=== PATIENT | female | born 1955 | race Caucasian/White ===

== ENCOUNTER 2016-12-22 22:29 | Emergency (ER) | payer MEDICARE, OTHER ==
[~2016-12-22 22:29] MED LIST: ACET30TAB PO; ACET50TAOT PO; ALLO100T PO; ASCO500T PO; ASPI81TA21 PO; ASPI81TA85 PO; BACT800T5 PO; CETI10TA PO; CETI1SYP16 PO; CETI5TAB2 PO; CIPR500T89 PO; CYMB60CA3 PO; DIAB5TAB PO; DRIS50002 PO; DULO30CA PO; FERR325T3 PO; FLAG500T PO; FURO40TA2 PO; GABA300C3 PO; GLYB5TA PO; HEPA100SY IV; HYDROCODONE/ACETA PO; HYDROCORTISONE PR; IBUP80TA PO; INSUDET SC; INSUH10VL SC; INSUHUMDS SC; KEFL500C7 PO; LANTINJ4 SC; LEVA500T PO; LISI-538 PO; LISI-542 PO; LISI10TA4 PO; MECL-68 PO; MESA24CASA PO; METO-207 PO; NYST100024 TOP; NYST10CR TOP; OMEP20CA3 PO; OXYC1TAB23 PO; PERCOCET PO; PRAMOXINE PR; ROPI0.5T PO; ROPI1TAB PO; SALI0.9I2 IV; SIMV10TA2 PO; SIMV20TA2 PO; SIMV40TA2 PO; TRAM50TA2 PO; TYLE167L PO; TYLE1TAB5 PO; VANC10IN IV; VITA1CHW5 PO; ZYVO100T PO
[2016-12-22] MEDS ORDERED: LIDOCAINE 2% MDV 20 ML VIAL As Ordered ONE (23:43)
[2016-12-22] MEDS ORDERED: MORPHINE 4 MG/ML 1ML SYRINGE As Ordered ONE (23:43)
[2016-12-22] MEDS ORDERED: CLINDAMYCIN INJ 900MG/6ML VIAL As Ordered ONE (23:43)
[2016-12-22 23:44] LABS: BASO % 0.4 % (0.0-1.0); EOS # 0.2 K/mm3 (0.0-0.50); EOS % 2.6 % (0.0-3.0); LARGE UNSTAINED CELL # 0.2 K/mm3 (0.0-0.4); LARGE UNSTAINED CELL % 3.2 % (0.0-4.0); LYMPH # 1.6 K/mm3 (1.5-4.5); LYMPH % 25.5 % (24.0-44.0); MEAN CORPUSCULAR HEMOGLOBIN 29.6 pg (27.0-33.0); MEAN CORPUSCULAR HGB CONC 31.7 g/dl (32.0-36.5); MEAN CORPUSCULAR VOLUME 93.3 fl (80.0-96.0); MONO # 0.5 K/mm3 (0.0-0.8); MONO % 7.7 % (0.0-5.0); NEUTROPHILS # 3.7 K/mm3 (1.8-7.7); NEUTROPHILS % 60.6 % (36.0-66.0); PLATELET COUNT, AUTOMATED 119 k/mm3 (150-450); RED CELL DISTRIBUTION WIDTH 15.3 % (11.5-14.5); WHITE BLOOD COUNT 6.2 K/mm3 (4.0-10.0)
[2016-12-22] MEDS ORDERED: ONDANSETRON 4MG/2ML VIAL (J2405) As Ordered ONE (23:44)
[2016-12-23 00:09] LABS: ANION GAP 7 MEQ/L (8-16); BLOOD UREA NITROGEN 7 MG/DL (7-18); CALCIUM LEVEL 8.2 MG/DL (8.5-10.1); CARBON DIOXIDE LEVEL 29 MEQ/L (21-32); CHLORIDE LEVEL 100 MEQ/L (98-107); CREATININE FOR GFR 0.85 MG/DL (0.55-1.02); GLOMERULAR FILTRATION RATE > 60.0 (>51); SODIUM LEVEL 136 MEQ/L (136-145)
[2016-12-23 00:11] LABS: GLUCOSE, FASTING 414 MG/DL (70-105)
[2016-12-23] MEDS ORDERED: HumuLIN R (REGULAR) INSULIN (NovoLIN R) **100U/ML** PER UNIT As Ordered ONE (01:02)
--- NOTE | 2016-12-23 01:40 | EDDOCDS ---
Physician Documentation [facility] Name: Christina Ngo Age: 61 yrs Sex: Female : 1955 Arrival Date: 12/22/2016 Time: 22:29 Bed I9 Private MD: Ed Mata Disposition: 12/23/16 01:00 Discharged to Home/Self Care. Impression: Abscess of vulva, Cellulitis of abdominal wall - genital area. - Condition is Stable. - Discharge Instructions: Abscess, Cellulitis, Incision and Drainage. - Prescriptions for Clindamycin HCl 300 mg Oral Capsule - take 1 capsule by ORAL route every 6 hours; 40 capsule. [place] 5- 325 mg Oral Tablet - take 1 tablet by ORAL route every 6 hours As needed MDD: 4 tabs; 12 tablet. - Medication Reconciliation, Local Pharmacy Hours form. - Follow up: Emergency Department; When: 1 - 2 days; Reason: Recheck today's complaints, Continuance of care. - Problem is new. - Symptoms have improved. Historical: - Allergies: no known allergies; - Home Meds: 1. allopurinol 100 mg Oral tab 1 tab once daily for Gout 2. levamir 45 unit twice a day 3. lisinopril 10 mg Oral tab 1 tab once daily 4. Novolog 100 unit/mL Sub-Q soln 15 unit sliding scale 5. omeprazole 20 mg Oral cpDR 1 cap once daily ran out 6. Enbrel 25 mg (1 mL) SubQ solr 1 mL 2 times per wk - PMHx: Arthritis; Diabetes - IDDM: controlled; Diabetic Neuropathy; Diverticulitis; GERD; Gout; Hypercholesterolemia; Hypertension; restless leg syndrome; SBO; Vertigo; Psoriasis; - PSHx: Cholecystectomy; Colonoscopy; foot surgery; Tonsillectomy; Adenoidectomy; - Social history: Smoking status: Patient states former smoker of tobacco. No barriers to communication noted, The patient speaks fluent Lithuanian. - Family history: Not pertinent. - : The pt / caregiver states he / she is not on anticoagulants. Home medication list is obtained from the patient. - Exposure Risk Screening:: None identified. Vital Signs: 12/22 22:31 BP 151 / 78; Pulse 100; Resp 18 S; Temp 99.1(O); Pulse Ox 98% on R/A; Weight 93.44 kg / gr2 206 lbs (R); Height 5 ft. 4 in. (162.56 cm) (R); Pain 7/10; 12/23 01:34 BP 135 / 68; Pulse 88; Resp 18; Temp 98.7(O); Pulse Ox 95% on R/A; kmg1 12/22 22:31 Body Mass Index 35.36 (93.44 kg, 162.56 cm) gr2 Procedures: 00:05 I & D: Incision and drainage was performed for an abscess of the right vulva with mo1 surrounding STS and cellulitis, no perirectal involvement Prepped with hibiclens. Anesthetized with 2 ml's 2% Lidocaine. Incised with #11 blade. Drained large amount Loculations removed. Cultures obtained. Abscess cavity explored. Packed with iodoform gauze, the patient tolerated the procedure well. MDM: 12/22 23:03 IV Saline Lock ordered. mo1 23:03 -Blood Culture (Adults Only), peripheral from different site, or from device/port/PICC mo1 etc. if present ordered. 23:03 morphine 4 mg IVP once ordered. mo1 23:03 Clindamycin 900 mg IVPB once over 30 mins; dilute in 50mL of NS or D5W ordered. mo1 23:03 NS 0.9% 500 ml IV at bolus once ordered. mo1 23:04 CBC with Diff Ordered. EDMS 23:04 BMP Ordered. EDMS 23:05 -Blood Culture Ordered. EDMS 23:05 Wound Culture - All Other Sources Ordered. EDMS 23:13 -Blood Culture (Adults Only), peripheral from different site, or from device/port/PICC ml3 etc. if present complete. 23:14 BLOOD CULTURES Ordered. EDMS 23:23 Ondansetron 4 mg IVP once ordered. mo1 23:34 Lidocaine 20 mg/mL (2 %) 10 ml Infiltration once; to bedside ordered. mo1 12/23 00:23 Financial registration complete. hs2 00:35 BMP Reviewed. mo1 00:35 CBC with Diff Reviewed. mo1 00:40 Insulin Regular Human 5 units Sub-Q once ordered. mo1 01:19 [facility] Payment Agreement was scanned into [employer] and attached to record. hs2 Administered Medications: 00:00 Drug: morphine 4 mg [morphine 4 mg/mL intravenous cartridge (1 mL)] Route: IVP; Site: [facility] right antecubital; 00:00 Drug: Ondansetron 4 mg [ondansetron HCl 2 mg/mL intravenous solution (2 mL)] Route: kmg1 IVP; Site: right antecubital; 00:00 Drug: Lidocaine 10 ml [lidocaine 20 mg/mL (2 %) injection solution (10 mL)] {Note: By [facility] PA.} Route: Infiltration; 00:28 Drug: NS 0.9% 500 ml [sodium chloride 0.9 % intravenous solution] Route: IV; Rate: kmg1 bolus; Site: right antecubital; 00:29 Drug: Clindamycin 900 mg Route: IVPB; Infused Over: 30 mins; Site: right antecubital; [facility] 01:08 Drug: Insulin Regular Human 5 units [insulin regular human 100 unit/mL injection [facility] solution (0.05 mL)] {Co-Signature: cf2 (Darlene Hernandez RN).} Route: Sub-Q; Site: left upper arm; Signatures: Dispatcher [employer] Shira José, RN RN g1 Caleb Callaway, Metal Fabricating Inspector Unit ml3 Genevieve Calixto RN RN rs3 Juan Grant PA PA mo1 Haydee Abbasi, Reg Reg hs2 Darlene Hernandez RN cf2 The chart was reviewed and I authenticate all verbal orders and agree with the evaluation and treatment provided.Attachments: 01:19 [facility] Payment Agreement hs2 MTDD
--- NOTE | 2016-12-23 01:41 | EDDOCDS ---
Nurse's Notes [facility] Name: Christina Ngo Age: 61 yrs Sex: Female : 1955 Arrival Date: 12/22/2016 Time: 22:29 Bed I9 Private MD: Ed Mata Diagnosis: Abscess of vulva;Cellulitis of abdominal wall-genital area Presentation: 12/22 22:41 Presenting complaint: Patient states: lump on perineum since Monday. getting worse rs3 progressively, redness, swelling spread to right buttock. Adult Sepsis Screening: The patient does not have new or worsening altered mentation. Patient's respiratory rate is less than 22. Systolic blood pressure is greater than 100. Patient has a qSOFA score of 0- Negative Sepsis Screen. Suicide/Homicide risk assessment- the patient denies having any suicidal and/or homicidal ideations and does not present with any other emotional, behavioral or mental health complaints. Status: Patient is not a general service technician or dependent. Transition of care: patient was not received from another setting of care. 22:41 Acuity: MARGARITA Level 3 rs3 22:41 Method Of Arrival: Walkin/Carried/Asstd rs3 Triage Assessment: 22:46 General: Appears in no apparent distress. Pain: Location: pelvis. HIV screening NA for rs3 this visit Offered previously. Historical: - Allergies: no known allergies; - Home Meds: 1. allopurinol 100 mg Oral tab 1 tab once daily for Gout 2. levamir 45 unit twice a day 3. lisinopril 10 mg Oral tab 1 tab once daily 4. Novolog 100 unit/mL Sub-Q soln 15 unit sliding scale 5. omeprazole 20 mg Oral cpDR 1 cap once daily ran out 6. Enbrel 25 mg (1 mL) SubQ solr 1 mL 2 times per wk - PMHx: Arthritis; Diabetes - IDDM: controlled; Diabetic Neuropathy; Diverticulitis; GERD; Gout; Hypercholesterolemia; Hypertension; restless leg syndrome; SBO; Vertigo; Psoriasis; - PSHx: Cholecystectomy; Colonoscopy; foot surgery; Tonsillectomy; Adenoidectomy; - Social history: Smoking status: Patient states former smoker of tobacco. No barriers to communication noted, The patient speaks fluent Albanian. - Family history: Not pertinent. - : The pt / caregiver states he / she is not on anticoagulants. Home medication list is obtained from the patient. - Exposure Risk Screening:: None identified. Screenin/10 01:34 Screening information is obtained from the patient. Fall risk: No risks identified. kmg1 Assistance ADL's: requires no assistance with activities of daily living. Abuse/DV Screen: The patient / caregiver reports he/she is: not in a situation that causes fear, pain or injury. Nutritional screening: No deficits noted. Advance Directives: There is no active DNR order. home support is adequate. Assessment: 00:00 General: Appears in no apparent distress, comfortable, Behavior is appropriate for age, kmg1 cooperative, pleasant. Pain: Location: right labia majora Pain currently is 7 out of 10 on a pain scale. Quality of pain is described as burning, pressure, sharp, stabbing. Derm: Abscess located on right labia majora is golf ball sized. 01:34 General: Appears in no apparent distress, comfortable, Behavior is appropriate for age, kmg1 crying, pleasant. General: Peripad in place. Wound draining small amount of blood tinge drainage. Pain: Location: right labia majora Pain currently is 3 out of 10 on a pain scale. Vital Signs: 02 22:31 BP 151 / 78; Pulse 100; Resp 18 S; Temp 99.1(O); Pulse Ox 98% on R/A; Weight 93.44 kg gr2 (R); Height 5 ft. 4 in. (162.56 cm) (R); Pain 7/10; 02 01:34 BP 135 / 68; Pulse 88; Resp 18; Temp 98.7(O); Pulse Ox 95% on R/A; kmg1 12/22 22:31 Body Mass Index 35.36 (93.44 kg, 162.56 cm) gr2 Vitals: 12/22 22:31 Log In Time: December 22, 2016 at 22:31. gr2 ED Course: 22:31 Patient visited by Dc Coates. gr2 22:31 Gopi Cuadra is Private Physician. gr2 22:31 Ed Mata DO is Private Physician. gr2 22:31 Patient moved to Waiting gr2 22:36 Patient visited by Dc Coates. gr2 22:37 Patient moved to Pre RCE gr2 22:43 Triage Initiated rs3 22:47 Patient moved to Triage 3 mdr 22:47 Patient moved to Pre RCE mdr 22:48 Patient moved to Triage 3 mdr 22:51 Juan Grant PA is PHCP. mo1 22:51 Chris Ascencio DO is Attending Physician. mo1 23:01 Patient moved to I cz 23:04 Patient visited by Juan Grant PA. mo1 23:38 CBC with Diff Sent. kmg1 23:38 BMP Sent. kmg1 23:38 -Blood Culture Sent. kmg1 23:38 Inserted saline lock: 18 gauge in right antecubital area. kmg1 02 00:00 Assist provider with I & D: of an abscess on groin abscess Set up I&D tray. Performed kmg1 by Juan KILLIAN Culture sent to lab. Wound packed. iodoform gauze, Dressing with peripad Patient tolerated well. 00:13 Notified physician's operations assistant of glucose 414. cz 01:19 [facility] Payment Agreement was scanned into [employer] and attached to record. hs2 01:34 The patient / caregiver is instructed regarding the plan of care and ED course. kmg1 01:34 Discontinued lock bleeding controlled, pressure dressing applied, No redness/swelling kmg1 at site. Administered Medications: 00:00 Drug: morphine 4 mg [morphine 4 mg/mL intravenous cartridge (1 mL)] Route: IVP; Site: [facility] [place] right antecubital; 00:00 Drug: Ondansetron 4 mg [ondansetron HCl 2 mg/mL intravenous solution (2 mL)] Route: kmg1 IVP; Site: right antecubital; 00:00 Drug: Lidocaine 10 ml [lidocaine 20 mg/mL (2 %) injection solution (10 mL)] {Note: By jonathan PA.} Route: Infiltration; 00:28 Drug: NS 0.9% 500 ml [sodium chloride 0.9 % intravenous solution] Route: IV; Rate: kmg1 bolus; Site: right antecubital; 00:29 Drug: Clindamycin 900 mg Route: IVPB; Infused Over: 30 mins; Site: right antecubital; kmg1 01:08 Drug: Insulin Regular Human 5 units [insulin regular human 100 unit/mL injection kmg1 solution (0.05 mL)] {Co-Signature: cf2 (Darlene Hernandez RN).} Route: Sub-Q; Site: left upper arm; Order Results: Lab Order: CBC with Diff; SPEC'M 12/22/16 23:35 Test: WHITE BLOOD COUNT; Value: 6.2; Range: 4.0-10.0; Units: K/mm3; Status: F Test: RED BLOOD COUNT; Value: 4.20; Range: 4.00-5.40; Units: M/mm3; Status: F Test: HEMOGLOBIN; Value: 12.4; Range: 12.0-16.0; Units: g/dl; Status: F Test: HEMATOCRIT; Value: 39.2; Range: 36.0-47.0; Units: %; Status: F Test: MEAN CORPUSCULAR VOLUME; Value: 93.3; Range: 80.0-96.0; Units: fl; Status: F Test: MEAN CORPUSCULAR HEMOGLOBIN; Value: 29.6; Range: 27.0-33.0; Units: pg; Status: F Test: MEAN CORPUSCULAR HGB CONC; Value: 31.7; Range: 32.0-36.5; Abnormal: Below low normal; Units: g/dl; Status: F Test: RED CELL DISTRIBUTION WIDTH; Value: 15.3; Range: 11.5-14.5; Abnormal: Above high normal; Units: %; Status: F Test: PLATELET COUNT, AUTOMATED; Value: 119; Range: 150-450; Abnormal: Below low normal; Units: k/mm3; Status: F Test: NEUTROPHILS %; Value: 60.6; Range: 36.0-66.0; Units: %; Status: F Test: LYMPH %; Value: 25.5; Range: 24.0-44.0; Units: %; Status: F Test: MONO %; Value: 7.7; Range: 0.0-5.0; Abnormal: Above high normal; Units: %; Status: F Test: EOS %; Value: 2.6; Range: 0.0-3.0; Units: %; Status: F Test: BASO %; Value: 0.4; Range: 0.0-1.0; Units: %; Status: F Test: LARGE UNSTAINED CELL %; Value: 3.2; Range: 0.0-4.0; Units: %; Status: F Test: NEUTROPHILS #; Value: 3.7; Range: 1.8-7.7; Units: K/mm3; Status: F Test: LYMPH #; Value: 1.6; Range: 1.5-4.5; Units: K/mm3; Status: F Test: MONO #; Value: 0.5; Range: 0.0-0.8; Units: K/mm3; Status: F Test: EOS #; Value: 0.2; Range: 0.0-0.50; Units: K/mm3; Status: F Test: BASO #; Value: 0.0; Range: 0.0-0.2; Units: K/mm3; Status: F Test: LARGE UNSTAINED CELL #; Value: 0.2; Range: 0.0-0.4; Units: K/mm3; Status: F Lab Order: [facility]; SPEC'M 12/22/16 23:35 Test: GLUCOSE, FASTING; Value: 414; Range: 70-105; Abnormal: Above upper panic limits; Units: MG/DL; Status: F Test: BLOOD UREA NITROGEN; Value: 7; Range: 7-18; Units: MG/DL; Status: F Test: CREATININE FOR GFR; Value: 0.85; Range: 0.55-1.02; Units: MG/DL; Status: F Test: GLOMERULAR FILTRATION RATE; Value: > 60.0; Range: >51; Status: F Test: SODIUM LEVEL; Value: 136; Range: 136-145; Units: MEQ/L; Status: F Test: POTASSIUM SERUM; Value: 4.0; Range: 3.5-5.1; Units: MEQ/L; Status: F Test: CHLORIDE LEVEL; Value: 100; Range: 98-107; Units: MEQ/L; Status: F Test: CARBON DIOXIDE LEVEL; Value: 29; Range: 21-32; Units: MEQ/L; Status: F Test: ANION GAP; Value: 7; Range: 8-16; Abnormal: Below low normal; Units: MEQ/L; Status: F Test: CALCIUM LEVEL; Value: 8.2; Range: 8.5-10.1; Abnormal: Below low normal; Units: MG/DL; Status: F Test Note: ; Units are mL/min/1.73 m2 Chronic Kidney Disease Staging per NKF: Stage I & II GFR >=60 Normal to Mildly Decreased Stage III GFR 30-59 Moderately Decreased Stage IV GFR 15-29 Severely Decreased Stage V GFR <15 Very Little GFR Left ESRD GFR <15 on TOP FORMER Outcome: 01:00 Discharge ordered by Provider. mo1 01:34 Discharge Assessment: Patient awake, alert and oriented x 3. No cognitive and/or kmg1 functional deficits noted. Patient verbalized understanding of disposition instructions. Patient awake and alert. patient administered narcotics - yes. Pt provided with safe discharge. The following High Risk Discharge criteria are identified: None. Discharged to home ambulatory, with friend. Condition: stable. Discharge instructions given to patient, Instructed on discharge instructions, follow up and referral plans. medication usage, Use of warm compresses to the affected area, Demonstrated understanding of instructions, medications, Pt was receptive of discharge instructions/ teaching. Prescriptions given X 2. No special radiology studies were completed. Property sent home with patient. 01:39 Patient left the ED. [facility] [place] Signatures: Shira Grider, RN RN kmg1 Matthias Man, RN RN Genevieve Chaves RN RN rs3 Dc Coates gr2 Juan Grant PA PA mo1 Caden Zaragoza, CHERYL WINDMILL MECHANIC Haydee Alexandre, Ernst Reg hs2 Darlene Hernandez RN cf2 MTDD
--- NOTE | 2016-12-25 02:41 | EDDOCDS ---
Physician Documentation [facility] Name: Christina Ngo Age: 61 yrs Sex: Female : 1955 Arrival Date: 12/22/2016 Time: 22:29 Bed I9 Private MD: Ed Mata Disposition: 12/23/16 01:00 Discharged to Home/Self Care. Impression: Abscess of vulva, Cellulitis of abdominal wall - genital area. - Condition is Stable. - Discharge Instructions: Abscess, Cellulitis, Incision and Drainage. - Prescriptions for Clindamycin HCl 300 mg Oral Capsule - take 1 capsule by ORAL route every 6 hours; 40 capsule. [place] 5- 325 mg Oral Tablet - take 1 tablet by ORAL route every 6 hours As needed MDD: 4 tabs; 12 tablet. - Medication Reconciliation, Local Pharmacy Hours form. - Follow up: Emergency Department; When: 1 - 2 days; Reason: Recheck today's complaints, Continuance of care. - Problem is new. - Symptoms have improved. Historical: - Allergies: no known allergies; - Home Meds: 1. allopurinol 100 mg Oral tab 1 tab once daily for Gout 2. levamir 45 unit twice a day 3. lisinopril 10 mg Oral tab 1 tab once daily 4. Novolog 100 unit/mL Sub-Q soln 15 unit sliding scale 5. omeprazole 20 mg Oral cpDR 1 cap once daily ran out 6. Enbrel 25 mg (1 mL) SubQ solr 1 mL 2 times per wk - PMHx: Arthritis; Diabetes - IDDM: controlled; Diabetic Neuropathy; Diverticulitis; GERD; Gout; Hypercholesterolemia; Hypertension; restless leg syndrome; SBO; Vertigo; Psoriasis; - PSHx: Cholecystectomy; Colonoscopy; foot surgery; Tonsillectomy; Adenoidectomy; - Social history: Smoking status: Patient states former smoker of tobacco. No barriers to communication noted, The patient speaks fluent Kazakh. - Family history: Not pertinent. - : The pt / caregiver states he / she is not on anticoagulants. Home medication list is obtained from the patient. - Exposure Risk Screening:: None identified. Vital Signs: 12/22 22:31 BP 151 / 78; Pulse 100; Resp 18 S; Temp 99.1(O); Pulse Ox 98% on R/A; Weight 93.44 kg / gr2 206 lbs (R); Height 5 ft. 4 in. (162.56 cm) (R); Pain 7/10; 12/23 01:34 BP 135 / 68; Pulse 88; Resp 18; Temp 98.7(O); Pulse Ox 95% on R/A; kmg1 12/22 22:31 Body Mass Index 35.36 (93.44 kg, 162.56 cm) gr2 Procedures: 00:05 I & D: Incision and drainage was performed for an abscess of the right vulva with mo1 surrounding STS and cellulitis, no perirectal involvement Prepped with hibiclens. Anesthetized with 2 ml's 2% Lidocaine. Incised with #11 blade. Drained large amount Loculations removed. Cultures obtained. Abscess cavity explored. Packed with iodoform gauze, the patient tolerated the procedure well. MDM: 12/22 23:03 IV Saline Lock ordered. mo1 23:03 -Blood Culture (Adults Only), peripheral from different site, or from device/port/PICC mo1 etc. if present ordered. 23:03 morphine 4 mg IVP once ordered. mo1 23:03 Clindamycin 900 mg IVPB once over 30 mins; dilute in 50mL of NS or D5W ordered. mo1 23:03 NS 0.9% 500 ml IV at bolus once ordered. mo1 23:04 CBC with Diff Ordered. EDMS 23:04 BMP Ordered. EDMS 23:05 -Blood Culture Ordered. EDMS 23:05 Wound Culture - All Other Sources Ordered. EDMS 23:13 -Blood Culture (Adults Only), peripheral from different site, or from device/port/PICC ml3 etc. if present complete. 23:14 BLOOD CULTURES Ordered. EDMS 23:23 Ondansetron 4 mg IVP once ordered. mo1 23:34 Lidocaine 20 mg/mL (2 %) 10 ml Infiltration once; to bedside ordered. mo1 12/23 00:23 Financial registration complete. hs2 00:35 BMP Reviewed. mo1 00:35 CBC with Diff Reviewed. mo1 00:40 Insulin Regular Human 5 units Sub-Q once ordered. mo1 01:19 [facility] [place] Payment Agreement was scanned into [employer] and attached to record. hs2 09:49 T-Sheet-- Draft Copy was scanned into [employer] and attached to record. gb 12/24 20:58 [facility] Payment Agreement was scanned into [employer] and attached to record. [email or web address] Administered Medications: 12/23 00:00 Drug: morphine 4 mg [morphine 4 mg/mL intravenous cartridge (1 mL)] Route: IVP; [place] [facility] [place]; 00:00 Drug: Ondansetron 4 mg [ondansetron HCl 2 mg/mL intravenous solution (2 mL)] Route: kmg1 IVP; Site: right antecubital; 00:00 Drug: Lidocaine 10 ml [lidocaine 20 mg/mL (2 %) injection solution (10 mL)] {Note: [place] [facility] [place] Route: Infiltration; 00:28 Drug: NS 0.9% 500 ml [sodium chloride 0.9 % intravenous solution] Route: IV; Rate: kmg1 bolus; Site: right antecubital; 00:29 Drug: Clindamycin 900 mg Route: IVPB; Infused Over: 30 mins; Site: right antecubital; [facility] [place]:08 Drug: Insulin Regular Human 5 units [insulin regular human 100 unit/mL injection [facility] solution (0.05 mL)] {Co-Signature: cf2 (Darlene Hernandez RN).} Route: Sub-Q; Site: left upper arm; Signatures: Dispatcher [employer] Shira José RN RN kmg1 Em Hidalgo, Reg Reg gb CesiaJaneneMaricel, Rail Washer Unit ml3 Genevieve Calixto RN RN rs3 Juan Grant PA PA mo1 Nirmala Anand, Reg Reg ks16 Haydee Abbasi, Reg Reg hs2 Darlene Hernandez RN cf2 The chart was reviewed and I authenticate all verbal orders and agree with the evaluation and treatment provided.Attachments: 01:19 [facility] [place] Payment Agreement hs2 09:49 T-Sheet-- Draft Copy 12/24 20:58 [facility] Payment Agreement [email or web address] Chart Complete MTDD
--- NOTE | 2016-12-25 02:41 | EDDOCDS ---
Physician Documentation [facility] Name: Christina Ngo Age: 61 yrs Sex: Female : 1955 Arrival Date: 12/22/2016 Time: 22:29 Bed I9 Private MD: Ed Mata Disposition: 12/23/16 01:00 Discharged to Home/Self Care. Impression: Abscess of vulva, Cellulitis of abdominal wall - genital area. - Condition is Stable. - Discharge Instructions: Abscess, Cellulitis, Incision and Drainage. - Prescriptions for Clindamycin HCl 300 mg Oral Capsule - take 1 capsule by ORAL route every 6 hours; 40 capsule. [place] 5- 325 mg Oral Tablet - take 1 tablet by ORAL route every 6 hours As needed MDD: 4 tabs; 12 tablet. - Medication Reconciliation, Local Pharmacy Hours form. - Follow up: Emergency Department; When: 1 - 2 days; Reason: Recheck today's complaints, Continuance of care. - Problem is new. - Symptoms have improved. Historical: - Allergies: no known allergies; - Home Meds: 1. allopurinol 100 mg Oral tab 1 tab once daily for Gout 2. levamir 45 unit twice a day 3. lisinopril 10 mg Oral tab 1 tab once daily 4. Novolog 100 unit/mL Sub-Q soln 15 unit sliding scale 5. omeprazole 20 mg Oral cpDR 1 cap once daily ran out 6. Enbrel 25 mg (1 mL) SubQ solr 1 mL 2 times per wk - PMHx: Arthritis; Diabetes - IDDM: controlled; Diabetic Neuropathy; Diverticulitis; GERD; Gout; Hypercholesterolemia; Hypertension; restless leg syndrome; SBO; Vertigo; Psoriasis; - PSHx: Cholecystectomy; Colonoscopy; foot surgery; Tonsillectomy; Adenoidectomy; - Social history: Smoking status: Patient states former smoker of tobacco. No barriers to communication noted, The patient speaks fluent Macedonian. - Family history: Not pertinent. - : The pt / caregiver states he / she is not on anticoagulants. Home medication list is obtained from the patient. - Exposure Risk Screening:: None identified. Vital Signs: 12/22 22:31 BP 151 / 78; Pulse 100; Resp 18 S; Temp 99.1(O); Pulse Ox 98% on R/A; Weight 93.44 kg / gr2 206 lbs (R); Height 5 ft. 4 in. (162.56 cm) (R); Pain 7/10; 12/23 01:34 BP 135 / 68; Pulse 88; Resp 18; Temp 98.7(O); Pulse Ox 95% on R/A; kmg1 12/22 22:31 Body Mass Index 35.36 (93.44 kg, 162.56 cm) gr2 Procedures: 00:05 I & D: Incision and drainage was performed for an abscess of the right vulva with mo1 surrounding STS and cellulitis, no perirectal involvement Prepped with hibiclens. Anesthetized with 2 ml's 2% Lidocaine. Incised with #11 blade. Drained large amount Loculations removed. Cultures obtained. Abscess cavity explored. Packed with iodoform gauze, the patient tolerated the procedure well. MDM: 12/22 23:03 IV Saline Lock ordered. mo1 23:03 -Blood Culture (Adults Only), peripheral from different site, or from device/port/PICC mo1 etc. if present ordered. 23:03 morphine 4 mg IVP once ordered. mo1 23:03 Clindamycin 900 mg IVPB once over 30 mins; dilute in 50mL of NS or D5W ordered. mo1 23:03 NS 0.9% 500 ml IV at bolus once ordered. mo1 23:04 CBC with Diff Ordered. EDMS 23:04 BMP Ordered. EDMS 23:05 -Blood Culture Ordered. EDMS 23:05 Wound Culture - All Other Sources Ordered. EDMS 23:13 -Blood Culture (Adults Only), peripheral from different site, or from device/port/PICC ml3 etc. if present complete. 23:14 BLOOD CULTURES Ordered. EDMS 23:23 Ondansetron 4 mg IVP once ordered. mo1 23:34 Lidocaine 20 mg/mL (2 %) 10 ml Infiltration once; to bedside ordered. mo1 12/23 00:23 Financial registration complete. hs2 00:35 BMP Reviewed. mo1 00:35 CBC with Diff Reviewed. mo1 00:40 Insulin Regular Human 5 units Sub-Q once ordered. mo1 01:19 [facility] [place] Payment Agreement was scanned into [employer] and attached to record. hs2 09:49 T-Sheet-- Draft Copy was scanned into [employer] and attached to record. gb 12/24 20:58 [facility] Payment Agreement was scanned into [employer] and attached to record. [email or web address] Administered Medications: 12/23 00:00 Drug: morphine 4 mg [morphine 4 mg/mL intravenous cartridge (1 mL)] Route: IVP; [place] [facility] [place]; 00:00 Drug: Ondansetron 4 mg [ondansetron HCl 2 mg/mL intravenous solution (2 mL)] Route: kmg1 IVP; Site: right antecubital; 00:00 Drug: Lidocaine 10 ml [lidocaine 20 mg/mL (2 %) injection solution (10 mL)] {Note: [place] [facility] [place] Route: Infiltration; 00:28 Drug: NS 0.9% 500 ml [sodium chloride 0.9 % intravenous solution] Route: IV; Rate: kmg1 bolus; Site: right antecubital; 00:29 Drug: Clindamycin 900 mg Route: IVPB; Infused Over: 30 mins; Site: right antecubital; [facility] [place]:08 Drug: Insulin Regular Human 5 units [insulin regular human 100 unit/mL injection [facility] [place] (0.05 mL)] {Co-Signature: cf2 (Darlene Hernandez RN).} Route: Sub-Q; Site: left upper arm; Signatures: Dispatcher [employer] Shira José RN RN kmg1 Em Hidalgo, Reg Reg gb CesiaJaneneMaricel, Petroleum Products Sales Representative Unit ml3 Genevieve Calixto RN RN rs3 Juan Grant PA PA mo1 Nirmala Anand, Reg Reg ks16 Haydee Abbasi, Reg Reg hs2 Darlene Hernandez RN cf2 The chart was reviewed and I authenticate all verbal orders and agree with the evaluation and treatment provided.Attachments: 01:19 [facility] [place] [facility] Payment Agreement hs2 09:49 T-Sheet-- Draft Copy 12/24 20:58 [facility] Payment Agreement [email or web address] Chart Complete MTDD
--- NOTE | 2016-12-25 02:41 | EDDOCDS ---
Nurse's Notes [facility] Name: Christina Ngo Age: 61 yrs Sex: Female : 1955 Arrival Date: 12/22/2016 Time: 22:29 Bed I9 Private MD: Ed Mata Diagnosis: Abscess of vulva;Cellulitis of abdominal wall-genital area Presentation: 12/22 22:41 Presenting complaint: Patient states: lump on perineum since Monday. getting worse rs3 progressively, redness, swelling spread to right buttock. Adult Sepsis Screening: The patient does not have new or worsening altered mentation. Patient's respiratory rate is less than 22. Systolic blood pressure is greater than 100. Patient has a qSOFA score of 0- Negative Sepsis Screen. Suicide/Homicide risk assessment- the patient denies having any suicidal and/or homicidal ideations and does not present with any other emotional, behavioral or mental health complaints. Status: Patient is not a street light servicer helper or dependent. Transition of care: patient was not received from another setting of care. 22:41 Acuity: MARGARITA Level 3 rs3 22:41 Method Of Arrival: Walkin/Carried/Asstd rs3 Triage Assessment: 22:46 General: Appears in no apparent distress. Pain: Location: pelvis. HIV screening NA for rs3 this visit Offered previously. Historical: - Allergies: no known allergies; - Home Meds: 1. allopurinol 100 mg Oral tab 1 tab once daily for Gout 2. levamir 45 unit twice a day 3. lisinopril 10 mg Oral tab 1 tab once daily 4. Novolog 100 unit/mL Sub-Q soln 15 unit sliding scale 5. omeprazole 20 mg Oral cpDR 1 cap once daily ran out 6. Enbrel 25 mg (1 mL) SubQ solr 1 mL 2 times per wk - PMHx: Arthritis; Diabetes - IDDM: controlled; Diabetic Neuropathy; Diverticulitis; GERD; Gout; Hypercholesterolemia; Hypertension; restless leg syndrome; SBO; Vertigo; Psoriasis; - PSHx: Cholecystectomy; Colonoscopy; foot surgery; Tonsillectomy; Adenoidectomy; - Social history: Smoking status: Patient states former smoker of tobacco. No barriers to communication noted, The patient speaks fluent Belarusian. - Family history: Not pertinent. - : The pt / caregiver states he / she is not on anticoagulants. Home medication list is obtained from the patient. - Exposure Risk Screening:: None identified. Screenin/10 01:34 Screening information is obtained from the patient. Fall risk: No risks identified. kmg1 Assistance ADL's: requires no assistance with activities of daily living. Abuse/DV Screen: The patient / caregiver reports he/she is: not in a situation that causes fear, pain or injury. Nutritional screening: No deficits noted. Advance Directives: There is no active DNR order. home support is adequate. Assessment: 00:00 General: Appears in no apparent distress, comfortable, Behavior is appropriate for age, kmg1 cooperative, pleasant. Pain: Location: right labia majora Pain currently is 7 out of 10 on a pain scale. Quality of pain is described as burning, pressure, sharp, stabbing. Derm: Abscess located on right labia majora is golf ball sized. 01:34 General: Appears in no apparent distress, comfortable, Behavior is appropriate for age, kmg1 crying, pleasant. General: Peripad in place. Wound draining small amount of blood tinge drainage. Pain: Location: right labia majora Pain currently is 3 out of 10 on a pain scale. Vital Signs: 02 22:31 BP 151 / 78; Pulse 100; Resp 18 S; Temp 99.1(O); Pulse Ox 98% on R/A; Weight 93.44 kg gr2 (R); Height 5 ft. 4 in. (162.56 cm) (R); Pain 7/10; 02 01:34 BP 135 / 68; Pulse 88; Resp 18; Temp 98.7(O); Pulse Ox 95% on R/A; kmg1 12/22 22:31 Body Mass Index 35.36 (93.44 kg, 162.56 cm) gr2 Vitals: 12/22 22:31 Log In Time: December 22, 2016 at 22:31. gr2 ED Course: 22:31 Patient visited by Dc Coates. gr2 22:31 Gopi Cuadra is Private Physician. gr2 22:31 Ed Mata DO is Private Physician. gr2 22:31 Patient moved to Waiting gr2 22:36 Patient visited by Dc Coates. gr2 22:37 Patient moved to Pre RCE gr2 22:43 Triage Initiated rs3 22:47 Patient moved to Triage 3 mdr 22:47 Patient moved to Pre RCE mdr 22:48 Patient moved to Triage 3 mdr 22:51 Juan Grant PA is PHCP. mo1 22:51 Chris Ascencio DO is Attending Physician. mo1 23:01 Patient moved to I9 / cz 23:04 Patient visited by Juan Grant PA. mo1 23:38 CBC with Diff Sent. kmg1 23:38 BMP Sent. kmg1 23:38 -Blood Culture Sent. kmg1 23:38 Inserted saline lock: 18 gauge in right antecubital area. kmg1 12/23 00:00 Assist provider with I & D: of an abscess on groin abscess Set up I&D tray. Performed kmg1 by Juan KILLIAN Culture sent to lab. Wound packed. iodoform gauze, Dressing with peripad Patient tolerated well. 00:13 Notified physician's registered sales assistant of glucose 414. cz 01:19 [facility] [place] was scanned into [employer] and attached to record. hs2 01:34 The patient / caregiver is instructed regarding the plan of care and ED course. kmg1 01:34 Discontinued lock bleeding controlled, pressure dressing applied, No redness/swelling kmg1 at site. 09:49 T-Sheet-- Draft Copy was scanned into [employer] and attached to record. gb 02 20:58 [facility] [place] Agreement was scanned into [employer] and attached to record. [email or web address] Administered Medications: 12/23 00:00 Drug: morphine 4 mg [morphine 4 mg/mL intravenous cartridge (1 mL)] Route: IVP; Site: kmg1 right antecubital; 00:00 Drug: Ondansetron 4 mg [ondansetron HCl 2 mg/mL intravenous solution (2 mL)] Route: kmg1 IVP; Site: right antecubital; 00:00 Drug: Lidocaine 10 ml [lidocaine 20 mg/mL (2 %) injection solution (10 mL)] {Note: By evelina KILLIAN.} Route: Infiltration; 00:28 Drug: NS 0.9% 500 ml [sodium chloride 0.9 % intravenous solution] Route: IV; Rate: kmg1 bolus; Site: right antecubital; 00:29 Drug: Clindamycin 900 mg Route: IVPB; Infused Over: 30 mins; Site: right antecubital; kmg1 01:08 Drug: Insulin Regular Human 5 units [insulin regular human 100 unit/mL injection kmg1 solution (0.05 mL)] {Co-Signature: cf2 (Darlene Hernandez RN).} Route: Sub-Q; Site: left upper arm; Order Results: Lab Order: CBC with Diff; SPEC'M 12/22/16 23:35 Test: WHITE BLOOD COUNT; Value: 6.2; Range: 4.0-10.0; Units: K/mm3; Status: F Test: RED BLOOD COUNT; Value: 4.20; Range: 4.00-5.40; Units: M/mm3; Status: F Test: HEMOGLOBIN; Value: 12.4; Range: 12.0-16.0; Units: g/dl; Status: F Test: HEMATOCRIT; Value: 39.2; Range: 36.0-47.0; Units: %; Status: F Test: MEAN CORPUSCULAR VOLUME; Value: 93.3; Range: 80.0-96.0; Units: fl; Status: F Test: MEAN CORPUSCULAR HEMOGLOBIN; Value: 29.6; Range: 27.0-33.0; Units: pg; Status: F Test: MEAN CORPUSCULAR HGB CONC; Value: 31.7; Range: 32.0-36.5; Abnormal: Below low normal; Units: g/dl; Status: F Test: RED CELL DISTRIBUTION WIDTH; Value: 15.3; Range: 11.5-14.5; Abnormal: Above high normal; Units: %; Status: F Test: PLATELET COUNT, AUTOMATED; Value: 119; Range: 150-450; Abnormal: Below low normal; Units: k/mm3; Status: F Test: NEUTROPHILS %; Value: 60.6; Range: 36.0-66.0; Units: %; Status: F Test: LYMPH %; Value: 25.5; Range: 24.0-44.0; Units: %; Status: F Test: MONO %; Value: 7.7; Range: 0.0-5.0; Abnormal: Above high normal; Units: %; Status: F Test: EOS %; Value: 2.6; Range: 0.0-3.0; Units: %; Status: F Test: BASO %; Value: 0.4; Range: 0.0-1.0; Units: %; Status: F Test: LARGE UNSTAINED CELL %; Value: 3.2; Range: 0.0-4.0; Units: %; Status: F Test: NEUTROPHILS #; Value: 3.7; Range: 1.8-7.7; Units: K/mm3; Status: F Test: LYMPH #; Value: 1.6; Range: 1.5-4.5; Units: K/mm3; Status: F Test: MONO #; Value: 0.5; Range: 0.0-0.8; Units: K/mm3; Status: F Test: EOS #; Value: 0.2; Range: 0.0-0.50; Units: K/mm3; Status: F Test: BASO #; Value: 0.0; Range: 0.0-0.2; Units: K/mm3; Status: F Test: LARGE UNSTAINED CELL #; Value: 0.2; Range: 0.0-0.4; Units: K/mm3; Status: F Lab Order: [facility]; SPEC'M 12/22/16 23:35 Test: GLUCOSE, FASTING; Value: 414; Range: 70-105; Abnormal: Above upper panic limits; Units: MG/DL; Status: F Test: BLOOD UREA NITROGEN; Value: 7; Range: 7-18; Units: MG/DL; Status: F Test: CREATININE FOR GFR; Value: 0.85; Range: 0.55-1.02; Units: MG/DL; Status: F Test: GLOMERULAR FILTRATION RATE; Value: > 60.0; Range: >51; Status: F Test: SODIUM LEVEL; Value: 136; Range: 136-145; Units: MEQ/L; Status: F Test: POTASSIUM SERUM; Value: 4.0; Range: 3.5-5.1; Units: MEQ/L; Status: F Test: CHLORIDE LEVEL; Value: 100; Range: 98-107; Units: MEQ/L; Status: F Test: CARBON DIOXIDE LEVEL; Value: 29; Range: 21-32; Units: MEQ/L; Status: F Test: ANION GAP; Value: 7; Range: 8-16; Abnormal: Below low normal; Units: MEQ/L; Status: F Test: CALCIUM LEVEL; Value: 8.2; Range: 8.5-10.1; Abnormal: Below low normal; Units: MG/DL; Status: F Test Note: ; Units are mL/min/1.73 m2 Chronic Kidney Disease Staging per NKF: Stage I & II GFR >=60 Normal to Mildly Decreased Stage III GFR 30-59 Moderately Decreased Stage IV GFR 15-29 Severely Decreased Stage V GFR <15 Very Little GFR Left ESRD GFR <15 on FOOD HANDLER Lab Order: -Blood Culture; SPEC'M 12/22/16 23:35 Test: BLOOD CULTURE; Value: No growth after 24 hours . All specimens observed; Status: F Test: BLOOD CULTURE; Value: for 5 days. Results final at that time.; Status: F Test: BLOOD CULTURE; Value: No Growth after 48 hours. All Specimens observed; Status: F Test: BLOOD CULTURE; Value: for 7 days. Results final at that time.; Status: F Lab Order: Wound Culture - All Other Sources; SPEC'M 12/23/16 00:13 Test: WOUND CULTURE; Value: <EXTERNAL COMMENT eCWMed> FULL REPORT IN LAB NOTES (eCW and Medent).; Status: F Test: WOUND CULTURE; Value: ORGANISM 1: STAPHYLOCOCCUS AUREUS; Status: F Test: WOUND CULTURE; Value: STAPHYLOCOCCUS AUREUS; Status: F Test: WOUND CULTURE; Value: QUANTITY OF GROWTH HEAVY; Status: F Lab Order: BLOOD CULTURES; SPEC'M 12/23/16 00:13 Test: BLOOD CULTURE; Value: No growth after 24 hours . All specimens observed; Status: F Test: BLOOD CULTURE; Value: for 5 days. Results final at that time.; Status: F Test: BLOOD CULTURE; Value: No Growth after 48 hours. All Specimens observed; Status: F Test: BLOOD CULTURE; Value: for 7 days. Results final at that time.; Status: F Outcome: 01:00 Discharge ordered by Provider. mo1 01:34 Discharge Assessment: Patient awake, alert and oriented x 3. No cognitive and/or kmg1 functional deficits noted. Patient verbalized understanding of disposition instructions. Patient awake and alert. patient administered narcotics - yes. Pt provided with safe discharge. The following High Risk Discharge criteria are identified: None. Discharged to home ambulatory, with friend. Condition: stable. Discharge instructions given to patient, Instructed on discharge instructions, follow up and referral plans. medication usage, Use of warm compresses to the affected area, Demonstrated understanding of instructions, medications, Pt was receptive of discharge instructions/ teaching. Prescriptions given X 2. No special radiology studies were completed. Property sent home with patient. 01:39 [place] [facility] [place] Signatures: Shira Grider RN RN kmg1 Matthias Man RN RN cz Em Hidalgo, Reg Reg gb Genevieve Calixto RN RN rs3 Dc Coates gr2 Juan Grant PA PA mo1 Caden Zaragoza, LINK MACHINE OPERATOR LINK MACHINE OPERATOR Nirmala Rivera, Reg Reg ks16 Haydee Abbasi, Reg Reg hs2 Darlene Hernandez RN cf2 Chart Complete MTDD
--- NOTE | 2016-12-25 17:39 | EDDOCDS ---
Physician Documentation [facility] Name: Christina Ngo Age: 61 yrs Sex: Female : 1955 Arrival Date: 12/22/2016 Time: 22:29 Bed I9 Private MD: Ed Mata Disposition: 12/23/16 01:00 Discharged to Home/Self Care. Impression: Abscess of vulva, Cellulitis of abdominal wall - genital area. - Condition is Stable. - Discharge Instructions: Abscess, Cellulitis, Incision and Drainage. - Prescriptions for Clindamycin HCl 300 mg Oral Capsule - take 1 capsule by ORAL route every 6 hours; 40 capsule. [place] 5- 325 mg Oral Tablet - take 1 tablet by ORAL route every 6 hours As needed MDD: 4 tabs; 12 tablet. - Medication Reconciliation, Local Pharmacy Hours form. - Follow up: Emergency Department; When: 1 - 2 days; Reason: Recheck today's complaints, Continuance of care. - Problem is new. - Symptoms have improved. Historical: - Allergies: no known allergies; - Home Meds: 1. allopurinol 100 mg Oral tab 1 tab once daily for Gout 2. levamir 45 unit twice a day 3. lisinopril 10 mg Oral tab 1 tab once daily 4. Novolog 100 unit/mL Sub-Q soln 15 unit sliding scale 5. omeprazole 20 mg Oral cpDR 1 cap once daily ran out 6. Enbrel 25 mg (1 mL) SubQ solr 1 mL 2 times per wk - PMHx: Arthritis; Diabetes - IDDM: controlled; Diabetic Neuropathy; Diverticulitis; GERD; Gout; Hypercholesterolemia; Hypertension; restless leg syndrome; SBO; Vertigo; Psoriasis; - PSHx: Cholecystectomy; Colonoscopy; foot surgery; Tonsillectomy; Adenoidectomy; - Social history: Smoking status: Patient states former smoker of tobacco. No barriers to communication noted, The patient speaks fluent Georgian. - Family history: Not pertinent. - : The pt / caregiver states he / she is not on anticoagulants. Home medication list is obtained from the patient. - Exposure Risk Screening:: None identified. Vital Signs: 12/22 22:31 BP 151 / 78; Pulse 100; Resp 18 S; Temp 99.1(O); Pulse Ox 98% on R/A; Weight 93.44 kg / gr2 206 lbs (R); Height 5 ft. 4 in. (162.56 cm) (R); Pain 7/10; 12/23 01:34 BP 135 / 68; Pulse 88; Resp 18; Temp 98.7(O); Pulse Ox 95% on R/A; kmg1 12/22 22:31 Body Mass Index 35.36 (93.44 kg, 162.56 cm) gr2 Procedures: 00:05 I & D: Incision and drainage was performed for an abscess of the right vulva with mo1 surrounding STS and cellulitis, no perirectal involvement Prepped with hibiclens. Anesthetized with 2 ml's 2% Lidocaine. Incised with #11 blade. Drained large amount Loculations removed. Cultures obtained. Abscess cavity explored. Packed with iodoform gauze, the patient tolerated the procedure well. MDM: 12/22 23:03 IV Saline Lock ordered. mo1 23:03 -Blood Culture (Adults Only), peripheral from different site, or from device/port/PICC mo1 etc. if present ordered. 23:03 morphine 4 mg IVP once ordered. mo1 23:03 Clindamycin 900 mg IVPB once over 30 mins; dilute in 50mL of NS or D5W ordered. mo1 23:03 NS 0.9% 500 ml IV at bolus once ordered. mo1 23:04 CBC with Diff Ordered. EDMS 23:04 BMP Ordered. EDMS 23:05 -Blood Culture Ordered. EDMS 23:05 Wound Culture - All Other Sources Ordered. EDMS 23:13 -Blood Culture (Adults Only), peripheral from different site, or from device/port/PICC ml3 etc. if present complete. 23:14 BLOOD CULTURES Ordered. EDMS 23:23 Ondansetron 4 mg IVP once ordered. mo1 23:34 Lidocaine 20 mg/mL (2 %) 10 ml Infiltration once; to bedside ordered. mo1 12/23 00:23 Financial registration complete. hs2 00:35 BMP Reviewed. mo1 00:35 CBC with Diff Reviewed. mo1 00:40 Insulin Regular Human 5 units Sub-Q once ordered. mo1 01:19 [facility] Payment Agreement was scanned into [employer] and attached to record. hs2 09:49 T-Sheet-- Draft Copy was scanned into [employer] and attached to record. gb 12/24 20:58 [facility] Payment Agreement was scanned into [employer] and attached to record. [email or web address] Administered Medications: 12/23 00:00 Drug: morphine 4 mg [morphine 4 mg/mL intravenous cartridge (1 mL)] Route: IVP; Site: [facility] [place] right antecubital; 00:00 Drug: Ondansetron 4 mg [ondansetron HCl 2 mg/mL intravenous solution (2 mL)] Route: kmg1 IVP; Site: right antecubital; 00:00 Drug: Lidocaine 10 ml [lidocaine 20 mg/mL (2 %) injection solution (10 mL)] {Note: By [facility] [place].} Route: Infiltration; 00:28 Drug: NS 0.9% 500 ml [sodium chloride 0.9 % intravenous solution] Route: IV; Rate: kmg1 bolus; Site: right antecubital; 00:29 Drug: Clindamycin 900 mg Route: IVPB; Infused Over: 30 mins; Site: right antecubital; [facility] 01:08 Drug: Insulin Regular Human 5 units [insulin regular human 100 unit/mL injection [facility] solution (0.05 mL)] {Co-Signature: cf2 (Darlene Hernandez RN).} Route: Sub-Q; Site: left upper arm; Signatures: Dispatcher [employer] Shira José RN RN kmg1 Em Hidalgo, Reg Reg gb CesiaJaneneMaricel, Manager Pe Unit ml3 Genevieve Calixto RN RN rs3 Juan Grant PA PA mo1 Nirmala Anand, Reg Reg ks16 Haydee Abbasi, Reg Reg hs2 Darlene Hernandez RN cf2 The chart was reviewed and I authenticate all verbal orders and agree with the evaluation and treatment provided.Attachments: 01:19 [facility] Payment Agreement hs2 09:49 T-Sheet-- Draft Copy 12/24 20:58 [facility] Payment Agreement [email or web address] Chart Complete MTDD
--- NOTE | 2016-12-25 17:39 | EDDOCDS ---
Physician Documentation [facility] Name: Christina Ngo Age: 61 yrs Sex: Female : 1955 Arrival Date: 12/22/2016 Time: 22:29 Bed I9 Private MD: Ed Mata Disposition: 12/23/16 01:00 Discharged to Home/Self Care. Impression: Abscess of vulva, Cellulitis of abdominal wall - genital area. - Condition is Stable. - Discharge Instructions: Abscess, Cellulitis, Incision and Drainage. - Prescriptions for Clindamycin HCl 300 mg Oral Capsule - take 1 capsule by ORAL route every 6 hours; 40 capsule. [place] 5- 325 mg Oral Tablet - take 1 tablet by ORAL route every 6 hours As needed MDD: 4 tabs; 12 tablet. - Medication Reconciliation, Local Pharmacy Hours form. - Follow up: Emergency Department; When: 1 - 2 days; Reason: Recheck today's complaints, Continuance of care. - Problem is new. - Symptoms have improved. Historical: - Allergies: no known allergies; - Home Meds: 1. allopurinol 100 mg Oral tab 1 tab once daily for Gout 2. levamir 45 unit twice a day 3. lisinopril 10 mg Oral tab 1 tab once daily 4. Novolog 100 unit/mL Sub-Q soln 15 unit sliding scale 5. omeprazole 20 mg Oral cpDR 1 cap once daily ran out 6. Enbrel 25 mg (1 mL) SubQ solr 1 mL 2 times per wk - PMHx: Arthritis; Diabetes - IDDM: controlled; Diabetic Neuropathy; Diverticulitis; GERD; Gout; Hypercholesterolemia; Hypertension; restless leg syndrome; SBO; Vertigo; Psoriasis; - PSHx: Cholecystectomy; Colonoscopy; foot surgery; Tonsillectomy; Adenoidectomy; - Social history: Smoking status: Patient states former smoker of tobacco. No barriers to communication noted, The patient speaks fluent Italian. - Family history: Not pertinent. - : The pt / caregiver states he / she is not on anticoagulants. Home medication list is obtained from the patient. - Exposure Risk Screening:: None identified. Vital Signs: 12/22 22:31 BP 151 / 78; Pulse 100; Resp 18 S; Temp 99.1(O); Pulse Ox 98% on R/A; Weight 93.44 kg / gr2 206 lbs (R); Height 5 ft. 4 in. (162.56 cm) (R); Pain 7/10; 12/23 01:34 BP 135 / 68; Pulse 88; Resp 18; Temp 98.7(O); Pulse Ox 95% on R/A; kmg1 12/22 22:31 Body Mass Index 35.36 (93.44 kg, 162.56 cm) gr2 Procedures: 00:05 I & D: Incision and drainage was performed for an abscess of the right vulva with mo1 surrounding STS and cellulitis, no perirectal involvement Prepped with hibiclens. Anesthetized with 2 ml's 2% Lidocaine. Incised with #11 blade. Drained large amount Loculations removed. Cultures obtained. Abscess cavity explored. Packed with iodoform gauze, the patient tolerated the procedure well. MDM: 12/22 23:03 IV Saline Lock ordered. mo1 23:03 -Blood Culture (Adults Only), peripheral from different site, or from device/port/PICC mo1 etc. if present ordered. 23:03 morphine 4 mg IVP once ordered. mo1 23:03 Clindamycin 900 mg IVPB once over 30 mins; dilute in 50mL of NS or D5W ordered. mo1 23:03 NS 0.9% 500 ml IV at bolus once ordered. mo1 23:04 CBC with Diff Ordered. EDMS 23:04 BMP Ordered. EDMS 23:05 -Blood Culture Ordered. EDMS 23:05 Wound Culture - All Other Sources Ordered. EDMS 23:13 -Blood Culture (Adults Only), peripheral from different site, or from device/port/PICC ml3 etc. if present complete. 23:14 BLOOD CULTURES Ordered. EDMS 23:23 Ondansetron 4 mg IVP once ordered. mo1 23:34 Lidocaine 20 mg/mL (2 %) 10 ml Infiltration once; to bedside ordered. mo1 12/23 00:23 Financial registration complete. hs2 00:35 BMP Reviewed. mo1 00:35 CBC with Diff Reviewed. mo1 00:40 Insulin Regular Human 5 units Sub-Q once ordered. mo1 01:19 [facility] Payment Agreement was scanned into [employer] and attached to record. hs2 09:49 T-Sheet-- Draft Copy was scanned into [employer] and attached to record. gb 12/24 20:58 [facility] Payment Agreement was scanned into [employer] and attached to record. [email or web address] Administered Medications: 12/23 00:00 Drug: morphine 4 mg [morphine 4 mg/mL intravenous cartridge (1 mL)] Route: IVP; Site: [facility] [place] [place] right antecubital; 00:00 Drug: Ondansetron 4 mg [ondansetron HCl 2 mg/mL intravenous solution (2 mL)] Route: kmg1 IVP; Site: right antecubital; 00:00 Drug: Lidocaine 10 ml [lidocaine 20 mg/mL (2 %) injection solution (10 mL)] {Note: By [facility] [place] [place].} Route: Infiltration; 00:28 Drug: NS 0.9% 500 ml [sodium chloride 0.9 % intravenous solution] Route: IV; Rate: kmg1 bolus; Site: right antecubital; 00:29 Drug: Clindamycin 900 mg Route: IVPB; Infused Over: 30 mins; Site: right antecubital; [facility] [place] [place] 01:08 Drug: Insulin Regular Human 5 units [insulin regular human 100 unit/mL injection [facility] [place] solution (0.05 mL)] {Co-Signature: cf2 (Darlene Hernandez RN).} Route: Sub-Q; Site: left upper arm; Signatures: Dispatcher [employer] Shira José RN RN kmg1 Em Hidalgo, Reg Reg gb CesiaJaneneMaricel, Cable Rigger Unit ml3 Genevieve Calixto RN RN rs3 Juan Grant PA PA mo1 Nirmala Anand, Reg Reg ks16 Haydee Abbasi, Reg Reg hs2 Darlene Hernandez RN cf2 The chart was reviewed and I authenticate all verbal orders and agree with the evaluation and treatment provided.Attachments: 01:19 [facility] Payment Agreement hs2 09:49 T-Sheet-- Draft Copy 12/24 20:58 [facility] Payment Agreement [email or web address] Chart Complete MTDD
--- NOTE | 2016-12-25 17:39 | EDDOCDS ---
Nurse's Notes [facility] Name: Christina Ngo Age: 61 yrs Sex: Female : 1955 Arrival Date: 12/22/2016 Time: 22:29 Bed I9 Private MD: Ed Mata Diagnosis: Abscess of vulva;Cellulitis of abdominal wall-genital area Presentation: 12/22 22:41 Presenting complaint: Patient states: lump on perineum since Monday. getting worse rs3 progressively, redness, swelling spread to right buttock. Adult Sepsis Screening: The patient does not have new or worsening altered mentation. Patient's respiratory rate is less than 22. Systolic blood pressure is greater than 100. Patient has a qSOFA score of 0- Negative Sepsis Screen. Suicide/Homicide risk assessment- the patient denies having any suicidal and/or homicidal ideations and does not present with any other emotional, behavioral or mental health complaints. 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 Transition of care: patient was not received from another setting of care. 22:41 Acuity: MARGARITA Level 3 rs3 22:41 Method Of Arrival: Walkin/Carried/Asstd rs3 Triage Assessment: 22:46 General: Appears in no apparent distress. Pain: Location: pelvis. HIV screening NA for rs3 this visit Offered previously. Historical: - Allergies: no known allergies; - Home Meds: 1. allopurinol 100 mg Oral tab 1 tab once daily for Gout 2. levamir 45 unit twice a day 3. lisinopril 10 mg Oral tab 1 tab once daily 4. Novolog 100 unit/mL Sub-Q soln 15 unit sliding scale 5. omeprazole 20 mg Oral cpDR 1 cap once daily ran out 6. Enbrel 25 mg (1 mL) SubQ solr 1 mL 2 times per wk - PMHx: Arthritis; Diabetes - IDDM: controlled; Diabetic Neuropathy; Diverticulitis; GERD; Gout; Hypercholesterolemia; Hypertension; restless leg syndrome; SBO; Vertigo; Psoriasis; - PSHx: Cholecystectomy; Colonoscopy; foot surgery; Tonsillectomy; Adenoidectomy; - Social history: Smoking status: Patient states former smoker of tobacco. No barriers to communication noted, The patient speaks fluent Sinhala. - Family history: Not pertinent. - : The pt / caregiver states he / she is not on anticoagulants. Home medication list is obtained from the patient. - Exposure Risk Screening:: None identified. Screenin/10 01:34 Screening information is obtained from the patient. Fall risk: No risks identified. kmg1 Assistance ADL's: requires no assistance with activities of daily living. Abuse/DV Screen: The patient / caregiver reports he/she is: not in a situation that causes fear, pain or injury. Nutritional screening: No deficits noted. Advance Directives: There is no active DNR order. home support is adequate. Assessment: 00:00 General: Appears in no apparent distress, comfortable, Behavior is appropriate for age, kmg1 cooperative, pleasant. Pain: Location: right labia majora Pain currently is 7 out of 10 on a pain scale. Quality of pain is described as burning, pressure, sharp, stabbing. Derm: Abscess located on right labia majora is golf ball sized. 01:34 General: Appears in no apparent distress, comfortable, Behavior is appropriate for age, kmg1 crying, pleasant. General: Peripad in place. Wound draining small amount of blood tinge drainage. Pain: Location: right labia majora Pain currently is 3 out of 10 on a pain scale. Vital Signs: 02 22:31 BP 151 / 78; Pulse 100; Resp 18 S; Temp 99.1(O); Pulse Ox 98% on R/A; Weight 93.44 kg gr2 (R); Height 5 ft. 4 in. (162.56 cm) (R); Pain 7/10; 02 01:34 BP 135 / 68; Pulse 88; Resp 18; Temp 98.7(O); Pulse Ox 95% on R/A; kmg1 12/22 22:31 Body Mass Index 35.36 (93.44 kg, 162.56 cm) gr2 Vitals: 12/22 22:31 Log In Time: December 22, 2016 at 22:31. gr2 ED Course: 22:31 Patient visited by Dc Coates. gr2 22:31 Gopi Cuadra is Private Physician. gr2 22:31 Ed Mata DO is Private Physician. gr2 22:31 Patient moved to Waiting gr2 22:36 Patient visited by Dc Coates. gr2 22:37 Patient moved to Pre RCE gr2 22:43 Triage Initiated rs3 22:47 Patient moved to Triage 3 mdr 22:47 Patient moved to Pre RCE mdr 22:48 Patient moved to Triage 3 mdr 22:51 Juan Grant PA is PHCP. mo1 22:51 Chris Ascencio DO is Attending Physician. mo1 23:01 Patient moved to I9 / cz 23:04 Patient visited by Juan Grant PA. mo1 23:38 CBC with Diff Sent. kmg1 23:38 BMP Sent. kmg1 23:38 -Blood Culture Sent. kmg1 23:38 Inserted saline lock: 18 gauge in right antecubital area. kmg1 12/23 00:00 Assist provider with I & D: of an abscess on groin abscess Set up I&D tray. Performed kmg1 by Juan KILLIAN Culture sent to lab. Wound packed. iodoform gauze, Dressing with peripad Patient tolerated well. 00:13 Notified physician's computer assistant of glucose 414. cz 01:19 [facility] [place] Agreement was scanned into [employer] and attached to record. hs2 01:34 The patient / caregiver is instructed regarding the plan of care and ED course. kmg1 01:34 Discontinued lock bleeding controlled, pressure dressing applied, No redness/swelling kmg1 at site. 09:49 T-Sheet-- Draft Copy was scanned into [employer] and attached to record. gb 02 20:58 [facility] Payment Agreement was scanned into [employer] and attached to record. [email or web address] Administered Medications: 12/23 00:00 Drug: morphine 4 mg [morphine 4 mg/mL intravenous cartridge (1 mL)] Route: IVP; Site: kmg1 right antecubital; 00:00 Drug: Ondansetron 4 mg [ondansetron HCl 2 mg/mL intravenous solution (2 mL)] Route: kmg1 IVP; Site: right antecubital; 00:00 Drug: Lidocaine 10 ml [lidocaine 20 mg/mL (2 %) injection solution (10 mL)] {Note: By evelina KILLIAN.} Route: Infiltration; 00:28 Drug: NS 0.9% 500 ml [sodium chloride 0.9 % intravenous solution] Route: IV; Rate: kmg1 bolus; Site: right antecubital; 00:29 Drug: Clindamycin 900 mg Route: IVPB; Infused Over: 30 mins; Site: right antecubital; kmg1 01:08 Drug: Insulin Regular Human 5 units [insulin regular human 100 unit/mL injection kmg1 solution (0.05 mL)] {Co-Signature: cf2 (Darlene Hernandez RN).} Route: Sub-Q; Site: left upper arm; Order Results: Lab Order: CBC with Diff; SPEC'M 12/22/16 23:35 Test: WHITE BLOOD COUNT; Value: 6.2; Range: 4.0-10.0; Units: K/mm3; Status: F Test: RED BLOOD COUNT; Value: 4.20; Range: 4.00-5.40; Units: M/mm3; Status: F Test: HEMOGLOBIN; Value: 12.4; Range: 12.0-16.0; Units: g/dl; Status: F Test: HEMATOCRIT; Value: 39.2; Range: 36.0-47.0; Units: %; Status: F Test: MEAN CORPUSCULAR VOLUME; Value: 93.3; Range: 80.0-96.0; Units: fl; Status: F Test: MEAN CORPUSCULAR HEMOGLOBIN; Value: 29.6; Range: 27.0-33.0; Units: pg; Status: F Test: MEAN CORPUSCULAR HGB CONC; Value: 31.7; Range: 32.0-36.5; Abnormal: Below low normal; Units: g/dl; Status: F Test: RED CELL DISTRIBUTION WIDTH; Value: 15.3; Range: 11.5-14.5; Abnormal: Above high normal; Units: %; Status: F Test: PLATELET COUNT, AUTOMATED; Value: 119; Range: 150-450; Abnormal: Below low normal; Units: k/mm3; Status: F Test: NEUTROPHILS %; Value: 60.6; Range: 36.0-66.0; Units: %; Status: F Test: LYMPH %; Value: 25.5; Range: 24.0-44.0; Units: %; Status: F Test: MONO %; Value: 7.7; Range: 0.0-5.0; Abnormal: Above high normal; Units: %; Status: F Test: EOS %; Value: 2.6; Range: 0.0-3.0; Units: %; Status: F Test: BASO %; Value: 0.4; Range: 0.0-1.0; Units: %; Status: F Test: LARGE UNSTAINED CELL %; Value: 3.2; Range: 0.0-4.0; Units: %; Status: F Test: NEUTROPHILS #; Value: 3.7; Range: 1.8-7.7; Units: K/mm3; Status: F Test: LYMPH #; Value: 1.6; Range: 1.5-4.5; Units: K/mm3; Status: F Test: MONO #; Value: 0.5; Range: 0.0-0.8; Units: K/mm3; Status: F Test: EOS #; Value: 0.2; Range: 0.0-0.50; Units: K/mm3; Status: F Test: BASO #; Value: 0.0; Range: 0.0-0.2; Units: K/mm3; Status: F Test: LARGE UNSTAINED CELL #; Value: 0.2; Range: 0.0-0.4; Units: K/mm3; Status: F Lab Order: [facility]; SPEC'M 12/22/16 23:35 Test: GLUCOSE, FASTING; Value: 414; Range: 70-105; Abnormal: Above upper panic limits; Units: MG/DL; Status: F Test: BLOOD UREA NITROGEN; Value: 7; Range: 7-18; Units: MG/DL; Status: F Test: CREATININE FOR GFR; Value: 0.85; Range: 0.55-1.02; Units: MG/DL; Status: F Test: GLOMERULAR FILTRATION RATE; Value: > 60.0; Range: >51; Status: F Test: SODIUM LEVEL; Value: 136; Range: 136-145; Units: MEQ/L; Status: F Test: POTASSIUM SERUM; Value: 4.0; Range: 3.5-5.1; Units: MEQ/L; Status: F Test: CHLORIDE LEVEL; Value: 100; Range: 98-107; Units: MEQ/L; Status: F Test: CARBON DIOXIDE LEVEL; Value: 29; Range: 21-32; Units: MEQ/L; Status: F Test: ANION GAP; Value: 7; Range: 8-16; Abnormal: Below low normal; Units: MEQ/L; Status: F Test: CALCIUM LEVEL; Value: 8.2; Range: 8.5-10.1; Abnormal: Below low normal; Units: MG/DL; Status: F Test Note: ; Units are mL/min/1.73 m2 Chronic Kidney Disease Staging per NKF: Stage I & II GFR >=60 Normal to Mildly Decreased Stage III GFR 30-59 Moderately Decreased Stage IV GFR 15-29 Severely Decreased Stage V GFR <15 Very Little GFR Left ESRD GFR <15 on PLASTER TENDER Lab Order: -Blood Culture; SPEC'M 12/22/16 23:35 Test: BLOOD CULTURE; Value: No growth after 24 hours . All specimens observed; Status: F Test: BLOOD CULTURE; Value: for 5 days. Results final at that time.; Status: F Test: BLOOD CULTURE; Value: No Growth after 48 hours. All Specimens observed; Status: F Test: BLOOD CULTURE; Value: for 7 days. Results final at that time.; Status: F Lab Order: Wound Culture - All Other Sources; SPEC'M 12/23/16 00:13 Test: WOUND CULTURE; Value: <EXTERNAL COMMENT eCWMed> FULL REPORT IN LAB NOTES (eCW and Medent).; Status: F Test: WOUND CULTURE; Value: ORGANISM 1: STAPH.AUREUS METHICILLIN RESIS; Status: F Test: WOUND CULTURE; Value: STAPH.AUREUS METHICILLIN RESIS; Status: F Test: WOUND CULTURE; Value: QUANTITY OF GROWTH HEAVY; Status: F Test: WOUND CULTURE; Value: GRAM POS SENSI - VITEK 67; Status: F Test: WOUND CULTURE; Value: Method: VIT2; Status: F Test: WOUND CULTURE; Value: TETRACYCLINE <=1 S; Status: F Test: WOUND CULTURE; Value: PENICILLIN G >=0.5 R; Status: F Test: WOUND CULTURE; Value: TRIMETHOPRIM/SULFAMETHOXAZOLE <=10 S; Status: F Test: WOUND CULTURE; Value: ERYTHROMYCIN <=0.25 S; Status: F Test: WOUND CULTURE; Value: GENTAMICIN <=0.5 S; Status: F Test: WOUND CULTURE; Value: CLINDAMYCIN <=0.25 S; Status: F Test: WOUND CULTURE; Value: OXACILLIN >=4 R; Status: F Test: WOUND CULTURE; Value: VANCOMYCIN <=0.5 S; Status: F Test: WOUND CULTURE; Value: LINEZOLID (ZYVOX) 2 S; Status: F Lab Order: BLOOD CULTURES; SPEC'M 12/23/16 00:13 Test: BLOOD CULTURE; Value: No growth after 24 hours . All specimens observed; Status: F Test: BLOOD CULTURE; Value: for 5 days. Results final at that time.; Status: F Test: BLOOD CULTURE; Value: No Growth after 48 hours. All Specimens observed; Status: F Test: BLOOD CULTURE; Value: for 7 days. Results final at that time.; Status: F Outcome: 01:00 Discharge ordered by Provider. mo1 01:34 Discharge Assessment: Patient awake, alert and oriented x 3. No cognitive and/or [facility] functional deficits noted. Patient verbalized understanding of disposition instructions. Patient awake and alert. patient administered narcotics - yes. Pt provided with safe discharge. The following High Risk Discharge criteria are identified: None. Discharged to home ambulatory, with friend. Condition: stable. Discharge instructions given to patient, Instructed on discharge instructions, follow up and referral plans. medication usage, Use of warm compresses to the affected area, Demonstrated understanding of instructions, medications, Pt was receptive of discharge instructions/ teaching. Prescriptions given X 2. No special radiology studies were completed. Property sent home with patient. 01:39 [place] left the [place]. [facility] Signatures: Shira Grider, RN RN kmg1 Matthias Man, HARRY RN Em Stevens, Reg Reg gb Genevieve Calixto RN RN rs3 Dc Coates gr2 Juan Grant PA PA mo1 Caden Zaragoza, ELEMENTARY SECRETARY ELEMENTARY SECRETARY Nirmala Rivera, Reg Reg ks16 Haydee Abbasi, Reg Reg hs2 Darlene Hernandez RN cf2 Chart Complete MTDD
== END 2016-12-23 01:39 | disposition home or self-care (01) ==
LOC: M ED 22:29
DX: N76.4 Abscess of vulva (principal); L03.311 Cellulitis of abdominal wall; I10 Essential (primary) hypertension; E11.40 Type 2 diabetes mellitus with diabetic neuropathy, unspecified; M19.90 Unspecified osteoarthritis, unspecified site; K21.9 Gastro-esophageal reflux disease without esophagitis; M10.9 Gout, unspecified; L40.9 Psoriasis, unspecified; G25.81 Restless legs syndrome; Z87.19 Personal history of other diseases of the digestive system; E78.00 Pure hypercholesterolemia, unspecified; Z86.69 Personal history of other diseases of the nervous system and sense organs; Z79.899 Other long term (current) drug therapy; Z79.4 Long term (current) use of insulin; Z87.891 Personal history of nicotine dependence
CPT/HCPCS: 10060; 80048; 85025; 87040; 87070; 87077; 87186; 96372; 96374; 96375; 99284; J2405

== ENCOUNTER 2016-12-24 18:31 | Emergency (ER) | payer OTHER ==
--- NOTE | 2016-12-24 20:42 | EDDOCDS ---
Physician Documentation [facility] Name: Christina Ngo Age: 61 yrs Sex: Female : 1955 Arrival Date: 12/24/2016 Time: 18:31 Bed TR7 Private MD: Ed Mata Disposition: 12/24/16 19:24 Discharged to Home/Self Care. Impression: Abscess of vulva - improving, Encounter for change or removal of nonsurgical wound dressing. - Condition is Stable. - Discharge Instructions: Abscess, Cellulitis, Incision and Drainage. - Prescriptions for [place] 5- 325 mg Oral Tablet - take 1 tablet by ORAL route every 6 hours As needed MDD: 4 tabs; 20 tablet. - Medication Reconciliation, Local Pharmacy Hours form. - Follow up: Private Physician; When: Call to arrange an appointment; Reason: Recheck today's complaints, Continuance of care. - Problem is an acute exacerbation. - Symptoms have improved. Historical: - Allergies: no known allergies; - Home Meds: 1. allopurinol 100 mg Oral tab 1 tab once daily for Gout 2. Enbrel 25 mg (1 mL) SubQ solr 1 mL 2 times per wk 3. Levemir 100 unit/mL subcutaneous soln 45 unit twice a day 4. lisinopril 10 mg Oral tab 1 tab once daily 5. Novolog 100 unit/mL Sub-Q soln 15 unit sliding scale 6. omeprazole 20 mg Oral cpDR 1 cap once daily ran out 7. Amitriptyline 5 mg Oral once daily 8. clindamycin HCl 300 mg Oral cap every 6 hours 9. [place] 5-325 mg Oral tab every 4 hours 10. cyclobenzaprine 5 mg Oral tab 1 tab as needed - PMHx: Arthritis; Diabetes - IDDM: controlled; Diabetic Neuropathy; Diverticulitis; GERD; Gout; Hypercholesterolemia; Psoriasis; restless leg syndrome; Hypertension; SBO; Vertigo; - PSHx: Cholecystectomy; Colonoscopy; foot surgery; Tonsillectomy; Adenoidectomy; - Social history: Smoking status: Patient states former smoker of tobacco. No barriers to communication noted, The patient speaks fluent [place] Islander. - Family history: Not pertinent. - : The pt / caregiver states he / she is not on anticoagulants. Home medication list is obtained from the patient. - Exposure Risk Screening:: None identified. Vital Signs: 12/24 18:33 BP 120 / 64; Pulse 91; Resp 18; Temp 98.6(O); Pulse Ox 96% on R/A; Weight 93.44 kg / dem1 206 lbs; Height 5 ft. 4 in. (162.56 cm); Pain 8/10; 18:33 Body Mass Index 35.36 (93.44 kg, 162.56 cm) dem1 MDM: 19:28 Financial registration complete. ks16 Signatures: Shira Grider RN RN kmg1 Genevieve Calixto RN RN rs3 Juan Grant PA PA mo1 Nirmala Anand, Reg Reg ks16 MTDD
--- NOTE | 2016-12-24 20:42 | EDDOCDS ---
Nurse's Notes [facility] Name: Christina Ngo Age: 61 yrs Sex: Female : 1955 Arrival Date: 12/24/2016 Time: 18:31 Bed TR7 Private MD: Ed Mata Diagnosis: Abscess of vulva-improving;Encounter for change or removal of nonsurgical wound dressing Presentation: 12/24 18:35 Presenting complaint: Patient states: here for abscess recheck. was seen here on rs3 . Adult Sepsis Screening: The patient does not have new or worsening altered mentation. Patient's respiratory rate is less than 22. Systolic blood pressure is greater than 100. Patient has a qSOFA score of 0- Negative Sepsis Screen. Suicide/Homicide risk assessment- the patient denies having any suicidal and/or homicidal ideations and does not present with any other emotional, behavioral or mental health complaints. Status: Patient is not a service planner or dependent. Transition of care: patient was not received from another setting of care. 18:35 Acuity: MARGARITA Level 4 rs3 18:35 Method Of Arrival: Walkin/Carried/Asstd rs3 Triage Assessment: 18:39 General: Appears in no apparent distress. Pain: Location: pelvis. HIV screening NA for rs3 this visit Offered previously. Historical: - Allergies: no known allergies; - Home Meds: 1. allopurinol 100 mg Oral tab 1 tab once daily for Gout 2. Enbrel 25 mg (1 mL) SubQ solr 1 mL 2 times per wk 3. Levemir 100 unit/mL subcutaneous soln 45 unit twice a day 4. lisinopril 10 mg Oral tab 1 tab once daily 5. Novolog 100 unit/mL Sub-Q soln 15 unit sliding scale 6. omeprazole 20 mg Oral cpDR 1 cap once daily ran out 7. Amitriptyline 5 mg Oral once daily 8. clindamycin HCl 300 mg Oral cap every 6 hours 9. [place] 5-325 mg Oral tab every 4 hours 10. cyclobenzaprine 5 mg Oral tab 1 tab as needed - PMHx: Arthritis; Diabetes - IDDM: controlled; Diabetic Neuropathy; Diverticulitis; GERD; Gout; Hypercholesterolemia; Psoriasis; restless leg syndrome; Hypertension; SBO; Vertigo; - PSHx: Cholecystectomy; Colonoscopy; foot surgery; Tonsillectomy; Adenoidectomy; - Social history: Smoking status: Patient states former smoker of tobacco. No barriers to communication noted, The patient speaks fluent Montenegrin. - Family history: Not pertinent. - : The pt / caregiver states he / she is not on anticoagulants. Home medication list is obtained from the patient. - Exposure Risk Screening:: None identified. Screenin:34 Infection Control. dem1 19:30 Screening information is obtained from the patient. Fall risk: No risks identified. kmg1 Assistance ADL's: requires no assistance with activities of daily living. Abuse/DV Screen: The patient / caregiver reports he/she is: not in a situation that causes fear, pain or injury. Nutritional screening: No deficits noted. Advance Directives: There is no active DNR order. home support is adequate. Assessment: 19:30 General: Appears in no apparent distress, uncomfortable, Behavior is appropriate for kmg1 age, cooperative, pleasant. General: Packing no longer in wound. Assessed by PA. Area much improved. Less redness and swelling. No further packing placed in wound. Pain: Location: right labia majora Pain currently is 8 out of 10 on a pain scale. Quality of pain is described as burning, stinging. Vital Signs: 18:33 BP 120 / 64; Pulse 91; Resp 18; Temp 98.6(O); Pulse Ox 96% on R/A; Weight 93.44 kg; dem1 Height 5 ft. 4 in. (162.56 cm); Pain 8/10; 18:33 Body Mass Index 35.36 (93.44 kg, 162.56 cm) [facility] Vitals: 18:33 Log In Time: December 24, 2016 at 18:31. [facility] ED Course: 18:32 Patient visited by Oneyda Royal. dem1 18:32 Ed Mata DO is Private Physician. dem1 18:32 Patient moved to Waiting dem1 18:34 Patient moved to Pre RCE dem1 18:35 Triage Initiated rs3 18:58 Patient moved to Triage 2 ck1 19:00 Juan Grant PA is PHCP. mo1 19:01 Heidy Liao MD is Attending Physician. mo1 19:04 Patient visited by Juan Grant PA. mo1 19:30 The patient / caregiver is instructed regarding the plan of care and ED course. kmg1 19:30 No IV's were initiated during this patient's visit. No procedures done that require km assistance. 19:43 Patient moved to TR7 jp4 Order Results: There are currently no results for this order. Outcome: 19:24 Discharge ordered by Provider. mo1 19:30 Discharge Assessment: Patient awake, alert and oriented x 3. No cognitive and/or kmg1 functional deficits noted. Patient verbalized understanding of disposition instructions. Patient awake and alert. patient administered narcotics - no. The following High Risk Discharge criteria are identified: None. Discharged to home ambulatory. Condition: stable. Discharge instructions given to patient, Instructed on discharge instructions, follow up and referral plans. medication usage, Continue soaks to promote continued drainage Demonstrated understanding of instructions, medications, Pt was receptive of discharge instructions/ teaching. Prescriptions given X 1. No special radiology studies were completed. Property sent home with patient. 19:32 Patient left the ED. [facility] Signatures: Shira Grider RN RN kmg1 Marlen Cassidy RN RN ck1 Genevieve CalixtoRN RN rs3 Oneyda Royal1 Juan Grant PA PA mo1 Justin Georges jp4 Corrections: (The following items were deleted from the chart) 20:42 20:41 Patient [place] the ED. [place] [id number] MTDD
--- NOTE | 2016-12-26 21:42 | EDDOCDS ---
Physician Documentation [facility] Name: Christina Ngo Age: 61 yrs Sex: Female : 1955 Arrival Date: 12/24/2016 Time: 18:31 Bed TR7 Private MD: Ed Mata Disposition: 12/24/16 19:24 Discharged to Home/Self Care. Impression: Abscess of vulva - improving, Encounter for change or removal of nonsurgical wound dressing. - Condition is Stable. - Discharge Instructions: Abscess, Cellulitis, Incision and Drainage. - Prescriptions for [place] 5- 325 mg Oral Tablet - take 1 tablet by ORAL route every 6 hours As needed MDD: 4 tabs; 20 tablet. - Medication Reconciliation, Local Pharmacy Hours form. - Follow up: Private Physician; When: Call to arrange an appointment; Reason: Recheck today's complaints, Continuance of care. - Problem is an acute exacerbation. - Symptoms have improved. Historical: - Allergies: no known allergies; - Home Meds: 1. allopurinol 100 mg Oral tab 1 tab once daily for Gout 2. Enbrel 25 mg (1 mL) SubQ solr 1 mL 2 times per wk 3. Levemir 100 unit/mL subcutaneous soln 45 unit twice a day 4. lisinopril 10 mg Oral tab 1 tab once daily 5. Novolog 100 unit/mL Sub-Q soln 15 unit sliding scale 6. omeprazole 20 mg Oral cpDR 1 cap once daily ran out 7. Amitriptyline 5 mg Oral once daily 8. clindamycin HCl 300 mg Oral cap every 6 hours 9. [place] 5-325 mg Oral tab every 4 hours 10. cyclobenzaprine 5 mg Oral tab 1 tab as needed - PMHx: Arthritis; Diabetes - IDDM: controlled; Diabetic Neuropathy; Diverticulitis; GERD; Gout; Hypercholesterolemia; Psoriasis; restless leg syndrome; Hypertension; SBO; Vertigo; - PSHx: Cholecystectomy; Colonoscopy; foot surgery; Tonsillectomy; Adenoidectomy; - Social history: Smoking status: Patient states former smoker of tobacco. No barriers to communication noted, The patient speaks fluent French. - Family history: Not pertinent. - : The pt / caregiver states he / she is not on anticoagulants. Home medication list is obtained from the patient. - Exposure Risk Screening:: None identified. Vital Signs: 12/24 18:33 BP 120 / 64; Pulse 91; Resp 18; Temp 98.6(O); Pulse Ox 96% on R/A; Weight 93.44 kg / dem1 206 lbs; Height 5 ft. 4 in. (162.56 cm); Pain 8/10; 18:33 Body Mass Index 35.36 (93.44 kg, 162.56 cm) dem1 MDM: 19:28 Financial registration complete. [facility] 12/25 17:44 T-Sheet-- Draft Copy was scanned into [employer] and attached to record. klr Signatures: Shira Grider RN RN kmg1 Genevieve Calixto RN RN rs3 Juan Grant, CONSTANTIN PA mo1 Nirmala Anand, Reg Reg ks16 Maria G Spain klr The chart was reviewed and I authenticate all verbal orders and agree with the evaluation and treatment provided.Attachments: 17:44 T-Sheet-- Draft Copy klr Chart Complete MTDD
--- NOTE | 2016-12-26 21:42 | EDDOCDS ---
Physician Documentation [facility] Name: Christina Ngo Age: 61 yrs Sex: Female : 1955 Arrival Date: 12/24/2016 Time: 18:31 Bed TR7 Private MD: Ed Mata Disposition: 12/24/16 19:24 Discharged to Home/Self Care. Impression: Abscess of vulva - improving, Encounter for change or removal of nonsurgical wound dressing. - Condition is Stable. - Discharge Instructions: Abscess, Cellulitis, Incision and Drainage. - Prescriptions for Win[place] 5- 325 mg Oral Tablet - take 1 tablet by ORAL route every 6 hours As needed MDD: 4 tabs; 20 tablet. - Medication Reconciliation, Local Pharmacy Hours form. - Follow up: Private Physician; When: Call to arrange an appointment; Reason: Recheck today's complaints, Continuance of care. - Problem is an acute exacerbation. - Symptoms have improved. Historical: - Allergies: no known allergies; - Home Meds: 1. allopurinol 100 mg Oral tab 1 tab once daily for Gout 2. Enbrel 25 mg (1 mL) SubQ solr 1 mL 2 times per wk 3. Levemir 100 unit/mL subcutaneous soln 45 unit twice a day 4. lisinopril 10 mg Oral tab 1 tab once daily 5. Novolog 100 unit/mL Sub-Q soln 15 unit sliding scale 6. omeprazole 20 mg Oral cpDR 1 cap once daily ran out 7. Amitriptyline 5 mg Oral once daily 8. clindamycin HCl 300 mg Oral cap every 6 hours 9. Win[place] 5-325 mg Oral tab every 4 hours 10. cyclobenzaprine 5 mg Oral tab 1 tab as needed - PMHx: Arthritis; Diabetes - IDDM: controlled; Diabetic Neuropathy; Diverticulitis; GERD; Gout; Hypercholesterolemia; Psoriasis; restless leg syndrome; Hypertension; SBO; Vertigo; - PSHx: Cholecystectomy; Colonoscopy; foot surgery; Tonsillectomy; Adenoidectomy; - Social history: Smoking status: Patient states former smoker of tobacco. No barriers to communication noted, The patient speaks fluent Kuwaiti. - Family history: Not pertinent. - : The pt / caregiver states he / she is not on anticoagulants. Home medication list is obtained from the patient. - Exposure Risk Screening:: None identified. Vital Signs: 12/24 18:33 BP 120 / 64; Pulse 91; Resp 18; Temp 98.6(O); Pulse Ox 96% on R/A; Weight 93.44 kg / dem1 206 lbs; Height 5 ft. 4 in. (162.56 cm); Pain 8/10; 18:33 Body Mass Index 35.36 (93.44 kg, 162.56 cm) dem1 MDM: 19:28 Financial registration complete. [facility] 12/25 17:44 T-Sheet-- Draft Copy was scanned into [employer] and attached to record. klr Signatures: Shira Grider RN RN kmg1 Genevieve Calixto RN RN rs3 Juan Grant, CONSTANTIN PA mo1 Nirmala Anand, Reg Reg ks16 Maria G Spain klr The chart was reviewed and I authenticate all verbal orders and agree with the evaluation and treatment provided.Attachments: 17:44 T-Sheet-- Draft Copy klr Chart Complete MTDD
--- NOTE | 2016-12-26 21:42 | EDDOCDS ---
Nurse's Notes [facility] Name: Christina Ngo Age: 61 yrs Sex: Female : 1955 Arrival Date: 12/24/2016 Time: 18:31 Bed TR7 Private MD: Ed Mata Diagnosis: Abscess of vulva-improving;Encounter for change or removal of nonsurgical wound dressing Presentation: 12/24 18:35 Presenting complaint: Patient states: here for abscess recheck. was seen here on rs3 . Adult Sepsis Screening: The patient does not have new or worsening altered mentation. Patient's respiratory rate is less than 22. Systolic blood pressure is greater than 100. Patient has a qSOFA score of 0- Negative Sepsis Screen. Suicide/Homicide risk assessment- the patient denies having any suicidal and/or homicidal ideations and does not present with any other emotional, behavioral or mental health complaints. Status: Patient is not a social services designee or dependent. Transition of care: patient was not received from another setting of care. 18:35 Acuity: MARGARITA Level 4 rs3 18:35 Method Of Arrival: Walkin/Carried/Asstd rs3 Triage Assessment: 18:39 General: Appears in no apparent distress. Pain: Location: pelvis. HIV screening NA for rs3 this visit Offered previously. Historical: - Allergies: no known allergies; - Home Meds: 1. allopurinol 100 mg Oral tab 1 tab once daily for Gout 2. Enbrel 25 mg (1 mL) SubQ solr 1 mL 2 times per wk 3. Levemir 100 unit/mL subcutaneous soln 45 unit twice a day 4. lisinopril 10 mg Oral tab 1 tab once daily 5. Novolog 100 unit/mL Sub-Q soln 15 unit sliding scale 6. omeprazole 20 mg Oral cpDR 1 cap once daily ran out 7. Amitriptyline 5 mg Oral once daily 8. clindamycin HCl 300 mg Oral cap every 6 hours 9. [place] 5-325 mg Oral tab every 4 hours 10. cyclobenzaprine 5 mg Oral tab 1 tab as needed - PMHx: Arthritis; Diabetes - IDDM: controlled; Diabetic Neuropathy; Diverticulitis; GERD; Gout; Hypercholesterolemia; Psoriasis; restless leg syndrome; Hypertension; SBO; Vertigo; - PSHx: Cholecystectomy; Colonoscopy; foot surgery; Tonsillectomy; Adenoidectomy; - Social history: Smoking status: Patient states former smoker of tobacco. No barriers to communication noted, The patient speaks fluent [place]ican. - Family history: Not pertinent. - : The pt / caregiver states he / she is not on anticoagulants. Home medication list is obtained from the patient. - Exposure Risk Screening:: None identified. Screenin:34 Infection Control. dem1 19:30 Screening information is obtained from the patient. Fall risk: No risks identified. kmg1 Assistance ADL's: requires no assistance with activities of daily living. Abuse/DV Screen: The patient / caregiver reports he/she is: not in a situation that causes fear, pain or injury. Nutritional screening: No deficits noted. Advance Directives: There is no active DNR order. home support is adequate. Assessment: 19:30 General: Appears in no apparent distress, uncomfortable, Behavior is appropriate for kmg1 age, cooperative, pleasant. General: Packing no longer in wound. Assessed by PA. Area much improved. Less redness and swelling. No further packing placed in wound. Pain: Location: right labia majora Pain currently is 8 out of 10 on a pain scale. Quality of pain is described as burning, stinging. Vital Signs: 18:33 BP 120 / 64; Pulse 91; Resp 18; Temp 98.6(O); Pulse Ox 96% on R/A; Weight 93.44 kg; dem1 Height 5 ft. 4 in. (162.56 cm); Pain 8/10; 18:33 Body Mass Index 35.36 (93.44 kg, 162.56 cm) [facility] Vitals: 18:33 Log In Time: December 24, 2016 at 18:31. [facility] ED Course: 18:32 Patient visited by Oneyda Royal. dem1 18:32 Ed Mata DO is Private Physician. dem1 18:32 Patient moved to Waiting dem1 18:34 Patient moved to Pre RCE dem1 18:35 Triage Initiated rs3 18:58 Patient moved to Triage 2 ck1 19:00 Juan Grant PA is PHCP. mo1 19:01 Heidy Liao MD is Attending Physician. mo1 19:04 Patient visited by Juan Grant PA. mo1 19:30 The patient / caregiver is instructed regarding the plan of care and ED course. kmg1 19:30 No IV's were initiated during this patient's visit. No procedures done that require kmg1 assistance. 19:43 Patient moved to 7 4 12/25 17:44 T-Sheet-- Draft Copy was scanned into [employer] and attached to record. klr Order Results: There are currently no results for this order. Outcome: 12/24 19:24 Discharge ordered by Provider. mo1 19:30 Discharge Assessment: Patient awake, alert and oriented x 3. No cognitive and/or kmg1 functional deficits noted. Patient verbalized understanding of disposition instructions. Patient awake and alert. patient administered narcotics - no. The following High Risk Discharge criteria are identified: None. Discharged to home ambulatory. Condition: stable. Discharge instructions given to patient, Instructed on discharge instructions, follow up and referral plans. medication usage, Continue soaks to promote continued drainage Demonstrated understanding of instructions, medications, Pt was receptive of discharge instructions/ teaching. Prescriptions given X 1. No special radiology studies were completed. Property sent home with patient. 19:32 Patient left the ED. [facility] Signatures: Shira Grider, RN RN kmg1 Marlen CassidyRN RN ck1 Genevieve Calixto,RN RN rs3 Oneyda Royal1 Juan Grant PA PA mo1 Justin Georges jp4 MariaG Spain r Corrections: (The following items were deleted from the chart) 20:42 20:41 Patient [place] the ED. [place] [id number] Chart Complete MTDD
== END 2016-12-24 20:41 | disposition home or self-care (01) ==
LOC: M ED 18:31
DX: N76.4 Abscess of vulva (principal); M19.90 Unspecified osteoarthritis, unspecified site; E11.42 Type 2 diabetes mellitus with diabetic polyneuropathy; K57.32 Diverticulitis of large intestine without perforation or abscess without bleeding; K21.9 Gastro-esophageal reflux disease without esophagitis; M10.9 Gout, unspecified; E78.00 Pure hypercholesterolemia, unspecified; L40.9 Psoriasis, unspecified; G25.81 Restless legs syndrome; I10 Essential (primary) hypertension; H81.49 Vertigo of central origin, unspecified ear; Z87.891 Personal history of nicotine dependence; Z79.4 Long term (current) use of insulin; Z79.899 Other long term (current) drug therapy

== ENCOUNTER → 2017-01-23 | Outpatient (REF) | payer MEDICARE, OTHER ==
[2017-01-23 13:48] LABS: BASO % 0.3 % (0.0-1.0); EOS # 0.3 K/mm3 (0.0-0.50); EOS % 2.7 % (0.0-3.0); LARGE UNSTAINED CELL # 0.2 K/mm3 (0.0-0.4); LARGE UNSTAINED CELL % 1.8 % (0.0-4.0); LYMPH # 2.8 K/mm3 (1.5-4.5); LYMPH % 24.7 % (24.0-44.0); MEAN CORPUSCULAR HEMOGLOBIN 31.1 pg (27.0-33.0); MEAN CORPUSCULAR HGB CONC 33.8 g/dl (32.0-36.5); MONO # 0.7 K/mm3 (0.0-0.8); MONO % 6.3 % (0.0-5.0); NEUTROPHILS # 6.7 K/mm3 (1.8-7.7); NEUTROPHILS % 64.2 % (36.0-66.0); PLATELET COUNT, AUTOMATED 171 k/mm3 (150-450); RED CELL DISTRIBUTION WIDTH 14.9 % (11.5-14.5); WHITE BLOOD COUNT 10.4 K/mm3 (4.0-10.0)
[2017-01-23 13:58] LABS: ALBUMIN 3.5 GM/DL (3.2-5.2); ALBUMIN/GLOBULIN RATIO 0.78 (1.00-1.93); ALKALINE PHOSPHATASE 336 U/L (45-117); ALT/SGPT 41 U/L (12-78); ANION GAP 9 MEQ/L (8-16); AST/SGOT 49 U/L (15-37); BILIRUBIN,TOTAL 0.6 MG/DL (0.2-1.0); BLOOD UREA NITROGEN 10 MG/DL (7-18); CALCIUM LEVEL 8.9 MG/DL (8.5-10.1); CARBON DIOXIDE LEVEL 30 MEQ/L (21-32); CHLORIDE LEVEL 97 MEQ/L (98-107); CREATININE FOR GFR 0.82 MG/DL (0.55-1.02); FERRITIN 58 NG/ML (8-252); GLOMERULAR FILTRATION RATE > 60.0 (>51); GLUCOSE, FASTING 294 MG/DL (70-105); MAGNESIUM LEVEL 1.6 MG/DL (1.8-2.4); PERCENT SATURATION 16.6 % (13.2-37.4); POTASSIUM SERUM 3.6 MEQ/L (3.5-5.1); SODIUM LEVEL 136 MEQ/L (136-145); TOTAL IRON BINDING CAPACITY 385 UG/DL (250-450)
== END ==
LOC: M SFHCPLAZ 10:27
PROVIDERS: ATTEND Family Medicine
DX: E61.1 Iron deficiency (principal); E11.9 Type 2 diabetes mellitus without complications
CPT/HCPCS: 36415; 80053; 82728; 83036; 83735; 84466; 85025; G0463

== ENCOUNTER → 2017-02-10 | Outpatient (CLI) | payer OTHER ==
[~2017-02-10] MED LIST changes: +AMIT10TA PO; +CYCL5TA PO; +IRON50TA PO; +PRED5TA PO; +PRESCAP PO; +VITA-115 PO
--- NOTE | 2017-02-10 10:05 | REP ---
Clinical: History of cirrhosis. Technique: Real time estrada scale ultrasound of the right upper quadrant using curved array transducer with color Doppler evaluation of the portal vein. Findings: The patient is status post cholecystectomy with mild compensatory biliary ductal dilatation. The common bile duct measures 11.3 mm diameter. Visualized portions of the pancreas are normal. The liver demonstrates a subtle nodular contour consistent with history of cirrhosis. No focal hepatic lesions are identified. The main portal vein measures up to 18 mm diameter with normal hepatopetal flow. The right kidney is normal in reniform shape without hydronephrosis and measures 11.4 x 6.3 x 5.2 cm with 1.7 cm cyst. No ascites. Impression: Mild portal vein enlargement and nodular contour to the liver consistent with cirrhosis. Evidence of prior cholecystectomy. Signed by Michael Vincent MD 02/10/2017 09:56 A
== END ==
LOC: M RAD 08:05
PROVIDERS: ATTEND Internal Medicine Gastroenterology
DX: R97.8 Other abnormal tumor markers (principal); K74.69 Other cirrhosis of liver; K76.6 Portal hypertension; Z90.49 Acquired absence of other specified parts of digestive tract

== ENCOUNTER → 2017-02-23 | Outpatient (CLI) | payer OTHER ==
[~2017-02-23] VITALS: Ht 162.6 cm; Wt 90.3 kg
[~2017-02-23] MED LIST changes: +GABA-282 PO; -GABA300C3 PO; +LIDOCAINE 2% INJ 100 MG/5 ML SDV (FOR ANES.) As Ordered ONE; +NS 1,000 ML IV SCH; +PROPOFOL 200 MG/20 ML VIAL As Ordered ONE
--- NOTE | 2017-02-23 08:50 | ROOR ---
Patient Name: Christina Ngo Procedure Date: 02/23/2017 8:36 AM Date of : 1955 Age: 61 Room: [facility] Gender: Female Note Status: Finalized Procedure: Upper GI endoscopy Indications: Cirrhosis rule out esophageal varices Providers: Gregg HANNA MD Referring MD: [facility] Denzel Requesting Provider: Medicines: Monitored Anesthesia Care Complications: No immediate complications. Procedure: Pre-Anesthesia Assessment: - The heart rate, respiratory rate, oxygen saturations, blood pressure, adequacy of pulmonary ventilation, and response to care were monitored throughout the procedure. The Endoscope was introduced through the mouth, and advanced to the second part of duodenum. The upper GI endoscopy was accomplished without difficulty. The patient tolerated the procedure well. Findings: Grade II varices were found in the lower third of the esophagus. Three bands were successfully placed with complete eradication, resulting in deflation of varices. The entire examined stomach was normal. The examined duodenum was normal. Impression: - Grade II esophageal varices. Completely eradicated. Banded. - Normal stomach. - Normal examined duodenum. - No specimens collected. Recommendation: - Give a beta casey with dosage titrated by the heart rate. - Start/continue a Non-selective Beta Casey such as Propranolol or Nadolol, titrate to heart rate. - Return to my office in 1 month. Gregg Hanna MD Gregg HANNA MD 02/23/2017 8:50:24 AM This report has been signed electronically. Number of Addenda: 0 Note Initiated On: 02/23/2017 8:36 AM Estimated Blood Loss: Estimated blood loss: none.
--- NOTE | 2017-02-23 09:12 | ROOR ---
Patient Name: Christina Ngo Procedure Date: 02/23/2017 8:37 AM Date of : 1955 Age: 61 Room: [facility] Gender: Female Note Status: Finalized Procedure: Colonoscopy Indications: Screening for colorectal malignant neoplasm, Incidental - Hematochezia Providers: Gregg QUEZADA MD Referring MD: M[facility] Denzel Requesting Provider: Medicines: Monitored Anesthesia Care Complications: No immediate complications. Procedure: Pre-Anesthesia Assessment: - The heart rate, respiratory rate, oxygen saturations, blood pressure, adequacy of pulmonary ventilation, and response to care were monitored throughout the procedure. The Colonoscope was introduced through the anus and advanced to the cecum, identified by appendiceal orifice and ileocecal valve. The colonoscopy was performed without difficulty. The patient tolerated the procedure well. The quality of the bowel preparation was good. Findings: The perianal and digital rectal examinations were normal. (Exam: Complete, Prep: Good or Excellent.) Non-bleeding internal hemorrhoids were found during retroflexion. The hemorrhoids were moderate. A 15 mm polyp was found in the mid descending colon. The polyp was carpet-like. The polyp was removed with a piecemeal technique using a cold snare. Polyp resection was incomplete, and the resected tissue was partially retrieved. Coagulation for destruction of remaining portion of lesion using argon beam at 0.8 liters/minute and 30 torres was successful. Multiple small-mouthed diverticula were found in the sigmoid colon. Impression: - Non-bleeding internal hemorrhoids. - One 15 mm polyp in the mid descending colon, removed piecemeal using a cold snare. Polyp resection was incomplete, and the resected tissue. Remaining portions of the polyp were ablated/treated with argon beam coagulation. - Mild diverticulosis in the sigmoid colon. Recommendation: - Repeat colonoscopy in 1 year for surveillance after piecemeal polypectomy. Gregg Quezada MD Gregg QUEZADA MD 02/23/2017 9:11:49 AM This report has been signed electronically. Number of Addenda: 0 Note Initiated On: 02/23/2017 8:37 AM Estimated Blood Loss: Estimated blood loss: none.
[2017-02-23 09:35] VITALS: BP 145/85
== END ==
LOC: M OPP 07:49
PROVIDERS: ATTEND Internal Medicine Gastroenterology
DX: Z12.11 Encounter for screening for malignant neoplasm of colon (principal); D12.4 Benign neoplasm of descending colon; K64.8 Other hemorrhoids; K57.30 Diverticulosis of large intestine without perforation or abscess without bleeding; K74.60 Unspecified cirrhosis of liver; I85.10 Secondary esophageal varices without bleeding; I10 Essential (primary) hypertension; E11.9 Type 2 diabetes mellitus without complications; M10.9 Gout, unspecified; G25.81 Restless legs syndrome; L40.50 Arthropathic psoriasis, unspecified; Z79.4 Long term (current) use of insulin; Z79.899 Other long term (current) drug therapy

== ENCOUNTER 2017-03-17 02:45 | Emergency (ER) | payer OTHER ==
[~2017-03-17] VITALS: Ht 162.6 cm; Wt 93.0 kg
[~2017-03-17 02:45] MED LIST changes: -LIDOCAINE 2% INJ 100 MG/5 ML SDV (FOR ANES.) As Ordered ONE; -NS 1,000 ML IV SCH; -PROPOFOL 200 MG/20 ML VIAL As Ordered ONE
[2017-03-17] MEDS ORDERED: PROP60CA PO (02:57)
[2017-03-17 02:58] VITALS: BP 127/69
[2017-03-17] MEDS ORDERED: MAXITROL OPHTH SUSP 5 ML OU ONE (09:00)
== END 2017-03-17 03:43 | disposition home or self-care (01) ==
LOC: M ED 03:17
DX: H16.203 Unspecified keratoconjunctivitis, bilateral (principal); E11.9 Type 2 diabetes mellitus without complications; I10 Essential (primary) hypertension; M19.90 Unspecified osteoarthritis, unspecified site; Z79.899 Other long term (current) drug therapy; Z79.4 Long term (current) use of insulin; Z79.52 Long term (current) use of systemic steroids

== ENCOUNTER → 2017-04-27 | Outpatient (CLI) | payer OTHER ==
[~2017-04-27] VITALS: Ht 162.6 cm; Wt 92.1 kg
[~2017-04-27] MED LIST changes: +AMIT25TA PO; +FERR22EL PO; +HumaLOG INSULIN (NovoLOG) PER UNIT As Ordered ONE; +HumaLOG INSULIN (NovoLOG) PER UNIT SC ONE; +LIDOCAINE 2% INJ 100 MG/5 ML SDV (FOR ANES.) As Ordered ONE; +NS 1,000 ML IV ONE; +PROP60CA PO; +PROPOFOL 200 MG/20 ML VIAL As Ordered ONE; +SLEE25TA PO; +VITA50003 PO
--- NOTE | 2017-04-27 14:21 | ROOR ---
Patient Name: Christina Ngo Procedure Date: 04/27/2017 1:59 PM Date of : 1955 Age: 61 Room: [facility] Gender: Female Note Status: Finalized Procedure: Upper GI endoscopy Indications: Follow-up of esophageal varices, For therapy of esophageal varices Providers: Gregg QUEZADA MD Referring MD: Ed Mata DO Requesting Provider: Medicines: Monitored Anesthesia Care Complications: No immediate complications. Procedure: Pre-Anesthesia Assessment: - The heart rate, respiratory rate, oxygen saturations, blood pressure, adequacy of pulmonary ventilation, and response to care were monitored throughout the procedure. The Endoscope was introduced through the mouth, and advanced to the second part of duodenum. The upper GI endoscopy was accomplished without difficulty. The patient tolerated the procedure well. Findings: Grade I varices were found in the lower third of the esophagus. Grade II varices were found in the lower third of the esophagus. They were medium in size. Three bands were successfully placed with complete eradication, resulting in deflation of varices. There was no bleeding during the maneuver. The entire examined stomach was normal. The examined duodenum was normal. Impression: - Small Grade I esophageal varices. - Single moderate Grade II esophageal varix. Completely eradicated. Banded. - Normal stomach. - Normal examined duodenum. - No specimens collected. Recommendation: - Observe patient's clinical course. - Start/continue a Non-selective Beta Casey such as Propranolol or Nadolol, titrate to heart rate. Gregg Quezada MD Gregg QUEZADA MD 04/27/2017 2:21:04 PM This report has been signed electronically. Number of Addenda: 0 Note Initiated On: 04/27/2017 1:59 PM Estimated Blood Loss: Estimated blood loss: none.
[2017-04-27 15:15] VITALS: BP 116/60
== END ==
LOC: M OPP 11:52
PROVIDERS: ATTEND Internal Medicine Gastroenterology
DX: I85.00 Esophageal varices without bleeding (principal); E11.9 Type 2 diabetes mellitus without complications; I10 Essential (primary) hypertension; M10.9 Gout, unspecified; K74.69 Other cirrhosis of liver; K21.9 Gastro-esophageal reflux disease without esophagitis; D64.9 Anemia, unspecified; M19.90 Unspecified osteoarthritis, unspecified site; Z87.891 Personal history of nicotine dependence

== ENCOUNTER → 2017-05-02 | Outpatient (REF) | payer OTHER ==
[~2017-05-02] MED LIST changes: +ALBU17IN INH; +CIPR-249 PO; -CIPR500T89 PO; -CYCL5TA PO; +CYCL5TAB PO; -HumaLOG INSULIN (NovoLOG) PER UNIT As Ordered ONE; -HumaLOG INSULIN (NovoLOG) PER UNIT SC ONE; +KEFL500C17 PO; -KEFL500C7 PO; +LEVA1TAB2 PO; -LEVA500T PO; -LIDOCAINE 2% INJ 100 MG/5 ML SDV (FOR ANES.) As Ordered ONE; -METO-207 PO; +METO1TAB7 PO; -NS 1,000 ML IV ONE; -NYST100024 TOP; +NYST1POW9 TOP; -PROPOFOL 200 MG/20 ML VIAL As Ordered ONE; +TRAZ50TA11 PO; +VITA1CAP40 PO; -VITA50003 PO
== END ==
LOC: M SFHCPLAZ 13:04
PROVIDERS: ATTEND Student in an Organized Health Care Education/Training Program
DX: E11.65 Type 2 diabetes mellitus with hyperglycemia (principal)
CPT/HCPCS: 82043; 82948; G0463

== ENCOUNTER → 2017-05-04 | Outpatient (REF) | payer OTHER ==
[~2017-05-04] MED LIST changes: -ALBU17IN INH; -CIPR-249 PO; +CIPR500T89 PO; +CYCL5TA PO; -CYCL5TAB PO; -KEFL500C17 PO; +KEFL500C7 PO; -LEVA1TAB2 PO; +LEVA500T PO; +METO-207 PO; -METO1TAB7 PO; +NYST100024 TOP; -NYST1POW9 TOP; -TRAZ50TA11 PO; -VITA1CAP40 PO; +VITA50003 PO
== END ==
LOC: M SFHCPLAZ 14:20
PROVIDERS: ATTEND Family Medicine
DX: E11.65 Type 2 diabetes mellitus with hyperglycemia (principal)

== ENCOUNTER 2017-05-14 14:38 | Emergency (ER) | payer OTHER ==
[~2017-05-14] VITALS: Ht 162.6 cm; Wt 94.8 kg
[~2017-05-14 14:38] MED LIST changes: +CIPR-249 PO; -CIPR500T89 PO; -CYCL5TA PO; +CYCL5TAB PO; +KEFL500C17 PO; -KEFL500C7 PO; +LEVA1TAB2 PO; -LEVA500T PO; -METO-207 PO; +METO1TAB7 PO; -NYST100024 TOP; +NYST1POW9 TOP; +VITA1CAP40 PO; -VITA50003 PO
[2017-05-14 14:39] VITALS: BP 113/59
[2017-05-14] MEDS ORDERED: NS 1,000 ML IV ONE (15:30)
[2017-05-14 15:55] LABS: BASO # 0.1 K/mm3 (0.0-0.2); BASO % 1.1 % (0.0-1.0); EOS # 0.2 K/mm3 (0.0-0.50); EOS % 2.7 % (0.0-3.0); LARGE UNSTAINED CELL # 0.2 K/mm3 (0.0-0.4); LARGE UNSTAINED CELL % 3.2 % (0.0-4.0); LYMPH % 32.3 % (24.0-44.0); MEAN CORPUSCULAR HEMOGLOBIN 32.7 pg (27.0-33.0); MEAN CORPUSCULAR VOLUME 99.3 fl (80.0-96.0); MONO # 0.4 K/mm3 (0.0-0.8); MONO % 6.8 % (0.0-5.0); NEUTROPHILS # 3.4 K/mm3 (1.8-7.7); PLATELET COUNT, AUTOMATED 139 k/mm3 (150-450); RED CELL DISTRIBUTION WIDTH 12.8 % (11.5-14.5); WHITE BLOOD COUNT 6.2 K/mm3 (4.0-10.0)
[2017-05-14 16:09] LABS: OSMOLALITY SERUM 316 MOSM/KG (275-295)
[2017-05-14 16:22] LABS: ALBUMIN 3.1 GM/DL (3.2-5.2); ALBUMIN/GLOBULIN RATIO 0.82 (1.00-1.93); ALKALINE PHOSPHATASE 270 U/L (45-117); ALT/SGPT 27 U/L (12-78); ANION GAP 7 MEQ/L (8-16); AST/SGOT 35 U/L (15-37); BILIRUBIN,DIRECT 0.3 MG/DL (0.0-0.2); BILIRUBIN,TOTAL 0.5 MG/DL (0.2-1.0); BLOOD UREA NITROGEN 11 MG/DL (7-18); CALCIUM LEVEL 8.8 MG/DL (8.5-10.1); CARBON DIOXIDE LEVEL 30 MEQ/L (21-32); CHLORIDE LEVEL 100 MEQ/L (98-107); CREATININE FOR GFR 0.87 MG/DL (0.55-1.02); GLOMERULAR FILTRATION RATE > 60.0 (>51); GLUCOSE, FASTING 557 MG/DL (70-105); MAGNESIUM LEVEL 1.5 MG/DL (1.8-2.4); POTASSIUM SERUM 3.9 MEQ/L (3.5-5.1); SODIUM LEVEL 137 MEQ/L (136-145); TOTAL PROTEIN 6.9 GM/DL (6.4-8.2)
[2017-05-14] MEDS ORDERED: HumuLIN R (REGULAR) INSULIN (NovoLIN R) **100U/ML** PER UNIT IV ONE (16:45)
[2017-05-14] MEDS ORDERED: LEVEMIR (INSULIN DETEMIR) 1 UNITS/0.01ML SC ONE (16:45)
== END 2017-05-14 17:04 | disposition home or self-care (01) ==
LOC: M ED 14:38
DX: E10.65 Type 1 diabetes mellitus with hyperglycemia (principal); D64.9 Anemia, unspecified; I10 Essential (primary) hypertension; E78.00 Pure hypercholesterolemia, unspecified; K57.90 Diverticulosis of intestine, part unspecified, without perforation or abscess without bleeding; N17.9 Acute kidney failure, unspecified; L40.50 Arthropathic psoriasis, unspecified; Z86.14 Personal history of Methicillin resistant Staphylococcus aureus infection; Z96.651 Presence of right artificial knee joint; Z96.661 Presence of right artificial ankle joint; Z87.39 Personal history of other diseases of the musculoskeletal system and connective tissue; Z90.49 Acquired absence of other specified parts of digestive tract; Z87.891 Personal history of nicotine dependence; Z79.4 Long term (current) use of insulin; Z79.899 Other long term (current) drug therapy

== ENCOUNTER 2017-06-20 11:11 | Outpatient (CLI) | payer OTHER ==
[~2017-06-20] VITALS: Ht 162.6 cm; Wt 90.7 kg
[~2017-06-20 11:11] MED LIST changes: +NS 1,000 ML IV ONE
--- NOTE | 2017-06-20 13:13 | ROOR ---
Patient Name: Christina Ngo Procedure Date: 06/20/2017 12:57 PM Date of : 1955 Age: 61 Room: [facility] Gender: Female Note Status: Finalized Procedure: Upper GI endoscopy Indications: Cirrhosis rule out esophageal varices, Follow-up of esophageal varices Providers: Gregg QUEZADA MD Referring MD: [facility] MAMI Mahoney Requesting Provider: Medicines: Monitored Anesthesia Care Complications: No immediate complications. Procedure: Pre-Anesthesia Assessment: - The heart rate, respiratory rate, oxygen saturations, blood pressure, adequacy of pulmonary ventilation, and response to care were monitored throughout the procedure. The Endoscope was introduced through the mouth, and advanced to the second part of duodenum. The upper GI endoscopy was accomplished without difficulty. The patient tolerated the procedure well. Findings: The esophagus was normal. The stomach was normal. The examined duodenum was normal. Impression: - Normal esophagus. - Normal stomach. - Normal examined duodenum. - No specimens collected. Recommendation: - Repeat upper endoscopy in 1 year for surveillance. - Return to my office as previously scheduled. - Start/continue a Non-selective Beta Casey such as Propranolol or Nadolol, titrate to heart rate. Gregg Quezada MD Gregg QUEZADA MD 06/20/2017 1:12:57 PM This report has been signed electronically. Number of Addenda: 0 Note Initiated On: 06/20/2017 12:57 PM Estimated Blood Loss: Estimated blood loss: none. Estimated blood loss: none.
[2017-06-20 13:32] VITALS: BP 122/69
== END 2017-06-20 13:34 | disposition home or self-care (01) ==
LOC: M OPP 11:11
PROVIDERS: ATTEND Internal Medicine Gastroenterology
DX: K74.60 Unspecified cirrhosis of liver (principal); I85.00 Esophageal varices without bleeding; I10 Essential (primary) hypertension; E11.9 Type 2 diabetes mellitus without complications; R01.1 Cardiac murmur, unspecified; M10.9 Gout, unspecified; D64.9 Anemia, unspecified; Z86.14 Personal history of Methicillin resistant Staphylococcus aureus infection; M19.90 Unspecified osteoarthritis, unspecified site; M54.89 Other dorsalgia; G62.9 Polyneuropathy, unspecified; Z78.0 Asymptomatic menopausal state; J00 Acute nasopharyngitis [common cold]; Z96.651 Presence of right artificial knee joint; Z87.891 Personal history of nicotine dependence; Z79.4 Long term (current) use of insulin; Z79.899 Other long term (current) drug therapy; Z79.52 Long term (current) use of systemic steroids; Z80.0 Family history of malignant neoplasm of digestive organs

== ENCOUNTER → 2017-07-05 | Outpatient (CLI) | payer OTHER ==
[~2017-07-05] MED LIST changes: +ALBU17IN INH; -NS 1,000 ML IV ONE; +TRAZ50TA11 PO
--- NOTE | 2017-07-05 17:34 | REP ---
CHEST, TWO VIEWS: COMPARISON: 01/07/2016 There is no evidence of acute infiltrate. No pleural effusion is seen. The heart is normal in size. The mediastinal silhouette is unremarkable. The visualized osseous structures are intact. There are degenerative changes of the spine. IMPRESSION: No acute pulmonary disease. Signed by Santana Pacheco MD 07/05/2017 05:37 P
== END ==
LOC: M LRY 15:24
PROVIDERS: ATTEND Nurse Practitioner Family
DX: R05 Cough (principal)
CPT/HCPCS: 71020; 93005; 94640; G0463

== ENCOUNTER 2017-07-31 20:47 | Emergency (ER) | payer OTHER ==
[~2017-07-31] VITALS: Ht 162.6 cm; Wt 92.7 kg
[~2017-07-31 20:47] MED LIST changes: -ALBU17IN INH; -TRAZ50TA11 PO
[2017-08-01] MEDS ORDERED: TETRACAINE 0.5% OPHTH SOLN 4ML OS ONE (02:30)
[2017-08-01] MEDS ORDERED: MORPHINE 2 MG/ML 1ML SYRINGE IV ONE (02:30)
[2017-08-01] MEDS ORDERED: TROPICAMIDE 1% OPHTH SOLN 2ML OS ONE (05:30)
[2017-08-01 06:38] VITALS: BP 131/65
== END 2017-08-01 06:41 | disposition home or self-care (01) ==
LOC: M ED 20:47
DX: H20.012 Primary iridocyclitis, left eye (principal); E11.9 Type 2 diabetes mellitus without complications; I10 Essential (primary) hypertension; K21.9 Gastro-esophageal reflux disease without esophagitis; K74.60 Unspecified cirrhosis of liver; Z79.4 Long term (current) use of insulin; Z79.899 Other long term (current) drug therapy

== ENCOUNTER 2017-08-21 22:42 | Emergency (ER) | payer OTHER ==
[~2017-08-21] VITALS: Ht 162.6 cm; Wt 95.5 kg
[2017-08-21] MEDS ORDERED: TRAZ50TA11 PO (22:58)
[2017-08-21] MEDS ORDERED: ALBU17IN INH (22:58)
[2017-08-22] MEDS ORDERED: PREGABALIN 50 MG CAP (LYRICA) PO ONE (00:15)
[2017-08-22] MEDS ORDERED: GABAPENTIN 300 MG CAP PO ONE (00:15)
[2017-08-22 00:24] LABS: BASO % 0.6 % (0.0-1.0); EOS # 0.2 10^3/uL (0.0-0.50); EOS % 2.3 % (0.0-3.0); IMMATURE GRANULOCYTE % 0.2 % (0-0); LYMPH # 2.2 10^3/uL (1.5-4.5); LYMPH % 32.8 % (24.0-44.0); MEAN CORPUSCULAR HEMOGLOBIN 28.9 pg (27.0-33.0); MEAN CORPUSCULAR HGB CONC 32.9 g/dl (32.0-36.5); MEAN CORPUSCULAR VOLUME 87.8 fl (80.0-96.0); MONO # 0.6 10^3/uL (0.0-0.8); MONO % 9.2 % (0.0-5.0); NEUTROPHILS # 3.6 10^3/uL (1.8-7.7); NEUTROPHILS % 54.9 % (36.0-66.0); PLATELET COUNT, AUTOMATED 166 10^3/uL (150-450); RED CELL DISTRIBUTION WIDTH 14.1 % (11.5-14.5); WHITE BLOOD COUNT 6.6 10^3/uL (4.0-10.0)
[2017-08-22 00:43] LABS: ANION GAP 7 MEQ/L (8-16); BLOOD UREA NITROGEN 8 MG/DL (7-18); CALCIUM LEVEL 8.5 MG/DL (8.8-10.2); CARBON DIOXIDE LEVEL 30 MEQ/L (21-32); CHLORIDE LEVEL 103 MEQ/L (98-107); CREATININE FOR GFR 0.75 MG/DL (0.55-1.02); GLOMERULAR FILTRATION RATE > 60.0 (>45); GLUCOSE, FASTING 264 MG/DL (80-110); POTASSIUM SERUM 3.5 MEQ/L (3.5-5.1); SODIUM LEVEL 140 MEQ/L (136-145)
[2017-08-22] MEDS ORDERED: PERCOCET 5MG/325MG TAB PO ONE (01:30)
[2017-08-22 01:37] VITALS: BP 146/80
== END 2017-08-22 02:02 | disposition home or self-care (01) ==
LOC: M ED 22:42
DX: E11.42 Type 2 diabetes mellitus with diabetic polyneuropathy (principal); I10 Essential (primary) hypertension; J32.9 Chronic sinusitis, unspecified; K74.60 Unspecified cirrhosis of liver; K21.9 Gastro-esophageal reflux disease without esophagitis; M54.9 Dorsalgia, unspecified; G89.29 Other chronic pain; E78.5 Hyperlipidemia, unspecified; D64.9 Anemia, unspecified; F99 Mental disorder, not otherwise specified; Z79.4 Long term (current) use of insulin; Z79.899 Other long term (current) drug therapy; Z79.52 Long term (current) use of systemic steroids; Z87.891 Personal history of nicotine dependence; Z87.440 Personal history of urinary (tract) infections; Z87.19 Personal history of other diseases of the digestive system; Z86.14 Personal history of Methicillin resistant Staphylococcus aureus infection; Z98.890 Other specified postprocedural states

== ENCOUNTER 2017-10-26 20:19 | Emergency (ER) | payer OTHER ==
[~2017-10-26] VITALS: Ht 162.6 cm; Wt 97.7 kg
[~2017-10-26 20:19] MED LIST changes: +ALBU17IN INH; +TRAZ50TA11 PO
[2017-10-26] MEDS ORDERED: METF500T4 PO (20:33)
[2017-10-26] MEDS ORDERED: PREG50CA PO (20:33)
[2017-10-26] MEDS ORDERED: NS 1,000 ML IV ONE (21:15)
[2017-10-26 21:35] LABS: ALBUMIN 2.7 GM/DL (3.2-5.2); ALBUMIN/GLOBULIN RATIO 0.64 (1.00-1.93); ALKALINE PHOSPHATASE 198 U/L (45-117); ALT/SGPT 13 U/L (12-78); ANION GAP 7 MEQ/L (8-16); AST/SGOT 26 U/L (7-37); BILIRUBIN,DIRECT 0.1 MG/DL (0.0-0.2); BILIRUBIN,TOTAL 0.5 MG/DL (0.2-1.0); BLOOD UREA NITROGEN 8 MG/DL (7-18); CALCIUM LEVEL 8.1 MG/DL (8.8-10.2); CARBON DIOXIDE LEVEL 30 MEQ/L (21-32); CHLORIDE LEVEL 100 MEQ/L (98-107); CREATININE FOR GFR 0.82 MG/DL (0.55-1.02); GLOMERULAR FILTRATION RATE > 60.0 (>45); GLUCOSE, FASTING 398 MG/DL (80-110); POTASSIUM SERUM 3.4 MEQ/L (3.5-5.1); SODIUM LEVEL 137 MEQ/L (136-145); TOTAL PROTEIN 6.9 GM/DL (6.4-8.2)
[2017-10-26 21:39] LABS: BASO % 0.5 % (0.0-1.0); EOS # 0.2 10^3/uL (0.0-0.50); IMMATURE GRANULOCYTE % 0.3 % (0-0); LYMPH # 1.6 10^3/uL (1.5-4.5); LYMPH % 26.6 % (24.0-44.0); MEAN CORPUSCULAR HEMOGLOBIN 24.4 pg (27.0-33.0); MEAN CORPUSCULAR HGB CONC 29.8 g/dl (32.0-36.5); MEAN CORPUSCULAR VOLUME 81.9 fl (80.0-96.0); MONO # 0.6 10^3/uL (0.0-0.8); MONO % 10.5 % (0.0-5.0); NEUTROPHILS # 3.5 10^3/uL (1.8-7.7); NEUTROPHILS % 59.1 % (36.0-66.0); PLATELET COUNT, AUTOMATED 169 10^3/uL (150-450); RED CELL DISTRIBUTION WIDTH 15.3 % (11.5-14.5); WHITE BLOOD COUNT 5.9 10^3/uL (4.0-10.0)
[2017-10-26] MEDS ORDERED: PERCOCET 5MG/325MG TAB PO ONE (21:45)
[2017-10-26] MEDS ORDERED: ISOVUE-370 76% 100ML VIAL (Q9967) As Ordered ONE (22:16)
[2017-10-26 22:28] LABS: FERRITIN 7 NG/ML (8-252); PERCENT SATURATION 5.8 % (13.2-45.0); TOTAL IRON BINDING CAPACITY 431 UG/DL (250-450)
[2017-10-26] MEDS ORDERED: GI COCKTAIL 50ML BTL(HYOSCYAMINE/MAALOX/LIDOCAINE VISCOUS)(1:3:1) PO ONE (22:45)
--- NOTE | 2017-10-26 23:00 | REPUSA ---
CT angiogram of the chest Clinical statement: Chest pain and shortness of breath. Technique: Multiple axial CT images were obtained from the thoracic inlet through the upper abdomen a fter a bolus administration of nonionic intravenous contrast. Coronal and sagittal reconstructions we re also obtained. No comparison is available. Findings: The pulmonary arteries are well-opacified with contrast, with no intraluminal filling defec ts to suggest embolism. The thoracic aorta is unremarkable. Thyroid gland is within normal limits. Th ere is no thoracic lymphadenopathy. There are no pericardial or pleural effusions. The lungs are jacob r. Limited imaging of the upper abdomen is unremarkable. There are no suspicious osseous lesions. Impression: Unremarkable CT examination of the chest. No evidence of pulmonary embolism.
[2017-10-26] MEDS ORDERED: POTASSIUM CHLORIDE 10 MEQ SR TABLET PO ONE (23:30)
[2017-10-26] MEDS ORDERED: HYDROmorphone HCL 1 MG/ML SYRINGE (J1170) IV ONE (23:30)
[2017-10-26] MEDS ORDERED: KETOROLAC 30 MG/ML VIAL (J1885) IV ONE (23:30)
[2017-10-26 23:59] VITALS: BP 137/58
[2017-10-27] MEDS ORDERED: OXYC1TAB23 PO (00:38)
[2017-10-27] MEDS ORDERED: OXYCODONE/APAP 5MG/325MG(BULK FOR ED) 1 TABLET PO ONE (00:45)
--- NOTE | 2017-10-27 05:51 | ECGEPIP ---
Stationary ECG Study [facility] - ED Test Date: 2017-10-26 Pat Name: AUDREY VILLALOBOS Department: Room: - Gender: F Roll Finisher: LittleB: 1955 Requested By: NANO Roberts Order Number: [id number] Reading MD: Asif Rodriguez Measurements Intervals [place] Rate: 103 P: 21 MT: 107 QRS: -22 QRSD: 86 T: 46 QT: 374 QTc: 491 Interpretive Statements SINUS TACHYCARDIA WITH SHORT MT INTERVAL MODERATE VOLTAGE CRITERIA FOR LVH, CONSIDER NORMAL VARIANT NONSPECIFIC T-WAVE ABNORMALITY SIMILAR TO 01/07/16 Electronically Signed On 10-27-2017 5:51:15 EST by Asif Rodriguez
--- NOTE | 2017-10-27 07:45 | REP ---
Both that the chest PA and lateral views: Comparison 01/30/2017. The lung kent are clear. The cardiac size is normal The bari, mediastinum, and bony thorax are unremarkable. Impression: Negative PA and lateral chest. There is no interval change. No Signed by Santana Alejo MD 10/27/2017 07:37 A
== END 2017-10-27 00:59 | disposition home or self-care (01) ==
LOC: M ED 20:19
DX: R07.89 Other chest pain (principal); E11.9 Type 2 diabetes mellitus without complications; K74.60 Unspecified cirrhosis of liver; M10.9 Gout, unspecified; E78.5 Hyperlipidemia, unspecified; K21.9 Gastro-esophageal reflux disease without esophagitis; Z79.4 Long term (current) use of insulin; Z79.899 Other long term (current) drug therapy; Z79.84 Long term (current) use of oral hypoglycemic drugs; Z79.52 Long term (current) use of systemic steroids; Z87.891 Personal history of nicotine dependence; Z98.890 Other specified postprocedural states
CPT/HCPCS: 71020; 71275; 80048; 80076; 82550; 82553; 82728; 83550; 83690; 84443; 84484; 85025; 85379; 86140; 93005; 93041; 94760; 96374; 96375; 99285; J1170; J1885; Q9967

== ENCOUNTER 2017-11-08 19:01 | Emergency (ER) | payer OTHER ==
[2017-11-08 22:02] LABS: BASO % 0.4 % (0.0-1.0); EOS # 0.3 10^3/uL (0.0-0.50); EOS % 2.9 % (0.0-3.0); IMMATURE GRANULOCYTE % 0.1 % (0-0); LYMPH # 2.3 10^3/uL (1.5-4.5); LYMPH % 24.7 % (24.0-44.0); MEAN CORPUSCULAR HEMOGLOBIN 22.9 pg (27.0-33.0); MEAN CORPUSCULAR HGB CONC 29.7 g/dl (32.0-36.5); MEAN CORPUSCULAR VOLUME 77.1 fl (80.0-96.0); MONO # 0.8 10^3/uL (0.0-0.8); NEUTROPHILS # 5.7 10^3/uL (1.8-7.7); NEUTROPHILS % 62.9 % (36.0-66.0); PLATELET COUNT, AUTOMATED 250 10^3/uL (150-450); RED CELL DISTRIBUTION WIDTH 15.9 % (11.5-14.5); WHITE BLOOD COUNT 9.1 10^3/uL (4.0-10.0)
[2017-11-08] MEDS: NS 1,000 ML IV (22:05)
[2017-11-08] MEDS: METOCLOPRAMIDE INJ 10MG/2ML VIAL (J2765) IV (22:05)
[2017-11-08] MEDS: GI COCKTAIL 50ML BTL(HYOSCYAMINE/MAALOX/LIDOCAINE VISCOUS)(1:3:1) PO (22:05)
[2017-11-08 22:24] LABS: ALBUMIN 3.4 GM/DL (3.2-5.2); ALBUMIN/GLOBULIN RATIO 0.76 (1.00-1.93); ALKALINE PHOSPHATASE 193 U/L (45-117); ALT/SGPT 13 U/L (12-78); AMYLASE 32 U/L (25-115); ANION GAP 5 MEQ/L (8-16); AST/SGOT 26 U/L (7-37); BILIRUBIN,DIRECT 0.2 MG/DL (0.0-0.2); BILIRUBIN,TOTAL 0.7 MG/DL (0.2-1.0); BLOOD UREA NITROGEN 7 MG/DL (7-18); CALCIUM LEVEL 8.4 MG/DL (8.8-10.2); CARBON DIOXIDE LEVEL 32 MEQ/L (21-32); CHLORIDE LEVEL 103 MEQ/L (98-107); CREATININE FOR GFR 0.67 MG/DL (0.55-1.02); GLOMERULAR FILTRATION RATE > 60.0 (>45); GLUCOSE, FASTING 254 MG/DL (80-110); POTASSIUM SERUM 3.5 MEQ/L (3.5-5.1); SODIUM LEVEL 140 MEQ/L (136-145); TOTAL PROTEIN 7.9 GM/DL (6.4-8.2)
[2017-11-08 22:25] LABS: LACTIC ACID SEPSIS PROTOCOL 1.3 MMOL/L (0.4-2.0)
[2017-11-08] MEDS ORDERED: ISOVUE-370 76% 100ML VIAL (Q9967) As Ordered (22:44)
[2017-11-09] MEDS: NORCO 5/325MG TABLET (BULK FOR ED) PO (00:45)
== END 2017-11-09 00:47 | disposition home or self-care (01) ==
LOC: M ED 11-09 00:47
DX: R10.9 Unspecified abdominal pain (principal); I10 Essential (primary) hypertension; K74.60 Unspecified cirrhosis of liver; E11.9 Type 2 diabetes mellitus without complications; L40.50 Arthropathic psoriasis, unspecified; E78.00 Pure hypercholesterolemia, unspecified; K21.9 Gastro-esophageal reflux disease without esophagitis; J32.9 Chronic sinusitis, unspecified; Z87.19 Personal history of other diseases of the digestive system; Z79.899 Other long term (current) drug therapy; Z79.84 Long term (current) use of oral hypoglycemic drugs; Z79.4 Long term (current) use of insulin; Z79.52 Long term (current) use of systemic steroids; Z87.891 Personal history of nicotine dependence; Z87.448 Personal history of other diseases of urinary system; Z86.2 Personal history of diseases of the blood and blood-forming organs and certain disorders involving the immune mechanism; Z98.890 Other specified postprocedural states
CPT/HCPCS: Q9967

== ENCOUNTER 2017-11-20 18:35 | Emergency (ER) | payer OTHER ==
[2017-11-20 19:45] LABS: BASO % 0.6 % (0.0-1.0); EOS # 0.2 10^3/uL (0.0-0.50); EOS % 3.8 % (0.0-3.0); HEMATOCRIT 34.9 % (36.0-47.0); HEMOGLOBIN 10.1 g/dl (12.0-16.0); IMMATURE GRANULOCYTE % 0.2 % (0-0); LYMPH % 31.1 % (24.0-44.0); MEAN CORPUSCULAR HEMOGLOBIN 22.2 pg (27.0-33.0); MEAN CORPUSCULAR HGB CONC 28.9 g/dl (32.0-36.5); MEAN CORPUSCULAR VOLUME 76.9 fl (80.0-96.0); MONO # 0.6 10^3/uL (0.0-0.8); MONO % 9.9 % (0.0-5.0); NEUTROPHILS # 3.5 10^3/uL (1.8-7.7); NEUTROPHILS % 54.4 % (36.0-66.0); PLATELET COUNT, AUTOMATED 192 10^3/uL (150-450); RED BLOOD COUNT 4.54 10^6/uL (4.00-5.40); RED CELL DISTRIBUTION WIDTH 16.9 % (11.5-14.5); WHITE BLOOD COUNT 6.4 10^3/uL (4.0-10.0)
[2017-11-20] MEDS: MORPHINE 2 MG/ML 1ML SYRINGE IV ×4 (19:52→21:20)
[2017-11-20] MEDS: ASPIRIN 81 MG CHEW TABLET PO (19:52)
[2017-11-20] MEDS: NS 1,000 ML IV (19:53)
[2017-11-20 19:55] LABS: INR 1.12; PROTHROMBIN TIME 14.6 SECONDS (12.4-14.5)
[2017-11-20 20:15] LABS: ALBUMIN 3.2 GM/DL (3.2-5.2); ALBUMIN/GLOBULIN RATIO 0.74 (1.00-1.93); ALKALINE PHOSPHATASE 177 U/L (45-117); ALT/SGPT 16 U/L (12-78); ANION GAP 8 MEQ/L (8-16); AST/SGOT 27 U/L (7-37); BILIRUBIN,DIRECT 0.2 MG/DL (0.0-0.2); BILIRUBIN,TOTAL 0.7 MG/DL (0.2-1.0); BLOOD UREA NITROGEN 10 MG/DL (7-18); CALCIUM LEVEL 8.5 MG/DL (8.8-10.2); CARBON DIOXIDE LEVEL 30 MEQ/L (21-32); CHLORIDE LEVEL 98 MEQ/L (98-107); CPK CREATINE PHOSPHOKINASE 37 U/L (26-192); GLOMERULAR FILTRATION RATE > 60.0 (>45); LIPASE 210 U/L (73-393); POTASSIUM SERUM 3.7 MEQ/L (3.5-5.1); SODIUM LEVEL 136 MEQ/L (136-145); TOTAL PROTEIN 7.5 GM/DL (6.4-8.2); TROPONIN I < 0.02 NG/ML (< 0.10)
[2017-11-20 20:16] LABS: CK-MB VALUE MASS 1.1 NG/ML (0.0-3.6); MB/CK RELATIVE INDEX 2.97 (< OR =4)
[2017-11-20 20:20] LABS: GLUCOSE, FASTING 480 MG/DL (80-110)
[2017-11-20] MEDS: HumuLIN R (REGULAR) INSULIN (NovoLIN R) **100U/ML** PER UNIT IV ×2 (20:30→22:00)
[2017-11-20] MEDS ORDERED: NS 1,000 ML IV (20:30)
[2017-11-20 21:33] LABS: BEDSIDE GLUCOSE 351 MG/DL (80-115)
[2017-11-20] MEDS ORDERED: HumuLIN R (REGULAR) INSULIN (NovoLIN R) **100U/ML** PER UNIT IV (22:30)
[2017-11-20 23:51] LABS: BEDSIDE GLUCOSE 176 MG/DL (80-115)
== END 2017-11-21 00:14 | disposition home or self-care (01) ==
LOC: M ED 11-21 00:14
DX: R07.89 Other chest pain (principal); E11.65 Type 2 diabetes mellitus with hyperglycemia; I10 Essential (primary) hypertension; E78.4 Other hyperlipidemia; Z87.891 Personal history of nicotine dependence
CPT/HCPCS: 71046

== ENCOUNTER → 2017-11-29 | Outpatient (REF) | payer OTHER ==
[2017-11-29 12:13] LABS: CHOLESTEROL LEVEL 176 MG/DL (<200); CHOLESTEROL RISK RATIO 4.093 (<5); HDL CHOLESTEROL 43 MG/DL (>40); NON-HDL-C 133 MG/DL; TRIGLYCERIDES LEVEL 160 MG/DL (<150)
[2017-11-29 12:41] LABS: ESTIMATED AVERAGE GLUCOSE 298 MG/DL (60-110)
[2017-11-29 12:43] LABS: GAMMA GLUTAMYLTRANSPEPTIDASE 208 U/L (5-55)
[2017-11-29 14:35] LABS: MALB URINE SIEMENS 36.6 MG/L; MAU/CREAT RATIO 19.8 MCG/MG (0.0-30.0)
== END ==
LOC: M SFHCPLAZ 10:18
DX: R74.8 Abnormal levels of other serum enzymes (principal); E11.65 Type 2 diabetes mellitus with hyperglycemia; E78.5 Hyperlipidemia, unspecified
CPT/HCPCS: 82977

== ENCOUNTER 2017-12-03 22:47 | Emergency (ER) | payer OTHER ==
[2017-12-04] MEDS: NS 500 ML IV (03:03)
[2017-12-04] MEDS: MORPHINE 4 MG/ML 1ML SYRINGE IV (03:04)
[2017-12-04 03:09] LABS: BASO # 0.1 10^3/uL (0.0-0.2); BASO % 0.8 % (0.0-1.0); EOS # 0.2 10^3/uL (0.0-0.50); HEMATOCRIT 35.1 % (36.0-47.0); HEMOGLOBIN 10.5 g/dl (12.0-16.0); IMMATURE GRANULOCYTE % 0.2 % (0-0); LYMPH # 2.7 10^3/uL (1.5-4.5); LYMPH % 32.2 % (24.0-44.0); MEAN CORPUSCULAR HEMOGLOBIN 22.2 pg (27.0-33.0); MEAN CORPUSCULAR HGB CONC 29.9 g/dl (32.0-36.5); MEAN CORPUSCULAR VOLUME 74.2 fl (80.0-96.0); MONO # 0.8 10^3/uL (0.0-0.8); MONO % 9.7 % (0.0-5.0); NEUTROPHILS # 4.7 10^3/uL (1.8-7.7); NEUTROPHILS % 55.1 % (36.0-66.0); PLATELET COUNT, AUTOMATED 195 10^3/uL (150-450); RED BLOOD COUNT 4.73 10^6/uL (4.00-5.40); RED CELL DISTRIBUTION WIDTH 17.6 % (11.5-14.5); WHITE BLOOD COUNT 8.5 10^3/uL (4.0-10.0)
[2017-12-04 03:19] LABS: APPEARANCE, URINE CLEAR (CLEAR); BACTERIA, URINE AUTO 1+ (NEGATIVE); BILIRUBIN, URINE AUTO NEGATIVE (NEGATIVE); BLOOD, URINE BLOOD NEGATIVE (NEGATIVE); COLOR, URINE YELLOW (YELLOW); GLUCOSE, URINE (UA) AUTO 2+ mg/dL (NEGATIVE); KETONE, URINE AUTO NEGATIVE (NEGATIVE); LEUKOCYTE ESTERASE, URINE AUTO TRACE (NEGATIVE); NITRITE, URINE AUTO NEGATIVE (NEGATIVE); PROTEIN, URINE AUTO NEGATIVE (NEGATIVE); RBC, URINE AUTO 2 /HPF (0-3); SPECIFIC GRAVITY URINE AUTO 1.008 (1.002-1.035); SQUAMOUS EPITHELIAL CELL UR AU 1 /HPF (0-6); UROBILINOGEN, URINE AUTO 0.2 mg/dL (0.0-2.0); WBC, URINE AUTO 4 /HPF (0-3)
[2017-12-04 03:30] LABS: ALBUMIN 3.2 GM/DL (3.2-5.2); ALBUMIN/GLOBULIN RATIO 0.74 (1.00-1.93); ALKALINE PHOSPHATASE 182 U/L (45-117); ALT/SGPT 17 U/L (12-78); AMYLASE 39 U/L (25-115); ANION GAP 9 MEQ/L (8-16); AST/SGOT 32 U/L (7-37); BILIRUBIN,DIRECT 0.2 MG/DL (0.0-0.2); BILIRUBIN,TOTAL 0.4 MG/DL (0.2-1.0); BLOOD UREA NITROGEN 12 MG/DL (7-18); CALCIUM LEVEL 8.5 MG/DL (8.8-10.2); CARBON DIOXIDE LEVEL 29 MEQ/L (21-32); CHLORIDE LEVEL 98 MEQ/L (98-107); CREATININE FOR GFR 0.94 MG/DL (0.55-1.02); GLOMERULAR FILTRATION RATE > 60.0 (>45); GLUCOSE, FASTING 317 MG/DL (80-110); LIPASE 276 U/L (73-393); POTASSIUM SERUM 3.7 MEQ/L (3.5-5.1); SODIUM LEVEL 136 MEQ/L (136-145); TOTAL PROTEIN 7.5 GM/DL (6.4-8.2)
[2017-12-04] MEDS ORDERED: ISOVUE-370 76% 100ML VIAL (Q9967) As Ordered (03:45)
[2017-12-04] MEDS: HumuLIN R (REGULAR) INSULIN (NovoLIN R) **100U/ML** PER UNIT IV (03:49)
[2017-12-04 04:08] LABS: LACTIC ACID SEPSIS PROTOCOL 2.8 MMOL/L (0.4-2.0)
[2017-12-04 04:47] LABS: BEDSIDE GLUCOSE 222 MG/DL (80-115)
== END 2017-12-04 06:31 | disposition home or self-care (01) ==
LOC: M ED 22:47
DX: I88.0 Nonspecific mesenteric lymphadenitis (principal); E86.0 Dehydration; K74.60 Unspecified cirrhosis of liver; R16.1 Splenomegaly, not elsewhere classified; E11.9 Type 2 diabetes mellitus without complications; I10 Essential (primary) hypertension; K21.9 Gastro-esophageal reflux disease without esophagitis; M19.90 Unspecified osteoarthritis, unspecified site; Z79.84 Long term (current) use of oral hypoglycemic drugs; Z79.899 Other long term (current) drug therapy; Z79.4 Long term (current) use of insulin; Z79.52 Long term (current) use of systemic steroids; Z98.890 Other specified postprocedural states
CPT/HCPCS: Q9967

== ENCOUNTER → 2017-12-22 | Outpatient (CLI) | payer OTHER | LOC: M RAD 09:02 | DX: K74.60 Unspecified cirrhosis of liver (principal); N28.1 Cyst of kidney, acquired; M25.751 Osteophyte, right hip; M25.851 Other specified joint disorders, right hip; Z90.49 Acquired absence of other specified parts of digestive tract | CPT/HCPCS: 76705 ==

== ENCOUNTER → 2017-12-22 | Outpatient (CLI) | payer OTHER | LOC: M RAD 09:42 | DX: M25.751 Osteophyte, right hip (principal); M25.851 Other specified joint disorders, right hip ==

== ENCOUNTER 2018-01-18 21:27 | Emergency (ER) | payer OTHER ==
[2018-01-19 00:07] LABS: KETONE, URINE AUTO RFX TRACE mg/dL (NEGATIVE); LEUKOCYTE ESTERASE UR AUTO RFX NEGATIVE (NEGATIVE); MUCUS, URINE RFX SMALL (NEGATIVE); NITRITE, URINE AUTO RFX NEGATIVE (NEGATIVE); RBC, URINE AUTO RFX 1 /HPF (0-3); SPECIFIC GRAVITY UR AUTO RFX 1.027 (1.002-1.035); SQUAM EPITHELIAL CELL UR AURFX 2 /HPF (0-6); WBC, URINE AUTO RFX 0 /HPF (0-3)
[2018-01-19 00:17] LABS: ALBUMIN 3.2 GM/DL (3.2-5.2); ALBUMIN/GLOBULIN RATIO 0.76 (1.00-1.93); ALKALINE PHOSPHATASE 197 U/L (45-117); ALT/SGPT 11 U/L (12-78); ANION GAP 7 MEQ/L (8-16); AST/SGOT 37 U/L (7-37); BILIRUBIN,TOTAL 0.6 MG/DL (0.2-1.0); BLOOD UREA NITROGEN 8 MG/DL (7-18); CALCIUM LEVEL 8.5 MG/DL (8.8-10.2); CARBON DIOXIDE LEVEL 30 MEQ/L (21-32); CHLORIDE LEVEL 103 MEQ/L (98-107); CREATININE FOR GFR 0.68 MG/DL (0.55-1.30); GLOMERULAR FILTRATION RATE > 60.0 (>45); GLUCOSE, FASTING 233 MG/DL (70-100); POTASSIUM SERUM 3.9 MEQ/L (3.5-5.1); SODIUM LEVEL 140 MEQ/L (136-145); TOTAL PROTEIN 7.4 GM/DL (6.4-8.2)
[2018-01-19] MEDS ORDERED: ISOVUE-370 76% 100ML VIAL (Q9967) As Ordered (00:26)
[2018-01-19 00:27] LABS: BASO # 0.1 10^3/uL (0.0-0.2); BASO % 0.8 % (0.0-1.0); EOS # 0.3 10^3/uL (0.0-0.50); EOS % 3.6 % (0.0-3.0); HEMATOCRIT 39.8 % (36.0-47.0); HEMOGLOBIN 12.2 g/dl (12.0-16.0); IMMATURE GRANULOCYTE % 0.1 % (0-3.0); LYMPH # 2.2 10^3/uL (1.5-4.5); MEAN CORPUSCULAR HEMOGLOBIN 24.3 pg (27.0-33.0); MEAN CORPUSCULAR HGB CONC 30.7 g/dl (32.0-36.5); MEAN CORPUSCULAR VOLUME 79.1 fl (80.0-96.0); MONO # 0.7 10^3/uL (0.0-0.8); NEUTROPHILS % 55.5 % (36.0-66.0); PLATELET COUNT, AUTOMATED 169 10^3/uL (150-450); RED BLOOD COUNT 5.03 10^6/uL (4.00-5.40); RED CELL DISTRIBUTION WIDTH 23.4 % (11.5-14.5); WHITE BLOOD COUNT 7.2 10^3/uL (4.0-10.0)
[2018-01-19] MEDS: KETOROLAC 30 MG/ML VIAL (J1885) IV (00:29)
[2018-01-19] MEDS: NS 1,000 ML IV (00:55)
[2018-01-19] MEDS ORDERED: TOBRADEX OPHTH SUSP 2.5 ML OU (01:15)
[2018-01-19] MEDS ORDERED: AMOXICILLIN SUSP 400 MG/5 ML ORAL SYRINGE *ED PO (01:15)
[2018-01-19] MEDS: BACTRIM 160MG/800MG DS TAB PO (02:02)
[2018-01-19] MEDS: PERCOCET 5MG/325MG TAB PO (02:03)
== END 2018-01-19 02:38 | disposition home or self-care (01) ==
LOC: M ED 21:27
DX: M79.3 Panniculitis, unspecified (principal); E11.9 Type 2 diabetes mellitus without complications; I10 Essential (primary) hypertension; K21.9 Gastro-esophageal reflux disease without esophagitis; K57.90 Diverticulosis of intestine, part unspecified, without perforation or abscess without bleeding; Z87.891 Personal history of nicotine dependence; K74.60 Unspecified cirrhosis of liver; R16.1 Splenomegaly, not elsewhere classified; Z90.49 Acquired absence of other specified parts of digestive tract; Z79.4 Long term (current) use of insulin; Z79.899 Other long term (current) drug therapy
CPT/HCPCS: Q9967

== ENCOUNTER 2018-01-27 10:27 | Emergency (ER) | payer OTHER ==
[2018-01-27] MEDS: OXYMETAZOLINE NASAL SPRAY (AFRIN) (11:00)
[2018-01-27 11:29] LABS: BASO % 0.6 % (0.0-1.0); EOS # 0.2 10^3/uL (0.0-0.50); EOS % 3.5 % (0.0-3.0); HEMATOCRIT 37.3 % (36.0-47.0); HEMOGLOBIN 11.5 g/dl (12.0-16.0); IMMATURE GRANULOCYTE % 0.2 % (0-3.0); LYMPH # 1.9 10^3/uL (1.5-4.5); LYMPH % 29.3 % (24.0-44.0); MEAN CORPUSCULAR HEMOGLOBIN 25.4 pg (27.0-33.0); MEAN CORPUSCULAR HGB CONC 30.8 g/dl (32.0-36.5); MEAN CORPUSCULAR VOLUME 82.5 fl (80.0-96.0); MONO # 0.6 10^3/uL (0.0-0.8); MONO % 9.3 % (0.0-5.0); NEUTROPHILS # 3.7 10^3/uL (1.8-7.7); NEUTROPHILS % 57.1 % (36.0-66.0); PLATELET COUNT, AUTOMATED 207 10^3/uL (150-450); RED BLOOD COUNT 4.52 10^6/uL (4.00-5.40); RED CELL DISTRIBUTION WIDTH 23.1 % (11.5-14.5); WHITE BLOOD COUNT 6.6 10^3/uL (4.0-10.0)
== END 2018-01-27 11:42 | disposition home or self-care (01) ==
LOC: M ED 10:27
DX: R04.0 Epistaxis (principal); Z79.899 Other long term (current) drug therapy; Z79.4 Long term (current) use of insulin
CPT/HCPCS: 85025

== ENCOUNTER → 2018-02-05 | Outpatient (REF) | payer OTHER | LOC: M SFHCWAGY 15:19 | DX: Z12.4 Encounter for screening for malignant neoplasm of cervix (principal) | CPT/HCPCS: G0123 ==

== ENCOUNTER → 2018-02-05 | Outpatient (CLI) | payer OTHER | LOC: M WHC 14:44 | DX: Z12.31 Encounter for screening mammogram for malignant neoplasm of breast (principal); Z78.0 Asymptomatic menopausal state; Z80.0 Family history of malignant neoplasm of digestive organs | CPT/HCPCS: 77067 ==

== ENCOUNTER 2018-02-22 22:21 | Observation (INO) | payer OTHER ==
[~2018-02-22 22:21] MED LIST changes: -ACET30TAB PO; -ACET50TAOT PO; -ALBU17IN INH; -ALLO100T PO; +ALLOPURINOL 100 MG TAB PO; -AMIT10TA PO; -AMIT25TA PO; -ASCO500T PO; -ASPI81TA21 PO; -ASPI81TA85 PO; -BACT800T5 PO; -CETI10TA PO; -CETI1SYP16 PO; -CETI5TAB2 PO; -CIPR-249 PO; -CYCL5TAB PO; -CYMB60CA3 PO; -DIAB5TAB PO; -DRIS50002 PO; -DULO30CA PO; -FERR22EL PO; -FERR325T3 PO; -FLAG500T PO; -FURO40TA2 PO; -GABA-282 PO; -GLYB5TA PO; -HEPA100SY IV; -HYDROCODONE/ACETA PO; -HYDROCORTISONE PR; -IBUP80TA PO; -INSUDET SC; -INSUH10VL SC; -INSUHUMDS SC; -IRON50TA PO; -KEFL500C17 PO; -LANTINJ4 SC; -LEVA1TAB2 PO; -LISI-538 PO; -LISI-542 PO; -LISI10TA4 PO; +LISINOPRIL 5 MG TAB PO; -MECL-68 PO; -MESA24CASA PO; -METO1TAB7 PO; -NYST10CR TOP; -NYST1POW9 TOP; -OMEP20CA3 PO; +OMEPRAZOLE 20 MG CAP PO; -OXYC1TAB23 PO; -PERCOCET PO; -PRAMOXINE PR; -PRED5TA PO; -PRESCAP PO; -PROP60CA PO; +PROPRANOLOL 60 MG LA CAP PO; -ROPI0.5T PO; -ROPI1TAB PO; -SALI0.9I2 IV; -SIMV10TA2 PO; -SIMV20TA2 PO; -SIMV40TA2 PO; +SIMVASTATIN 40 MG TAB PO; -SLEE25TA PO; -TRAM50TA2 PO; -TRAZ50TA11 PO; -TYLE167L PO; -TYLE1TAB5 PO; -VANC10IN IV; -VITA-115 PO; -VITA1CAP40 PO; -VITA1CHW5 PO; -ZYVO100T PO
[2018-02-23] MEDS: ONDANSETRON 4MG/2ML VIAL (J2405) IV (01:30)
[2018-02-23 02:07] LABS: BASO % 0.4 % (0.0-1.0); EOS # 0.2 10^3/uL (0.0-0.50); EOS % 2.2 % (0.0-3.0); HEMATOCRIT 37.3 % (36.0-47.0); HEMOGLOBIN 11.9 g/dl (12.0-15.5); IMMATURE GRANULOCYTE % 0.2 % (0-3.0); LYMPH # 1.7 10^3/uL (1.5-4.5); LYMPH % 18.3 % (24.0-44.0); MEAN CORPUSCULAR HEMOGLOBIN 26.4 pg (27.0-33.0); MEAN CORPUSCULAR HGB CONC 31.9 g/dl (32.0-36.5); MEAN CORPUSCULAR VOLUME 82.7 fl (80.0-96.0); MONO % 10.7 % (0.0-5.0); NEUTROPHILS # 6.2 10^3/uL (1.8-7.7); NEUTROPHILS % 68.2 % (36.0-66.0); PLATELET COUNT, AUTOMATED 174 10^3/uL (150-450); RED BLOOD COUNT 4.51 10^6/uL (4.00-5.40); RED CELL DISTRIBUTION WIDTH 18.1 % (11.5-14.5); WHITE BLOOD COUNT 9.1 10^3/uL (4.0-10.0)
[2018-02-23] MEDS: NS 1,000 ML IV (02:09)
[2018-02-23] MEDS: MORPHINE 4 MG/ML 1ML VIAL/SYRINGE (J2270) IV ×2 (02:09→03:44)
[2018-02-23 02:34] LABS: ALBUMIN/GLOBULIN RATIO 0.75 (1.00-1.93); ALKALINE PHOSPHATASE 188 U/L (45-117); ALT/SGPT 17 U/L (12-78); ANION GAP 8 MEQ/L (8-16); AST/SGOT 25 U/L (7-37); BILIRUBIN,DIRECT 0.2 MG/DL (0.0-0.2); BILIRUBIN,TOTAL 0.5 MG/DL (0.2-1.0); BLOOD UREA NITROGEN 12 MG/DL (7-18); CALCIUM LEVEL 8.5 MG/DL (8.8-10.2); CARBON DIOXIDE LEVEL 29 MEQ/L (21-32); CHLORIDE LEVEL 106 MEQ/L (98-107); CREATININE FOR GFR 0.79 MG/DL (0.55-1.30); GLOMERULAR FILTRATION RATE > 60.0 (>45); GLUCOSE, FASTING 247 MG/DL (70-100); LIPASE 179 U/L (73-393); POTASSIUM SERUM 3.8 MEQ/L (3.5-5.1); SODIUM LEVEL 143 MEQ/L (136-145)
[2018-02-23 02:35] LABS: LACTIC ACID SEPSIS PROTOCOL 1.9 MMOL/L (0.4-2.0)
[2018-02-23] MEDS ORDERED: ISOVUE-370 76% 100ML VIAL (Q9967) As Ordered (03:22)
[2018-02-23] MEDS ORDERED: MORPHINE 4 MG/ML 1ML VIAL/SYRINGE (J2270) IV (05:30)
[2018-02-23] MEDS ORDERED: GLUCAGON FOR INJ 1 MG VIAL (J1610) SC (05:30)
[2018-02-23] MEDS ORDERED: PERCOCET 5MG/325MG TAB PO (05:30)
[2018-02-23] MEDS ORDERED: DEXTROSE 50% 50 ML SYRINGE IV (05:30)
[2018-02-23] MEDS ORDERED: GLUCOSE 4 GM CHEW TABLET PO (05:30)
[2018-02-23] MEDS ORDERED: ACETAMINOPHEN TAB 650MG DOSE (2X325MG) PO (05:30)
[2018-02-23] MEDS: CIPROFLOXACIN 400 MG in APPROPRIATE DILUENT 1 EA IV (05:30)
[2018-02-23] MEDS ORDERED: CYCLOBENZAPRINE 5MG TABLET PO (06:15)
[2018-02-23] MEDS ORDERED: SODIUM CHLORIDE NASAL 0.65% SPRAY BTL (OCEAN) (06:15)
[2018-02-23] MEDS ORDERED: FLUTICASONE PROP 0.05% NASAL SPRAY 16 GM (FLONASE) (06:15)
[2018-02-23] MEDS: metroNIDAZOLE 500 MG in APPROPRIATE DILUENT 1 EA IV (06:30)
[2018-02-23] MEDS: HumaLOG INSULIN (NovoLOG) PER UNIT SC ×4 (07:30→22:14)
[2018-02-23] MEDS: ENOXAPARIN 40 MG/0.4 ML SYRINGE (J1650) SC (08:04)
[2018-02-23] MEDS: PREGABALIN 100 MG CAP (LYRICA) PO ×3 (08:04→22:12)
[2018-02-23] MEDS: PERCOCET 5MG/325MG TAB PO ×2 (08:05→19:45)
[2018-02-23] MEDS: DOCUSATE SODIUM 100 MG CAP PO ×2 (08:05→21:00)
[2018-02-23 12:09] LABS: BEDSIDE GLUCOSE 183 MG/DL (80-115)
[2018-02-23] MEDS: metroNIDAZOLE (FLAGYL) 500 MG TAB PO ×3 (12:33→22:11)
[2018-02-23 16:58] LABS: BEDSIDE GLUCOSE 207 MG/DL (80-115)
[2018-02-23] MEDS: CIPROFLOXACIN 500 MG TAB PO (17:30)
[2018-02-23 19:50] LABS: BEDSIDE GLUCOSE 122 MG/DL (80-115)
[2018-02-23 20:40] LABS: BEDSIDE GLUCOSE 296 MG/DL (80-115)
[2018-02-23] MEDS: LISINOPRIL 5 MG TAB PO (22:12)
[2018-02-23] MEDS: OMEPRAZOLE 20 MG CAP PO (22:13)
[2018-02-23] MEDS: LEVEMIR (INSULIN DETEMIR) 1 UNITS/0.01ML SC (22:14)
[2018-02-23] MEDS: SIMVASTATIN 40 MG TAB PO (23:37)
[2018-02-23] MEDS: ALLOPURINOL 100 MG TAB PO (23:37)
[2018-02-23] MEDS: PROPRANOLOL 60 MG LA CAP PO (23:37)
[2018-02-24] MEDS: CIPROFLOXACIN 500 MG TAB PO ×2 (06:10→17:30)
[2018-02-24] MEDS: PERCOCET 5MG/325MG TAB PO ×2 (06:21→22:12)
[2018-02-24 06:46] LABS: HEMATOCRIT 32.3 % (36.0-47.0); HEMOGLOBIN 10.2 g/dl (12.0-15.5); MEAN CORPUSCULAR HEMOGLOBIN 26.1 pg (27.0-33.0); MEAN CORPUSCULAR HGB CONC 31.6 g/dl (32.0-36.5); MEAN CORPUSCULAR VOLUME 82.6 fl (80.0-96.0); PLATELET COUNT, AUTOMATED 149 10^3/uL (150-450); RED BLOOD COUNT 3.91 10^6/uL (4.00-5.40); WHITE BLOOD COUNT 5.2 10^3/uL (4.0-10.0)
[2018-02-24 07:12] LABS: ANION GAP 5 MEQ/L (8-16); BLOOD UREA NITROGEN 13 MG/DL (7-18); CALCIUM LEVEL 8.5 MG/DL (8.8-10.2); CARBON DIOXIDE LEVEL 29 MEQ/L (21-32); CHLORIDE LEVEL 102 MEQ/L (98-107); CREATININE FOR GFR 0.79 MG/DL (0.55-1.30); GLOMERULAR FILTRATION RATE > 60.0 (>45); GLUCOSE, FASTING 206 MG/DL (70-100); POTASSIUM SERUM 3.9 MEQ/L (3.5-5.1); SODIUM LEVEL 136 MEQ/L (136-145)
[2018-02-24] MEDS: HumaLOG INSULIN (NovoLOG) PER UNIT SC ×4 (08:35→21:00)
[2018-02-24] MEDS: ENOXAPARIN 40 MG/0.4 ML SYRINGE (J1650) SC (08:36)
[2018-02-24] MEDS: LEVEMIR (INSULIN DETEMIR) 1 UNITS/0.01ML SC ×2 (08:36→22:07)
[2018-02-24] MEDS: metroNIDAZOLE (FLAGYL) 500 MG TAB PO ×4 (08:36→22:12)
[2018-02-24] MEDS: DOCUSATE SODIUM 100 MG CAP PO ×2 (08:37→22:11)
[2018-02-24] MEDS: PREGABALIN 100 MG CAP (LYRICA) PO ×3 (08:37→22:08)
[2018-02-24 11:53] LABS: BEDSIDE GLUCOSE 215 MG/DL (80-115)
[2018-02-24 17:07] LABS: BEDSIDE GLUCOSE 238 MG/DL (80-115)
[2018-02-24 21:05] LABS: BEDSIDE GLUCOSE 194 MG/DL (80-115)
[2018-02-24] MEDS: OMEPRAZOLE 20 MG CAP PO (22:07)
[2018-02-24] MEDS: PROPRANOLOL 60 MG LA CAP PO (22:08)
[2018-02-24] MEDS: LISINOPRIL 5 MG TAB PO (22:09)
[2018-02-24] MEDS: ALLOPURINOL 100 MG TAB PO (22:10)
[2018-02-24] MEDS: SIMVASTATIN 40 MG TAB PO (22:13)
[2018-02-25] MEDS: CIPROFLOXACIN 500 MG TAB PO (05:47)
[2018-02-25 06:16] LABS: HEMATOCRIT 31.5 % (36.0-47.0); MEAN CORPUSCULAR HEMOGLOBIN 25.8 pg (27.0-33.0); MEAN CORPUSCULAR HGB CONC 31.7 g/dl (32.0-36.5); MEAN CORPUSCULAR VOLUME 81.4 fl (80.0-96.0); PLATELET COUNT, AUTOMATED 132 10^3/uL (150-450); RED BLOOD COUNT 3.87 10^6/uL (4.00-5.40); RED CELL DISTRIBUTION WIDTH 17.4 % (11.5-14.5); WHITE BLOOD COUNT 4.5 10^3/uL (4.0-10.0)
[2018-02-25 06:36] LABS: ANION GAP 5 MEQ/L (8-16); BLOOD UREA NITROGEN 13 MG/DL (7-18); CALCIUM LEVEL 8.2 MG/DL (8.8-10.2); CARBON DIOXIDE LEVEL 28 MEQ/L (21-32); CHLORIDE LEVEL 104 MEQ/L (98-107); CREATININE FOR GFR 0.78 MG/DL (0.55-1.30); GLOMERULAR FILTRATION RATE > 60.0 (>45); GLUCOSE, FASTING 269 MG/DL (70-100); POTASSIUM SERUM 4.2 MEQ/L (3.5-5.1); SODIUM LEVEL 137 MEQ/L (136-145)
[2018-02-25] MEDS: LEVEMIR (INSULIN DETEMIR) 1 UNITS/0.01ML SC (09:06)
[2018-02-25] MEDS: HumaLOG INSULIN (NovoLOG) PER UNIT SC ×2 (09:07→12:22)
[2018-02-25] MEDS: ENOXAPARIN 40 MG/0.4 ML SYRINGE (J1650) SC (09:09)
[2018-02-25] MEDS: metroNIDAZOLE (FLAGYL) 500 MG TAB PO ×2 (09:09→12:22)
[2018-02-25] MEDS: DOCUSATE SODIUM 100 MG CAP PO (09:09)
[2018-02-25] MEDS: PREGABALIN 100 MG CAP (LYRICA) PO (09:09)
[2018-02-25 11:59] LABS: BEDSIDE GLUCOSE 282 MG/DL (80-115)
== END 2018-02-25 13:30 | disposition home or self-care (01) ==
LOC: M ED 22:21 → M ED INP 22:22 → M MS5PR 02-23 09:42
DX: K57.32 Diverticulitis of large intestine without perforation or abscess without bleeding (principal); I10 Essential (primary) hypertension; E11.9 Type 2 diabetes mellitus without complications; R10.30 Lower abdominal pain, unspecified; L40.52 Psoriatic arthritis mutilans; E78.4 Other hyperlipidemia; M10.9 Gout, unspecified; Z79.899 Other long term (current) drug therapy; Z79.4 Long term (current) use of insulin; Z79.52 Long term (current) use of systemic steroids; R63.4 Abnormal weight loss; R11.2 Nausea with vomiting, unspecified; R19.7 Diarrhea, unspecified
CPT/HCPCS: J2270

== ENCOUNTER 2018-02-27 18:50 | Emergency (ER) | payer OTHER ==
[2018-02-27 21:16] LABS: KETONE, URINE AUTO RFX NEGATIVE (NEGATIVE); LEUKOCYTE ESTERASE UR AUTO RFX NEGATIVE (NEGATIVE); NITRITE, URINE AUTO RFX NEGATIVE (NEGATIVE); RBC, URINE AUTO RFX 0 /HPF (0-3); SPECIFIC GRAVITY UR AUTO RFX 1.006 (1.002-1.035); SQUAM EPITHELIAL CELL UR AURFX 0 /HPF (0-6); WBC, URINE AUTO RFX 1 /HPF (0-3)
[2018-02-27] MEDS: NS 1,000 ML IV (21:26)
[2018-02-27 21:33] LABS: BASO % 0.6 % (0.0-1.0); EOS # 0.2 10^3/uL (0.0-0.50); EOS % 3.4 % (0.0-3.0); HEMATOCRIT 34.2 % (36.0-47.0); HEMOGLOBIN 10.9 g/dl (12.0-15.5); IMMATURE GRANULOCYTE % 0.3 % (0-3.0); LYMPH # 1.9 10^3/uL (1.5-4.5); LYMPH % 27.2 % (24.0-44.0); MEAN CORPUSCULAR HGB CONC 31.9 g/dl (32.0-36.5); MEAN CORPUSCULAR VOLUME 81.6 fl (80.0-96.0); MONO # 0.6 10^3/uL (0.0-0.8); MONO % 9.1 % (0.0-5.0); NEUTROPHILS # 4.1 10^3/uL (1.8-7.7); NEUTROPHILS % 59.4 % (36.0-66.0); PLATELET COUNT, AUTOMATED 165 10^3/uL (150-450); RED BLOOD COUNT 4.19 10^6/uL (4.00-5.40); RED CELL DISTRIBUTION WIDTH 17.5 % (11.5-14.5); WHITE BLOOD COUNT 6.8 10^3/uL (4.0-10.0)
[2018-02-27 21:44] LABS: INR 1.09; PROTHROMBIN TIME 14.3 SECONDS (12.4-14.5)
[2018-02-27 22:06] LABS: GLUCOSE, FASTING 183 MG/DL (70-100)
[2018-02-27 22:07] LABS: ALT/SGPT 11 U/L (12-78); ANION GAP 3 MEQ/L (8-16); AST/SGOT 32 U/L (7-37); BLOOD UREA NITROGEN 6 MG/DL (7-18); CALCIUM LEVEL 8.2 MG/DL (8.8-10.2); CARBON DIOXIDE LEVEL 33 MEQ/L (21-32); CHLORIDE LEVEL 106 MEQ/L (98-107); CREATININE FOR GFR 0.67 MG/DL (0.55-1.30); GLOMERULAR FILTRATION RATE > 60.0 (>45); POTASSIUM SERUM 3.7 MEQ/L (3.5-5.1); SODIUM LEVEL 142 MEQ/L (136-145)
[2018-02-27 22:08] LABS: ALBUMIN 2.9 GM/DL (3.2-5.2); ALBUMIN/GLOBULIN RATIO 0.74 (1.00-1.93); ALKALINE PHOSPHATASE 171 U/L (45-117); AMYLASE 38 U/L (25-115); BILIRUBIN,DIRECT 0.2 MG/DL (0.0-0.2); BILIRUBIN,TOTAL 0.4 MG/DL (0.2-1.0); TOTAL PROTEIN 6.8 GM/DL (6.4-8.2)
[2018-02-27 22:09] LABS: LIPASE 155 U/L (73-393)
== END 2018-02-27 23:56 | disposition home or self-care (01) ==
LOC: M ED 18:50
DX: R10.9 Unspecified abdominal pain (principal); R16.0 Hepatomegaly, not elsewhere classified; E11.9 Type 2 diabetes mellitus without complications; I10 Essential (primary) hypertension; E78.5 Hyperlipidemia, unspecified; K21.9 Gastro-esophageal reflux disease without esophagitis; K57.90 Diverticulosis of intestine, part unspecified, without perforation or abscess without bleeding; D64.9 Anemia, unspecified; Z87.891 Personal history of nicotine dependence; Z79.4 Long term (current) use of insulin; Z79.899 Other long term (current) drug therapy
CPT/HCPCS: 74176

== ENCOUNTER → 2018-03-22 | Outpatient (CLI) | payer OTHER ==
[2018-03-22 13:40] LABS: BASO # 0.1 10^3/uL (0.0-0.2); BASO % 0.6 % (0.0-1.0); EOS # 0.2 10^3/uL (0.0-0.50); EOS % 2.4 % (0.0-3.0); HEMATOCRIT 35.2 % (36.0-47.0); HEMOGLOBIN 11.3 g/dl (12.0-15.5); IMMATURE GRANULOCYTE % 0.4 % (0-3.0); LYMPH # 2.1 10^3/uL (1.5-4.5); LYMPH % 25.3 % (24.0-44.0); MEAN CORPUSCULAR HEMOGLOBIN 25.7 pg (27.0-33.0); MEAN CORPUSCULAR HGB CONC 32.1 g/dl (32.0-36.5); MEAN CORPUSCULAR VOLUME 80.2 fl (80.0-96.0); MONO # 0.8 10^3/uL (0.0-0.8); MONO % 9.1 % (0.0-5.0); NEUTROPHILS # 5.2 10^3/uL (1.8-7.7); NEUTROPHILS % 62.2 % (36.0-66.0); PLATELET COUNT, AUTOMATED 165 10^3/uL (150-450); RED BLOOD COUNT 4.39 10^6/uL (4.00-5.40); RED CELL DISTRIBUTION WIDTH 15.7 % (11.5-14.5); WHITE BLOOD COUNT 8.3 10^3/uL (4.0-10.0)
[2018-03-22 13:51] LABS: INR 1.03; PARTIAL THROMBOPLASTIN TIME 28.9 SECONDS (26.8-37.9); PROTHROMBIN TIME 13.6 SECONDS (12.4-14.5)
[2018-03-22 14:12] LABS: ALBUMIN 3.2 GM/DL (3.2-5.2); ALBUMIN/GLOBULIN RATIO 0.82 (1.00-1.93); ALKALINE PHOSPHATASE 187 U/L (45-117); ALT/SGPT 21 U/L (12-78); AST/SGOT 41 U/L (7-37); BILIRUBIN,DIRECT 0.3 MG/DL (0.0-0.2); BILIRUBIN,TOTAL 0.6 MG/DL (0.2-1.0); TOTAL PROTEIN 7.1 GM/DL (6.4-8.2)
[2018-03-23 09:23] LABS: ALPHA FETOPROTEIN TUMOR QUANT 7.5 NG/ML (<8.1)
== END ==
LOC: M LAB 12:37
DX: K74.60 Unspecified cirrhosis of liver (principal)
CPT/HCPCS: 80076

== ENCOUNTER 2018-05-01 18:20 | Emergency (ER) | payer OTHER ==
[2018-05-01] MEDS: IBUPROFEN 600 MG TAB PO (20:28)
[2018-05-01] MEDS: NORCO 5/325MG TABLET (BULK FOR ED) PO (21:30)
== END 2018-05-01 21:59 | disposition home or self-care (01) ==
LOC: M ED 18:20
DX: S80.01XA Contusion of right knee, initial encounter (principal); S70.02XA Contusion of left hip, initial encounter; W01.10XA Fall on same level from slipping, tripping and stumbling with subsequent striking against unspecified object, initial encounter; Y92.099 Unspecified place in other non-institutional residence as the place of occurrence of the external cause; Y93.9 Activity, unspecified; Y99.9 Unspecified external cause status; M24.151 Other articular cartilage disorders, right hip; M24.152 Other articular cartilage disorders, left hip; E11.9 Type 2 diabetes mellitus without complications; I10 Essential (primary) hypertension; K21.9 Gastro-esophageal reflux disease without esophagitis; K57.92 Diverticulitis of intestine, part unspecified, without perforation or abscess without bleeding; D64.9 Anemia, unspecified; L40.52 Psoriatic arthritis mutilans; Z87.891 Personal history of nicotine dependence; Z79.4 Long term (current) use of insulin; Z79.899 Other long term (current) drug therapy
CPT/HCPCS: 73564

== ENCOUNTER 2018-05-22 20:54 | Emergency (ER) | payer OTHER ==
[2018-05-22] MEDS: ONDANSETRON 4MG/2ML VIAL (J2405) IV (22:36)
[2018-05-22] MEDS: NS 1,000 ML IV (22:36)
[2018-05-22] MEDS: MORPHINE 4 MG/ML 1ML VIAL/SYRINGE (J2270) IV (22:37)
[2018-05-22 22:39] LABS: BASO # 0.1 10^3/uL (0.0-0.2); BASO % 0.6 % (0.0-1.0); EOS # 0.2 10^3/uL (0.0-0.50); HEMATOCRIT 36.9 % (36.0-47.0); HEMOGLOBIN 11.1 g/dl (12.0-15.5); IMMATURE GRANULOCYTE % 0.2 % (0-3.0); LYMPH # 2.2 10^3/uL (1.5-4.5); MEAN CORPUSCULAR HEMOGLOBIN 23.8 pg (27.0-33.0); MEAN CORPUSCULAR HGB CONC 30.1 g/dl (32.0-36.5); MEAN CORPUSCULAR VOLUME 79.2 fl (80.0-96.0); NEUTROPHILS % 59.2 % (36.0-66.0); PLATELET COUNT, AUTOMATED 184 10^3/uL (150-450); RED BLOOD COUNT 4.66 10^6/uL (4.00-5.40); RED CELL DISTRIBUTION WIDTH 16.5 % (11.5-14.5); WHITE BLOOD COUNT 8.5 10^3/uL (4.0-10.0)
[2018-05-22 23:04] LABS: ALBUMIN 3.1 GM/DL (3.2-5.2); ALBUMIN/GLOBULIN RATIO 0.76 (1.00-1.93); ALKALINE PHOSPHATASE 175 U/L (45-117); ALT/SGPT 12 U/L (12-78); ANION GAP 8 MEQ/L (8-16); AST/SGOT 26 U/L (7-37); BILIRUBIN,DIRECT 0.3 MG/DL (0.0-0.2); BILIRUBIN,TOTAL 0.7 MG/DL (0.2-1.0); BLOOD UREA NITROGEN 9 MG/DL (7-18); CALCIUM LEVEL 8.4 MG/DL (8.8-10.2); CARBON DIOXIDE LEVEL 28 MEQ/L (21-32); CHLORIDE LEVEL 104 MEQ/L (98-107); CREATININE FOR GFR 0.69 MG/DL (0.55-1.30); GLOMERULAR FILTRATION RATE > 60.0 (>45); GLUCOSE, FASTING 227 MG/DL (70-100); LIPASE 148 U/L (73-393); POTASSIUM SERUM 3.7 MEQ/L (3.5-5.1); SODIUM LEVEL 140 MEQ/L (136-145); TOTAL PROTEIN 7.2 GM/DL (6.4-8.2)
[2018-05-22 23:05] LABS: KETONE, URINE AUTO RFX NEGATIVE (NEGATIVE); LEUKOCYTE ESTERASE UR AUTO RFX NEGATIVE (NEGATIVE); MUCUS, URINE RFX SMALL (NEGATIVE); NITRITE, URINE AUTO RFX NEGATIVE (NEGATIVE); RBC, URINE AUTO RFX 2 /HPF (0-3); SQUAM EPITHELIAL CELL UR AURFX 10 /HPF (0-6); WBC, URINE AUTO RFX 6 /HPF (0-3)
[2018-05-22] MEDS ORDERED: ISOVUE-370 76% 100ML VIAL (Q9967) As Ordered (23:14)
[2018-05-23] MEDS: NORCO 5/325MG TABLET (BULK FOR ED) PO (00:24)
[2018-05-23] MEDS: ONDANSETRON 4 MG ORAL DISINTEGRATING TAB (Q0162 PER 1MG) PO (00:30)
== END 2018-05-23 00:35 | disposition home or self-care (01) ==
LOC: M ED 05-23 00:35
DX: K52.9 Noninfective gastroenteritis and colitis, unspecified (principal); D64.9 Anemia, unspecified; M19.90 Unspecified osteoarthritis, unspecified site; K57.92 Diverticulitis of intestine, part unspecified, without perforation or abscess without bleeding; Z87.891 Personal history of nicotine dependence; R16.0 Hepatomegaly, not elsewhere classified; Z79.4 Long term (current) use of insulin; Z79.899 Other long term (current) drug therapy
CPT/HCPCS: J2270

== ENCOUNTER → 2018-07-27 | Outpatient (REF) | payer OTHER | LOC: M SFHCLERA 15:16 | DX: S99.922A Unspecified injury of left foot, initial encounter (principal); W22.8XXA Striking against or struck by other objects, initial encounter; Y93.16 Activity, rowing, canoeing, kayaking, rafting and tubing | CPT/HCPCS: 87186 ==

== ENCOUNTER 2018-08-03 15:07 | Emergency (ER) | payer OTHER ==
[2018-08-03] MEDS ORDERED: HumuLIN R (REGULAR) INSULIN (NovoLIN R) **100U/ML** PER UNIT IV (18:15)
[2018-08-03 18:55] LABS: BEDSIDE GLUCOSE 151 MG/DL (80-115)
[2018-08-03 19:00] LABS: VENOUS BASE EXCESS -2.2 (-2.0-2.0); VENOUS HCO3 23.8 MEQ/L (23.0-27.0); VENOUS O2 SATURATION 96.2 % (60.0-80.0); VENOUS PARTIAL PRESSURE CO2 45.6 mmHg (38.0-50.0); VENOUS PARTIAL PRESSURE O2 88.1 mmHg (30.0-50.0); VENOUS PH 7.335 UNITS (7.330-7.430); VENOUS STANDARD HCO3 22.6 MEQ/L; VENOUS TOTAL CO2 25.2 MEQ/L (24.0-28.0)
[2018-08-03 19:07] LABS: BASO # 0.1 10^3/uL (0.0-0.2); BASO % 0.5 % (0.0-1.0); EOS # 0.1 10^3/uL (0.0-0.50); HEMATOCRIT 35.3 % (36.0-47.0); HEMOGLOBIN 10.9 g/dl (12.0-15.5); IMMATURE GRANULOCYTE % 0.3 % (0-3.0); LYMPH # 3.3 10^3/uL (1.5-4.5); LYMPH % 33.7 % (24.0-44.0); MEAN CORPUSCULAR HEMOGLOBIN 23.5 pg (27.0-33.0); MEAN CORPUSCULAR HGB CONC 30.9 g/dl (32.0-36.5); MEAN CORPUSCULAR VOLUME 76.2 fl (80.0-96.0); MONO # 0.9 10^3/uL (0.0-0.8); MONO % 9.4 % (0.0-5.0); NEUTROPHILS # 5.4 10^3/uL (1.8-7.7); NEUTROPHILS % 55.1 % (36.0-66.0); PLATELET COUNT, AUTOMATED 240 10^3/uL (150-450); RED BLOOD COUNT 4.63 10^6/uL (4.00-5.40); RED CELL DISTRIBUTION WIDTH 18.1 % (11.5-14.5); WHITE BLOOD COUNT 9.8 10^3/uL (4.0-10.0)
[2018-08-03] MEDS: ACETAMINOPHEN 325 MG TAB PO (19:08)
[2018-08-03 19:18] LABS: KETONE, URINE AUTO RFX NEGATIVE (NEGATIVE); LEUKOCYTE ESTERASE UR AUTO RFX NEGATIVE (NEGATIVE); NITRITE, URINE AUTO RFX NEGATIVE (NEGATIVE); RBC, URINE AUTO RFX 5 /HPF (0-3); SPECIFIC GRAVITY UR AUTO RFX 1.014 (1.002-1.035); SQUAM EPITHELIAL CELL UR AURFX 1 /HPF (0-6); URIC ACID CRYSTALS RFX LARGE; WBC, URINE AUTO RFX 2 /HPF (0-3)
[2018-08-03 20:03] LABS: ANION GAP 10 MEQ/L (8-16); BLOOD UREA NITROGEN 26 MG/DL (7-18); CALCIUM LEVEL 9.5 MG/DL (8.8-10.2); CARBON DIOXIDE LEVEL 23 MEQ/L (21-32); CHLORIDE LEVEL 101 MEQ/L (98-107); GLOMERULAR FILTRATION RATE 48.6 (>45); GLUCOSE, FASTING 171 MG/DL (70-100); POTASSIUM SERUM 5.5 MEQ/L (3.5-5.1); SODIUM LEVEL 134 MEQ/L (136-145)
[2018-08-03] MEDS: LEVEMIR (INSULIN DETEMIR) 1 UNITS/0.01ML SC (20:45)
[2018-08-03 21:10] LABS: BEDSIDE GLUCOSE 197 MG/DL (80-115)
[2018-08-03] MEDS: NORCO 5/325MG TABLET (BULK FOR ED) PO (23:00)
== END 2018-08-03 23:01 | disposition home or self-care (01) ==
LOC: M ED 15:07
DX: E11.65 Type 2 diabetes mellitus with hyperglycemia (principal); E11.40 Type 2 diabetes mellitus with diabetic neuropathy, unspecified; I10 Essential (primary) hypertension; E78.5 Hyperlipidemia, unspecified; N18.9 Chronic kidney disease, unspecified; Z87.891 Personal history of nicotine dependence; Z79.4 Long term (current) use of insulin; Z79.899 Other long term (current) drug therapy
CPT/HCPCS: 82803

== ENCOUNTER 2018-08-13 13:59 | Inpatient (IN) | payer OTHER ==
[2018-08-13 15:44] LABS: BEDSIDE GLUCOSE 209 MG/DL (80-115)
[2018-08-13 16:05] LABS: INR 1.03; PARTIAL THROMBOPLASTIN TIME 21.8 SECONDS (25.4-37.6); PROTHROMBIN TIME 13.6 SECONDS (12.1-14.4)
[2018-08-13 16:20] LABS: BASO % 0.6 % (0.0-1.0); EOS # 0.1 10^3/uL (0.0-0.50); EOS % 2.6 % (0.0-3.0); HEMATOCRIT 33.2 % (36.0-47.0); HEMOGLOBIN 10.2 g/dl (12.0-15.5); IMMATURE GRANULOCYTE % 0.2 % (0-3.0); LYMPH # 1.6 10^3/uL (1.5-4.5); LYMPH % 32.1 % (24.0-44.0); MEAN CORPUSCULAR HGB CONC 30.7 g/dl (32.0-36.5); MEAN CORPUSCULAR VOLUME 78.1 fl (80.0-96.0); MONO # 0.6 10^3/uL (0.0-0.8); NEUTROPHILS # 2.7 10^3/uL (1.8-7.7); NEUTROPHILS % 53.5 % (36.0-66.0); PLATELET COUNT, AUTOMATED 145 10^3/uL (150-450); RED BLOOD COUNT 4.25 10^6/uL (4.00-5.40); RED CELL DISTRIBUTION WIDTH 18.6 % (11.5-14.5)
[2018-08-13 16:22] LABS: POS COUNT POS FLAG
[2018-08-13] MEDS: NS 500 ML IV (16:33)
[2018-08-13 16:35] LABS: ANION GAP 6 MEQ/L (8-16); BLOOD UREA NITROGEN 11 MG/DL (7-18); CALCIUM LEVEL 8.5 MG/DL (8.8-10.2); CARBON DIOXIDE LEVEL 30 MEQ/L (21-32); CHLORIDE LEVEL 103 MEQ/L (98-107); CPK CREATINE PHOSPHOKINASE 49 U/L (26-192); CREATININE FOR GFR 0.83 MG/DL (0.55-1.30); FREE T4 1.13 NG/DL (0.76-1.46); GLOMERULAR FILTRATION RATE > 60.0 (>45); GLUCOSE, FASTING 191 MG/DL (70-100); MAGNESIUM LEVEL 1.4 MG/DL (1.8-2.4); MB/CK RELATIVE INDEX 3.06 (< OR =4); POTASSIUM SERUM 3.9 MEQ/L (3.5-5.1); SODIUM LEVEL 139 MEQ/L (136-145); TROPONIN I < 0.02 NG/ML (< 0.10)
[2018-08-13] MEDS: NS 1,000 ML IV (17:48)
[2018-08-13] MEDS: MECLIZINE 25 MG TABLET PO (17:49)
[2018-08-13] MEDS: MAGNESIUM OXIDE 400 MG TAB (MAG-OX) PO (17:49)
[2018-08-13] MEDS: ACETAMINOPHEN TAB 650MG DOSE (2X325MG) PO (17:50)
[2018-08-13] MEDS ORDERED: ONDANSETRON 4MG/2ML VIAL (J2405) IV (21:15)
[2018-08-13] MEDS ORDERED: DEXTROSE 50% 50 ML SYRINGE IV (21:30)
[2018-08-13] MEDS ORDERED: GLUCAGON FOR INJ 1 MG VIAL (J1610) SC (21:30)
[2018-08-13] MEDS ORDERED: GLUCOSE 4 GM CHEW TABLET PO (21:30)
[2018-08-14] MEDS: NS 1,000 ML IV ×2 (01:11→13:00)
[2018-08-14 01:17] LABS: BEDSIDE GLUCOSE 316 MG/DL (80-115)
[2018-08-14] MEDS: MAG SULF 1GM/100ML (MAG RUN) 1 GM in APPROPRIATE DILUENT 1 EA IV ×2 (01:51→07:40)
[2018-08-14] MEDS: LEVEMIR (INSULIN DETEMIR) 1 UNITS/0.01ML SC ×3 (01:52→20:39)
[2018-08-14] MEDS: HumaLOG INSULIN (NovoLOG) PER UNIT SC ×5 (01:52→20:42)
[2018-08-14] MEDS: SIMVASTATIN 40 MG TAB PO ×2 (01:53→20:42)
[2018-08-14] MEDS: POTASSIUM CHLORIDE 10 MEQ SR TABLET PO (01:53)
[2018-08-14] MEDS: ALLOPURINOL 100 MG TAB PO ×2 (01:53→20:41)
[2018-08-14] MEDS: OMEPRAZOLE 20 MG CAP PO ×2 (01:53→20:41)
[2018-08-14] MEDS: LISINOPRIL 5 MG TAB PO ×2 (01:54→20:41)
[2018-08-14] MEDS: PROPRANOLOL 60 MG LA CAP PO ×2 (01:55→21:47)
[2018-08-14] MEDS: sulfaSALAzine 500 MG TABEC PO ×3 (01:55→20:41)
[2018-08-14] MEDS: AMITRIPTYLINE 25 MG TAB PO ×2 (01:55→20:41)
[2018-08-14] MEDS: OCUVITE 1 TAB PO ×2 (01:55→20:40)
[2018-08-14] MEDS: ACETAMINOPHEN TAB 650MG DOSE (2X325MG) PO ×3 (01:56→20:41)
[2018-08-14] MEDS: CYCLOBENZAPRINE 5MG TABLET PO ×4 (02:37→20:42)
[2018-08-14] MEDS: HEPARIN SOD (PORCINE) 5000 UNITS/ML VIAL SC ×3 (05:55→20:40)
[2018-08-14 06:08] LABS: HEMATOCRIT 30.5 % (36.0-47.0); HEMOGLOBIN 9.3 g/dl (12.0-15.5); MEAN CORPUSCULAR HEMOGLOBIN 23.7 pg (27.0-33.0); MEAN CORPUSCULAR HGB CONC 30.5 g/dl (32.0-36.5); MEAN CORPUSCULAR VOLUME 77.8 fl (80.0-96.0); PLATELET COUNT, AUTOMATED 141 10^3/uL (150-450); RED BLOOD COUNT 3.92 10^6/uL (4.00-5.40); RED CELL DISTRIBUTION WIDTH 18.7 % (11.5-14.5); WHITE BLOOD COUNT 4.2 10^3/uL (4.0-10.0)
[2018-08-14 06:36] LABS: ANION GAP 8 MEQ/L (8-16); BLOOD UREA NITROGEN 11 MG/DL (7-18); CALCIUM LEVEL 8.2 MG/DL (8.8-10.2); CARBON DIOXIDE LEVEL 28 MEQ/L (21-32); CHLORIDE LEVEL 106 MEQ/L (98-107); CREATININE FOR GFR 0.72 MG/DL (0.55-1.30); FERRITIN 11 NG/ML (8-252); GLOMERULAR FILTRATION RATE > 60.0 (>45); GLUCOSE, FASTING 230 MG/DL (70-100); IRON (FE) 25 UG/DL (50-170); MAGNESIUM LEVEL 1.6 MG/DL (1.8-2.4); POTASSIUM SERUM 3.9 MEQ/L (3.5-5.1); SODIUM LEVEL 142 MEQ/L (136-145); TOTAL IRON BINDING CAPACITY 359 UG/DL (250-450)
[2018-08-14] MEDS ORDERED: HumaLOG INSULIN (NovoLOG) PER UNIT SC ×3 (07:30→21:00)
[2018-08-14] MEDS: FLUBLOK(EGG FREE)(QUAD)INFLUENZA VACC 0.5ML SYRINGE (90682)18YRS&OLDER IM (07:44)
[2018-08-14 11:37] LABS: BEDSIDE GLUCOSE 129 MG/DL (80-115)
[2018-08-14 17:07] LABS: BEDSIDE GLUCOSE 142 MG/DL (80-115)
[2018-08-14 21:17] LABS: BEDSIDE GLUCOSE 222 MG/DL (80-115)
[2018-08-15] MEDS: CYCLOBENZAPRINE 10 MG TAB PO (00:24)
[2018-08-15] MEDS: HEPARIN SOD (PORCINE) 5000 UNITS/ML VIAL SC ×3 (05:37→21:37)
[2018-08-15 06:15] LABS: HEMATOCRIT 30.9 % (36.0-47.0); HEMOGLOBIN 9.3 g/dl (12.0-15.5); MEAN CORPUSCULAR HEMOGLOBIN 23.5 pg (27.0-33.0); MEAN CORPUSCULAR HGB CONC 30.1 g/dl (32.0-36.5); PLATELET COUNT, AUTOMATED 123 10^3/uL (150-450); RED BLOOD COUNT 3.96 10^6/uL (4.00-5.40); RED CELL DISTRIBUTION WIDTH 18.7 % (11.5-14.5); WHITE BLOOD COUNT 3.5 10^3/uL (4.0-10.0)
[2018-08-15 06:28] LABS: ANION GAP 6 MEQ/L (8-16); BLOOD UREA NITROGEN 10 MG/DL (7-18); CALCIUM LEVEL 7.9 MG/DL (8.8-10.2); CARBON DIOXIDE LEVEL 29 MEQ/L (21-32); CHLORIDE LEVEL 106 MEQ/L (98-107); CREATININE FOR GFR 0.73 MG/DL (0.55-1.30); GLOMERULAR FILTRATION RATE > 60.0 (>45); GLUCOSE, FASTING 135 MG/DL (70-100); MAGNESIUM LEVEL 1.2 MG/DL (1.8-2.4); POTASSIUM SERUM 3.8 MEQ/L (3.5-5.1); SODIUM LEVEL 141 MEQ/L (136-145)
[2018-08-15 08:07] LABS: HAPTOGLOBIN 87 mg/dL (34-200)
[2018-08-15] MEDS: CYCLOBENZAPRINE 5MG TABLET PO ×2 (09:33→21:36)
[2018-08-15] MEDS: sulfaSALAzine 500 MG TABEC PO ×2 (09:33→20:21)
[2018-08-15] MEDS: ACETAMINOPHEN TAB 650MG DOSE (2X325MG) PO (09:34)
[2018-08-15] MEDS: LEVEMIR (INSULIN DETEMIR) 1 UNITS/0.01ML SC ×2 (09:35→21:36)
[2018-08-15] MEDS: HumaLOG INSULIN (NovoLOG) PER UNIT SC ×4 (09:35→21:37)
[2018-08-15 12:34] LABS: BEDSIDE GLUCOSE 290 MG/DL (80-115)
[2018-08-15] MEDS: MAG SULF 1GM/100ML (MAG RUN) 1 GM in APPROPRIATE DILUENT 1 EA IV ×2 (13:07→14:33)
[2018-08-15 17:33] LABS: BEDSIDE GLUCOSE 219 MG/DL (80-115)
[2018-08-15] MEDS: OMEPRAZOLE 20 MG CAP PO (20:21)
[2018-08-15] MEDS: AMITRIPTYLINE 25 MG TAB PO (20:22)
[2018-08-15] MEDS: SIMVASTATIN 40 MG TAB PO (20:22)
[2018-08-15] MEDS: PROPRANOLOL 60 MG LA CAP PO (20:22)
[2018-08-15] MEDS: LISINOPRIL 5 MG TAB PO (20:22)
[2018-08-15] MEDS: ALLOPURINOL 100 MG TAB PO (20:22)
[2018-08-15] MEDS: OCUVITE 1 TAB PO (20:22)
[2018-08-15 20:46] LABS: BEDSIDE GLUCOSE 259 MG/DL (80-115)
[2018-08-16] MEDS: ACETAMINOPHEN TAB 650MG DOSE (2X325MG) PO (05:59)
[2018-08-16] MEDS: HEPARIN SOD (PORCINE) 5000 UNITS/ML VIAL SC (06:00)
[2018-08-16] MEDS: CYCLOBENZAPRINE 5MG TABLET PO (06:10)
[2018-08-16 06:26] LABS: HEMATOCRIT 31.1 % (36.0-47.0); HEMOGLOBIN 9.4 g/dl (12.0-15.5); MEAN CORPUSCULAR HEMOGLOBIN 23.6 pg (27.0-33.0); MEAN CORPUSCULAR HGB CONC 30.2 g/dl (32.0-36.5); MEAN CORPUSCULAR VOLUME 77.9 fl (80.0-96.0); PLATELET COUNT, AUTOMATED 135 10^3/uL (150-450); RED BLOOD COUNT 3.99 10^6/uL (4.00-5.40); RED CELL DISTRIBUTION WIDTH 18.7 % (11.5-14.5); WHITE BLOOD COUNT 4.4 10^3/uL (4.0-10.0)
[2018-08-16 06:46] LABS: ANION GAP 6 MEQ/L (8-16); BLOOD UREA NITROGEN 8 MG/DL (7-18); CALCIUM LEVEL 8.3 MG/DL (8.8-10.2); CARBON DIOXIDE LEVEL 29 MEQ/L (21-32); CHLORIDE LEVEL 105 MEQ/L (98-107); CREATININE FOR GFR 0.66 MG/DL (0.55-1.30); GLOMERULAR FILTRATION RATE > 60.0 (>45); GLUCOSE, FASTING 144 MG/DL (70-100); MAGNESIUM LEVEL 1.3 MG/DL (1.8-2.4); SODIUM LEVEL 140 MEQ/L (136-145)
[2018-08-16] MEDS: LEVEMIR (INSULIN DETEMIR) 1 UNITS/0.01ML SC (08:24)
[2018-08-16] MEDS: HumaLOG INSULIN (NovoLOG) PER UNIT SC ×2 (08:24→13:00)
[2018-08-16] MEDS: sulfaSALAzine 500 MG TABEC PO (08:25)
[2018-08-16] MEDS: MAG SULF 1GM/100ML (MAG RUN) 1 GM in APPROPRIATE DILUENT 1 EA IV ×2 (11:19→13:01)
[2018-08-16 11:39] LABS: BEDSIDE GLUCOSE 265 MG/DL (80-115)
== END 2018-08-16 15:07 | disposition home or self-care (01) | DRG 312 ==
LOC: M PCU 08-14 01:09 → M ED 13:59 → M ED INP 21:12 → M MSPAV 08-14 14:20
PROVIDERS: Internal Medicine Nephrology
DX: I95.1 Orthostatic hypotension (principal); E11.40 Type 2 diabetes mellitus with diabetic neuropathy, unspecified; L40.50 Arthropathic psoriasis, unspecified; I10 Essential (primary) hypertension; D50.9 Iron deficiency anemia, unspecified; R42 Dizziness and giddiness; E78.5 Hyperlipidemia, unspecified; E83.42 Hypomagnesemia; M10.9 Gout, unspecified; E11.65 Type 2 diabetes mellitus with hyperglycemia; Z87.891 Personal history of nicotine dependence; Z79.4 Long term (current) use of insulin; Z79.899 Other long term (current) drug therapy

== ENCOUNTER → 2018-08-13 | Outpatient (REF) | payer OTHER | LOC: M SFHCLERA 13:25 | DX: R42 Dizziness and giddiness (principal) ==

== ENCOUNTER → 2018-09-07 | Outpatient (CLI) | payer OTHER ==
[2018-09-07 09:05] LABS: HEMATOCRIT 35.5 % (36.0-47.0); HEMOGLOBIN 10.9 g/dl (12.0-15.5); MEAN CORPUSCULAR HEMOGLOBIN 25.6 pg (27.0-33.0); MEAN CORPUSCULAR HGB CONC 30.7 g/dl (32.0-36.5); MEAN CORPUSCULAR VOLUME 83.5 fl (80.0-96.0); PLATELET COUNT, AUTOMATED 168 10^3/uL (150-450); RED BLOOD COUNT 4.25 10^6/uL (4.00-5.40); RED CELL DISTRIBUTION WIDTH 21.3 % (11.5-14.5); WHITE BLOOD COUNT 4.5 10^3/uL (4.0-10.0)
[2018-09-07 09:21] LABS: INR 1.12; PROTHROMBIN TIME 14.5 SECONDS (12.1-14.4)
[2018-09-07 09:22] LABS: PARTIAL THROMBOPLASTIN TIME 33.7 SECONDS (25.4-37.6)
[2018-09-07 09:32] LABS: ALBUMIN 3.2 GM/DL (3.2-5.2); ALBUMIN/GLOBULIN RATIO 0.91 (1.00-1.93); ALKALINE PHOSPHATASE 216 U/L (45-117); ALT/SGPT 18 U/L (12-78); AST/SGOT 41 U/L (7-37); BILIRUBIN,DIRECT 0.2 MG/DL (0.0-0.2); BILIRUBIN,TOTAL 0.4 MG/DL (0.2-1.0); TOTAL PROTEIN 6.7 GM/DL (6.4-8.2)
[2018-09-07 10:24] LABS: ALPHA FETOPROTEIN TUMOR QUANT 7.8 NG/ML (<8.1)
== END ==
LOC: M RAD 08:21
DX: K74.60 Unspecified cirrhosis of liver (principal)
CPT/HCPCS: 76705

== ENCOUNTER 2018-12-07 09:54 | Day surgery (SDC) | payer OTHER ==
[~2018-12-07] VITALS: Ht 162.6 cm; Wt 94.3 kg
[~2018-12-07 09:54] MED LIST changes: +ACET30TAB PO; +ACET500T15 PO; +ALBU17IN INH; +ALLO100T PO; -ALLOPURINOL 100 MG TAB PO; +AMIT10TA PO; +AMIT25TA PO; +ASCO500T PO; +ASPI81TA21 PO; +ASPI81TA85 PO; +BACT800T5 PO; +CETI10TA PO; +CETI1SYP16 PO; +CETI5TAB2 PO; +CIPR-249 PO; +CYCL5TAB PO; +CYMB60CA3 PO; +DIAB5TAB PO; +DRIS50003 PO; +DULO30CA PO; +FERR22EL PO; +FERR325T3 PO; +FLAG500T PO; +FLON50SP; +FURO40TA2 PO; +GABA-843 PO; +GLYB5TA PO; +HEPA100SY IV; +HYDROCODONE/ACETA PO; +HYDROCORTISONE PR; +IBUP80TA PO; +INSUDET SC; +INSUH10VL SC; +INSUHUMDS SC; +IRON50TA PO; +KEFL500C17 PO; +LANTINJ4 SC; +LEVA1TAB2 PO; +LIDOCAINE 2% INJ 100 MG/5 ML SDV (FOR ANES.) As Ordered ONE; +LISI-538 PO; +LISI-542 PO; +LISI10TA4 PO; -LISINOPRIL 5 MG TAB PO; +LOVA40TA PO; +MAGN200T PO; +MAGN250T9 PO; +MECL-68 PO; +MESA24CASA PO; +METF500T4 PO; +METF750T PO; +METO1TAB7 PO; +NORC1TAB4 PO; +NORCOTAB PO; +NYST10CR TOP; +NYST1POW9 TOP; +OCEA0.654; +OMEP20CA3 PO; +OMEP40CA2 PO; -OMEPRAZOLE 20 MG CAP PO; +OXYC1TAB23 PO; +PERCOCET PO; +PRAMOXINE PR; +PRED5TA; +PRED5TA PO; +PREG100CA PO; +PREG50CA PO; +PRESCAP PO; +PROP60CA PO; +PROPOFOL 200 MG/20 ML VIAL As Ordered ONE; -PROPRANOLOL 60 MG LA CAP PO; +PROT1TAB2 PO; +PYRI1TAB5 PO; +ROPI0.5T PO; +ROPI1TAB PO; +SALI0.9I2 IV; +SIMV10TA2 PO; +SIMV20TA2 PO; +SIMV40TA2 PO; -SIMVASTATIN 40 MG TAB PO; +SLEE25TA PO; +SULF50TA PO; +SULFAMETHOXAZOLE-TMP; +TRAM50TA2 PO; +TRAZ-160 PO; +TYLE167L PO; +TYLE1TAB5 PO; +VANC10IN IV; +VITA-115 PO; +VITA1CHW5 PO; +VITA50005 PO; +VITA500T PO; +ZOFR4TAB14 PO; +ZYVO1TAB PO
[2018-12-07] MEDS ORDERED: NS 1,000 ML IV ONE (10:15)
[2018-12-07] MEDS ORDERED: LIDOCAINE 2% INJ 100 MG/5 ML SDV (FOR ANES.) As Ordered ONE (11:14)
--- NOTE | 2018-12-07 12:52 | ROOR ---
Patient Name: Christina Ngo Procedure Date: 12/07/2018 12:29 PM Date of : 1955 Age: 63 Room: [facility] Gender: Female Note Status: Finalized Procedure: Upper GI endoscopy Indications: Cirrhosis rule out esophageal varices Providers: Gregg HANNA MD Referring MD: Yadira Valdez Requestjoby Provider: Medicines: Monitored Anesthesia Care Complications: No immediate complications. Procedure: Pre-Anesthesia Assessment: - The heart rate, respiratory rate, oxygen saturations, blood pressure, adequacy of pulmonary ventilation, and response to care were monitored throughout the procedure. The Endoscope was introduced through the mouth, and advanced to the second part of duodenum. The upper GI endoscopy was accomplished without difficulty. The patient tolerated the procedure well. Findings: Grade II varices were found in the lower third of the esophagus. Three bands were successfully placed with complete eradication, resulting in deflation of varices. Mild portal hypertensive gastropathy was found in the stomach. The exam was otherwise without abnormality. Impression: - Grade II esophageal varices. Completely eradicated. Banded. - Mild portal hypertensive gastropathy. - The examination was otherwise normal. - No specimens collected. Recommendation: - Repeat upper endoscopy in 1 month for retreatment. - My office will call you to reschedule the procedure. - Start/continue a Non-selective Beta Casey such as Propranolol or Nadolol, titrate to heart rate. - Recommend continued efforts at further weight loss. Gregg Hanna MD Gregg HANNA MD 12/07/2018 12:52:02 PM This report has been signed electronically. Number of Addenda: 0 Note Initiated On: 12/07/2018 12:29 PM Estimated Blood Loss: Estimated blood loss: none.
[2018-12-07] MEDS ORDERED: PROPOFOL 200 MG/20 ML VIAL As Ordered ONE ×2 (12:54→13:08)
--- NOTE | 2018-12-07 13:23 | ROOR ---
Patient Name: Christina Ngo Procedure Date: 12/07/2018 12:30 PM Date of : 1955 Age: 63 Room: [facility] Gender: Female Note Status: Finalized Procedure: Colonoscopy Indications: High risk colon cancer surveillance: Personal history of colonic polyps, Surveillance: Personal history of incomplete removal of large sessile adenoma on last colonoscopy (less than 1 year ago) Providers: Gregg HANNA MD Referring MD: Yadira Valdez Requesting Provider: Medicines: Monitored Anesthesia Care Complications: No immediate complications. Procedure: Pre-Anesthesia Assessment: - The heart rate, respiratory rate, oxygen saturations, blood pressure, adequacy of pulmonary ventilation, and response to care were monitored throughout the procedure. The Colonoscope was introduced through the anus and advanced to the cecum, identified by appendiceal orifice and ileocecal valve. The colonoscopy was performed without difficulty. The patient tolerated the procedure well. The quality of the bowel preparation was good. Findings: The perianal and digital rectal examinations were normal. A 10 mm residual polyp was found in the descending colon at the previous polypectomy site. The polyp was semi-sessile. The polyp was removed with a hot snare. Resection and retrieval were complete. To prevent bleeding after the polypectomy, three hemostatic clips were successfully placed. Area was successfully injected with 2 mL Aure ink for tattooing. Multiple medium-mouthed diverticula were found in the sigmoid colon. The exam was otherwise normal throughout the examined colon. Internal hemorrhoids were found during retroflexion. The hemorrhoids were moderate. Impression: - One 10 mm residual polyp in the descending colon, removed with a hot snare. Resected and retrieved. Clips were placed. Injected with Aure Ink. - Diverticulosis in the sigmoid colon. - Internal Hemorrhoids. - Otherwise normal colonoscopy. Recommendation: - Repeat colonoscopy in 2 years for surveillance after piecemeal polypectomy. Gregg Hanna MD Gregg HANNA MD 12/07/2018 1:22:33 PM This report has been signed electronically. Number of Addenda: 0 Note Initiated On: 12/07/2018 12:30 PM Estimated Blood Loss: Estimated blood loss: none.
[2018-12-07 13:55] VITALS: BP 157/87
== END 2018-12-07 14:08 | disposition home or self-care (01) ==
LOC: M OPP 09:54
PROVIDERS: ATTEND Internal Medicine Gastroenterology
DX: Z86.010 Personal history of colon polyps (principal); D12.4 Benign neoplasm of descending colon; K57.30 Diverticulosis of large intestine without perforation or abscess without bleeding; K74.60 Unspecified cirrhosis of liver; I85.10 Secondary esophageal varices without bleeding; K76.6 Portal hypertension; K31.89 Other diseases of stomach and duodenum; K64.8 Other hemorrhoids; E10.9 Type 1 diabetes mellitus without complications; M79.7 Fibromyalgia; Z79.4 Long term (current) use of insulin; Z79.899 Other long term (current) drug therapy; Z86.14 Personal history of Methicillin resistant Staphylococcus aureus infection; Z87.891 Personal history of nicotine dependence; Z80.0 Family history of malignant neoplasm of digestive organs

== ENCOUNTER 2018-12-11 18:25 | Inpatient (IN) | payer OTHER ==
[~2018-12-11] VITALS: Ht 162.6 cm; Wt 76.8 kg
[~2018-12-11 18:25] MED LIST changes: -LIDOCAINE 2% INJ 100 MG/5 ML SDV (FOR ANES.) As Ordered ONE; -PROPOFOL 200 MG/20 ML VIAL As Ordered ONE
[2018-12-11] MEDS ORDERED: ESTR1CRE (18:33)
[2018-12-11] MEDS ORDERED: CYCL10TA (18:33)
[2018-12-11 20:07] LABS: BASO % 0.4 % (0.0-1.0); EOS # 0.2 10^3/uL (0.0-0.50); HEMATOCRIT 38.9 % (36.0-47.0); HEMOGLOBIN 12.4 g/dl (12.0-15.5); LYMPH # 1.9 10^3/uL (1.5-4.5); LYMPH % 27.2 % (24.0-44.0); MEAN CORPUSCULAR HEMOGLOBIN 27.1 pg (27.0-33.0); MEAN CORPUSCULAR HGB CONC 31.9 g/dl (32.0-36.5); MEAN CORPUSCULAR VOLUME 84.9 fl (80.0-96.0); MONO # 0.7 10^3/uL (0.0-0.8); MONO % 9.7 % (0.0-5.0); NEUTROPHILS # 4.1 10^3/uL (1.8-7.7); NEUTROPHILS % 59.3 % (36.0-66.0); PLATELET COUNT, AUTOMATED 194 10^3/uL (150-450); RED BLOOD COUNT 4.58 10^6/uL (4.00-5.40); WHITE BLOOD COUNT 6.9 10^3/uL (4.0-10.0)
[2018-12-11 20:19] LABS: BLOOD UREA NITROGEN 7 MG/DL (7-18); CALCIUM LEVEL 9.3 MG/DL (8.8-10.2); CARBON DIOXIDE LEVEL 31 MEQ/L (21-32); CHLORIDE LEVEL 102 MEQ/L (98-107); CPK CREATINE PHOSPHOKINASE 72 U/L (26-192); CREATININE FOR GFR 0.84 MG/DL (0.55-1.30); GLOMERULAR FILTRATION RATE > 60.0 (>45); GLUCOSE, FASTING 216 MG/DL (70-100); MB/CK RELATIVE INDEX 3.06 (< OR =4); POTASSIUM SERUM 3.7 MEQ/L (3.5-5.1); SODIUM LEVEL 140 MEQ/L (136-145); TROPONIN I < 0.02 NG/ML (< 0.10)
[2018-12-11] MEDS ORDERED: NS 1,000 ML IV ONE (20:30)
[2018-12-11] MEDS ORDERED: MECLIZINE 25 MG TABLET PO ONE (20:30)
[2018-12-11] MEDS ORDERED: METOCLOPRAMIDE INJ 10MG/2ML VIAL (J2765) IV ONE (20:30)
--- NOTE | 2018-12-11 21:26 | REPVR ---
EXAM: CT Head Without Contrast EXAM DATE/TIME: 12/11/2018 9:00 PM CLINICAL HISTORY: 63 years old, female; Signs and symptoms; Other: Vertigo TECHNIQUE: Axial computed tomography images of the head/brain without contrast. All CT scans at this facility use at least one of these dose optimization techniques: automated exposure control; mA and/or kV adjustment per patient size (includes targeted exams where dose is matched to clinical indication); or iterative reconstruction. COMPARISON: CT Head without contrast 08/13/2018 3:05 PM FINDINGS: Brain: There is no evidence of intracranial bleed. The estrada-white differentiation appears preserved. There is no evidence of mass effect. Ventricles: Normal ventricles. Bones/joints: There is no evidence of fracture. Sinuses: Clear paranasal sinuses. Mastoid air cells: Clear mastoid air cells. Soft tissues: Normal. Vasculature: There is calcification carotid siphon and consistent with atherosclerotic changes. IMPRESSION: 1. No evidence of bleed. 2. No evidence of mass effect. Electronically signed by: Law Zelaya On 12/11/2018 21:25:56 PM
--- NOTE | 2018-12-11 21:28 | ECGEPIP ---
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
[2018-12-11] MEDS ORDERED: PROMETHAZINE INJ 25 MG/ML VIAL (J2550) IV ONE (22:15)
[2018-12-12] VITALS (7 sets, daily range): BP systolic 140–170; BP diastolic 56–83
[2018-12-12] MEDS ORDERED: MECLIZINE 25 MG TABLET PO ONE (00:15)
[2018-12-12] MEDS ORDERED: LOVA20TA2 PO (00:48)
[2018-12-12] MEDS ORDERED: CYCL10TA PO (00:48)
[2018-12-12] MEDS ORDERED: MAGN400T2 PO (00:48)
[2018-12-12] MEDS ORDERED: ESTR1CRE VA (00:48)
[2018-12-12] MEDS ORDERED: METOCLOPRAMIDE INJ 10MG/2ML VIAL (J2765) IV PRN (02:00)
[2018-12-12] MEDS ORDERED: MECLIZINE 12.5 MG TAB PO PRN (02:00)
[2018-12-12] MEDS ORDERED: diphenhydrAMINE INJ 50MG/ML VIAL (J1200) IM PRN (02:00)
[2018-12-12] MEDS ORDERED: GLUCAGON FOR INJ 1 MG VIAL (J1610) SC PRN (02:15)
[2018-12-12] MEDS ORDERED: DEXTROSE 50% 50 ML SYRINGE IV PRN (02:15)
[2018-12-12] MEDS ORDERED: GLUCOSE 4 GM CHEW TABLET PO PRN (02:15)
[2018-12-12] MEDS: sulfaSALAzine 500 MG TABEC PO SCH ×3 (02:25→21:28)
[2018-12-12] MEDS: SIMVASTATIN 20 MG TAB PO SCH ×2 (03:39→21:29)
[2018-12-12] MEDS: OMEPRAZOLE 20 MG CAP PO SCH ×2 (03:39→21:30)
[2018-12-12] MEDS: GABAPENTIN 300 MG CAP PO SCH ×4 (03:39→21:30)
[2018-12-12] MEDS: ALLOPURINOL 100 MG TAB PO SCH ×2 (03:39→21:29)
[2018-12-12] MEDS: LEVEMIR (INSULIN DETEMIR) 1 UNITS/0.01ML SC SCH ×3 (03:40→21:28)
[2018-12-12] MEDS: OCUVITE 1 TAB PO SCH ×2 (04:34→21:29)
[2018-12-12] MEDS: PROPRANOLOL 60 MG LA CAP PO SCH ×2 (04:34→21:29)
--- NOTE | 2018-12-12 05:07 | HPE ---
DATE OF ADMISSION: 12/12/2018 CHIEF COMPLAINT: "The room is spinning." HISTORY OF PRESENT ILLNESS: The patient is a 63-year-old female with significant past medical history of cirrhosis. She is status post esophagogastroduodenoscopy (EGD) and colonoscopy with banding and polypectomy a few weeks ago. She has diabetes, psoriatic arthritis, hypertension, hyperlipidemia and gout. She presents to the emergency room with what she describes over the past few days as the room is spinning. She states it initially started happening a few days ago when she got out of bed immediately after her EGD and colonoscopy on Monday where she had banding and polypectomy. She noticed that the room was spinning. She stayed throughout the entirety and the room was spinning despite changes in position. She is ataxic on her feet. She denies any tinnitus. She denies any hearing loss. She denies any recent upper respiratory infection or viral type symptoms, no gastroenteritis. In the emergency room her coordination is intact. On the neurological exam, she has no focal neurological deficits. She denies any cough, chest pain, fevers or chills, shortness of breath, or urinary symptoms. She does endorse some mild abdominal pain. PAST MEDICAL HISTORY: See history of the present illness (HPI). PAST SURGICAL HISTORY: She has had a cholecystectomy. HOME MEDICATIONS: Include: - sulfasalazine - lovastatin - magnesium oxide - propranolol - allopurinol - Flexeril - gabapentin - insulin - lisinopril ALLERGIES: No known drug allergies. SOCIAL HISTORY: She is a former smoker. Denies alcohol or illicit drug use. REVIEW OF SYSTEMS: A 12-point review of systems was completed, all of which were negative except those listed in the history of the present illness. VITAL SIGNS ON ADMISSION: Temperature 99.3, pulse of 84, respirations of 18, saturating at 97% on room air. Blood pressure of 151/87. PHYSICAL EXAMINATION: General: She is well nourished, in no apparent distress. Head is normocephalic, atraumatic. Eyes: Extraocular movements are intact. Pupils equal, round, reactive to light. Neck is supple. No jugular venous pressure (JVP). Lungs: Clear to auscultation. No crackles, wheezes, rales or rhonchi. Cardiovascular: Regular rate. Normal S1, S2. No murmurs, gallops, or rubs. Abdomen: Soft, nontender, nondistended, positive bowel sounds. No rebound or guarding. Extremities: No pitting edema or calf tenderness. Skin: Intact. No rashes, lesions or breakdown. Neurological: Alert and oriented (A and O) times three. No focal deficits appreciated on examination. Power and sensation are intact. Coordination is intact. No nystagmus noted. LABORATORIES AND IMAGING COMPLETED IN THE EMERGENCY ROOM: White count of 6, hemoglobin and hematocrit (H and H) of 12/38, platelet count of 194. Chemistries are unremarkable with a BUN and creatinine of 7/0.87. Troponins are within normal limits. Urinalysis (UA) is negative. IMAGING: CT of the head is no acute disease. ASSESSMENT AND PLAN: 1. Vertigo. Likely secondary to benign paroxysmal positional vertigo (BPPV) less likely to be a cerebellar or brainstem stroke. Will get an MRI of the head. Will place the patient on meclizine, Reglan as well as Benadryl. Will get PT for vestibular rehabilitation. This is unlikely to be a vestibular neuritis labyrinthitis as the patient denies tinnitus or hearing loss. Will keep the patient on telemetry for now to rule out any significant arrhythmia which is even less likely. For the rest of her chronic medical conditions: 2. Diabetes. Insulin sliding scale. Continue Levemir twice a day. 3. For her history of cirrhosis status post banding continue her propranolol for variceal bleed prophylaxis. 4. For psoriatic arthritis continue sulfasalazine. 5. For hyperlipidemia, continue lovastatin. 6. For gout, continue allopurinol. 7. For diabetic neuropathy, continue gabapentin. 8. Deep vein thrombosis (DVT) prophylaxis. Heparin subcutaneous. 9. Gastrointestinal (GI) prophylaxis. Not indicated. 10. Diet: Cardiac, diabetic diet.
[2018-12-12] MEDS: HEPARIN SOD (PORCINE) 5000 UNITS/ML VIAL SC SCH ×3 (05:08→21:30)
[2018-12-12 06:31] LABS: MAGNESIUM LEVEL 1.1 MG/DL (1.8-2.4); THYROID STIMULATING HORMONE 3.1 uIU/ML (0.358-3.740)
[2018-12-12] MEDS: MAG SULF 1GM/100ML (MAG RUN) 1 GM in APPROPRIATE DILUENT 1 EA IV SCH ×2 (07:40→08:42)
[2018-12-12] MEDS: ASCORBIC ACID 500 MG TAB PO SCH (08:40)
[2018-12-12] MEDS: MAGNESIUM OXIDE 400 MG TAB (MAG-OX) PO SCH ×2 (08:41→21:30)
[2018-12-12] MEDS: HumaLOG INSULIN (NovoLOG) PER UNIT SC SCH ×3 (08:42→17:53)
[2018-12-12] MEDS ORDERED: MAGNESIUM OXIDE 400 MG TAB (MAG-OX) PO SCH (09:00)
[2018-12-12] MEDS ORDERED: SLF 3 ML SYR IV PRN (11:45)
[2018-12-12] MEDS: SLF 3 ML SYR IV SCH ×2 (13:28→21:31)
[2018-12-12 13:29] LABS: BASO % 0.5 % (0.0-1.0); EOS # 0.2 10^3/uL (0.0-0.50); EOS % 2.9 % (0.0-3.0); HEMATOCRIT 37.2 % (36.0-47.0); HEMOGLOBIN 11.9 g/dl (12.0-15.5); LYMPH # 1.9 10^3/uL (1.5-4.5); LYMPH % 30.2 % (24.0-44.0); MEAN CORPUSCULAR VOLUME 84.5 fl (80.0-96.0); MONO # 0.7 10^3/uL (0.0-0.8); MONO % 10.8 % (0.0-5.0); NEUTROPHILS # 3.4 10^3/uL (1.8-7.7); NEUTROPHILS % 55.4 % (36.0-66.0); PLATELET COUNT, AUTOMATED 167 10^3/uL (150-450); WHITE BLOOD COUNT 6.1 10^3/uL (4.0-10.0)
[2018-12-12 13:58] LABS: ALBUMIN 3.1 GM/DL (3.2-5.2); ALT/SGPT 14 U/L (12-78); BILIRUBIN,TOTAL 0.5 MG/DL (0.2-1.0); BLOOD UREA NITROGEN 9 MG/DL (7-18); CARBON DIOXIDE LEVEL 28 MEQ/L (21-32); CHLORIDE LEVEL 104 MEQ/L (98-107); CREATININE FOR GFR 0.77 MG/DL (0.55-1.30); GLOMERULAR FILTRATION RATE > 60.0 (>45); GLUCOSE, FASTING 218 MG/DL (70-100); SODIUM LEVEL 140 MEQ/L (136-145); TOTAL PROTEIN 7.5 GM/DL (6.4-8.2)
--- NOTE | 2018-12-12 15:11 | REP ---
MRI BRAIN WITHOUT CONTRAST: HISTORY: Vertiginous symptoms. Altered mental status. Comparison MRI study of the brain is from August 15, 2018. TECHNIQUE: Axial and sagittal imaging planes are utilized for T1- and T2-weighted scans. Sequences include spin-echo, fast spin echo, FLAIR, and diffusion weighted sequences. MRI FINDINGS: No bony calvarial lesion is seen. There is no MR evidence of significant paranasal sinus disease. No intraorbital abnormality is seen. Craniocervical junction and upper cervical cord are normal in appearance. There is mild generalized volume loss again noted, unchanged. Diffusion-weighted scan show no evidence to suggest acute ischemia. There is no evidence of intracranial mass, infarction, hemorrhage, or extra-axial fluid collection. There are minimal small vessel atherosclerotic changes in the subcortical white matter of the parietal lobes and frontal lobes bilaterally, unchanged. IMPRESSION: No acute intracranial lesion. Minimal small vessel changes and generalized volume loss. Stable findings from August 15, 2018. Electronically Signed by Uri Cooper MD 12/12/2018 03:18 P
[2018-12-12] MEDS ORDERED: traMADol 50 MG TAB PO PRN (16:15)
[2018-12-12] MEDS ORDERED: ACETAMINOPHEN TAB 650MG DOSE (2X325MG) PO PRN (16:15)
[2018-12-12] MEDS ORDERED: LISINOPRIL 5 MG TAB PO SCH (21:00)
[2018-12-13] VITALS: BP 174/69
[2018-12-13 04:00] VITALS: BP 150/75
[2018-12-13 05:59] LABS: HEMATOCRIT 36.3 % (36.0-47.0); HEMOGLOBIN 11.7 g/dl (12.0-15.5); MEAN CORPUSCULAR HGB CONC 32.2 g/dl (32.0-36.5); MEAN CORPUSCULAR VOLUME 83.8 fl (80.0-96.0); PLATELET COUNT, AUTOMATED 153 10^3/uL (150-450); RED BLOOD COUNT 4.33 10^6/uL (4.00-5.40); WHITE BLOOD COUNT 6.3 10^3/uL (4.0-10.0)
[2018-12-13] MEDS: SLF 3 ML SYR IV SCH (06:00)
[2018-12-13] MEDS: HEPARIN SOD (PORCINE) 5000 UNITS/ML VIAL SC SCH (06:15)
[2018-12-13 06:27] LABS: BLOOD UREA NITROGEN 7 MG/DL (7-18); CALCIUM LEVEL 8.6 MG/DL (8.8-10.2); CARBON DIOXIDE LEVEL 30 MEQ/L (21-32); CHLORIDE LEVEL 104 MEQ/L (98-107); CREATININE FOR GFR 0.62 MG/DL (0.55-1.30); GLOMERULAR FILTRATION RATE > 60.0 (>45); GLUCOSE, FASTING 101 MG/DL (70-100); POTASSIUM SERUM 3.8 MEQ/L (3.5-5.1); SODIUM LEVEL 142 MEQ/L (136-145)
[2018-12-13] MEDS: HumaLOG INSULIN (NovoLOG) PER UNIT SC SCH (07:28)
[2018-12-13 08:00] VITALS: BP 116/78
[2018-12-13] MEDS: ASCORBIC ACID 500 MG TAB PO SCH (08:35)
[2018-12-13] MEDS: sulfaSALAzine 500 MG TABEC PO SCH (08:35)
[2018-12-13] MEDS: MAGNESIUM OXIDE 400 MG TAB (MAG-OX) PO SCH (08:35)
[2018-12-13] MEDS: GABAPENTIN 300 MG CAP PO SCH (08:35)
[2018-12-13] MEDS: LEVEMIR (INSULIN DETEMIR) 1 UNITS/0.01ML SC SCH (08:36)
[2018-12-13] MEDS ORDERED: MAGN400C3 PO (09:33)
--- NOTE | 2018-12-13 18:30 | DSES ---
DATE OF ADMISSION: 12/12/2018 DATE OF DISCHARGE: 12/13/2018 PRIMARY CARE PROVIDER: Yadira Valdez DISCHARGE DIAGNOSES: 1. Vertigo. 2. Diabetes. 3. Cirrhosis status-post venting. 4. Psoriatic arthritis. 5. Hyperlipidemia. 6. Gout. 7. Diabetic neuropathy. HOSPITALIZATION COURSE: Patient is a 63-year-old female who presented to [facility] on 12/11/2018 in the evening time with a complaint of vertigo. Patient had a recent history of EGD and colonoscopy with banding and polypectomy. The vertigo has been persistent and patient has difficulty maintaining her daily activities therefore patient came to [facility] for further evaluation. Patient admitted under hospitalist team. Diagnostic workup initiated. MR order, physical therapy was also consulted for vestibular evaluation and rehabilitation. Diagnostic workup all came back negative. Laboratory data all came back negative. During the physical therapy evaluation, patient was found to have positional vertigo and treatment was given during the physical therapy. Patient's vertigo showed significant improvement after the physical therapy session. Patient was evaluated afterwards. On 12/13/2018, the patient has functionally returned to her baseline with the recommendation to followup with her primary care provider at her original scheduled time on 12/16/2018. Outpatient physical therapy was prescription was also given to the patient in case there is a recurrence of similar symptoms. OBJECTIVE: VITAL SIGNS: Temperature 97.6, pulse 73, respirations 22, blood pressure 116/78, pulse ox 97% on room air. LABORATORY DATA ON DAY OF DISCHARGE: WBC 6.3, hemoglobin 11.7, hematocrit 36.3, platelet count 153, sodium 142, potassium 3.8, chloride 104, carbon dioxide 30, BUN 7, creatinine 0.62, GFR greater than 60, fasting glucose 101, calcium 8.6. Urinalysis was negative. IMAGING STUDIES: CT of the head without contrast on 12/11/2018 demonstrated no evidence of bleeding. No evidence of mass effect. MRI of the brain without contrast 12/12/2018 demonstrated no acute intracranial lesion. Minimal small vessel changes of generalized surrounding viramontes. DISCHARGE MEDICATIONS: Magnesium oxide 400 mg by mouth twice a day, allopurinol 100 mg by mouth at bedtime, vitamin C 1000 mg by mouth daily, cyclobenzaprine 10 mg by mouth three times a day as needed for muscle spasms, Estrace 0.1 VA three times a week, gabapentin 300 mg by mouth three times a day, insulin subcu before meals and at bedtime, Levemir 55 units subcu twice a day, lisinopril 5 mg by mouth at bedtime, lovastatin 20 mg by mouth at bedtime, multivitamin 1 tab by mouth at bedtime, omeprazole 40 mg by mouth at bedtime, propranolol 60 mg by mouth at bedtime, sucralfate 1000 mg by mouth twice a day. DISCHARGE INSTRUCTION: Discontinue line, discharge home. Activity as tolerated. Consistent carbohydrate as tolerated. Patient should followup with her primary care provider Yadira Valdez on 12/16/2018. Patient was instructed that in case of recurrence of the symptoms patient should followup with outpatient physical therapy for reevaluation and treatment. Prescription was given to the patient and agrees and understands the plan. DISCHARGE CONDITION: Fair. DISCHARGE TIME: Greater than 30 minutes.
== END 2018-12-13 11:44 | disposition home or self-care (01) | DRG 149 ==
LOC: M ED 18:25 → M ED INP 12-12 02:12 → M PCU 12-12 03:14
PROVIDERS: ADMIT Internal Medicine; ATTEND Internal Medicine
DX: H81.13 Benign paroxysmal vertigo, bilateral (principal); E11.40 Type 2 diabetes mellitus with diabetic neuropathy, unspecified; L40.50 Arthropathic psoriasis, unspecified; I10 Essential (primary) hypertension; E78.5 Hyperlipidemia, unspecified; M10.9 Gout, unspecified; R27.0 Ataxia, unspecified; Z90.49 Acquired absence of other specified parts of digestive tract; Z79.4 Long term (current) use of insulin; Z79.899 Other long term (current) drug therapy; Z87.891 Personal history of nicotine dependence; K74.60 Unspecified cirrhosis of liver

== ENCOUNTER 2018-12-18 15:07 | Emergency (ER) | payer OTHER ==
[~2018-12-18] VITALS: Ht 162.6 cm; Wt 90.9 kg
[~2018-12-18 15:07] MED LIST changes: +CYCL10TA; +CYCL10TA PO; +ESTR1CRE; +ESTR1CRE VA; +LOVA20TA2 PO; +MAGN400C3 PO; +MAGN400T2 PO
[2018-12-18] MEDS ORDERED: MORPHINE 2 MG/ML 1ML SYRINGE (J2270) IV ONE (18:00)
[2018-12-18 18:19] LABS: HEMATOCRIT 41.1 % (36.0-47.0); MEAN CORPUSCULAR HEMOGLOBIN 26.7 pg (27.0-33.0); MEAN CORPUSCULAR HGB CONC 31.6 g/dl (32.0-36.5); MEAN CORPUSCULAR VOLUME 84.4 fl (80.0-96.0); PLATELET COUNT, AUTOMATED 218 10^3/uL (150-450); RED BLOOD COUNT 4.87 10^6/uL (4.00-5.40); WHITE BLOOD COUNT 8.3 10^3/uL (4.0-10.0)
[2018-12-18 18:54] LABS: ALBUMIN 3.6 GM/DL (3.2-5.2); ALT/SGPT 16 U/L (12-78); BILIRUBIN,TOTAL 0.7 MG/DL (0.2-1.0); BLOOD UREA NITROGEN 11 MG/DL (7-18); CALCIUM LEVEL 9.1 MG/DL (8.8-10.2); CARBON DIOXIDE LEVEL 30 MEQ/L (21-32); CHLORIDE LEVEL 101 MEQ/L (98-107); GLOMERULAR FILTRATION RATE > 60.0 (>45); GLUCOSE, FASTING 204 MG/DL (70-100); POTASSIUM SERUM 4.4 MEQ/L (3.5-5.1); SODIUM LEVEL 137 MEQ/L (136-145); TOTAL PROTEIN 7.8 GM/DL (6.4-8.2)
[2018-12-18] MEDS ORDERED: ISOVUE-370 76% 100ML VIAL (Q9967) As Ordered ONE (19:05)
--- NOTE | 2018-12-18 20:19 | REPVR ---
EXAM: CT Abdomen and Pelvis With Contrast EXAM DATE/TIME: 12/18/2018 7:24 PM CLINICAL HISTORY: 63 years old, female; Pain; Abdominal pain; Other: Suprapubic; Additional info: Suprapubic tenderness TECHNIQUE: Axial computed tomography images of the abdomen and pelvis with intravenous contrast. All CT scans at this facility use at least one of these dose optimization techniques: automated exposure control; mA and/or kV adjustment per patient size (includes targeted exams where dose is matched to clinical indication); or iterative reconstruction. Coronal and sagittal reformatted images were created and reviewed. CONTRAST: 100 ml of ISOVUE 370 administered intravenously. COMPARISON: CT ABD/PEL W/IV CONTRAST ONLY 05/22/2018 11:12 PM FINDINGS: Lower thorax: No acute findings. ABDOMEN: Liver: Examination of the liver demonstrates a lobular surface contour, and enlargement of the left and caudate lobes, findings consistent with cirrhosis. Prominent hepatic arteries consistent with cirrhotic morphology. Enlarged main portal vein measures 1.7 cm without evidence of thrombosis. Gallbladder and bile ducts: There has been a cholecystectomy. Pancreas: Visible nondilated pancreatic duct in the pancreatic head and proximal body. Otherwise unremarkable pancreas. Spleen: There is moderate nonspecific splenomegaly. Splenic span of 14.5 cm. No focal abnormalities. Adrenals: Normal. No mass. Kidneys and ureters: Right renal cyst measures 1.9 cm. Kidneys otherwise unremarkable. Stomach and bowel: Mild diverticulosis is present in the distal colon. Minimal pericolonic inflammatory changes in suprapubic segment of the sigmoid colon may indicate mild uncomplicated diverticulitis. Appendix: No evidence of appendicitis. PELVIS: Bladder: Unremarkable as visualized. Reproductive: Unremarkable as visualized. Subperitoneal space: Splenorenal and perirectal portosystemic collaterals. ABDOMEN and PELVIS: Intraperitoneal space: Normal. No free air. No significant fluid collection. Bones/joints: The spine demonstrates mild degenerative changes. Soft tissues: Unremarkable. Vasculature: The aorta demonstrates mild atherosclerotic calcification. Lymph nodes: Lymph nodes in the gastrohepatic ligament measure up to 1.4 cm. IMPRESSION: 1. Examination of the liver demonstrates a lobular surface contour, and enlargement of the left and caudate lobes, findings consistent with cirrhosis. 2. There has been a cholecystectomy. 3. There is moderate nonspecific splenomegaly. Splenic span of 14.5 cm. No focal abnormalities. 4. Mild diverticulosis is present in the distal colon. Minimal pericolonic inflammatory changes in suprapubic segment of the sigmoid colon may indicate mild uncomplicated diverticulitis. Electronically signed by: Mert Cho On 12/18/2018 20:19:25 PM
[2018-12-18] MEDS ORDERED: NORC1TAB4 PO (22:10)
[2018-12-18] MEDS ORDERED: PYRI1TAB5 PO (22:10)
[2018-12-18] MEDS ORDERED: PHENAZOPYRIDINE 100 MG TAB PO ONE (22:15)
[2018-12-18] MEDS ORDERED: KETOROLAC 30 MG/ML VIAL (J1885) IV ONE (22:15)
[2018-12-18] MEDS ORDERED: NORCO 5/325MG TABLET (BULK FOR ED) PO ONE (22:15)
[2018-12-18 22:30] VITALS: BP 157/74
[2018-12-18 23:08] LABS: CHLAMYDIA DNA AMPLIFICATION NEGATIVE (NEGATIVE); GC DNA AMPLIFICATION NEGATIVE (NEGATIVE)
--- NOTE | 2018-12-19 14:42 | ED PDOC ---
Post-Departure Follow-Up sylvie garcia faxed formal report of ct abd/p for fu Heidy Scanlon MD Dec 19, 2018 14:42
== END 2018-12-18 22:40 | disposition home or self-care (01) ==
LOC: M ED 15:07
DX: R10.9 Unspecified abdominal pain (principal); E11.9 Type 2 diabetes mellitus without complications; I10 Essential (primary) hypertension; Z87.891 Personal history of nicotine dependence
CPT/HCPCS: 74177; 80053; 81001; 85027; 87210; 87491; 87591; 96374; 96375; 99284; J2270; Q9967

== ENCOUNTER 2019-01-04 21:15 | Emergency (ER) | payer OTHER ==
[~2019-01-04] VITALS: Ht 162.6 cm; Wt 89.1 kg
[2019-01-04] MEDS ORDERED: NORCOTAB PO (23:05)
[2019-01-04] MEDS ORDERED: NORCO 5/325MG TABLET (BULK FOR ED) PO ONE (23:15)
[2019-01-04 23:19] VITALS: BP 136/65
== END 2019-01-04 23:30 | disposition home or self-care (01) ==
LOC: M ED 21:15
DX: M54.16 Radiculopathy, lumbar region (principal); E11.9 Type 2 diabetes mellitus without complications; I10 Essential (primary) hypertension; Z87.891 Personal history of nicotine dependence; Z79.899 Other long term (current) drug therapy; Z79.4 Long term (current) use of insulin; Z79.890 Hormone replacement therapy

== ENCOUNTER 2019-02-07 12:58 | Day surgery (SDC) | payer OTHER ==
[~2019-02-07] VITALS: Ht 162.6 cm; Wt 88.4 kg
[~2019-02-07 12:58] MED LIST changes: +BALANCED SALT IRRIGATION SOLUTION 500ML BAG (FOR OR EYE MACHINE) As Ordered ONE; +CEFUROXIME 1MG/0.1ML INTRACAMERAL INJ As Ordered ONE; +DUOVISC (0.50ML VISCOAT/0.55ML PROVISC) OPHTH KIT As Ordered ONE; +ENBR50IN2 SC; +LIDOCAINE 0.75%/EPINEPHRINE 0.025% IN BSS 1ML SYR INTRACAMERAL (OR ONLY) As Ordered ONE; +OFLOXACIN 0.3 % (OCUFLOX) OPTH SOL 5ML OS ONE; +PHENYLEPHRINE 2.5% OPHTH SOL 2ML OS ONE; +POVIDONE-IODINE 5% OPHTH PREP SOL 30ML As Ordered ONE; +PROPARACAINE 0.5% OPHTH SOL 15ML OS ONE; +TROPICAMIDE 1% OPHTH SOLN 2ML OS ONE
[2019-02-07] MEDS ORDERED: fentaNYL 100 MCG/2 ML INJECTION (J3010) As Ordered ONE (13:09)
[2019-02-07] MEDS ORDERED: MIDAZOLAM INJ 2 MG/2 ML VIAL (J2250) As Ordered ONE (13:09)
[2019-02-07] MEDS ORDERED: POVIDONE-IODINE 5% OPHTH PREP SOL 30ML As Ordered ONE (15:01)
[2019-02-07 16:00] VITALS: BP 118/61
--- NOTE | 2019-02-08 16:23 | RO ---
DATE OF PROCEDURE: 02/07/2019 PREOPERATIVE DIAGNOSIS: 1. Visually significant nuclear sclerotic cataract left eye. POSTOPERATIVE DIAGNOSIS: 1. Visually significant nuclear sclerotic cataract left eye. PROCEDURE: 1. Cataract extraction with use of phacoemulsification and placement of intraocular lens, AU00T0, 19.5 D, left eye. SURGEON: Chris Goddard DO PARKING WORKER: None. ANESTHESIA: Local with monitored anesthesia care (MAC). COMPLICATIONS: None. POSTOPERATIVE CONDITION: Stable. INDICATIONS FOR SURGERY: 1. Blurred vision affecting patients activities of daily living. DESCRIPTION OF PROCEDURE: The patient was seen in the preoperative area and properly identified. The correct operative eye was identified and marked. The patient received topical anesthetic, antibiotics, and topical dilating drops. The patient was then transferred to the operating room. The correct side was re-identified, and a time-out was performed. The eye was prepped and draped in a sterile fashion. The eyelids were isolated with Tegaderm tape, and the lids were held open with an adjustable speculum. A 1.0 mm paracentesis incision was made. Intraocular preservative-free Shugarcaine was then injected into the anterior chamber. Viscoelastic was then injected into the anterior chamber through the paracentesis. Using a 2.4 mm sharp-tipped keratome, the anterior chamber was entered via a temporal clear cornea incision. A continuous curvilinear capsulorrhexis was created with Utrata forceps. Hydrodissection was performed with balanced salt solution (BSS) on a blunt cannula until the nucleus was able to rotate freely. The crystalline lens was phacoemulsified and aspirated. Irrigation/aspiration was used to remove the cortical material. Cohesive viscoelastic was placed into the capsular bag to deepen it. The implant was placed into the capsular bag and allowed to unfold. Placement was confirmed by visualizing the anterior capsulorrhexis. Irrigation/aspiration was used to remove the viscoelastic. The clear corneal incision was hydrated with BSS on a blunt cannula. The lens was well positioned. The incisions were then tested for leaks and found to be negative. The eye was then palpated for appropriate pressure and adjusted accordingly with BSS. The eyelid speculum was then carefully removed. A shield was placed over the eye. The patient tolerated the procedure well and was discharged to the recovery unit in a stable condition. BRIAN
== END 2019-02-07 16:20 | disposition home or self-care (01) ==
LOC: M SDC 12:58
PROVIDERS: ATTEND Ophthalmology
DX: H25.12 Age-related nuclear cataract, left eye (principal); E11.40 Type 2 diabetes mellitus with diabetic neuropathy, unspecified; K21.9 Gastro-esophageal reflux disease without esophagitis; M79.7 Fibromyalgia; M10.9 Gout, unspecified; E78.00 Pure hypercholesterolemia, unspecified; E78.5 Hyperlipidemia, unspecified; I10 Essential (primary) hypertension; Z79.899 Other long term (current) drug therapy; Z79.4 Long term (current) use of insulin
CPT/HCPCS: 66984; J2250; J3010; V2632

== ENCOUNTER 2019-03-05 11:41 | Day surgery (SDC) | payer OTHER ==
[~2019-03-05] VITALS: Ht 162.6 cm; Wt 89.1 kg
[~2019-03-05 11:41] MED LIST changes: +ACET-716 PO; -ACET30TAB PO; -BALANCED SALT IRRIGATION SOLUTION 500ML BAG (FOR OR EYE MACHINE) As Ordered ONE; -CEFUROXIME 1MG/0.1ML INTRACAMERAL INJ As Ordered ONE; -DULO30CA PO; +DULO30CA9 PO; -DUOVISC (0.50ML VISCOAT/0.55ML PROVISC) OPHTH KIT As Ordered ONE; +GLYB-147 PO; -GLYB5TA PO; +HYDR-3715 PO; -LIDOCAINE 0.75%/EPINEPHRINE 0.025% IN BSS 1ML SYR INTRACAMERAL (OR ONLY) As Ordered ONE; -NORC1TAB4 PO; +NORC1TAB7 PO; -NORCOTAB PO; +NYST100029 TOP; -NYST10CR TOP; -OFLOXACIN 0.3 % (OCUFLOX) OPTH SOL 5ML OS ONE; -PHENYLEPHRINE 2.5% OPHTH SOL 2ML OS ONE; -POVIDONE-IODINE 5% OPHTH PREP SOL 30ML As Ordered ONE; -PROPARACAINE 0.5% OPHTH SOL 15ML OS ONE; -TROPICAMIDE 1% OPHTH SOLN 2ML OS ONE
[2019-03-05] MEDS ORDERED: NS 1,000 ML IV ONE (13:30)
[2019-03-05] MEDS ORDERED: LIDOCAINE 2% INJ 100 MG/5 ML SDV (FOR ANES.) As Ordered ONE (14:41)
[2019-03-05] MEDS ORDERED: PROPOFOL 200 MG/20 ML VIAL As Ordered ONE (14:41)
--- NOTE | 2019-03-05 14:50 | ROOR ---
Patient Name: Christina Ngo Procedure Date: 03/05/2019 2:34 PM Date of : 1955 Age: 63 Room: [facility] Gender: Female Note Status: Finalized Procedure: Upper GI endoscopy Indications: Cirrhosis rule out esophageal varices, Esophageal varices Providers: Gregg QUEZADA MD Referring MD: FOREST YEBOAH NP Requesting Provider: Medicines: Monitored Anesthesia Care Complications: No immediate complications. Procedure: Pre-Anesthesia Assessment: - The heart rate, respiratory rate, oxygen saturations, blood pressure, adequacy of pulmonary ventilation, and response to care were monitored throughout the procedure. The Endoscope was introduced through the mouth, and advanced to the second part of duodenum. The upper GI endoscopy was accomplished without difficulty. The patient tolerated the procedure well. Findings: Grade I varices were found in the lower third of the esophagus. They were small in size. (Varices are small today, primary prevention/eradication not indicated today) The exam of the esophagus was otherwise normal. The entire examined stomach was normal. The examined duodenum was normal. Impression: - Grade I esophageal varices. (Varices are small today, primary prevention/eradication not indicated today) - Normal stomach. - Normal examined duodenum. - No specimens collected. Recommendation: - Continue present medications. - Use Prilosec (omeprazole) 40 mg PO daily. Gregg Quezada MD Gregg QUEZADA MD 03/05/2019 2:50:21 PM Electronically signed by Gregg QUEZADA MD Number of Addenda: 0 Note Initiated On: 03/05/2019 2:34 PM Estimated Blood Loss: Estimated blood loss: none.
[2019-03-05 15:34] VITALS: BP 179/80
== END 2019-03-05 15:33 | disposition home or self-care (01) ==
LOC: M OPP 11:41
PROVIDERS: ATTEND Internal Medicine Gastroenterology
DX: I85.10 Secondary esophageal varices without bleeding (principal); K74.60 Unspecified cirrhosis of liver

== ENCOUNTER → 2019-10-18 | Outpatient (CLI) | payer OTHER ==
[~2019-10-18] MED LIST changes: -ENBR50IN2 SC; +ETAN50SY SC; +METF-791 PO; -METF500T4 PO; -METF750T PO; +METF750T36 PO; +OMEP-172 PO; -OMEP20CA3 PO; -OMEP40CA2 PO; +OMEP40CA97 PO; -SIMV10TA2 PO; +SIMV10TA21 PO; -SIMV20TA2 PO; +SIMV20TA22 PO; -SIMV40TA2 PO; +SIMV40TA20 PO; -TRAZ-160 PO; +TRAZ-252 PO; -VITA1CHW5 PO; +VITA250C3 PO
--- NOTE | 2019-10-18 13:16 | REPMRS ---
Patient History The patient states she has not had a clinical breast exam in over a year. Patient is postmenopausal. Family history of colorectal cancer at age 50 in brother. No Hormone Replacement Therapy 3D TOMOSYNTHESIS WAS PERFORMED. The [facility] lifetime risk for breast cancer is 9.8%. Digital Woman Screen Mammo: October 18, 2019 - Exam #: [id number] Bilateral CC and MLO view(s) were taken. Technologist: Ciara Rushing, Technologist Prior study comparison: February 05, 2018, digital woman screen mammo performed at [facility]. January 20, 2016, digital woman screen mammo performed at [facility]. FINDINGS: There are scattered fibroglandular densities. There has been no change in the appearance of the mammogram from the prior studies. There is a mild amount of residual fibroglandular tissue which is fairly symmetric. There is no interval development of dominant mass, architectural distortion, or clustered microcalcification suggestive of malignancy. Assessment: BI-RADS/ACR category 1 mammogram. Negative Mammogram. Recommendation Routine screening mammogram in 1 year (for women over age 40). This mammogram was interpreted with the aid of an FDA-approved computer-aided dectection system. Electronically Signed By: Santana Pacheco MD 10/18/19 [id number]
--- NOTE | 2019-10-22 15:27 | DEXA ---
AP SPINE L1 - L4 1.026 -1.4 0.0 LT FEMUR TOTAL 0.782 -1.8 -0.8 LT NECK 0.802 -1.7 -0.4 RT FEMUR TOTAL 0.739 -2.1 -1.1 RT NECK 0.754 -2.0 -0.7 TOTAL BODY TOTAL OTHER COMMENTS: There is low bone density of the spine and hips. The density of the spine has decreased 16.4% since 08/11/2009. The density of the left hip has decreased 27.6% since 08/11/2009. The density of the right hip has decreased 26.2% since 08/11/2009. The decreased density of the spine does represent a significant change. The decreased density of the left hip does represent a significant change. The decreased density of the right hip does represent a significant change. FOLLOW-UP: Recommendation for the next bone density exam: 2 years. BRIAN
== END ==
LOC: M WHC 11:09
PROVIDERS: ATTEND Nurse Practitioner Adult Health
DX: Z12.31 Encounter for screening mammogram for malignant neoplasm of breast (principal); Z13.820 Encounter for screening for osteoporosis; M85.88 Other specified disorders of bone density and structure, other site; M85.851 Other specified disorders of bone density and structure, right thigh; M85.852 Other specified disorders of bone density and structure, left thigh

== ENCOUNTER → 2020-04-13 | Outpatient (CLI) | payer OTHER ==
[~2020-04-13] MED LIST changes: +CYCL-707; +CYCL-707 PO; -CYCL10TA; -CYCL10TA PO; -MECL-68 PO; +MECL1TAB31 PO; -METF-791 PO; +METF-838 PO; -OMEP-172 PO; +OMEP1CAP73 PO; -ROPI0.5T PO; +ROPI0.5T3 PO; -ROPI1TAB PO; +ROPI1TAB3 PO; +SULF500T41 PO; -SULF50TA PO; +VITA-243 PO; -VITA500T PO
--- NOTE | 2020-04-23 06:38 | REP ---
Clinical: History of displaced by condylar tibial fracture. Technique: Axial noncontrast images through the left knee from the distal femoral diaphysis to the proximal tibial diaphysis. Coronal and sagittal re-formations obtained. Findings: There is a moderate joint/suprapatellar effusion along with subcutaneous infiltration. There is evidence for moderate to early significant osteoarthritic degenerative changes including tricompartmental joint space narrowing, marginal osteophytosis, and chondrocalcinosis. Chronic corticated fracture fragments and loose bodies in the intercondylar notch are also identified. An extremely subtle nondisplaced fracture along the lateral margin of the lateral tibial plateau cannot definitively be excluded and evaluation is limited due to the underlying osteopenia and arthritic changes. No further obvious acute fracture or dislocation identified. Impression: 1. Joint effusion and subcutaneous infiltration. 2. Osteopenia and moderate/early advanced osteoarthritic degenerative changes noted which limit evaluation. 3. A very subtle nondisplaced fracture along the lateral aspect of the lateral tibial plateau cannot be excluded. Consider MRI for further more detailed investigation. Electronically Signed by Michael Vincent MD 04/23/2020 06:29 A
== END ==
LOC: M RAD 07:09
PROVIDERS: ATTEND Orthopaedic Surgery
DX: S82.142A Displaced bicondylar fracture of left tibia, initial encounter for closed fracture (principal); M25.462 Effusion, left knee; M17.12 Unilateral primary osteoarthritis, left knee; M85.862 Other specified disorders of bone density and structure, left lower leg

== ENCOUNTER 2020-07-08 13:31 | Inpatient (IN) | payer OTHER, MEDICARE ==
[~2020-07-08] VITALS: Ht 162.6 cm; Wt 103.4 kg
[~2020-07-08 13:31] MED LIST changes: -ASPI81TA85 PO; +ASPI81TA86 PO
[2020-07-08] MEDS ORDERED: LISI10TA4 PO (13:38)
[2020-07-08] MEDS ORDERED: TIZA2TA PO (14:26)
[2020-07-08] MEDS ORDERED: AMLO1TAB24 PO (14:26)
[2020-07-08] MEDS ORDERED: LEVO25TA5 PO (14:26)
[2020-07-08] MEDS ORDERED: OTEZ1TAB3 PO (14:26)
[2020-07-08] MEDS ORDERED: NS 1,000 ML IV ONE (14:45)
--- NOTE | 2020-07-08 15:03 | REPVR ---
PROCEDURE INFORMATION: Exam: XR Chest, 1 View Exam date and time: 07/08/2020 2:54 PM Age: 64 years old Clinical indication: Other: AMS; Additional info: Altered mental status TECHNIQUE: Imaging protocol: XR of the chest Views: 1 view. COMPARISON: CR Chest, 2 view PA, Lat 08/13/2018 3:15 PM FINDINGS: Lungs: There is minimal bibasilar linear atelectasis or scar. Pleural space: Unremarkable. No pleural effusion. No pneumothorax. Heart/Mediastinum: Heart size appears mildly enlarged, but this may be exaggerated by the lordotic projection. Bones/joints: Bones appear osteopenic. Multilevel degenerative change in the thoracic spine. Other findings: Projection is lordotic. IMPRESSION: 1. No acute cardiopulmonary abnormality. Minimal linear atelectasis or scar at the lung bases. 2. The appearance of mild cardiomegaly may be exaggerated by the lordotic projection. Electronically signed by: Chandrika Alston On 07/08/2020 15:03:53 PM
[2020-07-08] MEDS ORDERED: DEXTROSE 50% 50 ML SYRINGE IV STA (15:36)
[2020-07-08 15:52] LABS: VENOUS HCO3 29.2 MEQ/L (23.0-27.0); VENOUS PARTIAL PRESSURE O2 96.1 mmHg (30.0-50.0); VENOUS PH 7.411 UNITS (7.330-7.430); VENOUS TOTAL CO2 30.6 MEQ/L (24.0-28.0)
[2020-07-08 15:53] LABS: VENOUS BASE EXCESS 3.9 (-2.0-2.0); VENOUS O2 SATURATION 97.2 % (60.0-80.0)
[2020-07-08 15:58] LABS: BASO # 0.1 10^3/uL (0.0-0.2); BASO % 0.6 % (0.0-1.0); EOS # 0.2 10^3/uL (0.0-0.5); EOS % 2.4 % (0.0-3.0); HEMATOCRIT 31.8 % (36.0-47.0); HEMOGLOBIN 10.5 g/dl (12.0-15.5); LYMPH # 1.6 10^3/uL (1.5-5.0); LYMPH % 17.1 % (24.0-44.0); MEAN CORPUSCULAR HEMOGLOBIN 27.4 pg (27.0-33.0); MONO # 1.4 10^3/uL (0.0-0.8); MONO % 15.9 % (0.0-5.0); NEUTROPHILS # 5.8 10^3/uL (1.5-8.5); NEUTROPHILS % 63.8 % (36.0-66.0); PLATELET COUNT, AUTOMATED 169 10^3/uL (150-450); RED BLOOD COUNT 3.83 10^6/uL (4.00-5.40); WHITE BLOOD COUNT 9.1 10^3/uL (4.0-10.0)
[2020-07-08 16:40] LABS: ACETAMINOPHEN LEVEL < 2.0 UG/ML (10.0-30.0); ALBUMIN 2.5 GM/DL (3.2-5.2); ALT/SGPT 9 U/L (12-78); BILIRUBIN,DIRECT 0.6 MG/DL (0.0-0.2); BILIRUBIN,TOTAL 1.1 MG/DL (0.2-1.0); BLOOD UREA NITROGEN 51 MG/DL (7-18); CALCIUM LEVEL 8.1 MG/DL (8.8-10.2); CARBON DIOXIDE LEVEL 32 MEQ/L (21-32); CHLORIDE LEVEL 94 MEQ/L (98-107); CREATININE FOR GFR 1.46 MG/DL (0.55-1.30); ETHYL ALCOHOL (ETHANOL) < 0.003 % (0.000-0.010); GLOMERULAR FILTRATION RATE 38.6 (>45); GLUCOSE, FASTING 30 MG/DL (70-100); POTASSIUM SERUM 3.7 MEQ/L (3.5-5.1); SALICYLATE LEVEL 4.3 MG/DL (5.0-30.0); SODIUM LEVEL 132 MEQ/L (136-145); TOTAL PROTEIN 6.1 GM/DL (6.4-8.2)
[2020-07-08] MEDS ORDERED: DEXTROSE 50% 50 ML SYRINGE IV PRN (18:30)
[2020-07-08] MEDS ORDERED: GLUCOSE 4GM CHEW TABLET PO PRN (18:30)
[2020-07-08] MEDS ORDERED: GLUCAGON INJ 1MG VIAL SC PRN (18:30)
[2020-07-08] MEDS: NS 1,000 ML IV SCH (18:30)
[2020-07-08] MEDS ORDERED: SULF1TAB30 PO (18:34)
[2020-07-08] MEDS ORDERED: COMBAER6 INH (18:34)
[2020-07-08 18:49] LABS: AMPHETAMINES LEVEL URINE NEGATIVE (NEGATIVE); BARBITURATES URINE NEGATIVE (NEGATIVE); BENZODIAZEPINES URINE NEGATIVE (NEGATIVE); CANNABINOIDS URINE NEGATIVE (NEGATIVE); COCAINE METABOLITE URINE NEGATIVE (NEGATIVE); METHADONE URINE NEGATIVE (NEGATIVE); OPIATES URINE NEGATIVE (NEGATIVE); PHENCYCLIDINE URINE NEGATIVE (NEGATIVE)
[2020-07-08 18:54] LABS: C REACTIVE PROTEIN QUANTITATIV 5.25 MG/DL (0.00-0.30)
[2020-07-08 19:21] LABS: ERYTHROCYTE SEDIMENTATION RATE 39 mm/hr (0-30)
[2020-07-08] MEDS ORDERED: COMBIVENT RESPIMAT 100-20MCG INHALER 4GM INH PRN (20:00)
[2020-07-08] MEDS ORDERED: PILL CUTTER 1 EACH XX PRN (20:15)
[2020-07-08] MEDS: HumaLOG INSULIN (NovoLOG) PER UNIT SC SCH (20:55)
--- NOTE | 2020-07-08 21:05 | HPEPDOC ---
[facility] Medical History & Physical Date of Admission Jul 08, 2020 Date of Service: Jul 08, 2020 Other Provider PCP: Yadira Valdez Attending Physician: CARLOTA MENDIETA MD History and Physical CHIEF COMPLAINT: Weakness HISTORY OF PRESENT ILLNESS: Patient is a 64 year old female presenting with chief complaint of weakness and fatigue for the past 2 days. She relays a 1 week history of emesis 3x/day and loose bowel movements 3x/day as well, with resolution of these symptoms since this past Monday. Following this symptom resolution, she has felt generalized fatigue and has been incredibly sleep. She has also been unsteady on her feet and felt very weak in her lower extremities falling 4x in the past 24 hours with her most recent fall occurring this afternoon causing her to call EMS. On presentation she was hypotensive with blood glucose level of 30, and AIAD so the hospitalist service was called for admission. 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 Very occasional alcohol use. Denies illlicit drug use. Formerly employed at [employer]. FAMILY HISTORY: Family history of COPD ALLERGIES: Please see below. REVIEW OF SYSTEMS: CONSTITUTIONAL: Denies fevers, chills, night sweats, recent unexpected weight change HEENT: Denies headache, dizziness, vision changes, ears, nose, or throat pain CARDIOVASCULAR: Denies chest pain, palpitations, hx of ND RESPIRATORY: Denies wheezing, coughing, SOB, hemoptysis. GASTROINTESTINAL: Denies current nausea, vomiting, constipation, diarrhea, or abdominal pain. GENITOURINARY: Denies dysuria, hematuria, urinary urgency or incontinence. SKIN: Denies rashes or skin changes. MUSCULOSKELETAL: Admits to left sided hip pain. NEUROLOGICAL: Denies numbness/tingling in extremities, denies hx of strokes. PSYCHIATRIC: Denies SI, HI, AVH ENDOCRINE: hx of diabetes, hx of hypothyroidism. HEMATOLOGIC/LYMPHATIC: Denies hx of easy bruising and bleeding. HOME MEDICATIONS: Please see below. PHYSICAL EXAMINATION: VITAL SIGNS: See below GENERAL APPEARANCE: Pleasant appearing female laying comfortably in bed in no acute distress. HEENT: NC, AT, EOMI, no scleral icterus, EOMI. Dry mucous membranes, no pharyngeal erythema. CARDIOVASCULAR: RRR, normal S1 and S2. no murmurs, gallops, or rubs. LUNGS: CTAB with full breath sounds, no wheezes, crackles, or rhonchi. ABDOMEN: Obese, soft non-tender, non-distended. Unable to palpate liver edge or spleen secondary to body habitus. No masses or eccymosis appreciated. MUSCULOSKELETAL: Strength intact in bilateral UE and RLE, weakness/pain elicited on palpation of left hip and left leg with radiation to the left hip. Tenderness over lumbar spine and sacrum. No step offs or obvious deformities. EXTREMITIES: No LE swelling or edema. Mild bruising over left patella. NEUROLOGICAL: AOx3. CN III-XII intact. Sensation intact in bilateral UE and LE. Strength +5/5 in UE and RLE. PSYCHIATRIC: Normal mood and affect. LABORATORY DATA: See below. IMAGIN07/08/2020 CXR: IMPRESSION: 1. No acute cardiopulmonary abnormality. Minimal linear atelectasis or scar at the lung bases. 2. The appearance of mild cardiomegaly may be exaggerated by the lordotic projection. MICROBIOLOGY: Please see below. Assessment/Plan: #. Hypoglycemia - Likely 2/2 combination of poor PO intake and possibly too high dose of long acting insulin. - Monitoring for further hypoglycemic episodes with Q4H fingersticks. #. Hypotension -Likely 2/2 dehydration consistent with history of emesis, poor po intake, and physical exam findings. Blood pressure responsive to initial fluid bolus, will give additional scheduled fluids overnight. #. AIDA - Likely secondary to volume losses and poor po intake, will recheck creatinine in AM and hydrate overnight. #. Generalized weakness/recurrent falls - Left sided hip pain and weakness/pain on raising left leg concerning for fx. Ordering standing hip-XR. If fractured will consult ortho tomorrow. - Patient with history of diabetic neuropathy, but sensation intact on exam, will order PT/OT for assessment #. Elevated acute phase reactants -CRP elevated at 5.25 of unclear etiology #. Type 2 Diabetes - Sliding scale insulin only for the time being - Monitoring for further hypoglycemic episodes with Q4H fingersticks. - Consistent carb. diet #. CAMPBELL Cirrhosis - Ammonia level elevated, however patient not altered whatsoever on exam, no indication for lactulose - Holding propranolol given low BP #. Hx of hypertension -Hold anti-hypertensives given low BP on arrival #. Psoriatic Arthiritis -Continue sulfasalazine #. Hyperlipidemia -Continue statin #. Hx of gout - Continue allopurinol #. Hypothyroidism -Continue Synthroid #. GERD -Continue omeprazole #. Chronic back pain -Continue tizanidine DVT prophylaxis: heparin TID, teds/sequentials Vital Signs Vital Signs Date Time Temp Pulse Resp B/P (MAP) Pulse Ox O2 Delivery O2 Flow Rate FiO2 07/08/20 14:05 07/08/20 13:32 97.4 59 24 99 Room Air Laboratory Data Labs 24H Laboratory Tests 2 07/08/20 15:35: Immature Granulocyte % (Auto) 0.2, Neutrophils (%) (Auto) 63.8, Lymphocytes (%) (Auto) 17.1L, Monocytes (%) (Auto) 15.9H, Eosinophils (%) (Auto) 2.4, Basophils (%) (Auto) 0.6, Neutrophils # (Auto) 5.8, Lymphocytes # (Auto) 1.6, Monocytes # (Auto) 1.4H, Eosinophils # (Auto) 0.2, Basophils # (Auto) 0.1, Nucleated Red B lood Cells % (auto) 0.0, Erythrocyte Sedimentation Rate 39H, Blood Gas Puncture Site UNKNOWN, Blood Gas Bicarbonate Standard 28.0, Venous Blood pH 7.411, Venous Blood Partial Pressure CO2 47.0, Venous Blood Partial Pressure O2 96.1H, Venous Blood Total Carbon Dioxide 30.6H, Venous Blood HCO3 29.2H, Venous Blood Oxygen Saturation 97.2H, Venous Blood Base Excess 3.9H, Anion Gap 6L, Glomerular Filtra tion Rate 38.6L, Lactic Acid Level 1.1, Calcium Level 8.1L, Total Bilirubin 1.1H, Direct Bilirubin 0.6H, Aspartate Amino Transf (AST/SGOT) 41H, Alanine Aminotransferase (ALT/SGPT) 9L, Alkaline Phosphatase 180H, Ammonia 56H, C- Reactive Protein, Quantitative 5.25H, Total Protein 6.1L, Albumin 2.5L, Al bumin/Globulin Ratio 0.7L, Thyroid Stimulating Hormone (TSH) 1.770, Salicylates Level 4.3L, Acetaminophen Level < 2.0L, Ethyl Alcohol Level < 0.003 07/08/20 18:13: Urine Color YELLOW, Urine Appearance CLEAR, Urine pH 6.0, Urine Specific Glendo 1.003, Urine Protein NEGATIVE, Urine Glucose (UA) NEGATIVE, Urine Ketones NEGATIVE, Urine Blood NEGATIVE, Urine Nitrite NEGATIVE, Urine Bilirubin NEGATIVE, Urine Urobilinogen 0.2, Urine Leukocyte Esterase NEGATIVE, Urine WBC (Auto) 1, Urine RBC (Auto) 0, Urine Hyaline Casts (Auto) 0, Urine Bacteria (Auto) 1+H, Urine Squamous Epithelial Cells 1, Urine Sperm (Auto) , Urine Opiates Screen NEGATIVE, Urine Methadone Screen NEGATIVE, Urine Barbiturates Screen NEGATIVE, Urine Phencyclidine Screen NEGATIVE, Urine Amphetamines Screen NEGATIVE, Urine Benzodiazepines Screen NEGATIVE, Urine Cocaine Metabolite Screen NEGATIVE, Urine Cannabinoids Screen NEGATIVE CBC/BMP Laboratory Tests 07/08/20 15:35 Home Medications Scheduled Allopurinol (Allopurinol) 100 Mg Tab, 100 MG PO QHS Amlodipine Besylate (Amlodipine Besylate) 5 Mg Tablet, 5 MG PO QHS Apremilast (Otezla) 30 Mg Tablet, 30 MG PO BID Ascorbic Acid (Vitamin C) 500 Mg Tab, 1,000 MG PO DAILY Estradiol (Estrace) 0.1 Mg/Gm Cre, 0.1 MG VA 3XW TAKES ON MONDAY, MONDAY AND MONDAY NIGHT Gabapentin (Gabapentin) 300 Mg Cap, 300 MG PO BID Insulin Detemir (Levemir) 1 Units/0.01 Ml Susp, 60 UNITS SC BID Insulin Human Lispro (Novolog) 100 U/Ml Inj, 1 DOSE SC ACHS PER SLIDING SCALE Levothyroxine Sodium (Levothyroxine Sodium) 25 Mcg Tablet, 25 MCG PO DAILY Lisinopril (Lisinopril) 10 Mg Tablet, 10 MG PO DAILY Lovastatin (Lovastatin) 20 Mg Tab, 20 MG PO QHS Omeprazole (Omeprazole) 40 Mg Cap, 40 MG PO QHS Propranolol HCl (Propranolol HCl ER) 60 Mg Cap, 60 MG PO QHS Sulfasalazine (Sulfasalazine) 500 Mg Tablet, 1,000 MG PO BID Scheduled PRN Ipratropium/Albuterol Sulfate (Combivent Respimat 20-100 Mcg) 4 Gm Mist.inhal, 2 PUFF INH TID PRN for SOB/WHEEZING Tizanidine HCl (Tizanidine HCl) 2 Mg Tablet, 2 MG PO TIDP PRN for SPASMS Allergies Coded Allergies: No Known Drug Allergies (Verified Allergy, Unknown, 02/06/19) A-FIB/CHADSVASC A-FIB History Current/History of A-Fib/PAF?: Yes Current PO Anticoag Therapy: Yes GME ATTESTATION GME ATTESTATION My faculty preceptor for this patient encounter was physically present during t he encounter and was fully available. All aspects of the patient interview, examination, medical decision making process, and medical care plan development were reviewed and approved by the faculty preceptor. The faculty preceptor is aware and concurs with the plan as stated in the body of this note and will attest to such by his/her cosignature. ATTENDING NOTE I, Carlota Mendieta, have independently examined this patient and performed my own physical exam, as well as reviewed the documentation and edited where necessary. I have discussed in detail with the resident / student the findings and plan of treatment as documented by the resident / student and edited their note. I agree with their findings and treatment plan and have edited their documentation. I will continue to follow the patient during this hospital stay. JOHANA WALKER DO Jul 08, 2020 20:58 CARLOTA MENDIETA MD Jul 09, 2020 12:55
[2020-07-08] MEDS: SIMVASTATIN 20 MG TAB PO SCH (22:07)
[2020-07-08] MEDS: sulfaSALAzine 500 MG TABEC PO SCH (22:07)
[2020-07-08] MEDS: OMEPRAZOLE 20 MG CAP PO SCH (22:08)
[2020-07-08] MEDS: allopurinoL 100 MG TAB PO SCH (22:08)
[2020-07-08] MEDS: HEPARIN SOD (PORCINE) 5000UNITS/ML 1ML VIAL/SYRINGE SC SCH (22:09)
[2020-07-08] MEDS: tiZANidine 4 MG TAB PO PRN (22:17)
[2020-07-08] MEDS: ACETAMINOPHEN TAB 650MG DOSE (2X325MG) PO PRN (22:17)
[2020-07-09] MEDS: NS 1,000 ML IV SCH ×6 (01:10→23:49)
[2020-07-09] MEDS: LEVOTHYROXINE 25MCG TABLET (0.025MG) PO SCH (06:09)
[2020-07-09] MEDS: HEPARIN SOD (PORCINE) 5000UNITS/ML 1ML VIAL/SYRINGE SC SCH ×3 (06:09→21:04)
[2020-07-09] MEDS: ACETAMINOPHEN TAB 650MG DOSE (2X325MG) PO PRN ×3 (07:27→20:43)
[2020-07-09] MEDS: tiZANidine 4 MG TAB PO PRN ×2 (07:28→15:50)
[2020-07-09] MEDS: HumaLOG INSULIN (NovoLOG) PER UNIT SC SCH ×4 (08:15→20:49)
[2020-07-09 08:19] LABS: BASO % 0.6 % (0.0-1.0); EOS # 0.1 10^3/uL (0.0-0.5); EOS % 1.8 % (0.0-3.0); HEMATOCRIT 27.9 % (36.0-47.0); HEMOGLOBIN 9.2 g/dl (12.0-15.5); LYMPH % 20.3 % (24.0-44.0); MEAN CORPUSCULAR HEMOGLOBIN 27.9 pg (27.0-33.0); MEAN CORPUSCULAR VOLUME 84.5 fl (80.0-96.0); MONO # 0.6 10^3/uL (0.0-0.8); MONO % 12.6 % (0.0-5.0); NEUTROPHILS # 3.3 10^3/uL (1.5-8.5); NEUTROPHILS % 64.5 % (36.0-66.0); WHITE BLOOD COUNT 5.1 10^3/uL (4.0-10.0)
[2020-07-09 08:40] LABS: CALCIUM LEVEL 7.7 MG/DL (8.8-10.2); CREATININE FOR GFR 1.19 MG/DL (0.55-1.30); GLOMERULAR FILTRATION RATE 48.9 (>45); MAGNESIUM LEVEL 1.7 MG/DL (1.8-2.4); POTASSIUM SERUM 3.9 MEQ/L (3.5-5.1)
[2020-07-09 08:42] LABS: PLATELET COUNT, AUTOMATED 96 10^3/uL (150-450)
[2020-07-09] MEDS ORDERED: MAG SULF 1GM/100ML (MAG RUN) 1 GM in IV 1 EA IV ONE (09:45)
[2020-07-09] MEDS: LEVEMIR (INSULIN DETEMIR) 1 UNITS/0.01ML SC SCH ×2 (09:50→21:04)
[2020-07-09 10:00] VITALS: BP 104/54
--- NOTE | 2020-07-09 10:23 | REPVR ---
PROCEDURE INFORMATION: Exam: CT Head Without Contrast Exam date and time: 07/09/2020 10:05 AM Age: 64 years old Clinical indication: Pain; Dizziness; Headache TECHNIQUE: Imaging protocol: Computed tomography of the head without contrast. Radiation optimization: All CT scans at this facility use at least one of these dose optimization techniques: automated exposure control; mA and/or kV adjustment per patient size (includes targeted exams where dose is matched to clinical indication); or iterative reconstruction. COMPARISON: CT Head without contrast 12/11/2018 8:52 PM FINDINGS: Brain: Patchy lucencies in the white matter are nonspecific but most suggestive of chronic microvascular ischemic disease. These are fairly similar. There is no evidence for large acute cortical infarct. No intracranial hemorrhage or extraaxial collection is identified. There is no significant intracranial mass effect. Ventricles: The ventricles and sulci are stable in configuration. Bones/joints: Unremarkable. No acute fracture. Sinuses: Visualized sinuses are unremarkable. No fluid levels. Mastoid air cells: Visualized mastoid air cells are well aerated. Vasculature: Intracranial atherosclerotic vascular calcifications are again present. Soft tissues: Unremarkable. IMPRESSION: No CT evidence for acute intracranial abnormality or significant change since 12/11/18. Electronically signed by: Juan Samaniego On 07/09/2020 10:24:10 AM
[2020-07-09] MEDS: traMADol 50 MG TAB PO PRN ×2 (10:45→23:47)
[2020-07-09] MEDS: sulfaSALAzine 500 MG TABEC PO SCH ×2 (12:32→20:40)
--- NOTE | 2020-07-09 12:52 | IPNPDOC ---
Text Note Date of Service The patient was seen on 07/09/20. NOTE Subjective: Patient is a 64 year old female with a PMHx of 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 (Hx of Varices s/p banding + ligation), HTN, IDDM2, DLP, Hypothyroidism, Gout, Psoriatic arthritis, Chronic back pain and GERD who presweetened to the ED with weakness and fatigue for 2 days. Reproted that she had diarreha and vomiting for several days that has now resolved. She also reported falling multiple times while at home over the last few days. Patient was placed on observation under the hospitalist service for AIDA / Hypoglycemia. Patient was seen and examined at the bedside. Currently patient reports that her fatigue has improved. Denies any N/V, abdominal pain, C/D or CP, SOB or palpitations. Objective: Vitals (See below) General: Lying in bed, appears comfortable, AAOx3 HEENT: NC, AT CVS: +S1S2 Lungs: Fair air entry b/l, no wheezing / rhonchi / rales Abdomen: Soft, ND, NT Extremities: - Edema, - Calf tenderness Assessment and plan: Hypoglycemia - possibly 2/2 combination of poor PO intake and possibly too high dose of long acting insulin - Hx of IDDM2; on high dose long acting insulin outpatient - Glucose levels have improved - c/w PO intake (Consistent carbohydrate diet) and ISS - Will reintroduce Long acting insulin (Levemir) at lower dose Hypotension - likely 2/2 hypovolemia 2/2 Nausea + Vomiting and Diarrhea - Hx of HTN as outpatient - BP medications on hold (Amlodipine, Lisinopril and Propranolol) - c/w IV fluid hydration AIDA - likely 2/2 pre-renal etiology - Cr baseline of 0.8; Cr on admission o 1.4 - Improving with IV fluids - c/w IV fluid hydration Generalized weakness/recurrent falls - Patient has reported some left sided hip pain - CT head 07/09: No CT evidence for acute intracranial abnormality or significant change since 12/11/18. - XR hip 07/08: without any evidence of acute fractures - c/w PT Cirrhosis - likely 2/2 CAMPBELL - AAOx3 - Ammonia level elevated - likely 2/2 dehydration - Holding propranolol given low BP Psoriatic Arthritis - c/w sulfasalazine DLP - c/w Simvastatin Gout - c/w allopurinol Hypothyroidism - c/w Levothyroxine Chronic back pain - c/w tizanidine GERD - c/w Omeprazole DVT prophylaxis - c/w Heparin Disposition: - Discharge home within 24 hours Segun MORGAN, I+O Segun MORGAN I+O Laboratory Tests 07/08/20 15:35 07/09/20 07:44 Vital Signs Date Time Temp Pulse Resp B/P (MAP) Pulse Ox O2 Delivery O2 Flow Rate FiO2 07/09/20 11:30 16 Room Air 07/09/20 10:00 98.2 66 104/54 (25) 98 I&O- Last 24 Hours up to 6 AM 07/09/20 06:00 Intake Total 2000 ml Balance 2000 ml JUANA NERI MD Jul 09, 2020 12:52
[2020-07-09 14:00] VITALS: BP 106/56
[2020-07-09] MEDS: allopurinoL 100 MG TAB PO SCH (20:40)
[2020-07-09] MEDS: OMEPRAZOLE 20 MG CAP PO SCH (20:40)
[2020-07-09] MEDS: SIMVASTATIN 20 MG TAB PO SCH (20:40)
[2020-07-09 22:00] VITALS: BP 124/68
[2020-07-10] VITALS (7 sets, daily range): BP systolic 98–162; BP diastolic 57–72
[2020-07-10] MEDS: LEVOTHYROXINE 25MCG TABLET (0.025MG) PO SCH (06:00)
[2020-07-10] MEDS: NS 1,000 ML IV SCH ×2 (06:00→12:09)
[2020-07-10] MEDS: HEPARIN SOD (PORCINE) 5000UNITS/ML 1ML VIAL/SYRINGE SC SCH ×3 (06:01→21:41)
[2020-07-10] MEDS: ACETAMINOPHEN TAB 650MG DOSE (2X325MG) PO PRN ×2 (06:01→18:43)
[2020-07-10 07:27] LABS: BASO # 0.1 10^3/uL (0.0-0.2); BASO % 1.1 % (0.0-1.0); EOS # 0.1 10^3/uL (0.0-0.5); EOS % 3.2 % (0.0-3.0); HEMATOCRIT 32.1 % (36.0-47.0); LYMPH # 1.2 10^3/uL (1.5-5.0); MEAN CORPUSCULAR HGB CONC 31.2 g/dl (32.0-36.5); MEAN CORPUSCULAR VOLUME 86.5 fl (80.0-96.0); MONO # 0.6 10^3/uL (0.0-0.8); MONO % 12.4 % (0.0-5.0); NEUTROPHILS # 2.5 10^3/uL (1.5-8.5); NEUTROPHILS % 57.1 % (36.0-66.0); PLATELET COUNT, AUTOMATED 112 10^3/uL (150-450); RED BLOOD COUNT 3.71 10^6/uL (4.00-5.40); WHITE BLOOD COUNT 4.4 10^3/uL (4.0-10.0)
[2020-07-10] MEDS: HumaLOG INSULIN (NovoLOG) PER UNIT SC SCH ×4 (07:30→21:00)
[2020-07-10 07:49] LABS: BLOOD UREA NITROGEN 23 MG/DL (7-18); CALCIUM LEVEL 8.3 MG/DL (8.8-10.2); CARBON DIOXIDE LEVEL 27 MEQ/L (21-32); CHLORIDE LEVEL 109 MEQ/L (98-107); CREATININE FOR GFR 0.87 MG/DL (0.55-1.30); GLOMERULAR FILTRATION RATE > 60.0 (>45); GLUCOSE, FASTING 106 MG/DL (70-100); MAGNESIUM LEVEL 1.6 MG/DL (1.8-2.4); POTASSIUM SERUM 3.7 MEQ/L (3.5-5.1); SODIUM LEVEL 142 MEQ/L (136-145)
[2020-07-10] MEDS: tiZANidine 4 MG TAB PO PRN (08:10)
[2020-07-10] MEDS: GABAPENTIN 300 MG CAP PO SCH ×2 (08:10→21:40)
[2020-07-10] MEDS: sulfaSALAzine 500 MG TABEC PO SCH ×2 (08:10→21:57)
[2020-07-10] MEDS: lisinopriL 10 MG TAB PO SCH (08:10)
[2020-07-10] MEDS ORDERED: MAG SULF 1GM/100ML (MAG RUN) 1 GM in IV 1 EA IV ONE ×2 (12:00→19:45)
[2020-07-10] MEDS: traMADol 50 MG TAB PO PRN (12:08)
--- NOTE | 2020-07-10 17:33 | IPNPDOC ---
Text Note Date of Service The patient was seen on 07/10/20. NOTE Subjective: Patient is a 64 year old female with a PMHx of 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 (Hx of Varices s/p banding + ligation), HTN, IDDM2, DLP, Hypothyroidism, Gout, Psoriatic arthritis, Chronic back pain and GERD who presweetened to the ED with weakness and fatigue for 2 days. Reproted that she had diarreha and vomiting for several days that has now resolved. She also reported falling multiple times while at home over the last few days. Patient was placed on observation under the hospitalist service for AIDA / Hypoglycemia. Patient was seen and examined at the bedside. Currently patient reports that her fatigue has improved. Denies any N/V, abdominal pain, C/D or CP, SOB or palpitations. Objective: Vitals (See below) General: Lying in bed, appears comfortable, AAOx3 HEENT: NC, AT CVS: +S1S2 Lungs: Fair air entry b/l, no wheezing / rhonchi / rales Abdomen: Soft, ND, NT Extremities: - Edema, - Calf tenderness Assessment and plan: Hypoglycemia - possibly 2/2 combination of poor PO intake and possibly too high dose of long acting insulin - Hx of IDDM2; on high dose long acting insulin outpatient - Glucose levels had initially improved; however had an episode of hypoglycemia this morning - c/w PO intake (Consistent carbohydrate diet) and ISS - Will again DC Levemir Hypotension - likely 2/2 hypovolemia 2/2 Nausea + Vomiting and Diarrhea - Hx of HTN as outpatient - Will resume Lisinopril; continue to hold Amlodipine / Propranolol - c/w IV fluid hydration Hypothermia - likely 2/2 hypoglycemia - Improved with warming blankets Lactic acidosis - possibly 2/2 infection - CXR with atelectasis - UA negative - Blood cultures / PCT pending - Holding off antibiotics at this time AIDA - likely 2/2 pre-renal etiology - Cr baseline of 0.8; Cr on admission o 1.4 - Improving with IV fluids - c/w IV fluid hydration Generalized weakness/recurrent falls - Patient has reported some left sided hip pain - CT head 07/09: No CT evidence for acute intracranial abnormality or significant change since 12/11/18. - XR hip 07/08: without any evidence of acute fractures - c/w PT Cirrhosis - likely 2/2 CAMPBELL - AAOx3 - Ammonia level elevated - likely 2/2 dehydration - Holding propranolol given low BP Psoriatic Arthritis - c/w sulfasalazine DLP - c/w Simvastatin Gout - c/w Allopurinol Hypothyroidism - c/w Levothyroxine Chronic back pain - c/w tizanidine GERD - c/w Omeprazole DVT prophylaxis - c/w Heparin Disposition: - c/w PT and OT VS,Fishbone, I+O VS, Fishbone, I+O Laboratory Tests 07/10/20 06:56 Vital Signs Date Time Temp Pulse Resp B/P (MAP) Pulse Ox O2 Delivery O2 Flow Rate FiO2 07/10/20 14:00 97.7 71 16 118/64 (82) 96 Room Air I&O- Last 24 Hours up to 6 AM 07/10/20 06:00 Intake Total 3810 ml Output Total 3050 ml Balance 760 ml JUANA NERI MD Jul 10, 2020 17:32
[2020-07-10] MEDS ORDERED: ATORVASTATIN 20 MG TAB PO ONE (18:30)
[2020-07-10] MEDS ORDERED: NITROGLYCERIN 0.3 MG SUBL TAB SL PRN (18:30)
[2020-07-10] MEDS ORDERED: ASPIRIN 325 MG TAB PO ONE (18:30)
[2020-07-10] MEDS ORDERED: ONDANSETRON 4MG/2ML VIAL IV PRN (18:45)
[2020-07-10 19:19] LABS: BLOOD UREA NITROGEN 19 MG/DL (7-18); C REACTIVE PROTEIN QUANTITATIV 4.94 MG/DL (0.00-0.30); CALCIUM LEVEL 7.9 MG/DL (8.8-10.2); CARBON DIOXIDE LEVEL 26 MEQ/L (21-32); CHLORIDE LEVEL 111 MEQ/L (98-107); CREATININE FOR GFR 0.78 MG/DL (0.55-1.30); FREE T4 1.86 NG/DL (0.76-1.46); GLOMERULAR FILTRATION RATE > 60.0 (>45); GLUCOSE, FASTING 116 MG/DL (70-100); HEMATOCRIT 29.9 % (36.0-47.0); HEMOGLOBIN 9.5 g/dl (12.0-15.5); MAGNESIUM LEVEL 1.7 MG/DL (1.8-2.4); MEAN CORPUSCULAR HEMOGLOBIN 27.2 pg (27.0-33.0); MEAN CORPUSCULAR HGB CONC 31.8 g/dl (32.0-36.5); MEAN CORPUSCULAR VOLUME 85.7 fl (80.0-96.0); NT-PRO BNP 490 PG/ML (<125); PLATELET COUNT, AUTOMATED 123 10^3/uL (150-450); POTASSIUM SERUM 4.2 MEQ/L (3.5-5.1); RED BLOOD COUNT 3.49 10^6/uL (4.00-5.40); SODIUM LEVEL 143 MEQ/L (136-145); WHITE BLOOD COUNT 4.6 10^3/uL (4.0-10.0)
[2020-07-10 19:20] LABS: CORTISOL BASELINE 7.5 UG/DL (4.3-22.4); TOTAL T3 82.5 NG/DL (60.0-181.0)
[2020-07-10 19:39] LABS: CK-MB VALUE MASS 2.6 NG/ML (<3.6); CPK CREATINE PHOSPHOKINASE 97 U/L (26-192); MB/CK RELATIVE INDEX 2.68 (< OR =4); TROPONIN I < 0.02 NG/ML (< 0.10)
[2020-07-10] MEDS ORDERED: amLODIPine 5 MG TAB PO SCH (21:00)
[2020-07-10] MEDS: OMEPRAZOLE 20 MG CAP PO SCH (21:40)
[2020-07-10] MEDS: allopurinoL 100 MG TAB PO SCH (21:40)
[2020-07-11] VITALS (14 sets, daily range): BP systolic 150–198; BP diastolic 60–84
[2020-07-11 01:01] LABS: CK-MB VALUE MASS 2.2 NG/ML (<3.6); CPK CREATINE PHOSPHOKINASE 84 U/L (26-192); MB/CK RELATIVE INDEX 2.62 (< OR =4); TROPONIN I < 0.02 NG/ML (< 0.10)
[2020-07-11] MEDS: LEVOTHYROXINE 25MCG TABLET (0.025MG) PO SCH (05:07)
[2020-07-11] MEDS: HEPARIN SOD (PORCINE) 5000UNITS/ML 1ML VIAL/SYRINGE SC SCH ×2 (05:07→14:00)
[2020-07-11 05:48] LABS: BASO # 0.1 10^3/uL (0.0-0.2); BASO % 1.1 % (0.0-1.0); EOS # 0.2 10^3/uL (0.0-0.5); EOS % 3.9 % (0.0-3.0); HEMATOCRIT 31.1 % (36.0-47.0); HEMOGLOBIN 9.9 g/dl (12.0-15.5); LYMPH # 1.8 10^3/uL (1.5-5.0); LYMPH % 30.8 % (24.0-44.0); MEAN CORPUSCULAR HEMOGLOBIN 27.7 pg (27.0-33.0); MEAN CORPUSCULAR HGB CONC 31.8 g/dl (32.0-36.5); MEAN CORPUSCULAR VOLUME 86.9 fl (80.0-96.0); MONO # 0.6 10^3/uL (0.0-0.8); MONO % 11.2 % (0.0-5.0); NEUTROPHILS % 52.6 % (36.0-66.0); PLATELET COUNT, AUTOMATED 139 10^3/uL (150-450); RED BLOOD COUNT 3.58 10^6/uL (4.00-5.40); WHITE BLOOD COUNT 5.7 10^3/uL (4.0-10.0)
[2020-07-11 06:13] LABS: BLOOD UREA NITROGEN 15 MG/DL (7-18); CALCIUM LEVEL 8.8 MG/DL (8.8-10.2); CARBON DIOXIDE LEVEL 26 MEQ/L (21-32); CHLORIDE LEVEL 109 MEQ/L (98-107); CREATININE FOR GFR 0.81 MG/DL (0.55-1.30); GLOMERULAR FILTRATION RATE > 60.0 (>45); GLUCOSE, FASTING 144 MG/DL (70-100); MAGNESIUM LEVEL 1.8 MG/DL (1.8-2.4); POTASSIUM SERUM 4.1 MEQ/L (3.5-5.1); SODIUM LEVEL 141 MEQ/L (136-145)
[2020-07-11] MEDS: GABAPENTIN 300 MG CAP PO SCH (08:46)
[2020-07-11] MEDS: sulfaSALAzine 500 MG TABEC PO SCH (08:46)
[2020-07-11] MEDS: lisinopriL 10 MG TAB PO SCH (08:48)
[2020-07-11] MEDS: HumaLOG INSULIN (NovoLOG) PER UNIT SC SCH ×2 (08:49→12:56)
[2020-07-11] MEDS ORDERED: ASPIRIN 325 MG TAB PO SCH (09:00)
[2020-07-11] MEDS ORDERED: ATORVASTATIN 20 MG TAB PO SCH (09:00)
--- NOTE | 2020-07-11 10:40 | DS.PDOC ---
Discharge Summary General Date of Admission Jul 10, 2020 at 17:26 Date of Discharge 07/11/2020 Discharge Summary PROCEDURES PERFORMED DURING STAY: [None]. ADMITTING DIAGNOSES / DISCHARGE DIAGNOSES: s/p Hypoglycemia - possibly 2/2 combination of poor PO intake and possibly too high dose of long acting insulin s/p Hypotension - likely 2/2 hypovolemia 2/2 Nausea + Vomiting and Diarrhea s/p Hypothermia - likely 2/2 hypoglycemia s/p Lactic acidosis - unlikely 2/2 infection s/p AIDA - likely 2/2 pre-renal etiology Generalized weakness/recurrent falls Cirrhosis - likely 2/2 CAMPBELL Psoriatic Arthritis DLP Gout Hypothyroidism Chronic back pain GERD DVT prophylaxis COMPLICATIONS/CHIEF COMPLAINT: Acute Kidney Injury / Hypoglycemia HISTORY OF PRESENT ILLNESS: Patient is a 64 year old female with a PMHx of 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 (Hx of Varices s/p banding + ligation), HTN, IDDM2, DLP, Hypothyroidism, Gout, Psoriatic arthritis, Chronic back pain and GERD who presweetened to the ED with weakness and fatigue for 2 days. Reported that she had diarrhea and vomiting for several days that has now resolved. She also reported falling multiple times while at home over the last few days. Patient was placed on observation under the hospitalist service for AIDA / Hypoglycemia. HOSPITAL COURSE: s/p Hypoglycemia - possibly 2/2 combination of poor PO intake and possibly too high dose of long acting insulin - Hx of IDDM2; on high dose long acting insulin outpatient - Glucose levels had initially improved; however had an episode of hypoglycemia this morning - c/w PO intake (Consistent carbohydrate diet) and ISS - Will DC long acting insulin on discharge; continue with sliding scale alone on discharge - Advised follow up with Primary care provider within 7 days s/p Hypotension - likely 2/2 hypovolemia 2/2 Nausea + Vomiting and Diarrhea - Hx of HTN as outpatient - c/w Lisinopril; Will resume Amlodipine and Propranolol on discharge - c/w IV fluid hydration s/p Hypothermia - likely 2/2 hypoglycemia - Improved with warming blankets s/p Lactic acidosis - unlikely 2/2 infection - CXR with atelectasis - UA negative - Blood cultures no growth - Holding off antibiotics s/p AIDA - likely 2/2 pre-renal etiology - Cr baseline of 0.8; Cr on admission o 1.4 - Resolved with IV fluids - s/p IV fluid hydration s/p Chest pain - EKG reviewed - Troponin x 2 negative - Will have outpatient follow up with Cardiology Generalized weakness/recurrent falls - Patient has reported some left sided hip pain - CT head 07/09: No CT evidence for acute intracranial abnormality or significant change since 12/11/18. - XR hip 07/08: without any evidence of acute fractures - c/w Tramadol PRN for pain - c/w PT; has cleared for DC home Cirrhosis - likely 2/2 CAMPBELL - AAOx3 - Ammonia level elevated - likely 2/2 dehydration - Will resume Propranolol on discharge Psoriatic Arthritis - c/w Sulfasalazine DLP - c/w Simvastatin Gout - c/w Allopurinol Hypothyroidism - c/w Levothyroxine Chronic back pain - c/w tizanidine GERD - c/w Omeprazole DVT prophylaxis - c/w Heparin DISCHARGE MEDICATIONS: Please see below. ALLERGIES: Please see below. PHYSICAL EXAMINATION ON DISCHARGE: Vitals (See below) General: Lying in bed, appears comfortable, AAOx3 HEENT: NC, AT CVS: +S1S2 Lungs: Fair air entry b/l, no wheezing / rhonchi / rales Abdomen: Soft, non-distended, non-tender Extremities: No evidence of edema, - Calf tenderness LABORATORY DATA: Please see below. ACTIVITY: [As tolerated]. DISCHARGE PLAN: - Follow up with Primary care provider and Cardiology within 7 days - Please call to confirm / schedule appointment. - Please comply with treatment plan and medications and return to the ER if you experience any problems. DISPOSITION: . Home DISCHARGE CONDITION: [Stable]. TIME SPENT ON DISCHARGE: 35 minutes. Vital Signs/I&Os Vital Signs Date Time Temp Pulse Resp B/P (MAP) Pulse Ox O2 Delivery O2 Flow Rate FiO2 07/11/20 08:48 182/84 07/11/20 08:00 98.2 101 18 96 Room Air I&O- Last 24 Hours up to 6 AM 07/11/20 06:00 Intake Total 1250 ml Output Total 1975 ml Balance -725 ml Laboratory Data Labs 24H Laboratory Tests 2 07/10/20 11:56: Lactic Acid Level 2.8*H 07/10/20 17:37: Lactic Acid Followup at 4 Hours 1.2 07/10/20 18:33: Nucleated Red Blood Cells % (auto) 0.0, Anion Gap 6L, Glomerular Filtration Rate > 60.0, Calcium Level 7.9L, Magnesium Level 1.7L, Total Creatine Kinase 97, Creatine Kinase MB 2.6, Creatine Kinase MB Relative Index 2.68, Troponin I < 0.02, C-Reactive Protein, Quantitative 4.94H, SD-Sow-T-Type Natriuretic Peptide 490H, Thyroid Stimulating Hormone (TSH) 2.180, Free Thyroxine 1.86H, Total Triiodothyronine 82.5, Cortisol Baseline 7.5 07/11/20 00:20: Total Creatine Kinase 84, Creatine Kinase MB 2.2, Creatine Kinase MB Relative Index 2.62, Troponin I < 0.02 07/11/20 05:26: Immature Granulocyte % (Auto) 0.4, Neutrophils (%) (Auto) 52.6, Lymphocytes (%) (Auto) 30.8, Monocytes (%) (Auto) 11.2H, Eosinophils (%) (Auto) 3.9H, Basophils (%) (Auto) 1.1H, Neutrophils # (Auto) 3.0, Lymphocytes # (Auto) 1.8, Monocytes # (Auto) 0.6, Eosinophils # (Auto) 0.2, Basophils # (Auto) 0.1, Nucleated Red Blood Cells % (auto) 0.0, Anion Gap 6L, Glomerular Filtration Rate > 60.0, Calcium Level 8.8, Magnesium Level 1.8 CBC/BMP Laboratory Tests 07/10/20 18:33 07/11/20 05:26 Microbiology Microbiology 07/10/20 Blood Culture, Received Pending 07/10/20 Blood Culture - Preliminary, Resulted No growth after 24 hours . All specim... Discharge Medications Scheduled Allopurinol (Allopurinol) 100 Mg Tab, 100 MG PO QHS, (Reported) Amlodipine Besylate (Amlodipine Besylate) 5 Mg Tablet, 5 MG PO QHS, (Reported) Apremilast (Otezla) 30 Mg Tablet, 30 MG PO BID, (Reported) Ascorbic Acid (Vitamin C) 500 Mg Tab, 1,000 MG PO DAILY, (Reported) Estradiol (Estrace) 0.1 Mg/Gm Cre, 0.1 MG VA 3XW, (Reported) TAKES ON MONDAY, MONDAY AND MONDAY NIGHT Gabapentin (Gabapentin) 300 Mg Cap, 300 MG PO BID, (Reported) Insulin Human Lispro (Novolog) 100 U/Ml Inj, 1 DOSE SC ACHS, (Reported) PER SLIDING SCALE Levothyroxine Sodium (Levothyroxine Sodium) 25 Mcg Tablet, 25 MCG PO DAILY, (Reported) Lisinopril (Lisinopril) 10 Mg Tablet, 10 MG PO DAILY, (Reported) Lovastatin (Lovastatin) 20 Mg Tab, 20 MG PO QHS, (Reported) Omeprazole (Omeprazole) 40 Mg Cap, 40 MG PO QHS, (Reported) Propranolol HCl (Propranolol HCl ER) 60 Mg Cap, 60 MG PO QHS, (Reported) Sulfasalazine (Sulfasalazine) 500 Mg Tablet, 1,000 MG PO BID, (Reported) Scheduled PRN Ipratropium/Albuterol Sulfate (Combivent Respimat 20-100 Mcg) 4 Gm Mist.inhal, 2 PUFF INH TID PRN for SOB/WHEEZING, (Reported) Tizanidine HCl (Tizanidine HCl) 2 Mg Tablet, 2 MG PO TIDP PRN for SPASMS, (Reported) Allergies Coded Allergies: No Known Drug Allergies (Verified Allergy, Unknown, 02/06/19) JUANA NERI MD Jul 11, 2020 10:40
[2020-07-11] MEDS ORDERED: amLODIPine 5 MG TAB PO ONE (11:15)
[2020-07-11] MEDS ORDERED: PROPRANOLOL 20 MG TAB PO ONE (13:00)
--- NOTE | 2020-07-15 18:26 | REP ---
PELVIS BILATERAL HIP RADIOGRAPHIC SERIES: 5-VIEWS HISTORY: Left hip pain. COMPARISON STUDY: 05/01/2018. FINDINGS: AP view of the pelvis shows an intact bony pelvic ring. No pelvic or sacral fracture is appreciated. Femoral heights are smooth and rounded and hip joint spaces are preserved bilaterally. No hip fracture is appreciated on either side. Periarticular soft tissues are unremarkable. IMPRESSION: Negative AP pelvis and bilateral hip study. No fracture seen. MTDD
--- NOTE | 2020-07-28 14:11 | ECGEPIP ---
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
--- NOTE | 2020-07-31 14:38 | ECGEPIP ---
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
== END 2020-07-11 17:03 | disposition home or self-care (01) | DRG 638 ==
LOC: M ED 13:31 → M ED INP 13:32 → ENRESERV 07-09 07:27 → M MSPAV 07-09 09:15 → OBSVTOIN 07-10 17:26 → M PCU 07-10 20:45
PROVIDERS: ADMIT Internal Medicine; ATTEND Internal Medicine
DX: E11.649 Type 2 diabetes mellitus with hypoglycemia without coma (principal); E87.2 Acidosis; K75.81 Nonalcoholic steatohepatitis (NASH); L40.50 Arthropathic psoriasis, unspecified; E78.5 Hyperlipidemia, unspecified; I10 Essential (primary) hypertension; E03.9 Hypothyroidism, unspecified; R53.1 Weakness; K74.69 Other cirrhosis of liver; R29.6 Repeated falls; N17.9 Acute kidney failure, unspecified; K21.9 Gastro-esophageal reflux disease without esophagitis; R68.0 Hypothermia, not associated with low environmental temperature; I95.9 Hypotension, unspecified; M54.9 Dorsalgia, unspecified; E11.40 Type 2 diabetes mellitus with diabetic neuropathy, unspecified; T38.3X5A Adverse effect of insulin and oral hypoglycemic [antidiabetic] drugs, initial encounter; Z90.49 Acquired absence of other specified parts of digestive tract; Z87.891 Personal history of nicotine dependence; Z79.4 Long term (current) use of insulin; Z79.899 Other long term (current) drug therapy

== ENCOUNTER 2020-07-26 13:50 | Emergency (ER) | payer OTHER ==
[~2020-07-26] VITALS: Ht 162.6 cm; Wt 100.0 kg
[~2020-07-26 13:50] MED LIST changes: +AMLO1TAB24 PO; +COMBAER6 INH; +LEVO25TA5 PO; +OTEZ1TAB3 PO; +SULF1TAB30 PO; +TIZA2TA PO
[2020-07-26] MEDS ORDERED: NORCO, ANEXSIA 5/325MG TABLET (HYDROcodone/ACETAMINOPHEN) PO ONE (14:15)
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
--- NOTE | 2020-07-26 15:19 | REPVR ---
PROCEDURE INFORMATION: Exam: XR Left Knee Exam date and time: 07/26/2020 2:32 PM Age: 65 years old Clinical indication: Pain; Knee; Left; Additional info: Trauma TECHNIQUE: Imaging protocol: XR Left knee. Views: 4 or more views. COMPARISON: CT-Knee WITHOUT CONTRAST 04/13/2020 7:39 AM FINDINGS: Bones/joints: Generalized decrease in bone density Narrowing of the medial compartment of the knee joint. Tiny marginal osteophytes noted medially. There is chondrocalcinosis. Marginal osteophytes border the patellofemoral joint which is narrowed. The patella maintains a normal relationship to the femur. Possible effusion in suprapatellar bursa. No fracture Soft tissues: Normal. IMPRESSION: 1. No acute findings. 2. Chondrocalcinosis with osteoarthritis involving all 3 compartments of the knee joint. 3. Possible effusion in suprapatellar bursa Electronically signed by: Danya Lechuga On 07/26/2020 15:18:59 PM
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
[2020-07-26] MEDS ORDERED: NORC1TAB7 PO (15:57)
[2020-07-26 16:21] VITALS: BP 132/63
== END 2020-07-26 16:23 | disposition home or self-care (01) ==
LOC: M ED 13:50
DX: S20.212A Contusion of left front wall of thorax, initial encounter (principal); S83.92XA Sprain of unspecified site of left knee, initial encounter; W01.10XA Fall on same level from slipping, tripping and stumbling with subsequent striking against unspecified object, initial encounter; Y92.019 Unspecified place in single-family (private) house as the place of occurrence of the external cause; Y99.9 Unspecified external cause status; E11.649 Type 2 diabetes mellitus with hypoglycemia without coma; M11.262 Other chondrocalcinosis, left knee

== ENCOUNTER → 2020-07-30 | Outpatient (CLI) | payer OTHER ==
[~2020-07-30] MED LIST changes: +ALDA25TA2 PO; +AMOX875T PO; +CELE100C PO; +DOXY100T PO; +FERR32TA PO; +HYDR-3713 PO; +KLOR10TA76 PO; +LACT20EL PO; +LEVO500T3 PO; +MAG400TA PO; +PANT40TA29 PO; +TORS100T PO; +TRAM37.53 PO; +VENTAER INH
[2020-07-30 11:32] LABS: BASO # 0.1 10^3/uL (0.0-0.2); BASO % 1.1 % (0.0-1.0); EOS # 0.1 10^3/uL (0.0-0.5); EOS % 1.5 % (0.0-3.0); HEMOGLOBIN 9.4 g/dl (12.0-15.5); LYMPH # 1.6 10^3/uL (1.5-5.0); LYMPH % 34.7 % (24.0-44.0); MEAN CORPUSCULAR HEMOGLOBIN 27.6 pg (27.0-33.0); MEAN CORPUSCULAR HGB CONC 31.3 g/dl (32.0-36.5); MEAN CORPUSCULAR VOLUME 88.2 fl (80.0-96.0); MONO # 0.9 10^3/uL (0.0-0.8); MONO % 19.6 % (0.0-5.0); NEUTROPHILS % 42.7 % (36.0-66.0); PLATELET COUNT, AUTOMATED 193 10^3/uL (150-450); WHITE BLOOD COUNT 4.6 10^3/uL (4.0-10.0)
[2020-07-30 12:35] LABS: ALBUMIN 2.6 GM/DL (3.2-5.2); BILIRUBIN,TOTAL 0.6 MG/DL (0.2-1.0); CALCIUM LEVEL 8.3 MG/DL (8.8-10.2); CHOLESTEROL RISK RATIO 2.468 (<5); CREATININE FOR GFR 1.44 MG/DL (0.55-1.30); GLOMERULAR FILTRATION RATE 39.1 (>45); MAGNESIUM LEVEL 1.2 MG/DL (1.8-2.4); POTASSIUM SERUM 3.8 MEQ/L (3.5-5.1); TOTAL PROTEIN 6.2 GM/DL (6.4-8.2)
[2020-07-30 13:10] LABS: HEMOGLOBIN A1c 7.5 %
== END ==
LOC: M LAB 10:26
PROVIDERS: ATTEND Nurse Practitioner Adult Health
DX: I85.00 Esophageal varices without bleeding (principal); K74.60 Unspecified cirrhosis of liver; E11.65 Type 2 diabetes mellitus with hyperglycemia; E78.00 Pure hypercholesterolemia, unspecified; E03.9 Hypothyroidism, unspecified; E83.42 Hypomagnesemia; Z79.899 Other long term (current) drug therapy

== ENCOUNTER 2020-08-01 17:58 | Inpatient (IN) | payer OTHER, MEDICARE ==
[~2020-08-01] VITALS: Ht 162.6 cm; Wt 106.3 kg
[~2020-08-01 17:58] MED LIST changes: -ALDA25TA2 PO; -AMOX875T PO; -CELE100C PO; -DOXY100T PO; -FERR32TA PO; -HYDR-3713 PO; -KLOR10TA76 PO; -LACT20EL PO; -LEVO500T3 PO; -MAG400TA PO; -PANT40TA29 PO; -TORS100T PO; -TRAM37.53 PO; -VENTAER INH
[2020-08-01 18:31] LABS: BASO # 0.1 10^3/uL (0.0-0.2); BASO % 0.7 % (0.0-1.0); EOS # 0.2 10^3/uL (0.0-0.5); EOS % 2.1 % (0.0-3.0); HEMATOCRIT 31.4 % (36.0-47.0); HEMOGLOBIN 9.8 g/dl (12.0-15.5); LYMPH # 1.7 10^3/uL (1.5-5.0); LYMPH % 22.8 % (24.0-44.0); MEAN CORPUSCULAR HEMOGLOBIN 27.3 pg (27.0-33.0); MEAN CORPUSCULAR HGB CONC 31.2 g/dl (32.0-36.5); MEAN CORPUSCULAR VOLUME 87.5 fl (80.0-96.0); MONO # 1.2 10^3/uL (0.0-0.8); MONO % 15.3 % (0.0-5.0); NEUTROPHILS # 4.4 10^3/uL (1.5-8.5); NEUTROPHILS % 58.2 % (36.0-66.0); PLATELET COUNT, AUTOMATED 204 10^3/uL (150-450); RED BLOOD COUNT 3.59 10^6/uL (4.00-5.40); WHITE BLOOD COUNT 7.6 10^3/uL (4.0-10.0)
[2020-08-01] MEDS: MORPHINE 4 MG/ML 1ML VIAL/SYRINGE (J2270) IV PRN ×2 (18:31→19:56)
[2020-08-01] MEDS ORDERED: ISOVUE-370 76% 100ML VIAL As Ordered ONE (18:34)
[2020-08-01 18:45] LABS: INR 1.34; PROTHROMBIN TIME 16.9 SECONDS (12.5-14.3)
[2020-08-01 18:46] LABS: PARTIAL THROMBOPLASTIN TIME 32.2 SECONDS (24.2-38.5)
--- NOTE | 2020-08-01 19:01 | REPVR ---
PROCEDURE INFORMATION: Exam: XR Left Hand Exam date and time: 08/01/2020 6:28 PM Age: 65 years old Clinical indication: Other: Left thumb only; Additional info: Left thumb pain, trauma TECHNIQUE: Imaging protocol: XR Left hand. Views: 3 or more views. COMPARISON: No relevant prior studies available. FINDINGS: Bones/joints: Degenerative changes in the interphalangeal joints. Degenerative changes in the triscaphe joint and radiocarpal joint. Visualization partially imaged by the presence of a ring on the 4th finger and a pulse oximeter. Soft tissues: Normal. IMPRESSION: No acute findings. Electronically signed by: Mert Cho On 08/01/2020 19:01:36 PM
[2020-08-01 19:15] LABS: ALBUMIN 2.8 GM/DL (3.2-5.2); ALT/SGPT 11 U/L (12-78); BILIRUBIN,DIRECT 0.4 MG/DL (0.0-0.2); BILIRUBIN,TOTAL 0.8 MG/DL (0.2-1.0); BLOOD UREA NITROGEN 14 MG/DL (7-18); CALCIUM LEVEL 8.4 MG/DL (8.8-10.2); CARBON DIOXIDE LEVEL 29 MEQ/L (21-32); CHLORIDE LEVEL 103 MEQ/L (98-107); CK-MB VALUE MASS 4.7 NG/ML (<3.6); CPK CREATINE PHOSPHOKINASE 205 U/L (26-192); CREATININE FOR GFR 0.99 MG/DL (0.55-1.30); GLOMERULAR FILTRATION RATE > 60.0 (>45); GLUCOSE, FASTING 182 MG/DL (70-100); MB/CK RELATIVE INDEX 2.29 (< OR =4); POTASSIUM SERUM 3.7 MEQ/L (3.5-5.1); SODIUM LEVEL 132 MEQ/L (136-145); TOTAL PROTEIN 6.8 GM/DL (6.4-8.2); TROPONIN I < 0.02 NG/ML (< 0.10)
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
[2020-08-01] MEDS ORDERED: ACETAMINOPHEN TAB 650MG DOSE (2X325MG) PO PRN (20:15)
[2020-08-01] MEDS ORDERED: HYDR-3713 PO (20:42)
[2020-08-01] MEDS: SENOKOT S TAB PO SCH (21:00)
[2020-08-01] MEDS: NS 1,000 ML IV SCH (21:02)
[2020-08-01 22:15] VITALS: BP 154/68
[2020-08-01] MEDS: ONDANSETRON 4MG/2ML VIAL IV PRN (22:22)
[2020-08-01] MEDS: MORPHINE 2 MG/ML 1ML VIAL (J2270) IV PRN (22:23)
[2020-08-01] MEDS: NORCO, ANEXSIA 5/325MG TABLET (HYDROcodone/ACETAMINOPHEN) PO PRN (22:24)
[2020-08-01 22:30] VITALS: BP 113/56
[2020-08-02] VITALS (9 sets, daily range): BP systolic 96–132; BP diastolic 51–60
[2020-08-02] MEDS: KETOROLAC 30 MG/ML 1ML VIAL IV PRN ×4 (02:11→22:23)
[2020-08-02] MEDS: MORPHINE 2 MG/ML 1ML VIAL (J2270) IV PRN ×3 (02:11→17:04)
[2020-08-02] MEDS: NORCO, ANEXSIA 5/325MG TABLET (HYDROcodone/ACETAMINOPHEN) PO PRN ×2 (04:15→10:36)
[2020-08-02 04:29] LABS: BASO # 0.1 10^3/uL (0.0-0.2); BASO % 0.7 % (0.0-1.0); EOS # 0.2 10^3/uL (0.0-0.5); EOS % 1.7 % (0.0-3.0); HEMATOCRIT 31.3 % (36.0-47.0); HEMOGLOBIN 9.7 g/dl (12.0-15.5); LYMPH # 2.4 10^3/uL (1.5-5.0); LYMPH % 23.7 % (24.0-44.0); MEAN CORPUSCULAR HEMOGLOBIN 27.1 pg (27.0-33.0); MEAN CORPUSCULAR VOLUME 87.4 fl (80.0-96.0); MONO # 1.9 10^3/uL (0.0-0.8); MONO % 18.4 % (0.0-5.0); NEUTROPHILS # 5.7 10^3/uL (1.5-8.5); NEUTROPHILS % 55.2 % (36.0-66.0); PLATELET COUNT, AUTOMATED 251 10^3/uL (150-450); RED BLOOD COUNT 3.58 10^6/uL (4.00-5.40); WHITE BLOOD COUNT 10.3 10^3/uL (4.0-10.0)
[2020-08-02 04:59] LABS: ALBUMIN 2.7 GM/DL (3.2-5.2); BILIRUBIN,TOTAL 0.9 MG/DL (0.2-1.0); CALCIUM LEVEL 8.3 MG/DL (8.8-10.2); CREATININE FOR GFR 1.06 MG/DL (0.55-1.30); GLOMERULAR FILTRATION RATE 55.7 (>45); POTASSIUM SERUM 3.8 MEQ/L (3.5-5.1); TOTAL PROTEIN 6.2 GM/DL (6.4-8.2)
[2020-08-02] MEDS ORDERED: FLUBLOK(EGG FREE)(QUAD)INFLUENZA VACC 0.5ML SYRINGE 18YRS & OLDER IM SCH (06:00)
[2020-08-02] MEDS: lisinopriL 10 MG TAB PO SCH (09:00)
[2020-08-02] MEDS ORDERED: PANTOPRAZOLE 40MG VIAL (C9113 PER 1) IV SCH (09:00)
[2020-08-02] MEDS: ASCORBIC ACID 500 MG TAB PO SCH (09:00)
[2020-08-02] MEDS: SENOKOT S TAB PO SCH ×2 (09:21→20:08)
[2020-08-02] MEDS: ONDANSETRON 4MG/2ML VIAL IV PRN ×2 (09:25→18:19)
[2020-08-02] MEDS: NS 1,000 ML IV SCH (10:36)
[2020-08-02] MEDS ORDERED: COMBIVENT RESPIMAT 100-20MCG INHALER 4GM INH PRN (11:00)
[2020-08-02] MEDS ORDERED: GLUCAGON INJ 1MG VIAL SC PRN (11:45)
[2020-08-02] MEDS ORDERED: GLUCOSE 4GM CHEW TABLET PO PRN (11:45)
[2020-08-02] MEDS ORDERED: DEXTROSE 50% 50 ML SYRINGE IV PRN (11:45)
[2020-08-02] MEDS: GABAPENTIN 300 MG CAP PO SCH ×2 (12:30→20:08)
[2020-08-02] MEDS: LEVOTHYROXINE 25MCG TABLET (0.025MG) PO SCH (12:30)
[2020-08-02] MEDS: HumaLOG INSULIN (NovoLOG) PER UNIT SC SCH ×3 (12:34→20:04)
[2020-08-02] MEDS: oxyCODONE 5MG TAB PO PRN ×3 (12:44→23:35)
--- NOTE | 2020-08-02 13:19 | ECGEPIP ---
[facility] - ED Test Date: 2020-08-01 Pat Name: AUDREY VILLALOBOS Department: Room: - Gender: Female Manager Online: NR : [id number] Requested By: STEPHANIE Banegas Order Number: [id number] Reading MD: Therese Mohr Measurements Intervals [place] Rate: 71 P: 36 DC: 115 QRS: -39 QRSD: 119 T: 82 QT: 415 QTc: 453 Interpretive Statements SINUS RHYTHM WITH SHORT DC INTERVAL MARKED LEFT AXIS DEVIATION INCOMPLETE RIGHT BUNDLE BRANCH BLOCK Electronically Signed on 08-02-2020 13:19:05 EDT by Therese Mohr
[2020-08-02] MEDS ORDERED: MORPHINE 2 MG/ML 1ML VIAL (J2270) IV ONE (17:45)
[2020-08-02] MEDS: amLODIPine 5 MG TAB PO SCH (20:08)
[2020-08-02] MEDS: OMEPRAZOLE 20 MG CAP PO SCH (20:09)
[2020-08-02] MEDS: SIMVASTATIN 20 MG TAB PO SCH (20:09)
[2020-08-02] MEDS: PROPRANOLOL 60 MG LA CAP PO SCH (20:09)
[2020-08-02] MEDS: allopurinoL 100 MG TAB PO SCH (20:10)
[2020-08-03] VITALS: BP 93/45; O2SAT 97
[2020-08-03 04:00] VITALS: BP 104/54
[2020-08-03] MEDS: oxyCODONE 5MG TAB PO PRN ×3 (04:05→16:36)
[2020-08-03] MEDS: LEVOTHYROXINE 25MCG TABLET (0.025MG) PO SCH (05:08)
[2020-08-03 06:00] VITALS: BP 122/51
[2020-08-03] MEDS: ONDANSETRON 4MG/2ML VIAL IV PRN ×2 (06:26→16:35)
[2020-08-03 06:35] VITALS: BP 122/51
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
[2020-08-03] MEDS: GABAPENTIN 300 MG CAP PO SCH ×2 (08:40→20:56)
[2020-08-03] MEDS: ASCORBIC ACID 500 MG TAB PO SCH (08:41)
[2020-08-03] MEDS: SENOKOT S TAB PO SCH ×2 (08:41→20:56)
[2020-08-03] MEDS: lisinopriL 10 MG TAB PO SCH (08:41)
[2020-08-03] MEDS: HumaLOG INSULIN (NovoLOG) PER UNIT SC SCH ×4 (08:42→20:57)
[2020-08-03] MEDS: LIDOCAINE 5% (LIDODERM) PATCH TD SCH (08:47)
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
[2020-08-03] MEDS ORDERED: FLUBLOK(EGG FREE)(QUAD)INFLUENZA VACC 0.5ML SYRINGE 18YRS & OLDER IM ONE (09:00)
[2020-08-03 14:40] VITALS: BP 127/51
[2020-08-03] MEDS: SIMVASTATIN 20 MG TAB PO SCH (20:55)
[2020-08-03] MEDS: OMEPRAZOLE 20 MG CAP PO SCH (20:55)
[2020-08-03] MEDS: amLODIPine 5 MG TAB PO SCH (20:56)
[2020-08-03] MEDS: allopurinoL 100 MG TAB PO SCH (20:56)
[2020-08-03] MEDS: PROPRANOLOL 60 MG LA CAP PO SCH (20:56)
[2020-08-03] MEDS: **NOTE PATIENT COMMENT** MISC XX SCH (20:57)
[2020-08-03 22:00] VITALS: BP 128/51
[2020-08-04] MEDS: LEVOTHYROXINE 25MCG TABLET (0.025MG) PO SCH (05:51)
[2020-08-04] MEDS: oxyCODONE 5MG TAB PO PRN ×2 (05:52→20:55)
[2020-08-04 06:00] VITALS: BP 126/61
[2020-08-04] MEDS: HumaLOG INSULIN (NovoLOG) PER UNIT SC SCH ×4 (07:30→21:00)
[2020-08-04] MEDS: LIDOCAINE 5% (LIDODERM) PATCH TD SCH (09:41)
[2020-08-04] MEDS: ASCORBIC ACID 500 MG TAB PO SCH (09:44)
[2020-08-04] MEDS: SENOKOT S TAB PO SCH ×2 (09:44→20:56)
[2020-08-04] MEDS: lisinopriL 10 MG TAB PO SCH (09:44)
[2020-08-04] MEDS: GABAPENTIN 300 MG CAP PO SCH ×2 (09:45→20:56)
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
[2020-08-04 14:00] VITALS: BP 123/75
[2020-08-04] MEDS: OMEPRAZOLE 20 MG CAP PO SCH (20:55)
[2020-08-04] MEDS: PROPRANOLOL 60 MG LA CAP PO SCH (20:55)
[2020-08-04] MEDS: amLODIPine 5 MG TAB PO SCH (20:56)
[2020-08-04] MEDS: SIMVASTATIN 20 MG TAB PO SCH (20:56)
[2020-08-04] MEDS: allopurinoL 100 MG TAB PO SCH (20:58)
[2020-08-04] MEDS: **NOTE PATIENT COMMENT** MISC XX SCH (20:58)
[2020-08-04] MEDS: KETOROLAC 30 MG/ML 1ML VIAL IV PRN (21:08)
[2020-08-04 22:00] VITALS: BP 120/66
[2020-08-05] MEDS: LEVOTHYROXINE 25MCG TABLET (0.025MG) PO SCH (05:54)
[2020-08-05 06:00] VITALS: BP 117/65
[2020-08-05 07:07] LABS: BASO % 0.4 % (0.0-1.0); EOS # 0.2 10^3/uL (0.0-0.5); EOS % 2.9 % (0.0-3.0); HEMATOCRIT 29.6 % (36.0-47.0); HEMOGLOBIN 9.2 g/dl (12.0-15.5); LYMPH # 1.4 10^3/uL (1.5-5.0); LYMPH % 17.5 % (24.0-44.0); MEAN CORPUSCULAR HEMOGLOBIN 27.5 pg (27.0-33.0); MEAN CORPUSCULAR HGB CONC 31.1 g/dl (32.0-36.5); MEAN CORPUSCULAR VOLUME 88.6 fl (80.0-96.0); MONO # 1.9 10^3/uL (0.0-0.8); MONO % 23.9 % (0.0-5.0); NEUTROPHILS # 4.4 10^3/uL (1.5-8.5); NEUTROPHILS % 54.9 % (36.0-66.0); PLATELET COUNT, AUTOMATED 176 10^3/uL (150-450); RED BLOOD COUNT 3.34 10^6/uL (4.00-5.40)
[2020-08-05 07:20] LABS: ALBUMIN 2.4 GM/DL (3.2-5.2); BILIRUBIN,TOTAL 0.9 MG/DL (0.2-1.0); CALCIUM LEVEL 8.5 MG/DL (8.8-10.2); CREATININE FOR GFR 1.95 MG/DL (0.55-1.30); GLOMERULAR FILTRATION RATE 27.6 (>45); POTASSIUM SERUM 4.3 MEQ/L (3.5-5.1)
[2020-08-05] MEDS: HumaLOG INSULIN (NovoLOG) PER UNIT SC SCH ×4 (07:49→21:00)
[2020-08-05] MEDS: ASCORBIC ACID 500 MG TAB PO SCH (07:49)
[2020-08-05] MEDS: GABAPENTIN 300 MG CAP PO SCH (07:50)
[2020-08-05] MEDS: LIDOCAINE 5% (LIDODERM) PATCH TD SCH (07:50)
[2020-08-05] MEDS: lisinopriL 10 MG TAB PO SCH (07:50)
[2020-08-05] MEDS: SENOKOT S TAB PO SCH ×2 (07:50→21:56)
--- NOTE | 2020-08-05 10:13 | REPVR ---
PROCEDURE INFORMATION: Exam: CT Head Without Contrast Exam date and time: 08/05/2020 9:56 AM Age: 65 years old Clinical indication: Other: Confusion TECHNIQUE: Imaging protocol: Computed tomography of the head without contrast. Radiation optimization: All CT scans at this facility use at least one of these dose optimization techniques: automated exposure control; mA and/or kV adjustment per patient size (includes targeted exams where dose is matched to clinical indication); or iterative reconstruction. COMPARISON: CT Head without contrast 08/01/2020 6:39 PM FINDINGS: Limitations: There are no sagittal or coronal reformatted images available for review. Brain: No mass, mass effect, parenchymal hemorrhage, or evidence of large acute infarct. No asymmetric sulcal effacement or loss of the estrada-white interface. No extra-axial hemorrhage. Patchy hypodensity in the periventricular and subcortical white matter in both hemispheres consistent with small vessel ischemic disease. There is a cortical calcification again seen at the right sylvian fissure, incidentally noted. Small calcifications at the basal ganglia bilaterally. Mild cerebral volume loss. Ventricles: There is no hydrocephalus. Basal cisterns are patent. No midline shift. Bones/joints: Unremarkable. No acute fracture. Paranasal sinuses: Visualized sinuses are unremarkable. No fluid levels. Mastoid air cells: Visualized mastoid air cells are well aerated. Vasculature: There is atherosclerotic calcification in the internal carotid arteries bilaterally. Soft tissues: Unremarkable. IMPRESSION: 1. No intracranial hemorrhage or evidence of large acute infarct. 2. Atherosclerosis with mild cerebral volume loss and patchy small vessel ischemic disease. Electronically signed by: Chandrika Alston On 08/05/2020 10:13:33 AM
[2020-08-05] MEDS: LACTULOSE 20 GM/30 ML SYRUP UD PO SCH ×2 (11:47→18:37)
[2020-08-05] MEDS: rifAXIMin 550 MG TAB (XIFAXAN) PO SCH ×2 (11:47→21:56)
[2020-08-05 14:00] VITALS: BP 134/60
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
[2020-08-05] MEDS: LR 1,000 ML IV SCH (18:37)
[2020-08-05] MEDS: KETOROLAC 30 MG/ML 1ML VIAL IV PRN (18:38)
[2020-08-05] MEDS: OMEPRAZOLE 20 MG CAP PO SCH (21:56)
[2020-08-05] MEDS: amLODIPine 5 MG TAB PO SCH (21:57)
[2020-08-05] MEDS: SIMVASTATIN 20 MG TAB PO SCH (21:57)
[2020-08-05] MEDS: PROPRANOLOL 60 MG LA CAP PO SCH (21:57)
[2020-08-05] MEDS: allopurinoL 100 MG TAB PO SCH (21:58)
[2020-08-05] MEDS: **NOTE PATIENT COMMENT** MISC XX SCH (21:58)
[2020-08-05 22:00] VITALS: BP 134/61
[2020-08-05] MEDS ORDERED: traMADol 50 MG TAB PO ONE (22:45)
[2020-08-06 06:00] VITALS: BP 132/61
[2020-08-06] MEDS: LACTULOSE 20 GM/30 ML SYRUP UD PO SCH ×6 (07:01→23:50)
[2020-08-06] MEDS: LEVOTHYROXINE 25MCG TABLET (0.025MG) PO SCH (07:01)
[2020-08-06] MEDS: LR 1,000 ML IV SCH ×3 (07:01→20:23)
[2020-08-06 07:18] LABS: BASO % 0.2 % (0.0-1.0); EOS # 0.1 10^3/uL (0.0-0.5); HEMATOCRIT 29.2 % (36.0-47.0); HEMOGLOBIN 9.2 g/dl (12.0-15.5); LYMPH # 1.6 10^3/uL (1.5-5.0); LYMPH % 12.7 % (24.0-44.0); MEAN CORPUSCULAR HEMOGLOBIN 27.5 pg (27.0-33.0); MEAN CORPUSCULAR HGB CONC 31.5 g/dl (32.0-36.5); MEAN CORPUSCULAR VOLUME 87.2 fl (80.0-96.0); MONO # 1.8 10^3/uL (0.0-0.8); MONO % 14.4 % (0.0-5.0); NEUTROPHILS # 8.8 10^3/uL (1.5-8.5); NEUTROPHILS % 71.2 % (36.0-66.0); PLATELET COUNT, AUTOMATED 183 10^3/uL (150-450); RED BLOOD COUNT 3.35 10^6/uL (4.00-5.40); WHITE BLOOD COUNT 12.4 10^3/uL (4.0-10.0)
[2020-08-06 07:24] LABS: CALCIUM LEVEL 8.6 MG/DL (8.8-10.2); CREATININE FOR GFR 1.55 MG/DL (0.55-1.30); POTASSIUM SERUM 4.5 MEQ/L (3.5-5.1)
[2020-08-06 07:25] LABS: ALBUMIN 2.3 GM/DL (3.2-5.2); BILIRUBIN,TOTAL 1.2 MG/DL (0.2-1.0); TOTAL PROTEIN 5.6 GM/DL (6.4-8.2)
[2020-08-06] MEDS: HumaLOG INSULIN (NovoLOG) PER UNIT SC SCH ×4 (07:55→20:10)
[2020-08-06] MEDS: LIDOCAINE 5% (LIDODERM) PATCH TD SCH (07:55)
[2020-08-06] MEDS: rifAXIMin 550 MG TAB (XIFAXAN) PO SCH ×2 (07:56→20:23)
[2020-08-06] MEDS: lisinopriL 10 MG TAB PO SCH (07:56)
[2020-08-06] MEDS: ENOXAPARIN 30MG/0.3ML SYRINGE (J1650 PER 10MG) SC SCH (07:56)
[2020-08-06] MEDS: SENOKOT S TAB PO SCH ×2 (07:57→20:23)
[2020-08-06] MEDS: ASCORBIC ACID 500 MG TAB PO SCH (07:57)
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
[2020-08-06 14:00] VITALS: BP 122/55
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
[2020-08-06] MEDS: KETOROLAC 30 MG/ML 1ML VIAL IV PRN (18:06)
[2020-08-06 20:21] VITALS: BP 117/52
[2020-08-06] MEDS: amLODIPine 5 MG TAB PO SCH (20:22)
[2020-08-06] MEDS: allopurinoL 100 MG TAB PO SCH (20:23)
[2020-08-06] MEDS: PROPRANOLOL 60 MG LA CAP PO SCH (20:23)
[2020-08-06] MEDS: OMEPRAZOLE 20 MG CAP PO SCH (20:23)
[2020-08-06] MEDS: SIMVASTATIN 20 MG TAB PO SCH (20:23)
[2020-08-06] MEDS: **NOTE PATIENT COMMENT** MISC XX SCH (20:23)
[2020-08-06 21:00] VITALS: O2SAT 94
[2020-08-07] MEDS: LEVOTHYROXINE 25MCG TABLET (0.025MG) PO SCH (05:38)
[2020-08-07] MEDS: LACTULOSE 20 GM/30 ML SYRUP UD PO SCH ×3 (05:38→18:19)
[2020-08-07 06:00] VITALS: BP 136/71
[2020-08-07] MEDS: ULTRACET TAB PO PRN ×2 (06:08→15:26)
[2020-08-07] MEDS: HumaLOG INSULIN (NovoLOG) PER UNIT SC SCH ×4 (08:56→21:00)
[2020-08-07] MEDS: ENOXAPARIN 30MG/0.3ML SYRINGE (J1650 PER 10MG) SC SCH (08:56)
[2020-08-07] MEDS: LIDOCAINE 5% (LIDODERM) PATCH TD SCH (08:56)
[2020-08-07] MEDS: SENOKOT S TAB PO SCH ×2 (08:57→21:00)
[2020-08-07] MEDS: lisinopriL 10 MG TAB PO SCH (08:57)
[2020-08-07] MEDS: rifAXIMin 550 MG TAB (XIFAXAN) PO SCH ×2 (08:57→21:17)
[2020-08-07] MEDS: ASCORBIC ACID 500 MG TAB PO SCH (08:57)
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
[2020-08-07 14:00] VITALS: BP 120/74
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
[2020-08-07] MEDS: ONDANSETRON 4MG/2ML VIAL IV PRN (15:31)
[2020-08-07 19:35] VITALS: BP 127/63
[2020-08-07 21:00] VITALS: O2SAT 94
[2020-08-07] MEDS: **NOTE PATIENT COMMENT** MISC XX SCH (21:00)
[2020-08-07] MEDS: allopurinoL 100 MG TAB PO SCH (21:15)
[2020-08-07] MEDS: OMEPRAZOLE 20 MG CAP PO SCH (21:15)
[2020-08-07] MEDS: amLODIPine 5 MG TAB PO SCH (21:16)
[2020-08-07] MEDS: SIMVASTATIN 20 MG TAB PO SCH (21:17)
[2020-08-07] MEDS: PROPRANOLOL 60 MG LA CAP PO SCH (21:17)
[2020-08-08] MEDS: LEVOTHYROXINE 25MCG TABLET (0.025MG) PO SCH (05:07)
[2020-08-08] MEDS: ULTRACET TAB PO PRN ×2 (05:07→18:25)
[2020-08-08] MEDS: LACTULOSE 20 GM/30 ML SYRUP UD PO SCH ×5 (05:08→23:29)
[2020-08-08 06:15] VITALS: BP 125/61
[2020-08-08 07:31] LABS: CALCIUM LEVEL 8.3 MG/DL (8.8-10.2); CREATININE FOR GFR 1.17 MG/DL (0.55-1.30); GLOMERULAR FILTRATION RATE 49.7 (>45); POTASSIUM SERUM 3.9 MEQ/L (3.5-5.1)
[2020-08-08] MEDS: lisinopriL 10 MG TAB PO SCH (08:03)
[2020-08-08] MEDS: LIDOCAINE 5% (LIDODERM) PATCH TD SCH (08:03)
[2020-08-08] MEDS: HumaLOG INSULIN (NovoLOG) PER UNIT SC SCH ×4 (08:03→21:00)
[2020-08-08] MEDS: SENOKOT S TAB PO SCH ×2 (08:04→21:04)
[2020-08-08] MEDS: ENOXAPARIN 30MG/0.3ML SYRINGE (J1650 PER 10MG) SC SCH (08:04)
[2020-08-08] MEDS: rifAXIMin 550 MG TAB (XIFAXAN) PO SCH ×2 (08:04→21:04)
[2020-08-08] MEDS: ASCORBIC ACID 500 MG TAB PO SCH (08:04)
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
[2020-08-08 09:00] VITALS: O2SAT 97
[2020-08-08 14:00] VITALS: BP 150/75
[2020-08-08 19:32] VITALS: BP 115/57
[2020-08-08 21:00] VITALS: O2SAT 96
[2020-08-08] MEDS: SIMVASTATIN 20 MG TAB PO SCH (21:04)
[2020-08-08] MEDS: OMEPRAZOLE 20 MG CAP PO SCH (21:04)
[2020-08-08] MEDS: amLODIPine 5 MG TAB PO SCH (21:05)
[2020-08-08] MEDS: PROPRANOLOL 60 MG LA CAP PO SCH (21:05)
[2020-08-08] MEDS: allopurinoL 100 MG TAB PO SCH (21:05)
[2020-08-08] MEDS: **NOTE PATIENT COMMENT** MISC XX SCH (21:06)
[2020-08-09] MEDS: LEVOTHYROXINE 25MCG TABLET (0.025MG) PO SCH (05:52)
[2020-08-09] MEDS: LACTULOSE 20 GM/30 ML SYRUP UD PO SCH ×3 (05:52→17:11)
[2020-08-09] MEDS: ULTRACET TAB PO PRN ×3 (05:53→22:25)
[2020-08-09 06:00] VITALS: BP 117/56
[2020-08-09] MEDS: HumaLOG INSULIN (NovoLOG) PER UNIT SC SCH ×4 (07:23→20:42)
[2020-08-09] MEDS: LIDOCAINE 5% (LIDODERM) PATCH TD SCH (07:23)
[2020-08-09] MEDS: ASCORBIC ACID 500 MG TAB PO SCH (07:23)
[2020-08-09] MEDS: SENOKOT S TAB PO SCH ×2 (07:23→20:42)
[2020-08-09] MEDS: rifAXIMin 550 MG TAB (XIFAXAN) PO SCH ×2 (07:23→20:41)
[2020-08-09] MEDS: ENOXAPARIN 30MG/0.3ML SYRINGE (J1650 PER 10MG) SC SCH (07:24)
[2020-08-09] MEDS: lisinopriL 10 MG TAB PO SCH (07:41)
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
[2020-08-09 09:00] VITALS: O2SAT 92
[2020-08-09 14:00] VITALS: BP 126/59
[2020-08-09] MEDS: SIMVASTATIN 20 MG TAB PO SCH (20:41)
[2020-08-09] MEDS: allopurinoL 100 MG TAB PO SCH (20:41)
[2020-08-09] MEDS: OMEPRAZOLE 20 MG CAP PO SCH (20:41)
[2020-08-09] MEDS: PROPRANOLOL 60 MG LA CAP PO SCH (20:41)
[2020-08-09] MEDS: **NOTE PATIENT COMMENT** MISC XX SCH (20:42)
[2020-08-09] MEDS: amLODIPine 5 MG TAB PO SCH (20:42)
[2020-08-09 21:00] VITALS: O2SAT 96
[2020-08-10] MEDS: LACTULOSE 20 GM/30 ML SYRUP UD PO SCH ×4 (05:56→21:20)
[2020-08-10] MEDS: LEVOTHYROXINE 25MCG TABLET (0.025MG) PO SCH (05:56)
[2020-08-10] MEDS: ULTRACET TAB PO PRN ×2 (05:58→15:38)
[2020-08-10 06:00] VITALS: BP 118/58; O2SAT 96
[2020-08-10] MEDS: SENOKOT S TAB PO SCH ×2 (08:37→21:00)
[2020-08-10] MEDS: ASCORBIC ACID 500 MG TAB PO SCH (08:52)
[2020-08-10] MEDS: ENOXAPARIN 30MG/0.3ML SYRINGE (J1650 PER 10MG) SC SCH (08:52)
[2020-08-10] MEDS: rifAXIMin 550 MG TAB (XIFAXAN) PO SCH ×2 (08:52→21:21)
[2020-08-10] MEDS: LIDOCAINE 5% (LIDODERM) PATCH TD SCH (08:52)
[2020-08-10] MEDS: HumaLOG INSULIN (NovoLOG) PER UNIT SC SCH ×4 (08:52→21:00)
[2020-08-10] MEDS: lisinopriL 10 MG TAB PO SCH (08:53)
[2020-08-10 09:00] VITALS: O2SAT 93
[2020-08-10] MEDS ORDERED: KETOROLAC 30 MG/ML 1ML VIAL IV ONE (09:15)
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
[2020-08-10] MEDS ORDERED: CelecoXIB (CeleBREX) 100 MG CAP PO PRN (10:45)
[2020-08-10 14:00] VITALS: BP 122/60
[2020-08-10] MEDS: SIMVASTATIN 20 MG TAB PO SCH (21:20)
[2020-08-10] MEDS: allopurinoL 100 MG TAB PO SCH (21:21)
[2020-08-10] MEDS: amLODIPine 5 MG TAB PO SCH (21:21)
[2020-08-10] MEDS: PROPRANOLOL 60 MG LA CAP PO SCH (21:21)
[2020-08-10] MEDS: OMEPRAZOLE 20 MG CAP PO SCH (21:22)
[2020-08-10] MEDS: **NOTE PATIENT COMMENT** MISC XX SCH (21:22)
[2020-08-10 22:00] VITALS: BP 120/59
[2020-08-11] MEDS: ULTRACET TAB PO PRN ×3 (02:40→21:32)
[2020-08-11 05:37] LABS: BASO # 0.1 10^3/uL (0.0-0.2); BASO % 0.9 % (0.0-1.0); EOS # 0.3 10^3/uL (0.0-0.5); EOS % 5.1 % (0.0-3.0); HEMATOCRIT 29.1 % (36.0-47.0); LYMPH # 1.7 10^3/uL (1.5-5.0); LYMPH % 26.4 % (24.0-44.0); MEAN CORPUSCULAR HEMOGLOBIN 27.3 pg (27.0-33.0); MEAN CORPUSCULAR HGB CONC 30.9 g/dl (32.0-36.5); MEAN CORPUSCULAR VOLUME 88.2 fl (80.0-96.0); MONO # 1.1 10^3/uL (0.0-0.8); MONO % 17.6 % (0.0-5.0); NEUTROPHILS # 3.2 10^3/uL (1.5-8.5); NEUTROPHILS % 49.8 % (36.0-66.0); PLATELET COUNT, AUTOMATED 161 10^3/uL (150-450); WHITE BLOOD COUNT 6.3 10^3/uL (4.0-10.0)
[2020-08-11] MEDS: LEVOTHYROXINE 25MCG TABLET (0.025MG) PO SCH (05:56)
[2020-08-11 06:00] VITALS: BP 116/53
[2020-08-11 06:04] LABS: ALBUMIN 2.1 GM/DL (3.2-5.2); BILIRUBIN,TOTAL 0.9 MG/DL (0.2-1.0); CALCIUM LEVEL 8.6 MG/DL (8.8-10.2); CREATININE FOR GFR 1.17 MG/DL (0.55-1.30); GLOMERULAR FILTRATION RATE 49.7 (>45); POTASSIUM SERUM 4.2 MEQ/L (3.5-5.1); TOTAL PROTEIN 5.5 GM/DL (6.4-8.2)
[2020-08-11] MEDS: LACTULOSE 20 GM/30 ML SYRUP UD PO SCH ×3 (08:26→21:00)
[2020-08-11] MEDS: HumaLOG INSULIN (NovoLOG) PER UNIT SC SCH ×4 (08:26→21:00)
[2020-08-11] MEDS: LIDOCAINE 5% (LIDODERM) PATCH TD SCH (08:26)
[2020-08-11] MEDS: ENOXAPARIN 30MG/0.3ML SYRINGE (J1650 PER 10MG) SC SCH (08:27)
[2020-08-11] MEDS: rifAXIMin 550 MG TAB (XIFAXAN) PO SCH (08:27)
[2020-08-11] MEDS: SENOKOT S TAB PO SCH ×2 (08:27→21:00)
[2020-08-11] MEDS: lisinopriL 10 MG TAB PO SCH (08:27)
[2020-08-11] MEDS: ASCORBIC ACID 500 MG TAB PO SCH (08:27)
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
[2020-08-11 14:00] VITALS: BP 121/57
[2020-08-11 21:32] VITALS: BP 125/60
[2020-08-11] MEDS: SIMVASTATIN 20 MG TAB PO SCH (21:32)
[2020-08-11] MEDS: OMEPRAZOLE 20 MG CAP PO SCH (21:32)
[2020-08-11] MEDS: allopurinoL 100 MG TAB PO SCH (21:32)
[2020-08-11] MEDS: PROPRANOLOL 60 MG LA CAP PO SCH (21:32)
[2020-08-11] MEDS: amLODIPine 5 MG TAB PO SCH (21:33)
[2020-08-11] MEDS: **NOTE PATIENT COMMENT** MISC XX SCH (21:33)
[2020-08-11 22:00] VITALS: BP 125/60
[2020-08-12] MEDS: ULTRACET TAB PO PRN (05:50)
[2020-08-12] MEDS: LEVOTHYROXINE 25MCG TABLET (0.025MG) PO SCH (05:50)
[2020-08-12 06:00] VITALS: BP 101/44
[2020-08-12] MEDS: LACTULOSE 20 GM/30 ML SYRUP UD PO SCH (09:50)
[2020-08-12] MEDS: ASCORBIC ACID 500 MG TAB PO SCH (09:50)
[2020-08-12] MEDS: SENOKOT S TAB PO SCH (09:50)
[2020-08-12] MEDS: HumaLOG INSULIN (NovoLOG) PER UNIT SC SCH ×2 (09:51→13:38)
[2020-08-12] MEDS: ENOXAPARIN 30MG/0.3ML SYRINGE (J1650 PER 10MG) SC SCH (09:51)
[2020-08-12] MEDS: LIDOCAINE 5% (LIDODERM) PATCH TD SCH (09:52)
[2020-08-12 09:55] VITALS: BP 110/45
[2020-08-12] MEDS: lisinopriL 10 MG TAB PO SCH (10:40)
[2020-08-12] MEDS ORDERED: CELE100C PO (13:46)
[2020-08-12] MEDS ORDERED: TRAM37.53 PO (13:47)
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
== END 2020-08-12 15:25 | disposition home health service (06) | DRG 184 ==
LOC: M ED 17:58 → EDBD 17:58 → M ED INP 20:06 → EEVIPCON 20:06 → ENRESERV 20:56 → M ICU 22:02 → M MS5PR 08-03 06:28
PROVIDERS: ADMIT Surgery; ATTEND Surgery
DX: S22.42XA Multiple fractures of ribs, left side, initial encounter for closed fracture (principal); R18.8 Other ascites; R47.01 Aphasia; N17.9 Acute kidney failure, unspecified; I85.10 Secondary esophageal varices without bleeding; K72.90 Hepatic failure, unspecified without coma; K75.81 Nonalcoholic steatohepatitis (NASH); K74.60 Unspecified cirrhosis of liver; I10 Essential (primary) hypertension; L40.50 Arthropathic psoriasis, unspecified; D63.8 Anemia in other chronic diseases classified elsewhere; M54.9 Dorsalgia, unspecified; Z96.651 Presence of right artificial knee joint; V86.55XA Driver of 3- or 4- wheeled all-terrain vehicle (ATV) injured in nontraffic accident, initial encounter; Y93.89 Activity, other specified; Y92.89 Other specified places as the place of occurrence of the external cause; Z95.5 Presence of coronary angioplasty implant and graft; Z90.49 Acquired absence of other specified parts of digestive tract; Z79.4 Long term (current) use of insulin; Z79.899 Other long term (current) drug therapy; R11.10 Vomiting, unspecified; T40.605A Adverse effect of unspecified narcotics, initial encounter; E11.9 Type 2 diabetes mellitus without complications; Z98.41 Cataract extraction status, right eye; Z98.42 Cataract extraction status, left eye

== ENCOUNTER 2020-08-21 01:03 | Inpatient (IN) | payer OTHER ==
[2020-08-21] VITALS (98 sets, daily range): BP systolic 60–166; BP diastolic 32–80
[~2020-08-21] VITALS: Ht 162.6 cm; Wt 94.0 kg
[~2020-08-21 01:03] MED LIST changes: +CELE100C PO; +HYDR-3713 PO; +TRAM37.53 PO
[2020-08-21] MEDS ORDERED: ISOVUE-370 76% 100ML VIAL As Ordered ONE (01:17)
[2020-08-21] MEDS ORDERED: NS 500 ML IV ONE ×2 (01:45→02:15)
[2020-08-21 01:49] LABS: BASO # 0.1 10^3/uL (0.0-0.2); BASO % 0.7 % (0.0-1.0); EOS # 0.3 10^3/uL (0.0-0.5); EOS % 3.8 % (0.0-3.0); HEMOGLOBIN 7.8 g/dl (12.0-15.5); LYMPH # 2.2 10^3/uL (1.5-5.0); LYMPH % 25.5 % (24.0-44.0); MEAN CORPUSCULAR HEMOGLOBIN 26.9 pg (27.0-33.0); MEAN CORPUSCULAR VOLUME 89.7 fl (80.0-96.0); MONO # 1.3 10^3/uL (0.0-0.8); NEUTROPHILS # 4.7 10^3/uL (1.5-8.5); NEUTROPHILS % 54.8 % (36.0-66.0); PLATELET COUNT, AUTOMATED 164 10^3/uL (150-450); WHITE BLOOD COUNT 8.5 10^3/uL (4.0-10.0)
--- NOTE | 2020-08-21 01:53 | REPVR ---
PROCEDURE INFORMATION: Exam: XR Chest, 1 View Exam date and time: 08/21/20 (1:38am) Age: 65 years old Clinical indication: Chest pain, dyspnea, cough TECHNIQUE: Imaging protocol: Portable CXR Views: 1 view COMPARISON: CT CHEST of 08/01/20 Chest films of 08/02/20 FINDINGS: The patient is slightly rotated to an ARABIC projection. Interval development of a [id number] left pleural effusion. The lower 40-50% of the left hemithorax is opacified. Stable cardiomegaly. The right lung remains clear. No pneumothorax. IMPRESSION: A huwwdkur-gb-iosyr left pleural effusion is present. Probable associated left basilar atelectasis. Cannot exclude a LLL pneumonia. The right lung remains clear. Follow-up is suggested. Electronically signed by: Katarina Galicia On 08/21/2020 01:52:18 AM
[2020-08-21 02:07] LABS: INR 1.33; PROTHROMBIN TIME 16.8 SECONDS (12.5-14.3)
[2020-08-21 02:08] LABS: PARTIAL THROMBOPLASTIN TIME 35.3 SECONDS (24.2-38.5)
[2020-08-21 02:10] LABS: ABG BASE EXCESS -4.3 (-2.0-2.0); ABG HCO3 20.9 MEQ/L (22.0-26.0); ABG PARTIAL PRESSURE CO2 38.7 mmHg (35.0-45.0); ABG PARTIAL PRESSURE O2 113.7 mmHg (75.0-100.0); ABG STANDARD HCO3 20.9 MEQ/L (22.0-26.0); ABG TOTAL CO2 22.1 MEQ/L (23.0-31.0); ABG pH (ARTERIAL) 7.351 UNITS (7.350-7.450)
[2020-08-21] MEDS ORDERED: PANTOPRAZOLE 40MG VIAL (C9113 PER 1) IV ONE (02:15)
[2020-08-21 03:00] LABS: ALBUMIN 2.1 GM/DL (3.2-5.2); ALT/SGPT 12 U/L (12-78); BILIRUBIN,DIRECT 0.2 MG/DL (0.0-0.2); BILIRUBIN,TOTAL 0.5 MG/DL (0.2-1.0); BLOOD UREA NITROGEN 33 MG/DL (7-18); CALCIUM LEVEL 8.3 MG/DL (8.8-10.2); CARBON DIOXIDE LEVEL 24 MEQ/L (21-32); CHLORIDE LEVEL 106 MEQ/L (98-107); CK-MB VALUE MASS 4.9 NG/ML (<3.6); CPK CREATINE PHOSPHOKINASE 62 U/L (26-192); CREATININE FOR GFR 1.54 MG/DL (0.55-1.30); FREE T4 1.19 NG/DL (0.76-1.46); GLOMERULAR FILTRATION RATE 36.2 (>45); GLUCOSE, FASTING 175 MG/DL (70-100); NT-PRO BNP 579 PG/ML (<125); POTASSIUM SERUM 5.1 MEQ/L (3.5-5.1); SODIUM LEVEL 135 MEQ/L (136-145); TOTAL PROTEIN 5.8 GM/DL (6.4-8.2); TROPONIN I < 0.02 NG/ML (< 0.10)
[2020-08-21] MEDS ORDERED: NS 1,000 ML IV ONE ×2 (03:00→19:00)
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
--- NOTE | 2020-08-21 04:38 | REPVR ---
PROCEDURE INFORMATION: Exam: CT Abdomen and Pelvis with Contrast Exam date and time: 08/21/20 (3:38am) Age: 65 years old Clinical indication: Generalized abdominal pain. Left-sided rib pain. SOB. TECHNIQUE: Imaging protocol: Computed tomography of the abdomen and pelvis with intravenous contrast. Radiation optimization: All CT scans at this facility use at least one of these dose optimization techniques: automated exposure control; mA and/or kV adjustment per patient size (includes targeted exams where dose is matched to clinical indication); or iterative reconstruction. Contrast material: Iso Contrast volume: 100 ml Contrast route: IV COMPARISON: CT ABDOMEN PELVIS of 08/01/20 FINDINGS: Lower lung kent: Large left pleural effusion, and associated atelectasis. Multiple left-sided rib fractures (approx. left ribs #5 - #10). Liver: No discrete mass. Cirrhotic liver changes. Gallbladder and bile ducts: Normal. No calcified stones. No ductal dilatation. Pancreas: Normal. No ductal dilatation. Spleen: Prominent spleen. Adrenals: Normal. No mass. Kidneys and ureters: Normal. No hydronephrosis. Stomach and bowel: Unremarkable. No bowel obstruction. No mucosal thickening. Appendix: No evidence of appendicitis. Intraperitoneal space: Moderate amount of abdominal and pelvic ascites (generally similar amount of fluid noted 4 weeks ago). No free air. Vasculature: Unremarkable. No abdominal aortic aneurysm. Lymph nodes: Unremarkable. No enlarged lymph nodes. Urinary bladder: Teixeira catheter in place. Reproductive: Unremarkable as visualized. Bones/joints: Unremarkable. No acute fracture. Soft tissues: Some body wall edema again noted. IMPRESSION: Interval development of a large left pleural effusion, and associated atelectasis. Multiple left-sided rib fractures (see separate CT-CHEST report) Cirrhotic liver changes again noted. Moderate amount of ascites (similar amount of fluid noted 4 weeks ago). No acute abdominal-pelvic pathology. No acute bowel pathology. No hydronephrosis. See additional comments above. Electronically signed by: Katarina Galicia On 08/21/2020 04:38:08 AM
[2020-08-21] MEDS ORDERED: KCL 20MEQ IN D5/NS 1000ML 1,000 ML IV SCH (04:55)
[2020-08-21] MEDS ORDERED: NORCO, ANEXSIA 5/325MG TABLET (HYDROcodone/ACETAMINOPHEN) PO PRN (05:00)
[2020-08-21] MEDS ORDERED: LEVALBUTEROL 1.25 MG/0.5 ML CONCENTRATE NEB NEB PRN (05:00)
[2020-08-21] MEDS ORDERED: ACETAMINOPHEN TAB 650MG DOSE (2X325MG) PO PRN (05:00)
[2020-08-21] MEDS ORDERED: BISACODYL 10 MG SUPP PR PRN (05:00)
[2020-08-21] MEDS ORDERED: PERCOCET 5MG/325MG TAB PO PRN (05:00)
[2020-08-21] MEDS ORDERED: LACT20EL PO (05:03)
[2020-08-21] MEDS ORDERED: TRAM37.53 PO (05:03)
[2020-08-21] MEDS ORDERED: CELE100C PO (05:03)
[2020-08-21] MEDS ORDERED: GABA-843 PO (05:05)
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
[2020-08-21] MEDS ORDERED: MIDAZOLAM INJ 2MG/2ML VIAL (J2250 PER 1MG) As Ordered ONE ×2 (05:28→06:07)
[2020-08-21] MEDS ORDERED: flumazeniL 0.5 MG/5 ML VIAL As Ordered ONE (05:29)
[2020-08-21] MEDS ORDERED: LIDOCAINE 1% MDV 20ML VIAL As Ordered ONE ×2 (05:29→06:07)
[2020-08-21] MEDS ORDERED: DEXTROSE 50% 50 ML SYRINGE IV PRN (05:30)
[2020-08-21] MEDS ORDERED: GLUCOSE 4GM CHEW TABLET PO PRN (05:30)
[2020-08-21] MEDS ORDERED: GLUCAGON INJ 1MG VIAL SC PRN (05:30)
[2020-08-21] MEDS ORDERED: D5W/0.9% SODIUM CHLORIDE 1,000 ML IV SCH (05:45)
[2020-08-21] MEDS ORDERED: KETOROLAC 30 MG/ML 1ML VIAL IV SCH (06:00)
[2020-08-21 06:25] LABS: LDH LACTATE DEHYDROGENASE 284 U/L (84-246)
[2020-08-21 07:06] LABS: PH BODY FLUID 7.781 UNITS (NOT ESTABLISHED); SOURCE, BODY FLUID pH PLEURAL
[2020-08-21] MEDS: HumaLOG INSULIN (NovoLOG) PER UNIT SC SCH ×3 (07:30→17:09)
--- NOTE | 2020-08-21 07:33 | ECGEPIP ---
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
[2020-08-21] MEDS: LEVALBUTEROL 1.25 MG/0.5 ML CONCENTRATE NEB NEB SCH ×3 (07:37→20:04)
[2020-08-21 07:46] LABS: AMYLASE, BODY FLUID 27 U/L (NOT ESTABLISHED); CHOLESTEROL, BODY FLUID < 50 MG/DL (NOT ESTABLISHED); LDH, BODY FLUID 177 U/L (NOT ESTABLISHED); SOURCE, BODY FLUID ALBUMIN PLEURAL; SOURCE, BODY FLUID AMYLASE PLEURAL; SOURCE, BODY FLUID CHOL PLEURAL; SOURCE, BODY FLUID GLUCOSE PLEURAL; SOURCE, BODY FLUID LDH PLEURAL; SOURCE, BODY FLUID TOT PROTEIN PLEURAL; TOTAL PROTEIN, BODY FLUID 2.5 G/DL (NOT ESTABLISHED); TRIGLYCERIDE, BODY FLUID 25 MG/DL (NOT ESTABLISHED)
[2020-08-21 07:47] LABS: SOURCE, BODY FLUID TRIG PLEURAL
[2020-08-21 08:00] LABS: PLEURAL FL COLOR RED (COLORLESS); SOURCE, BODY FLUID PLEURAL
[2020-08-21 08:01] LABS: APPEARANCE, BODY FLUID TURBID (CLEAR)
[2020-08-21] MEDS ORDERED: MIDAZOLAM INJ 2MG/2ML VIAL (J2250 PER 1MG) IV STA ×2 (08:04)
[2020-08-21] MEDS: PERCOCET 5MG/325MG TAB PO PRN ×3 (08:07→17:08)
[2020-08-21] MEDS: LEVOTHYROXINE 25MCG TABLET (0.025MG) PO SCH (08:07)
[2020-08-21] MEDS ORDERED: LIDOCAINE 1% MDV 20ML VIAL SC ONE (08:15)
[2020-08-21 08:23] LABS: HEMATOCRIT 33.3 % (36.0-47.0); MEAN CORPUSCULAR HEMOGLOBIN 27.7 pg (27.0-33.0); MEAN CORPUSCULAR HGB CONC 30.6 g/dl (32.0-36.5); MEAN CORPUSCULAR VOLUME 90.5 fl (80.0-96.0); PLATELET COUNT, AUTOMATED 188 10^3/uL (150-450); RED BLOOD COUNT 3.68 10^6/uL (4.00-5.40); WHITE BLOOD COUNT 8.6 10^3/uL (4.0-10.0)
[2020-08-21 08:27] LABS: HEMOGLOBIN 10.2 g/dl (12.0-15.5)
[2020-08-21] MEDS ORDERED: MORPHINE 4 MG/ML 1ML VIAL/SYRINGE (J2270) IV ONE (09:00)
[2020-08-21] MEDS: PANTOPRAZOLE 40MG VIAL (C9113 PER 1) IV SCH (09:00)
[2020-08-21] MEDS ORDERED: PANTOPRAZOLE 40MG TAB (PROTONIX) PO SCH (09:00)
[2020-08-21] MEDS: MOM 30ML SUSPENSION UDC PO SCH (10:30)
[2020-08-21] MEDS: DOCUSATE SODIUM 100MG CAPSULE PO SCH ×2 (10:30→20:27)
[2020-08-21] MEDS: HEPARIN SOD (PORCINE) 5000UNITS/ML 1ML VIAL/SYRINGE SC SCH ×2 (10:30→20:28)
[2020-08-21 14:37] LABS: HEMATOCRIT 33.8 % (36.0-47.0); HEMOGLOBIN 10.4 g/dl (12.0-15.5); MEAN CORPUSCULAR HEMOGLOBIN 27.9 pg (27.0-33.0); MEAN CORPUSCULAR HGB CONC 30.8 g/dl (32.0-36.5); MEAN CORPUSCULAR VOLUME 90.6 fl (80.0-96.0); PLATELET COUNT, AUTOMATED 212 10^3/uL (150-450); RED BLOOD COUNT 3.73 10^6/uL (4.00-5.40); WHITE BLOOD COUNT 13.1 10^3/uL (4.0-10.0)
[2020-08-21 14:59] LABS: CALCIUM LEVEL 8.4 MG/DL (8.8-10.2); CREATININE FOR GFR 1.79 MG/DL (0.55-1.30); GLOMERULAR FILTRATION RATE 30.4 (>45); POTASSIUM SERUM 5.1 MEQ/L (3.5-5.1)
[2020-08-21] MEDS ORDERED: FUROSEMIDE 100MG/10ML VIAL (J1940) IV ONE (17:00)
[2020-08-21] MEDS: ONDANSETRON 4MG/2ML VIAL IV PRN (19:23)
[2020-08-21 20:42] LABS: HEMATOCRIT 33.6 % (36.0-47.0); MEAN CORPUSCULAR HEMOGLOBIN 27.6 pg (27.0-33.0); MEAN CORPUSCULAR HGB CONC 29.8 g/dl (32.0-36.5); MEAN CORPUSCULAR VOLUME 92.8 fl (80.0-96.0); PLATELET COUNT, AUTOMATED 229 10^3/uL (150-450); RED BLOOD COUNT 3.62 10^6/uL (4.00-5.40); WHITE BLOOD COUNT 20.7 10^3/uL (4.0-10.0)
[2020-08-21] MEDS ORDERED: rifAXIMin 550 MG TAB (XIFAXAN) PO SCH (21:00)
[2020-08-21] MEDS ORDERED: HumaLOG INSULIN (NovoLOG) PER UNIT SC SCH (21:00)
[2020-08-22] VITALS (79 sets, daily range): BP systolic 78–152; BP diastolic 41–86
[2020-08-22] MEDS: LEVALBUTEROL 1.25 MG/0.5 ML CONCENTRATE NEB NEB SCH ×4 (00:21→20:11)
[2020-08-22] MEDS: ONDANSETRON 4MG/2ML VIAL IV PRN ×3 (00:35→11:00)
[2020-08-22] MEDS: PERCOCET 5MG/325MG TAB PO PRN (00:36)
[2020-08-22] MEDS: NOREPINEPHRINE BITARTRATE 8 MG in D5W 492 ML IV SCH ×2 (00:37→13:14)
[2020-08-22 02:16] LABS: HEMATOCRIT 32.7 % (36.0-47.0); HEMOGLOBIN 9.9 g/dl (12.0-15.5); MEAN CORPUSCULAR HEMOGLOBIN 27.7 pg (27.0-33.0); MEAN CORPUSCULAR HGB CONC 30.3 g/dl (32.0-36.5); MEAN CORPUSCULAR VOLUME 91.6 fl (80.0-96.0); PLATELET COUNT, AUTOMATED 224 10^3/uL (150-450); RED BLOOD COUNT 3.57 10^6/uL (4.00-5.40); WHITE BLOOD COUNT 21.9 10^3/uL (4.0-10.0)
[2020-08-22 03:12] LABS: CALCIUM LEVEL 7.9 MG/DL (8.8-10.2); CREATININE FOR GFR 1.98 MG/DL (0.55-1.30); GLOMERULAR FILTRATION RATE 27.1 (>45); POTASSIUM SERUM 5.7 MEQ/L (3.5-5.1)
[2020-08-22] MEDS ORDERED: SOD POLYSTYRENE SULFONATE SUSP 15 GM/60 ML UD PO ONE (03:15)
[2020-08-22 04:39] LABS: ALBUMIN 2.2 GM/DL (3.2-5.2); TOTAL PROTEIN 6.1 GM/DL (6.4-8.2)
--- NOTE | 2020-08-22 05:19 | REPVR ---
PROCEDURE INFORMATION: Exam: US Retroperitoneal Limited, Kidneys Exam date and time: 08/22/2020 4:02 AM Age: 65 years old Clinical indication: Other: Anuria; Patient HX: Patient had new ribera placed a few hours ago, ribera changed d/t patient not producing much urine, patient still not producing much urine with new ribera TECHNIQUE: Imaging protocol: Real-time ultrasound of the retroperitoneum with image documentation. Examination was focused on the kidneys. COMPARISON: 1. CT ABD/PEL W/IV CONTRAST ONLY 08/21/2020 3:33:58 AM 2. LIVER US 09/07/2018 8:35 AM FINDINGS: Limitations: Visibility of the kidneys is quite limited related to body habitus. Right kidney: The right kidney measures approximately 12.8 cm in length. No hydronephrosis is identified. Left kidney: The left kidney measures approximately 11.1 cm in length. No gross hydronephrosis is identified. Intraperitoneal space: In the pelvis, there is anechoic fluid which appeared to be fluid in the bladder inferiorly, but more superiorly it seemed to be free fluid. Ascites was present on the recent prior CT scan and free fluid in the pelvis is confirmed on the CT scan of the abdomen and pelvis performed shortly after this ultrasound. The bladder is likely collapsed. Other findings: The Ribera catheter is not visualized, probably due to body habitus. IMPRESSION: 1. Very limited exam with poor visibility of the kidneys and the pelvic structures due to body habitus. 2. No hydronephrosis identified. 3. Anechoic fluid in the pelvis consistent with ascites seen on prior and subsequent CT scans. 4. The bladder is not definitely identified and is probably collapsed. Electronically signed by: Jennifer Simmons On 08/22/2020 05:18:57 AM
--- NOTE | 2020-08-22 05:35 | REPVR ---
PROCEDURE INFORMATION: Exam: CT Abdomen And Pelvis Without Contrast Exam date and time: 08/22/2020 4:27 AM Age: 65 years old Clinical indication: Other: Anuria acute; Additional info: Acute anuria. US cannot visualize ribera. Check for osbtruc TECHNIQUE: Imaging protocol: Computed tomography of the abdomen and pelvis without contrast. Radiation optimization: All CT scans at this facility use at least one of these dose optimization techniques: automated exposure control; mA and/or kV adjustment per patient size (includes targeted exams where dose is matched to clinical indication); or iterative reconstruction. COMPARISON: CT ABD/PEL W/IV CONTRAST ONLY 08/21/2020 3:33 AM FINDINGS: Tubes, catheters and devices: A left chest tube is partially included, not seen on the prior exams. Lungs: There is improvement in aeration in the left lung base, with patchy residual consolidation. Pleural space: There is a small left pneumothorax. The left pleural effusion is smaller than previously. Liver: The liver is small with a nodular surface, consistent with cirrhosis. Gallbladder and bile ducts: There has been a cholecystectomy. There is no biliary ductal dilation. Pancreas: The pancreas appears unremarkable. No pancreatic ductal dilation identified. Spleen: The spleen is borderline in size measuring 13.0 cm in length. Adrenals: The adrenal glands are normal. Kidneys and ureters: There is persistent contrast within the renal parenchyma bilaterally and there is a small amount of excreted contrast in the bilateral renal collecting systems which is probably residual contrast from the CT scan performed August 21, 2020. No hydronephrosis. Stomach and bowel: There is no dilation or thickening of the small bowel. Mild diverticulosis is present in the distal colon. There is no dilation or thickening of the colon. A high density structure in the right lower quadrant seems to be within the small bowel, and was located further superiorly on the right side of the abdomen on the prior exam. Appendix: A normal appendix is identified. Intraperitoneal space: There is a moderate amount of free intraperitoneal fluid present. Vasculature: Atherosclerotic changes are present in the abdominal aorta and the iliac arteries. No aortic aneurysm. Lymph nodes: There is no gross lymphadenopathy. Urinary bladder: The bladder is decompressed by a Ribera catheter. There is a small amount of intraluminal air consistent with instrumentation. Reproductive: The uterus is unremarkable. Bones/joints: Left-sided rib fractures are again noted. Soft tissues: There is diffuse subcutaneous tissue edema. IMPRESSION: 1. Ribera catheter is in the collapsed bladder. No hydronephrosis. 2. Retained IV contrast in the bilateral renal parenchyma and in the renal collecting systems. If the most recent contrast injection was the prior CT scan of August 21, 2020 at 3:38 a.m., retention of contrast at this point would be indicative of renal dysfunction, possibly ATN. 3. Evidence of cirrhosis and ascites again seen. 4. A left chest tube has been placed since the prior exam. There is a decrease in left pleural fluid and improvement in aeration of the visualized left lung, but a left pneumothorax is now visible. Electronically signed by: Jennifer Simmons On 08/22/2020 05:35:03 AM
[2020-08-22] MEDS: LEVOTHYROXINE 25MCG TABLET (0.025MG) PO SCH (05:56)
[2020-08-22 06:07] LABS: ABG BASE EXCESS -7.4 (-2.0-2.0); ABG HCO3 19.3 MEQ/L (22.0-26.0); ABG O2 SATURATION 99.2 % (95.0-99.0); ABG PARTIAL PRESSURE CO2 43.9 mmHg (35.0-45.0); ABG PARTIAL PRESSURE O2 139.4 mmHg (75.0-100.0); ABG STANDARD HCO3 18.5 MEQ/L (22.0-26.0); ABG TOTAL CO2 20.7 MEQ/L (23.0-31.0); ABG pH (ARTERIAL) 7.262 UNITS (7.350-7.450)
[2020-08-22 06:16] LABS: BASO # 0.1 10^3/uL (0.0-0.2); BASO % 0.5 % (0.0-1.0); EOS # 0.8 10^3/uL (0.0-0.5); EOS % 3.8 % (0.0-3.0); HEMATOCRIT 33.7 % (36.0-47.0); HEMOGLOBIN 10.4 g/dl (12.0-15.5); LYMPH # 3.2 10^3/uL (1.5-5.0); LYMPH % 14.4 % (24.0-44.0); MEAN CORPUSCULAR HGB CONC 30.9 g/dl (32.0-36.5); MEAN CORPUSCULAR VOLUME 90.8 fl (80.0-96.0); MONO # 2.1 10^3/uL (0.0-0.8); MONO % 9.5 % (0.0-5.0); NEUTROPHILS # 15.9 10^3/uL (1.5-8.5); NEUTROPHILS % 71.2 % (36.0-66.0); PLATELET COUNT, AUTOMATED 230 10^3/uL (150-450); RED BLOOD COUNT 3.71 10^6/uL (4.00-5.40); WHITE BLOOD COUNT 22.3 10^3/uL (4.0-10.0)
--- NOTE | 2020-08-22 06:43 | REPVR ---
PROCEDURE INFORMATION: Exam: XR Chest, 1 View Exam date and time: 08/22/2020 6:22 AM Age: 65 years old Clinical indication: Abnormal findings; Other: Abnormal CT abd TECHNIQUE: Imaging protocol: XR of the chest Views: 1 view. COMPARISON: 1. [facility] PORTABLE CHEST X-RAY 08/21/2020 6:[address] ABD PELVIS W/O CONTRAST 08/22/2020 4:43:08 AM FINDINGS: Tubes, catheters and devices: A left-sided chest tube is again seen. A left subclavian catheter is again seen with the tip in the distal SVC. Lungs: There is minimal left lung base opacity, slightly improved compared to the prior exam. The right lung is clear. Pleural space: There is blunting of the left costophrenic angle consistent with a small left pleural effusion. No pneumothorax is visible on the x-ray. Specifically, the pneumothorax identified in the left lung base on the recent prior abdomen CT scan is not apparent on the x-ray. Heart/Mediastinum: The heart is enlarged. Bones/joints: Known left-sided rib fractures are not well seen. IMPRESSION: 1. The left sided pneumothorax visible on the recent prior abdomen CT scan is not evident on the chest x-ray. 2. Left chest tube unchanged. 3. Blunting of the left costophrenic angle, indicating a small left pleural effusion. Small patchy left lung base opacity, slightly improved compared to the prior chest x-ray. Electronically signed by: Jennifer Simmons On 08/22/2020 06:42:48 AM
[2020-08-22] MEDS: HumaLOG INSULIN (NovoLOG) PER UNIT SC SCH ×3 (07:30→17:30)
[2020-08-22] MEDS: cefTRIAXone SOD 2 GM in D5W MINI-BAG PLUS 50 ML IV SCH (07:53)
[2020-08-22] MEDS: LACTULOSE 20 GM/30 ML SYRUP UD PO SCH ×2 (07:53→12:00)
[2020-08-22] MEDS ORDERED: LACTULOSE 20 GM/30 ML SYRUP UD PO SCH (09:00)
[2020-08-22] MEDS: PANTOPRAZOLE 40MG VIAL (C9113 PER 1) IV SCH (09:21)
[2020-08-22] MEDS: MOM 30ML SUSPENSION UDC PO SCH (09:21)
[2020-08-22] MEDS: HEPARIN SOD (PORCINE) 5000UNITS/ML 1ML VIAL/SYRINGE SC SCH ×2 (09:21→21:16)
[2020-08-22] MEDS ORDERED: LACTULOSE 20 GM/30 ML SYRUP UD PR ONE ×2 (09:30→15:30)
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
[2020-08-22] MEDS ORDERED: FUROSEMIDE 100MG/10ML VIAL (J1940) IV ONE (11:00)
[2020-08-22 12:30] LABS: APPEARANCE, URINE CLOUDY (CLEAR); BACTERIA, URINE AUTO NEGATIVE (NEGATIVE); BILIRUBIN, URINE AUTO NEGATIVE (NEGATIVE); BLOOD, URINE BLOOD 3+ (NEGATIVE); COLOR, URINE AMBER (YELLOW); GLUCOSE, URINE (UA) AUTO NEGATIVE (NEGATIVE); KETONE, URINE AUTO NEGATIVE (NEGATIVE); LEUKOCYTE ESTERASE, URINE AUTO TRACE (NEGATIVE); NITRITE, URINE AUTO NEGATIVE (NEGATIVE); PROTEIN, URINE AUTO 2+ mg/dL (NEGATIVE); RBC, URINE AUTO TNTC /HPF (0-3); SPECIFIC GRAVITY URINE AUTO 1.032 (1.002-1.035); SQUAMOUS EPITHELIAL CELL UR AU 1 /HPF (0-6); UROBILINOGEN, URINE AUTO 0.2 mg/dL (0.0-2.0); WBC, URINE AUTO TNTC /HPF (0-3)
[2020-08-22] MEDS: MORPHINE 2 MG/ML 1ML VIAL (J2270) IV PRN ×2 (13:15→22:31)
[2020-08-22 14:22] LABS: HEMATOCRIT 31.5 % (36.0-47.0); HEMOGLOBIN 9.6 g/dl (12.0-15.5); MEAN CORPUSCULAR HEMOGLOBIN 27.6 pg (27.0-33.0); MEAN CORPUSCULAR HGB CONC 30.5 g/dl (32.0-36.5); MEAN CORPUSCULAR VOLUME 90.5 fl (80.0-96.0); PLATELET COUNT, AUTOMATED 225 10^3/uL (150-450); RED BLOOD COUNT 3.48 10^6/uL (4.00-5.40); WHITE BLOOD COUNT 17.9 10^3/uL (4.0-10.0)
[2020-08-22 15:00] LABS: CALCIUM LEVEL 8.5 MG/DL (8.8-10.2); CREATININE FOR GFR 2.09 MG/DL (0.55-1.30); GLOMERULAR FILTRATION RATE 25.5 (>45); POTASSIUM SERUM 5.8 MEQ/L (3.5-5.1)
[2020-08-22] MEDS: ONDANSETRON 4MG/2ML VIAL IV SCH ×2 (15:48→19:48)
[2020-08-22 17:34] LABS: INR 1.44; PROTHROMBIN TIME 17.8 SECONDS (12.5-14.3)
[2020-08-22 17:35] LABS: PARTIAL THROMBOPLASTIN TIME 47.3 SECONDS (24.2-38.5)
[2020-08-22] MEDS: oxyCODONE 5MG TAB PO PRN (17:35)
[2020-08-22 19:54] LABS: MAGNESIUM LEVEL 1.9 MG/DL (1.8-2.4)
[2020-08-22] MEDS ORDERED: BISACODYL 10 MG SUPP PR ONE (20:15)
[2020-08-22] MEDS ORDERED: GLUCOSE 4GM CHEW TABLET PO PRN (21:15)
[2020-08-22] MEDS ORDERED: DEXTROSE 50% 50 ML SYRINGE IV PRN (21:15)
[2020-08-22] MEDS ORDERED: GLUCAGON INJ 1MG VIAL SC PRN (21:15)
[2020-08-22] MEDS: SODIUM CHLORIDE 0.9% INJ 10 ML SYR IV SCH (22:31)
[2020-08-23] VITALS (88 sets, daily range): BP systolic 87–163; BP diastolic 45–104
[2020-08-23 00:10] LABS: IONIZED CALCIUM 4.7 MG/DL (4.5-5.3)
[2020-08-23 00:11] LABS: HEMATOCRIT 31.9 % (36.0-47.0); HEMOGLOBIN 9.5 g/dl (12.0-15.5); MEAN CORPUSCULAR HEMOGLOBIN 27.1 pg (27.0-33.0); MEAN CORPUSCULAR HGB CONC 29.8 g/dl (32.0-36.5); MEAN CORPUSCULAR VOLUME 90.9 fl (80.0-96.0); PLATELET COUNT, AUTOMATED 203 10^3/uL (150-450); RED BLOOD COUNT 3.51 10^6/uL (4.00-5.40); WHITE BLOOD COUNT 16.2 10^3/uL (4.0-10.0)
[2020-08-23] MEDS: LACTULOSE 20 GM/30 ML SYRUP UD PO SCH ×7 (00:25→23:49)
[2020-08-23] MEDS: HumaLOG INSULIN (NovoLOG) PER UNIT SC SCH ×5 (00:25→23:51)
[2020-08-23 00:35] LABS: CALCIUM LEVEL 8.7 MG/DL (8.8-10.2); CREATININE FOR GFR 1.66 MG/DL (0.55-1.30); GLOMERULAR FILTRATION RATE 33.2 (>45); PHOSPHORUS LEVEL 3.8 MG/DL (2.5-4.9); POTASSIUM SERUM 5.4 MEQ/L (3.5-5.1)
[2020-08-23] MEDS: LEVALBUTEROL 1.25 MG/0.5 ML CONCENTRATE NEB NEB SCH ×4 (00:38→20:03)
[2020-08-23] MEDS: NOREPINEPHRINE BITARTRATE 8 MG in D5W 492 ML IV SCH ×2 (02:19→08:13)
[2020-08-23] MEDS: ONDANSETRON 4MG/2ML VIAL IV SCH ×4 (02:26→20:55)
[2020-08-23 05:43] LABS: BASO # 0.1 10^3/uL (0.0-0.2); BASO % 0.4 % (0.0-1.0); EOS # 0.2 10^3/uL (0.0-0.5); HEMOGLOBIN 9.3 g/dl (12.0-15.5); LYMPH # 1.3 10^3/uL (1.5-5.0); LYMPH % 9.3 % (24.0-44.0); MEAN CORPUSCULAR HEMOGLOBIN 27.2 pg (27.0-33.0); MEAN CORPUSCULAR VOLUME 90.6 fl (80.0-96.0); MONO # 1.5 10^3/uL (0.0-0.8); MONO % 10.2 % (0.0-5.0); NEUTROPHILS # 11.4 10^3/uL (1.5-8.5); NEUTROPHILS % 78.5 % (36.0-66.0); PLATELET COUNT, AUTOMATED 171 10^3/uL (150-450); RED BLOOD COUNT 3.42 10^6/uL (4.00-5.40); WHITE BLOOD COUNT 14.5 10^3/uL (4.0-10.0)
[2020-08-23 06:09] LABS: CALCIUM LEVEL 8.4 MG/DL (8.8-10.2); CREATININE FOR GFR 1.46 MG/DL (0.55-1.30); GLOMERULAR FILTRATION RATE 38.5 (>45); MAGNESIUM LEVEL 2.2 MG/DL (1.8-2.4); PHOSPHORUS LEVEL 3.4 MG/DL (2.5-4.9); POTASSIUM SERUM 5.1 MEQ/L (3.5-5.1)
[2020-08-23] MEDS: SODIUM CHLORIDE 0.9% INJ 10 ML SYR IV SCH ×3 (06:31→21:31)
[2020-08-23] MEDS: LEVOTHYROXINE 25MCG TABLET (0.025MG) PO SCH (06:37)
--- NOTE | 2020-08-23 08:06 | REPVR ---
PROCEDURE INFORMATION: Exam: XR Chest, 1 View Exam date and time: 08/23/20 (7:13am) Age: 65 years old Clinical indication: Chest pain TECHNIQUE: Imaging protocol: Portable CXR Views: 1 view COMPARISON: Portable CXR of 08/22/20 (11:42am) FINDINGS: Comparison is made with a portable CXR done the previous morning. Large patient size. Stable cardiomegaly. No focal infiltrates. No pleural effusions. A left-sided chest tube remains, with its tip projecting over the left hilum No significant pneumothorax. A right-sided jugular venous sheath remains (stable position). A left-sided subclavian venous catheter remains, with its tip in the upper right atrium. An enteric tube has been placed, with its tip in the proximal stomach. IMPRESSION: The lung kent are unchanged in appearance over the past 19-20 hours. A left-sided chest tube remains. No significant pneumothorax is evident. An enteric tube has been placed, with its tip in the proximal stomach. See additional comments above. Electronically signed by: Katarina Galicia On 08/23/2020 08:05:44 AM
[2020-08-23] MEDS: cefTRIAXone SOD 2 GM in D5W MINI-BAG PLUS 50 ML IV SCH (08:14)
[2020-08-23] MEDS: PANTOPRAZOLE 40MG VIAL (C9113 PER 1) IV SCH (09:15)
[2020-08-23] MEDS: MOM 30ML SUSPENSION UDC PO SCH (09:16)
[2020-08-23] MEDS: HEPARIN SOD (PORCINE) 5000UNITS/ML 1ML VIAL/SYRINGE SC SCH ×2 (09:16→20:57)
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
--- NOTE | 2020-08-23 13:02 | RO ---
DATE OF OPERATION: 08/21/2020 PRE-PROCEDURE DIAGNOSIS: Hypotension secondary to hypovolemia, need for vascular access, and central pressure monitoring. POST-PROCEDURE DIAGNOSIS: Hypotension secondary to hypovolemia, need for vascular access, and central pressure monitoring. PROCEDURE: Insertion of left subclavian central line. SURGEON: Lex Hood MD ROAD COMMISSIONER: ANESTHESIA: PROCEDURE IN DETAIL: Patients infraclavicular fossa was prepped and draped in the usual sterile fashion and was infiltrated with 1% lidocaine. Subclavian vein was found on the first pass underneath the clavicle and a wire was placed with production of PVCs. Tract was dilated and a triple lumen catheter was placed by Seldinger technique. Ports were aspirated and flushed without difficulty. The catheter was secured to the chest wall with two 3-0 silk sutures. CVP was obtained which was 23 and 25. The patient tolerated the procedure well and chest x-ray is pending. [facility]
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
--- NOTE | 2020-08-23 13:08 | CCN ---
DATE: 08/22/2020 Ms. Ngo is seen again this afternoon on her bedside in intensive care unit. She did respond to intravenous albumin and IV Lasix to a certain extent, however her hypotension worsened and she has required increased dose of Levophed. I was called with repeat labs this afternoon and her potassium level is up to 5.8, BUN 35, and creatinine 2.09. She has made only about 250 mL of urine after receiving 100 mg of Lasix with IV albumin. Her ammonia level was up to 126 and she did receive lactulose enema without significant results. We did have a hemodialysis catheter placed by Dr. lFor in anticipation for starting continuous renal replacement therapy (CRRT). On physical exam, her temperature is 98.4 degrees Fahrenheit, heart rate 80 per minute, and respiratory rate 16 per minute. Blood pressure about 101/40 mmHg and oxygen saturation 98%. She is on three liters of oxygen. Head is atraumatic. Neck is supple and jugular venous distention (JVD) difficult to be assessed. Heart sounds are regular without a pericardial friction rub. Lungs with diminished breath sounds on the left side. She has a chest tube. Abdomen is obese and nontender. Abdominal wall edema is present and ascites is present. Extremities without any cyanosis or clubbing. Lower extremity edema is at least 3+ to 4+ up to the waist. Neurologically she is still mentating without any significant change since earlier. Repeat labs this afternoon showed sodium 136, potassium 5.8, CO2 24, BUN 35, and creatinine 2.09. Glucose 148 and calcium 8.5. Lactic acid level is 1.5 and magnesium is 1.9. WBC count is down to 17.9, hemoglobin 9.6, and hematocrit 31.5. Platelets 225. PROBLEMS: 1. Oliguric acute renal failure. She did respond to intravenous Lasix only moderately with 250 mL urine output. Her potassium level is up to 5.8 and she is not tolerating oral medications including Kayexalate. I have already discussed with her about need for potential dialysis. We are going to start continuous renal replacement therapy (CRRT). I have written the CRRT orders and reviewed with the nursing staff. We will repeat her labs ever 12 hours and monitor her electrolytes. 2. Hypotension. Patient remains on Levophed and I am quite concerned about it. I am concerned about possibility of infection as she does have leukocytosis. I have discussed with the hospitalist service. She remains on Rocephin at present. 3. Hyperkalemia. This is related to oliguric acute renal failure and likely to improve with continuous renal replacement therapy (CRRT). Her electrolytes will be repeated again in the morning. 4. Cirrhosis of liver with ascites. Patient is likely to benefit from intravenous albumin and I would recommend to continue with the same. 5. Anemia. Her anemia is stable at present and we will continue to monitor closely. 26 minutes of critical care time spent during which no procedures were performed. MTDD
[2020-08-23] MEDS: MORPHINE 2 MG/ML 1ML VIAL (J2270) IV PRN ×2 (17:48→23:51)
[2020-08-23 18:12] LABS: HEMATOCRIT 29.2 % (36.0-47.0); HEMOGLOBIN 8.8 g/dl (12.0-15.5); MEAN CORPUSCULAR HEMOGLOBIN 27.2 pg (27.0-33.0); MEAN CORPUSCULAR HGB CONC 30.1 g/dl (32.0-36.5); MEAN CORPUSCULAR VOLUME 90.4 fl (80.0-96.0); PLATELET COUNT, AUTOMATED 111 10^3/uL (150-450); RED BLOOD COUNT 3.23 10^6/uL (4.00-5.40); WHITE BLOOD COUNT 9.7 10^3/uL (4.0-10.0)
[2020-08-23 18:42] LABS: CALCIUM LEVEL 8.2 MG/DL (8.8-10.2); CREATININE FOR GFR 1.15 MG/DL (0.55-1.30); GLOMERULAR FILTRATION RATE 50.7 (>45); MAGNESIUM LEVEL 2.4 MG/DL (1.8-2.4); PHOSPHORUS LEVEL 2.5 MG/DL (2.5-4.9); POTASSIUM SERUM 4.8 MEQ/L (3.5-5.1)
[2020-08-23] MEDS ORDERED: CALCIUM GLUCONATE 1,000 MG in NS 100 ML IV ONE (18:45)
[2020-08-23] MEDS ORDERED: CALCIUM GLUCONATE 1,000 MG in D5W MINI-BAG PLUS 100 ML IV ONE (19:00)
[2020-08-24] VITALS (43 sets, daily range): BP systolic 94–141; BP diastolic 49–88
[2020-08-24] MEDS: LEVALBUTEROL 1.25 MG/0.5 ML CONCENTRATE NEB NEB SCH ×4 (02:00→19:37)
[2020-08-24] MEDS: LACTULOSE 20 GM/30 ML SYRUP UD PO SCH ×5 (04:00→20:00)
[2020-08-24] MEDS: NOREPINEPHRINE BITARTRATE 8 MG in D5W 492 ML IV SCH (04:29)
[2020-08-24 05:21] LABS: HEMATOCRIT 28.1 % (36.0-47.0); HEMOGLOBIN 8.6 g/dl (12.0-15.5); MEAN CORPUSCULAR HEMOGLOBIN 27.9 pg (27.0-33.0); MEAN CORPUSCULAR HGB CONC 30.6 g/dl (32.0-36.5); MEAN CORPUSCULAR VOLUME 91.2 fl (80.0-96.0); RED BLOOD COUNT 3.08 10^6/uL (4.00-5.40); WHITE BLOOD COUNT 8.8 10^3/uL (4.0-10.0)
[2020-08-24 05:23] LABS: PLATELET COUNT, AUTOMATED 92 10^3/uL (150-450)
[2020-08-24 05:36] LABS: PARTIAL THROMBOPLASTIN TIME 46.3 SECONDS (24.2-38.5)
[2020-08-24 05:47] LABS: BLOOD UREA NITROGEN 14 MG/DL (7-18); CALCIUM LEVEL 8.6 MG/DL (8.8-10.2); CARBON DIOXIDE LEVEL 29 MEQ/L (21-32); CHLORIDE LEVEL 105 MEQ/L (98-107); CREATININE FOR GFR 0.97 MG/DL (0.55-1.30); GLOMERULAR FILTRATION RATE > 60.0 (>45); GLUCOSE, FASTING 114 MG/DL (70-100); MAGNESIUM LEVEL 2.4 MG/DL (1.8-2.4); PHOSPHORUS LEVEL 2.1 MG/DL (2.5-4.9); POTASSIUM SERUM 4.4 MEQ/L (3.5-5.1); SODIUM LEVEL 136 MEQ/L (136-145)
[2020-08-24 05:50] LABS: INR 1.46; PROTHROMBIN TIME 18.1 SECONDS (12.5-14.3)
[2020-08-24] MEDS: LEVOTHYROXINE 25MCG TABLET (0.025MG) PO SCH (06:00)
[2020-08-24] MEDS: HumaLOG INSULIN (NovoLOG) PER UNIT SC SCH ×3 (06:00→18:00)
--- NOTE | 2020-08-24 06:17 | CCN ---
DATE: 08/23/2020 SUBJECTIVE: Mrs. Ngo seen this morning on her bedside. CRRT is in progress on her bedside. Patient is poorly responsive today. She has mittens on her hands as nursing staff reports that she has been trying to pull out her NG tube and lines. She is now receiving lactulose via NG tube and her ammonia level is coming down. She does not have much urine output. On review of her CRRT records since last evening, negative about 1200 cc of fluid has been removed so far. Patient is still on low dose Levophed with 4 mcg/kg per minute. PHYSICAL EXAMINATION: VITAL SIGNS: Temperature 96.6 degrees Fahrenheit, heart rate 64 per minute, respiratory rate 12 per minute, blood pressure currently 130/57 mmHg and oxygen saturation 99% on 2 liter oxygen. Nursing staff reports that earlier she did drop her blood pressure down and required slight increase in the dose of Levophed, however, it has now improved and Levophed has been tapered down to 4 mcg once again. GENERAL: She has generalized edema. NECK: Right-sided internal jugular vein catheter for dialysis is without any signs of infection or bleeding. HEART: Heart sounds are regular and without a pericardial friction rub. LUNGS: Diminished breath sounds and left-sided chest tube is in place. ABDOMEN: Obese, soft and nontender. Abdominal wall edema is present on the lower abdomen. EXTREMITIES: Without any cyanosis or clubbing. She has mittens on her hands. Lower extremity edema is 4+ bilaterally. NEUROLOGICAL: She is lethargic today and not responding to questions very well. LABORATORY DATA: Todays labs showed WBC 14.5, hemoglobin 9.3, hematocrit 31 platelets 171,000. Sodium 136, potassium 5.1, CO2 26, BUN 24, creatinine 1.46, glucose 168 and calcium 8.4. Serum ammonia level is down to 76. Lactic acid level 2.0 today. PROBLEMS: 1. Anuric acute renal failure: Patient remains anuric and currently on CRRT, we will continue with the same and her orders are being renewed. 2. Generalized edema and hypervolemia: We are trying to remove some fluid with CRRT. We cannot remove fluid to aggressively due to low blood pressure and need for pressors. 3. Hypertension: Her blood pressure is slightly better as her Levophed requirement has come down. We will continue to wean her off as tolerated. She is receiving I.V. albumin every 6 hours. 4. Hyperkalemia: Her potassium level has corrected now and we will continue to monitor her electrolytes every 12 hours. 5. Cirrhosis of liver with ascites: She also has encephalopathy related to hepatic dysfunction. She is now receiving lactulose via NG tube and her ammonia level is improving, though mentation has deteriorated since yesterday. 6. Leukocytosis and possible pulmonary infiltrate: She remains afebrile on antibiotics. 7. Left-sided hemothorax: Patient has chest tube in place and blood from the chest cavity has been drained. 32 minutes of critical care time spent, during which no procedures were performed. MTDD
--- NOTE | 2020-08-24 06:22 | RO ---
DATE OF OPERATION: 08/22/2020 PREOPERATIVE DIAGNOSIS: Renal failure. POSTOPERATIVE DIAGNOSIS: Renal failure. PROCEDURE: Right internal venous jugular dialysis catheter, 15 cm PROCEDURALIST: Gordo Flor DO ANESTHESIA: 10 ml of 1% lidocaine without epinephrine, introduced subcutaneously. CONSENT: Written consent was obtained from the patient and placed in the chart. ACTUARIAL TRAINEE: None. DESCRIPTION OF PROCEDURE: After informed consent was obtained, the patient was placed in the supine position. Time-out was performed with two patient identifiers, identifying the correct site, the correct position. The right IJ was identified under ultrasound. The patient was then prepped and draped in a sterile manner with chlorhexidine and full sterile barrier precautions. The ultrasound was then placed under sterile barrier. IJ was then again identified with an estimated central venous pressure of at least 16. The vein was not collapsable with inspiration. 1% lidocaine was then instilled subcutaneously over the site of the IJ. The raNovaPlannerson syringe was then placed into the right IJ on the first pass with returning venous blood flow. Wire was fed through the needle with some ectopy. The needle was removed. A denisha in the skin was made over the wire. Two dilators were placed for the dialysis catheter, eventually placing at 15 cm via a modified Seldinger technique. Both ports returned venous blood easily and flushed easily. Wire was removed. This was sutured in at 15 cm. 1.2 cc of heparin was placed in the venous port and 1.0 cc of heparin was then placed in the arterial port. A sterile impregnated dressing was placed over the site. There were no observed complications. Post procedure chest x-ray is pending. [facility]
[2020-08-24] MEDS: SODIUM CHLORIDE 0.9% INJ 10 ML SYR IV SCH ×3 (06:50→21:58)
[2020-08-24] MEDS ORDERED: CALCIUM GLUCONATE 1,000 MG in NS 100 ML IV ONE ×7 (07:00→22:00)
[2020-08-24] MEDS: MOM 30ML SUSPENSION UDC PO SCH (07:36)
[2020-08-24] MEDS ORDERED: SODIUM PHOSPHATE INJ 20 MMOL in D5W 250 ML IV ONE ×2 (08:00→08:15)
[2020-08-24] MEDS: PANTOPRAZOLE 40MG VIAL (C9113 PER 1) IV SCH (08:31)
[2020-08-24] MEDS: cefTRIAXone SOD 2 GM in D5W MINI-BAG PLUS 50 ML IV SCH (08:32)
[2020-08-24] MEDS: MORPHINE 2 MG/ML 1ML VIAL (J2270) IV PRN ×3 (08:45→20:20)
[2020-08-24] MEDS ORDERED: FUROSEMIDE 100MG/10ML VIAL (J1940) IV ONE (10:30)
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
[2020-08-24 18:37] LABS: HEMATOCRIT 26.9 % (36.0-47.0); HEMOGLOBIN 8.1 g/dl (12.0-15.5); IONIZED CALCIUM 4.5 MG/DL (4.5-5.3); MEAN CORPUSCULAR HEMOGLOBIN 27.5 pg (27.0-33.0); MEAN CORPUSCULAR HGB CONC 30.1 g/dl (32.0-36.5); MEAN CORPUSCULAR VOLUME 91.2 fl (80.0-96.0); RED BLOOD COUNT 2.95 10^6/uL (4.00-5.40); WHITE BLOOD COUNT 7.3 10^3/uL (4.0-10.0)
[2020-08-24 18:49] LABS: PLATELET COUNT, AUTOMATED 79 10^3/uL (150-450)
[2020-08-24 19:02] LABS: BLOOD UREA NITROGEN 9 MG/DL (7-18); CALCIUM LEVEL 8.2 MG/DL (8.8-10.2); CARBON DIOXIDE LEVEL 29 MEQ/L (21-32); CHLORIDE LEVEL 105 MEQ/L (98-107); CREATININE FOR GFR 0.74 MG/DL (0.55-1.30); GLOMERULAR FILTRATION RATE > 60.0 (>45); GLUCOSE, FASTING 126 MG/DL (70-100); MAGNESIUM LEVEL 2.4 MG/DL (1.8-2.4); PHOSPHORUS LEVEL 2.1 MG/DL (2.5-4.9); POTASSIUM SERUM 4.5 MEQ/L (3.5-5.1); SODIUM LEVEL 138 MEQ/L (136-145)
[2020-08-24] MEDS ORDERED: SODIUM PHOSPHATE INJ 30 MMOL in NS 250 ML IV ONE ×4 (20:00)
[2020-08-25] VITALS (24 sets, daily range): BP systolic 104–145; BP diastolic 50–82
[2020-08-25] MEDS: MORPHINE 2 MG/ML 1ML VIAL (J2270) IV PRN ×3 (00:39→09:22)
[2020-08-25] MEDS: LEVALBUTEROL 1.25 MG/0.5 ML CONCENTRATE NEB NEB SCH ×4 (00:57→19:26)
[2020-08-25] MEDS: LACTULOSE 20 GM/30 ML SYRUP UD PO SCH ×7 (04:00→23:37)
[2020-08-25 05:40] LABS: IONIZED CALCIUM 4.5 MG/DL (4.5-5.3)
[2020-08-25 05:48] LABS: HEMATOCRIT 26.5 % (36.0-47.0); MEAN CORPUSCULAR HEMOGLOBIN 27.7 pg (27.0-33.0); MEAN CORPUSCULAR HGB CONC 30.2 g/dl (32.0-36.5); MEAN CORPUSCULAR VOLUME 91.7 fl (80.0-96.0); RED BLOOD COUNT 2.89 10^6/uL (4.00-5.40); WHITE BLOOD COUNT 6.2 10^3/uL (4.0-10.0)
[2020-08-25 05:49] LABS: PLATELET COUNT, AUTOMATED 82 10^3/uL (150-450)
[2020-08-25] MEDS: SODIUM CHLORIDE 0.9% INJ 10 ML SYR IV SCH ×3 (06:00→22:21)
[2020-08-25] MEDS: LEVOTHYROXINE 25MCG TABLET (0.025MG) PO SCH (06:00)
[2020-08-25] MEDS: HumaLOG INSULIN (NovoLOG) PER UNIT SC SCH ×5 (06:00→23:45)
[2020-08-25 06:10] LABS: BLOOD UREA NITROGEN 7 MG/DL (7-18); CALCIUM LEVEL 7.8 MG/DL (8.8-10.2); CARBON DIOXIDE LEVEL 30 MEQ/L (21-32); CHLORIDE LEVEL 106 MEQ/L (98-107); GLOMERULAR FILTRATION RATE > 60.0 (>45); GLUCOSE, FASTING 87 MG/DL (70-100); MAGNESIUM LEVEL 2.4 MG/DL (1.8-2.4); PHOSPHORUS LEVEL 2.2 MG/DL (2.5-4.9); POTASSIUM SERUM 4.3 MEQ/L (3.5-5.1); SODIUM LEVEL 139 MEQ/L (136-145)
[2020-08-25] MEDS ORDERED: CALCIUM GLUCONATE 1,000 MG in NS 100 ML IV ONE ×2 (06:30→20:00)
[2020-08-25] MEDS ORDERED: CALCIUM GLUCONATE 1,000MG/10ML VIAL (100MG/ML) (J0610) As Ordered ONE (06:31)
--- NOTE | 2020-08-25 07:10 | IPN ---
DATE: 08/23/2020 Ms. Ngo is now on continuous renal replacement therapy (CRRT) for her renal failure and fluid retention. There is a definite change in her mental status in that she can barely respond to commands. His vital signs show a maximum temperature (T-max) of 97.8 with a heart rate that ranges between 67-70 in a sinus rhythm, respiratory rate of 10-12 without the use of accessory muscles, who is 98-100% saturated only on two liters nasal cannula, and whose blood pressure is ranging between 89/49 to 112/52. She is continuing on Levophed. Her intake and output over the past 24 hours has been recorded as 1274 in and 1792 out for a negativity of 517 mL. She has put 361 mL out of the chest tube and there is no air leak. Her weight today is 116.7 kg compared to 117.7 kg yesterday. It was recorded yesterday that her CRRT ultrafiltration only took off 63 mL and today has taken off nearly 600 mL. On physical examination, I cannot sit her up and her lungs have scattered rhonchi. I cannot tell by her percussion note. Her eyes are shut although she will open them after calling out a number of commands. Extraocular motions are intact. Sclerae look to be slightly icteric. Pupils are equal, round, and reactive to light. Cardiac exam shows a murmur in the left upper sternal border which is a decrescendo murmur. I cannot feel her point of maximum impulse (PMI), S1 and S2 are normal. Abdomen is soft, nontender but morbidly obese. I cannot appreciate any abdominal hepatomegaly or organomegaly. Costovertebral angle (CVA) tenderness is not tested. Extremities show 4+ pretibial edema, no calf tenderness that I can elicit. There is no differential swelling of the upper extremities. Skin is warm, dry, and perfused however without cyanosis or mottling including that of the nail beds and knees. Neck is supple, there is no jugular venous distension, no subcutaneous emphysema, trachea is midline. Mouth shows her mucous membranes to be pink and moist, lips and commissures without lesions, there is no thrush. Eyes are noted above. Head is normocephalic. Neurologic shows her to be able to move all extremities but has a decreased level of consciousness. Psychiatric shows a decreased level of consciousness but able to obey commands with numerous attempts. Her white count today is down to 14.5 from a high of 22.3 yesterday. Hemoglobin and hematocrit of 9.3 and 31.0, respectively, with a platelet count of 171. Differential shows 78% neutrophils, 9% lymphocytes, 10% monocytes. There are no immature forms, no toxic granulations. Her chemistries this morning show normal electrolytes with a BUN and creatinine of 24 and 1.46, a glucose of 168, and a calcium of 8.4. Phosphorous is 3.4 with a magnesium of 2.2. A bilirubin has not been done today. There is no blood gas on her today. Her chest x-ray done portably shows her lungs fully expanded to the chest wall. There is increase in vascular markings. Chest tube is in good place. IMPRESSION: 1. Osmotic hemothorax drained from the chest tube. 2. Multiple rib fractures. 3. Hepatorenal syndrome. 4. Dehydration secondary to pleural hemothorax and lack of by mouth intake prior to admission. 5. Renal failure requiring continuous renal replacement therapy (CRRT). 6. Hypotension. 7. Nonalcoholic steatohepatitis (CAMPBELL) cirrhosis. 8. Esophageal varices status post banding and ligation. 9. Encephalopathy, probably hepatic today. 10. Morbid obesity. 11. Hypothyroidism. PLAN AND DISCUSSION: As far as the chest tube is concerned, I will leave it in there as it has put out 300+ mL. I do think that her initial presentation was one of vascular depletion secondary to her osmotic hemothorax as well as lack of by mouth intake for 3 days prior. That has now accelerated to full-blown hepatic failure and renal failure. MTDD
--- NOTE | 2020-08-25 07:14 | CCN ---
DATE: 08/24/2020 SUBJECTIVE: Ms. Ngo is seen this morning on her bedside in the intensive care unit. She remains on continuous renal replacement therapy (CRRT) and has minimal urine output. Nursing staff report that she pulled out her nasogastric tube last night and was able to take her medication by mouth this morning. She is still quite lethargic and laying with her eyes closed. 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 Nursing staff reports that she had several liquid stools after she had been given lactulose due to hepatic encephalopathy. OBJECTIVE: VITAL SIGNS: Temperature 98 degrees Fahrenheit, heart rate 76 per minute, respiratory rate 20 per minute. Blood pressure 130/62 mmHg. Oxygen saturation 94% on 2 liters oxygen. HEENT: Head atraumatic. Right-sided internal jugular vein dialysis catheter is in place. Her central venous pressure (CVP) is reported at 23. CARDIAC: Heart sounds are regular. PULMONARY: Lungs with diminished breath sounds and poor inspiratory effort. ABDOMEN: Distended with ascites. There is edema of the abdominal wall present. EXTREMITIES: No cyanosis or clubbing. Lower extremity edema is at least 2+. NEUROLOGIC: She is still lethargic and poorly responsive at present; however, nursing staff reports that she has been able to take her medications and mentating back early this morning. LABORATORY DATA: Todays lab show WBC count 8.8, hemoglobin 8.6, and hematocrit 28.1, platelets 92,000. Sodium 136, potassium 4.4, CO2 of 29, BUN 14, creatinine 0.97, glucose 114, and calcium 8.6. Ammonia level is down to 52 today. PROBLEMS: 1. Acute renal failure. Patient remains anuric. She most likely has acute tubular necrosis and kidney function has not improved so far. She remains on continuous renal replacement therapy (CRRT) and we are going to continue with the same. We will give her a trial of diuretic with Lasix 100 mg today as she is no off Levophed and likely to respond better. 2. Hypervolemia with generalized edema and ascites. We were able to remove some fluid with the continuous renal replacement therapy (CRRT) and she is no off the pressors. We will continue with the same. 3. Septic shock. She was on pressors up until early this morning. Now her blood pressure is better. She remains on Rocephin and her leukocytosis has also improved. 4. Anemia. Her anemia has worsened, but no urgent need for transfusion at present. 5. Hepatic encephalopathy. Her mentation is improving and ammonia level has improved significantly over the last 48 hours. She remains on lactulose. 6. Nutrition. I would like to start with nutrition as she has severe hypoalbuminemia and now that she can take by mouth, we will start with Nepro one can b.i.d. and see how she does. CRITICAL CARE TIME: 36 minutes spent during which no procedures were performed. BRIAN
--- NOTE | 2020-08-25 07:45 | REP ---
PORTABLE CHEST X-RAY: SINGLE VIEW HISTORY: Hemothorax. COMPARISON CHEST X-RAY: 08/21/2020 at 0138 a.m. and 08/02/2020. CT study from 08/21/2020 is also reviewed. FINDINGS: A left chest tube has been passed into the left base pleural space. The [id number] left pleural effusion noted on CT study has been evacuated. There is no visible pneumothorax. A left subclavian catheter is seen in place with its tip in the expected location of the superior vena cava. Right lung is clear. IMPRESSION: Left chest tube in placed. Improved left pleural effusion. MTDD
[2020-08-25] MEDS: cefTRIAXone SOD 2 GM in D5W MINI-BAG PLUS 50 ML IV SCH (07:59)
[2020-08-25] MEDS: PANTOPRAZOLE 40MG VIAL (C9113 PER 1) IV SCH (07:59)
[2020-08-25] MEDS ORDERED: SODIUM PHOSPHATE INJ 30 MMOL in NS 250 ML IV ONE (08:00)
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
--- NOTE | 2020-08-25 08:07 | RO ---
DATE OF OPERATION: 08/21/2020 PRE-PROCEDURE DIAGNOSIS: Hypotension secondary to hypovolemia, need for vascular access, and central pressure monitoring. POST-PROCEDURE DIAGNOSIS: Hypotension secondary to hypovolemia, need for vascular access, and central pressure monitoring. PROCEDURE: Insertion of left subclavian central line. PROCEDURE IN DETAIL: Patients infraclavicular fossa was prepped and draped in the usual sterile fashion and was infiltrated with 1% lidocaine. Subclavian vein was found on the first pass underneath the clavicle and a wire was placed with production of PVCs. Tract was dilated and a triple lumen catheter was placed by Seldinger technique. Ports were aspirated and flushed without difficulty. The catheter was secured to the chest wall with two 3-0 silk sutures. CVP was obtained which was 23 and 25. The patient tolerated the procedure well and chest x-ray is pending. [facility]
--- NOTE | 2020-08-25 10:05 | REPVR ---
PROCEDURE INFORMATION: Exam: XR Chest, 1 View Exam date and time: 08/25/2020 9:46 AM Age: 65 years old Clinical indication: Device placement; Other: Chest tube placement TECHNIQUE: Imaging protocol: XR of the chest Views: 1 view. COMPARISON: CR PORTABLE CHEST X-RAY 08/24/2020 6:10 AM FINDINGS: Limitations: Multiple EKG leads are superimposed on the chest. Tubes, catheters and devices: Right IJ dialysis catheter reaches the mid superior vena cava. A left subclavian central venous catheter is present, with its tip overlying the region of the distal superior vena cava. A left chest tube is observed with the tip lateral to the hilum similar to the prior study. Lungs: There is poor ventilation of the lungs, accounting for mild diffuse increase in pulmonary parenchymal density. There is increasing nonspecific streaking in the left lung base, consistent with atelectasis or pneumonia. Pleural space: There is a moderate left pleural fluid collection present. Heart/Mediastinum: Unremarkable. No cardiomegaly. Bones/joints: Unremarkable. IMPRESSION: 1. A left chest tube is observed with the tip lateral to the hilum similar to the prior study. 2. There is a moderate left pleural fluid collection present. 3. There is increasing nonspecific streaking in the left lung base, consistent with atelectasis or pneumonia. Electronically signed by: Luis Garcias On 08/25/2020 10:05:32 AM
[2020-08-25] MEDS: oxyCODONE 5MG TAB PO PRN (12:25)
[2020-08-25] MEDS: HYDROMORPHONE HCL 0.5 MG/ 0.5 ML SYRINGE (J1170 PER 1) IV PRN ×2 (14:36→23:00)
[2020-08-25 18:13] LABS: IONIZED CALCIUM 4.5 MG/DL (4.5-5.3)
[2020-08-25 18:16] LABS: HEMATOCRIT 27.8 % (36.0-47.0); HEMOGLOBIN 8.3 g/dl (12.0-15.5); MEAN CORPUSCULAR HEMOGLOBIN 27.3 pg (27.0-33.0); MEAN CORPUSCULAR HGB CONC 29.9 g/dl (32.0-36.5); MEAN CORPUSCULAR VOLUME 91.4 fl (80.0-96.0); RED BLOOD COUNT 3.04 10^6/uL (4.00-5.40); WHITE BLOOD COUNT 5.8 10^3/uL (4.0-10.0)
[2020-08-25 18:19] LABS: PLATELET COUNT, AUTOMATED 84 10^3/uL (150-450)
[2020-08-25 18:33] LABS: BLOOD UREA NITROGEN 6 MG/DL (7-18); CALCIUM LEVEL 8.3 MG/DL (8.8-10.2); CARBON DIOXIDE LEVEL 29 MEQ/L (21-32); CHLORIDE LEVEL 105 MEQ/L (98-107); CREATININE FOR GFR 0.62 MG/DL (0.55-1.30); GLOMERULAR FILTRATION RATE > 60.0 (>45); GLUCOSE, FASTING 127 MG/DL (70-100); MAGNESIUM LEVEL 2.5 MG/DL (1.8-2.4); PHOSPHORUS LEVEL 2.5 MG/DL (2.5-4.9); POTASSIUM SERUM 4.6 MEQ/L (3.5-5.1); SODIUM LEVEL 138 MEQ/L (136-145)
[2020-08-26] VITALS (25 sets, daily range): BP systolic 98–148; BP diastolic 50–90; O2SAT 96
[2020-08-26] MEDS: LEVALBUTEROL 1.25 MG/0.5 ML CONCENTRATE NEB NEB SCH ×4 (01:01→19:50)
[2020-08-26] MEDS: LACTULOSE 20 GM/30 ML SYRUP UD PO SCH ×5 (04:00→19:52)
[2020-08-26 05:23] LABS: IONIZED CALCIUM 4.5 MG/DL (4.5-5.3)
[2020-08-26 05:28] LABS: HEMOGLOBIN 8.2 g/dl (12.0-15.5); MEAN CORPUSCULAR HEMOGLOBIN 27.7 pg (27.0-33.0); MEAN CORPUSCULAR HGB CONC 30.4 g/dl (32.0-36.5); MEAN CORPUSCULAR VOLUME 91.2 fl (80.0-96.0); PLATELET COUNT, AUTOMATED 89 10^3/uL (150-450); RED BLOOD COUNT 2.96 10^6/uL (4.00-5.40); WHITE BLOOD COUNT 5.7 10^3/uL (4.0-10.0)
[2020-08-26] MEDS: HYDROMORPHONE HCL 0.5 MG/ 0.5 ML SYRINGE (J1170 PER 1) IV PRN ×2 (05:48→12:30)
[2020-08-26 05:52] LABS: BLOOD UREA NITROGEN 5 MG/DL (7-18); CALCIUM LEVEL 7.8 MG/DL (8.8-10.2); CARBON DIOXIDE LEVEL 29 MEQ/L (21-32); CHLORIDE LEVEL 107 MEQ/L (98-107); CREATININE FOR GFR 0.64 MG/DL (0.55-1.30); GLOMERULAR FILTRATION RATE > 60.0 (>45); GLUCOSE, FASTING 98 MG/DL (70-100); MAGNESIUM LEVEL 2.3 MG/DL (1.8-2.4); PHOSPHORUS LEVEL 1.6 MG/DL (2.5-4.9); POTASSIUM SERUM 4.3 MEQ/L (3.5-5.1); SODIUM LEVEL 140 MEQ/L (136-145)
[2020-08-26] MEDS: HumaLOG INSULIN (NovoLOG) PER UNIT SC SCH ×3 (06:00→18:00)
[2020-08-26] MEDS ORDERED: CALCIUM GLUCONATE 1,000 MG, VIAL MATE ADAPTER 1 EACH in NS 100 ML IV ONE (06:00)
[2020-08-26] MEDS: LEVOTHYROXINE 25MCG TABLET (0.025MG) PO SCH (06:41)
[2020-08-26] MEDS: SODIUM CHLORIDE 0.9% INJ 10 ML SYR IV SCH ×2 (06:42→13:57)
[2020-08-26] MEDS ORDERED: SODIUM PHOSPHATE INJ 30 MMOL in NS 250 ML IV ONE (07:30)
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
[2020-08-26] MEDS: cefTRIAXone SOD 2 GM in D5W MINI-BAG PLUS 50 ML IV SCH (07:55)
--- NOTE | 2020-08-26 08:31 | CCN ---
DATE: 08/25/2020 SUBJECTIVE: Mrs. Ngo was seen this morning at her bedside in the Intensive Care Unit. She is awake today and talking, but nursing staff reports that at times she is confused. CRRT is in progress at her bedside and she is still not making any urine. Yesterday we gave her 100 mg Lasix, but she has minimal urine output. Her CVP is reported 23 this morning and she has not required any pressors. PHYSICAL EXAMINATION: Temperature 96.8 degrees Fahrenheit, heart rate 85 per minute, respiratory rate 18 per minute. Blood pressure 128/58 mmHg and oxygen saturation 95% on 2 liters of oxygen. Head: Atraumatic. Oral mucosa somewhat dry. Neck veins are difficult to be assessed. Right internal jugular vein dialysis catheter is in place. Heart: Sounds are regular. Lungs: With diminished breath sounds on dependent areas Abdomen: Soft, mild tenderness in the epigastric area is present. She has edema of the abdominal wall present and also has ascites. Extremities: Without any cyanosis or clubbing. Lower extremity edema is slightly improved. Neurologically: She is more awake and able to answer simple questions, but still not back to her baseline mentation. LABORATORY DATA: Todays labs showed: WBC count 6.2, hemoglobin 8, hematocrit 26.5, platelets 82,000. Sodium 139, potassium 4.3, CO2 30, BUN 7 and creatinine 0.6. Glucose 87 and calcium 7.8. Phosphorus is 2.2 and magnesium 2.4. Her ammonia level was down to 52 yesterday. PROBLEMS: 1. Oliguric acute renal failure: Patient still oliguric and remains on CRRT. We will continue with the same. She is not a very stable patient for regular dialysis due to low blood pressure and hypervolemia. We are removing about 50 mL per hour of fluid with 7781-0653 mL negative fluid balance in 24 hours. She is tolerating it well so far. 2. Hypervolemia and peripheral edema: She is quite volume overloaded with ascites and cirrhosis. Slow fluid removal is working and we are removing about 1990-0421 mL per day. 3. Anemia: Her anemia is worsening gradually though she does not have any acute blood loss visible. She is likely to require transfusion if her anemia gets any worse. 4. Cirrhosis of liver with recurrent ascites: She does have ascites and peripheral edema. At this point there is no emergent indication for a paracentesis and we will continue with fluid removal. 5. Hepatic encephalopathy: Patient remains on lactulose and her ammonia level has improved along with her mentation. 6. Left hemithorax: Patient had a chest tube in place which is still draining more than 300 mL of liquid per day. Twenty-seven minutes of critical care time spent at the bedside during which no procedures were performed. MTDD
[2020-08-26] MEDS: PANTOPRAZOLE 40MG VIAL (C9113 PER 1) IV SCH (09:35)
[2020-08-26] MEDS ORDERED: FUROSEMIDE 100MG/10ML VIAL (J1940) IV ONE (10:45)
[2020-08-26] MEDS ORDERED: SODIUM CHLORIDE 0.9% INJ 10 ML SYR IV PRN (11:30)
[2020-08-26 18:36] LABS: IONIZED CALCIUM 4.6 MG/DL (4.5-5.3)
[2020-08-26 18:44] LABS: HEMATOCRIT 27.6 % (36.0-47.0); HEMOGLOBIN 8.2 g/dl (12.0-15.5); MEAN CORPUSCULAR HEMOGLOBIN 27.6 pg (27.0-33.0); MEAN CORPUSCULAR HGB CONC 29.7 g/dl (32.0-36.5); MEAN CORPUSCULAR VOLUME 92.9 fl (80.0-96.0); RED BLOOD COUNT 2.97 10^6/uL (4.00-5.40); WHITE BLOOD COUNT 5.1 10^3/uL (4.0-10.0)
[2020-08-26 18:48] LABS: PLATELET COUNT, AUTOMATED 77 10^3/uL (150-450)
[2020-08-26 19:11] LABS: BLOOD UREA NITROGEN 3 MG/DL (7-18); CALCIUM LEVEL 8.2 MG/DL (8.8-10.2); CARBON DIOXIDE LEVEL 29 MEQ/L (21-32); CHLORIDE LEVEL 106 MEQ/L (98-107); CREATININE FOR GFR 0.61 MG/DL (0.55-1.30); GLOMERULAR FILTRATION RATE > 60.0 (>45); GLUCOSE, FASTING 121 MG/DL (70-100); MAGNESIUM LEVEL 2.3 MG/DL (1.8-2.4); PHOSPHORUS LEVEL 2.3 MG/DL (2.5-4.9); POTASSIUM SERUM 4.2 MEQ/L (3.5-5.1); SODIUM LEVEL 139 MEQ/L (136-145)
[2020-08-26] MEDS ORDERED: CALCIUM GLUCONATE 1,000 MG in NS 100 ML IV ONE (19:30)
[2020-08-26] MEDS ORDERED: NS IV ONE (21:00)
[2020-08-26] MEDS ORDERED: SODIUM PHOSPHATE IV ONE (21:00)
[2020-08-27] VITALS (25 sets, daily range): BP systolic 101–144; BP diastolic 48–75; O2SAT 96
[2020-08-27] MEDS: HYDROMORPHONE HCL 0.5 MG/ 0.5 ML SYRINGE (J1170 PER 1) IV PRN ×2 (01:35→19:27)
[2020-08-27] MEDS: LEVALBUTEROL 1.25 MG/0.5 ML CONCENTRATE NEB NEB SCH ×4 (02:03→20:10)
[2020-08-27] MEDS: LACTULOSE 20 GM/30 ML SYRUP UD PO SCH ×7 (03:17→23:13)
[2020-08-27 04:38] LABS: IONIZED CALCIUM 4.3 MG/DL (4.5-5.3)
[2020-08-27 04:44] LABS: HEMATOCRIT 27.2 % (36.0-47.0); HEMOGLOBIN 8.2 g/dl (12.0-15.5); MEAN CORPUSCULAR HEMOGLOBIN 27.6 pg (27.0-33.0); MEAN CORPUSCULAR HGB CONC 30.1 g/dl (32.0-36.5); MEAN CORPUSCULAR VOLUME 91.6 fl (80.0-96.0); RED BLOOD COUNT 2.97 10^6/uL (4.00-5.40); WHITE BLOOD COUNT 5.1 10^3/uL (4.0-10.0)
[2020-08-27 04:51] LABS: PLATELET COUNT, AUTOMATED 71 10^3/uL (150-450)
[2020-08-27 05:08] LABS: BLOOD UREA NITROGEN 2 MG/DL (7-18); CALCIUM LEVEL 7.7 MG/DL (8.8-10.2); CARBON DIOXIDE LEVEL 28 MEQ/L (21-32); CHLORIDE LEVEL 107 MEQ/L (98-107); CREATININE FOR GFR 0.56 MG/DL (0.55-1.30); GLOMERULAR FILTRATION RATE > 60.0 (>45); GLUCOSE, FASTING 99 MG/DL (70-100); MAGNESIUM LEVEL 2.3 MG/DL (1.8-2.4); PHOSPHORUS LEVEL 2.3 MG/DL (2.5-4.9); POTASSIUM SERUM 4.3 MEQ/L (3.5-5.1); SODIUM LEVEL 140 MEQ/L (136-145)
[2020-08-27] MEDS: HumaLOG INSULIN (NovoLOG) PER UNIT SC SCH ×5 (05:24→23:57)
[2020-08-27] MEDS ORDERED: NS IV ONE (05:30)
[2020-08-27] MEDS ORDERED: SODIUM PHOSPHATE IV ONE (05:30)
[2020-08-27] MEDS: LEVOTHYROXINE 25MCG TABLET (0.025MG) PO SCH (05:58)
[2020-08-27] MEDS: CALCIUM GLUCONATE 1,000 MG, VIAL MATE ADAPTER 1 EACH in NS 100 ML IV SCH ×2 (05:58→06:58)
--- NOTE | 2020-08-27 07:17 | CCN ---
DATE: 08/26/2020 Ms. Ngo is seen this morning in intensive care unit on her bedside. Continuous renal replacement therapy (CRRT) is in progress on her bedside. She is awake but very confused and disoriented. She could not tell me her birthday, her address, or today's date. She did not know where she was present at this time. Nursing staff report poor oral intake. She still has almost no urine output. She continues to have some liquid stools and receives lactulose as needed. PHYSICAL EXAMINATION: Temperature 97.0 degrees Fahrenheit, heart rate 82 per minute, respiratory rate 14 per minute, blood pressure 112/70 mm of mercury, and oxygen saturation 94% on 2 liters oxygen. Her head is atraumatic. Neck is supple and jugular venous distention (JVD) difficult to be assessed. A dialysis catheter is present in the right internal jugular vein. Oral mucosa is somewhat dry. Heart sounds are regular and lungs with diminished breath sounds. She has poor inspiratory effort. Abdomen is soft, and bowel sounds are present. There is edema of lower abdominal wall. Extremities have no cyanosis or clubbing. Lower extremity edema is 2+ on the thighs. Neurologically, she is awake but confused and disoriented. Skin has no rash or ulcers. Today's labs show WBC count 5.7, hemoglobin 8.2, and hematocrit 27, platelets 89,000. Sodium 140, potassium 4.3, CO2 of 29, BUN 5, creatinine 0.64, calcium 7.8, and phosphorus 1.6. Ammonia level is 46. PROBLEMS: 1. Acute renal failure. Patient remains oliguric and minimal urine output. She did not respond to intravenous Lasix given a couple of days ago. We will give her another try of diuretic today. Her blood pressure is better, and I am optimistic that she will start making some urine. 2. Anemia. Her anemia is unchanged, and she has not required any transfusion at this point. 3. Hypervolemia. Patient has chronic leg edema. She also has ascites with a history of cirrhosis. Her blood pressure is soft, so we will continue with CRRT in order to remove fluid. At present, we are removing about 1.5 liters every day. 4. Hepatic encephalopathy. Patient has known history of cirrhosis of liver with recurrent hepatic encephalopathy. Her ammonia level has improved; however, her mentation has not improved as yet. 5. Left-sided hemothorax. Patient had a chest tube placed and still draining some fluid. Dr. Hood will decide to remove the fluid at appropriate time. 6. Blood loss anemia. She had transfusions initially when she came with hypotension and severe anemia; however, at present she has not required further transfusion. I will defer to hospitalist service to make a decision about further transfusion. There was 26 minutes of critical time spent, during which no procedures were performed. Her CRRT orders are being renewed. BRIAN
--- NOTE | 2020-08-27 07:29 | REP ---
PORTABLE CHEST X-RAY CLINICAL: Follow up chest tube, hemothorax. COMPARISON: 08/23/2020 FINDINGS: Right IJ line with tip in the right atrium unchanged. Left-sided chest tube in stable position. Left subclavian catheter with tip in the SVC/right atrium stable. Mediastinum and cardiac silhouette are within normal limits and stable. The lung kent are essentially unchanged, and subtle left basilar opacity may represent mild pleuroparenchymal changes, and small elements of atelectasis are again noted. No definite left-sided effusion or obvious pneumothorax appreciated. Right hemithorax is clear. Skeletal structures are intact. IMPRESSION: * Lines and tubes in satisfactory stable position. * Subtle opacity in the left mid to lower lung zone may represent residual pleuroparenchymal changes similar to prior examination. * No obvious effusion or pneumothorax. * No obvious new acute process. MTDD
[2020-08-27] MEDS ORDERED: LIDOCAINE 1% MDV 20ML VIAL As Ordered ONE (07:56)
[2020-08-27] MEDS: PANTOPRAZOLE 40MG VIAL (C9113 PER 1) IV SCH (08:11)
[2020-08-27] MEDS: cefTRIAXone SOD 2 GM in D5W MINI-BAG PLUS 50 ML IV SCH (08:11)
--- NOTE | 2020-08-27 08:52 | REP ---
INDICATION: hemothorax COMPARISON: 08/26/2020 TECHNIQUE: Portable AP and lateral views FINDINGS: Right IJ line in satisfactory stable position. Previously noted left subclavian catheter and left chest tube have been removed. Mediastinum and cardiac silhouette are stable. Pleuroparenchymal changes at the left lower lung zone again noted and unchanged. No new acute process identified. No pneumothorax. IMPRESSION: 1. Lines and tubes as above. 2. Pleuroparenchymal changes involving the left hemithorax similar to prior examination. 3. No new acute process identified. <Electronically signed by Michael Vincent > 08/27/20 0815
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
--- NOTE | 2020-08-27 14:40 | IPN ---
NEPHROLOGY PROGRESS NOTE DATE: 08/27/2020 SUBJECTIVE: Ms. Ngo is seen this morning at her bedside in the Intensive Care Unit. She is awake and more alert today. She was able to tell me the correct date today and also was able to tell me her address and date of without any problem. She denies any abdominal pain, nausea or vomiting. Her oral intake has been poor. CRRT is in progress which has been functioning and we are able to remove some fluid. She is maintaining her blood pressure without need for pressors. Her central line was removed yesterday and she is now waiting for PICC line placement. PHYSICAL EXAMINATION: Temperature 96.5 degrees Fahrenheit, heart rate 84 per minute and respiratory rate 18 per minute. Blood pressure 115/50 mmHg and oxygen saturation 96% on 2 liters of oxygen. Head: Atraumatic. Neck: Supple and JVD difficult to assess. Dialysis catheter is present in the right internal jugular vein. Heart: Sounds are regular and there is no pericardial friction rub. Lungs: With diminished breath sounds at bases. Abdomen: Obese, soft and nontender. Mild ascites and abdominal wall edema is present. Extremities: Without any cyanosis or clubbing. Lower extremity edema is 3+ bilaterally. Neurologically: She is more alert and able to answer questions appropriately. LABORATORY DATA: Todays labs showed: WBC count 5.1, hemoglobin 8.2 and hematocrit 27.2, platelets 71,000. Sodium 140, potassium 4.3, CO2 28, BUN only 2 and creatinine 0.56. Glucose 99 and calcium 7.7. Phosphorus is 2.3 and magnesium also 2.3. PROBLEMS/PLAN: 1. Acute oliguric renal failure: Patient still has no urine output and she did not respond to intravenous Lasix yesterday. We are able to remove some fluid with CRRT and will continue with the same. Her electrolytes are all stable at present. 2. Cirrhosis of liver and ascites: She also had encephalopathy which has improved. Ascites is also gradually improving. At present there is no emergent indication for a paracentesis. 3. Hypervolemia and peripheral edema: She still has significant peripheral edema and we are going to try to increase the fluid removal to 100 mL per hour with CRRT and we will see how she tolerates. 4. Protein calorie malnutrition: She has very low serum protein and albumin level. Patient is being encouraged to drink her Nepro. I hope that her diet can be advanced. 5. Pleural effusion and congestive heart failure: Her volume status remains decompensated. Blood pressure is low so she is not likely to tolerate regular hemodialysis. She remains on CRRT and will continue with the same. Her CRRT orders are being renewed. 6. Anemia: No change for the last couple of days. Anemia is stable through not improved. No urgent need for a transfusion at present. Thirty-two minutes of Critical Care Time spent during which no procedures were performed. BRIAN
--- NOTE | 2020-08-27 16:10 | REP ---
PROCEDURE NAME: PICC LINE INSERTION W/SITERITE SEDATION: None CLINICAL INFORMATION: hypotension, patient on cvvhd, vascular access PHYSICIAN: Lakisha Dumas PROCEDURE DESCRIPTION: The procedure was performed by HERNAN Yi, under the direct supervision of Dr. Cooper. This procedure was performed at the bedside. The risks and benefits of the procedure were explained to the patient as well as the patient's healthcare proxy, and informed consent was obtained verbally from both the patient and healthcare proxy. Directly prior to the start of the procedure a formal time-out was completed in the procedure room. The right lateral brachial vein was localized using ultrasound guidance. The skin was prepped and draped in sterile fashion. 3 mL of 1% lidocaine 10 milligrams/milliliter was used as a local anesthetic. Using ultrasound guidance the right lateral brachial vein was cannulated, and a 0.018 guidewire was inserted and advanced to the level of SVC using fluoroscopic guidance. The needle was removed and a 5.5 Luxembourger dilator and peel-away sheath was inserted over the guidewire. A 5.5 Luxembourger dual lumen catheter was cut to a length of 35 cm. The dilator was removed and the catheter was inserted over the guidewire with the tip ending at the level of the SVC. The peel-away sheath was removed and the catheter was flushed with heparinized saline as per hospital protocol. The catheter was affixed to the skin and a sterile dressing was applied. The patient tolerated the procedure well and there were no immediate complications. ESTIMATED BLOOD LOSS: Less than 5 mL COMPLICATIONS: None CONCLUSION: Successful PICC line insertion into the right lateral brachial vein <Electronically signed by Fox Cooper > 08/27/20 [id number]
[2020-08-27 18:28] LABS: IONIZED CALCIUM 4.4 MG/DL (4.5-5.3)
[2020-08-27 18:31] LABS: HEMATOCRIT 27.6 % (36.0-47.0); HEMOGLOBIN 8.3 g/dl (12.0-15.5); MEAN CORPUSCULAR HEMOGLOBIN 27.5 pg (27.0-33.0); MEAN CORPUSCULAR HGB CONC 30.1 g/dl (32.0-36.5); MEAN CORPUSCULAR VOLUME 91.4 fl (80.0-96.0); RED BLOOD COUNT 3.02 10^6/uL (4.00-5.40); WHITE BLOOD COUNT 6.7 10^3/uL (4.0-10.0)
[2020-08-27] MEDS: SODIUM CHLORIDE 0.9% INJ 10 ML SYR IV SCH (18:34)
[2020-08-27 18:35] LABS: PLATELET COUNT, AUTOMATED 99 10^3/uL (150-450)
[2020-08-27 18:50] LABS: BLOOD UREA NITROGEN 2 MG/DL (7-18); CALCIUM LEVEL 8.4 MG/DL (8.8-10.2); CARBON DIOXIDE LEVEL 27 MEQ/L (21-32); CHLORIDE LEVEL 106 MEQ/L (98-107); CREATININE FOR GFR 0.56 MG/DL (0.55-1.30); GLOMERULAR FILTRATION RATE > 60.0 (>45); GLUCOSE, FASTING 117 MG/DL (70-100); MAGNESIUM LEVEL 2.3 MG/DL (1.8-2.4); PHOSPHORUS LEVEL 1.9 MG/DL (2.5-4.9); SODIUM LEVEL 139 MEQ/L (136-145)
[2020-08-27] MEDS ORDERED: CALCIUM GLUCONATE 1,000 MG in D5W MINI-BAG PLUS 100 ML IV ONE (20:00)
[2020-08-27] MEDS ORDERED: SODIUM PHOSPHATE INJ 30 MMOL in D5W 500 ML IV ONE ×2 (21:00→22:00)
[2020-08-28] VITALS (24 sets, daily range): BP systolic 98–163; BP diastolic 51–86
[2020-08-28] MEDS: HYDROMORPHONE HCL 0.5 MG/ 0.5 ML SYRINGE (J1170 PER 1) IV PRN ×4 (00:09→22:34)
[2020-08-28] MEDS: LEVALBUTEROL 1.25 MG/0.5 ML CONCENTRATE NEB NEB SCH ×4 (01:29→20:07)
[2020-08-28] MEDS ORDERED: diphenhydrAMINE 50MG/ML VIAL (J1200) IM ONE (02:30)
[2020-08-28] MEDS ORDERED: diphenhydrAMINE 50MG/ML VIAL (J1200) IV ONE ×2 (02:45→21:15)
[2020-08-28] MEDS: LACTULOSE 20 GM/30 ML SYRUP UD PO SCH ×5 (03:04→20:00)
[2020-08-28] MEDS: LEVOTHYROXINE 25MCG TABLET (0.025MG) PO SCH (05:04)
[2020-08-28 05:18] LABS: IONIZED CALCIUM 4.5 MG/DL (4.5-5.3)
[2020-08-28 05:31] LABS: HEMATOCRIT 26.7 % (36.0-47.0); HEMOGLOBIN 8.3 g/dl (12.0-15.5); MEAN CORPUSCULAR HEMOGLOBIN 27.9 pg (27.0-33.0); MEAN CORPUSCULAR HGB CONC 31.1 g/dl (32.0-36.5); MEAN CORPUSCULAR VOLUME 89.9 fl (80.0-96.0); RED BLOOD COUNT 2.97 10^6/uL (4.00-5.40); WHITE BLOOD COUNT 6.4 10^3/uL (4.0-10.0)
[2020-08-28 05:33] LABS: PLATELET COUNT, AUTOMATED 92 10^3/uL (150-450)
[2020-08-28] MEDS: HumaLOG INSULIN (NovoLOG) PER UNIT SC SCH ×3 (06:00→18:00)
[2020-08-28] MEDS: SODIUM CHLORIDE 0.9% INJ 10 ML SYR IV SCH ×2 (06:00→18:02)
[2020-08-28 06:37] LABS: BLOOD UREA NITROGEN 3 MG/DL (7-18); CALCIUM LEVEL 7.8 MG/DL (8.8-10.2); CARBON DIOXIDE LEVEL 28 MEQ/L (21-32); CHLORIDE LEVEL 107 MEQ/L (98-107); CREATININE FOR GFR 0.53 MG/DL (0.55-1.30); GLOMERULAR FILTRATION RATE > 60.0 (>45); GLUCOSE, FASTING 90 MG/DL (70-100); MAGNESIUM LEVEL 2.3 MG/DL (1.8-2.4); PHOSPHORUS LEVEL 2.1 MG/DL (2.5-4.9); POTASSIUM SERUM 4.1 MEQ/L (3.5-5.1); SODIUM LEVEL 140 MEQ/L (136-145)
[2020-08-28] MEDS ORDERED: CALCIUM GLUCONATE 1,000 MG in NS 100 ML IV ONE ×2 (07:00→18:30)
[2020-08-28] MEDS: cefTRIAXone SOD 2 GM in D5W MINI-BAG PLUS 50 ML IV SCH (08:27)
--- NOTE | 2020-08-28 08:38 | REP ---
INDICATION: hemothorax COMPARISON: 08/27/2020 TECHNIQUE: AP and cross-table lateral FINDINGS: Right IJ line with tip in the SVC unchanged. New right PICC line with catheter extending into the SVC. Mediastinum and cardiac silhouette are stable. Pleural thickening at the left base remains stable. No pneumothorax identified. Hazy asymmetric opacification of the left hemithorax along with suspected left lower lobe consolidation/partial collapse represents new findings from prior examination. Skeletal structures unchanged and posterior left rib fractures are better visualized than prior examination. IMPRESSION: 1. Right-sided PICC line with tip in the SVC. 2. Chronic stable appearance to the pleural changes at the left base. 3. New generalized opacification of the left hemithorax along with suspected left lower lobe consolidation/partial collapse. <Electronically signed by Michael Vincent > 08/28/20 [id number]
[2020-08-28] MEDS ORDERED: SODIUM PHOSPHATE INJ 30 MMOL in NS 500 ML IV ONE (09:00)
[2020-08-28] MEDS: PANTOPRAZOLE 40MG VIAL (C9113 PER 1) IV SCH (09:21)
[2020-08-28] MEDS ORDERED: SODIUM CHLORIDE 0.9% INJ 10 ML SYR IV PRN (11:30)
--- NOTE | 2020-08-28 15:39 | REP ---
PORTABLE CHEST X-RAY CLINICAL: Follow-up effusion. COMPARISON: 08/25/2020. FINDINGS: Left-sided chest tube is in stable position and [id number] left pleural effusion with subtle left lower lobe airspace disease is again noted and similar to prior examination. No evidence for pneumothorax. Right internal jugular (IJ) line and left subclavian catheter in stable position with the superior vena cava (SVC) and right atrium respectively. The mediastinum and cardiac silhouette are stable and within normal limits. The right hemithorax is clear. Skeletal structures are intact. IMPRESSION: * Stable appearance to the lines and tubes. * [id number] left pleural effusion and left lower lobe airspace disease similar to prior examination. MTDD
[2020-08-28 17:49] LABS: IONIZED CALCIUM 4.5 MG/DL (4.5-5.3)
[2020-08-28 17:56] LABS: HEMATOCRIT 27.3 % (36.0-47.0); HEMOGLOBIN 8.4 g/dl (12.0-15.5); MEAN CORPUSCULAR HEMOGLOBIN 27.8 pg (27.0-33.0); MEAN CORPUSCULAR HGB CONC 30.8 g/dl (32.0-36.5); MEAN CORPUSCULAR VOLUME 90.4 fl (80.0-96.0); PLATELET COUNT, AUTOMATED 107 10^3/uL (150-450); RED BLOOD COUNT 3.02 10^6/uL (4.00-5.40); WHITE BLOOD COUNT 6.5 10^3/uL (4.0-10.0)
[2020-08-28 18:28] LABS: BLOOD UREA NITROGEN 2 MG/DL (7-18); CALCIUM LEVEL 8.2 MG/DL (8.8-10.2); CARBON DIOXIDE LEVEL 28 MEQ/L (21-32); CHLORIDE LEVEL 106 MEQ/L (98-107); CREATININE FOR GFR 0.56 MG/DL (0.55-1.30); GLOMERULAR FILTRATION RATE > 60.0 (>45); GLUCOSE, FASTING 81 MG/DL (70-100); MAGNESIUM LEVEL 2.3 MG/DL (1.8-2.4); PHOSPHORUS LEVEL 2.8 MG/DL (2.5-4.9); POTASSIUM SERUM 4.1 MEQ/L (3.5-5.1); SODIUM LEVEL 140 MEQ/L (136-145)
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
[2020-08-28] MEDS ORDERED: HALOPERIDOL 5MG/ML VIAL (J1630 PER 1) IM STA (23:36)
[2020-08-29] VITALS (28 sets, daily range): BP systolic 93–140; BP diastolic 46–100
[2020-08-29] MEDS ORDERED: LORazepam 2 MG/ML VIAL As Ordered ONE (00:45)
[2020-08-29] MEDS ORDERED: LORazepam 2 MG/ML VIAL IV STA (00:48)
[2020-08-29] MEDS: LEVALBUTEROL 1.25 MG/0.5 ML CONCENTRATE NEB NEB SCH ×4 (01:33→19:29)
[2020-08-29] MEDS: LACTULOSE 20 GM/30 ML SYRUP UD PO SCH ×6 (04:00→20:00)
[2020-08-29 05:54] LABS: IONIZED CALCIUM 4.6 MG/DL (4.5-5.3)
[2020-08-29] MEDS: HumaLOG INSULIN (NovoLOG) PER UNIT SC SCH ×4 (06:00→18:00)
[2020-08-29] MEDS: LEVOTHYROXINE 25MCG TABLET (0.025MG) PO SCH (06:00)
[2020-08-29 06:02] LABS: HEMATOCRIT 26.7 % (36.0-47.0); MEAN CORPUSCULAR HEMOGLOBIN 27.6 pg (27.0-33.0); MEAN CORPUSCULAR VOLUME 92.1 fl (80.0-96.0); WHITE BLOOD COUNT 4.6 10^3/uL (4.0-10.0)
[2020-08-29 06:04] LABS: PLATELET COUNT, AUTOMATED 78 10^3/uL (150-450)
[2020-08-29 06:29] LABS: BLOOD UREA NITROGEN 1 MG/DL (7-18); CALCIUM LEVEL 7.8 MG/DL (8.8-10.2); CARBON DIOXIDE LEVEL 30 MEQ/L (21-32); CHLORIDE LEVEL 107 MEQ/L (98-107); CREATININE FOR GFR 0.52 MG/DL (0.55-1.30); GLOMERULAR FILTRATION RATE > 60.0 (>45); GLUCOSE, FASTING 77 MG/DL (70-100); MAGNESIUM LEVEL 2.2 MG/DL (1.8-2.4); PHOSPHORUS LEVEL 2.1 MG/DL (2.5-4.9); SODIUM LEVEL 141 MEQ/L (136-145)
[2020-08-29] MEDS: SODIUM CHLORIDE 0.9% INJ 10 ML SYR IV SCH ×3 (06:36→18:19)
[2020-08-29] MEDS ORDERED: CALCIUM GLUCONATE 1,000 MG in NS MINI-BAG PLUS 100 ML IV ONE (07:00)
[2020-08-29] MEDS: PANTOPRAZOLE 40MG VIAL (C9113 PER 1) IV SCH (08:25)
--- NOTE | 2020-08-29 08:27 | REPVR ---
PROCEDURE INFORMATION: Exam: XR Chest, 1 View Exam date and time: 08/29/2020 7:50 AM Age: 65 years old Clinical indication: Other: Hemothorax; Additional info: Post chest tube TECHNIQUE: Imaging protocol: XR of the chest Views: 1 view. COMPARISON: CR Chest, 2 view PA, Lat 08/28/2020 7:55 AM FINDINGS: Tubes, catheters and devices: Right PICC and right internal jugular central venous catheter is in stable position. Lungs: Bilateral perihilar and left base opacities stable. Pleural space: Small moderate left pleural effusion. Heart/Mediastinum: Unremarkable. No cardiomegaly. Bones/joints: Unremarkable. IMPRESSION: No significant interval change Electronically signed by: Dalton Palafox On 08/29/2020 08:27:34 AM
[2020-08-29] MEDS ORDERED: SODIUM PHOSPHATE INJ 30 MMOL in NS 250 ML IV ONE ×4 (10:00)
[2020-08-29] MEDS ORDERED: PIPERACILLIN/TAZOBACTAM SOD 3.375 GM in D5W MINI-BAG PLUS 50 ML IV SCH (14:45)
[2020-08-29] MEDS: PIPERACILLIN/TAZOBACTAM SOD 4.5 GM in D5W MINI-BAG PLUS 50 ML IV SCH (15:40)
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
[2020-08-29 16:55] LABS: BILIRUBIN, URINE MANUAL NEGATIVE (NEGATIVE); GLUCOSE, URINE (UA) MANUAL NEGATIVE (NEGATIVE); KETONE, URINE MANUAL NEGATIVE (NEGATIVE); UROBILINOGEN, URINE MANUAL NORMAL (NORMAL)
[2020-08-29 17:15] LABS: RBC, URINE 15-20 /hpf (0-3); SQUAMOUS EPITHELIAL CELL URINE SMALL AMOUNT /hpf (SMALL AMT)
[2020-08-29 17:16] LABS: BACTERIA, URINE MOD AMOUNT
[2020-08-29 17:19] LABS: TRANSITIONAL EPI CELLS, URINE SMALL AMOUNT /hpf
[2020-08-29] MEDS ORDERED: FAT EMULSION IV 20% 500 ML IV SCH (18:00)
[2020-08-29] MEDS ORDERED: MAGNESIUM SULFATE IV SCH ×4 (18:00)
[2020-08-29] MEDS ORDERED: [UNRECOGNIZED DRUG - OTHER] IV SCH ×4 (18:00)
[2020-08-29] MEDS ORDERED: SODIUM PHOSPHATE IV SCH ×4 (18:00)
[2020-08-29 18:05] LABS: HEMATOCRIT 27.4 % (36.0-47.0); HEMOGLOBIN 8.3 g/dl (12.0-15.5); MEAN CORPUSCULAR HEMOGLOBIN 27.7 pg (27.0-33.0); MEAN CORPUSCULAR HGB CONC 30.3 g/dl (32.0-36.5); MEAN CORPUSCULAR VOLUME 91.3 fl (80.0-96.0); WHITE BLOOD COUNT 4.7 10^3/uL (4.0-10.0)
[2020-08-29 18:09] LABS: PLATELET COUNT, AUTOMATED 89 10^3/uL (150-450)
[2020-08-29 18:48] LABS: ALBUMIN 2.5 GM/DL (3.2-5.2); ALT/SGPT 16 U/L (12-78); BILIRUBIN,TOTAL 2.1 MG/DL (0.2-1.0); BLOOD UREA NITROGEN 2 MG/DL (7-18); CALCIUM LEVEL 8.1 MG/DL (8.8-10.2); CARBON DIOXIDE LEVEL 29 MEQ/L (21-32); CHLORIDE LEVEL 106 MEQ/L (98-107); CREATININE FOR GFR 0.55 MG/DL (0.55-1.30); GLOMERULAR FILTRATION RATE > 60.0 (>45); GLUCOSE, FASTING 83 MG/DL (70-100); MAGNESIUM LEVEL 2.3 MG/DL (1.8-2.4); PHOSPHORUS LEVEL 2.9 MG/DL (2.5-4.9); POTASSIUM SERUM 4.2 MEQ/L (3.5-5.1); SODIUM LEVEL 140 MEQ/L (136-145); TOTAL PROTEIN 5.7 GM/DL (6.4-8.2); TROPONIN I < 0.02 NG/ML (< 0.10)
[2020-08-29] MEDS ORDERED: CALCIUM GLUCONATE 1,000 MG in NS 100 ML IV ONE (20:00)
--- NOTE | 2020-08-29 21:33 | REPVR ---
PROCEDURE INFORMATION: Exam: US Abdomen, Limited; Right Upper Quadrant Exam date and time: 08/29/2020 9:07 PM Age: 65 years old Clinical indication: Abnormal findings; Abnormal lab test; Other: Hyperbilirubinemia; Prior surgery; Surgery date: 6+ months; Surgery type: Cholecystectomy TECHNIQUE: Imaging protocol: US abdomen. Real time ultrasound with image documentation. Limited exam focused on the right upper quadrant. COMPARISON: RENAL US 08/22/2020 4:15 AM FINDINGS: Liver: Nodular contour, suggesting cirrhosis. Gallbladder: Surgically absent. Common bile duct: No stones. No ductal dilatation. Pancreas: Suboptimally visualized. Right kidney: Suboptimally visualized. IMPRESSION: Nodular hepatic contour, suggesting cirrhosis. Electronically signed by: Juan Falk On 08/29/2020 21:33:38 PM
[2020-08-30] VITALS (50 sets, daily range): BP systolic 65–135; BP diastolic 28–58
[2020-08-30] MEDS: PIPERACILLIN/TAZOBACTAM SOD 4.5 GM in D5W MINI-BAG PLUS 50 ML IV SCH ×2 (00:12→08:04)
[2020-08-30] MEDS: LEVALBUTEROL 1.25 MG/0.5 ML CONCENTRATE NEB NEB SCH ×4 (01:25→19:24)
--- NOTE | 2020-08-30 02:52 | REPVR ---
PROCEDURE INFORMATION: Exam: CT Head Without Contrast Exam date and time: 08/30/2020 2:39 AM Age: 65 years old Clinical indication: Altered mental status/memory loss; Confusion or disorientation; Additional info: AMS TECHNIQUE: Imaging protocol: Computed tomography of the head without contrast. Radiation optimization: All CT scans at this facility use at least one of these dose optimization techniques: automated exposure control; mA and/or kV adjustment per patient size (includes targeted exams where dose is matched to clinical indication); or iterative reconstruction. COMPARISON: CT Head without contrast 08/05/2020 10:03 AM FINDINGS: Brain: Mild decreased attenuation of the supratentorial white matter is likely secondary to chronic microvascular ischemia. No acute intracranial hemorrhage. Cerebral ventricles: Ventricular and subarachnoid spaces are age appropriate. Bones/joints: Unremarkable. No acute fracture. Paranasal sinuses: Small volume of nonspecific sphenoid sinus fluid. Mastoid air cells: Partial opacification of the left mastoid air cells. Vasculature: Intracranial vascular calcification. Soft tissues: Unremarkable. IMPRESSION: No acute intracranial abnormality. Electronically signed by: Woody Simmons On 08/30/2020 02:51:31 AM
--- NOTE | 2020-08-30 03:17 | REPVR ---
PROCEDURE INFORMATION: Exam: CT Chest Without Contrast Exam date and time: 08/30/2020 2:39 AM Age: 65 years old Clinical indication: Condition or disease; Lung condition and disease; Pneumonia TECHNIQUE: Imaging protocol: Computed tomography of the chest without contrast. 3D rendering (Not supervised by radiologist): MIP and/or 3D reconstructed images were created by the technologist. Radiation optimization: All CT scans at this facility use at least one of these dose optimization techniques: automated exposure control; mA and/or kV adjustment per patient size (includes targeted exams where dose is matched to clinical indication); or iterative reconstruction. COMPARISON: CT Chest with contrast 08/01/2020 6:43 PM FINDINGS: Tubes, catheters and devices: Right PICC terminates in distal superior vena cava. Right internal jugular central venous catheter is also noted. Lungs: Large left pleural effusion with airspace consolidation of the left lower lobe. Interval development of patchy bilateral airspace and ground-glass opacities. Pleural space: Unremarkable. No pneumothorax. No pleural effusion. Heart: Unremarkable. No cardiomegaly. No pericardial effusion. Aorta: Atherosclerotic disease of thoracic aorta and coronary arteries. Liver: Cirrhosis and portal venous hypertension. Lymph nodes: Unremarkable. No enlarged lymph nodes. Spleen: Mild splenomegaly. Stomach and bowel: Diverticulosis of colon. Bowel wall thickening involving ascending and proximal transverse probably reflect portal colopathy. Intraperitoneal space: Moderate ascites. Bones/joints: Redemonstration of left 5th through 11th rib fractures. Multilevel degenerative disease and osteopenia. Soft tissues: Unremarkable. IMPRESSION: Large left pleural effusion with airspace consolidation of the left lower lobe. Interval development of patchy bilateral airspace and ground-glass opacities. Cirrhosis and portal venous hypertension. Moderate ascites. Redemonstration of left 5th through 11th rib fractures. Electronically signed by: Dalton Palafox On 08/30/2020 03:17:03 AM
[2020-08-30] MEDS: LACTULOSE 20 GM/30 ML SYRUP UD PO SCH ×7 (03:57→23:40)
[2020-08-30 05:48] LABS: IONIZED CALCIUM 4.4 MG/DL (4.5-5.3)
[2020-08-30 05:59] LABS: BASO % 0.5 % (0.0-1.0); EOS # 0.2 10^3/uL (0.0-0.5); EOS % 4.5 % (0.0-3.0); HEMATOCRIT 24.8 % (36.0-47.0); HEMOGLOBIN 7.4 g/dl (12.0-15.5); LYMPH # 0.8 10^3/uL (1.5-5.0); LYMPH % 18.2 % (24.0-44.0); MEAN CORPUSCULAR HEMOGLOBIN 27.5 pg (27.0-33.0); MEAN CORPUSCULAR HGB CONC 29.8 g/dl (32.0-36.5); MEAN CORPUSCULAR VOLUME 92.2 fl (80.0-96.0); MONO # 0.8 10^3/uL (0.0-0.8); MONO % 18.6 % (0.0-5.0); NEUTROPHILS # 2.4 10^3/uL (1.5-8.5); NEUTROPHILS % 57.5 % (36.0-66.0); RED BLOOD COUNT 2.69 10^6/uL (4.00-5.40); WHITE BLOOD COUNT 4.2 10^3/uL (4.0-10.0)
[2020-08-30 06:00] LABS: PLATELET COUNT, AUTOMATED 79 10^3/uL (150-450)
[2020-08-30] MEDS: LEVOTHYROXINE 25MCG TABLET (0.025MG) PO SCH (06:00)
[2020-08-30 06:11] LABS: INR 1.58; PROTHROMBIN TIME 19.2 SECONDS (12.5-14.3)
[2020-08-30 06:12] LABS: PARTIAL THROMBOPLASTIN TIME 55.2 SECONDS (24.2-38.5)
[2020-08-30 06:20] LABS: ALBUMIN 2.3 GM/DL (3.2-5.2); ALT/SGPT 13 U/L (12-78); BILIRUBIN,TOTAL 1.6 MG/DL (0.2-1.0); BLOOD UREA NITROGEN 2 MG/DL (7-18); CALCIUM LEVEL 7.5 MG/DL (8.8-10.2); CARBON DIOXIDE LEVEL 26 MEQ/L (21-32); CHLORIDE LEVEL 107 MEQ/L (98-107); CREATININE FOR GFR 0.58 MG/DL (0.55-1.30); GLOMERULAR FILTRATION RATE > 60.0 (>45); GLUCOSE, FASTING 172 MG/DL (70-100); LDH LACTATE DEHYDROGENASE 285 U/L (84-246); MAGNESIUM LEVEL 2.3 MG/DL (1.8-2.4); PHOSPHORUS LEVEL 2.1 MG/DL (2.5-4.9); POTASSIUM SERUM 3.9 MEQ/L (3.5-5.1); SODIUM LEVEL 139 MEQ/L (136-145)
[2020-08-30] MEDS: SODIUM CHLORIDE 0.9% INJ 10 ML SYR IV SCH ×2 (06:33→18:00)
[2020-08-30] MEDS: HumaLOG INSULIN (NovoLOG) PER UNIT SC SCH ×5 (06:33→21:29)
[2020-08-30] MEDS ORDERED: CALCIUM GLUCONATE 1,000 MG in NS 100 ML IV ONE (07:00)
[2020-08-30] MEDS ORDERED: KCL 20MEQ IN 100ML SWI (KRUN) 20 MEQ in IV 1 EA IV ONE ×2 (07:00)
[2020-08-30] MEDS ORDERED: SODIUM PHOSPHATE INJ 30 MMOL in D5W 500 ML IV ONE (08:00)
[2020-08-30] MEDS: PANTOPRAZOLE 40MG VIAL (C9113 PER 1) IV SCH (08:04)
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
[2020-08-30] MEDS ORDERED: NOREPINEPHRINE BITARTRATE 8 MG in D5W 492 ML IV SCH (08:15)
--- NOTE | 2020-08-30 11:25 | REP ---
INDICATION: on CRRT has to be portable COMPARISON: 08/29/2020 TECHNIQUE: Portable semi upright view of the chest FINDINGS: Right IJ line and right PICC line in stable satisfactory position. Cardiac silhouette is within normal limits and stable. Hazy opacification of the left hemithorax is again noted and suggests large pleural effusion. Left lower lobe retrocardiac consolidation again noted and consistent with possible partial collapse. Smaller bilateral lower lobe infiltrates cannot be excluded. IMPRESSION: No significant change from prior examination. As above. <Electronically signed by Michael Vincent > 08/30/20 1120
[2020-08-30] MEDS ORDERED: VANCOMYCIN HCL IV SCH (12:30)
[2020-08-30] MEDS ORDERED: FLUID PLACE HOLDER IV SCH (12:30)
[2020-08-30] MEDS ORDERED: CEFEPIME HCL 2 GM in D5W MINI-BAG PLUS 50 ML IV SCH (13:00)
[2020-08-30] MEDS ORDERED: VANCOMYCIN HCL 1,000 MG, VIAL MATE ADAPTER 1 EACH in D5W 250 ML IV ONE (14:00)
[2020-08-30] MEDS ORDERED: FUROSEMIDE 100MG/10ML VIAL (J1940) IV ONE (18:00)
[2020-08-30] MEDS: VANCOMYCIN HCL 1,000 MG, VIAL MATE ADAPTER 1 EACH in D5W 250 ML IV SCH (18:05)
[2020-08-30] MEDS ORDERED: NS 500 ML IV ONE ×2 (18:15→19:15)
[2020-08-30 18:30] LABS: HEMATOCRIT 26.1 % (36.0-47.0); MEAN CORPUSCULAR HEMOGLOBIN 27.9 pg (27.0-33.0); MEAN CORPUSCULAR HGB CONC 30.7 g/dl (32.0-36.5); MEAN CORPUSCULAR VOLUME 90.9 fl (80.0-96.0); RED BLOOD COUNT 2.87 10^6/uL (4.00-5.40); WHITE BLOOD COUNT 5.1 10^3/uL (4.0-10.0)
[2020-08-30 18:32] LABS: PLATELET COUNT, AUTOMATED 74 10^3/uL (150-450)
[2020-08-30 18:39] LABS: ABG BASE EXCESS -0.7 (-2.0-2.0); ABG HCO3 23.9 MEQ/L (22.0-26.0); ABG O2 SATURATION 95.4 % (95.0-99.0); ABG PARTIAL PRESSURE CO2 38.7 mmHg (35.0-45.0); ABG PARTIAL PRESSURE O2 75.9 mmHg (75.0-100.0); ABG STANDARD HCO3 23.9 MEQ/L (22.0-26.0); ABG TOTAL CO2 25.1 MEQ/L (23.0-31.0); ABG pH (ARTERIAL) 7.408 UNITS (7.350-7.450)
[2020-08-30 19:06] LABS: ALT/SGPT 13 U/L (12-78); BILIRUBIN,TOTAL 1.4 MG/DL (0.2-1.0); BLOOD UREA NITROGEN 4 MG/DL (7-18); CALCIUM LEVEL 7.6 MG/DL (8.8-10.2); CARBON DIOXIDE LEVEL 27 MEQ/L (21-32); CHLORIDE LEVEL 105 MEQ/L (98-107); CREATININE FOR GFR 0.94 MG/DL (0.55-1.30); GLOMERULAR FILTRATION RATE > 60.0 (>45); GLUCOSE, FASTING 152 MG/DL (70-100); POTASSIUM SERUM 3.5 MEQ/L (3.5-5.1); SODIUM LEVEL 138 MEQ/L (136-145)
[2020-08-30] MEDS: NOREPINEPHRINE BITARTRATE 8 MG in D5W 492 ML IV SCH (20:54)
[2020-08-30] MEDS: ONDANSETRON 4MG/2ML VIAL IV PRN (23:40)
[2020-08-30] MEDS: CEFEPIME HCL 2 GM in D5W MINI-BAG PLUS 50 ML IV SCH (23:40)
[2020-08-31] VITALS (58 sets, daily range): BP systolic 72–129; BP diastolic 35–60
[2020-08-31] MEDS: LEVALBUTEROL 1.25 MG/0.5 ML CONCENTRATE NEB NEB SCH ×4 (01:27→19:48)
[2020-08-31] MEDS: LACTULOSE 20 GM/30 ML SYRUP UD PO SCH ×5 (03:44→20:00)
[2020-08-31] MEDS: ACETAMINOPHEN TAB 650MG DOSE (2X325MG) PO PRN ×2 (04:23→23:49)
[2020-08-31 04:53] LABS: BASO # 0.1 10^3/uL (0.0-0.2); BASO % 0.5 % (0.0-1.0); EOS # 0.5 10^3/uL (0.0-0.5); HEMATOCRIT 28.5 % (36.0-47.0); HEMOGLOBIN 8.9 g/dl (12.0-15.5); LYMPH # 2.1 10^3/uL (1.5-5.0); MEAN CORPUSCULAR HGB CONC 31.2 g/dl (32.0-36.5); MEAN CORPUSCULAR VOLUME 89.6 fl (80.0-96.0); MONO # 2.3 10^3/uL (0.0-0.8); MONO % 24.5 % (0.0-5.0); NEUTROPHILS # 4.4 10^3/uL (1.5-8.5); PLATELET COUNT, AUTOMATED 127 10^3/uL (150-450); RED BLOOD COUNT 3.18 10^6/uL (4.00-5.40); WHITE BLOOD COUNT 9.3 10^3/uL (4.0-10.0)
[2020-08-31 05:20] LABS: ALBUMIN 2.2 GM/DL (3.2-5.2); CALCIUM LEVEL 7.7 MG/DL (8.8-10.2); CREATININE FOR GFR 1.28 MG/DL (0.55-1.30); GLOMERULAR FILTRATION RATE 44.8 (>45); MAGNESIUM LEVEL 2.2 MG/DL (1.8-2.4); POTASSIUM SERUM 3.9 MEQ/L (3.5-5.1); TOTAL PROTEIN 5.4 GM/DL (6.4-8.2); VANCOMYCIN RANDOM 19.7 UG/ML
[2020-08-31] MEDS: LEVOTHYROXINE 25MCG TABLET (0.025MG) PO SCH (05:43)
[2020-08-31] MEDS: SODIUM CHLORIDE 0.9% INJ 10 ML SYR IV SCH ×2 (05:43→18:14)
[2020-08-31] MEDS: VANCOMYCIN HCL 1,000 MG, VIAL MATE ADAPTER 1 EACH in D5W 250 ML IV SCH (05:45)
[2020-08-31] MEDS ORDERED: VANCOMYCIN INTERMITTENT/PULSE DOSING BY CLINICAL PHARMACIST PER DOSING PROTOCOL XX SCH (08:00)
[2020-08-31] MEDS: HumaLOG INSULIN (NovoLOG) PER UNIT SC SCH ×4 (09:09→21:00)
[2020-08-31] MEDS: PANTOPRAZOLE 40MG VIAL (C9113 PER 1) IV SCH (09:09)
--- NOTE | 2020-08-31 09:29 | REPVR ---
PROCEDURE INFORMATION: Exam: XR Chest, 2 Views Exam date and time: 08/31/2020 6:00 AM Age: 65 years old Clinical indication: Shortness of breath; Additional info: Hemothorax TECHNIQUE: Imaging protocol: XR of the chest Views: 2 views. COMPARISON: NE PORTABLE CHEST X-RAY 08/30/2020 9:31 AM FINDINGS: Tubes, catheters and devices: Right internal jugular central venous catheter terminates at cavoatrial junction. Lungs: Stable bilateral perihilar opacities. Pleural space: Stable moderate left pleural effusion. Heart/Mediastinum: Unremarkable. No cardiomegaly. Vasculature: Atherosclerotic disease of the thoracic aorta. Bones/joints: Multilevel degenerative disease of the thoracic spine. IMPRESSION: No significant interval change. Stable moderate left pleural effusion. Electronically signed by: Dalton Palafox On 08/31/2020 09:29:31 AM
[2020-08-31] MEDS: NOREPINEPHRINE BITARTRATE 8 MG in D5W 492 ML IV SCH ×2 (10:20→10:46)
--- NOTE | 2020-08-31 10:26 | CCN ---
DATE: 08/28/2020 SUBJECTIVE: Mrs. Bennett is seen this morning at her bedside in the Intensive Care Unit. She is poorly responsive today. The nursing staff reports that she has been more confused and disoriented and not communicating. She is tolerating her CRRT and fluid removal very well and maintaining systolic blood pressure about 110 mmHg. The patient herself was not able to provide any information today. She has no urine output and Teixeira catheter bag has minimal dark urine from the last several hours. PHYSICAL EXAMINATION: VITAL SIGNS: Temperature 97.2 degrees Fahrenheit, heart rate 88 per minute and respiratory rate 14 per minute. Blood pressure 115/50 mmHg and oxygen saturation 97% on 2 liters of oxygen. HEAD: Atraumatic. NECK: Supple and JVD difficult to be assessed. Dialysis catheter in right internal jugular vein is intact. HEART: Heart sounds are regular. LUNGS: Good bilateral air entry. Slightly diminished breath sounds at bases. ABDOMEN: Soft and nontender. Ascites has improved but peripheral edema is still present on lower abdominal wall. EXTREMITIES: Without any cyanosis or clubbing. Lower extremity edema is still about 3+. NEUROLOGIC: She is obtunded today and the nursing staff reports she has been more confused and disoriented. At present, she is resting with eyes closed. LABS: Todays labs shows WBC 6.4, hemoglobin 8.3 and hematocrit 26.7, platelets are 92,000. Sodium is 140, potassium is 4.1, BUN 3 and creatinine 0.53. Glucose 90. Calcium is 7.8, phosphorus 2.1 and magnesium 2.3. Ammonia level is 42. PROBLEMS: 1. Oliguric acute renal failure. Patient still has minimal urine output. She is current on CRRT and will continue with the same for at least the next 24 hours. We will reevaluate her tomorrow for further need for CRRT. 2. Hypotension. Blood pressure is still low but not requiring any pressors. I do not feel that she will tolerate a regular dialysis because of low blood pressure and need for fluid removal. We will continue with CRRT at present. 3. Hepatic encephalopathy, cirrhosis and ascites. Her ammonia level has improved significantly, however her encephalopathy persists. At present, we will continue our efforts to remove fluid 100 mL/hour as tolerated with CRRT which she has tolerated well so far. 4. Anemia. Her anemia is stable and does not need any urgent transfusion. 5. Nutrition. Patient is not taking much by mouth. We may need to consider TPN if her oral intake remains poor. Thirty-three minutes of critical care time spent during which no procedures were performed. BRIAN
--- NOTE | 2020-08-31 10:29 | CCN ---
DATE: 08/29/2020 SUBJECTIVE: Patient was seen and examined at the bedside today morning in the ICU. She continues to be on CVVHDF. She is tolerating the procedure well. She needed some medications for agitation yesterday and because of that, patient is very drowsy and obtunded. She was combative today morning. She needed mitt placement on her arms. She remains oliguric, but she is tolerating the fluid removal through CVVHDF. OBJECTIVE: VITAL SIGNS: Temperature 95.6 degrees Fahrenheit, blood pressure 110/52, pulse 76, respiratory rate 16, saturating 98% on nasal cannula at 2 liters. INTAKE/OUTPUT: Urine output recorded since overnight is only 44 mL. Ultrafiltration during CVVHDF yesterday was 2.8 liters and when I saw her in the morning it was 632 mL. Weight in the bed scale is 108.3 kg, which is almost the same as yesterday. PHYSICAL EXAMINATION: GENERAL: Patient is awake, but combative, non-cooperative during exam. She is wearing mittens on hands. HEAD AND NECK: Extraocular muscles intact. Pupils equally round and reactive to light. Neck is supple. She has a right IJ non-tunneled hemodialysis catheter, which is being used for dialysis. CARDIOVASCULAR: S1, S2, regular rate. 2+ edema of the bilateral lower extremities. RESPIRATORY: Mildly decreased breath sounds at the bases. She did not cooperate during the exam. ABDOMEN: Soft. She has abdominal wall edema in both flanks and her pannus also has a lot of edema. MUSCULOSKELETAL: She has 2 to 3+ edema of the bilateral lower extremities all the way up to the thighs. LINING BRUSHER: Patient is obtunded and confused and combative at this time. GENITOURINARY: She has an indwelling Teixeira catheter. LABORATORY REVIEW: CBC showed WBC 4.7, hemoglobin 8.3, platelets 89,000. Urinalysis done today showed positive leukocyte esterase, about 15-20 rbc and 10-15 wbc, moderate amount of bacteria. She was getting hypoglycemic today morning. Blood sugars were 52 and 78 almost at midnight and required amps of D50. BMP today morning showed sodium 141, potassium 4, chloride 107, bicarb 30, BUN 1, creatinine 0.5. Calcium 7.8. Phosphorus 2.1. Magnesium 2.2. MICROBIOLOGY: Repeat urine and blood cultures are pending. IMAGING STUDIES: A chest x-ray was done today morning, which showed no significant interval changes. CURRENT INPATIENT MEDICATIONS: Patient's medications were all reviewed by myself. She is getting calcium gluconate according to CVVHDF protocol. She was started on Zosyn 4.5 grams I.V. every 8 hours today morning. Dilaudid has been decreased to every 6 hours now. No other significant change in the medications today. ASSESSMENT AND PLAN: 1. Acute anuric renal failure: Patient remains anuric at this time. She is tolerating the CVVHDF. Electrolytes and acid based status is within the acceptable range. She is not requiring the pressors. Hopefully I should be able to switch her to intermittent hemodialysis once her volume status is better. 2. Anasarca: Patient has liver cirrhosis and renal failure. Because of that, she is significantly volume overloaded and because of that, I would continue the CVVHDF. I would start removing fluid according to the Mean Arterial Pressure parameters. Fluid removal parameters were discussed with the nursing staff and orders were left in the chart. 3. Protein calorie malnutrition: Patient is not eating much and she is more obtunded now. She has a PICC line in the right arm. I have started her on special formulated TPN, which would run at 60 cc an hour along with fat emulsion, which will run at 20 cc an hour. I am reluctant to increase TPN dose because I am trying to treat her anasarca at this time. 4. Decompensated diastolic congestive heart failure: Patient is anuric, she will not respond much to the diuretics. As mentioned above, volume is being optimized with CVVHDF. 5. Metabolic encephalopathy: It is most likely secondary to a combination of liver cirrhosis, use of opiate and sedative medications. Dilaudid dose has already been decreased by the medical team. Saenz cultures have been sent. She has been empirically started on I.V. Zosyn; dose is adequate for CVVDHF. 6. Liver cirrhosis with ascites: Continue lactulose and Rifaximin if patient is ready to take it. Latest ammonia level was done yesterday, which was 42, which is not significant elevation from her baseline. TOTAL CRITICAL CARE TIME SPENT IN THE MANAGEMENT OF THIS PATIENT (EXCLUDING ALL THE PROCEDURES) TODAY MORNIN minutes. MTDD
--- NOTE | 2020-08-31 10:41 | CCN ---
DATE: 08/30/2020 SUBJECTIVE: The patient was seen and examined at the bedside today morning in the ICU. The last 24 hours events not noted. The patient is much more awake and alert today. She was oriented x3. She was able to communicate with me. She was started on TPN yesterday through the PICC line. She continues to be on CVVHDF as of today afternoon when I saw her. We are removing fluid via the CVVHDF, however her blood pressures were dropping today morning. Repeat chest x-ray done today showed a persistent large left sided pleural effusion. OBJECTIVE: VITAL SIGNS: Temperature is 97.7 degrees Fahrenheit, blood pressure 106/53, pulse is 98, respiratory rate of 20, saturating 90% on room air. Intake and output Fluid removed with CVVSDF was 3.8 liters yesterday, 2.2 liters so far today since overnight. Weight on the bed scale is 100.6 kg. PHYSICAL EXAMINATION: GENERAL APPEARANCE: The patient is awake, alert, oriented x3, laying in bed. No apparent distress. HEAD AND NECK: The extraocular muscles are intact. Pupils are equally round and reactive to light. Mucous membranes are moist. Neck is supple. No significant jugular venous distention. CARDIOVASCULAR: S1, S2, regular rate. EXTREMITIES: 2+ edema of the bilateral lower extremities. There was edema in the thighs as well. RESPIRATORY: Decreased breath sounds at the bases, especially left is worse than the right. ABDOMEN: Soft, moderate amount of abdominal wall edema in the flanks was noted. GENITOURINARY: She has an indwelling Teixeira catheter. MUSCULOSKELETAL: No significant clubbing or cyanosis. 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 The patient was able to communicate and move bilateral upper extremities and follow commands. LABORATORY REVIEW: CBC showed a WBC of 4.2, hemoglobin 7.4, platelet count 79. BMP showed sodium 138, potassium 3.9, chloride 107, bicarbonate 26, BUN 2, creatinine 0.5, calcium 7.5, ionized calcium 4.4, phosphorous was 2.1. Albumin 2.3. IMAGING: A chest x-ray was done today which showed persistent large left sided pleural effusions. CURRENT INPATIENT MEDICATIONS: The patient's medications were all reviewed by myself. She continues to be IV Cefepime. She was getting TPN which is being stopped now because the patient tolerated her breakfast today morning. No other significant change in her medications today as compared with yesterday. ASSESSMENT AND PLAN: 1. Acute oliguric renal failure - The patient is on CVVHDF, not requiring pressors as of today morning. Electrolytes are significantly better. I am going to stop the CVVHDF, and if needed, the patient will be getting regular intermittent hemodialysis at bedside. 2. Anasarca It is clinically improving. The patient had been getting daily fluid removal for the last one week almost which she is tolerating. Now blood pressures are soft. I will stop removing the fluid. 3. Protein calorie malnutrition - The patient was obtunded and had decreased p.o. intake yesterday. She was started on TPN. However she is eating now. She tolerated her breakfast. I am going to stop the total parenteral nutrition today. 4. Cirrhosis and ascites - The patient is much more awake and alert. She continues to be on Rifaximin and Lactulose. Volume status is optimized with dialysis. 5. Anemia - hemoglobin is again below 8. Transfuse p.r.n. for hemoglobin below 8. One unit of PRBC transfusion has been ordered. Total critical care time spent in the management of this patient today morning in the intensive care unit (ICU) excluding all the procedures was 40 minutes. Edited: psychiatric 08/30/2020 2229 MTDD
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
[2020-08-31] MEDS: CEFEPIME HCL 2 GM in D5W MINI-BAG PLUS 50 ML IV SCH (12:09)
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
[2020-08-31] MEDS ORDERED: FLUCONAZOLE 50MG TABLET PO ONE (13:00)
--- NOTE | 2020-08-31 14:14 | ECHO ---
DATE OF PROCEDURE: 08/30/2020 Age: 65 Gender: Female Height: 160 cm Weight: 108 kg REFERRING PHYSICIAN: Dr. Velasquez. INDICATION: Edema. MEASUREMENTS: IVS 0.8 cm LV 4.6 cm LVPW 0.9 cm LA 4.2 cm Aorta 2.6 cm IVC 1.6 cm DOPPLER MEASUREMENT Mitral E wave velocity 102 cm/s Mitral A wave velocity 98 cm/s E prime septal 7.1 cm/s E prime lateral 13.9 cm/s FINDINGS: This study was of acceptable technical quality. The patient is in sinus rhythm with heart rate approaching 100 BPM. Left ventricle is normal size and systolic function, estimated ejection fraction (EF) approximately 70%. No segmental wall motion abnormalities were noted. The right ventricle did not appear grossly enlarged and was normally contractile. The left atrium was mildly enlarged. The right atrium appeared normal. Aortic valve was sclerotic and has some minimal restriction of cusp mobility. Mitral valve also exhibits mild degenerative abnormalities, but mobility of leaflets is preserved. Tricuspid valve appears normal. Pulmonic valve was not seen. No pericardial effusion was noted. Inferior vena cava was poorly visualized, but grossly appears normal based on limited views. Aortic root was normal. Aortic arch and abdominal aorta were not well seen. Doppler interrogation of the aortic valve revealed no insufficiency and mild stenosis with mean gradient 18 mmHg. Mitral valve was functionally competent without significant stenosis or insufficiency. Mild tricuspid insufficiency was seen. Calculated pulmonary artery pressure was in the 40s assuming normal central venous pressure corresponding to moderate pulmonary hypertension. Mitral inflow pattern on tissue Doppler imaging of the mitral annulus revealed probably normal diastolic function, even though septal tissue Doppler velocity is reduced. CONCLUSIONS: 1. Study is of acceptable technical quality, underlying sinus rhythm. 2. Normal left ventricular (LV) size with hyperdynamic left ventricular (LV) systolic function and likely normal diastolic function. 3. Aortic sclerosis resulting in mild stenosis and no insufficiency. 4. No additional significant valvular disease. 5. Unable to reliably estimate central venous pressure, but at least moderate pulmonary hypertension. MTDD
--- NOTE | 2020-08-31 14:42 | IPN ---
DATE: 08/31/2020 SUBJECTIVE: Ms. Blackman blood pressure was hovering on the low side and with systolic between 95 and 86. She was therefore, placed on Levophed drip. She is awake, alert, and able to assist getting up to listen to her lungs. OBJECTIVE: Her vital signs show a T-max of 100.5 with a heart rate that ranges between 104 and 107 in sinus rhythm, respiratory rate of 18-22 without the use of accessory muscles, 90% to 92% saturated on room air. She does desaturate when she is sleeping. Her blood pressures noted above is now ranging between 86/44 to 129/60. Her intake and output over the past 24 hours has been recorded as 493 in and 2646 out for a positivity of 1447 mL. 2200 mL as taken off in ultrafiltration. She has taken in 600 mL of oral intake. On physical examination, she has diffuse fine crackles more on inspiration than expiration in both lungs. Breath sounds also show egophony in the left lower hemithorax with bronchophony. Percussion note is full to the diaphragm as far as I can tell through her morbid obesity. Cardiac exam shows the 3/6 systolic murmur heard both at the right upper sternal border and along the left sternal border of the apex. I cannot feel her PMI. S1 and S2 are normal. Abdomen is soft and nontender. Bowel sounds are positive, but hypoactive. There is no CVA tenderness. Extremities show 2+ to 3+ pretibial edema. No calf tenderness. No differential swelling of the upper extremities. Skin was warm, dry, perfused without cyanosis or mottling, including that of the nail bed and knees. Neck is supple. There is no jugular venous distention. No subcutaneous emphysema. Trachea is midline. Mouth shows her mucous membranes to be pink and moist. Lips, gums without lesions or thrush. Eyes show pupils equal and reactive. Extraocular movements intact. Sclerae are just only slightly icteric. Neurologic shows II- XII intact. Normal gross motor, gross sensation intact. Gait is not tested. Psychiatric shows her to be awake, alert, and conversational. LABORATORY DATA: Her white count today is up to 9.3 from 5.1 yesterday. Hemoglobin and hematocrit 8.9 and 28.5 up from 7.4 and 24.8 after one unit of transfusion. Platelet count is 127,000. Differential shows 47% neutrophils, 22% lymphocytes, and 24% monocytes. There are no immature forms. No toxic granulosis. Her chemistries today show normal electrolytes with BUN and creatinine of 6 and 1.28 continued on ultrafiltration. Glucose is 136 with a calcium of 7.7 and albumin of 2.2. Total bilirubin is 2 today up from 1.4 yesterday. Vancomycin level is 19.7 today. Microbiology has come back with a poor quality sputum with many gram-positive rods, a few gram-negative cocci and rods, and a few yeast-like organisms. The cultures were not performed. Her urine culture has come back with a yeast-like organism greater than 100,000 colonies/mL. There is no growth anaerobically in the pleural fluid or aerobically. There is no growth in the blood cultures of 08/21. IMAGING: Her chest x-ray today done PA and lateral still shows the diffuse haze in the left hemithorax, but unchanged from her portable x-ray done yesterday. Lungs fully expand to the chest wall. Left costophrenic angle is opacified. The lateral shows a crescent, which does not look like a pleural effusion, but rather as fat fold from her morbid obesity. IMPRESSION: 1. Pleural effusion, left side. 2. Hemothorax, right side, drained with a chest tube now out. 3. Multiple rib fractures. 4. Hepatorenal syndrome. 5. Renal insufficiency probably acute tubular necrosis (ATN), secondary to initial dehydration and a large osmotic pleural effusion. 6. Hypotension. 7. Nonalcoholic steatohepatitis (CAMPBELL) cirrhosis. 8. Esophageal varices status post banding and ligation. 9. Encephalopathy, resolved. 10. Morbid obesity. 11. Hypothyroidism. 12. Portal hypertension. 13. Left lower lobe consolidation. PLAN AND DISCUSSION: I have spoken with radiology today and it is in deed technically feasible to drain her [id number] pleural effusion. She is, however, on Levophed at this point in time. I really cannot make up my mind whether the lower lobe on the CT scan is compression or consolidation, although it looks a little more dense than usual fro compression. There is nothing really convincing that she has a pneumonia, however. She does have greater than 100,000 colonies of yeast and I would treat that with Fluconazole. That culture was done through a Teixeira catheter and so I think that it is real. I will reserve judgment as to whether to drain her. If she gets off the Levophed, we can take her downstairs for a pigtail catheter. I may very well be inclined to do so to resolve the question of whether this is compression or consolidation and for diagnostic purposes to make sure it is not an empyema, if this does represent consolidation secondary to pneumonia. MTDD
[2020-08-31] MEDS: MICONAZOLE-7 VAGINAL 2% CREAM 47.7 GM PV SCH (21:08)
[2020-08-31] MEDS: CEFEPIME HCL 1 GM in D5W MINI-BAG PLUS 50 ML IV SCH (23:49)
[2020-09-01] VITALS (75 sets, daily range): BP systolic 68–155; BP diastolic 31–80
[2020-09-01] MEDS: LEVALBUTEROL 1.25 MG/0.5 ML CONCENTRATE NEB NEB SCH ×4 (01:50→20:07)
[2020-09-01 04:59] LABS: BASO # 0.1 10^3/uL (0.0-0.2); BASO % 0.6 % (0.0-1.0); EOS # 0.5 10^3/uL (0.0-0.5); EOS % 5.7 % (0.0-3.0); HEMATOCRIT 26.5 % (36.0-47.0); HEMOGLOBIN 8.2 g/dl (12.0-15.5); LYMPH # 1.9 10^3/uL (1.5-5.0); LYMPH % 23.1 % (24.0-44.0); MEAN CORPUSCULAR HEMOGLOBIN 28.2 pg (27.0-33.0); MEAN CORPUSCULAR HGB CONC 30.9 g/dl (32.0-36.5); MEAN CORPUSCULAR VOLUME 91.1 fl (80.0-96.0); MONO # 2.1 10^3/uL (0.0-0.8); MONO % 25.5 % (0.0-5.0); NEUTROPHILS # 3.7 10^3/uL (1.5-8.5); NEUTROPHILS % 44.6 % (36.0-66.0); PLATELET COUNT, AUTOMATED 100 10^3/uL (150-450); RED BLOOD COUNT 2.91 10^6/uL (4.00-5.40); WHITE BLOOD COUNT 8.4 10^3/uL (4.0-10.0)
[2020-09-01 05:21] LABS: ALBUMIN 2.4 GM/DL (3.2-5.2); BILIRUBIN,TOTAL 1.8 MG/DL (0.2-1.0); CALCIUM LEVEL 8.1 MG/DL (8.8-10.2); CREATININE FOR GFR 1.47 MG/DL (0.55-1.30); GLOMERULAR FILTRATION RATE 38.2 (>45); POTASSIUM SERUM 3.8 MEQ/L (3.5-5.1); TOTAL PROTEIN 5.5 GM/DL (6.4-8.2); VANCOMYCIN RANDOM 21.5 UG/ML
[2020-09-01] MEDS: SODIUM CHLORIDE 0.9% INJ 10 ML SYR IV SCH ×2 (06:00→16:59)
[2020-09-01] MEDS: LEVOTHYROXINE 25MCG TABLET (0.025MG) PO SCH (06:34)
[2020-09-01] MEDS: LACTULOSE 20 GM/30 ML SYRUP UD PO SCH (08:29)
[2020-09-01] MEDS: PANTOPRAZOLE 40MG VIAL (C9113 PER 1) IV SCH (08:29)
[2020-09-01] MEDS: HumaLOG INSULIN (NovoLOG) PER UNIT SC SCH ×4 (08:29→20:14)
[2020-09-01] MEDS: ACETAMINOPHEN TAB 650MG DOSE (2X325MG) PO PRN ×2 (08:32→20:27)
[2020-09-01] MEDS: NOREPINEPHRINE BITARTRATE 8 MG in D5W 492 ML IV SCH ×2 (10:00→15:34)
--- NOTE | 2020-09-01 10:54 | IPN ---
DATE: 08/31/2020 SUBJECTIVE: Patient was seen and examined at the bedside today morning in the intensive care unit (ICU). Last 24 hour events are noted. Patients continuous venovenous hemodiafiltration (CVVHDF) was stopped. She was hypotensive after stopping that. She needed two boluses of 500 mL of normal saline because of hypotension. Blood pressures were within the normal range today morning. Patient was awake and alert, she was able to eat her breakfast today morning. She remains oliguric. There is no significant improvement in the renal function. OBJECTIVE: Vital signs: Temperature is 98.8 degrees Fahrenheit, blood pressure 97/51, pulse is 97, respiratory rate of 16, saturating 90% on nasal cannula at two liters. Intake and output: Urine output recorded is 162 mL since overnight, stool output is 850 mL. Weight in the bed scale is not available. PHYSICAL EXAMINATION: General: Patient is awake, alert, oriented times two, laying in bed, no apparent distress. Head and neck exam: Extraocular muscles intact. Pupils equally round and reactive to light. Mucous membranes are moist. Neck is supple. There is no significant jugular venous distension (JVD). Cardiovascular: S1, S2, regular rate. 1+ edema of the bilateral lower extremities. Respiratory: Decreased breath sounds at the bases, worse on the left side, there is no breath sounds heard from the left base to the left mid-lung zone. Abdomen: Soft, obese, positive bowel sounds, abdominal wall edema is noted. Genitourinary: There is an indwelling Teixeira catheter. Musculoskeletal: 1+ edema of bilateral lower extremities noted. 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 She is able to follow commands and move extremities. LABORATORY REVIEW: CBC showed WBC of 9.3, hemoglobin 8.9, platelets are 127. BMP showed sodium 138, potassium 3.9, chloride 106, bicarbonate 23, BUN 6, creatinine is 1.28, lactic acid is 1.2, calcium is 7.7, albumin is 2.2. Microbiology: Urine culture is growing yeast-like organism. Blood cultures are negative so far. IMAGING: A chest x-ray was done today in the morning, it showed moderate left- sided pleural effusion. CURRENT INPATIENT MEDICATIONS: Patients medications were all reviewed by myself. She continues to be on cefepime, dose has been decreased to 1 gram IV every 12 hours. She has been started on fluconazole 150 mg times one dose. She continues to be on rifaximin. No other change in the medications today. ASSESSMENT AND PLAN: 1. Acute oliguric renal failure. Patients continuous venovenous hemodiafiltration (CVVHDF) was stopped. She is still hypotensive. If blood pressures are stable, regular bedside hemodialysis will be done tomorrow morning. 2. Anasarca. Patient got significant fluid removal. Now, she is becoming hypotensive and actually needed one liter of normal saline yesterday. Further optimization of fluid status will be tried with dialysis. 3. Cirrhosis and ascites. Volume status is better. She is awake now, currently getting rifaximin and lactulose. Lactulose dose needs to be decreased because patient is having loose stools. 4. Protein calorie malnutrition. Patient is tolerating the oral diet now. 5. Anemia. Hemoglobin is stable at 8.9. No need of blood transfusion at this time. 6. Hypotension. I am reluctant to give this patient normal saline because she already has anasarca. She was given a dose of albumin 25 grams. I am going to start her on midodrine. 7. Yeast urine infection. Patient was given a dose of fluconazole. MTDD
[2020-09-01] MEDS: CEFEPIME HCL 1 GM in D5W MINI-BAG PLUS 50 ML IV SCH ×2 (12:57→23:47)
[2020-09-01] MEDS ORDERED: SODIUM BICARBONATE 8.4% INJ 50MEQ 50 ML VIAL As Ordered ONE (13:18)
[2020-09-01] MEDS ORDERED: LIDOCAINE 1% MDV 20ML VIAL As Ordered ONE (13:18)
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
--- NOTE | 2020-09-01 14:25 | IPN ---
DATE: 09/01/2020 SUBJECTIVE: The patient was seen and examined at the bedside today morning in the ICU, last 24 hour events were noted. Patient was hypotensive last night. She was given IV albumin and despite that her blood pressures were low so she had to be started on Levophed infusion. She is on Levophed but it is being weaned down now and she was on 1 mcg when I saw her today morning. She remains oliguric at this time and there is no improvement in the renal function. Patient was also scheduled to go for a pigtail catheter placement in the left side of the chest if she is taken off the pressors. She is otherwise awake and alert and denies any active complaints. PHYSICAL EXAMINATION: VITAL SIGNS: Temperature is 98.1 degrees Fahrenheit, blood pressure is 105/55, pulse is 95, respiratory rate is 16, saturating 96% on room air. Intake and output: Urine output recorded since overnight is 130 mL. Stool output is decreased now, it is 50 mL since overnight because her Lactulose was decreased, weight on the bed scale is 104.7 kg. General: Patient is awake, alert, oriented times two, laying in bed, no apparent distress. Head and neck exam: Extraocular muscles intact. Pupils equally round and reactive to light. Mucous membranes are moist. Neck is supple. There is no significant JVD. Cardiovascular: S1, S2, regular rate. 2+ edema of the bilateral lower extremities. Respiratory: Decreased breath sounds at the left side of the chest all the way up to the mid lung zone. Abdomen: Soft, obese, positive bowel sounds, abdominal wall edema and a moderate amount of ascites was noted. Musculoskeletal: No clubbing or cyanosis. Edema of the bilateral lower extremities as mentioned above. 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 She is awake, she follows commands and move extremities. LABORATORY DATA: CBC showed WBC of 8.4, hemoglobin 8.2, platelets are 100,000, BMP showed a sodium of 137, potassium 3.8, chloride 105, bicarbonate 25, BUN is 10, creatinine is 1.4. Calcium is 8.1. Total bilirubin is 1.8. AST is 34, ALT is 14, alkaline phosphatase is 137, albumin is 2.4. CURRENT INPATIENT MEDICATIONS: The patients medications were all reviewed by myself. She continues to be on IV Cefepime. She is on Levophed at 1 mcg at this time. Lactulose syrup was decreased to 30 mL p.o. daily yesterday. No other significant change in the medications today as compared with yesterday. ASSESSMENT AND PLAN: 1. Acute oliguric renal failure. Patient was on CVVHDF which was stopped. Electrolytes are within the acceptable range. Acid base status is acceptable. No urgent need to do dialysis at this time. I will wait for her to be off of pressors before I restart her on CVVHDF or regular hemodialysis. 2. Anasarca. Patient still has persistent edema. She is not making much urine. Volume status will be optimized with dialysis. 3. Cirrhosis with ascites. History of abdominal wall edema and ascites. Lactulose dose was decreased yesterday. Continue Rifaximin. 4. Left sided pleural effusion. Patient is going to have a pigtail catheter placed on the left side. 5. Hypotension, all the cultures are negative except yeast in the urine. She continues to be on Cefepime. Avoid aggressive IV fluids because of generalized anasarca. 6. Blood loss anemia. Patient recently had hemothorax, transfuse p.r.n. for hemoglobin below 8 only. MTDD
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
[2020-09-01] MEDS: MICONAZOLE-7 VAGINAL 2% CREAM 47.7 GM PV SCH (20:22)
[2020-09-01] MEDS: HYDROMORPHONE HCL 0.5 MG/ 0.5 ML SYRINGE (J1170 PER 1) IV PRN (22:37)
[2020-09-02] VITALS (64 sets, daily range): BP systolic 70–173; BP diastolic 33–77
[2020-09-02] MEDS: LEVALBUTEROL 1.25 MG/0.5 ML CONCENTRATE NEB NEB SCH ×4 (01:52→18:15)
[2020-09-02] MEDS: SODIUM CHLORIDE 0.9% INJ 10 ML SYR IV SCH ×2 (05:03→17:52)
[2020-09-02 05:29] LABS: BASO # 0.1 10^3/uL (0.0-0.2); BASO % 0.9 % (0.0-1.0); EOS # 0.3 10^3/uL (0.0-0.5); EOS % 5.6 % (0.0-3.0); HEMATOCRIT 24.2 % (36.0-47.0); HEMOGLOBIN 7.5 g/dl (12.0-15.5); LYMPH # 1.3 10^3/uL (1.5-5.0); LYMPH % 23.4 % (24.0-44.0); MEAN CORPUSCULAR HEMOGLOBIN 28.3 pg (27.0-33.0); MEAN CORPUSCULAR VOLUME 91.3 fl (80.0-96.0); MONO # 1.4 10^3/uL (0.0-0.8); MONO % 24.6 % (0.0-5.0); NEUTROPHILS # 2.5 10^3/uL (1.5-8.5); NEUTROPHILS % 45.1 % (36.0-66.0); RED BLOOD COUNT 2.65 10^6/uL (4.00-5.40); WHITE BLOOD COUNT 5.6 10^3/uL (4.0-10.0)
[2020-09-02 05:32] LABS: PLATELET COUNT, AUTOMATED 72 10^3/uL (150-450)
[2020-09-02] MEDS: LEVOTHYROXINE 25MCG TABLET (0.025MG) PO SCH (05:40)
[2020-09-02 05:47] LABS: ALBUMIN 2.1 GM/DL (3.2-5.2); ALT/SGPT 13 U/L (12-78); BILIRUBIN,TOTAL 1.4 MG/DL (0.2-1.0); BLOOD UREA NITROGEN 15 MG/DL (7-18); CALCIUM LEVEL 8.4 MG/DL (8.8-10.2); CARBON DIOXIDE LEVEL 25 MEQ/L (21-32); CHLORIDE LEVEL 104 MEQ/L (98-107); CREATININE FOR GFR 1.66 MG/DL (0.55-1.30); GLOMERULAR FILTRATION RATE 33.2 (>45); GLUCOSE, FASTING 114 MG/DL (70-100); MAGNESIUM LEVEL 2.2 MG/DL (1.8-2.4); POTASSIUM SERUM 3.9 MEQ/L (3.5-5.1); SODIUM LEVEL 135 MEQ/L (136-145); TOTAL PROTEIN 5.2 GM/DL (6.4-8.2)
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
[2020-09-02] MEDS: HumaLOG INSULIN (NovoLOG) PER UNIT SC SCH ×4 (07:58→21:00)
[2020-09-02] MEDS: HYDROMORPHONE HCL 0.5 MG/ 0.5 ML SYRINGE (J1170 PER 1) IV PRN (07:59)
[2020-09-02] MEDS ORDERED: SODIUM BICARBONATE 8.4% INJ 50MEQ 50 ML VIAL As Ordered ONE (08:54)
[2020-09-02] MEDS ORDERED: LIDOCAINE 1% MDV 20ML VIAL As Ordered ONE (08:54)
[2020-09-02] MEDS ORDERED: LIDOCAINE 5% (LIDODERM) PATCH TD SCH (09:00)
[2020-09-02] MEDS: PANTOPRAZOLE 40MG VIAL (C9113 PER 1) IV SCH (10:04)
[2020-09-02] MEDS: LACTULOSE 20 GM/30 ML SYRUP UD PO SCH (10:04)
[2020-09-02 10:45] LABS: PH BODY FLUID 7.571 UNITS (NOT ESTABLISHED); SOURCE, BODY FLUID pH PLEURAL
[2020-09-02 11:29] LABS: APPEARANCE, BODY FLUID CLOUDY (CLEAR); PLEURAL FL COLOR YELLOW (COLORLESS); SOURCE, BODY FLUID PLEURAL
[2020-09-02] MEDS: CEFEPIME HCL 1 GM in D5W MINI-BAG PLUS 50 ML IV SCH (11:48)
[2020-09-02 11:50] LABS: AMYLASE, BODY FLUID 18 U/L (NOT ESTABLISHED); CHOLESTEROL, BODY FLUID < 50 MG/DL (NOT ESTABLISHED); LDH, BODY FLUID 122 U/L (NOT ESTABLISHED); SOURCE, BODY FLUID AMYLASE PLEURAL; SOURCE, BODY FLUID CHOL PLEURAL; SOURCE, BODY FLUID GLUCOSE PLEURAL; SOURCE, BODY FLUID LDH PLEURAL; SOURCE, BODY FLUID TOT PROTEIN PLEURAL; SOURCE, BODY FLUID TRIG PLEURAL; TOTAL PROTEIN, BODY FLUID 1.9 G/DL (NOT ESTABLISHED); TRIGLYCERIDE, BODY FLUID 23 MG/DL (NOT ESTABLISHED)
[2020-09-02] MEDS: NORCO, ANEXSIA 5/325MG TABLET (HYDROcodone/ACETAMINOPHEN) PO PRN ×3 (11:53→20:44)
[2020-09-02 12:15] LABS: CHOLESTEROL LEVEL 83 MG/DL (<200); CHOLESTEROL RISK RATIO 3.458 (<5); HDL CHOLESTEROL 24 MG/DL (>40); LDL CHOLESTEROL 46 MG/DL (<100); NON-HDL-C 59 MG/DL; TRIGLYCERIDES LEVEL 67 MG/DL (<150)
--- NOTE | 2020-09-02 12:18 | REP ---
INDICATION: POST PLEURAVAC INSERTION, 2 VIEW, BEDSIDE. COMPARISON: 08/31/2020 TECHNIQUE: Single frontal portable view of the chest is performed following placement of a pigtail drainage catheter in the left pleural space. FINDINGS: The catheter is visualized and the tip is inferomedially located in the left hemithorax. There is decreased left pleural fluid. There is mild left basilar parenchymal opacity. Right lung is unchanged in appearance. There is a right arm PICC line present as well as a right central venous catheter unchanged. IMPRESSION: Placement of left pigtail pleural drainage catheter. Decreased amount of left pleural fluid. No pneumothorax. <Electronically signed by Santana Pacheco > 09/02/20 [id number]
[2020-09-02 12:24] LABS: HEPATITIS B SURFACE ANTIBODY NEGATIVE (POSITIVE)
[2020-09-02 12:35] LABS: HEPATITIS B SURFACE ANTIGEN NEGATIVE (NEGATIVE)
[2020-09-02 13:03] LABS: HEPATITIS C VIRUS ABY INDEX 0.1 INDEX (<0.8)
[2020-09-02 13:03] LABS: HEMOGLOBIN A1c 6.3 %
[2020-09-02 13:04] LABS: HEPATITIS B CORE ANTIBODY IGM NEGATIVE (NEGATIVE)
--- NOTE | 2020-09-02 13:24 | REP ---
INDICATION: left pigtail, to PLEURAVAC, see spec orders The patient has a history of moderate left pleural effusion on a chest x-ray dated 08/31/2020. COMPARISON: None. TECHNIQUE: The procedure was performed by HERNAN Yi, under the direct supervision of Dr. Dr. Pacheco The risks and benefits of the procedure were explained to the patient and an informed consent was obtained both verbally and written. Directly prior to the start of the procedure a formal time-out was completed in the procedure room. The patient is currently located in the ICU and this exam was done portably. Pleural fluid in last lung zone was localized using ultrasound guidance. The skin was prepped and draped in a sterile fashion. Twenty ML of buffered lidocaine was used as a local anesthetic. Using ultrasound guidance a 10-[place] pigtail catheter was inserted using trocar technique. FINDINGS: Two hundred mL of red tinged colored fluid was withdrawn and sent to the laboratory for further analysis. The catheter was sutured in place and a PLEURAVAC drainage system was hooked up to it. The patient tolerated the procedure well and there were no immediate complications. After the appropriate amount of monitored convalescence, the patient was discharged from the department. IMPRESSION: Ten [place] pigtail catheter placement in the left pleural space under ultrasound guidance. <Electronically signed by Santana Pacheco > 09/02/20 [id number]
[2020-09-02] MEDS: GABAPENTIN 300 MG CAP PO SCH ×2 (16:21→20:44)
[2020-09-02] MEDS ORDERED: NOREPINEPHRINE 4 MG/4 ML AMP As Ordered ONE (20:32)
[2020-09-02] MEDS: NOREPINEPHRINE BITARTRATE 8 MG in D5W 492 ML IV SCH (20:39)
[2020-09-02] MEDS: MICONAZOLE-7 VAGINAL 2% CREAM 47.7 GM PV SCH (20:45)
[2020-09-02] MEDS: MIDODRINE 5 MG TAB PO SCH (21:00)
[2020-09-02] MEDS ORDERED: **NOTE PATIENT COMMENT** MISC XX SCH (21:00)
[2020-09-03] VITALS (79 sets, daily range): BP systolic 65–174; BP diastolic 30–67
[2020-09-03] MEDS: CEFEPIME HCL 1 GM in D5W MINI-BAG PLUS 50 ML IV SCH ×2 (01:20→13:20)
[2020-09-03] MEDS: LEVALBUTEROL 1.25 MG/0.5 ML CONCENTRATE NEB NEB SCH ×4 (01:41→19:36)
[2020-09-03] MEDS: NORCO, ANEXSIA 5/325MG TABLET (HYDROcodone/ACETAMINOPHEN) PO PRN ×5 (03:12→19:27)
[2020-09-03 04:27] LABS: IONIZED CALCIUM 4.6 MG/DL (4.5-5.3)
[2020-09-03 04:31] LABS: BASO # 0.1 10^3/uL (0.0-0.2); BASO % 0.9 % (0.0-1.0); EOS # 0.5 10^3/uL (0.0-0.5); EOS % 6.7 % (0.0-3.0); LYMPH # 1.5 10^3/uL (1.5-5.0); MEAN CORPUSCULAR HEMOGLOBIN 28.8 pg (27.0-33.0); MEAN CORPUSCULAR VOLUME 92.7 fl (80.0-96.0); MONO # 1.7 10^3/uL (0.0-0.8); MONO % 21.2 % (0.0-5.0); NEUTROPHILS % 51.7 % (36.0-66.0); RED BLOOD COUNT 3.13 10^6/uL (4.00-5.40); WHITE BLOOD COUNT 7.8 10^3/uL (4.0-10.0)
[2020-09-03 04:56] LABS: ALBUMIN 2.2 GM/DL (3.2-5.2); BILIRUBIN,TOTAL 1.6 MG/DL (0.2-1.0); CALCIUM LEVEL 7.9 MG/DL (8.8-10.2); CREATININE FOR GFR 1.23 MG/DL (0.55-1.30); GLOMERULAR FILTRATION RATE 46.9 (>45); MAGNESIUM LEVEL 2.1 MG/DL (1.8-2.4); POTASSIUM SERUM 4.2 MEQ/L (3.5-5.1); TOTAL PROTEIN 5.6 GM/DL (6.4-8.2)
[2020-09-03] MEDS: LEVOTHYROXINE 25MCG TABLET (0.025MG) PO SCH (05:37)
[2020-09-03] MEDS: SODIUM CHLORIDE 0.9% INJ 10 ML SYR IV SCH ×2 (06:20→18:00)
[2020-09-03] MEDS ORDERED: CALCIUM GLUCONATE 1,000 MG in NS 100 ML IV ONE ×3 (06:45→20:01)
[2020-09-03] MEDS: HumaLOG INSULIN (NovoLOG) PER UNIT SC SCH ×4 (07:20→21:00)
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
--- NOTE | 2020-09-03 07:36 | REP ---
INDICATION: chest tube. COMPARISON: 09/02/2020 TECHNIQUE: Portable semi upright view FINDINGS: Right-sided jugular line with tip in the SVC stable. Pleural pigtail catheter overlies the left lower lung zone in stable position. Right PICC line with tip in the SVC. Cardiac silhouette is within normal limits and stable. The lung kent demonstrate poor inspiratory effort accentuating the pulmonary vascular markings. Left lower lobe opacity suggesting elements of atelectasis and possible small residual layering effusion. No obvious pneumothorax. IMPRESSION: 1. Lines and tubes in stable position. 2. Poor inspiratory effort limits evaluation. 3. Subtle opacity overlying the left lower lung zone suggesting airspace disease and possible small residual pleural fluid. No pneumothorax. <Electronically signed by Michael Vincent > 09/03/20 0762
[2020-09-03] MEDS: LACTULOSE 20 GM/30 ML SYRUP UD PO SCH (09:12)
[2020-09-03] MEDS: MIDODRINE 5 MG TAB PO SCH ×2 (09:13→16:52)
[2020-09-03] MEDS: GABAPENTIN 300 MG CAP PO SCH ×3 (09:13→20:33)
[2020-09-03] MEDS: PANTOPRAZOLE 40MG VIAL (C9113 PER 1) IV SCH (09:13)
[2020-09-03] MEDS: **NOTE PATIENT COMMENT** MISC XX SCH (09:14)
--- NOTE | 2020-09-03 14:57 | CCN ---
DATE: 09/02/2020 SUBJECTIVE: Patient was seen and examined at the bedside today morning during the rounds and again in the evening in the intensive care unit (ICU). Patient remains oliguric. Her edema is getting worse. There is no improvement of the renal function. She is not requiring any pressors at this time. Her hemoglobin dropped today as compared with yesterday. Patient got left-sided pleural pigtail catheter placed, 400 mL of fluid came out, 200 mL was sent to the lab. We tried to do the bedside hemodialysis in the ICU today but after about half an hour her blood pressures dropped and we could not continue the hemodialysis procedure, so I had to evaluate the patient again for initiation of continuous venovenous hemodiafiltration (CVVHDF). OBJECTIVE: Vital signs: Temperature is 97.6 degrees Fahrenheit, blood pressure 92/50, pulse is 86, respiratory rate of 19, saturating 98% on nasal cannula at one liter. Intake and output: Urine output recorded is 250 mL since overnight. Chest tube drainage so far is 420 mL. Weight in the bed scale is 105.5 kg. PHYSICAL EXAMINATION: General: Patient is awake, alert, oriented times three, laying in bed, no apparent distress. Head and neck exam: Extraocular muscles intact. Pupils equally round and reactive to light. Mucous membranes are moist. Neck is supple. She has a right internal jugular (IJ) non-tunneled hemodialysis catheter. Cardiovascular: S1, S2, regular rate. 3+ edema of the bilateral lower extremities. Respiratory: Mildly decreased breath sounds at the bases. Inspiratory crackles at the bases on deep inspiration. She has a pigtail catheter on the left side. Abdomen: Soft, obese, positive bowel sounds. Abdominal wall edema was noted. Genitourinary: She has an indwelling Teixeira catheter. Musculoskeletal: 2+ edema in the legs and 3+ edema in the thighs was noted. Central nervous system ([employer]ER): No focal deficits. Power is 5/5 in bilateral upper extremities. LABORATORY REVIEW: CBC showed WBC 5.6, hemoglobin 7.5, platelets are 72. BMP showed sodium 135, potassium 3.9, chloride 104, bicarbonate 25, BUN 15, creatinine 1.6, it was 1.4 yesterday. Hemoglobin A1c is 6.3. Magnesium 2.2, total bilirubin 1.4. Microbiology: All the repeat cultures are negative so far. CURRENT INPATIENT MEDICATIONS: Patients medications were all reviewed by myself. She continues to be on IV cefepime. I am going to start her on midodrine 5 mg by mouth three times a day. Levophed was needed during the dialysis procedure but now it has been weaned off. ASSESSMENT AND PLAN: 1. Acute oliguric renal failure. Patient could not tolerate regular intermittent hemodialysis. She will be restarted on continuous venovenous hemodiafiltration (CVVHDF). Fluid removal parameters according to the mean arterial pressures (MAPs) were ordered and discussed with the patient. 2. Anasarca. No significant response to the diuretics. Fluid removal as mentioned above according to continuous venovenous hemodiafiltration (CVVHDF). 3. Cirrhosis with ascites. Continue current dose of rifaximin and lactulose. Fluid status to be controlled with dialysis. 4. Large left-sided pleural effusion. Patient is status post pigtail catheter placement. 400 mL of fluid has come out so far. 5. Hypotension. Continue the empiric antibiotics. Start on midodrine 5 mg by mouth every 8 hours. 6. Blood loss anemia. Patient will be given one unit of packed red blood cells (PRBC) transfusion with dialysis. Total critical care time spent in the management of this patient today morning and again in the evening excluding all the procedures was 40 minutes. MTDD
[2020-09-03 18:24] LABS: HEMATOCRIT 27.8 % (36.0-47.0); HEMOGLOBIN 8.8 g/dl (12.0-15.5); MEAN CORPUSCULAR HGB CONC 31.7 g/dl (32.0-36.5); MEAN CORPUSCULAR VOLUME 91.7 fl (80.0-96.0); RED BLOOD COUNT 3.03 10^6/uL (4.00-5.40); WHITE BLOOD COUNT 8.5 10^3/uL (4.0-10.0)
[2020-09-03 18:31] LABS: PLATELET COUNT, AUTOMATED 83 10^3/uL (150-450)
[2020-09-03 18:32] LABS: IONIZED CALCIUM 4.4 MG/DL (4.5-5.3)
[2020-09-03 19:12] LABS: CALCIUM LEVEL 7.7 MG/DL (8.8-10.2); CREATININE FOR GFR 1.07 MG/DL (0.55-1.30); GLOMERULAR FILTRATION RATE 55.1 (>45); MAGNESIUM LEVEL 2.2 MG/DL (1.8-2.4); PHOSPHORUS LEVEL 2.5 MG/DL (2.5-4.9); POTASSIUM SERUM 4.4 MEQ/L (3.5-5.1)
[2020-09-03] MEDS: MICONAZOLE-7 VAGINAL 2% CREAM 47.7 GM PV SCH (20:34)
[2020-09-03] MEDS: LIDOCAINE 5% (LIDODERM) PATCH TD SCH (20:34)
[2020-09-03] MEDS: ONDANSETRON 4MG/2ML VIAL IV PRN (21:41)
[2020-09-03] MEDS: NOREPINEPHRINE BITARTRATE 8 MG in D5W 492 ML IV SCH (23:50)
[2020-09-04] VITALS (130 sets, daily range): BP systolic 67–147; BP diastolic 33–65
[2020-09-04] MEDS: CEFEPIME HCL 1 GM in D5W MINI-BAG PLUS 50 ML IV SCH ×2 (00:58→12:03)
[2020-09-04] MEDS: LEVALBUTEROL 1.25 MG/0.5 ML CONCENTRATE NEB NEB SCH ×4 (02:36→19:48)
[2020-09-04] MEDS: ALTEPLASE 2MG/2ML VIAL IV PRN (05:38)
[2020-09-04 05:46] LABS: IONIZED CALCIUM 4.6 MG/DL (4.5-5.3)
[2020-09-04 05:53] LABS: BASO # 0.1 10^3/uL (0.0-0.2); EOS # 0.4 10^3/uL (0.0-0.5); EOS % 6.2 % (0.0-3.0); HEMATOCRIT 27.1 % (36.0-47.0); HEMOGLOBIN 8.5 g/dl (12.0-15.5); LYMPH # 1.2 10^3/uL (1.5-5.0); MEAN CORPUSCULAR HEMOGLOBIN 29.1 pg (27.0-33.0); MEAN CORPUSCULAR HGB CONC 31.4 g/dl (32.0-36.5); MEAN CORPUSCULAR VOLUME 92.8 fl (80.0-96.0); MONO # 1.4 10^3/uL (0.0-0.8); MONO % 21.6 % (0.0-5.0); NEUTROPHILS # 3.3 10^3/uL (1.5-8.5); NEUTROPHILS % 51.9 % (36.0-66.0); RED BLOOD COUNT 2.92 10^6/uL (4.00-5.40); WHITE BLOOD COUNT 6.3 10^3/uL (4.0-10.0)
[2020-09-04 05:59] LABS: PLATELET COUNT, AUTOMATED 56 10^3/uL (150-450)
[2020-09-04] MEDS: SODIUM CHLORIDE 0.9% INJ 10 ML SYR IV SCH ×2 (06:00→17:39)
[2020-09-04 06:03] LABS: ALBUMIN 2.3 GM/DL (3.2-5.2); ALT/SGPT 12 U/L (12-78); BILIRUBIN,TOTAL 1.3 MG/DL (0.2-1.0); BLOOD UREA NITROGEN 7 MG/DL (7-18); CALCIUM LEVEL 7.9 MG/DL (8.8-10.2); CARBON DIOXIDE LEVEL 27 MEQ/L (21-32); CHLORIDE LEVEL 106 MEQ/L (98-107); CREATININE FOR GFR 0.94 MG/DL (0.55-1.30); GLOMERULAR FILTRATION RATE > 60.0 (>45); GLUCOSE, FASTING 108 MG/DL (70-100); MAGNESIUM LEVEL 2.1 MG/DL (1.8-2.4); PHOSPHORUS LEVEL 2.4 MG/DL (2.5-4.9); POTASSIUM SERUM 4.4 MEQ/L (3.5-5.1); SODIUM LEVEL 137 MEQ/L (136-145); TOTAL PROTEIN 5.5 GM/DL (6.4-8.2)
[2020-09-04] MEDS ORDERED: CALCIUM GLUCONATE 1,000 MG in NS 100 ML IV ONE ×2 (06:30→16:00)
[2020-09-04] MEDS: LEVOTHYROXINE 25MCG TABLET (0.025MG) PO SCH (06:41)
[2020-09-04] MEDS: NORCO, ANEXSIA 5/325MG TABLET (HYDROcodone/ACETAMINOPHEN) PO PRN ×4 (06:42→22:45)
[2020-09-04] MEDS ORDERED: SODIUM PHOSPHATE INJ 15 MMOL in D5W 500 ML IV ONE (07:30)
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
[2020-09-04] MEDS: HumaLOG INSULIN (NovoLOG) PER UNIT SC SCH ×4 (08:18→20:13)
[2020-09-04] MEDS: GABAPENTIN 300 MG CAP PO SCH ×3 (08:18→20:12)
[2020-09-04] MEDS: PANTOPRAZOLE 40MG VIAL (C9113 PER 1) IV SCH (08:18)
[2020-09-04] MEDS: MIDODRINE 5 MG TAB PO SCH ×2 (08:18→15:27)
[2020-09-04] MEDS: LACTULOSE 20 GM/30 ML SYRUP UD PO SCH (08:18)
[2020-09-04] MEDS: **NOTE PATIENT COMMENT** MISC XX SCH (08:19)
[2020-09-04] MEDS ORDERED: NOREPINEPHRINE 4 MG/4 ML AMP As Ordered ONE (08:26)
[2020-09-04] MEDS: NOREPINEPHRINE BITARTRATE 8 MG in D5W 492 ML IV SCH ×2 (08:30→21:01)
--- NOTE | 2020-09-04 11:04 | REP ---
INDICATION: pleural effusion. COMPARISON: 09/03/2020 TECHNIQUE: Single frontal portable view of the chest was performed. FINDINGS: Right arm PICC line and central venous catheter appear unchanged. Left pigtail drainage catheter inferiorly is unchanged. The lungs are unchanged in appearance with mild hazy opacity in the left lung base. Heart mediastinum are unchanged. IMPRESSION: Stable exam. <Electronically signed by Santana Pacheco > 09/04/20 1100
--- NOTE | 2020-09-04 11:35 | IPN ---
DATE: 09/02/2020 SUBJECTIVE: The patient was seen and examined at the bedside today morning in the ICU. Her CVVHDF was on hold because of some problem with the machine. New cassette width was being loaded when I saw her. She was started on CVVHDF last night. She was one jawsinder of Levophed when I saw her. She is otherwise awake and alert. She was given one unit of PRBC transfusion last night as well when she was started on CVVHDF. She remains oliguric. OBJECTIVE: VITAL SIGNS: Temperature is 98 degrees Fahrenheit, blood pressure is 120/58, pulse is 90, respiratory rate of 14, saturating 99% on nasal cannula at 2 liters. Intake and Output Urine output recorded as 133 mL. Ultrafiltration with CVVHDF so far is 963 mL. Chest tube output is 175 mL. Weight on the bed scale is 107 kg. PHYSICAL EXAMINATION: GENERAL APPEARANCE: The patient is awake, alert, oriented x3, laying in bed in no apparent distress. HEAD AND NECK: Extraocular muscles intact. Pupils are equally round and reactive to light. Right IJ non tunneled hemodialysis catheter is noted. CARDIOVASCULAR: S1, S2, regular rate. EXTREMITIES: 2+ edema of the bilateral lower extremities. RESPIRATORY: Mildly decreased breath sounds at the bases. She has a left sided pigtail catheter. ABDOMEN: Soft, obese, positive bowel sounds. Abdominal wall edema is noted with a mild amount of ascites. GENITOURINARY: She has an indwelling Teixeira catheter. MUSCULOSKELETAL: 2+ edema of the bilateral lower extremities. C&S: No focal deficits. 5/5 strength in bilateral upper extremities. LAB REVIEW: CBC showed a WBC 8.5, hemoglobin 8.8, platelets are 83. BMP showed sodium 135, potassium 4.2, chloride 104, bicarbonate 26, BUN 11, creatinine is 1.23. Calcium 7.9, ionized calcium is 4.6. Phosphorous is 3, magnesium is 2.1. Total bilirubin is 1.6. MICROBIOLOGY: Gram stain of the pleural fluid showed few RBCs, few WBCs, no organism was seen. IMAGING: A chest x-ray was done today morning which showed lines and tubes in stable position. Poor inspiratory effort. Subtle opacity overlying the left low lung zone suggesting air space disease and small bilateral pleural fluid. CURRENT INPATIENT MEDICATIONS: The patient's medications were all reviewed by myself. She continues to be on IV Cefepime. No other significant change in the medications today except that she was started on Midodrine 5 mg p.o. q. 8 hourly. ASSESSMENT AND PLAN: * Acute oliguric renal failure - The patient was restarted on CVVHDF. She is tolerating it well. Fluid removal parameters according to mean arterial pressures were ordered and discussed with the nursing staff. * Anasarca it is secondary to renal failure and liver cirrhosis. Fluid status is being managed with dialysis. * Left sided pleural effusion, status post pigtail catheter placement pleural drainage is slowly decreasing. Continue fluid removal as tolerated by her blood pressure. * Hypotension she is currently on low dose Levophed. She has also been started on Midodrine. * Cirrhosis with ascites - The patient has no signs of hepatic encephalopathy. She is getting lactulose only once a day along with Rifaximin. Total critical care time spent in the morning of this patient today morning in the ICU excluding all the procedures was 35 minutes. MTDD
[2020-09-04 15:54] LABS: HEMATOCRIT 25.3 % (36.0-47.0); HEMOGLOBIN 7.8 g/dl (12.0-15.5); MEAN CORPUSCULAR HEMOGLOBIN 28.8 pg (27.0-33.0); MEAN CORPUSCULAR HGB CONC 30.8 g/dl (32.0-36.5); MEAN CORPUSCULAR VOLUME 93.4 fl (80.0-96.0); RED BLOOD COUNT 2.71 10^6/uL (4.00-5.40); WHITE BLOOD COUNT 7.7 10^3/uL (4.0-10.0)
[2020-09-04 16:01] LABS: PLATELET COUNT, AUTOMATED 70 10^3/uL (150-450)
[2020-09-04 16:11] LABS: CREATININE FOR GFR 1.04 MG/DL (0.55-1.30); MAGNESIUM LEVEL 2.2 MG/DL (1.8-2.4); PHOSPHORUS LEVEL 2.5 MG/DL (2.5-4.9); POTASSIUM SERUM 4.3 MEQ/L (3.5-5.1)
[2020-09-04] MEDS: LIDOCAINE 5% (LIDODERM) PATCH TD SCH (20:12)
[2020-09-04] MEDS: MICONAZOLE-7 VAGINAL 2% CREAM 47.7 GM PV SCH (20:13)
[2020-09-04] MEDS: SODIUM CHLORIDE 0.9% INJ 10 ML SYR IV PRN (22:45)
[2020-09-05] VITALS (51 sets, daily range): BP systolic 87–139; BP diastolic 38–63
[2020-09-05] MEDS: CEFEPIME HCL 1 GM in D5W MINI-BAG PLUS 50 ML IV SCH (01:46)
[2020-09-05] MEDS: LEVALBUTEROL 1.25 MG/0.5 ML CONCENTRATE NEB NEB SCH ×4 (01:55→19:48)
[2020-09-05 04:40] LABS: HEMATOCRIT 23.9 % (36.0-47.0); HEMOGLOBIN 7.3 g/dl (12.0-15.5); MEAN CORPUSCULAR HEMOGLOBIN 28.6 pg (27.0-33.0); MEAN CORPUSCULAR HGB CONC 30.5 g/dl (32.0-36.5); MEAN CORPUSCULAR VOLUME 93.7 fl (80.0-96.0); RED BLOOD COUNT 2.55 10^6/uL (4.00-5.40); WHITE BLOOD COUNT 7.5 10^3/uL (4.0-10.0)
[2020-09-05 04:41] LABS: PLATELET COUNT, AUTOMATED 77 10^3/uL (150-450)
[2020-09-05] MEDS ORDERED: CALCIUM GLUCONATE 1,000 MG in NS 100 ML IV ONE (05:00)
[2020-09-05 05:03] LABS: ALBUMIN 3.1 GM/DL (3.2-5.2); ALT/SGPT 10 U/L (12-78); BILIRUBIN,TOTAL 1.3 MG/DL (0.2-1.0); BLOOD UREA NITROGEN 6 MG/DL (7-18); CALCIUM LEVEL 7.8 MG/DL (8.8-10.2); CARBON DIOXIDE LEVEL 27 MEQ/L (21-32); CHLORIDE LEVEL 105 MEQ/L (98-107); CREATININE FOR GFR 0.95 MG/DL (0.55-1.30); GLOMERULAR FILTRATION RATE > 60.0 (>45); GLUCOSE, FASTING 145 MG/DL (70-100); MAGNESIUM LEVEL 2.3 MG/DL (1.8-2.4); PHOSPHORUS LEVEL 2.3 MG/DL (2.5-4.9); POTASSIUM SERUM 3.9 MEQ/L (3.5-5.1); SODIUM LEVEL 137 MEQ/L (136-145); TOTAL PROTEIN 5.9 GM/DL (6.4-8.2)
[2020-09-05] MEDS: NORCO, ANEXSIA 5/325MG TABLET (HYDROcodone/ACETAMINOPHEN) PO PRN ×4 (05:23→20:16)
[2020-09-05] MEDS: SODIUM CHLORIDE 0.9% INJ 10 ML SYR IV SCH ×2 (06:00→17:46)
[2020-09-05] MEDS: LEVOTHYROXINE 25MCG TABLET (0.025MG) PO SCH (06:05)
[2020-09-05] MEDS ORDERED: KCL 20MEQ IN 100ML SWI (KRUN) 20 MEQ in IV 1 EA IV ONE ×2 (06:15)
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
[2020-09-05] MEDS ORDERED: SODIUM PHOSPHATE INJ 15 MMOL in D5W 250 ML IV ONE ×2 (07:15→18:30)
[2020-09-05] MEDS: HumaLOG INSULIN (NovoLOG) PER UNIT SC SCH ×4 (07:42→20:17)
--- NOTE | 2020-09-05 08:15 | REP ---
INDICATION: pleural effusion COMPARISON: 09/04/2020 TECHNIQUE: Portable AP view of the chest FINDINGS: Pigtail pleural catheter at the left base is unchanged. Hazy opacification of the left mid to lower hemithorax may reflect small amount of layering pleural fluid and atelectasis similar to prior examination. Right hemithorax is clear. Right IJ line with tip in the SVC. Right PICC line with tip in the SVC. Cardiac silhouette is within normal limits and stable. IMPRESSION: 1. Continued subtle hazy opacification of the left mid to lower lung zone suggesting small residual layering effusion and underlying atelectasis similar to prior examination. No pneumothorax. 2. No new acute process identified <Electronically signed by Michael Vincent > 09/05/20 0894
[2020-09-05] MEDS: GABAPENTIN 300 MG CAP PO SCH ×3 (08:47→20:16)
[2020-09-05] MEDS: LACTULOSE 20 GM/30 ML SYRUP UD PO SCH (08:47)
[2020-09-05] MEDS: PANTOPRAZOLE 40MG VIAL (C9113 PER 1) IV SCH (08:47)
[2020-09-05] MEDS: MIDODRINE 5 MG TAB PO SCH ×2 (08:47→16:15)
[2020-09-05] MEDS: **NOTE PATIENT COMMENT** MISC XX SCH (10:45)
[2020-09-05] MEDS: SODIUM CHLORIDE 0.9% INJ 10 ML SYR IV PRN (16:16)
[2020-09-05 16:32] LABS: IONIZED CALCIUM 4.5 MG/DL (4.5-5.3)
[2020-09-05 16:58] LABS: GLOMERULAR FILTRATION RATE 59.6 (>45); PHOSPHORUS LEVEL 2.3 MG/DL (2.5-4.9); POTASSIUM SERUM 4.3 MEQ/L (3.5-5.1)
[2020-09-05 17:27] LABS: MAGNESIUM LEVEL 2.3 MG/DL (1.8-2.4)
[2020-09-05] MEDS ORDERED: CALCIUM GLUCONATE 1,000 MG in D5W MINI-BAG PLUS 100 ML IV ONE (17:30)
[2020-09-05 17:43] LABS: HEMATOCRIT 26.2 % (36.0-47.0); MEAN CORPUSCULAR HGB CONC 30.5 g/dl (32.0-36.5); MEAN CORPUSCULAR VOLUME 94.9 fl (80.0-96.0); RED BLOOD COUNT 2.76 10^6/uL (4.00-5.40); WHITE BLOOD COUNT 6.2 10^3/uL (4.0-10.0)
[2020-09-05 17:45] LABS: PLATELET COUNT, AUTOMATED 63 10^3/uL (150-450)
[2020-09-05] MEDS: LIDOCAINE 5% (LIDODERM) PATCH TD SCH (20:17)
[2020-09-05] MEDS: MICONAZOLE-7 VAGINAL 2% CREAM 47.7 GM PV SCH (20:17)
[2020-09-05] MEDS: NOREPINEPHRINE BITARTRATE 8 MG in D5W 492 ML IV SCH (21:01)
[2020-09-06] VITALS (34 sets, daily range): BP systolic 82–143; BP diastolic 39–66
[2020-09-06] MEDS: LEVALBUTEROL 1.25 MG/0.5 ML CONCENTRATE NEB NEB SCH ×4 (01:19→19:59)
[2020-09-06 04:12] LABS: IONIZED CALCIUM 4.5 MG/DL (4.5-5.3)
[2020-09-06 04:13] LABS: BASO # 0.1 10^3/uL (0.0-0.2); BASO % 1.1 % (0.0-1.0); EOS # 0.3 10^3/uL (0.0-0.5); EOS % 5.1 % (0.0-3.0); HEMATOCRIT 24.4 % (36.0-47.0); HEMOGLOBIN 7.5 g/dl (12.0-15.5); LYMPH % 19.5 % (24.0-44.0); MEAN CORPUSCULAR HEMOGLOBIN 29.1 pg (27.0-33.0); MEAN CORPUSCULAR HGB CONC 30.7 g/dl (32.0-36.5); MEAN CORPUSCULAR VOLUME 94.6 fl (80.0-96.0); MONO % 18.6 % (0.0-5.0); NEUTROPHILS # 2.9 10^3/uL (1.5-8.5); NEUTROPHILS % 55.5 % (36.0-66.0); RED BLOOD COUNT 2.58 10^6/uL (4.00-5.40); WHITE BLOOD COUNT 5.3 10^3/uL (4.0-10.0)
[2020-09-06 04:22] LABS: PLATELET COUNT, AUTOMATED 55 10^3/uL (150-450)
[2020-09-06] MEDS ORDERED: CALCIUM GLUCONATE 1,000 MG in NS 100 ML IV ONE ×2 (04:30→17:30)
[2020-09-06 04:41] LABS: ALBUMIN 3.5 GM/DL (3.2-5.2); ALT/SGPT 13 U/L (12-78); BILIRUBIN,TOTAL 1.5 MG/DL (0.2-1.0); BLOOD UREA NITROGEN 4 MG/DL (7-18); CALCIUM LEVEL 7.9 MG/DL (8.8-10.2); CARBON DIOXIDE LEVEL 28 MEQ/L (21-32); CHLORIDE LEVEL 103 MEQ/L (98-107); CREATININE FOR GFR 0.88 MG/DL (0.55-1.30); GLOMERULAR FILTRATION RATE > 60.0 (>45); GLUCOSE, FASTING 103 MG/DL (70-100); MAGNESIUM LEVEL 2.3 MG/DL (1.8-2.4); PHOSPHORUS LEVEL 2.6 MG/DL (2.5-4.9); POTASSIUM SERUM 4.2 MEQ/L (3.5-5.1); SODIUM LEVEL 134 MEQ/L (136-145)
[2020-09-06] MEDS: SODIUM CHLORIDE 0.9% INJ 10 ML SYR IV SCH ×2 (06:00→18:00)
[2020-09-06] MEDS: LEVOTHYROXINE 25MCG TABLET (0.025MG) PO SCH (06:30)
[2020-09-06] MEDS: NORCO, ANEXSIA 5/325MG TABLET (HYDROcodone/ACETAMINOPHEN) PO PRN ×4 (06:30→20:29)
[2020-09-06] MEDS: HumaLOG INSULIN (NovoLOG) PER UNIT SC SCH ×4 (07:30→21:00)
[2020-09-06] MEDS: MIDODRINE 5 MG TAB PO SCH ×2 (08:10→16:14)
--- NOTE | 2020-09-06 08:17 | REP ---
INDICATION: pleural effusion COMPARISON: 09/05/2020 TECHNIQUE: Portable AP view of the chest FINDINGS: Pigtail pleural catheter overlying the left lower hemithorax is unchanged. Right IJ line with tip in the SVC unchanged. The mediastinum and cardiac silhouette are stable. The lung kent are unchanged and mild left perihilar infiltrate/atelectasis cannot be excluded. No obvious residual effusion. No pneumothorax. IMPRESSION: *No significant change from 09/05/2020. *No obvious new process appreciated. *No significant residual effusion identified by portable examination. *Subtle left perihilar atelectasis cannot be excluded. <Electronically signed by Michael Vincent > 09/06/20 [id number]
[2020-09-06] MEDS: **NOTE PATIENT COMMENT** MISC XX SCH (09:03)
[2020-09-06] MEDS: LACTULOSE 20 GM/30 ML SYRUP UD PO SCH (09:03)
[2020-09-06] MEDS: PANTOPRAZOLE 40MG VIAL (C9113 PER 1) IV SCH (09:03)
[2020-09-06] MEDS: GABAPENTIN 300 MG CAP PO SCH ×3 (09:03→20:27)
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
[2020-09-06 11:54] LABS: APPEARANCE, URINE MANUAL TURBID (CLEAR); COLOR, URINE MANUAL RED (YELLOW)
[2020-09-06 12:01] LABS: BILIRUBIN, URINE MANUAL NEGATIVE (NEGATIVE); BLOOD URINE MANUAL POSITIVE (NEGATIVE); GLUCOSE, URINE (UA) MANUAL NEGATIVE (NEGATIVE); KETONE, URINE MANUAL NEGATIVE (NEGATIVE); LEUKOCYTE ESTERASE, URINE MAN POSITIVE (NEGATIVE); NITRITE, URINE MANUAL NEGATIVE (NEGATIVE); PROTEIN, URINE MANUAL 3+ mg/dL (NEGATIVE); SPECIFIC GRAVITY,URINE MANUAL 1.025 (1.002-1.035); UROBILINOGEN, URINE MANUAL NORMAL (NORMAL)
[2020-09-06 12:02] LABS: BACTERIA, URINE MOD AMOUNT; MUCUS, URINE SMALL AMOUNT (NEGATIVE); RBC, URINE TNTC /hpf (0-3); SQUAMOUS EPITHELIAL CELL URINE SMALL AMOUNT /hpf (SMALL AMT); WBC, URINE 20-30 /hpf (0-3); YEAST, URINE MOD AMOUNT
[2020-09-06 16:19] LABS: IONIZED CALCIUM 4.6 MG/DL (4.5-5.3)
[2020-09-06 16:29] LABS: HEMATOCRIT 28.7 % (36.0-47.0); HEMOGLOBIN 8.9 g/dl (12.0-15.5); MEAN CORPUSCULAR HEMOGLOBIN 29.1 pg (27.0-33.0); MEAN CORPUSCULAR VOLUME 93.8 fl (80.0-96.0); RED BLOOD COUNT 3.06 10^6/uL (4.00-5.40); WHITE BLOOD COUNT 5.8 10^3/uL (4.0-10.0)
[2020-09-06 16:30] LABS: PLATELET COUNT, AUTOMATED 63 10^3/uL (150-450)
[2020-09-06 16:45] LABS: BLOOD UREA NITROGEN 4 MG/DL (7-18); CALCIUM LEVEL 7.9 MG/DL (8.8-10.2); CARBON DIOXIDE LEVEL 27 MEQ/L (21-32); CHLORIDE LEVEL 104 MEQ/L (98-107); GLOMERULAR FILTRATION RATE > 60.0 (>45); GLUCOSE, FASTING 107 MG/DL (70-100); MAGNESIUM LEVEL 2.3 MG/DL (1.8-2.4); PHOSPHORUS LEVEL 2.3 MG/DL (2.5-4.9); POTASSIUM SERUM 4.4 MEQ/L (3.5-5.1); SODIUM LEVEL 136 MEQ/L (136-145)
[2020-09-06] MEDS ORDERED: SODIUM PHOSPHATE INJ 30 MMOL in D5W 500 ML IV ONE (18:30)
[2020-09-06] MEDS: LIDOCAINE 5% (LIDODERM) PATCH TD SCH (20:30)
[2020-09-06] MEDS: ONDANSETRON 4MG/2ML VIAL IV PRN (20:30)
[2020-09-06] MEDS: MICONAZOLE-7 VAGINAL 2% CREAM 47.7 GM PV SCH (20:31)
[2020-09-07] VITALS (24 sets, daily range): BP systolic 92–139; BP diastolic 47–67
[2020-09-07] MEDS: LEVALBUTEROL 1.25 MG/0.5 ML CONCENTRATE NEB NEB SCH ×4 (01:50→19:32)
[2020-09-07] MEDS: NORCO, ANEXSIA 5/325MG TABLET (HYDROcodone/ACETAMINOPHEN) PO PRN ×5 (01:56→20:24)
[2020-09-07] MEDS: ALTEPLASE 2MG/2ML VIAL IV PRN (04:00)
[2020-09-07 04:36] LABS: HEMOGLOBIN 8.6 g/dl (12.0-15.5); MEAN CORPUSCULAR HEMOGLOBIN 29.2 pg (27.0-33.0); MEAN CORPUSCULAR HGB CONC 30.7 g/dl (32.0-36.5); MEAN CORPUSCULAR VOLUME 94.9 fl (80.0-96.0); RED BLOOD COUNT 2.95 10^6/uL (4.00-5.40); WHITE BLOOD COUNT 5.8 10^3/uL (4.0-10.0)
[2020-09-07 04:38] LABS: IONIZED CALCIUM 4.6 MG/DL (4.5-5.3)
[2020-09-07 04:46] LABS: PLATELET COUNT, AUTOMATED 67 10^3/uL (150-450)
[2020-09-07 05:26] LABS: BLOOD UREA NITROGEN 3 MG/DL (7-18); CALCIUM LEVEL 7.7 MG/DL (8.8-10.2); CARBON DIOXIDE LEVEL 28 MEQ/L (21-32); CHLORIDE LEVEL 104 MEQ/L (98-107); CREATININE FOR GFR 0.86 MG/DL (0.55-1.30); GLOMERULAR FILTRATION RATE > 60.0 (>45); GLUCOSE, FASTING 109 MG/DL (70-100); MAGNESIUM LEVEL 2.2 MG/DL (1.8-2.4); POTASSIUM SERUM 4.2 MEQ/L (3.5-5.1); SODIUM LEVEL 136 MEQ/L (136-145)
[2020-09-07] MEDS: LEVOTHYROXINE 25MCG TABLET (0.025MG) PO SCH (05:46)
[2020-09-07] MEDS: SODIUM CHLORIDE 0.9% INJ 10 ML SYR IV SCH ×2 (05:48→18:05)
[2020-09-07] MEDS: BISACODYL 10 MG SUPP PR SCH ×2 (05:49→18:00)
[2020-09-07] MEDS ORDERED: CALCIUM GLUCONATE 1,000 MG in NS 100 ML IV ONE ×3 (06:00→17:00)
--- NOTE | 2020-09-07 07:19 | REP ---
INDICATION: pleural effusion COMPARISON: 09/06/2020 TECHNIQUE: Portable AP view of the chest FINDINGS: The Pig tail pleural catheter is in stable position overlying the left lower hemithorax. Right IJ line with tip in the SVC. Right PICC line with tip in the brachiocephalic/SVC confluence The cardiac silhouette is normal. There is no obvious residual pleural effusion or pneumothorax. There is generalized asymmetric hazy opacification of the left hemithorax which may be technical, but subtle layering pleural fluid and or airspace disease cannot be excluded. No focal consolidation. IMPRESSION: 1. No obvious residual left-sided pleural effusion or pneumothorax. However, a subtle asymmetric haziness to the left hemithorax may reflect small amount of layering fluid or generalized airspace disease.. <Electronically signed by Michael Vincent > 09/07/20 0715
[2020-09-07] MEDS: HumaLOG INSULIN (NovoLOG) PER UNIT SC SCH ×4 (07:54→21:00)
[2020-09-07] MEDS: MIDODRINE 5 MG TAB PO SCH ×3 (07:55→16:11)
[2020-09-07] MEDS: GABAPENTIN 300 MG CAP PO SCH ×3 (07:55→20:23)
[2020-09-07] MEDS: LACTULOSE 20 GM/30 ML SYRUP UD PO SCH (07:55)
[2020-09-07] MEDS: PANTOPRAZOLE 40MG VIAL (C9113 PER 1) IV SCH (07:56)
[2020-09-07] MEDS: **NOTE PATIENT COMMENT** MISC XX SCH (07:57)
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
--- NOTE | 2020-09-07 09:16 | IPN ---
DATE: 09/04/2020 SUBJECTIVE: The patient was seen and examined at the bed today morning in the ICU. She continues to be on CVVHDF. She was otherwise awake and eating her breakfast when I saw her. She is still requiring Levophed. She was on 3 mcg when I saw her. She remains oliguric. There is no improvement in the renal function and because of the low blood pressures, we are having difficulty removing fluid. She denies any active complaints at this time. OBJECTIVE: VITAL SIGNS: Temperature is 98.8 degrees Fahrenheit, blood pressure 103/46, pulse is 99, respiratory rate of 18, saturating 95% on room air. Intake and Output urine output recorded as 74 mL since overnight. Chest tube drainage is 82 mL. CRRT interpretation so far since overnight is 371 mL and yesterday it was 963 mL. Weight on the bed scale is 105 kg which is lower than yesterday. PHYSICAL EXAMINATION: GENERAL APPEARANCE: The patient is awake, alert, oriented x3, laying in bed in no apparent distress. HEAD AND NECK: Extraocular muscles intact. Pupils are equally round and reactive to light. Neck is supple. She has a right IJ non tunneled hemodialysis catheter which is being used for CVVHDF. CARDIOVASCULAR: S1, S2, regular rate. EXTREMITIES: 3+ edema of the bilateral lower extremities. RESPIRATORY: Mildly decreased breath sounds at the bases. She has a pigtail catheter on the left side. ABDOMEN: Soft, obese, positive bowel sounds, abdominal wall edema and a moderate amount of ascites was noted. GENITOURINARY: She has an indwelling Teixeira catheter. MUSCULOSKELETAL: She has 3+ edema in the thighs, 2+ edema in the bilateral lower extremities. C&S: No focal deficits. She is awake. She is communicating. She follows commands and moves all extremities. LAB REVIEW: CBC showed a WBC of 6.3, hemoglobin 8.5, platelets are 56. PTT is 44.4. BMP showed sodium 137, potassium 4.4, chloride 106, bicarbonate 27, BUN 7, creatinine is 0.9. Glucose 108, calcium 7.9, ionized calcium is 4.6, phosphorous is 2.4. Total bilirubin 1.3, AST is 32, ALT is 12, alkaline phosphatase is 161, albumin is 2.3. MICROBIOLOGY: All the blood cultures and fluid cultures are negative so far. IMAGING: A chest x-ray was done today morning which showed the lungs are unchanged in appearance with mild hazy opacity in the left lung base. CURRENT INPATIENT MEDICATIONS: The patient's medications were all reviewed by myself. She continues to be on IV Cefepime. She is on Levophed at 3 mcg which is being weaned down. She is getting electrolyte replacements according to CVVHDF. I have ordered Albumin 25% 25 grams IV q. 8 hourly. ASSESSMENT AND PLAN: 1. Acute oliguric renal failure - The patient remains oliguric, volume overloaded with generalized anasarca. She could not tolerate regular hemodialysis. I am doing CVVHDF on her and fluid is removed according to MAP parameters. 2. Hypotension - This patient is on empiric antibiotics. She is requiring Levophed at 3 mcg. I have started her on Albumin 25%, 25 grams IV q. 8 hourly to help with her blood pressure. 3. Anasarca as mentioned above, we are trying to remove fluid with CVVHDF if her blood pressure tolerates. 4. Left sided pleural effusion status post pigtail catheter output from the chest tube is decreasing with further fluid removal with dialysis. 5. Blood loss anemia - Hemoglobin is stable at 8.5. Transfuse p.r.n. for hemoglobin below 8 only. Because of renal failure, I am starting her on Aranesp as well. 6. Thrombocytopenia - The patients platelet counts are low because of cirrhosis. No need of blood transfusion at this time. She most likely has splenic platelet sequestration. 7. Left lower lobe pneumonia she continues to be on IV Cefepime. 8. CAMPBELL cirrhosis and ascites she continues to be on Rifaximin and Lactulose. Fluid is being managed by dialysis. She will be given Albumin today as mentioned above. Total critical time spent in the management of the is patient today morning in the ICU excluding all the procedures was 50 minutes. MTDD
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
--- NOTE | 2020-09-07 09:24 | IPN ---
DATE: 09/05/2020 SUBJECTIVE: The patient was seen and examined at the bed today morning during CVVHDF in the ICU. She remains on a low dose of Levophed infusion. The patient is anuric. There are no signs of renal improvement. She is tolerating the CVVHDF with the low dose of Levophed. The patient is otherwise awake and alert and able to communicate with me. Her hemoglobin has dropped today. A blood transfusion has been ordered, and she is also receiving IV albumin every 8 hours. OBJECTIVE: VITAL SIGNS: Temperature is 98.6 degrees Fahrenheit, blood pressure 110/54, pulse is 92, respiratory rate of 18, saturating 98% on room air. Intake and Output Ultrafiltration with CVVHDF when I saw her in the morning was 1,082 mL yesterday and 537 mL when I saw her in the morning. Weight is 107.2 kg. PHYSICAL EXAMINATION: GENERAL APPEARANCE: The patient is awake, alert, oriented x3, laying in the bed, able to communicate, getting CVVHDF done. HEAD AND NECK: Extraocular muscles intact. Pupils are equally round and reactive to light. Mucous membranes are moist. Neck is supple. She has a right IJ non tunneled hemodialysis catheter being used for CVVHDF. CARDIOVASCULAR: S1, S2, regular rate. EXTREMITIES: 2+ edema of the bilateral lower extremities. It is slightly better today as compared with yesterday. She has edema in the thighs as well. RESPIRATORY: Mildly decreased breath sounds at the bases. She has a pigtail catheter in the left side. ABDOMEN: Soft, obese, positive bowel sounds, abdominal wall edema which is slightly worse on the right side as compared with the left side. GENITOURINARY: She has an indwelling Teixeira catheter. MUSCULOSKELETAL: No clubbing, no cyanosis. Pulses are 2+. C&S: No focal deficits. The patient is oriented x3. She moves extremities, follows commands. LAB REVIEW: CBC showed a WBC 6.2, hemoglobin was 7.3, platelets were 77. BMP showed sodium 137, potassium 3.9, chloride 105, bicarbonate 27, BUN 6, creatinine 0.95 and this is because of CVVHDF. Calcium 7.8, phosphorous is 2.3. Total bilirubin 1.3, AST 29, ALT is 10. Alkaline phosphatase is 156, albumin is 3.1. IMAGING: A chest x-ray was done today morning and it showed continued subtle hazy opacification of the left mid to lower lung zones, suggesting small residue layering effusion and underlying atelectasis. Otherwise no acute process. CURRENT INPATIENT MEDICATIONS: The patient's medications were all reviewed by myself. She is getting albumin 25% 25 grams IV q. 8 hourly. And there is an order for one unit of PRBC transfusion as well. IV Cefepime has been stopped now. She is on a lower dose of Levophed. No other significant change in the medications today as compared with yesterday. ASSESSMENT AND PLAN: 1. Acute oliguric renal failure - The patient remains oliguric at this time. Her urine output since overnight is only 102 mL. She continues to be on CVVHDF. Multiple attempts to do regular hemodialysis at bedside caused significant drop in the blood pressure. Continue CVVHDF at this time. 2. Generalized anasarca - The patient is getting fluid removed according to MAP parameters. We have successful to at least maintain her whereas the blood pressure allows to remove some extra fluid. New CVVHDF orders with the fluid removal parameters were placed in the chart and discussed with the nursing staff. 3. Anemia secondary to renal failure and acute blood loss - The patient is going to get one unit of PRBC transfusion. 4. Hypotension all of the patient's cultures are negative now. IV antibiotics have been stopped. She is getting albumin 25% 25 grams IV q. 8 hourly which is helping improve the blood pressure and one unit of PRBC transfusion today would also help improve the blood pressure levels. 5. CAMPBELL cirrhosis with ascites as mentioned above, she did not respond to diuretics. She is only getting fluid removed with dialysis. The patient is otherwise awake and alert and she continues to be on daily Lactulose and Rifaximin. 6. Left sided pleural effusion - The patient has a pigtail catheter on the left side. The output from the tube is around 200 mL every day. We are trying our best to maximize the fluid removal with dialysis. 7. Thrombocytopenia it is secondary to liver cirrhosis. No need of platelet transfusion at this time. MTDD
--- NOTE | 2020-09-07 09:28 | IPN ---
DATE: 09/06/2020 SUBJECTIVE: The patient was seen and examined at the bed today morning in the ICU. She continues to be on CVVHDF. IV albumin infusion finished yesterday. Her hemoglobin level is still low. She is getting one unit of PRBC transfusion. She is tolerating the ultrafiltration during CRRT. She is no longer requiring Levophed. She remains oliguric. There are no signs of renal improvement at this time. OBJECTIVE: VITAL SIGNS: Temperature today is 98.4 degrees Fahrenheit, blood pressure 97/54, pulse is 82, respiratory rate of 20, saturating 98% on nasal cannula at 3 liters. Intake and Output Ultrafiltration with CVVHDF was 3.7 liters yesterday, 891 mL so far today. Chest tube was drainage of 180 mL. Urine output is only 108 mL so far. Weight on the bed scale is 107.3 kg which is stable since yesterday. PHYSICAL EXAMINATION: GENERAL APPEARANCE: The patient is awake, alert, oriented x3, laying in bed getting CRRT. HEAD AND NECK: Extraocular muscles intact. Pupils are equally round and reactive to light. Mucous membranes are moist. Neck is supple. Right IJ non tunneled hemodialysis catheter was noted. CARDIOVASCULAR: S1, S2, regular rate. EXTREMITIES: 2+ edema of the bilateral lower extremities. RESPIRATORY: Chest is clear to auscultation in upper lung zones. There are decreased breath sounds at the bases. She has a chest tube in the left side. ABDOMEN: Soft, positive bowel sounds. Abdominal wall edema was noted, worse on the right side as compared with left side. MUSCULOSKELETAL: No clubbing, no cyanosis. 2+ edema in the legs, all the way up to the thighs. C&S: No focal deficits. The patient follows commands and moves all extremities and able to communicate well. LAB REVIEW: CBC showed a WBC of 5.3, hemoglobin, 7.5, platelets are 55. Urinalysis done today showed a + Blood with 3+ protein and leukocyte esterase with 22-30 WBCs. BMP done today showed sodium 134, potassium 4.2, chloride 103, bicarbonate 28, BUN 4, creatinine is 0.88, calcium 7.9, ionized calcium 4.5, phosphorous 2.6, magnesium is 2.3. IMAGING: A chest x-ray was done today morning which showed no significant change from yesterday. No significant residual effusion identified by portal exam. CURRENT INPATIENT MEDICATIONS: The patient's medications were all reviewed by myself. No significant change in the medications today as compared with yesterday. I am going to change the Midodrine dose to three times a day. ASSESSMENT: 1. Acute oliguric renal failure - The patient remains dependent on CRRT. Fluid removal parameters were changed today. She is tolerating the procedure well, not requiring Levophed at this time. 2. Anasarca - The patients fluid status is being managed with CVVHD. Now she will get 100 mL of fluid removed per hour for a mean arterial pressure more than 70. 3. Left sided pleural effusion - The patient is status post pigtail catheter. Fluid is being optimized with dialysis. Pigtail management is as per [facility]. 4. Hypotension she is no longer requiring Levophed. She also received albumin yesterday and she is getting blood today. Midodrine dose has been increased to 5 mg three times a day. 5. Cirrhosis with ascites - continue Lactulose and Rifaximin. MTDD
[2020-09-07] MEDS ORDERED: SODIUM PHOSPHATE INJ 30 MMOL in D5W 250 ML IV ONE (10:30)
[2020-09-07 11:29] LABS: CORTISOL AM 4.2 UG/DL (4.3-22.4)
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
[2020-09-07] MEDS ORDERED: SODIUM CHLORIDE 0.9% INJ 10 ML SYR IV PRN (13:00)
[2020-09-07 16:15] LABS: IONIZED CALCIUM 4.6 MG/DL (4.5-5.3)
[2020-09-07 16:21] LABS: HEMATOCRIT 28.7 % (36.0-47.0); MEAN CORPUSCULAR HEMOGLOBIN 29.9 pg (27.0-33.0); MEAN CORPUSCULAR HGB CONC 31.4 g/dl (32.0-36.5); MEAN CORPUSCULAR VOLUME 95.3 fl (80.0-96.0); RED BLOOD COUNT 3.01 10^6/uL (4.00-5.40); WHITE BLOOD COUNT 7.3 10^3/uL (4.0-10.0)
[2020-09-07 16:23] LABS: PLATELET COUNT, AUTOMATED 73 10^3/uL (150-450)
[2020-09-07 16:48] LABS: BLOOD UREA NITROGEN 4 MG/DL (7-18); CALCIUM LEVEL 8.1 MG/DL (8.8-10.2); CARBON DIOXIDE LEVEL 29 MEQ/L (21-32); CHLORIDE LEVEL 105 MEQ/L (98-107); CREATININE FOR GFR 0.89 MG/DL (0.55-1.30); GLOMERULAR FILTRATION RATE > 60.0 (>45); GLUCOSE, FASTING 112 MG/DL (70-100); MAGNESIUM LEVEL 2.3 MG/DL (1.8-2.4); PHOSPHORUS LEVEL 2.6 MG/DL (2.5-4.9); POTASSIUM SERUM 4.3 MEQ/L (3.5-5.1); SODIUM LEVEL 137 MEQ/L (136-145)
[2020-09-07] MEDS: LIDOCAINE 5% (LIDODERM) PATCH TD SCH (20:24)
[2020-09-08] VITALS (25 sets, daily range): BP systolic 84–124; BP diastolic 45–64
[2020-09-08] MEDS: NORCO, ANEXSIA 5/325MG TABLET (HYDROcodone/ACETAMINOPHEN) PO PRN ×5 (00:33→20:59)
[2020-09-08] MEDS: LEVALBUTEROL 1.25 MG/0.5 ML CONCENTRATE NEB NEB SCH ×4 (02:00→19:33)
[2020-09-08 04:02] LABS: HEMATOCRIT 28.7 % (36.0-47.0); HEMOGLOBIN 8.7 g/dl (12.0-15.5); MEAN CORPUSCULAR HEMOGLOBIN 29.2 pg (27.0-33.0); MEAN CORPUSCULAR HGB CONC 30.3 g/dl (32.0-36.5); MEAN CORPUSCULAR VOLUME 96.3 fl (80.0-96.0); RED BLOOD COUNT 2.98 10^6/uL (4.00-5.40); WHITE BLOOD COUNT 5.9 10^3/uL (4.0-10.0)
[2020-09-08 04:04] LABS: IONIZED CALCIUM 4.7 MG/DL (4.5-5.3)
[2020-09-08 04:08] LABS: PLATELET COUNT, AUTOMATED 69 10^3/uL (150-450)
[2020-09-08 04:30] LABS: CALCIUM LEVEL 8.1 MG/DL (8.8-10.2); CREATININE FOR GFR 1.03 MG/DL (0.55-1.30); GLOMERULAR FILTRATION RATE 57.6 (>45); MAGNESIUM LEVEL 2.3 MG/DL (1.8-2.4); PHOSPHORUS LEVEL 2.2 MG/DL (2.5-4.9); POTASSIUM SERUM 4.4 MEQ/L (3.5-5.1)
[2020-09-08] MEDS: BISACODYL 10 MG SUPP PR SCH ×2 (06:00→16:48)
[2020-09-08] MEDS ORDERED: SODIUM PHOSPHATE INJ 30 MMOL in NS 250 ML IV ONE (06:00)
[2020-09-08] MEDS: LEVOTHYROXINE 25MCG TABLET (0.025MG) PO SCH (06:19)
[2020-09-08] MEDS: SODIUM CHLORIDE 0.9% INJ 10 ML SYR IV SCH ×2 (06:20→17:18)
[2020-09-08 06:37] LABS: INR 1.39; PROTHROMBIN TIME 17.4 SECONDS (12.5-14.3)
[2020-09-08 06:40] LABS: PARTIAL THROMBOPLASTIN TIME 113.3 SECONDS (24.2-38.5)
--- NOTE | 2020-09-08 07:00 | IPN ---
DATE: 09/07/2020 SUBJECTIVE: The patient is seen and examined at the bedside in the Intensive Care Unit with the ICU nurse present. CRRT flow sheets are reviewed. Over the 24 hours the machine has been set to take off at max 150 mL per hour, and she is cumulative negative about 3 liters with the CRRT; in the past 24 hours negative 870 mL. Overall her blood pressures remain stable with systolic mostly in the 100 to 110s. Her chest tube output is averaging 230 mL. Continues on Midodrine three times a day and is off of albumin. PHYSICAL EXAMINATION: VITAL SIGNS: Temperature 98.7, pulse 83, respiratory rate 16, blood pressure 114/53, saturating 97% on 2 liters nasal cannula. Review of I.s and O.s from CRRT flow sheet shows net negative 870 in the past 24 hours. Weight on the bed scale today is 108 kg. GENERAL APPEARANCE: She is seen lying in bed, head of the bed elevated, obese female in no distress. HEENT: The extraocular muscles are intact. Nasal cannula is in place. She has a tunneled hemodialysis catheter present in the right IJ. CARDIAC: S1, S2, regular rate. EXTREMITIES: There is 2+ pitting edema diffusely in the legs, thighs, hips and sacral area and in the flanks. CHEST: Clear to auscultation in the upper lung zones. There are decreased breath sounds at the bases and a chest tube in the left. ABDOMEN: Soft and obese. There is abdominal wall independent edema noted. There is an indwelling Teixeira catheter with minimal urine output. EXTREMITIES: Appreciable 2+ pitting edema diffusely. NEUROLOGICAL: She is oriented x3, interactive and conversational and moves all extremities on command. LABORATORY STUDIES: White count 5.8, hemoglobin 8.6, platelets 67. Sodium 136, potassium 4.2, bicarbonate 28. IMAGING: Chest x-ray September 07 - no residual pleural effusion. Pigtail catheter present in left lower hemithorax. INPATIENT MEDICATIONS: She received calcium gluconate supplementation. Levophed remains on hold. She also received sodium phosphate supplementation. She continues on Midodrine 5 mg three times daily. Remainder of medications are unchanged from prior. PROBLEMS: 1. Acute oliguric renal failure with ongoing CRRT dependence - The patient has been off of pressor support, but she is still significantly volume overloaded and the maximum hourly fluid removal with CRRT that she has tolerated thus far is 150 mL an hour which is not sufficient to transition her to intermittent hemodialysis. I have written new orders today and we will try to remove up to 200 mL an hour of fluid with CRRT as tolerated by her hemodynamics. 2. Hypotension overall her mean arterial pressures are improving. She continues on Midodrine 5 mg three times a day. She is not yet stable enough to transition to intermittent hemodialysis. We are increasing the amount of fluid that is removed with CRRT. 3. Fluid overload - Echo from last week is reviewed. The patient has significant anasarca and peripheral edema. Right now we are removing 150 an hour via CRRT and I am increasing that to 200 an hour as tolerated by her hemodynamics. She is off of albumin infusions. We will increase the ultrafiltration and fluid removal as tolerated by her mean arterial pressure. 4. Left sided pleural effusion with a pigtail catheter in place draining she continues to have a little bit more than 200 mL draining daily. She is volume overloaded. We will continue to try and remove as much fluid as tolerated by her hemodynamics while she is on CRRT. 5. Anemia due to acute blood loss - received multiple unit PRBC. Iron stores pending. Will start PATIENCE when she is on intermittent HD. MTDD
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
[2020-09-08] MEDS: HumaLOG INSULIN (NovoLOG) PER UNIT SC SCH ×4 (08:39→20:12)
[2020-09-08] MEDS: PANTOPRAZOLE 40MG VIAL (C9113 PER 1) IV SCH (08:40)
[2020-09-08] MEDS: LACTULOSE 20 GM/30 ML SYRUP UD PO SCH (08:40)
[2020-09-08] MEDS: GABAPENTIN 300 MG CAP PO SCH ×3 (08:40→20:10)
[2020-09-08] MEDS: MIDODRINE 5 MG TAB PO SCH ×3 (08:40→15:50)
[2020-09-08] MEDS: **NOTE PATIENT COMMENT** MISC XX SCH (09:00)
--- NOTE | 2020-09-08 09:45 | REP ---
INDICATION: pleural effusion. COMPARISON: Comparison study 07 September 2020.. TECHNIQUE: Upright AP view. FINDINGS: A large caliber right IJ central venous line and a smaller caliber right PICC line both terminate in the expected location of the superior vena cava as before. There is a pigtail catheter projecting at the left lung base medially unchanged. There is no evidence of pneumothorax or visible hydrothorax. No new infiltrate is seen. Some linear platelike atelectasis is suspected in the left base behind the heart. Pulmonary vasculature is slightly cephalized. IMPRESSION: Suspect platelike atelectasis left base. Pigtail catheter left base. No new infiltrate. <Electronically signed by Fox Cooper > 09/08/20 [id number]
[2020-09-08] MEDS ORDERED: SODIUM CHLORIDE 0.9% INJ 10 ML SYR IV PRN (11:45)
--- NOTE | 2020-09-08 14:37 | IPN ---
DATE: 09/07/2020 SUBJECTIVE: Ms. Ngo continues on ultrafiltration. She still again put out a little bit too much through the catheter. She is in bright spirits and awake and alert. Her vital signs show a maximum temperature (T-max) of 99.2 with a heart rate that ranges between 80 and 91 in sinus rhythm. Respiratory rate of 16-18 without the use of accessory muscles who is 98-92% saturated on 2 liters nasal cannula, and has a blood pressures of 139/57 . She remains off Levophed. Her intake and output the past 24 hours has been recorded as 969 in and 1843 out for a negativity of 874 mL. She has put out 236 mL from the chest catheter. She put out 168 mL in urine on the ultrafiltration. Her weight today is 108 kg compared to 107.3 kg yesterday. PHYSICAL EXAMINATION: She has some scattered rales and rhonchi in the left lower hemithorax most of which clear with coughing. There is no longer bronchophony or E:A egophony. Percussion notes are full through the diaphragm as far as I can tell through her morbid obesity. Cardiac exam shows the same grade 3 systolic murmur at the right and left upper sternal borders and along the left sternal border. I cannot feel a PMI. S1, S2 are normal. Abdomen is soft, nontender. Bowel sounds are positive. I cannot appreciate hepatomegaly through her morbid obesity. There is no CVA tenderness. Extremities show much improvement in her pretibial edema now down to trace to 1+. Her calves are still edematous, however. Calf findings may be artifactual secondary to the compression stockings. There is no differential swelling of the upper extremities. Skin is warm and dry and perfused without cyanosis or mottling including that of nailbeds and knees. Neck is supple. There is no jugular venous distention, no subcutaneous emphysema. Trachea is midline. Mouth shows her mucous membranes to be pink and moist. Lips, gums, tongue show no thrush. Eyes show her pupils to be equal and reactive. Extraocular movements are intact. Sclerae are nonicteric. Neuro shows CN II-XII intact, normal gross motor, gross sensation intact. Gait is not tested. Psychiatric shows her to be awake and alert and oriented times three with appropriate mood and affect and conversational. Her white count today is 7.3 with a hemoglobin and hematocrit of 9.0 and 28.7. Her hemoglobin and hematocrit continue to hold after a unit of transfusion. Platelet count is 73 and stable. There is no differential on her. Chemistries today show normal electrolytes with BUN and creatinine of 4 and 0.89 on ultrafiltration. Glucose is 112 with a calcium of 8.1. Phosphorus is 3.6. Her PTT is 49 seconds. Her chest x-ray shows her lungs fully expanded to the chest wall. The left lower lobe atelectasis has continued to improve. IMPRESSION: 1. Left hemithorax, resolved with a prior chest tube, now out. 2. Recurrent pleural effusion draining with a chest tube catheter. 3. Multiple rib fractures. 4. Hepatorenal syndrome. 5. Renal insufficiency secondary to acute tubular necrosis (ATN) secondary to initial dehydration and large osmotic hemothorax. 6. Portal hypertension. 7. Esophageal varices. 8. Diabetes. PLAN AND DISCUSSION: I will leave her catheter in another day. There is very little downside to letting it continue to drain so long as she is on ultrafiltration and still edematous. Her edema does seem to be improving, however. MTDD
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
--- NOTE | 2020-09-08 14:43 | IPN ---
DATE: 09/08/2020 Christina is seen and examined this morning at the bedside in the intensive care unit. She has been tolerating increased fluid removal with continuous venovenous hemodialysis (CVVHD). We have been keeping her net negative 200 mL per hour the past 24 hours. Dialysis flow sheet is reviewed. Her blood pressure has remained stable with the increased fluid removal, and her daily weighs are downtrending. She remains in good spirits and is oligoanuric and offers no complaints except for feeling cold. Temperature 97.2, pulse 83, respiratory rate 16, blood pressure 107/52, saturating 98% on 2 liters nasal cannula. Intake yesterday was 1335. Urine output was less than 100 mL. Continuous renal replacement therapy (CRRT) removed 3 liters. Weight in the bed scale today is 105.9 kg, which is decreased from yesterday. GENERAL: Patient is seen in the intensive care unit (ICU) with the head of the bed elevated, receiving continuous hemodialysis, awake, alert, oriented in no apparent distress. Extraocular muscles are intact. She has nasal cannula in place. There is a hemodialysis catheter present in the right internal jugular (IJ). Jugular veins are difficult to assess. Breath sounds are symmetric. Anterior auscultation done only today. She has a pigtail catheter present in the left with decreasing output. CARDIAC: S1, S2, regular rate and rhythm. Edema 2+ that comes up to the thighs, the flanks, and the abdominal wall. ABDOMEN: Soft, obese and nontender. There is pitting edema in the abdominal wall. EXTREMITIES: Show pitting edema in the lower extremities but not in the upper extremities. There is a Teixeira catheter with almost no urine output. NEUROLOGIC: Oriented times three. Moves all four extremities on command. At baseline mentation. LABORATORY DATA: White count 5.9, hemoglobin 8.7, platelets 69. Sodium 138, potassium 4.4, magnesium 2.3, phosphorus 2.2. INPATIENT MEDICATIONS: Reviewed by myself. She received calcium gluconate and sodium phosphate supplementation. The remainder of medications is unchanged from prior. PROBLEMS: 1. Acute oligoanuric renal failure with ongoing CRRT dependence. Urine output is less than 100 mL at day, and I discussed with the patient that she has ongoing dialysis needs. We have increased the blood flow and the fluid removal rate both on CRRT, and blood pressure-warren, she has tolerated both, though not yet to the extent that I think she could be successfully transitioned to intermittent hemodialysis. I have written new orders for CRRT today with increased fluid removal and increased blood flow rate, which will be variable, depending on her mean arterial pressures, and she will be reassessed daily to see if she is stable to transition to intermittent hemodialysis. 2. Hypotension. She continues on midodrine 5 mg three times a day. She is tolerating more strenuous CRRT prescription. I am not yet confident that she will be able to tolerate intermittent hemodialysis. CRRT prescription is renewed for 24 hours, and she will be reassessed daily. We were successfully able to remove more fluid now without bottoming out her blood pressures. 3. Fluid overload. Patient is grossly volume overloaded with anasarca and peripheral edema. She is now tolerating 200 mL removal with CRRT and is net negative about 3 liters in the past 24 hours. We will continue with ultrafiltration and fluid removal as tolerated by mean arterial pressure (MAP). 3. Left-sided pleural effusion with pigtail catheter. Her output is decreasing. We are working on her volume status with the CRRT prescription, and Dr. Hood is hopeful that he may be able to remove the catheter in a couple of days. 4. Anemia. Related to traumatic hemothorax and acute blood loss. Received 5 units packed red blood cells (PRBC). She was also fecal occult blood test (FOBT) positive. I will start her on Aranesp once she is transitioned to intermittent hemodialysis. MTDD
[2020-09-08 16:10] LABS: IONIZED CALCIUM 4.5 MG/DL (4.5-5.3)
[2020-09-08 16:16] LABS: HEMATOCRIT 28.8 % (36.0-47.0); HEMOGLOBIN 8.8 g/dl (12.0-15.5); MEAN CORPUSCULAR HEMOGLOBIN 29.3 pg (27.0-33.0); MEAN CORPUSCULAR HGB CONC 30.6 g/dl (32.0-36.5); WHITE BLOOD COUNT 6.6 10^3/uL (4.0-10.0)
[2020-09-08 16:23] LABS: PLATELET COUNT, AUTOMATED 88 10^3/uL (150-450)
[2020-09-08 16:58] LABS: ALBUMIN 3.1 GM/DL (3.2-5.2); CALCIUM LEVEL 8.2 MG/DL (8.8-10.2); CREATININE FOR GFR 1.08 MG/DL (0.55-1.30); GLOMERULAR FILTRATION RATE 54.5 (>45); MAGNESIUM LEVEL 2.4 MG/DL (1.8-2.4); PERCENT SATURATION 14.9 % (13.2-45.0); PHOSPHORUS LEVEL 3.1 MG/DL (2.5-4.9); POTASSIUM SERUM 4.5 MEQ/L (3.5-5.1)
[2020-09-08] MEDS ORDERED: CALCIUM GLUCONATE 1,000 MG in NS 100 ML IV ONE (17:00)
[2020-09-08] MEDS: LIDOCAINE 5% (LIDODERM) PATCH TD SCH (20:10)
[2020-09-09] VITALS (24 sets, daily range): BP systolic 93–121; BP diastolic 44–70
[2020-09-09] MEDS: LEVALBUTEROL 1.25 MG/0.5 ML CONCENTRATE NEB NEB SCH ×4 (01:55→19:30)
[2020-09-09 04:17] LABS: IONIZED CALCIUM 4.6 MG/DL (4.5-5.3)
[2020-09-09 04:24] LABS: HEMATOCRIT 26.9 % (36.0-47.0); HEMOGLOBIN 8.3 g/dl (12.0-15.5); MEAN CORPUSCULAR HEMOGLOBIN 29.5 pg (27.0-33.0); MEAN CORPUSCULAR HGB CONC 30.9 g/dl (32.0-36.5); MEAN CORPUSCULAR VOLUME 95.7 fl (80.0-96.0); PLATELET COUNT, AUTOMATED 83 10^3/uL (150-450); RED BLOOD COUNT 2.81 10^6/uL (4.00-5.40); WHITE BLOOD COUNT 5.7 10^3/uL (4.0-10.0)
[2020-09-09 05:03] LABS: CREATININE FOR GFR 1.1 MG/DL (0.55-1.30); GLOMERULAR FILTRATION RATE 53.4 (>45); MAGNESIUM LEVEL 2.4 MG/DL (1.8-2.4); PHOSPHORUS LEVEL 2.2 MG/DL (2.5-4.9); POTASSIUM SERUM 4.3 MEQ/L (3.5-5.1)
[2020-09-09] MEDS: LEVOTHYROXINE 25MCG TABLET (0.025MG) PO SCH (05:52)
[2020-09-09] MEDS: SODIUM CHLORIDE 0.9% INJ 10 ML SYR IV SCH ×2 (05:53→18:40)
[2020-09-09] MEDS: BISACODYL 10 MG SUPP PR SCH ×2 (05:53→18:00)
[2020-09-09] MEDS ORDERED: CALCIUM GLUCONATE 1,000 MG in NS 100 ML IV ONE (06:00)
[2020-09-09] MEDS ORDERED: SODIUM PHOSPHATE INJ 30 MMOL in NS 250 ML IV ONE (07:00)
--- NOTE | 2020-09-09 07:12 | IPNPDOC ---
Date Seen The patient was seen on 09/09/20. Progress Note Note redundant, a note for 09/09/20 exists and is signed. This note cancelled. VS, I&O, 24H, Fishbone Vital Signs/I&O Vital Signs Date Time Temp Pulse Resp B/P (MAP) Pulse Ox O2 Delivery O2 Flow Rate FiO2 09/09/20 06:00 85 12 96/53 (67) 97 Nasal Cannula 2.0 09/09/20 04:00 98.6 I&O- Last 24 Hours up to 6 AM 09/09/20 06:00 Intake Total 1332 ml Output Total 4254 ml Balance -2922 ml Laboratory Data 24H LABS Laboratory Tests 2 09/08/20 08:30: Bedside Glucose (Misc Panel) 103 09/08/20 11:57: Bedside Glucose (Misc Panel) 138H 09/08/20 15:54: Nucleated Red Blood Cells % (auto) 0.0, Anion Gap 3L, Glomerular Filtration Rate 54.5, Calcium Level 8.2L, Whole Blood Ionized Calcium 4.5, Phosphorus Level 3.1#, Magnesium Level 2.4, Iron Level 32L, Total Iron Binding Capacity 215L, Transferrin % Saturation 14.9, Ferritin 64, Albumin 3.1L 09/08/20 20:12: Bedside Glucose (Misc Panel) 123H 09/09/20 04:06: Nucleated Red Blood Cells % (auto) 0.0, Immature Platelet Fraction 6.1, Activated Partial Thromboplast Time 47.5H, Anion Gap 4L, Glomerular Filtration Rate 53.4, Calcium Level 8.0L, Whole Blood Ionized Calcium 4.6, Phosphorus Level 2.2#L, Magnesium Level 2.4 CBC/BMP Laboratory Tests 09/08/20 15:54 09/09/20 04:06 Microbiology Microbiology 09/02/20 Acid Fast Stain, Received Pending 09/02/20 Mycobacterial Culture, Received Pending 09/02/20 Fungal Smear, Received Pending 09/02/20 Fungal Culture, Received Pending 09/02/20 Gram Stain - Final, Complete 09/02/20 Anaerobic Culture - Final, Complete 09/02/20 Body Fluid Culture - Final, Complete 08/30/20 Gram Stain - Final, Complete 08/30/20 Sputum Culture - Final, Complete KELVIN KEMP MD Sep 09, 2020 07:12
--- NOTE | 2020-09-09 07:46 | REP ---
INDICATION: pleural effusion. COMPARISON: September 08, 2020.. TECHNIQUE: AP sitting single-view. FINDINGS: Monitoring electrodes overlie the chest. A pigtail catheter is again seen projecting at the left base medially. There is no evidence of pleural effusion or pneumothorax. Right-sided PICC line terminates in the region of the SVC subclavian vein junction. A right IJ line terminates in the expected location of the SVC. No new infiltrate is seen. IMPRESSION: Findings unchanged from the previous day's study. <Electronically signed by Fox Cooper > 09/09/20 [id number]
[2020-09-09] MEDS: MIDODRINE 5 MG TAB PO SCH ×3 (07:55→15:46)
[2020-09-09] MEDS: HumaLOG INSULIN (NovoLOG) PER UNIT SC SCH ×4 (07:55→20:21)
[2020-09-09] MEDS: GABAPENTIN 300 MG CAP PO SCH ×3 (08:11→20:21)
[2020-09-09] MEDS: PANTOPRAZOLE 40MG VIAL (C9113 PER 1) IV SCH (08:11)
[2020-09-09] MEDS: LACTULOSE 20 GM/30 ML SYRUP UD PO SCH (08:11)
[2020-09-09] MEDS: NORCO, ANEXSIA 5/325MG TABLET (HYDROcodone/ACETAMINOPHEN) PO PRN ×2 (08:38→16:17)
[2020-09-09] MEDS: **NOTE PATIENT COMMENT** MISC XX SCH (10:00)
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
[2020-09-09] MEDS ORDERED: IRON SUCROSE 100MG 5ML VIAL (J1756 PER 1MG) IV SCH (13:15)
[2020-09-09] MEDS ORDERED: DARBEPOETIN 100 MCG/0.5 ML *DIALYSIS* SYRINGE (J0882) IV SCH (13:15)
--- NOTE | 2020-09-09 15:07 | IPN ---
DATE: 09/09/2020 SUBJECTIVE: I saw Ms. Christina Ngo at the bedside this morning in the Intensive Care Unit. Her pigtail catheter was removed by thoracic surgery. Her CRRT was discontinued this morning. She is sitting out of bed to the chair. She is in a good mood. In the past 24 hours, she tolerated net negative 200 mL fluid removal hourly with CRRT with about 4500 cc removed all-in-all and her weights have down trended nicely and her edema is improving. PHYSICAL EXAMINATION: VITALS: Blood pressures remain stable with MAP averaging 65 to 75. Temperature 97.6, pulse 80, respiratory rate 16, blood pressure 107/52, saturating 98% on 1 liter nasal cannula. INTAKE yesterday was 1420. CRRT removed 4500, net negative 3 liters. Weight in the bed scale today 101.6 kg. GENERAL: Patient is seen awake, alert and oriented, sitting out of bed in the chair. HEENT: Extraocular muscles are intact. Tongue is moist. There is a right IJ dialysis catheter. Jugular veins are mildly elevated. CARDIAC: Heart sounds are regular, S1, S2. There is 2+ edema that comes up to the hip, thigh and the abdominal wall. The left-sided pigtail catheter has been removed. RESPIRATORY: There is bilateral air entry, which is somewhat diminished on the left. There is a nasal cannula in place. No tachypnea. No accessory muscle use. ABDOMEN: Soft, obese and nontender. There is abdominal wall edema and edema in the flanks. EXTREMITIES: She has peripheral edema that comes all the way up to the hip, thigh and sacral area. GENITOURINARY: Shows Teixeira catheter with almost no urine. NEUROLOGIC: She is oriented x3, interactive and conversational . PSYCHIATRIC: Calm and cooperative. LABORATORY DATA: White count 5.7, hemoglobin 8.3, platelets 83,000. Sodium 138, potassium 4.3, magnesium 2.4. IMAGING STUDIES: Chest x-ray today; no pleural effusion or pneumothorax. INPATIENT MEDICATIONS: Were reviewed by myself. She received calcium gluconate and sodium phosphate supplementation. She continues on Midodrine three times a day. The remainder of medications is unchanged from prior. PROBLEMS: 1. Oligoanuric acute renal failure: The patient remains dialysis dependent, urine output is less than 100 cc a day. Teixeira catheter to be removed. She tolerated increased fluid removal and increased blood flow rate on CVVHDF with stable hemodynamics. Hence, I am going to try again to transition her to intermittent hemodialysis. Will plan to do a hemodialysis treatment on 09/10/2020 with albumin for blood pressure support. 2. Acute blood loss anemia: Labs also show inadequate iron levels. I am going to give her Venofer with hemodialysis and we will also start her on Aranesp with her hemodialysis treatments. 3. Fluid overload and anasarca: Volume status is improving, she had 4.5 liters removed in the past 24 hours with CRRT and we will not be able to remove that much with intermittent hemodialysis, however, we will try to remove as much fluid as tolerated by her hemodynamics. 4. Hypotension: She continues on Midodrine 5 mg three times a day. She tolerated a more strenuous CRRT prescription. We are going to try and transition her again to intermittent hemodialysis. I will give albumin with dialysis for blood pressure support so that we can remove fluid without hypotension of hemodialysis. MTDD
[2020-09-09] MEDS: SODIUM CHLORIDE 0.9% INJ 10 ML SYR IV PRN (18:41)
[2020-09-09] MEDS: LIDOCAINE 5% (LIDODERM) PATCH TD SCH (20:22)
[2020-09-10] VITALS (31 sets, daily range): BP systolic 74–155; BP diastolic 37–81
[2020-09-10] MEDS: LEVALBUTEROL 1.25 MG/0.5 ML CONCENTRATE NEB NEB SCH ×4 (01:19→19:40)
[2020-09-10] MEDS: LEVOTHYROXINE 25MCG TABLET (0.025MG) PO SCH (05:26)
[2020-09-10] MEDS: SODIUM CHLORIDE 0.9% INJ 10 ML SYR IV SCH ×2 (05:27→17:40)
[2020-09-10] MEDS: BISACODYL 10 MG SUPP PR SCH ×2 (05:27→17:41)
[2020-09-10 06:08] LABS: HEMOGLOBIN 8.3 g/dl (12.0-15.5); MEAN CORPUSCULAR HGB CONC 30.7 g/dl (32.0-36.5); MEAN CORPUSCULAR VOLUME 94.4 fl (80.0-96.0); RED BLOOD COUNT 2.86 10^6/uL (4.00-5.40); WHITE BLOOD COUNT 5.1 10^3/uL (4.0-10.0)
[2020-09-10 06:12] LABS: PLATELET COUNT, AUTOMATED 97 10^3/uL (150-450)
[2020-09-10 06:27] LABS: ALBUMIN 2.7 GM/DL (3.2-5.2); CALCIUM LEVEL 8.7 MG/DL (8.8-10.2); CREATININE FOR GFR 1.44 MG/DL (0.55-1.30); GLOMERULAR FILTRATION RATE 39.1 (>45); PHOSPHORUS LEVEL 3.5 MG/DL (2.5-4.9); POTASSIUM SERUM 4.5 MEQ/L (3.5-5.1)
--- NOTE | 2020-09-10 07:05 | REP ---
INDICATION: pleural effusion COMPARISON: 09/09/2020-08/30/2020 TECHNIQUE: Portable AP view of the chest FINDINGS: Right IJ line stable with tip in the SVC. Right PICC line stable with tip in the brachiocephalic/SVC confluence. Pigtail catheter at the left base has been removed. The mediastinum and cardiac silhouette are within normal limits and stable. Subtle asymmetric fail of opacity overlying the left hemithorax may represent small layering pleural fluid as well as trace medial basilar atelectasis. Right hemithorax appears clear. No obvious pneumothorax. IMPRESSION: As above. Cannot exclude subtle layering left effusion or left basilar atelectasis. <Electronically signed by Michael Vincent > 09/10/20 0738
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
[2020-09-10] MEDS: HumaLOG INSULIN (NovoLOG) PER UNIT SC SCH ×4 (07:30→21:00)
--- NOTE | 2020-09-10 07:54 | CR.PDOC ---
General Date of Consultation: Sep 10, [address] Vazquez REASON FOR CONSULTATION/CHIEF COMPLAINT: PermCath placement HISTORY OF PRESENT ILLNESS: The patient is a 65-year-old female admitted with shortness of breath 08/21/20, followed by nephrology for AK I due to ATN related to hypotension and contrast nephropathy, currently on CVVHD with plan to transition to intermittent HD. Vascular surgery consulted for PermCath placement. ALLERGIES: Please see below. HOME MEDICATIONS: Please see below. PAST MEDICAL HISTORY: Diabetes, HTN, hypothyroidism. Psoriatic arthritis. 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 PAST SURGICAL HISTORY: Tonsillectomy 1990s Bilateral cataract surgery last year Cholecystectomy 1985 FAMILY HISTORY: Brother history of CAD and diabetes Brother history of colon cancer. Mother history of arthritis and A. fib and diabetes and COPD SOCIAL HISTORY: Nonsmoker REVIEW OF SYSTEMS: PHYSICAL EXAMINATION: VITAL SIGNS: Please see below. GENERAL APPEARANCE: In bed, NAD HEENT: MMM CARDIOVASCULAR: RRR EXTREMITIES: edema noted LEs NEUROLOGICAL: A/O PSYCHIATRIC: pleasant ASSESSMENT/PLAN: AIDA, dialysis as per nephrology. Vascular surgery consulted for PermCath placement. Tentative plan is for placement of Permcath Monday09/11/20. The procedure, risks, benefits and alternatives are reviewed with the patient. Informed consent is obtained and placed with the chart. The patient will be nothing by mouth in the morning for the procedure. Vital Signs/I&O Vital Signs Date Time Temp Pulse Resp B/P (MAP) Pulse Ox O2 Delivery O2 Flow Rate FiO2 09/10/20 07:00 82 129/58 (81) 93 Room Air 09/10/20 04:00 1.0 09/10/20 04:00 98.3 18 I&O- Last 24 Hours up to 6 AM 09/10/20 05:59 Intake Total 750 ml Output Total 167 ml Balance 583 ml Laboratory Data Labs 24H Laboratory Tests 2 09/09/20 11:37: Bedside Glucose (Misc Panel) 177H 09/09/20 17:24: Bedside Glucose (Misc Panel) 175H 09/09/20 20:16: Bedside Glucose (Misc Panel) 122H 09/10/20 05:30: Nucleated Red Blood Cells % (auto) 0.0, Immature Platelet Fraction 5.2, Anion Gap 5L, Glomerular Filtration Rate 39.1L, Calcium Level 8.7L, Phosphorus Level 3.5#, Albumin 2.7L CBC/BMP Laboratory Tests 09/10/20 05:30 Microbiology Microbiology 09/02/20 Acid Fast Stain, Received Pending 09/02/20 Mycobacterial Culture, Received Pending 09/02/20 Fungal Smear, Received Pending 09/02/20 Fungal Culture, Received Pending 09/02/20 Gram Stain - Final, Complete 09/02/20 Anaerobic Culture - Final, Complete 09/02/20 Body Fluid Culture - Final, Complete Allergies Coded Allergies: No Known Drug Allergies (Verified Allergy, Unknown, 02/06/19) Home Medications Scheduled Allopurinol (Allopurinol) 100 Mg Tab, 100 MG PO QHS, (Reported) Amlodipine Besylate (Amlodipine Besylate) 5 Mg Tablet, 5 MG PO QHS, (Reported) Apremilast (Otezla) 30 Mg Tablet, 30 MG PO BID, (Reported) Ascorbic Acid (Vitamin C) 500 Mg Tab, 1,000 MG PO DAILY, (Reported) Gabapentin (Gabapentin) 300 Mg Capsule, 300 MG PO BID, (Reported) Insulin Human Lispro (Novolog) 100 U/Ml Inj, 1 DOSE SC ACHS, (Reported) PER SLIDING SCALE Lactulose (Lactulose) 10 Gm/15 Ml Solution, 30 ML PO TID for 6 Days, (Reported) STARTED 08/17/2020 Levothyroxine Sodium (Levothyroxine Sodium) 25 Mcg Tablet, 25 MCG PO DAILY, (Reported) Lisinopril (Lisinopril) 10 Mg Tablet, 10 MG PO DAILY, (Reported) Lovastatin (Lovastatin) 20 Mg Tab, 20 MG PO QHS, (Reported) Omeprazole (Omeprazole) 40 Mg Cap, 40 MG PO QHS, (Reported) Propranolol HCl (Propranolol HCl ER) 60 Mg Cap, 60 MG PO QHS, (Reported) Sulfasalazine (Sulfasalazine) 500 Mg Tablet, 1,000 MG PO BID, (Reported) Scheduled PRN Celecoxib (Celebrex) 100 Mg Capsule, 100 MG PO BID PRN for PAIN, (Reported) Ipratropium/Albuterol Sulfate (Combivent Respimat 20-100 Mcg) 4 Gm Mist.inhal, 1 PUFF INH QID PRN for SHORTNESS OF BREATH, (Reported) Tizanidine HCl (Tizanidine HCl) 2 Mg Tablet, 2 MG PO TID PRN for MUSCLE SPASMS, (Reported) Tramadol HCl/Acetaminophen (Tramadol-Acetaminophn 37.5-325) 1 Each Tablet, 1 TAB PO Q8H PRN for PAIN, (Reported) Brittnee Katz Sep 10, 2020 07:54
[2020-09-10] MEDS: GABAPENTIN 300 MG CAP PO SCH ×3 (09:04→20:09)
[2020-09-10] MEDS: LACTULOSE 20 GM/30 ML SYRUP UD PO SCH ×3 (09:04→20:09)
[2020-09-10] MEDS: PANTOPRAZOLE 40MG VIAL (C9113 PER 1) IV SCH (09:04)
[2020-09-10] MEDS: MIDODRINE 5 MG TAB PO SCH ×3 (09:05→17:40)
[2020-09-10] MEDS: **NOTE PATIENT COMMENT** MISC XX SCH (09:05)
[2020-09-10] MEDS ORDERED: NOREPINEPHRINE 4 MG/4 ML AMP As Ordered ONE (14:14)
[2020-09-10] MEDS ORDERED: MIDODRINE 5 MG TAB PO ONE (14:15)
[2020-09-10] MEDS: NOREPINEPHRINE BITARTRATE 8 MG in D5W 492 ML IV SCH (14:45)
[2020-09-10] MEDS ORDERED: ACETAMINOPHEN 650 MG SUPP PR PRN (20:00)
[2020-09-10] MEDS: LIDOCAINE 5% (LIDODERM) PATCH TD SCH (20:46)
[2020-09-10] MEDS ORDERED: LACTULOSE 20 GM/30 ML SYRUP UD PR ONE (21:00)
[2020-09-10] MEDS ORDERED: LACTULOSE 20 GM/30 ML SYRUP UD PO SCH (21:00)
[2020-09-11] VITALS (25 sets, daily range): BP systolic 98–138; BP diastolic 48–98; O2SAT 96
[2020-09-11] MEDS: LEVALBUTEROL 1.25 MG/0.5 ML CONCENTRATE NEB NEB SCH ×4 (01:20→19:42)
[2020-09-11 01:26] LABS: ABG BASE EXCESS 2.1 (-2.0-2.0); ABG HCO3 27.2 MEQ/L (22.0-26.0); ABG O2 SATURATION 98.7 % (95.0-99.0); ABG PARTIAL PRESSURE CO2 44.7 mmHg (35.0-45.0); ABG PARTIAL PRESSURE O2 127.1 mmHg (75.0-100.0); ABG STANDARD HCO3 26.4 MEQ/L (22.0-26.0); ABG TOTAL CO2 28.6 MEQ/L (23.0-31.0); ABG pH (ARTERIAL) 7.402 UNITS (7.350-7.450)
[2020-09-11 01:40] LABS: HEMATOCRIT 23.8 % (36.0-47.0); HEMOGLOBIN 7.6 g/dl (12.0-15.5); MEAN CORPUSCULAR HEMOGLOBIN 29.8 pg (27.0-33.0); MEAN CORPUSCULAR HGB CONC 31.9 g/dl (32.0-36.5); MEAN CORPUSCULAR VOLUME 93.3 fl (80.0-96.0); RED BLOOD COUNT 2.55 10^6/uL (4.00-5.40); WHITE BLOOD COUNT 6.8 10^3/uL (4.0-10.0)
[2020-09-11 01:41] LABS: PLATELET COUNT, AUTOMATED 70 10^3/uL (150-450)
[2020-09-11 02:32] LABS: ALBUMIN 2.7 GM/DL (3.2-5.2); CALCIUM LEVEL 8.8 MG/DL (8.8-10.2); CREATININE FOR GFR 1.3 MG/DL (0.55-1.30); PHOSPHORUS LEVEL 3.5 MG/DL (2.5-4.9); POTASSIUM SERUM 3.8 MEQ/L (3.5-5.1)
--- NOTE | 2020-09-11 03:26 | REPVR ---
PROCEDURE INFORMATION: Exam: CT Head Without Contrast Exam date and time: 09/11/2020 2:46 AM Age: 65 years old Clinical indication: Altered mental status/memory loss; Confusion or disorientation; Additional info: Worsening AMS TECHNIQUE: Imaging protocol: Computed tomography of the head without contrast. Radiation optimization: All CT scans at this facility use at least one of these dose optimization techniques: automated exposure control; mA and/or kV adjustment per patient size (includes targeted exams where dose is matched to clinical indication); or iterative reconstruction. COMPARISON: CT Head without contrast 08/30/2020 2:24 AM FINDINGS: Brain: Generalized parenchymal atrophy and evidence of microvascular ischemic disease involving periventricular and subcortical white matter bilaterally. Cerebral ventricles: No ventriculomegaly. Bones/joints: Unremarkable. No acute fracture. Paranasal sinuses: Visualized sinuses are unremarkable. No fluid levels. Mastoid air cells: Visualized mastoid air cells are well aerated. Soft tissues: Unremarkable. IMPRESSION: No acute intracranial pathology. Electronically signed by: Dalton Palafox On 09/11/2020 03:25:34 AM
[2020-09-11] MEDS: LEVOTHYROXINE 25MCG TABLET (0.025MG) PO SCH (05:59)
[2020-09-11] MEDS: BISACODYL 10 MG SUPP PR SCH ×2 (06:00→17:27)
[2020-09-11] MEDS: SODIUM CHLORIDE 0.9% INJ 10 ML SYR IV SCH ×2 (06:00→17:27)
[2020-09-11] MEDS: NORCO, ANEXSIA 5/325MG TABLET (HYDROcodone/ACETAMINOPHEN) PO PRN ×2 (06:01→20:09)
[2020-09-11] MEDS ORDERED: LIDOCAINE 1% MDV 20ML VIAL As Ordered ONE (07:31)
[2020-09-11] MEDS ORDERED: LIDOCAINE W/EPINEPHRINE 1% 20ML VIAL As Ordered ONE ×2 (07:33→08:34)
[2020-09-11] MEDS ORDERED: fentaNYL 100 MCG/2 ML INJECTION (J3010) As Ordered ONE ×2 (07:45→08:31)
[2020-09-11] MEDS ORDERED: MIDAZOLAM INJ 2MG/2ML VIAL (J2250 PER 1MG) As Ordered ONE (07:45)
--- NOTE | 2020-09-11 07:51 | IPN ---
DATE: 09/10/2020 SUBJECTIVE: Christina was seen and examined this morning at the bedside in the Intensive Care Unit and also later in the afternoon while receiving hemodialysis at the bedside again in the Intensive Care Unit. She is confused this morning and her ammonia level came back elevated at 110 and her lactulose dose was increased. Blood pressures have been appropriate without any repeat hypotension. She remains in oliguric renal failure. CRRT was discontinued yesterday and we are attempting a trial of hemodialysis today. She is going to have a new PermCath placed on Monday and have her temporary dialysis catheter removed at that time. REVIEW OF SYSTEMS: Patient is confused due to high ammonia level, but tells me that she walked around a little bit in the room and denies dyspnea. PHYSICAL EXAMINATION: Temperature 98.9, pulse 90, respiratory rate 16, blood pressure 113/61, saturating 97% on 2 liters nasal cannula. Intake yesterday was 750. She has not had any significant urine output. Weight on the bed scale today was 103.9 kg. General: Patient is seen sitting out of bed to the chair feeding self, conversant, but needs multiple prompts before she gives an appropriate answer. HEENT: Makes eye contact, extraocular muscles are intact. Tongue is moist. Neck: There is a right IJ dialysis catheter. Heart: Regular S1 and S2. Extremities: There is 2+ edema that comes up to the hip, thigh, abdominal wall, sacral area and dependent areas. She has a dressing at the site of the previous pigtail catheter. There is no clubbing. Respiratory: There is symmetric air entry which is clear. She is on nasal cannula. There is no tachypneic or accessory muscle use. Abdomen: Soft, obese and nontender. There is abdominal wall and edema and edema on the flanks. Genitourinary: Her Teixeira catheter was removed. Neurologic: She is confused this morning, not at baseline mentation. Psychiatric: She is calm. Skin: Warm, dry and some pallor. LABORATORY DATA: White count 5.1, hemoglobin 8.3, platelets 97. Sodium 137, potassium 4.5, bicarbonate 28, creatinine 1.44. Ammonia level 110. RADIOLOGY STUDIES: Chest x-ray September 10: Subtle layering left effusion or possible left basilar atelectasis. INPATIENT MEDICATIONS: * Her lactulose dose was increased to 30 mL twice daily. * She is going to start on Aranesp and Venofer with dialysis today. The remainder of medications are unchanged from prior. PROBLEMS/PLAN: 1. Oliguric acute renal failure: Patient tolerated an aggressive CRRT prescription yesterday hence we are trying to transition her again to intermittent hemodynamically stable. Her systolic blood pressure has been 110s- 130s. I have ordered albumin with dialysis to help with hemodynamic support. I would like to remove 2 liters as tolerated. She is going to get a PermCath placed on Monday with vascular surgery. We will watch her for signs of renal recovery. Thus far there are none. 2. Acute blood loss anemia: Hemoglobin is stable in the 8s. She is going to start receiving Venofer and Aranesp with her hemodialysis treatments now and if her hemoglobin falls less than 8 I will transfuse her blood with dialysis as well. 3. Fluid overload and anasarca: She was tolerating significant fluid removal with CRRT and I am hopeful that she will tolerate fluid removal with intermittent hemodialysis as well. Albumin times 3 runs have been ordered with dialysis treatment of blood pressure support in order to help us remove fluid. Her pigtail catheter was removed yesterday and if she does not tolerate a fair amount of ultrafiltration her effusion could reoccur. 4. Hypotension: She continues on midodrine 5 mg three times a day. She is also ordered for albumin with dialysis for blood pressure support. 5. Hepatic encephalopathy: Her ammonia level today was 110 and she was altered and primary team has increased the lactulose dose. 6. Left traumatic hemothorax status post pigtail removal on September 09: Chest x-ray from today is noted. I am going to try and remove 2 liters as tolerated by her hemodynamics with intermittent hemodialysis today. MTDD
[2020-09-11] MEDS ORDERED: ceFAZolin 1GM VIAL (J0690 PER 500MG) As Ordered ONE (08:11)
[2020-09-11] MEDS: **NOTE PATIENT COMMENT** MISC XX SCH (09:00)
--- NOTE | 2020-09-11 09:09 | ROOPDOC ---
[facility] Report Of Operation Report of Operation DATE OF PROCEDURE: 09/11/20 PREPROCEDURE DIAGNOSES: End-stage renal disease requiring access for dialysis POSTPROCEDURE DIAGNOSES: Same PROCEDURE: 1. Ultrasound-guided access right internal jugular vein 2. Placement of a 23 cm tunneled PermCath right internal jugular vein SURGEON: Geoffrey Vazquez MD ANESTHESIA: Local anesthesia 23 mL lidocaine with epinephrine. Moderate intravenous conscious sedation was supervised by Dr. Vazquez. The patient was independent we monitor by registered nurse assigned to the Department of radiology using automated blood pressure, EKG, and pulse oximetry. The details sedation record is permanently stored in the hospital information system. The following is a brief sedation record: Start time 08:31, stop time 08:44, Versed 0.5 mg IV, fentanyl 25 g IV, Ancef 2 g IV. INDICATION FOR PROCEDURE: This very pleasant 65-year-old patient with end-stage renal disease requiring access for dialysis. Risks benefits alternatives to a right IJ PermCath were explained to the patient and she is agreeable to proceed. Informed consent was obtained. She has a recent history of a right IJ temporary dialysis catheter which has been discontinued by the nurses prior to this procedure and the site appears clean and intact. INTERPRETATION: The PermCath is in good position with no kinks in the catheter. The tip was freely mobile at the SVC right atrial junction. There is no pneumothorax. It is okay to use the catheter for dialysis. REPORT OF OPERATION: The patient was brought to the angiographic suite in stable condition. Her right neck and chest were prepped and draped in a sterile fashion. A timeout was performed. Sedation was administered without complication. Local anesthesia was administered to the skin and subcutaneous tissue over the right neck and chest. A microneedle was used to access the right internal jugular vein under ultrasound guidance. A wire was passed through this access and the needle was removed. A small incision was made at the access site with the skin knife. A micro-sheath was placed over the wire using a Seldinger technique and a wire was exchanged for an O35 wire into the SVC and IVC under fluoroscopic guidance. A small incision was made on the right chest laterally just distal to the clavicle and a 23 cm PermCath was tunneled from the right chest over the clavicle to the jugular access site within the subcutaneous tissue until the cough was within the subcutaneous tissue. We then performed 2 serial dilations over the wire into the jugular vein and peel-away sheath was placed. We then removed the inner cannula and wire in the tips of the catheter were advanced through the peel-away sheath into the central system. Following this, both ports ninfa back and flushed easily and were heparin locked. Appropriate caps were placed. Final imaging confirmed the catheter to be in good position with no kinks in the catheter no pneumothorax and the tip freely mobile at the SVC right atrial junction. We irrigated both incisions with saline. Jugular access site was closed with deep and superficial interrupted Monocryl suture and Dermabond at the skin. Hemostasis was good at closure. 2 Prolene sutures were placed at the exit site of the catheter on the chest. We then secured the catheter to the chest wall with 2 additional Prolene sutures. Sterile dressings were applied. The patient was taken to recovery in stable condition. She tolerated the procedure and the sedation well. ESTIMATED BLOOD LOSS: Approximately 5 mL. COMPLICATIONS: None. PLAN: It is okay to use the catheter for dialysis. It is okay to resume diet medications and orders per the primary team. I discussed with the hospitalist that preprocedure, the patient's hemoglobin was 7.6 and her platelet count was 70,000, and that she will need to be monitored in this regard, especially after dialysis today. This does put her at increased risk for bleeding or hematoma after PermCath placement, but so far we have good hemostasis. No bruising hematoma or bleeding are noted. We will keep her head elevated greater than 45 over the next 24 hours to decreased venous pressure and minimize risk of bleeding. We appreciate the opportunity to participate in the care of this patient. GEOFFREY VAZQUEZ MD Sep 11, 2020 09:09
[2020-09-11] MEDS: HumaLOG INSULIN (NovoLOG) PER UNIT SC SCH ×4 (10:00→20:16)
[2020-09-11] MEDS: LACTULOSE 20 GM/30 ML SYRUP UD PO SCH ×2 (10:04→20:10)
[2020-09-11] MEDS: GABAPENTIN 300 MG CAP PO SCH ×3 (10:04→20:09)
[2020-09-11] MEDS: MIDODRINE 5 MG TAB PO SCH ×3 (10:04→15:59)
[2020-09-11] MEDS: PANTOPRAZOLE 40MG VIAL (C9113 PER 1) IV SCH (10:05)
[2020-09-11] MEDS: ACETAMINOPHEN TAB 650MG DOSE (2X325MG) PO PRN (10:07)
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
--- NOTE | 2020-09-11 13:48 | IPN ---
DATE: 09/11/2020 SUBJECTIVE: Christina was seen and examined this morning at the bedside. She was confused overnight and CT head was performed with no acute finding. She received lactulose enema and she continues on lactulose b.i.d. and her ammonia levels have significantly improved from 110 yesterday down to 54 today. She was dialyzed yesterday and within 20 minutes of starting hemodialysis, she had a 40 point drop in systolic blood pressure despite use of albumin with dialysis and also despite receiving Midodrine. Hence, we had to dialyze her with Levophed for blood pressure support and we were able to remove 2 liters with her dialysis treatment. PHYSICAL EXAMINATION: VITAL SIGNS: Temperature 98.7, pulse 92, respiratory rate 18, saturating 100% on 2 liter nasal cannula. Intake yesterday was 540. Dialysis yesterday removed 2 liters. Weight in the bed scale today 101 kg. GENERAL: Patient is seen lying flat in bed, just got off the bed santos, awake, alert, oriented and conversational. HEENT: Extraocular muscles are intact. Tongue is moist. Neck is supple. CHEST: There is a Permacath now in the right chest wall and the temporary dialysis catheter was removed. CARDIAC: Heart sounds are regular, S1, S2. There is now only 1+ edema in the legs. RESPIRATORY: Lungs are fairly clear to auscultation. There are no crackles or rales. The left-sided chest tube pigtail has been removed. ABDOMEN: Soft and nontender. EXTREMITIES: Show improvement in peripheral edema now about 1+ and still some edema in the dependent areas. NEUROLOGIC: At the time of my visit, she was oriented x3, interactive and conversational . LABORATORY DATA: Sodium 137, potassium 3.8, bicarb 27, creatinine 1.3. Phosphorus 3.5. Ammonia 54. Hemoglobin 7.6, platelets 70,000. INPATIENT MEDICATIONS: She required Levophed with dialysis yesterday. Primary team increased the lactulose and gave her a lactulose enema. The remainder of medications are unchanged from prior. PROBLEMS: 1. Acute oligoanuric renal failure secondary to acute tubular injury/acute tubular necrosis plus contrast nephropathy: There are no signs of renal recovery. She remains dialysis dependent. Unfortunately, her systolic blood pressure had a 40 point drop within the first 20 minutes of hemodialysis yesterday despite use of Midodrine and albumin to augment the blood pressure. Hence, she had to be dialyzed with Levophed support and we were able to remove 2 liters with treatment. Her next dialysis will be on Monday and will need to be done in the ICU in case she requires pressors again. I am going to increase the Midodrine to 10 mg three times a day on dialysis days. She had a Permacath placed this morning by vascular surgery and her temporary dialysis catheter has been removed. 2. Anemia related to acute blood loss and iron deficiency and renal failure: Patient is receiving iron and Aranesp with her hemodialysis treatment. If hemoglobin remains less than 8 tomorrow, I will transfuse with dialysis. In view of anemia and thrombocytopenia, she is receiving Heparin free dialysis. 3. Hypotension: Blood pressure especially gets low on dialysis when we are removing fluid, she was dialyzed with albumin and is also on Midodrine three times a day. I am going to increase the dose of Midodrine on dialysis days. She may require Levophed pressor support for fluid removal during hemodialysis. 4. Fluid overload and anasarca: It is improving quite nicely. Her daily weights are down trending. We removed 2 liters with dialysis yesterday. She will be next dialyzed on Monday. She remains oligoanuric. 5. Hepatic encephalopathy: Lactulose level managed per primary team. Recently received lactulose enema and CT head was also done for altered mental status with no acute finding. MTDD
[2020-09-11 15:21] LABS: BASO # 0.1 10^3/uL (0.0-0.2); BASO % 0.9 % (0.0-1.0); EOS # 0.2 10^3/uL (0.0-0.5); EOS % 3.4 % (0.0-3.0); HEMATOCRIT 26.1 % (36.0-47.0); HEMOGLOBIN 8.2 g/dl (12.0-15.5); LYMPH # 1.2 10^3/uL (1.5-5.0); LYMPH % 22.4 % (24.0-44.0); MEAN CORPUSCULAR HEMOGLOBIN 29.8 pg (27.0-33.0); MEAN CORPUSCULAR HGB CONC 31.4 g/dl (32.0-36.5); MEAN CORPUSCULAR VOLUME 94.9 fl (80.0-96.0); MONO # 0.8 10^3/uL (0.0-0.8); MONO % 14.1 % (0.0-5.0); NEUTROPHILS # 3.1 10^3/uL (1.5-8.5); RED BLOOD COUNT 2.75 10^6/uL (4.00-5.40); WHITE BLOOD COUNT 5.3 10^3/uL (4.0-10.0)
[2020-09-11 15:28] LABS: PLATELET COUNT, AUTOMATED 84 10^3/uL (150-450)
[2020-09-11] MEDS: LIDOCAINE 5% (LIDODERM) PATCH TD SCH (20:10)
[2020-09-11] MEDS: ONDANSETRON 4MG/2ML VIAL IV PRN (20:54)
[2020-09-12] VITALS (39 sets, daily range): BP systolic 96–153; BP diastolic 44–67; O2SAT 95–96
[2020-09-12] MEDS: ACETAMINOPHEN TAB 650MG DOSE (2X325MG) PO PRN (00:47)
[2020-09-12] MEDS: RAMELTEON 8 MG TAB (ROZEREM) PO PRN ×2 (00:47→20:17)
[2020-09-12] MEDS: LEVALBUTEROL 1.25 MG/0.5 ML CONCENTRATE NEB NEB SCH ×4 (02:48→19:19)
[2020-09-12 04:28] LABS: HEMATOCRIT 24.4 % (36.0-47.0); HEMOGLOBIN 7.6 g/dl (12.0-15.5); MEAN CORPUSCULAR HEMOGLOBIN 29.5 pg (27.0-33.0); MEAN CORPUSCULAR HGB CONC 31.1 g/dl (32.0-36.5); MEAN CORPUSCULAR VOLUME 94.6 fl (80.0-96.0); RED BLOOD COUNT 2.58 10^6/uL (4.00-5.40)
[2020-09-12 04:31] LABS: PLATELET COUNT, AUTOMATED 76 10^3/uL (150-450)
[2020-09-12 04:55] LABS: ALBUMIN 2.7 GM/DL (3.2-5.2); CALCIUM LEVEL 8.6 MG/DL (8.8-10.2); CREATININE FOR GFR 1.9 MG/DL (0.55-1.30); GLOMERULAR FILTRATION RATE 28.4 (>45); PHOSPHORUS LEVEL 3.8 MG/DL (2.5-4.9); POTASSIUM SERUM 3.9 MEQ/L (3.5-5.1)
[2020-09-12] MEDS: LEVOTHYROXINE 25MCG TABLET (0.025MG) PO SCH (06:31)
[2020-09-12] MEDS: SODIUM CHLORIDE 0.9% INJ 10 ML SYR IV SCH ×2 (06:31→16:59)
[2020-09-12] MEDS: BISACODYL 10 MG SUPP PR SCH ×3 (06:31→17:06)
[2020-09-12] MEDS: HumaLOG INSULIN (NovoLOG) PER UNIT SC SCH ×4 (06:32→21:00)
[2020-09-12] MEDS: ONDANSETRON 4MG/2ML VIAL IV PRN (07:49)
[2020-09-12] MEDS: LACTULOSE 20 GM/30 ML SYRUP UD PO SCH ×2 (08:27→20:17)
[2020-09-12] MEDS: PANTOPRAZOLE 40MG VIAL (C9113 PER 1) IV SCH (08:27)
[2020-09-12] MEDS: **NOTE PATIENT COMMENT** MISC XX SCH (08:28)
[2020-09-12] MEDS: MIDODRINE 5 MG TAB PO SCH ×3 (08:28→16:59)
[2020-09-12] MEDS: GABAPENTIN 300 MG CAP PO SCH ×3 (08:28→20:17)
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
[2020-09-12] MEDS: NORCO, ANEXSIA 5/325MG TABLET (HYDROcodone/ACETAMINOPHEN) PO PRN (20:18)
[2020-09-12] MEDS: LIDOCAINE 5% (LIDODERM) PATCH TD SCH (20:20)
[2020-09-13] VITALS (22 sets, daily range): BP systolic 101–136; BP diastolic 50–63; O2SAT 90–95
[2020-09-13] MEDS: LEVALBUTEROL 1.25 MG/0.5 ML CONCENTRATE NEB NEB SCH ×4 (00:53→19:49)
[2020-09-13 04:56] LABS: HEMATOCRIT 29.8 % (36.0-47.0); HEMOGLOBIN 9.4 g/dl (12.0-15.5); MEAN CORPUSCULAR HEMOGLOBIN 29.7 pg (27.0-33.0); MEAN CORPUSCULAR HGB CONC 31.5 g/dl (32.0-36.5); RED BLOOD COUNT 3.17 10^6/uL (4.00-5.40); WHITE BLOOD COUNT 6.3 10^3/uL (4.0-10.0)
[2020-09-13 05:01] LABS: PLATELET COUNT, AUTOMATED 61 10^3/uL (150-450)
[2020-09-13] MEDS: SODIUM CHLORIDE 0.9% INJ 10 ML SYR IV SCH ×2 (05:21→18:09)
[2020-09-13] MEDS: LEVOTHYROXINE 25MCG TABLET (0.025MG) PO SCH (05:21)
[2020-09-13] MEDS: BISACODYL 10 MG SUPP PR SCH (05:21)
[2020-09-13 05:44] LABS: CALCIUM LEVEL 8.7 MG/DL (8.8-10.2); CREATININE FOR GFR 1.63 MG/DL (0.55-1.30); GLOMERULAR FILTRATION RATE 33.9 (>45); PHOSPHORUS LEVEL 3.5 MG/DL (2.5-4.9); POTASSIUM SERUM 3.9 MEQ/L (3.5-5.1)
[2020-09-13] MEDS: HumaLOG INSULIN (NovoLOG) PER UNIT SC SCH ×4 (07:52→20:01)
[2020-09-13] MEDS: MIDODRINE 5 MG TAB PO SCH ×3 (07:52→16:42)
[2020-09-13] MEDS: **NOTE PATIENT COMMENT** MISC XX SCH (08:31)
[2020-09-13] MEDS: GABAPENTIN 300 MG CAP PO SCH ×3 (08:31→20:00)
[2020-09-13] MEDS: LACTULOSE 20 GM/30 ML SYRUP UD PO SCH ×2 (08:31→20:00)
[2020-09-13] MEDS: PANTOPRAZOLE 40MG TAB (PROTONIX) PO SCH ×2 (08:31→20:00)
[2020-09-13] MEDS: NORCO, ANEXSIA 5/325MG TABLET (HYDROcodone/ACETAMINOPHEN) PO PRN ×2 (08:38→21:47)
[2020-09-13] MEDS ORDERED: FUROSEMIDE 100MG/10ML VIAL (J1940) IV ONE (11:30)
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
[2020-09-13] MEDS: ONDANSETRON 4MG/2ML VIAL IV PRN (12:34)
[2020-09-13] MEDS: LIDOCAINE 5% (LIDODERM) PATCH TD SCH (20:00)
[2020-09-14] VITALS (13 sets, daily range): BP systolic 127–145; BP diastolic 60–80; O2SAT 88–97
[2020-09-14] MEDS: LEVALBUTEROL 1.25 MG/0.5 ML CONCENTRATE NEB NEB SCH ×4 (00:28→20:00)
[2020-09-14] MEDS: LEVOTHYROXINE 25MCG TABLET (0.025MG) PO SCH (05:01)
[2020-09-14] MEDS: SODIUM CHLORIDE 0.9% INJ 10 ML SYR IV SCH ×2 (05:03→16:57)
[2020-09-14 05:29] LABS: HEMATOCRIT 29.3 % (36.0-47.0); HEMOGLOBIN 9.3 g/dl (12.0-15.5); MEAN CORPUSCULAR HEMOGLOBIN 30.1 pg (27.0-33.0); MEAN CORPUSCULAR HGB CONC 31.7 g/dl (32.0-36.5); MEAN CORPUSCULAR VOLUME 94.8 fl (80.0-96.0); RED BLOOD COUNT 3.09 10^6/uL (4.00-5.40); WHITE BLOOD COUNT 5.4 10^3/uL (4.0-10.0)
[2020-09-14 05:36] LABS: PLATELET COUNT, AUTOMATED 68 10^3/uL (150-450)
[2020-09-14 05:59] LABS: ALBUMIN 2.8 GM/DL (3.2-5.2); CALCIUM LEVEL 9.2 MG/DL (8.8-10.2); CREATININE FOR GFR 1.83 MG/DL (0.55-1.30); GLOMERULAR FILTRATION RATE 29.7 (>45); PHOSPHORUS LEVEL 3.7 MG/DL (2.5-4.9); POTASSIUM SERUM 3.9 MEQ/L (3.5-5.1)
[2020-09-14] MEDS: GABAPENTIN 300 MG CAP PO SCH ×3 (08:08→20:42)
[2020-09-14] MEDS: MIDODRINE 5 MG TAB PO SCH ×3 (08:08→16:56)
[2020-09-14] MEDS: NORCO, ANEXSIA 5/325MG TABLET (HYDROcodone/ACETAMINOPHEN) PO PRN ×2 (08:09→20:42)
[2020-09-14] MEDS: LACTULOSE 20 GM/30 ML SYRUP UD PO SCH ×2 (08:09→20:41)
[2020-09-14] MEDS: PANTOPRAZOLE 40MG TAB (PROTONIX) PO SCH ×2 (08:09→20:42)
[2020-09-14] MEDS: HumaLOG INSULIN (NovoLOG) PER UNIT SC SCH ×4 (08:09→21:00)
[2020-09-14] MEDS ORDERED: FUROSEMIDE 100MG/10ML VIAL (J1940) IV ONE ×3 (09:00→18:00)
[2020-09-14] MEDS: **NOTE PATIENT COMMENT** MISC XX SCH (09:00)
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
--- NOTE | 2020-09-14 09:31 | REP ---
INDICATION: reduced L sided breast sounds. COMPARISON: September 10, 2020 and September 09, 2020.. TECHNIQUE: Portable upright chest radiograph. FINDINGS: A right-sided central venous tunneled catheter is noted in place with its tip in the expected location of superior vena cava. Monitoring electrodes are seen. The left pleural drainage catheter is been removed and there is some re-accumulation of pleural fluid blunting left lateral pleural angle and obscuring the left hemidiaphragm. Multiple left-sided rib fractures are again noted.3 right lung remains clear. Right-sided PICC line terminates in the subclavian SVC junction region. IMPRESSION: Reaccumulating pleural fluid left base. <Electronically signed by Fox Cooper > 09/14/20 0911
--- NOTE | 2020-09-14 12:35 | IPN ---
DATE: 09/13/2020 Ms. Ngo is seen this morning on her bedside in the intensive care unit. She is much more alert and talking normal today. She underwent hemodialysis yesterday which she tolerated very well. She did not require any pressors during dialysis this time. We were able to remove about two liters of fluid. She did receive intravenous albumin at the start of dialysis and also she was given two units of packed red blood cells (RBCs). She reports that yesterday she urinated about 300 mL urine however today she has not voided at all so far. On physical exam, temperature 98 degrees Fahrenheit, heart rate 78 per minute, and respiratory rate 16 per minute. Blood pressure 136/63 mmHg and oxygen saturation 93% on room air. Head is atraumatic. Neck is supple and without jugular venous distention (JVD) or thyroid enlargement. Permacath in right internal jugular vein is intact. Her heart sounds are regular and lungs with bilateral scattered rales. She was able to sit up with only minimal assistance. Abdomen is soft, obese, and nontender. Bowel sounds are present. Extremities without any cyanosis or clubbing. Lower extremity edema is at least 2+. Neurologically she is much more alert and grossly intact. Nursing staff report that she did sit in the chair this morning. Todays labs show WBC count 6.3, hemoglobin 9.4, and hematocrit 29.8. Platelets are 61,000. Sodium 137, potassium 3.9, CO2 28, BUN 9, and creatinine 1.63. Glucose 115 and calcium 8.7. Albumin is up to 3.0. PROBLEMS: 1. Oliguric acute renal failure. She still does not have any urine output. She was dialyzed yesterday which she tolerated very well. Currently not on any pressors. I am going to give her another trial of diuretic with Lasix 100 mg intravenously today and see if she would respond. We will plan on dialyzing her again next week as needed. 2. Anemia. Her anemia has improved following transfusion of two units of packed red blood cells (RBCs). 3. Hypotension. Blood pressure has remained stable and she did not require pressors during dialysis yesterday. She remains on midodrine and will continue with the same. 4. Hepatic encephalopathy. She seems to be doing well now and her last ammonia level was 54 on 09/11/2020. 5. Disposition. From a renal standpoint, patient can be moved to progressive care unit. MTDD
--- NOTE | 2020-09-14 12:37 | IPN ---
DATE: 09/12/2020 SUBJECTIVE: Mrs. Ngo is seen this morning at the bedside in the Intensive Care Unit. She is awake and able to answer simple questions. She could not tell me the date and month correctly. She was able to tell me her date of and name. She reports vomiting once this morning but denies any abdominal pain, dyspnea or chest pain. She is currently not on any pressors. She remains anuric and dialysis dependent. PHYSICAL EXAMINATION: VITAL SIGNS: Temperature 98.4 degrees Fahrenheit, heart rate 88 per minute, respiratory rate 18 per minute, blood pressure 115/58 mm of mercury and oxygen saturation is 93% on one liter oxygen. HEENT: Head is atraumatic. NECK: Supple and JVD difficult to be assessed. Permacath is present in right IJ vein. HEART: Irregular in rhythm. LUNGS: With diminished breath sounds at the bases. ABDOMEN: Soft, mildly distended and nontender. Bowel sounds are present. EXTREMITIES: Without any cyanosis or clubbing. Lower extremity edema is about 2+. NEUROLOGICAL: Awake and able to answer simple questions. LABORATORY STUDIES: Todays labs show WBC count 5.0, hemoglobin 7.6 and hematocrit 24.4, platelets 76,000. Sodium 137, potassium 3.9, CO2 27, BUN 10, and creatinine 1.90. Glucose 191 and calcium 8.6. Albumin is 2.7. PROBLEMS: * Anuric acute renal failure - The patient remains anuric and dialysis dependent. She will be dialyzed this afternoon. * Anemia her anemia has worsened once again and we will transfuse her 2 units of packed RBCs. The patient has already consent for transfusion. * Hypertension she is currently not requiring any pressors, however her blood pressure drops quickly as dialysis gets started. She will be given 25% albumin, 50 mL at the start of dialysis. We will try to remove only 2 liters of fluid as tolerated. * Hepatic encephalopathy - currently she is much better and able to answer questions. Ammonia level was 54 yesterday. * Hypervolemia and generalized edema volume status is gradually improving and we will try to remove about 2 liters of fluid today as tolerated. MTDD
[2020-09-14] MEDS: LIDOCAINE 5% (LIDODERM) PATCH TD SCH (20:43)
[2020-09-14] MEDS: ONDANSETRON 4MG/2ML VIAL IV PRN (21:19)
[2020-09-14 22:13] LABS: CK-MB VALUE MASS 4.4 NG/ML (<3.6); CPK CREATINE PHOSPHOKINASE 42 U/L (26-192); MB/CK RELATIVE INDEX 10.48 (< OR =4); TROPONIN I < 0.02 NG/ML (< 0.10)
[2020-09-15] VITALS (9 sets, daily range): BP systolic 105–143; BP diastolic 52–62; O2SAT 93–95
[2020-09-15] MEDS: LEVALBUTEROL 1.25 MG/0.5 ML CONCENTRATE NEB NEB SCH ×4 (02:00→19:45)
[2020-09-15] MEDS: NORCO, ANEXSIA 5/325MG TABLET (HYDROcodone/ACETAMINOPHEN) PO PRN ×3 (04:13→18:15)
[2020-09-15 04:54] LABS: BASO % 0.8 % (0.0-1.0); EOS # 0.4 10^3/uL (0.0-0.5); HEMATOCRIT 30.6 % (36.0-47.0); HEMOGLOBIN 9.6 g/dl (12.0-15.5); LYMPH % 19.6 % (24.0-44.0); MEAN CORPUSCULAR HEMOGLOBIN 29.7 pg (27.0-33.0); MEAN CORPUSCULAR HGB CONC 31.4 g/dl (32.0-36.5); MEAN CORPUSCULAR VOLUME 94.7 fl (80.0-96.0); MONO # 0.7 10^3/uL (0.0-0.8); MONO % 13.2 % (0.0-5.0); NEUTROPHILS % 59.2 % (36.0-66.0); RED BLOOD COUNT 3.23 10^6/uL (4.00-5.40)
[2020-09-15 04:56] LABS: PLATELET COUNT, AUTOMATED 82 10^3/uL (150-450)
[2020-09-15 05:17] LABS: ALBUMIN 2.7 GM/DL (3.2-5.2); CALCIUM LEVEL 8.9 MG/DL (8.8-10.2); CREATININE FOR GFR 1.58 MG/DL (0.55-1.30); GLOMERULAR FILTRATION RATE 35.2 (>45); PHOSPHORUS LEVEL 3.9 MG/DL (2.5-4.9)
[2020-09-15] MEDS: LEVOTHYROXINE 25MCG TABLET (0.025MG) PO SCH (05:17)
[2020-09-15] MEDS: SODIUM CHLORIDE 0.9% INJ 10 ML SYR IV SCH ×2 (05:18→18:14)
[2020-09-15] MEDS: HumaLOG INSULIN (NovoLOG) PER UNIT SC SCH ×4 (07:30→20:18)
--- NOTE | 2020-09-15 08:05 | IPN ---
DATE: 09/14/2020 SUBJECTIVE: Ms. Ngo is seen this morning on her bedside. She is feeling much better and denies any nausea, vomiting, dyspnea or chest pain. She had a portable chest x-ray done this morning ordered by the Hospitalist Service due to possible fluid overload. Patient remains oliguric and has been dialysis dependent. She did receive Lasix 100 mg intravenously yesterday with only minimal urine output. PHYSICAL EXAMINATION: Temperature 97.4 degrees Fahrenheit, heart rate 88 per minute, respiratory rate 20 per minute. Blood pressure 131/60 mmHg and oxygen saturation 94% on 1 liter oxygen. Head: Atraumatic. Neck: Supple and JVD not abnormally elevated. Permacath is present in the right internal jugular vein. Heart: Sounds are regular. Lungs: With bilateral rales and diminished breath sounds. Abdomen: Soft and nontender and bowel sounds are present. Extremities: Without any cyanosis or clubbing. Lower extremity edema is at least 2+. Neurologically: Awake, alert and seems well oriented today. LABORATORY DATA: Todays labs show WBC count 5.4, hemoglobin 9.3 and hematocrit 29.3, platelets 68,000. Sodium 135, potassium 3.9, CO2 27, BUN 12 and creatinine 1.83. Glucose 151 and calcium 9.2. Albumin level is 2.8. PROBLEMS/PLAN: * Oliguric acute renal failure: Patient remains oliguric and she was dialyzed on Monday. We will plan to dialyze her again tomorrow. Her labs are appropriate at this point and there is no emergent need for dialysis today. * Congestive heart failure and pleural effusion: She does have a left pleural effusion on her chest x-ray and bilateral pulmonary rales. I am going to give her 2 doses of Lasix 100 mg each today and will see how she responds. We have been trying to remove at least 2 liters of fluid with each dialysis; however, he does get hypotensive and we are unable to remove too much fluid. * Hypotension: Blood pressure has been reasonable now and she has been on midodrine. I am going to put hold parameters with blood pressure above 120 mmHg. * Anemia: Her anemia has been stable following recent transfusion. She also receives Aranesp once a week. * Hepatic encephalopathy: She seems to be very bright today and has been receiving lactulose. Ammonia level was 54 on September 11. * Generalized weakness and deconditioning: Patient should get physical therapy and I have advised the nursing staff to get her out of bed more often. CLYDED
[2020-09-15] MEDS: PANTOPRAZOLE 40MG TAB (PROTONIX) PO SCH ×2 (08:34→20:19)
[2020-09-15] MEDS: MIDODRINE 5 MG TAB PO SCH ×3 (08:34→16:56)
[2020-09-15] MEDS: GABAPENTIN 300 MG CAP PO SCH ×3 (08:34→20:19)
[2020-09-15] MEDS: LACTULOSE 20 GM/30 ML SYRUP UD PO SCH ×2 (08:35→20:18)
[2020-09-15] MEDS: **NOTE PATIENT COMMENT** MISC XX SCH (08:36)
[2020-09-15] MEDS ORDERED: FUROSEMIDE 100MG/10ML VIAL (J1940) IV ONE (10:30)
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
--- NOTE | 2020-09-15 12:23 | IPN ---
NEPHROLOGY PROGRESS NOTE DATE: 09/15/2020 SUBJECTIVE: Ms. Ngo is seen this morning on her bedside. She is feeling well and reports increased urine output. Yesterday she was given 2 doses of Lasix 100 mg each and urine output was 1100 mL. This morning she has already made about 700 mL of urine. She denies any nausea or vomiting. She has no fever or chills. PHYSICAL EXAMINATION: Temperature 97.4 degrees Fahrenheit, heart rate 84 per minute and respiratory rate 20 per minute. Blood pressure 108/52 mmHg and oxygen saturation 97% on 2 liters oxygen. Head: Atraumatic. Neck: Supple and JVD difficult to be assessed. Right sided internal jugular vein hemodialysis catheter is intact. Heart: Sounds are regular. Lungs: With diminished breath sounds and bilateral rales. Abdomen: Soft and nontender. Abdominal wall edema is present. Extremities: No cyanosis or clubbing. Lower extremity edema is at least 2+. Neurologically: She is awake, alert and oriented times 3. LABORATORY DATA: Todays labs show WBC count 5, hemoglobin 9.6 and hematocrit 30.6. Sodium 135, potassium 4, CO2 29, BUN 15 and creatinine 1.58. Glucose 95 and calcium 8.9. PROBLEMS/PLAN: 1. Acute renal failure superimposed on chronic kidney disease: Patient is now non-oliguric. She responded to Lasix yesterday and I will give her another dose of 100 mg Lasix today. She already has 700 mL urine output this morning. Important thing is to note that her creatinine decreased from 1.83 yesterday down to 1.58 today. I think this is a very optimistic sign and we will hold off on dialysis. Kidney function will be checked again tomorrow morning. 2. Congestive heart failure/hypovolemia: She still has generalized anasarca as she had almost anuric renal failure for a few weeks. Now she seems to be responding and we will give her Lasix 100 mg I.V. today and see how her urine output goes. 3. Hypotension: Her blood pressure seems to be doing well. She remains on midodrine. 4. Anemia: Stable at present and no urgent intervention is needed. 5. Hepatic encephalopathy: She seems to be doing well and remains without any symptoms. She continues with oral lactulose. MTDD
--- NOTE | 2020-09-15 14:03 | ECGEPIP ---
[facility] Test Date: 2020-09-14 Pat Name: AUDREY VILLALOBOS Department: Room: [place] [address] Gender: Female [employer]: priya jansen : 1955 Requested By: KEANU CONTRERAS Order Number: [id number] Reading MD: Gregg Garnett Measurements Intervals [place] Rate: 88 P: 43 [place]: 156 QRS: -29 QRSD: 109 T: 64 QT: 373 QTc: 453 Interpretive Statements SINUS RHYTHM BORDERLINE LEFT AXIS DEVIATION Delayed anterior R wave progression NONSPECIFIC T-WAVE ABNORMALITY Similar to tracing done 07-10-20 Electronically Signed on 09-15-2020 14:02:50 EST by Gregg Garnett
[2020-09-15] MEDS: LIDOCAINE 5% (LIDODERM) PATCH TD SCH (20:19)
[2020-09-16] VITALS: BP 122/58
[2020-09-16] MEDS: LEVALBUTEROL 1.25 MG/0.5 ML CONCENTRATE NEB NEB SCH ×4 (01:19→19:19)
[2020-09-16 04:04] VITALS: BP 117/59
[2020-09-16] MEDS: LEVOTHYROXINE 25MCG TABLET (0.025MG) PO SCH (05:35)
[2020-09-16] MEDS: NORCO, ANEXSIA 5/325MG TABLET (HYDROcodone/ACETAMINOPHEN) PO PRN ×2 (05:36→13:58)
[2020-09-16] MEDS: SODIUM CHLORIDE 0.9% INJ 10 ML SYR IV SCH ×2 (05:36→17:32)
[2020-09-16 06:03] LABS: BASO % 0.9 % (0.0-1.0); EOS # 0.3 10^3/uL (0.0-0.5); EOS % 6.5 % (0.0-3.0); HEMOGLOBIN 9.4 g/dl (12.0-15.5); LYMPH # 0.8 10^3/uL (1.5-5.0); LYMPH % 17.1 % (24.0-44.0); MEAN CORPUSCULAR HEMOGLOBIN 29.8 pg (27.0-33.0); MEAN CORPUSCULAR HGB CONC 31.3 g/dl (32.0-36.5); MEAN CORPUSCULAR VOLUME 95.2 fl (80.0-96.0); MONO # 0.7 10^3/uL (0.0-0.8); MONO % 15.6 % (0.0-5.0); NEUTROPHILS # 2.7 10^3/uL (1.5-8.5); NEUTROPHILS % 59.7 % (36.0-66.0); RED BLOOD COUNT 3.15 10^6/uL (4.00-5.40); WHITE BLOOD COUNT 4.5 10^3/uL (4.0-10.0)
[2020-09-16 06:06] LABS: PLATELET COUNT, AUTOMATED 95 10^3/uL (150-450)
[2020-09-16 06:34] LABS: ALBUMIN 2.6 GM/DL (3.2-5.2); CALCIUM LEVEL 9.2 MG/DL (8.8-10.2); CREATININE FOR GFR 1.67 MG/DL (0.55-1.30); PHOSPHORUS LEVEL 4.2 MG/DL (2.5-4.9)
[2020-09-16 08:00] VITALS: BP 110/56
[2020-09-16] MEDS: PANTOPRAZOLE 40MG TAB (PROTONIX) PO SCH ×2 (08:56→20:45)
[2020-09-16] MEDS: MIDODRINE 5 MG TAB PO SCH ×3 (08:56→17:31)
[2020-09-16] MEDS: GABAPENTIN 300 MG CAP PO SCH ×3 (08:56→20:45)
[2020-09-16] MEDS: HumaLOG INSULIN (NovoLOG) PER UNIT SC SCH ×4 (08:56→20:40)
[2020-09-16] MEDS: FUROSEMIDE 100MG/10ML VIAL (J1940) IV SCH ×2 (08:57→17:32)
[2020-09-16] MEDS: LACTULOSE 20 GM/30 ML SYRUP UD PO SCH ×2 (08:57→20:45)
[2020-09-16] MEDS: **NOTE PATIENT COMMENT** MISC XX SCH (09:00)
[2020-09-16 12:00] VITALS: BP 113/80
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
[2020-09-16 16:00] VITALS: BP 139/65
[2020-09-16 20:00] VITALS: BP 142/62
[2020-09-16] MEDS: LIDOCAINE 5% (LIDODERM) PATCH TD SCH (20:46)
[2020-09-17] VITALS (7 sets, daily range): BP systolic 103–150; BP diastolic 51–73
[2020-09-17] MEDS: FUROSEMIDE 100MG/10ML VIAL (J1940) IV SCH ×3 (01:35→16:15)
[2020-09-17] MEDS: LEVALBUTEROL 1.25 MG/0.5 ML CONCENTRATE NEB NEB SCH ×4 (02:18→20:08)
[2020-09-17] MEDS: NORCO, ANEXSIA 5/325MG TABLET (HYDROcodone/ACETAMINOPHEN) PO PRN ×2 (04:10→15:15)
[2020-09-17] MEDS: LEVOTHYROXINE 25MCG TABLET (0.025MG) PO SCH (05:52)
[2020-09-17] MEDS: SODIUM CHLORIDE 0.9% INJ 10 ML SYR IV SCH ×2 (05:53→16:49)
[2020-09-17] MEDS: MIDODRINE 5 MG TAB PO SCH ×3 (08:00→16:00)
[2020-09-17 08:09] LABS: BASO % 0.9 % (0.0-1.0); EOS # 0.3 10^3/uL (0.0-0.5); EOS % 6.7 % (0.0-3.0); HEMATOCRIT 30.8 % (36.0-47.0); HEMOGLOBIN 9.8 g/dl (12.0-15.5); LYMPH % 22.1 % (24.0-44.0); MEAN CORPUSCULAR HEMOGLOBIN 29.7 pg (27.0-33.0); MEAN CORPUSCULAR HGB CONC 31.8 g/dl (32.0-36.5); MEAN CORPUSCULAR VOLUME 93.3 fl (80.0-96.0); MONO # 0.6 10^3/uL (0.0-0.8); MONO % 14.2 % (0.0-5.0); NEUTROPHILS # 2.4 10^3/uL (1.5-8.5); NEUTROPHILS % 55.9 % (36.0-66.0); PLATELET COUNT, AUTOMATED 107 10^3/uL (150-450); WHITE BLOOD COUNT 4.3 10^3/uL (4.0-10.0)
[2020-09-17 08:33] LABS: ALBUMIN 2.9 GM/DL (3.2-5.2); CALCIUM LEVEL 9.1 MG/DL (8.8-10.2); CREATININE FOR GFR 1.51 MG/DL (0.55-1.30); GLOMERULAR FILTRATION RATE 37.1 (>45); POTASSIUM SERUM 3.8 MEQ/L (3.5-5.1)
[2020-09-17] MEDS: GABAPENTIN 300 MG CAP PO SCH ×3 (08:51→20:38)
[2020-09-17] MEDS: PANTOPRAZOLE 40MG TAB (PROTONIX) PO SCH ×2 (08:51→20:38)
[2020-09-17] MEDS: LACTULOSE 20 GM/30 ML SYRUP UD PO SCH ×2 (08:51→20:30)
[2020-09-17] MEDS: HumaLOG INSULIN (NovoLOG) PER UNIT SC SCH ×4 (08:52→20:30)
[2020-09-17] MEDS: **NOTE PATIENT COMMENT** MISC XX SCH (08:52)
--- NOTE | 2020-09-17 09:11 | IPN ---
DATE: 09/16/2020 SUBJECTIVE: Mrs. Ngo is seen this morning on her bedside. She is feeling about the same and denies any new complaints. She reports that she did walk with the physical therapist yesterday, however, could not go any long distance. She is still very weak. She has decreased urine output, though she did respond to I.V. Lasix yesterday and the day before. She remains on oxygen 2 liters. She denies any nausea or vomiting. PHYSICAL EXAMINATION: VITAL SIGNS: Temperature 97.2 degrees Fahrenheit, heart rate 78 per minute, respiratory rate 20 per minute, blood pressure 113/80 mmHg and oxygen saturation 94% on 2 liter oxygen. INTAKE AND OUTPUT: Records from yesterday show total intake 960 and output 1250 mL. HEENT: Head is atraumatic. NECK: Supple and JVD difficult to be assessed. Permacath is present in right internal jugular vein. HEART: Heart sounds are regular. LUNGS: With diminished breath sounds and bilateral rales. ABDOMEN: Obese and nontender. Bowel sounds are normal. EXTREMITIES: Without any cyanosis or clubbing. Lower extremity edema is still significant, at least 2+. NEUROLOGICAL: Awake, alert and at her baseline mentation. LABORATORY STUDIES: Todays labs show WBC 4.5, hemoglobin 9.4, hematocrit 30, platelets 95,000. Sodium 132, potassium 4.0, CO2 26, BUN 17, creatinine 1.67, glucose 162 and calcium 9.2. Albumin 2.6. PROBLEMS: 1. Acute kidney injury superimposed on chronic kidney disease: Patient had anuric renal failure, which has now improved and she is making urine. We have not dialyzed her since Monday. At present, we are going to continue monitoring her kidney function without dialysis. 2. Congestive heart failure: Her volume status remains decompensated. I am starting Lasix 100 mg every 8 hours. Yesterday she received two doses of Lasix and we will see how she does today. If she fails to have adequate urine output, then we may need to consider dialysis again. 3. Hyponatremia: Her sodium level is gradually worsening, which is probably related to use of diuretic and acute kidney injury. No urgent intervention is indicated as yet. 4. Hepatic encephalopathy: She is at present very alert and oriented. She remains on oral lactulose. 5. Anemia: Her anemia is stable since she was transfused on Monday. 6. Generalized weakness and deconditioning: Patient has started physical therapy and will probably require rehab for at least a few more days. MTDD
--- NOTE | 2020-09-17 13:54 | IPN ---
DATE: 09/17/2020 SUBJECTIVE: Ms. Bennett is seen this morning at her bedside. She was sitting in the chair at the time of my visit. She is feeling much better now, however still has significant peripheral edema. She denies any dyspnea or chest pain. She reports good appetite and denies any nausea or vomiting. PHYSICAL EXAMINATION: VITAL SIGNS: Temperature 97.7 degrees Fahrenheit, heart is 85 per minute, respiratory rate 18 per minute, blood pressure 134/62 mm of Mercury and oxygen saturation is 92% on room air. Intake and output records from yesterday show a positive fluid balance of 970, however today she has urinated about 1,500 mL so far. HEENT: Head is atraumatic. NECK: Supple. Neck veins are difficult to be assessed. Internal jugular vein catheter is present. HEART: Regular. LUNGS: Diminished breath sounds and bilateral rales. ABDOMEN: Soft and nontender and bowel sounds are present. Mild ascites is also noticed. Abdominal wall edema is still present. BACK: Edema is still present. EXTREMITIES: Without any cyanosis or clubbing. Lower extremity edema is 4+ and extends up to her wrists. NEUROLOGICALLY: Awake, alert and grossly intact. LABORATORY STUDIES: Todays labs show a WBC count of 4.3, hemoglobin 9.8 and hematocrit 30.8. Platelets are up to 107. Sodium 132, potassium 3.8, CO2 27, BUN 21, and creatinine 1.51. Albumin is 2.9. PROBLEMS: 1. Acute renal failure superimposed on chronic kidney disease - The patient had anuric acute renal failure, however now she is non-oliguric. Kidney function has improved and stable for the last 3 days. No need for dialysis at present. 2. Hypervolemia and anasarca this is multifactorial but mostly related to anuric acute renal failure and low serum albumin. Her albumin level has also improved now and she is responding to diuretics. We will continue with Lasix 100 mg every 8 hours for now. We will aim for a negative fluid balance of at least one liter per day. 3. Hyponatremia - sodium level is stable at present and we will continue to monitor her electrolytes on a praveen basis. 4. Anemia anemia has been stable and does not need any intervention. 5. Hepatic encephalopathy she is doing very well now and remains stable. 6. General weakness and deconditioning she is still weak and her lower extremities have massive edema due to that she has difficulty walking. We will continue our efforts to correct her volume status. She has also started with physical therapy. CLYDED
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
[2020-09-17] MEDS: LIDOCAINE 5% (LIDODERM) PATCH TD SCH (20:39)
[2020-09-18] VITALS: BP 125/59
[2020-09-18] MEDS: FUROSEMIDE 100MG/10ML VIAL (J1940) IV SCH ×3 (01:22→16:43)
[2020-09-18] MEDS: NORCO, ANEXSIA 5/325MG TABLET (HYDROcodone/ACETAMINOPHEN) PO PRN ×3 (01:22→21:43)
[2020-09-18] MEDS: LEVALBUTEROL 1.25 MG/0.5 ML CONCENTRATE NEB NEB SCH ×4 (02:00→18:20)
[2020-09-18 04:00] VITALS: BP 98/57
[2020-09-18] MEDS: SODIUM CHLORIDE 0.9% INJ 10 ML SYR IV SCH ×2 (06:31→18:07)
[2020-09-18] MEDS: LEVOTHYROXINE 25MCG TABLET (0.025MG) PO SCH (06:31)
[2020-09-18 07:12] LABS: EOS # 0.3 10^3/uL (0.0-0.5); EOS % 7.3 % (0.0-3.0); HEMATOCRIT 28.7 % (36.0-47.0); HEMOGLOBIN 9.4 g/dl (12.0-15.5); LYMPH # 0.7 10^3/uL (1.5-5.0); LYMPH % 18.3 % (24.0-44.0); MEAN CORPUSCULAR HEMOGLOBIN 30.5 pg (27.0-33.0); MEAN CORPUSCULAR HGB CONC 32.8 g/dl (32.0-36.5); MEAN CORPUSCULAR VOLUME 93.2 fl (80.0-96.0); MONO # 0.8 10^3/uL (0.0-0.8); MONO % 19.8 % (0.0-5.0); NEUTROPHILS % 53.3 % (36.0-66.0); PLATELET COUNT, AUTOMATED 114 10^3/uL (150-450); RED BLOOD COUNT 3.08 10^6/uL (4.00-5.40); WHITE BLOOD COUNT 3.8 10^3/uL (4.0-10.0)
[2020-09-18 07:37] LABS: ALBUMIN 2.6 GM/DL (3.2-5.2); CALCIUM LEVEL 8.7 MG/DL (8.8-10.2); CREATININE FOR GFR 1.41 MG/DL (0.55-1.30); GLOMERULAR FILTRATION RATE 40.1 (>45); PHOSPHORUS LEVEL 3.6 MG/DL (2.5-4.9); POTASSIUM SERUM 3.3 MEQ/L (3.5-5.1)
[2020-09-18 08:00] VITALS: BP 103/54
[2020-09-18] MEDS: PANTOPRAZOLE 40MG TAB (PROTONIX) PO SCH ×2 (08:06→21:43)
[2020-09-18] MEDS: POTASSIUM CHLORIDE 10 MEQ SR TABLET PO SCH ×3 (08:06→21:42)
[2020-09-18] MEDS: MIDODRINE 5 MG TAB PO SCH ×3 (08:06→16:00)
[2020-09-18] MEDS: GABAPENTIN 300 MG CAP PO SCH ×3 (08:06→21:43)
[2020-09-18] MEDS: HumaLOG INSULIN (NovoLOG) PER UNIT SC SCH ×4 (08:07→21:00)
[2020-09-18] MEDS: **NOTE PATIENT COMMENT** MISC XX SCH (08:08)
[2020-09-18] MEDS ORDERED: POTASSIUM CHLORIDE 10 MEQ SR TABLET PO ONE (08:15)
[2020-09-18] MEDS: LACTULOSE 20 GM/30 ML SYRUP UD PO SCH ×2 (09:00→21:00)
[2020-09-18 12:00] VITALS: BP 170/80
[2020-09-18 16:00] VITALS: BP 135/62
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
[2020-09-18 20:00] VITALS: BP 143/64
[2020-09-18] MEDS: LIDOCAINE 5% (LIDODERM) PATCH TD SCH (21:41)
[2020-09-19] VITALS: BP 115/55
[2020-09-19] MEDS: SODIUM CHLORIDE 0.9% INJ 10 ML SYR IV PRN ×2 (02:00→09:45)
[2020-09-19] MEDS: FUROSEMIDE 100MG/10ML VIAL (J1940) IV SCH ×3 (02:01→16:07)
[2020-09-19] MEDS: LEVALBUTEROL 1.25 MG/0.5 ML CONCENTRATE NEB NEB SCH ×4 (02:26→20:00)
[2020-09-19 04:00] VITALS: BP 124/62
[2020-09-19] MEDS: LEVOTHYROXINE 25MCG TABLET (0.025MG) PO SCH (05:40)
[2020-09-19] MEDS: SODIUM CHLORIDE 0.9% INJ 10 ML SYR IV SCH ×2 (05:41→16:09)
[2020-09-19 06:17] LABS: HEMATOCRIT 29.3 % (36.0-47.0); HEMOGLOBIN 9.3 g/dl (12.0-15.5); MEAN CORPUSCULAR HEMOGLOBIN 29.6 pg (27.0-33.0); MEAN CORPUSCULAR HGB CONC 31.7 g/dl (32.0-36.5); MEAN CORPUSCULAR VOLUME 93.3 fl (80.0-96.0); PLATELET COUNT, AUTOMATED 124 10^3/uL (150-450); RED BLOOD COUNT 3.14 10^6/uL (4.00-5.40); WHITE BLOOD COUNT 3.8 10^3/uL (4.0-10.0)
[2020-09-19] MEDS: NORCO, ANEXSIA 5/325MG TABLET (HYDROcodone/ACETAMINOPHEN) PO PRN ×2 (06:28→22:14)
[2020-09-19 06:44] LABS: CALCIUM LEVEL 8.6 MG/DL (8.8-10.2); CREATININE FOR GFR 1.32 MG/DL (0.55-1.30); GLOMERULAR FILTRATION RATE 43.3 (>45); POTASSIUM SERUM 3.7 MEQ/L (3.5-5.1)
[2020-09-19 08:00] VITALS: BP 144/76
[2020-09-19] MEDS: **NOTE PATIENT COMMENT** MISC XX SCH (09:00)
[2020-09-19] MEDS: GABAPENTIN 300 MG CAP PO SCH ×3 (09:12→22:13)
[2020-09-19] MEDS: PANTOPRAZOLE 40MG TAB (PROTONIX) PO SCH ×2 (09:12→22:13)
[2020-09-19] MEDS: POTASSIUM CHLORIDE 10 MEQ SR TABLET PO SCH ×3 (09:12→22:13)
[2020-09-19] MEDS: HumaLOG INSULIN (NovoLOG) PER UNIT SC SCH ×4 (09:13→21:00)
[2020-09-19] MEDS: LACTULOSE 20 GM/30 ML SYRUP UD PO SCH ×2 (09:13→21:00)
[2020-09-19 12:00] VITALS: BP 158/69
[2020-09-19] MEDS ORDERED: metOLazone 2.5 MG TAB PO ONE (12:30)
[2020-09-19 16:00] VITALS: BP 131/60
[2020-09-19] MEDS: SPIRONOLACTONE 25 MG TAB PO SCH (16:08)
[2020-09-19 20:00] VITALS: BP 142/63
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
[2020-09-19] MEDS: LIDOCAINE 5% (LIDODERM) PATCH TD SCH (22:14)
[2020-09-20] VITALS: BP 108/48
[2020-09-20] MEDS: FUROSEMIDE 100MG/10ML VIAL (J1940) IV SCH ×3 (00:46→17:41)
[2020-09-20] MEDS: SODIUM CHLORIDE 0.9% INJ 10 ML SYR IV PRN ×2 (00:49→08:37)
[2020-09-20] MEDS: LEVALBUTEROL 1.25 MG/0.5 ML CONCENTRATE NEB NEB SCH ×4 (02:00→19:49)
[2020-09-20 04:00] VITALS: BP 113/56
[2020-09-20] MEDS: LEVOTHYROXINE 25MCG TABLET (0.025MG) PO SCH (06:05)
[2020-09-20] MEDS: SODIUM CHLORIDE 0.9% INJ 10 ML SYR IV SCH ×2 (06:06→17:41)
[2020-09-20] MEDS: NORCO, ANEXSIA 5/325MG TABLET (HYDROcodone/ACETAMINOPHEN) PO PRN ×3 (06:06→21:32)
[2020-09-20 06:26] LABS: HEMATOCRIT 29.1 % (36.0-47.0); HEMOGLOBIN 9.3 g/dl (12.0-15.5); MEAN CORPUSCULAR HEMOGLOBIN 30.3 pg (27.0-33.0); MEAN CORPUSCULAR VOLUME 94.8 fl (80.0-96.0); PLATELET COUNT, AUTOMATED 143 10^3/uL (150-450); RED BLOOD COUNT 3.07 10^6/uL (4.00-5.40); WHITE BLOOD COUNT 3.4 10^3/uL (4.0-10.0)
[2020-09-20 06:54] LABS: CALCIUM LEVEL 8.3 MG/DL (8.8-10.2); CREATININE FOR GFR 1.24 MG/DL (0.55-1.30); GLOMERULAR FILTRATION RATE 46.5 (>45); POTASSIUM SERUM 3.5 MEQ/L (3.5-5.1)
[2020-09-20 08:00] VITALS: BP 144/65
[2020-09-20] MEDS: LACTULOSE 20 GM/30 ML SYRUP UD PO SCH (08:35)
[2020-09-20] MEDS: HumaLOG INSULIN (NovoLOG) PER UNIT SC SCH ×4 (08:36→21:00)
[2020-09-20] MEDS: SPIRONOLACTONE 25 MG TAB PO SCH ×2 (08:36→21:32)
[2020-09-20] MEDS: POTASSIUM CHLORIDE 10 MEQ SR TABLET PO SCH ×3 (08:37→21:32)
[2020-09-20] MEDS: GABAPENTIN 300 MG CAP PO SCH ×3 (08:37→21:33)
[2020-09-20] MEDS: PANTOPRAZOLE 40MG TAB (PROTONIX) PO SCH ×2 (08:37→21:33)
[2020-09-20] MEDS: **NOTE PATIENT COMMENT** MISC XX SCH (08:38)
[2020-09-20] MEDS ORDERED: metOLazone 2.5 MG TAB PO ONE (13:30)
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
[2020-09-20 16:00] VITALS: BP 138/60
[2020-09-20 20:00] VITALS: BP 134/70
[2020-09-20] MEDS: RAMELTEON 8 MG TAB (ROZEREM) PO PRN (21:33)
[2020-09-20] MEDS: LIDOCAINE 5% (LIDODERM) PATCH TD SCH (21:33)
[2020-09-20 22:00] VITALS: BP 120/55
[2020-09-21] MEDS: LEVALBUTEROL 1.25 MG/0.5 ML CONCENTRATE NEB NEB SCH ×4 (02:00→19:33)
[2020-09-21] MEDS: FUROSEMIDE 100MG/10ML VIAL (J1940) IV SCH ×2 (02:15→08:29)
[2020-09-21] MEDS: SODIUM CHLORIDE 0.9% INJ 10 ML SYR IV PRN (03:16)
[2020-09-21 06:00] VITALS: BP 122/58
[2020-09-21] MEDS: SODIUM CHLORIDE 0.9% INJ 10 ML SYR IV SCH ×2 (06:23→17:49)
[2020-09-21] MEDS: LEVOTHYROXINE 25MCG TABLET (0.025MG) PO SCH (06:24)
[2020-09-21 06:40] LABS: HEMOGLOBIN 9.3 g/dl (12.0-15.5); MEAN CORPUSCULAR HEMOGLOBIN 29.6 pg (27.0-33.0); MEAN CORPUSCULAR VOLUME 95.5 fl (80.0-96.0); PLATELET COUNT, AUTOMATED 158 10^3/uL (150-450); RED BLOOD COUNT 3.14 10^6/uL (4.00-5.40); WHITE BLOOD COUNT 3.8 10^3/uL (4.0-10.0)
[2020-09-21 07:08] LABS: CALCIUM LEVEL 8.8 MG/DL (8.8-10.2); CREATININE FOR GFR 1.29 MG/DL (0.55-1.30); GLOMERULAR FILTRATION RATE 44.4 (>45); POTASSIUM SERUM 4.3 MEQ/L (3.5-5.1)
--- NOTE | 2020-09-21 07:09 | RO ---
DATE OF OPERATION: 09/18/2020 PROCEDURE: Removal of Permacath from right internal jugular vein. INDICATIONS FOR PROCEDURE: Recovered kidney function in the setting of acute renal failure. ANESTHESIA: None. SURGEON: Manuel Gleason MD. DESCRIPTION OF PROCEDURE: Informed consent obtained from the patient, as the patient does not need dialysis anymore and does not need the Permacath anymore. Her last dialysis was performed on Wednesday 09/12 and since then, she has increasing urine output without requiring dialysis. Dressing from the Permacath was removed and sutures were removed with some difficulty, but no problem. With direct pressure held at the catheter site, the cuff of the catheter was dislodged and came out with gentle pull. After that, the whole catheter was pulled out, which came out intact. Manual pressure was held at the catheter removal site for several minutes and hemostasis secured. A pressure dressing was then applied. The patient tolerated the procedure very well and there were no immediate complications. BRIAN
[2020-09-21] MEDS: HumaLOG INSULIN (NovoLOG) PER UNIT SC SCH ×4 (08:28→21:00)
[2020-09-21] MEDS: LACTULOSE 20 GM/30 ML SYRUP UD PO SCH (08:28)
[2020-09-21] MEDS: GABAPENTIN 300 MG CAP PO SCH ×3 (08:29→21:43)
[2020-09-21] MEDS: PANTOPRAZOLE 40MG TAB (PROTONIX) PO SCH ×2 (08:29→21:43)
[2020-09-21] MEDS: POTASSIUM CHLORIDE 10 MEQ SR TABLET PO SCH ×2 (08:30→21:42)
[2020-09-21] MEDS: SPIRONOLACTONE 25 MG TAB PO SCH ×2 (08:30→21:43)
[2020-09-21] MEDS: **NOTE PATIENT COMMENT** MISC XX SCH (08:31)
[2020-09-21] MEDS: NORCO, ANEXSIA 5/325MG TABLET (HYDROcodone/ACETAMINOPHEN) PO PRN ×3 (08:41→22:58)
[2020-09-21 08:51] LABS: MAGNESIUM LEVEL 0.9 MG/DL (1.8-2.4)
[2020-09-21] MEDS ORDERED: MAG SULF 1GM/100ML (MAG RUN) 1 GM in IV 1 EA IV ONE (09:15)
--- NOTE | 2020-09-21 10:38 | IPN ---
DATE: 09/18/2020 Ms. Ngo is seen this morning on her bedside. She is feeling better and reports good urine output with intravenous (IV) Lasix. Her dyspnea has improved; however, she still has significant peripheral edema. She denies any nausea or vomiting. Yesterday she was almost 2 liters in negative fluid balance. PHYSICAL EXAMINATION: Temperature 98 degrees Fahrenheit, heart rate 88 per minute, and respiratory rate 18 per minute. Blood pressure 103/54 mm of mercury, and oxygen saturation 93% on room air. Head is atraumatic. Neck is supple and jugular venous distention (JVD) is not abnormally elevated. Right internal jugular vein Perm-A-Cath just removed, and dressing is intact without any bleeding. Heart sounds are regular and lungs with bilateral rales. Abdomen obese, soft, and, nontender, and bowel sounds are present. Extremities without any cyanosis or clubbing. Lower extremity edema is extending up to her waist and significant. Neurologically, she is awake, alert, and oriented times three. Today's labs show WBC count 3.8, hemoglobin 9.4, and hematocrit 28.7, platelets 114. Sodium 136, potassium 3.3, CO2 of 29, BUN 23, and creatinine 1.41. Glucose 142 and calcium 8.7. PROBLEMS: 1. Acute renal failure. Patient is nonoliguric with good urine output and kidney function slightly improved. No need for dialysis, and last dialysis was performed on September 12. We have already removed her Perm-A-Cath today. 2. Hypokalemia. This is related to high-dose diuretic use, and patient is being started on oral potassium chloride 20 mEq three times a day. Her electrolytes will be checked again tomorrow. 3. Congestive heart failure/ hypervolemia. Volume status still decompensated, but she is responding to diuretic. We are giving her Lasix every 8 hours, and she is responding well. We will continue with the current diuretic for now and monitor her urine output closely. 4. Anemia. Her anemia has been stable and does not need any intervention at present. 5. Hepatic encephalopathy. She has been doing very well with no symptoms and remains on oral lactulose. 6. Generalized weakness and deconditioning. Patient is still very weak and has difficulty ambulating due to significant leg edema and muscle weakness. We are trying aggressively to correct her volume status. She will continue with rehabilitation. [facility]
--- NOTE | 2020-09-21 10:41 | IPN ---
DATE: 09/19/2020 SUBJECTIVE: The patient was seen and examined at the bedside today morning. She is afebrile, hemodynamically stable. She continues to be on high dose diuretics. Her creatinine is stable and improving. She has a good urine output but still reports significant edema in the bilateral lower extremities. Blood pressure is controlled with Midodrine. And blood pressures are actually improving ever since she was downgraded out of ICU and her Midodrine requirement is decreasing day by day and it is being held according to the blood pressure parameters. OBJECTIVE: VITAL SIGNS: Temperature is 97.3 degrees Fahrenheit, blood pressure 131/60, pulse is 86, respiratory rate of 16, saturating 92% on room air. Intake and Output urine output recorded was 2.3 liters yesterday and it is 2.3 liters so far today since overnight as well. Weight on the bed scale is 103.6 kg which is about 1 kg below her weight yesterday. PHYSICAL EXAMINATION: GENERAL APPEARANCE: The patient is awake, alert, oriented x3, laying in bed, morbidly obese. HEAD AND NECK: Extraocular muscles intact. Pupils are equally round and reactive to light. Mucous membranes are moist. Neck is supple. There is mildly elevated jugular venous distention. CARDIOVASCULAR: S1, S2, regular rate. EXTREMITIES: 2+ edema of the bilateral lower extremities and 3+ edema in the thighs. RESPIRATORY: Mildly decreased breath sounds at the bases, otherwise no active rales or rhonchi. ABDOMEN: Soft, obese, positive bowel sounds. Abdominal wall edema was noted. MUSCULOSKELETAL: Significant edema in the lower extremities starting from ankles all the way up to her thighs. C&S: No focal deficits. Power is 5/5 in all extremities. LAB REVIEW: CBC showed a WBC of 3.8, hemoglobin 9.3, platelets of 124. BMP showed sodium 138, potassium 3.7, chloride 102, bicarbonate 32, BUN 24, creatinine is 1.3, calcium is 8.6. IMAGING: No new imaging is available at this time. CURRENT INPATIENT MEDICATIONS: The patients medications were all reviewed by myself. She continues to be on Lasix 100 mg IV q. 8 hourly. She is no longer getting Aranesp and Venofer because she is not on dialysis. I have stopped these medications. She was also getting Midodrine with holding parameters, but since her blood pressures are better, she is not requiring Midodrine, so I have stopped all the Midodrine orders. I also gave her a dose of Metolazone 2.5 mg p.o. times one dose, and I started the patient on Spironolactone 25 mg p.o. daily. One dose was given today. ASSESSMENT AND PLAN: 1. Acute renal failure the patient's renal failure has been improving. She is no longer requiring dialysis. Tunneled dialysis catheter has been removed. She is tolerating the diuretics. 2. Generalized anasarca - The patient is on Lasix 100 mg IV q. 8 hourly. I have added Metolazone for sequential nephron samir and because of hypokalemia, she has been started on Spironolactone as well. 3. Hypokalemia it is secondary to aggressive diuresis. The patient was given a dose of potassium chloride 20 mEq in the morning and she is already on a 20 mEq three times a day dose. I have added Spironolactone to the regimen as well. 4. CAMPBELL liver cirrhosis and generalized anasarca as mentioned above, Spironolactone has been added to the regimen because of cirrhosis. She continues to be on Lactulose for prevention of hepatic encephalopathy. 5. Anemia - The patient is not getting Venofer or Aranesp because she is not on dialysis anymore. Hemoglobin level is staying stable above 9. If it drops further, I would start the patient on weekly subcutaneous Aranesp injections. 6. Hypotension it has improved now. The patient is not getting Midodrine. Midodrine orders have been stopped now. MTDD
--- NOTE | 2020-09-21 10:44 | IPN ---
DATE: 09/20/2020 SUBJECTIVE: The patient was seen and examined at the bedside today morning. She was given additional dose of Metolazone and Spironolactone yesterday. Her urine output is better today since yesterday. Renal function is stable and creatinine is actually down to 1.2 today. She still reports persistent edema which is slowly improving with diuresis. OBJECTIVE: VITAL SIGNS: Temperature is 96.9 degrees Fahrenheit, blood pressure 144/65, pulse is 80, respiratory rate of 18, saturating 93% on room air. Intake and output Urine output recorded as 3 liters yesterday, 1.8 liters so far today since overnight. Weight on the bed scale is 101 kg which is 2 kg below her rate yesterday. PHYSICAL EXAMINATION: GENERAL APPEARANCE: The patient is awake, alert, oriented x3, morbidly obese, laying in bed in no apparent distress. HEAD AND NECK: Extraocular muscles intact. Pupils are equally round and reactive to light. Mucous membranes are moist. Neck is supple. There is no jugular venous distention. CARDIOVASCULAR: S1, S2, regular rate. EXTREMITIES: 2+ edema of the legs and 3+ edema of the thighs. RESPIRATORY: Mildly decreased breath sounds at the bases. ABDOMEN: Soft, obese, positive bowel sounds. Abdominal wall edema is noted. GENITOURINARY: There is no Teixeira catheter at this time. MUSCULOSKELETAL: No clubbing, no cyanosis. Significant edema of the extremities as mentioned above. WATER POLLUTION SPECIALIST: No focal deficits. Power is 5/5 in all extremities. LAB REVIEW: CBC showed a WBC of 3.4, hemoglobin 9.3, platelets of 143. BMP showed sodium of 141, potassium 3.5, chloride 103, bicarbonate 33, BUN 24, creatinine was 1.2, it was 1.3 yesterday. Calcium 8.3. CURRENT INPATIENT MEDICATIONS: The patient's medications were all reviewed by myself. I have increased her Spironolactone dose to 25 mg p.o. twice a day. She was given an additional dose of Metolazone 2.5 mg by myself. She continues to be on Lasix 100 mg IV q. 8 hourly. She is no longer on Midodrine. No other significant change in her medications today as compared with yesterday. ASSESSMENT AND PLAN: 1. Acute renal failure it has resolved now. However, anasarca still needs to be treated. The patient is responding to high dose diuretics. Continue current dose of Lasix at this time. 2. Generalized anasarca and liver cirrhosis - continue Lasix 100 mg q. 8 hourly, continue Metolazone p.r.n. for sequential nephron blockade and Spironolactone dose has been increased to 25 mg p.o. twice a day. 3. Anemia in acute renal failure - hemoglobin is staying stable, above 9. If it drops below 9 then Aranesp will be started. 4. Liver cirrhosis - The patient is still getting Lactulose twice a day. She is having about 3-4 bowel movements a day. I am going to reduce her Lactulose dose to once a day. Rifaximin has been stopped now. MTDD
[2020-09-21] MEDS: MAGNESIUM OXIDE 400 MG TAB (MAG-OX) PO SCH ×2 (10:59→21:43)
[2020-09-21] MEDS ORDERED: metOLazone 2.5 MG TAB PO ONE (13:00)
[2020-09-21 14:00] VITALS: BP 126/98
--- NOTE | 2020-09-21 14:51 | IPN ---
DATE: 09/21/2020 SUBJECTIVE: The patient was seen and examined at the bedside today morning. She is afebrile, hemodynamically stable. She is tolerating a higher dose of diuretics. She has a good renal output. Renal function is stable despite excessive diuretics. Weight is decreasing and leg edema is getting better. OBJECTIVE: VITAL SIGNS: Temperature is 99.3 degrees Fahrenheit, blood pressure 122/58, pulse is 93, respiratory rate is 20, saturating 91% on room air. Intake and output: Urine output recorded as 2.l liters yesterday, 1800 mL so far today overnight, weight on the bed scale is 99 kg. GENERAL APPEARANCE: The patient is alert, awake, alert and oriented x3, laying in bed in no apparent distress. HEAD AND NECK: Extraocular muscles intact. Pupils equally round and reactive to light. Mucous membranes are moist. Neck is supple. There is no JVD. CARDIOVASCULAR: S1 and S2, regular rate, there is 2+ edema of the bilateral lower extremities. RESPIRATORY: Chest is clear to auscultation bilaterally. Bilaterally equal air entry. No rales or rhonchi. ABDOMEN: Soft, positive abdominal wall edema which is slowly getting better. MUSCULOSKELETAL: Edema in the lower extremities as mentioned above. PARKING METER ATTENDANT: No focal deficit. Power is 5/5 in all extremities. LABORATORY DATA: CBC showed a WBC of 3.8, hemoglobin 9.3, platelets of 158,000. BMP showed a sodium of 141, potassium 4.3, chloride 102, bicarbonate 34, BUN 25, creatinine is 1.2. Calcium is 8.8, magnesium is 0.9. CURRENT INPATIENT MEDICATIONS: The patients medications were all reviewed by myself. Patient has been started on Magnesium Oxide 400 mg p.o. twice a day. She was also given Mag Sulfate 1 gram IV in the morning. I have stopped her IV Lasix. I have started the patient on torsemide 50 mg p.o. twice a day. I ordered another dose of metolazone 2.5 mg p.o. to be given today morning. ASSESSMENT AND PLAN: 1. Generalized anasarca and liver cirrhosis. Patients IV Lasix has been stopped. She will be continued on torsemide 50 mg p.o. twice a day, continue spironolactone, metolazone another dose was ordered today. 2. Hypokalemia, it is resolved now, potassium is actually going up after spironolactone was added. Continue spironolactone 25 mg p.o. twice a day, potassium dose has been decreased to 20 mEq p.o. twice a day. 3. Hypomagnesemia, patient was started on oral magnesium, she was also given Mag Sulfate 1 gram IV. 4. Liver cirrhosis. She continues to be on Lactulose 30 mL p.o. daily. No signs of hepatic encephalopathy at this time. MTDD
[2020-09-21] MEDS: TORSEMIDE 100 MG TAB PO SCH (16:38)
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
[2020-09-21] MEDS: LIDOCAINE 5% (LIDODERM) PATCH TD SCH (21:42)
[2020-09-21] MEDS: RAMELTEON 8 MG TAB (ROZEREM) PO PRN (21:42)
[2020-09-21 22:00] VITALS: BP 110/50
[2020-09-22] MEDS: LEVALBUTEROL 1.25 MG/0.5 ML CONCENTRATE NEB NEB SCH ×4 (02:43→19:54)
[2020-09-22] MEDS: LEVOTHYROXINE 25MCG TABLET (0.025MG) PO SCH (05:01)
[2020-09-22] MEDS: NORCO, ANEXSIA 5/325MG TABLET (HYDROcodone/ACETAMINOPHEN) PO PRN (05:02)
[2020-09-22] MEDS: SODIUM CHLORIDE 0.9% INJ 10 ML SYR IV SCH ×2 (05:02→17:38)
[2020-09-22 05:43] LABS: HEMATOCRIT 28.2 % (36.0-47.0); HEMOGLOBIN 8.9 g/dl (12.0-15.5); MEAN CORPUSCULAR HEMOGLOBIN 29.8 pg (27.0-33.0); MEAN CORPUSCULAR HGB CONC 31.6 g/dl (32.0-36.5); MEAN CORPUSCULAR VOLUME 94.3 fl (80.0-96.0); PLATELET COUNT, AUTOMATED 160 10^3/uL (150-450); RED BLOOD COUNT 2.99 10^6/uL (4.00-5.40); WHITE BLOOD COUNT 4.1 10^3/uL (4.0-10.0)
[2020-09-22 06:00] VITALS: BP 95/43
[2020-09-22 06:13] LABS: ALBUMIN 2.7 GM/DL (3.2-5.2); BILIRUBIN,TOTAL 1.1 MG/DL (0.2-1.0); CALCIUM LEVEL 8.4 MG/DL (8.8-10.2); CREATININE FOR GFR 1.33 MG/DL (0.55-1.30); GLOMERULAR FILTRATION RATE 42.9 (>45); MAGNESIUM LEVEL 1.1 MG/DL (1.8-2.4); POTASSIUM SERUM 4.2 MEQ/L (3.5-5.1); TOTAL PROTEIN 5.9 GM/DL (6.4-8.2)
[2020-09-22] MEDS: POTASSIUM CHLORIDE 10 MEQ SR TABLET PO SCH ×2 (08:18→21:44)
[2020-09-22] MEDS: GABAPENTIN 300 MG CAP PO SCH ×3 (08:19→21:44)
[2020-09-22] MEDS: LACTULOSE 20 GM/30 ML SYRUP UD PO SCH (08:19)
[2020-09-22] MEDS: MAGNESIUM OXIDE 400 MG TAB (MAG-OX) PO SCH ×2 (08:19→21:45)
[2020-09-22] MEDS: SPIRONOLACTONE 25 MG TAB PO SCH ×2 (08:19→21:44)
[2020-09-22] MEDS: TORSEMIDE 100 MG TAB PO SCH ×2 (08:19→17:38)
[2020-09-22] MEDS: PANTOPRAZOLE 40MG TAB (PROTONIX) PO SCH ×2 (08:19→21:44)
[2020-09-22] MEDS: MAG SULF 1GM/100ML (MAG RUN) 1 GM in IV 1 EA IV SCH ×2 (08:20→11:09)
[2020-09-22] MEDS: HumaLOG INSULIN (NovoLOG) PER UNIT SC SCH ×4 (08:20→21:00)
[2020-09-22] MEDS: **NOTE PATIENT COMMENT** MISC XX SCH (08:20)
[2020-09-22 12:10] LABS: PERCENT SATURATION 20.1 % (13.2-45.0)
[2020-09-22 14:00] VITALS: BP 104/51
[2020-09-22] MEDS ORDERED: NORCO, ANEXSIA 5/325MG TABLET (HYDROcodone/ACETAMINOPHEN) PO ONE (18:15)
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
[2020-09-22] MEDS: CAPSAICIN 0.025% CR 60 GM TOP SCH (21:43)
[2020-09-22] MEDS: LIDOCAINE 5% (LIDODERM) PATCH TD SCH (21:44)
[2020-09-22] MEDS: RAMELTEON 8 MG TAB (ROZEREM) PO PRN (21:44)
[2020-09-22 22:00] VITALS: BP 104/52
[2020-09-23] MEDS: LEVALBUTEROL 1.25 MG/0.5 ML CONCENTRATE NEB NEB SCH ×4 (02:41→20:06)
[2020-09-23] MEDS ORDERED: traMADol 50 MG TAB PO ONE ×3 (02:45→18:15)
[2020-09-23 05:43] VITALS: BP 128/58
[2020-09-23] MEDS: SODIUM CHLORIDE 0.9% INJ 10 ML SYR IV SCH ×2 (06:12→17:46)
[2020-09-23] MEDS: LEVOTHYROXINE 25MCG TABLET (0.025MG) PO SCH (06:12)
--- NOTE | 2020-09-23 08:20 | IPN ---
DATE: 09/22/2020 SUBJECTIVE: The patient was seen and examined at the bedside today morning. She was switched from IV to oral diuretics yesterday. She is still responding well to the oral diuretics as well. She is making a good amount of urine, edema is improving. Her renal function is stable. Creatinine has bumped up from 1.2 to 1.3. She denies any active complaints at this time. OBJECTIVE: VITAL SIGNS: Temperature is 98.7 degrees Fahrenheit, blood pressure is 95/43, pulse is 87, respiratory rate of 18, saturating 91% on room air. Intake and output: Urine output recorded as 2.6 liters yesterday, 1300 mL so far today since overnight, weight on the bed scale was 99 kg yesterday. GENERAL APPEARANCE: The patient is alert, awake, alert and oriented x3, laying in bed in no apparent distress. HEAD AND NECK: Extraocular muscles intact. Pupils equally round and reactive to light. Mucous membranes are moist. Neck is supple. There is no JVD. CARDIOVASCULAR: S1 and S2, regular rate, there is 2+ edema of the bilateral lower extremities. RESPIRATORY: Chest is clear to auscultation bilaterally. Bilateral equal air entry. No rales or rhonchi. ABDOMEN: Soft, obese, positive bowel sounds, abdominal wall edema was noted. MUSCULOSKELETAL: She has edema 2+ of bilateral lower extremities starting from ankles all the way up to the thighs. COLLECTION SYSTEMS MODELER: No focal deficit. Power is 5/5 in all extremities. LABORATORY DATA: CBC showed a WBC of 4.1, hemoglobin 8.9, platelets of 160,000. BMP done today morning showed sodium of 137, potassium 4.2, chloride 98, bicarbonate 35, BUN 25, creatinine is 1.3, it was 1.29 yesterday. Calcium 8.4. Magnesium is 1.1. Total bilirubin is 1.1. AST 46, ALT 40. Alkaline phosphatase is 222. Albumin is 2.7. CURRENT INPATIENT MEDICATIONS: The patients medications were all reviewed by myself. She is currently on torsemide 50 mg p.o. twice a day, spironolactone 25 mg p.o. twice a day, she is also on potassium 20 mEq p.o. twice a day. No other significant change in her medications today as compared with yesterday. I have stopped the Tylenol today because of elevated LFTs. ASSESSMENT AND PLAN: 1. Chronic kidney disease Stage III. Patient had acute renal failure which is resolved now. Creatinine has been staying stable at around 1.2 to 1.3, okay to continue current dose of diuretics. 2. Generalized anasarca. Continue torsemide 50 mg p.o. twice a day, spironolactone 25 mg p.o. twice a day along with potassium 20 mEq p.o. twice a day. The rest of the diuretic regimen adjustment will be done as an outpatient. 3. Anemia. Patient has iron deficiency and she was given blood during this hospitalization. I am going to repeat the iron levels again. If iron levels are now, she will be given IV iron. No need of Aranesp administration at this time. 4. Hypomagnesemia, the patient was already given IV Mag. I have increased the oral magnesium oxide dose to 800 mg p.o. twice a day. 5. Elevated liver enzymes. I have stopped the Tylenol dose which can make hepatitis worse. She already has a history of CAMPBELL cirrhosis. 6. Disposition. Patient is optimized from a Nephrology standpoint to be discharged home if she is cleared from Physical Therapy. She will need to follow-up with Nephrology within one week after discharge from the hospital. BRIAN
[2020-09-23] MEDS: LACTULOSE 20 GM/30 ML SYRUP UD PO SCH (08:26)
[2020-09-23] MEDS: SPIRONOLACTONE 25 MG TAB PO SCH ×2 (08:27→20:35)
[2020-09-23] MEDS: PANTOPRAZOLE 40MG TAB (PROTONIX) PO SCH ×2 (08:27→20:36)
[2020-09-23] MEDS: POTASSIUM CHLORIDE 10 MEQ SR TABLET PO SCH ×2 (08:27→20:35)
[2020-09-23] MEDS: GABAPENTIN 300 MG CAP PO SCH ×3 (08:27→20:36)
[2020-09-23] MEDS: MAGNESIUM OXIDE 400 MG TAB (MAG-OX) PO SCH ×2 (08:27→20:35)
[2020-09-23] MEDS: TORSEMIDE 100 MG TAB PO SCH ×2 (08:28→17:45)
[2020-09-23] MEDS: CAPSAICIN 0.025% CR 60 GM TOP SCH ×2 (08:28→20:36)
[2020-09-23] MEDS: HumaLOG INSULIN (NovoLOG) PER UNIT SC SCH ×4 (08:28→21:00)
[2020-09-23] MEDS: **NOTE PATIENT COMMENT** MISC XX SCH (08:29)
[2020-09-23 09:08] LABS: BASO # 0.1 10^3/uL (0.0-0.2); BASO % 1.2 % (0.0-1.0); EOS # 0.2 10^3/uL (0.0-0.5); EOS % 4.6 % (0.0-3.0); HEMATOCRIT 30.3 % (36.0-47.0); HEMOGLOBIN 9.8 g/dl (12.0-15.5); LYMPH # 1.1 10^3/uL (1.5-5.0); LYMPH % 21.2 % (24.0-44.0); MEAN CORPUSCULAR HEMOGLOBIN 30.2 pg (27.0-33.0); MEAN CORPUSCULAR HGB CONC 32.3 g/dl (32.0-36.5); MEAN CORPUSCULAR VOLUME 93.5 fl (80.0-96.0); MONO # 0.8 10^3/uL (0.0-0.8); MONO % 15.6 % (0.0-5.0); NEUTROPHILS # 2.9 10^3/uL (1.5-8.5); NEUTROPHILS % 57.2 % (36.0-66.0); PLATELET COUNT, AUTOMATED 164 10^3/uL (150-450); RED BLOOD COUNT 3.24 10^6/uL (4.00-5.40)
[2020-09-23 09:14] LABS: ALBUMIN 2.8 GM/DL (3.2-5.2); BILIRUBIN,TOTAL 1.8 MG/DL (0.2-1.0); CALCIUM LEVEL 8.7 MG/DL (8.8-10.2); CREATININE FOR GFR 1.38 MG/DL (0.55-1.30); GLOMERULAR FILTRATION RATE 41.1 (>45); MAGNESIUM LEVEL 1.5 MG/DL (1.8-2.4); POTASSIUM SERUM 4.3 MEQ/L (3.5-5.1); TOTAL PROTEIN 6.9 GM/DL (6.4-8.2)
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
[2020-09-23] MEDS: FERROUS GLUCONATE 324 MG TAB PO SCH (10:38)
[2020-09-23] MEDS: MAG SULF 1GM/100ML (MAG RUN) 1 GM in IV 1 EA IV SCH ×2 (10:39→11:35)
[2020-09-23 14:00] VITALS: BP 114/56
--- NOTE | 2020-09-23 17:01 | REP ---
INDICATION: pain,swelling, r/o DVT. COMPARISON: 11/19/2015 TECHNIQUE: Multiple ultrasonographic images of the deep venous structures of the bilateral thighs were obtained from the level of the common femoral vein to the popliteal vein in the longitudinal and transverse scan planes along with Doppler interrogation and color flow Doppler imaging. FINDINGS: There is no abnormal echogenic material seen within any of the visualized deep venous structures that would suggest acute thrombosis. Coaptation is unremarkable throughout. Doppler interrogation shows an expected response to respiratory variability and augmentation. The color flow Doppler images show what appears to be a normal vascular pattern throughout. IMPRESSION: There is no ultrasonographic evidence of deep venous thrombosis involving any of the visualized deep venous structures of the bilateral thighs as described above. Accredited by the [employer] in Vascular Peripheral Ultrasound. <Electronically signed by Topher Spear > 09/23/20 [id number]
[2020-09-23] MEDS: LIDOCAINE 5% (LIDODERM) PATCH TD SCH (20:34)
[2020-09-23] MEDS: DOXYCYCLINE HYCLATE 100MG TABLET PO SCH (20:35)
[2020-09-23] MEDS: AMOXICILLIN 875 MG TAB PO SCH (20:35)
[2020-09-23 22:00] VITALS: BP 119/62
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
[2020-09-24] MEDS: LEVALBUTEROL 1.25 MG/0.5 ML CONCENTRATE NEB NEB SCH ×2 (02:47→08:31)
[2020-09-24] MEDS: SODIUM CHLORIDE 0.9% INJ 10 ML SYR IV SCH (05:28)
[2020-09-24] MEDS: LEVOTHYROXINE 25MCG TABLET (0.025MG) PO SCH (05:28)
[2020-09-24] MEDS ORDERED: traMADol 50 MG TAB PO ONE (05:45)
[2020-09-24 06:00] VITALS: BP 126/70
[2020-09-24] MEDS: HumaLOG INSULIN (NovoLOG) PER UNIT SC SCH ×2 (07:30→12:30)
[2020-09-24] MEDS: TORSEMIDE 100 MG TAB PO SCH (08:58)
[2020-09-24] MEDS: MAGNESIUM OXIDE 400 MG TAB (MAG-OX) PO SCH (08:58)
[2020-09-24] MEDS: PANTOPRAZOLE 40MG TAB (PROTONIX) PO SCH (08:58)
[2020-09-24] MEDS: AMOXICILLIN 875 MG TAB PO SCH (08:59)
[2020-09-24] MEDS: GABAPENTIN 300 MG CAP PO SCH (08:59)
[2020-09-24] MEDS: DOXYCYCLINE HYCLATE 100MG TABLET PO SCH (08:59)
[2020-09-24] MEDS: FERROUS GLUCONATE 324 MG TAB PO SCH (08:59)
[2020-09-24] MEDS: POTASSIUM CHLORIDE 10 MEQ SR TABLET PO SCH (09:00)
[2020-09-24] MEDS: LACTULOSE 20 GM/30 ML SYRUP UD PO SCH (09:00)
[2020-09-24] MEDS: SPIRONOLACTONE 25 MG TAB PO SCH (09:00)
[2020-09-24] MEDS: CAPSAICIN 0.025% CR 60 GM TOP SCH (09:02)
[2020-09-24] MEDS: **NOTE PATIENT COMMENT** MISC XX SCH (09:30)
[2020-09-24] MEDS ORDERED: MAG400TA PO (10:18)
[2020-09-24] MEDS ORDERED: KLOR10TA76 PO (10:18)
[2020-09-24] MEDS ORDERED: VENTAER INH (10:18)
[2020-09-24] MEDS ORDERED: DOXY100T PO ×2 (10:18→10:47)
[2020-09-24] MEDS ORDERED: AMOX875T PO (10:18)
[2020-09-24] MEDS ORDERED: PANT40TA29 PO (10:18)
[2020-09-24] MEDS ORDERED: LEVO25TA5 PO (10:18)
[2020-09-24] MEDS ORDERED: FERR32TA PO (10:18)
[2020-09-24] MEDS ORDERED: ALDA25TA2 PO (10:18)
[2020-09-24] MEDS ORDERED: TORS100T PO (10:18)
[2020-09-24] MEDS ORDERED: GABA-843 PO ×2 (10:18→10:51)
[2020-09-24] MEDS ORDERED: COMBAER6 INH (10:18)
[2020-09-24] MEDS ORDERED: TRAM50TA2 PO (10:20)
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
[2020-09-24] MEDS ORDERED: LEVO500T3 PO (10:47)
[2020-09-24] MEDS ORDERED: LACT20EL PO (10:49)
[2020-09-24 11:39] LABS: BASO # 0.1 10^3/uL (0.0-0.2); BASO % 1.1 % (0.0-1.0); EOS # 0.3 10^3/uL (0.0-0.5); EOS % 4.6 % (0.0-3.0); HEMATOCRIT 32.7 % (36.0-47.0); HEMOGLOBIN 10.5 g/dl (12.0-15.5); LYMPH # 1.2 10^3/uL (1.5-5.0); LYMPH % 21.9 % (24.0-44.0); MEAN CORPUSCULAR HEMOGLOBIN 30.4 pg (27.0-33.0); MEAN CORPUSCULAR HGB CONC 32.1 g/dl (32.0-36.5); MEAN CORPUSCULAR VOLUME 94.8 fl (80.0-96.0); MONO # 0.8 10^3/uL (0.0-0.8); MONO % 15.3 % (0.0-5.0); NEUTROPHILS # 3.1 10^3/uL (1.5-8.5); NEUTROPHILS % 56.9 % (36.0-66.0); PLATELET COUNT, AUTOMATED 209 10^3/uL (150-450); RED BLOOD COUNT 3.45 10^6/uL (4.00-5.40); WHITE BLOOD COUNT 5.4 10^3/uL (4.0-10.0)
[2020-09-24 12:18] LABS: ALBUMIN 3.1 GM/DL (3.2-5.2); CALCIUM LEVEL 9.1 MG/DL (8.8-10.2); CREATININE FOR GFR 1.49 MG/DL (0.55-1.30); GLOMERULAR FILTRATION RATE 37.6 (>45); MAGNESIUM LEVEL 1.7 MG/DL (1.8-2.4); POTASSIUM SERUM 4.3 MEQ/L (3.5-5.1); TOTAL PROTEIN 7.2 GM/DL (6.4-8.2)
--- NOTE | 2020-09-24 13:35 | IPN ---
NEPHROLOGY PROGRESS NOTE DATE: 09/23/2020 SUBJECTIVE: The patient was seen and examined at the bedside today morning. She reports that she had chills last night. Otherwise she denies any fevers. She continues to be on oral diuretics. She made more than 4 liters of urine yesterday. Renal function is stable with a creatinine of 1.3. OBJECTIVE: VITAL SIGNS: Temperature is 98.4 degrees Fahrenheit, blood pressure is 114/56, pulse is 83, respiratory rate of 18, saturating 93% on room air. Intake and output urine output recorded as 4.1 liters yesterday and 1,600 mL so far by the time I saw her. Weight on the bed scale is not available. PHYSICAL EXAMINATION: GENERAL APPEARANCE: The patient is awake, alert, oriented x3, laying in the bed in no apparent distress. HEAD AND NECK: Extraocular muscles intact. Pupils are equally round and reactive to light. Mucous membranes are moist. Neck is supple. There is no significant jugular venous distention. CARDIOVASCULAR: S1, S2, regular rate. EXTREMITIES: 2+ edema on the bilateral lower extremities, all the way up to the thighs. RESPIRATORY: Chest is clear to auscultation bilaterally. Bilaterally currently no rales or rhonchi. ABDOMEN: Soft, obese, positive bowel sounds, abdominal wall edema especially in the lower abdomen. GENITOURINARY: Bladder is not palpable. MUSCULOSKELETAL: 2+ edema of the extremities, all the way up to the thighs and legs are tender to deep palpation. ARCHIVES SPECIALIST: No focal deficits. Power is 5/5 in all extremities. LAB REVIEW: CBC showed a WBC of 5, hemoglobin 9.8, platelets are 164. BMP showed sodium 135, potassium 4.3, chloride 94, bicarbonate 34, BUN 24, creatinine is 1.8; it was 1.33 yesterday. Calcium is 8.7, magnesium is 1.5. Total bilirubin 1.8, AST is 50, ALT is 12, alkaline phosphatase is 205. IMAGING: Doppler of the lower extremity was done. There is no evidence of DVT. CURRENT INPATIENT MEDICATIONS: The patient's medications were all reviewed by myself. She has been started on Amoxicillin 875 mg p.o. twice a day, Doxycycline 100 mg p.o. twice a day. No other significant change in her medications today as compared with yesterday. ASSESSMENT AND PLAN: 1. Chronic kidney disease stage - The patient had acute renal failure requiring dialysis during this admission. Now her renal function has improved to CKD3. Creatinine has been fluctuating at around 1.3. Okay to continue high dose diuretics because of anasarca. 2. Anasarca - The patient is responding well to the oral regimen of Spironolactone and Torsemide. She still has persistent edema but she is negative daily more than one liter everyday. Continue current diuretics regimen. 3. Iron deficiency anemia - because of recent chills, I would avoid giving her IV iron. She has been started on oral iron. Hemoglobin level is stable and improving. 4. Hypomagnesemia - The patient was given IV magnesium. Her oral magnesium has also been increased. 5. Liver cirrhosis and anasarca - continue diuretics as mentioned above. Albumin level is improving. Continue current dose of Lactulose. MTDD
--- NOTE | 2020-09-25 07:37 | IPN ---
DATE: 09/24/2020 SUBJECTIVE: Patient was seen and examined at the bedside today morning. She is afebrile and hemodynamically stable. She is diuresing very well. Edema is improving. She was started on oral antibiotics for pain and redness in the lower extremities. She reports pain is getting better. Patient also told me that she is getting ready to be discharged today. OBJECTIVE: VITAL SIGNS: Temperature 98.5 degrees Fahrenheit, blood pressure 126/70, pulse 88, respiratory rate 17, saturating 92% on room air. INTAKE AND OUTPUT: Urine output recorded as 4.1 liters yesterday, 1.5 liters so far today since overnight. Weight in the bed scale is 94 kg. PHYSICAL EXAMINATION: GENERAL: Patient is awake, alert, oriented x3, laying in bed in no apparent distress. HEAD AND NECK: Extraocular muscles intact. Pupils equally round and reactive to light. Mucous membranes are moist. Neck is supple. No significant JVD. CARDIOVASCULAR: S1, S2, regular rate. 2+ edema of the bilateral lower extremities. RESPIRATORY: Chest is clear to auscultation bilaterally. Bilateral equal air entry. No rales or rhonchi. ABDOMEN: Soft, obese, positive bowel sounds. Abdominal wall edema was noted. MUSCULOSKELETAL: No clubbing or cyanosis. Pulses are 2+. WAREHOUSE TRAINER: No focal deficit. Power is 5/5 in all extremities. LABORATORY REVIEW: CBC showed WBC 5.4, hemoglobin 10.5, platelets 209,000. BMP pending today. CURRENT INPATIENT MEDICATIONS: The patient's medications were all reviewed by myself. She is currently on oral Doxycycline and Amoxicillin. No other significant change in the medications today. ASSESSMENT AND PLAN: 1. Chronic kidney disease stage 3: Patient's renal function is stable, she is tolerating the diuretics. She can be discharged home on the current diuretic regimen. 2. Anasarca: It is getting better, continue current dose of Torsemide 50 mg p.o. twice a day and Spironolactone 25 mg p.o. twice a day along with potassium chloride 20 mEq p.o. two times a day. 3. Cirrhosis and recent hepatic encephalopathy: Patient is getting lactulose 30 mL p.o. daily, on discharge she should be getting p.r.n. lactulose to have at least one soft bowel movement a day. 4. Iron deficiency anemia: Continue p.o. iron at this time, hemoglobin level is stable and improving. DISPOSITION: Patient is okay to be discharged from a nephrology standpoint. She will need to follow-up with nephrology after discharge from the hospital. BRIAN
== END 2020-09-24 15:40 | disposition home or self-care (01) | DRG 199 ==
LOC: M ED 01:03 → ENRESERV 04:55 → M ED INP 04:55 → M ICU 05:15 → M PCU 09-13 12:04 → M MS5PR 09-20 20:19
PROVIDERS: ADMIT Thoracic Surgery (Cardiothoracic Vascular Surgery); ATTEND Family Medicine
PROC: 02HV33Z Insertion of Infusion Device into Superior Vena Cava, Percutaneous Approach (ICD-10-PCS; principal; 2020-08-21)
PROC: 30233N1 Transfusion of Nonautologous Red Blood Cells into Peripheral Vein, Percutaneous Approach (ICD-10-PCS; 2020-08-21)
PROC: 0W9B00Z Drainage of Left Pleural Cavity with Drainage Device, Open Approach (ICD-10-PCS; 2020-08-21)
PROC: 05HM33Z Insertion of Infusion Device into Right Internal Jugular Vein, Percutaneous Approach (ICD-10-PCS; 2020-08-22)
PROC: 5A1D90Z Performance of Urinary Filtration, Continuous, Greater than 18 hours Per Day (ICD-10-PCS; 2020-08-22)
PROC: 02HV33Z Insertion of Infusion Device into Superior Vena Cava, Percutaneous Approach (ICD-10-PCS; 2020-08-27)
PROC: 0W9B30Z Drainage of Left Pleural Cavity with Drainage Device, Percutaneous Approach (ICD-10-PCS; 2020-09-02)
PROC: 0JH63XZ Insertion of Tunneled Vascular Access Device into Chest Subcutaneous Tissue and Fascia, Percutaneous Approach (ICD-10-PCS; 2020-09-11)
PROC: 02HV33Z Insertion of Infusion Device into Superior Vena Cava, Percutaneous Approach (ICD-10-PCS; 2020-09-11)
PROC: 05PYX3Z Removal of Infusion Device from Upper Vein, External Approach (ICD-10-PCS; 2020-09-18)
DX: S27.1XXA Traumatic hemothorax, initial encounter (principal); N17.0 Acute kidney failure with tubular necrosis; K76.7 Hepatorenal syndrome; R65.21 Severe sepsis with septic shock; A41.9 Sepsis, unspecified organism; K72.00 Acute and subacute hepatic failure without coma; I50.33 Acute on chronic diastolic (congestive) heart failure; J18.9 Pneumonia, unspecified organism; I85.10 Secondary esophageal varices without bleeding; K76.6 Portal hypertension; D62 Acute posthemorrhagic anemia; Z68.41 Body mass index [BMI] 40.0-44.9, adult; K56.7 Ileus, unspecified; E46 Unspecified protein-calorie malnutrition; L03.115 Cellulitis of right lower limb; L03.116 Cellulitis of left lower limb; K70.31 Alcoholic cirrhosis of liver with ascites; S22.42XD Multiple fractures of ribs, left side, subsequent encounter for fracture with routine healing; V86.55XA Driver of 3- or 4- wheeled all-terrain vehicle (ATV) injured in nontraffic accident, initial encounter; Y93.89 Activity, other specified; Y92.89 Other specified places as the place of occurrence of the external cause; E11.40 Type 2 diabetes mellitus with diabetic neuropathy, unspecified; I11.0 Hypertensive heart disease with heart failure; E66.01 Morbid (severe) obesity due to excess calories; E86.0 Dehydration; E87.5 Hyperkalemia; M10.9 Gout, unspecified; M81.0 Age-related osteoporosis without current pathological fracture; E83.42 Hypomagnesemia; E03.9 Hypothyroidism, unspecified; D69.59 Other secondary thrombocytopenia; L40.50 Arthropathic psoriasis, unspecified; K21.9 Gastro-esophageal reflux disease without esophagitis; Z98.41 Cataract extraction status, right eye; Z98.42 Cataract extraction status, left eye; Z90.49 Acquired absence of other specified parts of digestive tract; Z79.4 Long term (current) use of insulin; Z79.899 Other long term (current) drug therapy; Z87.891 Personal history of nicotine dependence

== ENCOUNTER 2020-10-12 02:01 | Inpatient (IN) | payer OTHER ==
[~2020-10-12] VITALS: Ht 162.6 cm; Wt 85.1 kg
[~2020-10-12 02:01] MED LIST changes: +ALDA25TA2 PO; +AMOX875T PO; +DOXY100T PO; +FERR32TA PO; +KLOR10TA76 PO; +LACT20EL PO; +LEVO500T3 PO; +MAG400TA PO; +PANT40TA29 PO; +TORS100T PO; +VENTAER INH
[2020-10-12 02:31] LABS: BASO % 0.5 % (0.0-1.0); EOS # 0.3 10^3/uL (0.0-0.5); EOS % 3.2 % (0.0-3.0); HEMATOCRIT 39.8 % (36.0-47.0); HEMOGLOBIN 12.5 g/dl (12.0-15.5); LYMPH # 1.9 10^3/uL (1.5-5.0); LYMPH % 24.1 % (24.0-44.0); MEAN CORPUSCULAR HEMOGLOBIN 29.5 pg (27.0-33.0); MEAN CORPUSCULAR HGB CONC 31.4 g/dl (32.0-36.5); MEAN CORPUSCULAR VOLUME 93.9 fl (80.0-96.0); MONO # 1.2 10^3/uL (0.0-0.8); MONO % 14.7 % (0.0-5.0); NEUTROPHILS # 4.5 10^3/uL (1.5-8.5); NEUTROPHILS % 57.1 % (36.0-66.0); PLATELET COUNT, AUTOMATED 168 10^3/uL (150-450); RED BLOOD COUNT 4.24 10^6/uL (4.00-5.40); WHITE BLOOD COUNT 7.9 10^3/uL (4.0-10.0)
[2020-10-12 03:03] LABS: ALBUMIN 2.9 GM/DL (3.2-5.2); ALT/SGPT 8 U/L (12-78); BILIRUBIN,DIRECT 0.5 MG/DL (0.0-0.2); BILIRUBIN,TOTAL 1.3 MG/DL (0.2-1.0); BLOOD UREA NITROGEN 44 MG/DL (7-18); CALCIUM LEVEL 9.2 MG/DL (8.8-10.2); CARBON DIOXIDE LEVEL 32 MEQ/L (21-32); CHLORIDE LEVEL 99 MEQ/L (98-107); ETHYL ALCOHOL (ETHANOL) < 0.003 % (0.000-0.010); GLUCOSE, FASTING 165 MG/DL (70-100); POTASSIUM SERUM 4.1 MEQ/L (3.5-5.1); SODIUM LEVEL 138 MEQ/L (136-145); TOTAL PROTEIN 7.7 GM/DL (6.4-8.2)
--- NOTE | 2020-10-12 04:21 | ECGEPIP ---
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
[2020-10-12] MEDS ORDERED: NS 1,000 ML IV ONE ×3 (04:30→06:00)
[2020-10-12] MEDS ORDERED: LACTULOSE 20 GM/30 ML SYRUP UD PO ONE (04:30)
[2020-10-12] MEDS ORDERED: THIAMINE 200MG/2ML VIAL (J3411 PER 100MG) IV ONE (04:30)
--- NOTE | 2020-10-12 05:55 | REPVR ---
PROCEDURE INFORMATION: Exam: CT Head Without Contrast Exam date and time: 10/12/2020 5:36 AM Age: 65 years old Clinical indication: Pain; Headache; Additional info: AMS TECHNIQUE: Imaging protocol: Computed tomography of the head without contrast. Radiation optimization: All CT scans at this facility use at least one of these dose optimization techniques: automated exposure control; mA and/or kV adjustment per patient size (includes targeted exams where dose is matched to clinical indication); or iterative reconstruction. COMPARISON: CT Head without contrast 09/11/2020 3:00 AM FINDINGS: Brain: Nonspecific small punctate calcifications seen in the extra-axial space possibly dural or pial. Cerebral ventricles: No ventriculomegaly. Bones/joints: Unremarkable. No acute fracture. Paranasal sinuses: Visualized sinuses are unremarkable. No fluid levels. Mastoid air cells: Visualized mastoid air cells are well aerated. Soft tissues: Unremarkable. Other findings: There is suggestion of high riding dense. IMPRESSION: 1. No CT evidence of acute intracranial hemorrhage, mass effect or midline shift. 2. No large acute territorial infarct seen. 3. Nonspecific few scattered tiny extra-axial calcifications, unchanged since the prior exam. 4. Questionable basilar invagination. If clinically indicated dedicated CT or MRI may be obtained for further evaluation. Electronically signed by: Juan Tobin On 10/12/2020 05:55:48 AM
[2020-10-12 06:00] LABS: AMPHETAMINES LEVEL URINE NEGATIVE (NEGATIVE); BARBITURATES URINE NEGATIVE (NEGATIVE); BENZODIAZEPINES URINE NEGATIVE (NEGATIVE); CANNABINOIDS URINE NEGATIVE (NEGATIVE); COCAINE METABOLITE URINE NEGATIVE (NEGATIVE); METHADONE URINE NEGATIVE (NEGATIVE); OPIATES URINE NEGATIVE (NEGATIVE); PHENCYCLIDINE URINE NEGATIVE (NEGATIVE)
--- NOTE | 2020-10-12 06:10 | REPVR ---
PROCEDURE INFORMATION: Exam: XR Chest, 1 View Exam date and time: 10/12/2020 6:02 AM Age: 65 years old Clinical indication: Chest pain; Additional info: Altered mental status TECHNIQUE: Imaging protocol: XR of the chest Views: 1 view. COMPARISON: [place] PORTABLE CHEST X-RAY 09/14/2020 9:12 AM FINDINGS: Tubes, catheters and devices: There is interval removal of the right neck hemodialysis catheter. Lungs: Unremarkable. No consolidation. Pleural space: There is interval resolution of the left-sided pleural effusion. Heart/Mediastinum: Unremarkable. No cardiomegaly. Bones/joints: There are multiple left-sided rib fractures, seen on the prior exam. IMPRESSION: No acute focal lung consolidation. Electronically signed by: Juan Tobin On 10/12/2020 06:10:08 AM
[2020-10-12] MEDS ORDERED: ACETAMINOPHEN TAB 650MG DOSE (2X325MG) PO PRN (08:45)
[2020-10-12] MEDS: DOCUSATE SODIUM 100MG CAPSULE PO SCH ×2 (09:00→21:00)
--- NOTE | 2020-10-12 09:09 | HPEPDOC ---
[facility] Medical History & Physical Date of Admission Oct 12, 2020 Date of Service: Oct 12, 2020 History and Physical CHIEF COMPLAINT: ALTERED MENTAL STATUS HISTORY OF PRESENT ILLNESS: 65 yo F with an extensive medical history (listed below), including DM2, HTN, liver cirrhocis with hepatic encephalopathy, CKD, who was recently admitted with prolonged hospitalization in 08/2020 for ATN secondary to hypotension from traumatic hemothorax, complicated by hepatic encephalopathy. Patient returns to the ED in a confused and obtunded state. Much of history was obtained collaterally from her Dania. She reports patient gladis leigh well after discharge, followed up with Dr. Gleason and had been functional and mentally capable until the evening prior to admission. described patient stopping lactulose, as she had been having copious bowel movements. She also reports a recent fall on 10/09 which resulted in head injury agains the bathtub. Patient became acutely altered and was brought to the ED. she was found to have an ammonia level CXL. She was given 60 mL of lactulose as well as 100 mg of thiamine. She appeared clinically dry and examined and was given 1 L normal saline bolus. Vitals reviewed. , Blood pressure 147/74, pulse oximetry 91% room air, pulse of 92, temperature 96.6, respiratory 16. Labs reviewed. Hemoglobin 12.5. Hematocrit 39.8. Platelet count 168. Sodium 138, potassium 4.1, BG 144, creatinine 2.2, GFR 24. Bilirubin 1.3. Drug bilirubin 0.5, alkaline phosphatase 168. Albumin 2.9. Most concerning is ammonia level of 140. CT head wo contrast showing no acute hemorrhage or ischemia. CXR shows no acute pulmonary process. 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 Mother history of arthritis and A. fib and diabetes and COPD ALLERGIES: Please see below. REVIEW OF SYSTEMS: View of systems is limited as patient is confused and altered. She is able to deny chest pain, shortness of breath, fevers or chills. Monitor collateral history was obtained from her HOME MEDICATIONS: Please see below. PHYSICAL EXAMINATION: VITAL SIGNS: please see below General: Patient is confused, somnolent. Able to answer simple yes or no questions. Looks dry. HEENT: PERRLA, mildly dry mucous membranes Neck: supple, normal ROM, no JVD Respiratory: lungs CTAB, no wheeze, no rales, no crackles CVS: RRR, normal S1, S2, no murmurs Abdo: soft, no masses, no hepatosplenomegaly, BS+, no rebound tenderness Extremities: no edema, pulses 2+ MSK: no joint deformities, normal ROM Neuro: All 4 extremities. Pupils are reactive to light. Has asterixis/hepatic flap. Vision is unable to comply with a complete physical exam. Psych: calm, cooperative, AAO x person only LABORATORY DATA: See below. IMAGING: CT head wo contrast (10/12/20): FINDINGS: Brain: Nonspecific small punctate calcifications seen in the extra-axial space possibly dural or pial. Cerebral ventricles: No ventriculomegaly. Bones/joints: Unremarkable. No acute fracture. Paranasal sinuses: Visualized sinuses are unremarkable. No fluid levels. Mastoid air cells: Visualized mastoid air cells are well aerated. Soft tissues: Unremarkable. Other findings: There is suggestion of high riding dense. IMPRESSION: 1. No CT evidence of acute intracranial hemorrhage, mass effect or midline shift. 2. No large acute territorial infarct seen. 3. Nonspecific few scattered tiny extra-axial calcifications, unchanged since the prior exam. 4. Questionable basilar invagination. If clinically indicated dedicated CT or MRI may be obtained for further evaluation. CXR (10/12/20): FINDINGS: Tubes, catheters and devices: There is interval removal of the right neck hemodialysis catheter. Lungs: Unremarkable. No consolidation. Pleural space: There is interval resolution of the left-sided pleural effusion. Heart/Mediastinum: Unremarkable. No cardiomegaly. Bones/joints: There are multiple left-sided rib fractures, seen on the prior exam. IMPRESSION: No acute focal lung consolidation. MICROBIOLOGY: Please see below. ASSESSMENT: 65-year-old female with a history of sick daily, type 2 diabetes, liver cirrhosis from alcoholic about a steatosis with hepatic encephalopathy, presented to hospital acute confusion after he discontinued her lactulose approximately 3-4 days ago. Patient will be admitted to PCU for the management of acute hepatic encephalopathy as indicated by an elevated ammonia level and asterixis on physical examination. . PLAN: # Acute Hepatitic encephalopathy: ammonia 140. lactulose TID. Rifaximin. Neuro checks. Trend LFTs/Liver Enzymes. #Fall/head injury: CT head wo contrast no acute changes. Neuro checks. #AIDA on CKD 3: Cr 2.2, patient was discharged on 09/24/20 with Cr 1.4. Appears clinically volume depleted. Likely pre-renal. Check FeNa. Nephrology consult as patient is well known to service, recent hx ATN on CRRT. Monitor UOP. Teixeira placed. C/w IVF hydration. Hold diuretics (torsemide, spironolactone). #HTN: BP acceptable. Hold lisinopril given AIDA. #Dehydration: s/p 1L NS bolus. C/w NS 125 cc/hr. Monitor UOP. #T2DM/ neuropathy: ISS, FSBS AC and HS. Hypoglycemic precautions. hold gabapentin given encephalopathy # Morbid obesity: BMI 43.4. Complicating care # Psoriatic arthiritis: Tylenol, [place] prn. # Hyperlipidemia: statin. # Hx of gout: Allopurinol # Hypothyroidism: Synthroid # GERD: PPI daily. # Chronic back pain: tylenol prn. Use tramadol if pain worsens, judiciously. DVT ppx: TEDs, SCDs. Heparin 5000 units q12h SC. Vital Signs Vital Signs Date Time Temp Pulse Resp B/P (MAP) Pulse Ox O2 Delivery O2 Flow Rate FiO2 10/12/20 07:28 96.6 92 16 144/74 (97) 91 Room Air Laboratory Data Labs 24H Laboratory Tests 2 10/12/20 02:22: Immature Granulocyte % (Auto) 0.4, Neutrophils (%) (Auto) 57.1, Lymphocytes (%) (Auto) 24.1, Monocytes (%) (Auto) 14.7H, Eosinophils (%) (Auto) 3.2H, Basophils (%) (Auto) 0.5, Neutrophils # (Auto) 4.5, Lymphocytes # (Auto) 1.9, Monocytes # (Auto) 1.2H, Eosinophils # (Auto) 0.3, Basophils # (Auto) 0.0, Nucleated Red Blood Cells % (auto) 0.0, Urine Color YELLOW, Urine Appearance CLEAR, Urine pH 7.0, Urine Specific [place] 1.009, Urine Protein NEGATIVE, Urine Glucose (UA) NE GATIVE, Urine Ketones NEGATIVE, Urine Blood NEGATIVE, Urine Nitrite NEGATIVE, Urine Bilirubin NEGATIVE, Urine Urobilinogen 0.2, Urine Leukocyte Esterase NEGATIVE, Urine WBC (Auto) 0, Urine RBC (Auto) 0, Urine Hyaline Casts (Auto) 0, Urine Bacteria (Auto) NEGATIVE, Urine Squamous Epithelial Cells 0, Urine Sperm (Auto) , Anion Gap 7L, Glomerular Filtration Rate 24.0L, Calcium Level 9.2, Total Bilirubin 1.3H, Direct Bilirubin 0.5H, Aspartate Amino Transf (AST/SGOT) 35, Alanine Aminotransferase (ALT/SGPT) 8L, Alkaline Phosphatase 168H, Ammonia 140H, Total Protein 7.7, Albumin 2.9L, Albumin/Globulin Ratio 0.6L, Thyroid Stimulating Hormone (TSH) 1.230, Urine Opiates Screen NEGATIVE, Urine Methadone Screen NEGATIVE, Urine Barbiturates Screen NEGATIVE, Urine Phencyclidine Screen NEGATIVE, Urine Amphetamines Screen NEGATIVE, Urine Benzodiazepines Screen NEGATIVE, Urine Cocaine Metabolite Screen NEGATIVE, Urine Cannabinoids Screen NEGATIVE, Ethyl Alcohol Level < 0.003 10/12/20 04:24: Coronavirus (COVID-19)(PCR) NEGATIVE CBC/BMP Laboratory Tests 10/12/20 02:22 Home Medications Scheduled Allopurinol (Allopurinol) 100 Mg Tab, 100 MG PO QHS Cholecalciferol (Vitamin D3) (Vitamin D3) 1,000 Unit Tablet, 1,000 UNITS PO DAILY Ferrous Gluconate (Ferrous Gluconate) 324 Mg Tablet, 324 MG PO BID Gabapentin (Gabapentin) 300 Mg Capsule, 300 MG PO BID Insulin Human Lispro (Novolog) 100 U/Ml Inj, 1 DOSE SC BID PER SLIDING SCALE Lactulose (Lactulose) 10 Gm/15 Ml Solution, 30 ML PO TID for constipation Levothyroxine Sodium (Levothyroxine Sodium) 25 Mcg Tablet, 25 MCG PO DAILY Magnesium Oxide (Magnesium Oxide) 400 Mg Tablet, 800 MG PO BID Midodrine HCl (Midodrine HCl) 5 Mg Tablet, 5 MG PO BID Pantoprazole Sodium (Pantoprazole Sodium) 40 Mg Tablet.dr, 40 MG PO BID Potassium Chloride (Potassium Chloride) 10 Meq Tab.er.prt, 20 MEQ PO BID Spironolactone (Spironolactone) 25 Mg Tablet, 25 MG PO BID Torsemide (Torsemide) 100 Mg Tablet, 50 MG PO BID 0900/1700 Scheduled PRN Albuterol Sulfate (Ventolin Hfa) 18 Gm Hfa.aer.ad, 2 PUFF INH Q4H PRN for SOB/WHEEZING Ipratropium/Albuterol Sulfate (Combivent Respimat 20-100 Mcg) 4 Gm Mist.inhal, 1 PUFF INH QID PRN for SOB/WHEEZING Tramadol HCl (Tramadol HCl) 50 Mg Tablet, 50 MG PO BID PRN for PAIN Allergies Coded Allergies: No Known Drug Allergies (Verified Allergy, Unknown, 10/12/20) A-FIB/CHADSVASC A-FIB History Current/History of A-Fib/PAF?: No Current PO Anticoag Therapy: No KELVIN KEMP MD Oct 12, 2020 09:09
[2020-10-12] MEDS ORDERED: GLUCOSE 4GM CHEW TABLET PO PRN (09:30)
[2020-10-12] MEDS ORDERED: GLUCAGON INJ 1MG VIAL SC PRN (09:30)
[2020-10-12] MEDS ORDERED: DEXTROSE 50% 50 ML SYRINGE IV PRN (09:30)
[2020-10-12] MEDS ORDERED: MIDO5TA PO (09:42)
[2020-10-12] MEDS ORDERED: D31000TA2 PO (09:42)
[2020-10-12] MEDS ORDERED: MAGN400T3 PO (09:42)
[2020-10-12] MEDS ORDERED: LACT10SO3 PO (09:42)
[2020-10-12] MEDS ORDERED: TORS100T PO (09:42)
[2020-10-12] MEDS ORDERED: VENTAER INH (09:42)
[2020-10-12] MEDS ORDERED: TRAM50TA2 PO (09:42)
[2020-10-12] MEDS ORDERED: PANT40TA29 PO (09:42)
[2020-10-12] MEDS ORDERED: GABA-843 PO (09:42)
[2020-10-12] MEDS ORDERED: LEVO25TA5 PO (09:42)
[2020-10-12] MEDS ORDERED: COMBAER6 INH (09:42)
[2020-10-12] MEDS ORDERED: POTA10TA17 PO (09:42)
[2020-10-12] MEDS ORDERED: FERR325T16 PO (09:42)
[2020-10-12] MEDS ORDERED: SPIR-10 PO (09:42)
[2020-10-12] MEDS: HEPARIN SOD (PORCINE) 5000UNITS/ML 1ML VIAL/SYRINGE SC SCH ×3 (10:18→21:47)
[2020-10-12 13:00] VITALS: BP 142/68
[2020-10-12] MEDS: NS 1,000 ML IV SCH ×2 (13:10→17:30)
[2020-10-12] MEDS: HumaLOG INSULIN (NovoLOG) PER UNIT SC SCH ×3 (13:17→21:48)
--- NOTE | 2020-10-12 13:40 | CR ---
CONSULTATION REQUESTING PHYSICIAN: Dr. Rojelio Velasquez CONSULTING PHYSICIAN: Dr. Ling REASON FOR CONSULTATION: Management of acute renal failure. CHIEF COMPLAINT: The patient was brought to the emergency room with altered mental status. HISTORY OF PRESENT ILLNESS: Christina Ngo is a 65-year-old female with past medical history of diabetes mellitus type 2, history of nonalcoholic steatohepatitis with liver cirrhosis, well known to nephrology service from recent prolonged hospitalization where she had renal failure, required CVVHDF and then intermittent hemodialysis followed by high dose of diuretics. Her renal function recovered and she was sent home on high dose of diuretics. She recently followed up in nephrology service and her home dose of diuretic torsemide 50 mg p.o. twice a day and spironolactone 25 mg p.o. daily was continued. She stopped taking her lactulose at home because of loose bowel movements. She started having more confusion, altered mental status and lethargy. She was brought to the emergency room where she was found to have hepatic encephalopathy and she also was found to have acute failure with a creatinine of 2.2 on arrival. Her most recent creatinine before she was discharged from the hospital on September 21 was 1.2. The patient also had an elevated lactic acid level of 2.5. The patient was admitted under the hospitalist service with acute renal failure, dehydration and hepatic encephalopathy. The case was discussed with myself by the admitting physician and decision was made to hydrate the patient, stop her diuretics and give lactulose for hepatic encephalopathy. The patient needed my immediate attention. I saw and evaluated the patient at the bedside in the emergency room today morning. After getting three liters of normal saline bolus, the patient was much more awake and alert and she was able to answer my questions and she is making a good amount of urine now. PAST MEDICAL HISTORY: 1. Diabetes mellitus type 2. 2. Hypertension. 3. CAMPBELL cirrhosis. 4. Psoriatic arthritis. 5. Hypothyroidism. 6. Diverticulitis in the past. 7. History of esophageal varices, status post banding. 8. History of septic shock. 9. Hepatic encephalopathy. 10. Morbid obesity. 11. Chronic gout. 12. Renal failure requiring a prolonged hospitalization and dialysis about a month ago. PAST SURGICAL HISTORY: 1. Status post tonsillectomy in the past. 2. History of bilateral cataract surgery. 3. Status post cholecystectomy in 1985. 4. Traumatic hemothorax requiring chest tube and hospitalization back in August,. ALLERGIES: No known drug allergies. FAMILY HISTORY: No significant family history of end-stage renal disease requiring hemodialysis. SOCIAL HISTORY: The patient lives at home with a same sex partner. She denies any illicit drug abuse, smoking or alcohol abuse. REVIEW OF SYSTEMS: Constitutional: She denies any fevers or chills. Eyes: She denies any blurry vision, double vision. ENT: She denies any dysphagia or odynophagia. Cardiovascular: She denies any chest pain or palpitation. Respiratory: She denies any shortness of breath. GI: She denies any nausea or vomiting. Genitourinary: She reports decreased urine output. Musculoskeletal: She denies any muscle aches and pains. Skin: She denies any rashes or ulcers. Psych: She denies any depression or anxiety. She does report she was getting more confused nowadays. Hematological/Oncological: She denies any easy bleeding or bruising. 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 PHYSICAL EXAMINATION: GENERAL: The patient is awake, alert, oriented x2 now, lying in the bed. VITAL SIGNS: Temperature is 96.6 degrees Fahrenheit, blood pressure 144/74, pulse is 92, respiratory rate of 16, saturating 91% on room air. HEAD AND NECK: Extraocular muscles are intact. Pupils are equally round and reactive to light. Mucous membranes are moist. Neck is supple. There is no JVD. Mucous membranes are slightly dry. CARDIOVASCULAR: S1, S2, regular rate. EXTREMITIES: No edema of the bilateral lower extremities. RESPIRATORY: Chest is clear to auscultation bilaterally. Bilaterally currently no rales or rhonchi. ABDOMEN: Soft, obese, positive bowel sounds, no organomegaly and no ascites was noted. GENITOURINARY: Bladder is nonpalpable. MUSCULOSKELETAL: No clubbing or cyanosis. Pulse are 2+. 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 She has mild asterixis at this time. LABORATORY DATA: CBC showed a WBC of 7.9, hemoglobin 12.5, platelets 168. Urinalysis done in the emergency room showed no leukocyte esterase, no blood, no protein. BMP showed sodium 138, potassium 4.1, chloride 99, bicarbonate 32, BUN 44. Creatinine is 2.2. Total bilirubin 1.3, AST 35, ALT 8. Alk phos is 168. Ammonia is 140. Albumin is 2.9. Urine toxicology is negative. Alcohol level is negative. COVID PCR is negative. IMAGING: A chest x-ray was done which did not show any acute pathology and CT of the head did not show any acute pathology. HOME MEDICATIONS: 1. Albuterol p.r.n. 2. Allopurinol 100 mg p.o. daily. 3. Vitamin D 1000 units p.o. daily. 4. Iron tablet 324 mg p.o. twice a day. 5. Gabapentin 300 mg p.o. twice a day. 6. Insulin Lispro sliding scale. 7. Lactulose 30 mL p.o. three times a day and she was not taking it regularly. 8. Levothyroxine 25 mcg p.o. daily. 9. Magnesium 800 mg p.o. twice a day. 10. Midodrine 5 mg p.o. twice a day. 11. Protonix 40 mg p.o. twice a day. 12. Potassium chloride 20 mEq p.o. twice a day. 13. Spironolactone 25 mg p.o. twice a day. 14. Torsemide 50 mg p.o. twice a day. 15. Tramadol p.r.n. CURRENT INPATIENT MEDICATIONS: 1. The patient got three liters of IV normal saline bolus. 2. She is also getting normal saline at 125 mL an hour. I put the holding parameters and the fluids be held at 6 p.m. tonight. 3. Colace 100 mg. p.o. twice a day. 4. Heparin subcu 5000 units q.8. 5. Insulin Lispro sliding scale. 6. She has been started on lactulose 30 mL p.o. three times a day. She was also given a one-time dose of 60 mL early in the morning. 7. She is on Protonix 40 mg IV daily. 8. Rifaximin 400 mg p.o. three times a day. 9. Thiamine 100 mg IV x1 dose. ASSESSMENT AND PLAN: 1. Acute renal failure superimposed on chronic kidney disease. The patient's best baseline creatinine is 1.2. Acute renal failure is most likely secondary to dehydration and volume depletion. Hold the diuretics. She has been adequately rehydrated. Continue to encourage oral hydration. 2. Nonalcoholic steatohepatitis liver cirrhosis with hepatic encephalopathy secondary to noncompliance with lactulose. She has been started on lactulose and rifaximin and she has been adequately hydrated. Clinically she is getting better. 3. Hypothyroidism. Continue home dose of levothyroxine 25 mcg p.o. daily. 4. History of hypotension. Blood pressures are optimal at this time, no need of restarting the midodrine at this point for now. 5. History of diabetes mellitus type 2. She gets insulin sliding scale p.r.n. only. Continue current dose. 6. History of chronic gout secondary to chronic kidney disease. Okay to restart the current dose of allopurinol. Thank you for involving me in the care of this patient. I shall be happy to follow the patient along with you tomorrow morning.
[2020-10-12] MEDS: LACTULOSE 20 GM/30 ML SYRUP UD PO SCH ×2 (15:48→21:49)
[2020-10-12 16:00] VITALS: BP 139/63
[2020-10-12 20:00] VITALS: BP 130/60
[2020-10-12] MEDS: allopurinoL 100 MG TAB PO SCH (21:49)
[2020-10-12] MEDS: traMADol 50 MG TAB PO PRN (21:50)
[2020-10-13] VITALS: BP 144/66
[2020-10-13 04:00] VITALS: BP 136/63
[2020-10-13 05:47] LABS: BASO # 0.1 10^3/uL (0.0-0.2); BASO % 0.7 % (0.0-1.0); EOS # 0.2 10^3/uL (0.0-0.5); EOS % 3.3 % (0.0-3.0); HEMATOCRIT 35.8 % (36.0-47.0); HEMOGLOBIN 11.4 g/dl (12.0-15.5); LYMPH # 1.8 10^3/uL (1.5-5.0); LYMPH % 26.3 % (24.0-44.0); MEAN CORPUSCULAR HEMOGLOBIN 30.2 pg (27.0-33.0); MEAN CORPUSCULAR HGB CONC 31.8 g/dl (32.0-36.5); MEAN CORPUSCULAR VOLUME 94.7 fl (80.0-96.0); MONO # 0.9 10^3/uL (0.0-0.8); MONO % 13.1 % (0.0-5.0); NEUTROPHILS # 3.9 10^3/uL (1.5-8.5); NEUTROPHILS % 56.5 % (36.0-66.0); PLATELET COUNT, AUTOMATED 142 10^3/uL (150-450); RED BLOOD COUNT 3.78 10^6/uL (4.00-5.40); WHITE BLOOD COUNT 6.9 10^3/uL (4.0-10.0)
[2020-10-13 06:19] LABS: ALBUMIN 2.6 GM/DL (3.2-5.2); BILIRUBIN,TOTAL 1.2 MG/DL (0.2-1.0); CALCIUM LEVEL 8.7 MG/DL (8.8-10.2); CREATININE FOR GFR 1.44 MG/DL (0.55-1.30); GLOMERULAR FILTRATION RATE 39.1 (>45); MAGNESIUM LEVEL 1.8 MG/DL (1.8-2.4); POTASSIUM SERUM 3.7 MEQ/L (3.5-5.1); TOTAL PROTEIN 6.8 GM/DL (6.4-8.2)
[2020-10-13] MEDS: LEVOTHYROXINE 25MCG TABLET (0.025MG) PO SCH (06:35)
[2020-10-13] MEDS: HEPARIN SOD (PORCINE) 5000UNITS/ML 1ML VIAL/SYRINGE SC SCH ×3 (06:35→22:21)
[2020-10-13 07:51] VITALS: BP 142/62
[2020-10-13] MEDS: LACTULOSE 20 GM/30 ML SYRUP UD PO SCH ×3 (08:57→22:19)
[2020-10-13] MEDS: HumaLOG INSULIN (NovoLOG) PER UNIT SC SCH ×4 (08:57→21:00)
[2020-10-13] MEDS: PANTOPRAZOLE 40MG VIAL (C9113 PER 1) IV SCH (08:58)
[2020-10-13] MEDS: DOCUSATE SODIUM 100MG CAPSULE PO SCH ×2 (09:00→21:00)
[2020-10-13 11:47] VITALS: BP 124/62
--- NOTE | 2020-10-13 12:13 | IPNPDOC ---
Text Note Date of Service The patient was seen on 10/13/20. NOTE Subjective: Patient was seen and examined this morning at bedside. Patient says she's doing well. She was alert and oriented 3. She tells me that she had 3 loose stools and stopped taking her lactulose. She understands the importance of taking her lactulose as she is very sensitive to elevated ammonia levels and frequently becomes disoriented and confused when her ammonia level rises. This morning she is back to her baseline in terms of her mental status. I asked physical therapy to evaluate her as she says she is feeling a little weaker than usual and physical therapy evaluated her and thinks she would benefit from a few days of inpatient therapy Objective: Constitutional: Awake and alert, in no apparent distress, obese ENT: Sclera are clear. Mucosa is moist. Respiratory: Lungs CTA bilaterally. No respiratory distress. No use of accessory muscles. Cardiovascular: RRR S1 and S2 are normal, no murmur Gastrointestinal: Abdomen is soft, non distended, non tender, BS present. Musculoskeletal: No LE/UE edema. Neurologic: No focal neurological deficit. No asterixis on exam today. Mental Status: A&O x3, normal affect Skin: Warm, dry Assessment/plan: 65-year-old female with a history of sick daily, type 2 diabetes, liver cirrhosis from alcoholic about a steatosis with hepatic encephalopathy, presented to hospital acute confusion after he discontinued her lactulose approximately 3-4 days ago. Patient will be admitted to PCU for the management of acute hepatic encephalopathy as indicated by an elevated ammonia level and asterixis on physical examination. After treatment with lactulose and rifaximin, patients mental status recovered back to baseline. Importance of adherance to her medications was discussed. Patient is medically cleared for discharge, however physical therapy would like to work with her for a few days prior to DC, patient made ALC on 10/13/2020 until cleared by PT to go home. # Acute Hepatitic encephalopathy: ammonia 140 initially, improved with lactulose TID. Rifaximin. Encephalopathy resolved. #Fall/head injury: CT head wo contrast no acute changes. PT/OT #AIDA on CKD 3: Cr 2.2 initially, improved with IVFs, likely pre-renal from dehydration. Cr now 1.4 closer to baseline ~1.2. Encourage oral hydration. Nephrology consult as patient is well known to service, recent hx ATN on CRRT. Dc ribera. Hold torsemide. #HTN: BP ok. Hold lisinopril given AIDA. #T2DM/ neuropathy: ISS, FSBS AC and HS. Hypoglycemic precautions. # Morbid obesity: BMI 43.4. Complicating care # Psoriatic arthiritis: Tylenol, [place] prn. # Hyperlipidemia: statin. # Hx of gout: Allopurinol # Hypothyroidism: Synthroid # GERD: PPI daily. # Chronic back pain: tylenol prn. Use tramadol if pain worsens, judiciously. # DVT prophylaxis: Heparin A Yousef Hospitalist Imaging: IMAGING: CT head wo contrast (10/12/20): FINDINGS: Brain: Nonspecific small punctate calcifications seen in the extra-axial space possibly dural or pial. Cerebral ventricles: No ventriculomegaly. Bones/joints: Unremarkable. No acute fracture. Paranasal sinuses: Visualized sinuses are unremarkable. No fluid levels. Mastoid air cells: Visualized mastoid air cells are well aerated. Soft tissues: Unremarkable. Other findings: There is suggestion of high riding dense. IMPRESSION: 1. No CT evidence of acute intracranial hemorrhage, mass effect or midline shift. 2. No large acute territorial infarct seen. 3. Nonspecific few scattered tiny extra-axial calcifications, unchanged since the prior exam. 4. Questionable basilar invagination. If clinically indicated dedicated CT or MRI may be obtained for further evaluation. CXR (10/12/20): FINDINGS: Tubes, catheters and devices: There is interval removal of the right neck hemodialysis catheter. Lungs: Unremarkable. No consolidation. Pleural space: There is interval resolution of the left-sided pleural effusion. Heart/Mediastinum: Unremarkable. No cardiomegaly. Bones/joints: There are multiple left-sided rib fractures, seen on the prior exam. IMPRESSION: No acute focal lung consolidation. VS,Fishbone, I+O VS, Fishbone, I+O Laboratory Tests 10/13/20 05:26 Vital Signs Date Time Temp Pulse Resp B/P (MAP) Pulse Ox O2 Delivery O2 Flow Rate FiO2 10/13/20 11:47 98.2 93 16 124/62 (82) 95 Room Air I&O- Last 24 Hours up to 6 AM 10/13/20 06:00 Intake Total 4125 ml Output Total 1325 ml Balance 2800 ml LEE GALARZA MD Oct 13, 2020 11:58
[2020-10-13] MEDS ORDERED: ALBUTEROL 90 MCG/ACT 8GM HFA INHALER INH PRN (12:30)
[2020-10-13] MEDS ORDERED: COMBIVENT RESPIMAT 100-20MCG INHALER 4GM INH PRN (12:30)
[2020-10-13] MEDS: VITAMIN D 1,000 INTERNATIONAL UNITS TABLET PO SCH (13:52)
[2020-10-13] MEDS: MAGNESIUM OXIDE 400 MG TAB (MAG-OX) PO SCH ×2 (13:53→22:20)
[2020-10-13] MEDS: FERROUS GLUCONATE 324 MG TAB PO SCH ×2 (13:53→22:19)
[2020-10-13] MEDS: GABAPENTIN 300 MG CAP PO SCH ×2 (13:53→22:20)
[2020-10-13] MEDS: COMBIVENT RESPIMAT 100-20MCG INHALER 4GM INH SCH ×2 (15:12→19:42)
[2020-10-13 16:00] VITALS: BP 148/70
[2020-10-13] MEDS: SPIRONOLACTONE 25 MG TAB PO SCH (17:02)
[2020-10-13 20:00] VITALS: BP 128/62
--- NOTE | 2020-10-13 21:28 | IPN ---
PROGRESS NOTE DATE: 10/13/2020 SUBJECTIVE: Patient was seen and examined at the bedside today morning. Patient is much more awake and alert today. She was given I.V. fluid hydration yesterday. Renal function is significantly better. Creatinine has improved to 1.4 today morning. She was getting physical therapy when I saw her in the morning. OBJECTIVE: VITAL SIGNS: Temperature 98.4 degrees Fahrenheit, blood pressure 148/70, pulse 85, respiratory rate 18, saturating 93% on room air. INTAKE/OUTPUT: Urine output recorded as 875 mL yesterday, 450 mL so far today. Weight in the bed scale is 85.1 kg. PHYSICAL EXAMINATION: GENERAL: Patient is awake, alert, oriented x3, laying in bed, in no apparent distress. HEAD AND NECK: Extraocular muscles intact. Pupils equally round and reactive to light. Mucous membranes are moist. Neck is supple. There is no JVD. CARDIOVASCULAR: S1, S2, regular rate. No edema of the bilateral lower extremities. RESPIRATORY: Chest is clear to auscultation bilaterally. Bilateral equal air entry. No rales or rhonchi. ABDOMEN: Soft, positive bowel sounds, nontender. No organomegaly. MUSCULOSKELETAL: No clubbing or cyanosis. Pulses are 2+. NEWSROOM INTERN: No focal deficits. No asterixis. Power is 5/5 in all extremities. LAB REVIEW: CBC showed WBC 6.9, hemoglobin 11.4, platelets 142,000. BMP showed sodium 137, potassium 3.7, chloride 104, bicarb 27, BUN 35, creatinine 1.4; it was 2.2 yesterday. Total bilirubin 1.2. Ammonia level 57. CURRENT INPATIENT MEDICATIONS: Patient's medications were all reviewed by myself. There is no significant change in the medications today as compared with yesterday. ASSESSMENT AND PLAN: 1. Acute renal failure: It was secondary to dehydration and volume depletion. Renal function is significantly better today. Creatinine is 1.4; baseline creatinine is 1.2. Hold the diuretics at this time. Okay to discontinue the Teixeira catheter. 2. History of hypertension: Blood pressure level is optimal at this time. No need of antihypertensives. Re-initiation of low dose diuretic would help improve the blood pressure. 3. Hepatic encephalopathy: Patient continues to be on lactulose and Rifaximin. Clinically she is much better. 4. CAMPBELL cirrhosis with history of ascites and volume overload: No need of diuretics, patient actually came in volume depleted and needed I.V. fluids. 5. Gout secondary to chronic kidney disease: Continue current dose of Allopurinol 100 mg p.o. daily. DISPOSITION: Patient is clinically getting better. Hopefully we should be able to discharge the patient home over the next 24 to 48 hours.
[2020-10-13] MEDS: allopurinoL 100 MG TAB PO SCH (22:20)
[2020-10-13] MEDS: traMADol 50 MG TAB PO PRN (22:25)
[2020-10-14 00:09] VITALS: BP 124/85
[2020-10-14 06:00] VITALS: BP 128/89
[2020-10-14] MEDS: HEPARIN SOD (PORCINE) 5000UNITS/ML 1ML VIAL/SYRINGE SC SCH ×3 (06:11→22:00)
[2020-10-14] MEDS: LEVOTHYROXINE 25MCG TABLET (0.025MG) PO SCH (06:11)
[2020-10-14] MEDS: ONDANSETRON 4 MG ORAL DISINTEGRATING TAB SL PRN (06:26)
[2020-10-14] MEDS: COMBIVENT RESPIMAT 100-20MCG INHALER 4GM INH SCH ×4 (07:27→20:00)
[2020-10-14 07:38] LABS: BASO % 0.5 % (0.0-1.0); EOS # 0.2 10^3/uL (0.0-0.5); EOS % 4.2 % (0.0-3.0); HEMATOCRIT 34.9 % (36.0-47.0); HEMOGLOBIN 11.2 g/dl (12.0-15.5); LYMPH # 1.1 10^3/uL (1.5-5.0); LYMPH % 19.7 % (24.0-44.0); MEAN CORPUSCULAR HEMOGLOBIN 30.4 pg (27.0-33.0); MEAN CORPUSCULAR HGB CONC 32.1 g/dl (32.0-36.5); MEAN CORPUSCULAR VOLUME 94.8 fl (80.0-96.0); MONO # 0.8 10^3/uL (0.0-0.8); MONO % 13.9 % (0.0-5.0); NEUTROPHILS # 3.4 10^3/uL (1.5-8.5); NEUTROPHILS % 61.3 % (36.0-66.0); PLATELET COUNT, AUTOMATED 128 10^3/uL (150-450); RED BLOOD COUNT 3.68 10^6/uL (4.00-5.40); WHITE BLOOD COUNT 5.5 10^3/uL (4.0-10.0)
[2020-10-14 08:03] LABS: ALBUMIN 2.6 GM/DL (3.2-5.2); BILIRUBIN,TOTAL 1.1 MG/DL (0.2-1.0); CALCIUM LEVEL 8.7 MG/DL (8.8-10.2); CREATININE FOR GFR 1.17 MG/DL (0.55-1.30); GLOMERULAR FILTRATION RATE 49.7 (>45); MAGNESIUM LEVEL 1.9 MG/DL (1.8-2.4); POTASSIUM SERUM 3.6 MEQ/L (3.5-5.1); TOTAL PROTEIN 6.6 GM/DL (6.4-8.2)
[2020-10-14] MEDS ORDERED: MORPHINE 4 MG/ML 1ML VIAL/SYRINGE (J2270) IV ONE (09:00)
[2020-10-14] MEDS ORDERED: ONDANSETRON 4MG/2ML VIAL IV ONE (09:00)
[2020-10-14] MEDS: PANTOPRAZOLE 40MG VIAL (C9113 PER 1) IV SCH (09:40)
[2020-10-14] MEDS: LACTULOSE 20 GM/30 ML SYRUP UD PO SCH ×2 (09:40→21:55)
[2020-10-14] MEDS: HumaLOG INSULIN (NovoLOG) PER UNIT SC SCH ×4 (09:40→21:00)
[2020-10-14] MEDS: FERROUS GLUCONATE 324 MG TAB PO SCH ×2 (09:40→21:59)
[2020-10-14] MEDS: GABAPENTIN 300 MG CAP PO SCH ×2 (09:40→21:58)
[2020-10-14] MEDS: DOCUSATE SODIUM 100MG CAPSULE PO SCH ×2 (09:42→21:00)
[2020-10-14] MEDS: VITAMIN D 1,000 INTERNATIONAL UNITS TABLET PO SCH (09:42)
[2020-10-14] MEDS: MAGNESIUM OXIDE 400 MG TAB (MAG-OX) PO SCH ×2 (09:42→21:59)
[2020-10-14] MEDS: SPIRONOLACTONE 25 MG TAB PO SCH ×2 (09:43→16:28)
[2020-10-14] MEDS: traMADol 50 MG TAB PO PRN (16:29)
[2020-10-14] MEDS: allopurinoL 100 MG TAB PO SCH (21:59)
--- NOTE | 2020-10-14 22:46 | IPN ---
NEPHROLOGY PROGRESS NOTE DATE: 10/14/2020 SUBJECTIVE: The patient was seen and examined at the bedside today morning. She is afebrile, hemodynamically stable. She was refusing physical therapy today because her abdomen is hurting. She reports that she is having too many loose stools. Encephalopathy is getting better. Her renal function is significantly better. Creatinine has improved to 1.1 today. OBJECTIVE: VITAL SIGNS: Temperature is 97.9 degrees Fahrenheit, blood pressure 128/89, pulse is 76, respiratory rate of 18, saturating 96% on room air. Intake and Output urine output recorded as 650 mL yesterday, 650 mL so far today since overnight. She had 4 bowel movements yesterday, two bowel movement so far today since overnight. Weight on the bed scale is not available. PHYSICAL EXAMINATION: GENERAL APPEARANCE: The patient is awake, alert, oriented x3, laying in bed in no apparent distress. HEAD AND NECK: Extraocular muscles intact. Pupils are equally round and reactive to light. Mucous membranes are moist. Neck is supple. There is no significant jugular venous distention. CARDIOVASCULAR: S1, S2, regular rate. EXTREMITIES: No edema of the bilateral lower extremities. RESPIRATORY: Chest is clear to auscultation bilaterally. Bilaterally currently no rales or rhonchi. ABDOMEN: Soft, obese, positive bowel sounds, nontender, no organomegaly. MUSCULOSKELETAL: No clubbing, no cyanosis. Pulses are 2+. ETCHER HAND: No focal deficits. No asterixis noted at this time. LABORATORY REVIEW: CBC showed a WBC of 5.5, hemoglobin 11.2, platelets are 128. BMP showed sodium 136, potassium 3.6, chloride 103, bicarbonate 28, BUN 25, creatinine is 1.17, it was 1.44 yesterday. Calcium is 8.7, magnesium is 1.9, total bilirubin is 1.1. Ammonia level is 67. Albumin 2.6. CURRENT INPATIENT MEDICATIONS: The patient's medications were all reviewed by myself. Her Lactulose dose has been decreased to 30 mL p.o. twice a day. She was also started on Spironolactone 25 mg p.o. twice a day. No other significant change in the medications today as compared with yesterday. ASSESSMENT AND PLAN: 1. Acute renal failure superimposed on chronic kidney disease - renal function is significantly better. Creatinine has improved to 1.1. Diuretic will be slowly introduced. 2. Hepatic encephalopathy - The patient is currently on Lactulose and Rifaximin. She has abdominal distention and reports abdominal pain. Lactulose dose has been decreased to twice a day. 3. CAMPBELL cirrhosis and history of ascites and volume overload - The patient came in with dehydration and volume depletion. Torsemide has been stopped. Spironolactone has been restarted. Continue current dose of Spironolactone. Torsemide will be added if needed if the patient develops edema. 4. Iron deficiency anemia - continue current dose of iron tablets. Hemoglobin level is stable.
[2020-10-15] MEDS: HEPARIN SOD (PORCINE) 5000UNITS/ML 1ML VIAL/SYRINGE SC SCH ×3 (05:30→21:08)
[2020-10-15] MEDS: LEVOTHYROXINE 25MCG TABLET (0.025MG) PO SCH (05:30)
[2020-10-15] MEDS: traMADol 50 MG TAB PO PRN ×2 (05:31→21:07)
[2020-10-15 06:00] VITALS: BP 143/72
[2020-10-15 06:30] LABS: BASO # 0.1 10^3/uL (0.0-0.2); BASO % 0.9 % (0.0-1.0); EOS # 0.3 10^3/uL (0.0-0.5); HEMATOCRIT 34.6 % (36.0-47.0); HEMOGLOBIN 11.5 g/dl (12.0-15.5); LYMPH # 1.3 10^3/uL (1.5-5.0); LYMPH % 22.6 % (24.0-44.0); MEAN CORPUSCULAR HEMOGLOBIN 31.9 pg (27.0-33.0); MEAN CORPUSCULAR HGB CONC 33.2 g/dl (32.0-36.5); MEAN CORPUSCULAR VOLUME 95.8 fl (80.0-96.0); MONO # 0.8 10^3/uL (0.0-0.8); NEUTROPHILS # 3.1 10^3/uL (1.5-8.5); NEUTROPHILS % 55.1 % (36.0-66.0); PLATELET COUNT, AUTOMATED 113 10^3/uL (150-450); RED BLOOD COUNT 3.61 10^6/uL (4.00-5.40); WHITE BLOOD COUNT 5.5 10^3/uL (4.0-10.0)
[2020-10-15 07:01] LABS: ALBUMIN 2.5 GM/DL (3.2-5.2); BILIRUBIN,TOTAL 1.1 MG/DL (0.2-1.0); CALCIUM LEVEL 8.8 MG/DL (8.8-10.2); CREATININE FOR GFR 1.15 MG/DL (0.55-1.30); GLOMERULAR FILTRATION RATE 50.7 (>45); POTASSIUM SERUM 3.8 MEQ/L (3.5-5.1); TOTAL PROTEIN 6.6 GM/DL (6.4-8.2)
[2020-10-15] MEDS: COMBIVENT RESPIMAT 100-20MCG INHALER 4GM INH SCH ×4 (07:25→20:00)
[2020-10-15] MEDS: PANTOPRAZOLE 40MG VIAL (C9113 PER 1) IV SCH (08:36)
[2020-10-15] MEDS: LACTULOSE 20 GM/30 ML SYRUP UD PO SCH ×2 (08:37→21:08)
[2020-10-15] MEDS: GABAPENTIN 300 MG CAP PO SCH ×2 (08:37→21:06)
[2020-10-15] MEDS: SPIRONOLACTONE 25 MG TAB PO SCH ×2 (08:37→17:40)
[2020-10-15] MEDS: VITAMIN D 1,000 INTERNATIONAL UNITS TABLET PO SCH (08:37)
[2020-10-15] MEDS: FERROUS GLUCONATE 324 MG TAB PO SCH ×2 (08:37→21:06)
[2020-10-15] MEDS: HumaLOG INSULIN (NovoLOG) PER UNIT SC SCH ×4 (08:37→21:08)
[2020-10-15] MEDS: MAGNESIUM OXIDE 400 MG TAB (MAG-OX) PO SCH ×2 (08:38→21:07)
[2020-10-15] MEDS: DOCUSATE SODIUM 100MG CAPSULE PO SCH ×2 (08:45→21:00)
--- NOTE | 2020-10-15 11:53 | DS.PDOC ---
Discharge Summary General Date of Admission Oct 12, 2020 at 08:45 Date of Discharge 10/15/2020 Discharge Summary PROCEDURES PERFORMED DURING STAY: [None]. ADMITTING DIAGNOSES: 1. Acute encephalopathy DISCHARGE DIAGNOSES: 1. Acute hepatic encephalopathy 2. Acute on chronic kidney injury COMPLICATIONS/CHIEF COMPLAINT: Acute On Chronic Kidney Injury. HISTORY OF PRESENT ILLNESS: from H&P: 65 yo F with an extensive medical history (listed below), including DM2, HTN, liver cirrhocis with hepatic encephalopathy, CKD, who was recently admitted with prolonged hospitalization in 08/2020 for ATN secondary to hypotension from traumatic hemothorax, complicated by hepatic encephalopathy. Patient returns to the ED in a confused and obtunded state. Much of history was obtained collaterally from her Dania. She reports patient doing well after discharge, followed up with Dr. Gleason and had been functional and mentally capable until the evening prior to admission. described patient stopping lactulose, as she had been having copious bowel movements. She also reports a recent fall on 10/09 which resulted in head injury agains the bathtub. Patient became acutely altered and was brought to the ED. she was found to have an ammonia level CXL. She was given 60 mL of lactulose as well as 100 mg of thiamine. She appeared clinically dry and examined and was given 1 L normal saline bolus. HOSPITAL COURSE: 65-year-old female with a history of sick daily, type 2 diabetes, liver cirrhosis from alcoholic about a steatosis with hepatic encephalopathy, presented to hospital acute confusion after he discontinued her lactulose approximately 3-4 days ago. Patient will be admitted to PCU for the management of acute hepatic encephalopathy as indicated by an elevated ammonia level and asterixis on physical examination. After treatment with lactulose and rifaximin, patients mental status recovered back to baseline. Importance of adherance to her medications was discussed. Patient is medically cleared for discharge, however physical therapy would like to work with her for a few days prior to DC, on 10/15/2020 cleared by PT to go home. # Acute Hepatitic encephalopathy: ammonia 140 initially, improved with lactulose TID. Rifaximin. Encephalopathy resolved. Emphasized to patient importance of taking her lactulose as prescribed daily. She has history of noncompliance with her lactulose. #Fall/head injury: CT head wo contrast no acute changes. PT/OT #AIDA on CKD 3: Cr 2.2 initially, resolved with IVFs, likely pre-renal from dehydration. Cr now 1.4 closer to baseline ~1.2. Encourage oral hydration. Nephrology consult as patient is well known to service, recent hx ATN on CRRT. Dc ribera. Hold torsemide. #HTN: BP ok. Hold lisinopril given AIDA, a cavitary resolved can resume on discharge. #T2DM/ neuropathy: ISS, FSBS AC and HS. Hypoglycemic precautions. # Morbid obesity: BMI 43.4. Complicating care # Psoriatic arthiritis: Tylenol, Ruskin prn. # Hyperlipidemia: statin. # Hx of gout: Allopurinol # Hypothyroidism: Synthroid # GERD: PPI daily. # Chronic back pain: tylenol prn. Use tramadol if pain worsens, judiciously. DISCHARGE MEDICATIONS: Please see below. ALLERGIES: Please see below. PHYSICAL EXAMINATION ON DISCHARGE: Constitutional: Awake and alert, in no apparent distress, obese ENT: Sclera are clear. Mucosa is moist. Respiratory: Lungs CTA bilaterally. No respiratory distress. No use of accessory muscles. Cardiovascular: RRR S1 and S2 are normal, no murmur Gastrointestinal: Abdomen is soft, non distended, non tender, BS present. Musculoskeletal: No LE/UE edema. Neurologic: No focal neurological deficit. No asterixis on exam today. Mental Status: A&O x3, normal affect Skin: Warm, dry LABORATORY DATA: Please see below. IMAGING: CT head without contrast 10/12/2020 impressions: IMPRESSION: 1. No CT evidence of acute intracranial hemorrhage, mass effect or midline shift. 2. No large acute territorial infarct seen. 3. Nonspecific few scattered tiny extra-axial calcifications, unchanged since the prior exam. 4. Questionable basilar invagination. If clinically indicated dedicated CT or MRI may be obtained for further evaluation. PROGNOSIS: fair ACTIVITY: [As tolerated]. DIET: 2g sodium diet DISPOSITION: Home with home health DISCHARGE INSTRUCTIONS: Please follow up with your primary care physician within 1 week from discharge. If you do not have one, please follow up with us to schedule an appointment. Please keep all of your follow up appointments. Please call central to book your appointments with hospital specialists. Please take all your medications as prescribed. Please call/come to Clinic or go to the Emergency Department if - Temp >101, intractable Nausea/Vomiting, Diarrhea, Mouth sores, Headaches, Altered mental status, Seizures, sudden onset of swelling, bleeding, shortness of breath or chest pain. ITEMS TO FOLLOWUP ON ON OUTPATIENT: 1. Take lactulose as prescribed daily 2. Follow-up with primary care doctor within 3-5 days of discharge DISCHARGE CONDITION: [Stable]. TIME SPENT ON DISCHARGE: Greater than 35 minutes. Vital Signs/I&Os Vital Signs Date Time Temp Pulse Resp B/P (MAP) Pulse Ox O2 Delivery O2 Flow Rate FiO2 10/15/20 06:01 16 10/15/20 06:00 97.3 88 143/72 (95) 95 Room Air I&O- Last 24 Hours up to 6 AM 10/15/20 06:00 Intake Total 870 ml Output Total 900 ml Balance -30 ml Laboratory Data Labs 24H Laboratory Tests 2 10/14/20 16:24: Bedside Glucose (Misc Panel) 160H 10/14/20 20:34: Bedside Glucose (Misc Panel) 212H 10/15/20 06:04: Immature Granulocyte % (Auto) 0.4, Neutrophils (%) (Auto) 55.1, Lymphocytes (%) (Auto) 22.6L, Monocytes (%) (Auto) 15.0H, Eosinophils (%) (Auto) 6.0H, Basophils (%) (Auto) 0.9, Neutrophils # (Auto) 3.1, Lymphocytes # (Auto) 1.3L, Monocytes # (Auto) 0.8, Eosinophils # (Auto) 0.3, Basophils # (Auto) 0.1, Nucleated Red Blood Cells % (auto) 0.0, Anion Gap 5L, Glomerular Filtration Rate 50.7, Calcium Level 8.8, Magnesium Level 2.0, Total Bilirubin 1.1H, Aspartate Amino Transf (AST/SGOT) 34, Alanine Aminotransferase (ALT/SGPT) 9L, Alkaline Phosphatase 159H, Total Protein 6.6, Albumin 2.5L, Albumin/Globulin Ratio 0.6L 10/15/20 11:35: Bedside Glucose (Misc Panel) 200H CBC/BMP Laboratory Tests 10/15/20 06:04 FSBS Laboratory Tests Test 10/14/20 16:24 10/14/20 20:34 10/15/20 11:35 Range/Units Bedside Glucose (Misc Panel) 160 212 200 80-115 MG/DL Discharge Medications Scheduled Allopurinol (Allopurinol) 100 Mg Tab, 100 MG PO QHS, (Reported) Cholecalciferol (Vitamin D3) (Vitamin D3) 1,000 Unit Tablet, 1,000 UNITS PO DAILY, (Reported) Ferrous Gluconate (Ferrous Gluconate) 324 Mg Tablet, 324 MG PO BID, (Reported) Gabapentin (Gabapentin) 300 Mg Capsule, 300 MG PO BID, (Reported) Insulin Human Lispro (Novolog) 100 U/Ml Inj, 1 DOSE SC BID, (Reported) PER SLIDING SCALE Lactulose (Lactulose) 10 Gm/15 Ml Solution, 30 ML PO TID for constipation, (Reported) Levothyroxine Sodium (Levothyroxine Sodium) 25 Mcg Tablet, 25 MCG PO DAILY, (Reported) Magnesium Oxide (Magnesium Oxide) 400 Mg Tablet, 800 MG PO BID, (Reported) Midodrine HCl (Midodrine HCl) 5 Mg Tablet, 5 MG PO BID, (Reported) Pantoprazole Sodium (Pantoprazole Sodium) 40 Mg Tablet.dr, 40 MG PO BID, (Reported) Potassium Chloride (Potassium Chloride) 10 Meq Tab.er.prt, 20 MEQ PO BID, (Reported) Spironolactone (Spironolactone) 25 Mg Tablet, 25 MG PO BID, (Reported) Torsemide (Torsemide) 100 Mg Tablet, 50 MG PO BID, (Reported) 0900/1700 Scheduled PRN Albuterol Sulfate (Ventolin Hfa) 18 Gm Hfa.aer.ad, 2 PUFF INH Q4H PRN for SOB/WHEEZING, (Reported) Ipratropium/Albuterol Sulfate (Combivent Respimat 20-100 Mcg) 4 Gm Mist.inhal, 1 PUFF INH QID PRN for SOB/WHEEZING, (Reported) Tramadol HCl (Tramadol HCl) 50 Mg Tablet, 50 MG PO BID PRN for PAIN, (Reported) Allergies Coded Allergies: No Known Drug Allergies (Verified Allergy, Unknown, 10/12/20) LEE GALARZA MD Oct 15, 2020 11:53
[2020-10-15] MEDS ORDERED: XIFA200T2 PO (11:55)
[2020-10-15] MEDS ORDERED: LACT10SO3 PO (11:55)
[2020-10-15] MEDS: allopurinoL 100 MG TAB PO SCH (21:07)
[2020-10-16] MEDS: ONDANSETRON 4 MG ORAL DISINTEGRATING TAB SL PRN (03:29)
[2020-10-16] MEDS: traMADol 50 MG TAB PO PRN ×2 (03:59→13:42)
[2020-10-16 06:00] VITALS: BP 138/63
[2020-10-16] MEDS: LEVOTHYROXINE 25MCG TABLET (0.025MG) PO SCH (06:24)
[2020-10-16] MEDS: HEPARIN SOD (PORCINE) 5000UNITS/ML 1ML VIAL/SYRINGE SC SCH ×2 (06:24→13:37)
[2020-10-16] MEDS: HumaLOG INSULIN (NovoLOG) PER UNIT SC SCH ×2 (07:30→12:55)
[2020-10-16] MEDS: COMBIVENT RESPIMAT 100-20MCG INHALER 4GM INH SCH ×3 (07:38→16:00)
[2020-10-16] MEDS ORDERED: TORSEMIDE 20 MG TAB PO SCH (09:00)
[2020-10-16] MEDS: DOCUSATE SODIUM 100MG CAPSULE PO SCH (09:00)
[2020-10-16] MEDS: SPIRONOLACTONE 25 MG TAB PO SCH (09:55)
[2020-10-16] MEDS: LACTULOSE 20 GM/30 ML SYRUP UD PO SCH (09:55)
[2020-10-16] MEDS: PANTOPRAZOLE 40MG VIAL (C9113 PER 1) IV SCH (09:55)
[2020-10-16] MEDS: FERROUS GLUCONATE 324 MG TAB PO SCH (09:55)
[2020-10-16] MEDS: MAGNESIUM OXIDE 400 MG TAB (MAG-OX) PO SCH (09:56)
[2020-10-16] MEDS: GABAPENTIN 300 MG CAP PO SCH (09:56)
[2020-10-16] MEDS: VITAMIN D 1,000 INTERNATIONAL UNITS TABLET PO SCH (09:56)
[2020-10-16] MEDS ORDERED: TORS20TA2 PO (13:18)
[2020-10-16 13:42] VITALS: BP 138/63
--- NOTE | 2020-10-16 22:18 | IPN ---
NEPHROLOGY PROGRESS NOTE DATE: 10/16/2020 SUBJECTIVE: Patient was seen and examined at the bedside today morning. She is afebrile and hemodynamically stable. Her renal function is stable. She is just on Spironolactone at this time. She does report mild lower extremity edema. She continues to be on lactulose. She reports that she is having abdominal pain. Her Rifaximin has been stopped by the medical team now. OBJECTIVE: VITAL SIGNS: Temperature 98 degrees Fahrenheit, blood pressure 138/63, pulse 94, respiratory rate 18, saturating 92% on room air. INTAKE/OUTPUT: Urine output recorded as 850 mL yesterday, 1200 mL so far today since overnight. Weight in the bed scale is not available. PHYSICAL EXAMINATION: GENERAL: Patient is awake, alert, oriented x3, laying in bed, in no apparent distress. HEAD AND NECK: Extraocular muscles intact. Pupils equally round and reactive to light. Mucous membranes are moist. Neck is supple. There is no JVD. CARDIOVASCULAR: S1, S2, regular rate. Trace edema of bilateral lower extremities. RESPIRATORY: Chest is clear to auscultation bilaterally. Bilateral equal air entry. No rales or rhonchi. ABDOMEN: Soft, obese, positive bowel sounds. No organomegaly was noted. MUSCULOSKELETAL: No clubbing or cyanosis. Trace edema of the bilateral ankles was noted. REAL ESTATE CLOSING COORDINATOR: No focal deficits. Power is 5/5 in all extremities. LAB REVIEW: CBC showed WBC 5.5, hemoglobin 11.5, platelets 113,000. BMP showed sodium 136, potassium 3.8, chloride 103, bicarb 28, BUN 21, creatinine 1.15. Magnesium 2. Total bilirubin 1.1. Albumin 2.5. CURRENT INPATIENT MEDICATIONS: Patient's medications were all reviewed by myself. She continues to be on Spironolactone 25 mg p.o. twice a day. I have started the patient on Torsemide 20 mg p.o. daily. No other significant change in the medications today as compared with yesterday. ASSESSMENT AND PLAN: 1. Acute renal failure: It was secondary to dehydration and volume depletion. Patient was given I.V. fluids and diuretics were held. Renal function has recovered back to baseline. Now the patient is developing edema in the extremities. A low dose of Torsemide has been reintroduced. 2. Cirrhosis with anasarca: It has totally resolved now. She is tolerating Spironolactone 25 mg p.o. twice a day and as mentioned above low dose of Torsemide 20 mg p.o. daily has been started. The rest of the diuretic adjustment will be done as an outpatient. 3. Hepatic encephalopathy: It has recovered now. Patient continues to be on lactulose. Rifaximin has been stopped because of abdominal pain. DISPOSITION: Patient is optimized from nephrology standpoint to be discharged home. She will need to follow-up with nephrology service within two weeks after discharge from the hospital.
== END 2020-10-16 17:17 | disposition home or self-care (01) | DRG 682 ==
LOC: M ED 02:01 → M ED INP 08:45 → ENRESERV 11:56 → M PCU 12:50 → M MSPAV 10-14 00:06
PROVIDERS: ADMIT Family Medicine; ATTEND Family Medicine
DX: N17.9 Acute kidney failure, unspecified (principal); K72.00 Acute and subacute hepatic failure without coma; Z68.41 Body mass index [BMI] 40.0-44.9, adult; N18.30 Chronic kidney disease, stage 3 unspecified; I12.9 Hypertensive chronic kidney disease with stage 1 through stage 4 chronic kidney disease, or unspecified chronic kidney disease; E86.0 Dehydration; E11.40 Type 2 diabetes mellitus with diabetic neuropathy, unspecified; E66.01 Morbid (severe) obesity due to excess calories; L40.50 Arthropathic psoriasis, unspecified; E78.5 Hyperlipidemia, unspecified; E03.9 Hypothyroidism, unspecified; K21.9 Gastro-esophageal reflux disease without esophagitis; M10.30 Gout due to renal impairment, unspecified site; K74.60 Unspecified cirrhosis of liver; Z79.4 Long term (current) use of insulin; Z79.899 Other long term (current) drug therapy; K75.81 Nonalcoholic steatohepatitis (NASH); Z90.49 Acquired absence of other specified parts of digestive tract; Z98.41 Cataract extraction status, right eye; Z98.42 Cataract extraction status, left eye; Z20.828 Contact with and (suspected) exposure to other viral communicable diseases

== ENCOUNTER → 2020-10-27 | Outpatient (REF) | payer OTHER ==
[~2020-10-27] MED LIST changes: +D31000TA2 PO; +FERR325T16 PO; +LACT10SO3 PO; +MAGN400T3 PO; +MIDO5TA PO; +POTA10TA17 PO; +SPIR-10 PO; +TORS20TA2 PO; +XIFA200T2 PO
[2020-10-27 18:48] LABS: PERCENT SATURATION 32.4 % (13.2-45.0)
== END ==
LOC: M LAB REF 17:13
PROVIDERS: ATTEND Internal Medicine Nephrology
DX: D50.9 Iron deficiency anemia, unspecified (principal); D62 Acute posthemorrhagic anemia

== ENCOUNTER 2020-11-08 23:01 | Emergency (ER) | payer OTHER ==
[~2020-11-08] VITALS: Ht 162.6 cm; Wt 85.9 kg
[2020-11-08] MEDS ORDERED: TIZA2TA PO (23:26)
[2020-11-09] MEDS ORDERED: TRAM50TA2 PO (00:04)
[2020-11-09] MEDS ORDERED: traMADol 50 MG TAB (BULK 4 TAB ED) PO ONE (00:15)
--- NOTE | 2020-11-09 00:28 | REPVR ---
PROCEDURE INFORMATION: Exam: XR Ribs with PA Chest, 4 Views Exam date and time: 11/08/2020 11:59 PM Age: 65 years old Clinical indication: Chest wall pain; Bilateral; Patient HX: Prior multiple left rib FX from 3 months ago; Additional info: Rib pain TECHNIQUE: Imaging protocol: XR bilateral ribs 4 views with PA chest. COMPARISON: CR Chest, 1 view 2020-10-12 05:56 FINDINGS: Limitations: Limited by patient's body habitus. Lungs: Unremarkable. No consolidation. Pleural space: Adjacent pleural thickening. Heart/Mediastinum: Unremarkable. No cardiomegaly. Bones/joints: Left lateral mildly displaced 5-11 rib fractures with incomplete bridging bone. IMPRESSION: Left lateral chronic mildly displaced 5-11 rib fractures with incomplete bridging bone. Adjacent pleural thickening. Electronically signed by: Gregg De Dios On 11/09/2020 00:28:24 AM
[2020-11-09 00:45] VITALS: BP 110/56
== END 2020-11-09 01:26 | disposition home or self-care (01) ==
LOC: M ED 23:01
DX: S22.42XA Multiple fractures of ribs, left side, initial encounter for closed fracture (principal); J92.9 Pleural plaque without asbestos; X58.XXXA Exposure to other specified factors, initial encounter; Y92.89 Other specified places as the place of occurrence of the external cause; Y93.89 Activity, other specified; Y99.8 Other external cause status; I11.9 Hypertensive heart disease without heart failure; E11.40 Type 2 diabetes mellitus with diabetic neuropathy, unspecified; E07.9 Disorder of thyroid, unspecified; E78.00 Pure hypercholesterolemia, unspecified; Z79.899 Other long term (current) drug therapy; Z79.4 Long term (current) use of insulin; Z79.891 Long term (current) use of opiate analgesic

== ENCOUNTER → 2020-12-10 | Outpatient (REF) | payer OTHER ==
[~2020-12-10] MED LIST changes: -AMIT25TA PO; +AMIT25TA17 PO; +GABA-282 PO; -GABA-843 PO
== END ==
LOC: M LAB REF 17:03
PROVIDERS: ATTEND Internal Medicine Nephrology
DX: G93.41 Metabolic encephalopathy (principal)

== ENCOUNTER → 2020-12-14 | Outpatient (REF) | payer OTHER | LOC: M LAB REF 16:57 | PROVIDERS: ATTEND Internal Medicine Nephrology | DX: G93.41 Metabolic encephalopathy (principal) ==

== ENCOUNTER → 2020-12-25 | Outpatient (REF) | payer OTHER ==
[~2020-12-25] MED LIST changes: -LISI-538 PO; -LISI-542 PO; +LISI-898 PO; +LISI10TA22 PO; -LISI10TA4 PO; +LISI20TA33 PO; -MAG400TA PO; +MAGN400T35 PO
== END ==
LOC: M LAB REF 16:45
PROVIDERS: ATTEND Internal Medicine Nephrology
DX: G93.41 Metabolic encephalopathy (principal)

== ENCOUNTER → 2021-01-06 | Outpatient (REF) | payer OTHER ==
[2021-01-06 18:58] LABS: HEMATOCRIT 36.2 % (36.0-47.0); HEMOGLOBIN 11.2 g/dl (12.0-15.5); MEAN CORPUSCULAR HEMOGLOBIN 30.4 pg (27.0-33.0); MEAN CORPUSCULAR HGB CONC 30.9 g/dl (32.0-36.5); MEAN CORPUSCULAR VOLUME 98.4 fl (80.0-96.0); RED BLOOD COUNT 3.68 10^6/uL (4.00-5.40); WHITE BLOOD COUNT 4.3 10^3/uL (4.0-10.0)
[2021-01-06 19:09] LABS: INR 1.31; PROTHROMBIN TIME 16.6 SECONDS (12.5-14.3)
[2021-01-06 19:17] LABS: ALBUMIN 2.4 GM/DL (3.2-5.2); CALCIUM LEVEL 8.5 MG/DL (8.8-10.2); CREATININE FOR GFR 1.22 MG/DL (0.55-1.30); GLOMERULAR FILTRATION RATE 47.4 (>45); POTASSIUM SERUM 4.2 MEQ/L (3.5-5.1); TOTAL PROTEIN 6.2 GM/DL (6.4-8.2)
[2021-01-08 17:08] LABS: ALPHA 1 ANTITRYPSIN 132 mg/dL (101-187); ANTI-MITOCHONDRIAL ANTIBODY <20.0 Units (0.0-20.0); ANTINUCLEAR ANTIBODIES DIRECT Negative (Negative); CERULOPLASMIN 22.6 mg/dL (19.0-39.0)
== END ==
LOC: M LAB REF 17:19
PROVIDERS: ATTEND Nurse Practitioner Family
DX: K72.90 Hepatic failure, unspecified without coma (principal); G93.41 Metabolic encephalopathy

== ENCOUNTER → 2021-01-06 | Outpatient (REF) | payer OTHER | LOC: M LAB REF 17:51 | PROVIDERS: ATTEND Internal Medicine Nephrology | DX: G93.41 Metabolic encephalopathy (principal) ==

== ENCOUNTER 2021-01-19 18:59 | Inpatient (IN) | payer OTHER ==
[~2021-01-19] VITALS: Ht 162.6 cm; Wt 91.1 kg
[~2021-01-19 18:59] MED LIST changes: -AMIT10TA PO; +AMIT10TA7 PO
[2021-01-19 20:31] LABS: BASO % 0.4 % (0.0-1.0); EOS # 0.2 10^3/uL (0.0-0.5); EOS % 4.7 % (0.0-3.0); HEMATOCRIT 37.4 % (36.0-47.0); HEMOGLOBIN 11.8 g/dl (12.0-15.5); LYMPH # 1.3 10^3/uL (1.5-5.0); LYMPH % 26.5 % (24.0-44.0); MEAN CORPUSCULAR HEMOGLOBIN 30.5 pg (27.0-33.0); MEAN CORPUSCULAR HGB CONC 31.6 g/dl (32.0-36.5); MEAN CORPUSCULAR VOLUME 96.6 fl (80.0-96.0); MONO # 0.5 10^3/uL (0.0-0.8); MONO % 10.5 % (2.0-8.0); NEUTROPHILS # 2.9 10^3/uL (1.5-8.5); NEUTROPHILS % 57.5 % (36.0-66.0); PLATELET COUNT, AUTOMATED 139 10^3/uL (150-450); RED BLOOD COUNT 3.87 10^6/uL (4.00-5.40); WHITE BLOOD COUNT 5.1 10^3/uL (4.0-10.0)
[2021-01-19] MEDS: HumaLOG INSULIN (NovoLOG) PER UNIT SC SCH (21:00)
[2021-01-19] MEDS: DOCUSATE SODIUM 100MG CAPSULE PO SCH (21:00)
[2021-01-19 21:01] LABS: ALBUMIN 2.7 GM/DL (3.2-5.2); ALT/SGPT 10 U/L (12-78); BILIRUBIN,DIRECT 0.7 MG/DL (0.0-0.2); BILIRUBIN,TOTAL 1.4 MG/DL (0.2-1.0); BLOOD UREA NITROGEN 13 MG/DL (7-18); CALCIUM LEVEL 9.3 MG/DL (8.8-10.2); CARBON DIOXIDE LEVEL 28 MEQ/L (21-32); CHLORIDE LEVEL 106 MEQ/L (98-107); CK-MB VALUE MASS 6.3 NG/ML (<3.6); CPK CREATINE PHOSPHOKINASE 111 U/L (26-192); CREATININE FOR GFR 1.05 MG/DL (0.55-1.30); GLOMERULAR FILTRATION RATE 56.3 (>45); GLUCOSE, FASTING 191 MG/DL (70-100); MAGNESIUM LEVEL 1.7 MG/DL (1.8-2.4); MB/CK RELATIVE INDEX 5.68 (< OR =4); SODIUM LEVEL 138 MEQ/L (136-145); TROPONIN I < 0.02 NG/ML (< 0.10)
--- NOTE | 2021-01-19 21:11 | REPVR ---
PROCEDURE INFORMATION: Exam: CT Abdomen And Pelvis Without Contrast Exam date and time: 01/19/2021 8:03 PM Age: 65 years old Clinical indication: Abdominal pain; Generalized; Additional info: Abdominal swelling; ? Ascites TECHNIQUE: Imaging protocol: Computed tomography of the abdomen and pelvis without contrast. Radiation optimization: All CT scans at this facility use at least one of these dose optimization techniques: automated exposure control; mA and/or kV adjustment per patient size (includes targeted exams where dose is matched to clinical indication); or iterative reconstruction. COMPARISON: CT ABD PELVIS W/O CONTRAST 08/22/2020 4:43 AM FINDINGS: Lungs: There is a calcified granuloma in the left lower lobe. There is mild compressive atelectasis in the left lower lobe. There is mild scarring in the lateral segment of the right middle lobe. The lungs were not fully imaged. Pleural spaces: There is a small left pleural effusion. The pleural spaces were not fully imaged. Heart: No cardiomegaly or pericardial effusion. Liver: The liver has a nodular contour, which can be seen with cirrhosis. No liver lesion is seen. No hepatomegaly is noted. Gallbladder and bile ducts: There has been a cholecystectomy. There is no fluid collection in the gallbladder fossa. No dilation of the bile ducts is noted. No calcified stones are seen in the common bile duct. Pancreas: Unremarkable. Spleen: No splenic lesion is noted. The spleen is enlarged and measures 14.1 cm. Adrenal glands: Normal. No adrenal mass is noted. Kidneys and ureters: There is a 1.8 cm benign-appearing simple cyst in the anterior cortex of the interpolar region of the right kidney, which is stable compared to the prior CT abdomen and pelvis on 08/22/2020 and for which imaging follow-up is not recommended. The unenhanced left kidney is unremarkable. No stones are noted in the kidneys or ureters. There is no hydronephrosis or hydroureter. Stomach and bowel: The stomach is decompressed, limiting its optimal evaluation. The small bowel is unremarkable. There is colonic diverticulosis without evidence for diverticulitis. There is no evidence for a bowel obstruction, colitis, pneumatosis intestinalis, intussusception, volvulus, or perforated viscus. Appendix: There are no findings to suggest acute appendicitis. Intraperitoneal space: There are calcifications in the right lateral paracolic gutter and cul-de-sac. There is a moderate volume of ascites that has increased compared to the prior CT abdomen and pelvis on 08/22/2020. No free air. Retroperitoneal space: Unremarkable. Vasculature: The abdominal aorta is normal in caliber. There are mild atherosclerotic calcifications. Lymph nodes: No enlarged lymph nodes. Urinary bladder: The partially distended urinary bladder is unremarkable. No stones or masses are seen in the bladder. Reproductive: The uterus is anterverted and unremarkable. The ovaries are unremarkable. Bones/joints: There are chronic ununited fractures of the left posterolateral 7th, 8th, 9th, and 10th ribs. There are also chronic healed fracture deformities of the right anterior 6th and 8th ribs and the left posterolateral 11th rib. No suspicious osteolytic or osteoblastic lesion. There are degenerative changes involving the lumbar spine. Soft tissues: There is diffuse anasarca. IMPRESSION: 1. Nodular contour of the liver, which can be seen with cirrhosis. 2. Moderate volume of ascites that has increased compared to the prior CT abdomen and pelvis on 08/22/2020. 3. Small left pleural effusion. 4. Diffuse anasarca. 5. Splenomegaly. 6. Colonic diverticulosis without evidence for diverticulitis. Electronically signed by: Armin Valera On 01/19/2021 21:12:02 PM
--- NOTE | 2021-01-19 21:14 | REPVR ---
PROCEDURE INFORMATION: Exam: XR Chest Exam date and time: 01/19/2021 7:26 PM Age: 65 years old Clinical indication: Altered mental status TECHNIQUE: Imaging protocol: XR of the chest Views: 1 view. COMPARISON: 1. CR Ribs Bilat w-PA CHEST 11/08/2020 11:[address] ABD PELVIS W/O CONTRAST 01/19/2021 8:04:02 PM FINDINGS: Lungs: There is left basilar atelectasis. No pulmonary edema is noted. Pleural spaces: There is a small left pleural effusion. No pneumothorax is noted. Heart/Mediastinum: Unremarkable. No cardiomegaly. Vasculature: There are atherosclerotic calcifications of the aortic arch. Bones/joints: There are chronic bilateral rib fractures. There is osteoarthritis of the right acromioclavicular joint. Endplate spurs are present in the thoracic spine. IMPRESSION: Small left pleural effusion with associated left basilar atelectasis. Electronically signed by: Armin Valera On 01/19/2021 21:14:45 PM
--- NOTE | 2021-01-19 21:23 | REPVR ---
PROCEDURE INFORMATION: Exam: US Duplex Lower Extremity Veins, Bilateral Exam date and time: 01/19/2021 9:09 PM Age: 65 years old Clinical indication: Edema, localized; Lower extremity, bilateral; Additional info: Bilateral leg swelling; HX of dvt TECHNIQUE: Imaging protocol: Real-time duplex ultrasound of the extremities with 2-D estrada scale, color Doppler flow and spectral waveform analysis with image documentation. Complete exam focused on the bilateral lower extremity veins. COMPARISON: US Duplex, Ext LOWER veins, bilat 09/23/2020 4:18 PM FINDINGS: Right deep veins: Unremarkable. The common femoral, femoral, and popliteal veins are patent without thrombus. Normal compressibility, augmentation response and Doppler waveforms. Right superficial veins: Saphenofemoral junction is patent without thrombus. Left deep veins: Unremarkable. The common femoral, femoral, and popliteal veins are patent without thrombus. Normal compressibility, augmentation response and Doppler waveforms. Left superficial veins: Saphenofemoral junction is patent without thrombus. Soft tissues: There is soft tissue edema in both lower extremities. IMPRESSION: No deep vein thrombosis in the bilateral femoropopliteal veins. Electronically signed by: Armin Valera On 01/19/2021 21:23:50 PM
[2021-01-19] MEDS ORDERED: MORPHINE 2 MG/ML 1ML VIAL (J2270) IV ONE (21:40)
[2021-01-19] MEDS ORDERED: LACT20EL PO (22:37)
[2021-01-19] MEDS ORDERED: OMEP-221 PO (22:37)
[2021-01-19] MEDS ORDERED: VITA100091 PO (22:37)
[2021-01-19] MEDS ORDERED: TRAM50TA2 PO (22:37)
[2021-01-19 22:39] LABS: RSV AMPLIFICATION NEGATIVE (NEGATIVE)
[2021-01-19] MEDS ORDERED: MOM 30ML SUSPENSION UDC PO PRN (23:20)
[2021-01-19] MEDS ORDERED: traMADol 50 MG TAB PO PRN (23:20)
[2021-01-19] MEDS ORDERED: DEXTROSE 50% 50 ML SYRINGE IV PRN (23:20)
[2021-01-19] MEDS ORDERED: GLUCOSE 4GM CHEW TABLET PO PRN (23:20)
[2021-01-19] MEDS ORDERED: GLUCAGON INJ 1MG VIAL SC PRN (23:20)
[2021-01-19] MEDS ORDERED: ALBUTEROL 90 MCG/ACT 8GM HFA INHALER INH PRN (23:20)
[2021-01-19] MEDS ORDERED: MAALOX 30 ML SUSP *UDC PO PRN (23:20)
[2021-01-19] MEDS ORDERED: ACETAMINOPHEN TAB 650MG DOSE (2X325MG) PO PRN (23:20)
[2021-01-19] MEDS ORDERED: cefTRIAXone SOD 1 GM in D5W MINI-BAG PLUS 50 ML IV ONE (23:40)
--- NOTE | 2021-01-19 23:49 | HPEPDOC ---
[facility] Medical History & Physical Date of Admission Jan 19, 2021 Date of Service: Jan 19, 2021 History and Physical CHIEF COMPLAINT: Abdominal distention HISTORY OF PRESENT ILLNESS: 65-year-old female extensive medical history including Campbell cirrhosis who presents to the hospital because of increasing abdominal distention over the past several weeks although she only really started noticing it over the past week or so. She says she abdominal feedings more distended and slightly painful and her legs have become increasingly swollen as well. Patient denies being short of breath today. Although she does feel weak. Her thermometer maker Dr. Gleason had discussed with her in the past that she will likely need paracentesis but she had been previously hesitant to go ahead with the procedure but she is more accepting now to having it done. In the ED lower extremity duplex was done was negative for DVT. CT abdomen shows increase in her abdominal ascites from prior exam. PAST MEDICAL/SURGICAL HISTORY: Insulin-dependent Diabetes HTN hypothyroidism Psoriatic arthritis CAMPBELL cirrhosis Diverticulitis esophageal varices post-banding GERD CKD III. Tonsillectomy 1990s Bilateral cataract surgery last year Cholecystectomy 1985 SOCIAL HISTORY: Denies using illicit drugs. Denies smoking tobacco. Denies drinking alcohol. FAMILY HISTORY: Brother history of CAD and diabetes A different brother history of colon cancer. Mother history of arthritis and A. fib and diabetes and COPD ALLERGIES: Please see below. REVIEW OF SYSTEMS: 10 point review of systems complete all negative otherwise stated in HPI HOME MEDICATIONS: Please see below. PHYSICAL EXAMINATION: Constitutional: Awake and alert, in no apparent distress ENT: No scleral icterus Respiratory: Lungs diminished breath sounds bilaterally. No respiratory distress. Cardiovascular: RRR S1 and S2 are normal Gastrointestinal: Abdomen is soft, obese, distended, mildly tender, positive fluid wave sign. Musculoskeletal: 2+ lower extremity pitting edema up to knees Neurologic: No focal neurological deficit. Mental Status: A&O x3, normal affect Skin: Warm, dry LABORATORY DATA: See below. IMAGING: See chart MICROBIOLOGY: Please see below. ASSESSMENT/PLAN # Abdominal ascites 2/2 CAMPBELL cirrhosis: Ascites seen on CT increased from prior study at time of last admission. She will likely need IR to evaluate for paracentesis in the morning, consult placed. I will give her 1 dose of ceftriaxone for antibiotic prophylaxis in patient with ascites and history of esophageal bleeding varices and morning team can decide if they wish to resume it. In addition due to her LE edema I will start her on Bumex 1mg daily which can have better oral absorption in patients with anasarca than lasix. # CKD III : Follows with Dr Gleason. Avoid nephrotoxins. Monitor BMP. # T2DM/ neuropathy: ISS, FSBS AC and HS. Hypoglycemic precautions. # Hypertension: Continue home meds. Monitor and titrate # Both TSH and Free T4 elevated: repeat testing. hold synthroid for now. # Hx of gout: Allopurinol # Chronic back pain: tylenol prn. Use tramadol if pain worsens, judiciously. # Psoriatic arthiritis: Tylenol # Morbid obesity: BMI 38.1. Complicating care # GERD: continue home omeprazole daily # DVT prophylaxis: Heparin A Yousef Hospitalist Vital Signs Vital Signs Date Time Temp Pulse Resp B/P (MAP) Pulse Ox O2 Delivery O2 Flow Rate FiO2 01/19/21 21:51 10 Room Air 01/19/21 19:07 01/19/21 19:00 98.1 97 97 Laboratory Data Labs 24H Laboratory Tests 2 01/19/21 19:26: Immature Granulocyte % (Auto) 0.4, Neutrophils (%) (Auto) 57.5, Lymphocytes (%) (Auto) 26.5, Monocytes (%) (Auto) 10.5H, Eosinophils (%) (Auto) 4.7H, Basophils (%) (Auto) 0.4, Neutrophils # (Auto) 2.9, Lymphocytes # (Auto) 1.3L, Monocytes # (Auto) 0.5, Eosinophils # (Auto) 0.2, Basophils # (Auto) 0.0, Nucleated Red Blood Cells % (auto) 0.0, Anion Gap 4L, Glomerular Filtration Rate 56.3, Calcium Level 9.3, Magnesium Level 1.7L, Total Bilirubin 1.4H, Direct Bilirubin 0.7H, Aspartate Amino Transf (AST/SGOT) 44H, Alanine Aminotransferase (ALT/SGPT) 10L, Alkaline Phosphatase 234H, Ammonia 30, Total Creatine Kinase 111, Creatine Kinase MB 6.3H, Creatine Kinase MB Relative Index 5.68H, Troponin I < 0.02, Total Protein 7.0, Albumin 2.7L, Albumin/Globulin Ratio 0.6L, Thyroid Stimulating Hormone (TSH) 3.780H, Free Thyroxine 1.80H 01/19/21 21:50: Coronavirus (COVID-19)(PCR) NEGATIVE, Influenza Type A (RT-PCR) NEGATIVE, Influenza Type B (RT-PCR) NEGATIVE, Respiratory Syncytial Virus (PCR) NEGATIVE CBC/BMP Laboratory Tests 01/19/21 19:26 Home Medications Scheduled Allopurinol (Allopurinol) 100 Mg Tab, 100 MG PO QHS Ascorbic Acid (Vitamin C) 1,000 Mg Tablet, 1,000 MG PO DAILY Cholecalciferol (Vitamin D3) (Vitamin D3) 1,000 Unit Tablet, 1,000 UNITS PO DAILY Gabapentin (Gabapentin) 300 Mg Capsule, 300 MG PO BID Insulin Human Lispro (Novolog) 100 U/Ml Inj, 1 DOSE SC ACHS PER SLIDING SCALE Lactulose (Lactulose) 10 Gm/15 Ml Solution, 30 ML PO TID Levothyroxine Sodium (Levothyroxine Sodium) 25 Mcg Tablet, 25 MCG PO DAILY Magnesium Oxide (Magnesium Oxide) 400 Mg Tablet, 800 MG PO BID Omeprazole (Omeprazole) 40 Mg Capsule.dr, 40 MG PO DAILY Spironolactone (Spironolactone) 25 Mg Tablet, 25 MG PO DAILY Scheduled PRN Albuterol Sulfate (Ventolin Hfa) 18 Gm Hfa.aer.ad, 2 PUFF INH Q4H PRN for SHORTNESS OF BREATH Tizanidine HCl (Tizanidine HCl) 2 Mg Tablet, 2 MG PO TID PRN for MUSCLE SPASMS Tramadol HCl (Tramadol HCl) 50 Mg Tablet, 50 MG PO DAILY PRN for PAIN Allergies Coded Allergies: No Known Drug Allergies (Verified Allergy, Unknown, 01/19/21) A-FIB/CHADSVASC A-FIB History Current/History of A-Fib/PAF?: No LEE GALARZA MD Jan 19, 2021 23:49
[2021-01-20] VITALS (7 sets, daily range): BP systolic 150–178; BP diastolic 65–88
[2021-01-20] MEDS: LACTULOSE 20 GM/30 ML SYRUP UD PO SCH ×4 (00:02→21:03)
[2021-01-20] MEDS: MAGNESIUM OXIDE 400MG TAB (MAG-OX) PO SCH ×3 (00:02→21:03)
[2021-01-20] MEDS: allopurinoL 100 MG TAB PO SCH ×2 (00:03→21:03)
[2021-01-20] MEDS: GABAPENTIN 300 MG CAP PO SCH ×3 (00:03→21:03)
--- NOTE | 2021-01-20 00:36 | ECGEPIP ---
[facility] - ED Test Date: 2021-01-19 Pat Name: AUDREY VILLALOBOS Department: Room: - Gender: Female Target Trimmer: TY : 1955 Requested By: CHARMAINE TREADWELL Order Number: [id number] Reading MD: Asif Rodriguez Measurements Intervals [place] Rate: 92 P: 32 HI: 136 QRS: -34 QRSD: 104 T: 81 QT: 376 QTc: 464 Interpretive Statements Normal sinus rhythm Left axis deviation LEFT ANTERIOR FASCICULAR BLOCK INCOMPLETE RIGHT BUNDLE BRANCH BLOCK POOR R WAVE PROGRESSION SIMILAR TO 10/12/20 Electronically Signed on 01-20-2021 0:35:59 EST by Asif Rodriguez
[2021-01-20] MEDS: traMADol 50 MG TAB PO PRN ×2 (05:33→16:05)
[2021-01-20] MEDS: HEPARIN SOD (PORCINE) 5000UNITS/ML 1ML VIAL/SYRINGE SC SCH ×3 (05:34→21:04)
[2021-01-20] MEDS ORDERED: LEVOTHYROXINE 25MCG TABLET (0.025MG) PO SCH (06:00)
[2021-01-20 06:19] LABS: HEMATOCRIT 34.1 % (36.0-47.0); HEMOGLOBIN 10.8 g/dl (12.0-15.5); MEAN CORPUSCULAR HEMOGLOBIN 30.6 pg (27.0-33.0); MEAN CORPUSCULAR HGB CONC 31.7 g/dl (32.0-36.5); MEAN CORPUSCULAR VOLUME 96.6 fl (80.0-96.0); PLATELET COUNT, AUTOMATED 164 10^3/uL (150-450); RED BLOOD COUNT 3.53 10^6/uL (4.00-5.40); WHITE BLOOD COUNT 6.3 10^3/uL (4.0-10.0)
[2021-01-20 06:58] LABS: ALBUMIN 2.5 GM/DL (3.2-5.2); BILIRUBIN,TOTAL 1.4 MG/DL (0.2-1.0); CREATININE FOR GFR 1.04 MG/DL (0.55-1.30); FREE T4 1.77 NG/DL (0.76-1.46); MAGNESIUM LEVEL 1.7 MG/DL (1.8-2.4); POTASSIUM SERUM 4.8 MEQ/L (3.5-5.1); THYROID STIMULATING HORMONE 3.59 uIU/ML (0.358-3.740); TOTAL PROTEIN 6.5 GM/DL (6.4-8.2)
[2021-01-20] MEDS: HumaLOG INSULIN (NovoLOG) PER UNIT SC SCH ×4 (07:30→20:57)
[2021-01-20 08:43] LABS: INR 1.25
[2021-01-20 08:44] LABS: PARTIAL THROMBOPLASTIN TIME 36.9 SECONDS (24.2-38.5)
[2021-01-20 08:54] LABS: TOTAL PROTEIN 6.8 GM/DL (6.4-8.2)
[2021-01-20] MEDS: DOCUSATE SODIUM 100MG CAPSULE PO SCH ×2 (09:37→21:00)
[2021-01-20] MEDS: SPIRONOLACTONE 25 MG TAB PO SCH (09:38)
[2021-01-20] MEDS: OMEPRAZOLE 20 MG CAP PO SCH (09:38)
[2021-01-20] MEDS: BUMETANIDE 1 MG TAB PO SCH (09:52)
[2021-01-20 12:17] LABS: APPEARANCE, URINE HAZY (CLEAR); BACTERIA, URINE AUTO NEGATIVE (NEGATIVE); BILIRUBIN, URINE AUTO NEGATIVE (NEGATIVE); BLOOD, URINE BLOOD NEGATIVE (NEGATIVE); COLOR, URINE AMBER (YELLOW); GLUCOSE, URINE (UA) AUTO NEGATIVE (NEGATIVE); KETONE, URINE AUTO TRACE mg/dL (NEGATIVE); LEUKOCYTE ESTERASE, URINE AUTO NEGATIVE (NEGATIVE); NITRITE, URINE AUTO NEGATIVE (NEGATIVE); PROTEIN, URINE AUTO NEGATIVE (NEGATIVE); RBC, URINE AUTO 0 /HPF (0-3); SPECIFIC GRAVITY URINE AUTO 1.021 (1.002-1.035); SQUAMOUS EPITHELIAL CELL UR AU 6 /HPF (0-6); UROBILINOGEN, URINE AUTO 0.2 mg/dL (0.0-2.0); WBC, URINE AUTO 1 /HPF (0-3)
--- NOTE | 2021-01-20 16:08 | REP ---
INDICATION: ascites Akins cirrhosis increased abdominal distention. COMPARISON: None. TECHNIQUE: The procedure was performed under the direct supervision of Dr. Pacheco. The risks and benefits of the procedure were explained to the patient and informed consent was obtained. The risks and benefits of the procedure were explained to the patient and informed consent was obtained. The largest pocket of fluid was localized in the left flank using ultrasound guidance. The skin was prepped and draped in a sterile fashion. 1% lidocaine was used as a local anesthetic. Using ultrasound guidance, an 8-Kinyarwanda multi side-hole catheter was inserted using trocar technique. 2400 cc of yellow fluid was withdrawn with a sample sent to the lab for analysis. The patient tolerated the procedure well and there were no immediate complications. After the appropriate amount of monitored convalescence, the patient was discharged from the department. FINDINGS: None IMPRESSION: Ultrasound-guided paracentesis yielding 2400 cc of yellow fluid. <Electronically signed by Antelmo Lawrence > 01/20/21 [id number] <Electronically signed by Santana Pacheco > 01/20/21 [id number]
[2021-01-20 16:20] LABS: SPEC. GRAVITY BODY FLUIDS 1.011 (NOT ESTABLISHED)
[2021-01-20 16:41] LABS: SOURCE, BODY FLUID ALBUMIN ASCITES; SOURCE, BODY FLUID GLUCOSE ASCITES; SOURCE, BODY FLUID TOT PROTEIN ASCITES; TOTAL PROTEIN, BODY FLUID 1.1 G/DL (NOT ESTABLISHED)
--- NOTE | 2021-01-20 17:00 | CR ---
CONSULTATION DATE: 01/20/2021 REASON FOR CONSULTATION: Generalized edema and ascites in this lady with a history of cirrhosis. HISTORY OF PRESENT ILLNESS: Ms. Ngo is a 65-year-old female with significant history for nonalcoholic cirrhosis and ascites. She has noticed significant increase in her abdominal distention and also generalized edema, due to which she presented to the emergency room yesterday and was admitted. In the past she had declined paracentesis. CT scan of abdomen and pelvis was done in the emergency room, which did show ascites increased compared to her prior imaging study. MEDICAL HISTORY: Significant for: 1. Insulin-requiring diabetes. 2. Hypertension. 3. Hypothyroidism. 4. Nonalcoholic cirrhosis. 5. Psoriatic arthritis. 6. Diverticulosis. 7. Esophageal varices, status post banding. 8. History of gastroesophageal reflux disease. 9. History of chronic kidney disease. SURGICAL HISTORY: Significant for: 1. Tonsillectomy. 2. Bilateral cataract surgery. 3. Cholecystectomy. PERSONAL AND SOCIAL HISTORY: Patient denies any alcohol, drugs, or tobacco use. FAMILY HISTORY: Significant for coronary artery disease and diabetes. Mother had atrial fibrillation, chronic obstructive pulmonary disease (COPD), and diabetes. One brother has diabetes and coronary artery disease and another brother has colon cancer. HOME MEDICATIONS: - allopurinol 100 mg daily - vitamin C 1000 mg daily - vitamin D 1000 units daily - gabapentin 300 mg twice a day - insulin NovoLog per sliding scale - lactulose 30 mL three times a day - levothyroxine 25 mcg daily - magnesium oxide 800 mg twice a day - omeprazole 40 mg daily - spironolactone 25 mg daily - albuterol inhaler as needed - tizanidine 2 mg three times a day as needed for pain - tramadol 50 mg as needed for pain ALLERGIES: Patient has no known drug allergies. REVIEW OF SYSTEMS: She denies any fever or chills. She has gained weight and increased abdominal distention and edema over last several weeks. Ears, nose, and throat are unremarkable. Cardiovascular system is negative for dyspnea or chest pain. She does have increased lower extremity edema. Respiratory system is negative for cough or hemoptysis. Gastrointestinal (GI) system is significant for nonalcoholic cirrhosis and history of esophageal varices, for which she has required banding in the past. She denies any black-colored stools or rectal bleeding at present. Genitourinary () system is negative for dysuria or hematuria. Musculoskeletal system is significant for generalized edema and arthritis. She denies any nonsteroidal anti-inflammatory drug (NSAID) use. Skin is negative for rash or ulcers. Hematologic system negative for long-term anticoagulation. Neurologic system is significant for peripheral neuropathy. Endocrine system is significant for hypothyroidism in addition to diabetes. Psychosocial system is negative for depression and anxiety. PHYSICAL EXAMINATION: Temperature 98.2 degrees Fahrenheit, heart rate 120 per minute, respiratory rate 18 per minute, blood pressure 150/68 mmHg, and oxygen saturation 95% on room air. Head is atraumatic. Neck supple, and jugular venous distention (JVD) is about 6-7 cm above sternal angle. She has no oral thrush or ulcers. Pupils equal and reactive to light. Sclerae are anicteric. Ears, nose, and throat are unremarkable. Heart exam reveals tachycardia with regular rhythm. Lungs with slightly diminished breath sounds at bases. Abdomen is distended with ascites. There is no palpable organomegaly. Bowel sounds are normal. Extremities without any cyanosis or clubbing. Lower extremity edema is at least 2+. Skin has stretch yan on her abdomen. There is no ulcer or rash. Neurologically, she is awake, alert, and oriented times three. LABORATORY DATA: Her WBC count is 6.3, hemoglobin 10.8, hematocrit 34.1. Platelets 164. Sodium 140, potassium 4.8, CO2 of 28, BUN 12, creatinine 1.0. Glucose 123, calcium 9.0. Total bilirubin 1.4, AST 38, ALT 9, and alkaline phosphatase 217. Ammonia level was 30. Total protein 6.5 and albumin 2.5. TSH level is 3.5 and free T4 of 1.77. Urinalysis showed no protein and no blood. PROBLEMS: 1. Chronic kidney disease. Her kidney function is stable at about baseline with GFR just below 60 mL per minute. Electrolytes are stable at present. 2. Ascites with nonalcoholic cirrhosis. Patient does have increased amount of edema and ascites. She was on spironolactone, and now I see bumetanide 1 mg daily has been added. We will see how she responds. I agree with plan for paracentesis. 3. Hypertension. Blood pressure is slightly high; however, she is also quite tachycardic. I will recommend a small dose of beta samir if that would help with her tachycardia. She is already on diuretic, and I would not recommend calcium channel samir due to risk for increased peripheral edema. 4. Gout. She has been on allopurinol chronically, which is going to be continued. 5. Anemia. Her anemia is very mild without any active bleeding at this point. She does have a history of esophageal varices, but anemia is stable at this point. No urgent intervention is needed. Thank you for involving me in the care of Ms. Bennett. I will follow her along with you.
[2021-01-20 17:36] LABS: APPEARANCE, BODY FLUID HAZY (CLEAR); ASCITES FL COLOR YELLOW (COLORLESS); SOURCE, BODY FLUID ASCITES
[2021-01-20] MEDS: ONDANSETRON 4MG/2ML VIAL IV PRN (18:34)
--- NOTE | 2021-01-20 18:53 | IPNPDOC ---
Subjective Date Seen The patient was seen on 01/20/21. Subjective Chief Complaint/HPI Mrs. Ngo is a 65 year old female with CAMPBELL cirrhosis who presents with increased abdominal distension. This morning, she was anxious about the procedure, but she went down this afternoon. Drained 2.4L of yellow fluid. Absolute PMN was 16.9 which is not suggestive of SBP. Fluid stains pending. SAAG was 2.1 suggestive of portal hypertension Objective Physical Examination General Exam: Positive: Alert, Cooperative Eye Exam: Positive: EOMI; Negative: Sclera icteric Neck Exam: Positive: Supple Chest Exam: Positive: Clear to auscultation Heart Exam: Positive: Tachycardic, Regular Rhythm Abdomen Exam: Positive: Normal bowel sounds, Soft; Negative: Tenderness Extremity Exam: Positive: Edema (bilateral pitting) Neuro Exam: Positive: Normal Speech Psych Exam: Positive: Anxiety Assessment /Plan Assessment Mrs. Ngo is a 65 year old female with CAMPBELL cirrhosis who presents with CAMPBELL cirrhosis and ascites. On 01/20/2021, she was taken to IR for paracentesis. Drained 2.4L of yellow fluid. Absolute PMN was 16.9 which is not suggestive of SBP. Fluid stains pending. SAAG was 2.1 suggestive of portal hypertension. Otherwise, she is being diuresed with Bumex and spironolactone. Plan/VTE VTE Prophylaxis Ordered?: Yes Plan 1. CAMPBELL cirrhosis with portal hypertension and ascites Drained 2.4L of yellow fluid. Absolute PMN was 16.9 which is not suggestive of SBP. Fluid stains pending. SAAG was 2.1 suggestive of portal hypertension Continue spironolactone and Bumex Nephrology following, recommendations appreciated Child Callejas score 9, which would correlate with class B 2. Chronic kidney disease stage III Creatinine around baseline at 1.1 Supportive care and avoid nephrotoxic agents Nephrology following, recommendations appreciated 3. 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 Gout Continue allopurinol 5. Morbid obesity BMI of 37.7 6. GERD Continue omeprazole 7. DVT prophylaxis Heparin subcutaneous VS, I&O, 24H, Fishbone Vital Signs/I&O Vital Signs Date Time Temp Pulse Resp B/P (MAP) Pulse Ox O2 Delivery O2 Flow Rate FiO2 01/20/21 16:54 18 01/20/21 15:54 98.7 123 178/76 (110) 96 Room Air I&O- Last 24 Hours up to 6 AM 01/20/21 06:00 Intake Total 50 ml Output Total 300 ml Balance -250 ml Laboratory Data 24H LABS Laboratory Tests 2 01/19/21 19:26: Immature Granulocyte % (Auto) 0.4, Neutrophils (%) (Auto) 57.5, Lymphocytes (%) (Auto) 26.5, Monocytes (%) (Auto) 10.5H, Eosinophils (%) (Auto) 4.7H, Basophils (%) (Auto) 0.4, Neutrophils # (Auto) 2.9, Lymphocytes # (Auto) 1.3L, Monocytes # (Auto) 0.5, Eosinophils # (Auto) 0.2, Basophils # (Auto) 0.0, Nucleated Red Blood Cells % (auto) 0.0, Anion Gap 4L, Glomerular Filtration Rate 56.3, Calcium Level 9.3, Magnesium Level 1.7L, Total Bilirubin 1.4H, Direct Bilirubin 0.7H, Aspartate Amino Transf (AST/SGOT) 44H, Alanine Aminotransferase (ALT/SGPT) 10L, Alkaline Phosphatase 234H, Ammonia 30, Total Creatine Kinase 111, Creatine Kinase MB 6.3H, Creatine Kinase MB Relative Index 5.68H, Troponin I < 0.02, Total Protein 7.0, Albumin 2.7L, Albumin/Globulin Ratio 0.6L, Thyroid Stimulating Hormone (TSH) 3.780H, Free Thyroxine 1.80H 01/19/21 21:50: Coronavirus (COVID-19)(PCR) NEGATIVE, Influenza Type A (RT-PCR) NEGATIVE, Influenza Type B (RT-PCR) NEGATIVE, Respiratory Syncytial Virus (PCR) NEGATIVE 01/19/21 23:45: Bedside Glucose (Misc Panel) 146H 01/20/21 05:21: Nucleated Red Blood Cells % (auto) 0.0, Anion Gap 4L, Glomerular Filtration Rate 57.0, Calcium Level 9.0, Magnesium Level 1.7L, Total Bilirubin 1.4H, Aspartate A danielle Transf (AST/SGOT) 38H, Alanine Aminotransferase (ALT/SGPT) 9L, Alkaline Phosphatase 217H, Total Protein 6.5, Albumin 2.5L, Albumin/Globulin Ratio 0.6L, Thyroid Stimulating Hormone (TSH) 3.590, Free Thyroxine 1.77H 01/20/21 08:05: Prothrombin Time 16.0H, Prothromb Time International Ratio 1.25, Activated Partial Thromboplast Time 36.9, Total Protein (PEP) 6.8 01/20/21 09:42: Methicillin-Resist S.aureus DNA PCR NOT DETECTED 01/20/21 10:25: Urine Color BRIAN, Urine Appearance HAZY, Urine pH 5.0, Urine Specific [place] 1.021, Urine Protein NEGATIVE, Urine Glucose (Auto)(UA) NEGATIVE, Urine Ketones (Auto) TRACEH, Urine Blood NEGATIVE, Urine Nitrite NEGATIVE, Urine Bilirubin NEGATIVE, Urine Urobilinogen 0.2, Urine Leukocyte Esterase (Auto) NEGATIVE, Urine WBC (Auto) 1, Urine RBC (Auto) 0, Urine Hyaline Casts (Auto) 0, Urine Nancy teria (Auto) NEGATIVE, Urine Squamous Epithelial Cells 6, Urine Sperm (Auto) 01/20/21 11:32: Bedside Glucose (Misc Panel) 107 01/20/21 17:00: Bedside Glucose (Misc Panel) 175H CBC/BMP Laboratory Tests 01/19/21 19:26 01/20/21 05:21 Microbiology Microbiology 01/19/21 Gram Stain, Received Pending 01/19/21 Body Fluid Culture, Received Pending 01/19/21 Acid Fast Stain, Received Pending 01/19/21 Mycobacterial Culture, Received Pending 01/19/21 Fungal Smear, Received Pending 01/19/21 Fungal Culture, Received Pending SUSANNAH HUYNH 10, 2021 18:53
[2021-01-20] MEDS: CARVedilol 3.125 MG TAB PO SCH (19:33)
[2021-01-20] MEDS ORDERED: traMADol 50 MG TAB PO ONE (21:40)
[2021-01-20] MEDS ORDERED: ONDANSETRON 4MG/2ML VIAL IV ONE (21:40)
[2021-01-21] MEDS: HEPARIN SOD (PORCINE) 5000UNITS/ML 1ML VIAL/SYRINGE SC SCH ×3 (05:40→21:01)
[2021-01-21 06:00] VITALS: BP 161/80
[2021-01-21 06:49] LABS: HEMATOCRIT 33.9 % (36.0-47.0); HEMOGLOBIN 10.7 g/dl (12.0-15.5); MEAN CORPUSCULAR HEMOGLOBIN 31.3 pg (27.0-33.0); MEAN CORPUSCULAR HGB CONC 31.6 g/dl (32.0-36.5); MEAN CORPUSCULAR VOLUME 99.1 fl (80.0-96.0); PLATELET COUNT, AUTOMATED 148 10^3/uL (150-450); RED BLOOD COUNT 3.42 10^6/uL (4.00-5.40); WHITE BLOOD COUNT 5.5 10^3/uL (4.0-10.0)
[2021-01-21 07:07] LABS: ALBUMIN 2.5 GM/DL (3.2-5.2); BILIRUBIN,TOTAL 1.2 MG/DL (0.2-1.0); CALCIUM LEVEL 8.5 MG/DL (8.8-10.2); CREATININE FOR GFR 1.07 MG/DL (0.55-1.30); GLOMERULAR FILTRATION RATE 55.1 (>45); POTASSIUM SERUM 4.6 MEQ/L (3.5-5.1); TOTAL PROTEIN 6.4 GM/DL (6.4-8.2)
[2021-01-21] MEDS: LACTULOSE 20 GM/30 ML SYRUP UD PO SCH ×3 (08:04→20:58)
[2021-01-21] MEDS: HumaLOG INSULIN (NovoLOG) PER UNIT SC SCH ×4 (08:04→20:19)
[2021-01-21] MEDS: BUMETANIDE 1 MG TAB PO SCH ×2 (08:05→17:38)
[2021-01-21] MEDS: MAGNESIUM OXIDE 400MG TAB (MAG-OX) PO SCH ×2 (08:05→21:00)
[2021-01-21] MEDS: OMEPRAZOLE 20 MG CAP PO SCH (08:05)
[2021-01-21] MEDS: GABAPENTIN 300 MG CAP PO SCH ×2 (08:05→21:00)
[2021-01-21] MEDS: SPIRONOLACTONE 25 MG TAB PO SCH ×2 (08:06→17:39)
[2021-01-21] MEDS: DOCUSATE SODIUM 100MG CAPSULE PO SCH ×2 (08:07→20:57)
[2021-01-21] MEDS: CARVedilol 3.125 MG TAB PO SCH ×2 (08:07→21:00)
[2021-01-21 12:45] LABS: ALBUMIN 3.17 GM/DL (3.29-5.55); ALBUMIN % 46.6 % (55.8-66.1); ALPHA-1-GLOBULIN % 4.4 % (2.9-4.9); ALPHA-2-GLOBULINS % 7.4 % (7.1-11.8); BETA-1-GLOBULINS 0.41 GM/DL (0.28-0.60); BETA-2-GLOBULINS 0.46 GM/DL (0.19-0.55); BETA-2-GLOBULINS % 6.8 % (3.2-6.5); GAMMA GLOBULIN % 28.8 % (11.1-18.8); GAMMA GLOBULINS 1.96 GM/DL (0.65-1.58)
[2021-01-21 13:52] VITALS: BP 159/81
--- NOTE | 2021-01-21 18:14 | IPNPDOC ---
Subjective Date Seen The patient was seen on 01/21/21. Subjective Chief Complaint/HPI Mrs. Ngo is a 65 year old female with CAMPBELL cirrhosis who presents with increased abdominal distension. Overnight and this morning, she had nausea and vomiting. This may been contributing to her hypertension. Otherwise, she did feel better after the paracentesis. Nephrology evaluated patient today and increased her diuretics. Objective Physical Examination General Exam: Positive: Alert, Cooperative Eye Exam: Positive: EOMI; Negative: Sclera icteric Neck Exam: Positive: Supple Chest Exam: Positive: Clear to auscultation Heart Exam: Positive: Tachycardic, Regular Rhythm Abdomen Exam: Positive: Normal bowel sounds, Soft; Negative: Tenderness Extremity Exam: Positive: Edema (bilateral pitting) Neuro Exam: Positive: Normal Speech Psych Exam: Positive: Anxiety Assessment /Plan Assessment Mrs. Ngo is a 65 year old female with CAMPBELL cirrhosis who presents with CAMPBELL cirrhosis and ascites. On 01/20/2021, she was taken to IR for paracentesis. Drained 2.4L of yellow fluid. Absolute PMN was 16.9 which is not suggestive of SBP. Fluid stains pending. SAAG was 2.1 suggestive of portal hypertension. Otherwise, she is being diuresed with Bumex and spironolactone. Plan/VTE VTE Prophylaxis Ordered?: Yes Plan 1. CAMPBELL cirrhosis with portal hypertension and ascites Drained 2.4L of yellow fluid. Absolute PMN was 16.9 which is not suggestive of SBP. Fluid stains pending. SAAG was 2.1 suggestive of portal hypertension Nephrology following, recommendations appreciated Nephrology increased spironolactone and Bumex Child Callejas score 9, which would correlate with class B 2. Chronic kidney disease stage III Creatinine around baseline at 1.1 Supportive care and avoid nephrotoxic agents Nephrology following, recommendations appreciated 3. 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 Gout Continue allopurinol 5. Morbid obesity BMI of 37.7 6. Hypertension Started Coreg 7. GERD Continue omeprazole 8. DVT prophylaxis Heparin subcutaneous VS, I&O, 24H, Fishbone Vital Signs/I&O Vital Signs Date Time Temp Pulse Resp B/P (MAP) Pulse Ox O2 Delivery O2 Flow Rate FiO2 01/21/21 13:52 98.0 104 18 159/81 (107) 97 Room Air I&O- Last 24 Hours up to 6 AM 01/21/21 06:00 Intake Total 810 ml Output Total 3800 ml Balance -2990 ml Laboratory Data 24H LABS Laboratory Tests 2 01/20/21 20:38: Bedside Glucose (Misc Panel) 152H 01/21/21 05:46: Nucleated Red Blood Cells % (auto) 0.0, Anion Gap 3L, Glomerular Filtration Rate 55.1, Calcium Level 8.5L, Total Bilirubin 1.2H, Aspartate Amino Transf (AST/SGOT) 32, Alanine Aminotransferase (ALT/SGPT) 10L, Alkaline Phosphatase 198H, Total Protein 6.4, Albumin 2.5L, Albumin/Globulin Ratio 0.6L 01/21/21 06:02: Bedside Glucose (Misc Panel) 186H 01/21/21 11:23: Bedside Glucose (Misc Panel) 161H 01/21/21 16:40: Bedside Glucose (Misc Panel) 164H CBC/BMP Laboratory Tests 01/21/21 05:46 Microbiology Microbiology 01/19/21 Gram Stain - Final, Resulted 01/19/21 Body Fluid Culture, Resulted Pending 01/19/21 Acid Fast Stain, Received Pending 01/19/21 Mycobacterial Culture, Received Pending 01/19/21 Fungal Smear, Received Pending 01/19/21 Fungal Culture, Received Pending SUSANNAH HUYNH 11, 2021 18:14
[2021-01-21] MEDS: ONDANSETRON 4MG/2ML VIAL IV PRN (19:53)
[2021-01-21] MEDS: allopurinoL 100 MG TAB PO SCH (21:00)
[2021-01-21 22:00] VITALS: BP 157/80
[2021-01-22] MEDS: traMADol 50 MG TAB PO PRN (02:50)
[2021-01-22] MEDS: HEPARIN SOD (PORCINE) 5000UNITS/ML 1ML VIAL/SYRINGE SC SCH ×3 (05:27→21:45)
[2021-01-22 06:00] VITALS: BP 151/81
[2021-01-22 06:33] LABS: HEMATOCRIT 32.7 % (36.0-47.0); HEMOGLOBIN 10.4 g/dl (12.0-15.5); MEAN CORPUSCULAR HEMOGLOBIN 31.1 pg (27.0-33.0); MEAN CORPUSCULAR HGB CONC 31.8 g/dl (32.0-36.5); MEAN CORPUSCULAR VOLUME 97.9 fl (80.0-96.0); PLATELET COUNT, AUTOMATED 117 10^3/uL (150-450); RED BLOOD COUNT 3.34 10^6/uL (4.00-5.40); WHITE BLOOD COUNT 4.8 10^3/uL (4.0-10.0)
[2021-01-22 06:52] LABS: CALCIUM LEVEL 8.5 MG/DL (8.8-10.2); CREATININE FOR GFR 1.07 MG/DL (0.55-1.30); GLOMERULAR FILTRATION RATE 55.1 (>45); MAGNESIUM LEVEL 1.6 MG/DL (1.8-2.4); POTASSIUM SERUM 4.2 MEQ/L (3.5-5.1)
--- NOTE | 2021-01-22 08:11 | IPN ---
PROGRESS NOTE DATE: 01/21/2021 Ms. Ngo is seen this morning on her bedside. She had paracentesis yesterday, and her abdominal bloating and distention have improved. She still feels edematous and somewhat short of breath with exertion. She denies any nausea or vomiting. PHYSICAL EXAMINATION: Temperature 98 degrees Fahrenheit, heart rate 103 per minute, respiratory rate 18 per minute, blood pressure 164/84 mmHg, and oxygen saturation 98% on room air. Head is atraumatic. Neck supple, and jugular venous distention (JVD) about 8 cm above sternal angle. She has no oral thrush or ulcers. Heart sounds are tachycardic but improved. Lungs with slightly diminished breath sounds. Abdomen distended, obese, and nontender. Abdominal wall edema is present. Bowel sounds are normal. Extremities without any cyanosis or clubbing. Lower extremity edema is still at least 2+. Neurologically, she is awake, alert, and oriented times three. Today's labs show WBC count 5.5, hemoglobin 10.7, hematocrit 33.9, platelets 148. Sodium 141, potassium 4.6, chloride 108, CO2 of 30, BUN 14, and creatinine 1.07. Total protein 6.4 and albumin 2.5. PROBLEMS: 1. Generalized anasarca and ascites, most likely related to chronic liver disease with cirrhosis and otherwise albumin. She seems quite hypervolemic, and I am going to double up on her diuretics with increasing the dose of bumetanide to 1 mg twice a day and spironolactone 25 mg twice a day. She should remain on low-sodium diet and fluid restriction of about 1500 mL per day. 2. Chronic kidney disease. Kidney function is stable at about baseline so far, and we will see how she does with aggressive diuresis. 3. Anemia. Her anemia is mild and stable and does not need any intervention. 4. Cirrhosis of liver with recurrent ascites. Patient just had paracentesis done yesterday and still has some ascites present. At this point, there is no need for further paracentesis right away. We hope that with increased diuretic dose, we will be able to extend her paracentesis-free period to at least a couple of weeks.
[2021-01-22] MEDS: MAG SULF 1GM/100ML (MAG RUN) 1 GM in IV 1 EA IV SCH ×2 (08:32→09:43)
[2021-01-22] MEDS: OMEPRAZOLE 20 MG CAP PO SCH (08:33)
[2021-01-22] MEDS: MAGNESIUM OXIDE 400MG TAB (MAG-OX) PO SCH ×2 (08:33→21:44)
[2021-01-22] MEDS: GABAPENTIN 300 MG CAP PO SCH ×2 (08:33→21:38)
[2021-01-22] MEDS: ONDANSETRON 4MG/2ML VIAL IV PRN ×2 (08:33→14:02)
[2021-01-22] MEDS: BUMETANIDE 1 MG TAB PO SCH ×2 (08:33→16:59)
[2021-01-22] MEDS: HumaLOG INSULIN (NovoLOG) PER UNIT SC SCH ×4 (08:33→21:00)
[2021-01-22] MEDS: SPIRONOLACTONE 25 MG TAB PO SCH ×2 (08:34→16:58)
[2021-01-22] MEDS: LACTULOSE 20 GM/30 ML SYRUP UD PO SCH ×3 (08:34→21:38)
[2021-01-22] MEDS: DOCUSATE SODIUM 100MG CAPSULE PO SCH ×2 (08:34→21:38)
[2021-01-22] MEDS: CARVedilol 3.125 MG TAB PO SCH ×2 (08:37→21:43)
[2021-01-22] MEDS: SUCRALFATE 1 GM TAB PO SCH ×3 (12:12→21:44)
--- NOTE | 2021-01-22 12:44 | IPNPDOC ---
Subjective Date Seen The patient was seen on 01/22/21. Subjective Chief Complaint/HPI Mrs. Ngo is a 65 year old female with CAMPBELL cirrhosis who presents with increased abdominal distension. She had nausea again and vomited twice. Nursing reports that there is solid chunks in vomit. Otherwise, denies chest pain and breathing improved after paracentesis. Objective Physical Examination General Exam: Positive: Alert, Cooperative Eye Exam: Positive: EOMI; Negative: Sclera icteric Neck Exam: Positive: Supple Chest Exam: Positive: Clear to auscultation Heart Exam: Positive: Tachycardic, Regular Rhythm Abdomen Exam: Positive: Normal bowel sounds, Soft; Negative: Tenderness Extremity Exam: Positive: Edema (bilateral pitting) Neuro Exam: Positive: Normal Speech Psych Exam: Positive: Anxiety Assessment /Plan Assessment Mrs. Ngo is a 65 year old female with CAMPBELL cirrhosis who presents with CAMPBELL cirrhosis and ascites. On 01/20/2021, she was taken to IR for paracentesis. Drained 2.4L of yellow fluid. Absolute PMN was 16.9 which is not suggestive of SBP. Fluid stains pending. SAAG was 2.1 suggestive of portal hypertension. Otherwise, she is being diuresed with Bumex and spironolactone. She has been having nausea with vomiting of solid chunks of food. Will try a combination of PPI and Carafate. Plan/VTE VTE Prophylaxis Ordered?: Yes Plan 1. CAMPBELL cirrhosis with portal hypertension and ascites Drained 2.4L of yellow fluid. Absolute PMN was 16.9 which is not suggestive of SBP. Fluid stains pending. SAAG was 2.1 suggestive of portal hypertension Nephrology following, recommendations appreciated Increased spironolactone and Bumex -Added 2gm sodium diet and 1500mL fluid restriction Child Callejas score 9, which would correlate with class B 2. Chronic kidney disease stage III Creatinine around baseline at 1.1 Supportive care and avoid nephrotoxic agents Nephrology following, recommendations appreciated 3. 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 Gout Continue allopurinol 5. Morbid obesity BMI of 37.7 6. Hypertension Started Coreg 7. GERD Continue omeprazole 8. DVT prophylaxis Heparin subcutaneous Disposition: Pending improvement in fluid status and N/V VS, I&O, 24H, Fishbone Vital Signs/I&O Vital Signs Date Time Temp Pulse Resp B/P (MAP) Pulse Ox O2 Delivery O2 Flow Rate FiO2 01/22/21 08:37 98 145/72 01/22/21 06:00 97.8 18 96 Room Air I&O- Last 24 Hours up to 6 AM 01/22/21 06:00 Intake Total 935 ml Output Total 2850 ml Balance -1915 ml Laboratory Data 24H LABS Laboratory Tests 2 01/21/21 16:40: Bedside Glucose (Misc Panel) 164H 01/21/21 20:17: Bedside Glucose (Misc Panel) 171H 01/22/21 05:20: Nucleated Red Blood Cells % (auto) 0.0, Anion Gap 5L, Glomerular Filtration Rate 55.1, Calcium Level 8.5L, Magnesium Level 1.6L 01/22/21 05:25: Bedside Glucose (Misc Panel) 161H 01/22/21 11:58: Bedside Glucose (Misc Panel) 222H CBC/BMP Laboratory Tests 01/22/21 05:20 Microbiology Microbiology 01/19/21 Gram Stain - Final, Complete 01/19/21 Body Fluid Culture - Final, Complete 01/19/21 Acid Fast Stain, Received Pending 01/19/21 Mycobacterial Culture, Received Pending 01/19/21 Fungal Smear, Received Pending 01/19/21 Fungal Culture, Received Pending SUSANNAH HUYNH 12, 2021 12:44
[2021-01-22 14:00] VITALS: BP 108/64
[2021-01-22] MEDS ORDERED: ONDANSETRON 4MG/2ML VIAL IV ONE (18:40)
[2021-01-22] MEDS: allopurinoL 100 MG TAB PO SCH (21:44)
[2021-01-22 22:00] VITALS: BP 151/68
[2021-01-23] MEDS: HEPARIN SOD (PORCINE) 5000UNITS/ML 1ML VIAL/SYRINGE SC SCH ×2 (05:46→14:41)
[2021-01-23 06:00] VITALS: BP 140/62
[2021-01-23 06:42] LABS: HEMATOCRIT 31.7 % (36.0-47.0); HEMOGLOBIN 10.2 g/dl (12.0-15.5); MEAN CORPUSCULAR HEMOGLOBIN 31.3 pg (27.0-33.0); MEAN CORPUSCULAR HGB CONC 32.2 g/dl (32.0-36.5); MEAN CORPUSCULAR VOLUME 97.2 fl (80.0-96.0); PLATELET COUNT, AUTOMATED 118 10^3/uL (150-450); RED BLOOD COUNT 3.26 10^6/uL (4.00-5.40); WHITE BLOOD COUNT 4.6 10^3/uL (4.0-10.0)
[2021-01-23 07:02] LABS: CALCIUM LEVEL 8.4 MG/DL (8.8-10.2); CREATININE FOR GFR 1.26 MG/DL (0.55-1.30); GLOMERULAR FILTRATION RATE 45.7 (>45); MAGNESIUM LEVEL 1.5 MG/DL (1.8-2.4); POTASSIUM SERUM 4.2 MEQ/L (3.5-5.1)
[2021-01-23] MEDS: HumaLOG INSULIN (NovoLOG) PER UNIT SC SCH ×4 (08:00→21:00)
[2021-01-23] MEDS: BUMETANIDE 1 MG TAB PO SCH ×2 (08:01→17:13)
[2021-01-23] MEDS: LACTULOSE 20 GM/30 ML SYRUP UD PO SCH ×2 (08:01→15:09)
[2021-01-23] MEDS: MAGNESIUM OXIDE 400MG TAB (MAG-OX) PO SCH (08:01)
[2021-01-23] MEDS: MAG SULF 1GM/100ML (MAG RUN) 1 GM in IV 1 EA IV SCH ×2 (08:01→08:09)
[2021-01-23] MEDS: GABAPENTIN 300 MG CAP PO SCH (08:01)
[2021-01-23] MEDS: SUCRALFATE 1 GM TAB PO SCH ×3 (08:01→17:13)
[2021-01-23] MEDS: SPIRONOLACTONE 25 MG TAB PO SCH ×2 (08:02→17:13)
[2021-01-23] MEDS: OMEPRAZOLE 20 MG CAP PO SCH (08:02)
[2021-01-23] MEDS: CARVedilol 3.125 MG TAB PO SCH (08:04)
[2021-01-23] MEDS: DOCUSATE SODIUM 100MG CAPSULE PO SCH (08:04)
[2021-01-23 14:00] VITALS: BP 132/62
--- NOTE | 2021-01-23 14:56 | IPNPDOC ---
Subjective Date Seen The patient was seen on 01/23/21. Subjective Chief Complaint/HPI Mrs. Ngo is a 65 year old female with CAMPBELL cirrhosis who presents with increased abdominal distension. She was seen this morning. Today, the nausea is better controlled. Denies chest pain or worsening dyspnea. Spoke with nephrology. Patient is still too fluid overloaded. continue with diuresis. Objective Physical Examination General Exam: Positive: Alert, Cooperative Eye Exam: Positive: EOMI; Negative: Sclera icteric Neck Exam: Positive: Supple Chest Exam: Positive: Clear to auscultation Heart Exam: Positive: Tachycardic, Regular Rhythm Abdomen Exam: Positive: Normal bowel sounds, Soft; Negative: Tenderness Extremity Exam: Positive: Edema (bilateral pitting) Neuro Exam: Positive: Normal Speech Psych Exam: Positive: Anxiety Assessment /Plan Assessment Mrs. Ngo is a 65 year old female with CAMPBELL cirrhosis who presents with CAMPBELL cirrhosis and ascites. On 01/20/2021, she was taken to IR for paracentesis. Drained 2.4L of yellow fluid. Absolute PMN was 16.9 which is not suggestive of SBP. Fluid stains pending. SAAG was 2.1 suggestive of portal hypertension. Otherwise, she is being diuresed with Bumex and spironolactone. She has been having nausea with vomiting of solid chunks of food. Nausea better controlled today. Continue PPI and Carafate. Plan/VTE VTE Prophylaxis Ordered?: Yes Plan 1. CAMPBELL cirrhosis with portal hypertension and ascites Drained 2.4L of yellow fluid. Absolute PMN was 16.9 which is not suggestive of SBP. Fluid stains pending. SAAG was 2.1 suggestive of portal hypertension Nephrology following, recommendations appreciated On increased spironolactone and Bumex -Added 2gm sodium diet and 1500mL fluid restriction Child Callejas score 9, which would correlate with class B 2. Chronic kidney disease stage III Creatinine around baseline at 1.1 Supportive care and avoid nephrotoxic agents Nephrology following, recommendations appreciated 3. 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 Gout Continue allopurinol 5. Morbid obesity BMI of 37.7 6. Hypertension Started Coreg 7. GERD Continue omeprazole 8. DVT prophylaxis Heparin subcutaneous Disposition: Pending improvement in fluid status VS, I&O, 24H, Fishbone Vital Signs/I&O Vital Signs Date Time Temp Pulse Resp B/P (MAP) Pulse Ox O2 Delivery O2 Flow Rate FiO2 01/23/21 14:00 97.9 87 17 132/62 (85) 89 Room Air I&O- Last 24 Hours up to 6 AM 01/23/21 06:00 Intake Total 1980 ml Output Total 3900 ml Balance -1920 ml Laboratory Data 24H LABS Laboratory Tests 2 01/22/21 17:18: Bedside Glucose (Misc Panel) 141H 01/22/21 20:11: Bedside Glucose (Misc Panel) 161H 01/23/21 05:52: Nucleated Red Blood Cells % (auto) 0.0, Anion Gap 3L, Glomerular Filtration Rate 45.7, Calcium Level 8.4L, Magnesium Level 1.5L 01/23/21 06:14: Bedside Glucose (Misc Panel) 222H 01/23/21 11:26: Bedside Glucose (Misc Panel) 203H CBC/BMP Laboratory Tests 01/23/21 05:52 Microbiology Microbiology 01/19/21 Gram Stain - Final, Complete 01/19/21 Body Fluid Culture - Final, Complete 01/19/21 Acid Fast Stain, Received Pending 01/19/21 Mycobacterial Culture, Received Pending 01/19/21 Fungal Smear, Received Pending 01/19/21 Fungal Culture, Received Pending SUSANNAH HUYNH 13, 2021 14:53
--- NOTE | 2021-01-23 19:14 | IPN ---
NEPHROLOGY PROGRESS NOTE DATE: 01/23/2021 SUBJECTIVE: Patient was seen and examined at the bedside today morning. She is afebrile, hemodynamically stable. She reports her lower extremity edema is getting better. She continues to be on diuretics and diuresing well. Renal function is stable. She denies any other active complaints. OBJECTIVE: VITAL SIGNS: Temperature 97.9 degrees Fahrenheit, blood pressure 132/62, pulse 87, respiratory rate 17, saturating 89% on room air. INTAKE AND OUTPUT: Urine output recorded as 3.9 liters yesterday and 2 liters so far today since overnight. Weight in the bed scale is not available. PHYSICAL EXAMINATION: GENERAL: Patient is awake, alert, oriented x3, obese body habitus, laying in bed. HEAD/NECK: Extraocular muscles intact. She has periorbital edema. Mucous membranes are moist. Neck is supple. She has mildly elevated JVD. CARDIOVASCULAR: S1, S2, regular rate. 2+ edema of the bilateral lower extremities. RESPIRATORY: Chest is clear to auscultation bilaterally. Bilateral equal air entry. No rales or rhonchi. ABDOMEN: Soft, positive bowel sounds. She has abdominal wall edema. Mild amount of ascites is also noted. MUSCULOSKELETAL: Edema of the bilateral lower extremities as mentioned above. TUB ATTENDANT: No focal deficit. Power is 5/5 in all extremities. LABORATORY REVIEW: CBC showed WBC 4.6, hemoglobin 10.2, platelets 118,000. BMP showed sodium 138, potassium 4.2, chloride 101, bicarb 34, BUN 14, creatinine 1.2; it was 1 yesterday. Magnesium 1.5. CURRENT INPATIENT MEDICATIONS: Patient's medications were all reviewed by myself. She was given Mag Sulfate I.V. today morning. She continues to be on Bumex 1 mg p.o. twice a day along with Spironolactone 25 mg p.o. twice a day. No other significant change in the medications. ASSESSMENT AND PLAN: 1. Cirrhosis with generalized anasarca: Patient continues to be on Bumex and Spironolactone. Continue fluid restriction. She is having a good urine output. Monitor daily intake and output. 2. Chronic kidney disease stage 3: Patient is diuresing well and despite that, her renal function is stable, close to her baseline. Creatinine has been around 1.2. Continue to monitor for now. 3. Liver cirrhosis with ascites: Patient got the ascitic tap done on January 20. Continue diuretics as mentioned above. Continue lactulose. Coreg would help with portal hypertension as well. 4. Chronic gout secondary to chronic kidney disease: Continue Allopurinol 100 mg p.o. daily.
[2021-01-23] MEDS: ONDANSETRON 4MG/2ML VIAL IV PRN (20:54)
[2021-01-23 22:00] VITALS: BP 155/74
[2021-01-23] MEDS ORDERED: PROMETHAZINE INJ 25 MG/ML VIAL (J2550) IV PRN (22:50)
[2021-01-24] MEDS: allopurinoL 100 MG TAB PO SCH ×2 (00:35→20:57)
[2021-01-24] MEDS: SUCRALFATE 1 GM TAB PO SCH ×5 (00:39→20:56)
[2021-01-24] MEDS: CARVedilol 3.125 MG TAB PO SCH ×4 (00:39→20:58)
[2021-01-24] MEDS: MAGNESIUM OXIDE 400MG TAB (MAG-OX) PO SCH ×3 (00:39→20:57)
[2021-01-24] MEDS: GABAPENTIN 300 MG CAP PO SCH ×3 (00:39→20:56)
[2021-01-24] MEDS: LACTULOSE 20 GM/30 ML SYRUP UD PO SCH ×4 (00:39→20:56)
[2021-01-24] MEDS: HEPARIN SOD (PORCINE) 5000UNITS/ML 1ML VIAL/SYRINGE SC SCH ×4 (00:40→21:01)
[2021-01-24] MEDS: DOCUSATE SODIUM 100MG CAPSULE PO SCH ×4 (00:40→20:57)
[2021-01-24 06:00] VITALS: BP 111/53
[2021-01-24 06:43] LABS: HEMATOCRIT 31.5 % (36.0-47.0); HEMOGLOBIN 10.3 g/dl (12.0-15.5); MEAN CORPUSCULAR HEMOGLOBIN 31.6 pg (27.0-33.0); MEAN CORPUSCULAR HGB CONC 32.7 g/dl (32.0-36.5); MEAN CORPUSCULAR VOLUME 96.6 fl (80.0-96.0); PLATELET COUNT, AUTOMATED 115 10^3/uL (150-450); RED BLOOD COUNT 3.26 10^6/uL (4.00-5.40); WHITE BLOOD COUNT 6.7 10^3/uL (4.0-10.0)
[2021-01-24 07:16] LABS: CALCIUM LEVEL 8.6 MG/DL (8.8-10.2); CREATININE FOR GFR 1.24 MG/DL (0.55-1.30); GLOMERULAR FILTRATION RATE 46.5 (>45); MAGNESIUM LEVEL 1.7 MG/DL (1.8-2.4)
[2021-01-24] MEDS: SPIRONOLACTONE 25 MG TAB PO SCH ×2 (08:13→17:00)
[2021-01-24] MEDS: HumaLOG INSULIN (NovoLOG) PER UNIT SC SCH ×4 (08:13→20:48)
[2021-01-24] MEDS: OMEPRAZOLE 20 MG CAP PO SCH (08:16)
[2021-01-24] MEDS: BUMETANIDE 1 MG TAB PO SCH (08:16)
[2021-01-24] MEDS: MAG SULF 1GM/100ML (MAG RUN) 1 GM in IV 1 EA IV SCH ×2 (08:18→08:20)
[2021-01-24 14:00] VITALS: BP 131/52
--- NOTE | 2021-01-24 14:16 | IPNPDOC ---
Subjective Date Seen The patient was seen on 01/24/21. Subjective Chief Complaint/HPI rs. Ngo is a 65 year old female with CAMPBELL cirrhosis who presents with increased abdominal distension. Last evening, she woke up due to nausea and vomited several times. She ate dinner around 8. Otherwise, she tolerated breakfast and lunch. Denies chest pain or dyspnea. Objective Physical Examination General Exam: Positive: Alert, Cooperative Eye Exam: Positive: EOMI; Negative: Sclera icteric Neck Exam: Positive: Supple Chest Exam: Positive: Clear to auscultation Heart Exam: Positive: Tachycardic, Regular Rhythm Abdomen Exam: Positive: Normal bowel sounds, Soft; Negative: Tenderness Extremity Exam: Positive: Edema (bilateral pitting) Neuro Exam: Positive: Normal Speech Psych Exam: Positive: Anxiety Assessment /Plan Assessment Mrs. Ngo is a 65 year old female with CAMPBELL cirrhosis who presents with CAMPBELL cirrhosis and ascites. On 01/20/2021, she was taken to IR for paracentesis. Drained 2.4L of yellow fluid. Absolute PMN was 16.9 which is not suggestive of SBP. Fluid stains pending. SAAG was 2.1 suggestive of portal hypertension. Otherwise, she is being diuresed with Bumex and spironolactone. She has been having nausea with vomiting, but does not seem to be associated with food. She has been having N/V occasionally at home as well. Continue PPI and Carafate. Plan/VTE VTE Prophylaxis Ordered?: Yes Plan 1. CAMPBELL cirrhosis with portal hypertension and ascites Drained 2.4L of yellow fluid. Absolute PMN was 16.9 which is not suggestive of SBP. Fluid stains pending. SAAG was 2.1 suggestive of portal hypertension Nephrology following, recommendations appreciated On increased spironolactone and Bumex -Added 2gm sodium diet and 1500mL fluid restriction Child Callejas score 9, which would correlate with class B 2. Chronic kidney disease stage III Creatinine around baseline at 1.1 Supportive care and avoid nephrotoxic agents Nephrology following, recommendations appreciated 3. 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 Gout Continue allopurinol 5. Morbid obesity BMI of 37.7 6. Hypertension Started Coreg 7. GERD Continue omeprazole 8. DVT prophylaxis Heparin subcutaneous Disposition: Nephrology following, recommendations appreciated. Pending improvement of volume status VS, I&O, 24H, [place]ia Vital Signs/I&O Vital Signs Date Time Temp Pulse Resp B/P (MAP) Pulse Ox O2 Delivery O2 Flow Rate FiO2 01/24/21 08:22 85 116/70 01/24/21 06:00 98.9 18 92 Room Air I&O- Last 24 Hours up to 6 AM 01/24/21 06:00 Intake Total 830 ml Output Total 2550 ml Balance -1720 ml Laboratory Data 24H LABS Laboratory Tests 2 01/23/21 16:24: Bedside Glucose (Misc Panel) 170H 01/23/21 20:47: Bedside Glucose (Misc Panel) 228H 01/24/21 05:50: Nucleated Red Blood Cells % (auto) 0.0, Anion Gap 3L, Glomerular Filtration Rate 46.5, Calcium Level 8.6L, Magnesium Level 1.7L 01/24/21 11:27: Bedside Glucose (Misc Panel) 189H CBC/BMP Laboratory Tests 01/24/21 05:50 Microbiology Microbiology 01/19/21 Gram Stain - Final, Complete 01/19/21 Body Fluid Culture - Final, Complete 01/19/21 Acid Fast Stain, Received Pending 01/19/21 Mycobacterial Culture, Received Pending 01/19/21 Fungal Smear, Received Pending 01/19/21 Fungal Culture, Received Pending SUSANNAH HUYNH 14, 2021 14:16
--- NOTE | 2021-01-24 21:49 | IPN ---
PROGRESS NOTE DATE: 01/24/2021 SUBJECTIVE: Patient was seen and examined at the bedside today morning. She was slightly drowsy when I saw her in the morning, she was sitting up in the sofa. I was told by the nursing staff that patient was having dry heaves yesterday and she had some episodes of vomiting. She is slightly alkalotic today. She continues to be on diuretics. Lower extremity edema is improving. OBJECTIVE: Vital signs: Temperature is 97.7 degrees Fahrenheit, blood pressure 131/52, pulse is 84, respiratory rate of 19, saturating 91% on room air. Intake and output: Urine output recorded is 2.4 liters yesterday, 1.7 liters so far today since overnight. Weight in the bed scale is 98.8 kg. PHYSICAL EXAMINATION: General: Patient is sitting up in the bed, slightly drowsy. Head and neck exam: Extraocular muscles intact. Pupils equally round and reactive to light. Mild facial edema was noted. Mucous membranes are moist. Neck is supple. There is no significant jugular venous distension (JVD). Cardiovascular: S1, S2, regular rate. 2+ edema of the bilateral lower extremities. Respiratory: Chest is clear to auscultation bilaterally. Bilateral equal air entry. No rales or rhonchi. Abdomen: Soft, positive bowel sounds, abdominal wall edema was noted. Musculoskeletal: Edema of the lower extremities, otherwise no clubbing or cyanosis. 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 Power is 5/5 in all extremities. LABORATORY REVIEW: CBC showed WBC of 6.7, hemoglobin 10.3, platelets are 115. BMP showed sodium 138, potassium 4, chloride 99, bicarbonate 36, BUN 13, creatinine is 1.24, it was 1.26 yesterday, magnesium is 1.7. CURRENT INPATIENT MEDICATIONS: Patient's medications were all reviewed by myself. She was on Bumex 1 mg by mouth twice a day, I have decreased the dose to 1 mg by mouth daily. She continues to be on spironolactone 25 mg by mouth twice a day. ASSESSMENT AND PLAN: 1. Cirrhosis with generalized anasarca. Patient is diuresing well with Bumex and spironolactone, however she was having dry heaves and vomiting yesterday and she is alkalotic. I am decreasing the dose of Bumex to once a day. Continue spironolactone 25 mg by mouth twice a day. 2. Chronic kidney disease stage III. Patient's renal function is stable. However, diuretics are being decreased as mentioned above. She has history of hemodialysis on a previous hospitalization. 3. Liver cirrhosis with ascites. Last ascitic tap was done on 01/20/2021. Diuretic regimen is as above. Continue Coreg for portal hypertension. 4. Chronic gout secondary to chronic kidney disease. Continue current dose of allopurinol. 5. Metabolic alkalosis. Diuretic dose has been decreased. Hopefully that should help improve the alkalosis now.
[2021-01-24 22:00] VITALS: BP 131/69
[2021-01-24] MEDS: traMADol 50 MG TAB PO PRN (22:39)
[2021-01-25] MEDS: HEPARIN SOD (PORCINE) 5000UNITS/ML 1ML VIAL/SYRINGE SC SCH ×3 (05:29→20:55)
[2021-01-25 05:47] LABS: HEMATOCRIT 30.8 % (36.0-47.0); HEMOGLOBIN 9.9 g/dl (12.0-15.5); MEAN CORPUSCULAR HEMOGLOBIN 30.8 pg (27.0-33.0); MEAN CORPUSCULAR HGB CONC 32.1 g/dl (32.0-36.5); PLATELET COUNT, AUTOMATED 107 10^3/uL (150-450); RED BLOOD COUNT 3.21 10^6/uL (4.00-5.40)
[2021-01-25 06:00] VITALS: BP_SYST 103; BP_DIAS 50; BP_DIAS 54
[2021-01-25 06:10] LABS: CALCIUM LEVEL 8.1 MG/DL (8.8-10.2); CREATININE FOR GFR 1.44 MG/DL (0.55-1.30); GLOMERULAR FILTRATION RATE 39.1 (>45)
[2021-01-25 08:15] VITALS: BP 104/51
[2021-01-25] MEDS: DOCUSATE SODIUM 100MG CAPSULE PO SCH ×2 (09:00→20:52)
[2021-01-25] MEDS ORDERED: BUMETANIDE 1 MG TAB PO SCH (09:00)
[2021-01-25] MEDS: HumaLOG INSULIN (NovoLOG) PER UNIT SC SCH ×4 (09:02→20:39)
[2021-01-25] MEDS: traMADol 50 MG TAB PO PRN ×2 (09:03→16:41)
[2021-01-25] MEDS: ONDANSETRON 4MG/2ML VIAL IV PRN (09:03)
--- NOTE | 2021-01-25 09:12 | IPN ---
NEPHROLOGY PROGRESS NOTE DATE: 01/22/2021 SUBJECTIVE: Ms. Ngo is seen this morning on her bedside. She is laying in the bed without any acute distress. She reports that she was up earlier in the chair. She denies any nausea, vomiting, dyspnea or chest pain. She feels that she urinated more than compared to the day before yesterday since her diuretic dose was increased. INTAKE AND OUTPUT: Records from yesterday show a negative fluid balance of about 1275 mL. She was not weighed today, but yesterday she weighed 93.1 kg, compared to 100.7 kg on admission. PHYSICAL EXAMINATION: Temperature 97.8 degrees Fahrenheit, heart rate 90 per minute, respiratory rate 18 per minute, blood pressure 145/72 mmHg, oxygen saturation 96% on room air. HEAD: Atraumatic. NECK: Supple and jugular venous distention (JVD) is about 5-6 cm above sternal angle. LUNGS: With a few rales and slightly diminished breath sounds. HEART SOUNDS: Regular and without a pericardial friction rub. ABDOMEN: Distended with ascites. Bowel sounds are present. There is no palpable organomegaly. EXTREMITIES: Have no cyanosis or clubbing. Lower extremity edema is still 1+ to 2+ NEUROLOGIC: She has no focal deficits. LABORATORY STUDIES: Today's labs show WBC 4.8, hemoglobin 10.4, hematocrit 32.7, platelets 117. Sodium 142, potassium 4.2, CO2 31, BUN 13, creatinine 1.07, calcium 8.5, magnesium 1.6. PROBLEMS: 1. Hypervolemia with anasarca and ascites. Patient is still hypervolemic and we will continue with increased dose of bumetanide. She was about 1300 mL in negative fluid balance yesterday and seems to be heading for a negative fluid balance again today. Her blood pressure is somewhat low today, so I will not increase the diuretic any further. 2. Cirrhosis of liver with recurrent ascites. Patient had paracentesis done since admission and ascites has improved. It is quite possible that she will require another paracentesis in a few days. 3. Chronic kidney disease. Her kidney function is stable at present and electrolytes are normal. 4. Anemia. Mild anemia is stable and does not need any urgent intervention.
[2021-01-25 09:35] VITALS: BP 101/46
[2021-01-25 09:45] VITALS: BP 101/46
[2021-01-25] MEDS: SPIRONOLACTONE 25 MG TAB PO SCH ×2 (09:56→16:42)
[2021-01-25] MEDS: GABAPENTIN 300 MG CAP PO SCH ×2 (09:56→20:52)
[2021-01-25] MEDS: OMEPRAZOLE 20 MG CAP PO SCH (09:56)
[2021-01-25] MEDS: MAGNESIUM OXIDE 400MG TAB (MAG-OX) PO SCH ×2 (09:58→20:53)
[2021-01-25] MEDS: SUCRALFATE 1 GM TAB PO SCH ×4 (09:58→20:52)
[2021-01-25] MEDS: LACTULOSE 20 GM/30 ML SYRUP UD PO SCH ×3 (10:00→20:53)
[2021-01-25] MEDS: CARVedilol 3.125 MG TAB PO SCH ×2 (11:05→20:54)
[2021-01-25 14:00] VITALS: BP 113/53
--- NOTE | 2021-01-25 16:05 | IPNPDOC ---
Subjective Date Seen The patient was seen on 01/25/21. Subjective Chief Complaint/HPI Mrs. Ngo is a 65 year old female with CAMPBELL cirrhosis who presents with increased abdominal distension. No nausea overnight, denies chest pain or dyspnea. Spoke with nephrology today. Renal function slightly worse and she is alkalotic. Objective Physical Examination General Exam: Positive: Alert, Cooperative Eye Exam: Positive: EOMI; Negative: Sclera icteric Neck Exam: Positive: Supple Chest Exam: Positive: Clear to auscultation Heart Exam: Positive: Tachycardic, Regular Rhythm Abdomen Exam: Positive: Normal bowel sounds, Soft; Negative: Tenderness Extremity Exam: Positive: Edema (bilateral pitting) Neuro Exam: Positive: Normal Speech Psych Exam: Positive: Anxiety Assessment /Plan Assessment Mrs. Ngo is a 65 year old female with CAMPBELL cirrhosis who presents with CAMPBELL c irrhosis and ascites. On 01/20/2021, she was taken to IR for paracentesis. Drained 2.4L of yellow fluid. Absolute PMN was 16.9 which is not suggestive of SBP. Fluid stains pending. SAAG was 2.1 suggestive of portal hypertension. Otherwise, she is being diuresed with Bumex and spironolactone. She has been having nausea with vomiting, but does not seem to be associated with food. She has been having N/V occasionally at home as well. Continue PPI and Carafate. Plan/VTE VTE Prophylaxis Ordered?: Yes Plan 1. CAMPBELL cirrhosis with portal hypertension and ascites Drained 2.4L of yellow fluid. Absolute PMN was 16.9 which is not suggestive of SBP. Fluid stains pending. SAAG was 2.1 suggestive of portal hypertension Nephrology following, recommendations appreciated On increased spironolactone. Bumex reduced daily -Added 2gm sodium diet and 1500mL fluid restriction Child Callejas score 9, which would correlate with class B 2. Chronic kidney disease stage III Creatinine around baseline at 1.1 Supportive care and avoid nephrotoxic agents Nephrology following, recommendations appreciated 3. 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 Gout Continue allopurinol 5. Morbid obesity BMI of 37.7 6. Hypertension Started Coreg 7. GERD Continue omeprazole 8. DVT prophylaxis Heparin subcutaneous Disposition: Nephrology following, recommendations appreciated. Pending improvement of volume status and renal function VS, I&O, 24H, Fishbone Vital Signs/I&O Vital Signs Date Time Temp Pulse Resp B/P (MAP) Pulse Ox O2 Delivery O2 Flow Rate FiO2 01/25/21 14:00 97.8 87 18 113/53 (73) 92 Room Air I&O- Last 24 Hours up to 6 AM 01/25/21 06:00 Intake Total 1470 ml Output Total 1175 ml Balance 295 ml Laboratory Data 24H LABS Laboratory Tests 2 01/24/21 16:42: Bedside Glucose (Misc Panel) 242H 01/24/21 20:25: Bedside Glucose (Misc Panel) 235H 01/25/21 05:29: Nucleated Red Blood Cells % (auto) 0.0, Anion Gap 3L, Glomerular Filtration Rate 39.1L, Calcium Level 8.1L 01/25/21 12:27: Bedside Glucose (Misc Panel) 213H CBC/BMP Laboratory Tests 01/25/21 05:29 Microbiology Microbiology 01/19/21 Gram Stain - Final, Complete 01/19/21 Body Fluid Culture - Final, Complete 01/19/21 Acid Fast Stain, Received Pending 01/19/21 Mycobacterial Culture, Received Pending 01/19/21 Fungal Smear, Received Pending 01/19/21 Fungal Culture, Received Pending SUSANNAH HUYNH 15, 2021 16:05
[2021-01-25] MEDS: allopurinoL 100 MG TAB PO SCH (20:52)
--- NOTE | 2021-01-25 21:09 | IPN ---
NEPHROLOGY PROGRESS NOTE DATE: 01/25/2021 SUBJECTIVE: The patient was seen and examined at the bedside today morning. She is afebrile, hemodynamically stable. Her edema is getting better. She is much more awake and alert today. There is a slight bump in the creatinine today from 1.2 to 1.4. Her diuretic dose was already decreased yesterday. OBJECTIVE: VITAL SIGNS: Temperature is 97.8 degrees Fahrenheit, blood pressure 113/53, pulse is 87, respiratory rate of 18, saturating 92% on room air. INTAKE AND OUTPUT: Urine output recorded as 1.9 liters yesterday, 750 mL so far today since overnight. Weight in the bed scale is 88.3 kg. PHYSICAL EXAMINATION: GENERAL APPEARANCE: The patient is awake, alert, oriented x3, laying in bed in no apparent distress. HEAD AND NECK: Extraocular muscles intact. Pupils are equally round and reactive to light. Mucous membranes are moist. Neck is supple. There is no jugular venous distention. CARDIOVASCULAR: S1, S2, regular rate. EXTREMITIES: 2+ edema of the bilateral lower extremities. RESPIRATORY: Chest is clear to auscultation bilaterally. Bilaterally currently no rales or rhonchi. ABDOMEN: Soft, positive bowel sounds. Mild abdominal wall edema was noted. MUSCULOSKELETAL: No clubbing, no cyanosis. Pulses are 2+. 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 Power is 5/5 in all extremities. LAB REVIEW: CBC showed a white blood cell count of 5, hemoglobin 9.9, platelet count 107. BMP showed sodium 139, potassium is 4, chloride 99, bicarbonate 37, BUN is 14, creatinine is 1.4, it was 1.2 yesterday. Calcium is 8.1. CURRENT INPATIENT MEDICATIONS: The patient's medications were all reviewed by myself. She is currently on Bumex one mg p.o. daily. Spironolactone 25 mg p.o. twice daily. ASSESSMENT AND PLAN: 1. Acute kidney injury superimposed on chronic kidney disease stage 3 - renal function is slightly worse. Bumex dose was already decreased to once a day. Continue current dose of Spironolactone. Continue to monitor daily intake and output. 2. Cirrhosis with generalized anasarca and ascites - The patient was getting alkalotic and slightly intravascularly depleted. Currently she is on Bumex one mg daily and Spironolactone 25 mg p.o. twice daily. Continue current dose. 3. Chronic gout - continue current dose of Allopurinol. 4. Metabolic alkalosis it is secondary to diuresis. If alkalosis persists, then loop diuretic dose will be further decreased tomorrow morning.
[2021-01-25 22:00] VITALS: BP 129/67
[2021-01-26] MEDS: HEPARIN SOD (PORCINE) 5000UNITS/ML 1ML VIAL/SYRINGE SC SCH (05:00)
[2021-01-26 05:55] LABS: HEMATOCRIT 30.2 % (36.0-47.0); HEMOGLOBIN 9.6 g/dl (12.0-15.5); MEAN CORPUSCULAR HEMOGLOBIN 31.3 pg (27.0-33.0); MEAN CORPUSCULAR HGB CONC 31.8 g/dl (32.0-36.5); MEAN CORPUSCULAR VOLUME 98.4 fl (80.0-96.0); PLATELET COUNT, AUTOMATED 104 10^3/uL (150-450); RED BLOOD COUNT 3.07 10^6/uL (4.00-5.40); WHITE BLOOD COUNT 4.8 10^3/uL (4.0-10.0)
[2021-01-26 06:00] VITALS: BP 112/51
[2021-01-26 06:08] LABS: CALCIUM LEVEL 8.1 MG/DL (8.8-10.2); CREATININE FOR GFR 1.54 MG/DL (0.55-1.30); GLOMERULAR FILTRATION RATE 36.2 (>45); POTASSIUM SERUM 4.4 MEQ/L (3.5-5.1)
[2021-01-26] MEDS: DOCUSATE SODIUM 100MG CAPSULE PO SCH (08:59)
[2021-01-26] MEDS: OMEPRAZOLE 20 MG CAP PO SCH (08:59)
[2021-01-26] MEDS: LACTULOSE 20 GM/30 ML SYRUP UD PO SCH (08:59)
[2021-01-26] MEDS: MAGNESIUM OXIDE 400MG TAB (MAG-OX) PO SCH (08:59)
[2021-01-26] MEDS: HumaLOG INSULIN (NovoLOG) PER UNIT SC SCH ×2 (09:00→12:59)
[2021-01-26] MEDS: SUCRALFATE 1 GM TAB PO SCH ×2 (09:00→12:59)
[2021-01-26] MEDS: GABAPENTIN 300 MG CAP PO SCH (09:00)
[2021-01-26 09:01] VITALS: BP 112/51
[2021-01-26] MEDS: CARVedilol 3.125 MG TAB PO SCH (09:01)
[2021-01-26] MEDS: traMADol 50 MG TAB PO PRN (09:05)
--- NOTE | 2021-01-26 10:11 | DS.PDOC ---
Discharge Summary General Date of Admission Jan 19, 2021 at 23:20 Date of Discharge 01/26/21 Discharge Summary HOSPITALIST DISCHARGE SUMMARY DICTATED If discharge summary is needed urgently, pls have community liaison call hypertype to stat transcribe Dr. Gonzales's DISCHARGE SUMMARY job #[id number]. Vital Signs/I&Os Vital Signs Date Time Temp Pulse Resp B/P (MAP) Pulse Ox O2 Delivery O2 Flow Rate FiO2 01/26/21 09:05 18 Room Air 01/26/21 09:01 86 112/51 01/26/21 06:00 98.2 95 I&O- Last 24 Hours up to 6 AM 01/26/21 06:00 Intake Total 1200 ml Output Total 1150 ml Balance 50 ml Laboratory Data Labs 24H Laboratory Tests 2 01/25/21 12:27: Bedside Glucose (Misc Panel) 213H 01/25/21 16:34: Bedside Glucose (Misc Panel) 177H 01/25/21 20:33: Bedside Glucose (Misc Panel) 156H 01/26/21 05:28: Nucleated Red Blood Cells % (auto) 0.0, Anion Gap 2L, Glomerular Filtration Rate 36.2L, Calcium Level 8.1L, Magnesium Level 2.0 CBC/BMP Laboratory Tests 01/26/21 05:28 FSBS Laboratory Tests Test 01/25/21 12:27 01/25/21 16:34 01/25/21 20:33 Range/Units Bedside Glucose (Misc Panel) 213 177 156 80-115 MG/DL Microbiology Microbiology 01/19/21 Gram Stain - Final, Complete 01/19/21 Body Fluid Culture - Final, Complete 01/19/21 Acid Fast Stain, Received Pending 01/19/21 Mycobacterial Culture, Received Pending 01/19/21 Fungal Smear, Received Pending 01/19/21 Fungal Culture, Received Pending Discharge Medications Scheduled Allopurinol (Allopurinol) 100 Mg Tab, 100 MG PO QHS, (Reported) Ascorbic Acid (Vitamin C) 1,000 Mg Tablet, 1,000 MG PO DAILY, (Reported) Cholecalciferol (Vitamin D3) (Vitamin D3) 1,000 Unit Tablet, 1,000 UNITS PO DAILY, (Reported) Gabapentin (Gabapentin) 300 Mg Capsule, 300 MG PO BID, (Reported) Insulin Human Lispro (Novolog) 100 U/Ml Inj, 1 DOSE SC ACHS, (Reported) PER SLIDING SCALE Lactulose (Lactulose) 10 Gm/15 Ml Solution, 30 ML PO TID, (Reported) Levothyroxine Sodium (Levothyroxine Sodium) 25 Mcg Tablet, 25 MCG PO DAILY, (Reported) Magnesium Oxide (Magnesium Oxide) 400 Mg Tablet, 800 MG PO BID, (Reported) Omeprazole (Omeprazole) 40 Mg Capsule.dr, 40 MG PO DAILY, (Reported) Spironolactone (Spironolactone) 25 Mg Tablet, 25 MG PO DAILY, (Reported) Scheduled PRN Albuterol Sulfate (Ventolin Hfa) 18 Gm Hfa.aer.ad, 2 PUFF INH Q4H PRN for SHORTNESS OF BREATH, (Reported) Tizanidine HCl (Tizanidine HCl) 2 Mg Tablet, 2 MG PO TID PRN for MUSCLE SPASMS, (Reported) Allergies Coded Allergies: No Known Drug Allergies (Verified Allergy, Unknown, 01/19/21) LEVI GONZALES MD Jan 26, 2021 10:04
--- NOTE | 2021-01-26 11:23 | DSES ---
DISCHARGE SUMMARY DATE OF ADMISSION: 01/19/2021 DATE OF DISCHARGE: 01/26/2021 CONSULTANTS: Nephrologists, Dr. Manuel Gleason and Dr. Chago Ling. PRIMARY DISCHARGE DIAGNOSES: 1. Decompensated liver cirrhosis with ascites. 2. Acute kidney injury superimposed on chronic kidney disease stage 3. 3. Liver cirrhosis with anasarca and ascites. 4. Chronic gout. 5. Metabolic alkalosis secondary to diuresis. 6. 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 7. Type 2 diabetes with peripheral neuropathy. 8. Chronic gout. 9. Morbid obesity, body mass index of 37.7. 10. Gastroesophageal reflux disease. 11. Hypertension. DISCHARGE MEDICATIONS: 1. Spironolactone 25 mg daily. 2. Albuterol two puffs every 4 hours as needed. 3. Allopurinol 100 at nighttime. 4. Vitamin C 1000 mg daily. 5. Vitamin D3 1000 units daily. 6. Gabapentin 300 twice daily. 7. Lispro every before meals and at bedtime. 8. Lactulose 30 mL PO three times a day. 9. Synthroid 25 mcg daily. 10. Mag-Ox 800 mg twice daily. 11. Omeprazole 40 daily. 12. Tizanidine 2 mg three times a day as needed. HOSPITAL COURSE: This is a 65-year-old female admitted on 01/19/2021 with past medical history significant for non-alcoholic steatohepatitis-induced liver cirrhosis with esophageal variceal banding upper GI bleed, reflux, CKD stage 3, diverticulitis, insulin-dependent diabetes with diabetic nephropathy, hypertension, hypothyroidism, psoriatic arthritis, presented to the emergency room with abdominal distention, lower extremity edema with pain and weight gain. The patient was found to have abdominal ascites with decompensated liver cirrhosis and admitted for diuresis. The patient was given Ceftriaxone for prophylaxis for ascites. Ichthyologist, Dr. Gleason was consulted to assist in management of diuresis. The patient's admission weight was 100.7 kilos, discharge weight 91.1 kg. The patient's creatinine peaked at 1.5 while on Bumex. She was kept at negative balance by nephrology, Dr. Gleason and then subsequently Sushil with episodes of electrolyte abnormalities, given magnesium and potassium as supplements. The patient's blood pressure was well maintained with systolic pressure 112-129. She had no complaints of fever or chills. Antibiotics were discontinued. She underwent paracentesis on 01/20/2021 with removal of 2.4 liters of fluids. Microbiology for peritoneal fluid was negative for organisms and no gross aerobically, her antibiotics had been discontinued. The patient developed acute kidney injury with creatinine 1.5 on Bumex 1 mg daily and she was changed back to her Spironolactone that she takes at home. PHYSICAL EXAM: On discharge: VITAL SIGNS: Temperature 98.2, pulse 86, respiratory rate 18, blood pressure 112/51, 95% on room air. GENERAL: The patient is awake, alert, oriented x3, answering questions appropriately, no respiratory distress or conversational dyspnea. No use of respiratory accessory muscles. No pallor, icterus or jaundice. No JVD, thyromegaly or cervical lymphadenopathy. No stridor. LUNGS: Clear to auscultation, no wheezes, rhonchi or rales. HEART: S1, S2, sinus rhythm. ABDOMEN: Soft, nontender, non-distended, positive bowel sounds. EXTREMITIES: 2+ pitting edema bilateral lower extremities. LABORATORY DATA: On discharge white count 4.8, hemoglobin 9.6, hematocrit 30, platelet count 104, sodium 138, potassium 4.4, chloride 98, bicarb 30, BUN 19, creatinine 1.5, glucose 169. INR1.25. Microbiology: Ascitic fluid no growth aerobically, no organisms are seen. IMAGING: CT abdomen and pelvis 01/19/2021: Nodular contour of the liver which can be seen with liver cirrhosis, moderate volume of ascites which has increased prior to CT abdomen and pelvis on 08/22/2020, small left pleural effusion, diffuse anasarca, splenomegaly, colonic diverticulosis without evidence of diverticulitis. Venous Dopplers bilateral lower extremities 01/19: No DVT bilateral femoral popliteal veins. Paracentesis 01/20/2021: 2.400 mL yellow fluid which was sent to the lab, no complications. Chest x-ray 01/19/2021: Small left pleural effusion with associated left basilar atelectasis. Time spent on discharge: 30 minutes. [facility] [facility]
--- NOTE | 2021-01-26 22:52 | IPN ---
NEPHROLOGY PROGRESS NOTE DATE: 01/26/2021 SUBJECTIVE: Patient was seen and examined at the bedside today morning. She is afebrile, hemodynamically stable. Her diuretics were held today morning because her creatinine was rising to 1.5 today. She denies any significant lower extremity edema. OBJECTIVE: VITAL SIGNS: Temperature 98.2 degrees Fahrenheit, blood pressure 112/51, pulse 86, respiratory rate 18, saturating 95% on room air. INTAKE AND OUTPUT: Urine output recorded as 750 mL yesterday and 550 mL so far today since overnight. Weight in the bed scale is 91.1 kg. PHYSICAL EXAMINATION: GENERAL: Patient is awake, alert, oriented x3, lying in bed in no apparent distress. HEAD/NECK: Extraocular muscles intact. Pupils equally round and reactive to light. Mucous membranes are moist. Neck is supple. There is no JVD. CARDIOVASCULAR: S1, S2, regular rate. Trace edema of bilateral lower extremities. RESPIRATORY: Chest is clear to auscultation bilaterally. Bilateral equal air entry. No rales or rhonchi. ABDOMEN: Soft, positive bowel sounds, nontender. No organomegaly. MUSCULOSKELETAL: No clubbing or cyanosis. Pulses are 2+. [employer] CLE[employer]ER: No focal deficit. Power is 5/5 in all extremities. LABORATORY REVIEW: CBC showed WBC 4.8, hemoglobin 9.6, platelets 104,000. BMP showed sodium 138, potassium 4.4, chloride 98, bicarb 38, BUN 19, creatinine 1.5; it was 1.4 yesterday. CURRENT INPATIENT MEDICATIONS: Patient's medications were all reviewed by myself. Spironolactone and Bumex were stopped early in the morning. No other significant change in the medications today. ASSESSMENT AND PLAN: 1. Acute renal failure superimposed on chronic kidney disease: Patient's creatinine is still rising, so Bumex and Spironolactone both were held. If patient is discharged, she should be discharged only to Spironolactone 25 mg. The rest of the diuretic adjustment will be done as an outpatient. 2. Cirrhosis with anasarca and ascites: Patient's volume status is better. She looks like she is intravascularly depleted now. Both her diuretics are on hold. No evidence of significant edema on clinical exam now. 3. Metabolic alkalosis: Patient still has some contraction alkalosis despite lowering the diuretic dose. As mentioned above, loop diuretic is being stopped and Spironolactone is being changed to 25 mg once a day only. DISPOSITION: It is okay to discharge the patient from a nephrology standpoint. She needs to follow-up with nephrology within one week after discharge from the hospital.
== END 2021-01-26 14:46 | disposition home health service (06) | DRG 433 ==
LOC: M ED 18:59 → M ED INP 23:20 → ENRESERV 01-20 00:12 → M MSPAV 01-20 01:16
PROVIDERS: ADMIT Family Medicine; ATTEND General Practice
PROC: 0W9G3ZZ Drainage of Peritoneal Cavity, Percutaneous Approach (ICD-10-PCS; principal; 2021-01-20 14:30)
DX: K74.69 Other cirrhosis of liver (principal); R18.8 Other ascites; I85.10 Secondary esophageal varices without bleeding; K76.6 Portal hypertension; E87.3 Alkalosis; N17.9 Acute kidney failure, unspecified; E11.22 Type 2 diabetes mellitus with diabetic chronic kidney disease; I12.9 Hypertensive chronic kidney disease with stage 1 through stage 4 chronic kidney disease, or unspecified chronic kidney disease; L40.50 Arthropathic psoriasis, unspecified; K75.81 Nonalcoholic steatohepatitis (NASH); K21.9 Gastro-esophageal reflux disease without esophagitis; E66.01 Morbid (severe) obesity due to excess calories; M10.30 Gout due to renal impairment, unspecified site; E11.42 Type 2 diabetes mellitus with diabetic polyneuropathy; D64.9 Anemia, unspecified; N18.30 Chronic kidney disease, stage 3 unspecified; Z98.41 Cataract extraction status, right eye; Z98.42 Cataract extraction status, left eye; Z68.38 Body mass index [BMI] 38.0-38.9, adult; Z20.822 Contact with and (suspected) exposure to COVID-19; Z90.49 Acquired absence of other specified parts of digestive tract; Z79.4 Long term (current) use of insulin; Z79.891 Long term (current) use of opiate analgesic; Z79.899 Other long term (current) drug therapy

== ENCOUNTER 2021-01-27 23:57 | Observation (INO) | payer OTHER ==
[~2021-01-27] VITALS: Ht 162.6 cm; Wt 88.3 kg
[~2021-01-27 23:57] MED LIST changes: +FERR324T21 PO; -FERR325T16 PO; +OMEP-221 PO; +VITA100091 PO
[2021-01-28 00:59] LABS: ABG BASE EXCESS 8.5 (-2.0-2.0); ABG HCO3 32.3 MEQ/L (22.0-26.0); ABG O2 SATURATION 94.1 % (95.0-99.0); ABG PARTIAL PRESSURE CO2 41.8 mmHg (35.0-45.0); ABG STANDARD HCO3 32.2 MEQ/L (22.0-26.0); ABG TOTAL CO2 33.6 MEQ/L (23.0-31.0); ABG pH (ARTERIAL) 7.506 UNITS (7.350-7.450)
[2021-01-28 01:18] LABS: BASO % 0.7 % (0.0-1.0); EOS # 0.2 10^3/uL (0.0-0.5); EOS % 3.9 % (0.0-3.0); HEMATOCRIT 30.7 % (36.0-47.0); LYMPH # 1.5 10^3/uL (1.5-5.0); LYMPH % 25.7 % (24.0-44.0); MEAN CORPUSCULAR HEMOGLOBIN 31.4 pg (27.0-33.0); MEAN CORPUSCULAR HGB CONC 32.6 g/dl (32.0-36.5); MEAN CORPUSCULAR VOLUME 96.5 fl (80.0-96.0); MONO # 0.8 10^3/uL (0.0-0.8); MONO % 14.9 % (2.0-8.0); NEUTROPHILS # 3.1 10^3/uL (1.5-8.5); NEUTROPHILS % 54.4 % (36.0-66.0); PLATELET COUNT, AUTOMATED 132 10^3/uL (150-450); RED BLOOD COUNT 3.18 10^6/uL (4.00-5.40); WHITE BLOOD COUNT 5.7 10^3/uL (4.0-10.0)
--- NOTE | 2021-01-28 01:20 | ECGEPIP ---
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
[2021-01-28 01:55] LABS: BLOOD UREA NITROGEN 23 MG/DL (7-18); CREATININE FOR GFR 1.22 MG/DL (0.55-1.30); GLUCOSE, FASTING 163 MG/DL (70-100)
[2021-01-28 01:56] LABS: ACETAMINOPHEN LEVEL < 2.0 UG/ML (10.0-30.0); ALBUMIN 2.3 GM/DL (3.2-5.2); ALT/SGPT 9 U/L (12-78); BILIRUBIN,DIRECT 0.4 MG/DL (0.0-0.2); BILIRUBIN,TOTAL 0.7 MG/DL (0.2-1.0); CALCIUM LEVEL 8.5 MG/DL (8.8-10.2); CARBON DIOXIDE LEVEL 35 MEQ/L (21-32); CHLORIDE LEVEL 98 MEQ/L (98-107); CK-MB VALUE MASS 1.4 NG/ML (<3.6); CPK CREATINE PHOSPHOKINASE 47 U/L (26-192); ETHYL ALCOHOL (ETHANOL) < 0.003 % (0.000-0.010); GLOMERULAR FILTRATION RATE 47.4 (>45); MB/CK RELATIVE INDEX 2.98 (< OR =4); POTASSIUM SERUM 4.7 MEQ/L (3.5-5.1); SALICYLATE LEVEL < 1.7 MG/DL (5.0-30.0); SODIUM LEVEL 136 MEQ/L (136-145); TOTAL PROTEIN 6.2 GM/DL (6.4-8.2); TROPONIN I < 0.02 NG/ML (< 0.10)
[2021-01-28] MEDS ORDERED: PATIENT COMMENT (02:31)
--- NOTE | 2021-01-28 02:49 | REPVR ---
PROCEDURE INFORMATION: Exam: XR Chest Exam date and time: 01/28/2021 2:21 AM Age: 65 years old Clinical indication: Other: AMS TECHNIQUE: Imaging protocol: XR of the chest Views: 1 view. COMPARISON: CR PORTABLE CHEST X-RAY 01/19/2021 7:55 PM FINDINGS: Lungs: There is decreased inflation of the lungs. There are no interval infiltrates. Pleural spaces: There is a triangular density in the left base is similar which may reflect fluid extending into a fissure. There is evidence of a small left pleural effusion which is similar. Heart/Mediastinum: The heart and mediastinum are unchanged. Bones/joints: Unremarkable. Soft tissues: There are moderately generous overlying soft tissues. IMPRESSION: Essentially stable chest since 01/19/2021 with left pleural effusion. Electronically signed by: Peter Negrete On 01/28/2021 02:49:15 AM
--- NOTE | 2021-01-28 02:54 | REPVR ---
PROCEDURE INFORMATION: Exam: CT Head Without Contrast Exam date and time: 01/28/2021 2:08 AM Age: 65 years old Clinical indication: Altered mental status/memory loss; Confusion or disorientation; Additional info: AMS TECHNIQUE: Imaging protocol: Computed tomography of the head without contrast. Radiation optimization: All CT scans at this facility use at least one of these dose optimization techniques: automated exposure control; mA and/or kV adjustment per patient size (includes targeted exams where dose is matched to clinical indication); or iterative reconstruction. COMPARISON: CT Head without contrast 10/12/2020 5:32 AM FINDINGS: Brain: Normal. No hemorrhage. Unremarkable white matter. No mass effect. Cerebral ventricles: No ventriculomegaly. Bones/joints: Unremarkable. No acute fracture. Paranasal sinuses: Visualized sinuses are unremarkable. No fluid levels. Mastoid air cells: Visualized mastoid air cells are well aerated. Soft tissues: Unremarkable. IMPRESSION: Negative noncontrast head CT without significant change from 10/12/2020. Electronically signed by: Peter Negrete On 01/28/2021 02:54:09 AM
[2021-01-28] MEDS ORDERED: LACTULOSE 20 GM/30 ML SYRUP UD PO ONE (04:00)
[2021-01-28] MEDS ORDERED: tiZANidine 4 MG TAB PO PRN (04:45)
[2021-01-28] MEDS ORDERED: ALBUTEROL 90 MCG/ACT 8GM HFA INHALER INH PRN (04:45)
[2021-01-28] MEDS ORDERED: GLUCAGON INJ 1MG VIAL SC PRN (04:45)
[2021-01-28] MEDS ORDERED: GLUCOSE 4GM CHEW TABLET PO PRN (04:45)
[2021-01-28] MEDS ORDERED: DEXTROSE 50% 50 ML SYRINGE IV PRN (04:45)
[2021-01-28] MEDS ORDERED: ONDANSETRON 4MG/2ML VIAL IV PRN (04:45)
[2021-01-28 05:00] LABS: RSV AMPLIFICATION NEGATIVE (NEGATIVE)
--- NOTE | 2021-01-28 05:17 | IPNPDOC ---
Text Note Date of Service The patient was seen on 01/28/21. NOTE Time of service 415am Ms. Ngo is a 65 yr old F w a hx of liver cirrhosis 2/2 CAMPBELL w portal HTN s/p banding of esophageal varices /episodes of ascites / hepatic encephalopathy, IDDM, hypothyroidism, psoriatic arthritis, gout, obesity and CKD 3 who was sent to the hospital by her who noticed that the patient was irritable and felt that this was likely due to elevated ammonia she will be admitted for: # hepatic encephalopathy 2/2 missing a few doses of lactulose - : frequent neurochecks / resume lactulose / the day time team may consider adding rifaxamin if the patient can't take lactulose / to prevent the catabolic effects of chronic liver disease the patient should have a high protein diet with a daily protein intake of 1.5 g/kg body weight / f/u LFTs & INR PTT aPTT / overt hepatic encephalopathy, may be the sole presenting feature of spontaneous bacterial peritonitis (SBP) therefore will order US of the liver to determine if patient is a candidate for paracentesis / the day time team may consider calling GI to discuss starting NAC because it has been shown in a randomized controlled trial to improve transplant-free survival in nonacetaminophen-related acute liver failurein individuals with grade 1 or 2 HE # hypoxemia possibly due to hypoventilation due to HE - continuous pulse ox / f/u d-dimer to screen for PE # metabolic alkalosis possibly 2/2 diuretics - check urine Cl to determine if the metabolic alkalosis is chloride responsive rest per CONSTANTIN Harris's H&P VS,[place], I+O VS, [place], I+O Laboratory Tests 01/28/21 00:44 01/28/21 00:45 Vital Signs Date Time Temp Pulse Resp B/P (MAP) Pulse Ox O2 Delivery O2 Flow Rate FiO2 01/28/21 04:48 82 16 133/60 (84) 98 Nasal Cannula 3.0 01/28/21 00:10 98.5 KAMI VIDAL MD Jan 28, 2021 05:17
--- NOTE | 2021-01-28 05:40 | HPEPDOC ---
[facility] Medical History & Physical Date of Admission Jan 28, 2021 Date of Service: Jan 28, 2021 Attending Physician: KAMI VIDAL MD History and Physical CHIEF COMPLAINT: [This is a 65 y/o female who presents to the ED via EMS with altered mental status.] HISTORY OF PRESENT ILLNESS: [This is a 65 y/o white female with a pmh of liver cirrhosis d/t CAMPBELL, IDDM2, HTN, and hypothyroidism who is brought to the ED on 01/28 after family noted her to be increasingly agitated and confused from her baseline. Patient was recently discharged from this hospital on 01/26 after being treated for hepatic encephalopathy and ascites after an uncomplicated hospital course. Family that present with patient believe that this behavior is caused by her ammonia being elevated. Patient is confused upon exam, but is alert and responsive. Patient states that she doesn't feel very well, that she is nauseated and in pain "all over." Patient denies fever, chills, chest pain, sob. ] PAST MEDICAL HISTORY: 1. [Cirrhosis d/t CAMPBELL]. 2. [IDDM2]. 3. [HTN]. PAST SURGICAL HISTORY: 1. [Paracentesis]. 2. [Cataract surgery]. 3. [Chest type placed 2020 4. Cholecystectomy 5. Colonoscopy with polyp resection]. SOCIAL HISTORY: Marital status: []. Resides in: [home with family] Employment: [unemployed] Tobacco use:[history of smoking] ETOH: [no] Illicit drug use: [no] FAMILY HISTORY: Father: [none pertinent] Mother: [a-fib, dm, copd] Siblings: [brothers - cad, colon ca, dm] ALLERGIES: Please see below. REVIEW OF SYSTEMS: CONSTITUTIONAL: [Refer to hpi]. HEENT: [Denies URI sx]. CARDIOVASCULAR: [Refer to hpi]. RESPIRATORY: [Refer to hpi]. GASTROINTESTINAL: [Refer to hpi]. GENITOURINARY: [Refer to hpi]. SKIN: [Refer to hpi]. MUSCULOSKELETAL: [Refer to hpi]. NEUROLOGICAL: [Refer to hpi]. HOME MEDICATIONS: Please see below. PHYSICAL EXAMINATION: VITAL SIGNS: See below GENERAL APPEARANCE: [This is an ill appearing 65 year old female. She appears tired but is resting comfortably in bed.]. HEENT: [No mass or lesion. EOMI. PERRL. No scleral icterus or conjunctival erythema. Nares patent. Oral mucosa moist.]. CARDIOVASCULAR: [Regular rate and rhythm. No murmurs, rubs or gallops]. LUNGS: [Good air exchange appreciated. No wheezes, rales or rhonchii.]. ABDOMEN: [Soft, distended. No tenderness appreciated.]. MUSCULOSKELETAL: [No joint deformity noted. ]. EXTREMITIES: [Warm, dry. No peripheral edema noted. Pulses intact.]. NEUROLOGICAL: [Oriented to person, place. Speech is clear. No focal deficits noted.]. PSYCHIATRIC: [Mood and affect appear appropriate.]. LABORATORY DATA: See below. IMAGING: [CXR: FINDINGS: Lungs: There is decreased inflation of the lungs. There are no interval infiltrates. Pleural spaces: There is a triangular density in the left base is similar which may reflect fluid extending into a fissure. There is evidence of a small left pleural effusion which is similar. Heart/Mediastinum: The heart and mediastinum are unchanged. Bones/joints: Unremarkable. Soft tissues: There are moderately generous overlying soft tissues. IMPRESSION: Essentially stable chest since 01/19/2021 with left pleural effusion. Head CT: FINDINGS: Brain: Normal. No hemorrhage. Unremarkable white matter. No mass effect. Cerebral ventricles: No ventriculomegaly. Bones/joints: Unremarkable. No acute fracture. Paranasal sinuses: Visualized sinuses are unremarkable. No fluid levels. Mastoid air cells: Visualized mastoid air cells are well aerated. Soft tissues: Unremarkable. IMPRESSION: Negative noncontrast head CT without significant change from 10/12/2020. ] MICROBIOLOGY: Please see below. ASSESSMENT/PLAN: 1. [Hepatic encephalopathy - Secondary to cirrhosis, patient often decompensates per family and medical record - Patient given dose of lactulose in the er, and we will restart her home regimen - Patient will be admitted to [facility] where we will monitor pulse ox and perform neuro checks to make sure her mental status does not decline - CT brain negative, suspicion of stroke is very low at this point given her history. - continue at home supplements - mag, vit c, vit d 2. Ascites - liver us ordered to evaluate need for paracentesis. patient will very likely need paracentesis - will leave up to day team to consult IR to perform - patient complains of nausea - we will begin zofran 4mg iv q4h prn - continue spironolactone 3. IDDM2 - begin sliding scale insulin - continue gabapentin 4. HTN - bp has been good, continue to monitor 5. GERD - continue omeprazole 6. Hypothyroidism - continue synthroid 7. DVT prophylaxis - lovenox ordered ]. Vital Signs Vital Signs Date Time Temp Pulse Resp B/P (MAP) Pulse Ox O2 Delivery O2 Flow Rate FiO2 01/28/21 04:48 82 16 133/60 (84) 98 Nasal Cannula 3.0 01/28/21 00:10 98.5 Laboratory Data Labs 24H Laboratory Tests 2 01/28/21 00:44: Anion Gap 3L, Glomerular Filtration Rate 47.4, Calcium Level 8.5L, Total Bilirubin 0.7, Direct Bilirubin 0.4H, Aspartate Amino Transf (AST/SGOT) 30, Alanine Aminotransferase (ALT/SGPT) 9L, Alkaline Phosphatase 202H, Total Creatine Kinase 47, Creatine Kinase MB 1.4, Creatine Kinase MB Relative Index 2.98, Troponin I < 0.02, Total Protein 6.2L, Albumin 2.3L, Albumin/Globulin Ratio 0.6L, Thyroid Stimulating Hormone (TSH) 2.080, Salicylates Level < 1.7L, Acetaminophen Level < 2.0L, Ethyl Alcohol Level < 0.003 01/28/21 00:45: Immature Granulocyte % (Auto) 0.4, Neutrophils (%) (Auto) 54.4, Lymphocytes (%) (Auto) 25.7, Monocytes (%) (Auto) 14.9H, Eosinophils (%) (Auto) 3.9H, Basophils (%) (Auto) 0.7, Neutrophils # (Auto) 3.1, Lymphocytes # (Auto) 1.5, Monocytes # (Auto) 0.8, Eosinophils # (Auto) 0.2, Basophils # (Auto) 0.0, Nucleated Red Blood Cells % (auto) 0.0, Blood Gas Bicarbonate Standard 32.2H, Arterial Blood pH 7.506H, Arterial Blood Partial Pressure CO2 41.8, Arterial Blood Partial Pressure O2 69.0L, Arterial Blood Total CO2 33.6H, Arterial Blood HCO3 32.3H, Arterial Blood Base Excess 8.5H, Arterial Blood Oxygen Saturation 94.1L, Lactic Acid Level 1.3, Ammonia 160H 01/28/21 00:50: Bedside Glucose (Misc Panel) 162H 01/28/21 04:14: Coronavirus (COVID-19)(PCR) NEGATIVE, Influenza Type A (RT-PCR) NEGATIVE, Influenza Type B (RT-PCR) NEGATIVE, Respiratory Syncytial Virus (PCR) NEGATIVE CBC/BMP Laboratory Tests 01/28/21 00:44 01/28/21 00:45 Home Medications Scheduled Allopurinol (Allopurinol) 100 Mg Tab, 100 MG PO QHS Ascorbic Acid (Vitamin C) 1,000 Mg Tablet, 1,000 MG PO DAILY Cholecalciferol (Vitamin D3) (Vitamin D3) 1,000 Unit Tablet, 1,000 UNITS PO DAILY Gabapentin (Gabapentin) 300 Mg Capsule, 300 MG PO BID Insulin Human Lispro (Novolog) 100 U/Ml Inj, 1 DOSE SC ACHS PER SLIDING SCALE Lactulose (Lactulose) 10 Gm/15 Ml Solution, 30 ML PO TID Levothyroxine Sodium (Levothyroxine Sodium) 25 Mcg Tablet, 25 MCG PO DAILY Magnesium Oxide (Magnesium Oxide) 400 Mg Tablet, 800 MG PO BID Omeprazole (Omeprazole) 40 Mg Capsule.dr, 40 MG PO DAILY Spironolactone (Spironolactone) 25 Mg Tablet, 25 MG PO DAILY Scheduled PRN Albuterol Sulfate (Ventolin Hfa) 18 Gm Hfa.aer.ad, 2 PUFF INH Q4H PRN for SHORTNESS OF BREATH Tizanidine HCl (Tizanidine HCl) 2 Mg Tablet, 2 MG PO TID PRN for MUSCLE SPASMS Miscellaneous Medications [Patient Comment] MED REC COMPLETED VIA PREVIOUS DISCHARGE PAPERWORK (01/26/21) Allergies Coded Allergies: No Known Drug Allergies (Verified Allergy, Unknown, 01/19/21) A-FIB/CHADSVASC A-FIB History Current/History of A-Fib/PAF?: No Attending Note Attending Note Time of service 415am Ms. Ngo is a 65 yr old F w a hx of liver cirrhosis 2/2 CAMPBELL w portal HTN s/p banding of esophageal varices /episodes of ascites / hepatic encephalopathy, IDDM, hypothyroidism, psoriatic arthritis, gout, obesity and CKD 3 who was sent to the hospital by her who noticed that the patient was irritable and felt that this was likely due to elevated ammonia. The patient was discharged from the hospital about 2 days ago; the day that she was at home she slept all day and didnt' take her lactulose. The patient will be admitted for: # hepatic encephalopathy 2/2 missing a few doses of lactulose - : frequent neurochecks / resume lactulose / the day time team may consider adding rifaxamin if the patient can't take lactulose / to prevent the catabolic effects of chronic liver disease the patient should have a high protein diet with a daily protein intake of 1.5 g/kg body weight / f/u LFTs & INR PTT aPTT / overt hepatic encephalopathy, may be the sole presenting feature of spontaneous bacterial peritonitis (SBP) therefore will order US of the liver to determine if patient is a candidate for paracentesis / the day time team may consider calling GI to discuss starting NAC because it has been shown in a randomized controlled trial to improve transplant-free survival in nonacetaminophen-related acute liver failurein individuals with grade 1 or 2 HE # hypoxemia possibly due to hypoventilation due to HE - continuous pulse ox / f/u d-dimer to screen for PE # metabolic alkalosis possibly 2/2 diuretics - check urine Cl to determine if the metabolic alkalosis is chloride responsive rest per CONSTANTIN Gonzales's H&P ANUPAM GONZALES Jan 28, 2021 05:33 KAMI VIDAL MD Jan 28, 2021 20:24
[2021-01-28] MEDS ORDERED: cefTRIAXone SOD 1 GM in D5W MINI-BAG PLUS 50 ML IV ONE (05:45)
[2021-01-28 05:46] LABS: INR 1.13; PROTHROMBIN TIME 14.8 SECONDS (12.5-14.3)
[2021-01-28 05:47] LABS: PARTIAL THROMBOPLASTIN TIME 34.5 SECONDS (24.2-38.5)
[2021-01-28 05:49] LABS: D-DIMER QUANT 3715.08 ng/ml (<500)
[2021-01-28 06:00] VITALS: BP 136/70
[2021-01-28] MEDS: ENOXAPARIN 40MG/0.4ML SYRINGE (J1650 PER 10MG) SC SCH ×2 (07:27→10:08)
--- NOTE | 2021-01-28 07:48 | REP ---
INDICATION: cirrhosis/ascites COMPARISON: CT dated 01/19/2021 TECHNIQUE: Real time estrada scale ultrasound examination using curved array transducer. FINDINGS: Liver demonstrates coarsened echotexture with nodular contour and small amount of perihepatic ascites. No focal hepatic lesions are identified. Color Doppler evaluation demonstrates main portal vein to be minimally dilated at 1.7 cm with hepatopetal flow. Patient is noted to be status post cholecystectomy with compensatory dilatation to the common bile duct at 11 mm diameter. The pancreas is incompletely evaluated due to interposed bowel gas. Right kidney measures 9.9 x 5.4 x 5.9 cm without hydronephrosis. IMPRESSION: Findings consistent with cirrhosis. <Electronically signed by Michael Vincent > 01/28/21 [id number]
[2021-01-28] MEDS: LEVOTHYROXINE 25MCG TABLET (0.025MG) PO SCH (08:22)
[2021-01-28] MEDS: HumaLOG INSULIN (NovoLOG) PER UNIT SC SCH ×3 (08:23→17:59)
[2021-01-28] MEDS ORDERED: GABAPENTIN 300 MG CAP PO SCH (09:00)
[2021-01-28] MEDS ORDERED: LACTULOSE 20 GM/30 ML SYRUP UD PO SCH (09:00)
[2021-01-28] MEDS: LACTULOSE 20 GM/30 ML SYRUP UD PO SCH ×4 (10:07→20:37)
[2021-01-28] MEDS: SPIRONOLACTONE 25 MG TAB PO SCH (10:07)
[2021-01-28] MEDS: ASCORBIC ACID 500 MG TAB PO SCH (10:07)
[2021-01-28] MEDS: VITAMIN D 1,000 INTERNATIONAL UNITS TABLET PO SCH (10:07)
[2021-01-28] MEDS: MAGNESIUM OXIDE 400MG TAB (MAG-OX) PO SCH ×2 (10:07→20:37)
[2021-01-28] MEDS: OMEPRAZOLE 20 MG CAP PO SCH (10:08)
[2021-01-28 14:00] VITALS: BP 140/81
[2021-01-28] MEDS ORDERED: FLEET ENEMA PR PRN (14:15)
--- NOTE | 2021-01-28 14:35 | IPNPDOC ---
Text Note Date of Service The patient was seen on 01/28/21. NOTE SUBJECTIVE: -Sleepy -has poor appetite -When asked about abdominal pain she denies any though she appears uncomfortable -Oriented to self and SMC PHYSICAL EXAMINATION: VITAL SIGNS: See below GENERAL APPEARANCE: ill appearing, sleepy, NAD but appears uncomfortable HEENT: NCAT, EOMI, anicteric, PERRLA, dry MM CARDIOVASCULAR: RRR, no m/r/g LUNGS: CTAB ABDOMEN: distended and obese but soft, nontender, normoactive sounds EXTREMITIES: Trace bipedal edema, WWP NEUROLOGICAL: Speech is clear, oriented to self and SMC, moving all extremities spontaneously PSYCHIATRIC: Drowsy and appears to have a flat affect LABORATORY DATA: Reviewed IMAGING: CXR: FINDINGS: Lungs: There is decreased inflation of the lungs. There are no interval infiltrates. Pleural spaces: There is a triangular density in the left base is similar which may reflect fluid extending into a fissure. There is evidence of a small left pleural effusion which is similar. Heart/Mediastinum: The heart and mediastinum are unchanged. Bones/joints: Unremarkable. Soft tissues: There are moderately generous overlying soft tissues. IMPRESSION: Essentially stable chest since 01/19/2021 with left pleural effusion. Head CT: FINDINGS: Brain: Normal. No hemorrhage. Unremarkable white matter. No mass effect. Cerebral ventricles: No ventriculomegaly. Bones/joints: Unremarkable. No acute fracture. Paranasal sinuses: Visualized sinuses are unremarkable. No fluid levels. Mastoid air cells: Visualized mastoid air cells are well aerated. Soft tissues: Unremarkable. IMPRESSION: Negative noncontrast head CT without significant change from 10/12/2020. MICROBIOLOGY: Please see below. PLAN: 1. Encephalopathy, likely hepatic encephalopathy -Secondary to cirrhosis, though precipitant of decompensation is unclear at this time -No BM yet despite, lactulose given. Will increase to QID dosing, and will give fleet enema at this time and BID PRN, for up to 3 BMs/24h -CT brain negative, suspicion of stroke is very low -ascites is minimal on imaging, and has no abdominal complaints -liver US did not show portal vein thrombosis -Will get CT A/P -LE duplex venous US given elevated ddimer -UA w/ reflex to UCx, BCx 2. CAMPBELL cirrhosis - continue spironolactone 3. IDDM2 - sliding scale insulin - hold gabapentin 4. HTN: normotensive 5. GERD - continue omeprazole 6. Hypothyroidism - continue synthroid 7. DVT prophylaxis - lovenox QD VS,Fishbone, I+O VS, Fishbone, I+O Laboratory Tests 01/28/21 00:44 01/28/21 00:45 Vital Signs Date Time Temp Pulse Resp B/P (MAP) Pulse Ox O2 Delivery O2 Flow Rate FiO2 01/28/21 06:00 97.6 87 19 136/70 (92) 91 Room Air 01/28/21 05:15 3.0 I&O- Last 24 Hours up to 6 AM 01/28/21 06:00 Intake Total 0 ml Balance 0 ml GILLIAN ZAPATA MD Jan 28, 2021 14:35
--- NOTE | 2021-01-28 16:16 | REP ---
INDICATION: r/o DVT. COMPARISON: None. TECHNIQUE: Bilateral lower extremity duplex venous sonography. FINDINGS: The deep veins are anechoic and fully compressible from the groin to the popliteal fossa in the left and right lower extremity. Color flow imaging is homogeneous. Spectral Doppler interrogation demonstrates intact respiratory variation in flow and normal manual augmentation of flow. There is no evidence of deep vein thrombosis. IMPRESSION: Negative bilateral lower extremity duplex venous ultrasound. No evidence of deep vein thrombosis. <Electronically signed by Fox Cooper > 01/28/21 [id number]
--- NOTE | 2021-01-28 16:57 | REP ---
INDICATION: abd pain COMPARISON: Comparison CT studies are from January 19, 2021 and August 22, 2020.. TECHNIQUE: Helical scanning is acquired in 4 mm axial images were reformatted. Coronal and sagittal MPR images were generated and reviewed. FINDINGS: Preliminary digital polymerization kettle operator radiograph demonstrates a E moderate amount of stool in the distal rectum and sigmoid colon. There is soft tissue density lateral to the bowel gas in the flanks bilaterally consistent with ascites. There is a left pleural effusion on axial lung window setting scar. This is larger than it was on January 19, 2021. There are nonunited left posterolateral rib fractures again noted. No right effusion is seen. There is mild to moderate diffuse abdominal ascites visible today, less in amount when compared with the January 19, 2021 study. The left lobe of the liver is prominent in size in the liver contour is irregular consistent with cirrhosis. The spleen is mildly enlarged measuring up to 14 cm. No abnormality is visible in the pancreas. Small and large bowel loops are unremarkable except for moderate stool in the distal colon. There is diffuse subcutaneous edema and dermal thickening bilaterally in the abdominal panniculus consistent with cellulitis. Small nodular densities are seen suggesting injection sites in the subcutaneous space. There is no evidence of hydronephrosis or intrarenal calculus. IMPRESSION: [id number]-[id number] abdominal ascites decreased somewhat in size since the prior study of January 19, 2021. The left pleural effusion slightly increased from that prior exam. Evidence of cirrhosis and splenomegaly. Moderate distal colonic stool. Otherwise unchanged <Electronically signed by Fox Cooper > 01/28/21 [id number]
[2021-01-28 19:30] VITALS: BP 134/73
[2021-01-28] MEDS: allopurinoL 100 MG TAB PO SCH (20:37)
[2021-01-29 05:46] VITALS: BP 137/72
[2021-01-29 05:49] LABS: ABG BASE EXCESS 10.7 (-2.0-2.0); ABG HCO3 35.6 MEQ/L (22.0-26.0); ABG O2 SATURATION 93.5 % (95.0-99.0); ABG PARTIAL PRESSURE CO2 49.6 mmHg (35.0-45.0); ABG PARTIAL PRESSURE O2 66.7 mmHg (75.0-100.0); ABG STANDARD HCO3 34.3 MEQ/L (22.0-26.0); ABG TOTAL CO2 37.1 MEQ/L (23.0-31.0); ABG pH (ARTERIAL) 7.474 UNITS (7.350-7.450)
[2021-01-29] MEDS: LEVOTHYROXINE 25MCG TABLET (0.025MG) PO SCH (06:05)
[2021-01-29 06:38] LABS: INR 1.14; PROTHROMBIN TIME 14.8 SECONDS (12.5-14.3)
[2021-01-29 07:09] LABS: ALBUMIN 2.2 GM/DL (3.2-5.2); CALCIUM LEVEL 8.3 MG/DL (8.8-10.2); CREATININE FOR GFR 1.13 MG/DL (0.55-1.30); GLOMERULAR FILTRATION RATE 51.8 (>45); POTASSIUM SERUM 4.1 MEQ/L (3.5-5.1)
[2021-01-29] MEDS: ENOXAPARIN 40MG/0.4ML SYRINGE (J1650 PER 10MG) SC SCH (08:15)
[2021-01-29] MEDS: VITAMIN D 1,000 INTERNATIONAL UNITS TABLET PO SCH (08:15)
[2021-01-29] MEDS: LACTULOSE 20 GM/30 ML SYRUP UD PO SCH ×4 (08:15→21:49)
[2021-01-29] MEDS: OMEPRAZOLE 20 MG CAP PO SCH (08:16)
[2021-01-29] MEDS: ASCORBIC ACID 500 MG TAB PO SCH (08:16)
[2021-01-29] MEDS: SPIRONOLACTONE 25 MG TAB PO SCH (08:16)
[2021-01-29] MEDS: MAGNESIUM OXIDE 400MG TAB (MAG-OX) PO SCH ×2 (08:16→21:49)
[2021-01-29] MEDS: HumaLOG INSULIN (NovoLOG) PER UNIT SC SCH ×3 (08:17→17:27)
[2021-01-29] MEDS: FLEET ENEMA PR SCH ×2 (11:38→21:50)
--- NOTE | 2021-01-29 13:11 | IPNPDOC ---
Text Note Date of Service The patient was seen on 01/29/21. NOTE SUBJECTIVE: -still relatively sleepy, finally had 2 BM's yesterday -has some abdominal discomfort, had 1 episode of emesis midmorning PHYSICAL EXAMINATION: VITAL SIGNS: See below GENERAL APPEARANCE: ill appearing, sleepy, NAD but appears uncomfortable HEENT: NCAT, EOMI, anicteric, PERRLA, dry MM CARDIOVASCULAR: RRR, no m/r/g LUNGS: CTAB ABDOMEN: distended and obese but soft, nontender, normoactive sounds EXTREMITIES: Trace bipedal edema, WWP NEUROLOGICAL: Speech is clear, oriented to self and SMC, moving all extremities spontaneously PSYCHIATRIC: Drowsy and appears to have a flat affect LABORATORY DATA: Reviewed IMAGING: CXR: FINDINGS: Lungs: There is decreased inflation of the lungs. There are no interval infiltrates. Pleural spaces: There is a triangular density in the left base is similar which may reflect fluid extending into a fissure. There is evidence of a small left pleural effusion which is similar. Heart/Mediastinum: The heart and mediastinum are unchanged. Bones/joints: Unremarkable. Soft tissues: There are moderately generous overlying soft tissues. IMPRESSION: Essentially stable chest since 01/19/2021 with left pleural effusion. Head CT: FINDINGS: Brain: Normal. No hemorrhage. Unremarkable white matter. No mass effect. Cerebral ventricles: No ventriculomegaly. Bones/joints: Unremarkable. No acute fracture. Paranasal sinuses: Visualized sinuses are unremarkable. No fluid levels. Mastoid air cells: Visualized mastoid air cells are well aerated. Soft tissues: Unremarkable. IMPRESSION: Negative noncontrast head CT without significant change from 10/12/2020. MICROBIOLOGY: Please see below. PLAN: 1. Encephalopathy, likely hepatic encephalopathy -Secondary to cirrhosis, though precipitant of decompensation is unclear at this time -Lactulose QID dosing, and will schedule fleet enema to BID PRN, for up to 4 BM s/24h -CT brain negative, suspicion of stroke is very low -ascites is minimal on imaging, and has no abdominal complaints -CT A/P with mild to moderate ascites -liver US did not show portal vein thrombosis -LE duplex venous US were negative for DVTs -UA was with 1+ reginald but negative nitrites and leuk esterase -BCx NGTD 2. CAMPBELL cirrhosis - continue spironolactone 3. IDDM2 - sliding scale insulin - hold gabapentin 4. HTN: normotensive 5. GERD - continue omeprazole 6. Hypothyroidism - continue synthroid 7. DVT prophylaxis - lovenox QD VS,Fishbone, I+O VS, Fishbone, I+O Laboratory Tests 01/29/21 06:09 Vital Signs Date Time Temp Pulse Resp B/P (MAP) Pulse Ox O2 Delivery O2 Flow Rate FiO2 01/29/21 05:46 97.6 86 20 137/72 (93) 94 Room Air 01/28/21 05:15 3.0 I&O- Last 24 Hours up to 6 AM 01/29/21 06:00 Intake Total 1020 ml Output Total 0 ml Balance 1020 ml GILLIAN AZPATA MD Jan 29, 2021 10:53
[2021-01-29 14:00] VITALS: BP 135/72
[2021-01-29 20:28] VITALS: BP 164/76
[2021-01-29] MEDS ORDERED: HumaLOG INSULIN (NovoLOG) PER UNIT SC SCH (21:00)
[2021-01-29] MEDS: allopurinoL 100 MG TAB PO SCH (21:49)
[2021-01-30] MEDS: LEVOTHYROXINE 25MCG TABLET (0.025MG) PO SCH (05:12)
[2021-01-30 05:40] VITALS: BP 145/56
[2021-01-30 07:34] LABS: INR 1.17; PROTHROMBIN TIME 15.2 SECONDS (12.5-14.3)
[2021-01-30] MEDS: ENOXAPARIN 40MG/0.4ML SYRINGE (J1650 PER 10MG) SC SCH (08:29)
[2021-01-30] MEDS: HumaLOG INSULIN (NovoLOG) PER UNIT SC SCH (08:30)
[2021-01-30] MEDS: MAGNESIUM OXIDE 400MG TAB (MAG-OX) PO SCH (08:31)
[2021-01-30] MEDS: VITAMIN D 1,000 INTERNATIONAL UNITS TABLET PO SCH (08:31)
[2021-01-30] MEDS: SPIRONOLACTONE 25 MG TAB PO SCH (08:31)
[2021-01-30] MEDS: LACTULOSE 20 GM/30 ML SYRUP UD PO SCH (08:31)
[2021-01-30] MEDS: ASCORBIC ACID 500 MG TAB PO SCH (08:32)
[2021-01-30] MEDS: OMEPRAZOLE 20 MG CAP PO SCH (08:32)
[2021-01-30] MEDS: FLEET ENEMA PR SCH (09:00)
--- NOTE | 2021-01-30 09:14 | DS.PDOC ---
Discharge Summary General Date of Admission Jan 28, 2021 at 04:12 Date of Discharge 01/30/2021 Attending Physician: GILLIAN ZAPATA MD Discharge Summary PROCEDURES PERFORMED DURING STAY: None ADMITTING DIAGNOSES: Hepatic encephalopathy DISCHARGE DIAGNOSES: Hepatic encephalopathy PAST MEDICAL HISTORY: Cirrhosis d/t CAMPBELL IDDM2 HTN COMPLICATIONS/CHIEF COMPLAINT: Abdominal Ascites,Hepatic Encephalopathy. HISTORY OF PRESENT ILLNESS: 65 y/o W with a liver cirrhosis d/t CAMPBELL, IDDM2, HTN, and hypothyroidism who was brought to the ED on 01/28 after family noted her to be increasingly agitated and confused from her baseline. Patient was recently discharged from this hospital on 01/26 after being treated for hepatic encephalopathy and ascites after an uncomplicated hospital course. HOSPITAL COURSE: In the ED, she was confused but alert and responsive, without recent history of fever, chills, chest pain, sob and endorsing abdominal discomfort. She did not have a leukocytosis, abdominal imaging showed mild ascites but no other acute pathology and she was started on an aggressive bowel regimen in addition to her scheduled lactulose. Her mentation improved dramatically after 2 days and ammonia levels dropped from 160 to 69. Infectious workup was also santos-negative. She is now being discharged home and urged to be compliant with her lactulose. DISCHARGE MEDICATIONS: Please see below. ALLERGIES: Please see below. PHYSICAL EXAMINATION ON DISCHARGE: VITAL SIGNS: See below GENERAL APPEARANCE: well appearing, NAD HEENT: NCAT, EOMI, anicteric, PERRLA, MMM CARDIOVASCULAR: RRR, no m/r/g LUNGS: CTAB ABDOMEN: Normoactive bowel sounds, soft, nontender, normoactive sounds EXTREMITIES: No LE edema, WWP NEUROLOGICAL: Speech is clear, AOx3, moving all extremities spontaneously PSYCHIATRIC: Alert, awake, AOx3 LABORATORY DATA: Please see below. IMAGING: CXR: FINDINGS: Lungs: There is decreased inflation of the lungs. There are no interval infiltrates. Pleural spaces: There is a triangular density in the left base is similar which may reflect fluid extending into a fissure. There is evidence of a small left pleural effusion which is similar. Heart/Mediastinum: The heart and mediastinum are unchanged. Bones/joints: Unremarkable. Soft tissues: There are moderately generous overlying soft tissues. IMPRESSION: Essentially stable chest since 01/19/2021 with left pleural effusion. Head CT: FINDINGS: Brain: Normal. No hemorrhage. Unremarkable white matter. No mass effect. Cerebral ventricles: No ventriculomegaly. Bones/joints: Unremarkable. No acute fracture. Paranasal sinuses: Visualized sinuses are unremarkable. No fluid levels. Mastoid air cells: Visualized mastoid air cells are well aerated. Soft tissues: Unremarkable. IMPRESSION: Negative noncontrast head CT without significant change from 10/12/2020. Liver US: Liver demonstrates coarsened echotexture with nodular contour and small amount of perihepatic ascites. No focal hepatic lesions are identified. Color Doppler evaluation demonstrates main portal vein to be minimally dilated at 1.7 cm with hepatopetal flow. Patient is noted to be status post cholecystectomy with compensatory dilatation to the common bile duct at 11 mm diameter. The pancreas is incompletely evaluated due to interposed bowel gas. Right kidney measures 9.9 x 5.4 x 5.9 cm without hydronephrosis. IMPRESSION: Findings consistent with cirrhosis. CT A/P: Preliminary digital lab manager radiograph demonstrates a E moderate amount of stool in the distal rectum and sigmoid colon. There is soft tissue density lateral to the bowel gas in the flanks bilaterally consistent with ascites. There is a left pleural effusion on axial lung window setting scar. This is larger than it was on January 19, 2021. There are nonunited left posterolateral rib fractures again noted. No right effusion is seen. There is mild to moderate diffuse abdominal ascites visible today, less in amount when compared with the January 19, 2021 study. The left lobe of the liver is prominent in size in the liver contour is irregular consistent with cirrhosis. The spleen is mildly enlarged measuring up to 14 cm. No abnormality is visible in the pancreas. Small and large bowel loops are unremarkable except for moderate stool in the distal colon. There is diffuse subcutaneous edema and dermal thickening bilaterally in the abdominal panniculus consistent with cellulitis. Small nodular densities are seen suggesting injection sites in the subcutaneous space. There is no evidence of hydronephrosis or intrarenal calculus. IMPRESSION: [id number] abdominal ascites decreased somewhat in size since the prior study of January 19, 2021. The left pleural effusion slightly increased from that prior exam. Evidence of cirrhosis and splenomegaly. Moderate distal colonic stool. Otherwise unchanged Bilateral LE doppler venous US: The deep veins are anechoic and fully compressible from the groin to the popliteal fossa in the left and right lower extremity. Color flow imaging is homogeneous. Spectral Doppler interrogation demonstrates intact respiratory variation in flow and normal manual augmentation of flow. There is no evidence of deep vein thrombosis. IMPRESSION: Negative bilateral lower extremity duplex venous ultrasound. No evidence of deep vein thrombosis. PROGNOSIS: Good, however high risk for re-admission with history of non- compliance with lactulose ACTIVITY: As tolerated DIET: consistent carb, 2g sodium, 2L/24h DISCHARGE PLAN: Home with PCP follow up DISPOSITION: Home DISCHARGE INSTRUCTIONS: Home with PCP follow up ITEMS TO FOLLOWUP ON ON OUTPATIENT: Cirrhosis DISCHARGE CONDITION: Stable. TIME SPENT ON DISCHARGE: 34 minutes. Vital Signs/I&Os Vital Signs Date Time Temp Pulse Resp B/P (MAP) Pulse Ox O2 Delivery O2 Flow Rate FiO2 01/30/21 05:40 98.2 93 20 145/56 (85) 95 Room Air 01/28/21 05:15 3.0 I&O- Last 24 Hours up to 6 AM 01/30/21 06:00 Intake Total 600 ml Output Total 400 ml Balance 200 ml Laboratory Data Labs 24H Laboratory Tests 2 01/29/21 11:04: Ammonia 69H 01/29/21 11:40: Bedside Glucose (Misc Panel) 228H 01/29/21 20:34: Bedside Glucose (Misc Panel) 172H 01/30/21 06:41: Bedside Glucose (Misc Panel) 191H 01/30/21 07:07: Prothrombin Time 15.2H, Prothromb Time International Ratio 1.17 FSBS Laboratory Tests Test 01/29/21 11:40 01/29/21 20:34 01/30/21 06:41 Range/Units Bedside Glucose (Misc Panel) 228 172 191 80-115 MG/DL Microbiology Microbiology 01/28/21 Blood Culture - Preliminary, Resulted No growth after 24 hours . All specim... 01/28/21 Blood Culture - Preliminary, Resulted No growth after 24 hours . All specim... Discharge Medications Scheduled Allopurinol (Allopurinol) 100 Mg Tab, 100 MG PO QHS, (Reported) Ascorbic Acid (Vitamin C) 1,000 Mg Tablet, 1,000 MG PO DAILY, (Reported) Cholecalciferol (Vitamin D3) (Vitamin D3) 1,000 Unit Tablet, 1,000 UNITS PO DAILY, (Reported) Gabapentin (Gabapentin) 300 Mg Capsule, 300 MG PO BID, (Reported) Insulin Human Lispro (Novolog) 100 U/Ml Inj, 1 DOSE SC ACHS, (Reported) PER SLIDING SCALE Lactulose (Lactulose) 10 Gm/15 Ml Solution, 30 ML PO TID, (Reported) Levothyroxine Sodium (Levothyroxine Sodium) 25 Mcg Tablet, 25 MCG PO DAILY, (Reported) Magnesium Oxide (Magnesium Oxide) 400 Mg Tablet, 800 MG PO BID, (Reported) Omeprazole (Omeprazole) 40 Mg Capsule.dr, 40 MG PO DAILY, (Reported) Spironolactone (Spironolactone) 25 Mg Tablet, 25 MG PO DAILY, (Reported) Scheduled PRN Albuterol Sulfate (Ventolin Hfa) 18 Gm Hfa.aer.ad, 2 PUFF INH Q4H PRN for SHORTNESS OF BREATH, (Reported) Tizanidine HCl (Tizanidine HCl) 2 Mg Tablet, 2 MG PO TID PRN for MUSCLE SPASMS, (Reported) Miscellaneous Medications [Patient Comment] , (Reported) MED REC COMPLETED VIA PREVIOUS DISCHARGE PAPERWORK (01/26/21) Allergies Coded Allergies: No Known Drug Allergies (Verified Allergy, Unknown, 01/19/21) GILLIAN ZAPATA MD Jan 30, 2021 09:14
== END 2021-01-30 12:00 | disposition home or self-care (01) ==
LOC: M ED 23:57 → M ED INP 01-28 04:12 → INTOOBSV 01-28 04:12 → ENRESERV 01-28 05:23 → M MS5PR 01-28 05:50
PROVIDERS: ADMIT Internal Medicine; ATTEND Internal Medicine
DX: K72.90 Hepatic failure, unspecified without coma (principal); K74.60 Unspecified cirrhosis of liver; K75.81 Nonalcoholic steatohepatitis (NASH); R18.8 Other ascites; J90 Pleural effusion, not elsewhere classified; K76.6 Portal hypertension; R09.02 Hypoxemia; E87.3 Alkalosis; R41.82 Altered mental status, unspecified; M79.18 Myalgia, other site; E72.20 Disorder of urea cycle metabolism, unspecified; R53.1 Weakness; E11.9 Type 2 diabetes mellitus without complications; I12.9 Hypertensive chronic kidney disease with stage 1 through stage 4 chronic kidney disease, or unspecified chronic kidney disease; E03.9 Hypothyroidism, unspecified; K21.9 Gastro-esophageal reflux disease without esophagitis; L40.50 Arthropathic psoriasis, unspecified; N18.9 Chronic kidney disease, unspecified; E66.9 Obesity, unspecified; Z68.33 Body mass index [BMI] 33.0-33.9, adult; Z79.899 Other long term (current) drug therapy; Z79.4 Long term (current) use of insulin; Z87.891 Personal history of nicotine dependence; Z90.49 Acquired absence of other specified parts of digestive tract
CPT/HCPCS: 36415; 36600; 70450; 71045; 74176; 76705; 80048; 80053; 80076; 80143; 81001; 82077; 82140; 82550; 82553; 82803; 83605; 84443; 84484; 85025; 85379; 85610; 85730; 87040; 87631; 93005; 93041; 93970; 96372; 99283; 99285; G0378; J1650

== ENCOUNTER 2021-02-21 14:22 | Emergency (ER) | payer OTHER ==
[~2021-02-21] VITALS: Ht 162.6 cm; Wt 93.9 kg
[~2021-02-21 14:22] MED LIST changes: +PATIENT COMMENT
[2021-02-21] MEDS ORDERED: LACTULOSE 20 GM/30 ML SYRUP UD PO ONE (14:45)
[2021-02-21 15:24] LABS: HEMATOCRIT 26.2 % (36.0-47.0); HEMOGLOBIN 8.1 g/dl (12.0-15.5); MEAN CORPUSCULAR HEMOGLOBIN 30.8 pg (27.0-33.0); MEAN CORPUSCULAR HGB CONC 30.9 g/dl (32.0-36.5); MEAN CORPUSCULAR VOLUME 99.6 fl (80.0-96.0); PLATELET COUNT, AUTOMATED 148 10^3/uL (150-450); RED BLOOD COUNT 2.63 10^6/uL (4.00-5.40); WHITE BLOOD COUNT 4.1 10^3/uL (4.0-10.0)
--- NOTE | 2021-02-21 15:42 | REP ---
INDICATION: Altered Mental Status. COMPARISON: 01/28/2021. TECHNIQUE: SINGLE PORTABLE AP VIEW OF THE CHEST WAS PERFORMED. FINDINGS: There is mild to moderate left effusion. There is mild patchy atelectasis or infiltrate in the left lung base. The right lung is clear. The heart and mediastinum are unremarkable. IMPRESSION: [id number]-[id number] left effusion with adjacent left base atelectasis/infiltrate. <Electronically signed by Santana Pacheco > 02/21/21 [id number]
[2021-02-21 15:57] LABS: ALBUMIN 2.5 GM/DL (3.2-5.2); ALT/SGPT 10 U/L (12-78); BILIRUBIN,DIRECT 0.4 MG/DL (0.0-0.2); BILIRUBIN,TOTAL 0.8 MG/DL (0.2-1.0); BLOOD UREA NITROGEN 21 MG/DL (7-18); CALCIUM LEVEL 8.3 MG/DL (8.8-10.2); CARBON DIOXIDE LEVEL 26 MEQ/L (21-32); CHLORIDE LEVEL 108 MEQ/L (98-107); CK-MB VALUE MASS 4.6 NG/ML (<3.6); CPK CREATINE PHOSPHOKINASE 92 U/L (26-192); CREATININE FOR GFR 1.03 MG/DL (0.55-1.30); ETHYL ALCOHOL (ETHANOL) < 0.003 % (0.000-0.010); GLOMERULAR FILTRATION RATE 57.6 (>45); GLUCOSE, FASTING 225 MG/DL (70-100); SODIUM LEVEL 138 MEQ/L (136-145); TOTAL PROTEIN 6.3 GM/DL (6.4-8.2); TROPONIN I < 0.02 NG/ML (< 0.10)
[2021-02-21 15:59] LABS: ATYPICAL LYMPH 7 % (0-5); BASOPHILS 1 % (0-1); EOSINOPHILS 5 % (0-3); LYMPHOCYTES 27 % (16-44); MONOCYTES 5 % (0-5); NEUTROPHILS 54 % (28-66)
[2021-02-21 16:00] LABS: PLATELET ESTIMATE NORMAL (NORMAL)
--- NOTE | 2021-02-21 16:05 | REP ---
INDICATION: Altered Mental Status. COMPARISON: 01/28/2021. TECHNIQUE: CT BRAIN PERFORMED IN THE AXIAL PLANE. CORONAL RECONSTRUCTION IMAGES ARE PERFORMED. FINDINGS: THE VENTRICLES ARE NORMAL IN SIZE AND POSITION. THERE IS NO MIDLINE SHIFT OR MASS EFFECT. PACHECO-WHITE DIFFERENTIATION IS WELL MAINTAINED. THERE IS NO ACUTE INTRACRANIAL HEMORRHAGE OR EXTRA-AXIAL FLUID COLLECTION. BONE WINDOW EXAMINATION IS UNREMARKABLE. VISUALIZED MASTOID AIR CELLS AND PARANASAL SINUSES ARE CLEAR. IMPRESSION: NEGATIVE NONCONTRAST CT BRAIN. <Electronically signed by Santana Pacheco > 02/21/21 [id number]
--- NOTE | 2021-02-21 16:09 | REP ---
INDICATION: trauma. COMPARISON: 08/01/2020. TECHNIQUE: CT cervical spine performed in the axial plane, with sagittal and coronal reconstruction images performed. FINDINGS: There is no acute compression fracture or malalignment. There is no prevertebral soft tissue swelling. Moderate spurring is seen at C6 and C7 with associated moderate disc space narrowing and subchondral sclerosis at that level. Diffuse narrowing, sclerosis and spurring is seen at the posterior facet joints bilaterally.. There is normal cervical lordosis. There is no abnormal density in the spinal canal. IMPRESSION: No evidence of acute fracture or dislocation. <Electronically signed by Santana Pacheco > 02/21/21 [id number]
--- NOTE | 2021-02-21 16:21 | ECGEPIP ---
[facility] - ED Test Date: 2021-02-21 Pat Name: AUDREY VILLALOBOS Department: Room: - Gender: Female Efficiency Manager: JAMIE : 1955 Requested By: Therese Mohr Order Number: [id number] Reading MD: Gregg Garnett Measurements Intervals [place] Rate: 64 P: 9 HI: 142 QRS: -27 QRSD: 108 T: 37 QT: 450 QTc: 464 Interpretive Statements Normal sinus rhythm INCOMPLETE RIGHT BUNDLE BRANCH BLOCK Delayed anterior R wave progression Similar to tracing done 01-19-21 Electronically Signed on 02-21-2021 16:21:13 EDT by Gregg Garnett
--- NOTE | 2021-02-21 16:24 | REP ---
INDICATION: trauma. COMPARISON: CT abdomen and pelvis 01/28/2021, CT thoracic spine 08/01/2020. TECHNIQUE: Axial CT images performed with sagittal and coronal reconstruction images. FINDINGS: No acute compression fracture is seen. There is normal thoracic kyphosis and alignment. There is moderate diffuse bridging osteophytosis seen anteriorly. Mild disc space narrowing and subchondral sclerosis is seen at virtually all levels. The spinal canal is adequate with no abnormal density within the canal. Old left 5th through 8th rib fractures are noted. As seen on the prior CT of 01/28/2021 a left pleural effusion is present with adjacent left base atelectasis/infiltrate. IMPRESSION: No acute fracture or dislocation. Degenerative changes. Left pleural effusion again noted with adjacent atelectasis/infiltrate. <Electronically signed by Santana Pacheco > 02/21/21 [id number]
--- NOTE | 2021-02-21 16:28 | REP ---
INDICATION: trauma. COMPARISON: CT abdomen pelvis 01/28/2021. TECHNIQUE: Axial CT images performed with sagittal and coronal reconstruction images. FINDINGS: There is no fracture or dislocation. Vertebral bodies are normal in height and well aligned with normal lumbar lordosis. Disc spaces are well preserved. Moderate narrowing, subchondral sclerosis and spurring is seen at the posterior facet joints of L4-5 and L5-S1. ascites fluid is again seen in the abdomen and pelvis. No abnormal density is seen in the spinal canal. IMPRESSION: No fracture or dislocation. <Electronically signed by Santana Pacheco > 02/21/21 [id number]
[2021-02-21 17:33] LABS: AMPHETAMINES LEVEL URINE NEGATIVE (NEGATIVE); BARBITURATES URINE NEGATIVE (NEGATIVE); BENZODIAZEPINES URINE NEGATIVE (NEGATIVE); CANNABINOIDS URINE NEGATIVE (NEGATIVE); COCAINE METABOLITE URINE NEGATIVE (NEGATIVE); METHADONE URINE NEGATIVE (NEGATIVE); OPIATES URINE NEGATIVE (NEGATIVE); PHENCYCLIDINE URINE NEGATIVE (NEGATIVE)
[2021-02-21 18:58] VITALS: BP 116/56
--- NOTE | 2021-02-22 11:26 | ED PDOC ---
Post-Departure Follow-Up sylvie garcia faxed formal report of ct t spine and cxr for fu Heidy Scanlon MD Feb 22, 2021 11:26
== END 2021-02-21 19:00 | disposition home or self-care (01) ==
LOC: M ED 14:22
DX: D64.9 Anemia, unspecified (principal); K71.3 Toxic liver disease with chronic persistent hepatitis; I45.19 Other right bundle-branch block; E11.9 Type 2 diabetes mellitus without complications; I10 Essential (primary) hypertension; K74.60 Unspecified cirrhosis of liver; K75.81 Nonalcoholic steatohepatitis (NASH); J90 Pleural effusion, not elsewhere classified; Z79.4 Long term (current) use of insulin; Z79.899 Other long term (current) drug therapy

== ENCOUNTER 2021-02-26 13:56 | Observation (INO) | payer OTHER ==
[~2021-02-26] VITALS: Ht 162.6 cm; Wt 95.9 kg
[2021-02-26] VITALS (7 sets, daily range): BP systolic 119–134; BP diastolic 65–71
[2021-02-26] MEDS ORDERED: TORS10TA3 PO (14:08)
[2021-02-26 15:49] LABS: HEMATOCRIT 24.4 % (36.0-47.0); HEMOGLOBIN 7.5 g/dl (12.0-15.5); MEAN CORPUSCULAR HEMOGLOBIN 31.5 pg (27.0-33.0); MEAN CORPUSCULAR HGB CONC 30.7 g/dl (32.0-36.5); MEAN CORPUSCULAR VOLUME 102.5 fl (80.0-96.0); PLATELET COUNT, AUTOMATED 150 10^3/uL (150-450); RED BLOOD COUNT 2.38 10^6/uL (4.00-5.40); WHITE BLOOD COUNT 4.5 10^3/uL (4.0-10.0)
[2021-02-26 16:07] LABS: INR 1.28; PROTHROMBIN TIME 16.3 SECONDS (12.5-14.3)
[2021-02-26 16:13] LABS: ANISOCYTOSIS 1+; ATYPICAL LYMPH 7 % (0-5); BASOPHILS 3 % (0-1); EOSINOPHILS 3 % (0-3); HYPOCHROMASIA 1+; LYMPHOCYTES 30 % (16-44); MONOCYTES 7 % (0-5); NEUTROPHILS 50 % (28-66); PLATELET ESTIMATE NORMAL (NORMAL)
[2021-02-26 16:23] LABS: ALBUMIN 2.3 GM/DL (3.2-5.2); BILIRUBIN,TOTAL 0.4 MG/DL (0.2-1.0); CALCIUM LEVEL 8.7 MG/DL (8.8-10.2); CREATININE FOR GFR 1.04 MG/DL (0.55-1.30); POTASSIUM SERUM 4.7 MEQ/L (3.5-5.1); TOTAL PROTEIN 5.9 GM/DL (6.4-8.2)
--- NOTE | 2021-02-26 16:43 | REP ---
INDICATION: abn labs. COMPARISON: 02/21/2021. TECHNIQUE: SINGLE PORTABLE AP VIEW OF THE CHEST WAS PERFORMED. FINDINGS: Right lung remains clear. Heart and mediastinum are unchanged. Left pleural effusion is unchanged. There is mild increase in left basilar atelectasis/infiltrate. IMPRESSION: Left pleural effusion is unchanged. There is mild increase in left basilar atelectasis/infiltrate. <Electronically signed by Santana Pacheco > 02/26/21 [id number]
[2021-02-26] MEDS ORDERED: MIDO5TA PO (17:17)
[2021-02-26] MEDS ORDERED: GLUCOSE 4GM CHEW TABLET PO PRN (17:45)
[2021-02-26] MEDS ORDERED: GLUCAGON INJ 1MG VIAL SC PRN (17:45)
[2021-02-26] MEDS ORDERED: ALBUTEROL 90 MCG/ACT 8GM HFA INHALER INH PRN (17:45)
[2021-02-26] MEDS ORDERED: DEXTROSE 50% 50 ML SYRINGE IV PRN (17:45)
--- NOTE | 2021-02-26 18:08 | HPE ---
HISTORY AND PHYSICAL DATE OF ADMISSION: 02/26/2021 CHIEF COMPLAINT: Anemia. HISTORY OF PRESENT ILLNESS: Christina Ngo is a 65-year-old, cirrhosis secondary to nonalcoholic steatohepatitis who has a history of esophageal varices which have been banded. She had bright red blood per rectum recently that was attributed to hemorrhoids. She had lab work through her primary care provider, was anemic and was sent to the Emergency Room for transfusion. She has had a number of hospitalizations for this, most recently January of this year. She has had paracenteses performed. She also has stage II-III chronic kidney disease and is followed by Nephrology, hypertensive heart disease, history of gout, psoriatic arthritis. SURGICAL HISTORY: Tonsillectomy, bilateral cataract extraction, cholecystectomy. SOCIAL HISTORY: No smoking or alcohol. FAMILY HISTORY: Mother had atrial fibrillation, COPD, diabetes. One brother had diabetes, coronary disease, one brother had colon cancer. REVIEW OF SYSTEMS: No rectal bleeding, epistaxis, hematemesis for the last several days. No fevers or chills, nights. Chronically short of breath, abdominal distention is stable. PHYSICAL EXAMINATION: VITAL SIGNS: Blood pressure 154/70, respiratory rate 20, 88% O2 saturation. GENERAL APPEARANCE: Alert, conversant, no distress. There is some mild asterixis present. HEENT: Pupils equal, round, reactive to light. Tympanic membranes (TMs) and oropharynx benign. NECK: No masses. LUNGS: Decreased breath sounds but clear. HEART: Regular rate and rhythm. No murmur. ABDOMEN: Distended with ascites, is nontender. EXTREMITIES: No clubbing, cyanosis. 1+ peripheral edema. NEUROLOGIC: She moves all extremities equally. There is some asterixis present. LABS: White count 4.5, hemoglobin 7.5, platelets 150. Sodium 142, potassium 4.7. Creatinine 1.0. GFR 57. Ammonia level 124. INR 1.28. Chest x-ray shows unchanged left pleural effusion. IMPRESSION AND PLAN: 1. Anemia secondary to GI blood loss, apparently hemorrhoidal bleeding. She will be admit to a medical bed, typed and crossed for 2 units of packed red blood cells, and transfused 2 units of packed red blood cells. 2. Hepatic encephalopathy. We will augment her medications and recheck an ammonia level in the morning. 3. Chronic kidney disease. It is mild. Her creatinine is at its baseline. 4. Diabetes. Sliding scale Insulin coverage ordered. Anticipate discharge in the morning after transfusion. ADDENDUM: Most recent upper endoscopy was 12/07/[address] Quezada. Grade 2 varices were found lower through the esophagus. Three bands were placed. Mild portal hypertensive gastropathy was found. Recommended continuing a non-selective beta samir therapy for prophylaxis. Also had a colonoscopy on that day. Internal hemorrhoids noted. One polyp removed. No tubulovillous adenoma. It looks like the patient has not been kept up with surveillance endoscopy. 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 Not sure what call arrangements are available for the weekend. If patient is discharged, would recommend primary care provider make prompt referral to gastroenterology for upper endoscopy, as patient is overdue for surveillance endoscopy for her history of varices. Addendum dictated: CADEN 02/26/2021 1748 Addendum transcribed: talat 02/26/2021 1755 BRIAN
--- NOTE | 2021-02-26 20:01 | ECGEPIP ---
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
[2021-02-26] MEDS: LACTULOSE 20 GM/30 ML SYRUP UD PO SCH (20:06)
[2021-02-26] MEDS: FUROSEMIDE 40MG/4ML VIAL (J1940) IV SCH (20:07)
[2021-02-26] MEDS: HumaLOG INSULIN (NovoLOG) PER UNIT SC SCH (21:00)
[2021-02-26] MEDS: MAGNESIUM OXIDE 400MG TAB (MAG-OX) PO SCH (22:25)
[2021-02-26] MEDS: GABAPENTIN 300 MG CAP PO SCH (22:25)
[2021-02-26] MEDS: PANTOPRAZOLE 40MG VIAL (C9113 PER 1) IV SCH (22:26)
[2021-02-27] VITALS (7 sets, daily range): BP systolic 111–147; BP diastolic 45–76
[2021-02-27] MEDS: FUROSEMIDE 40MG/4ML VIAL (J1940) IV SCH ×5 (00:44→23:51)
[2021-02-27] MEDS: LACTULOSE 20 GM/30 ML SYRUP UD PO SCH ×5 (00:44→23:51)
[2021-02-27] MEDS ORDERED: BACLOFEN 5MG PER 1/2 TABLET PO PRN (01:55)
[2021-02-27 05:39] LABS: HEMATOCRIT 28.9 % (36.0-47.0); HEMOGLOBIN 8.9 g/dl (12.0-15.5); MEAN CORPUSCULAR HEMOGLOBIN 29.3 pg (27.0-33.0); MEAN CORPUSCULAR HGB CONC 30.8 g/dl (32.0-36.5); MEAN CORPUSCULAR VOLUME 95.1 fl (80.0-96.0); PLATELET COUNT, AUTOMATED 164 10^3/uL (150-450); RED BLOOD COUNT 3.04 10^6/uL (4.00-5.40); WHITE BLOOD COUNT 4.9 10^3/uL (4.0-10.0)
[2021-02-27] MEDS: LEVOTHYROXINE 25MCG TABLET (0.025MG) PO SCH (06:07)
[2021-02-27 06:12] LABS: ALBUMIN 2.5 GM/DL (3.2-5.2); BILIRUBIN,TOTAL 1.3 MG/DL (0.2-1.0); CREATININE FOR GFR 1.05 MG/DL (0.55-1.30); GLOMERULAR FILTRATION RATE 56.3 (>45); MAGNESIUM LEVEL 2.1 MG/DL (1.8-2.4); POTASSIUM SERUM 4.1 MEQ/L (3.5-5.1); TOTAL PROTEIN 6.1 GM/DL (6.4-8.2)
[2021-02-27] MEDS: HumaLOG INSULIN (NovoLOG) PER UNIT SC SCH ×4 (08:40→20:37)
[2021-02-27] MEDS: GABAPENTIN 300 MG CAP PO SCH ×2 (08:41→20:37)
[2021-02-27] MEDS: allopurinoL 100 MG TAB PO SCH (08:41)
[2021-02-27] MEDS: SPIRONOLACTONE 25 MG TAB PO SCH (08:41)
[2021-02-27] MEDS: MAGNESIUM OXIDE 400MG TAB (MAG-OX) PO SCH ×2 (08:42→20:37)
[2021-02-27] MEDS: PANTOPRAZOLE 40MG VIAL (C9113 PER 1) IV SCH ×2 (08:42→20:37)
[2021-02-27] MEDS ORDERED: BACLOFEN 5MG PER 1/2 TABLET PO SCH (09:00)
[2021-02-27] MEDS: ONDANSETRON 4MG/2ML VIAL IV PRN ×2 (11:00→18:57)
[2021-02-27 12:48] LABS: HEMATOCRIT 28.5 % (36.0-47.0); HEMOGLOBIN 9.1 g/dl (12.0-15.5); MEAN CORPUSCULAR HEMOGLOBIN 30.3 pg (27.0-33.0); MEAN CORPUSCULAR HGB CONC 31.9 g/dl (32.0-36.5); PLATELET COUNT, AUTOMATED 169 10^3/uL (150-450); WHITE BLOOD COUNT 5.9 10^3/uL (4.0-10.0)
--- NOTE | 2021-02-27 14:08 | IPNPDOC ---
Subjective Date Seen The patient was seen on 02/27/21. Subjective Chief Complaint/HPI Mrs. Bennett is a 65 year old female with nonalcoholic cirrhosis who was sent here for anemia. She has hemorrhoids and has been having bright red blood per rectum. Today it has been less. Otherwise, she has been a little nauseous this morning after breakfast. Denies chest pain or dyspnea Objective Physical Examination General Exam: Positive: Alert, Cooperative Eye Exam: Positive: EOMI Neck Exam: Positive: Supple Chest Exam: Positive: Clear to auscultation Heart Exam: Positive: Rate Normal, Regular Rhythm Abdomen Exam: Positive: Normal bowel sounds, Soft; Negative: Tenderness Extremity Exam: Positive: Edema Neuro Exam: Positive: Normal Speech Psych Exam: Positive: Mental status NL, Mood NL Assessment /Plan Assessment Mrs. Bennett is a 65 year old female with nonalcoholic cirrhosis who was sent here for anemia 2/2 to hemorrhoids. She was transfused with 2u pRBC late yesterday ev ening. Will continue trending CBC today. If remains stable, anticipate discharge tomorrow morning. Plan/VTE VTE Prophylaxis Ordered?: Yes Plan 1. Anemia secondary to GI blood loss -Bright red blood per rectum -Patient does have hemorrhoids. -Transfused 2u in the ED -Monitor CBC 2. Nonalcoholic cirrhosis -Continue with lactulose, spironolactone, and lasix 3. IDDM -Continue carbohydrate consistent diet -Sliding scale insulin 4. Hypothyroidism -Continue levothyroxine 5. CKD -Stable -Supportive care 6. GERD -Continue PPI 7. DVT ppx -No chemical ppx due to hemorhoid bleeding. SCD Disposition: If CBC remains stable, anticipate discharge tomorrow VS, I&O, 24H, Segun Vital Signs/I&O Vital Signs Date Time Temp Pulse Resp B/P (MAP) Pulse Ox O2 Delivery O2 Flow Rate FiO2 02/27/21 06:00 98.0 97 18 111/45 (67) 92 Room Air 02/26/21 22:00 2.0 I&O- Last 24 Hours up to 6 AM 02/27/21 06:00 Intake Total 1720 ml Output Total 1700 ml Balance 20 ml Laboratory Data 24H LABS Laboratory Tests 2 02/26/21 15:38: Neutrophils (%) (Auto) , Nucleated Red Blood Cells % (auto) 0.0, Neutrophils 50, Lymphocytes (Manual) 30, Monocytes (Manual) 7H, Eosinophils (Manual) 3, Basophils (Manual) 3H, Atypical Lymphocytes 7H, Hypochromasia 1+, Anisocytosis 1+, Macrocytosis 1+, Platelet Estimate NORMAL, Prothrombin Time 16.3H, Prothromb Time International Ratio 1.28, Anion Gap 5L, Glomerular Filtration Rate 57.0, Calcium Level 8.7L, Total Bilirubin 0.4, Aspartate Amino Transf (AST/SGOT) 32, Alanine Aminotransferase (ALT/SGPT) 13, Alkaline Phosphatase 216H, Ammonia 126H, ND-[id number]-Type Natriuretic Peptide 156H, Total Protein 5.9L, Albumin 2.3L, Albumin/Globulin Ratio 0.6L 02/26/21 22:26: Bedside Glucose (Misc Panel) 173H 02/27/21 05:22: Nucleated Red Blood Cells % (auto) 0.0, Anion Gap 8, Glomerular Filtration Rate 56.3, Calcium Level 9.0, Total Bilirubin 1.3#H, Aspartate Amino Transf (AST/SGOT) 33, Alanine Aminotransferase (ALT/SGPT) 12, Alkaline Phosphatase 192H, Ammonia 68H, Total Protein 6.1L, Albumin 2.5L, Albumin/Globulin Ratio 0.7L, Magnesium Level 2.1 02/27/21 11:39: Bedside Glucose (Misc Panel) 179H 02/27/21 11:56: Nucleated Red Blood Cells % (auto) 0.0 CBC/BMP Laboratory Tests 02/26/21 15:38 02/27/21 05:22 02/27/21 11:56 Microbiology Microbiology 02/26/21 Respiratory Virus Panel (PCR) ([facility]) - Final, Complete LINOSUSANNAHRosario GRAHAM Feb 27, 2021 14:08
[2021-02-27] MEDS ORDERED: tiZANidine 4 MG TAB PO PRN (18:35)
[2021-02-27 18:46] LABS: HEMOGLOBIN 9.8 g/dl (12.0-15.5); MEAN CORPUSCULAR HGB CONC 30.6 g/dl (32.0-36.5); MEAN CORPUSCULAR VOLUME 97.9 fl (80.0-96.0); PLATELET COUNT, AUTOMATED 175 10^3/uL (150-450); RED BLOOD COUNT 3.27 10^6/uL (4.00-5.40); WHITE BLOOD COUNT 6.6 10^3/uL (4.0-10.0)
[2021-02-28 00:16] LABS: HEMATOCRIT 25.8 % (36.0-47.0); HEMOGLOBIN 8.1 g/dl (12.0-15.5); MEAN CORPUSCULAR HEMOGLOBIN 30.1 pg (27.0-33.0); MEAN CORPUSCULAR HGB CONC 31.4 g/dl (32.0-36.5); MEAN CORPUSCULAR VOLUME 95.9 fl (80.0-96.0); PLATELET COUNT, AUTOMATED 135 10^3/uL (150-450); RED BLOOD COUNT 2.69 10^6/uL (4.00-5.40); WHITE BLOOD COUNT 4.4 10^3/uL (4.0-10.0)
[2021-02-28] MEDS: LACTULOSE 20 GM/30 ML SYRUP UD PO SCH ×2 (05:32→12:00)
[2021-02-28] MEDS: FUROSEMIDE 40MG/4ML VIAL (J1940) IV SCH ×2 (05:32→13:07)
[2021-02-28] MEDS: LEVOTHYROXINE 25MCG TABLET (0.025MG) PO SCH (05:32)
[2021-02-28 06:00] VITALS: BP 131/63
[2021-02-28 07:31] LABS: HEMATOCRIT 28.1 % (36.0-47.0); HEMOGLOBIN 8.6 g/dl (12.0-15.5); MEAN CORPUSCULAR HEMOGLOBIN 29.6 pg (27.0-33.0); MEAN CORPUSCULAR HGB CONC 30.6 g/dl (32.0-36.5); MEAN CORPUSCULAR VOLUME 96.6 fl (80.0-96.0); PLATELET COUNT, AUTOMATED 156 10^3/uL (150-450); RED BLOOD COUNT 2.91 10^6/uL (4.00-5.40); WHITE BLOOD COUNT 4.4 10^3/uL (4.0-10.0)
[2021-02-28 07:56] LABS: ALBUMIN 2.4 GM/DL (3.2-5.2); CALCIUM LEVEL 8.9 MG/DL (8.8-10.2); CREATININE FOR GFR 1.3 MG/DL (0.55-1.30); POTASSIUM SERUM 3.6 MEQ/L (3.5-5.1); TOTAL PROTEIN 6.1 GM/DL (6.4-8.2)
[2021-02-28] MEDS: MAGNESIUM OXIDE 400MG TAB (MAG-OX) PO SCH (08:26)
[2021-02-28] MEDS: HumaLOG INSULIN (NovoLOG) PER UNIT SC SCH ×2 (08:26→13:07)
[2021-02-28] MEDS: allopurinoL 100 MG TAB PO SCH (08:26)
[2021-02-28] MEDS: GABAPENTIN 300 MG CAP PO SCH (08:26)
[2021-02-28] MEDS: PANTOPRAZOLE 40MG VIAL (C9113 PER 1) IV SCH (08:26)
[2021-02-28] MEDS: SPIRONOLACTONE 25 MG TAB PO SCH (08:26)
[2021-02-28 11:33] LABS: HEMATOCRIT 27.4 % (36.0-47.0); HEMOGLOBIN 8.4 g/dl (12.0-15.5); MEAN CORPUSCULAR HEMOGLOBIN 29.8 pg (27.0-33.0); MEAN CORPUSCULAR HGB CONC 30.7 g/dl (32.0-36.5); MEAN CORPUSCULAR VOLUME 97.2 fl (80.0-96.0); PLATELET COUNT, AUTOMATED 129 10^3/uL (150-450); RED BLOOD COUNT 2.82 10^6/uL (4.00-5.40); WHITE BLOOD COUNT 4.3 10^3/uL (4.0-10.0)
[2021-02-28 14:00] VITALS: BP 145/76
--- NOTE | 2021-02-28 21:24 | DS.PDOC ---
Discharge Summary General Date of Admission Feb 26, 2021 Date of Discharge Feb 28, 2021 Discharge Summary PROCEDURES PERFORMED DURING STAY: None ADMITTING DIAGNOSES: 1. Anemia secondary to GI blood loss from hemorrhoids 2. Hepatic encephalopathy 3. Chronic kidney disease 4. IDDM 5. Nonalcoholic cirrhosis 6. Hypothyroidism 7. GERD DISCHARGE DIAGNOSES: 1. Anemia secondary to GI blood loss from hemorrhoids 2. Hepatic encephalopathy 3. Chronic kidney disease 4. IDDM 5. Nonalcoholic cirrhosis 6. Hypothyroidism 7. GERD COMPLICATIONS/CHIEF COMPLAINT: Gen Med. HISTORY OF PRESENT ILLNESS: Mrs. Ngo is a 65 year old female with nonalcoholic cirrhosis who presents with bright red blood per rectum which has been attributed to hemorrhoids. She had lab work done by her PCP which demonstrated anemia and patient was sent to the ED for blood transfusion. HOSPITAL COURSE: Patient was transfused 2u of blood and H&H has remained stable since transfusion. She has bowel movements with no blood in the toilet bowel, but blood on the toilet paper which is most likely hemorrhoid bleeding. Otherwise, she did have elevated ammonia at 126 at beginning of admission, but down trending to 52. Today, she feel well. Denies lightheadedness, chest pain, dyspnea, or abdominal pain. She tolerated her diet. She felt ready for home and was subsequently discharged home. DISCHARGE MEDICATIONS: Please see below. ALLERGIES: Please see below. PHYSICAL EXAMINATION ON DISCHARGE: VITAL SIGNS: Please see below. GENERAL: Comfortable, in no apparent distress HEENT: Head normocephalic, atraumatic NECK: Supple CARDIOVASCULAR EXAMINATION: Regular rate and rhythm RESPIRATORY EXAMINATION: Lungs clear to auscultation bilaterally ABDOMINAL EXAMINATION: Soft, non-tender, normal bowel sounds EXTREMITIES: Bilateral pitting edema SKIN: Warm and dry NEUROLOGICAL EXAMINATION: CN 3-12 grossly intact PSYCHIATRIC EXAMINATION: Normal mood and affect LABORATORY DATA: Please see below. PROGNOSIS: Good ACTIVITY: As tolerated. DIET: Carbohydrate consistent diet DISCHARGE PLAN: Home DISPOSITION: Home DISCHARGE INSTRUCTIONS: 1. Follow up with PCP in a week DISCHARGE CONDITION: Stable. Total time spent on discharge planning, discharge summary, and medication reconciliation: 40 minutes Vital Signs/I&Os Vital Signs Date Time Temp Pulse Resp B/P (MAP) Pulse Ox O2 Delivery O2 Flow Rate FiO2 02/28/21 14:00 98.8 102 18 145/76 (99) 92 Nasal Cannula 1.0 I&O- Last 24 Hours up to 6 AM 02/28/21 06:00 Intake Total 3860 ml Output Total 3450 ml Balance 410 ml Laboratory Data Labs 24H Laboratory Tests 2 02/28/21 00:10: Nucleated Red Blood Cells % (auto) 0.0 02/28/21 06:49: Bedside Glucose (Misc Panel) 169H 02/28/21 06:59: Nucleated Red Blood Cells % (auto) 0.0, Anion Gap 8, Glomerular Filtration Rate 44.0L, Calcium Level 8.9, Total Bilirubin 1.0, Aspartate Amino Transf (AST/SGOT) 26, Alanine Aminotransferase (ALT/SGPT) 12, Alkaline Phosphatase 165H, Ammonia 52H, Total Protein 6.1L, Albumin 2.4L, Albumin/Globulin Ratio 0.6L 02/28/21 11:19: Nucleated Red Blood Cells % (auto) 0.0 02/28/21 11:22: Bedside Glucose (Misc Panel) 251H CBC/BMP Laboratory Tests 02/28/21 00:10 02/28/21 06:59 02/28/21 11:19 FSBS Laboratory Tests Test 02/28/21 06:49 02/28/21 11:22 Range/Units Bedside Glucose (Misc Panel) 169 251 80-115 MG/DL Microbiology Microbiology 02/26/21 Respiratory Virus Panel (PCR) ([facility]) - Final, Complete Discharge Medications Scheduled Allopurinol (Allopurinol) 100 Mg Tab, 100 MG PO QHS, (Reported) Ascorbic Acid (Vitamin C) 1,000 Mg Tablet, 1,000 MG PO DAILY, (Reported) Cholecalciferol (Vitamin D3) (Vitamin D3) 1,000 Unit Tablet, 1,000 UNITS PO DAILY, (Reported) Gabapentin (Gabapentin) 300 Mg Capsule, 300 MG PO BID, (Reported) Insulin Human Lispro (Novolog) 100 U/Ml Inj, 1 DOSE SC ACHS, (Reported) PER SLIDING SCALE Lactulose (Lactulose) 10 Gm/15 Ml Solution, 30 ML PO TID, (Reported) Levothyroxine Sodium (Levothyroxine Sodium) 25 Mcg Tablet, 25 MCG PO DAILY, (Reported) Magnesium Oxide (Magnesium Oxide) 400 Mg Tablet, 800 MG PO BID, (Reported) Midodrine HCl (Midodrine HCl) 5 Mg Tablet, 5 MG PO BID, (Reported) Omeprazole (Omeprazole) 40 Mg Capsule.dr, 40 MG PO DAILY, (Reported) Spironolactone (Spironolactone) 25 Mg Tablet, 25 MG PO DAILY, (Reported) Torsemide (Torsemide) 10 Mg Tablet, 10 MG PO DAILY, (Reported) Scheduled PRN Albuterol Sulfate (Ventolin Hfa) 18 Gm Hfa.aer.ad, 2 PUFF INH Q4H PRN for SHORTNESS OF BREATH, (Reported) Tizanidine HCl (Tizanidine HCl) 2 Mg Tablet, 2 MG PO TID PRN for MUSCLE SPASMS, (Reported) Allergies Coded Allergies: No Known Drug Allergies (Verified Allergy, Unknown, 01/19/21) SUSANNAH HUYNH DO Feb 28, 2021 21:23
== END 2021-02-28 16:40 | disposition home or self-care (01) ==
LOC: M ED 13:56 → M MS5PR 13:57 → ENRESERV 20:36 → M MS5PR 21:55 → M ED 21:55 → M MS5PR 02-28 16:40 → M ED 02-28 16:40
PROVIDERS: ADMIT Family Medicine; ATTEND Family Medicine
DX: D62 Acute posthemorrhagic anemia (principal); K92.2 Gastrointestinal hemorrhage, unspecified; K64.9 Unspecified hemorrhoids; K72.90 Hepatic failure, unspecified without coma; N18.2 Chronic kidney disease, stage 2 (mild); E11.22 Type 2 diabetes mellitus with diabetic chronic kidney disease; K74.60 Unspecified cirrhosis of liver; E03.9 Hypothyroidism, unspecified; K21.9 Gastro-esophageal reflux disease without esophagitis; J90 Pleural effusion, not elsewhere classified; R06.02 Shortness of breath; I13.10 Hypertensive heart and chronic kidney disease without heart failure, with stage 1 through stage 4 chronic kidney disease, or unspecified chronic kidney disease; L40.50 Arthropathic psoriasis, unspecified; M10.9 Gout, unspecified; Z87.19 Personal history of other diseases of the digestive system; Z79.899 Other long term (current) drug therapy; Z79.4 Long term (current) use of insulin
CPT/HCPCS: 36415; 36430; 71045; 80053; 82140; 83735; 83880; 85025; 85027; 85610; 86850; 86900; 86901; 86920; 87798; 93005; 96374; 96375; 96376; 99285; C9113; G0378; J1940; J2405; P9016

== ENCOUNTER 2021-03-07 11:24 | Inpatient (IN) | payer OTHER ==
[~2021-03-07] VITALS: Ht 162.6 cm; Wt 92.9 kg
[2021-03-07] MEDS: LEVOTHYROXINE 25MCG TABLET (0.025MG) PO SCH (06:00)
[2021-03-07] MEDS: OMEPRAZOLE 20 MG CAP PO SCH (09:00)
[2021-03-07] MEDS: SPIRONOLACTONE 25 MG TAB PO SCH (09:00)
[2021-03-07] MEDS: TORSEMIDE 10 MG TABLET PO SCH (09:00)
[~2021-03-07 11:24] MED LIST changes: +TORS10TA3 PO
--- NOTE | 2021-03-07 11:55 | ECGEPIP ---
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
[2021-03-07] MEDS: MIDODRINE 5 MG TAB PO SCH (12:00)
[2021-03-07] MEDS: HumaLOG INSULIN (NovoLOG) PER UNIT SC SCH ×2 (12:00→18:00)
[2021-03-07 12:12] LABS: BASO % 0.5 % (0.0-1.0); EOS # 0.1 10^3/uL (0.0-0.5); EOS % 2.3 % (0.0-3.0); HEMATOCRIT 29.5 % (36.0-47.0); HEMOGLOBIN 9.2 g/dl (12.0-15.5); LYMPH # 0.9 10^3/uL (1.5-5.0); LYMPH % 14.1 % (24.0-44.0); MEAN CORPUSCULAR HEMOGLOBIN 30.3 pg (27.0-33.0); MEAN CORPUSCULAR HGB CONC 31.2 g/dl (32.0-36.5); MONO # 0.5 10^3/uL (0.0-0.8); MONO % 7.7 % (2.0-8.0); NEUTROPHILS # 4.6 10^3/uL (1.5-8.5); NEUTROPHILS % 74.9 % (36.0-66.0); PLATELET COUNT, AUTOMATED 122 10^3/uL (150-450); RED BLOOD COUNT 3.04 10^6/uL (4.00-5.40); WHITE BLOOD COUNT 6.1 10^3/uL (4.0-10.0)
[2021-03-07 12:24] LABS: INR 1.4; PROTHROMBIN TIME 17.4 SECONDS (12.5-14.3)
--- NOTE | 2021-03-07 12:28 | REP ---
INDICATION: AMS COMPARISON: 02/26/2021 TECHNIQUE: Portable AP view of the chest FINDINGS: The mediastinum and cardiac silhouette are stable and cardiomegaly is again noted. Lung kent demonstrate chronic changes and superimposed left lower lobe opacities suggesting moderate pleural effusion and atelectasis. Skeletal structures are intact. IMPRESSION: Relatively stable left lower lobe opacities consistent with moderate pleural effusion and left lower lobe atelectasis/consolidation. <Electronically signed by Michael Vincent > 03/07/21 [id number]
[2021-03-07 12:40] LABS: ALBUMIN 2.3 GM/DL (3.2-5.2); BILIRUBIN,DIRECT 0.4 MG/DL (0.0-0.2); BILIRUBIN,TOTAL 0.9 MG/DL (0.2-1.0); CREATININE FOR GFR 1.17 MG/DL (0.55-1.30); GLOMERULAR FILTRATION RATE 49.7 (>45); POTASSIUM SERUM 3.9 MEQ/L (3.5-5.1); TOTAL PROTEIN 6.2 GM/DL (6.4-8.2)
[2021-03-07] MEDS ORDERED: LACTULOSE 20 GM/30 ML SYRUP UD PO ONE (12:45)
[2021-03-07] MEDS ORDERED: GLUCOSE 4GM CHEW TABLET PO PRN (13:10)
[2021-03-07] MEDS ORDERED: DEXTROSE 50% 50 ML SYRINGE IV PRN (13:10)
[2021-03-07] MEDS ORDERED: GLUCAGON INJ 1MG VIAL SC PRN (13:10)
[2021-03-07 13:30] LABS: RSV AMPLIFICATION NEGATIVE (NEGATIVE)
--- NOTE | 2021-03-07 13:43 | HPEPDOC ---
[facility] Medical History & Physical Date of Admission Mar 07, 2021 Date of Service: Mar 07, 2021 History and Physical Chief complaint: Was brought to the hospital via EMS for altered mental status History of present illness: Patient is a 65-year-old female who was brought to the hospital via EMS for altered mental status. Upon arrival to emergency room, patient had lab w ork drawn that had revealed a significantly elevated ammonia. Hospitalist service was contacted for further evaluation. Currently patient is oriented to person is unable to answer any other specific questions. Information was acquired through the medical record. I have contacted the patients significant other, Dania Mclain. She reports that patient may or may not have been compliant with her medications. Ms. Mcalin reported that patient was here last week for transfusions and was scheduled to see Dr. Mccullough on Monday (03/08). Past Medical History: Cirrhosis 2/2 CMAPBELL History of ascites History of esophageal varices Thrombocytopenia 2/2 cirrhosis Hypotension (possibly 2/2 diuretics / cirrhosis) IDDM2 CKD3 Gout Neuropathy Obesity Vitamin D deficiency GERD Past Surgical History: Cholecystectomy Colonoscopy with polyp resection Cataract surgery Allergies: See below Medications: See below Family History: Information was obtained through chart review - Reported brother with history of colon cancer Social History: Information was obtained through chart review - Denies the use of alcohol or illicit drugs; prior smoker - Denies recent travel or sick contacts - Lives with significant other Review of Systems: 10 point review of systems complete, all negative otherwise stated in HPI Physical exam: - Vitals: BP [117/62], HR [67], RR [20], Sat [97%RA], Temp [98.7F] - General: Lying in bed, not appear to be in any distress, AAOx1 (only to person) - HEENT: NC, AT, PERRLA - CVS: RRR, +S1S2 - Lungs: Diminished breath sounds at L lung field, No appreciable wheezing / rales / rhonchi - Abdomen: Soft, Non-distended, Non-tender - Extremities: 1+ pitting edema bilaterally, No calf tenderness - Neuro: No focal motor or sensory deficit - Skin: No visible rashes Labs: See below Imaging: CXR 03/07: Relatively stable left lower lobe opacities consistent with moderate pleural effusion and left lower lobe atelectasis/consolidation. EKG: See below Assessment and Plan: Acute metabolic encephalopathy - likely 2/2 acute hepatic encephalopathy - likely 2/2 non-compliance with medications - Currently patient is oriented to person only - No focal deficits on exam - Ammonia level significantly elevated - Patient was given Lactulose in ER - Will c/w Lactulose 30ml [id number] to induced 3-4 BM daily - Will start Rifaxamin - Will start continuous pulse oximetry / neurological checks [id number] - Will keep patient NPO for now 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 - Prior history of ascites and esophageal varices - c/w Spironolactone / Torsemide / Midodrine Thrombocytopenia 2/2 cirrhosis - Appears to be stable compared to prior numbers Microcytic anemia - Hg appears to be higher than baseline - Will check anemia workup (Iron panel, B12, Folate, Reticulocyte count) - Will check stool for occult blood - Will trend H&H Hypotension - possibly 2/2 diuretics / cirrhosis - c/w Midodrine IDDM2 - Will start ISS CKD3 - Cr appears to be at baseline - c/w Diuretics as ordered Gout - Will hold Allopurinol Neuropathy - Will hold Gabapentin Obesity - Complicating medical care GERD - c/w Omeprazole DVT prophylaxis - Will start TEDs/Sequentials Disposition: - Call the patients significant other, Dania Mclain ([phone]) and updated them about plan of care - Awaiting clinical improvement Vital Signs Vital Signs Date Time Temp Pulse Resp B/P (MAP) Pulse Ox O2 Delivery O2 Flow Rate FiO2 03/07/21 11:31 98.7 67 20 117/62 97 Laboratory Data Labs 24H Laboratory Tests 2 03/07/21 11:43: Anion Gap 5L, Glomerular Filtration Rate 49.7, Calcium Level 8.0L, Total Bilirubin 0.9, Direct Bilirubin 0.4H, Aspartate Amino Transf (AST/SGOT) 29, Alanine Aminotransferase (ALT/SGPT) 10L, Alkaline Phosphatase 182H, Total Protein 6.2L, Albumin 2.3L, Albumin/Globulin Ratio 0.6L, Lipase 66L 03/07/21 11:44: Immature Granulocyte % (Auto) 0.5, Neutrophils (%) (Auto) 74.9H, Lymphocytes (%) (Auto) 14.1L, Monocytes (%) (Auto) 7.7, Eosinophils (%) (Auto) 2.3, Basophils (%) (Auto) 0.5, Neutrophils # (Auto) 4.6, Lymphocytes # (Auto) 0.9L, Monocytes # (Auto) 0.5, Eosinophils # (Auto) 0.1, Basophils # (Auto) 0.0, Nucleated Red Blood Cells % (auto) 0.0, Prothrombin Time 17.4H, Prothromb Time International Ratio 1.40, Ammonia 228H 03/07/21 11:57: POC pH (Misc Panel) 7.517H, POC Base Excess (Misc Panel) 11.0H, POC Saturated Percent O2 (Misc) 93L, POC pO2 (Misc Panel) 60.0L, POC pCO2 (Misc Panel) 41.6, POC HCO3 (Misc Panel) 33.7H, POC Total CO2 (Misc Panel) 35.0H 03/07/21 12:04: Coronavirus (COVID-19)(PCR) NEGATIVE, Influenza Type A (RT-PCR) NEGATIVE, Influenza Type B (RT-PCR) NEGATIVE, Respiratory Syncytial Virus (PCR) NEGATIVE CBC/BMP Laboratory Tests 03/07/21 11:43 03/07/21 11:44 Home Medications Scheduled Allopurinol (Allopurinol) 100 Mg Tab, 100 MG PO QHS Ascorbic Acid (Vitamin C) 1,000 Mg Tablet, 1,000 MG PO DAILY Cholecalciferol (Vitamin D3) (Vitamin D3) 1,000 Unit Tablet, 1,000 UNITS PO DAILY Gabapentin (Gabapentin) 300 Mg Capsule, 300 MG PO BID Insulin Human Lispro (Novolog) 100 U/Ml Inj, 1 DOSE SC ACHS PER SLIDING SCALE Lactulose (Lactulose) 10 Gm/15 Ml Solution, 30 ML PO TID Levothyroxine Sodium (Levothyroxine Sodium) 25 Mcg Tablet, 25 MCG PO DAILY Magnesium Oxide (Magnesium Oxide) 400 Mg Tablet, 800 MG PO BID Midodrine HCl (Midodrine HCl) 5 Mg Tablet, 5 MG PO BID Omeprazole (Omeprazole) 40 Mg Capsule.dr, 40 MG PO DAILY Spironolactone (Spironolactone) 25 Mg Tablet, 25 MG PO DAILY Torsemide (Torsemide) 10 Mg Tablet, 10 MG PO DAILY Scheduled PRN Albuterol Sulfate (Ventolin Hfa) 18 Gm Hfa.aer.ad, 2 PUFF INH Q4H PRN for SHORTNESS OF BREATH Tizanidine HCl (Tizanidine HCl) 2 Mg Tablet, 2 MG PO TID PRN for MUSCLE SPASMS Allergies Coded Allergies: No Known Drug Allergies (Verified Allergy, Unknown, 01/19/21) JUANA NERI MD Mar 07, 2021 13:43
[2021-03-07 14:01] LABS: PERCENT SATURATION 19.3 % (13.2-45.0)
--- NOTE | 2021-03-07 14:12 | REP ---
INDICATION: Evaluate for ascites COMPARISON: 01/28/2021 TECHNIQUE: Real time estrada scale ultrasound examination using curved array transducer. FINDINGS: Limited evaluation demonstrates mild ascites throughout the abdomen and most notably in the right lower quadrant. IMPRESSION: Mild amount of ascites primarily noted in the right lower quadrant. <Electronically signed by Michael Vincent > 03/07/21 [id number]
[2021-03-07 15:05] VITALS: BP 125/61
[2021-03-07 18:07] LABS: HEMATOCRIT 28.4 % (36.0-47.0); HEMOGLOBIN 8.8 g/dl (12.0-15.5)
[2021-03-07] MEDS: LACTULOSE 20 GM/30 ML SYRUP UD PO SCH (18:35)
[2021-03-07] MEDS: MAGNESIUM OXIDE 400MG TAB (MAG-OX) PO SCH ×2 (21:00→22:01)
[2021-03-07 21:51] VITALS: BP 125/74
[2021-03-07 22:00] VITALS: O2SAT 93
[2021-03-08 00:13] LABS: HEMATOCRIT 29.8 % (36.0-47.0); HEMOGLOBIN 9.3 g/dl (12.0-15.5)
[2021-03-08] MEDS: LACTULOSE 20 GM/30 ML SYRUP UD PO SCH ×4 (00:19→17:33)
[2021-03-08 06:00] VITALS: BP 130/60
[2021-03-08] MEDS: HumaLOG INSULIN (NovoLOG) PER UNIT SC SCH ×4 (06:00→17:33)
[2021-03-08 06:09] LABS: HEMATOCRIT 28.1 % (36.0-47.0); HEMOGLOBIN 8.7 g/dl (12.0-15.5); MEAN CORPUSCULAR HEMOGLOBIN 29.7 pg (27.0-33.0); MEAN CORPUSCULAR VOLUME 95.9 fl (80.0-96.0); PLATELET COUNT, AUTOMATED 160 10^3/uL (150-450); RED BLOOD COUNT 2.93 10^6/uL (4.00-5.40); WHITE BLOOD COUNT 6.8 10^3/uL (4.0-10.0)
[2021-03-08 06:26] LABS: EOSINOPHILS 1 % (0-3); LYMPHOCYTES 22 % (16-44); MONOCYTES 5 % (0-5); NEUTROPHILS 72 % (28-66)
[2021-03-08 06:27] LABS: ANISOCYTOSIS 2+; PLATELET ESTIMATE NORMAL (NORMAL)
[2021-03-08 06:29] LABS: CALCIUM LEVEL 8.5 MG/DL (8.8-10.2); CREATININE FOR GFR 1.07 MG/DL (0.55-1.30); GLOMERULAR FILTRATION RATE 55.1 (>45); POTASSIUM SERUM 3.6 MEQ/L (3.5-5.1)
[2021-03-08 06:54] LABS: FOLATE 19.5 NG/ML (>5.4)
[2021-03-08] MEDS: LEVOTHYROXINE 25MCG TABLET (0.025MG) PO SCH (06:55)
[2021-03-08] MEDS: MIDODRINE 5 MG TAB PO SCH ×2 (08:00→11:42)
[2021-03-08 08:20] VITALS: BP 144/74
[2021-03-08] MEDS ORDERED: D5W/0.45% SODIUM CHLORIDE 1,000 ML IV SCH (08:20)
[2021-03-08 08:30] VITALS: O2SAT 93
[2021-03-08] MEDS: OMEPRAZOLE 20 MG CAP PO SCH (09:00)
[2021-03-08] MEDS ORDERED: LACTULOSE 20 GM/30 ML SYRUP UD PR ONE ×2 (09:00→18:00)
[2021-03-08] MEDS: MAGNESIUM OXIDE 400MG TAB (MAG-OX) PO SCH ×2 (09:00→22:39)
--- NOTE | 2021-03-08 09:37 | REP ---
INDICATION: Confusion. COMPARISON: Comparison is made with prior CT brain studies from 02/21/2021, 01/28/2021, and 10/12/2020.. TECHNIQUE: Helical scanning is acquired. 5 mm axial images were reformatted. Coronal MPR images were generated. FINDINGS: Bone window settings demonstrate an intact bony calvarium. There is no evidence of skull fracture or incidental bony calvarial lesion. The visualized paranasal sinuses appear clear. No intraorbital abnormality is seen. On soft tissue window setting images; the lateral, third, and fourth ventricles are normal in size and position. Pacheco-white differentiation pattern is normal above and below the tentorium. There are is no evidence of intracranial hemorrhage. No mass, edema, infarction, or midline shift is seen. No extra-axial fluid collection is appreciated. There are 2 punctate dystrophic calcifications again noted on the right unchanged from multiple prior studies. IMPRESSION: Negative noncontrast head CT. <Electronically signed by Fox Cooper > 03/08/21 0934
--- NOTE | 2021-03-08 11:22 | IPNPDOC ---
Text Note Date of Service The patient was seen on 03/08/21. NOTE Subjective: Patient is a 65-year-old female who was brought to the hospital via EMS for altered mental status. Upon arrival to emergency room, patient had lab work drawn that had revealed a significantly elevated ammonia. Hospitalist service was contacted for further evaluation. Patient was seen and examined at the bedside. Patient still remains very disoriented, unable to answer specific questions or follow commands. Objective: Vitals (See below) General: Lying in bed, cannot follow commands, awake, responds to pain HEENT: NC, AT CVS: +S1S2 Lungs: Fair air entry b/l, no wheezing, rhonchi or rales Abdomen: Soft, nondistended and nontender Extremities: No evidence of edema, - Calf tenderness Imaging: CXR 03/07: Relatively stable left lower lobe opacities consistent with moderate pleural effusion and left lower lobe atelectasis/consolidation. CT head 03/08: Negative noncontrast head CT. Assessment and plan: Acute metabolic encephalopathy - likely 2/2 acute hepatic encephalopathy - likely 2/2 non-compliance with medications; possibly component of dehydration - Unable to follow commands - Does appear to move all 4 extremities - Ammonia level elevated, but has trended down - CT head negative - c/w Lactulose 30ml [id number] to induced 3-4 BM daily - Will give Lactulose enema now - c/w Rifaxamin once able to tolerate PO - c/w continuous pulse oximetry / neurological checks [id number] - Will remain NPO for now 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 - Prior history of ascites and esophageal varices - c/w Spironolactone / Torsemide / Midodrine s/p Thrombocytopenia 2/2 cirrhosis - Appears to be stable compared to prior numbers Microcytic anemia - likely 2/2 iron deficiency - Hg appears to be higher than baseline - Iron panel, B12, Folate, Reticulocyte count - noted - Stool for occult blood positive - H&H stable; will continue to trend Hypotension - possibly 2/2 diuretics / cirrhosis - c/w Midodrine IDDM2 - c/w ISS CKD3 - Cr appears to be at baseline - Will hold Diuretics - Will start gentle IV fluid hydration Gout - Will hold Allopurinol Neuropathy - Will hold Gabapentin Obesity - Complicating medical care GERD - Will hold Omeprazole PO - Will start Protonix IV q12h DVT prophylaxis - c/w TEDs/Sequentials Disposition: - Awaiting clinical improvement VS,Segun, I+O VS, Segun, I+O Laboratory Tests 03/07/21 11:43 03/07/21 11:44 03/07/21 17:59 03/07/21 23:59 03/08/21 05:53 Vital Signs Date Time Temp Pulse Resp B/P (MAP) Pulse Ox O2 Delivery O2 Flow Rate FiO2 03/08/21 08:30 93 Room Air 03/08/21 08:20 98.9 99 18 144/74 (97) JUANA NERI MD Mar 08, 2021 11:22
[2021-03-08] MEDS: PANTOPRAZOLE 40MG VIAL (C9113 PER 1) IV SCH ×2 (11:52→22:39)
[2021-03-08 13:06] LABS: HEMOGLOBIN 9.2 g/dl (12.0-15.5)
[2021-03-08 14:00] VITALS: BP 145/60
[2021-03-08 14:05] VITALS: BP 145/60
[2021-03-08] MEDS: ACETAMINOPHEN TAB 650MG DOSE (2X325MG) PO PRN (17:32)
[2021-03-08 19:12] LABS: HEMATOCRIT 30.3 % (36.0-47.0); HEMOGLOBIN 9.4 g/dl (12.0-15.5)
[2021-03-08 19:24] LABS: CALCIUM LEVEL 8.8 MG/DL (8.8-10.2); CREATININE FOR GFR 1.09 MG/DL (0.55-1.30); POTASSIUM SERUM 3.7 MEQ/L (3.5-5.1)
[2021-03-08 22:00] VITALS: BP 147/64; O2SAT 94
[2021-03-09 01:16] LABS: HEMATOCRIT 27.9 % (36.0-47.0); HEMOGLOBIN 8.5 g/dl (12.0-15.5)
[2021-03-09 06:00] VITALS: BP 136/61
[2021-03-09] MEDS: HumaLOG INSULIN (NovoLOG) PER UNIT SC SCH ×5 (06:00→23:46)
[2021-03-09] MEDS: LACTULOSE 20 GM/30 ML SYRUP UD PO SCH ×5 (06:12→23:46)
[2021-03-09] MEDS: LEVOTHYROXINE 25MCG TABLET (0.025MG) PO SCH (06:12)
[2021-03-09 06:47] LABS: BASO % 0.7 % (0.0-1.0); EOS # 0.2 10^3/uL (0.0-0.5); EOS % 3.5 % (0.0-3.0); HEMATOCRIT 29.6 % (36.0-47.0); LYMPH # 1.6 10^3/uL (1.5-5.0); LYMPH % 27.6 % (24.0-44.0); MEAN CORPUSCULAR HEMOGLOBIN 29.8 pg (27.0-33.0); MEAN CORPUSCULAR HGB CONC 30.4 g/dl (32.0-36.5); MONO # 0.8 10^3/uL (0.0-0.8); MONO % 13.6 % (2.0-8.0); NEUTROPHILS # 3.2 10^3/uL (1.5-8.5); NEUTROPHILS % 54.4 % (36.0-66.0); PLATELET COUNT, AUTOMATED 175 10^3/uL (150-450); RED BLOOD COUNT 3.02 10^6/uL (4.00-5.40); WHITE BLOOD COUNT 5.8 10^3/uL (4.0-10.0)
[2021-03-09 07:09] LABS: CALCIUM LEVEL 8.6 MG/DL (8.8-10.2); GLOMERULAR FILTRATION RATE 59.6 (>45); MAGNESIUM LEVEL 1.8 MG/DL (1.8-2.4); POTASSIUM SERUM 3.6 MEQ/L (3.5-5.1)
[2021-03-09 08:00] VITALS: BP 157/74
[2021-03-09] MEDS: MIDODRINE 5 MG TAB PO SCH ×2 (08:00→11:38)
[2021-03-09] MEDS: PANTOPRAZOLE 40MG VIAL (C9113 PER 1) IV SCH ×2 (08:40→20:39)
[2021-03-09] MEDS: MAGNESIUM OXIDE 400MG TAB (MAG-OX) PO SCH ×2 (08:40→20:39)
[2021-03-09 13:06] VITALS: BP 157/83
--- NOTE | 2021-03-09 13:55 | IPNPDOC ---
Text Note Date of Service The patient was seen on 03/09/21. NOTE Subjective: Patient seen and examined at bedside. No acute overnight events reported. Patient voices no new medical complaints this morning. Objective: General: NAD, lying comfortably in bed HEENT: NC/AT, edentulous Lungs: CTA B/L HEart: +S1S2, RRR, systolic murmur Abd: obese, soft, NT, +BS Ext: trace edema A/P: Patient is a 65-year-old female who was brought to the hospital via EMS for altered mental status. Upon arrival to emergency room, patient had lab work drawn that had revealed a significantly elevated ammonia. Hospitalist service was contacted for further evaluation. #Acute metabolic encephalopathy - likely 2/2 acute hepatic encephalopathy - likely 2/2 non-compliance with medications; possibly component of dehydration - Unable to follow commands - Does appear to move all 4 extremities - Ammonia level elevated, but has trended down - CT head negative - c/w Lactulose 30ml [id number] to induced 3-4 BM daily - c/w Rifaxamin once able to tolerate PO - c/w continuous pulse oximetry / neurological checks [id number] - Will remain NPO for now #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 - Prior history of ascites and esophageal varices - c/w Spironolactone / Torsemide / Midodrine #s/p Thrombocytopenia 2/2 cirrhosis - Appears to be stable compared to prior numbers #Microcytic anemia - likely 2/2 iron deficiency - Hg appears to be higher than baseline - Iron panel, B12, Folate, Reticulocyte count - noted - Stool for occult blood positive - H&H stable; will continue to trend #Hypotension - possibly 2/2 diuretics / cirrhosis - c/w Midodrine #IDDM2 - c/w ISS #CKD3 - Cr appears to be at baseline - Will hold Diuretics - Will start gentle IV fluid hydration #Gout - hold Allopurinol #Neuropathy - Will hold Gabapentin #Obesity - Complicating medical care #GERD - hold Omeprazole PO - Will start Protonix IV q12h #DVT prophylaxis - c/w TEDs/Sequentials Disposition: - pending clinical improvement VS,Fishbone, I+O VS, Fishbone, I+O Laboratory Tests 03/08/21 18:52 03/09/21 01:09 03/09/21 06:33 Vital Signs Date Time Temp Pulse Resp B/P (MAP) Pulse Ox O2 Delivery O2 Flow Rate FiO2 03/09/21 13:06 98.1 98 18 157/83 (107) 93 Room Air I&O- Last 24 Hours up to 6 AM 03/09/21 06:00 Intake Total 0 ml Output Total 0 ml Balance 0 ml JOYCE MCKINLEY MD Mar 09, 2021 13:55
[2021-03-09 20:43] VITALS: BP 145/70
[2021-03-10] MEDS: LACTULOSE 20 GM/30 ML SYRUP UD PO SCH ×4 (05:39→23:37)
[2021-03-10 06:10] VITALS: BP 153/75
[2021-03-10] MEDS: LEVOTHYROXINE 25MCG TABLET (0.025MG) PO SCH (06:10)
[2021-03-10] MEDS: HumaLOG INSULIN (NovoLOG) PER UNIT SC SCH ×4 (06:10→21:00)
[2021-03-10 06:16] LABS: HEMATOCRIT 26.5 % (36.0-47.0); HEMOGLOBIN 8.1 g/dl (12.0-15.5); MEAN CORPUSCULAR HEMOGLOBIN 30.1 pg (27.0-33.0); MEAN CORPUSCULAR HGB CONC 30.6 g/dl (32.0-36.5); MEAN CORPUSCULAR VOLUME 98.5 fl (80.0-96.0); PLATELET COUNT, AUTOMATED 146 10^3/uL (150-450); RED BLOOD COUNT 2.69 10^6/uL (4.00-5.40); WHITE BLOOD COUNT 5.2 10^3/uL (4.0-10.0)
[2021-03-10 06:38] LABS: BLOOD UREA NITROGEN 17 MG/DL (7-18); CALCIUM LEVEL 8.5 MG/DL (8.8-10.2); CARBON DIOXIDE LEVEL 31 MEQ/L (21-32); CHLORIDE LEVEL 111 MEQ/L (98-107); GLOMERULAR FILTRATION RATE > 60.0 (>45); GLUCOSE, FASTING 143 MG/DL (70-100); POTASSIUM SERUM 3.4 MEQ/L (3.5-5.1); SODIUM LEVEL 146 MEQ/L (136-145)
[2021-03-10 06:40] LABS: EOSINOPHILS 4 % (0-3); HYPOCHROMASIA 2+; LYMPHOCYTES 40 % (16-44); MONOCYTES 5 % (0-5); NEUTROPHILS 51 % (28-66); PLATELET ESTIMATE NORMAL (NORMAL)
[2021-03-10] MEDS: MIDODRINE 5 MG TAB PO SCH ×2 (08:00→12:00)
[2021-03-10] MEDS ORDERED: POTASSIUM CHLORIDE 10 MEQ SR TABLET PO ONE (08:00)
[2021-03-10] MEDS: PANTOPRAZOLE 40MG VIAL (C9113 PER 1) IV SCH (08:37)
[2021-03-10] MEDS: MAGNESIUM OXIDE 400MG TAB (MAG-OX) PO SCH ×2 (08:37→21:14)
--- NOTE | 2021-03-10 12:14 | IPNPDOC ---
Text Note Date of Service The patient was seen on 03/10/21. NOTE Subjective: Patient seen and examined at bedside. No acute overnight events reported. Patient voices no new medical complaints this morning. Objective: General: NAD, lying comfortably in bed HEENT: NC/AT, edentulous Lungs: CTA B/L HEart: +S1S2, RRR, systolic murmur Abd: obese, soft, NT, +BS Ext: trace edema A/P: Patient is a 65-year-old female who was brought to the hospital via EMS for altered mental status. Upon arrival to emergency room, patient had lab work drawn that had revealed a significantly elevated ammonia. Hospitalist service was contacted for further evaluation. #Acute metabolic encephalopathy - essentially resolved - likely 2/2 acute hepatic encephalopathy - likely 2/2 non-compliance with medications; possibly component of dehydration - Unable to follow commands - Does appear to move all 4 extremities - Ammonia level elevated, but has trended down - CT head negative - c/w Lactulose 30ml [id number] to induced 3-4 BM daily - c/w Rifaxamin - c/w continuous pulse oximetry / neurological checks [id number] #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 - Prior history of ascites and esophageal varices - c/w Spironolactone / Torsemide / Midodrine #s/p Thrombocytopenia 2/2 cirrhosis - Appears to be stable compared to prior numbers #Microcytic anemia - likely 2/2 iron deficiency - Hg appears to be higher than baseline - Iron panel, B12, Folate, Reticulocyte count - noted - Stool for occult blood positive - H&H stable; will continue to trend #Hypotension - possibly 2/2 diuretics / cirrhosis - c/w Midodrine #IDDM2 - c/w ISS #CKD3 - Cr appears to be at baseline - Will hold Diuretics #Gout - hold Allopurinol #Neuropathy - hold Gabapentin #Obesity - Complicating medical care #GERD - hold Omeprazole PO - Will start Protonix PO #DVT prophylaxis - c/w TEDs/Sequentials Disposition: - pending clinical improvement VS,Fishbone, I+O VS, Fishbone, I+O Laboratory Tests 03/10/21 05:40 Vital Signs Date Time Temp Pulse Resp B/P (MAP) Pulse Ox O2 Delivery O2 Flow Rate FiO2 03/10/21 06:10 98.2 94 18 153/75 (101) 91 Room Air I&O- Last 24 Hours up to 6 AM 03/10/21 06:00 Intake Total 1260 ml Output Total 0 ml Balance 1260 ml JOYCE MCKINLEY MD Mar 10, 2021 12:14
[2021-03-10 14:00] VITALS: BP 148/72
[2021-03-10] MEDS: ACETAMINOPHEN TAB 650MG DOSE (2X325MG) PO PRN (21:14)
[2021-03-10 22:00] VITALS: BP 127/54
[2021-03-11 06:00] VITALS: BP 168/90
[2021-03-11] MEDS: LACTULOSE 20 GM/30 ML SYRUP UD PO SCH ×3 (06:11→17:11)
[2021-03-11] MEDS: LEVOTHYROXINE 25MCG TABLET (0.025MG) PO SCH (06:11)
[2021-03-11 06:27] LABS: HEMATOCRIT 28.2 % (36.0-47.0); HEMOGLOBIN 8.4 g/dl (12.0-15.5); MEAN CORPUSCULAR HEMOGLOBIN 30.1 pg (27.0-33.0); MEAN CORPUSCULAR HGB CONC 29.8 g/dl (32.0-36.5); MEAN CORPUSCULAR VOLUME 101.1 fl (80.0-96.0); PLATELET COUNT, AUTOMATED 127 10^3/uL (150-450); RED BLOOD COUNT 2.79 10^6/uL (4.00-5.40); WHITE BLOOD COUNT 4.7 10^3/uL (4.0-10.0)
[2021-03-11 06:54] LABS: ANISOCYTOSIS 2+; BASOPHILS 3 % (0-1); BLOOD UREA NITROGEN 16 MG/DL (7-18); CARBON DIOXIDE LEVEL 31 MEQ/L (21-32); CHLORIDE LEVEL 109 MEQ/L (98-107); CREATININE FOR GFR 0.86 MG/DL (0.55-1.30); EOSINOPHILS 8 % (0-3); GLOMERULAR FILTRATION RATE > 60.0 (>45); GLUCOSE, FASTING 176 MG/DL (70-100); LYMPHOCYTES 34 % (16-44); MAGNESIUM LEVEL 1.9 MG/DL (1.8-2.4); MONOCYTES 6 % (0-5); NEUTROPHILS 49 % (28-66); PLATELET ESTIMATE NORMAL (NORMAL); POTASSIUM SERUM 3.9 MEQ/L (3.5-5.1); SODIUM LEVEL 143 MEQ/L (136-145)
[2021-03-11] MEDS: MIDODRINE 5 MG TAB PO SCH ×2 (07:50→12:00)
[2021-03-11] MEDS: MAGNESIUM OXIDE 400MG TAB (MAG-OX) PO SCH ×2 (08:29→20:46)
[2021-03-11] MEDS: PANTOPRAZOLE 40MG TAB (PROTONIX) PO SCH (08:29)
[2021-03-11] MEDS: HumaLOG INSULIN (NovoLOG) PER UNIT SC SCH ×4 (08:30→20:32)
[2021-03-11 09:15] VITALS: BP 139/66
--- NOTE | 2021-03-11 10:41 | IPNPDOC ---
Text Note Date of Service The patient was seen on 03/11/21. NOTE Subjective: Patient seen and examined at bedside. No acute overnight events reported. Patient voices no new medical complaints this morning. Objective: General: NAD, lying comfortably in bed HEENT: NC/AT, edentulous Lungs: CTA B/L HEart: +S1S2, RRR, systolic murmur Abd: obese, soft, NT, +BS Ext: trace edema A/P: Patient is a 65-year-old female who was brought to the hospital via EMS for altered mental status. Upon arrival to emergency room, patient had lab work drawn that had revealed a significantly elevated ammonia. Hospitalist service was contacted for further evaluation. #Acute metabolic encephalopathy - resolved - likely 2/2 acute hepatic encephalopathy - likely 2/2 non-compliance with medications; possibly component of dehydration - Unable to follow commands - Does appear to move all 4 extremities - Ammonia level elevated, but has trended down - CT head negative - c/w Lactulose 30ml [id number] to induced 3-4 BM daily - c/w Rifaxamin #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 - Prior history of ascites and esophageal varices - c/w Spironolactone / Torsemide / Midodrine #s/p Thrombocytopenia 2/2 cirrhosis - Appears to be stable compared to prior numbers #Microcytic anemia - likely 2/2 iron deficiency - Hg appears to be higher than baseline - Iron panel, B12, Folate, Reticulocyte count - noted - Stool for occult blood positive - H&H stable; will continue to trend #Hypotension - possibly 2/2 diuretics / cirrhosis - c/w Midodrine #IDDM2 - c/w ISS #CKD3 - Cr appears to be at baseline - Will hold Diuretics #Gout - hold Allopurinol #Neuropathy - hold Gabapentin #Obesity - Complicating medical care #GERD - hold Omeprazole PO - Will start Protonix PO #DVT prophylaxis - c/w TEDs/Sequentials Disposition: - pending clinical improvement; anticipating discharge home with services; continue with PT VS,Fishbone, I+O VS, Fishbone, I+O Laboratory Tests 03/11/21 06:09 Vital Signs Date Time Temp Pulse Resp B/P (MAP) Pulse Ox O2 Delivery O2 Flow Rate FiO2 03/11/21 09:15 98.2 95 18 139/66 (90) 93 Room Air I&O- Last 24 Hours up to 6 AM 03/11/21 06:00 Intake Total 420 ml Output Total 0 ml Balance 420 ml JOYCE MCKINLEY MD Mar 11, 2021 10:41
[2021-03-11 14:00] VITALS: BP 157/73
[2021-03-11 20:03] VITALS: BP 137/73
[2021-03-11] MEDS: ACETAMINOPHEN TAB 650MG DOSE (2X325MG) PO PRN (20:45)
[2021-03-11] MEDS ORDERED: ONDANSETRON 4MG/2ML VIAL IV PRN (23:45)
[2021-03-12] MEDS: LACTULOSE 20 GM/30 ML SYRUP UD PO SCH ×5 (00:10→17:10)
[2021-03-12 05:29] VITALS: BP 123/56
[2021-03-12] MEDS: LEVOTHYROXINE 25MCG TABLET (0.025MG) PO SCH (05:34)
[2021-03-12] MEDS: HumaLOG INSULIN (NovoLOG) PER UNIT SC SCH ×5 (07:30→20:51)
[2021-03-12] MEDS: MIDODRINE 5 MG TAB PO SCH ×2 (08:19→12:09)
[2021-03-12] MEDS: MAGNESIUM OXIDE 400MG TAB (MAG-OX) PO SCH ×2 (08:19→20:49)
[2021-03-12] MEDS: PANTOPRAZOLE 40MG TAB (PROTONIX) PO SCH (08:19)
[2021-03-12 09:26] LABS: BASO # 0.1 10^3/uL (0.0-0.2); EOS # 0.3 10^3/uL (0.0-0.5); EOS % 6.1 % (0.0-3.0); HEMATOCRIT 27.2 % (36.0-47.0); HEMOGLOBIN 8.1 g/dl (12.0-15.5); LYMPH # 1.1 10^3/uL (1.5-5.0); LYMPH % 21.7 % (24.0-44.0); MEAN CORPUSCULAR HEMOGLOBIN 29.7 pg (27.0-33.0); MEAN CORPUSCULAR HGB CONC 29.8 g/dl (32.0-36.5); MEAN CORPUSCULAR VOLUME 99.6 fl (80.0-96.0); MONO # 0.6 10^3/uL (0.0-0.8); MONO % 11.9 % (2.0-8.0); NEUTROPHILS % 59.1 % (36.0-66.0); PLATELET COUNT, AUTOMATED 126 10^3/uL (150-450); RED BLOOD COUNT 2.73 10^6/uL (4.00-5.40); WHITE BLOOD COUNT 5.1 10^3/uL (4.0-10.0)
[2021-03-12 09:47] LABS: BLOOD UREA NITROGEN 14 MG/DL (7-18); CALCIUM LEVEL 8.9 MG/DL (8.8-10.2); CARBON DIOXIDE LEVEL 29 MEQ/L (21-32); CHLORIDE LEVEL 106 MEQ/L (98-107); CREATININE FOR GFR 0.83 MG/DL (0.55-1.30); GLOMERULAR FILTRATION RATE > 60.0 (>45); GLUCOSE, FASTING 191 MG/DL (70-100); MAGNESIUM LEVEL 1.8 MG/DL (1.8-2.4); POTASSIUM SERUM 4.3 MEQ/L (3.5-5.1); SODIUM LEVEL 140 MEQ/L (136-145)
[2021-03-12] MEDS ORDERED: XIFA200T2 PO (11:17)
--- NOTE | 2021-03-12 13:04 | IPNPDOC ---
Text Note Date of Service The patient was seen on 03/12/21. NOTE Subjective: Patient seen and examined at bedside. No acute overnight events reported. Patient voices no new medical complaints this morning. Objective: General: NAD, lying comfortably in bed HEENT: NC/AT, edentulous Lungs: CTA B/L HEart: +S1S2, RRR, systolic murmur Abd: obese, soft, NT, +BS Ext: trace edema A/P: Patient is a 65-year-old female who was brought to the hospital via EMS for altered mental status. Upon arrival to emergency room, patient had lab work drawn that had revealed a significantly elevated ammonia. Hospitalist service was contacted for further evaluation. #Acute metabolic encephalopathy - resolved - likely 2/2 acute hepatic encephalopathy - likely 2/2 non-compliance with medications; possibly component of dehydration - Unable to follow commands - Does appear to move all 4 extremities - Ammonia level elevated, but has trended down - CT head negative - c/w Lactulose 30ml [id number] to induced 3-4 BM daily - c/w Rifaxamin #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 - Prior history of ascites and esophageal varices - c/w Spironolactone / Torsemide / Midodrine #s/p Thrombocytopenia 2/2 cirrhosis - Appears to be stable compared to prior numbers #Microcytic anemia - likely 2/2 iron deficiency - Hg appears to be higher than baseline - Iron panel, B12, Folate, Reticulocyte count - noted - Stool for occult blood positive - H&H stable; will continue to trend #Hypotension - possibly 2/2 diuretics / cirrhosis - c/w Midodrine #IDDM2 - c/w ISS #CKD3 - Cr appears to be at baseline - Will hold Diuretics #Gout - hold Allopurinol #Neuropathy - hold Gabapentin #Obesity - Complicating medical care #GERD - hold Omeprazole PO - Will start Protonix PO #DVT prophylaxis - c/w TEDs/Sequentials Disposition: - pending prior auth for rifaximin, cleared by PT VS,Segun, I+O VS, Segun, I+O Laboratory Tests 03/12/21 09:10 Vital Signs Date Time Temp Pulse Resp B/P (MAP) Pulse Ox O2 Delivery O2 Flow Rate FiO2 03/12/21 05:29 98.2 94 18 123/56 (78) 94 Room Air I&O- Last 24 Hours up to 6 AM 03/12/21 05:59 Intake Total 2400 ml Output Total 200 ml Balance 2200 ml JOYCE MCKINLEY MD Mar 12, 2021 13:04
[2021-03-12 14:00] VITALS: BP 157/73
[2021-03-12 20:06] VITALS: BP 147/68
[2021-03-13] MEDS: LACTULOSE 20 GM/30 ML SYRUP UD PO SCH ×2 (00:18→05:33)
[2021-03-13 04:00] VITALS: BP 144/70
[2021-03-13] MEDS: LEVOTHYROXINE 25MCG TABLET (0.025MG) PO SCH (05:33)
[2021-03-13] MEDS: MIDODRINE 5 MG TAB PO SCH (07:56)
[2021-03-13] MEDS: PANTOPRAZOLE 40MG TAB (PROTONIX) PO SCH (07:56)
[2021-03-13] MEDS: TORSEMIDE 10 MG TABLET PO SCH (07:57)
[2021-03-13] MEDS: MAGNESIUM OXIDE 400MG TAB (MAG-OX) PO SCH (07:57)
[2021-03-13] MEDS: HumaLOG INSULIN (NovoLOG) PER UNIT SC SCH (07:57)
[2021-03-13] MEDS: SPIRONOLACTONE 25 MG TAB PO SCH (07:57)
[2021-03-13 08:00] VITALS: BP 148/69
== END 2021-03-13 11:05 | disposition home health service (06) | DRG 441 ==
LOC: M ED 11:24 → M ED INP 11:25 → ENRESERV 13:42 → M MS5PR 15:01 → OBSVTOIN 03-08 08:59
PROVIDERS: ADMIT Internal Medicine; ATTEND Internal Medicine
DX: K72.00 Acute and subacute hepatic failure without coma (principal); G93.41 Metabolic encephalopathy; K74.60 Unspecified cirrhosis of liver; K75.81 Nonalcoholic steatohepatitis (NASH); D69.59 Other secondary thrombocytopenia; D50.9 Iron deficiency anemia, unspecified; E11.22 Type 2 diabetes mellitus with diabetic chronic kidney disease; N18.30 Chronic kidney disease, stage 3 unspecified; M10.9 Gout, unspecified; E11.40 Type 2 diabetes mellitus with diabetic neuropathy, unspecified; E66.9 Obesity, unspecified; K21.9 Gastro-esophageal reflux disease without esophagitis; E86.0 Dehydration; I95.9 Hypotension, unspecified; E55.9 Vitamin D deficiency, unspecified; Z91.14 Patient's other noncompliance with medication regimen; Z20.822 Contact with and (suspected) exposure to COVID-19; Z79.4 Long term (current) use of insulin; Z79.899 Other long term (current) drug therapy; Z68.35 Body mass index [BMI] 35.0-35.9, adult

== ENCOUNTER → 2021-03-18 | Outpatient (REF) | payer OTHER ==
[2021-03-18 18:50] LABS: PERCENT SATURATION 7.7 % (13.2-45.0)
== END ==
LOC: M LAB REF 16:44
PROVIDERS: ATTEND Internal Medicine Nephrology
DX: D64.9 Anemia, unspecified (principal)

== ENCOUNTER 2021-03-21 09:07 | Inpatient (IN) | payer OTHER ==
[~2021-03-21] VITALS: Ht 162.6 cm; Wt 92.0 kg
[2021-03-21 09:45] LABS: HEMATOCRIT 27.2 % (36.0-47.0); HEMOGLOBIN 8.5 g/dl (12.0-15.5); MEAN CORPUSCULAR HEMOGLOBIN 29.8 pg (27.0-33.0); MEAN CORPUSCULAR HGB CONC 31.3 g/dl (32.0-36.5); MEAN CORPUSCULAR VOLUME 95.4 fl (80.0-96.0); PLATELET COUNT, AUTOMATED 161 10^3/uL (150-450); RED BLOOD COUNT 2.85 10^6/uL (4.00-5.40); WHITE BLOOD COUNT 4.4 10^3/uL (4.0-10.0)
[2021-03-21 10:02] LABS: ANISOCYTOSIS 2+; ATYPICAL LYMPH 4 % (0-5); EOSINOPHILS 8 % (0-3); LYMPHOCYTES 24 % (16-44); METAMYELOCYTES 1 % (0-0); MONOCYTES 6 % (0-5); MYELOCYTES 1 % (0-0); NEUTROPHILS 53 % (28-66); PLATELET ESTIMATE NORMAL (NORMAL)
[2021-03-21 10:03] LABS: HYPOCHROMASIA 1+
[2021-03-21 10:16] LABS: ALBUMIN 2.1 GM/DL (3.2-5.2); ALT/SGPT 14 U/L (12-78); BILIRUBIN,DIRECT 0.3 MG/DL (0.0-0.2); BILIRUBIN,TOTAL 0.6 MG/DL (0.2-1.0); BLOOD UREA NITROGEN 28 MG/DL (7-18); CALCIUM LEVEL 8.5 MG/DL (8.8-10.2); CARBON DIOXIDE LEVEL 30 MEQ/L (21-32); CHLORIDE LEVEL 102 MEQ/L (98-107); CK-MB VALUE MASS 6.3 NG/ML (<3.6); CPK CREATINE PHOSPHOKINASE 86 U/L (26-192); CREATININE FOR GFR 1.46 MG/DL (0.55-1.30); GLOMERULAR FILTRATION RATE 38.5 (>45); GLUCOSE, FASTING 240 MG/DL (70-100); MB/CK RELATIVE INDEX 7.33 (< OR =4); POTASSIUM SERUM 4.4 MEQ/L (3.5-5.1); SODIUM LEVEL 136 MEQ/L (136-145); TOTAL PROTEIN 5.9 GM/DL (6.4-8.2); TROPONIN I < 0.02 NG/ML (< 0.10)
[2021-03-21] MEDS ORDERED: TIZA4TAB4 PO (10:42)
[2021-03-21 10:43] LABS: INR 1.38; PROTHROMBIN TIME 17.3 SECONDS (12.5-14.3)
[2021-03-21 10:44] LABS: PARTIAL THROMBOPLASTIN TIME 39.2 SECONDS (24.2-38.5)
--- NOTE | 2021-03-21 10:56 | ECGEPIP ---
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
[2021-03-21 11:16] LABS: ETHYL ALCOHOL (ETHANOL) < 0.003 % (0.000-0.010)
--- NOTE | 2021-03-21 11:17 | REP ---
INDICATION: FALL. COMPARISON: 05/01/2018 FINDINGS: The hip joint space is symmetric and relatively well maintained. There is no acute fracture or destructive osseous lesion. IMPRESSION: Within normal limits for the patient's age. No significant change from the prior exam. <Electronically signed by Renzo Aragon > 03/21/21 1118
--- NOTE | 2021-03-21 11:18 | REP ---
INDICATION: LOW BP. COMPARISON: 03/07/2021 also AP TECHNIQUE: AP supine FINDINGS: The technique utilized in obtaining the radiograph has magnified the cardiac silhouette and accentuated the interstitial markings. The cardiomediastinal silhouette lung kent are unchanged. There is cardiomegaly accentuated by technique. There are chronic left basilar opacities which appear stable. No new abnormal opacities seem to have developed. IMPRESSION: Stable appearing chronic changes seen on this limited exam which is AP supine. <Electronically signed by Renzo Aragon > 03/21/21 [id number]
[2021-03-21] MEDS ORDERED: GLUCOSE 4GM CHEW TABLET PO PRN (11:20)
[2021-03-21] MEDS ORDERED: GLUCAGON INJ 1MG VIAL SC PRN (11:20)
[2021-03-21] MEDS ORDERED: ALBUTEROL 90 MCG/ACT 8GM HFA INHALER INH PRN (11:20)
[2021-03-21] MEDS ORDERED: ACETAMINOPHEN TAB 650MG DOSE (2X325MG) PO PRN (11:20)
[2021-03-21] MEDS ORDERED: DEXTROSE 50% 50 ML SYRINGE IV PRN (11:20)
--- NOTE | 2021-03-21 11:39 | HPEPDOC ---
[facility] Medical History & Physical Date of Admission March 21, 2021 Date of Service: March 21, 2021 History and Physical Chief complaint: Presented to the emergency room with low blood pressure and a fall yesterday History of present illness: Patient is a 65-year-old female who presented to the emergency room after reporting low blood pressure this morning patient has reported that yesterday she had woken up, sat at the edge of the bed used her walker to ambulate to the bathroom. However, when she went to sit on the toilet, she began to lightheadedness and fell. Patient denies any loss of consciousness or head trauma reported that she landed on her left hip and tried to catch herself with her right hand but may have strained a muscle. Patient has recently had a dose of her diuretics adjusted. Patient had her torsemide dose increased from 10-20 and midodrine dose increased from 5-10. Currently patient denies any lightheadedness or dizziness. Denies any nausea or vomiting. Reports right chest wall tenderness. Denies any shortness of breath or change in her baseline cough. Has not expressed any abdominal pain, constipation, diarrhea, or urinary discomfort. Reports her last bowel movement was yesterday. Denied any dark stool, however reported that she did have an episode that happened almost 3 weeks ago. Patient denies any recent fevers or chills. Patient is reporting some left hip discomfort described as an 8/10 aching leg pain. However, she is able to ambulate place with leg. Past Medical History: 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 History of ascites History of esophageal varices Thrombocytopenia 2/2 cirrhosis Hypotension (possibly 2/2 diuretics / cirrhosis) on Midodrine IDDM2 CKD3 Gout Neuropathy Obesity Vitamin D deficiency GERD Past Surgical History: Cholecystectomy Colonoscopy with polyp resection Cataract surgery Allergies: See below Medications: See below Family History: - Reported brother with history of colon cancer Social History: - Denies the use of alcohol general (reports one or 2 drinks per year) or illicit drugs; reports that she quit smoking several years ago - Denies recent travel or sick contacts - Lives with Review of Systems: 10 point review of systems complete, all negative otherwise stated in HPI Physical exam: - Vitals: BP [102/56], HR [51], RR [18], Sat [98%RA], Temp [98.1F] - General: Lying in bed, No acute distress, Speaking in full sentences, AAOx3 - HEENT: NC, AT, PERRLA - CVS: Bradycardic, +S1S2, there is right-sided chest wall tenderness - Lungs: Fair air entry bilaterally, No appreciable wheezing / rales / rhonchi - Abdomen: Soft, Non-distended, Non-tender - Extremities: 1-2+ pitting edema of legs, No calf tenderness - Neuro: No focal motor or sensory deficit - Skin: No visible rashes Labs: See below Imaging: CXR 03/21: Stable appearing chronic changes seen on this limited exam which is AP supine. L Hip XR 03/21: Within normal limits for the patient's age. No significant change from the prior exam. EKG: See below Assessment and Plan: Hypotension / Light-headedness / Near-syncope - Patient reports that her diuretics have been increased from an outpatient setting - Will hold diuretic therapy at this time - Will continue with Midodrine based on outpatient dose - Will provide gentle IV fluid hydration (for 1 Liter only) Fall / Chest wall discomfort - likely 2/2 above - Patient has reported left hip and right chest wall tenderness - Imaging of left hip has been negative - Will get rib x-ray of right chest wall - Will continue with pain control - Will order physical therapy with fall precautions and activity as tolerated - Will continue telemetry monitoring / troponin trend AIDA on CKD3 - likely 2/2 pre-renal etiology - Patient is at the dose of her diuretics adjusted - Will hold nephrotoxic medications including diuretics - Will check UA and urine electrolytes - Will start gentle IV fluid hydration for 1 Liter only Lactic acidosis - likely 2/2 hypotension - No evidence of infection - Will check blood cultures / procalcitonin / urinalysis - Will hold off on antibiotics at this time 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 - History of ascites - History of esophageal varices - c/w Lactulose Hyper-ammonia - Patient is currently fully oriented to person / place / time - Possibly 2/2 dehydration - Will continue with home dose of lactulose Thrombocytopenia 2/2 cirrhosis - No evidence of bleeding - Platelet count appears to be slightly higher than baseline Hypotension (possibly 2/2 diuretics / cirrhosis) - c/w Midodrine (see above) IDDM2 - Will start ISS Gout - Will hold Allopurinol Neuropathy - c/w Gabapentin Obesity - BMI of 34.2 - Complicating medical care Hypothyroidism - c/w Levothyroxine Vitamin D deficiency - c/w Supplementation Chronic back pain - c/w Tizanidine GERD - c/w Omeprazole DVT prophylaxis - Will start TEDs/Sequentials Vital Signs Vital Signs Date Time Temp Pulse Resp B/P (MAP) Pulse Ox O2 Delivery O2 Flow Rate FiO2 03/21/21 10:24 86/54 (65) 03/21/21 10:07 51 98 03/21/21 09:08 98.1 18 Room Air Laboratory Data Labs 24H Laboratory Tests 2 03/21/21 09:34: Neutrophils (%) (Auto) , Nucleated Red Blood Cells % (auto) 0.0, Neutrophils 53, Band Neutrophils 3, Lymphocytes (Manual) 24, Monocytes (Manual) 6H, Eosinophils (Manual) 8H, Metamyelocytes 1H, Myelocytes 1H, Atypical Lymphocytes 4, Hypochromasia 1+, Anisocytosis 2+, Platelet Estimate NORMAL, Prothrombin Time 17.3H, Prothromb Time International Ratio 1.38, Activated Partial Thromboplast Time 39.2H, Anion Gap 4L, Glomerular Filtration Rate 38.5L, Lactic Acid Level 2.9*H, Calcium Level 8.5L, Total Bilirubin 0.6, Direct Bilirubin 0.3H, Aspartate Amino Transf (AST/SGOT) 41H, Alanine Aminotransferase (ALT/SGPT) 14, Alkaline Phosphatase 185H, Ammonia 260H, Total Creatine Kinase 86, Creatine Kinase MB 6.3H, Creatine Kinase MB Relative Index 7.33H, Troponin I < 0.02, Total Protein 5.9L, Albumin 2.1L, Albumin/Globulin Ratio 0.6L, Thyroid Stimulating Hormone (TSH) 3.570, Ethyl Alcohol Level < 0.003 03/21/21 11:24: CBC/BMP Laboratory Tests 03/21/21 09:34 Microbiology Microbiology 03/21/21 Blood Culture, Received Pending Home Medications Scheduled Allopurinol (Allopurinol) 100 Mg Tab, 100 MG PO QHS Ascorbic Acid (Vitamin C) 1,000 Mg Tablet, 1,000 MG PO DAILY Cholecalciferol (Vitamin D3) (Vitamin D3) 1,000 Unit Tablet, 1,000 UNITS PO DAILY Gabapentin (Gabapentin) 300 Mg Capsule, 300 MG PO BID Insulin Human Lispro (Novolog) 100 U/Ml Inj, 1 DOSE SC ACHS PER SLIDING SCALE Lactulose (Lactulose) 10 Gm/15 Ml Solution, 30 ML PO TID Levothyroxine Sodium (Levothyroxine Sodium) 25 Mcg Tablet, 25 MCG PO DAILY Magnesium Oxide (Magnesium Oxide) 400 Mg Tablet, 800 MG PO BID Midodrine HCl (Midodrine HCl) 5 Mg Tablet, 10 MG PO TID Omeprazole (Omeprazole) 40 Mg Capsule.dr, 40 MG PO DAILY Spironolactone (Spironolactone) 25 Mg Tablet, 25 MG PO DAILY Torsemide (Torsemide) 10 Mg Tablet, 20 MG PO DAILY Scheduled PRN Albuterol Sulfate (Ventolin Hfa) 18 Gm Hfa.aer.ad, 2 PUFF INH Q4H PRN for SHORTNESS OF BREATH Tizanidine HCl (Tizanidine HCl) 4 Mg Tablet, 4 MG PO TID PRN for MUSCLE SPASMS Allergies Coded Allergies: No Known Drug Allergies (Verified Allergy, Unknown, 01/19/21) JUANA NERI MD March 21, 2021 11:38
[2021-03-21] MEDS ORDERED: NS 1,000 ML IV SCH (12:00)
[2021-03-21 12:11] LABS: RSV AMPLIFICATION NEGATIVE (NEGATIVE)
--- NOTE | 2021-03-21 12:20 | REP ---
INDICATION: R chest wall tenderness. COMPARISON: None TECHNIQUE: Four views of the right ribs FINDINGS: There is no evidence of an acute fracture or destructive osseous lesion. IMPRESSION: Negative right rib series <Electronically signed by Renzo Aragon > 03/21/21 [id number]
[2021-03-21 13:05] VITALS: BP 94/50
[2021-03-21 13:29] LABS: AMPHETAMINES LEVEL URINE NEGATIVE (NEGATIVE); BARBITURATES URINE NEGATIVE (NEGATIVE); BENZODIAZEPINES URINE NEGATIVE (NEGATIVE); CANNABINOIDS URINE NEGATIVE (NEGATIVE); COCAINE METABOLITE URINE NEGATIVE (NEGATIVE); CREATININE,RANDOM URINE 50.1 MG/DL; METHADONE URINE NEGATIVE (NEGATIVE); OPIATES URINE NEGATIVE (NEGATIVE); PHENCYCLIDINE URINE NEGATIVE (NEGATIVE)
[2021-03-21] MEDS: HumaLOG INSULIN (NovoLOG) PER UNIT SC SCH ×3 (13:37→20:24)
[2021-03-21 14:02] LABS: OSMOLALITY SERUM 304 MOSM/KG (280-301)
[2021-03-21 14:13] LABS: CPK CREATINE PHOSPHOKINASE 73 U/L (26-192); MB/CK RELATIVE INDEX 8.22 (< OR =4); TROPONIN I < 0.02 NG/ML (< 0.10)
[2021-03-21] MEDS: MIDODRINE 5 MG TAB PO SCH (15:03)
[2021-03-21] MEDS: LACTULOSE 20 GM/30 ML SYRUP UD PO SCH ×2 (15:03→21:24)
[2021-03-21 16:00] VITALS: BP 95/53
[2021-03-21 20:00] VITALS: BP 119/59
[2021-03-21] MEDS: MAGNESIUM OXIDE 400MG TAB (MAG-OX) PO SCH (21:24)
[2021-03-21] MEDS: GABAPENTIN 300 MG CAP PO SCH (21:24)
[2021-03-21 21:37] LABS: CK-MB VALUE MASS 6.2 NG/ML (<3.6); CPK CREATINE PHOSPHOKINASE 77 U/L (26-192); MB/CK RELATIVE INDEX 8.05 (< OR =4); TROPONIN I < 0.02 NG/ML (< 0.10)
[2021-03-22] VITALS: BP 127/59
[2021-03-22 04:00] VITALS: BP 116/56
[2021-03-22] MEDS: LEVOTHYROXINE 25MCG TABLET (0.025MG) PO SCH (06:03)
[2021-03-22 06:38] LABS: ALBUMIN 2.4 GM/DL (3.2-5.2); BILIRUBIN,TOTAL 0.7 MG/DL (0.2-1.0); CALCIUM LEVEL 8.9 MG/DL (8.8-10.2); CREATININE FOR GFR 1.35 MG/DL (0.55-1.30); GLOMERULAR FILTRATION RATE 42.2 (>45); MAGNESIUM LEVEL 2.1 MG/DL (1.8-2.4); POTASSIUM SERUM 4.1 MEQ/L (3.5-5.1)
[2021-03-22 07:13] LABS: BASO % 0.5 % (0.0-1.0); EOS # 0.2 10^3/uL (0.0-0.5); EOS % 2.3 % (0.0-3.0); HEMATOCRIT 25.5 % (36.0-47.0); HEMOGLOBIN 7.8 g/dl (12.0-15.5); LYMPH # 1.1 10^3/uL (1.5-5.0); LYMPH % 17.4 % (24.0-44.0); MEAN CORPUSCULAR HEMOGLOBIN 28.9 pg (27.0-33.0); MEAN CORPUSCULAR HGB CONC 30.6 g/dl (32.0-36.5); MEAN CORPUSCULAR VOLUME 94.4 fl (80.0-96.0); MONO # 0.7 10^3/uL (0.0-0.8); MONO % 11.4 % (2.0-8.0); NEUTROPHILS # 4.4 10^3/uL (1.5-8.5); NEUTROPHILS % 68.1 % (36.0-66.0); PLATELET COUNT, AUTOMATED 157 10^3/uL (150-450); WHITE BLOOD COUNT 6.5 10^3/uL (4.0-10.0)
[2021-03-22 07:22] VITALS: BP 110/51
[2021-03-22] MEDS: VITAMIN D 1,000 INTERNATIONAL UNITS TABLET PO SCH (08:00)
[2021-03-22] MEDS: HumaLOG INSULIN (NovoLOG) PER UNIT SC SCH ×4 (08:00→20:09)
[2021-03-22] MEDS: LACTULOSE 20 GM/30 ML SYRUP UD PO SCH ×3 (08:00→20:05)
[2021-03-22] MEDS: OMEPRAZOLE 20 MG CAP PO SCH (08:00)
[2021-03-22] MEDS: ASCORBIC ACID 500 MG TAB PO SCH (08:01)
[2021-03-22] MEDS: MAGNESIUM OXIDE 400MG TAB (MAG-OX) PO SCH ×2 (08:01→20:03)
[2021-03-22] MEDS: GABAPENTIN 300 MG CAP PO SCH ×2 (08:01→20:04)
[2021-03-22] MEDS: MIDODRINE 5 MG TAB PO SCH ×3 (08:01→16:00)
[2021-03-22] MEDS ORDERED: traMADol 50 MG TAB PO PRN (09:40)
--- NOTE | 2021-03-22 09:43 | IPNPDOC ---
Text Note Date of Service The patient was seen on 03/22/21. NOTE Subjective: Patient is a 65-year-old female who presented to the emergency room after reporting low blood pressure this morning patient has reported that yesterday she had woken up, sat at the edge of the bed used her walker to ambulate to the bathroom. However, when she went to sit on the toilet, she began to lightheadedness and fell. Patient denies any loss of consciousness or head trauma reported that she landed on her left hip and tried to catch herself with her right hand but may have strained a muscle. Patient has recently had a dose of her diuretics adjusted. Patient had her torsemide dose increased from 10 to 20 and midodrine dose increased from 5 to 10. Patient was admitted to the hospital service for further evaluation and treatment. This morning nephrology was consulted. Patient was seen and examined at the bedside. Patient is still reporting right chest wall tenderness. Denies any nausea, vomiting, cough. Does report some dif ficulty with deep inspiration. Denies any abdominal pain, diarrhea, or urinary discomfort. Objective: Vitals (See below) General: Sitting up in bed and appears comfortable, AAOx3 HEENT: NC, AT CVS: +S1S2 Lungs: Fair air entry b/l, no wheezing, rales or rhonchi Abdomen: Soft, ND, NT Extremities: There is 1+ pitting edema at her bilateral feet, - Calf tenderness Imaging: CXR 03/21: Stable appearing chronic changes seen on this limited exam which is AP supine. L Hip XR 03/21: Within normal limits for the patient's age. No significant change from the prior exam. R Rib XR 03/21: Negative right rib series Assessment and plan: Hypotension / Light-headedness / Near-syncope - Patient reports that her diuretics have been increased from an outpatient setting - Diuretic therapy on hold - c/w Midodrine at 10 TID - s/p IV fluid hydration (for 1 Liter only) Fall / Chest wall discomfort - likely 2/2 above - Patient has reported left hip and right chest wall tenderness - Troponin trend negative - Imaging negative - Will get CT chest / L hip - c/w muscle relaxants; will add Tramadol - c/w physical therapy with fall precautions and activity as tolerated AIDA on CKD3 - likely 2/2 pre-renal etiology - Cr improving - Patient is at the dose of her diuretics adjusted - Will hold nephrotoxic medications including diuretics - s/p IV fluid hydration for 1 Liter only s/p Lactic acidosis - likely 2/2 hypotension - No evidence of infection - Blood cultures 03/22: Pending - UA without evidence of infection - Procalcitonin negative - Will hold off on antibiotics at this time 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 - History of ascites - History of esophageal varices - c/w Lactulose Hyper-ammonia - Patient is currently fully oriented to person / place / time - Possibly 2/2 dehydration - Will continue with home dose of lactulose Normocytic anemia - Possibly 2/2 dilutional; possibly 2/2 bleed - Occult stool positive for blood - Will trend H&H Thrombocytopenia 2/2 cirrhosis - No evidence of bleeding - Platelet count appears to be slightly higher than baseline Hypotension (possibly 2/2 diuretics / cirrhosis) - c/w Midodrine (see above) IDDM2 - c/w ISS Gout - Will hold Allopurinol Neuropathy - c/w Gabapentin Obesity - BMI of 34.2 - Complicating medical care Hypothyroidism - c/w Levothyroxine Vitamin D deficiency - c/w Supplementation Chronic back pain - c/w Tizanidine GERD - c/w Omeprazole DVT prophylaxis - c/w TEDs/Sequentials Disposition: - Awaiting clinical improvement - Nephrology on consultation Segun MORGAN I+O Segun MORGAN I+O Laboratory Tests 03/21/21 09:34 03/22/21 05:43 Vital Signs Date Time Temp Pulse Resp B/P (MAP) Pulse Ox O2 Delivery O2 Flow Rate FiO2 03/22/21 07:22 98.8 98 18 110/51 (70) 92 Room Air I&O- Last 24 Hours up to 6 AM 03/22/21 06:00 Intake Total 930 ml Output Total 600 ml Balance 330 ml JUANA NERI MD March 22, 2021 09:43
--- NOTE | 2021-03-22 10:53 | REP ---
INDICATION: L hip pain. COMPARISON: Radiographs 03/21/2021. TECHNIQUE: Axial CT left hip performed with sagittal and coronal reconstruction images. FINDINGS: There is no acute fracture or dislocation. No intrinsic osseous pathology is seen. There is mild joint space narrowing, subchondral sclerosis and spurring at the hip joint. Incidental note is made of pelvic ascites, seen on prior studies. IMPRESSION: Mild degenerative changes of the hip joint. No acute fracture or dislocation. <Electronically signed by Santana Pacheco > 03/22/21 1040
--- NOTE | 2021-03-22 10:57 | REP ---
INDICATION: R chest wall pain COMPARISON: 08/30/2020 the latest prior TECHNIQUE: Limited noncontrast enhanced CT using standard helical technique FINDINGS: Limited evaluation of the mediastinum and pulmonary bari show no significant changes from the prior exam. There is no evidence of a gross mass or adenopathy. Note is again made of an unchanged at least partially loculated left pleural effusion. This is essentially unchanged. No pericardial effusion has developed. There is no change in the imaged upper abdomen or imaged osseous structures. Note is again made of ascites and a nodular surface to the liver along with splenomegaly (although partially imaged) status quo. Evaluation of the lung kent shows chronic consolidation/compressive atelectatic changes in the left lower lobe improved slightly from the prior exam. No new abnormal opacities have developed. IMPRESSION: Chronic changes as described above. No evidence of a new abnormality. <Electronically signed by Renzo Aragon > 03/22/21 [id number]
[2021-03-22 11:48] VITALS: BP 125/58
[2021-03-22 12:34] LABS: HEMATOCRIT 25.9 % (36.0-47.0); HEMOGLOBIN 8.1 g/dl (12.0-15.5)
[2021-03-22 15:43] VITALS: BP 116/52
[2021-03-22] MEDS: TORSEMIDE 10 MG TABLET PO SCH (16:40)
[2021-03-22] MEDS: SPIRONOLACTONE 25 MG TAB PO SCH (16:40)
[2021-03-22] MEDS ORDERED: ONDANSETRON 4MG/2ML VIAL IV PRN (16:45)
[2021-03-22] MEDS ORDERED: SLF 3 ML SYR IV PRN (17:15)
[2021-03-22 18:21] LABS: HEMATOCRIT 25.4 % (36.0-47.0)
[2021-03-22 20:00] VITALS: BP 112/53
--- NOTE | 2021-03-22 21:05 | CR ---
NEPHROLOGY CONSULTATION DATE: 03/22/2021 REASON FOR CONSULTATION: Acute kidney injury and generalized edema. HISTORY OF PRESENT ILLNESS: Miss Ngo is a 67-year-old female with a known history of cirrhosis of the liver due to non-alcoholic hepatitis. She has been chronically hypotensive requiring Midodrine. She also has a history of ascites and generalized edema and recently her diuretic dose was increased due to volume overload and her Midodrine dose was increased due to low blood pressure in the office. The patient felt dizzy at home while she was walking to the bathroom and fell in the bathroom, hurting her left hip. She was brought to the Emergency Room and got admitted yesterday. Nephrology consultation was requested and the patient is seen this morning. PAST MEDICAL AND SURGICAL HISTORY: The patient's past medical and surgical history is significant for: 1. Cirrhosis secondary to CAMPBELL. 2. History of recurrent ascites. 3. Generalized anasarca. 4. History of esophageal varices. 5. History of chronic hypotension. 6. History of insulin requiring diabetes. 7. History of gout. 8. History of chronic kidney disease. 9. History of obesity. 10. History of peripheral neuropathy. 11. History of gastroesophageal reflux disease with esophageal varices. 12. History of vitamin D deficiency. PAST SURGICAL HISTORY: The patient's past surgical history is significant for: 1. Cholecystectomy. 2. History of colon polyp removal with colonoscopy. 3. Cataract surgery. FAMILY HISTORY: One brother has a history of colon cancer. There is no family history of kidney disease. PERSONAL AND SOCIAL HISTORY: The patient denies any alcohol use or illicit drug use. She quit smoking several years ago. She lives with a female partner. MEDICATIONS: Home medications include: 1. Allopurinol 100 mg daily. 2. Vitamin C 1,000 mg daily. 3. Vitamin D 1,000 units daily. 4. Gabapentin 300 mg twice daily. 5. NovoLog insulin per sliding scale. 6. Lactulose 30 mL three times daily. 7. Levothyroxine 25 mcg daily. 8. Magnesium Oxide 800 mg twice daily. 9. Midodrine 10 mg three times daily. 10. Omeprazole 40 mg daily. 11. Spironolactone 25 mg daily. 12. Torsemide 20 mg daily. ALLERGIES: She has no known drug allergies. REVIEW OF SYSTEMS: Constitutional: The patient has been feeling very weak and dizzy. She denies any fever or chills. Ears, nose and throat are unremarkable. Cardiovascular system is significant for generalized anasarca and hypotension. Respiratory system is negative for cough or hemoptysis. GI system is significant for history of cirrhosis and ascites. She also has a known history of esophageal varices and gastroesophageal reflux disease. She denies any vomiting or diarrhea. Genitourinary system is significant for decreased urine output. She denies any dysuria or hematuria. Musculoskeletal system is significant for obesity, recent fall and left hip pain as a result. She has generalized muscular weakness. Endocrine system is significant for hypothyroidism and diabetes. Psychosocial system is negative for depression or anxiety. Neurologic system is significant for peripheral neuropathy. She denies any loss of consciousness at the time of the fall. Hematological system is significant for chronic thrombocytopenia. She does have some bruising. Denies any nosebleeds. PHYSICAL EXAMINATION: VITAL SIGNS: Temperature 97.3 degrees Fahrenheit, heart rate 90 per minute, respiratory rate 18 per minute, blood pressure 125/58 mm of mercury and oxygen saturation is 97% on room air. HEENT: Head is atraumatic. She has no oral thrush or ulcers. NECK: Supple and JVD is about 7 cm above sternal angle. HEART: Regular and without a pericardial friction rub. LUNGS: Diminished breath sounds at the bases. ABDOMEN: Distended with ascites and nontender. Bowel sounds are present. EXTREMITIES: No cyanosis or clubbing. Lower extremity edema is at least 2+. NEUROLOGICAL: She is awake and without any focal deficits. LABORATORY DATA: On admission last evening, WBC count 4.4, hemoglobin 8.5 and hematocrit 27.2, platelet count 161. This morning hemoglobin is 7.8 and hematocrit 25.5. INR 1.38 and PT 17.3. Today her sodium is 138 and potassium 4.1. BUN 30 and creatinine 1.35. Glucose 156. Yesterday her BUN was 28 and creatinine 1.46. Lactic acid level was 2.9. Total protein 5.9 and albumin 2.1. Urinalysis is unremarkable without any proteinuria or pyuria. Toxicology screen was negative. IMAGING DATA: She had multiple imaging studies done in the Emergency Room last evening which included a chest CT scan which showed no evidence of any infiltrate or effusion. She does have some atelectasis. Ascites was noted. PROBLEMS: 1. Hypotension this is a chronic issue and she has been on Midodrine with recent dose adjustment. I would suggest to continue with 10 mg three times daily of Midodrine. If her hypotension persists then she could benefit from intravenous albumin infusion. 2. Generalized edema her volume status is decompensated with generalized edema and also increased ascites. We will resume Torsemide 10 mg twice daily and Spironolactone 25 mg twice daily and see how she does and how she responds to diuretics. 3. [id number] kidney disease her kidney function is stable at about baseline. 4. Cirrhosis of liver with ascites she does have ascites and at some point she will need another paracentesis. I would wait until she is hemodynamically more stable before we consider paracentesis. 5. Anemia she does have a history of anemia with iron deficiency. We will consider giving her intravenous iron before she is discharged from the hospital. Thank you for involving me in the care of the Miss Ngo. I will follow her along with you.
[2021-03-22] MEDS: SLF 3 ML SYR IV SCH (21:51)
[2021-03-22] MEDS: tiZANidine 4 MG TAB PO PRN (23:30)
[2021-03-23] VITALS (14 sets, daily range): BP systolic 102–149; BP diastolic 52–68
[2021-03-23 00:11] LABS: HEMATOCRIT 25.1 % (36.0-47.0); HEMOGLOBIN 7.9 g/dl (12.0-15.5)
[2021-03-23 05:55] LABS: HEMATOCRIT 21.7 % (36.0-47.0); MEAN CORPUSCULAR HEMOGLOBIN 29.4 pg (27.0-33.0); MEAN CORPUSCULAR HGB CONC 30.9 g/dl (32.0-36.5); MEAN CORPUSCULAR VOLUME 95.2 fl (80.0-96.0); PLATELET COUNT, AUTOMATED 117 10^3/uL (150-450); RED BLOOD COUNT 2.28 10^6/uL (4.00-5.40); WHITE BLOOD COUNT 4.7 10^3/uL (4.0-10.0)
[2021-03-23 05:58] LABS: HEMOGLOBIN 6.7 g/dl (12.0-15.5)
[2021-03-23] MEDS: SLF 3 ML SYR IV SCH ×3 (06:20→21:04)
[2021-03-23] MEDS: LEVOTHYROXINE 25MCG TABLET (0.025MG) PO SCH (06:20)
[2021-03-23 06:30] LABS: ALBUMIN 1.9 GM/DL (3.2-5.2); BILIRUBIN,TOTAL 0.9 MG/DL (0.2-1.0); CREATININE FOR GFR 1.53 MG/DL (0.55-1.30); GLOMERULAR FILTRATION RATE 36.5 (>45); MAGNESIUM LEVEL 2.7 MG/DL (1.8-2.4); POTASSIUM SERUM 4.4 MEQ/L (3.5-5.1); TOTAL PROTEIN 5.3 GM/DL (6.4-8.2)
[2021-03-23 06:32] LABS: EOSINOPHILS 3 % (0-3); LYMPHOCYTES 35 % (16-44); MONOCYTES 6 % (0-5); NEUTROPHILS 56 % (28-66)
[2021-03-23 06:33] LABS: HYPOCHROMASIA 2+; PLATELET ESTIMATE NORMAL (NORMAL)
[2021-03-23] MEDS: HumaLOG INSULIN (NovoLOG) PER UNIT SC SCH ×4 (07:19→21:00)
[2021-03-23] MEDS: VITAMIN D 1,000 INTERNATIONAL UNITS TABLET PO SCH (07:52)
[2021-03-23] MEDS: OMEPRAZOLE 20 MG CAP PO SCH (07:52)
[2021-03-23] MEDS: LACTULOSE 20 GM/30 ML SYRUP UD PO SCH ×3 (07:52→21:01)
[2021-03-23] MEDS: SPIRONOLACTONE 25 MG TAB PO SCH ×2 (07:52→16:18)
[2021-03-23] MEDS: ASCORBIC ACID 500 MG TAB PO SCH (07:53)
[2021-03-23] MEDS: MIDODRINE 5 MG TAB PO SCH ×4 (07:53→16:00)
[2021-03-23] MEDS: TORSEMIDE 10 MG TABLET PO SCH ×2 (07:53→16:19)
[2021-03-23] MEDS: GABAPENTIN 300 MG CAP PO SCH ×2 (07:54→21:01)
[2021-03-23] MEDS: MAGNESIUM OXIDE 400MG TAB (MAG-OX) PO SCH ×2 (07:58→21:01)
[2021-03-23] MEDS ORDERED: XIFA200T2 PO (09:48)
--- NOTE | 2021-03-23 10:00 | IPNPDOC ---
Text Note Date of Service The patient was seen on 03/23/21. NOTE Subjective: Patient seen and examined at bedside. No acute overnight events reported. Patient is somewhat confused this morning, but will answer questions correctly, with some prompting. No new medical complaints this morning. Objective: Vitals (See below) General: NAD, lying comfortably in bed HEENT: NC/AT, EOMI CVS: +S1S2, systolic murmur Lungs: Fair air entry b/l, no wheezing, rales or rhonchi Abdomen: Soft, ND, NT Extremities: There is 1+ pitting edema at her bilateral feet, - Calf tenderness Psych: oriented to person, place. mild confusion today. A/P: 65F presented to the emergency room after reporting low blood pressure, sat at the edge of the bed used her walker to ambulate to the bathroom. However, when she went to sit on the toilet, she began to lightheadedness and fell. Patient denied any loss of consciousness or head trauma reported that she landed on her left hip and tried to catch herself with her right hand but may have strained a muscle. Patient has recently had a dose of her diuretics adjusted as outpatient - torsemide dose increased from 10 to 20 and midodrine dose increased from 5 to 10. Patient was admitted to the hospital service for further evaluation and treatment. #Normocytic anemia - transfusing 2 PRBC this morning - stool occult blood positive - history of esophageal varices - GI not available this week #Hypotension / Light-headedness / Near-syncope - Patient reports that her diuretics have been increased from an outpatient setting - Diuretic therapy on hold - c/w Midodrine at 10 TID - s/p IV fluid hydration (for 1 Liter only) #Fall / Chest wall discomfort - likely 2/2 above - Patient has reported left hip and right chest wall tenderness - Troponin trend negative - Imaging negative - c/w muscle relaxants, Tramadol - c/w physical therapy with fall precautions and activity as tolerated #AIDA on CKD3 - likely 2/2 pre-renal etiology - Cr improving - Patient is at the dose of her diuretics adjusted - Will hold nephrotoxic medications including diuretics - s/p IV fluid hydration for 1 Liter only - nephrology c/s appreciated #s/p Lactic acidosis - likely 2/2 hypotension - No evidence of infection - Blood cultures 03/22: Pending - UA without evidence of infection - Procalcitonin negative - Will hold off on antibiotics at this time #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 - History of ascites - History of esophageal varices - c/w Lactulose #Hyper-ammonemia - Possibly 2/2 dehydration - Will continue with home dose of lactulose #Thrombocytopenia 2/2 cirrhosis - Platelet count appears to be slightly higher than baseline #Hypotension (possibly 2/2 diuretics / cirrhosis) - c/w Midodrine (see above) #IDDM2 - c/w ISS #Gout - Will hold Allopurinol #Neuropathy - c/w Gabapentin #Obesity - BMI of 34.2 - Complicating medical care #Hypothyroidism - c/w Levothyroxine #Vitamin D deficiency - c/w Supplementation #Chronic back pain - c/w Tizanidine #GERD - c/w Omeprazole #DVT prophylaxis - c/w TEDs/Sequentials VS,Fishbone, I+O VS, Fishbone, I+O Laboratory Tests 03/22/21 11:54 03/22/21 18:14 03/23/21 00:02 03/23/21 05:41 Vital Signs Date Time Temp Pulse Resp B/P (MAP) Pulse Ox O2 Delivery O2 Flow Rate FiO2 03/23/21 09:23 98.0 64 16 113/55 93 Room Air I&O- Last 24 Hours up to 6 AM 03/23/21 06:00 Intake Total 100 ml Balance 100 ml JOYCE MCKINLEY MD March 23, 2021 10:00
--- NOTE | 2021-03-23 12:13 | IPN ---
PROGRESS NOTE DATE: 03/23/2021 SUBJECTIVE: Ms. Ngo is seen this morning on her bedside. She is much more confused today and not able to answer any questions appropriately. Nursing staff reports that she has been confused all morning. Her ammonia level has come down. She was able to take her medications by mouth. She remains very weak and in the bed most of the time. OBJECTIVE: VITAL SIGNS: Temperature 98.7 degrees Fahrenheit, heart rate 66 per minute and respiratory rate 18 per minute. Blood pressure 124/57 mmHg and oxygen saturation 92% on room air. Intake and output records are inaccurate. She weighed 91.2 kg today. HEENT: Her head is atraumatic. NECK: Supple and JVD is at least 8 to 9 cm above sternal angle. HEART: Heart sounds are regular. LUNGS: Diminished breath sounds and bibasilar rales. ABDOMEN: Distended with ascites and nontender. Bowel sounds are normal. EXTREMITIES: Extremities without any cyanosis or clubbing. Lower extremity edema is 2+ bilaterally. NEUROLOGIC: She is quite confused and disoriented though she is able to answer simple questions but she is not aware of where she is and what day today is. Today's labs show a WBC count of 4.7, hemoglobin 6.7, and hematocrit 21.7. Platelets 117. Sodium 140, potassium 4.4, CO2 31, BUN 35 and creatinine 1.53. Glucose 157 and calcium 8.0. Ammonia level is 53. Total protein 5.3 and albumin 1.9. Stool occult blood is positive. Blood cultures have been negative so far. PROBLEMS: 1. Acute kidney injury superimposed on chronic kidney disease. Slight worsening of kidney functioning noticed over the last 24 hours. She seems to be oliguric. However, I feel that her output is probably not recorded accurately. We will monitor her kidney function on a daily basis. There is no emergent need for dialysis at this point. 2. Anemia, probably acute blood loss anemia. She does have stool positive for occult blood. She is being transfused 2 units of packed RBCs. 3. Hypervolemia with generalized edema and ascites. She is still quite decompensated. We will continue diuretic for now and see how she does. She is on Spironolactone and Torsemide. 4. Altered mentation with hepatic encephalopathy. Her ammonia level has improved to 53 today. However, her mentation is worse. She remains on lactulose. 5. Cirrhosis of liver with ascites. The patient has significant ascites again and is likely to require paracentesis. I will defer to hospitalist service to make arrangements for it.
[2021-03-23] MEDS ORDERED: XIFA550T PO (13:22)
[2021-03-23 14:11] LABS: HEMATOCRIT 30.2 % (36.0-47.0)
[2021-03-23 14:13] LABS: HEMOGLOBIN 9.4 g/dl (12.0-15.5)
[2021-03-23] MEDS ORDERED: NYSTATIN 500,000 U/5 ML SUSP UDC SS SCH (16:00)
--- NOTE | 2021-03-23 18:50 | REP ---
INDICATION: eval ascites. COMPARISON: No pertinent priors TECHNIQUE: Limited 4 quadrant ultrasound to assess for ascites FINDINGS: Ascites was seen in all 4 quadrants IMPRESSION: There is evidence of moderate ascites in all 4 quadrants. Accredited by the [employer] in General Ultrasound. <Electronically signed by Renzo Aragon > 03/23/21 [id number]
[2021-03-23] MEDS: tiZANidine 4 MG TAB PO PRN (22:49)
[2021-03-24] VITALS: BP_SYST 120; BP_SYST 96; BP_DIAS 51; BP_DIAS 54
[2021-03-24 04:00] VITALS: BP 93/52
[2021-03-24 05:32] LABS: HEMATOCRIT 27.8 % (36.0-47.0); HEMOGLOBIN 8.7 g/dl (12.0-15.5); MEAN CORPUSCULAR HEMOGLOBIN 29.6 pg (27.0-33.0); MEAN CORPUSCULAR HGB CONC 31.3 g/dl (32.0-36.5); MEAN CORPUSCULAR VOLUME 94.6 fl (80.0-96.0); PLATELET COUNT, AUTOMATED 102 10^3/uL (150-450); RED BLOOD COUNT 2.94 10^6/uL (4.00-5.40); WHITE BLOOD COUNT 3.5 10^3/uL (4.0-10.0)
[2021-03-24] MEDS: LEVOTHYROXINE 25MCG TABLET (0.025MG) PO SCH (05:57)
[2021-03-24] MEDS: SLF 3 ML SYR IV SCH ×3 (05:57→21:16)
[2021-03-24 06:01] LABS: ATYPICAL LYMPH 3 % (0-5); EOSINOPHILS 1 % (0-3); LYMPHOCYTES 43 % (16-44); MONOCYTES 7 % (0-5); NEUTROPHILS 45 % (28-66); PLATELET ESTIMATE DECREASED (NORMAL)
[2021-03-24 06:02] LABS: ANISOCYTOSIS 1+; HYPOCHROMASIA 1+
[2021-03-24 06:09] LABS: BILIRUBIN,TOTAL 1.4 MG/DL (0.2-1.0); CALCIUM LEVEL 8.5 MG/DL (8.8-10.2); CREATININE FOR GFR 1.38 MG/DL (0.55-1.30); GLOMERULAR FILTRATION RATE 41.1 (>45); MAGNESIUM LEVEL 2.1 MG/DL (1.8-2.4); POTASSIUM SERUM 3.7 MEQ/L (3.5-5.1); TOTAL PROTEIN 5.6 GM/DL (6.4-8.2)
[2021-03-24 08:00] VITALS: BP 110/57
--- NOTE | 2021-03-24 08:56 | IPNPDOC ---
Text Note Date of Service The patient was seen on 03/24/21. NOTE Subjective: Patient seen and examined at bedside. No acute overnight events reported. Patient's mentation improved from yesterday. No new medical complaints this morning. Objective: Vitals (See below) General: NAD, lying comfortably in bed HEENT: NC/AT, EOMI CVS: +S1S2, systolic murmur Lungs: Fair air entry b/l, no wheezing, rales or rhonchi Abdomen: Soft, ND, NT Extremities: There is 1+ pitting edema at her bilateral feet, - Calf tenderness Psych: AAOx3 A/P: 65F presented to the emergency room after reporting low blood pressure, sat at the edge of the bed used her walker to ambulate to the bathroom. However, when she went to sit on the toilet, she began to lightheadedness and fell. Patient denied any loss of consciousness or head trauma reported that she landed on her left hip and tried to catch herself with her right hand but may have strained a muscle. Patient has recently had a dose of her diuretics adjusted as outpatient - torsemide dose increased from 10 to 20 and midodrine dose increased from 5 to 10. Patient was admitted to the hospital service for further evaluation and treatment. #Normocytic anemia - s/p 2 PRBC 03/23/21 - stool occult blood positive - history of esophageal varices - GI not available this week - discussed with surgery, no further intervention #Hypotension / Light-headedness / Near-syncope - Patient reports that her diuretics have been increased from an outpatient setting - c/w Midodrine at 10 TID with hold parameters - s/p IV fluid hydration (for 1 Liter only) #Fall / Chest wall discomfort - likely 2/2 above - Patient has reported left hip and right chest wall tenderness - Troponin trend negative - Imaging negative - c/w muscle relaxants, Tramadol - c/w physical therapy with fall precautions and activity as tolerated #AIDA on CKD3 - likely 2/2 pre-renal etiology - Cr improving - s/p IV fluid hydration for 1 Liter only - nephrology c/s appreciated - current diuretics - torsemide 10 BID, aldactone 25 BID #s/p Lactic acidosis - likely 2/2 hypotension - No evidence of infection - Blood cultures 03/22: Pending - UA without evidence of infection - Procalcitonin negative - Will hold off on antibiotics at this time #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 - History of ascites - plan for paracentesis today - History of esophageal varices - c/w Lactulose / rifaximin #Hyper-ammonemia - Possibly 2/2 dehydration - Will continue with home dose of lactulose #Thrombocytopenia 2/2 cirrhosis - Platelet count appears to be slightly higher than baseline #Hypotension (possibly 2/2 diuretics / cirrhosis) - c/w Midodrine (see above) #IDDM2 - c/w ISS #Gout - Will hold Allopurinol #Neuropathy - c/w Gabapentin #Obesity - BMI of 34.2 - Complicating medical care #Hypothyroidism - c/w Levothyroxine #Vitamin D deficiency - c/w Supplementation #Chronic back pain - c/w Tizanidine #GERD - c/w Omeprazole #DVT prophylaxis - c/w TEDs/Sequentials Dispo: monitor H/H, paracentesis today, started appeal process with insurance with recs for rifaximin as o/p VS,Fishbone, I+O VS, Fishbone, I+O Laboratory Tests 03/23/21 13:41 03/24/21 05:18 Vital Signs Date Time Temp Pulse Resp B/P (MAP) Pulse Ox O2 Delivery O2 Flow Rate FiO2 03/24/21 08:00 98.6 66 17 110/57 (74) 93 Room Air I&O- Last 24 Hours up to 6 AM 03/24/21 06:00 Intake Total 1280 ml Output Total 2200 ml Balance -920 ml JOYCE MCKINLEY MD March 24, 2021 08:56
[2021-03-24] MEDS: LACTULOSE 20 GM/30 ML SYRUP UD PO SCH ×3 (09:12→21:00)
[2021-03-24] MEDS: TORSEMIDE 10 MG TABLET PO SCH ×2 (09:13→17:33)
[2021-03-24] MEDS: OMEPRAZOLE 20 MG CAP PO SCH (09:13)
[2021-03-24] MEDS: SPIRONOLACTONE 25 MG TAB PO SCH ×2 (09:13→17:33)
[2021-03-24] MEDS: VITAMIN D 1,000 INTERNATIONAL UNITS TABLET PO SCH (09:13)
[2021-03-24] MEDS: ASCORBIC ACID 500 MG TAB PO SCH (09:13)
[2021-03-24] MEDS: MAGNESIUM OXIDE 400MG TAB (MAG-OX) PO SCH ×2 (09:13→21:15)
[2021-03-24] MEDS: GABAPENTIN 300 MG CAP PO SCH ×2 (09:14→21:14)
[2021-03-24] MEDS: MIDODRINE 5 MG TAB PO SCH ×3 (09:14→16:00)
[2021-03-24] MEDS: HumaLOG INSULIN (NovoLOG) PER UNIT SC SCH ×4 (09:14→21:00)
[2021-03-24] MEDS ORDERED: LORazepam 2 MG/ML VIAL IV STA (11:01)
[2021-03-24] MEDS ORDERED: SODIUM BICARBONATE 8.4% INJ 50MEQ 50 ML VIAL As Ordered ONE (11:07)
[2021-03-24] MEDS ORDERED: LORazepam 2 MG/ML VIAL As Ordered ONE (11:07)
[2021-03-24 11:56] LABS: SPEC. GRAVITY BODY FLUIDS 1.012 (NOT ESTABLISHED)
[2021-03-24 11:58] LABS: APPEARANCE, BODY FLUID HAZY (CLEAR); PERITONEAL FL COLOR YELLOW (COLORLESS); SOURCE, BODY FLUID PERITONEAL
[2021-03-24 12:00] VITALS: BP 121/58
--- NOTE | 2021-03-24 12:26 | IPN ---
PROGRESS NOTE DATE: 03/24/2021 SUBJECTIVE: Ms. Ngo is seen this morning on her bedside. She is sitting at the edge of the bed eating her breakfast. She is much better today with improved mentation and able to have a normal conversation. She is aware that yesterday she was quite confused and weak. She had an abdominal ultrasound yesterday, which did confirm ascites in all four quadrants of her abdomen. She is scheduled for a paracentesis today. She denies any dyspnea or chest pain. OBJECTIVE: VITAL SIGNS: Temperature 98.6 degrees Fahrenheit, heart rate 66 per minute, and respiratory rate 18 per minute. Blood pressure 110/57 mmHg and oxygen saturation 97% on room air. HEENT: Head is atraumatic. NECK: Supple. JVD is not visible sitting upright. LUNGS: Reveal slightly diminished breath sounds at the bases. HEART: Sounds are regular. ABDOMEN: Obese, soft, and distended with ascites. Bowel sounds are present. EXTREMITIES: Without cyanosis or clubbing. Lower extremity edema is 1+. NEUROLOGIC: She is awake and back to her baseline mentation without focal deficit. LABORATORY DATA: Today's labs show WBC count 3.5, hemoglobin 8.7, hematocrit 27.8, platelets 102,000. Sodium 142, potassium 3.7, CO2 of 32, BUN 33, and creatinine 1.38, glucose 184, and calcium 8.5. Total protein 5.6 and albumin is 2.0. PROBLEMS: 1. Acute kidney injury superimposed on chronic kidney disease. Kidney function has improved and stabilized. Will continue to monitor closely. 2. Congestive heart failure/hypervolemia. She does have some peripheral edema; however, she is oxygenating well on room air. She remains on maintenance diuretic. 3. Cirrhosis of liver with encephalopathy and ascites. Her encephalopathy has improved. Her ammonia level was down to 53 yesterday and she is scheduled for a paracentesis later today. 4. Anemia. Her anemia has improved following transfusion. She will need close monitoring as she does have a history of esophageal varices and has high risk for blood loss. She is probably going to require further transfusion. We will also consider giving her a dose of Injectafer at some point prior to discharge. 5. Hypotension. Blood pressure seems to have improved and we will continue monitoring closely.
[2021-03-24 12:29] LABS: SOURCE, BODY FLUID ALBUMIN PERITONEAL; SOURCE, BODY FLUID GLUCOSE PERITONEAL; SOURCE, BODY FLUID TOT PROTEIN PERITONEAL
[2021-03-24 16:00] VITALS: BP 134/60
[2021-03-24] MEDS: tiZANidine 4 MG TAB PO PRN (17:33)
[2021-03-24 20:00] VITALS: BP 122/55
--- NOTE | 2021-03-24 20:24 | REP ---
INDICATION: ascites The patient has a history of ascites COMPARISON: None. TECHNIQUE: The procedure was performed by HERNAN Yi, under the direct supervision of Dr. Pacheco The risks and benefits of the procedure were explained to the patient and an informed consent was obtained both verbally and written. Directly prior to the start of the procedure a formal time-out was completed in the procedure room. The largest pocket of fluid was localized in the right flank using ultrasound guidance. The skin was prepped and draped in a sterile fashion. Eleven ML of buffered lidocaine was used as a local anesthetic. An 8-Slovenian multi side-hole catheter was inserted using trocar technique under ultrasound guidance. FINDINGS: 2700 mL was removed in total, 1300 mL was sent to the laboratory for further analysis, and the rest was discarded. The patient tolerated the procedure well and there were no immediate complications. After the appropriate amount of monitored convalescence, the patient was discharged from the department. IMPRESSION: Ultrasound-guided paracentesis with removal of 2700 mL of yellow ascites <Electronically signed by Lakisha Dumas > 03/24/21 1230 <Electronically signed by Santana Pacheco > 03/24/212020
[2021-03-24] MEDS: LIDOCAINE 5% (LIDODERM) PATCH TD SCH (21:49)
[2021-03-25] VITALS (9 sets, daily range): BP systolic 104–143; BP diastolic 54–73
[2021-03-25] MEDS: traMADol 50 MG TAB PO PRN ×2 (04:07→15:42)
[2021-03-25] MEDS: LEVOTHYROXINE 25MCG TABLET (0.025MG) PO SCH (05:44)
[2021-03-25] MEDS: SLF 3 ML SYR IV SCH ×3 (05:44→21:13)
[2021-03-25 06:18] LABS: HEMATOCRIT 28.3 % (36.0-47.0); HEMOGLOBIN 8.8 g/dl (12.0-15.5); MEAN CORPUSCULAR HEMOGLOBIN 29.4 pg (27.0-33.0); MEAN CORPUSCULAR HGB CONC 31.1 g/dl (32.0-36.5); MEAN CORPUSCULAR VOLUME 94.6 fl (80.0-96.0); PLATELET COUNT, AUTOMATED 103 10^3/uL (150-450); RED BLOOD COUNT 2.99 10^6/uL (4.00-5.40); WHITE BLOOD COUNT 3.5 10^3/uL (4.0-10.0)
[2021-03-25 06:36] LABS: BILIRUBIN,TOTAL 0.6 MG/DL (0.2-1.0); CALCIUM LEVEL 8.2 MG/DL (8.8-10.2); CREATININE FOR GFR 1.3 MG/DL (0.55-1.30); MAGNESIUM LEVEL 1.8 MG/DL (1.8-2.4); POTASSIUM SERUM 3.8 MEQ/L (3.5-5.1); TOTAL PROTEIN 5.8 GM/DL (6.4-8.2)
[2021-03-25 06:52] LABS: EOSINOPHILS 5 % (0-3); LYMPHOCYTES 33 % (16-44); MONOCYTES 10 % (0-5); NEUTROPHILS 52 % (28-66); PLATELET ESTIMATE NORMAL (NORMAL)
[2021-03-25] MEDS: HumaLOG INSULIN (NovoLOG) PER UNIT SC SCH ×4 (08:27→21:00)
[2021-03-25] MEDS: MIDODRINE 5 MG TAB PO SCH ×3 (08:27→15:26)
--- NOTE | 2021-03-25 08:59 | CR ---
CONSULTATION DATE: 03/24/2021 REASON FOR CONSULTATION: Anemia. HISTORY OF PRESENT ILLNESS: The patient is a 65-year-old female who presented to the emergency room after having a fall due to hypotension. She has a known history of cirrhosis and was recently in the hospital due to complications from that. She was recently discharged home; however, her insurance is not covering the medications that she needs. So due to her lightheadedness and elevated ammonia levels, she likely got weak and came back in again. She does have a history of esophageal varices that were banded by Dr. Quezada in the past and currently, she does have some slight anemia and because of that, I was asked to evaluate her for possible repeat upper endoscopy. This morning, she denies any coughing or throwing up of any blood. No bowel movements overnight. No blood in her stool. Her mentation is much improved this morning. I explained to her that due to her anemia, upper endoscopy would be possible at this time; however, it is unlikely to be secondary to variceal bleed due to the small amount of bleeding that is assumed at this time. It is more likely secondary to gastritis versus some sort of inflammation. Therefore, upper endoscopy would be diagnostic rather than therapeutic. She understood and is okay with avoiding endoscopy at this time. We will continue to monitor her and see if things sales and service change leader the next 24-48 hours. PAST MEDICAL HISTORY: 1. Cirrhosis. 2. Ascites. 3. Esophageal varices. 4. Thrombocytopenia. 5. Hypotension. 6. Diabetes. 7. Chronic kidney disease. 8. Gout. 9. Neuropathy. 10. Obesity. 11. Vitamin D deficiency. 12. GERD. PAST SURGICAL HISTORY: 1. Cholecystectomy. 2. Colonoscopies with polyp removal. 3. Cataract surgery. ALLERGIES: None. HOME MEDICATIONS: Please see med rec. REVIEW OF SYSTEMS: Pertinent positives and negatives as stated in the HPI. PHYSICAL EXAMINATION: GENERAL: A&O x3, in no acute distress. VITAL SIGNS: Temperature 98.6, pulse 66, respirations 17, blood pressure 110/57, pulse ox 93% on room air. HEENT: Pupils equally round, reactive to light and accommodation. HEART: S1, S2. Regular rate and rhythm. LUNGS: Clear to auscultation bilaterally. ABDOMEN: Soft, nontender, and nondistended. EXTREMITIES: No clubbing, cyanosis, or edema. LABORATORY DATA: White count 3.5, hemoglobin 8.7, platelets 102,000. Potassium 3.7, creatinine 1.38. Ammonia level was 53. ASSESSMENT AND PLAN: The patient is a 65-year-old female with anemia, cirrhosis, and ascites. She presented here with weakness after a fall and hemoglobin was 6.7. She was given a few units of blood and hemoglobin responded appropriately. She has continued to be stable. She is up to 8.7 today. No visible blood at this time. Recommendation is to hold off on endoscopy. I do not have the ability to do banding if this were due to varices and any other minor bleeding such as gastritis, duodenitis, esophagitis, which could very well be reasonable for her low volume blood loss, endoscopy for those would not be therapeutic it would just be diagnostic. Since she is stable, I would recommend we just continue to monitor her for the next 24-48 hours to see if she continues to be stable. If her hemoglobin continues to drop, then we can reconsider endoscopy at that time.
[2021-03-25] MEDS: LACTULOSE 20 GM/30 ML SYRUP UD PO SCH ×3 (09:43→21:12)
[2021-03-25] MEDS: TORSEMIDE 10 MG TABLET PO SCH ×2 (09:44→17:45)
[2021-03-25] MEDS: MAGNESIUM OXIDE 400MG TAB (MAG-OX) PO SCH ×2 (09:44→21:12)
[2021-03-25] MEDS: ASCORBIC ACID 500 MG TAB PO SCH (09:44)
[2021-03-25] MEDS: VITAMIN D 1,000 INTERNATIONAL UNITS TABLET PO SCH (09:44)
[2021-03-25] MEDS: GABAPENTIN 300 MG CAP PO SCH ×2 (09:45→21:11)
[2021-03-25] MEDS: SPIRONOLACTONE 25 MG TAB PO SCH ×2 (09:45→17:45)
[2021-03-25] MEDS: OMEPRAZOLE 20 MG CAP PO SCH (09:46)
[2021-03-25] MEDS: **NOTE PATIENT COMMENT** MISC XX SCH (09:49)
--- NOTE | 2021-03-25 10:52 | IPNPDOC ---
Text Note Date of Service The patient was seen on 03/25/21. NOTE Subjective: Patient seen and examined at bedside. No acute overnight events reported. Patient's mentation improved from yesterday. No new medical complaints this morning. Objective: Vitals (See below) General: NAD, lying comfortably in bed HEENT: NC/AT, EOMI CVS: +S1S2, systolic murmur Lungs: Fair air entry b/l, no wheezing, rales or rhonchi Abdomen: Soft, ND, NT Extremities: There is 1+ pitting edema at her bilateral feet, - Calf tenderness Psych: AAOx3 A/P: 65F presented to the emergency room after reporting low blood pressure, sat at the edge of the bed used her walker to ambulate to the bathroom. However, when she went to sit on the toilet, she began to lightheadedness and fell. Patient denied any loss of consciousness or head trauma reported that she landed on her left hip and tried to catch herself with her right hand but may have strained a muscle. Patient has recently had a dose of her diuretics adjusted as outpatient - torsemide dose increased from 10 to 20 and midodrine dose increased from 5 to 10. Patient was admitted to the hospital service for further evaluation and treatment. #Normocytic anemia - s/p 2 PRBC 03/23/21 - stool occult blood positive - history of esophageal varices - GI not available this week - discussed with surgery, no further intervention - discussed with patient and GI - patient has not followed up as directed - H/H stabilized - will recommend o/p f/u with GI #Hypotension / Light-headedness / Near-syncope - Patient reports that her diuretics have been increased from an outpatient setting - c/w Midodrine at 10 TID with hold parameters - s/p IV fluid hydration (for 1 Liter only) #Fall / Chest wall discomfort - likely 2/2 above - Patient has reported left hip and right chest wall tenderness - Troponin trend negative - Imaging negative - c/w muscle relaxants, Tramadol - c/w physical therapy with fall precautions and activity as tolerated #AIDA on CKD3 - likely 2/2 pre-renal etiology - Cr improving - s/p IV fluid hydration for 1 Liter only - nephrology c/s appreciated - current diuretics - torsemide 10 BID, aldactone 25 BID #s/p Lactic acidosis - likely 2/2 hypotension - No evidence of infection - Blood cultures 03/22: Pending - UA without evidence of infection - Procalcitonin negative - Will hold off on antibiotics at this time #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 - History of ascites - s/p paracentesis - 2.7L removed - History of esophageal varices - c/w Lactulose / rifaximin #Hyper-ammonemia - Possibly 2/2 dehydration - Will continue with home dose of lactulose #Thrombocytopenia 2/2 cirrhosis - Platelet count appears to be slightly higher than baseline #Hypotension (possibly 2/2 diuretics / cirrhosis) - c/w Midodrine (see above) #IDDM2 - c/w ISS #Gout - Will hold Allopurinol #Neuropathy - c/w Gabapentin #Obesity - BMI of 34.2 - Complicating medical care #Hypothyroidism - c/w Levothyroxine #Vitamin D deficiency - c/w Supplementation #Chronic back pain - c/w Tizanidine #GERD - c/w Omeprazole #DVT prophylaxis - c/w TEDs/Sequentials Dispo: monitor H/H, follow up PT, anticipating discharge in 24-48 hours VS,Fishbone, I+O VS, Fishbone, I+O Laboratory Tests 03/25/21 05:26 Vital Signs Date Time Temp Pulse Resp B/P (MAP) Pulse Ox O2 Delivery O2 Flow Rate FiO2 03/25/21 08:00 97.2 75 17 128/56 (80) 95 Room Air I&O- Last 24 Hours up to 6 AM 03/25/21 06:00 Intake Total 2700 ml Output Total 2750 ml Balance -50 ml JOYCE MCKINLEY MD March 25, 2021 10:52
--- NOTE | 2021-03-25 20:21 | IPN ---
PROGRESS NOTE DATE: 03/25/2021 SUBJECTIVE: Ms. Ngo is seen this morning on her bedside. She is feeling much better today and denies any nausea, vomiting, dyspnea or chest pain. She had paracentesis done yesterday, which was uneventful as she did receive some sedation. She had 2700 mL fluid removed. PHYSICAL EXAMINATION: VITALS: Temperature 97.2 degrees Fahrenheit, heart rate 75 per minute, respiratory rate 18 per minute, blood pressure 128/56 mmHg and oxygen saturation 95% on room air. HEENT: Head is atraumatic. Neck is supple and JVD still moderately elevated. She has no oral thrush or ulcers. LUNGS: With a few basilar rales bilaterally. HEART: Heart sounds are regular. ABDOMEN: Significantly improved ascites. Bowel sounds are normal. EXTREMITIES: Without any cyanosis or clubbing. Lower extremity edema is 1+. NEUROLOGIC: She is awake, alert and oriented x3. LABORATORY DATA: Today's labs show sodium 141, potassium 3.8, CO2 33, BUN 29, creatinine 1.30, glucose 214 and calcium 8.2. Serum albumin 2.0. Hemoglobin 8.8 and hematocrit 28.3, WBC 3.5 and platelets 103,000. PROBLEMS: 1. Acute kidney injury superimposed on chronic kidney disease: No significant change in kidney function over the last 24 hours. At this point, electrolytes are stable and we will continue to monitor closely. 2. Cirrhosis of liver with recurrent ascites: Patient had a paracentesis of 2700 mL yesterday. She tolerated it well. 3. Congestive heart failure: Her volume status remains slightly decompensated and I am increasing her Spironolactone dose to 50 mg b.i.d. Will continue with Torsemide 10 mg b.i.d. for now. 4. Anemia: She has known history of iron deficiency and anemia is stable since she was transfused. We will give her one dose of Injectafer 750 mg intravenously. 5. Hepatic encephalopathy: She remains stable at present and continues with lactulose.
[2021-03-25] MEDS ORDERED: FERRIC CARBOXYMALTOSE INJ 750 MG, VIAL MATE ADAPTER 1 EACH in NS 250 ML IV ONE (21:00)
[2021-03-25] MEDS: LIDOCAINE 5% (LIDODERM) PATCH TD SCH (21:00)
[2021-03-26] VITALS: BP 141/67
[2021-03-26 04:00] VITALS: BP 137/60
[2021-03-26] MEDS: traMADol 50 MG TAB PO PRN (04:16)
[2021-03-26 04:44] LABS: HEMATOCRIT 31.2 % (36.0-47.0); HEMOGLOBIN 9.8 g/dl (12.0-15.5); MEAN CORPUSCULAR HEMOGLOBIN 29.7 pg (27.0-33.0); MEAN CORPUSCULAR HGB CONC 31.4 g/dl (32.0-36.5); MEAN CORPUSCULAR VOLUME 94.5 fl (80.0-96.0); PLATELET COUNT, AUTOMATED 134 10^3/uL (150-450); WHITE BLOOD COUNT 5.3 10^3/uL (4.0-10.0)
[2021-03-26 05:08] LABS: ALBUMIN 2.2 GM/DL (3.2-5.2); BILIRUBIN,TOTAL 0.7 MG/DL (0.2-1.0); CALCIUM LEVEL 8.4 MG/DL (8.8-10.2); CREATININE FOR GFR 1.34 MG/DL (0.55-1.30); GLOMERULAR FILTRATION RATE 42.5 (>45); MAGNESIUM LEVEL 1.6 MG/DL (1.8-2.4); POTASSIUM SERUM 3.7 MEQ/L (3.5-5.1); TOTAL PROTEIN 6.3 GM/DL (6.4-8.2)
[2021-03-26 05:12] LABS: ANISOCYTOSIS 1+; ATYPICAL LYMPH 4 % (0-5); BASOPHILS 1 % (0-1); EOSINOPHILS 3 % (0-3); LYMPHOCYTES 18 % (16-44); MONOCYTES 9 % (0-5); NEUTROPHILS 65 % (28-66); PLATELET ESTIMATE DECREASED (NORMAL)
[2021-03-26 05:13] LABS: HYPOCHROMASIA 1+
[2021-03-26] MEDS: LEVOTHYROXINE 25MCG TABLET (0.025MG) PO SCH (06:25)
[2021-03-26] MEDS: SLF 3 ML SYR IV SCH (06:26)
[2021-03-26 08:00] VITALS: BP 132/58
[2021-03-26] MEDS ORDERED: MAG SULF 1GM/100ML (MAG RUN) 1 GM in IV 1 EA IV ONE (08:00)
[2021-03-26] MEDS: MIDODRINE 5 MG TAB PO SCH ×2 (08:00→13:17)
[2021-03-26] MEDS: **NOTE PATIENT COMMENT** MISC XX SCH (09:00)
[2021-03-26] MEDS ORDERED: SPIRONOLACTONE 50 MG TAB PO SCH (09:00)
[2021-03-26] MEDS ORDERED: SPIR-10 PO (09:39)
[2021-03-26] MEDS: LACTULOSE 20 GM/30 ML SYRUP UD PO SCH (09:41)
[2021-03-26] MEDS: TORSEMIDE 10 MG TABLET PO SCH (09:42)
[2021-03-26] MEDS: ASCORBIC ACID 500 MG TAB PO SCH (09:42)
[2021-03-26] MEDS: VITAMIN D 1,000 INTERNATIONAL UNITS TABLET PO SCH (09:42)
[2021-03-26] MEDS: OMEPRAZOLE 20 MG CAP PO SCH (09:42)
[2021-03-26] MEDS: GABAPENTIN 300 MG CAP PO SCH (09:42)
[2021-03-26] MEDS: MAGNESIUM OXIDE 400MG TAB (MAG-OX) PO SCH (09:42)
[2021-03-26] MEDS: HumaLOG INSULIN (NovoLOG) PER UNIT SC SCH ×2 (09:45→13:17)
--- NOTE | 2021-03-26 10:41 | DS.PDOC ---
Discharge Summary General Date of Admission March 21, 2021 at 11:17 Date of Discharge 03/26/21 Discharge Summary PROCEDURES PERFORMED DURING STAY: [None]. 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 HISTORY OF PRESENT ILLNESS: Patient is a 65-year-old female who presented to the emergency room for low blood pressures, with light headedness, and fall. Patient denied any loss of consciousness or head trauma reported that she landed on her left hip and tried to catch herself with her right hand but may have strained a muscle. Patient has recently had a dose of her diuretics adjusted as outpatient. Patient had her torsemide dose increased from 10-20 and midodrine dose increased from 5-10. Patient reported some left hip discomfort described as an 8/10 aching leg pain. However, she is able to ambulate place with leg. HOSPITAL COURSE: Patient was admitted for further evaluation and treatment. She was seen in consultation by nephrology and surgery. Her diuretics were adjusted. She did have a drop in her hemoglobin requiring transfusion of 2 units of packed red blood cells. 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 Her hemoglobin remained stable. Patient is being discharged home with outpatient follow-up. #Normocytic anemia - s/p 2 PRBC 03/23/21 - stool occult blood positive - history of esophageal varices - discussed with surgery, consultation appreciated - discussed with patient and GI - patient has not followed up as directed - H/H stabilized - needs o/p f/u with GI #Hypotension / Light-headedness / Near-syncope - Patient reports that her diuretics have been increased from an outpatient setting - c/w Midodrine at 10 TID - s/p IV fluid hydration (for 1 Liter only) #Fall / Chest wall discomfort - likely 2/2 above - Patient has reported left hip and right chest wall tenderness - Troponin trend negative - Imaging negative - c/w muscle relaxants, Tramadol #AIDA on CKD3 - likely 2/2 pre-renal etiology - at baseline - s/p IV fluid hydration for 1 Liter only - nephrology c/s appreciated - current diuretics - torsemide 10 BID, aldactone 25 BID #s/p Lactic acidosis - likely 2/2 hypotension - No evidence of infection - Blood cultures 03/22: Pending - UA without evidence of infection - Procalcitonin negative #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 - History of ascites - s/p paracentesis - 2.7L removed - History of esophageal varices - c/w Lactulose / rifaximin #Hyper-ammonemia - Possibly 2/2 dehydration - Will continue with home dose of lactulose #Thrombocytopenia 2/2 cirrhosis - Platelet count appears to be slightly higher than baseline #Hypotension (possibly 2/2 diuretics / cirrhosis) - c/w Midodrine (see above) #IDDM2 - c/w ISS #Gout - Will hold Allopurinol #Neuropathy - c/w Gabapentin #Obesity - BMI of 34.2 - Complicating medical care #Hypothyroidism - c/w Levothyroxine #Vitamin D deficiency - c/w Supplementation #Chronic back pain - c/w Tizanidine #GERD - c/w Omeprazole DISCHARGE MEDICATIONS: Please see below. ALLERGIES: Please see below. PHYSICAL EXAMINATION ON DISCHARGE: VITAL SIGNS: Please see below. General: NAD, lying comfortably in bed HEENT: NC/AT, EOMI CVS: +S1S2, systolic murmur Lungs: Fair air entry b/l, no wheezing, rales or rhonchi Abdomen: Soft, ND, NT Extremities: There is 1+ pitting edema at her bilateral feet, - Calf tenderness Psych: AAOx3 LABORATORY DATA: Please see below. ACTIVITY: [As tolerated]. DISPOSITION: Home with services if indicated. DISCHARGE INSTRUCTIONS: 1. PCP in 3-[address] Quezada within one week, recommending EGD DISCHARGE CONDITION: [Stable]. TIME SPENT ON DISCHARGE: 35 minutes. Vital Signs/I&Os Vital Signs Date Time Temp Pulse Resp B/P (MAP) Pulse Ox O2 Delivery O2 Flow Rate FiO2 03/26/21 04:46 18 93 Room Air 03/26/21 04:16 98.4 03/26/21 04:00 104 137/60 (85) I&O- Last 24 Hours up to 6 AM 03/26/21 06:00 Intake Total 755 ml Output Total 850 ml Balance -95 ml Laboratory Data Labs 24H Laboratory Tests 2 03/25/21 11:40: Bedside Glucose (Misc Panel) 224H 03/25/21 17:31: Bedside Glucose (Misc Panel) 251H 03/25/21 21:10: Bedside Glucose (Misc Panel) 218H 03/26/21 04:24: Immature Granulocyte % (Auto) , Neutrophils (%) (Auto) , Lymphocytes (%) (Auto) , Monocytes (%) (Auto) , Eosinophils (%) (Auto) , Basophils (%) (Auto) , Neutrophils # (Auto) , Lymphocytes # (Auto) , Monocytes # (Auto) , Eosinophils # (Auto) , Basophils # (Auto) , Nucleated Red Blood Cells % (auto) 0.0, Neutrophils 65, Lymphocytes (Manual) 18, Monocytes (Manual) 9H, Eosinophils (Manual) 3, Basophils (Manual) 1, Atypical Lymphocytes 4, Hypochromasia 1+, Anisocytosis 1+, Platelet Estimate DECREASED, Anion Gap 4L, Glomerular Filtration Rate 42.5L, Calcium Level 8.4L, Magnesium Level 1.6L, Total Bilirubin 0.7, Aspartate Amino Transf (AST/SGOT) 40H, Alanine Aminotransferase (ALT/SGPT) 13, Alkaline Phosphatase 198H, Total Protein 6.3L, Albumin 2.2L, Albumin/ Globulin Ratio 0.5L CBC/BMP Laboratory Tests 03/26/21 04:24 FSBS Laboratory Tests Test 03/25/21 11:40 03/25/21 17:31 03/25/21 21:10 Range/Units Bedside Glucose (Misc Panel) 224 251 218 80-115 MG/DL Microbiology Microbiology 03/24/21 Gram Stain - Final, Complete 03/24/21 Body Fluid Culture - Final, Complete 03/22/21 Stool Occult Blood (REI) - Final, Complete 03/21/21 Blood Culture - Preliminary, Resulted No Growth after 72 hours. All specime... 03/21/21 Blood Culture - Final, Complete NO GROWTH AFTER 5 DAYS Discharge Medications Scheduled Allopurinol (Allopurinol) 100 Mg Tab, 100 MG PO QHS, (Reported) Ascorbic Acid (Vitamin C) 1,000 Mg Tablet, 1,000 MG PO DAILY, (Reported) Cholecalciferol (Vitamin D3) (Vitamin D3) 1,000 Unit Tablet, 1,000 UNITS PO DAILY, (Reported) Gabapentin (Gabapentin) 300 Mg Capsule, 300 MG PO BID, (Reported) Insulin Human Lispro (Novolog) 100 U/Ml Inj, 1 DOSE SC ACHS, (Reported) PER SLIDING SCALE Lactulose (Lactulose) 10 Gm/15 Ml Solution, 30 ML PO TID, (Reported) Levothyroxine Sodium (Levothyroxine Sodium) 25 Mcg Tablet, 25 MCG PO DAILY, (Reported) Magnesium Oxide (Magnesium Oxide) 400 Mg Tablet, 800 MG PO BID, (Reported) Midodrine HCl (Midodrine HCl) 5 Mg Tablet, 10 MG PO TID, (Reported) Omeprazole (Omeprazole) 40 Mg Capsule.dr, 40 MG PO DAILY, (Reported) Rifaximin (Xifaxan) 550 Mg Tablet, 550 MG PO BID Spironolactone (Spironolactone) 25 Mg Tablet, 25 MG PO BID Torsemide (Torsemide) 10 Mg Tablet, 20 MG PO DAILY, (Reported) Scheduled PRN Albuterol Sulfate (Ventolin Hfa) 18 Gm Hfa.aer.ad, 2 PUFF INH Q4H PRN for SHORTNESS OF BREATH, (Reported) Tizanidine HCl (Tizanidine HCl) 4 Mg Tablet, 4 MG PO TID PRN for MUSCLE SPASMS, (Reported) Allergies Coded Allergies: No Known Drug Allergies (Verified Allergy, Unknown, 01/19/21) JOYCE MCKINLEY MD March 26, 2021 10:41
--- NOTE | 2021-03-26 12:19 | IPN ---
PROGRESS NOTE DATE: 03/26/2021 SUBJECTIVE: Ms. Ngo is seen this morning on her bedside. She is feeling much better and denies any dyspnea, chest pain, nausea or vomiting. PHYSICAL EXAMINATION: VITALS: Temperature 98.5 degrees Fahrenheit, heart rate 102 per minute, respiratory rate 18 per minute, blood pressure 132/58 mmHg, oxygen saturation 94% on room air. HEENT: Head is atraumatic. Neck is supple and JVD still mildly elevated about 6-7 cm above sternal angle. LUNGS: With slightly diminished breath sounds and basilar rales. HEART: Heart sounds are tachycardic and irregular. ABDOMEN: Soft and mild ascites is present. There is no tenderness. EXTREMITIES: Without any cyanosis or clubbing. 1+ lower extremity edema is noticed. NEUROLOGIC: She is awake, alert and oriented x3. LABORATORY DATA: Today's labs show WBC 5.3, hemoglobin 9.8, hematocrit 31.2, platelet count 134,000. Sodium 137, potassium 3.7, BUN 23, creatinine 1.34, glucose 224 and calcium 8.4. PROBLEMS: 1. Acute on chronic kidney disease: No significant change in kidney function and overall she has been stable without any uremic symptoms. 2. Congestive heart failure: Volume status only slightly decompensated. I have increased her Spironolactone dose to 50 mg b.i.d. in view of ascites and hypervolemia. She will continue with Torsemide 10 mg b.i.d. 3. Anemia: She has history of GI bleed with iron deficiency anemia. She has received a dose of Injectafer 750 mg last evening. Her anemia has improved now. She was transfused 2 units of packed RBCs on March 23. She has known history of esophageal varices and will follow-up with GI as an outpatient. 4. Cirrhosis of liver: Complicated with hepatic encephalopathy. She is doing well and remains on lactulose. DISPOSITION: From a renal standpoint, patient can be discharged to home and follow-up in the clinic as an outpatient.
== END 2021-03-26 14:16 | disposition home health service (06) | DRG 642 ==
LOC: M ED 09:07 → M ED INP 11:17 → ENRESERV 12:17 → M PCU 13:06
PROVIDERS: ADMIT Internal Medicine; ATTEND Internal Medicine
PROC: 30233N1 Transfusion of Nonautologous Red Blood Cells into Peripheral Vein, Percutaneous Approach (ICD-10-PCS; 2021-03-23)
PROC: 0D9W3ZZ Drainage of Peritoneum, Percutaneous Approach (ICD-10-PCS; principal; 2021-03-24 14:30)
DX: E72.20 Disorder of urea cycle metabolism, unspecified (principal); N17.9 Acute kidney failure, unspecified; E87.2 Acidosis; R18.8 Other ascites; I13.0 Hypertensive heart and chronic kidney disease with heart failure and stage 1 through stage 4 chronic kidney disease, or unspecified chronic kidney disease; D62 Acute posthemorrhagic anemia; K74.60 Unspecified cirrhosis of liver; I95.89 Other hypotension; N18.30 Chronic kidney disease, stage 3 unspecified; K75.81 Nonalcoholic steatohepatitis (NASH); E86.0 Dehydration; K72.90 Hepatic failure, unspecified without coma; I50.9 Heart failure, unspecified; M10.9 Gout, unspecified; E66.9 Obesity, unspecified; G62.9 Polyneuropathy, unspecified; K21.9 Gastro-esophageal reflux disease without esophagitis; D69.6 Thrombocytopenia, unspecified; E03.9 Hypothyroidism, unspecified; Z68.34 Body mass index [BMI] 34.0-34.9, adult; E55.9 Vitamin D deficiency, unspecified; Z79.4 Long term (current) use of insulin; Z79.899 Other long term (current) drug therapy; E11.51 Type 2 diabetes mellitus with diabetic peripheral angiopathy without gangrene

== ENCOUNTER → 2021-03-31 | Outpatient (CLI) | payer OTHER ==
[~2021-03-31] MED LIST changes: +TIZA4TAB4 PO; +XIFA550T PO
[2021-03-31 17:29] LABS: HEMATOCRIT 35.2 % (36.0-47.0); HEMOGLOBIN 10.9 g/dl (12.0-15.5); MEAN CORPUSCULAR HEMOGLOBIN 30.3 pg (27.0-33.0); MEAN CORPUSCULAR VOLUME 97.8 fl (80.0-96.0); PLATELET COUNT, AUTOMATED 164 10^3/uL (150-450); WHITE BLOOD COUNT 6.5 10^3/uL (4.0-10.0)
[2021-03-31 17:51] LABS: ALBUMIN 2.5 GM/DL (3.2-5.2); BILIRUBIN,TOTAL 0.8 MG/DL (0.2-1.0); CALCIUM LEVEL 9.3 MG/DL (8.8-10.2); CREATININE FOR GFR 1.49 MG/DL (0.55-1.30); GLOMERULAR FILTRATION RATE 37.6 (>45); POTASSIUM SERUM 3.8 MEQ/L (3.5-5.1); TOTAL PROTEIN 6.8 GM/DL (6.4-8.2)
[2021-03-31 18:40] LABS: ATYPICAL LYMPH 13 % (0-5); BASOPHILS 1 % (0-1); EOSINOPHILS 5 % (0-3); LYMPHOCYTES 12 % (16-44); MONOCYTES 7 % (0-5); NEUTROPHILS 60 % (28-66)
[2021-03-31 18:41] LABS: ANISOCYTOSIS 2+; PLATELET ESTIMATE NORMAL (NORMAL)
== END ==
LOC: M LAB 16:30
PROVIDERS: ATTEND Physician Assistant Medical
DX: K74.60 Unspecified cirrhosis of liver (principal)

== ENCOUNTER 2021-04-15 10:42 | Outpatient (CLI) | payer OTHER ==
[~2021-04-15] VITALS: Ht 162.6 cm; Wt 92.0 kg
[~2021-04-15 10:42] MED LIST changes: +ALBUTEROL SULFATE 2.5 MG/0.5 ML INH NEB SOLN INH PRN; +EPINEPHrine INJ 1 MG/ML 1ML AMP IM PRN; +FERRIC CARBOXYMALTOSE INJ 750 MG, VIAL MATE ADAPTER 1 EACH in NS 250 ML IV ONE; +NS 1,000 ML IV SCH; +diphenhydrAMINE 50MG/ML VIAL (J1200) IV PRN; +methylPREDNISolone 125MG 2ML VIAL IV PRN
[2021-04-15 11:15] VITALS: BP 109/53
== END 2021-04-15 13:10 | disposition home or self-care (01) ==
LOC: M INFU 10:42
PROVIDERS: ATTEND Internal Medicine Nephrology
DX: D50.9 Iron deficiency anemia, unspecified (principal)
CPT/HCPCS: 96361; 96365; J1439

== ENCOUNTER → 2021-04-17 | Outpatient (CLI) | payer OTHER ==
[~2021-04-17] MED LIST changes: -ALBUTEROL SULFATE 2.5 MG/0.5 ML INH NEB SOLN INH PRN; -EPINEPHrine INJ 1 MG/ML 1ML AMP IM PRN; -FERRIC CARBOXYMALTOSE INJ 750 MG, VIAL MATE ADAPTER 1 EACH in NS 250 ML IV ONE; +MIDO10TA PO; -NS 1,000 ML IV SCH; -diphenhydrAMINE 50MG/ML VIAL (J1200) IV PRN; -methylPREDNISolone 125MG 2ML VIAL IV PRN
== END ==
LOC: M LABSMTC 09:59
PROVIDERS: ATTEND Anesthesiology
DX: Z01.818 Encounter for other preprocedural examination (principal); Z11.52 Encounter for screening for COVID-19

== ENCOUNTER 2021-04-19 07:01 | Inpatient (IN) | payer OTHER ==
[~2021-04-19] VITALS: Ht 162.6 cm; Wt 81.8 kg
[~2021-04-19 07:01] MED LIST changes: -MIDO10TA PO
[2021-04-19 08:06] LABS: BASO % 0.6 % (0.0-1.0); EOS # 0.1 10^3/uL (0.0-0.5); EOS % 2.2 % (0.0-3.0); HEMATOCRIT 27.6 % (36.0-47.0); MEAN CORPUSCULAR HEMOGLOBIN 32.1 pg (27.0-33.0); MEAN CORPUSCULAR HGB CONC 32.6 g/dl (32.0-36.5); MEAN CORPUSCULAR VOLUME 98.6 fl (80.0-96.0); MONO # 0.6 10^3/uL (0.0-0.8); MONO % 12.2 % (2.0-8.0); NEUTROPHILS # 3.3 10^3/uL (1.5-8.5); NEUTROPHILS % 65.6 % (36.0-66.0); PLATELET COUNT, AUTOMATED 133 10^3/uL (150-450)
[2021-04-19 08:35] LABS: ALBUMIN 2.4 GM/DL (3.2-5.2); ALT/SGPT 13 U/L (12-78); BILIRUBIN,DIRECT 0.4 MG/DL (0.0-0.2); BILIRUBIN,TOTAL 0.7 MG/DL (0.2-1.0); BLOOD UREA NITROGEN 50 MG/DL (7-18); CALCIUM LEVEL 8.4 MG/DL (8.8-10.2); CARBON DIOXIDE LEVEL 28 MEQ/L (21-32); CHLORIDE LEVEL 100 MEQ/L (98-107); CK-MB VALUE MASS 1.6 NG/ML (<3.6); CPK CREATINE PHOSPHOKINASE 71 U/L (26-192); CREATININE FOR GFR 1.96 MG/DL (0.55-1.30); GLOMERULAR FILTRATION RATE 27.4 (>45); GLUCOSE, FASTING 316 MG/DL (70-100); MB/CK RELATIVE INDEX 2.25 (< OR =4); POTASSIUM SERUM 4.5 MEQ/L (3.5-5.1); SODIUM LEVEL 136 MEQ/L (136-145); TOTAL PROTEIN 6.4 GM/DL (6.4-8.2); TROPONIN I < 0.02 NG/ML (< 0.10)
[2021-04-19 09:07] LABS: RSV AMPLIFICATION NEGATIVE (NEGATIVE)
--- NOTE | 2021-04-19 09:51 | REP ---
INDICATION: Altered Mental Status COMPARISON: 03/21/2021 TECHNIQUE: Portable AP view of the chest FINDINGS: Mediastinum and cardiac silhouette are stable and within normal limits for portable technique. Left lower lobe opacity consistent with atelectasis/airspace disease and pleural effusion again noted but appears improved. No new process identified. No pneumothorax. IMPRESSION: Moderate left lower lobe opacity suggesting effusion and infiltrate appear improved compared to prior examination. <Electronically signed by Michael Vincent > 04/19/21 [id number]
[2021-04-19] MEDS ORDERED: XIFA550T PO (10:15)
[2021-04-19] MEDS ORDERED: SPIR-10 PO (10:15)
[2021-04-19] MEDS ORDERED: MIDO10TA PO (10:15)
[2021-04-19] MEDS ORDERED: DEXTROSE 50% 50 ML SYRINGE IV PRN (10:30)
[2021-04-19] MEDS ORDERED: GLUCOSE 4GM CHEW TABLET PO PRN (10:30)
[2021-04-19] MEDS ORDERED: NS 1,000 ML IV SCH ×2 (10:30→17:25)
[2021-04-19] MEDS ORDERED: ACETAMINOPHEN TAB 650MG DOSE (2X325MG) PO PRN (10:30)
[2021-04-19] MEDS ORDERED: GLUCAGON INJ 1MG VIAL SC PRN (10:30)
--- NOTE | 2021-04-19 10:56 | HPEPDOC ---
[facility] Medical History & Physical Date of Admission Apr 19, 2021 Date of Service: Apr 19, 2021 History and Physical Chief complaint: Presented to the ER with confusion History of present illness: Patient is a 65-year-old female who presented to the emergency room with confusion that started this morning patient is unable to provide any details of her history, however, is present at the bedside. Patients is reported that she has been compliant with her lactulose and medications at home. They have been continuing with the fluid restriction. This morning patient was acting strange and brought her to the emergency room for further evaluation. Currently patient is only able to answer what. Patients has reported that she has always experienced dark-colored stools for the last 1 month. She was scheduled to receive an EGD and colonoscopy with Dr. Quezada on 04/22/2021. Patient has multiple admissions in the last year for hepatic encephalopathy. Patients prior admission 03/21 to 03/26; patient received transfusions for anemia. However, was not scoped. Past Medical History: 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 History of ascites History of esophageal varices Thrombocytopenia 2/2 cirrhosis Hypotension (possibly 2/2 diuretics / cirrhosis) on Midodrine IDDM2 CKD3 Gout Neuropathy Obesity Vitamin D deficiency GERD Past Surgical History: Cholecystectomy Colonoscopy with polyp resection Cataract surgery Allergies: See below Medications: See below Family History: - Reported brother with history of colon cancer Social History: - Patient is unable to provide any answers that she is disoriented, however, based on the record. She generally does not drink, denies any drug use and was a prior smoker - Denies recent travel or sick contacts - Lives with Review of Systems: Unable to be obtained as patient is confused Physical exam: - Vitals: BP [138/63], HR [80], RR [18], Sat [98%RA], Temp [97.9F] - General: Lying in bed, Appears comfortable, Drowsy, able to answer what only - HEENT: NC, AT, pupils are equal and reactive - CVS: RRR, +S1S2 - Lungs: Fair air entry bilaterally, No appreciable wheezing / rales / rhonchi - Abdomen: Soft, Non-distended, Non-tender - Extremities: No lower extremity edema, No calf tenderness - Neuro: No focal motor or sensory deficit - Skin: No visible rashes Labs: See below Imaging: CXR 04/19: Moderate left lower lobe opacity suggesting effusion and infiltrate appear improved compared to prior examination. EKG: See below Assessment and Plan: Confusion / Acute metabolic encephalopathy - likely 2/2 acute hepatic encephalopathy - Hyper-ammonia; possibly 2/2 dehydration; possibly 2/2 GI bleed - Patient is very confused; only able to answer what - Patient appears to be moving all four extremities - Will get CT head -- Will trend H&H c/w Rifaxamin - Will continue with home dose of lactulose; will provide lactulose TN if unable to take PO - Will start Protonix - Case discussed / consulted GI (Dr. Quezada) for EGD / Colonoscopy; was lucio meyers scheduled for it on 04/22/2021 as an outpatient Questionable PNA - Patient remains afebrile and hemodynamically stable - No leukocytosis - Will get CT Chest - Will start Ceftriaxone and Doxycycline (Day #1) AIDA on CKD3 - likely 2/2 pre-renal etiology - Patient is on diuretics at home - Clinically there is no evidence of fluid overload - Will hold nephrotoxic medications including diuretics - Will check UA and urine electrolytes - Will start gentle IV fluid hydration Lactic acidosis - likely 2/2 dehydration - Will start gentle IV fluid hydration 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 - History of ascites - History of esophageal varices - Will get liver US - c/w Lactulose / Rifaxamin Thrombocytopenia 2/2 cirrhosis - No evidence of bleeding - Platelet count appears to be at baseline Hypotension (possibly 2/2 diuretics / cirrhosis) - c/w Midodrine (see above) IDDM2 - Will start ISS - Will provide adjusted dose of long acting insulin while patient is NPO Gout - Will hold Allopurinol Neuropathy - Will hold Gabapentin Obesity - BMI of 34.2 - Complicating medical care Hypothyroidism - Will hold Levothyroxine Vitamin D deficiency - Will hold Supplementation Chronic back pain - Will hold Tizanidine GERD - Will start Protonix IV DVT prophylaxis - Will start TEDs/Sequentials Vital Signs Vital Signs Date Time Temp Pulse Resp B/P (MAP) Pulse Ox O2 Delivery O2 Flow Rate FiO2 04/19/21 07:02 97.9 80 18 138/63 (88) 98 Room Air Laboratory Data Labs 24H Laboratory Tests 2 04/19/21 07:48: Immature Granulocyte % (Auto) 0.4, Neutrophils (%) (Auto) 65.6, Lymphocytes (%) (Auto) 19.0L, Monocytes (%) (Auto) 12.2H, Eosinophils (%) (Auto) 2.2, Basophils (%) (Auto) 0.6, Neutrophils # (Auto) 3.3, Lymphocytes # (Auto) 1.0L, Monocytes # (Auto) 0.6, Eosinophils # (Auto) 0.1, Basophils # (Auto) 0.0, Nucleated Red Blood Cells % (auto) 0.0, Anion Gap 8, Glomerular Filtration Rate 27.4L, Lactic Acid Level 2.4*H, Calcium Level 8.4L, Total Bilirubin 0.7, Direct Bilirubin 0.4H, Aspartate Amino Transf (AST/SGOT) 38H, Alanine Aminotransferase (ALT/SGPT) 13, Alkaline Phosphatase 324H, Ammonia 275H, Total Creatine Kinase 71, Creatine Kinase MB 1.6, Creatine Kinase MB Relative Index 2.25, Troponin I < 0.02, Total Protein 6.4, Albumin 2.4L, Albumin/Globulin Ratio 0.6L, Coronavirus (COVID- 19)(PCR) NEGATIVE, Influenza Type A (RT-PCR) NEGATIVE, Influenza Type B (RT-PCR) NEGATIVE, Respiratory Syncytial Virus (PCR) NEGATIVE CBC/BMP Laboratory Tests 04/19/21 07:48 Home Medications Scheduled Allopurinol (Allopurinol) 100 Mg Tab, 100 MG PO QHS Ascorbic Acid (Vitamin C) 1,000 Mg Tablet, 1,000 MG PO DAILY Cholecalciferol (Vitamin D3) (Vitamin D3) 1,000 Unit Tablet, 1,000 UNITS PO DAILY Gabapentin (Gabapentin) 300 Mg Capsule, 300 MG PO BID Insulin Human Lispro (Novolog) 100 U/Ml Inj, 1 DOSE SC ACHS PER SLIDING SCALE Lactulose (Lactulose) 10 Gm/15 Ml Solution, 30 ML PO TID Levothyroxine Sodium (Levothyroxine Sodium) 25 Mcg Tablet, 25 MCG PO DAILY Magnesium Oxide (Magnesium Oxide) 400 Mg Tablet, 800 MG PO BID Midodrine HCl (Midodrine HCl) 10 Mg Tablet, 10 MG PO TID Omeprazole (Omeprazole) 40 Mg Capsule.dr, 40 MG PO DAILY Rifaximin (Xifaxan) 550 Mg Tablet, 550 MG PO BID Spironolactone (Spironolactone) 25 Mg Tablet, 25 MG PO BID Torsemide (Torsemide) 10 Mg Tablet, 20 MG PO DAILY Scheduled PRN Albuterol Sulfate (Ventolin Hfa) 18 Gm Hfa.aer.ad, 2 PUFF INH Q4H PRN for SHORTNESS OF BREATH Tizanidine HCl (Tizanidine HCl) 4 Mg Tablet, 4 MG PO TID PRN for MUSCLE SPASMS Allergies Coded Allergies: No Known Drug Allergies (Verified Allergy, Unknown, 01/19/21) JUANA NERI MD Apr 19, 2021 10:56
--- NOTE | 2021-04-19 11:42 | REPVR ---
PROCEDURE INFORMATION: Exam: CT Head Without Contrast Exam date and time: 04/19/2021 10:49 AM Age: 65 years old Clinical indication: Other: Confusion TECHNIQUE: Imaging protocol: Computed tomography of the head without contrast. Radiation optimization: All CT scans at this facility use at least one of these dose optimization techniques: automated exposure control; mA and/or kV adjustment per patient size (includes targeted exams where dose is matched to clinical indication); or iterative reconstruction. COMPARISON: CT Head without contrast 03/08/2021 9:21 AM FINDINGS: Brain: Normal. No hemorrhage. Unremarkable white matter. No mass effect. Cerebral ventricles: No ventriculomegaly. Paranasal sinuses: Visualized sinuses are unremarkable. No fluid levels. Mastoid air cells: Visualized mastoid air cells are well aerated. Bones/joints: Unremarkable. No acute fracture. Soft tissues: Unremarkable. IMPRESSION: No acute intracranial abnormality. Electronically signed by: Nahed Valles On 04/19/2021 11:42:07 AM
--- NOTE | 2021-04-19 11:50 | REP ---
INDICATION: Evaluate for ascitis. TECHNIQUE: Four quadrant for ascites FINDINGS: A mild amount of fluid is seen within all 4 quadrants and around the hepatic surface. IMPRESSION: Ascites Accredited by the [employer] in General Ultrasound. <Electronically signed by Renzo Aragon > 04/19/21 114
--- NOTE | 2021-04-19 11:58 | REP ---
INDICATION: Possible infiltrate COMPARISON: 03/22/2021 and 08/30/2020 both also without intravenous contrast administration TECHNIQUE: Limited standard helical technique without the administration of intravenous contrast FINDINGS: There is no significant change in appearance of the mediastinum or pulmonary bari. No mass or adenopathy has developed. There is a left pleural effusion some of which is loculated and all of which for the most part appears unchanged. The imaged upper abdomen again shows ascites and a nodular hepatic surface seen in limited fashion but essentially unchanged from 03/22/2021. There is no significant change in appearance of the osseous structures. There are multiple left-sided rib fractures status quo. Evaluation of the lung kent shows detail limiting respiratory motion artifact throughout. There is no significant change in appearance of the lung kent. IMPRESSION: No significant change from the prior exam. Findings and limitations as described above. <Electronically signed by Renzo Aragon > 04/19/21 2295
[2021-04-19] MEDS ORDERED: LACTULOSE 20 GM/30 ML SYRUP UD PR ONE (12:00)
[2021-04-19] MEDS ORDERED: cefTRIAXone SOD 1 GM in D5W MINI-BAG PLUS 50 ML IV SCH (12:00)
[2021-04-19] MEDS: LACTULOSE 20 GM/30 ML SYRUP UD PO SCH ×2 (12:57→17:53)
[2021-04-19] MEDS: PANTOPRAZOLE 40MG VIAL (C9113 PER 1) IV SCH ×2 (12:58→22:21)
[2021-04-19] MEDS ORDERED: DOXYCYCLINE HYCLATE 100 MG in D5W MINI-BAG PLUS 100 ML IV SCH (13:00)
[2021-04-19 13:11] LABS: HEMOGLOBIN 9.6 g/dl (12.0-15.5)
[2021-04-19] MEDS: HumaLOG INSULIN (NovoLOG) PER UNIT SC SCH ×2 (15:25→18:00)
[2021-04-19 16:35] VITALS: BP 117/60
[2021-04-19 17:45] LABS: INR 1.22; PROTHROMBIN TIME 15.7 SECONDS (12.5-14.3)
[2021-04-19] MEDS: rifAXIMin 550 MG TAB (XIFAXAN) PO SCH ×2 (17:52→22:20)
[2021-04-19] MEDS ORDERED: OCTREOTIDE ACETATE 1,200 MCG in NS 238.8 ML IV SCH (18:00)
--- NOTE | 2021-04-19 18:28 | IPNPDOC ---
Text Note Date of Service The patient was seen on 04/19/21. NOTE Interval update: - Patient had reported dark / bharat colored stools - Will transfuse 1 unit PRBC; will increase IV fluid hydration - Discussed with Dr. Quezada; advised start Octreotide drip and transferring patient so EGD can be completed urgently - Contacted [facility] ([phone]) - No beds available - Contacted [facility] ( / [phone]) - No beds available - Contacted [facility] ([phone]) - No beds available - Contacted [facility] ([phone]); Discussed with Dr. Aragon - will see patient if transferred / Awaiting Hospitalist call back / Determine bed availability - Discussed with general surgery; will be available if patient becomes unstable / no transfer is possible; however can not perform banding - Called and updated patient's ; [employer] [employer] - informed that we are seeking transfer VS,Segun, I+O VS, Marinee, I+O Laboratory Tests 04/19/21 07:48 04/19/21 12:49 Vital Signs Date Time Temp Pulse Resp B/P (MAP) Pulse Ox O2 Delivery O2 Flow Rate FiO2 04/19/21 16:00 74 104/58 (73) 98 04/19/21 15:45 20 Room Air 04/19/21 07:02 97.9 JUANA NERI MD Apr 19, 2021 18:03
[2021-04-19 19:14] LABS: HEMATOCRIT 28.3 % (36.0-47.0)
--- NOTE | 2021-04-19 19:32 | DS.PDOC ---
Discharge Summary General Date of Admission Apr 19, 2021 at 10:27 Date of Discharge 04/19/2021 Discharge Summary PROCEDURES PERFORMED DURING STAY: [None]. 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 Patients is reported that she has been compliant with her lactulose and medications at home. They have been continuing with the fluid restriction. This morning patient was acting strange and brought her to the emergency room for further evaluation. Currently patient is only able to answer what. Patients has reported that she has always experienced dark-colored stools for the last 1 month. She was scheduled to receive an EGD and colonoscopy with Dr. Quezada on 04/22/2021. Patient was admitted to the hospital service for further evaluation and treatment. Dr. Quezada of gastroenterology was consulted for further EGD and colonoscopy. Case was discussed and plan was for EGD on 04/22. After patient was admitted she had a large dark/bharat colored stool. Discussed with Dr. Quezada. Advised to seek transfer for urgent EGD. - Contacted [facility] ([phone]) - No beds available - Contacted [facility] ( / [phone]) - No beds available - Contacted [facility] ([phone]) - No beds available - Contacted [facility] ([phone]); Discussed with Dr. Aragon (GI) / Dr. Yvette Coker - She has been accepted for transfer. - Awaiting callback from [facility] once bed is available likely tonight. HOSPITAL COURSE: Confusion / Acute metabolic encephalopathy - likely 2/2 acute hepatic encephalopathy - Hyper-ammonia; possibly 2/2 dehydration; possibly 2/2 GI bleed - Patient is very confused; only able to answer what - Patient appears to be moving all four extremities - Ammonia significantly elevated - CT head negative - Will trend H&H - c/w Lactulose / Rifaximin - c/w Protonix / Octreotide - Case discussed / consulted GI (Dr. Quezada) for EGD / Colonoscopy; was originally scheduled for it on 04/22/2021 as an outpatient - Discussion again with Dr. Quezada; advised transfer for urgent EGD - Patient has been accepted to [facility]; Case discussed with Dr. Aragon (GI) / Dr. Yvette Coker (Hospitalist) Questionable PNA - Patient remains afebrile and hemodynamically stable - No leukocytosis - CT chest noted below - c/w Ceftriaxone and Doxycycline (Day #1) AIDA on CKD3 - likely 2/2 pre-renal etiology - Patient is on diuretics at home - Clinically there is no evidence of fluid overload - Will hold nephrotoxic medications including diuretics - UA and urine electrolytes pending - c/w IV fluid hydration s/p Lactic acidosis - likely 2/2 dehydration - c/w gentle IV fluid hydration 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 - History of ascites - History of esophageal varices - Liver US with mild ascites - c/w Lactulose / Rifaxamin Thrombocytopenia 2/2 cirrhosis - No evidence of bleeding - Platelet count appears to be at baseline Hypotension (possibly 2/2 diuretics / cirrhosis) - c/w Midodrine (see above) IDDM2 - c/w ISS - Long acting insulin on hold Gout - Will hold Allopurinol Neuropathy - Will hold Gabapentin Obesity - BMI of 34.2 - Complicating medical care Hypothyroidism - Will hold Levothyroxine Vitamin D deficiency - Will hold Supplementation Chronic back pain - Will hold Tizanidine GERD - Will c/w Protonix IV / Octreotide DVT prophylaxis - Will c/w TEDs/Sequentials DISCHARGE MEDICATIONS: Please see below. ALLERGIES: Please see below. PHYSICAL EXAMINATION ON DISCHARGE: Vitals (See below) General: Lying in bed, appears comfortable, can follow commands, AAOx1 (person only) HEENT: NC, AT CVS: RRR, +S1S2 Lungs: Fair air entry b/l, no wheezing, rales or rhonchi Abdomen: Soft, ND, NT Extremities: Edema, - Calf tenderness LABORATORY DATA: Please see below. IMAGING: CXR 04/19: Moderate left lower lobe opacity suggesting effusion and infiltrate appear improved compared to prior examination. CT Chest 04/19: No significant change from the prior exam. Findings and limitations as described above. CT Head 04/19: No acute intracranial abnormality. Abdomen US 04/19: A mild amount of fluid is seen within all 4 quadrants and around the hepatic surface. ACTIVITY: [As tolerated]. DISCHARGE PLAN: Transfer to [facility] for GI consultation and likely EGD with banding Remain compliant with treatment plan and medications Return to the ER if you experience any problems DISPOSITION: Transfer to [facility] DISCHARGE CONDITION: [Stable]. TIME SPENT ON DISCHARGE: 35 minutes. Vital Signs/I&Os Vital Signs Date Time Temp Pulse Resp B/P (MAP) Pulse Ox O2 Delivery O2 Flow Rate FiO2 04/19/21 16:35 96.9 86 19 117/60 (79) 96 Room Air Laboratory Data Labs 24H Laboratory Tests 2 04/19/21 07:46: Procalcitonin 0.41 04/19/21 07:48: Immature Granulocyte % (Auto) 0.4, Neutrophils (%) (Auto) 65.6, Lymphocytes (%) (Auto) 19.0L, Monocytes (%) (Auto) 12.2H, Eosinophils (%) (Auto) 2.2, Basophils (%) (Auto) 0.6, Neutrophils # (Auto) 3.3, Lymphocytes # (Auto) 1.0L, Monocytes # (Auto) 0.6, Eosinophils # (Auto) 0.1, Basophils # (Auto) 0.0, Nucleated Red Blood Cells % (auto) 0.0, Anion Gap 8, Glomerular Filtration Rate 27.4L, Lactic Acid Level 2.4*H, Calcium Level 8.4L, Total Bilirubin 0.7, Direct Bilirubin 0.4H, Aspartate Amino Transf (AST/SGOT) 38H, Alanine Aminotransferase (ALT/SGPT) 13, Alkaline Phosphatase 324H, Ammonia 275H, Total Creatine Kinase 71, Creatine Kinase MB 1.6, Creatine Kinase MB Relative Index 2.25, Troponin I < 0.02, Total Protein 6.4, Albumin 2.4L, Albumin/Globulin Ratio 0.6L, Coronavirus (COVID- 19)(PCR) NEGATIVE, Influenza Type A (RT-PCR) NEGATIVE, Influenza Type B (RT-PCR) NEGATIVE, Respiratory Syncytial Virus (PCR) NEGATIVE 04/19/21 12:49: Lactic Acid Followup at 4 Hours 1.8 04/19/21 15:18: Bedside Glucose (Misc Panel) 337H 04/19/21 17:14: Prothrombin Time 15.7H, Prothromb Time International Ratio 1.22 CBC/BMP Laboratory Tests 04/19/21 07:48 04/19/21 12:49 FSBS Laboratory Tests Test 04/19/21 15:18 Range/Units Bedside Glucose (Misc Panel) 337 80-115 MG/DL Discharge Medications Scheduled Allopurinol (Allopurinol) 100 Mg Tab, 100 MG PO QHS, (Reported) Ascorbic Acid (Vitamin C) 1,000 Mg Tablet, 1,000 MG PO DAILY, (Reported) Cholecalciferol (Vitamin D3) (Vitamin D3) 1,000 Unit Tablet, 1,000 UNITS PO DAILY, (Reported) Gabapentin (Gabapentin) 300 Mg Capsule, 300 MG PO BID, (Reported) Insulin Human Lispro (Novolog) 100 U/Ml Inj, 1 DOSE SC ACHS, (Reported) PER SLIDING SCALE Lactulose (Lactulose) 10 Gm/15 Ml Solution, 30 ML PO TID, (Reported) Levothyroxine Sodium (Levothyroxine Sodium) 25 Mcg Tablet, 25 MCG PO DAILY, ( Reported) Magnesium Oxide (Magnesium Oxide) 400 Mg Tablet, 800 MG PO BID, (Reported) Midodrine HCl (Midodrine HCl) 10 Mg Tablet, 10 MG PO TID, (Reported) Omeprazole (Omeprazole) 40 Mg Capsule.dr, 40 MG PO DAILY, (Reported) Rifaximin (Xifaxan) 550 Mg Tablet, 550 MG PO BID, (Reported) Spironolactone (Spironolactone) 25 Mg Tablet, 25 MG PO BID, (Reported) Torsemide (Torsemide) 10 Mg Tablet, 20 MG PO DAILY, (Reported) Scheduled PRN Albuterol Sulfate (Ventolin Hfa) 18 Gm Hfa.aer.ad, 2 PUFF INH Q4H PRN for SHORTNESS OF BREATH, (Reported) Tizanidine HCl (Tizanidine HCl) 4 Mg Tablet, 4 MG PO TID PRN for MUSCLE SPASMS, (Reported) Allergies Coded Allergies: No Known Drug Allergies (Verified Allergy, Unknown, 01/19/21) JUANA NERI MD Apr 19, 2021 19:32
[2021-04-19 20:00] VITALS: BP_SYST 116; BP_SYST 130; BP_DIAS 53; BP_DIAS 61
[2021-04-19 20:01] VITALS: BP 116/53
[2021-04-19 20:16] VITALS: BP 108/55
[2021-04-19 21:00] VITALS: BP 112/52
[2021-04-19 21:51] VITALS: BP 116/56
--- NOTE | 2021-04-20 05:17 | ECGEPIP ---
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
[2021-04-20] MEDS ORDERED: MIDODRINE 5 MG TAB PO SCH (08:00)
== END 2021-04-19 23:03 | disposition short-term general hospital (02) | DRG 441 ==
LOC: M ED 07:01 → M ED INP 10:27 → ENRESERVTM 15:05 → M PCU 16:27
PROVIDERS: ADMIT Internal Medicine; ATTEND Internal Medicine
PROC: 30233N1 Transfusion of Nonautologous Red Blood Cells into Peripheral Vein, Percutaneous Approach (ICD-10-PCS; principal; 2021-04-19)
DX: K72.00 Acute and subacute hepatic failure without coma (principal); G93.41 Metabolic encephalopathy; N17.9 Acute kidney failure, unspecified; E87.2 Acidosis; E72.20 Disorder of urea cycle metabolism, unspecified; I85.10 Secondary esophageal varices without bleeding; K74.60 Unspecified cirrhosis of liver; D69.59 Other secondary thrombocytopenia; E11.22 Type 2 diabetes mellitus with diabetic chronic kidney disease; N18.30 Chronic kidney disease, stage 3 unspecified; M10.9 Gout, unspecified; E11.40 Type 2 diabetes mellitus with diabetic neuropathy, unspecified; E66.9 Obesity, unspecified; E55.9 Vitamin D deficiency, unspecified; K75.81 Nonalcoholic steatohepatitis (NASH); M54.9 Dorsalgia, unspecified; I95.2 Hypotension due to drugs; K21.9 Gastro-esophageal reflux disease without esophagitis; R19.5 Other fecal abnormalities; E03.9 Hypothyroidism, unspecified; Z90.49 Acquired absence of other specified parts of digestive tract; Z86.010 Personal history of colon polyps; Z98.49 Cataract extraction status, unspecified eye; Z87.891 Personal history of nicotine dependence; E86.0 Dehydration; Z68.34 Body mass index [BMI] 34.0-34.9, adult; Z20.822 Contact with and (suspected) exposure to COVID-19; Z79.4 Long term (current) use of insulin; Z79.899 Other long term (current) drug therapy; T50.2X5A Adverse effect of carbonic-anhydrase inhibitors, benzothiadiazides and other diuretics, initial encounter

== ENCOUNTER 2021-05-02 09:34 | Observation (INO) | payer OTHER ==
[~2021-05-02] VITALS: Ht 162.6 cm; Wt 85.7 kg
[~2021-05-02 09:34] MED LIST changes: +MIDO10TA PO; +OMEP40CA4 PO; -OMEP40CA97 PO
[2021-05-02] MEDS ORDERED: ALLO100T PO (09:51)
[2021-05-02] MEDS ORDERED: NOXI1TAB PO (09:51)
[2021-05-02] MEDS ORDERED: MAGN400T3 PO (09:51)
[2021-05-02] MEDS ORDERED: PANT40TA29 PO (09:51)
[2021-05-02] MEDS ORDERED: GABA-282 PO (09:51)
[2021-05-02] MEDS ORDERED: TORS10TA3 PO (09:51)
[2021-05-02] MEDS ORDERED: VITA250T4 PO (09:51)
[2021-05-02] MEDS ORDERED: SPIR-10 PO (09:51)
[2021-05-02 10:25] LABS: HEMATOCRIT 29.1 % (36.0-47.0); HEMOGLOBIN 9.3 g/dl (12.0-15.5); MEAN CORPUSCULAR HEMOGLOBIN 33.1 pg (27.0-33.0); MEAN CORPUSCULAR VOLUME 103.6 fl (80.0-96.0); PLATELET COUNT, AUTOMATED 145 10^3/uL (150-450); RED BLOOD COUNT 2.81 10^6/uL (4.00-5.40); WHITE BLOOD COUNT 5.8 10^3/uL (4.0-10.0)
[2021-05-02] MEDS ORDERED: NS 500 ML IV ONE (10:25)
--- NOTE | 2021-05-02 10:26 | REP ---
INDICATION: SEPSIS/SHOCK. COMPARISON: 04/19/2021 TECHNIQUE: Portable FINDINGS: The technique utilized in obtaining the radiograph has magnified the cardiac silhouette and accentuated the interstitial markings. The cardiomediastinal silhouette is unchanged. The heart is not enlarged. Left basilar opacities are stable when the technical differences between the examinations are taken into consideration. No acute patchy parenchymal opacities have developed. Multiple left-sided rib fractures are now identified. These were known by prior CT examination. IMPRESSION: Chronic changes as described above. <Electronically signed by Renzo Aragon > 05/02/21 1029
[2021-05-02] MEDS ORDERED: NS 1,000 ML IV ONE (10:30)
[2021-05-02 10:49] LABS: ALBUMIN 2.4 GM/DL (3.2-5.2); ALT/SGPT 16 U/L (12-78); AMYLASE 38 U/L (25-115); BILIRUBIN,DIRECT 0.3 MG/DL (0.0-0.2); BILIRUBIN,TOTAL 0.7 MG/DL (0.2-1.0); BLOOD UREA NITROGEN 35 MG/DL (7-18); C REACTIVE PROTEIN QUANTITATIV 1.23 MG/DL (0.00-0.30); CALCIUM LEVEL 8.2 MG/DL (8.8-10.2); CARBON DIOXIDE LEVEL 29 MEQ/L (21-32); CHLORIDE LEVEL 106 MEQ/L (98-107); CK-MB VALUE MASS 2.6 NG/ML (<3.6); CPK CREATINE PHOSPHOKINASE 56 U/L (26-192); CREATININE FOR GFR 1.49 MG/DL (0.55-1.30); GLOMERULAR FILTRATION RATE 37.6 (>45); GLUCOSE, FASTING 246 MG/DL (70-100); MB/CK RELATIVE INDEX 4.64 (< OR =4); POTASSIUM SERUM 3.7 MEQ/L (3.5-5.1); SODIUM LEVEL 139 MEQ/L (136-145); TOTAL PROTEIN 6.3 GM/DL (6.4-8.2); TROPONIN I < 0.02 NG/ML (< 0.10)
[2021-05-02 10:50] LABS: ATYPICAL LYMPH 2 % (0-5); BASOPHILS 1 % (0-1); EOSINOPHILS 2 % (0-3); LYMPHOCYTES 35 % (16-44); MONOCYTES 5 % (0-5); NEUTROPHILS 53 % (28-66); PLATELET ESTIMATE NORMAL (NORMAL)
[2021-05-02 10:51] LABS: ANISOCYTOSIS 2+; MICROCYTOSIS 2+
[2021-05-02 10:52] LABS: HYPOCHROMASIA 1+; STOMATOCYTES 1+; TEAR DROP CELLS 1+
[2021-05-02 11:33] LABS: RSV AMPLIFICATION NEGATIVE (NEGATIVE)
[2021-05-02] MEDS ORDERED: D31000TA2 PO (11:46)
[2021-05-02 12:19] LABS: APPEARANCE, URINE HAZY (CLEAR); BACTERIA, URINE AUTO 1+ (NEGATIVE); BILIRUBIN, URINE AUTO NEGATIVE (NEGATIVE); BLOOD, URINE BLOOD NEGATIVE (NEGATIVE); COLOR, URINE YELLOW (YELLOW); GLUCOSE, URINE (UA) AUTO NEGATIVE (NEGATIVE); KETONE, URINE AUTO NEGATIVE (NEGATIVE); LEUKOCYTE ESTERASE, URINE AUTO 1+ (NEGATIVE); MUCUS, URINE SMALL (NEGATIVE); NITRITE, URINE AUTO NEGATIVE (NEGATIVE); PROTEIN, URINE AUTO NEGATIVE (NEGATIVE); RBC, URINE AUTO 4 /HPF (0-3); SPECIFIC GRAVITY URINE AUTO 1.005 (1.002-1.035); SQUAMOUS EPITHELIAL CELL UR AU 6 /HPF (0-6); UROBILINOGEN, URINE AUTO 0.2 mg/dL (0.0-2.0); WBC, URINE AUTO 5 /HPF (0-3)
[2021-05-02] MEDS ORDERED: GLUCAGON INJ 1MG VIAL SC PRN (12:55)
[2021-05-02] MEDS ORDERED: DEXTROSE 50% 50 ML SYRINGE IV PRN (12:55)
[2021-05-02] MEDS ORDERED: GLUCOSE 4GM CHEW TABLET PO PRN (12:55)
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
[2021-05-02 14:00] VITALS: BP 100/50
--- NOTE | 2021-05-02 14:33 | ECGEPIP ---
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
[2021-05-02] MEDS: MIDODRINE 5 MG TAB PO SCH (16:39)
[2021-05-02] MEDS: LACTULOSE 20 GM/30 ML SYRUP UD PO SCH ×2 (16:39→22:03)
[2021-05-02] MEDS: HumaLOG INSULIN (NovoLOG) PER UNIT SC SCH (16:39)
[2021-05-02 22:00] VITALS: BP 109/59
[2021-05-02] MEDS: rifAXIMin 550 MG TAB (XIFAXAN) PO SCH (22:03)
[2021-05-02] MEDS: GABAPENTIN 100 MG CAP PO SCH (22:03)
[2021-05-02] MEDS: MAGNESIUM OXIDE 400MG TAB (MAG-OX) PO SCH (22:03)
[2021-05-02 22:06] VITALS: BP_SYST 102; BP_SYST 108; BP_SYST 112; BP_DIAS 44; BP_DIAS 51; BP_DIAS 80
[2021-05-03] MEDS: LEVOTHYROXINE 25MCG TABLET (0.025MG) PO SCH (05:49)
[2021-05-03 05:51] VITALS: BP_SYST 115; BP_SYST 96; BP_DIAS 45; BP_DIAS 51; BP_DIAS 80
[2021-05-03 06:00] VITALS: BP 115/51
[2021-05-03 06:32] LABS: HEMATOCRIT 27.6 % (36.0-47.0); HEMOGLOBIN 8.9 g/dl (12.0-15.5); MEAN CORPUSCULAR HEMOGLOBIN 33.1 pg (27.0-33.0); MEAN CORPUSCULAR HGB CONC 32.2 g/dl (32.0-36.5); MEAN CORPUSCULAR VOLUME 102.6 fl (80.0-96.0); PLATELET COUNT, AUTOMATED 138 10^3/uL (150-450); RED BLOOD COUNT 2.69 10^6/uL (4.00-5.40); WHITE BLOOD COUNT 6.1 10^3/uL (4.0-10.0)
[2021-05-03 06:59] LABS: CALCIUM LEVEL 7.7 MG/DL (8.8-10.2); CREATININE FOR GFR 1.43 MG/DL (0.55-1.30); GLOMERULAR FILTRATION RATE 39.5 (>45)
[2021-05-03 07:39] LABS: PERCENT SATURATION 19.1 % (13.2-45.0)
[2021-05-03 07:47] LABS: ATYPICAL LYMPH 3 % (0-5); BASOPHILS 2 % (0-1); EOSINOPHILS 2 % (0-3); LYMPHOCYTES 26 % (16-44); MONOCYTES 3 % (0-5); NEUTROPHILS 62 % (28-66)
[2021-05-03 07:48] LABS: PLATELET ESTIMATE DECREASED (NORMAL)
[2021-05-03 07:49] LABS: ANISOCYTOSIS 1+; HYPOCHROMASIA 1+; POIKILOCYTOSIS 1+
[2021-05-03] MEDS: LACTULOSE 20 GM/30 ML SYRUP UD PO SCH ×3 (08:23→21:15)
[2021-05-03] MEDS: allopurinoL 100 MG TAB PO SCH (08:23)
[2021-05-03] MEDS: HumaLOG INSULIN (NovoLOG) PER UNIT SC SCH ×3 (08:23→17:11)
[2021-05-03] MEDS: MIDODRINE 5 MG TAB PO SCH ×3 (08:23→17:11)
[2021-05-03] MEDS: PANTOPRAZOLE 40MG TAB (PROTONIX) PO SCH (08:23)
[2021-05-03] MEDS: MAGNESIUM OXIDE 400MG TAB (MAG-OX) PO SCH ×2 (08:24→21:15)
[2021-05-03] MEDS: TORSEMIDE 10 MG TABLET PO SCH (08:24)
[2021-05-03] MEDS: SPIRONOLACTONE 25 MG TAB PO SCH (08:24)
[2021-05-03] MEDS: GABAPENTIN 100 MG CAP PO SCH ×2 (08:25→21:14)
[2021-05-03] MEDS: rifAXIMin 550 MG TAB (XIFAXAN) PO SCH ×2 (08:25→21:14)
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
[2021-05-03] MEDS ORDERED: FIORICET TAB PO ONE (13:00)
[2021-05-03] MEDS: LEVEMIR (INSULIN DETEMIR) 1 UNITS/0.01ML SC SCH (13:10)
[2021-05-03 14:00] VITALS: BP 135/63
[2021-05-03 17:12] VITALS: BP_SYST 119; BP_SYST 136; BP_SYST 137; BP_DIAS 62; BP_DIAS 65
[2021-05-03 21:15] VITALS: BP 146/69
[2021-05-04 05:55] VITALS: BP 124/60
[2021-05-04] MEDS: LEVOTHYROXINE 25MCG TABLET (0.025MG) PO SCH (05:58)
[2021-05-04 07:00] VITALS: BP_SYST 102; BP_SYST 124; BP_DIAS 48; BP_DIAS 59; BP_DIAS 60
[2021-05-04 07:37] LABS: HEMATOCRIT 26.9 % (36.0-47.0); HEMOGLOBIN 8.6 g/dl (12.0-15.5); MEAN CORPUSCULAR VOLUME 103.1 fl (80.0-96.0); PLATELET COUNT, AUTOMATED 153 10^3/uL (150-450); RED BLOOD COUNT 2.61 10^6/uL (4.00-5.40); WHITE BLOOD COUNT 6.4 10^3/uL (4.0-10.0)
[2021-05-04 08:02] LABS: CALCIUM LEVEL 7.8 MG/DL (8.8-10.2); CREATININE FOR GFR 1.25 MG/DL (0.55-1.30); GLOMERULAR FILTRATION RATE 46.1 (>45); POTASSIUM SERUM 3.9 MEQ/L (3.5-5.1)
[2021-05-04] MEDS: LEVEMIR (INSULIN DETEMIR) 1 UNITS/0.01ML SC SCH (08:13)
[2021-05-04] MEDS: LACTULOSE 20 GM/30 ML SYRUP UD PO SCH (08:13)
[2021-05-04] MEDS: GABAPENTIN 100 MG CAP PO SCH (08:14)
[2021-05-04] MEDS: MIDODRINE 5 MG TAB PO SCH (08:14)
[2021-05-04] MEDS: SPIRONOLACTONE 25 MG TAB PO SCH (08:14)
[2021-05-04] MEDS: rifAXIMin 550 MG TAB (XIFAXAN) PO SCH (08:14)
[2021-05-04] MEDS: MAGNESIUM OXIDE 400MG TAB (MAG-OX) PO SCH (08:14)
[2021-05-04] MEDS: HumaLOG INSULIN (NovoLOG) PER UNIT SC SCH (08:14)
[2021-05-04] MEDS: allopurinoL 100 MG TAB PO SCH (08:14)
[2021-05-04] MEDS: TORSEMIDE 10 MG TABLET PO SCH (08:15)
[2021-05-04] MEDS: PANTOPRAZOLE 40MG TAB (PROTONIX) PO SCH (08:15)
[2021-05-04 08:23] LABS: EOSINOPHILS 4 % (0-3); LYMPHOCYTES 28 % (16-44); MONOCYTES 6 % (0-5); NEUTROPHILS 62 % (28-66); PLATELET ESTIMATE NORMAL (NORMAL)
[2021-05-04] MEDS ORDERED: TORS10TA3 PO (10:24)
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
== END 2021-05-04 12:50 | disposition home health service (06) ==
LOC: M ED 09:34 → M ED INP 09:35 → ENRESERV 13:11 → M MS5PR 15:09
PROVIDERS: ADMIT Internal Medicine Nephrology; ATTEND Internal Medicine Nephrology
DX: I95.1 Orthostatic hypotension (principal); K75.81 Nonalcoholic steatohepatitis (NASH); R18.8 Other ascites; I85.00 Esophageal varices without bleeding; D69.6 Thrombocytopenia, unspecified; K72.90 Hepatic failure, unspecified without coma; E72.20 Disorder of urea cycle metabolism, unspecified; R82.79 Other abnormal findings on microbiological examination of urine; B95.7 Other staphylococcus as the cause of diseases classified elsewhere; R51.9 Headache, unspecified; R11.0 Nausea; D50.0 Iron deficiency anemia secondary to blood loss (chronic); Z87.19 Personal history of other diseases of the digestive system; E11.40 Type 2 diabetes mellitus with diabetic neuropathy, unspecified; E66.9 Obesity, unspecified; Z68.31 Body mass index [BMI] 31.0-31.9, adult; L40.50 Arthropathic psoriasis, unspecified; E83.42 Hypomagnesemia; N18.30 Chronic kidney disease, stage 3 unspecified; N17.9 Acute kidney failure, unspecified; E86.0 Dehydration; E78.5 Hyperlipidemia, unspecified; E03.9 Hypothyroidism, unspecified; K21.9 Gastro-esophageal reflux disease without esophagitis
CPT/HCPCS: 36415; 71045; 80048; 80076; 81001; 82140; 82150; 82550; 82553; 82728; 83550; 83605; 84484; 85025; 86140; 86850; 86900; 86901; 87040; 87088; 87186; 87631; 93005; 93041; 94760; 96360; 96361; 99285; G0378

== ENCOUNTER 2021-05-08 08:46 | Emergency (ER) | payer OTHER ==
[~2021-05-08] VITALS: Ht 162.6 cm; Wt 79.5 kg
[~2021-05-08 08:46] MED LIST changes: +NOXI1TAB PO; +VITA250T4 PO
[2021-05-08 10:21] LABS: HEMATOCRIT 25.5 % (36.0-47.0); MEAN CORPUSCULAR HEMOGLOBIN 33.1 pg (27.0-33.0); MEAN CORPUSCULAR HGB CONC 31.4 g/dl (32.0-36.5); MEAN CORPUSCULAR VOLUME 105.4 fl (80.0-96.0); PLATELET COUNT, AUTOMATED 140 10^3/uL (150-450); RED BLOOD COUNT 2.42 10^6/uL (4.00-5.40); WHITE BLOOD COUNT 5.8 10^3/uL (4.0-10.0)
[2021-05-08] MEDS ORDERED: MIDODRINE 5 MG TAB PO ONE (10:25)
[2021-05-08 10:58] LABS: ALBUMIN 2.2 GM/DL (3.2-5.2); BILIRUBIN,DIRECT 0.3 MG/DL (0.0-0.2); BILIRUBIN,TOTAL 0.8 MG/DL (0.2-1.0); CALCIUM LEVEL 8.3 MG/DL (8.8-10.2); CREATININE FOR GFR 1.88 MG/DL (0.55-1.30); GLOMERULAR FILTRATION RATE 28.8 (>45); POTASSIUM SERUM 4.9 MEQ/L (3.5-5.1); TOTAL PROTEIN 5.8 GM/DL (6.4-8.2)
[2021-05-08 10:59] LABS: BASOPHILS 1 % (0-1); EOSINOPHILS 3 % (0-3); LYMPHOCYTES 18 % (16-44); MONOCYTES 8 % (0-5); NEUTROPHILS 69 % (28-66)
[2021-05-08 11:00] LABS: PLATELET CLUMPS SMALL AMT
[2021-05-08 11:01] LABS: PLATELET ESTIMATE DECREASED (NORMAL)
[2021-05-08 11:04] LABS: ANISOCYTOSIS 2+
[2021-05-08] MEDS ORDERED: NADO20TA (11:55)
[2021-05-08] MEDS ORDERED: MIDO10TA PO (12:05)
[2021-05-08 12:20] VITALS: BP 96/52
== END 2021-05-08 12:27 | disposition home or self-care (01) ==
LOC: M ED 08:46
DX: I95.9 Hypotension, unspecified (principal); E11.9 Type 2 diabetes mellitus without complications; I12.9 Hypertensive chronic kidney disease with stage 1 through stage 4 chronic kidney disease, or unspecified chronic kidney disease; N18.30 Chronic kidney disease, stage 3 unspecified; E78.5 Hyperlipidemia, unspecified; Z79.899 Other long term (current) drug therapy; Z79.84 Long term (current) use of oral hypoglycemic drugs; Z79.890 Hormone replacement therapy

== ENCOUNTER 2021-05-16 09:12 | Inpatient (IN) | payer OTHER ==
[~2021-05-16] VITALS: Ht 162.6 cm; Wt 84.4 kg
[2021-05-16] VITALS (13 sets, daily range): BP systolic 100–137; BP diastolic 51–88
[~2021-05-16 09:12] MED LIST changes: +NADO20TA
[2021-05-16] MEDS ORDERED: TORS10TA3 PO ×2 (09:25→11:54)
[2021-05-16 10:14] LABS: HEMATOCRIT 21.7 % (36.0-47.0); MEAN CORPUSCULAR HEMOGLOBIN 33.8 pg (27.0-33.0); MEAN CORPUSCULAR HGB CONC 32.3 g/dl (32.0-36.5); MEAN CORPUSCULAR VOLUME 104.8 fl (80.0-96.0); PLATELET COUNT, AUTOMATED 131 10^3/uL (150-450); RED BLOOD COUNT 2.07 10^6/uL (4.00-5.40); WHITE BLOOD COUNT 5.2 10^3/uL (4.0-10.0)
[2021-05-16 10:25] LABS: INR 1.3; PARTIAL THROMBOPLASTIN TIME 34.4 SECONDS (24.2-38.5); PROTHROMBIN TIME 16.5 SECONDS (12.5-14.3)
--- NOTE | 2021-05-16 10:36 | REP ---
INDICATION: altered ms COMPARISON: 05/02/2021 TECHNIQUE: Portable AP view of the chest FINDINGS: The mediastinum and cardiac silhouette are stable and within normal limits for portable technique. The lung kent demonstrate moderate left pleural effusion and left lower lobe atelectasis. Subtle right basilar atelectasis and small pleural reaction posterior and below the level of diaphragm cannot be excluded. No pneumothorax. Underlying chronic interstitial changes and old left rib fractures again noted. IMPRESSION: Moderate left pleural effusion and left lower lobe atelectasis. Possible minimal right pleural effusion and atelectasis cannot be excluded as well. <Electronically signed by Michael Vincent > 05/16/21 [id number]
[2021-05-16 10:45] LABS: EOSINOPHILS 2 % (0-3); LYMPHOCYTES 20 % (16-44); MONOCYTES 11 % (0-5); NEUTROPHILS 67 % (28-66)
[2021-05-16 10:48] LABS: ACETAMINOPHEN LEVEL < 2.0 UG/ML (10.0-30.0); ETHYL ALCOHOL (ETHANOL) < 0.003 % (0.000-0.010); SALICYLATE LEVEL < 1.7 MG/DL (5.0-30.0)
[2021-05-16 10:54] LABS: OVALOCYTES 1+; POLYCHROMASIA 1+
[2021-05-16 10:55] LABS: SCHISTOCYTES 1+
[2021-05-16 10:56] LABS: PLATELET ESTIMATE DECREASED (NORMAL)
[2021-05-16 11:11] LABS: ALBUMIN 2.2 GM/DL (3.2-5.2); ALT/SGPT 13 U/L (12-78); BILIRUBIN,DIRECT 0.4 MG/DL (0.0-0.2); BILIRUBIN,TOTAL 0.8 MG/DL (0.2-1.0); BLOOD UREA NITROGEN 53 MG/DL (7-18); CALCIUM LEVEL 8.5 MG/DL (8.8-10.2); CARBON DIOXIDE LEVEL 29 MEQ/L (21-32); CHLORIDE LEVEL 99 MEQ/L (98-107); CK-MB VALUE MASS 2.8 NG/ML (<3.6); CPK CREATINE PHOSPHOKINASE 78 U/L (26-192); CREATININE FOR GFR 1.97 MG/DL (0.55-1.30); GLOMERULAR FILTRATION RATE 27.3 (>45); GLUCOSE, FASTING 323 MG/DL (70-100); MB/CK RELATIVE INDEX 3.59 (< OR =4); POTASSIUM SERUM 4.7 MEQ/L (3.5-5.1); SODIUM LEVEL 137 MEQ/L (136-145); TOTAL PROTEIN 6.1 GM/DL (6.4-8.2); TROPONIN I < 0.02 NG/ML (< 0.10)
[2021-05-16] MEDS ORDERED: MIDODRINE 5 MG TAB PO ONE (11:21)
[2021-05-16 11:40] LABS: RSV AMPLIFICATION NEGATIVE (NEGATIVE)
[2021-05-16] MEDS ORDERED: LACTULOSE 20 GM/30 ML SYRUP UD PO ONE (11:50)
[2021-05-16] MEDS ORDERED: MIDO10TA PO (11:54)
[2021-05-16] MEDS: MIDODRINE 5 MG TAB PO SCH ×2 (16:00→21:00)
[2021-05-16] MEDS: MAGNESIUM OXIDE 400MG TAB (MAG-OX) PO SCH ×2 (16:00→21:00)
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
[2021-05-16] MEDS: PANTOPRAZOLE 40MG VIAL (C9113 PER 1) IV SCH ×2 (16:31→21:37)
[2021-05-16] MEDS: cefTRIAXone SOD 1 GM in D5W MINI-BAG PLUS 50 ML IV SCH (16:32)
[2021-05-16] MEDS: LACTULOSE 20 GM/30 ML SYRUP UD PO SCH ×2 (16:32→21:37)
[2021-05-16] MEDS: ASCORBIC ACID 250 MG TAB PO SCH (16:52)
[2021-05-16] MEDS: allopurinoL 100 MG TAB PO SCH (16:52)
[2021-05-16] MEDS: VITAMIN D 1,000 INTERNATIONAL UNITS TABLET PO SCH (16:52)
[2021-05-16] MEDS: SUCRALFATE SUSP 1GM/10ML UD PO SCH ×2 (17:30→21:37)
--- NOTE | 2021-05-16 19:15 | ECGEPIP ---
[facility] - ED Test Date: 2021-05-16 Pat Name: AUDREY VILLALOBOS Department: Room: - Gender: Female [employer] Att[employer]: MAIKOL : 1955 Requested By: Heidy Liao Order Number: [id number] Reading MD: Heidy Liao Measurements Intervals [place] Rate: 69 P: 49 W[place]: 148 QRS: -30 QRSD: 116 T: 69 QT: 460 QTc: 492 Interpretive Statements Normal sinus rhythm Left axis deviation Minimal voltage criteria for LVH, may be normal variant ( Bhaskar product ) Prolonged QT Nonspecific ST T wave changes Prolonged QTc cw 05/02/[address] T wave changes Electronically Signed on 05-16-2021 19:15:20 EDT by Heidy Liao
[2021-05-16] MEDS: GABAPENTIN 300 MG CAP PO SCH (21:00)
[2021-05-16] MEDS: rifAXIMin 550 MG TAB (XIFAXAN) PO SCH (21:00)
[2021-05-16 21:16] LABS: HEMATOCRIT 28.4 % (36.0-47.0); MEAN CORPUSCULAR HEMOGLOBIN 32.9 pg (27.0-33.0); MEAN CORPUSCULAR HGB CONC 33.1 g/dl (32.0-36.5); MEAN CORPUSCULAR VOLUME 99.3 fl (80.0-96.0); PLATELET COUNT, AUTOMATED 154 10^3/uL (150-450); RED BLOOD COUNT 2.86 10^6/uL (4.00-5.40); WHITE BLOOD COUNT 6.4 10^3/uL (4.0-10.0)
[2021-05-16 21:21] LABS: HEMOGLOBIN 9.4 g/dl (12.0-15.5)
[2021-05-17] VITALS (8 sets, daily range): BP systolic 119–164; BP diastolic 58–74
[2021-05-17 05:37] LABS: HEMATOCRIT 26.8 % (36.0-47.0); HEMOGLOBIN 8.9 g/dl (12.0-15.5); MEAN CORPUSCULAR HEMOGLOBIN 32.6 pg (27.0-33.0); MEAN CORPUSCULAR HGB CONC 33.2 g/dl (32.0-36.5); MEAN CORPUSCULAR VOLUME 98.2 fl (80.0-96.0); PLATELET COUNT, AUTOMATED 168 10^3/uL (150-450); RED BLOOD COUNT 2.73 10^6/uL (4.00-5.40)
[2021-05-17] MEDS: LEVOTHYROXINE 25MCG TABLET (0.025MG) PO SCH (06:00)
[2021-05-17 06:07] LABS: CALCIUM LEVEL 8.4 MG/DL (8.8-10.2); CREATININE FOR GFR 1.63 MG/DL (0.55-1.30); GLOMERULAR FILTRATION RATE 33.9 (>45); POTASSIUM SERUM 4.5 MEQ/L (3.5-5.1)
[2021-05-17] MEDS ORDERED: LACTULOSE 20 GM/30 ML SYRUP UD PR ONE ×2 (06:20→11:00)
[2021-05-17] MEDS: SUCRALFATE SUSP 1GM/10ML UD PO SCH ×5 (08:47→21:36)
--- NOTE | 2021-05-17 08:49 | REPVR ---
PROCEDURE INFORMATION: Exam: CT Head Without Contrast Exam date and time: 05/17/2021 7:59 AM Age: 65 years old Clinical indication: Altered mental status/memory loss; Additional info: AMS TECHNIQUE: Imaging protocol: Computed tomography of the head without contrast. Radiation optimization: All CT scans at this facility use at least one of these dose optimization techniques: automated exposure control; mA and/or kV adjustment per patient size (includes targeted exams where dose is matched to clinical indication); or iterative reconstruction. COMPARISON: CT Head without contrast 04/19/2021 11:16 AM FINDINGS: Brain: No acute intracranial hemorrhage. No midline shift. No mass effect. Cerebral ventricles: No ventriculomegaly. Paranasal sinuses: Visualized sinuses are unremarkable. No fluid levels. Mastoid air cells: Visualized mastoid air cells are well aerated. Vasculature: Intracranial vascular calcification. Bones/joints: Unremarkable. No acute fracture. Soft tissues: Extra-axial small calcification bilaterally are similar. Other findings: Hemispheric volume loss. IMPRESSION: No acute intracranial process. Electronically signed by: Kristin Ott On 05/17/2021 08:48:48 AM
[2021-05-17 08:56] LABS: ABG BASE EXCESS 5.3 (-2.0-2.0); ABG HCO3 28.4 MEQ/L (22.0-26.0); ABG O2 SATURATION 98.1 % (95.0-99.0); ABG PARTIAL PRESSURE CO2 36.1 mmHg (35.0-45.0); ABG PARTIAL PRESSURE O2 108.6 mmHg (75.0-100.0); ABG STANDARD HCO3 29.2 MEQ/L (22.0-26.0); ABG TOTAL CO2 29.5 MEQ/L (23.0-31.0); ABG pH (ARTERIAL) 7.514 UNITS (7.350-7.450)
[2021-05-17] MEDS: NS 1,000 ML IV SCH ×2 (08:57→21:35)
[2021-05-17] MEDS: MAGNESIUM OXIDE 400MG TAB (MAG-OX) PO SCH ×3 (09:00→20:45)
[2021-05-17] MEDS: LACTULOSE 20 GM/30 ML SYRUP UD PO SCH ×4 (09:00→21:36)
[2021-05-17] MEDS: MIDODRINE 5 MG TAB PO SCH ×3 (09:00→20:45)
[2021-05-17] MEDS ORDERED: PANTOPRAZOLE 40MG VIAL (C9113 PER 1) IV SCH (09:00)
[2021-05-17] MEDS: GABAPENTIN 300 MG CAP PO SCH ×2 (09:00→20:45)
[2021-05-17] MEDS: rifAXIMin 550 MG TAB (XIFAXAN) PO SCH ×2 (09:00→20:45)
[2021-05-17] MEDS: allopurinoL 100 MG TAB PO SCH (09:00)
[2021-05-17] MEDS: ASCORBIC ACID 250 MG TAB PO SCH (09:00)
[2021-05-17] MEDS: VITAMIN D 1,000 INTERNATIONAL UNITS TABLET PO SCH (09:00)
--- NOTE | 2021-05-17 10:16 | IPNPDOC ---
Subjective Date Seen The patient was seen on 05/17/21. Subjective Chief Complaint/HPI Mrs. Ngo is a 65 year old female with CAMPBELL cirrhosis who presents with AMS this morning. 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 This morning, she would open her eyes but would not speak. Ammonia increased to 197. Repeat CT head negative. Objective Physical Examination General Exam: Negative: Alert Chest Exam: Positive: Clear to auscultation Heart Exam: Positive: Tachycardic, Regular Rhythm Abdomen Exam: Positive: Normal bowel sounds, Soft Extremity Exam: Positive: Edema (bilateral pitting edema) Psych Exam: Positive: Other (confused); Negative: Mental status NL Assessment /Plan Assessment Mrs. Ngo is a 65 year old female with CAMPBELL cirrhosis who presents with AMS this morning. Patient found to have hepatic encephalopathy, anemia, and AIDA. Will need to give ID lactulose due to inability to take orals. Giving gentle IVF due to NPO status. Monitor H&H Plan/VTE VTE Prophylaxis Ordered?: Yes Plan 1. Hepatic encephalopathy -Ammonia elevated -Lactulose per rectal 2. Acute anemia -Guiac negative -No melena or hematochezia -No hematemesis -Ordered for occult stool -NPO and IV protonix -Transfused 2u pRBC -Ceftriaxone for SBP ppx in case there is an UGIB -Spoke with General surgery, no need for urgent scope or transfer at this time -Monitor H&H 3. AIDA -Baseline creatinine around 1.3 -Creatinine elevated at 1.9 on admission -Hold diuretic -IVF 4. Hypothyroidism -Continue Levothyroxine 5. Hypotension -Secondary to cirrhosis/portal hypertension -Continue midodrine 6. DVT ppx -No chemical ppx due to anemia -SCD and TEDs Disposition: Pending clinical improvement VS, I&O, 24H, Fishbone Vital Signs/I&O Vital Signs Date Time Temp Pulse Resp B/P (MAP) Pulse Ox O2 Delivery O2 Flow Rate FiO2 05/17/21 08:00 98.3 117 18 148/65 (92) 96 Room Air I&O- Last 24 Hours up to 6 AM 05/17/21 06:00 Intake Total 800 ml Output Total 0 ml Balance 800 ml Laboratory Data 24H LABS Laboratory Tests 2 05/16/21 10:45: Coronavirus (COVID-19)(PCR) NEGATIVE, Influenza Type A (RT-PCR) NEGATIVE, Influenza Type B (RT-PCR) NEGATIVE, Respiratory Syncytial Virus (PCR) NEGATIVE 05/16/21 20:35: Bedside Glucose (Misc Panel) 255H 05/16/21 21:00: Nucleated Red Blood Cells % (auto) 0.0 05/17/21 04:36: Bedside Glucose (Misc Panel) 223H 05/17/21 05:14: Nucleated Red Blood Cells % (auto) 0.0, Anion Gap 6L, Glomerular Filtration Rate 33.9L, Calcium Level 8.4L, Ammonia 197H 05/17/21 07:39: Blood Gas Bicarbonate Standard 29.2H, Arterial Blood pH 7.514H, Arterial Blood Partial Pressure CO2 36.1, Arterial Blood Partial Pressure O2 108.6H, Arterial Blood Total CO2 29.5, Arterial Blood HCO3 28.4H, Arterial Blood Base Excess 5.3H, Arterial Blood Oxygen Saturation 98.1 CBC/BMP Laboratory Tests 05/16/21 21:00 05/17/21 05:14 Microbiology Microbiology 05/16/21 Blood Culture, Received Pending 05/16/21 Blood Culture - Preliminary, Resulted No growth after 24 hours . All specim... SUSANNAH HUYNH DO May 17, 2021 10:16
[2021-05-17] MEDS: PANTOPRAZOLE 40MG VIAL (C9113 PER 1) IV SCH ×2 (10:30→21:36)
[2021-05-17 13:20] LABS: HEMATOCRIT 27.5 % (36.0-47.0); MEAN CORPUSCULAR HGB CONC 32.7 g/dl (32.0-36.5); MEAN CORPUSCULAR VOLUME 100.7 fl (80.0-96.0); PLATELET COUNT, AUTOMATED 174 10^3/uL (150-450); RED BLOOD COUNT 2.73 10^6/uL (4.00-5.40); WHITE BLOOD COUNT 6.8 10^3/uL (4.0-10.0)
[2021-05-17] MEDS ORDERED: OCTREOTIDE ACETATE 100MCG/ML VIAL (J2354 PER 25MCG) IV ONE (14:45)
[2021-05-17] MEDS ORDERED: PANT40IN4 IV (15:31)
[2021-05-17] MEDS ORDERED: NS10IV IV (15:31)
[2021-05-17] MEDS ORDERED: CEFTINJ IV (15:31)
[2021-05-17] MEDS ORDERED: OCTR1000 IV (15:31)
[2021-05-17] MEDS: cefTRIAXone SOD 1 GM in D5W MINI-BAG PLUS 50 ML IV SCH (16:06)
--- NOTE | 2021-05-17 16:17 | DS.PDOC ---
Discharge Summary General Date of Admission May 16, 2021 at 13:45 Date of Discharge May 17, 2021 Discharge Summary PROCEDURES PERFORMED DURING STAY: None ADMITTING DIAGNOSES: 1. Hepatic encephalopathy 2. Acute anemia 3. AIDA 4. Hypothyroidism 5. Hypotension DISCHARGE DIAGNOSES: 1. Hepatic encephalopathy 2. Upper GI Bleed 3. Acute anemia 2/2 Upper GI Bleed 4. AIDA 5. Hypothyroidism 6. Hypotension COMPLICATIONS/CHIEF COMPLAINT: Hepatic Encephalopathy Hyperammonemia. HISTORY OF PRESENT ILLNESS: Mrs. Ngo is a 65 year old female with CAMPBELL cirrhosis who presents with AMS this morning. She is here today with her who presented most of the story. Patient was doing well, but when she woke up this morning, she was confused and was not acting like her normal self. She was brought to the ED for evaluation. Ammonia was elevated at 142 and hemoglobin was low at 7. Patient also has AIDA with an elevated creatinine and BUN. Guaiac was negative. The tells me that the patient is compliant with her lactulose. She has been having about 3 bowel movements a day, but no melena or hematochezia. Patient had nausea yesterday and vomited once, but no blood seen. Of note, patient was transferred to [facility] in April 2020 for UGIB where she was found to have gastric varices. I reached out to Dr. Hardin and discussed the case. Patient does not need urgent scope or transfer. Patient will be admitted for hepatic encephalopathy and anemia. HOSPITAL COURSE: Patient was admitted with clear liquid diet, Carafate, IV Protonix, Ceftriaxone, and lactulose. Overnight, patient became more altered and was not able to take orals. She won't speak, but she will move her eyes and look around. CT head was negative. Repeat ammonia was increased from 142 to 197. It was not safe to try to have patient swallow, and NV lactulose was given. Patient did have bowel movements, but they were tarry black stool. Later in the morning, there was clots pasted with the tarry back stool. Octreotide was started. Spoke with our general surgeon who recommended transfer to a facility that would be able to handle variceal bleeding given patient's history of gastric and esophageal varices. [facility], [facility], [facility], and [facility] did not have bed availability or cap ability to treat patient. [facility] did not have bed availability today. I reached out to [facility]. Dr. Hansen is the accepting physician. Patient will be transferred to [facility]. Patient's was contacted and updated. Otherwise, repeat CBC demonstrates hemoglobin of 9. Repeat ammonia is 84. When I went to see patient, they were changing her. She is still having melena with dark red clots. Vital signs stable. Later in the evening. Hemoglobin dropped to 8.6. I reached out to [facility] in [place], [place] as it was closer than [place]. No bed availability either. Giving another unit of blood prior to transfer to [facility]. DISCHARGE MEDICATIONS: Please see below. ALLERGIES: Please see below. PHYSICAL EXAMINATION ON DISCHARGE: VITAL SIGNS: Please see below. GENERAL: Lethargic NECK: Supple CARDIOVASCULAR EXAMINATION: Tachycardic, but regular RESPIRATORY EXAMINATION: Lungs clear to auscultation bilaterally ABDOMINAL EXAMINATION: Soft, normal bowel sounds EXTREMITIES: Mild bilateral pitting edema NEUROLOGICAL EXAMINATION: Moves eyes around, but nonverbal and not following commands PSYCHIATRIC EXAMINATION: Confused LABORATORY DATA: Please see below. IMAGING: Radiologist interpretation CT head IMPRESSION: No acute intracranial process. PROGNOSIS: Guarded ACTIVITY: Bed rest DIET: NPO DISCHARGE PLAN: Transfer to [facility] for higher level of care DISPOSITION: Transfer to [facility] for higher level of care DISCHARGE INSTRUCTIONS: 1. Continue Ceftriaxone, Octreotide, and IVF DISCHARGE CONDITION: Stable Total time spent on discharge planning, discharge summary, and medication reconciliation: 55 minutes Vital Signs/I&Os Vital Signs Date Time Temp Pulse Resp B/P (MAP) Pulse Ox O2 Delivery O2 Flow Rate FiO2 05/17/21 12:00 98.5 117 18 164/74 (104) 97 Room Air I&O- Last 24 Hours up to 6 AM 05/17/21 06:00 Intake Total 800 ml Output Total 0 ml Balance 800 ml Laboratory Data Labs 24H Laboratory Tests 2 05/16/21 20:35: Bedside Glucose (Misc Panel) 255H 05/16/21 21:00: Nucleated Red Blood Cells % (auto) 0.0 05/17/21 04:36: Bedside Glucose (Misc Panel) 223H 05/17/21 05:14: Nucleated Red Blood Cells % (auto) 0.0, Anion Gap 6L, Glomerular Filtration Rate 33.9L, Calcium Level 8.4L, Ammonia 197H 05/17/21 07:39: Blood Gas Bicarbonate Standard 29.2H, Arterial Blood pH 7.514H, Arterial Blood Partial Pressure CO2 36.1, Arterial Blood Partial Pressure O2 108.6H, Arterial Blood Total CO2 29.5, Arterial Blood HCO3 28.4H, Arterial Blood Base Excess 5.3H, Arterial Blood Oxygen Saturation 98.1 05/17/21 13:07: Ammonia 84H 05/17/21 13:08: Nucleated Red Blood Cells % (auto) 0.0 05/17/21 15:06: Urine Color YELLOW, Urine Appearance CLEAR, Urine pH 7.0, Urine Specific [place] 1.014, Urine Protein NEGATIVE, Urine Glucose (UA) NEGATIVE, Urine Ketones NEGATIVE, Urine Blood NEGATIVE, Urine Nitrite NEGATIVE, Urine Bilirubin N EGATIVE, Urine Urobilinogen 0.2, Urine Leukocyte Esterase NEGATIVE, Urine WBC (Auto) 0, Urine RBC (Auto) 0, Urine Hyaline Casts (Auto) 0, Urine Bacteria (Auto) NEGATIVE, Urine Squamous Epithelial Cells 3, Urine Sperm (Auto) CBC/BMP Laboratory Tests 05/16/21 21:00 05/17/21 05:14 05/17/21 13:08 FSBS Laboratory Tests Test 05/16/21 20:35 05/17/21 04:36 Range/Units Bedside Glucose (Misc Panel) 255 223 80-115 MG/DL Microbiology Microbiology 05/17/21 Stool Occult Blood (REI) - Final, Complete 05/16/21 Blood Culture - Preliminary, Resulted No growth after 24 hours . All specim... 05/16/21 Blood Culture - Preliminary, Resulted No growth after 24 hours . All specim... Discharge Medications Scheduled Allopurinol (Allopurinol) 100 Mg Tablet, 100 MG PO DAILY, (Reported) Ascorbic Acid (Vitamin C) 250 Mg Tablet, 250 MG PO DAILY, (Reported) Ceftriaxone in Is-Osm Dextrose (Ceftriaxone 1 gm Piggyback) 1 Gm/50 Ml Froz.piggy, 1 INJ IV Q24H Cholecalciferol (Vitamin D3) (Vitamin D3) 1,000 Unit Tablet, 1,000 UNITS PO DAILY, (Reported) Gabapentin (Gabapentin) 300 Mg Capsule, 300 MG PO BID, (Reported) Insulin Human Lispro (Novolog) 100 U/Ml Inj, 1 DOSE SC ACHS, (Reported) PER SLIDING SCALE Lactulose (Lactulose) 10 Gm/15 Ml Solution, 30 ML PO TID, (Reported) Levothyroxine Sodium (Levothyroxine Sodium) 25 Mcg Tablet, 25 MCG PO DAILY, (Reported) Magnesium Oxide (Magnesium Oxide) 400 Mg Tablet, 800 MG PO TID, (Reported) Midodrine HCl (Midodrine HCl) 10 Mg Tablet, 15 MG PO TID, (Reported) Octreotide Acetate (Octreotide Acetate) 1,000 Mcg/1 Ml Vial, 1,000 MCG IV Q24H Pantoprazole Sodium (Pantoprazole Sodium) 40 Mg Vial, 40 MG IV BID Rifaximin (Xifaxan) 550 Mg Tablet, 550 MG PO BID, (Reported) Sodium Chloride (Sodium Chloride) 1,000 Ml Iv.soln, 1,000 ML IV Q24H Allergies Coded Allergies: No Known Drug Allergies (Verified Allergy, Unknown, 01/19/21) SUSANNAH HUYNH DO May 17, 2021 16:17
[2021-05-17] MEDS: OCTREOTIDE ACETATE 1,200 MCG in NS 238.8 ML IV SCH (18:18)
[2021-05-17 19:55] LABS: HEMATOCRIT 28.1 % (36.0-47.0); HEMOGLOBIN 9.2 g/dl (12.0-15.5); MEAN CORPUSCULAR HEMOGLOBIN 33.5 pg (27.0-33.0); MEAN CORPUSCULAR HGB CONC 32.7 g/dl (32.0-36.5); MEAN CORPUSCULAR VOLUME 102.2 fl (80.0-96.0); PLATELET COUNT, AUTOMATED 160 10^3/uL (150-450); RED BLOOD COUNT 2.75 10^6/uL (4.00-5.40); WHITE BLOOD COUNT 6.3 10^3/uL (4.0-10.0)
[2021-05-17 22:32] LABS: HEMOGLOBIN 8.6 g/dl (12.0-15.5); MEAN CORPUSCULAR HEMOGLOBIN 32.7 pg (27.0-33.0); MEAN CORPUSCULAR HGB CONC 31.9 g/dl (32.0-36.5); MEAN CORPUSCULAR VOLUME 102.7 fl (80.0-96.0); PLATELET COUNT, AUTOMATED 148 10^3/uL (150-450); RED BLOOD COUNT 2.63 10^6/uL (4.00-5.40); WHITE BLOOD COUNT 6.1 10^3/uL (4.0-10.0)
[2021-05-18] VITALS (7 sets, daily range): BP systolic 120–140; BP diastolic 58–71
[2021-05-18] MEDS: LEVOTHYROXINE 25MCG TABLET (0.025MG) PO SCH (05:25)
[2021-05-18 05:35] LABS: HEMATOCRIT 30.2 % (36.0-47.0); HEMOGLOBIN 9.9 g/dl (12.0-15.5); MEAN CORPUSCULAR HEMOGLOBIN 33.2 pg (27.0-33.0); MEAN CORPUSCULAR HGB CONC 32.8 g/dl (32.0-36.5); MEAN CORPUSCULAR VOLUME 101.3 fl (80.0-96.0); PLATELET COUNT, AUTOMATED 135 10^3/uL (150-450); RED BLOOD COUNT 2.98 10^6/uL (4.00-5.40); WHITE BLOOD COUNT 5.1 10^3/uL (4.0-10.0)
[2021-05-18 05:59] LABS: CALCIUM LEVEL 8.3 MG/DL (8.8-10.2); CREATININE FOR GFR 1.42 MG/DL (0.55-1.30); GLOMERULAR FILTRATION RATE 39.8 (>45); POTASSIUM SERUM 4.4 MEQ/L (3.5-5.1)
[2021-05-18] MEDS: SUCRALFATE SUSP 1GM/10ML UD PO SCH ×3 (07:30→17:30)
[2021-05-18] MEDS ORDERED: PANTOPRAZOLE 40MG TAB (PROTONIX) PO SCH (09:00)
[2021-05-18] MEDS: LACTULOSE 20 GM/30 ML SYRUP UD PO SCH ×2 (09:55→18:14)
[2021-05-18] MEDS: rifAXIMin 550 MG TAB (XIFAXAN) PO SCH (09:55)
[2021-05-18] MEDS: MAGNESIUM OXIDE 400MG TAB (MAG-OX) PO SCH ×2 (10:01→18:14)
[2021-05-18] MEDS: allopurinoL 100 MG TAB PO SCH (10:01)
[2021-05-18] MEDS: ASCORBIC ACID 250 MG TAB PO SCH (10:01)
[2021-05-18] MEDS: MIDODRINE 5 MG TAB PO SCH ×2 (10:01→18:14)
[2021-05-18] MEDS: GABAPENTIN 300 MG CAP PO SCH (10:01)
[2021-05-18] MEDS: VITAMIN D 1,000 INTERNATIONAL UNITS TABLET PO SCH (10:01)
[2021-05-18] MEDS ORDERED: oxyCODONE 5MG TAB PO PRN (11:50)
[2021-05-18] MEDS ORDERED: GLUCOSE 4GM CHEW TABLET PO PRN (12:00)
[2021-05-18] MEDS ORDERED: GLUCAGON INJ 1MG VIAL SC PRN (12:00)
[2021-05-18] MEDS ORDERED: DEXTROSE 50% 50 ML SYRINGE IV PRN (12:00)
[2021-05-18 12:47] LABS: HEMATOCRIT 30.3 % (36.0-47.0); HEMOGLOBIN 9.8 g/dl (12.0-15.5); MEAN CORPUSCULAR HGB CONC 32.3 g/dl (32.0-36.5); PLATELET COUNT, AUTOMATED 151 10^3/uL (150-450); RED BLOOD COUNT 2.97 10^6/uL (4.00-5.40); WHITE BLOOD COUNT 5.4 10^3/uL (4.0-10.0)
[2021-05-18] MEDS: HumaLOG INSULIN (NovoLOG) PER UNIT SC SCH ×2 (13:24→17:30)
[2021-05-18] MEDS: NS 1,000 ML IV SCH (14:11)
[2021-05-18] MEDS: OCTREOTIDE ACETATE 1,200 MCG in NS 238.8 ML IV SCH (18:05)
[2021-05-18] MEDS: cefTRIAXone SOD 1 GM in D5W MINI-BAG PLUS 50 ML IV SCH (18:14)
[2021-05-18] MEDS ORDERED: HumaLOG INSULIN (NovoLOG) PER UNIT SC SCH (21:00)
== END 2021-05-18 18:53 | disposition short-term general hospital (02) | DRG 442 ==
LOC: M ED 09:12 → M ED INP 13:45 → M PCU 15:33
PROVIDERS: ADMIT Internal Medicine; ATTEND Internal Medicine
PROC: 30233N1 Transfusion of Nonautologous Red Blood Cells into Peripheral Vein, Percutaneous Approach (ICD-10-PCS; principal; 2021-05-16)
DX: K72.90 Hepatic failure, unspecified without coma (principal); N17.9 Acute kidney failure, unspecified; I85.10 Secondary esophageal varices without bleeding; E72.20 Disorder of urea cycle metabolism, unspecified; K75.81 Nonalcoholic steatohepatitis (NASH); D64.9 Anemia, unspecified; E66.9 Obesity, unspecified; I95.89 Other hypotension; N18.30 Chronic kidney disease, stage 3 unspecified; E11.22 Type 2 diabetes mellitus with diabetic chronic kidney disease; E03.9 Hypothyroidism, unspecified; E11.40 Type 2 diabetes mellitus with diabetic neuropathy, unspecified; L40.50 Arthropathic psoriasis, unspecified; E78.5 Hyperlipidemia, unspecified; K21.9 Gastro-esophageal reflux disease without esophagitis; Z90.49 Acquired absence of other specified parts of digestive tract; Z98.49 Cataract extraction status, unspecified eye; Z98.84 Bariatric surgery status; Z86.010 Personal history of colon polyps; Z20.822 Contact with and (suspected) exposure to COVID-19; Z79.899 Other long term (current) drug therapy; Z79.4 Long term (current) use of insulin; Z68.31 Body mass index [BMI] 31.0-31.9, adult

== ENCOUNTER 2021-06-07 08:05 | Inpatient (IN) | payer OTHER ==
[~2021-06-07] VITALS: Ht 162.6 cm; Wt 80.6 kg
[~2021-06-07 08:05] MED LIST changes: +CEFTINJ IV; +NS10IV IV; +OCTR1000 IV; +PANT40IN4 IV
[2021-06-07 09:00] LABS: HEMATOCRIT 27.6 % (36.0-47.0); HEMOGLOBIN 8.8 g/dl (12.0-15.5); MEAN CORPUSCULAR HEMOGLOBIN 31.9 pg (27.0-33.0); MEAN CORPUSCULAR HGB CONC 31.9 g/dl (32.0-36.5); RED BLOOD COUNT 2.76 10^6/uL (4.00-5.40); WHITE BLOOD COUNT 5.3 10^3/uL (4.0-10.0)
--- NOTE | 2021-06-07 09:06 | REP ---
INDICATION: Altered Mental Status. COMPARISON: Comparison head CT studies are from May 17, 2021 and April 19, 2021.. TECHNIQUE: Helical scanning is acquired. 5 mm axial images were reformatted. Coronal MPR images were generated. FINDINGS: Bone window settings demonstrate an intact bony calvarium. There is no evidence of skull fracture or incidental bony calvarial lesion. The visualized paranasal sinuses appear clear. No intraorbital abnormality is seen. On soft tissue window setting images; the lateral, third, and fourth ventricles are normal in size and position. Pacheco-white differentiation pattern is normal above and below the tentorium. There are is no evidence of intracranial hemorrhage. No mass, edema, infarction, or midline shift is seen. No extra-axial fluid collection is appreciated. There is mild generalized volume loss. Vascular calcification is noted. Mild small vessel changes are again appreciated. Dystrophic calcification is noted in the right frontotemporal region unchanged. IMPRESSION: Mild generalized volume loss and vascular calcification. Small vessel changes. No acute intracranial abnormality.. <Electronically signed by Fox Cooper > 06/07/21 0902
[2021-06-07 09:28] LABS: OSMOLALITY SERUM 309 MOSM/KG (280-301)
[2021-06-07 09:48] LABS: ALBUMIN 2.2 GM/DL (3.2-5.2); ALT/SGPT 16 U/L (12-78); BILIRUBIN,DIRECT 0.4 MG/DL (0.0-0.2); BILIRUBIN,TOTAL 0.7 MG/DL (0.2-1.0); BLOOD UREA NITROGEN 43 MG/DL (7-18); CALCIUM LEVEL 8.5 MG/DL (8.8-10.2); CARBON DIOXIDE LEVEL 31 MEQ/L (21-32); CHLORIDE LEVEL 103 MEQ/L (98-107); CK-MB VALUE MASS 1.2 NG/ML (<3.6); CPK CREATINE PHOSPHOKINASE 80 U/L (26-192); CREATININE FOR GFR 1.89 MG/DL (0.55-1.30); GLOMERULAR FILTRATION RATE 28.6 (>45); GLUCOSE, FASTING 308 MG/DL (70-100); POTASSIUM SERUM 4.4 MEQ/L (3.5-5.1); SODIUM LEVEL 139 MEQ/L (136-145); TOTAL PROTEIN 6.5 GM/DL (6.4-8.2); TROPONIN I < 0.02 NG/ML (< 0.10)
[2021-06-07 09:51] LABS: ANISOCYTOSIS 1+; ATYPICAL LYMPH 1 % (0-5); EOSINOPHILS 9 % (0-3); LYMPHOCYTES 27 % (16-44); MONOCYTES 3 % (0-5); NEUTROPHILS 58 % (28-66)
[2021-06-07 09:52] LABS: PLATELET CLUMPS MODERATE AMT; PLATELET ESTIMATE INVALID (NORMAL)
[2021-06-07 09:54] LABS: VENOUS BASE EXCESS 4.7 (-2.0-2.0); VENOUS HCO3 29.8 MEQ/L (23.0-27.0); VENOUS PARTIAL PRESSURE CO2 47.5 mmHg (38.0-50.0); VENOUS PARTIAL PRESSURE O2 57.5 mmHg (30.0-50.0); VENOUS PH 7.416 UNITS (7.330-7.430); VENOUS STANDARD HCO3 28.5 MEQ/L; VENOUS TOTAL CO2 31.3 MEQ/L (24.0-28.0)
[2021-06-07] MEDS ORDERED: LACTULOSE 20 GM/30 ML SYRUP UD PO ONE (10:05)
[2021-06-07 10:15] LABS: INR 1.33; PROTHROMBIN TIME 16.8 SECONDS (12.5-14.3)
[2021-06-07 10:16] LABS: PARTIAL THROMBOPLASTIN TIME 35.5 SECONDS (24.2-38.5)
[2021-06-07] MEDS ORDERED: TORS10TA3 PO (10:36)
[2021-06-07] MEDS ORDERED: SUCR1TAB56 PO (10:36)
[2021-06-07] MEDS ORDERED: SPIR-10 PO (10:36)
[2021-06-07] MEDS ORDERED: PANT-23 PO (10:36)
[2021-06-07] MEDS ORDERED: HOME MED LIST COMPLETE! XX SCH (10:40)
[2021-06-07] MEDS ORDERED: ACETAMINOPHEN TAB 650MG DOSE (2X325MG) PO PRN (10:55)
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
[2021-06-07 11:30] LABS: RSV AMPLIFICATION NEGATIVE (NEGATIVE)
[2021-06-07] MEDS ORDERED: DEXTROSE 50% 50 ML SYRINGE IV PRN (11:30)
[2021-06-07] MEDS ORDERED: GLUCOSE 4GM CHEW TABLET PO PRN (11:30)
[2021-06-07] MEDS ORDERED: GLUCAGON INJ 1MG VIAL SC PRN (11:30)
--- NOTE | 2021-06-07 11:57 | REP ---
INDICATION: Ascites. COMPARISON: Multiple the latest 01/28/2021 also without contrast TECHNIQUE: Limited noncontrast enhanced standard helical technique FINDINGS: Ascites seen previously has increased. Once again, there are cirrhotic features to the liver status quo. There is splenomegaly status quo. There is probable mesenteric adenopathy but difficult to evaluate without contrast. There is no significant change in appearance of the retroperitoneum, pancreas, adrenal glands, or kidneys. There is no evidence of intestinal obstruction. There is no evidence of free intraperitoneal air. The lung bases are essentially unchanged from the prior exam with the exception of improvement in the left lower lobe asymmetric densities and small left pleural effusion. Bone window technique throughout the examination again shows multiple left rib fractures. IMPRESSION: Increased ascites otherwise no significant change from the prior exam with findings as described above. <Electronically signed by Renzo Aragon > 06/07/21 [id number]
[2021-06-07 12:25] LABS: FOLATE 20.8 NG/ML (>5.4); IRON (FE) 53 UG/DL (50-170); PERCENT SATURATION 18.9 % (13.2-45.0); TOTAL IRON BINDING CAPACITY 280 UG/DL (250-450); VITAMIN B12 LEVEL 735 PG/ML (247-911)
[2021-06-07 13:54] LABS: HEMOGLOBIN A1c 7.6 %
[2021-06-07 14:15] VITALS: BP 115/67
[2021-06-07] MEDS: MAGNESIUM OXIDE 400MG TAB (MAG-OX) PO SCH ×3 (15:44→20:18)
[2021-06-07] MEDS: LACTULOSE 20 GM/30 ML SYRUP UD PO SCH ×3 (15:44→20:17)
[2021-06-07] MEDS: SUCRALFATE 1 GM TAB PO SCH ×3 (15:45→20:17)
[2021-06-07] MEDS: PANTOPRAZOLE 40MG TAB (PROTONIX) PO SCH ×2 (15:45→20:17)
[2021-06-07] MEDS: LEVEMIR (INSULIN DETEMIR) 1 UNITS/0.01ML SC SCH ×2 (15:45→20:19)
[2021-06-07] MEDS: rifAXIMin 550 MG TAB (XIFAXAN) PO SCH ×2 (15:45→20:17)
[2021-06-07] MEDS: FUROSEMIDE 40MG/4ML VIAL (J1940) IV SCH ×2 (15:46→20:18)
[2021-06-07] MEDS: HumaLOG INSULIN (NovoLOG) PER UNIT SC SCH ×3 (15:46→20:18)
[2021-06-07] MEDS: SPIRONOLACTONE 25 MG TAB PO SCH (16:32)
[2021-06-07] MEDS: MIDODRINE 5 MG TAB PO SCH ×2 (16:32→20:18)
[2021-06-07] MEDS: HEPARIN SOD (PORCINE) 5000UNITS/ML 1ML VIAL/SYRINGE SC SCH (20:19)
--- NOTE | 2021-06-07 20:36 | ECGEPIP ---
[facility] - ED Test Date: 2021-06-07 Pat Name: AUDREY VILLALOBOS Department: Room: - Gender: Female Adult Crossing Guard: : 1955 Requested By: Therese Mohr Order Number: [id number] Reading MD: Therese Mohr Measurements Intervals [place] Rate: 63 P: 10 MI: 136 QRS: -34 QRSD: 116 T: 54 QT: 470 QTc: 480 Interpretive Statements Normal sinus rhythm Left axis deviation Incomplete right bundle branch block prolonged qtc similar 05/16/21 Electronically Signed on 06-07-2021 20:36:05 EDT by Therese Mohr
[2021-06-07 22:00] VITALS: BP 125/83
[2021-06-08] MEDS: FUROSEMIDE 40MG/4ML VIAL (J1940) IV SCH ×3 (04:56→20:54)
[2021-06-08] MEDS: LEVOTHYROXINE 25MCG TABLET (0.025MG) PO SCH (05:35)
[2021-06-08 05:44] LABS: HEMATOCRIT 25.1 % (36.0-47.0); HEMOGLOBIN 8.2 g/dl (12.0-15.5); MEAN CORPUSCULAR HEMOGLOBIN 32.3 pg (27.0-33.0); MEAN CORPUSCULAR HGB CONC 32.7 g/dl (32.0-36.5); MEAN CORPUSCULAR VOLUME 98.8 fl (80.0-96.0); PLATELET COUNT, AUTOMATED 156 10^3/uL (150-450); RED BLOOD COUNT 2.54 10^6/uL (4.00-5.40); WHITE BLOOD COUNT 6.4 10^3/uL (4.0-10.0)
[2021-06-08 06:00] VITALS: BP 112/55
[2021-06-08 06:18] LABS: ALBUMIN 2.1 GM/DL (3.2-5.2); BILIRUBIN,TOTAL 0.7 MG/DL (0.2-1.0); CALCIUM LEVEL 8.3 MG/DL (8.8-10.2); CREATININE FOR GFR 1.69 MG/DL (0.55-1.30); GLOMERULAR FILTRATION RATE 32.5 (>45); POTASSIUM SERUM 4.4 MEQ/L (3.5-5.1)
[2021-06-08] MEDS: PANTOPRAZOLE 40MG TAB (PROTONIX) PO SCH ×2 (08:17→20:55)
[2021-06-08] MEDS: rifAXIMin 550 MG TAB (XIFAXAN) PO SCH ×2 (08:17→20:55)
[2021-06-08] MEDS: SUCRALFATE 1 GM TAB PO SCH ×4 (08:17→20:55)
[2021-06-08] MEDS: MAGNESIUM OXIDE 400MG TAB (MAG-OX) PO SCH ×3 (08:17→20:55)
[2021-06-08] MEDS: SPIRONOLACTONE 25 MG TAB PO SCH (08:17)
[2021-06-08] MEDS: MIDODRINE 5 MG TAB PO SCH ×3 (08:18→20:55)
[2021-06-08] MEDS: HEPARIN SOD (PORCINE) 5000UNITS/ML 1ML VIAL/SYRINGE SC SCH ×2 (08:18→20:55)
[2021-06-08] MEDS: LACTULOSE 20 GM/30 ML SYRUP UD PO SCH ×3 (08:18→20:54)
[2021-06-08] MEDS: LEVEMIR (INSULIN DETEMIR) 1 UNITS/0.01ML SC SCH ×2 (08:19→20:55)
[2021-06-08] MEDS: HumaLOG INSULIN (NovoLOG) PER UNIT SC SCH ×4 (08:19→20:48)
[2021-06-08 08:21] VITALS: BP 121/62
[2021-06-08 12:00] VITALS: BP 154/81
[2021-06-08] MEDS: traMADol 50 MG TAB PO PRN ×2 (12:02→18:02)
--- NOTE | 2021-06-08 12:33 | IPNPDOC ---
Text Note Date of Service The patient was seen on 06/08/21. NOTE Subjective: No any acute events overnight. Patient not oriented in time and place. She seems more confused today. Objective: GENERAL APPEARANCE: Obese female HEENT: no scleral icterus, no JVD, EOMI CARDIOVASCULAR: S1S2 LUNGS: Diminished lung sounds bilaterally ABDOMEN: soft & not tender w palpation MUSCULOSKELETAL: no cyanosis, +2 leg swelling INTEGUMENT: no generalized pallor NEUROLOGICAL: cranial nerve function from 2-12 intact i, follows commands, speech not dysarthric Assessment/Plan Patient is 65 years old female with history of Campbell cirrhosis, obesity, history of hepatic encephalopathy, chronic hypertension, diabetes type 2 with neuropathy presented to the hospital with altered mental status. According to her patient developed mental confusion for past few days which became progressively worse. Patient denied any fever, chills, diarrhea. Of note patient recently had endoscopy and colonoscopy, she had ligation of her esophageal varices. Her told me that patient compliant to her medications. In the beginning of May she had paracentesis. In ER patient was found to have Hemoglobin 8.8, no leukocytosis, creatinine 1.8, alkaline phosphatase 243, lactic acid 1.5, ammonia level 89. Problems (1) Hepatic encephalopathy Most likely secondary to hyperammonemia superimposed with medication side effect of gabapentin Continue lactulose, continue rifaximin Gabapentin on hold (2) AIDA (acute kidney injury) Most likely secondary to volume depletion Patient has significant ascites Improved today (3) Liver cirrhosis secondary to CAMPBELL Follow-up with GI team in the outpatient settings (4) Hyperammonemia Continue to monitor (5) Hypotension Continue midodrine at home dose Blood pressure under control (6) Anemia Patient has macrocytic anemia iron panel, B12, folate within normal limit await stool for occult blood (7) Abdominal ascites CT abdomen/pelvis shows Increased ascites paracentesis ordered Continue Lasix IV with spironolactone (8) Morbid obesity BMI 32.9, complicated care (9) Diabetes Diabetes diet Detemir twice daily Insulin sliding scale Deconditioning PT/OT VS,Fishbone, I+O VS, Fishbone, I+O Laboratory Tests 06/08/21 05:33 Vital Signs Date Time Temp Pulse Resp B/P (MAP) Pulse Ox O2 Delivery O2 Flow Rate FiO2 06/08/21 12:02 20 06/08/21 08:21 121/62 (81) 06/08/21 06:00 99.9 91 94 Room Air I&O- Last 24 Hours up to 6 AM 06/08/21 06:00 Intake Total 300 ml Balance 300 ml TRINI SMALL DO Jun 08, 2021 12:33
[2021-06-08 14:00] VITALS: BP 154/77
[2021-06-08 15:37] LABS: APPEARANCE, BODY FLUID HAZY (CLEAR); PERITONEAL FL COLOR PALE YELLOW (COLORLESS); SOURCE, BODY FLUID PERITONEAL; SPEC. GRAVITY BODY FLUIDS 1.009 (NOT ESTABLISHED)
[2021-06-08 16:09] VITALS: BP 142/58
[2021-06-08 16:17] LABS: SOURCE, BODY FLUID ALBUMIN PERITONEAL; SOURCE, BODY FLUID GLUCOSE PERITONEAL; SOURCE, BODY FLUID TOT PROTEIN PERITONEAL; TOTAL PROTEIN, BODY FLUID 0.7 G/DL (NOT ESTABLISHED)
--- NOTE | 2021-06-08 17:32 | REP ---
INDICATION: Ascites. COMPARISON: None. TECHNIQUE: The procedure was performed under the direct supervision of Dr. Cooper. The risks and benefits of the procedure were explained to the patient and informed consent was obtained. The largest pocket of fluid was localized in the right flank using ultrasound guidance. The skin was prepped and draped in a sterile fashion. Six mL of 1% lidocaine was used as a local anesthetic. An 8-Uzbek multi side-hole catheter was inserted using trocar technique.3000 cc of yellow fluid was withdrawn with a sample sent to the lab for analysis. Estimated blood loss: Less than 1 mL The patient tolerated the procedure well and there were no immediate complications. After the appropriate amount of monitored convalescence, the patient was discharged from the department. FINDINGS: None IMPRESSION: Ultrasound-guided paracentesis [id number] mL of yellow fluid. <Electronically signed by Antelmo Lawrence > 06/08/21 1715 <Electronically signed by Fox Cooper > 06/08/21 0147
[2021-06-08 22:00] VITALS: BP 141/59
[2021-06-09] MEDS: FUROSEMIDE 40MG/4ML VIAL (J1940) IV SCH ×3 (04:54→20:25)
[2021-06-09] MEDS: LEVOTHYROXINE 25MCG TABLET (0.025MG) PO SCH (05:13)
[2021-06-09 06:00] VITALS: BP 155/76
[2021-06-09 06:16] LABS: BASO % 0.7 % (0.0-1.0); EOS # 0.1 10^3/uL (0.0-0.5); EOS % 2.5 % (0.0-3.0); HEMATOCRIT 27.4 % (36.0-47.0); HEMOGLOBIN 8.9 g/dl (12.0-15.5); LYMPH # 1.1 10^3/uL (1.5-5.0); LYMPH % 19.5 % (24.0-44.0); MEAN CORPUSCULAR HEMOGLOBIN 32.5 pg (27.0-33.0); MEAN CORPUSCULAR HGB CONC 32.5 g/dl (32.0-36.5); MONO # 0.8 10^3/uL (0.0-0.8); MONO % 13.8 % (2.0-8.0); NEUTROPHILS # 3.5 10^3/uL (1.5-8.5); NEUTROPHILS % 63.3 % (36.0-66.0); PLATELET COUNT, AUTOMATED 174 10^3/uL (150-450); RED BLOOD COUNT 2.74 10^6/uL (4.00-5.40); WHITE BLOOD COUNT 5.6 10^3/uL (4.0-10.0)
[2021-06-09 06:35] LABS: ALBUMIN 2.3 GM/DL (3.2-5.2); BILIRUBIN,TOTAL 1.3 MG/DL (0.2-1.0); CALCIUM LEVEL 8.9 MG/DL (8.8-10.2); CREATININE FOR GFR 1.53 MG/DL (0.55-1.30); GLOMERULAR FILTRATION RATE 36.5 (>45); MAGNESIUM LEVEL 2.1 MG/DL (1.8-2.4)
[2021-06-09] MEDS: MIDODRINE 5 MG TAB PO SCH ×3 (09:00→20:24)
[2021-06-09] MEDS: LEVEMIR (INSULIN DETEMIR) 1 UNITS/0.01ML SC SCH ×2 (09:11→22:47)
[2021-06-09] MEDS: HumaLOG INSULIN (NovoLOG) PER UNIT SC SCH ×4 (09:11→21:00)
[2021-06-09] MEDS: MAGNESIUM OXIDE 400MG TAB (MAG-OX) PO SCH ×3 (09:12→20:24)
[2021-06-09] MEDS: HEPARIN SOD (PORCINE) 5000UNITS/ML 1ML VIAL/SYRINGE SC SCH ×2 (09:12→20:25)
[2021-06-09] MEDS: SPIRONOLACTONE 50 MG TAB PO SCH (09:12)
[2021-06-09] MEDS: LACTULOSE 20 GM/30 ML SYRUP UD PO SCH ×3 (09:12→20:23)
[2021-06-09] MEDS: PANTOPRAZOLE 40MG TAB (PROTONIX) PO SCH ×2 (09:12→20:24)
[2021-06-09] MEDS: rifAXIMin 550 MG TAB (XIFAXAN) PO SCH ×2 (09:12→20:24)
[2021-06-09] MEDS: SUCRALFATE 1 GM TAB PO SCH ×4 (09:12→20:24)
--- NOTE | 2021-06-09 12:47 | IPNPDOC ---
Text Note Date of Service The patient was seen on 06/09/21. NOTE Subjective: Patient alert oriented in the morning. She stated that she feels much better. Patient developed large bowel movement with bharat stool in the morning Objective: GENERAL APPEARANCE: Obese female HEENT: no scleral icterus, no JVD, EOMI CARDIOVASCULAR: S1S2 LUNGS: Diminished lung sounds bilaterally ABDOMEN: soft & not tender w palpation MUSCULOSKELETAL: no cyanosis, +2 leg swelling INTEGUMENT: no generalized pallor NEUROLOGICAL: cranial nerve function from 2-12 intact i, follows commands, speech not dysarthric Assessment/Plan Patient is 65 years old female with history of Campbell cirrhosis, obesity, history of hepatic encephalopathy, chronic hypertension, diabetes type 2 with neuropathy presented to the hospital with altered mental status. According to her patient developed mental confusion for past few days which became progressively worse. Patient denied any fever, chills, diarrhea. Of note patient recently had endoscopy and colonoscopy, she had ligation of her esophageal varices. Her told me that patient compliant to her medications. In the beginning of May she had paracentesis. In ER patient was found to have Hemoglobin 8.8, no leukocytosis, creatinine 1.8, alkaline phosphatase 243, lactic acid 1.5, ammonia level 89. Problems (1) Hepatic encephalopathy Most likely secondary to hyperammonemia superimposed with medication side effect of gabapentin Continue lactulose, continue rifaximin Gabapentin on hold Resolved today (2) AIDA (acute kidney injury) Most likely secondary to volume depletion Patient has significant ascites Improved today (3) Liver cirrhosis secondary to CAMPBELL Follow-up with GI team in the outpatient settings (4) Hyperammonemia Continue to monitor (5) Hypotension Continue midodrine at home dose Blood pressure under control (6) Anemia Patient has macrocytic anemia iron panel, B12, folate within normal limit stool for occult blood grossly positive Abdominal ascites CT abdomen/pelvis shows Increased ascites paracentesis was done yesterday, 2.5 L of fluid was evacuated. No SBP Continue Lasix IV with spironolactone GI bleed There is concern for variceal bleeding. H&H every 6 hours. Hemoglobin stable Appreciate/agree with GI consult Continue PPI continue sucralfate Morbid obesity BMI 32.9, complicated care Diabetes Diabetes diet Detemir twice daily Insulin sliding scale Deconditioning PT/OT VS,Fishbone, I+O VS, Fishbone, I+O Laboratory Tests 7/28/21 05:49 Vital Signs Date Time Temp Pulse Resp B/P (MAP) Pulse Ox O2 Delivery O2 Flow Rate FiO2 06/09/21 06:00 97.7 93 18 155/76 (102) 90 Room Air I&O- Last 24 Hours up to 6 AM 06/09/21 06:00 Intake Total 1320 ml Output Total 1750 ml Balance -430 ml TRINI SMALL DO Jun 09, 2021 12:47
[2021-06-09 14:00] VITALS: BP 157/76
[2021-06-09 15:59] LABS: HEMATOCRIT 25.1 % (36.0-47.0); HEMOGLOBIN 8.1 g/dl (12.0-15.5)
[2021-06-09] MEDS ORDERED: propofoL 500 MG/50 ML VIAL As Ordered ONE (17:24)
[2021-06-09] MEDS ORDERED: LIDOCAINE 2% 100MG/5ML SDV (FOR ANES.) As Ordered ONE (17:24)
[2021-06-09] MEDS ORDERED: ONDANSETRON 4MG/2ML VIAL As Ordered ONE ×2 (17:25→17:34)
[2021-06-09] MEDS ORDERED: dexameTHASONE 4 MG/ML 1ML VIAL (J1100 PER 1MG) As Ordered ONE ×2 (17:25→17:34)
[2021-06-09] MEDS ORDERED: SUGAMMADEX SODIUM 500 MG/5 ML VIAL (BRIDION) As Ordered ONE (17:34)
[2021-06-09] MEDS ORDERED: fentaNYL 100 MCG/2 ML INJECTION (J3010) As Ordered ONE (17:34)
[2021-06-09] MEDS ORDERED: MIDAZOLAM INJ 2MG/2ML VIAL (J2250 PER 1MG) As Ordered ONE (17:34)
[2021-06-09] MEDS ORDERED: ROCURONIUM BROMIDE 50 MG/5 ML VIAL As Ordered ONE (17:34)
[2021-06-09] MEDS ORDERED: SUCCINYLCHOLINE 100 MG/5 ML SYRINGE (J0330) As Ordered ONE (17:35)
[2021-06-09] MEDS ORDERED: PHENYLephrine 500MCG 5ML (100MCG/ML) SYRINGE As Ordered ONE (18:42)
[2021-06-09] MEDS ORDERED: OCTREOTIDE ACETATE 100MCG/ML VIAL (J2354 PER 25MCG) IV ONE (19:05)
--- NOTE | 2021-06-09 19:05 | ROOR ---
Patient Name: Christina Ngo Procedure Date: 06/09/2021 6:19 PM Date of : 1955 Age: 65 Room: Main OR Gender: Female Note Status: Finalized Procedure: Upper GI endoscopy Indications: Acute post hemorrhagic anemia, Hematochezia, Melena, Cirrhosis rule out esophageal varices Providers: Gregg Quezada MD Referring MD: 2. Inpatient 2. Inpatient Requesting Provider: Medicines: Monitored Anesthesia Care Complications: No immediate complications. Procedure: Pre-Anesthesia Assessment: - The heart rate, respiratory rate, oxygen saturations, blood pressure, adequacy of pulmonary ventilation, and response to care were monitored throughout the procedure. The Endoscope was introduced through the mouth, and advanced to the second part of duodenum. The upper GI endoscopy was performed with difficulty due to presence of food. Successful completion of the procedure was aided by lavage. The patient tolerated the procedure well. Findings: A large amount of food (residue) was found in the entire examined stomach. Mild gastric antral vascular ectasia without bleeding was present in the gastric antrum. Localized moderately erythematous mucosa with stigmata of recent bleeding was found in the gastric body. The examined duodenum was normal. Grade II varices were found in the lower third of the esophagus.-Non bleeding Impression: - A large amount of food (residue) in the stomach, esophagus and duodenum precludes adequate visualisation. - Patchy erythematous hemorrhagic mucosa in the gastric body with small adherent blood. Lavage does not reveal a definite lesion - Mild Gastric antral vascular ectasia without bleeding. - Normal examined duodenum. - No specimens collected. Recommendation: - Repeat upper endoscopy tomorrow because the preparation was poor. - Administer an IV bolus of 50 micrograms of octreotide followed by an infusion of 50 micrograms per hour. - Use a proton pump inhibitor IV BID. - Clear liquid diet. Npo after MN Procedure Code(s): --- Professional --- 15550, Esophagogastroduodenoscopy, flexible, transoral; diagnostic, including collection of specimen(s) by brushing or washing, when performed (separate procedure) Diagnosis Code(s): --- Professional --- K31.819, Angiodysplasia of stomach and duodenum without bleeding K31.89, Other diseases of stomach and duodenum D62, Acute posthemorrhagic anemia K92.1, Melena (includes Hematochezia) K74.60, Unspecified cirrhosis of liver CPT copyright 2019 [employer] [place] [employer]. All rights reserved. The codes documented in this report are preliminary and upon economic manager review may be revised to meet current compliance requirements. Gregg Quezada MD Gregg Quezada MD 06/09/2021 7:04:10 PM Electronically signed by Gregg Quezada MD Number of Addenda: 0 Note Initiated On: 06/09/2021 6:19 PM Estimated Blood Loss: Estimated blood loss: none.
[2021-06-09] MEDS ORDERED: oxyCODONE 5MG TAB PO PRN (19:20)
[2021-06-09] MEDS ORDERED: ONDANSETRON 4MG/2ML VIAL IV PRN (19:20)
[2021-06-09] MEDS ORDERED: fentaNYL 100 MCG/2 ML INJECTION (J3010) IV PRN (19:20)
[2021-06-09] MEDS ORDERED: HYDROMORPHONE HCL 0.5 MG/ 0.5 ML SYRINGE (J1170 PER 1) IV PRN (19:20)
[2021-06-09 20:00] VITALS: BP 133/69
[2021-06-09] MEDS: OCTREOTIDE ACETATE 1,200 MCG in NS 238.8 ML IV SCH (20:25)
[2021-06-09 21:00] VITALS: BP 166/78
[2021-06-09 21:05] LABS: HEMATOCRIT 25.8 % (36.0-47.0); HEMOGLOBIN 8.3 g/dl (12.0-15.5)
[2021-06-09 22:10] VITALS: BP 149/73
[2021-06-09 23:00] VITALS: BP 149/72
[2021-06-09] MEDS: traMADol 50 MG TAB PO PRN (23:52)
[2021-06-10] VITALS (12 sets, daily range): BP systolic 116–159; BP diastolic 64–81
[2021-06-10 03:16] LABS: BASO % 0.3 % (0.0-1.0); EOS % 0.3 % (0.0-3.0); HEMATOCRIT 24.6 % (36.0-47.0); HEMOGLOBIN 7.9 g/dl (12.0-15.5); LYMPH # 0.6 10^3/uL (1.5-5.0); LYMPH % 16.3 % (24.0-44.0); MEAN CORPUSCULAR HEMOGLOBIN 32.6 pg (27.0-33.0); MEAN CORPUSCULAR HGB CONC 32.1 g/dl (32.0-36.5); MEAN CORPUSCULAR VOLUME 101.7 fl (80.0-96.0); MONO # 0.1 10^3/uL (0.0-0.8); MONO % 2.9 % (2.0-8.0); NEUTROPHILS % 79.4 % (36.0-66.0); PLATELET COUNT, AUTOMATED 151 10^3/uL (150-450); RED BLOOD COUNT 2.42 10^6/uL (4.00-5.40); WHITE BLOOD COUNT 3.8 10^3/uL (4.0-10.0)
[2021-06-10 03:43] LABS: ALBUMIN 2.2 GM/DL (3.2-5.2); CALCIUM LEVEL 8.3 MG/DL (8.8-10.2); CREATININE FOR GFR 1.46 MG/DL (0.55-1.30); GLOMERULAR FILTRATION RATE 38.5 (>45); MAGNESIUM LEVEL 2.1 MG/DL (1.8-2.4); POTASSIUM SERUM 5.4 MEQ/L (3.5-5.1); TOTAL PROTEIN 6.2 GM/DL (6.4-8.2)
[2021-06-10] MEDS: FUROSEMIDE 40MG/4ML VIAL (J1940) IV SCH ×3 (04:21→20:19)
[2021-06-10] MEDS: LEVOTHYROXINE 25MCG TABLET (0.025MG) PO SCH (05:34)
[2021-06-10] MEDS: HEPARIN SOD (PORCINE) 5000UNITS/ML 1ML VIAL/SYRINGE SC SCH ×2 (07:54→20:20)
[2021-06-10] MEDS ORDERED: DEXTROSE 50% 50 ML SYRINGE IV STA (07:58)
[2021-06-10] MEDS ORDERED: HumuLIN R (REGULAR) INSULIN (NovoLIN R) **100U/ML** PER UNIT IV STA (07:58)
[2021-06-10] MEDS: LACTULOSE 20 GM/30 ML SYRUP UD PO SCH ×3 (08:09→20:19)
[2021-06-10] MEDS: PANTOPRAZOLE 40MG TAB (PROTONIX) PO SCH ×2 (08:11→20:21)
[2021-06-10] MEDS: SPIRONOLACTONE 50 MG TAB PO SCH (08:11)
[2021-06-10] MEDS: MAGNESIUM OXIDE 400MG TAB (MAG-OX) PO SCH ×3 (08:11→20:21)
[2021-06-10] MEDS: rifAXIMin 550 MG TAB (XIFAXAN) PO SCH ×2 (08:11→20:20)
[2021-06-10] MEDS: SUCRALFATE 1 GM TAB PO SCH ×4 (08:11→20:20)
[2021-06-10] MEDS: MIDODRINE 5 MG TAB PO SCH ×3 (08:16→20:21)
[2021-06-10] MEDS: HumaLOG INSULIN (NovoLOG) PER UNIT SC SCH ×5 (09:00→20:21)
[2021-06-10] MEDS: LEVEMIR (INSULIN DETEMIR) 1 UNITS/0.01ML SC SCH ×2 (09:01→20:20)
[2021-06-10 09:16] LABS: HEMOGLOBIN 8.2 g/dl (12.0-15.5)
[2021-06-10] MEDS ORDERED: fentaNYL 100 MCG/2 ML INJECTION (J3010) As Ordered ONE (14:37)
--- NOTE | 2021-06-10 15:08 | ROOR ---
Patient Name: Christina Ngo Procedure Date: 06/10/2021 2:37 PM Date of : 1955 Age: 65 Room: [facility] Gender: Female Note Status: Finalized Procedure: Upper GI endoscopy Indications: Acute post hemorrhagic anemia, Cirrhosis with suspected esophageal varices Providers: Gregg Quezada MD Referring MD: 2. Inpatient 2. 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 Procedure: Pre-Anesthesia Assessment: - The heart rate, respiratory rate, oxygen saturations, blood pressure, adequacy of pulmonary ventilation, and response to care were monitored throughout the procedure. The Endoscope was introduced through the mouth, and advanced to the second part of duodenum. The upper GI endoscopy was accomplished without difficulty. The patient tolerated the procedure well. Findings: Moderate gastric antral vascular ectasia with bleeding was present in the gastric antrum. Coagulation for hemostasis using argon plasma at 0.8 liters/minute and 35 torres was successful. Moderate portal hypertensive gastropathy was found in the gastric fundus. Multiple diminutive angioectasias without bleeding were found in the second portion of the duodenum. Grade II varices were found in the lower third of the esophagus. They were medium in size. Two bands were successfully placed with complete eradication, resulting in deflation of varices. Impression: - Gastric antral vascular ectasia with minimal ooze/bleeding. Treated with argon plasma coagulation (APC). - Portal hypertensive gastropathy without bleeding. - Multiple non-bleeding angioectasias in the duodenum. - Grade II esophageal varices, one varix with a red whale jung suggestive of recent bleeding. Completely eradicated. Banded. - No specimens collected. Recommendation: - Administer an IV bolus of 50 micrograms of octreotide followed by an infusion of 50 micrograms per hour today, then can stop in am. - Continue present medications. - Observe patient's clinical course. - Full liquid diet for 1 day, then advance as tolerated to resume previous diet. Procedure Code(s): --- Professional --- 10621, Esophagogastroduodenoscopy, flexible, transoral; with band ligation of esophageal/gastric varices 65908, 59, Esophagogastroduodenoscopy, flexible, transoral; with control of bleeding, any method Diagnosis Code(s): --- Professional --- K74.60, Unspecified cirrhosis of liver D62, Acute posthemorrhagic anemia I85.10, Secondary esophageal varices without bleeding K31.89, Other diseases of stomach and duodenum K76.6, Portal hypertension K31.811, Angiodysplasia of stomach and duodenum with bleeding CPT copyright 2019 [employer]. All rights reserved. The codes documented in this report are preliminary and upon lead technologist in cytogenetics review may be revised to meet current compliance requirements. Gregg Quezada MD Gregg Quezada MD 06/10/2021 3:07:17 PM Electronically signed by Gregg Quezada MD Number of Addenda: 0 Note Initiated On: 06/10/2021 2:37 PM Estimated Blood Loss: Estimated blood loss: none.
[2021-06-10] MEDS ORDERED: LIDOCAINE 2% 100MG/5ML SDV (FOR ANES.) As Ordered ONE (15:12)
[2021-06-10] MEDS ORDERED: propofoL 200 MG/20 ML VIAL As Ordered ONE (15:12)
--- NOTE | 2021-06-10 15:17 | REP ---
INDICATION: dvt. COMPARISON: None. TECHNIQUE: Right {lower extremity duplex venous scanning is performed from the groin to the ankle level. FINDINGS: The deep veins are anechoic and fully compressible from the groin to the popliteal fossa in the right lower extremity. Color flow imaging is homogeneous. Spectral Doppler interrogation demonstrates intact respiratory variation in flow and normal manual augmentation of flow. There is no evidence of deep vein thrombosis above the knee. There is no evidence of DVT in the visualized calf veins. Doppler interrogation of the contralateral common femoral vein shows normal symmetric respiratory phasicity. IMPRESSION: No evidence of DVT in the right lower extremity femoropopliteal veins. No DVT in the visible portions of the calf veins. <Electronically signed by Fox Cooper > 06/10/21 6421
[2021-06-10] MEDS ORDERED: ONDANSETRON 4MG/2ML VIAL IV PRN (15:45)
[2021-06-10] MEDS: traMADol 50 MG TAB PO PRN (16:09)
[2021-06-10 17:32] LABS: HEMATOCRIT 25.1 % (36.0-47.0); HEMOGLOBIN 8.1 g/dl (12.0-15.5)
[2021-06-10 17:42] LABS: CALCIUM LEVEL 8.3 MG/DL (8.8-10.2); CREATININE FOR GFR 1.6 MG/DL (0.55-1.30); GLOMERULAR FILTRATION RATE 34.7 (>45); POTASSIUM SERUM 4.7 MEQ/L (3.5-5.1)
[2021-06-10] MEDS ORDERED: MORPHINE 2 MG/ML 1ML VIAL (J2270) IV PRN (17:50)
[2021-06-10] MEDS: METOCLOPRAMIDE INJ 10MG/2ML VIAL (J2765 PER 1) IV SCH (18:36)
--- NOTE | 2021-06-10 18:59 | ECGEPIP ---
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
[2021-06-10] MEDS: OCTREOTIDE ACETATE 1,200 MCG in NS 238.8 ML IV SCH (20:20)
[2021-06-11] MEDS: METOCLOPRAMIDE INJ 10MG/2ML VIAL (J2765 PER 1) IV SCH ×4 (00:36→18:00)
[2021-06-11 02:00] VITALS: BP 139/70
[2021-06-11 03:19] LABS: BASO % 0.3 % (0.0-1.0); EOS # 0.1 10^3/uL (0.0-0.5); EOS % 1.3 % (0.0-3.0); HEMATOCRIT 23.7 % (36.0-47.0); HEMOGLOBIN 7.5 g/dl (12.0-15.5); LYMPH # 1.3 10^3/uL (1.5-5.0); MEAN CORPUSCULAR HEMOGLOBIN 32.3 pg (27.0-33.0); MEAN CORPUSCULAR HGB CONC 31.6 g/dl (32.0-36.5); MEAN CORPUSCULAR VOLUME 102.2 fl (80.0-96.0); MONO # 0.8 10^3/uL (0.0-0.8); MONO % 11.9 % (2.0-8.0); NEUTROPHILS # 4.5 10^3/uL (1.5-8.5); NEUTROPHILS % 67.2 % (36.0-66.0); PLATELET COUNT, AUTOMATED 180 10^3/uL (150-450); RED BLOOD COUNT 2.32 10^6/uL (4.00-5.40); WHITE BLOOD COUNT 6.7 10^3/uL (4.0-10.0)
[2021-06-11 03:58] LABS: ALBUMIN 2.3 GM/DL (3.2-5.2); BILIRUBIN,TOTAL 0.8 MG/DL (0.2-1.0); CALCIUM LEVEL 7.9 MG/DL (8.8-10.2); CREATININE FOR GFR 1.66 MG/DL (0.55-1.30); GLOMERULAR FILTRATION RATE 33.2 (>45); MAGNESIUM LEVEL 2.1 MG/DL (1.8-2.4); POTASSIUM SERUM 4.8 MEQ/L (3.5-5.1); TOTAL PROTEIN 6.1 GM/DL (6.4-8.2)
[2021-06-11] MEDS: FUROSEMIDE 40MG/4ML VIAL (J1940) IV SCH ×3 (04:23→21:00)
[2021-06-11] MEDS: LEVOTHYROXINE 25MCG TABLET (0.025MG) PO SCH (05:03)
[2021-06-11 06:00] VITALS: BP 148/70
[2021-06-11] MEDS: HumaLOG INSULIN (NovoLOG) PER UNIT SC SCH ×4 (07:30→21:00)
--- NOTE | 2021-06-11 07:41 | IPNPDOC ---
Text Note Date of Service The patient was seen on 06/10/21. NOTE Subjective: Patient alert oriented in the morning. No new acute events overn ight Objective: GENERAL APPEARANCE: Obese female HEENT: no scleral icterus, no JVD, EOMI CARDIOVASCULAR: S1S2 LUNGS: Diminished lung sounds bilaterally ABDOMEN: soft & not tender w palpation MUSCULOSKELETAL: no cyanosis, +2 leg swelling INTEGUMENT: no generalized pallor NEUROLOGICAL: cranial nerve function from 2-12 intact i, follows commands, speech not dysarthric Assessment/Plan Patient is 65 years old female with history of Campbell cirrhosis, obesity, history of hepatic encephalopathy, chronic hypertension, diabetes type 2 with neuropathy presented to the hospital with altered mental status. According to her patient developed mental confusion for past few days which became progressively worse. Patient denied any fever, chills, diarrhea. Of note patient recently had endoscopy and colonoscopy, she had ligation of her esophageal varices. Her told me that patient compliant to her medications. In the beginning of May she had paracentesis. In ER patient was found to have Hemoglobin 8.8, no leukocytosis, creatinine 1.8, alkaline phosphatase 243, lactic acid 1.5, ammonia level 89. 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 No SBP Continue Lasix IV with spironolactone GI bleed There is concern for variceal bleeding. H&H every 6 hours. EGD today Continue PPI continue sucralfate Morbid obesity BMI 32.9, complicated care Diabetes Diabetes diet Detemir twice daily Insulin sliding scale Deconditioning PT/OT VS,Fishbone, I+O VS, Fishbone, I+O Laboratory Tests 06/10/21 08:59 7/29/21 17:05 06/10/21 21:12 06/11/21 03:03 Vital Signs Date Time Temp Pulse Resp B/P (MAP) Pulse Ox O2 Delivery O2 Flow Rate FiO2 06/11/21 02:00 98.0 86 16 139/70 (93) 92 Room Air 06/10/21 18:10 2.0 I&O- Last 24 Hours up to 6 AM 06/11/21 06:00 Intake Total 1260 ml Output Total 1400 ml Balance -140 ml TRINI SMALL DO Jun 11, 2021 07:41
[2021-06-11 07:56] VITALS: BP 125/68
[2021-06-11] MEDS: MIDODRINE 5 MG TAB PO SCH ×3 (07:59→21:00)
[2021-06-11] MEDS: LACTULOSE 20 GM/30 ML SYRUP UD PO SCH ×3 (07:59→21:00)
[2021-06-11] MEDS: MAGNESIUM OXIDE 400MG TAB (MAG-OX) PO SCH ×3 (08:00→21:00)
[2021-06-11] MEDS: HEPARIN SOD (PORCINE) 5000UNITS/ML 1ML VIAL/SYRINGE SC SCH ×2 (08:00→21:00)
[2021-06-11] MEDS: SPIRONOLACTONE 50 MG TAB PO SCH (08:00)
[2021-06-11] MEDS: rifAXIMin 550 MG TAB (XIFAXAN) PO SCH ×2 (08:00→21:00)
[2021-06-11] MEDS: SUCRALFATE 1 GM TAB PO SCH ×4 (08:00→21:01)
[2021-06-11] MEDS: PANTOPRAZOLE 40MG TAB (PROTONIX) PO SCH ×2 (08:00→21:00)
[2021-06-11 09:12] LABS: HEMOGLOBIN 8.4 g/dl (12.0-15.5)
[2021-06-11] MEDS: LEVEMIR (INSULIN DETEMIR) 1 UNITS/0.01ML SC SCH ×3 (09:12→21:02)
[2021-06-11] MEDS ORDERED: TORS10TA3 PO (09:53)
[2021-06-11] MEDS ORDERED: ALDA50TA2 PO (09:53)
[2021-06-11] MEDS ORDERED: GABA-282 PO (09:53)
[2021-06-11 10:00] VITALS: BP 127/69
[2021-06-11 14:00] VITALS: BP 131/71
--- NOTE | 2021-06-11 14:30 | IPNPDOC ---
Text Note Date of Service The patient was seen on 06/11/21. NOTE Subjective: Patient alert oriented in the morning. Subsequently patient deve loped mental confusion, patient saw ships outside the window Objective: GENERAL APPEARANCE: Obese female HEENT: no scleral icterus, no JVD, EOMI CARDIOVASCULAR: S1S2 LUNGS: Diminished lung sounds bilaterally ABDOMEN: soft & not tender w palpation MUSCULOSKELETAL: no cyanosis, +1 leg swelling INTEGUMENT: no generalized pallor NEUROLOGICAL: cranial nerve function from 2-12 intact, follows commands, speech not dysarthric Assessment/Plan Patient is 65 years old female with history of Campbell cirrhosis, obesity, history of hepatic encephalopathy, chronic hypertension, diabetes type 2 with neuropathy presented to the hospital with altered mental status. According to her patient developed mental confusion for past few days which became progressively worse. Patient denied any fever, chills, diarrhea. Of note patient recently had endoscopy and colonoscopy, she had ligation of her esophageal varices. Her told me that patient compliant to her medications. In the beginning of May she had paracentesis. In ER patient was found to have Hemoglobin 8.8, no leukocytosis, creatinine 1.8, alkaline phosphatase 243, lactic acid 1.5, ammonia level 89. Problems (1) Hepatic encephalopathy Most likely secondary to hyperammonemia superimposed with medication side effect of gabapentin Continue lactulose, continue rifaximin Gabapentin on hold Continue to monitor ammonia level (2) AIDA (acute kidney injury) Most likely secondary to volume depletion Improved (3) Liver cirrhosis secondary to CAMPBELL Follow-up with GI team in the outpatient settings (4) Hyperammonemia Continue to monitor (5) Hypotension Continue midodrine at home dose Blood pressure under control (6) Anemia Patient has macrocytic anemia iron panel, B12, folate within normal limit stool for occult blood grossly positive EGD was done and showed Abdominal ascites CT abdomen/pelvis shows Increased ascites paracentesis was done, 2.5 L of fluid was evacuated. No SBP Continue Lasix IV with spironolactone GI bleed/ Grade II esophageal varices There is concern for variceal bleeding. H&H every 6 hours. EGD Gastric antral vascular ectasia with minimal ooze/bleeding. Treated with argon plasma coagulation (APC). - Portal hypertensive gastropathy without bleeding. - Multiple non-bleeding angioectasias in the duodenum. - Grade II esophageal varices, one varix with a red whale jung suggestive of recent bleeding. Completely eradicated. Banded. Continue PPI continue sucralfate Morbid obesity BMI 32.9, complicated care Diabetes Diabetes diet Detemir twice daily Insulin sliding scale Deconditioning PT/OT VS,Fishbone, I+O VS, Fishbone, I+O Laboratory Tests 06/10/21 17:05 06/10/21 21:12 06/11/21 03:03 06/11/21 08:58 Vital Signs Date Time Temp Pulse Resp B/P (MAP) Pulse Ox O2 Delivery O2 Flow Rate FiO2 06/11/21 14:00 97.8 84 16 131/71 (91) 94 Room Air 06/10/21 18:10 2.0 I&O- Last 24 Hours up to 6 AM 06/11/21 05:59 Intake Total 1260 ml Output Total 1400 ml Balance -140 ml TRINI SMALL DO Jun 11, 2021 14:30
[2021-06-11 22:00] VITALS: BP 134/75
[2021-06-12] MEDS ORDERED: LEVEMIR (INSULIN DETEMIR) 1 UNITS/0.01ML SC ONE
[2021-06-12] MEDS: METOCLOPRAMIDE INJ 10MG/2ML VIAL (J2765 PER 1) IV SCH ×4 (01:07→17:11)
[2021-06-12] MEDS: FUROSEMIDE 40MG/4ML VIAL (J1940) IV SCH (04:47)
[2021-06-12 06:00] VITALS: BP 134/75
[2021-06-12] MEDS: LEVOTHYROXINE 25MCG TABLET (0.025MG) PO SCH (06:04)
[2021-06-12 07:00] LABS: BASO % 0.5 % (0.0-1.0); EOS # 0.3 10^3/uL (0.0-0.5); EOS % 4.2 % (0.0-3.0); HEMATOCRIT 23.3 % (36.0-47.0); HEMOGLOBIN 7.5 g/dl (12.0-15.5); LYMPH # 1.5 10^3/uL (1.5-5.0); LYMPH % 24.7 % (24.0-44.0); MEAN CORPUSCULAR HEMOGLOBIN 32.2 pg (27.0-33.0); MEAN CORPUSCULAR HGB CONC 32.2 g/dl (32.0-36.5); MONO # 0.8 10^3/uL (0.0-0.8); MONO % 13.1 % (2.0-8.0); NEUTROPHILS # 3.4 10^3/uL (1.5-8.5); NEUTROPHILS % 57.3 % (36.0-66.0); PLATELET COUNT, AUTOMATED 149 10^3/uL (150-450); RED BLOOD COUNT 2.33 10^6/uL (4.00-5.40); WHITE BLOOD COUNT 5.9 10^3/uL (4.0-10.0)
[2021-06-12] MEDS: HumaLOG INSULIN (NovoLOG) PER UNIT SC SCH ×4 (07:30→20:41)
[2021-06-12] MEDS: SUCRALFATE 1 GM TAB PO SCH ×4 (07:30→20:35)
[2021-06-12 07:32] LABS: ALBUMIN 2.3 GM/DL (3.2-5.2); BILIRUBIN,TOTAL 0.8 MG/DL (0.2-1.0); CALCIUM LEVEL 8.5 MG/DL (8.8-10.2); CREATININE FOR GFR 1.82 MG/DL (0.55-1.30); GLOMERULAR FILTRATION RATE 29.9 (>45); MAGNESIUM LEVEL 2.4 MG/DL (1.8-2.4); POTASSIUM SERUM 4.4 MEQ/L (3.5-5.1); TOTAL PROTEIN 6.2 GM/DL (6.4-8.2)
[2021-06-12] MEDS: LACTULOSE 20 GM/30 ML SYRUP UD PO SCH ×5 (09:00→21:00)
[2021-06-12] MEDS: MIDODRINE 5 MG TAB PO SCH ×3 (09:00→21:00)
[2021-06-12] MEDS: LEVEMIR (INSULIN DETEMIR) 1 UNITS/0.01ML SC SCH ×2 (09:00→20:34)
[2021-06-12] MEDS: PANTOPRAZOLE 40MG TAB (PROTONIX) PO SCH ×2 (09:46→20:34)
[2021-06-12] MEDS: rifAXIMin 550 MG TAB (XIFAXAN) PO SCH ×2 (09:46→20:35)
[2021-06-12] MEDS: SPIRONOLACTONE 50 MG TAB PO SCH (09:46)
[2021-06-12] MEDS: MAGNESIUM OXIDE 400MG TAB (MAG-OX) PO SCH ×3 (09:46→20:35)
[2021-06-12] MEDS: HEPARIN SOD (PORCINE) 5000UNITS/ML 1ML VIAL/SYRINGE SC SCH ×2 (09:46→20:34)
--- NOTE | 2021-06-12 11:32 | IPNPDOC ---
Text Note Date of Service The patient was seen on 06/12/21. NOTE Subjective: Patient unresponsive in the morning, does not follow commands. Objective: GENERAL APPEARANCE: Lethargic female HEENT: no scleral icterus, no JVD, EOMI CARDIOVASCULAR: S1S2 LUNGS: Diminished lung sounds bilaterally ABDOMEN: soft & not tender w palpation MUSCULOSKELETAL: no cyanosis, +1 leg swelling INTEGUMENT: no generalized pallor NEUROLOGICAL: Does not follows commands, Reflexes intact Assessment/Plan Patient is 65 years old female with history of Campbell cirrhosis, obesity, history of hepatic encephalopathy, chronic hypertension, diabetes type 2 with neuropathy presented to the hospital with altered mental status. According to her patient developed mental confusion for past few days which became progressively worse. Patient denied any fever, chills, diarrhea. Of note patient recently had endoscopy and colonoscopy, she had ligation of her esophageal varices. Her told me that patient compliant to her medications. In the beginning of she had paracentesis. In ER patient was found to have Hemoglobin 8.8, no leukocytosis, creatinine 1.8, alkaline phosphatase 243, lactic acid 1.5, ammonia level 89. Problems (1) Hepatic encephalopathy Most likely secondary to hyperammonemia superimposed with medication side effect of gabapentin Continue lactulose, continue rifaximin. Gabapentin on hold ammonia level 137 on 06/11/2021. We will check today. I will give lactulose per rectum today (2) AIDA (acute kidney injury) Most likely secondary to volume depletion. Worsening today I will hold lasix IV for today (3) Liver cirrhosis secondary to CAMPBELL Follow-up with GI team in the outpatient settings (4) Hyperammonemia Continue to monitor (5) Hypotension Continue midodrine at home dose Blood pressure under control (6) Anemia Patient has macrocytic anemia iron panel, B12, folate within normal limit stool for occult blood grossly positive Abdominal ascites CT abdomen/pelvis shows Increased ascites paracentesis was done, 2.5 L of fluid was evacuated. No SBP Lasix IV on hold Continue spironolactone GI bleed/ Grade II esophageal varices There is concern for variceal bleeding. H&H every 6 hours. EGD Gastric antral vascular ectasia with minimal ooze/bleeding. Treated with argon plasma coagulation (APC). - Portal hypertensive gastropathy without bleeding. - Multiple non-bleeding angioectasias in the duodenum. - Grade II esophageal varices, one varix with a red whale jung suggestive of recent bleeding. Completely eradicated. Banded. Continue PPI continue sucralfate Morbid obesity BMI 32.9, complicated care Diabetes Diabetes diet Detemir twice daily Insulin sliding scale Deconditioning PT/OT Overall prognosis is poor Palliative care encounter Segun MORGAN, I+O VSSgeun I+O Laboratory Tests 06/12/21 06:20 Vital Signs Date Time Temp Pulse Resp B/P (MAP) Pulse Ox O2 Delivery O2 Flow Rate FiO2 06/12/21 06:00 98.2 88 16 134/75 (94) 95 Room Air 06/12/21 05:12 1.0 I&O- Last 24 Hours up to 6 AM 06/12/21 06:00 Intake Total 1170 ml Output Total 500 ml Balance 670 ml TRINI SMALL DO Jun 12, 2021 11:32
[2021-06-12] MEDS ORDERED: LACTULOSE 20 GM/30 ML SYRUP UD PR ONE (12:00)
[2021-06-12 14:00] VITALS: BP 121/65
[2021-06-12 22:00] VITALS: BP 121/63
[2021-06-13] VITALS (13 sets, daily range): BP systolic 104–155; BP diastolic 55–84
[2021-06-13] MEDS: METOCLOPRAMIDE INJ 10MG/2ML VIAL (J2765 PER 1) IV SCH ×4 (00:21→17:34)
[2021-06-13] MEDS: SUCRALFATE 1 GM TAB PO SCH ×4 (06:31→20:00)
[2021-06-13] MEDS: LEVOTHYROXINE 25MCG TABLET (0.025MG) PO SCH (06:31)
[2021-06-13 06:59] LABS: MEAN CORPUSCULAR HEMOGLOBIN 32.2 pg (27.0-33.0); MEAN CORPUSCULAR HGB CONC 32.1 g/dl (32.0-36.5); MEAN CORPUSCULAR VOLUME 100.5 fl (80.0-96.0); PLATELET COUNT, AUTOMATED 135 10^3/uL (150-450); RED BLOOD COUNT 2.08 10^6/uL (4.00-5.40); WHITE BLOOD COUNT 4.5 10^3/uL (4.0-10.0)
[2021-06-13 07:00] LABS: HEMATOCRIT 20.9 % (36.0-47.0)
[2021-06-13 07:01] LABS: HEMOGLOBIN 6.7 g/dl (12.0-15.5)
[2021-06-13 07:15] LABS: ANISOCYTOSIS 1+; ATYPICAL LYMPH 3 % (0-5); EOSINOPHILS 5 % (0-3); LYMPHOCYTES 31 % (16-44); MONOCYTES 11 % (0-5); NEUTROPHILS 50 % (28-66); PLATELET ESTIMATE NORMAL (NORMAL); POLYCHROMASIA 1+
[2021-06-13 07:24] LABS: ALBUMIN 2.1 GM/DL (3.2-5.2); BILIRUBIN,TOTAL 0.8 MG/DL (0.2-1.0); CALCIUM LEVEL 7.9 MG/DL (8.8-10.2); CREATININE FOR GFR 1.64 MG/DL (0.55-1.30); GLOMERULAR FILTRATION RATE 33.7 (>45); MAGNESIUM LEVEL 2.6 MG/DL (1.8-2.4); POTASSIUM SERUM 3.8 MEQ/L (3.5-5.1); TOTAL PROTEIN 5.6 GM/DL (6.4-8.2)
[2021-06-13] MEDS: HumaLOG INSULIN (NovoLOG) PER UNIT SC SCH ×4 (07:30→21:00)
[2021-06-13] MEDS: MIDODRINE 5 MG TAB PO SCH ×3 (09:00→21:00)
[2021-06-13] MEDS: LACTULOSE 20 GM/30 ML SYRUP UD PO SCH ×3 (09:00→20:00)
[2021-06-13] MEDS: LEVEMIR (INSULIN DETEMIR) 1 UNITS/0.01ML SC SCH ×2 (09:00→20:06)
[2021-06-13] MEDS: rifAXIMin 550 MG TAB (XIFAXAN) PO SCH ×2 (09:04→19:59)
[2021-06-13] MEDS: PANTOPRAZOLE 40MG TAB (PROTONIX) PO SCH ×2 (09:04→20:00)
[2021-06-13] MEDS: MAGNESIUM OXIDE 400MG TAB (MAG-OX) PO SCH ×3 (09:04→20:00)
[2021-06-13] MEDS: SPIRONOLACTONE 50 MG TAB PO SCH (09:04)
[2021-06-13] MEDS: traMADol 50 MG TAB PO PRN ×2 (09:05→16:24)
[2021-06-13] MEDS: HEPARIN SOD (PORCINE) 5000UNITS/ML 1ML VIAL/SYRINGE SC SCH ×2 (09:07→19:59)
[2021-06-13] MEDS: FUROSEMIDE 40MG/4ML VIAL (J1940) IV SCH (12:53)
--- NOTE | 2021-06-13 15:12 | IPNPDOC ---
Text Note Date of Service The patient was seen on 06/13/21. NOTE Hospitalist Progress Note Subjective: She actually is somewhat awake this morning, she is lethargic. She is not entirely oriented, but seems to be answering some questions appropriately. She is not in pain. Objective: General: Awake, lethargic. Not in any acute distress. HEENT: Head normocephalic, atraumatic, sclera are nonicteric. Hearing is grossly intact to conversation. Respiratory: Clear to auscultation bilaterally with no wheezes, rales, or rhonchi. Cardiovascular: Regular rate and rhythm, with no rubs, gallops, or murmur. Abdomen: Soft, nontender, nondistended, no hepatosplenomegaly appreciated. Bowel sounds present. Extremities: 2+ pulses in the radial and dorsalis pedis bilaterally. No evidence of clubbing or cyanosis. Assessment: Severe blood loss anemia Portal hypertensive gastropathy Gastric antral vascular ectasia Grade 2 esophageal varices with EGD and banding performed 06/10/2021 -H&H has been slowly trending downward, was found to be 6.7 this morning. -We will transfuse 2 units of blood today. Blood consent was already signed prior to EGD -Continue Reglan, Zofran, Protonix, sucralfate Hepatic encephalopathy Elevated ammonia -Ammonia improved with the administration of per rectum lactulose, will recheck again tomorrow -Continue oral lactulose 3 times daily -Continue to hold gabapentin Acute kidney injury -Mildly improved from yesterday -We will discontinue IV Lasix at this time and start her on torsemide 20 mg twice daily which apparently is her home dose Liver cirrhosis secondary to CAMPBELL -Follow-up with GI as an outpatient after discharge Hypotension -Continue midodrine at home dose Morbid obesity BMI 37.4 -Complicating care Diabetes mellitus type 2 -Continue basal insulin with sliding scale short acting insulin before meals and at bedtime Deconditioning -Continue with recommendations from PT OT Prognosis continues to be poor VS,Allenbone, I+O VS, Allenbone, I+O Laboratory Tests 06/13/21 05:59 Vital Signs Date Time Temp Pulse Resp B/P (MAP) Pulse Ox O2 Delivery O2 Flow Rate FiO2 06/13/21 14:00 98.4 89 17 135/63 (87) 92 Room Air 06/12/21 05:12 1.0 I&O- Last 24 Hours up to 6 AM 06/13/21 05:59 Intake Total 620 ml Output Total 0 ml Balance 620 ml SARTHAK ROSA DO Jun 13, 2021 15:12
[2021-06-13] MEDS: TORSEMIDE 20 MG TAB PO SCH (16:23)
[2021-06-13] MEDS ORDERED: diphenhydrAMINE 25MG CAP PO ONE (17:35)
[2021-06-13] MEDS ORDERED: ACETAMINOPHEN TAB 650MG DOSE (2X325MG) PO ONE (17:35)
[2021-06-13] MEDS ORDERED: hydrOXYzine 25 MG TAB PO PRN (19:05)
[2021-06-14] MEDS: METOCLOPRAMIDE INJ 10MG/2ML VIAL (J2765 PER 1) IV SCH ×5 (00:19→23:51)
[2021-06-14 06:00] VITALS: BP 122/59
[2021-06-14] MEDS: LEVOTHYROXINE 25MCG TABLET (0.025MG) PO SCH (06:12)
[2021-06-14 06:18] LABS: BASO % 0.7 % (0.0-1.0); EOS # 0.2 10^3/uL (0.0-0.5); EOS % 4.2 % (0.0-3.0); HEMATOCRIT 28.5 % (36.0-47.0); LYMPH # 1.8 10^3/uL (1.5-5.0); LYMPH % 32.3 % (24.0-44.0); MEAN CORPUSCULAR HEMOGLOBIN 31.8 pg (27.0-33.0); MEAN CORPUSCULAR VOLUME 96.3 fl (80.0-96.0); MONO # 0.8 10^3/uL (0.0-0.8); MONO % 15.1 % (2.0-8.0); NEUTROPHILS # 2.6 10^3/uL (1.5-8.5); NEUTROPHILS % 47.3 % (36.0-66.0); PLATELET COUNT, AUTOMATED 129 10^3/uL (150-450); RED BLOOD COUNT 2.96 10^6/uL (4.00-5.40); WHITE BLOOD COUNT 5.4 10^3/uL (4.0-10.0)
[2021-06-14 06:29] LABS: HEMOGLOBIN 9.4 g/dl (12.0-15.5)
[2021-06-14 06:50] LABS: ALBUMIN 2.1 GM/DL (3.2-5.2); BILIRUBIN,TOTAL 1.6 MG/DL (0.2-1.0); CREATININE FOR GFR 1.47 MG/DL (0.55-1.30); GLOMERULAR FILTRATION RATE 38.2 (>45); MAGNESIUM LEVEL 2.2 MG/DL (1.8-2.4); TOTAL PROTEIN 5.8 GM/DL (6.4-8.2)
[2021-06-14] MEDS: HumaLOG INSULIN (NovoLOG) PER UNIT SC SCH ×4 (07:30→21:00)
[2021-06-14] MEDS ORDERED: LACTULOSE 20 GM/30 ML SYRUP UD PR ONE (08:15)
[2021-06-14] MEDS: SUCRALFATE 1 GM TAB PO SCH ×4 (08:27→21:08)
[2021-06-14] MEDS: MAGNESIUM OXIDE 400MG TAB (MAG-OX) PO SCH ×3 (08:27→21:07)
[2021-06-14] MEDS: SPIRONOLACTONE 50 MG TAB PO SCH (08:27)
[2021-06-14] MEDS: rifAXIMin 550 MG TAB (XIFAXAN) PO SCH ×2 (08:27→21:08)
[2021-06-14] MEDS: PANTOPRAZOLE 40MG TAB (PROTONIX) PO SCH ×2 (08:27→21:05)
[2021-06-14] MEDS: HEPARIN SOD (PORCINE) 5000UNITS/ML 1ML VIAL/SYRINGE SC SCH ×2 (08:28→21:06)
[2021-06-14] MEDS: LEVEMIR (INSULIN DETEMIR) 1 UNITS/0.01ML SC SCH ×2 (08:28→21:06)
[2021-06-14] MEDS: LACTULOSE 20 GM/30 ML SYRUP UD PO SCH ×3 (08:28→21:04)
[2021-06-14] MEDS: TORSEMIDE 20 MG TAB PO SCH ×2 (08:28→17:00)
[2021-06-14 08:30] VITALS: BP 141/68
[2021-06-14] MEDS: MIDODRINE 5 MG TAB PO SCH ×4 (08:30→21:00)
[2021-06-14 14:00] VITALS: BP 130/61
[2021-06-14 17:09] VITALS: BP 153/66
--- NOTE | 2021-06-14 19:42 | IPNPDOC ---
Text Note Date of Service The patient was seen on 06/14/21. NOTE Hospitalist Progress Note Subjective: Patient is asleep in the bed. She is difficult to arouse, she only opens her eyes, and does not respond to any questions at this time. Objective: General: Awake, lethargic. Not in any acute distress. HEENT: Head normocephalic, atraumatic, sclera are nonicteric. Respiratory: Clear to auscultation bilaterally with no wheezes, rales, or r honchi. Cardiovascular: Regular rate and rhythm, with no rubs, gallops, or murmur. Abdomen: Soft, nondistended. Bowel sounds present. Extremities: 2+ pulses in the radial and dorsalis pedis. No evidence of clubbing or cyanosis. Assessment: Severe blood loss anemia Portal hypertensive gastropathy Gastric antral vascular ectasia Grade 2 esophageal varices with EGD and banding performed 06/10/2021 -H&H improved with the administration of 2 units of blood last night -Continue to monitor H&H -Continue Reglan, Zofran, Protonix, sucralfate Hepatic encephalopathy Elevated ammonia -Ammonia level spiked again, this may be the explanation for her lethargy today. -We will give another lactulose enema today in addition to oral lactulose and Xifaxan -Continue oral lactulose 3 times daily -Continue Xifaxan -Continue to hold gabapentin Acute kidney injury -Renal function continues to slowly improve -Continue torsemide 20 mg twice daily which apparently is her home dose Liver cirrhosis secondary to CAMPBELL -Follow-up with GI as an outpatient after discharge Hypotension -Continue midodrine at home dose Morbid obesity BMI 37.4 -Complicating care Diabetes mellitus type 2 -Continue basal insulin with sliding scale short acting insulin before meals and at bedtime Deconditioning -Continue with recommendations from PT OT Prognosis continues to be poor VS,Fishbone, I+O VS, Fishbone, I+O Laboratory Tests 06/14/21 06:00 Vital Signs Date Time Temp Pulse Resp B/P (MAP) Pulse Ox O2 Delivery O2 Flow Rate FiO2 06/14/21 17:09 153/66 (95) 06/14/21 14:00 98.4 88 17 94 Room Air 06/12/21 05:12 1.0 I&O- Last 24 Hours up to 6 AM 06/14/21 06:00 Intake Total 1660 ml Output Total 0 ml Balance 1660 ml SARTHAK ROSA DO Jun 14, 2021 19:42
[2021-06-14 21:08] VITALS: BP 118/58
[2021-06-14 22:00] VITALS: BP 119/58
[2021-06-15 06:00] VITALS: BP 138/70
[2021-06-15] MEDS: LEVOTHYROXINE 25MCG TABLET (0.025MG) PO SCH (06:07)
[2021-06-15] MEDS: METOCLOPRAMIDE INJ 10MG/2ML VIAL (J2765 PER 1) IV SCH ×4 (06:07→23:10)
[2021-06-15 06:16] LABS: HEMATOCRIT 28.1 % (36.0-47.0); HEMOGLOBIN 9.2 g/dl (12.0-15.5); MEAN CORPUSCULAR HEMOGLOBIN 31.7 pg (27.0-33.0); MEAN CORPUSCULAR HGB CONC 32.7 g/dl (32.0-36.5); MEAN CORPUSCULAR VOLUME 96.9 fl (80.0-96.0); PLATELET COUNT, AUTOMATED 140 10^3/uL (150-450); WHITE BLOOD COUNT 5.8 10^3/uL (4.0-10.0)
[2021-06-15 06:48] LABS: ALBUMIN 2.3 GM/DL (3.2-5.2); BILIRUBIN,TOTAL 1.2 MG/DL (0.2-1.0); CALCIUM LEVEL 8.3 MG/DL (8.8-10.2); CREATININE FOR GFR 1.39 MG/DL (0.55-1.30); GLOMERULAR FILTRATION RATE 40.8 (>45); POTASSIUM SERUM 3.5 MEQ/L (3.5-5.1); TOTAL PROTEIN 5.8 GM/DL (6.4-8.2)
[2021-06-15 06:55] LABS: EOSINOPHILS 1 % (0-3); LYMPHOCYTES 39 % (16-44); MONOCYTES 9 % (0-5); NEUTROPHILS 51 % (28-66); PLATELET ESTIMATE NORMAL (NORMAL)
[2021-06-15 06:56] LABS: ANISOCYTOSIS 1+; POLYCHROMASIA 1+
[2021-06-15] MEDS: MIDODRINE 5 MG TAB PO SCH ×3 (09:00→20:40)
[2021-06-15] MEDS: LEVEMIR (INSULIN DETEMIR) 1 UNITS/0.01ML SC SCH ×2 (09:12→20:37)
[2021-06-15] MEDS: TORSEMIDE 20 MG TAB PO SCH ×2 (09:13→17:02)
[2021-06-15] MEDS: HEPARIN SOD (PORCINE) 5000UNITS/ML 1ML VIAL/SYRINGE SC SCH ×2 (09:13→20:39)
[2021-06-15] MEDS: MAGNESIUM OXIDE 400MG TAB (MAG-OX) PO SCH ×3 (09:13→20:39)
[2021-06-15] MEDS: LACTULOSE 20 GM/30 ML SYRUP UD PO SCH ×3 (09:13→20:38)
[2021-06-15] MEDS: SUCRALFATE 1 GM TAB PO SCH ×4 (09:13→20:40)
[2021-06-15] MEDS: rifAXIMin 550 MG TAB (XIFAXAN) PO SCH ×2 (09:13→20:39)
[2021-06-15] MEDS: PANTOPRAZOLE 40MG TAB (PROTONIX) PO SCH ×2 (09:14→20:40)
[2021-06-15] MEDS: SPIRONOLACTONE 50 MG TAB PO SCH (09:14)
[2021-06-15] MEDS: HumaLOG INSULIN (NovoLOG) PER UNIT SC SCH ×4 (09:14→20:39)
--- NOTE | 2021-06-15 13:34 | IPNPDOC ---
Text Note Date of Service The patient was seen on 06/15/21. NOTE Subjective: Patient is a 65-year-old female who presented to hospital with hep atic encephalopathy. Patient was much more confused yesterday and received a lactulose enema. Patient is doing better today and is still groggy and slightly confused but is able to answer some questions appropriately. Patient did not have any complaints today. Review of systems: General: Patient denies fevers HEENT: Patient denies headaches Cardiovascular: Patient denies chest pain Respiratory: Patient denies shortness of breath, cough GI: Patient denies abdominal pain, nausea, vomiting, diarrhea : Patient denies increased frequency or pain with urination Extremities: Patient denies swelling or pain in extremities Neurological: Patient denies numbness or tingling in legs Physical exam: Vitals: See below General: Alert and oriented but slow to answer questions female who was sleeping but easily arousable when I walked in the room. Patient did not appear to be in any acute distress. HEENT: Normocephalic, atraumatic, moist mucous membranes. Neck: No lymphadenopathy or thyromegaly Cardiac: Regular rate and rhythm, no murmurs, normal S1, normal S2 Pulm: Clear to auscultation bilaterally. No wheezes, rhonchi, rales Abd: Nondistended, nontender to palpation, normal bowel sounds Ext: No edema bilateral lower extremities Labs: See below Imaging: No new imaging has been performed Assessment/plan: 65-year-old female with a history of cirrhosis secondary to Akins who was found to have hepatic encephalopathy when worsening hepatic encephalopathy yesterday which is slowly improved. 1. Hepatic encephalopathy. Patient had an elevated ammonia yesterday. Patient received lactulose enema. Continue with oral lactulose and rifaximin. Patient had some improvement in her mentation today we will continue to monitor. 2. Severe blood loss anemia. Patient has portal hypertensive gastropathy with gastric antral vascular ectasia. Patient had EGD and variceal banding performed on . Patient's hemoglobin and hematocrit are stable and we will continue to monitor. Continue with Reglan, Zofran, Protonix and sucralfate. 3. Acute kidney injury. Renal function slowly is improving. Continue her torsemide which is her home dose. 4. Liver cirrhosis secondary to Akins. Continue to follow-up with GI as an outpatient. 5. Hypotension. Continue midodrine at home dose. 6. Obesity complicating patient's care 7. Diabetes mellitus type 2. Continue basal insulin with sliding scale before meals and at bedtime. 8. Deconditioning. Continue recommendations from PT and OT DVT Prophylaxis: Teds and sequentials Disposition: Pending improvement of mentation. VS,Fishbone, I+O VS, Fishbone, I+O Laboratory Tests 06/15/21 06:04 Vital Signs Date Time Temp Pulse Resp B/P (MAP) Pulse Ox O2 Delivery O2 Flow Rate FiO2 06/15/21 06:00 98.1 87 16 138/70 (92) 94 Room Air 06/12/21 05:12 1.0 I&O- Last 24 Hours up to 6 AM 06/15/21 06:00 Intake Total 720 ml Output Total 2100 ml Balance -1380 ml KEANU CONTRERAS DO Jun 15, 2021 13:33
[2021-06-15 14:00] VITALS: BP 120/59
[2021-06-15 20:41] VITALS: BP 143/71
[2021-06-15 22:00] VITALS: BP 144/72
[2021-06-16] MEDS: METOCLOPRAMIDE INJ 10MG/2ML VIAL (J2765 PER 1) IV SCH ×2 (05:41→12:20)
[2021-06-16] MEDS: LEVOTHYROXINE 25MCG TABLET (0.025MG) PO SCH (05:41)
[2021-06-16 06:00] VITALS: BP 119/64
[2021-06-16 06:11] LABS: HEMATOCRIT 29.2 % (36.0-47.0); HEMOGLOBIN 9.5 g/dl (12.0-15.5); MEAN CORPUSCULAR HEMOGLOBIN 31.6 pg (27.0-33.0); MEAN CORPUSCULAR HGB CONC 32.5 g/dl (32.0-36.5); PLATELET COUNT, AUTOMATED 151 10^3/uL (150-450); RED BLOOD COUNT 3.01 10^6/uL (4.00-5.40); WHITE BLOOD COUNT 6.2 10^3/uL (4.0-10.0)
[2021-06-16 06:41] LABS: ALBUMIN 2.2 GM/DL (3.2-5.2); BILIRUBIN,TOTAL 0.9 MG/DL (0.2-1.0); CALCIUM LEVEL 8.3 MG/DL (8.8-10.2); CREATININE FOR GFR 1.4 MG/DL (0.55-1.30); GLOMERULAR FILTRATION RATE 40.4 (>45); POTASSIUM SERUM 4.3 MEQ/L (3.5-5.1); TOTAL PROTEIN 6.2 GM/DL (6.4-8.2)
[2021-06-16] MEDS: HumaLOG INSULIN (NovoLOG) PER UNIT SC SCH ×2 (07:30→12:20)
[2021-06-16] MEDS: PANTOPRAZOLE 40MG TAB (PROTONIX) PO SCH (08:39)
[2021-06-16] MEDS: LACTULOSE 20 GM/30 ML SYRUP UD PO SCH (08:39)
[2021-06-16] MEDS: SUCRALFATE 1 GM TAB PO SCH ×2 (08:40→12:20)
[2021-06-16] MEDS: rifAXIMin 550 MG TAB (XIFAXAN) PO SCH (08:40)
[2021-06-16] MEDS: MIDODRINE 5 MG TAB PO SCH (08:40)
[2021-06-16] MEDS: TORSEMIDE 20 MG TAB PO SCH (08:40)
[2021-06-16] MEDS: SPIRONOLACTONE 50 MG TAB PO SCH (08:41)
[2021-06-16] MEDS: HEPARIN SOD (PORCINE) 5000UNITS/ML 1ML VIAL/SYRINGE SC SCH (08:41)
[2021-06-16] MEDS: MAGNESIUM OXIDE 400MG TAB (MAG-OX) PO SCH (08:41)
[2021-06-16] MEDS: LEVEMIR (INSULIN DETEMIR) 1 UNITS/0.01ML SC SCH (08:42)
[2021-06-16 14:00] VITALS: BP 125/64
--- NOTE | 2021-06-16 15:57 | DS.PDOC ---
Discharge Summary General Date of Admission Jun 07, 2021 at 10:51 Date of Discharge 06/16/2021 Attending Physician: KEANU CONTRERAS DO Specialist/Consultants Involve: CHARMAINE HANNA MD Discharge Summary PROCEDURES PERFORMED DURING STAY: Upper GI endoscopy with band ligation of esophageal/gastric varices ADMITTING DIAGNOSES: 1. Hepatic encephalopathy. 2. Acute kidney injury 3. Liver cirrhosis secondary to CAMPBELL 4. Hyperammonemia 5. Hypertension 6. Anemia 7. Abdominal ascites 8. Morbid obesity 9. Diabetes DISCHARGE DIAGNOSES: 1. Hepatic encephalopathy, resolved 2. Acute kidney injury, improved 3. Liver cirrhosis secondary to CAMPBELL 4. Hyperammonemia 5. GI bleed secondary to esophageal varices, banded 6. Hypertension 7. Anemia 8. Ascites 9. Morbid obesity 10. Diabetes COMPLICATIONS/CHIEF COMPLAINT: Hepatic Encephalopathy. HISTORY OF PRESENT ILLNESS: Patient is a 65-year-old female with history of Campbell cirrhosis, obesity, history of hepatic encephalopathy, chronic hypertension, diabetes type 2 with neuropathy presented to hospital with altered mental status. According to the , patient developed mental confusion for the past few days became progressively worse. Patient denies any fevers, chills or diarrhea. Of note the patient recently had endoscopy and colonoscopy and ligation for esophageal varices. Her told me patient has been compliant with her medications. In beginning of May she had a paracentesis. In the ER she was found to have hemoglobin 8.8 no leukocytosis, creatinine 1.8, alkaline phosphatase 243, lactic acid 1.5 and ammonia level 89. Patient was admitted for further treatment.. HOSPITAL COURSE: Throughout the patient's hospitalization, patient decreased hemoglobin that was trended. Patient's hemoglobin continued to drop and gastroenterology was consulted for upper endoscopy. Upper endoscopy was performed on 06/09/2021 and showed a large amount of food residue in the stomach so was unable to be definitive. Repeat upper endoscopy the next day, 06/10/2021 showed a bleeding gastric vascular ectasia that was coagulated using argon plasma. Patient was shown to have moderate portal hypertensive gastropathy in the gastric fundus. Grade 2 varices were found in the lower third of the esophagus. There were medium in size. 2 bands were successfully placed with complete eradication, resulting in deflation of varices. Patient tolerated these procedures well. Patient was transfused 2 units of blood and her hemoglobin recovered into the mid 9 range. Patient's hemoglobin was stable for the final 72 hours of her hospitalization. On 06/13/2021, patient became acutely encephalopathic with pneumonia greater than 100. Patient was having difficulty mentating. In talking with the patient on her final day of hospitalization, she states that she had become constipated and did not have a bowel movement on the day prior. Patient received lactulose enema and her mentation improved over the past few days. Patient's kidney function also improved. Patient work with physical therapy and on 06/16/2021, patient was deemed safe and ready for discharge. Patient was discharged on 06/16/2021 with strict instructions to make sure she is taking her lactulose in order to produce 2-3 soft bowel movements a day. DISCHARGE MEDICATIONS: Please see below. ALLERGIES: Please see below. PHYSICAL EXAMINATION ON DISCHARGE: VITAL SIGNS: Please see below. General: Alert and oriented female patient who was sitting up in bed when I walked in the room. Patient not appear to be in any acute distress. HEENT: Normocephalic, atraumatic, moist mucous membranes. Neck: No lymphadenopathy or thyromegaly Cardiac: Regular rate and rhythm, no murmurs, normal S1, normal S2 Pulm: Clear to auscultation bilaterally. No wheezes, rhonchi, rales Abd: Nondistended, nontender to palpation, normal bowel sounds Ext: No edema bilateral lower extremities LABORATORY DATA: Please see below. IMAGING: CT of the head performed without contrast on 06/07/2021 was reported to show mild generalized volume loss and vascular calcification. Small vessel changes. No acute intracranial abnormality. CT of the abdomen and pelvis without contrast performed on 06/07/2021 resupported show increased ascites otherwise no significant change from prior exam with findings described above as cirrhotic features the liver status quo, splenomegaly status quo, probable mesenteric adenopathy difficult eval evaluate without contrast. Paracentesis performed on 06/08/2021 is reported to show ultrasound-guided paracentesis yielding 3000 mL of yellow fluid. Duplex lower extremity ultrasound on the right performed on 06/10/2021 was reported to show no evidence of DVT in the right lower extremity femoral- popliteal veins. No DVT in the visible portion of the calf veins. PROGNOSIS: Fair ACTIVITY: As tolerated. DIET: 2 g sodium DISCHARGE PLAN: Discharge home DISPOSITION: Home, Self-Care. DISCHARGE INSTRUCTIONS: 1. Follow-up with primary care provider within 3 to 5 days discharge. 2. Follow-up with gastroenterology within 1 to 2 weeks of discharge 3. Follow-up with nephrology within 1 to 2 weeks of discharge 4. Continue take lactulose to produce 2-3 soft bowel movements a day 5. Return to the emergency department if your symptoms worsen ITEMS TO FOLLOWUP ON ON OUTPATIENT: 1. Continue monitoring for signs of mental status changes, care for cirrhosis. DISCHARGE CONDITION: Stable. TIME SPENT ON DISCHARGE: 35 minutes. Vital Signs/I&Os Vital Signs Date Time Temp Pulse Resp B/P (MAP) Pulse Ox O2 Delivery O2 Flow Rate FiO2 06/16/21 14:00 98.2 88 16 125/64 (84) 97 Room Air 06/12/21 05:12 1.0 I&O- Last 24 Hours up to 6 AM 06/16/21 06:00 Intake Total 720 ml Output Total 1150 ml Balance -430 ml Laboratory Data Labs 24H Laboratory Tests 2 06/15/21 16:16: Bedside Glucose (Misc Panel) 141H 06/15/21 19:35: Bedside Glucose (Misc Panel) 144H 06/16/21 05:49: Nucleated Red Blood Cells % (auto) 0.0, Anion Gap 3L, Glomerular Filtration Rate 40.4L, Calcium Level 8.3L, Total Bilirubin 0.9, Aspartate Amino Transf (AST/ SGOT) 51H, Alanine Aminotransferase (ALT/SGPT) 18, Alkaline Phosphatase 194H, Ammonia 60H, Total Protein 6.2L, Albumin 2.2L, Albumin/Globulin Ratio 0.6L 06/16/21 11:39: Bedside Glucose (Misc Panel) 179H CBC/BMP Laboratory Tests 06/16/21 05:49 FSBS Laboratory Tests Test 06/15/21 16:16 06/15/21 19:35 06/16/21 11:39 Range/Units Bedside Glucose (Misc Panel) 141 144 179 80-115 MG/DL Microbiology Microbiology 06/08/21 Acid Fast Stain, Received Pending 06/08/21 Mycobacterial Culture, Received Pending 06/08/21 Fungal Smear, Received Pending 06/08/21 Fungal Culture, Received Pending 06/08/21 Gram Stain - Final, Complete 06/08/21 Body Fluid Culture - Final, Complete 06/08/21 Anaerobic Culture - Final, Complete 06/08/21 Stool Occult Blood (REI) - Final, Complete Discharge Medications Scheduled Allopurinol (Allopurinol) 100 Mg Tablet, 100 MG PO DAILY, (Reported) Ascorbic Acid (Vitamin C) 250 Mg Tablet, 250 MG PO DAILY, (Reported) Cholecalciferol (Vitamin D3) (Vitamin D3) 1,000 Unit Tablet, 1,000 UNITS PO DAILY, (Reported) Gabapentin (Gabapentin) 300 Mg Capsule, 100 MG PO BID Insulin Human Lispro (Novolog) 100 U/Ml Inj, 1 DOSE SC BID, (Reported) PER SLIDING SCALE Lactulose (Lactulose) 10 Gm/15 Ml Solution, 30 ML PO TID, (Reported) Levothyroxine Sodium (Levothyroxine Sodium) 25 Mcg Tablet, 25 MCG PO DAILY, (Reported) Magnesium Oxide (Magnesium Oxide) 400 Mg Tablet, 400 MG PO TID, (Reported) Midodrine HCl (Midodrine HCl) 10 Mg Tablet, 15 MG PO TID, (Reported) Pantoprazole Sodium (Pantoprazole Sodium) 40 Mg Tablet.dr, 40 MG PO BID, (Reported) MORNING AND NOON Rifaximin (Xifaxan) 550 Mg Tablet, 550 MG PO BID, (Reported) Spironolactone (Aldactone) 50 Mg Tablet, 50 MG PO DAILY Sucralfate (Sucralfate) 1 Gm Tablet, 1 GM PO ACHS, (Reported) Torsemide (Torsemide) 10 Mg Tablet, 20 MG PO BID Allergies Coded Allergies: No Known Drug Allergies (Verified Allergy, Unknown, 01/19/21) KEANU CONTRERAS DO Jun 16, 2021 15:57
== END 2021-06-16 15:00 | disposition home or self-care (01) | DRG 441 ==
LOC: M ED 08:05 → M ED INP 10:51 → ENRESERV 13:21 → M MSPAV 14:15
PROVIDERS: ADMIT Internal Medicine; ATTEND Family Medicine
PROC: 0W9G3ZZ Drainage of Peritoneal Cavity, Percutaneous Approach (ICD-10-PCS; principal; 2021-06-08 15:30)
PROC: 0DJ08ZZ Inspection of Upper Intestinal Tract, Via Natural or Artificial Opening Endoscopic (ICD-10-PCS; 2021-06-09)
PROC: 0W3P8ZZ Control Bleeding in Gastrointestinal Tract, Via Natural or Artificial Opening Endoscopic (ICD-10-PCS; 2021-06-10)
PROC: 30233N1 Transfusion of Nonautologous Red Blood Cells into Peripheral Vein, Percutaneous Approach (ICD-10-PCS; 2021-06-11)
DX: K72.00 Acute and subacute hepatic failure without coma (principal); I85.11 Secondary esophageal varices with bleeding; K31.811 Angiodysplasia of stomach and duodenum with bleeding; N17.9 Acute kidney failure, unspecified; E72.20 Disorder of urea cycle metabolism, unspecified; R18.8 Other ascites; K76.6 Portal hypertension; D62 Acute posthemorrhagic anemia; K74.60 Unspecified cirrhosis of liver; K75.81 Nonalcoholic steatohepatitis (NASH); I95.89 Other hypotension; D53.9 Nutritional anemia, unspecified; K31.89 Other diseases of stomach and duodenum; E78.5 Hyperlipidemia, unspecified; K21.9 Gastro-esophageal reflux disease without esophagitis; E66.9 Obesity, unspecified; L40.50 Arthropathic psoriasis, unspecified; Z68.37 Body mass index [BMI] 37.0-37.9, adult; E11.40 Type 2 diabetes mellitus with diabetic neuropathy, unspecified; Z79.899 Other long term (current) drug therapy; Z79.4 Long term (current) use of insulin; Z90.49 Acquired absence of other specified parts of digestive tract; Z86.010 Personal history of colon polyps; Z98.49 Cataract extraction status, unspecified eye; Z98.84 Bariatric surgery status

== ENCOUNTER 2021-06-20 20:05 | Inpatient (IN) | payer OTHER ==
[~2021-06-20] VITALS: Ht 162.6 cm; Wt 78.6 kg
[~2021-06-20 20:05] MED LIST changes: +ALDA50TA2 PO; +PANT-23 PO; +SUCR1TAB56 PO
[2021-06-20 21:52] LABS: BASO # 0.1 10^3/uL (0.0-0.2); BASO % 0.8 % (0.0-1.0); EOS # 0.2 10^3/uL (0.0-0.5); EOS % 2.1 % (0.0-3.0); HEMATOCRIT 28.3 % (36.0-47.0); HEMOGLOBIN 9.2 g/dl (12.0-15.5); LYMPH # 0.9 10^3/uL (1.5-5.0); LYMPH % 13.1 % (24.0-44.0); MEAN CORPUSCULAR HEMOGLOBIN 31.6 pg (27.0-33.0); MEAN CORPUSCULAR HGB CONC 32.5 g/dl (32.0-36.5); MEAN CORPUSCULAR VOLUME 97.3 fl (80.0-96.0); MONO # 1.1 10^3/uL (0.0-0.8); MONO % 15.5 % (2.0-8.0); NEUTROPHILS # 4.8 10^3/uL (1.5-8.5); NEUTROPHILS % 68.1 % (36.0-66.0); PLATELET COUNT, AUTOMATED 158 10^3/uL (150-450); RED BLOOD COUNT 2.91 10^6/uL (4.00-5.40); WHITE BLOOD COUNT 7.1 10^3/uL (4.0-10.0)
--- NOTE | 2021-06-20 22:03 | REPVR ---
PROCEDURE INFORMATION: Exam: CT Head Without Contrast Exam date and time: 06/20/2021 9:27 PM Age: 65 years old Clinical indication: Altered mental status/memory loss TECHNIQUE: Imaging protocol: Computed tomography of the head without contrast. Radiation optimization: All CT scans at this facility use at least one of these dose optimization techniques: automated exposure control; mA and/or kV adjustment per patient size (includes targeted exams where dose is matched to clinical indication); or iterative reconstruction. COMPARISON: CT Head without contrast 06/07/2021 8:46 AM FINDINGS: Brain: Normal. No hemorrhage. Unremarkable white matter. No mass effect. Cerebral ventricles: No ventriculomegaly. Paranasal sinuses: Visualized sinuses are unremarkable. No fluid levels. Mastoid air cells: Visualized mastoid air cells are well aerated. Bones/joints: Unremarkable. No acute fracture. Soft tissues: Unremarkable. IMPRESSION: No acute intracranial abnormality. Electronically signed by: Mert Cho On 06/20/2021 22:02:59 PM
[2021-06-20 22:48] LABS: ALBUMIN 2.3 GM/DL (3.2-5.2); BILIRUBIN,DIRECT 0.3 MG/DL (0.0-0.2); BILIRUBIN,TOTAL 0.7 MG/DL (0.2-1.0); THYROID STIMULATING HORMONE 2.74 uIU/ML (0.358-3.740); TOTAL PROTEIN 6.5 GM/DL (6.4-8.2)
--- NOTE | 2021-06-20 23:09 | HPEPDOC ---
[facility] Medical History & Physical Date of Admission Jun 20, 2021 Date of Service: Jun 20, 2021 Attending Physician: KELVIN KEMP MD History and Physical CHIEF COMPLAINT: [65 y/o female c/o ams that began today] HISTORY OF PRESENT ILLNESS: [This is a 65 y/o female with CAMPBELL cirrhosis, esophageal varices, recurrent hepatic encephalopathy, cad s/p stenting, ckd3, dm2, htn who was brought to the hospital today for acutely altered mental status by her . Patient not able to provide me any history as she is obtunded, only able to answer very short yes/no questions, and only answering yes. History is gathered from the chart and ED staff. Patient's apparently told ED staff that her mental status began to decline at around 1800 on 06/20 and decided to bring her to the ED for evaluation believing that her ammonia must be elevated. Patient's ammonia found to be 151 in the emergency department. ] PAST MEDICAL HISTORY: 1. [See HPI PAST SURGICAL HISTORY: 1. [B/l cataract removal]. 2. Tonsillectomy. 3. [EGD with esophageal varices banding 4. Cardiac stenting 5. Cholecystectomy 6. Right TKA 7. Right ankle ORIF 8 Colonoscopy with polypectomy 9. Paracentesis ]. SOCIAL HISTORY: Tobacco use:[Former] ETOH: [Occasional] Illicit drug use: FAMILY HISTORY: Mother - afib, dm ALLERGIES: Please see below. REVIEW OF SYSTEMS: Unable to obtain accurate ros d/t mentation HOME MEDICATIONS: Please see below. PHYSICAL EXAMINATION: VITAL SIGNS: Please see below. GENERAL APPEARANCE: [This is an obtunded 65 y/o female. She responds to loudly asked questions and physical stimuli. She is not oriented. She does not appear to be in any distress.]. HEENT: [No mass or lesion. No scleral icterus. Nares patent. oral mucosa dry.]. CARDIOVASCULAR: [Regular rate, rhythm. 3/6 systolic blowing murmur appreciated.]. LUNGS: [Good air flow b/l. No wheezing, rales, rhonchi.]. ABDOMEN: [Firm, distended. Nontender]. MUSCULOSKELETAL: [No joint deformity.]. EXTREMITIES: [No pedal edema appreciated. No overlying skin changes. Pulses intact.]. NEUROLOGICAL: [Patient is obtunded.]. PSYCHIATRIC: [Patient is obtunded.]. LABORATORY DATA: See below. IMAGING: [Head CT: FINDINGS: Brain: Normal. No hemorrhage. Unremarkable white matter. No mass effect. Cerebral ventricles: No ventriculomegaly. Paranasal sinuses: Visualized sinuses are unremarkable. No fluid levels. Mastoid air cells: Visualized mastoid air cells are well aerated. Bones/joints: Unremarkable. No acute fracture. Soft tissues: Unremarkable. IMPRESSION: No acute intracranial abnormality. ] MICROBIOLOGY: Please see below. ASSESSMENT: [This is a 65 y/o female with CAMPBELL cirrhosis, esophageal varices, recurrent hepatic encephalopathy, cad s/p stenting, ckd3, dm2, htn who was brought to the hospital today for acutely altered mental status by her . Patient not able to provide me any history as she is obtunded, only able to answer very short yes/no questions, and only answering yes.]. . PLAN: 1. [Hepatic Encephalopathy - Unclear etiology. Patient's ammonia acutely elevated to 151 - Suspicion for sbp low - no white count, fever, abdominal pain, other sepsis criteria - Patient currently too obtunded for po meds - will keep npo and give pr lactulose - Holding oral meds for now - Neuro checks - Tele and pulse oximetry - continue rifaximin, midodrine, spironolactone once alert - Liver US ordered to assess need for paracentesis - patient has moderate ascites on clinical exam - Admit to pcu for tx 2. DM2 - sliding scale coverage - hypoglycemic protocol - holding gabapentin d/t mentation 3. Hx of varices, gerd - continue sucralfate once alert - will give iv protonix for now - can switch back to at home oral omeprazole once alert 4. HTN - holding torsemide d/t mentation 5. Gout - holding allopurinol d/t mentation 6. Hypothyroidism - will give iv synthroid for now - can witch back to oral once alert DVT prophylaxis - heparin]. Vital Signs Vital Signs Date Time Temp Pulse Resp B/P (MAP) Pulse Ox O2 Delivery O2 Flow Rate FiO2 06/20/21 21:50 74 14 100 Room Air 06/20/21 21:45 156/68 (97) 06/20/21 20:25 98.1 Laboratory Data Labs 24H Laboratory Tests 2 06/20/21 21:24: Immature Granulocyte % (Auto) 0.4, Neutrophils (%) (Auto) 68.1H, Lymphocytes (%) (Auto) 13.1L, Monocytes (%) (Auto) 15.5H, Eosinophils (%) (Auto) 2.1, Basophils (%) (Auto) 0.8, Neutrophils # (Auto) 4.8, Lymphocytes # (Auto) 0.9L, Monocytes # (Auto) 1.1H, Eosinophils # (Auto) 0.2, Basophils # (Auto) 0.1, Nucleated Red Blood Cells % (auto) 0.0, Total Bilirubin 0.7, Direct Bilirubin 0.3H, Aspartate Amino Transf (AST/SGOT) 56H, Alanine Aminotransferase (ALT/SGPT) 22, Alkaline Phosphatase 317H, Ammonia 151H, Total Protein 6.5, Albumin 2.3L, Albumin/Globulin Ratio 0.5L, Thyroid Stimulating Hormone (TSH) 2.740 06/20/21 22:11: Urine Color YELLOW, Urine Appearance CLEAR, Urine pH 5.0, Urine Specific [place] 1.010, Urine Protein NEGATIVE, Urine Glucose (UA) 1+H, Urine Ketones NEGATIVE, Urine Blood NEGATIVE, Urine Nitrite NEGATIVE, Urine Bilirubin NEGATIVE, Urine Urobilinogen 0.2, Urine Leukocyte Esterase NEGATIVE, Urine WBC (Auto) 1, Urine RBC (Auto) 1, Urine Hyaline Casts (Auto) 6, Urine Bacteria (Auto) NEGATIVE, Urine Squamous Epithelial Cells 1, Urine Sperm (Auto) CBC/BMP Laboratory Tests 06/20/21 21:24 Home Medications Scheduled Allopurinol (Allopurinol) 100 Mg Tablet, 100 MG PO DAILY Ascorbic Acid (Vitamin C) 250 Mg Tablet, 250 MG PO DAILY Cholecalciferol (Vitamin D3) (Vitamin D3) 1,000 Unit Tablet, 1,000 UNITS PO DAILY Gabapentin (Gabapentin) 100 Mg Capsule, 100 MG PO BID Insulin Human Lispro (Novolog) 100 U/Ml Inj, 1 DOSE SC BID PER SLIDING SCALE Lactulose (Lactulose) 10 Gm/15 Ml Solution, 30 ML PO TID Levothyroxine Sodium (Levothyroxine Sodium) 25 Mcg Tablet, 25 MCG PO DAILY Magnesium Oxide (Magnesium Oxide) 400 Mg Tablet, 400 MG PO TID Midodrine HCl (Midodrine HCl) 10 Mg Tablet, 15 MG PO TID Omeprazole (Omeprazole) 40 Mg Capsule.dr, 40 MG PO DAILY Rifaximin (Xifaxan) 550 Mg Tablet, 550 MG PO BID Spironolactone (Spironolactone) 50 Mg Tablet, 50 MG PO DAILY Sucralfate (Sucralfate) 1 Gm Tablet, 1 GM PO ACHS Torsemide (Torsemide) 20 Mg Tablet, 20 MG PO BID Scheduled PRN Tizanidine HCl (Tizanidine HCl) 4 Mg Tablet, 4 MG PO TID PRN for SPASMS Allergies Coded Allergies: No Known Drug Allergies (Verified Allergy, Unknown, 01/19/21) A-FIB/CHADSVASC A-FIB History Current/History of A-Fib/PAF?: No ANUPAM GONZALES Jun 20, 2021 23:09
[2021-06-20] MEDS ORDERED: GLUCAGON INJ 1MG VIAL SC PRN (23:10)
[2021-06-20] MEDS ORDERED: DEXTROSE 50% 50 ML SYRINGE IV PRN (23:10)
[2021-06-20] MEDS ORDERED: GLUCOSE 4GM CHEW TABLET PO PRN (23:10)
[2021-06-20] MEDS ORDERED: SPIR50TA4 PO (23:30)
[2021-06-20] MEDS ORDERED: TIZA4TAB4 PO (23:30)
[2021-06-20] MEDS ORDERED: HOME MED LIST COMPLETE! XX SCH (23:30)
[2021-06-20] MEDS ORDERED: TORS20TA2 PO (23:30)
[2021-06-20] MEDS ORDERED: OMEP-221 PO (23:30)
[2021-06-20] MEDS ORDERED: LACTULOSE 20 GM/30 ML SYRUP UD PR ONE ×2 (23:30→23:45)
[2021-06-20] MEDS ORDERED: GABA-1171 PO (23:30)
[2021-06-20 23:39] LABS: INR 1.23
[2021-06-20 23:40] LABS: PARTIAL THROMBOPLASTIN TIME 36.8 SECONDS (25.9-37.0)
[2021-06-20] MEDS: HumaLOG INSULIN (NovoLOG) PER UNIT SC SCH (23:40)
[2021-06-21] VITALS (9 sets, daily range): BP systolic 120–166; BP diastolic 61–82
--- NOTE | 2021-06-21 00:12 | REPVR ---
PROCEDURE INFORMATION: Exam: US Abdomen; Limited Exam date and time: 06/20/2021 11:22 PM Age: 65 years old Clinical indication: Screening exam; Other: Eval for ascites; Additional info: Hepatic encephalopathy, please assess for ascites TECHNIQUE: Imaging protocol: US abdomen. Real time ultrasound with image documentation. Limited exam focused on the region of clinical interest. COMPARISON: Abdomen, limited US 04/19/2021 11:30 AM FINDINGS: Small to moderate volume of ascites is visualized involving all 4 quadrants. No loculated fluid collection is visualized. IMPRESSION: Small to moderate volume of ascites. Electronically signed by: Woody Simmons On 06/21/2021 00:11:25 AM
[2021-06-21 02:34] LABS: RSV AMPLIFICATION NEGATIVE (NEGATIVE)
[2021-06-21 03:22] LABS: CALCIUM LEVEL 8.1 MG/DL (8.8-10.2); CREATININE FOR GFR 2.24 MG/DL (0.55-1.30); GLOMERULAR FILTRATION RATE 23.5 (>45); PHOSPHORUS LEVEL 2.7 MG/DL (2.5-4.9); POTASSIUM SERUM 4.9 MEQ/L (3.5-5.1)
[2021-06-21] MEDS: LACTULOSE 20 GM/30 ML SYRUP UD PO SCH ×3 (06:00→18:39)
[2021-06-21] MEDS ORDERED: LACTULOSE 20 GM/30 ML SYRUP UD PR SCH (06:00)
[2021-06-21 07:27] LABS: HEMATOCRIT 27.5 % (36.0-47.0); HEMOGLOBIN 8.9 g/dl (12.0-15.5); MEAN CORPUSCULAR HEMOGLOBIN 31.3 pg (27.0-33.0); MEAN CORPUSCULAR HGB CONC 32.4 g/dl (32.0-36.5); MEAN CORPUSCULAR VOLUME 96.8 fl (80.0-96.0); PLATELET COUNT, AUTOMATED 153 10^3/uL (150-450); RED BLOOD COUNT 2.84 10^6/uL (4.00-5.40); WHITE BLOOD COUNT 5.9 10^3/uL (4.0-10.0)
[2021-06-21] MEDS: HumaLOG INSULIN (NovoLOG) PER UNIT SC SCH ×3 (07:48→18:40)
[2021-06-21 07:54] LABS: ALBUMIN 2.3 GM/DL (3.2-5.2); BILIRUBIN,TOTAL 1.1 MG/DL (0.2-1.0); CALCIUM LEVEL 8.7 MG/DL (8.8-10.2); CREATININE FOR GFR 1.84 MG/DL (0.55-1.30); GLOMERULAR FILTRATION RATE 29.5 (>45); MAGNESIUM LEVEL 2.4 MG/DL (1.8-2.4); POTASSIUM SERUM 4.3 MEQ/L (3.5-5.1); TOTAL PROTEIN 6.1 GM/DL (6.4-8.2)
[2021-06-21] MEDS ORDERED: LEVOTHYROXINE 100MCG (0.1MG) VIAL IV SCH (09:00)
[2021-06-21] MEDS ORDERED: PANTOPRAZOLE 40MG VIAL (C9113 PER 1) IV SCH (09:00)
[2021-06-21] MEDS: SPIRONOLACTONE 50 MG TAB PO SCH (10:23)
[2021-06-21] MEDS: MIDODRINE 5 MG TAB PO SCH ×3 (10:23→15:24)
[2021-06-21] MEDS: HEPARIN SOD (PORCINE) 5000UNITS/ML 1ML VIAL/SYRINGE SQ SCH ×2 (10:23→20:48)
[2021-06-21] MEDS: TORSEMIDE 20 MG TAB PO SCH ×2 (10:23→18:40)
[2021-06-21] MEDS: LEVOTHYROXINE 25MCG TABLET (0.025MG) PO SCH (10:24)
[2021-06-21] MEDS: rifAXIMin 550 MG TAB (XIFAXAN) PO SCH ×2 (10:24→20:47)
[2021-06-21] MEDS: SUCRALFATE 1 GM TAB PO SCH ×3 (12:36→20:47)
[2021-06-21] MEDS ORDERED: SLF 3 ML SYR IV PRN (12:45)
[2021-06-21] MEDS: SLF 3 ML SYR IV SCH ×2 (14:00→20:48)
--- NOTE | 2021-06-21 14:13 | IPNPDOC ---
Text Note Date of Service The patient was seen on 06/21/21. NOTE SUBJECTIVE: -No acute events. -Starting to wake up, was reportedly very lethargic before OBJECTIVE: VITAL SIGNS: Please see below. GENERAL APPEARANCE: NAD, lethargic but awake on voice, oriented to self and hospital HEENT: NCAT, anicteric sclerae, EOMI, MMM CARDIOVASCULAR: RRR. 3/6 systolic blowing murmur appreciated LUNGS: CTAB without wheezing, rales or rhonchi ABDOMEN: Obese,mildly distended. Nontender EXTREMITIES: No pedal edema appreciated. No overlying skin changes. Pulses intact. NEUROLOGICAL: Speech is clear, still lethargic though, CN3-12 appear intact, moving all extremities LABORATORY DATA: Reviewed NH3 now downtrended to 55 Na 140 K 4.3 Cr 1.84 IMAGING: Head CT: FINDINGS: Brain: Normal. No hemorrhage. Unremarkable white matter. No mass effect. Cerebral ventricles: No ventriculomegaly. Paranasal sinuses: Visualized sinuses are unremarkable. No fluid levels. Mastoid air cells: Visualized mastoid air cells are well aerated. Bones/joints: Unremarkable. No acute fracture. Soft tissues: Unremarkable. IMPRESSION: No acute intracranial abnormality. Liver US: Small to moderate volume of ascites is visualized involving all 4 quadrants. No loculated fluid collection is visualized. IMPRESSION: Small to moderate volume of ascites. MICROBIOLOGY: Please see below. ASSESSMENT: 65 y/o W with CAMPBELL cirrhosis d/b esophageal varices, recurrent hepatic encephalopathy and ascites, cad s/p stenting, ckd3, dm2, htn who was brought to the hospital for altered mentation and now admitted for hepatic encephalopathy. PLAN: Hepatic Encephalopathy: improving - Unclear precipitant. Patient's ammonia was acutely elevated to 151 and now downtrended to 55 this morning - Low suspicion for infection - no leukocytosis, fever, abdominal pain, UA blan d. - continue rifaximin, midodrine, spironolactone and lactulose 30mg Q6H - Liver US showed small to moderate ascites 2. DM2 - sliding scale coverage - hypoglycemic protocol - holding gabapentin d/t mentation 3. Hx of varices, gerd - continue sucralfate once alert - continue protonix 4. HTN - holding torsemide d/t mentation 5. Gout - holding allopurinol d/t mentation 6. Hypothyroidism - will give iv synthroid for now - can witch back to oral once alert DVT prophylaxis - heparin SC VS,Fishbone, I+O VS, Fishbone, I+O Laboratory Tests 06/20/21 21:24 06/21/21 07:16 Vital Signs Date Time Temp Pulse Resp B/P (MAP) Pulse Ox O2 Delivery O2 Flow Rate FiO2 06/21/21 07:00 14 126/57 (80) 98 Room Air 06/21/21 06:50 74 06/20/21 20:25 98.1 GILLIAN ZAPATA MD Jun 21, 2021 08:46
[2021-06-21] MEDS ORDERED: tiZANidine 4 MG TAB PO PRN (14:20)
[2021-06-21] MEDS: ASCORBIC ACID 250 MG TAB PO SCH (15:23)
[2021-06-21] MEDS: VITAMIN D 1,000 INTERNATIONAL UNITS TABLET PO SCH (15:24)
[2021-06-21] MEDS: allopurinoL 100 MG TAB PO SCH (15:24)
[2021-06-21] MEDS: MAGNESIUM OXIDE 400MG TAB (MAG-OX) PO SCH ×2 (15:24→20:47)
--- NOTE | 2021-06-21 19:17 | ECGEPIP ---
[facility] - ED Test Date: 2021-06-20 Pat Name: AUDREY VILLALOBOS Department: Room: [place] [address] Gender: Female [employer] Manager: DEEPTHI : 1955 Requested By: HUY Cintron Order Number: [id number] Reading MD: Therese Mohr Measurements Intervals [place] Rate: 74 P: 16 [place]: 132 QRS: -37 QRSD: 114 T: 73 QT: 432 QTc: 479 Interpretive Statements Normal sinus rhythm Left axis deviation Moderate voltage criteria for LVH, may be normal variant ( R in aVL , [place] product ) lafb similar 06/10/21 Electronically Signed on 06-21-2021 19:17:12 EDT by Therese Mohr
[2021-06-21] MEDS ORDERED: GABAPENTIN 100 MG CAP PO SCH (21:00)
[2021-06-21] MEDS ORDERED: HumaLOG INSULIN (NovoLOG) PER UNIT SC SCH (21:00)
[2021-06-22 00:05] VITALS: BP 108/53
[2021-06-22] MEDS: LACTULOSE 20 GM/30 ML SYRUP UD PO SCH ×3 (00:11→11:37)
[2021-06-22] MEDS ORDERED: FIORICET TAB PO ONE (00:55)
[2021-06-22 04:00] VITALS: BP 104/53
[2021-06-22 05:22] LABS: HEMATOCRIT 23.7 % (36.0-47.0); HEMOGLOBIN 7.6 g/dl (12.0-15.5); MEAN CORPUSCULAR HEMOGLOBIN 30.9 pg (27.0-33.0); MEAN CORPUSCULAR HGB CONC 32.1 g/dl (32.0-36.5); MEAN CORPUSCULAR VOLUME 96.3 fl (80.0-96.0); PLATELET COUNT, AUTOMATED 133 10^3/uL (150-450); RED BLOOD COUNT 2.46 10^6/uL (4.00-5.40); WHITE BLOOD COUNT 4.1 10^3/uL (4.0-10.0)
[2021-06-22 05:53] LABS: ALBUMIN 2.1 GM/DL (3.2-5.2); BILIRUBIN,TOTAL 0.9 MG/DL (0.2-1.0); CALCIUM LEVEL 8.2 MG/DL (8.8-10.2); CREATININE FOR GFR 1.78 MG/DL (0.55-1.30); GLOMERULAR FILTRATION RATE 30.6 (>45); MAGNESIUM LEVEL 2.3 MG/DL (1.8-2.4); POTASSIUM SERUM 4.6 MEQ/L (3.5-5.1); TOTAL PROTEIN 5.5 GM/DL (6.4-8.2)
[2021-06-22] MEDS: LEVOTHYROXINE 25MCG TABLET (0.025MG) PO SCH (06:05)
[2021-06-22] MEDS: SLF 3 ML SYR IV SCH (06:08)
[2021-06-22] MEDS ORDERED: LACTULOSE 20 GM/30 ML SYRUP UD PR ONE (07:30)
[2021-06-22 08:04] VITALS: BP 104/52
[2021-06-22] MEDS: allopurinoL 100 MG TAB PO SCH (08:50)
[2021-06-22] MEDS: ASCORBIC ACID 250 MG TAB PO SCH (08:50)
[2021-06-22] MEDS: rifAXIMin 550 MG TAB (XIFAXAN) PO SCH (08:50)
[2021-06-22] MEDS: SPIRONOLACTONE 50 MG TAB PO SCH (08:50)
[2021-06-22] MEDS: HumaLOG INSULIN (NovoLOG) PER UNIT SC SCH ×2 (08:50→11:37)
[2021-06-22] MEDS: MIDODRINE 5 MG TAB PO SCH ×2 (08:51→11:37)
[2021-06-22] MEDS: SUCRALFATE 1 GM TAB PO SCH ×2 (08:51→11:37)
[2021-06-22] MEDS: HEPARIN SOD (PORCINE) 5000UNITS/ML 1ML VIAL/SYRINGE SQ SCH (08:52)
[2021-06-22] MEDS: VITAMIN D 1,000 INTERNATIONAL UNITS TABLET PO SCH (08:53)
[2021-06-22] MEDS: MAGNESIUM OXIDE 400MG TAB (MAG-OX) PO SCH (08:54)
[2021-06-22] MEDS ORDERED: OMEPRAZOLE 20 MG CAP PO SCH (09:00)
[2021-06-22] MEDS ORDERED: LACT20EL PO (12:02)
--- NOTE | 2021-06-22 13:20 | DS.PDOC ---
Discharge Summary General Date of Admission Jun 20, 2021 at 23:01 Date of Discharge 06/22/2021 Attending Physician: GILLIAN ZAPATA MD Discharge Summary PROCEDURES PERFORMED DURING STAY: None ADMITTING DIAGNOSES: Hepatic encephalopathy DISCHARGE DIAGNOSES: Hepatic encephalopathy CAMPBELL cirrhosis d/b esophageal varices, recurrent hepatic encephalopathy Mild to moderate ascites cad s/p stenting AIDA on ckd3 dm2 htn COMPLICATIONS/CHIEF COMPLAINT: Hepatic Encephalopathy. HISTORY OF PRESENT ILLNESS: 65 y/o female with CAMPBELL cirrhosis, esophageal varices, recurrent hepatic e ncephalopathy, cad s/p stenting, ckd3, dm2, htn who was brought to the hospital for acute altered mental status by her . She arrived obtunded and slowly improved to where she could give very short yes/no answers. Patient's apparently told ED staff that her mental status began to decline at around 1800 on 06/20 and decided to bring her to the ED for evaluation believing that her ammonia must be elevated. HOSPITAL COURSE: While in the ED, workup was notable for hyperammonemia to 156 and mild AIDA on CKD3. She was given rectal lactulose with good effect and eventual resolution of encephalopathy and by day 2 AM she was awake, fully oriented and otherwise nonfocal. She had mild to moderate ascites but otherwise no abdominal complaints, no dysuria, bland UA, breathing comfortably on room air and no leukocytosis to suggest infection. She was given albumin and continued on her home diuretic therapy as well as increased lactulose dosing to QID from TID with her BID rifaximin. She is now being discharged home with close PCP follow up as well as GI follow up. DISCHARGE MEDICATIONS: Please see below. ALLERGIES: Please see below. PHYSICAL EXAMINATION ON DISCHARGE: VITAL SIGNS: Please see below. GENERAL APPEARANCE: NAD, AOx3 HEENT: NCAT, anicteric sclerae, EOMI, MMM CARDIOVASCULAR: RRR. 3/6 systolic blowing murmur appreciated LUNGS: CTAB without wheezing, rales or rhonchi ABDOMEN: Obese, normoactive sounds, NTND EXTREMITIES: No pedal edema appreciated. No overlying skin changes. Pulses intact. NEUROLOGICAL: Speech is clear, CN3-12 appear intact, moving all extremities PSYCH: AOx3 LABORATORY DATA: Please see below. IMAGING: Head CT: Brain: Normal. No hemorrhage. Unremarkable white matter. No mass effect. Cerebral ventricles: No ventriculomegaly. Paranasal sinuses: Visualized sinuses are unremarkable. No fluid levels. Mastoid air cells: Visualized mastoid air cells are well aerated. Bones/joints: Unremarkable. No acute fracture. Soft tissues: Unremarkable. IMPRESSION: No acute intracranial abnormality. Liver US: Small to moderate volume of ascites is visualized involving all 4 quadrants. No loculated fluid collection is visualized. PROGNOSIS: Good, however is high risk for readmission. ACTIVITY: As tolerated DIET: consistent carb DISCHARGE PLAN: Home with QID lactulose and BID rifaximin, close PCP and GI follow up. DISPOSITION: Home DISCHARGE INSTRUCTIONS: Home with QID lactulose and BID rifaximin, close PCP and GI follow up. ITEMS TO FOLLOWUP ON ON OUTPATIENT: Liver cirrhosis c/b frequent episode of hepatic encephalopathy, esophageal v arices and ascites. DISCHARGE CONDITION: Stable TIME SPENT ON DISCHARGE: 44 minutes. Vital Signs/I&Os Vital Signs Date Time Temp Pulse Resp B/P (MAP) Pulse Ox O2 Delivery O2 Flow Rate FiO2 06/22/21 08:04 97.8 59 18 104/52 (69) 98 Room Air I&O- Last 24 Hours up to 6 AM 06/22/21 06:00 Intake Total 510.0 ml Output Total 2300 ml Balance -1790.0 ml Laboratory Data Labs 24H Laboratory Tests 2 06/21/21 18:34: Bedside Glucose (Misc Panel) 166H 06/21/21 20:46: Bedside Glucose (Misc Panel) 188H 06/22/21 05:06: Nucleated Red Blood Cells % (auto) 0.0, Anion Gap 4L, Glomerular Filtration Rate 30.6L, Calcium Level 8.2L, Magnesium Level 2.3, Total Bilirubin 0.9, Aspartate Amino Transf (AST/SGOT) 46H, Alanine Aminotransferase (ALT/SGPT) 21, Alkaline Phosphatase 202H, Ammonia 176H, Total Protein 5.5L, Albumin 2.1L, Al bumin/Globulin Ratio 0.6L 06/22/21 11:23: Bedside Glucose (Misc Panel) 250H CBC/BMP Laboratory Tests 06/22/21 05:06 FSBS Laboratory Tests Test 06/21/21 18:34 06/21/21 20:46 06/22/21 11:23 Range/Units Bedside Glucose (Misc Panel) 166 188 250 80-115 MG/DL Discharge Medications Scheduled Allopurinol (Allopurinol) 100 Mg Tablet, 100 MG PO DAILY, (Reported) Ascorbic Acid (Vitamin C) 250 Mg Tablet, 250 MG PO DAILY, (Reported) Cholecalciferol (Vitamin D3) (Vitamin D3) 1,000 Unit Tablet, 1,000 UNITS PO DAILY, (Reported) Gabapentin (Gabapentin) 100 Mg Capsule, 100 MG PO BID, (Reported) Insulin Human Lispro (Novolog) 100 U/Ml Inj, 1 DOSE SC BID, (Reported) PER SLIDING SCALE Lactulose (Lactulose) 10 Gm/15 Ml Solution, 30 ML PO QID Levothyroxine Sodium (Levothyroxine Sodium) 25 Mcg Tablet, 25 MCG PO DAILY, (Reported) Magnesium Oxide (Magnesium Oxide) 400 Mg Tablet, 400 MG PO TID, (Reported) Midodrine HCl (Midodrine HCl) 10 Mg Tablet, 15 MG PO TID, (Reported) Omeprazole (Omeprazole) 40 Mg Capsule.dr, 40 MG PO DAILY, (Reported) Rifaximin (Xifaxan) 550 Mg Tablet, 550 MG PO BID, (Reported) Spironolactone (Spironolactone) 50 Mg Tablet, 50 MG PO DAILY, (Reported) Sucralfate (Sucralfate) 1 Gm Tablet, 1 GM PO ACHS, (Reported) Torsemide (Torsemide) 20 Mg Tablet, 20 MG PO BID, (Reported) Scheduled PRN Tizanidine HCl (Tizanidine HCl) 4 Mg Tablet, 4 MG PO TID PRN for SPASMS, (Reported) Allergies Coded Allergies: No Known Drug Allergies (Verified Allergy, Unknown, 01/19/21) GILLIAN ZAPATA MD Jun 22, 2021 13:20
--- NOTE | 2021-06-22 13:22 | IPNPDOC ---
Text Note Date of Service The patient was seen on 06/22/21. NOTE SUBJECTIVE: -No acute events. -Fully awake and doing great OBJECTIVE: VITAL SIGNS: Please see below. GENERAL APPEARANCE: NAD, oriented fully HEENT: NCAT, anicteric sclerae, EOMI, MMM CARDIOVASCULAR: RRR. 3/6 systolic blowing murmur appreciated LUNGS: CTAB without wheezing, rales or rhonchi ABDOMEN: Obese,mildly distended. Nontender EXTREMITIES: No pedal edema appreciated. No overlying skin changes. Pulses intact. NEUROLOGICAL: Speech is clear, CN3-12 appear intact, moving all extremities LABORATORY DATA: Reviewed NH3 had improved to 55 but now back up to 176, will continue lactulose at QID instead of TID Cr 1.78 IMAGING: Head CT: FINDINGS: Brain: Normal. No hemorrhage. Unremarkable white matter. No mass effect. Cerebral ventricles: No ventriculomegaly. Paranasal sinuses: Visualized sinuses are unremarkable. No fluid levels. Mastoid air cells: Visualized mastoid air cells are well aerated. Bones/joints: Unremarkable. No acute fracture. Soft tissues: Unremarkable. IMPRESSION: No acute intracranial abnormality. Liver US: Small to moderate volume of ascites is visualized involving all 4 quadrants. No loculated fluid collection is visualized. IMPRESSION: Small to moderate volume of ascites. MICROBIOLOGY: Please see below. ASSESSMENT: 65 y/o W with CAMPBELL cirrhosis d/b esophageal varices, recurrent hepatic encephalopathy and ascites, cad s/p stenting, ckd3, dm2, htn who was brought to the hospital for altered mentation and now admitted for hepatic encephalopathy. PLAN: Hepatic Encephalopathy: had transient improvement but now lethargic again - Unclear precipitant. - Low suspicion for infection - no leukocytosis, fever, abdominal pain, UA bland. - continue rifaximin, midodrine, spironolactone and lactulose 30mg Q6H - Liver US showed small to moderate ascites 2. DM2 - sliding scale coverage - hypoglycemic protocol - hold gabapentin d/t mentation 3. Hx of varices, gerd - continue sucralfate once alert - continue protonix 4. HTN - torsemide at discharge 5. Gout - continue allopurinol 6. Hypothyroidism - continue synthroid DVT prophylaxis - heparin SC VS,Fishbone, I+O VS, Fishbone, I+O Laboratory Tests 06/22/21 05:06 Vital Signs Date Time Temp Pulse Resp B/P (MAP) Pulse Ox O2 Delivery O2 Flow Rate FiO2 06/22/21 04:00 98.6 57 16 104/53 (70) 96 Room Air I&O- Last 24 Hours up to 6 AM 06/22/21 06:00 Intake Total 510.0 ml Output Total 2300 ml Balance -1790.0 ml GILLIAN ZAPATA MD Jun 22, 2021 07:39
== END 2021-06-22 14:30 | disposition home or self-care (01) | DRG 433 ==
LOC: M ED 20:05 → M ED INP 23:01 → ENRESERV 06-21 06:45 → M PCU 06-21 11:30
PROVIDERS: ADMIT Family Medicine; ATTEND Internal Medicine
PROC: 30233J1 Transfusion of Nonautologous Serum Albumin into Peripheral Vein, Percutaneous Approach (ICD-10-PCS; principal; 2021-06-21)
DX: K74.69 Other cirrhosis of liver (principal); I85.10 Secondary esophageal varices without bleeding; R18.8 Other ascites; N17.9 Acute kidney failure, unspecified; E72.20 Disorder of urea cycle metabolism, unspecified; E11.22 Type 2 diabetes mellitus with diabetic chronic kidney disease; K21.9 Gastro-esophageal reflux disease without esophagitis; I12.9 Hypertensive chronic kidney disease with stage 1 through stage 4 chronic kidney disease, or unspecified chronic kidney disease; E03.9 Hypothyroidism, unspecified; K72.90 Hepatic failure, unspecified without coma; I25.10 Atherosclerotic heart disease of native coronary artery without angina pectoris; N18.30 Chronic kidney disease, stage 3 unspecified; K75.81 Nonalcoholic steatohepatitis (NASH); Z98.41 Cataract extraction status, right eye; Z98.42 Cataract extraction status, left eye; Z95.5 Presence of coronary angioplasty implant and graft; Z90.49 Acquired absence of other specified parts of digestive tract; Z96.651 Presence of right artificial knee joint; Z86.010 Personal history of colon polyps; Z87.81 Personal history of (healed) traumatic fracture; Z79.4 Long term (current) use of insulin; Z79.899 Other long term (current) drug therapy

== ENCOUNTER 2021-06-26 08:22 | Inpatient (IN) | payer OTHER ==
[~2021-06-26] VITALS: Ht 162.6 cm; Wt 79.8 kg
[~2021-06-26 08:22] MED LIST changes: +GABA-1171 PO; +SPIR50TA4 PO
[2021-06-26] MEDS ORDERED: PANTOPRAZOLE 40MG TAB (PROTONIX) PO SCH (09:00)
--- NOTE | 2021-06-26 09:12 | ECGEPIP ---
[facility] - ED Test Date: 2021-06-26 Pat Name: AUDREY VILLALOBOS Department: Room: - Gender: Female Inspecting Engineer: JEFFY : 1955 Requested By: Quentin Hurtado Order Number: [id number] Reading MD: Asif Rodriguez Measurements Intervals [place] Rate: 89 P: 41 SC: 136 QRS: -36 QRSD: 112 T: 73 QT: 420 QTc: 511 Interpretive Statements Normal sinus rhythm Left axis deviation Moderate voltage criteria for LVH, may be normal variant ( R in aVL , Bhaskar product ) MODERATE INTRAVENTRICULAR CONDUCTION DELAY LEFT ANTERIOR FASCICULAR BLOCK Septal infarct , age undetermined Prolonged QT SIMILAR TO 06/20/21 Electronically Signed on 06-26-2021 9:11:57 EDT by Asif Rodriguez
[2021-06-26] MEDS ORDERED: chlorproMAZINE 25 MG TABLET PO ONE (09:25)
[2021-06-26 09:40] LABS: BASO % 0.9 % (0.0-1.0); EOS # 0.2 10^3/uL (0.0-0.5); EOS % 4.8 % (0.0-3.0); HEMATOCRIT 27.1 % (36.0-47.0); HEMOGLOBIN 8.6 g/dl (12.0-15.5); LYMPH % 22.3 % (24.0-44.0); MEAN CORPUSCULAR HEMOGLOBIN 30.7 pg (27.0-33.0); MEAN CORPUSCULAR HGB CONC 31.7 g/dl (32.0-36.5); MEAN CORPUSCULAR VOLUME 96.8 fl (80.0-96.0); MONO # 0.7 10^3/uL (0.0-0.8); MONO % 14.2 % (2.0-8.0); NEUTROPHILS # 2.6 10^3/uL (1.5-8.5); NEUTROPHILS % 57.6 % (36.0-66.0); PLATELET COUNT, AUTOMATED 155 10^3/uL (150-450); WHITE BLOOD COUNT 4.6 10^3/uL (4.0-10.0)
--- NOTE | 2021-06-26 09:52 | REP ---
INDICATION: AMS. COMPARISON: None. TECHNIQUE: AP portable FINDINGS: Minimal pleural thickening blunting left costophrenic angle. Old left rib fractures. No evidence of active parenchymal disease in the lungs. Heart not enlarged. No failure. IMPRESSION: No interval change. No active process. <Electronically signed by Jayjay Wadsworth > 06/26/21 0941
[2021-06-26 10:08] LABS: ALBUMIN 2.5 GM/DL (3.2-5.2); BILIRUBIN,DIRECT 0.4 MG/DL (0.0-0.2); BILIRUBIN,TOTAL 0.8 MG/DL (0.2-1.0); CALCIUM LEVEL 8.8 MG/DL (8.8-10.2); CREATININE FOR GFR 1.81 MG/DL (0.55-1.30); GLOMERULAR FILTRATION RATE 30.1 (>45); POTASSIUM SERUM 3.9 MEQ/L (3.5-5.1); TOTAL PROTEIN 6.7 GM/DL (6.4-8.2)
[2021-06-26 10:32] LABS: RSV AMPLIFICATION NEGATIVE (NEGATIVE)
--- NOTE | 2021-06-26 10:52 | REP ---
INDICATION: AMS. COMPARISON: None. TECHNIQUE: Axial scans were obtained without contrast administration. FINDINGS: There is no displacement of midline structures. The 3rd and lateral ventricles show normal size and configuration. The cerebral hemispheres show normal size and attenuation. There is no evidence of hemorrhage, mass effect or edema. The brainstem and posterior fossa are unremarkable.. IMPRESSION: Negative brain CT. <Electronically signed by Jayjay Wadsworth > 06/26/21 1049
[2021-06-26] MEDS ORDERED: HOME MED LIST COMPLETE! XX SCH (11:00)
[2021-06-26] MEDS ORDERED: CONS10SO3 PO (11:00)
[2021-06-26] MEDS ORDERED: DEXTROSE 50% 50 ML SYRINGE IV PRN ×2 (11:10→15:15)
[2021-06-26] MEDS ORDERED: GLUCOSE 4GM CHEW TABLET PO PRN ×2 (11:10→15:15)
[2021-06-26] MEDS ORDERED: GLUCAGON INJ 1MG VIAL SC PRN ×2 (11:10→15:15)
--- NOTE | 2021-06-26 11:41 | HPEPDOC ---
General Date of Admission 06/26/21 Date of Service: Jun 26, 2021 Chief Complaint The patient is a 65-year-old female admitted with a reason for visit of Confused. Source: Family Exam Limitations: Clinical conditions History of Present Illness Patient is 65 y/o female with CAMPBELL cirrhosis, esophageal varices, recurrent hepatic encephalopathy, cad s/p stenting, ckd3, dm2, htn who was brought to the hospital today for altered mental status by her . According to her patient became more confused confused for past 2 days. Patient has a long hi story of decompensated liver cirrhosis and multiple admission for past 6 months. In ER patient was found to have no leukocytosis, hemoglobin 8.6, creatinine 1.8, ammonia level 203, AST 38, ALT 22. US shows Small to moderate volume of ascites Home Medications Scheduled Allopurinol (Allopurinol) 100 Mg Tablet, 100 MG PO DAILY, (Reported) Ascorbic Acid (Vitamin C) 250 Mg Tablet, 250 MG PO DAILY, (Reported) Cholecalciferol (Vitamin D3) (Vitamin D3) 1,000 Unit Tablet, 1,000 UNITS PO DAILY, (Reported) Gabapentin (Gabapentin) 100 Mg Capsule, 100 MG PO BID, (Reported) Insulin Human Lispro (Novolog) 100 U/Ml Inj, 1 DOSE SC BID, (Reported) PER SLIDING SCALE Lactulose (Constulose) 10 Gm/15 Ml Solution, 30 ML PO QID, (Reported) Levothyroxine Sodium (Levothyroxine Sodium) 25 Mcg Tablet, 25 MCG PO DAILY, (Reported) Magnesium Oxide (Magnesium Oxide) 400 Mg Tablet, 400 MG PO TID, (Reported) Midodrine HCl (Midodrine HCl) 10 Mg Tablet, 15 MG PO TID, (Reported) Omeprazole (Omeprazole) 40 Mg Capsule.dr, 40 MG PO DAILY, (Reported) Rifaximin (Xifaxan) 550 Mg Tablet, 550 MG PO BID, (Reported) Spironolactone (Spironolactone) 50 Mg Tablet, 50 MG PO DAILY, (Reported) Sucralfate (Sucralfate) 1 Gm Tablet, 1 GM PO ACHS, (Reported) Torsemide (Torsemide) 20 Mg Tablet, 20 MG PO BID, (Reported) Scheduled PRN Tizanidine HCl (Tizanidine HCl) 4 Mg Tablet, 4 MG PO TID PRN for SPASMS, (Reported) Allergies Coded Allergies: No Known Drug Allergies (Verified Allergy, Unknown, 01/19/21) Past Medical History Medical History Campbell cirrhosis, obesity, history of hepatic encephalopathy, chronic hypertension, diabetes type 2 with neuropathy, esophageal varices Surgical History 1. [B/l cataract removal]. 2. Tonsillectomy. 3. [EGD with esophageal varices banding 4. Cardiac stenting 5. Cholecystectomy 6. Right TKA 7. Right ankle ORIF 8 Colonoscopy with polypectomy 9. Paracentesis ]. Family History I personally reviewed family history and found not pertinent Social History * Smoker: former Smoker Alcohol: Denies Drugs: denies A-FIB/CHADSVASC A-FIB History Current/History of A-Fib/PAF?: No Current PO Anticoag Therapy: No Review of Systems Constitutional: Reports: Other; Denies: Chills Eyes: Denies: Pain ENT: Denies: Head Aches Skin: Denies: Rash, Lesions Pulmonary: Denies: Dyspnea Cardiovascular: Denies: Chest Pain Gastrointestinal: Denies: Nausea Genitourinary: Denies: Dysuria Hematologic: Denies: Bruising Endocrine: Denies: Polydipsia Musculoskeletal: Denies: Neck Pain Neurological: Denies: Weakness Physical Examination General Exam: Negative: Alert Eye Exam: Negative: PERRLA ENT Exam: Negative: Atraumatic Neck Exam: Negative: Supple, JVD Chest Exam: Negative: Clear to auscultation Heart Exam: Negative: Rate Normal Telemetry: Negative: No significant arrhythmia Abdomen Exam: Negative: Normal bowel sounds Extremity Exam: Negative: Clubbing Skin Exam: Negative: Nl turgor and temperature Neuro Exam: Positive: Cranial Nerves 3-12 NL, Reflexes 2+ Psych Exam: Positive: Other (Moderately confused, follows command, able to answer simple questions); Negative: Mental status NL Vital Signs Vital Signs Date Time Temp Pulse Resp B/P (MAP) Pulse Ox O2 Delivery O2 Flow Rate FiO2 06/26/21 08:27 98.4 95 18 131/60 (83) 98 Room Air Laboratory Data Labs 24H Laboratory Tests 2 06/26/21 09:27: Immature Granulocyte % (Auto) 0.2, Neutrophils (%) (Auto) 57.6, Lymphocytes (%) (Auto) 22.3L, Monocytes (%) (Auto) 14.2H, Eosinophils (%) (Auto) 4.8H, Basophils (%) (Auto) 0.9, Neutrophils # (Auto) 2.6, Lymphocytes # (Auto) 1.0L, Monocytes # (Auto) 0.7, Eosinophils # (Auto) 0.2, Basophils # (Auto) 0.0, Nucleated Red Blood Cells % (auto) 0.0, Anion Gap 9, Glomerular Filtration Rate 30.1L, Calcium Level 8.8, Total Bilirubin 0.8, Direct Bilirubin 0.4H, Aspartate Amino Transf (AST/SGOT) 38H, Alanine Aminotransferase (ALT/SGPT) 22, Alkaline Phosphatase 245H, Ammonia 203H, Total Protein 6.7, Albumin 2.5L, Albumin/Globulin Ratio 0.6L, Coronavirus (COVID-19)(PCR) NEGATIVE, Influenza Type A (RT-PCR) NEGATIVE, Influenza Type B (RT-PCR) NEGATIVE, Respiratory Syncytial Virus (PCR) NEGATIVE 06/26/21 09:28: POC Glucose (Misc Panel) 221H, POC Sodium (Misc Panel) 137, POC Potassium (Misc Panel) 4.2, POC Chloride (Misc Panel) 96L, POC Total CO2 (Misc Panel) 30.0H, POC Blood Urea Nitrogen (Misc Panel 31H, POC Ionized Calcium (Misc Panel) 4.5, POC Creatinine (Misc Panel) 1.4H, POC Hematocrit (Misc Panel) 25.0L 06/26/21 09:30: POC Troponin I (Misc) 0.02 CBC/BMP Laboratory Tests 06/26/21 09:27 Assessment/Plan Patient is 65 y/o female with CAMPBELL cirrhosis, esophageal varices, recurrent hep atic encephalopathy, cad s/p stenting, ckd3, dm2, htn who was brought to the hospital today for altered mental status by her . According to her patient became more confused confused for past 2 days. Patient has a long history of decompensated liver cirrhosis and multiple admission for past 6 months. In ER patient was found to have no leukocytosis, hemoglobin 8.6, creatinine 1.8, ammonia level 203, AST 38, ALT 22. US shows Small to moderate volume of ascites Problems (1) Hepatic encephalopathy Status: Acute Problem Text: Secondary to decompensated liver cirrhosis Prognosis is poor Continue lactulose and rifaximin (2) Liver cirrhosis secondary to CAMPBELL Status: Chronic Problem Text: Her told me that they we will have appointment to discuss liver transplant in [facility] in July (3) Hyperammonemia Status: Acute Problem Text: See above (4) Esophageal varices in cirrhosis Status: Chronic Problem Text: EGD was done in May 2021, patient was found to have Grade II esophageal varices and portal hypertension. No signs of acute bleeding for now (5) AIDA (acute kidney injury) Status: Acute Problem Text: Most likely secondary to volume depletion Continue to monitor (6) Diabetes Status: Chronic Problem Text: Insulin sliding scale Diabetes diet (7) Diabetic neuropathy Status: Chronic Problem Text: Gabapentin on hold (8) Anemia Status: Chronic Problem Text: Normocytic anemia Multifactorial. We will check iron panel with B12 and folate Stool for occult blood Plan / VTE VTE Prophylaxis Ordered?: Yes TRINI SMALL DO Jun 26, 2021 11:41
[2021-06-26] MEDS ORDERED: HumaLOG INSULIN (NovoLOG) PER UNIT SC SCH (12:00)
[2021-06-26 12:55] VITALS: BP 102/56
[2021-06-26] MEDS: SPIRONOLACTONE 50 MG TAB PO SCH (13:51)
[2021-06-26] MEDS: LEVEMIR (INSULIN DETEMIR) 1 UNITS/0.01ML SC SCH ×2 (13:51→20:21)
[2021-06-26] MEDS: rifAXIMin 550 MG TAB (XIFAXAN) PO SCH ×2 (13:52→20:20)
[2021-06-26] MEDS: VITAMIN D 1,000 INTERNATIONAL UNITS TABLET PO SCH (13:52)
[2021-06-26] MEDS: TORSEMIDE 20 MG TAB PO SCH ×2 (13:52→20:20)
[2021-06-26] MEDS: SUCRALFATE 1 GM TAB PO SCH ×3 (13:53→20:20)
[2021-06-26] MEDS: MIDODRINE 5 MG TAB PO SCH ×2 (17:11→20:20)
[2021-06-26] MEDS: LACTULOSE 20 GM/30 ML SYRUP UD PO SCH ×2 (17:11→20:21)
[2021-06-26] MEDS: MAGNESIUM OXIDE 400MG TAB (MAG-OX) PO SCH ×2 (17:12→20:20)
[2021-06-26] MEDS: HumaLOG INSULIN (NovoLOG) PER UNIT SC SCH ×2 (17:12→20:26)
[2021-06-26] MEDS: ASCORBIC ACID 250 MG TAB PO SCH (17:12)
[2021-06-26] MEDS: ENOXAPARIN 40MG/0.4ML SYRINGE (J1650 PER 10MG) SC SCH (17:19)
[2021-06-26 22:00] VITALS: BP 123/60
[2021-06-26] MEDS ORDERED: tiZANidine 4 MG TAB PO ONE (23:40)
[2021-06-26] MEDS ORDERED: LIDOCAINE 5% (LIDODERM) PATCH TD PRN (23:40)
[2021-06-27] VITALS (12 sets, daily range): BP systolic 99–129; BP diastolic 48–82
[2021-06-27] MEDS: LEVOTHYROXINE 25MCG TABLET (0.025MG) PO SCH (05:51)
[2021-06-27 06:19] LABS: MEAN CORPUSCULAR HEMOGLOBIN 31.8 pg (27.0-33.0); MEAN CORPUSCULAR HGB CONC 33.2 g/dl (32.0-36.5); MEAN CORPUSCULAR VOLUME 95.9 fl (80.0-96.0); PLATELET COUNT, AUTOMATED 101 10^3/uL (150-450); RED BLOOD COUNT 2.17 10^6/uL (4.00-5.40); WHITE BLOOD COUNT 3.7 10^3/uL (4.0-10.0)
[2021-06-27 06:26] LABS: HEMATOCRIT 20.8 % (36.0-47.0); HEMOGLOBIN 6.9 g/dl (12.0-15.5)
[2021-06-27 06:48] LABS: BILIRUBIN,TOTAL 0.7 MG/DL (0.2-1.0); CALCIUM LEVEL 8.2 MG/DL (8.8-10.2); CREATININE FOR GFR 1.94 MG/DL (0.55-1.30); GLOMERULAR FILTRATION RATE 27.7 (>45); POTASSIUM SERUM 4.6 MEQ/L (3.5-5.1); TOTAL PROTEIN 5.5 GM/DL (6.4-8.2)
[2021-06-27 07:15] LABS: PERCENT SATURATION 18.5 % (13.2-45.0)
[2021-06-27] MEDS: SUCRALFATE 1 GM TAB PO SCH ×4 (09:00→22:23)
[2021-06-27] MEDS: SPIRONOLACTONE 50 MG TAB PO SCH (09:00)
[2021-06-27] MEDS: rifAXIMin 550 MG TAB (XIFAXAN) PO SCH ×2 (09:00→22:23)
[2021-06-27] MEDS: TORSEMIDE 20 MG TAB PO SCH ×2 (09:00→22:20)
[2021-06-27] MEDS: VITAMIN D 1,000 INTERNATIONAL UNITS TABLET PO SCH (09:00)
[2021-06-27] MEDS: MAGNESIUM OXIDE 400MG TAB (MAG-OX) PO SCH ×3 (09:00→22:24)
[2021-06-27] MEDS: MIDODRINE 5 MG TAB PO SCH ×3 (09:00→22:23)
[2021-06-27] MEDS: ENOXAPARIN 40MG/0.4ML SYRINGE (J1650 PER 10MG) SC SCH (09:00)
[2021-06-27] MEDS: LACTULOSE 20 GM/30 ML SYRUP UD PO SCH ×3 (09:00→21:43)
[2021-06-27] MEDS: ASCORBIC ACID 250 MG TAB PO SCH (09:00)
[2021-06-27 09:21] LABS: BILIRUBIN,TOTAL 0.7 MG/DL (0.2-1.0); CALCIUM LEVEL 8.1 MG/DL (8.8-10.2); CREATININE FOR GFR 1.95 MG/DL (0.55-1.30); GLOMERULAR FILTRATION RATE 27.6 (>45); TOTAL PROTEIN 5.4 GM/DL (6.4-8.2)
[2021-06-27] MEDS: cefTRIAXone SOD 2 GM in D5W MINI-BAG PLUS 50 ML IV SCH (10:41)
[2021-06-27] MEDS: LEVEMIR (INSULIN DETEMIR) 1 UNITS/0.01ML SC SCH ×2 (10:42→22:25)
[2021-06-27] MEDS: HumaLOG INSULIN (NovoLOG) PER UNIT SC SCH ×4 (10:42→21:00)
[2021-06-27] MEDS: PANTOPRAZOLE 40MG VIAL (C9113 PER 1) IV SCH ×2 (10:43→22:24)
[2021-06-27] MEDS: OCTREOTIDE ACETATE 1,200 MCG in NS 238.8 ML IV SCH (11:32)
[2021-06-27 11:59] LABS: HEMATOCRIT 21.5 % (36.0-47.0)
[2021-06-27 12:00] LABS: HEMOGLOBIN 6.8 g/dl (12.0-15.5)
[2021-06-27] MEDS ORDERED: LACTULOSE 20 GM/30 ML SYRUP UD PR ONE (13:20)
--- NOTE | 2021-06-27 13:31 | IPNPDOC ---
Text Note Date of Service The patient was seen on 06/27/21. NOTE Subjective: Patient unresponsive in the morning. Does not follow simple comm and. I talked to Meryl, her , I explained that overall prognosis is poor. Meryl changed her CODE STATUS to DNR/DNI Objective: GENERAL APPEARANCE: Lethargic female HEENT: no scleral icterus, no JVD, EOMI CARDIOVASCULAR: S1S2 LUNGS: Diminished lung sounds bilaterally ABDOMEN: soft & not tender w palpation MUSCULOSKELETAL: no cyanosis, no swelling INTEGUMENT: no generalized pallor NEUROLOGICAL: Unable to evaluate due to lethargy Assessment/Plan Patient is 65 y/o female with CAMPBELL cirrhosis, esophageal varices, recurrent hepatic encephalopathy, cad s/p stenting, ckd3, dm2, htn who was brought to the hospital today for altered mental status by her . According to her patient became more confused confused for past 2 days. Patient has a long history of decompensated liver cirrhosis and multiple admission for past 6 months. In ER patient was found to have no leukocytosis, hemoglobin 8.6, creatinine 1.8, ammonia level 203, AST 38, ALT 22. US shows Small to moderate volume of ascites Problems (1) Hepatic encephalopathy Secondary to decompensated liver cirrhosis. Ammonia level increased to 238 today. We will try lactulose per rectum Prognosis is poor Continue lactulose and rifaximin (2) Liver cirrhosis secondary to CAMPBELL Her told me that they we will have appointment to discuss liver transplant in [facility] in July (3) Hyperammonemia See above (4) Esophageal varices in cirrhosis EGD was done in May 2021, patient was found to have Grade II esophageal varices and portal hypertension. (5) AIDA (acute kidney injury) Most likely secondary to volume depletion Continue to monitor (6) Diabetes Insulin sliding scale Diabetes diet (7) Diabetic neuropathy Gabapentin on hold (8) Anemia/GI bleed Hemoglobin dropped to 6.8. Patient will receive 1 unit of blood I talked with GI team Dr. Pelayo he recommended to start ceftriaxone IV and octreotide drip. H&H every 6 hours VS,Fishbone, I+O VS, Fishbone, I+O Laboratory Tests 06/27/21 05:57 06/27/21 08:43 06/27/21 08:44 Vital Signs Date Time Temp Pulse Resp B/P (MAP) Pulse Ox O2 Delivery O2 Flow Rate FiO2 06/27/21 10:17 71 13 115/57 (76) 96 Room Air 06/27/21 09:51 97.4 I&O- Last 24 Hours up to 6 AM 06/27/21 05:59 Intake Total 940 ml Output Total 850 ml Balance 90 ml TRINI SMALL DO Jun 27, 2021 13:31
--- NOTE | 2021-06-27 17:44 | ROOPDOC ---
[facility] Report Of Operation Report of Operation DATE OF PROCEDURE: 06/27/21 PROCEDURE PERFORMED: right IJ central venous catheter insertion PREPROCEDURE DIAGNOSES: hepatic encephalopathy, no IV access. POSTPROCEDURE DIAGNOSES: hepatic encephalopathy, no IV access. SURGEON: Dr Raymundo MD Consent obtained from: Meryl () verbal consent ANESTHESIA: Local 1% lidocaine. ESTIMATED BLOOD LOSS: Approximately 1 mL. COMPLICATIONS: none. PROCEDURE NOTE: After consent was obtained from her , a time out was performed. My hands were washed immediately prior to the procedure. I wore a surgical cap, mask with protective eyewear, full gown and sterile gloves throughout the procedure. The patient was placed in Trendelenburg position. RIGHT neck region was prepped using chlorhexidine scrub and draped in sterile fashion using a full drape and sterile probe cover and sterile gel employed. The medial and lateral heads of the sternocleidomastoid muscle were identified as was the carotid pulse. The Internal Jugular vein was identified using the ultrasound. Anesthesia was achieved over the vein using 1% lidocaine. Using real-time out of plane guidance, the introducer needle was inserted into the Internal Jugular vein under direct ultrasound visualization. Venous blood was withdrawn. The syringe was removed and a guidewire was advanced into the introducer needle. The guidewire was visualized in the Internal Jugular Vein by ultrasound. A small incision was made at the skin surface with a scalpel and the introducer needle was exchanged for a dilator over the guidewire. After appropriate dilation was obtained, the dilator was exchanged over the wire for a triple lumen central venous catheter. The wire was removed and the catheter was sutured in place at 15 cm. A sterile sorbaview shield was placed over the catheter at the insertion site. The patient tolerated the procedure without any hemodynamic compromise. At time of procedure completion, all ports aspirated and flushed properly. Post- procedure chest x-ray shows proper placement of the line and there's no pneumothorax. Estimated blood loss is 1cc. TIFFANY MARTIN MD Jun 27, 2021 17:44
--- NOTE | 2021-06-27 19:10 | REPVR ---
PROCEDURE INFORMATION: Exam: XR Chest Exam date and time: 06/27/2021 5:55 PM Age: 65 years old Clinical indication: Other: Right ij catheter insertion TECHNIQUE: Imaging protocol: XR of the chest. Views: 1 view. COMPARISON: CR PORTABLE CHEST X-RAY 06/26/2021 9:26 AM FINDINGS: Lungs: There is prominence of the vascular markings. Heart/Mediastinum: There is mild prominence left side of the heart. Vasculature: A right trans jugular line is in place with its tip in the superior vena cava. There is no evidence of pneumothorax. Bones/joints: There is no evidence of bony abnormality. IMPRESSION: 1. No evidence of pneumothorax. 2. Mild prominence of the vascular markings. Electronically signed by: Law Zelaya On 06/27/2021 19:10:28 PM
[2021-06-27] MEDS ORDERED: SODIUM CHLORIDE 0.9% INJ 10 ML SYR IV PRN (19:15)
[2021-06-27] MEDS ORDERED: **NOTE PATIENT COMMENT** MISC XX PRN (21:00)
[2021-06-27] MEDS: SODIUM CHLORIDE 0.9% INJ 10 ML SYR IV SCH (21:37)
[2021-06-27 21:42] LABS: HEMOGLOBIN 8.6 g/dl (12.0-15.5)
[2021-06-27 23:01] LABS: VENOUS BASE EXCESS 4.4 (-2.0-2.0); VENOUS HCO3 27.4 MEQ/L (23.0-27.0); VENOUS PARTIAL PRESSURE CO2 35.1 mmHg (38.0-50.0); VENOUS PARTIAL PRESSURE O2 160.5 mmHg (30.0-50.0); VENOUS PH 7.511 UNITS (7.330-7.430); VENOUS STANDARD HCO3 28.4 MEQ/L; VENOUS TOTAL CO2 28.5 MEQ/L (24.0-28.0)
[2021-06-28 00:05] VITALS: BP 97/54
[2021-06-28] MEDS ORDERED: D5W/0.9% SODIUM CHLORIDE 1,000 ML IV SCH (00:10)
[2021-06-28 03:23] VITALS: BP 109/55
[2021-06-28] MEDS ORDERED: tiZANidine 4 MG TAB PO ONE (03:35)
[2021-06-28 05:01] LABS: HEMATOCRIT 24.4 % (36.0-47.0); HEMOGLOBIN 7.7 g/dl (12.0-15.5); MEAN CORPUSCULAR HEMOGLOBIN 30.2 pg (27.0-33.0); MEAN CORPUSCULAR HGB CONC 31.6 g/dl (32.0-36.5); MEAN CORPUSCULAR VOLUME 95.7 fl (80.0-96.0); PLATELET COUNT, AUTOMATED 103 10^3/uL (150-450); RED BLOOD COUNT 2.55 10^6/uL (4.00-5.40)
[2021-06-28 05:27] LABS: ALBUMIN 1.9 GM/DL (3.2-5.2); CALCIUM LEVEL 8.2 MG/DL (8.8-10.2); CREATININE FOR GFR 1.72 MG/DL (0.55-1.30); GLOMERULAR FILTRATION RATE 31.9 (>45); MAGNESIUM LEVEL 1.9 MG/DL (1.8-2.4); TOTAL PROTEIN 5.2 GM/DL (6.4-8.2)
[2021-06-28 05:36] LABS: BASOPHILS 1 % (0-1); EOSINOPHILS 3 % (0-3); LYMPHOCYTES 33 % (16-44); MONOCYTES 9 % (0-5); NEUTROPHILS 54 % (28-66)
[2021-06-28 05:37] LABS: ANISOCYTOSIS 1+; HYPOCHROMASIA 1+; PLATELET ESTIMATE DECREASED (NORMAL)
[2021-06-28 05:38] LABS: SMUDGE CELLS 1+
[2021-06-28] MEDS: LEVOTHYROXINE 25MCG TABLET (0.025MG) PO SCH (05:38)
[2021-06-28] MEDS: SODIUM CHLORIDE 0.9% INJ 10 ML SYR IV SCH ×3 (05:44→21:31)
[2021-06-28] MEDS: HumaLOG INSULIN (NovoLOG) PER UNIT SC SCH ×4 (07:30→21:00)
[2021-06-28 08:00] VITALS: BP 100/50
[2021-06-28] MEDS: MIDODRINE 5 MG TAB PO SCH ×3 (08:29→21:30)
[2021-06-28] MEDS: cefTRIAXone SOD 2 GM in D5W MINI-BAG PLUS 50 ML IV SCH (08:29)
[2021-06-28] MEDS: PANTOPRAZOLE 40MG VIAL (C9113 PER 1) IV SCH ×2 (08:29→21:30)
[2021-06-28] MEDS: ENOXAPARIN 40MG/0.4ML SYRINGE (J1650 PER 10MG) SC SCH (08:29)
[2021-06-28] MEDS: SPIRONOLACTONE 50 MG TAB PO SCH (08:29)
[2021-06-28] MEDS: ASCORBIC ACID 250 MG TAB PO SCH (08:30)
[2021-06-28] MEDS: VITAMIN D 1,000 INTERNATIONAL UNITS TABLET PO SCH (08:30)
[2021-06-28] MEDS: MAGNESIUM OXIDE 400MG TAB (MAG-OX) PO SCH ×3 (08:30→21:30)
[2021-06-28] MEDS: SUCRALFATE 1 GM TAB PO SCH ×4 (08:30→21:29)
[2021-06-28] MEDS: TORSEMIDE 20 MG TAB PO SCH ×2 (08:30→21:30)
[2021-06-28] MEDS: LACTULOSE 20 GM/30 ML SYRUP UD PO SCH ×3 (08:30→21:00)
[2021-06-28] MEDS: rifAXIMin 550 MG TAB (XIFAXAN) PO SCH ×2 (08:30→21:30)
[2021-06-28] MEDS: LEVEMIR (INSULIN DETEMIR) 1 UNITS/0.01ML SC SCH ×2 (09:00→21:30)
[2021-06-28] MEDS: OCTREOTIDE ACETATE 1,200 MCG in NS 238.8 ML IV SCH (10:18)
[2021-06-28 11:36] LABS: FOLATE 19.8 NG/ML (>5.4)
--- NOTE | 2021-06-28 11:40 | IPNPDOC ---
Text Note Date of Service The patient was seen on 06/28/21. NOTE Subjective: Patient alert in the morning and awake. No fever or chills overn ight Objective: GENERAL APPEARANCE: NAD HEENT: no scleral icterus, no JVD, EOMI CARDIOVASCULAR: S1S2 LUNGS: Diminished lung sounds bilaterally ABDOMEN: soft & not tender w palpation MUSCULOSKELETAL: no cyanosis, no swelling INTEGUMENT: no generalized pallor NEUROLOGICAL: Follows commands, cranial nerves from 2-12 intact Assessment/Plan Patient is 65 y/o female with CAMPBELL cirrhosis, esophageal varices, recurrent hepatic encephalopathy, cad s/p stenting, ckd3, dm2, htn who was brought to the hospital today for altered mental status by her . According to her patient became more confused confused for past 2 days. Patient has a long history of decompensated liver cirrhosis and multiple admission for past 6 months. In ER patient was found to have no leukocytosis, hemoglobin 8.6, creatinine 1.8, ammonia level 203, AST 38, ALT 22. US shows Small to moderate volume of ascites Problems (1) Hepatic encephalopathy Secondary to decompensated liver cirrhosis. Ammonia level improved today. Prognosis is poor Continue lactulose and rifaximin (2) Liver cirrhosis secondary to CAMPBELL/moderate ascites Her told me that they we will have appointment to discuss liver transplant in [facility] in July We will proceed with paracentesis today (3) Hyperammonemia See above (4) Esophageal varices in cirrhosis EGD was done in May 2021, patient was found to have Grade II esophageal varices and portal hypertension. (5) AIDA (acute kidney injury) Most likely secondary to volume depletion Continue to monitor (6) Diabetes Insulin sliding scale Diabetes diet (7) Diabetic neuropathy Gabapentin on hold (8) Anemia/GI bleed Hemoglobin dropped to 6.8. Patient received 1 unit of blood I talked with GI team Dr. Pelayo he recommended to start ceftriaxone IV and octreotide drip. Hemoglobin stable today H&H every 6 hours VS,Fishbone, I+O VS, Fishbone, I+O Laboratory Tests 06/27/21 21:36 06/28/21 04:51 Vital Signs Date Time Temp Pulse Resp B/P (MAP) Pulse Ox O2 Delivery O2 Flow Rate FiO2 06/28/21 08:00 97.8 65 16 100/50 (67) 96 Room Air I&O- Last 24 Hours up to 6 AM 06/28/21 06:00 Intake Total 1795 ml Output Total 750 ml Balance 1045 ml TRINI SMALL DO Jun 28, 2021 11:40
[2021-06-28 12:00] VITALS: BP 118/61
[2021-06-28 12:29] LABS: HEMATOCRIT 24.1 % (36.0-47.0); HEMOGLOBIN 7.6 g/dl (12.0-15.5)
[2021-06-28] MEDS ORDERED: SODIUM BICARBONATE 8.4% INJ 50MEQ 50 ML VIAL As Ordered ONE (15:42)
[2021-06-28 16:00] VITALS: BP 117/59
--- NOTE | 2021-06-28 17:03 | REP ---
INDICATION: Paracentesis. COMPARISON: None. TECHNIQUE: The procedure was performed under the direct supervision of Dr. Cooper. The risks and benefits of the procedure were explained to the patient and informed consent was obtained. The largest pocket of fluid was localized in the right lower quadrant using ultrasound guidance. The skin was prepped and draped in a sterile fashion. 10 mL of buffered lidocaine was used as a local anesthetic. Using ultrasound guidance, an 8-Macedonian multi side-hole catheter was inserted using trocar technique.1100 mL of yellow fluid was withdrawn and sent to the lab for analysis. Estimated blood loss: Less than 1 mL The patient tolerated the procedure well and there were no immediate complications. After the appropriate amount of monitored convalescence, the patient was discharged from the department. FINDINGS: None IMPRESSION: Ultrasound-guided paracentesis [id number] mL of yellow fluid. <Electronically signed by Antelmo Lawrence > 06/28/21 [id number] <Electronically signed by Fox Cooper > 06/28/21 [id number]
[2021-06-28 17:11] LABS: SPEC. GRAVITY BODY FLUIDS 1.011 (NOT ESTABLISHED)
[2021-06-28 17:15] LABS: APPEARANCE, BODY FLUID CLEAR (CLEAR); PERITONEAL FL COLOR YELLOW (COLORLESS); SOURCE, BODY FLUID PERITONEAL
[2021-06-28 17:26] LABS: SOURCE, BODY FLUID ALBUMIN PERITONEAL; SOURCE, BODY FLUID GLUCOSE PERITONEAL; SOURCE, BODY FLUID TOT PROTEIN PERITONEAL
[2021-06-28 17:57] LABS: HEMATOCRIT 27.5 % (36.0-47.0); HEMOGLOBIN 8.8 g/dl (12.0-15.5)
[2021-06-28 20:00] VITALS: BP 120/65
[2021-06-29] VITALS: BP 118/60
[2021-06-29 01:02] LABS: HEMATOCRIT 24.4 % (36.0-47.0); HEMOGLOBIN 7.9 g/dl (12.0-15.5)
[2021-06-29] MEDS ORDERED: tiZANidine 4 MG TAB PO ONE (01:45)
[2021-06-29] MEDS ORDERED: PILL CUTTER 1 EACH XX PRN (01:45)
[2021-06-29 04:00] VITALS: BP 122/74
[2021-06-29 06:24] LABS: HEMATOCRIT 24.7 % (36.0-47.0); MEAN CORPUSCULAR HEMOGLOBIN 31.4 pg (27.0-33.0); MEAN CORPUSCULAR HGB CONC 32.4 g/dl (32.0-36.5); MEAN CORPUSCULAR VOLUME 96.9 fl (80.0-96.0); PLATELET COUNT, AUTOMATED 130 10^3/uL (150-450); RED BLOOD COUNT 2.55 10^6/uL (4.00-5.40); WHITE BLOOD COUNT 4.1 10^3/uL (4.0-10.0)
[2021-06-29] MEDS: SODIUM CHLORIDE 0.9% INJ 10 ML SYR IV SCH ×3 (06:26→21:30)
[2021-06-29] MEDS: LEVOTHYROXINE 25MCG TABLET (0.025MG) PO SCH (06:26)
[2021-06-29 06:54] LABS: ALBUMIN 1.9 GM/DL (3.2-5.2); BILIRUBIN,TOTAL 0.6 MG/DL (0.2-1.0); CALCIUM LEVEL 7.3 MG/DL (8.8-10.2); CREATININE FOR GFR 1.52 MG/DL (0.55-1.30); GLOMERULAR FILTRATION RATE 36.8 (>45); MAGNESIUM LEVEL 1.8 MG/DL (1.8-2.4); POTASSIUM SERUM 3.5 MEQ/L (3.5-5.1); TOTAL PROTEIN 5.2 GM/DL (6.4-8.2)
[2021-06-29] MEDS ORDERED: D5W/0.9% SODIUM CHLORIDE 1,000 ML IV SCH (07:00)
[2021-06-29] MEDS: SUCRALFATE 1 GM TAB PO SCH ×5 (07:30→21:28)
[2021-06-29] MEDS: HumaLOG INSULIN (NovoLOG) PER UNIT SC SCH ×4 (07:30→21:00)
[2021-06-29 07:33] VITALS: BP 97/53
[2021-06-29 07:45] LABS: ATYPICAL LYMPH 1 % (0-5); BASOPHILS 1 % (0-1); EOSINOPHILS 5 % (0-3); LYMPHOCYTES 38 % (16-44); MONOCYTES 4 % (0-5); NEUTROPHILS 50 % (28-66)
[2021-06-29 07:47] LABS: ANISOCYTOSIS 1+; POIKILOCYTOSIS 1+
[2021-06-29 07:48] LABS: OVALOCYTES 1+
[2021-06-29 07:49] LABS: PLATELET ESTIMATE DECREASED (NORMAL)
[2021-06-29] MEDS: LACTULOSE 20 GM/30 ML SYRUP UD PO SCH ×3 (09:00→21:28)
[2021-06-29] MEDS: LEVEMIR (INSULIN DETEMIR) 1 UNITS/0.01ML SC SCH ×2 (09:00→21:29)
[2021-06-29] MEDS: MAGNESIUM OXIDE 400MG TAB (MAG-OX) PO SCH ×3 (09:42→21:29)
[2021-06-29] MEDS: VITAMIN D 1,000 INTERNATIONAL UNITS TABLET PO SCH (09:43)
[2021-06-29] MEDS: ASCORBIC ACID 250 MG TAB PO SCH (09:43)
[2021-06-29] MEDS: TORSEMIDE 20 MG TAB PO SCH ×2 (09:44→21:28)
[2021-06-29] MEDS: SPIRONOLACTONE 50 MG TAB PO SCH (09:50)
[2021-06-29] MEDS: rifAXIMin 550 MG TAB (XIFAXAN) PO SCH ×2 (09:52→21:28)
[2021-06-29] MEDS: MIDODRINE 5 MG TAB PO SCH ×3 (09:52→21:28)
[2021-06-29] MEDS: ENOXAPARIN 40MG/0.4ML SYRINGE (J1650 PER 10MG) SC SCH (09:53)
[2021-06-29] MEDS: PANTOPRAZOLE 40MG VIAL (C9113 PER 1) IV SCH ×2 (09:53→21:29)
[2021-06-29] MEDS: cefTRIAXone SOD 2 GM in D5W MINI-BAG PLUS 50 ML IV SCH (09:54)
[2021-06-29] MEDS: OCTREOTIDE ACETATE 1,200 MCG in NS 238.8 ML IV SCH (10:02)
[2021-06-29 11:40] VITALS: BP 100/58
--- NOTE | 2021-06-29 13:44 | IPNPDOC ---
Text Note Date of Service The patient was seen on 06/29/21. NOTE Subjective: Patient is a 65-year-old female who presented to the hospital with confusion. Patient was found to have a GI bleed and was started on octreotide and ceftriaxone. Patient had paracentesis yesterday. Patient states that she is feeling better although her belly is mildly sore with a did the paracentesis. Patient is otherwise feeling well today. Review of systems: General: Patient denies fevers HEENT: Patient denies headaches Cardiovascular: Patient denies chest pain Respiratory: Patient denies shortness of breath, cough GI: Patient reports mild abdominal pain where the paracentesis was performed, patient denies nausea, vomiting, diarrhea : Patient denies increased frequency or pain with urination Extremities: Patient denies swelling or pain in extremities Neurological: Patient denies numbness or tingling in legs Physical exam: Vitals: See below General: Alert and oriented female patient who was sitting up in bed who did not appear to be in any acute distress. HEENT: Normocephalic, atraumatic, moist mucous membranes. Neck: No lymphadenopathy or thyromegaly Cardiac: Regular rate and rhythm, no murmurs, normal S1, normal S2 Pulm: Diminished in the bases with clear lung sounds in the upper lung kent bilaterally Abd: Nondistended, nontender to palpation, normal bowel sounds Ext: No edema bilateral lower extremities Labs: See below Imaging: No new imaging has been performed Assessment/plan: 65-year-old female who presented to the emergency department with more confusion over the past few days had a long history of decompensated liver cirrhosis mild admissions in the past 6 months who was admitted again for hepatic encephalopathy 1. Hepatic encephalopathy. Patient's ammonia level has improved. We will continue with lactulose and rifaximin. Patient's hepatic encephalopathy may have been secondary to a GI bleed. Patient's initial occult blood was positive. Patient did have variceal banding performed in May 2021. We will continue to monitor the patient's mental status. 2. Gastrointestinal bleeding. Patient was started on octreotide. This is day 3 of octreotide. Patient's H&H has been stabilized and we will continue to monitor. Patient did receive a unit of blood. 3. Liver cirrhosis secondary to Akins/moderate ascites. Patient had paracentesis yesterday which was did not show positive for spontaneous bacterial peritonitis. Patient apparently has an appointment in July to discuss possible liver transplantation. Patient's meld score is 14. 4. Esophageal varices with cirrhosis. EGD was done May 2021 and was found to have grade 2 esophageal varices with portal hypertension. Varices were banded. 5. Acute kidney injury. Most likely secondary volume depletion. Continue to monitor. This is improving. 6. Diabetes. Patient's insulin was held today as the patient's blood sugar this morning was 36. We will continue to monitor. Patient was started on D5 normal saline but this has since been stopped. 7. Diabetic neuropathy. Gabapentin on hold due to altered mental status. DVT Prophylaxis: Teds and sequentials Disposition: Pending stabilization hemoglobin VS,Fishbone, I+O VS, Fishbone, I+O Laboratory Tests 06/28/21 17:44 06/29/21 00:48 06/29/21 05:59 Vital Signs Date Time Temp Pulse Resp B/P (MAP) Pulse Ox O2 Delivery O2 Flow Rate FiO2 06/29/21 11:40 97.1 52 18 100/58 (72) 97 Room Air I&O- Last 24 Hours up to 6 AM 06/29/21 06:00 Intake Total 850 ml Output Total 1990 ml Balance -1140 ml KEANU CONTRERAS DO Jun 29, 2021 13:44
[2021-06-29 15:43] VITALS: BP 106/56
[2021-06-29] MEDS: tiZANidine 4 MG TAB PO PRN (16:43)
[2021-06-29 17:19] LABS: HEMATOCRIT 25.5 % (36.0-47.0); HEMOGLOBIN 8.1 g/dl (12.0-15.5)
[2021-06-29 20:12] VITALS: BP 100/53
[2021-06-30] VITALS: BP 119/61
[2021-06-30 04:00] VITALS: BP 110/48
[2021-06-30] MEDS: tiZANidine 4 MG TAB PO PRN ×2 (04:09→16:36)
[2021-06-30] MEDS: LEVOTHYROXINE 25MCG TABLET (0.025MG) PO SCH (04:09)
[2021-06-30 04:46] LABS: HEMOGLOBIN 7.6 g/dl (12.0-15.5); MEAN CORPUSCULAR HEMOGLOBIN 31.4 pg (27.0-33.0); MEAN CORPUSCULAR HGB CONC 31.7 g/dl (32.0-36.5); MEAN CORPUSCULAR VOLUME 99.2 fl (80.0-96.0); PLATELET COUNT, AUTOMATED 118 10^3/uL (150-450); RED BLOOD COUNT 2.42 10^6/uL (4.00-5.40)
[2021-06-30] MEDS: SODIUM CHLORIDE 0.9% INJ 10 ML SYR IV SCH ×3 (05:00→21:13)
[2021-06-30 05:12] LABS: ATYPICAL LYMPH 2 % (0-5); BASOPHILS 2 % (0-1); EOSINOPHILS 7 % (0-3); LYMPHOCYTES 35 % (16-44); MONOCYTES 2 % (0-5); NEUTROPHILS 52 % (28-66)
[2021-06-30 05:13] LABS: ANISOCYTOSIS 1+; PLATELET ESTIMATE DECREASED (NORMAL)
[2021-06-30 05:14] LABS: OVALOCYTES 1+
[2021-06-30 05:16] LABS: ALBUMIN 1.8 GM/DL (3.2-5.2); BILIRUBIN,TOTAL 0.4 MG/DL (0.2-1.0); CALCIUM LEVEL 7.5 MG/DL (8.8-10.2); CREATININE FOR GFR 1.58 MG/DL (0.55-1.30); GLOMERULAR FILTRATION RATE 35.2 (>45); MAGNESIUM LEVEL 1.8 MG/DL (1.8-2.4); POTASSIUM SERUM 3.6 MEQ/L (3.5-5.1); TOTAL PROTEIN 5.1 GM/DL (6.4-8.2)
[2021-06-30 07:25] VITALS: BP 98/52
[2021-06-30] MEDS: PANTOPRAZOLE 40MG VIAL (C9113 PER 1) IV SCH ×2 (09:00→21:13)
[2021-06-30] MEDS: LACTULOSE 20 GM/30 ML SYRUP UD PO SCH ×3 (09:00→21:00)
[2021-06-30] MEDS: TORSEMIDE 20 MG TAB PO SCH ×2 (09:01→21:12)
[2021-06-30] MEDS: ASCORBIC ACID 250 MG TAB PO SCH (09:01)
[2021-06-30] MEDS: MAGNESIUM OXIDE 400MG TAB (MAG-OX) PO SCH ×3 (09:01→21:13)
[2021-06-30] MEDS: VITAMIN D 1,000 INTERNATIONAL UNITS TABLET PO SCH (09:02)
[2021-06-30] MEDS: ENOXAPARIN 40MG/0.4ML SYRINGE (J1650 PER 10MG) SC SCH (09:02)
[2021-06-30] MEDS: cefTRIAXone SOD 2 GM in D5W MINI-BAG PLUS 50 ML IV SCH (09:03)
[2021-06-30] MEDS: LEVEMIR (INSULIN DETEMIR) 1 UNITS/0.01ML SC SCH ×2 (09:04→21:00)
[2021-06-30] MEDS: OCTREOTIDE ACETATE 1,200 MCG in NS 238.8 ML IV SCH (09:04)
[2021-06-30] MEDS: MIDODRINE 5 MG TAB PO SCH ×3 (09:05→21:13)
[2021-06-30] MEDS: rifAXIMin 550 MG TAB (XIFAXAN) PO SCH ×2 (09:05→21:13)
[2021-06-30] MEDS: SPIRONOLACTONE 50 MG TAB PO SCH (09:05)
[2021-06-30] MEDS: HumaLOG INSULIN (NovoLOG) PER UNIT SC SCH ×4 (09:06→21:00)
[2021-06-30] MEDS: SUCRALFATE 1 GM TAB PO SCH ×4 (09:07→21:12)
[2021-06-30 12:01] VITALS: BP 100/60
[2021-06-30 12:02] LABS: HEMATOCRIT 24.6 % (36.0-47.0); HEMOGLOBIN 7.7 g/dl (12.0-15.5)
--- NOTE | 2021-06-30 14:07 | IPNPDOC ---
Text Note Date of Service The patient was seen on 06/30/21. NOTE Subjective: Patient is a 65-year-old female present to the hospital with conf usion. Patient was also found to have GI bleed and started on octreotide and ceftriaxone 4 days ago. Patient had a paracentesis 2 days ago. Patient is feeling better and is less confused today. Patient did not have any events overnight. Review of systems: General: Patient denies fevers HEENT: Patient denies headaches Cardiovascular: Patient denies chest pain Respiratory: Patient denies shortness of breath, cough GI: Patient denies abdominal pain, nausea, vomiting, diarrhea : Patient denies increased frequency or pain with urination Extremities: Patient denies swelling or pain in extremities Neurological: Patient denies numbness or tingling in legs Physical exam: Vitals: See below General: Alert and oriented female patient who was sitting up in bed will walked in the room. Patient not appear to be in any acute distress. HEENT: Normocephalic, atraumatic, moist mucous membranes. Neck: No lymphadenopathy or thyromegaly Cardiac: Regular rate and rhythm, no murmurs, normal S1, normal S2 Pulm: Diminished breath sounds in bilateral bases with upper lungs clear to auscultation bilaterally. Abd: Nondistended, nontender to palpation, normal bowel sounds Ext: No edema bilateral lower extremities Labs: See below Imaging: No new imaging has been performed. Assessment/plan: 55-year-old female within the emergency department more confusion over the past few days with a long history of decompensated liver cirrhosis with numerous admissions over the past 6 months for hepatic encephalopathy. 1. Hepatic encephalopathy. Patient's ammonia level is improved. Continue lactulose and rifaximin. Patient's hepatic encephalopathy may have been secondary to a slow GI bleed. Patient's initial occult blood was positive. Patient had variceal banding performed in May 2021. Continue to monitor patient's mental status. 2. Gastrointestinal bleeding. Patient was started on octreotide. This is day 4. Patient's H&H has stabilized. We have discontinued the octreotide at this time we will continue to monitor the patient's H&H. 3. Liver cirrhosis secondary to Akins/moderate ascites. Paracentesis 2 days ago did not reveal positive findings for spontaneous bacterial peritonitis. Patient apparently has an appointment in July to discuss possible liver transplantation. Patient's meld score is 14. 4. Esophageal varices with cirrhosis. EGD was done in May 2021. Found to have grade 2 esophageal varices with portal hypertension. Varices were banded. 5. Acute kidney injury. Most likely secondary to volume depletion. This is improving. 6. Diabetes mellitus. Patient will continue with insulin therapy. 7. Diabetic neuropathy. Continue with home medications. DVT Prophylaxis: Teds and sequentials Disposition: Pending stabilization and hemoglobin and improvement in mental status. VS,Fishbone, I+O VS, Fishbone, I+O Laboratory Tests 06/29/21 17:07 06/30/21 04:32 06/30/21 11:42 Vital Signs Date Time Temp Pulse Resp B/P (MAP) Pulse Ox O2 Delivery O2 Flow Rate FiO2 06/30/21 12:01 97.9 56 16 100/60 (73) 96 Room Air I&O- Last 24 Hours up to 6 AM 06/30/21 06:00 Intake Total 1410 ml Output Total 2000 ml Balance -590 ml KEANU CONTRERAS DO Jun 30, 2021 14:07
[2021-06-30 16:00] VITALS: BP 118/60
[2021-06-30 18:36] LABS: HEMATOCRIT 25.9 % (36.0-47.0); HEMOGLOBIN 8.1 g/dl (12.0-15.5)
[2021-06-30] MEDS: BACTRIM 160MG/800MG DS TAB PO SCH (21:12)
[2021-07-01] VITALS: BP 99/46
[2021-07-01 04:00] VITALS: BP 94/38
[2021-07-01 05:19] LABS: HEMATOCRIT 23.5 % (36.0-47.0); HEMATOCRIT 23.8 % (36.0-47.0); HEMOGLOBIN 7.5 g/dl (12.0-15.5); HEMOGLOBIN 7.6 g/dl (12.0-15.5); MEAN CORPUSCULAR HEMOGLOBIN 31.1 pg (27.0-33.0); MEAN CORPUSCULAR HGB CONC 31.9 g/dl (32.0-36.5); MEAN CORPUSCULAR VOLUME 97.5 fl (80.0-96.0); PLATELET COUNT, AUTOMATED 112 10^3/uL (150-450); RED BLOOD COUNT 2.41 10^6/uL (4.00-5.40); WHITE BLOOD COUNT 3.2 10^3/uL (4.0-10.0)
[2021-07-01 05:45] LABS: ALBUMIN 1.8 GM/DL (3.2-5.2); BILIRUBIN,TOTAL 0.5 MG/DL (0.2-1.0); CALCIUM LEVEL 7.1 MG/DL (8.8-10.2); CREATININE FOR GFR 1.64 MG/DL (0.55-1.30); GLOMERULAR FILTRATION RATE 33.7 (>45); MAGNESIUM LEVEL 1.7 MG/DL (1.8-2.4); POTASSIUM SERUM 4.2 MEQ/L (3.5-5.1); TOTAL PROTEIN 4.9 GM/DL (6.4-8.2)
[2021-07-01] MEDS: LEVOTHYROXINE 25MCG TABLET (0.025MG) PO SCH (05:56)
[2021-07-01] MEDS: SODIUM CHLORIDE 0.9% INJ 10 ML SYR IV SCH ×3 (05:57→22:00)
[2021-07-01 06:04] LABS: BASOPHILS 1 % (0-1); EOSINOPHILS 2 % (0-3); LYMPHOCYTES 29 % (16-44); METAMYELOCYTES 2 % (0-0); MONOCYTES 4 % (0-5); NEUTROPHILS 62 % (28-66)
[2021-07-01 06:06] LABS: PLATELET ESTIMATE DECREASED (NORMAL)
[2021-07-01 06:07] LABS: ANISOCYTOSIS 1+; OVALOCYTES 1+
[2021-07-01 07:28] VITALS: BP 106/56
[2021-07-01] MEDS: PANTOPRAZOLE 40MG VIAL (C9113 PER 1) IV SCH ×2 (07:56→20:45)
[2021-07-01] MEDS: ENOXAPARIN 40MG/0.4ML SYRINGE (J1650 PER 10MG) SC SCH (07:56)
[2021-07-01] MEDS: LEVEMIR (INSULIN DETEMIR) 1 UNITS/0.01ML SC SCH ×2 (07:57→23:06)
[2021-07-01] MEDS: HumaLOG INSULIN (NovoLOG) PER UNIT SC SCH ×4 (07:57→23:05)
[2021-07-01] MEDS: LACTULOSE 20 GM/30 ML SYRUP UD PO SCH ×3 (07:58→20:45)
[2021-07-01] MEDS: BACTRIM 160MG/800MG DS TAB PO SCH ×2 (07:58→20:46)
[2021-07-01] MEDS: MAGNESIUM OXIDE 400MG TAB (MAG-OX) PO SCH ×3 (07:58→20:47)
[2021-07-01] MEDS: ASCORBIC ACID 250 MG TAB PO SCH (07:58)
[2021-07-01] MEDS: VITAMIN D 1,000 INTERNATIONAL UNITS TABLET PO SCH (07:59)
[2021-07-01] MEDS: TORSEMIDE 20 MG TAB PO SCH ×2 (07:59→20:46)
[2021-07-01] MEDS: SUCRALFATE 1 GM TAB PO SCH ×4 (08:00→20:45)
[2021-07-01] MEDS: SPIRONOLACTONE 50 MG TAB PO SCH (08:00)
[2021-07-01] MEDS: MIDODRINE 5 MG TAB PO SCH ×3 (08:00→20:47)
[2021-07-01] MEDS: rifAXIMin 550 MG TAB (XIFAXAN) PO SCH ×2 (08:00→20:46)
[2021-07-01] MEDS: tiZANidine 4 MG TAB PO PRN (10:21)
--- NOTE | 2021-07-01 12:04 | IPNPDOC ---
Text Note Date of Service The patient was seen on 07/01/21. NOTE Subjective: Patient is a 65-year-old female presented to hospital with sukh matt. Patient was also found to have a GI bleed and was started on octreotide and ceftriaxone 4 days ago. Patient was transitioned off octreotide and was switched to Bactrim yesterday. Patient had paracentesis 3 days ago. Patient is feeling better today. Review of systems: General: Patient denies fevers HEENT: Patient denies headaches Cardiovascular: Patient denies chest pain Respiratory: Patient denies shortness of breath, cough GI: Patient denies abdominal pain, nausea, vomiting, diarrhea : Patient denies increased frequency or pain with urination Extremities: Patient denies swelling or pain in extremities Neurological: Patient denies numbness or tingling in legs Physical exam: Vitals: See below General: Alert and oriented female who was sitting in bed when I walked in the room. Patient not appear to be in any acute distress. HEENT: Normocephalic, atraumatic, moist mucous membranes. Neck: No lymphadenopathy or thyromegaly Cardiac: Regular rate and rhythm, no murmurs, normal S1, normal S2 Pulm: Diminished in the bases but clear to auscultation bilaterally. No wheezes, rhonchi, rales Abd: Nondistended, nontender to palpation, normal bowel sounds Ext: No edema bilateral lower extremities Labs: See below Imaging: No new imaging has been performed Assessment/plan: 65-year-old female who presented to the emergency department more confused over the past few days with a long history of decompensated liver cirrhosis with numerous admissions over the past few months for hepatic encephalopathy. 1. Hepatic encephalopathy. Patient's ammonia level did increase today however, she is not confused. Patient has been getting 2 doses of lactulose instead of her usual 3. Patient will continue with lactulose and rifaximin. Patient's hepatic encephalopathy may have been secondary to a slow GI bleed. Patient had variceal banding performed in May 2021. Continue to monitor the patient's mental status. 2. Gastrointestinal bleeding. Patient was started on octreotide and this was discontinued yesterday. Patient's H&H has stabilized around 7.5-8.2. If the patient's hemoglobin drops, she may need more blood products. 3. Liver cirrhosis secondary to Akins/moderate ascites. Paracentesis 3 days ago did not reveal positive findings for spontaneous bacterial peritonitis. Patient apparently has an appointment in July 2021 to discuss possible liver transplant. 4. Esophageal varices with cirrhosis. EGD was done in May 2021. Found to have grade 2 esophageal varices with portal hypertension. Varices were banded. 5. Acute kidney injury. Most likely secondary to volume depletion. This is improved. 6. Diabetes mellitus. Continue with insulin therapy and consistent carb diet. 7. Diabetic neuropathy. Continue home medications. DVT Prophylaxis: Teds and sequentials Disposition: Pending stabilization and hemoglobin. Possible discharge tomorrow. Patient will be transferred to the medical surgical floor today. VS,Fishbone, I+O VS, Fishbone, I+O Laboratory Tests 06/30/21 18:15 07/01/21 04:55 Vital Signs Date Time Temp Pulse Resp B/P (MAP) Pulse Ox O2 Delivery O2 Flow Rate FiO2 07/01/21 07:28 97.3 60 18 106/56 (73) 98 Room Air I&O- Last 24 Hours up to 6 AM 07/01/21 06:00 Intake Total 1360 ml Balance 1360 ml KEANU CONTRERAS DO Jul 01, 2021 12:04
[2021-07-01 16:00] VITALS: BP 115/60
[2021-07-01 18:00] VITALS: BP 120/45
[2021-07-01 20:35] VITALS: BP 129/45
[2021-07-02 05:43] VITALS: BP 103/42
[2021-07-02] MEDS: LEVOTHYROXINE 25MCG TABLET (0.025MG) PO SCH (05:48)
[2021-07-02] MEDS: SODIUM CHLORIDE 0.9% INJ 10 ML SYR IV SCH (05:56)
[2021-07-02] MEDS: HumaLOG INSULIN (NovoLOG) PER UNIT SC SCH ×2 (07:53→13:16)
[2021-07-02] MEDS: SUCRALFATE 1 GM TAB PO SCH ×2 (07:53→13:16)
[2021-07-02 08:01] LABS: HEMATOCRIT 24.6 % (36.0-47.0); MEAN CORPUSCULAR HGB CONC 32.5 g/dl (32.0-36.5); MEAN CORPUSCULAR VOLUME 95.3 fl (80.0-96.0); PLATELET COUNT, AUTOMATED 137 10^3/uL (150-450); RED BLOOD COUNT 2.58 10^6/uL (4.00-5.40); WHITE BLOOD COUNT 4.8 10^3/uL (4.0-10.0)
[2021-07-02 08:23] LABS: BILIRUBIN,TOTAL 0.5 MG/DL (0.2-1.0); CREATININE FOR GFR 1.85 MG/DL (0.55-1.30); GLOMERULAR FILTRATION RATE 29.3 (>45); MAGNESIUM LEVEL 1.9 MG/DL (1.8-2.4); POTASSIUM SERUM 4.2 MEQ/L (3.5-5.1); TOTAL PROTEIN 5.7 GM/DL (6.4-8.2)
[2021-07-02 08:57] LABS: ATYPICAL LYMPH 1 % (0-5); BASOPHILS 1 % (0-1); EOSINOPHILS 4 % (0-3); LYMPHOCYTES 31 % (16-44); MONOCYTES 8 % (0-5); NEUTROPHILS 54 % (28-66)
[2021-07-02 08:58] LABS: PLATELET ESTIMATE DECREASED (NORMAL)
[2021-07-02] MEDS: LACTULOSE 20 GM/30 ML SYRUP UD PO SCH (10:01)
[2021-07-02] MEDS: PANTOPRAZOLE 40MG VIAL (C9113 PER 1) IV SCH (10:01)
[2021-07-02] MEDS: LEVEMIR (INSULIN DETEMIR) 1 UNITS/0.01ML SC SCH (10:01)
[2021-07-02] MEDS: ASCORBIC ACID 250 MG TAB PO SCH (10:02)
[2021-07-02] MEDS: ENOXAPARIN 40MG/0.4ML SYRINGE (J1650 PER 10MG) SC SCH (10:02)
[2021-07-02] MEDS: VITAMIN D 1,000 INTERNATIONAL UNITS TABLET PO SCH (10:03)
[2021-07-02] MEDS: MAGNESIUM OXIDE 400MG TAB (MAG-OX) PO SCH (10:03)
[2021-07-02] MEDS: rifAXIMin 550 MG TAB (XIFAXAN) PO SCH (10:03)
[2021-07-02] MEDS: BACTRIM 160MG/800MG DS TAB PO SCH (10:04)
[2021-07-02] MEDS: TORSEMIDE 20 MG TAB PO SCH (10:05)
[2021-07-02] MEDS: MIDODRINE 5 MG TAB PO SCH (10:05)
[2021-07-02] MEDS: SPIRONOLACTONE 50 MG TAB PO SCH (10:05)
--- NOTE | 2021-07-02 13:26 | DS.PDOC ---
Discharge Summary General Date of Admission Jun 26, 2021 at 11:16 Date of Discharge 07/02/2021 Attending Physician: KEANU CONTRERAS DO Discharge Summary PROCEDURES PERFORMED DURING STAY: Right internal jugular central line ADMITTING DIAGNOSES: 1. Hepatic encephalopathy. 2. Liver cirrhosis secondary to CAMPBELL 3. Hyperammonemia 4. Esophageal varices and cirrhosis 5. Acute kidney injury 6. Diabetes 7. Diabetic neuropathy 8. Anemia DISCHARGE DIAGNOSES: 1. Hepatic encephalopathy. 2. Gastrointestinal bleeding 3. Liver cirrhosis secondary to Campbell 4. Hyperammonemia 5. Esophageal varices and cirrhosis 6. Ascites 7. Chronic kidney disease stage III 8. Diabetes 9. Diabetic neuropathy 10. Anemia COMPLICATIONS/CHIEF COMPLAINT: Hepatic Encephalopathy. HISTORY OF PRESENT ILLNESS: Patient is a 65-year-old female with Campbell cirrhosis, type II varices, recurrent hepatic encephalopathy, coronary artery disease status post stenting,, type 2 diabetes mellitus and hypertension who was brought to the hospital today with altered mental status. According the patient's has become more confused with months for back cephalopathy. In the emergency department patient had pneumonia level of 203. Patient also had small to moderate volume ascites. Patient was admitted for further work-up and treatment for hepatic encephalopathy. HOSPITAL COURSE: Patient was still unresponsive after her first day of hospitalization. Ammonia had increased to 238. Lactulose per rectum was given. Patient's CODE STATUS was changed by the patient's to DO NOT RESUSCITATE/DO NOT INTUBATE. Patient had her hemoglobin dropped to 6.8 and received a unit of blood. The gastroenterology team was consulted and recommended to start IV ceftriaxone and octreotide drip. Patient remained on IV ceftriaxone and octreotide for 4 days. Patient had her hemoglobin trended and remained around 8 throughout the rest of her hospitalization. Patient had paracentesis on 06/28/2021 which yielded 1100 mL of yellow fluid. This fluid was sent to the laboratory for evaluation did not show any evidence of spontaneous bacterial peritonitis. Patient continued to improve. Patient's mental status improved and patient was alert and oriented on 06/29/2021. Patient's hemoglobin was continue to be trended. Patient had octreotide stopped and her hemoglobin again remained stable. Patient was transitioned to oral Bactrim for prophylaxis against SBP but this was stopped at the time of discharge. I did have a conversation with the patient prior to discharge about her condition being a reversible and she will most likely continue to have issues with hepatic encephalopathy unless she is able to have a liver transplant. I advised the patient to avoid using prune juice and explained to the patient that is not the bowel movements that get rid of the ammonia but it is the lactulose causing the bowel movements that helps remove the ammonia from the body. Patient seemed to understand this and will continue taking her lactulose to have 3 soft bowel movements in 24 hours. Patient was deemed ready for discharge and was discharged home on 07/02/2021 DISCHARGE MEDICATIONS: Please see below. ALLERGIES: Please see below. PHYSICAL EXAMINATION ON DISCHARGE: VITAL SIGNS: Please see below. General: Alert and oriented female patient who was sitting up in bed when I walked in the room. Patient did not appear to be in any acute distress. HEENT: Normocephalic, atraumatic, moist mucous membranes. Neck: No lymphadenopathy or thyromegaly Cardiac: Regular rate and rhythm, no murmurs, normal S1, normal S2 Pulm: Clear to auscultation bilaterally. No wheezes, rhonchi, rales Abd: Nondistended, nontender to palpation, normal bowel sounds Ext: No edema bilateral lower extremities LABORATORY DATA: Please see below. IMAGING: Chest x-ray performed on 06/26/2021 is reported to show no interval samaniego ge. No active process. Head CT performed without contrast on 06/26/2021 is reported to show negative brain CT. Chest x-ray performed on 06/27/2021 was reported to show no evidence of pneumothorax. Mild prominence of vascular markings. PROGNOSIS: Poor ACTIVITY: As tolerated. DIET: Consistent carbohydrate DISCHARGE PLAN: Discharge home with home health service however, patient has refused this in the past DISPOSITION: . DISCHARGE INSTRUCTIONS: 1. Follow-up with your primary care provider within 3 to 5 days discharge. 2. Continue take lactulose 3 times a day in order to have 3 bowel movements in 24 hours 3. Return the emergency department if symptoms worsen ITEMS TO FOLLOWUP ON ON OUTPATIENT: 1. None DISCHARGE CONDITION: Stable. TIME SPENT ON DISCHARGE: 35 minutes. Vital Signs/I&Os Vital Signs Date Time Temp Pulse Resp B/P (MAP) Pulse Ox O2 Delivery O2 Flow Rate FiO2 07/02/21 05:46 62 16 97 07/02/21 05:43 97.9 103/42 (62) 07/01/21 20:35 Room Air I&O- Last 24 Hours up to 6 AM 8/20/21 06:00 Intake Total 1290 ml Output Total 1500 ml Balance -210 ml Laboratory Data Labs 24H Laboratory Tests 2 07/01/21 16:54: Bedside Glucose (Misc Panel) 156H 07/01/21 21:03: Bedside Glucose (Misc Panel) 294H 07/01/21 23:04: Bedside Glucose (Misc Panel) 290H 07/02/21 07:38: Bedside Glucose (Misc Panel) 118H 07/02/21 07:41: Neutrophils (%) (Auto) , Nucleated Red Blood Cells % (auto) 0.0, Neutrophils 54, Band Neutrophils 1, Lymphocytes (Manual) 31, Monocytes (Manual) 8H, Eosinophils (Manual) 4H, Basophils (Manual) 1, Atypical Lymphocytes 1, Red Blood Cell Morphology NORMAL, Platelet Estimate DECREASED, Anion Gap 5L, Glomerular Filtration Rate 29.3L, Calcium Level 8.0L, Magnesium Level 1.9, Total Bilirubin 0.5, Aspartate Amino Transf (AST/SGOT) 38H, Alanine Aminotransferase (ALT/SGPT) 17, Alkaline Phosphatase 224H, Ammonia 102H, Total Protein 5.7L, Albumin 2.0L, Albumin/Globulin Ratio 0.5L 07/02/21 11:55: Bedside Glucose (Misc Panel) 261H CBC/BMP Laboratory Tests 07/02/21 07:41 FSBS Laboratory Tests Test 07/01/21 16:54 07/01/21 21:03 07/01/21 23:04 07/02/21 07:38 Range/Units Bedside Glucose (Misc Panel) 156 294 290 118 80-115 MG/DL Test 07/02/21 11:55 Range/Units Bedside Glucose (Misc Panel) 261 80-115 MG/DL Microbiology Microbiology 06/28/21 Acid Fast Stain, Received Pending 06/28/21 Mycobacterial Culture, Received Pending 06/28/21 Fungal Smear, Received Pending 06/28/21 Fungal Culture, Received Pending 06/28/21 Gram Stain - Final, Complete 06/28/21 Body Fluid Culture - Final, Complete 06/28/21 Anaerobic Culture - Final, Complete 06/26/21 Stool Occult Blood (REI) - Final, Complete Discharge Medications Scheduled Allopurinol (Allopurinol) 100 Mg Tablet, 100 MG PO DAILY, (Reported) Ascorbic Acid (Vitamin C) 250 Mg Tablet, 250 MG PO DAILY, (Reported) Cholecalciferol (Vitamin D3) (Vitamin D3) 1,000 Unit Tablet, 1,000 UNITS PO DAILY, (Reported) Gabapentin (Gabapentin) 100 Mg Capsule, 100 MG PO BID, (Reported) Insulin Human Lispro (Novolog) 100 U/Ml Inj, 1 DOSE SC BID, (Reported) PER SLIDING SCALE Lactulose (Constulose) 10 Gm/15 Ml Solution, 30 ML PO QID, (Reported) Levothyroxine Sodium (Levothyroxine Sodium) 25 Mcg Tablet, 25 MCG PO DAILY, (Reported) Magnesium Oxide (Magnesium Oxide) 400 Mg Tablet, 400 MG PO TID, (Reported) Midodrine HCl (Midodrine HCl) 10 Mg Tablet, 15 MG PO TID, (Reported) Omeprazole (Omeprazole) 40 Mg Capsule.dr, 40 MG PO DAILY, (Reported) Rifaximin (Xifaxan) 550 Mg Tablet, 550 MG PO BID, (Reported) Spironolactone (Spironolactone) 50 Mg Tablet, 50 MG PO DAILY, (Reported) Sucralfate (Sucralfate) 1 Gm Tablet, 1 GM PO ACHS, (Reported) Torsemide (Torsemide) 20 Mg Tablet, 20 MG PO BID, (Reported) Scheduled PRN Tizanidine HCl (Tizanidine HCl) 4 Mg Tablet, 4 MG PO TID PRN for SPASMS, (Reported) Allergies Coded Allergies: No Known Drug Allergies (Verified Allergy, Unknown, 01/19/21) KEANU CONTRERAS DO Jul 02, 2021 13:26
== END 2021-07-02 14:10 | disposition home or self-care (01) | DRG 442 ==
LOC: M ED 08:22 → M ED INP 11:16 → ENRESERV 12:12 → M MS5PR 12:50 → M PCU 06-27 16:14 → M MS5PR 07-01 17:59
PROVIDERS: ADMIT Internal Medicine; ATTEND Family Medicine
PROC: 02HV33Z Insertion of Infusion Device into Superior Vena Cava, Percutaneous Approach (ICD-10-PCS; principal; 2021-06-27)
PROC: 30233N1 Transfusion of Nonautologous Red Blood Cells into Peripheral Vein, Percutaneous Approach (ICD-10-PCS; 2021-06-27)
PROC: 0W9G3ZX Drainage of Peritoneal Cavity, Percutaneous Approach, Diagnostic (ICD-10-PCS; 2021-06-28)
DX: K72.90 Hepatic failure, unspecified without coma (principal); I85.10 Secondary esophageal varices without bleeding; E72.20 Disorder of urea cycle metabolism, unspecified; N17.9 Acute kidney failure, unspecified; K92.2 Gastrointestinal hemorrhage, unspecified; R18.8 Other ascites; K74.69 Other cirrhosis of liver; K75.81 Nonalcoholic steatohepatitis (NASH); E11.40 Type 2 diabetes mellitus with diabetic neuropathy, unspecified; D64.9 Anemia, unspecified; Z66 Do not resuscitate; I25.10 Atherosclerotic heart disease of native coronary artery without angina pectoris; Z95.5 Presence of coronary angioplasty implant and graft; N18.30 Chronic kidney disease, stage 3 unspecified; E11.22 Type 2 diabetes mellitus with diabetic chronic kidney disease; Z79.4 Long term (current) use of insulin; Z79.899 Other long term (current) drug therapy

== ENCOUNTER → 2021-07-13 | Outpatient (REF) | payer OTHER ==
[~2021-07-13] MED LIST changes: +CONS10SO3 PO
== END ==
LOC: M LAB REF 16:45
PROVIDERS: ATTEND Internal Medicine Nephrology
DX: E83.42 Hypomagnesemia (principal)

== ENCOUNTER 2021-07-14 18:35 | Emergency (ER) | payer OTHER ==
[~2021-07-14] VITALS: Ht 162.6 cm; Wt 81.8 kg
[~2021-07-14 18:35] MED LIST changes: -KLOR10TA76 PO; +POTA-136 PO
[2021-07-14] MEDS ORDERED: NS 1,000 ML IV SCH (20:45)
[2021-07-14] MEDS ORDERED: PANTOPRAZOLE 40MG VIAL (C9113 PER 1) IV ONE (20:45)
[2021-07-14 21:01] LABS: MEAN CORPUSCULAR HEMOGLOBIN 31.8 pg (27.0-33.0); MEAN CORPUSCULAR HGB CONC 31.7 g/dl (32.0-36.5); MEAN CORPUSCULAR VOLUME 100.5 fl (80.0-96.0); PLATELET COUNT, AUTOMATED 138 10^3/uL (150-450); RED BLOOD COUNT 2.01 10^6/uL (4.00-5.40); WHITE BLOOD COUNT 4.5 10^3/uL (4.0-10.0)
[2021-07-14 21:06] LABS: HEMATOCRIT 20.2 % (36.0-47.0)
[2021-07-14 21:08] LABS: HEMOGLOBIN 6.4 g/dl (12.0-15.5)
[2021-07-14 21:11] LABS: INR 1.44
[2021-07-14 21:12] LABS: PARTIAL THROMBOPLASTIN TIME 37.9 SECONDS (25.9-37.0)
[2021-07-14 21:40] LABS: EOSINOPHILS 3 % (0-3); LYMPHOCYTES 22 % (16-44); MONOCYTES 6 % (0-5); NEUTROPHILS 68 % (28-66)
[2021-07-14 21:41] LABS: ANISOCYTOSIS 1+; OVALOCYTES 1+; PLATELET ESTIMATE DECREASED (NORMAL); POIKILOCYTOSIS 1+
[2021-07-14 21:42] LABS: ALBUMIN 1.9 GM/DL (3.2-5.2); ALT/SGPT 21 U/L (12-78); BILIRUBIN,DIRECT 0.4 MG/DL (0.0-0.2); BILIRUBIN,TOTAL 0.8 MG/DL (0.2-1.0); BLOOD UREA NITROGEN 47 MG/DL (7-18); CALCIUM LEVEL 8.4 MG/DL (8.8-10.2); CARBON DIOXIDE LEVEL 28 MEQ/L (21-32); CHLORIDE LEVEL 102 MEQ/L (98-107); CK-MB VALUE MASS 5.9 NG/ML (<3.6); CPK CREATINE PHOSPHOKINASE 106 U/L (26-192); CREATININE FOR GFR 2.07 MG/DL (0.55-1.30); GLOMERULAR FILTRATION RATE 25.7 (>45); GLUCOSE, FASTING 372 MG/DL (70-100); LIPASE 253 U/L (73-393); MB/CK RELATIVE INDEX 5.57 (< OR =4); POTASSIUM SERUM 4.7 MEQ/L (3.5-5.1); SODIUM LEVEL 138 MEQ/L (136-145); TOTAL PROTEIN 5.9 GM/DL (6.4-8.2); TROPONIN I < 0.02 NG/ML (< 0.10)
[2021-07-14] MEDS ORDERED: PANTOPRAZOLE SODIUM 40 MG in D5W 50 ML IV SCH (22:15)
[2021-07-14 22:52] VITALS: BP 111/57
[2021-07-14 23:07] VITALS: BP 104/52
[2021-07-14 23:37] VITALS: BP 115/56
[2021-07-14] MEDS ORDERED: OCTREOTIDE ACETATE 1,200 MCG in NS 238.8 ML IV SCH (23:55)
[2021-07-14 23:57] LABS: RSV AMPLIFICATION NEGATIVE (NEGATIVE)
[2021-07-15 00:54] VITALS: BP 108/63
--- NOTE | 2021-07-16 10:48 | ECGEPIP ---
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
== END 2021-07-15 01:19 | disposition short-term general hospital (02) ==
LOC: M ED 18:35
DX: K92.2 Gastrointestinal hemorrhage, unspecified (principal); D62 Acute posthemorrhagic anemia; R94.31 Abnormal electrocardiogram [ECG] [EKG]; I25.10 Atherosclerotic heart disease of native coronary artery without angina pectoris; E11.9 Type 2 diabetes mellitus without complications; I10 Essential (primary) hypertension; K76.89 Other specified diseases of liver; K75.81 Nonalcoholic steatohepatitis (NASH); Z79.4 Long term (current) use of insulin; Z79.890 Hormone replacement therapy; Z79.899 Other long term (current) drug therapy; Z98.890 Other specified postprocedural states; Z87.891 Personal history of nicotine dependence
CPT/HCPCS: 36430; 80048; 80076; 82550; 82553; 83690; 84484; 85025; 85610; 85730; 86850; 86900; 86901; 86920; 87631; 93005; 93041; 96361; 96374; 96375; 99285; C9113; J2354; P9016

== ENCOUNTER 2021-07-27 10:01 | Emergency (ER) | payer OTHER ==
[~2021-07-27] VITALS: Ht 162.6 cm; Wt 72.7 kg
[2021-07-27 16:21] LABS: BASO % 0.8 % (0.0-1.0); EOS # 0.2 10^3/uL (0.0-0.5); EOS % 3.4 % (0.0-3.0); HEMATOCRIT 27.8 % (36.0-47.0); HEMOGLOBIN 8.7 g/dl (12.0-15.5); LYMPH # 1.4 10^3/uL (1.5-5.0); LYMPH % 28.9 % (24.0-44.0); MEAN CORPUSCULAR HEMOGLOBIN 30.7 pg (27.0-33.0); MEAN CORPUSCULAR HGB CONC 31.3 g/dl (32.0-36.5); MEAN CORPUSCULAR VOLUME 98.2 fl (80.0-96.0); MONO # 0.4 10^3/uL (0.0-0.8); MONO % 8.5 % (2.0-8.0); NEUTROPHILS # 2.7 10^3/uL (1.5-8.5); NEUTROPHILS % 58.2 % (36.0-66.0); PLATELET COUNT, AUTOMATED 124 10^3/uL (150-450); RED BLOOD COUNT 2.83 10^6/uL (4.00-5.40); WHITE BLOOD COUNT 4.7 10^3/uL (4.0-10.0)
[2021-07-27 16:51] LABS: INR 1.29; PROTHROMBIN TIME 16.5 SECONDS (12.7-14.5)
[2021-07-27 16:58] LABS: ALBUMIN 2.1 GM/DL (3.2-5.2); BILIRUBIN,TOTAL 1.3 MG/DL (0.2-1.0); CALCIUM LEVEL 8.8 MG/DL (8.8-10.2); CREATININE FOR GFR 1.76 MG/DL (0.55-1.30); GLOMERULAR FILTRATION RATE 30.9 (>45); POTASSIUM SERUM 4.3 MEQ/L (3.5-5.1); TOTAL PROTEIN 6.5 GM/DL (6.4-8.2)
--- NOTE | 2021-07-27 17:03 | REP ---
INDICATION: amsand cough. COMPARISON: 06/27/2021. TECHNIQUE: Single portable AP view of the chest was performed. Study is performed at 4:21 p.m. and submitted for interpretation 4:56 p.m.. FINDINGS: There is no acute infiltrate or pulmonary edema. Lungs are clear. The heart is not significantly enlarged. The mediastinal silhouette is unremarkable. The visualized osseous structures are intact.There is an old left 5th rib fracture. IMPRESSION: No acute pulmonary disease. <Electronically signed by Santana Pacheco > 07/27/21 1429
[2021-07-27] MEDS ORDERED: LACTULOSE 20 GM/30 ML SYRUP UD PO ONE (17:30)
[2021-07-27 18:27] VITALS: BP 125/85
== END 2021-07-27 18:30 | disposition home or self-care (01) ==
LOC: M ED 10:01
DX: E72.20 Disorder of urea cycle metabolism, unspecified (principal); I50.9 Heart failure, unspecified; K74.60 Unspecified cirrhosis of liver; K72.90 Hepatic failure, unspecified without coma; Z79.899 Other long term (current) drug therapy; Z79.4 Long term (current) use of insulin

== ENCOUNTER → 2021-08-06 | Outpatient (REF) | payer OTHER | LOC: M LAB REF 12:46 | PROVIDERS: ATTEND Internal Medicine Nephrology | DX: N18.32 Chronic kidney disease, stage 3b (principal) ==

== ENCOUNTER 2021-08-09 09:12 | Outpatient (CLI) | payer OTHER ==
[~2021-08-09] VITALS: Ht 162.6 cm; Wt 77.3 kg
[2021-08-09 09:15] VITALS: BP 98/49
[2021-08-09 11:30] VITALS: BP 113/53
[2021-08-09 12:30] VITALS: BP 116/55
== END 2021-08-09 13:30 | disposition home or self-care (01) ==
LOC: M INFU 09:12
PROVIDERS: ATTEND Internal Medicine Nephrology
DX: D50.0 Iron deficiency anemia secondary to blood loss (chronic) (principal)
CPT/HCPCS: 36430; 36592; 86850; 86900; 86901; 86920; P9016

== ENCOUNTER 2021-08-10 09:45 | Inpatient (IN) | payer OTHER ==
[~2021-08-10] VITALS: Ht 162.6 cm; Wt 96.0 kg
[~2021-08-10 09:45] MED LIST changes: -CYMB60CA3 PO; +CYMB60CA4 PO; -MAGN400T3 PO; +MAGN400T33 PO
[2021-08-10 13:39] LABS: BASO # 0.1 10^3/uL (0.0-0.2); BASO % 0.6 % (0.0-1.0); EOS # 0.1 10^3/uL (0.0-0.5); EOS % 1.2 % (0.0-3.0); HEMATOCRIT 27.8 % (36.0-47.0); HEMOGLOBIN 8.9 g/dl (12.0-15.5); LYMPH # 1.6 10^3/uL (1.5-5.0); LYMPH % 18.7 % (24.0-44.0); MEAN CORPUSCULAR HEMOGLOBIN 31.2 pg (27.0-33.0); MEAN CORPUSCULAR VOLUME 97.5 fl (80.0-96.0); MONO # 1.2 10^3/uL (0.0-0.8); NEUTROPHILS # 5.6 10^3/uL (1.5-8.5); PLATELET COUNT, AUTOMATED 177 10^3/uL (150-450); RED BLOOD COUNT 2.85 10^6/uL (4.00-5.40); WHITE BLOOD COUNT 8.6 10^3/uL (4.0-10.0)
[2021-08-10 13:50] LABS: INR 1.4; PROTHROMBIN TIME 17.6 SECONDS (12.7-14.5)
[2021-08-10 13:51] LABS: PARTIAL THROMBOPLASTIN TIME 35.5 SECONDS (25.9-37.0)
[2021-08-10] MEDS ORDERED: NS 1,000 ML IV ONE (13:55)
[2021-08-10 14:13] LABS: ALBUMIN 1.9 GM/DL (3.2-5.2); ALT/SGPT 25 U/L (12-78); BILIRUBIN,DIRECT 0.9 MG/DL (0.0-0.2); BILIRUBIN,TOTAL 2.1 MG/DL (0.2-1.0); BLOOD UREA NITROGEN 62 MG/DL (7-18); CALCIUM LEVEL 8.5 MG/DL (8.8-10.2); CARBON DIOXIDE LEVEL 28 MEQ/L (21-32); CHLORIDE LEVEL 100 MEQ/L (98-107); CK-MB VALUE MASS 5.5 NG/ML (<3.6); CPK CREATINE PHOSPHOKINASE 105 U/L (26-192); CREATININE FOR GFR 2.64 MG/DL (0.55-1.30); GLOMERULAR FILTRATION RATE 19.4 (>45); GLUCOSE, FASTING 201 MG/DL (70-100); LIPASE 277 U/L (73-393); MB/CK RELATIVE INDEX 5.24 (< OR =4); POTASSIUM SERUM 5.7 MEQ/L (3.5-5.1); SODIUM LEVEL 132 MEQ/L (136-145); TOTAL PROTEIN 6.8 GM/DL (6.4-8.2); TROPONIN I < 0.02 NG/ML (< 0.10)
--- NOTE | 2021-08-10 14:29 | REP ---
INDICATION: lower abd pain/distension COMPARISON: 06/07/2021 TECHNIQUE: Axial noncontrast images from the lung bases to the pubic symphysis with coronal and sagittal reformations. This CT examination was performed using the following dose reduction techniques: Automated exposure control, adjustment of mA and/or kv according to the patient's size, and use of iterative reconstruction technique. FINDINGS: Lung bases demonstrate small left pleural effusion and minimal left lower lobe atelectasis. Significant amount of ascites noted throughout the abdomen and pelvis along with evidence for chronic cirrhosis including shrunken nodular appearance to the liver and mild splenomegaly. Pancreas, bilateral adrenal glands, and kidneys are relatively normal by noncontrast evaluation. Incidental small right renal hypodensities suggests cyst. Further secondary signs of cirrhosis include elements of mucosal thickening to loops of small and large bowel. A mild acute enteritis cannot definitively be excluded. Colonic diverticulosis noted without obvious acute diverticulitis and no evidence for free air to suggest bowel perforation. Pelvis demonstrates normal bladder and age-appropriate uterus/adnexa. No free air. No significant adenopathy. Musculoskeletal structures are intact and without acute osseous abnormality. IMPRESSION: 1. Significant amount of ascites and findings related to cirrhosis as described above. 2. Elements of bowel wall thickening likely reflect changes related to ascites and cirrhosis although a mild enteritis cannot be excluded. <Electronically signed by Michael Vincent > 08/10/21 [id number]
[2021-08-10 15:57] LABS: RSV AMPLIFICATION NEGATIVE (NEGATIVE)
[2021-08-10] MEDS ORDERED: GLUCOSE 4GM CHEW TABLET PO PRN (16:20)
[2021-08-10] MEDS ORDERED: DEXTROSE 50% 50 ML SYRINGE IV PRN (16:20)
[2021-08-10] MEDS ORDERED: GLUCAGON INJ 1MG VIAL SC PRN (16:20)
--- NOTE | 2021-08-10 16:20 | HPEPDOC ---
[facility] Medical History & Physical Date of Admission Aug 10, 2021 Date of Service: Aug 10, 2021 Attending Physician: KEANU CONTRERAS DO History and Physical CHIEF COMPLAINT: Confusion and chills HISTORY OF PRESENT ILLNESS: Patient is a 66-year-old female who presented to the emergency department today after her said that she was more confused than normal. Patient's been complaining of abdominal pain as well as chills. Patient states that she has pain in the lower right quadrant of her abdomen. Patient also says her abdomen feels more distended than it usually does. Patient had a scheduled blood transfusion yesterday as her hemoglobin in her nephrology office was quite low. Patient says that she has been feeling ill since then. Patient's been having chills. Patient denies any fevers. Patient was acting slightly more confused according to her who I spoke on the phone with so she was sent into the hospital. Patient does not have any other complaints at this time. PAST MEDICAL HISTORY: 1. Akins cirrhosis. 2. Obesity. 3. History of hepatic encephalopathy. 4. Hypertension 5. Type 2 diabetes with neuropathy 6. Esophageal varices PAST SURGICAL HISTORY: 1. Bilateral cataract removal. 2. Tonsillectomy . 3. EGD with esophageal varices banding. 4. Cardiac stent 5. Cholecystectomy 6. Right TKA 7. Right ankle ORIF 8. Colonoscopy 9. Multiple paracentesis SOCIAL HISTORY: Patient denies smoking, drinking alcohol, or illicit drug use. FAMILY HISTORY: Mother had a history of atrial fibrillation and diabetes mellitus ALLERGIES: Please see below. REVIEW OF SYSTEMS: General: Patient denies fevers HEENT: Patient denies headaches Cardiovascular: Patient denies chest pain Respiratory: Patient denies shortness of breath, cough GI: Patient reports abdominal pain as above but denies nausea, vomiting, or increased amount of stool from her normal due to lactulose : Patient denies increased frequency or pain with urination Extremities: Patient denies swelling or pain in extremities Neurological: Patient denies numbness or tingling in legs Skin: Patient denies any new rashes or lesions. Hematologic: Patient denies any easy bruising. Lymphatic: Patient denies any lumps lumps or bumps in neck, axilla, or groin HOME MEDICATIONS: Please see below. PHYSICAL EXAMINATION: VITAL SIGNS: Temperature 98.3, pulse 92, respiratory rate 18, blood pressure 141/63, pulse oximetry 99% on room air. General: Alert and oriented female patient who was laying on the stretcher in the emergency department room when I walked in. Patient did not appear to be in any acute distress. HEENT: Normocephalic, atraumatic, moist mucous membranes. Neck: No lymphadenopathy or thyromegaly Cardiac: Regular rate and rhythm, no murmurs, normal S1, normal S2 Pulm: Clear to auscultation bilaterally. No wheezes, rhonchi, rales Abd: Mildly distended, dull to percussion, tenderness to the right lower quadrant without rebound tenderness, normal bowel sounds Ext: 1+ pitting edema in the bilateral lower extremities. 2/4 dorsalis pedis pulses bilaterally Neuro: Patient was able to move all 4 extremities on command and reported equal sensation light touch in all 4 extremities. Skin: Skin of the head, neck, upper and lower extremities was examined did not show any evidence of rash or wounds. LABORATORY DATA: See below. IMAGING: CT of the abdomen and pelvis performed without contrast on 08/10/2021 was reported to show significant amount of ascites and findings related to cirrhosis including shrunken nodular appearance of the liver and mild splenomegaly. Evidence of bowel wall thickening likely reflect changes related to ascites and cirrhosis although mild enteritis cannot be excluded. MICROBIOLOGY: Please see below. ASSESSMENT: 66-year-old female who presented to the hospital with mild confusion and chills with abdominal pain was found to have ascites and an acute kidney injury on top of chronic renal disease. . PLAN: 1. Acute kidney injury on top of chronic kidney disease. Patient's creatinine is 2.64 today with a GFR of 19.4. Patient's says that the patient has been usually around a GFR of 30. This may be secondary to dehydration or secondary to the patient's ascites. Patient may also be getting over diuresed with a combination of dehydration. Patient well received 1 L fluids in the emergency department and we will recheck the labs to see if they are improving. Patient will also have paracentesis performed. 2. Ascites. Patient will have paracentesis performed today. Due to abdominal pain this will be a diagnostic paracentesis due to the risk of SBP. Until SBP can be ruled out, patient be started on Rocephin. 3. Hyperkalemia. Patient is on spironolactone to be held. This may be secondary to the patient's acute kidney injury. We will recheck after the patient's liter of fluid. 4. Hyponatremia. Again this may be secondary to the patient's acute renal injury. We will continue to monitor. 5. Mild hepatic encephalopathy patient does appear mildly confused today and according to the patient's she has been mildly confused at home. Patient's ammonia is elevated however, this is somewhat near her baseline. We will need to continue to monitor the patient's mental status and continue to give her home lactulose and titrate to 3 loose bowel movements every day. 6. Type 2 diabetes mellitus. Patient be placed on sliding scale and will be given a consistent carbohydrate diet. 7. Esophageal varices with history of gastrointestinal bleeding. Will need to monitor the patient's H&H very closely. 8. Cirrhosis secondary to Akins. Patient will need her ascites drained and we will continue to monitor. 9. DVT prophylaxis: Teds and sequentials 10. CODE STATUS: Patient is a DNR/DNI which I did confirm with the patient. Disposition: Patient be admitted to the medical surgical floor for further monitoring. I do expect the patient to be discharged after greater than or equal to 2 midnight stay Late entry: Patient told admission nursing that she wanted to be a full code. I went and spoke with the patient she states that if her heart were to stop beating she would like CPR to be done so that her son from [place] can can come up to her and say goodbye. I did mention that if her heart does stop beating we we will attempt to bring her back but we may not be able to but we will try. Patient will be made full code. Vital Signs Vital Signs Date Time Temp Pulse Resp B/P (MAP) Pulse Ox O2 Delivery O2 Flow Rate FiO2 08/10/21 09:46 98.4 95 18 141/63 (89) 99 Room Air Laboratory Data Labs 24H Laboratory Tests 2 08/10/21 12:40: Ammonia 67H 08/10/21 13:11: Prothrombin Time 17.6H, Prothromb Time International Ratio 1.40, Activated Partial Thromboplast Time 35.5, Anion Gap 4L, Glomerular Filtration Rate 19.4L, Calcium Level 8.5L, Total Bilirubin 2.1H, Direct Bilirubin 0.9H, Aspartate Amino Transf (AST/SGOT) 56H, Alanine Aminotransferase (ALT/SGPT) 25, Alkaline Phosphatase 302H, Total Creatine Kinase 105, Creatine Kinase MB 5.5H, Creatine Kinase MB Relative Index 5.24H, Troponin I < 0.02, Total Protein 6.8, Albumin 1.9L, Albumin/Globulin Ratio 0.4L, Lipase 277 08/10/21 13:12: Immature Granulocyte % (Auto) 0.5, Neutrophils (%) (Auto) 65.0, Lymphocytes (%) (Auto) 18.7L, Monocytes (%) (Auto) 14.0H, Eosinophils (%) (Auto) 1.2, Basophils (%) (Auto) 0.6, Neutrophils # (Auto) 5.6, Lymphocytes # (Auto) 1.6, Monocytes # (Auto) 1.2H, Eosinophils # (Auto) 0.1, Basophils # (Auto) 0.1, Nucleated Red Blood Cells % (auto) 0.0, Lactic Acid Level 2.2*H 08/10/21 13:33: POC Glucose (Misc Panel) 199H, POC Sodium (Misc Panel) 131L, POC Potassium (Misc Panel) 6.4*H, POC Chloride (Misc Panel) 99, POC Total CO2 (Misc Panel) 26.0, POC Blood Urea Nitrogen (Misc Panel 73H, POC Ionized Calcium (Misc Panel) 3.9L, POC Creatinine (Misc Panel) 2.3H, POC Hematocrit (Misc Panel) 28.0L 08/10/21 15:12: Coronavirus (COVID-19)(PCR) NEGATIVE, Influenza Type A (RT-PCR) NEGATIVE, Influenza Type B (RT-PCR) NEGATIVE, Respiratory Syncytial Virus (PCR) NEGATIVE CBC/BMP Laboratory Tests 08/10/21 13:11 08/10/21 13:12 Home Medications Scheduled Allopurinol (Allopurinol) 100 Mg Tablet, 100 MG PO QHS Ascorbic Acid (Vitamin C) 250 Mg Tablet, 250 MG PO QHS Cholecalciferol (Vitamin D3) (Vitamin D3) 1,000 Unit Tablet, 1,000 UNITS PO QHS Gabapentin (Gabapentin) 100 Mg Capsule, 100 MG PO BID Insulin Human Lispro (Novolog) 100 U/Ml Inj, 1 DOSE SC AC PER SLIDING SCALE Lactulose (Constulose) 10 Gm/15 Ml Solution, 30 ML PO QID Levothyroxine Sodium (Levothyroxine Sodium) 25 Mcg Tablet, 25 MCG PO QHS Magnesium Oxide (Magnesium Oxide) 400 Mg Tablet, 400 MG PO TID Midodrine HCl (Midodrine HCl) 10 Mg Tablet, 15 MG PO TID Omeprazole (Omeprazole) 40 Mg Capsule.dr, 40 MG PO QHS Rifaximin (Xifaxan) 550 Mg Tablet, 550 MG PO BID Spironolactone (Spironolactone) 50 Mg Tablet, 50 MG PO QHS Sucralfate (Sucralfate) 1 Gm Tablet, 1 GM PO ACHS Torsemide (Torsemide) 20 Mg Tablet, 20 MG PO BID Scheduled PRN Tizanidine HCl (Tizanidine HCl) 4 Mg Tablet, 4 MG PO TID PRN for SPASMS Allergies Coded Allergies: No Known Drug Allergies (Verified Allergy, Unknown, 01/19/21) A-FIB/CHADSVASC A-FIB History Current/History of A-Fib/PAF?: No KEANU CONTRERAS DO Aug 10, 2021 16:20
[2021-08-10] MEDS ORDERED: cefTRIAXone SOD 2 GM in D5W MINI-BAG PLUS 50 ML IV SCH (17:00)
[2021-08-10] MEDS: HumaLOG INSULIN (NovoLOG) PER UNIT SC SCH ×2 (17:30→22:10)
[2021-08-10] MEDS ORDERED: HOME MED LIST COMPLETE! XX SCH (17:35)
--- NOTE | 2021-08-10 17:42 | REP ---
INDICATION: ascites with abdominal pain. COMPARISON: None. TECHNIQUE: The procedure was performed under the direct supervision of Dr. Cooper. The risks and benefits of the procedure were explained to the patient and informed consent was obtained. The largest pocket of fluid was localized in the right flank using ultrasound guidance. The skin was prepped and draped in a sterile fashion. 10 mL of 1% lidocaine was used as a local anesthetic. Using ultrasound guidance, an 8-[place]izen [place] multi side-hole catheter was inserted using trocar technique.2150 mL of yellow fluid was withdrawn with a sample sent to the lab for analysis. Estimated blood loss: Less than 1 mL The patient tolerated the procedure well and there were no immediate complications. After the appropriate amount of monitored convalescence, the patient was discharged from the department. FINDINGS: None IMPRESSION: Ultrasound-guided paracentesis [id number] mL of yellow fluid. <Electronically signed by Antelmo Lawrence > 08/10/21 1650 <Electronically signed by Fox Cooper > 08/10/21 [id number]
[2021-08-10 18:58] LABS: SPEC. GRAVITY BODY FLUIDS 1.008 (NOT ESTABLISHED)
[2021-08-10 19:05] LABS: APPEARANCE, BODY FLUID CLEAR (CLEAR); ASCITES FL COLOR PALE YELLOW (COLORLESS)
[2021-08-10 19:22] LABS: SOURCE, BODY FLUID ALBUMIN ASCITES; SOURCE, BODY FLUID GLUCOSE ASCITES; SOURCE, BODY FLUID TOT PROTEIN ASCITES; TOTAL PROTEIN, BODY FLUID 0.4 G/DL (NOT ESTABLISHED)
[2021-08-10 19:33] LABS: CALCIUM LEVEL 8.2 MG/DL (8.8-10.2); CREATININE FOR GFR 2.45 MG/DL (0.55-1.30); GLOMERULAR FILTRATION RATE 21.1 (>45); POTASSIUM SERUM 5.4 MEQ/L (3.5-5.1)
[2021-08-10] MEDS ORDERED: LEVOTHYROXINE 25MCG TABLET (0.025MG) PO SCH (21:00)
[2021-08-10 21:52] VITALS: BP 130/74
[2021-08-10] MEDS: rifAXIMin 550 MG TAB (XIFAXAN) PO SCH (22:27)
[2021-08-10] MEDS: SUCRALFATE 1 GM TAB PO SCH (22:27)
[2021-08-10] MEDS: VITAMIN D 1,000 INTERNATIONAL UNITS TABLET PO SCH (22:27)
[2021-08-10] MEDS: ASCORBIC ACID 250 MG TAB PO SCH (22:27)
[2021-08-10] MEDS: OMEPRAZOLE 20 MG CAP PO SCH (22:28)
[2021-08-10] MEDS: GABAPENTIN 100 MG CAP PO SCH (22:28)
[2021-08-10] MEDS: MAGNESIUM OXIDE 400MG TAB (MAG-OX) PO SCH (22:28)
[2021-08-10] MEDS: allopurinoL 100 MG TAB PO SCH (22:28)
[2021-08-11] MEDS: LEVOTHYROXINE 25MCG TABLET (0.025MG) PO SCH (05:24)
[2021-08-11 06:00] VITALS: BP 124/58
[2021-08-11 07:19] LABS: HEMOGLOBIN 7.6 g/dl (12.0-15.5); MEAN CORPUSCULAR HEMOGLOBIN 31.5 pg (27.0-33.0); MEAN CORPUSCULAR HGB CONC 31.7 g/dl (32.0-36.5); MEAN CORPUSCULAR VOLUME 99.6 fl (80.0-96.0); PLATELET COUNT, AUTOMATED 152 10^3/uL (150-450); RED BLOOD COUNT 2.41 10^6/uL (4.00-5.40); WHITE BLOOD COUNT 5.9 10^3/uL (4.0-10.0)
[2021-08-11 07:38] LABS: CALCIUM LEVEL 7.7 MG/DL (8.8-10.2); CREATININE FOR GFR 2.4 MG/DL (0.55-1.30); GLOMERULAR FILTRATION RATE 21.6 (>45); MAGNESIUM LEVEL 2.8 MG/DL (1.8-2.4)
[2021-08-11 07:43] LABS: SOURCE, BODY FLUID ASCITES
[2021-08-11] MEDS: HumaLOG INSULIN (NovoLOG) PER UNIT SC SCH ×4 (07:58→21:00)
[2021-08-11] MEDS: SUCRALFATE 1 GM TAB PO SCH ×4 (08:00→22:04)
[2021-08-11] MEDS: rifAXIMin 550 MG TAB (XIFAXAN) PO SCH ×2 (08:00→22:04)
[2021-08-11] MEDS: TORSEMIDE 20 MG TAB PO SCH (08:00)
[2021-08-11] MEDS: GABAPENTIN 100 MG CAP PO SCH ×2 (08:00→22:04)
[2021-08-11] MEDS: MIDODRINE 5 MG TAB PO SCH ×3 (08:00→17:22)
[2021-08-11] MEDS: MAGNESIUM OXIDE 400MG TAB (MAG-OX) PO SCH ×3 (08:01→21:00)
[2021-08-11] MEDS: tiZANidine 4 MG TAB PO PRN ×2 (10:25→22:42)
[2021-08-11 13:26] LABS: CALCIUM LEVEL 7.6 MG/DL (8.8-10.2); CREATININE FOR GFR 2.43 MG/DL (0.55-1.30); GLOMERULAR FILTRATION RATE 21.3 (>45); POTASSIUM SERUM 5.2 MEQ/L (3.5-5.1)
[2021-08-11 14:00] VITALS: BP 96/47
[2021-08-11] MEDS ORDERED: NS 1,000 ML IV SCH (14:30)
[2021-08-11] MEDS ORDERED: MORPHINE 2 MG/ML 1ML VIAL (J2270) IV ONE (14:30)
--- NOTE | 2021-08-11 16:16 | IPNPDOC ---
Text Note Date of Service The patient was seen on 08/11/21. NOTE Subjective: Patient is a 66-year-old female present to the emergency department yesterday after her said that she is more confused than normal. Patient is still complaining of some abdominal pain after her paracentesis. Patient is still feeling ill and having chills. Patient is having her normal loose bowel movements due to her lactulose. Patient has not been any complaints at this time. Review of systems: General: Patient denies fevers HEENT: Patient denies headaches Cardiovascular: Patient denies chest pain Respiratory: Patient denies shortness of breath, cough GI: Patient reports abdominal pain in the right lower quadrant. : Patient denies increased frequency or pain with urination Extremities: Patient denies swelling or pain in extremities Neurological: Patient denies numbness or tingling in legs Physical exam: Vitals: See below General: Alert and oriented female patient who was laying in bed when I walked in. Patient not appear to be in any acute distress. HEENT: Normocephalic, atraumatic, moist mucous membranes. Neck: No lymphadenopathy or thyromegaly Cardiac: Regular rate and rhythm, no murmurs, normal S1, normal S2 Pulm: Clear to auscultation bilaterally. No wheezes, rhonchi, rales Abd: Nondistended, tender to palpation in the right lower quadrant, no rebound tenderness, normal bowel sounds Ext: No edema bilateral lower extremities Labs: See below Imaging: No new imaging has been performed Assessment/plan: 66-year-old female presented to the hospital mild confusion and chills with abdominal pain found to have ascites and acute kidney injury on top of chronic renal disease. 1. Acute kidney injury on top of chronic kidney disease. This mildly improved with 1 L of fluid hydration. We will continue with fluid hydration her diuretics are on hold at this time. We will continue to monitor patient's response with laboratory studies. 2. Ascites. Paracentesis was performed. Patient did not have SBP based on criteria. Antibiotics have been stopped at this time. 3. Hyperkalemia. Patient is still in the upper end of normal and repeat potassium today was 5.2. Patient will receive another liter of IV fluids spiron olactone continue to be held. 4. Abdominal pain. Patient showed possible mild enteritis on CT scan. GI panel has been ordered which is pending. 5. Hyponatremia. This has resolved. 6. Mild hepatic encephalopathy. Patient does appear better today. We will continue with lactulose. 7. Type 2 diabetes mellitus. Sliding scale and consistent carb diet. 8. Esophageal varices with history of GI bleeding. Monitor H&H closely. 9. Cirrhosis secondary to Akins. Ascites drained we will continue to monitor. DVT Prophylaxis: Teds and sequentials Disposition: Pending clinical improvement VS,Fishbone, I+O VS, Fishbone, I+O Laboratory Tests 08/10/21 18:29 08/11/21 06:56 08/11/21 12:09 Vital Signs Date Time Temp Pulse Resp B/P (MAP) Pulse Ox O2 Delivery O2 Flow Rate FiO2 08/11/21 15:07 18 08/11/21 14:00 98.6 78 96/47 (63) 98 Room Air I&O- Last 24 Hours up to 6 AM 08/11/21 06:00 Intake Total 1650 ml Output Total 600 ml Balance 1050 ml KEANU CONTRERAS DO Aug 11, 2021 16:16
[2021-08-11 22:00] VITALS: BP 100/54
[2021-08-11] MEDS: allopurinoL 100 MG TAB PO SCH (22:04)
[2021-08-11] MEDS: OMEPRAZOLE 20 MG CAP PO SCH (22:04)
[2021-08-11] MEDS: VITAMIN D 1,000 INTERNATIONAL UNITS TABLET PO SCH (22:04)
[2021-08-11] MEDS: LACTULOSE 20 GM/30 ML SYRUP UD PO SCH (22:04)
[2021-08-11] MEDS: ASCORBIC ACID 250 MG TAB PO SCH (22:05)
[2021-08-12] VITALS (14 sets, daily range): BP systolic 90–130; BP diastolic 50–70
[2021-08-12 06:31] LABS: HEMATOCRIT 21.5 % (36.0-47.0); MEAN CORPUSCULAR HEMOGLOBIN 31.9 pg (27.0-33.0); MEAN CORPUSCULAR HGB CONC 31.2 g/dl (32.0-36.5); MEAN CORPUSCULAR VOLUME 102.4 fl (80.0-96.0); PLATELET COUNT, AUTOMATED 109 10^3/uL (150-450); WHITE BLOOD COUNT 4.5 10^3/uL (4.0-10.0)
[2021-08-12] MEDS: LEVOTHYROXINE 25MCG TABLET (0.025MG) PO SCH (06:32)
[2021-08-12 06:43] LABS: HEMOGLOBIN 6.7 g/dl (12.0-15.5)
[2021-08-12 06:53] LABS: CALCIUM LEVEL 7.7 MG/DL (8.8-10.2); CREATININE FOR GFR 2.31 MG/DL (0.55-1.30); GLOMERULAR FILTRATION RATE 22.6 (>45); MAGNESIUM LEVEL 2.5 MG/DL (1.8-2.4); POTASSIUM SERUM 4.8 MEQ/L (3.5-5.1)
[2021-08-12] MEDS: MAGNESIUM OXIDE 400MG TAB (MAG-OX) PO SCH (09:00)
[2021-08-12] MEDS: HumaLOG INSULIN (NovoLOG) PER UNIT SC SCH ×4 (09:16→21:00)
[2021-08-12] MEDS: TORSEMIDE 20 MG TAB PO SCH ×2 (09:20→16:57)
[2021-08-12] MEDS: MIDODRINE 5 MG TAB PO SCH ×3 (09:21→16:57)
[2021-08-12] MEDS: SUCRALFATE 1 GM TAB PO SCH ×4 (09:21→21:00)
[2021-08-12] MEDS: GABAPENTIN 100 MG CAP PO SCH ×2 (09:22→21:00)
[2021-08-12] MEDS: LACTULOSE 20 GM/30 ML SYRUP UD PO SCH ×4 (09:22→21:00)
[2021-08-12] MEDS: rifAXIMin 550 MG TAB (XIFAXAN) PO SCH ×2 (09:22→21:00)
[2021-08-12] MEDS: tiZANidine 4 MG TAB PO PRN ×2 (10:47→22:17)
--- NOTE | 2021-08-12 12:54 | IPNPDOC ---
Text Note Date of Service The patient was seen on 08/12/21. NOTE Subjective: Patient is a 66-year-old female presented the emergency department 2 days ago after her said that she is more confused. Patient says the abdominal pain has improved some today but and she is not having any chills or feeling ill. Patient's not had any bowel movement in the past 12 to 24 hours which is concerning but patient is otherwise doing well. Review of systems: General: Patient denies fevers HEENT: Patient denies headaches Cardiovascular: Patient denies chest pain Respiratory: Patient denies shortness of breath, cough GI: Patient reports improvement in the abdominal pain. : Patient denies increased frequency or pain with urination Extremities: Patient denies swelling or pain in extremities Neurological: Patient denies numbness or tingling in legs Physical exam: Vitals: See below General: Alert and oriented female patient who was laying in bed when I walked in. Patient did not appear to be in any acute distress. HEENT: Normocephalic, atraumatic, moist mucous membranes. Neck: No lymphadenopathy or thyromegaly Cardiac: Regular rate and rhythm, no murmurs, normal S1, normal S2 Pulm: Clear to auscultation bilaterally. No wheezes, rhonchi, rales Abd: Nondistended, nontender to palpation, normal bowel sounds Ext: No edema bilateral lower extremities Labs: See below Imaging: No new imaging has been performed Assessment/plan: 66-year-old female presented to hospital with mild confusion and chills with abdominal pain found to have ascites and acute kidney injury on top of chronic renal disease. 1. Acute kidney injury on top of chronic renal disease. Patient's creatinine did mildly improve again after 1 L of fluid hydration. Patient's diuretics on hold and we will continue to monitor. 2. Ascites. Paracentesis was performed patient did not meet SBP criteria. Antibiotics have been stopped we will continue to monitor. 3. Hyperkalemia. This has improved today with IV fluid hydration. We will continue to monitor. 4. Abdominal pain. Patient had a CT scan showed mild enteritis on admission. GI panel has been ordered however, the patient has not had any stool so the patient has not had a GI panel sent. Patient abdominal pain has improved we will continue to monitor 5. Hyponatremia. This is resolved. 6. Mild hepatic encephalopathy. Patient appears better today and we will continue with lactulose. We need to ensure the patient has at least 2 bowel movements today before she is sent home. 7. Type 2 diabetes mellitus. Continue sliding scale insulin with consistent carb diet. 8. Esophageal varices with history of GI bleeding. Patient's hemoglobin was below 7 today and she will be transfused 2 units. 9. Cirrhosis secondary to Akins. Ascites drained we will continue to monitor DVT Prophylaxis: Teds and sequentials Disposition: Pending clinical improvement, possible discharge in the next 24 to 48 hours VS,Fishbone, I+O VS, Fishbone, I+O Laboratory Tests 08/12/21 06:02 08/12/21 06:03 Vital Signs Date Time Temp Pulse Resp B/P (MAP) Pulse Ox O2 Delivery O2 Flow Rate FiO2 08/12/21 12:25 97.3 56 20 98/56 100 Room Air I&O- Last 24 Hours up to 6 AM 08/12/21 06:00 Intake Total 2750 ml Output Total 1225 ml Balance 1525 ml KEANU CONTRERAS DO Aug 12, 2021 12:54
[2021-08-12] MEDS: VITAMIN D 1,000 INTERNATIONAL UNITS TABLET PO SCH (21:00)
[2021-08-12] MEDS: allopurinoL 100 MG TAB PO SCH (21:00)
[2021-08-12] MEDS: OMEPRAZOLE 20 MG CAP PO SCH (21:00)
[2021-08-12] MEDS: ASCORBIC ACID 250 MG TAB PO SCH (21:01)
[2021-08-13 00:45] LABS: HEMATOCRIT 29.1 % (36.0-47.0)
[2021-08-13 00:49] LABS: HEMOGLOBIN 9.4 g/dl (12.0-15.5)
[2021-08-13] MEDS: LEVOTHYROXINE 25MCG TABLET (0.025MG) PO SCH (05:46)
[2021-08-13 06:00] VITALS: BP 102/63
[2021-08-13 06:49] LABS: HEMATOCRIT 26.9 % (36.0-47.0); HEMOGLOBIN 8.9 g/dl (12.0-15.5); MEAN CORPUSCULAR HEMOGLOBIN 31.9 pg (27.0-33.0); MEAN CORPUSCULAR HGB CONC 33.1 g/dl (32.0-36.5); MEAN CORPUSCULAR VOLUME 96.4 fl (80.0-96.0); RED BLOOD COUNT 2.79 10^6/uL (4.00-5.40); WHITE BLOOD COUNT 4.1 10^3/uL (4.0-10.0)
[2021-08-13 06:51] LABS: PLATELET COUNT, AUTOMATED 94 10^3/uL (150-450)
[2021-08-13 07:14] LABS: CREATININE FOR GFR 2.08 MG/DL (0.55-1.30); GLOMERULAR FILTRATION RATE 25.5 (>45); MAGNESIUM LEVEL 2.2 MG/DL (1.8-2.4); POTASSIUM SERUM 4.2 MEQ/L (3.5-5.1)
[2021-08-13] MEDS ORDERED: CIPROFLOXACIN 500MG TABLET PO SCH (07:20)
[2021-08-13] MEDS: SUCRALFATE 1 GM TAB PO SCH ×4 (08:15→21:45)
[2021-08-13] MEDS: GABAPENTIN 100 MG CAP PO SCH ×2 (08:15→21:45)
[2021-08-13] MEDS: rifAXIMin 550 MG TAB (XIFAXAN) PO SCH ×2 (08:16→21:45)
[2021-08-13] MEDS: MIDODRINE 5 MG TAB PO SCH ×3 (08:16→16:46)
[2021-08-13] MEDS: LACTULOSE 20 GM/30 ML SYRUP UD PO SCH ×4 (08:16→21:00)
[2021-08-13] MEDS: HumaLOG INSULIN (NovoLOG) PER UNIT SC SCH ×4 (08:18→21:00)
[2021-08-13] MEDS: MAGNESIUM OXIDE 400MG TAB (MAG-OX) PO SCH ×3 (08:22→21:44)
[2021-08-13] MEDS: TORSEMIDE 20 MG TAB PO SCH ×2 (08:29→16:46)
[2021-08-13 08:30] VITALS: BP 92/60
[2021-08-13 12:37] LABS: HEMATOCRIT 28.5 % (36.0-47.0); HEMOGLOBIN 9.2 g/dl (12.0-15.5)
[2021-08-13 13:08] VITALS: BP 104/48
[2021-08-13 14:00] VITALS: BP 102/50
[2021-08-13] MEDS ORDERED: oxyCODONE 5MG TAB PO ONE (15:10)
--- NOTE | 2021-08-13 15:16 | IPNPDOC ---
Text Note Date of Service The patient was seen on 08/13/21. NOTE Subjective: Patient is a 66-year-old female presented the emergency department 3 days ago after says that she is more confused. Patient was complaining of abdominal pain which improved somewhat today. She is not having any more chills. Patient did have some bowel movements today but they were bloody. Patient does have a history of esophageal varices. Stools described as brown with bright red blood around the outside. Patient also does have a history of internal and external hemorrhoids which the patient feels like is where the blood is most likely coming from. Patient is otherwise feeling well today. Review of systems: General: Patient denies fevers HEENT: Patient denies headaches Cardiovascular: Patient denies chest pain Respiratory: Patient denies shortness of breath, cough GI: Patient reports right lower quadrant abdominal pain and blood in her stool as described above. : Patient denies increased frequency or pain with urination Extremities: Patient denies swelling or pain in extremities Neurological: Patient denies numbness or tingling in legs Physical exam: Vitals: See below General: Alert and oriented female patient who was sitting up in bed when I walked in. Patient not appear to be in any acute distress. HEENT: Normocephalic, atraumatic, moist mucous membranes. Neck: No lymphadenopathy or thyromegaly Cardiac: Regular rate and rhythm, no murmurs, normal S1, normal S2 Pulm: Clear to auscultation bilaterally. No wheezes, rhonchi, rales Abd: Nondistended, mild tenderness palpation the right lower quadrant, no rebound tenderness, normal bowel sounds Ext: No edema bilateral lower extremities Labs: See below Imaging: No new imaging has been performed Assessment/plan: 66-year-old female here to the hospital with mild confusion and chills with abdominal pain found to have ascites and acute kidney injury on top of chronic renal disease. 1. Acute kidney injury on top of chronic renal disease. Patient's creatinine has mildly improved is around 2. Her baseline is around 1.8. We will continue to monitor. 2. Ascites. Paracentesis was performed patient did not have SBP by criteria. Antibiotics have been stopped and we will continue to monitor. 3. Abdominal pain. Patient does appear to have gastroenteritis with e nteroaggregative E. coli. Patient will be treated with ciprofloxacin renally dosed by pharmacy. 4. Hyperkalemia. Improved. Continue to monitor. Patient will be restarted on torsemide and spironolactone today. 5. Hyponatremia, resolved. 6. Mild hepatic encephalopathy. Appears better today. Patient is having bowel movements now with lactulose. 7. Type 2 diabetes mellitus continue sliding scale insulin with consistent carbohydrate diet. 8. Esophageal varices with history of GI bleeding. Patient received 2 units of blood yesterday. Patient is having bright red blood per rectum without changes in stool color. Patient's H&H has been stable today. Continue to monitor. 9. Cirrhosis with secondary to Akins. Ascites drained. Continue to monitor. DVT Prophylaxis: Teds and sequentials Disposition: Pending clinical improvement, possible discharge tomorrow as long as hemoglobin is stable VS,Segun, I+O VSSegun, I+O Laboratory Tests 08/12/21 23:59 08/13/21 06:16 08/13/21 12:16 Vital Signs Date Time Temp Pulse Resp B/P (MAP) Pulse Ox O2 Delivery O2 Flow Rate FiO2 08/13/21 13:08 104/48 (66) 08/13/21 08:30 60 08/13/21 06:00 97.1 18 98 Room Air I&O- Last 24 Hours up to 6 AM 08/13/21 06:00 Intake Total 2358 ml Output Total 2100 ml Balance 258 ml KEANU CONTRERAS DO Aug 13, 2021 15:16
[2021-08-13] MEDS ORDERED: CIPROFLOXACIN 500MG TABLET PO ONE (16:00)
[2021-08-13] MEDS: tiZANidine 4 MG TAB PO PRN (16:46)
[2021-08-13 16:48] VITALS: BP 102/48
[2021-08-13] MEDS: OMEPRAZOLE 20 MG CAP PO SCH (21:44)
[2021-08-13] MEDS: ASCORBIC ACID 250 MG TAB PO SCH (21:45)
[2021-08-13] MEDS: VITAMIN D 1,000 INTERNATIONAL UNITS TABLET PO SCH (21:45)
[2021-08-13] MEDS: allopurinoL 100 MG TAB PO SCH (21:45)
[2021-08-13] MEDS: SPIRONOLACTONE 50 MG TAB PO SCH (21:45)
[2021-08-13 22:00] VITALS: BP 121/56
[2021-08-14] MEDS ORDERED: oxyCODONE 5MG TAB PO ONE (03:05)
[2021-08-14] MEDS: LEVOTHYROXINE 25MCG TABLET (0.025MG) PO SCH (05:29)
[2021-08-14] MEDS: CIPROFLOXACIN 500MG TABLET PO SCH (05:29)
[2021-08-14 06:00] VITALS: BP 106/59
[2021-08-14 07:23] LABS: HEMATOCRIT 25.8 % (36.0-47.0); HEMOGLOBIN 8.6 g/dl (12.0-15.5); MEAN CORPUSCULAR HGB CONC 33.3 g/dl (32.0-36.5); MEAN CORPUSCULAR VOLUME 95.9 fl (80.0-96.0); PLATELET COUNT, AUTOMATED 100 10^3/uL (150-450); RED BLOOD COUNT 2.69 10^6/uL (4.00-5.40); WHITE BLOOD COUNT 6.3 10^3/uL (4.0-10.0)
[2021-08-14 07:44] LABS: CALCIUM LEVEL 7.7 MG/DL (8.8-10.2); CREATININE FOR GFR 1.96 MG/DL (0.55-1.30); GLOMERULAR FILTRATION RATE 27.3 (>45); MAGNESIUM LEVEL 2.1 MG/DL (1.8-2.4)
[2021-08-14] MEDS: LACTULOSE 20 GM/30 ML SYRUP UD PO SCH ×4 (09:13→21:36)
[2021-08-14] MEDS: HumaLOG INSULIN (NovoLOG) PER UNIT SC SCH ×4 (09:13→21:36)
[2021-08-14] MEDS: MIDODRINE 5 MG TAB PO SCH ×3 (09:15→17:59)
[2021-08-14] MEDS: MAGNESIUM OXIDE 400MG TAB (MAG-OX) PO SCH ×3 (09:15→21:35)
[2021-08-14] MEDS: GABAPENTIN 100 MG CAP PO SCH ×2 (09:16→21:35)
[2021-08-14] MEDS: SUCRALFATE 1 GM TAB PO SCH ×4 (09:16→21:35)
[2021-08-14] MEDS: tiZANidine 4 MG TAB PO PRN (09:16)
[2021-08-14] MEDS: rifAXIMin 550 MG TAB (XIFAXAN) PO SCH ×2 (09:16→21:35)
[2021-08-14] MEDS: TORSEMIDE 20 MG TAB PO SCH ×2 (09:16→17:59)
[2021-08-14 09:25] VITALS: BP 106/46
[2021-08-14] MEDS ORDERED: oxyCODONE 5MG TAB PO PRN (09:50)
--- NOTE | 2021-08-14 10:55 | REP ---
INDICATION: increased RLQ ABD pain COMPARISON: Comparison CT study is from August 10, 2021. TECHNIQUE: Helical scanning is acquired and 3 mm axial images were reformatted. Coronal and sagittal MPR images were generated and reviewed. FINDINGS: Preliminary digital code machine operator radiograph shows evidence of ascites. The bowel gas pattern is normal. There are pleuroparenchymal thickening changes at the left base adjacent to left-sided rib fractures unchanged. There is moderate diffuse abdominal ascites. This is somewhat less in volume than on the recent prior CT study of August 10, 2021. There is no evidence of free intraperitoneal air. There is left colonic diverticulosis without CT evidence of diverticulitis. The mural thickening identified on the recent prior small-bowel CT images is improved. There is no abnormal fluid collection to suggest abscess. There is an anasarca picture with diffuse subcutaneous edema and mesenteric edema in the visualized fatty tissue. Evidence of cirrhosis is again seen in the liver. The spleen is unchanged in size,rr slightly enlarged. No new mass or adenopathy. An air-filled appendix is seen retrocecal terminating at the inferior tip of the liver. No appendiceal inflammatory change. IMPRESSION: Diffuse moderate abdominal ascites. Improved bowel wall thickening. Left colonic diverticulosis. <Electronically signed by Fox Cooper > 08/14/21 [id number]
[2021-08-14 14:00] VITALS: BP 115/53
--- NOTE | 2021-08-14 15:15 | IPNPDOC ---
Text Note Date of Service The patient was seen on 08/14/21. NOTE Subjective: Patient is a 66-year-old female presented the emergency department with increased confusion. Patient is also complaining of abdominal pain which is still going on today. Patient not having any more chills. Patient did have some bowel movements today but she is dripping after she stands up from her hemorrhoids. Patient's stool is brown with bright red blood around the stool. Patient has a history of internal and external hemorrhoids which is where the patient feels like the blood is most likely coming from. Review of systems: General: Patient denies fevers HEENT: Patient denies headaches Cardiovascular: Patient denies chest pain Respiratory: Patient denies shortness of breath, cough GI: Patient reports right-sided lower abdominal pain and blood in her stools : Patient denies increased frequency or pain with urination Extremities: Patient denies swelling or pain in extremities Neurological: Patient denies numbness or tingling in legs Physical exam: Vitals: See below General: Alert and oriented female patient who was sitting up in bed when I walked in. Patient not appear to be in any acute distress. HEENT: Normocephalic, atraumatic, moist mucous membranes. Neck: No lymphadenopathy or thyromegaly Cardiac: Regular rate and rhythm, no murmurs, normal S1, normal S2 Pulm: Clear to auscultation bilaterally. No wheezes, rhonchi, rales Abd: Mildly distended, mild tenderness to palpation the right lower quadrant, no rebound tenderness, normal bowel sounds Ext: No edema bilateral lower extremities Labs: See below Imaging: CT of the abdomen pelvis performed without contrast on 08/14/2021 was reported to show diffuse moderate abdominal ascites that is somewhat less in volume than on recent prior CT study on 08/10/2021. Improved bowel wall thickening. Left colonic diverticulosis. Assessment/plan: 66-year-old female presented to hospital with mild confusion and chills with abdominal pain found to have ascites and acute kidney injury on top of chronic renal disease. 1. Acute kidney injury on top of chronic renal disease. Patient's creatinine continues to improve. We will continue to monitor. 2. Ascites. Patient does appear to have developed ascites again. CT scan states that this is less than it was previous. Patient did not have SBP by criteria. We will continue to monitor. 3. Abdominal pain. Patient has possible gastroenteritis improved on CT scan secondary to enter aggregative E. coli. Patient will receive ciprofloxacin renally dosed by pharmacy. 4. Hyperkalemia. Improved. We will continue to monitor. Restarted on torsemide and spironolactone. 5. Hyponatremia. Patient's hyponatremia may be secondary to increased fluid intake. Patient has been placed on a fluid restriction. We will monitor mel orrow. 6. Mild hepatic encephalopathy, resolved. Patient is to have a bowel movement with lactulose. 7. Bright red blood per rectum. Patient has hemorrhoids and apparently is dripping when she stands up. Patient does have a history of esophageal varices. Patient received 2 units of blood and her hemoglobin has been relatively stable over the last 2 days. 8. Type 2 diabetes mellitus. Continue sliding scale consistent carb diet. 9. Cirrhosis secondary to CAMPBELL. Ascites has been drained but appears to have come back. Continue diuretics. Patient has an appointment with a order dispatcher chief in [place], [place] on Monday that patient states that she would really like to be discharged for. Plan is to hopefully discharge the patient tomorrow so she made this appointment. DVT Prophylaxis: Teds and sequential Disposition: Pending clinical improvement possible discharge tomorrow as long as hemoglobin is stable VS,Segun, I+O VS, Segun, I+O Laboratory Tests 08/14/21 06:29 Vital Signs Date Time Temp Pulse Resp B/P (MAP) Pulse Ox O2 Delivery O2 Flow Rate FiO2 08/14/21 13:01 16 08/14/21 12:31 104/50 08/14/21 06:00 97.6 61 96 Room Air I&O- Last 24 Hours up to 6 AM 08/14/21 06:00 Intake Total 1720 ml Output Total 1575 ml Balance 145 ml KEANU CONTRERAS DO Aug 14, 2021 15:15
[2021-08-14 21:24] VITALS: BP 114/55
[2021-08-14] MEDS: OMEPRAZOLE 20 MG CAP PO SCH (21:35)
[2021-08-14] MEDS: SPIRONOLACTONE 50 MG TAB PO SCH (21:35)
[2021-08-14] MEDS: ASCORBIC ACID 250 MG TAB PO SCH (21:35)
[2021-08-14] MEDS: allopurinoL 100 MG TAB PO SCH (21:35)
[2021-08-14] MEDS: VITAMIN D 1,000 INTERNATIONAL UNITS TABLET PO SCH (21:35)
[2021-08-14] MEDS: oxyCODONE 5MG TAB PO PRN (22:12)
[2021-08-15] MEDS: CIPROFLOXACIN 500MG TABLET PO SCH (05:43)
[2021-08-15] MEDS: LEVOTHYROXINE 25MCG TABLET (0.025MG) PO SCH (05:43)
[2021-08-15] MEDS: oxyCODONE 5MG TAB PO PRN ×2 (05:44→21:43)
[2021-08-15 06:00] VITALS: BP 100/52
[2021-08-15 06:21] LABS: HEMATOCRIT 25.7 % (36.0-47.0); HEMOGLOBIN 8.4 g/dl (12.0-15.5); MEAN CORPUSCULAR HEMOGLOBIN 32.2 pg (27.0-33.0); MEAN CORPUSCULAR HGB CONC 32.7 g/dl (32.0-36.5); MEAN CORPUSCULAR VOLUME 98.5 fl (80.0-96.0); PLATELET COUNT, AUTOMATED 112 10^3/uL (150-450); RED BLOOD COUNT 2.61 10^6/uL (4.00-5.40); WHITE BLOOD COUNT 6.3 10^3/uL (4.0-10.0)
[2021-08-15 06:34] LABS: CALCIUM LEVEL 7.7 MG/DL (8.8-10.2); CREATININE FOR GFR 2.19 MG/DL (0.55-1.30); MAGNESIUM LEVEL 2.1 MG/DL (1.8-2.4); POTASSIUM SERUM 4.4 MEQ/L (3.5-5.1)
[2021-08-15] MEDS: rifAXIMin 550 MG TAB (XIFAXAN) PO SCH ×2 (08:17→21:42)
[2021-08-15] MEDS: HumaLOG INSULIN (NovoLOG) PER UNIT SC SCH ×4 (08:17→21:42)
[2021-08-15] MEDS: LACTULOSE 20 GM/30 ML SYRUP UD PO SCH ×4 (08:17→21:00)
[2021-08-15] MEDS: MIDODRINE 5 MG TAB PO SCH ×3 (08:17→16:03)
[2021-08-15] MEDS: SUCRALFATE 1 GM TAB PO SCH ×4 (08:18→21:42)
[2021-08-15] MEDS: MAGNESIUM OXIDE 400MG TAB (MAG-OX) PO SCH ×3 (08:18→21:42)
[2021-08-15] MEDS: GABAPENTIN 100 MG CAP PO SCH ×2 (08:18→21:42)
[2021-08-15] MEDS: TORSEMIDE 20 MG TAB PO SCH (09:00)
[2021-08-15] MEDS ORDERED: FUROSEMIDE 100MG/10ML VIAL (J1940) IV ONE ×2 (11:25→18:05)
--- NOTE | 2021-08-15 13:01 | IPNPDOC ---
Text Note Date of Service The patient was seen on 08/15/21. NOTE Subjective: Patient is a 66-year-old female presented to emergency room with increased confusion. Patient is also complaining of abdominal pain which is still going on today. Patient is not having any more chills. Patient has been having some bowel movements with dripping of blood after she stands up from her hemorrhoids. Patient states the stool is brown with bright red blood around the stool. Patient has a history of internal/external hemorrhoids. Patient's sodium level continues to drop and patient does feel like she is more tense in her ascites today. Patient is otherwise feeling well today. Review of systems: General: Patient denies fevers HEENT: Patient denies headaches Cardiovascular: Patient denies chest pain Respiratory: Patient denies shortness of breath, cough GI: Patient reports abdominal pain but denies nausea, vomiting, diarrhea : Patient denies increased frequency or pain with urination Extremities: Patient denies swelling or pain in extremities Neurological: Patient denies numbness or tingling in legs Physical exam: Vitals: See below General: Alert and oriented female patient who was sitting up in bed when I walked in. Patient not appear to be in acute distress HEENT: Normocephalic, atraumatic, moist mucous membranes. Neck: No lymphadenopathy or thyromegaly Cardiac: Regular rate and rhythm, no murmurs, normal S1, normal S2 Pulm: Clear to auscultation bilaterally. No wheezes, rhonchi, rales Abd: Mildly distended, mild tenderness to palpation the right lower quadrant, no rebound tenderness, normal bowel sounds Ext: 1+ edema the bilateral lower extremities Labs: See below Imaging: No new imaging has been performed Assessment/plan: 66-year-old female presented to hospital mild confusion and chills with abdominal pain found to have ascites and acute kidney injury on top of chronic renal disease. 1. Acute kidney injury on top of chronic renal disease. Patient's creatinine did worsen overnight. Patient will most likely need more diuretics. I have consulted Dr. Gleason of nephrology and I appreciate his help treating the patient. 2. Ascites. Patient appears to have developed ascites again. CT scan from yes terday states that it was less than previous. Patient did not have SBP by criteria on her paracentesis that was performed on the first day the patient's admission. We will continue to monitor. 3. Abdominal pain. This is all present. Patient had improved gastroenteritis on CT scan secondary to enteroaggregate of E. coli. Patient received 3 days of ciprofloxacin that was renally dosed by pharmacy. 4. Hyperkalemia. Improved. We will continue to monitor. 5. Hyponatremia. Patient's sodium level fell again today to 128 from 130 today before. I have consulted Dr. Gleason who has given the patient 100 mg of IV Lasix and will repeat the BMP later on tonight. 6. Mild hepatic encephalopathy, resolved. Patient is having bowel movements and her lactulose was increased to her home dose of 40 mL 4 times daily. 7. Bright red blood per rectum. Patient has a history of hemorrhoids and apparently is dripping blood when she stands up. Patient does have a history of esophageal varices but does not appear to have a upper GI bleed at this time. Patient did receive 2 units of blood a few days ago and her some of her hemoglobin is relatively stable past 2 days. We will continue to monitor. 8. Type 2 diabetes mellitus. Continue sliding scale and consistent carb diet. 9. Cirrhosis secondary to Akins. Ascites has been drained but is appear to be coming back. Continue diuretics as above. Patient was going to have an appointment tomorrow with transplant team however, we will be unable to discharge her as her sodium level is worsened and her ascites does appear worse. We will monitor the patient sodium level and see how it responds to the IV Lasix. DVT Prophylaxis: Teds and sequentials Disposition: Pending improvement in sodium. VS,Fishbone, I+O VS, Fishbone, I+O Laboratory Tests 08/15/21 05:34 Vital Signs Date Time Temp Pulse Resp B/P (MAP) Pulse Ox O2 Delivery O2 Flow Rate FiO2 08/15/21 06:14 16 Room Air 08/15/21 06:00 98.8 73 100/52 (68) 96 I&O- Last 24 Hours up to 6 AM 08/15/21 06:00 Intake Total 1515 ml Output Total 100 ml Balance 1415 ml KEANU CONRTERAS DO Aug 15, 2021 13:01
[2021-08-15 20:24] LABS: CALCIUM LEVEL 7.6 MG/DL (8.8-10.2); CREATININE FOR GFR 2.31 MG/DL (0.55-1.30); GLOMERULAR FILTRATION RATE 22.6 (>45); POTASSIUM SERUM 4.5 MEQ/L (3.5-5.1)
[2021-08-15] MEDS: OMEPRAZOLE 20 MG CAP PO SCH (21:42)
[2021-08-15] MEDS: VITAMIN D 1,000 INTERNATIONAL UNITS TABLET PO SCH (21:42)
[2021-08-15] MEDS: allopurinoL 100 MG TAB PO SCH (21:42)
[2021-08-15] MEDS: ASCORBIC ACID 250 MG TAB PO SCH (21:42)
[2021-08-15] MEDS: SPIRONOLACTONE 50 MG TAB PO SCH (21:42)
[2021-08-15 22:00] VITALS: BP 139/63
--- NOTE | 2021-08-15 22:45 | CR ---
CONSULTATION DATE: 08/15/2021 CONSULTATION REQUESTED BY: Bronson Watters D.O. REASON FOR CONSULTATION: Worsening hyponatremia in this lady with cirrhosis and ascites. HISTORY OF PRESENT ILLNESS: Ms. Ngo is a 66-year-old female, who was admitted to [facility] on August 10 due to altered mentation. She has known history of cirrhosis and ascites. Prior to this, she did have a blood transfusion a day before admission. Patient has follow-up scheduled with her box printer, however, this morning her sodium was down to 128, due to which, nephrology consultation was requested. PAST MEDICAL HISTORY: Significant for 1. Nonalcoholic cirrhosis. 2. Obesity. 3. History of hepatic encephalopathy. 4. Hypertension. 5. Type 2 diabetes. 6. History of esophageal varices and GI bleed. 7. Chronic kidney disease. 8. Congestive heart failure. 9. Coronary artery disease. PAST SURGICAL HISTORY: Significant for: 1. Bilateral cataract removal. 2. Tonsillectomy. 3. EGD with esophageal varices banding. 4. Coronary angioplasty with stent. 5. Cholecystectomy. 6. Right total knee replacement. 7. Right ankle fracture and ORIF. 8. Colonoscopy. 9. Multiple paracentesis procedures. FAMILY HISTORY: Negative for end-stage renal disease. Mother had diabetes and atrial fibrillation. PERSONAL AND SOCIAL HISTORY: Patient denies any smoking, alcohol or illicit drug use. She lives with her female partner. ALLERGIES: She has no known drug allergies. MEDICATIONS: Her home medications include: 1. Allopurinol 100 mg daily. 2. Vitamin C 250 mg daily. 3. Vitamin D 1,000 units daily. 4. Gabapentin 100 mg b.i.d. 5. Novolog Insulin per sliding scale. 6. Lactulose 15 mg q.i.d. 7. Levothyroxine 25 mcg daily. 8. Magnesium Oxide 400 mg t.i.d. 9. Midodrine 10 mg t.i.d. 10.Omeprazole 40 mg daily. 11.Xifaxan 550 mg b.i.d. 12.Spironolactone 50 mg at bedtime. 13.Carafate 1 gram q.i.d. 14.Torsemide 20 mg b.i.d. REVIEW OF SYSTEMS: Patient denies any fever or chills at present. She did have chills prior to admission. Ears, nose and throat are unremarkable. Cardiovascular system is significant for increased weight and lower extremity edema since admission. Blood pressure was somewhat low this morning and her diuretic held due to hyponatremia. Respiratory system is negative for cough or hemoptysis. GI system is significant for cirrhosis and recurrent ascites. She also has history of GI bleed in the past and has received transfusions. Denies any rectal bleeding or melena stools at present. system is negative for dysuria or hematuria. Endocrine system is significant for type 2 diabetes, hypothyroidism and no known history for any adrenal problems. Hematological system is significant for recurrent anemia requiring transfusions. She was transfused just recently. She denies any easy bruising or recent obvious blood loss. Skin is negative for rash or ulcers. PHYSICAL EXAMINATION: GENERAL: Patient is awake and alert at present. She was admitted with altered mentation, which has now improved. VITALS: Temperature 98.8 degrees Fahrenheit, heart rate 72 per minute, respiratory rate 16 per minute, blood pressure 100/52 mmHg and oxygen saturation 96% on room air. HEENT: Head is atraumatic. Pupils equal and reactive to light and sclerae is anicteric. Neck is supple and JVD is significantly elevated at least about 11 to 12 cm by sternal angle. She has no oral thrush or ulcers. HEART: Heart sounds are regular and there is no pericardial friction rub. LUNGS: Diminished breath sounds at bases and a few basilar rales. ABDOMEN: Distended with large amount of ascites and bowel sounds are present. There is no tenderness. EXTREMITIES: Without any cyanosis or clubbing. Lower extremity edema is at least 2+. NEUROLOGIC: She is awake, alert and at her baseline mentation at present. LABORATORY DATA: Sodium level 137 on August 10. Since then, gradually her sodium level has come down to 128 today. Yesterday her sodium was 130. BUN 62 today and creatinine 2.19. Glucose 289 and calcium 7.7. Hemoglobin 8.4, hematocrit 25.7, WBC 6.3 and platelets 112,000. Urinalysis was unremarkable other than 1+ bacteria. INR 1.40. PROBLEMS: 1. Hyponatremia: Seems to be related to change in her volume status. She has gained significant amount of weight since admission and has developed increased edema, ascites and elevated neck veins. I feel that she is clinically volume overloaded. Will try to diurese her with intravenous Lasix 100 mg dose given now and then recheck her this afternoon. She is already on oral Torsemide 20 mg b.i.d., which is her home dose. She will continue with Spironolactone 50 mg daily. Depending upon her response to the intravenous Lasix, I will make a decision for another dose later this afternoon if needed. Her electrolytes will be checked again. 2. Congestive heart failure/hypervolemia: She has quite complicated situation with cirrhosis and has developed generalized edema and increased ascites. She also has significant chronic kidney disease. I feel that, at this point, she needs adjustment in her diuretic. I am giving her intravenous Lasix and then will consider to increase her oral Torsemide dose also. 3. Hyperglycemia: She does have history of diabetes and blood sugars have been running in 300's. She is receiving insulin per sliding scale. 4. Anemia: Patient did have a blood transfusion recently prior to admission. Her anemia is mostly stable and slight decrease in hemoglobin and hematocrit is most likely due to volume overload. Thank you for involving me in the care of Ms. Ngo. I will follow her along with you.
[2021-08-15] MEDS ORDERED: FIORICET TAB PO ONE (23:35)
[2021-08-16] VITALS (8 sets, daily range): BP systolic 99–136; BP diastolic 45–78
[2021-08-16] MEDS: PROMETHAZINE INJ 25 MG/ML VIAL (J2550) IV PRN (00:03)
[2021-08-16] MEDS: FUROSEMIDE injection 250 MG in D5W 225 ML IV SCH ×2 (00:04→02:26)
[2021-08-16] MEDS: LEVOTHYROXINE 25MCG TABLET (0.025MG) PO SCH (05:14)
[2021-08-16 06:25] LABS: HEMATOCRIT 22.5 % (36.0-47.0); HEMOGLOBIN 7.3 g/dl (12.0-15.5); MEAN CORPUSCULAR HEMOGLOBIN 31.9 pg (27.0-33.0); MEAN CORPUSCULAR HGB CONC 32.4 g/dl (32.0-36.5); MEAN CORPUSCULAR VOLUME 98.3 fl (80.0-96.0); PLATELET COUNT, AUTOMATED 109 10^3/uL (150-450); RED BLOOD COUNT 2.29 10^6/uL (4.00-5.40)
[2021-08-16 06:46] LABS: CALCIUM LEVEL 7.9 MG/DL (8.8-10.2); CREATININE FOR GFR 2.16 MG/DL (0.55-1.30); GLOMERULAR FILTRATION RATE 24.4 (>45); MAGNESIUM LEVEL 2.2 MG/DL (1.8-2.4); POTASSIUM SERUM 4.3 MEQ/L (3.5-5.1)
[2021-08-16] MEDS: MAGNESIUM OXIDE 400MG TAB (MAG-OX) PO SCH ×3 (08:33→21:59)
[2021-08-16] MEDS: SUCRALFATE 1 GM TAB PO SCH ×4 (08:33→21:58)
[2021-08-16] MEDS: rifAXIMin 550 MG TAB (XIFAXAN) PO SCH ×2 (08:33→21:59)
[2021-08-16] MEDS: MIDODRINE 5 MG TAB PO SCH ×3 (08:33→16:39)
[2021-08-16] MEDS: GABAPENTIN 100 MG CAP PO SCH ×2 (08:33→21:59)
[2021-08-16] MEDS: LACTULOSE 20 GM/30 ML SYRUP UD PO SCH ×4 (08:34→21:59)
[2021-08-16] MEDS: HumaLOG INSULIN (NovoLOG) PER UNIT SC SCH ×4 (08:34→21:00)
--- NOTE | 2021-08-16 10:16 | IPNPDOC ---
Text Note Date of Service The patient was seen on 08/16/21. NOTE Subjective: Patient is a 66-year-old female presented to the emergency room with increased confusion. Patient was found to be hyponatremic over the past few days and nephrology was consulted who placed the patient on a Lasix drip overnight as the patient is still very edematous and her sodium is still low. Patient states she is feeling well today and her abdominal pain is mildly improved. Patient is in good spirits. No events overnight. Review of systems: General: Patient denies fevers HEENT: Patient denies headaches Cardiovascular: Patient denies chest pain Respiratory: Patient denies shortness of breath, cough GI: Patient denies abdominal pain, nausea, vomiting, diarrhea : Patient denies increased frequency or pain with urination Extremities: Patient denies swelling or pain in extremities Neurological: Patient denies numbness or tingling in legs Physical exam: Vitals: See below General: Alert oriented female who was sitting up in bed when I walked in the room. Patient did not appear to be in any acute distress. HEENT: Normocephalic, atraumatic, moist mucous membranes. Neck: No lymphadenopathy or thyromegaly Cardiac: Regular rate and rhythm, no murmurs, normal S1, normal S2 Pulm: Clear to auscultation bilaterally. No wheezes, rhonchi, rales Abd: Mildly distended however, this appears improved from yesterday minimal abdominal tenderness in the right lower quadrant, no rebound tenderness, normal bowel sounds Ext: 1+ pitting edema up bilateral lower extremities to the level of the hip. Sacral edema present. Labs: See below Imaging: No new imaging has been performed Assessment/plan: 66-year-old female presented to hospital mild confusion and chills with abdominal pain found to have ascites and acute kidney injury on top of chronic renal disease was also found to be hyponatremic which has been worsening over the past few days. 1. Oliguric renal failure. Patient has not been producing urine after 2 doses of 100 mg IV Lasix yesterday. Patient was placed on Lasix drip by Dr. Gleason. Patient has not been producing much urine. We will attempt to get the patient a unit of albumin however, the patient is still not producing urine after the albumin with Lasix drip, patient will need dialysis according Dr. Gleason. I appreciate Dr. Gleason's to help in treating the patient. 2. Ascites. Patient appears to have developed ascites again however, CT scan from 2 days ago states it is less than previous although the patient did have paracentesis which ruled out SBP on the first day of admission. Patient's ascites appears slightly improved today since starting Lasix drip. 3. Abdominal pain. This has improved. Gastroenteritis due to enteroaggregative E. coli was treated with ciprofloxacin which is renally dosed by pharmacy. 4. Hyponatremia. Patient's sodium level is still low. Patient is on Lasix drip and will continue to monitor. I appreciate Dr. Gleason's help treating the patient. 5. Anasarca. Patient appears to have pitting edema throughout her entire body. Patient will continue with Lasix drip. 6. Hyperkalemia, improved. Continue to monitor. 7. Mild hepatic encephalopathy, resolved. Continue to monitor with lactulose given 4 times daily. 8. Bright red blood per rectum. Patient has a history of hemorrhoids empirically drip but when she stands up after a bowel movement. Patient does have a history of esophageal varices does not appear to be an upper GI bleed. Will need to continue to monitor. Patient may need blood transfusion if hemoglobin continues to drop. 9. Type 2 diabetes mellitus. Continue sliding scale and consistent carb diet. 10. Cirrhosis secondary to Akins. Ascites has been drained but is appear to be coming back. Continue Lasix as above. Patient is also on spironolactone. DVT Prophylaxis: Teds and sequentials Disposition: Pending improvement in sodium. Late entry: Patient's nurse contacted me stating that the patient had fallen while walking to the bathroom. Patient had hit her head but her vital signs were stable. Patient was seen and evaluated and states that she slipped while coming into the bathroom and fell backwards hitting the back of her head on the floor. Patient denies any loss of consciousness. Patient denies any dizziness or lightheadedness prior to the fall. Patient states that she is just walking back to the bathroom. Patient is complaining of a bump on the back of her head as well as some low back pain. Patient was neurologically intact in both her upper and lower extremities. No point tenderness to palpation of the cervical spine. There is a area of swelling on the left side of the occiput. Patient does have some low back pain and some tenderness to palpation along paraspinal muscles of the low back. Patient is able to move her lower extremities without any difficulty. No urinary or fecal incontinence. CT of the head and lumbar spine were ordered. Because of this fall, I have instructed nursing to make s ure that anytime the patient goes up to go the bathroom, there is someone in their assisting her. Patient will need to continue work with physical therapy throughout her hospitalization. Patient's head CT and lumbar CT came back. Patient's head CT did not show any acute intracranial hemorrhage or other injuries. Lumbar CT showed an acute compression fracture of the L1 vertebrae. Patient was started on calcitonin nasal spray. Neurochecks also been ordered for 24 hours. VS,Fishbone, I+O VS, Fishbone, I+O Laboratory Tests 08/15/21 19:59 08/16/21 05:47 Vital Signs Date Time Temp Pulse Resp B/P (MAP) Pulse Ox O2 Delivery O2 Flow Rate FiO2 08/16/21 06:00 98.0 80 18 118/58 (78) 95 Room Air I&O- Last 24 Hours up to 6 AM 08/16/21 06:00 Intake Total 1986 ml Output Total 850 ml Balance 1136 ml KEANU CONTRERAS DO Aug 16, 2021 10:16
[2021-08-16 11:39] LABS: ALBUMIN 1.5 GM/DL (3.2-5.2); BILIRUBIN,DIRECT 0.4 MG/DL (0.0-0.2); BILIRUBIN,TOTAL 0.9 MG/DL (0.2-1.0); TOTAL PROTEIN 5.4 GM/DL (6.4-8.2)
[2021-08-16] MEDS ORDERED: CHLOROTHIAZIDE 500MG VIAL IV ONE (12:00)
[2021-08-16] MEDS: oxyCODONE 5MG TAB PO PRN (12:57)
--- NOTE | 2021-08-16 14:08 | REPVR ---
PROCEDURE INFORMATION: Exam: CT Head Without Contrast Exam date and time: 08/16/2021 1:44 PM Age: 66 years old Clinical indication: Injury or trauma; Fall; Blunt trauma (contusions or hematomas); Additional info: Fall with head injury TECHNIQUE: Imaging protocol: Computed tomography of the head without contrast. Radiation optimization: All CT scans at this facility use at least one of these dose optimization techniques: automated exposure control; mA and/or kV adjustment per patient size (includes targeted exams where dose is matched to clinical indication); or iterative reconstruction. COMPARISON: CT Head without contrast 06/26/2021 10:37 AM FINDINGS: Brain: There is no acute intracranial hemorrhage, cerebral edema, or midline shift. Chronic microvascular ischemic changes are seen in the periventricular white matter. Mild cerebral and cerebellar volume loss is present. Cerebral ventricles: No hydrocephalus. Paranasal sinuses: There is no acute sinusitis. Mastoid air cells: The mastoid air cells are clear. Orbital cavity: The included orbital structures are unremarkable. Vasculature: Atherosclerotic calcifications are seen involving the cavernous carotid arteries. Bones/joints: No acute fracture. Soft tissues: Left parietal scalp swelling is present. IMPRESSION: 1. No acute intracranial abnormality. 2. Atrophy and chronic deep white matter ischemic changes. Electronically signed by: Robby Wilkinson On 08/16/2021 14:08:19 PM
[2021-08-16] MEDS ORDERED: MORPHINE 2 MG/ML 1ML VIAL (J2270) IV ONE (14:10)
--- NOTE | 2021-08-16 14:25 | REPVR ---
PROCEDURE INFORMATION: Exam: CT Lumbar Spine Without Contrast Exam date and time: 08/16/2021 1:44 PM Age: 66 years old Clinical indication: Injury or trauma; Fall; Blunt trauma (contusions or hematomas); Additional info: Fall with back pain TECHNIQUE: Imaging protocol: Computed tomography images of the lumbar spine without contrast. Radiation optimization: All CT scans at this facility use at least one of these dose optimization techniques: automated exposure control; mA and/or kV adjustment per patient size (includes targeted exams where dose is matched to clinical indication); or iterative reconstruction. COMPARISON: CT ABD PELVIS W/O CONTRAST 08/22/2020 4:43 AM FINDINGS: Vertebrae: Anatomic alignment. Mild, acute appearing central compression of the L1 vertebral body. No osseous retropulsion. Epidural space: No evidence of a compressive epidural hematoma. Moderate lower lumbar facet arthropathy. No severe degenerative changes contributing to high-grade central spinal canal or foraminal stenoses. Soft tissues: Unremarkable. Abdominal ascites is again demonstrated. IMPRESSION: Mild, acute L1 vertebral body compression fracture. Electronically signed by: Ciara iYp On 08/16/2021 14:25:04 PM
[2021-08-16] MEDS: tiZANidine 4 MG TAB PO PRN (15:41)
[2021-08-16] MEDS: CALCITONIN NASAL SPRAY 3.7 ML BTL SCH (16:39)
--- NOTE | 2021-08-16 20:54 | IPN ---
NEPHROLOGY PROGRESS NOTE DATE: 08/16/2021 SUBJECTIVE: Miss Ngo is seen this morning at her bedside. She remains oliguric despite two doses of Lasix 100 mg each and IV Lasix drip through the night. She has massive ascites and edema. Her sodium level has remained 127-128. She denies any nausea or vomiting. OBJECTIVE: PHYSICAL EXAMINATION: VITAL SIGNS: Temperature is 98 degrees Fahrenheit, heart rate 80 per minute and respiratory rate 18 per minute, blood pressure 118/60 mm of mercury and oxygen saturation 93%. INTAKE AND OUTPUT: Intake and output records from yesterday show total intake 1,956 and output only 850 mL. Today she has minimal urine output so far. HEENT: Head is atraumatic. NECK: Supple and JVD is elevated about 10 cm above the sternal angle. HEART: Sounds are regular. LUNGS: Diminished breath sounds. ABDOMEN: Markedly distended with a large amount of ascites and bowel sounds are present. EXTREMITIES: Without any cyanosis or clubbing. Lower extremity edema has increased compared to yesterday. NEUROLOGICAL: She is at her baseline mentation. LABORATORY STUDIES: Today's labs show sodium of 128, potassium 4.3, chloride 95, CO2 25, BUN 66 and creatinine 2.16, glucose 223 and calcium 7.9. Bilirubin is 0.9, AST 43, ALT 18, alkaline phosphatase 252, total protein 5.4 and albumin 1.5. PROBLEMS: 1. Oliguric acute renal failure superimposed on chronic kidney disease most likely she has developed hepatorenal syndrome. She has not responded to Lasix so far. I am going to give her a dose of Diuril 500 mg today and also give her albumin 25% and see how she does. If she does not respond, then we will probably have to consider dialysis in the next couple of days. 2. 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 Her serum albumin is only 1.5. I will order 6 doses of IV albumin 25% every 12 hours and see if she would improve. 3. Anemia her anemia is stable and no active bleeding noticed she is most likely hemodiluted and we will watch the CBC every day. Transfusion will be considered if needed. 4. Hyponatremia - sodium level has remained stable now, though not improved. I hope that her sodium level will improve if she starts responding to diuretics. At this point we will continue to watch closely. 5. The patient has twelve multiorgan problems with deteriorating condition - at this point she is not stable for discharge and certainly not stable to be considered for a liver transplant.
[2021-08-16] MEDS: OMEPRAZOLE 20 MG CAP PO SCH (21:58)
[2021-08-16] MEDS: VITAMIN D 1,000 INTERNATIONAL UNITS TABLET PO SCH (21:58)
[2021-08-16] MEDS: ASCORBIC ACID 250 MG TAB PO SCH (21:59)
[2021-08-16] MEDS: SPIRONOLACTONE 50 MG TAB PO SCH (21:59)
[2021-08-16] MEDS: allopurinoL 100 MG TAB PO SCH (21:59)
[2021-08-17] VITALS (15 sets, daily range): BP systolic 91–115; BP diastolic 47–69; O2SAT 91
[2021-08-17] MEDS: oxyCODONE 5MG TAB PO PRN ×2 (00:52→15:23)
[2021-08-17] MEDS: LEVOTHYROXINE 25MCG TABLET (0.025MG) PO SCH (05:55)
[2021-08-17 06:24] LABS: MEAN CORPUSCULAR HEMOGLOBIN 31.6 pg (27.0-33.0); MEAN CORPUSCULAR HGB CONC 32.1 g/dl (32.0-36.5); MEAN CORPUSCULAR VOLUME 98.5 fl (80.0-96.0); RED BLOOD COUNT 1.96 10^6/uL (4.00-5.40)
[2021-08-17 06:36] LABS: HEMATOCRIT 19.3 % (36.0-47.0); PLATELET COUNT, AUTOMATED 97 10^3/uL (150-450)
[2021-08-17 06:37] LABS: HEMOGLOBIN 6.2 g/dl (12.0-15.5)
[2021-08-17 06:54] LABS: BLOOD UREA NITROGEN 69 MG/DL (7-18); CALCIUM LEVEL 8.1 MG/DL (8.8-10.2); CARBON DIOXIDE LEVEL 24 MEQ/L (21-32); CHLORIDE LEVEL 95 MEQ/L (98-107); CREATININE FOR GFR 2.18 MG/DL (0.55-1.30); GLOMERULAR FILTRATION RATE 24.2 (>45); GLUCOSE, FASTING 192 MG/DL (70-100); MAGNESIUM LEVEL 2.3 MG/DL (1.8-2.4); POTASSIUM SERUM 4.1 MEQ/L (3.5-5.1); SODIUM LEVEL 130 MEQ/L (136-145)
[2021-08-17] MEDS: HumaLOG INSULIN (NovoLOG) PER UNIT SC SCH ×4 (08:45→20:36)
[2021-08-17] MEDS: MIDODRINE 5 MG TAB PO SCH ×3 (08:46→15:22)
[2021-08-17] MEDS: CALCITONIN NASAL SPRAY 3.7 ML BTL SCH (08:46)
[2021-08-17] MEDS: MAGNESIUM OXIDE 400MG TAB (MAG-OX) PO SCH ×3 (08:46→20:36)
[2021-08-17] MEDS: LACTULOSE 20 GM/30 ML SYRUP UD PO SCH ×4 (08:46→20:35)
[2021-08-17] MEDS: GABAPENTIN 100 MG CAP PO SCH ×2 (08:46→20:35)
[2021-08-17] MEDS: rifAXIMin 550 MG TAB (XIFAXAN) PO SCH ×2 (08:46→20:36)
[2021-08-17] MEDS: SUCRALFATE 1 GM TAB PO SCH ×4 (08:47→20:35)
[2021-08-17 09:04] LABS: HEPATITIS B SURFACE ANTIBODY NEGATIVE (POSITIVE)
[2021-08-17 09:15] LABS: HEPATITIS B SURFACE ANTIGEN NEGATIVE (NEGATIVE)
[2021-08-17 09:43] LABS: HEPATITIS B CORE ANTIBODY IGM NEGATIVE (NEGATIVE); HEPATITIS C VIRUS ABY INDEX 0.1 INDEX (<0.8)
[2021-08-17 10:25] LABS: HEMOGLOBIN 6.6 g/dl (12.0-15.5)
[2021-08-17] MEDS ORDERED: LIDOCAINE 1% MDV 20ML VIAL As Ordered ONE ×2 (12:20→12:21)
--- NOTE | 2021-08-17 12:56 | IPN ---
PROGRESS NOTE DATE: 08/17/2021 SUBJECTIVE: Ms. Bennett is seen this morning on her bedside. She is very weak. She reports that she fell yesterday while trying to go to the bathroom and injure her back and head. Her head CT scan was negative. The lumbar spine CT scan was also done which did show mild L1 vertebral body compression fracture. She is complaining of pain in her back. She remains oliguric with massive edema and ascites. Unfortunately, her urine output was not recorded yesterday as she has been incontinent. Today, we placed a Teixeira catheter and 300 ml urine was in her bladder. OBJECTIVE: VITAL SIGNS: Temperature is 98.3 degrees Fahrenheit, heart rate is 72 per minute, and respiratory rate is 18 per minute. Blood pressure is 114/47 mmHg and oxygen saturation 93% on room air. GENERAL APPEARANCE: She is quite pale looking but not in any acute distress. NECK: Neck veins are about 11 to 12 cm above sternal angle. HEART: Heart sounds are regular. LUNGS: Diminished breath sounds. ABDOMEN: Markedly distended with ascites and nontender. Bowel sounds are present. EXTREMITIES: Without any cyanosis or clubbing. Lower extremity edema is at least 2+ bilaterally. NEUROLOGIC: She is awake and without any focal deficit. LABORATORY DATA: Today's labs showed a WBC count of 10.0, hemoglobin 6.2, and hematocrit 19.3, platelets are 97,000. Sodium is 130, potassium is 4.1, CO2 24, BUN 69 and creatinine 2.18. Glucose is 192 and calcium is 8.1. PROBLEMS: 1. Oliguric acute renal failure superimposed on chronic kidney disease. Patient has a history of recurrent acute renal failure and has required dialysis in the recent past. I have explained to her about worsening volume overload and potential need for dialysis. Will go ahead and make arrangements for a Perm-A-Cath placement. She does not have any uremic symptoms, however she is getting grossly volume overloaded. 2. Congestive heart failure and hepatorenal syndrome. Patient remains oliguric despite IV Lasix drip and intravenous albumin 25% twice a day. Will continue with the same for the next 24 hours and if her condition does not improve then will go ahead and dialyze her. 3. Hyponatremia, slight improvement in sodium level is noticed and will continue with IV Lasix drip and twice a day IV albumin. 4. Anemia, she has worsening anemia which is probably partly related to hemodilution as she is volume overloaded. Her hemoglobin has been low even previously. She will be transfused 2 units of packed RBCs. She has a history of esophageal varices and GI bleed in the past. She is likely to require an upper endoscopy.
[2021-08-17] MEDS ORDERED: fentaNYL 100 MCG/2 ML INJECTION (J3010) As Ordered ONE (13:46)
[2021-08-17] MEDS ORDERED: MIDAZOLAM INJ 2MG/2ML VIAL (J2250 PER 1MG) As Ordered ONE (13:46)
[2021-08-17] MEDS ORDERED: ceFAZolin 1GM VIAL (J0690 PER 500MG) As Ordered ONE (13:55)
--- NOTE | 2021-08-17 14:39 | ROOPDOC ---
[facility] Report Of Operation Report of Operation DATE OF PROCEDURE: 08/17/21 PREPROCEDURE DIAGNOSES: Acute worsening of chronic kidney disease, and fluid overload. POSTPROCEDURE DIAGNOSES: Acute worsening of chronic kidney disease, and fluid overload. PROCEDURE PERFORMED: Insertion of right internal jugular vein permacatheter. A 19 cm Palindrome permacatheter was inserted, under ultrasound-guided venous access and fluoroscopic guidance. SURGEON: Lisha Michele MD VENEER JOINTER: None ANESTHESIA: Local ESTIMATED BLOOD LOSS: Approximately two mL. COMPLICATIONS: None. REMARKS: Patent right internal jugular vein FINDINGS: Good flow through both ports of the catheter. The catheter tip was at the junction of the superior vena cava and the right atrium SPECIMENS REMOVED: None PROCEDURE NOTE: Indication for the procedure: The patient is a 66-year-old lady, with cirrhosis, ascites, and noted to have worsening chronic kidney disease, and fluid overload, requiring urgent hemodialysis. DESCRIPTION OF PROCEDURE: Informed consent was obtained from the patient, after explaining the risk benefits and complications of the procedure, which include but are not limited to bleeding, infection, cardiorespiratory complications, i ncluding pneumothorax, hemothorax, catheter related complications including sepsis, catheter migration, thrombosis, dislodgment etc. Alternatives to the procedure including nonoperative treatment and its consequences were explained. The patient understood and agreed to the procedure The patient was laid supine on the procedure table. The right side of the neck and her upper chest were cleaned and draped in a sterile fashion. Ancef 1 g was administered intravenously as preoperative antibiotic prophylaxis. A timeout was performed. After administering local anesthesia with 1% lidocaine, the right internal jugular vein was accessed, using the micropuncture needle under ultrasound guidance. The needle was exchanged to five Mosotho micro sheath over 0.018 inch guidewire. All procedures were performed under fluoroscopy guidance. The sheath was then exchanged to an Amplatz floppy tip guidewire, which was positioned in the inferior vena cava. The subcutaneous tunnel for the catheter and the exit site for the catheter were then anesthetized with 1% lidocaine. A small skin incision was made, at the catheter exit site, which was planned, about 2 fingerbreadths below the clavicle, slightly lateral to the midclavicular line. The 19 cm Palindrome catheter, that was attached to the metallic tunneler was then tunneled from the exit site to the vein access site subcutaneously. The access site was serially dilated with dilators, to accommodate the sheath. The dilator of the sheath and the wire were removed, and the catheter th at was disconnected from the tunneler was then inserted into the sheath, as the sheath was gently peeled away. The final position of the catheter tip was noted under fluoroscopy. There were no kinks or twists in the course of the catheter. Both ports were aspirated and good flow was noted. Both ports were flushed with heparinized saline and hep-locked with full-strength heparin. The catheter was anchored to the skin with 2-0 Prolene suture. The vein access site was closed with a 4-0 Monocryl subcuticular suture. Dry dressings were placed. The patient tolerated the procedure well and was transferred to the recovery room in a hemodynamically stable condition, with guarded prognosis Lisha Michele MD Aug 17, 2021 14:39
--- NOTE | 2021-08-17 14:40 | CR.PDOC ---
General Date of Consultation: Aug 17, 2021 (800 am) Referring Provider: RAYMOND IVY DO Attending Physician: Lisha Michele MD Consultation REASON FOR CONSULTATION/CHIEF COMPLAINT: Acute worsening of chronic kidney disease, with fluid overload, hyponatremia, requiring urgent hemodialysis and hemodialysis access HISTORY OF PRESENT ILLNESS: Patient is a 66-year-old female who was hospitalized with altered mental status changes, and was noted to have significant hyponatremia, thought to be secondary to worsening of her chronic kidney disease. The patient also has history of cirrhosis, with ascites, requiring frequent paracentesis, and is being worked up for a possible liver transplant at [facility]. She has a history of being on hemodialysis temporarily, through permacatheter, that was in the right internal jugular vein, in the past, after which she recovered to her baseline creatinine of 1.6-1.8. She was also noted to have significant anemia, and is being transfused blood today. She is also on Lasix drip. PAST MEDICAL HISTORY: 1. CAMPBELL cirrhosis. 2. Esophageal varices 3. Ascites requiring frequent paracentesis-last paracentesis was on 08/10/2020 - 2150 mL of fluid was drained 4. History of hepatic encephalopathy. 4. Hypertension 5. Coronary artery disease-s/p cardiac stents 6. Type 2 diabetes with neuropathy 7. Acute L1 compression fracture PAST SURGICAL HISTORY: 1. Bilateral cataract removal. 2. Tonsillectomy . 3. EGD with esophageal varices banding. 4. Cardiac stent 5. Cholecystectomy 6. Right TKA 7. Right ankle ORIF 8. Colonoscopy 9. Multiple paracentesis SOCIAL HISTORY: Patient denies smoking, drinking alcohol, or illicit drug use. She lives with her FAMILY HISTORY: Mother had a history of atrial fibrillation and diabetes mellitus ALLERGIES: Please see below. HOME MEDICATIONS: Please see below. REVIEW OF SYSTEMS: Review of systems including 12 major systems, apart from the above-mentioned history, is otherwise negative to the best of my knowledge PHYSICAL EXAMINATION: VITAL SIGNS: Please see below. GENERAL APPEARANCE: Sick looking medium built lady, who is not in acute distress. She is awake alert and appropriately responsive HEENT: Pallor+, no icterus RESPIRATORY: Bilateral equal air entry, decreased at the bases, no crepitations or rhonchi CARDIOVASCULAR: Ejection systolic murmur, in the right second intercostal space. ABDOMEN: Ascites present, soft, nontender. EXTREMITIES: Warm, well-perfused. Bilateral radial pulses +2 palpable, dorsalis pedis pulses +2 palpable. Bilateral pedal edema +2 NEUROLOGICAL: Grossly nonfocal. She is oriented to time place and person PSYCHIATRIC: Cooperative, normal mood and affect LABORATORY DATA: Current labs and imaging have been reviewed. Her potassium today is 4.1, sodium of 130. Her hemoglobin is 6.2. White count normal. Platelets of 97,000. ASSESSMENT/PLAN: Acute worsening of chronic kidney disease, in a patient with cirrhosis and ascites, requiring frequent paracentesis, dehydration, electrolyte imbalance-hyponatremia and fluid overload, requiring urgent hemodialysis. Plan: Insertion of a PermCath today. Vital Signs/I&O Vital Signs Date Time Temp Pulse Resp B/P (MAP) Pulse Ox O2 Delivery O2 Flow Rate FiO2 08/17/21 14:15 67 18 98 Nasal Cannula 2.0 08/17/21 12:47 98.1 08/17/21 12:09 111/47 I&O- Last 24 Hours up to 6 AM 08/17/21 05:59 Intake Total 730.0 ml Output Total 0 ml Balance 730.0 ml Laboratory Data Labs 24H Laboratory Tests 2 08/16/21 17:11: Bedside Glucose (Misc Panel) 238H 08/17/21 05:58: Nucleated Red Blood Cells % (auto) 0.0, Immature Platelet Fraction 4.4, Anion Gap 11, Glomerular Filtration Rate 24.2L, Calcium Level 8.1L, Magnesium Level 2.3, Hepatitis B Surface Antigen NEGATIVE, Hepatitis B Surface Antibody NEGATIVE, Hepatitis B Core IgM Antibody NEGATIVE, Hepatitis C Antibody Index 0.1 08/17/21 07:33: CBC/BMP Laboratory Tests 08/17/21 05:58 08/17/21 10:00 Microbiology Microbiology 08/12/21 Gastrointestinal Tract Panel (PCR) - Final, Complete Enteroaggregative E.coli 08/10/21 Fungal Smear, Received Pending 08/10/21 Fungal Culture, Received Pending 08/10/21 Gram Stain - Final, Complete 08/10/21 Body Fluid Culture - Final, Complete Allergies Coded Allergies: No Known Drug Allergies (Verified Allergy, Unknown, 01/19/21) Home Medications Scheduled Allopurinol (Allopurinol) 100 Mg Tablet, 100 MG PO QHS, (Reported) Ascorbic Acid (Vitamin C) 250 Mg Tablet, 250 MG PO QHS, (Reported) Cholecalciferol (Vitamin D3) (Vitamin D3) 1,000 Unit Tablet, 1,000 UNITS PO QHS, (Reported) Gabapentin (Gabapentin) 100 Mg Capsule, 100 MG PO BID, (Reported) Insulin Human Lispro (Novolog) 100 U/Ml Inj, 1 DOSE SC AC, (Reported) PER SLIDING SCALE Lactulose (Constulose) 10 Gm/15 Ml Solution, 30 ML PO QID, (Reported) Levothyroxine Sodium (Levothyroxine Sodium) 25 Mcg Tablet, 25 MCG PO DAILY, (Reported) Magnesium Oxide (Magnesium Oxide) 400 Mg Tablet, 400 MG PO TID, (Reported) Midodrine HCl (Midodrine HCl) 10 Mg Tablet, 15 MG PO TID, (Reported) Omeprazole (Omeprazole) 40 Mg Capsule.dr, 40 MG PO QHS, (Reported) Rifaximin (Xifaxan) 550 Mg Tablet, 550 MG PO BID, (Reported) Spironolactone (Spironolactone) 50 Mg Tablet, 50 MG PO QHS, (Reported) Sucralfate (Sucralfate) 1 Gm Tablet, 1 GM PO ACHS, (Reported) Torsemide (Torsemide) 20 Mg Tablet, 20 MG PO BID, (Reported) Scheduled PRN Tizanidine HCl (Tizanidine HCl) 4 Mg Tablet, 4 MG PO TID PRN for SPASMS, (Reported) Lisha Michele MD Aug 17, 2021 14:40
--- NOTE | 2021-08-17 17:01 | ECGEPIP ---
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 Minimal voltage criteria for LVH, may be normal variant ( Yeoman product ) Leftward axis. Nonspecific T wave abnormality. No significant change compared with 07/14/2021. Electronically Signed on 08-17-2021 17:01:19 EDT by Gregg Yepez
[2021-08-17] MEDS ORDERED: CIPROFLOXACIN 250MG TAB PO ONE (18:00)
--- NOTE | 2021-08-17 18:04 | IPNPDOC ---
Text Note Date of Service The patient was seen on 08/17/21. NOTE Subjective: No any acute events overnight. Patient was alert and oriented in the morning. Later today her stated that the doctors in the [facility] recommended to transfer her there if patient admitted in different facility. Objective: GENERAL APPEARANCE: NAD HEENT: no scleral icterus, plus JVD, EOMI CARDIOVASCULAR: Irregularly irregular LUNGS: Diminished lung sounds bilaterally ABDOMEN: Distended, nontender MUSCULOSKELETAL: no cyanosis, +2 leg swelling bilaterally INTEGUMENT: no generalized pallor NEUROLOGICAL: cranial nerve function from 2-12 intact, follows commands, speech not dysarthric Assessment and plan Patient 66 years old female with past medical history of end-stage liver disease, chronic kidney disease, type 2 diabetes presented to the hospital with ascites and acute kidney failure Acute oliguric kidney failure/hepatic renal syndrome/anasarca Secondary to hepatic renal syndrome Nephrology team follow serial, patient received permacath placement Diastolic CHF Nephrology team ordered intravenous albumin 25% twice daily and IV Lasix drip If there is no improvement nephrology team will proceed with dialysis Hyponatremia Continue Lasix drip Blood loss anemia/GI bleed Stool positive for blood Patient has history of hemorrhoids and esophageal varices Hemoglobin is 6. 6 in the morning, will give her a 2 units of blood H&H every 6 hours Ascites/cirrhosis/CAMPBELL Patient had paracentesis, however she developed ascites again Continue Lasix drip Patient is in a high risk of SBP, I will start ciprofloxacin in the prophylaxis dose Hyperkalemia Resolved Hepatic encephalopathy Resolved Continue lactulose Type 2 diabetes Continue insulin sliding scale Detemir 10 units twice daily Acute L1 compression fracture Continue calcitonin Appreciate/agree with orthopedic team consult PT/OT DVT: Sequentials VS,Fishbone, I+O VS, Fishbone, I+O Laboratory Tests 08/17/21 05:58 08/17/21 10:00 Vital Signs Date Time Temp Pulse Resp B/P (MAP) Pulse Ox O2 Delivery O2 Flow Rate FiO2 08/17/21 17:34 98.1 67 18 112/49 93 Room Air 08/17/21 14:15 2.0 I&O- Last 24 Hours up to 6 AM 08/17/21 06:00 Intake Total 580.0 ml Balance 580.0 ml TRINI SMALL DO Aug 17, 2021 18:04
[2021-08-17] MEDS: OMEPRAZOLE 20 MG CAP PO SCH (20:35)
[2021-08-17] MEDS: SPIRONOLACTONE 50 MG TAB PO SCH (20:35)
[2021-08-17] MEDS: allopurinoL 100 MG TAB PO SCH (20:36)
[2021-08-17] MEDS: tiZANidine 4 MG TAB PO PRN (20:36)
[2021-08-17] MEDS: ASCORBIC ACID 250 MG TAB PO SCH (20:36)
[2021-08-17] MEDS: VITAMIN D 1,000 INTERNATIONAL UNITS TABLET PO SCH (20:36)
[2021-08-17 21:37] LABS: HEMATOCRIT 26.5 % (36.0-47.0)
[2021-08-17 21:45] LABS: HEMOGLOBIN 8.7 g/dl (12.0-15.5)
[2021-08-17] MEDS: LEVEMIR (INSULIN DETEMIR) 1 UNITS/0.01ML SC SCH (23:40)
[2021-08-17] MEDS: FUROSEMIDE injection 250 MG in D5W 225 ML IV SCH (23:53)
[2021-08-18] VITALS (7 sets, daily range): BP systolic 100–111; BP diastolic 38–65; O2SAT 93
[2021-08-18 07:33] LABS: BASO % 0.5 % (0.0-1.0); EOS # 0.2 10^3/uL (0.0-0.5); EOS % 3.1 % (0.0-3.0); HEMATOCRIT 23.6 % (36.0-47.0); HEMOGLOBIN 7.8 g/dl (12.0-15.5); LYMPH # 1.2 10^3/uL (1.5-5.0); LYMPH % 15.6 % (24.0-44.0); MEAN CORPUSCULAR HEMOGLOBIN 31.1 pg (27.0-33.0); MEAN CORPUSCULAR HGB CONC 33.1 g/dl (32.0-36.5); MONO # 0.9 10^3/uL (0.0-0.8); MONO % 12.3 % (2.0-8.0); NEUTROPHILS # 5.2 10^3/uL (1.5-8.5); RED BLOOD COUNT 2.51 10^6/uL (4.00-5.40); WHITE BLOOD COUNT 7.6 10^3/uL (4.0-10.0)
[2021-08-18 07:56] LABS: PLATELET COUNT, AUTOMATED 83 10^3/uL (150-450)
[2021-08-18 08:01] LABS: ALBUMIN 1.7 GM/DL (3.2-5.2); BILIRUBIN,TOTAL 1.8 MG/DL (0.2-1.0); CALCIUM LEVEL 8.2 MG/DL (8.8-10.2); CREATININE FOR GFR 2.24 MG/DL (0.55-1.30); GLOMERULAR FILTRATION RATE 23.4 (>45); MAGNESIUM LEVEL 2.4 MG/DL (1.8-2.4); POTASSIUM SERUM 4.2 MEQ/L (3.5-5.1); TOTAL PROTEIN 5.2 GM/DL (6.4-8.2)
[2021-08-18] MEDS: MAGNESIUM OXIDE 400MG TAB (MAG-OX) PO SCH ×3 (09:00→21:35)
[2021-08-18] MEDS: rifAXIMin 550 MG TAB (XIFAXAN) PO SCH ×3 (09:00→21:35)
[2021-08-18] MEDS: GABAPENTIN 100 MG CAP PO SCH ×2 (09:00→21:35)
[2021-08-18] MEDS: LEVEMIR (INSULIN DETEMIR) 1 UNITS/0.01ML SC SCH ×2 (09:00→22:02)
[2021-08-18] MEDS: LACTULOSE 20 GM/30 ML SYRUP UD PO SCH ×5 (09:00→21:34)
[2021-08-18] MEDS: MIDODRINE 5 MG TAB PO SCH ×4 (09:00→16:00)
[2021-08-18] MEDS: CIPROFLOXACIN 250MG TAB PO SCH ×2 (09:10→10:29)
[2021-08-18] MEDS: SUCRALFATE 1 GM TAB PO SCH ×4 (09:10→21:34)
[2021-08-18] MEDS: LEVOTHYROXINE 25MCG TABLET (0.025MG) PO SCH (09:10)
[2021-08-18] MEDS: HumaLOG INSULIN (NovoLOG) PER UNIT SC SCH ×4 (09:11→20:55)
[2021-08-18] MEDS: CALCITONIN NASAL SPRAY 3.7 ML BTL SCH (10:30)
[2021-08-18 13:06] LABS: HEMATOCRIT 24.2 % (36.0-47.0)
[2021-08-18] MEDS ORDERED: LACTULOSE 20 GM/30 ML SYRUP UD PR ONE (13:35)
--- NOTE | 2021-08-18 13:50 | CR.PDOC ---
General Date of Consultation: Aug 18, 2021 Attending Physician: UGO STAPLETON MD Consultation HISTORY OF PRESENT ILLNESS: Ms. Ngo is a 66-year-old female, who was admitted to [facility] to altered mentation. She has known history of cirrhosis and ascites. Prior to this, she did have blood transfusion. Patient admitted. She sustained a fall yesterday in hospital. Complaining of back pain. CT scan shows L1 compression fracture. She is currently undergoing dialysis for kidney failure. PAST MEDICAL HISTORY: Significant for 1. Nonalcoholic cirrhosis. 2. Obesity. 3. History of hepatic encephalopathy. 4. Hypertension. 5. Type 2 diabetes. 6. History of esophageal varices and GI bleed. 7. Chronic kidney disease. 8. Congestive heart failure. 9. Coronary artery disease. PAST SURGICAL HISTORY: Significant for: 1. Bilateral cataract removal. 2. Tonsillectomy. 3. EGD with esophageal varices banding. 4. Coronary angioplasty with stent. 5. Cholecystectomy. 6. Right total knee replacement. 7. Right ankle fracture and ORIF. 8. Colonoscopy. 9. Multiple paracentesis procedures. FAMILY HISTORY: Negative for end-stage renal disease. Mother had diabetes and atrial fibrillation. PERSONAL AND SOCIAL HISTORY: Patient denies any smoking, alcohol or illicit drug use. She lives with her female partner. ALLERGIES: She has no known drug allergies. MEDICATIONS: Her home medications include: 1. Allopurinol 100 mg daily. 2. Vitamin C 250 mg daily. 3. Vitamin D 1,000 units daily. 4. Gabapentin 100 mg b.i.d. 5. Novolog Insulin per sliding scale.REASON FOR CONSULTATION/CHIEF COMPLAINT: . HISTORY OF PRESENT ILLNESS: . ALLERGIES: Please see below. HOME MEDICATIONS: Please see below. Examination: Patient undergoing dialysis. Patient oriented but seems fatigued She is communicating. Nurse states she is at her baseline. Patient lying comfortably in bed. Planes of back pain. Not able to roll. Denies any numbness or tingling lower extremities. Sensory intact to light touch. Movement of the lower extremities causes back pain Limited exam due to pain She can actively move her ankles up and down. Muscles can palpate activity. Patient is grossly neurologically intact given the limited exam Assessment and plan 1. L1 compression fracture on CT. 2. Recommend initial bedrest due to pain. Patient may elevate the bed up to 50 degrees. 3. May benefit from a TLSO brace but given her vascular ports this may be difficult to tolerate. 4. As pain improves will follow next week with x-rays of her thoracolumbar spine in the upright position. Vital Signs/I&O Vital Signs Date Time Temp Pulse Resp B/P (MAP) Pulse Ox O2 Delivery O2 Flow Rate FiO2 08/18/21 06:30 98.8 64 14 103/42 (62) 93 Room Air 08/17/21 14:15 2.0 I&O- Last 24 Hours up to 6 AM 08/18/21 06:00 Intake Total 1418.0 ml Output Total 1025 ml Balance 393.0 ml Laboratory Data Labs 24H Laboratory Tests 2 08/17/21 16:25: Bedside Glucose (Misc Panel) 216H 08/17/21 20:23: Bedside Glucose (Misc Panel) 215H 08/18/21 03:00: Bedside Glucose (Misc Panel) 207H 08/18/21 06:59: Bedside Glucose (Misc Panel) 210H 08/18/21 07:16: Immature Granulocyte % (Auto) 0.5, Neutrophils (%) (Auto) 68.0H, Lymphocytes (%) (Auto) 15.6L, Monocytes (%) (Auto) 12.3H, Eosinophils (%) (Auto) 3.1H, Basophils (%) (Auto) 0.5, Neutrophils # (Auto) 5.2, Lymphocytes # (Auto) 1.2L, Monocytes # (Auto) 0.9H, Eosinophils # (Auto) 0.2, Basophils # (Auto) 0.0, Nucleated Red Blood Cells % (auto) 0.0, Immature Platelet Fraction 4.0, Anion Gap 7L, Glomerular Filtration Rate 23.4L, Calcium Level 8.2L, Magnesium Level 2.4, Total Bilirubin 1.8#H, Aspartate Amino Transf (AST/SGOT) 32, Alanine Aminotransferase (ALT/SGPT) 15, Alkaline Phosphatase 174H, Ammonia 168H, Total Protein 5.2L, Albumin 1.7L, Albumin/Globulin Ratio 0.5L CBC/BMP Laboratory Tests 08/17/21 21:09 08/18/21 07:16 08/18/21 11:16 Microbiology Microbiology 08/12/21 Gastrointestinal Tract Panel (PCR) - Final, Complete Enteroaggregative E.coli 08/10/21 Fungal Smear, Received Pending 08/10/21 Fungal Culture, Received Pending 08/10/21 Gram Stain - Final, Complete 08/10/21 Body Fluid Culture - Final, Complete Allergies Coded Allergies: No Known Drug Allergies (Verified Allergy, Unknown, 01/19/21) Home Medications Scheduled Allopurinol (Allopurinol) 100 Mg Tablet, 100 MG PO QHS, (Reported) Ascorbic Acid (Vitamin C) 250 Mg Tablet, 250 MG PO QHS, (Reported) Cholecalciferol (Vitamin D3) (Vitamin D3) 1,000 Unit Tablet, 1,000 UNITS PO QHS, (Reported) Gabapentin (Gabapentin) 100 Mg Capsule, 100 MG PO BID, (Reported) Insulin Human Lispro (Novolog) 100 U/Ml Inj, 1 DOSE SC AC, (Reported) PER SLIDING SCALE Lactulose (Constulose) 10 Gm/15 Ml Solution, 30 ML PO QID, (Reported) Levothyroxine Sodium (Levothyroxine Sodium) 25 Mcg Tablet, 25 MCG PO DAILY, (Reported) Magnesium Oxide (Magnesium Oxide) 400 Mg Tablet, 400 MG PO TID, (Reported) Midodrine HCl (Midodrine HCl) 10 Mg Tablet, 15 MG PO TID, (Reported) Omeprazole (Omeprazole) 40 Mg Capsule.dr, 40 MG PO QHS, (Reported) Rifaximin (Xifaxan) 550 Mg Tablet, 550 MG PO BID, (Reported) Spironolactone (Spironolactone) 50 Mg Tablet, 50 MG PO QHS, (Reported) Sucralfate (Sucralfate) 1 Gm Tablet, 1 GM PO ACHS, (Reported) Torsemide (Torsemide) 20 Mg Tablet, 20 MG PO BID, (Reported) Scheduled PRN Tizanidine HCl (Tizanidine HCl) 4 Mg Tablet, 4 MG PO TID PRN for SPASMS, (Reported) UGO STAPLETON MD Aug 18, 2021 13:50
[2021-08-18 14:23] LABS: INR 1.3; PROTHROMBIN TIME 16.6 SECONDS (12.7-14.5)
--- NOTE | 2021-08-18 15:12 | IPNPDOC ---
Text Note Date of Service The patient was seen on 08/18/21. NOTE Subjective: Patient was somnolent in the morning but oriented. I called to [facility], unfortunately no beds available Objective: GENERAL APPEARANCE: Somnolent female, ill looking HEENT: no scleral icterus, plus JVD, EOMI CARDIOVASCULAR: Irregularly irregular LUNGS: Diminished lung sounds bilaterally ABDOMEN: Distended, nontender MUSCULOSKELETAL: no cyanosis, +2 leg swelling bilaterally INTEGUMENT: no generalized pallor NEUROLOGICAL: cranial nerve function from 2-12 intact, follows commands, speech not dysarthric Assessment and plan Patient 66 years old female with past medical history of end-stage liver disease, chronic kidney disease, type 2 diabetes presented to the hospital with ascites and acute kidney failure Hepatic encephalopathy Ammonia level 168 Continue oxygen continue lactulose Lactulose per enema Acute oliguric kidney failure/hepatic renal syndrome/anasarca Secondary to hepatic renal syndrome Patient received dialysis today Diastolic CHF Nephrology team started dialysis Hyponatremia Secondary to volume overload due to hepatorenal syndrome Continue to monitor Blood loss anemia/GI bleed Stool positive for blood Patient has history of hemorrhoids, history of AVM and esophageal varices Hemoglobin is 8.0 in the morning, status post 2 units of blood transfusion I talked to Dr. Chung he recommended desmopressin and octreotide drip. I started ceftriaxone IV Appreciate/agree with GI consult H&H every 6 hours Ascites/cirrhosis/CAMPBELL Patient had paracentesis, however she developed ascites again First session of dialysis was done today Patient is in a high risk of SBP, she will need to be on ciprofloxacin in the prophylaxis dose. Currently she covered with ceftriaxone IV Hyperkalemia Resolved Type 2 diabetes Continue insulin sliding scale Detemir 10 units twice daily Acute L1 compression fracture Continue calcitonin for total 3 days Orthopedic team recommended physical therapy, bed elevation. TLSO brace but given her vascular ports this may be difficult to tolerate PT/OT Hypothyroidism Continue levothyroxine DVT: Sequentials VS,Fishbone, I+O VS, Fishbone, I+O Laboratory Tests 08/17/21 21:09 08/18/21 07:16 08/18/21 11:16 Vital Signs Date Time Temp Pulse Resp B/P (MAP) Pulse Ox O2 Delivery O2 Flow Rate FiO2 08/18/21 06:30 98.8 64 14 103/42 (62) 93 Room Air 08/17/21 14:15 2.0 I&O- Last 24 Hours up to 6 AM 08/18/21 06:00 Intake Total 1418.0 ml Output Total 1025 ml Balance 393.0 ml TRINI SMALL DO Aug 18, 2021 15:12
[2021-08-18] MEDS ORDERED: NS IV ONE (16:00)
[2021-08-18] MEDS ORDERED: DESMOPRESSIN ACETATE IV ONE (16:00)
[2021-08-18] MEDS: cefTRIAXone SOD 2 GM in D5W MINI-BAG PLUS 50 ML IV SCH (16:14)
[2021-08-18] MEDS: OCTREOTIDE ACETATE 1,200 MCG in NS 238.8 ML IV SCH (16:25)
[2021-08-18] MEDS: SPIRONOLACTONE 50 MG TAB PO SCH (21:34)
[2021-08-18] MEDS: allopurinoL 100 MG TAB PO SCH (21:35)
[2021-08-18] MEDS: ASCORBIC ACID 250 MG TAB PO SCH (21:35)
[2021-08-18] MEDS: VITAMIN D 1,000 INTERNATIONAL UNITS TABLET PO SCH (21:35)
[2021-08-18] MEDS: PANTOPRAZOLE 40MG VIAL (C9113 PER 1) IV SCH (21:35)
[2021-08-18] MEDS: FUROSEMIDE injection 250 MG in D5W 225 ML IV SCH (21:35)
[2021-08-19] VITALS (10 sets, daily range): BP systolic 89–115; BP diastolic 49–57; O2SAT 94–96
[2021-08-19 00:42] LABS: HEMATOCRIT 24.1 % (36.0-47.0); HEMOGLOBIN 7.8 g/dl (12.0-15.5)
[2021-08-19] MEDS: oxyCODONE 5MG TAB PO PRN ×2 (01:15→18:55)
[2021-08-19] MEDS: tiZANidine 4 MG TAB PO PRN (02:46)
[2021-08-19] MEDS: LEVOTHYROXINE 25MCG TABLET (0.025MG) PO SCH (06:38)
[2021-08-19 07:11] LABS: BASO % 0.7 % (0.0-1.0); EOS # 0.2 10^3/uL (0.0-0.5); EOS % 2.6 % (0.0-3.0); HEMATOCRIT 22.4 % (36.0-47.0); HEMOGLOBIN 7.3 g/dl (12.0-15.5); LYMPH # 0.7 10^3/uL (1.5-5.0); LYMPH % 11.6 % (24.0-44.0); MEAN CORPUSCULAR HEMOGLOBIN 30.9 pg (27.0-33.0); MEAN CORPUSCULAR HGB CONC 32.6 g/dl (32.0-36.5); MEAN CORPUSCULAR VOLUME 94.9 fl (80.0-96.0); MONO # 0.8 10^3/uL (0.0-0.8); NEUTROPHILS # 4.2 10^3/uL (1.5-8.5); NEUTROPHILS % 71.8 % (36.0-66.0); RED BLOOD COUNT 2.36 10^6/uL (4.00-5.40); WHITE BLOOD COUNT 5.8 10^3/uL (4.0-10.0)
[2021-08-19 07:18] LABS: PLATELET COUNT, AUTOMATED 72 10^3/uL (150-450)
[2021-08-19] MEDS: HumaLOG INSULIN (NovoLOG) PER UNIT SC SCH ×4 (07:30→21:00)
[2021-08-19] MEDS: SUCRALFATE 1 GM TAB PO SCH ×4 (07:30→21:40)
[2021-08-19 07:39] LABS: ALBUMIN 1.8 GM/DL (3.2-5.2); BILIRUBIN,TOTAL 1.2 MG/DL (0.2-1.0); CALCIUM LEVEL 8.2 MG/DL (8.8-10.2); CREATININE FOR GFR 1.85 MG/DL (0.55-1.30); GLOMERULAR FILTRATION RATE 29.2 (>45); MAGNESIUM LEVEL 2.3 MG/DL (1.8-2.4); POTASSIUM SERUM 4.3 MEQ/L (3.5-5.1); TOTAL PROTEIN 5.3 GM/DL (6.4-8.2)
[2021-08-19] MEDS: CALCITONIN NASAL SPRAY 3.7 ML BTL SCH (09:00)
[2021-08-19] MEDS: LEVEMIR (INSULIN DETEMIR) 1 UNITS/0.01ML SC SCH ×2 (09:00→22:00)
[2021-08-19] MEDS: MAGNESIUM OXIDE 400MG TAB (MAG-OX) PO SCH ×4 (09:00→21:40)
[2021-08-19] MEDS: rifAXIMin 550 MG TAB (XIFAXAN) PO SCH ×3 (09:00→22:58)
[2021-08-19] MEDS: GABAPENTIN 100 MG CAP PO SCH ×3 (09:00→21:40)
[2021-08-19] MEDS: LACTULOSE 20 GM/30 ML SYRUP UD PO SCH ×5 (09:00→21:40)
[2021-08-19] MEDS: MIDODRINE 5 MG TAB PO SCH ×3 (09:00→18:56)
[2021-08-19] MEDS: PANTOPRAZOLE 40MG VIAL (C9113 PER 1) IV SCH ×2 (09:57→21:45)
--- NOTE | 2021-08-19 13:12 | IPN ---
NEPHROLOGY PROGRESS NOTE DATE: 08/19/2021 SUBJECTIVE: Ms. Ngo is seen this morning on her bedside. She is quite lethargic today and responds minimally to verbal commands. She has not been able to take her oral lactulose ammonia level was quite elevated yesterday up to 168. She also has oliguric acute renal failure and we dialyzed her yesterday. She has remained oliguric and still on I.V. Lasix drip. PHYSICAL EXAMINATION: Temperature 99 degrees Fahrenheit, heart rate 68 per minute and respiratory rate 18 per minute. Blood pressure is about 100/49 mmHg and oxygen saturation 93% on room air. Head: Atraumatic. Neck: Supple and JVD is elevated. Hemodialysis catheter in the right internal jugular vein is present. Heart: Sounds are regular. Lungs: Diminished breath sounds. She has poor inspiratory effort. Abdomen: Distended with ascites and bowel sounds are present. Extremities: Without any cyanosis or clubbing. Lower extremity edema is at least 2+. Neurologically: She is lethargic and minimally responsive to verbal stimulus. LABORATORY DATA: Today's labs show: Sodium 133, potassium 4.3, chloride 99, CO2 25, BUN 54, creatinine 1.85, glucose 231, calcium 8.2. AST 29, ALT 14, total bilirubin 1.2 and alkaline phosphatase 166. Ammonia level was 168 yesterday and has not been repeated today. Total protein is 5.3 and albumin 1.8. WBC count 5.8, hemoglobin 7.3, hematocrit 22.4. PROBLEMS/PLAN: 1. Oliguric acute renal failure: She remains on an I.V. Lasix drip and I.V. albumin. Her urine output is minimal. We dialyzed her yesterday and removed 1500 mL fluid with dialysis. 2. Hepatic encephalopathy: Patient has elevated ammonia level and she was not able to take her oral lactulose yesterday. She was given a lactulose enema once; however, today she has not received any lactulose so far. 3. Cirrhosis with recurrent ascites: Patient has a significant amount of ascites and also has peripheral edema. She can probably benefit from paracentesis. 4. GI bleed with history of esophageal varices: She did have a drop in her hematocrit and has received transfusion. She is likely to go for an upper endoscopy today.
[2021-08-19] MEDS ORDERED: FUROSEMIDE injection 250 MG in D5W 225 ML IV SCH (13:20)
[2021-08-19] MEDS ORDERED: LACTULOSE 20 GM/30 ML SYRUP UD PR ONE (14:00)
[2021-08-19] MEDS ORDERED: LIDOCAINE 1% MDV 20ML VIAL As Ordered ONE (14:56)
--- NOTE | 2021-08-19 15:09 | IPNPDOC ---
Text Note Date of Service The patient was seen on 08/19/21. NOTE Subjective: Patient was somnolent and confused in the morning not oriented. Today I called to [facility], unfortunately no beds available Objective: GENERAL APPEARANCE: Somnolent female, ill looking HEENT: no scleral icterus, plus JVD, EOMI CARDIOVASCULAR: Irregularly irregular LUNGS: Diminished lung sounds bilaterally ABDOMEN: Distended, nontender MUSCULOSKELETAL: no cyanosis, +2 leg swelling bilaterally INTEGUMENT: no generalized pallor NEUROLOGICAL: cranial nerve function from 2-12 intact, not follows commands Assessment and plan Patient 66 years old female with past medical history of end-stage liver disease, chronic kidney disease, type 2 diabetes presented to the hospital with ascites and acute kidney failure Hepatic encephalopathy Lactulose per enema Continue to monitor ammonia level I asked GI team to put NG tube during EGD to give patient oral lactulose Acute oliguric kidney failure/hepatic renal syndrome/anasarca Secondary to hepatic renal syndrome Patient is on dialysis Diastolic CHF Nephrology team started dialysis Hyponatremia Improved Secondary to volume overload due to hepatorenal syndrome Continue to monitor Blood loss anemia/GI bleed Stool positive for blood Patient has history of hemorrhoids, history of AVM and esophageal varices Hemoglobin is 7.0 in the morning, will give 2 units of blood I talked to Dr. Chung he recommended desmopressin and octreotide drip. I started ceftriaxone IV. GI team will proceed with EGD today H&H every 6 hours Ascites/cirrhosis/CAMPBELL Patient had paracentesis, however she developed ascites again Patient is in a high risk of SBP, she will need to be on ciprofloxacin in the prophylaxis dose. Currently she covered with ceftriaxone IV Continue albumin infusion Hyperkalemia Resolved Type 2 diabetes Continue insulin sliding scale Detemir 10 units twice daily Acute L1 compression fracture Continue calcitonin for total 3 days Orthopedic team recommended physical therapy, bed elevation. TLSO brace but given her vascular ports this may be difficult to tolerate PT/OT Hypothyroidism Continue levothyroxine DVT: Sequentials VS,Fishbone, I+O VS, Fishbone, I+O Laboratory Tests 08/19/21 00:30 08/19/21 06:24 08/19/21 12:37 Vital Signs Date Time Temp Pulse Resp B/P (MAP) Pulse Ox O2 Delivery O2 Flow Rate FiO2 08/19/21 14:30 97.2 56 16 91/53 Room Air 08/19/21 13:19 96 08/17/21 14:15 2.0 I&O- Last 24 Hours up to 6 AM 08/19/21 06:00 Intake Total 895.0 ml Output Total 2500 ml Balance -1605.0 ml TRINI SMALL DO Aug 19, 2021 15:09
[2021-08-19] MEDS ORDERED: dexameTHASONE 4 MG/ML 1ML VIAL (J1100 PER 1MG) As Ordered ONE (16:30)
[2021-08-19] MEDS ORDERED: LIDOCAINE 2% 100MG/5ML SDV (FOR ANES.) As Ordered ONE (16:30)
[2021-08-19] MEDS ORDERED: ONDANSETRON 4MG/2ML VIAL As Ordered ONE (16:30)
[2021-08-19] MEDS ORDERED: propofoL 200 MG/20 ML VIAL As Ordered ONE (16:30)
[2021-08-19] MEDS ORDERED: fentaNYL 100 MCG/2 ML INJECTION (J3010) As Ordered ONE (16:30)
[2021-08-19] MEDS ORDERED: METOCLOPRAMIDE INJ 10MG/2ML VIAL (J2765 PER 1) As Ordered ONE (16:33)
--- NOTE | 2021-08-19 16:56 | REP ---
PROCEDURE NAME: PICC LINE INSERTION W/SITERITE CLINICAL INFORMATION: Multiple IV infusion. COMPARISON: None. PROCEDURE DESCRIPTION: The procedure was performed by HERNAN Yi, under the direct supervision of Dr. Cooper. The risks and benefits of the procedure were explained to the patient and an informed consent was obtained both verbally and written. Directly prior to the start of the procedure a formal time-out was completed in the procedure room. The right lateral brachial vein was localized using ultrasound guidance. The skin was prepped and draped in sterile fashion. One mL of 1% lidocaine 10 mg/mL was used as a local anesthetic. Using ultrasound guidance the right lateral brachial vein was cannulated, and a 0.018 guidewire was inserted and advanced to the level of SVC using fluoroscopic guidance. The needle was removed and a 5.5 Austrian dilator and peel-away sheath was inserted over the guidewire. A 5.5 Austrian dual lumen catheter was cut to a length of 40 cm. The dilator was removed and the catheter was inserted over the guidewire with the tip ending at the level of the SVC. The peel-away sheath was removed and the catheter was flushed with heparinized saline as per hospital protocol. The catheter was affixed to the skin and a sterile dressing was applied. The patient tolerated the procedure well and there were no immediate complications. CONCLUSION: PICC line insertion into the right lateral brachial vein. 0.4 minutes of fluoroscopy time was utilized for this procedure. Some fluoroscopic images are performed with last image hold technology. These images require no additional radiation. <Electronically signed by Lakisha Dumas > 08/19/21 1647 <Electronically signed by Fox Cooper > 08/19/21 [id number]
[2021-08-19] MEDS ORDERED: ePHEDrine SULFATE 25 MG/5 ML(5MG/ML) SYRINGE As Ordered ONE (18:01)
[2021-08-19] MEDS ORDERED: ONDANSETRON 4MG/2ML VIAL IV PRN (18:10)
[2021-08-19] MEDS: OCTREOTIDE ACETATE 1,200 MCG in NS 238.8 ML IV SCH (18:56)
[2021-08-19] MEDS: cefTRIAXone SOD 2 GM in D5W MINI-BAG PLUS 50 ML IV SCH (19:00)
--- NOTE | 2021-08-19 19:34 | ROOR ---
Patient Name: Christina Ngo Procedure Date: 08/19/2021 4:59 PM Date of : 1955 Age: 66 Room: Main OR Gender: Female Note Status: Finalized Procedure: Upper GI endoscopy Indications: Acute post hemorrhagic anemia Providers: Isaac Pelayo MD Referring MD: Keira Templeton ([place]), BUSINESS ADVISOR Requesting Provider: Medicines: Monitored Anesthesia Care Complications: No immediate complications. Procedure: Pre-Anesthesia Assessment: - Prior to the procedure, a History and Physical was performed, and patient medications and allergies were reviewed. The patient is competent. The risks and benefits of the procedure and the sedation options and risks were discussed with the patient. All questions were answered and informed consent was obtained. Patient identification and proposed procedure were verified by the physician, the nurse and the anesthesiologist in the procedure room. Mental Status Examination: alert and oriented. Airway Examination: normal oropharyngeal airway and neck mobility. Respiratory Examination: clear to auscultation. CV Examination: normal. Prophylactic Antibiotics: The patient does not require prophylactic antibiotics. Prior Anticoagulants: The patient has taken no previous anticoagulant or antiplatelet agents. ASA Grade Assessment: II - A patient with mild systemic disease. After reviewing the risks and benefits, the patient was deemed in satisfactory condition to undergo the procedure. The anesthesia plan was to use monitored anesthesia care (MAC). Immediately prior to administration of medications, the patient was re-assessed for adequacy to receive sedatives. The heart rate, respiratory rate, oxygen saturations, blood pressure, adequacy of pulmonary ventilation, and response to care were monitored throughout the procedure. The physical status of the patient was re-assessed after the procedure. The Endoscope was introduced through the mouth, and advanced to the second part of duodenum. The upper GI endoscopy was accomplished without difficulty. The patient tolerated the procedure well. Findings: There is no endoscopic evidence of varices in the entire esophagus. Moderate gastric antral vascular ectasia with bleeding was present in the gastric antrum. Coagulation for hemostasis using argon plasma at 0.8 liters/minute and 20 torres was successful. Multiple medium angioectasias with bleeding were found in the duodenal bulb, in the second portion of the duodenum, in the third portion of the duodenum and in the fourth portion of the duodenum. Coagulation for hemostasis using argon plasma at 0.8 liters/minute and 20 torres was successful. For hemostasis, one hemostatic clip was successfully placed. Multiple angiodysplastic lesions with bleeding on contact were found in the second portion of the duodenum, in the third portion of the duodenum and in the fourth portion of the duodenum. Impression: - Gastric antral vascular ectasia with bleeding. Treated with argon plasma coagulation (APC). - Multiple bleeding angioectasias in the duodenum. Treated with argon plasma coagulation (APC). Clip was placed. 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 - No specimens collected. Recommendation: - Patient has a contact number available for emergencies. The signs and symptoms of potential delayed complications were discussed with the patient. Return to normal activities tomorrow. Written discharge instructions were provided to the patient. - Clear liquid diet. - Continue present medications. - Observe patient's clinical course following today's procedure with therapeutic intervention. - Check hemogram with white blood cell count and platelets q 12 hours until stable. - Refer to an interventional radiologist if symptoms persist. - Return to liver clinic as previously scheduled. - Return to primary care physician. Procedure Code(s): --- Professional --- 84880, Esophagogastroduodenoscopy, flexible, transoral; with control of bleeding, any method Diagnosis Code(s): --- Professional --- K31.811, Angiodysplasia of stomach and duodenum with bleeding D62, Acute posthemorrhagic anemia CPT copyright 2019 [employer]. All rights reserved. The codes documented in this report are preliminary and upon vp product marketing review may be revised to meet current compliance requirements. Isaac Pelayo MD Isaac Pelayo MD 08/19/2021 7:33:43 PM Electronically signed by Isaac Pelayo MD Number of Addenda: 0 Note Initiated On: 08/19/2021 4:59 PM Estimated Blood Loss: Estimated blood loss was minimal.
[2021-08-19 19:40] LABS: HEMATOCRIT 25.4 % (36.0-47.0); HEMOGLOBIN 8.2 g/dl (12.0-15.5)
[2021-08-19] MEDS: allopurinoL 100 MG TAB PO SCH (21:39)
[2021-08-19] MEDS: ASCORBIC ACID 250 MG TAB PO SCH (21:39)
[2021-08-19] MEDS: VITAMIN D 1,000 INTERNATIONAL UNITS TABLET PO SCH (21:39)
[2021-08-19] MEDS: SPIRONOLACTONE 50 MG TAB PO SCH (21:40)
[2021-08-19] MEDS: FUROSEMIDE injection 250 MG in D5W 225 ML IV SCH (23:01)
[2021-08-20] VITALS (11 sets, daily range): BP systolic 97–143; BP diastolic 55–70
[2021-08-20] MEDS: SODIUM CHLORIDE 0.9% INJ 10 ML SYR IV SCH ×2 (05:11→17:48)
[2021-08-20] MEDS: LEVOTHYROXINE 25MCG TABLET (0.025MG) PO SCH (05:13)
[2021-08-20 05:32] LABS: BASO # 0.1 10^3/uL (0.0-0.2); BASO % 0.8 % (0.0-1.0); EOS # 0.2 10^3/uL (0.0-0.5); EOS % 2.9 % (0.0-3.0); HEMATOCRIT 27.7 % (36.0-47.0); HEMOGLOBIN 9.2 g/dl (12.0-15.5); LYMPH # 0.7 10^3/uL (1.5-5.0); LYMPH % 9.6 % (24.0-44.0); MEAN CORPUSCULAR HEMOGLOBIN 32.1 pg (27.0-33.0); MEAN CORPUSCULAR HGB CONC 33.2 g/dl (32.0-36.5); MEAN CORPUSCULAR VOLUME 96.5 fl (80.0-96.0); MONO # 0.8 10^3/uL (0.0-0.8); MONO % 10.2 % (2.0-8.0); NEUTROPHILS # 5.9 10^3/uL (1.5-8.5); NEUTROPHILS % 76.1 % (36.0-66.0); RED BLOOD COUNT 2.87 10^6/uL (4.00-5.40); WHITE BLOOD COUNT 7.7 10^3/uL (4.0-10.0)
[2021-08-20 05:33] LABS: PLATELET COUNT, AUTOMATED 90 10^3/uL (150-450)
[2021-08-20 05:51] LABS: ALBUMIN 1.7 GM/DL (3.2-5.2); BILIRUBIN,TOTAL 1.6 MG/DL (0.2-1.0); CREATININE FOR GFR 1.81 MG/DL (0.55-1.30); MAGNESIUM LEVEL 1.9 MG/DL (1.8-2.4); POTASSIUM SERUM 4.3 MEQ/L (3.5-5.1); TOTAL PROTEIN 5.4 GM/DL (6.4-8.2)
[2021-08-20] MEDS: LACTULOSE 20 GM/30 ML SYRUP UD PO SCH ×4 (08:23→20:26)
[2021-08-20] MEDS: LEVEMIR (INSULIN DETEMIR) 1 UNITS/0.01ML SC SCH ×2 (08:24→20:27)
[2021-08-20] MEDS: MIDODRINE 5 MG TAB PO SCH ×3 (08:24→17:51)
[2021-08-20] MEDS: PANTOPRAZOLE 40MG VIAL (C9113 PER 1) IV SCH ×2 (08:24→20:24)
[2021-08-20] MEDS: SUCRALFATE 1 GM TAB PO SCH ×4 (08:24→20:25)
[2021-08-20] MEDS: GABAPENTIN 100 MG CAP PO SCH ×2 (08:24→20:25)
[2021-08-20] MEDS: rifAXIMin 550 MG TAB (XIFAXAN) PO SCH ×2 (08:24→20:24)
[2021-08-20] MEDS: MAGNESIUM OXIDE 400MG TAB (MAG-OX) PO SCH ×3 (08:24→20:25)
[2021-08-20] MEDS: HumaLOG INSULIN (NovoLOG) PER UNIT SC SCH ×4 (08:25→20:26)
--- NOTE | 2021-08-20 13:45 | IPNPDOC ---
Text Note Date of Service The patient was seen on 08/20/21. NOTE Subjective: Patient seems more awake today but not alert. Today I called to [facility], unfortunately no beds available Objective: GENERAL APPEARANCE: Somnolent female, ill looking HEENT: no scleral icterus, plus JVD, EOMI CARDIOVASCULAR: Irregularly irregular LUNGS: Diminished lung sounds bilaterally ABDOMEN: Distended, nontender MUSCULOSKELETAL: no cyanosis, +2 leg swelling bilaterally INTEGUMENT: no generalized pallor NEUROLOGICAL: cranial nerve function from 2-12 intact, not follows commands Assessment and plan Patient 66 years old female with past medical history of end-stage liver disease, chronic kidney disease, type 2 diabetes presented to the hospital with ascites and acute kidney failure Hepatic encephalopathy NG tube was placed yesterday, patient receives lactulose via NG tube ammonia level trended down Acute oliguric kidney failure/hepatic renal syndrome/anasarca Secondary to hepatic renal syndrome Patient is on dialysis Nephrology team follows her Diastolic CHF Nephrology team started dialysis Hyponatremia Improved Secondary to volume overload due to hepatorenal syndrome Continue to monitor Blood loss anemia/GI bleed Stool positive for blood Patient has history of hemorrhoids, history of AVM and esophageal varices Hemoglobin stable status post 2 units of blood transfusion yesterday I talked to Dr. Chung he recommended desmopressin and octreotide drip. Continue ceftriaxone IV. EGD was done and shows - Gastric antral vascular ectasia with bleeding. Treated with argon plasma coagulation (APC). - Multiple bleeding angiectasias in the duodenum. Treated with argon plasma coagulation (APC). Clip was placed. 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 Ascites/cirrhosis/CAMPBELL Patient had paracentesis, however she developed ascites again Patient is in a high risk of SBP, she will need to be on ciprofloxacin in the prophylaxis dose. Currently she covered with ceftriaxone IV We will repeat paracentesis today Hyperkalemia Resolved Type 2 diabetes Continue insulin sliding scale Detemir 10 units twice daily Acute L1 compression fracture Continue calcitonin for total 3 days Orthopedic team recommended physical therapy, bed elevation. TLSO brace but given her vascular ports this may be difficult to tolerate PT/OT Hypothyroidism Continue levothyroxine DVT: Sequentials VS,Fishbone, I+O VS, Fishbone, I+O Laboratory Tests 08/19/21 19:11 08/20/21 05:08 Vital Signs Date Time Temp Pulse Resp B/P (MAP) Pulse Ox O2 Delivery O2 Flow Rate FiO2 08/20/21 10:00 97.7 99 17 127/63 96 Room Air 08/19/21 15:00 96 08/17/21 14:15 2.0 I&O- Last 24 Hours up to 6 AM 08/20/21 06:00 Intake Total 1530 ml Output Total 1150 ml Balance 380 ml TRINI SMALL DO Aug 20, 2021 13:45
[2021-08-20] MEDS: cefTRIAXone SOD 2 GM in D5W MINI-BAG PLUS 50 ML IV SCH (14:27)
[2021-08-20] MEDS: OCTREOTIDE ACETATE 1,200 MCG in NS 238.8 ML IV SCH (14:27)
[2021-08-20] MEDS ORDERED: LIDOCAINE 1% MDV 20ML VIAL As Ordered ONE (15:55)
[2021-08-20] MEDS ORDERED: SODIUM BICARBONATE 8.4% INJ 50MEQ 50 ML VIAL As Ordered ONE (15:56)
--- NOTE | 2021-08-20 16:59 | REP ---
INDICATION: ascitis The patient has a history of ascites COMPARISON: None. TECHNIQUE: The procedure was performed by HERNAN Yi, under the direct supervision of Dr. Cooper The risks and benefits of the procedure were explained to the patient and an informed consent was obtained both verbally and written. Directly prior to the start of the procedure a formal time-out was completed in the procedure room. The largest pocket of fluid was localized in the right flank using ultrasound guidance. The skin was prepped and draped in a sterile fashion. Eleven ML of buffered lidocaine was used as a local anesthetic. An 8-Icelandic multi side-hole catheter was inserted using trocar technique. FINDINGS: 2700 mL of fluid was removed, 1300 was sent to the laboratory for further analysis, and the rest was discarded. The patient tolerated the procedure well and there were no immediate complications. After the appropriate amount of monitored convalescence, the patient was discharged from the department. IMPRESSION: Ultrasound-guided paracentesis with removal of 2700 mL of pink ascites. <Electronically signed by Lakisha Dumas > 08/20/21 1638 <Electronically signed by Fox Cooper > 08/20/21 [id number]
[2021-08-20] MEDS: FUROSEMIDE injection 250 MG in D5W 225 ML IV SCH (17:49)
[2021-08-20 19:30] LABS: PERITONEAL FL COLOR PINK (COLORLESS); SOURCE, BODY FLUID PERITONEAL
[2021-08-20 19:31] LABS: APPEARANCE, BODY FLUID CLOUDY (CLEAR)
[2021-08-20 19:42] LABS: SOURCE, BODY FLUID ALBUMIN PERITONEAL; SOURCE, BODY FLUID GLUCOSE PERITONEAL; SOURCE, BODY FLUID TOT PROTEIN PERITONEAL; TOTAL PROTEIN, BODY FLUID 0.6 G/DL (NOT ESTABLISHED)
[2021-08-20] MEDS: SPIRONOLACTONE 50 MG TAB PO SCH (20:24)
[2021-08-20] MEDS: ASCORBIC ACID 250 MG TAB PO SCH (20:25)
[2021-08-20] MEDS: VITAMIN D 1,000 INTERNATIONAL UNITS TABLET PO SCH (20:25)
[2021-08-20] MEDS: allopurinoL 100 MG TAB PO SCH (20:26)
[2021-08-20] MEDS: oxyCODONE 5MG TAB PO PRN (21:41)
[2021-08-21] VITALS: BP 148/66
[2021-08-21 03:02] LABS: HEMATOCRIT 28.3 % (36.0-47.0); HEMOGLOBIN 9.4 g/dl (12.0-15.5)
[2021-08-21 04:14] VITALS: BP 138/64
[2021-08-21] MEDS: LEVOTHYROXINE 25MCG TABLET (0.025MG) PO SCH (05:17)
[2021-08-21] MEDS: SODIUM CHLORIDE 0.9% INJ 10 ML SYR IV SCH ×2 (05:48→18:32)
[2021-08-21 06:20] LABS: BASO # 0.1 10^3/uL (0.0-0.2); BASO % 0.8 % (0.0-1.0); EOS # 0.3 10^3/uL (0.0-0.5); EOS % 2.4 % (0.0-3.0); HEMATOCRIT 28.8 % (36.0-47.0); HEMOGLOBIN 9.6 g/dl (12.0-15.5); LYMPH # 1.3 10^3/uL (1.5-5.0); LYMPH % 12.5 % (24.0-44.0); MEAN CORPUSCULAR HGB CONC 33.3 g/dl (32.0-36.5); MONO # 1.4 10^3/uL (0.0-0.8); MONO % 13.5 % (2.0-8.0); NEUTROPHILS # 7.3 10^3/uL (1.5-8.5); NEUTROPHILS % 70.4 % (36.0-66.0); PLATELET COUNT, AUTOMATED 139 10^3/uL (150-450); WHITE BLOOD COUNT 10.3 10^3/uL (4.0-10.0)
[2021-08-21 06:54] LABS: ALBUMIN 2.1 GM/DL (3.2-5.2); BILIRUBIN,TOTAL 1.7 MG/DL (0.2-1.0); CALCIUM LEVEL 8.1 MG/DL (8.8-10.2); CREATININE FOR GFR 1.83 MG/DL (0.55-1.30); GLOMERULAR FILTRATION RATE 29.6 (>45); MAGNESIUM LEVEL 2.2 MG/DL (1.8-2.4); POTASSIUM SERUM 4.1 MEQ/L (3.5-5.1); TOTAL PROTEIN 5.9 GM/DL (6.4-8.2)
[2021-08-21] MEDS: HumaLOG INSULIN (NovoLOG) PER UNIT SC SCH ×4 (07:30→20:33)
[2021-08-21 08:00] VITALS: BP 129/63
[2021-08-21] MEDS: SUCRALFATE 1 GM TAB PO SCH ×4 (08:59→20:32)
[2021-08-21] MEDS: MIDODRINE 5 MG TAB PO SCH ×3 (09:04→18:31)
[2021-08-21] MEDS: MAGNESIUM OXIDE 400MG TAB (MAG-OX) PO SCH ×3 (09:04→20:33)
[2021-08-21] MEDS: GABAPENTIN 100 MG CAP PO SCH ×2 (09:04→20:32)
[2021-08-21] MEDS: rifAXIMin 550 MG TAB (XIFAXAN) PO SCH ×2 (09:04→20:32)
[2021-08-21] MEDS: LEVEMIR (INSULIN DETEMIR) 1 UNITS/0.01ML SC SCH ×2 (09:04→20:32)
[2021-08-21] MEDS: LACTULOSE 20 GM/30 ML SYRUP UD PO SCH ×4 (09:04→20:31)
[2021-08-21] MEDS: PANTOPRAZOLE 40MG VIAL (C9113 PER 1) IV SCH ×2 (09:05→20:31)
[2021-08-21 10:00] LABS: HEMATOCRIT 28.9 % (36.0-47.0); HEMOGLOBIN 9.5 g/dl (12.0-15.5)
[2021-08-21 12:00] VITALS: BP 125/59
--- NOTE | 2021-08-21 12:44 | IPNPDOC ---
Text Note Date of Service The patient was seen on 08/21/21. NOTE Subjective: Patient is lethargic today, not follows command. Patient developed anasarca Objective: GENERAL APPEARANCE: Somnolent female, ill looking HEENT: no scleral icterus, plus JVD, EOMI CARDIOVASCULAR: Irregularly irregular LUNGS: Diminished lung sounds bilaterally ABDOMEN: Distended, nontender MUSCULOSKELETAL: no cyanosis, +2 leg swelling bilaterally INTEGUMENT: no generalized pallor NEUROLOGICAL: Moves 4 limbs, not follows commands Assessment and plan Patient 66 years old female with past medical history of end-stage liver disease, chronic kidney disease, type 2 diabetes presented to the hospital with ascites and acute kidney failure Hepatic encephalopathy NG tube was placed , patient receives lactulose via NG tube ammonia level trended up today Acute oliguric kidney failure/hepatic renal syndrome/anasarca Secondary to hepatic renal syndrome Patient received dialysis She is making good urine output on the Lasix drip. Dialysis on hold per nephrology team Nephrology team follows her Diastolic CHF Nephrology team started dialysis Continue Lasix drip Hyponatremia Secondary to volume overload due to hepatorenal syndrome Continue to monitor Blood loss anemia/GI bleed Stool positive for blood Patient has history of hemorrhoids, history of AVM and esophageal varices Hemoglobin stable status post 2 units of blood transfusion I talked to Dr. Chung he recommended desmopressin and octreotide drip. Continue ceftriaxone IV. EGD was done and shows - Gastric antral vascular ectasia with bleeding. Treated with argon plasma coagulation (APC). - Multiple bleeding angiectasias in the duodenum. Treated with argon plasma coagulation (APC). Clip was placed. 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 Continue PPI and sucralfate Ascites/cirrhosis/CAMPBELL Patient had paracentesis, however she developed ascites again. Paracentesis was repeated on 08/20/2021. 2.7 L of transudative fluid was evacuated Patient is in a high risk of SBP, she will need to be on ciprofloxacin in the prophylaxis dose. Currently she covered with ceftriaxone IV Hyperkalemia Resolved Type 2 diabetes Continue insulin sliding scale Detemir 10 units twice daily Acute L1 compression fracture Continue calcitonin for total 3 days Orthopedic team recommended physical therapy, bed elevation. TLSO brace but given her vascular ports this may be difficult to tolerate PT/OT Hypothyroidism Continue levothyroxine DVT: Sequentials VS,Fishbone, I+O VS, Fishbone, I+O Laboratory Tests 08/21/21 02:52 08/21/21 05:56 08/21/21 09:33 Vital Signs Date Time Temp Pulse Resp B/P (MAP) Pulse Ox O2 Delivery O2 Flow Rate FiO2 08/21/21 12:00 98.3 102 15 125/59 (81) 96 Room Air 08/19/21 15:00 96 08/17/21 14:15 2.0 I&O- Last 24 Hours up to 6 AM 08/21/21 06:00 Intake Total 170.0 ml Output Total 1125 ml Balance -955.0 ml TRINI SMALL DO Aug 21, 2021 12:44
[2021-08-21] MEDS: cefTRIAXone SOD 2 GM in D5W MINI-BAG PLUS 50 ML IV SCH (13:58)
[2021-08-21 14:43] LABS: HEMATOCRIT 28.5 % (36.0-47.0); HEMOGLOBIN 9.4 g/dl (12.0-15.5)
[2021-08-21 16:00] VITALS: BP 138/63
[2021-08-21] MEDS: FUROSEMIDE injection 250 MG in D5W 225 ML IV SCH (18:37)
[2021-08-21 20:00] VITALS: BP 157/70
[2021-08-21] MEDS: SPIRONOLACTONE 50 MG TAB PO SCH (20:32)
[2021-08-21] MEDS: ASCORBIC ACID 250 MG TAB PO SCH (20:33)
[2021-08-21] MEDS: allopurinoL 100 MG TAB PO SCH (20:33)
[2021-08-21] MEDS: VITAMIN D 1,000 INTERNATIONAL UNITS TABLET PO SCH (20:48)
--- NOTE | 2021-08-21 22:40 | IPNPDOC ---
Subjective CC/HPI The patient is a 66-year-old female admitted with a reason for visit of Acute On Chronic Kidney Injury, Hyperammonemia. Events since last encounter Pt was seen at bedside in AM. She continues on Lasix drip and is responding to diuretic. Last HD was done on 11/18/20. She is awake but non verbal and appears encephalopathic. General: Reports: ROS Unobtainable (Encephalopathic) Objective Physical Examination General Exam: Other (Awake and encephalopathic); No: Alert EYE EXAM: Other Eye Symptoms (Pupils are reactive) ENT EXAM: Atraumatic, Mucous membr. moist/pink, Other ENT (Temporal wasting noted.NGT in situ) Neck Exam: Supple; No: JVD Chest Exam: Clear to auscultation, Normal air movement; No: Rales Heart Exam: Rate Normal, Normal S1, Normal S2; No: Murmurs, Rubs ABDOMEN EXAM: Normal bowel sounds, Soft; No: Tenderness Female Exam: No: Nl Ext Genitalia (Teixeira catheter noted) Extremity Exam: Edema (2+ edema of legs noted); No: Clubbing, Cyanosis Skin Exam: Nl turgor and temperature; No: Rash Neuro Exam: No: Normal Speech, Sensation Intact (Encephalopathy) Psych Exam: No: Mental status NL, Oriented x 3 Vital Signs/I&O Vital Signs Date Time Temp Pulse Resp B/P (MAP) Pulse Ox O2 Delivery O2 Flow Rate FiO2 08/21/21 20:00 97.2 101 21 157/70 (99) 97 Room Air 08/19/21 15:00 96 08/17/21 14:15 2.0 I&O- Last 24 Hours up to 6 AM 08/21/21 06:00 Intake Total 170.0 ml Output Total 1125 ml Balance -955.0 ml Laboratory Data Labs 24H Laboratory Tests 2 08/21/21 05:56: Immature Granulocyte % (Auto) 0.4, Neutrophils (%) (Auto) 70.4H, Lymphocytes (%) (Auto) 12.5L, Monocytes (%) (Auto) 13.5H, Eosinophils (%) (Auto) 2.4, Basophils (%) (Auto) 0.8, Neutrophils # (Auto) 7.3, Lymphocytes # (Auto) 1.3L, Monocytes # (Auto) 1.4H, Eosinophils # (Auto) 0.3, Basophils # (Auto) 0.1, Nucleated Red Blood Cells % (auto) 0.0, Anion Gap 7L, Glomerular Filtration Rate 29.6L, Calcium Level 8.1L, Magnesium Level 2.2, Total Bilirubin 1.7H, Aspartate Amino Transf (AST/SGOT) 35, Alanine Aminotransferase (ALT/SGPT) 14, Alkaline Phosphatase 177H, Total Protein 5.9L, Albumin 2.1#L, Albumin/Globulin Ratio 0.6L 08/21/21 09:33: Ammonia 196H 08/21/21 17:47: Bedside Glucose (Misc Panel) 150H 08/21/21 20:30: Bedside Glucose (Misc Panel) 156H CBC/BMP Laboratory Tests 08/21/21 02:52 08/21/21 05:56 08/21/21 09:33 08/21/21 14:29 FSBS Laboratory Tests Test 08/21/21 17:47 08/21/21 20:30 Range/Units Bedside Glucose (Misc Panel) 150 156 80-115 MG/DL Current Medications Current Medications Medications (Trade) Dose Ordered Sig/Alicia Route PRN Reason Start Time Stop Time Status Last Admin Dose Admin Allopurinol (Zyloprim) 100 mg QHS PO 08/10/21 21:00 08/21/21 20:33 Ascorbic Acid (Vitamin C) 250 mg QHS PO 08/10/21 21:00 08/21/21 20:33 Calcitonin [place] (Miacalcin (Fortical)) 1 sprays DAILY NA 08/16/21 17:00 08/19/21 09:00 DC 08/18/21 10:30 Ceftriaxone Sodium 2 gm/ Dextrose 50 ml @ 100 mls/hr Q24H IV 08/10/21 17:00 08/11/21 06:51 DC 08/10/21 17:00 Ceftriaxone Sodium 2 gm/ Dextrose 50 ml @ 100 mls/hr Q24H IV 08/18/21 14:00 08/21/21 13:58 Ciprofloxacin (Cipro) 250 mg DAILY@06 PO 08/18/21 06:00 08/18/21 13:38 DC Ciprofloxacin (Cipro) 500 mg BID@06,18 PO 08/13/21 07:20 08/13/21 07:49 DC Ciprofloxacin (Cipro) 500 mg DAILY@0600 PO 08/14/21 06:00 08/15/21 07:18 DC 08/15/21 05:43 Dextrose (Dextrose 50%) 25 ml ASDIRECTED PRN IV SEE LABEL COMMENTS 08/10/21 16:20 Furosemide 250 mg/ Dextrose 250 ml @ 10 mls/hr Q24H IV 08/15/21 22:30 08/19/21 13:20 DC 08/18/21 21:35 Furosemide 250 mg/ Dextrose 250 ml @ 10 mls/hr Q24H IV 08/19/21 13:20 08/19/21 13:22 DC Furosemide 250 mg/ Dextrose 250 ml @ 10 mls/hr Q24H IV 08/19/21 21:00 08/21/21 18:37 Gabapentin (Neurontin) 100 mg BID PO 08/10/21 21:00 08/21/21 20:32 Glucagon (Glucagon) 1 mg ASDIRECTED PRN SC SEE LABEL COMMENTS 08/10/21 16:20 Glucose (Glucose) 16 GM ASDIRECTED PRN PO SEE LABEL COMMENTS 08/10/21 16:20 Heparin Sodium (Heparin (Flush)) 200 units ASDIRECTED PRN IV SEE LABEL COMMENTS 08/19/21 18:50 Heparin Sodium (Heparin (Flush)) 200 units PICC IV 08/20/21 06:00 08/21/21 18:31 Home Med (Home Med List Complete!) ASDIRECTED XX 08/10/21 17:35 08/10/21 17:37 DC Insulin Detemir (Levemir Insulin) 10 units BID SC 08/17/21 21:00 08/18/21 15:22 DC Insulin Detemir (Levemir Insulin) 14 units BID SC 08/18/21 21:00 08/21/21 20:32 Insulin Human Lispro (HumaLOG INSULIN) SEE PROTOCOL TABLE AC SC 08/10/21 17:30 08/21/21 18:31 Insulin Human Lispro (HumaLOG INSULIN) SEE PROTOCOL TABLE QHS SC 08/10/21 21:00 08/15/21 21:42 Lactulose (Cephulac) 30 ml QID PO 08/11/21 21:00 08/14/21 18:27 DC 08/14/21 17:59 Lactulose (Cephulac) 40 ml QID PO 08/14/21 21:00 08/21/21 20:31 Levothyroxine Sodium (Synthroid) 25 mcg DAILY@0600 PO 08/11/21 06:00 08/21/21 05:17 Levothyroxine Sodium (Synthroid) 25 mcg QHS PO 08/10/21 21:00 08/10/21 22:25 DC Magnesium Oxide (Mag-Ox) 400 mg TID PO 08/10/21 21:00 08/21/21 20:33 Midodrine (Proamatine) 15 mg TID@0900,1200,1600 PO 08/11/21 09:00 08/21/21 18:31 Octreotide Acetate 1200 mcg/ Sodium Chloride 240 ml @ 10 mls/hr Q24H IV 08/18/21 16:00 08/21/21 09:00 DC 08/20/21 14:27 Omeprazole (PriLOSEC) 40 mg QHS PO 08/10/21 21:00 08/18/21 15:26 DC 08/17/21 20:35 Ondansetron HCl (ZOFRAN INJection) 4 mg Q4HP PRN IV NAUSEA OR VOMITING 08/19/21 18:10 08/19/21 20:10 DC Oxycodone HCl (Roxicodone, Oxyir) 5 mg Q4HP PRN PO PAIN LEVEL 5-10 08/14/21 09:50 08/14/21 12:51 DC 08/14/21 12:31 Oxycodone HCl (Roxicodone, Oxyir) 5 mg Q6HP PRN PO PAIN LEVEL 5-10 08/14/21 18:00 08/20/21 21:41 Pantoprazole Sodium (Protonix) 40 mg Q12H IV 08/18/21 21:00 08/21/21 20:31 Promethazine HCl (PHENERGAN INJection) 12.5 mg Q6HP PRN IV NAUSEA 08/15/21 23:55 08/16/21 00:03 Rifaximin (Xifaxan) 550 mg BID PO 08/10/21 21:00 08/21/21 20:32 Sodium Chloride 1,000 ml @ 120 mls/hr Q8H20M IV 08/11/21 14:30 08/11/21 22:49 DC 08/11/21 14:57 Sodium Chloride (Saline Lock Flush) 10 ml ASDIRECTED PRN IV SEE LABEL COMMENTS 10/7/21 18:50 Sodium Chloride (Saline Lock Flush) 10 ml PICC IV 08/20/21 06:00 08/21/21 18:32 Spironolactone (Aldactone) 50 mg QHS PO 08/13/21 21:00 08/21/21 20:32 Sucralfate (Carafate) 1 gm ACHS PO 08/10/21 21:00 08/21/21 20:32 Tizanidine HCl (Zanaflex) 4 mg TID PRN PO SPASMS 08/10/21 18:55 08/19/21 02:46 Torsemide (Demadex) 20 mg BID@0900,1700 PO 08/11/21 09:00 08/16/21 07:10 DC 08/14/21 17:59 Vitamin D (Vitamin D) 1,000 units QHS PO 08/10/21 21:00 08/21/21 20:48 Allergies Coded Allergies: No Known Drug Allergies (Verified Allergy, Unknown, 01/19/21) Assessment/Plan Date Seen The patient was seen on 08/21/21 in the morning. Plan / VTE VTE Prophylaxis Ordered?: No Plan Orders past 48 Hours Orders Administer Albumin 25% (08/20/21 06:36) Fingerstick Blood Sugar (08/20/21 12:17) Cell Count Peritoneal Fluid (08/20/21 13:43) Total Protein, Body Fluid (08/20/21 13:43) Glucose, Body Fluid (08/20/21 13:43) Spec Grav Bdy Fluid (08/20/21 13:43) Body Fluid Culture And Gs (08/20/21 13:43) Anaerobic Culture (08/20/21 13:43) Fungus Smear & Culture (08/20/21 13:43) * Nursing Order * (08/20/21 16:47) Fingerstick Blood Sugar (08/20/21 17:46) Albumin, Body Fluid (08/20/21 13:43) Fingerstick Blood Sugar (08/20/21 20:22) Electrocardiogram Adult (08/21/21 09:01) Ammonia (08/21/21 09:01) Fingerstick Blood Sugar (08/21/21 17:47) Fingerstick Blood Sugar (08/21/21 20:30) Plan Text 1. Oliguric acute renal failure: She remains on an I.V. Lasix drip and I.V. albumin. Her urine output is improving. No need of HD today. Cr is stable.Continue Midodrine. 2. Hepatic encephalopathy: Patient has elevated ammonia level and now she has NGT. Lactulose administration as per med team. 3. Cirrhosis with recurrent ascites:2.7L of fluid of removed yesterday. Further volume optimization with Lasix. 4. Upper GI Bleed: S/p EGD with laser+ clipping of multiple bleeding sites. Rest of management as per GI. 5. HFpEF, Anasarca: Responding to Lasix drip, continue current dose. WILFRID GUPTA MD Aug 21, 2021 22:40
[2021-08-22] VITALS: BP 151/67
[2021-08-22 04:00] VITALS: BP 149/64
[2021-08-22] MEDS: LEVOTHYROXINE 25MCG TABLET (0.025MG) PO SCH (05:11)
[2021-08-22] MEDS: SODIUM CHLORIDE 0.9% INJ 10 ML SYR IV SCH ×2 (05:11→18:02)
[2021-08-22 05:21] LABS: BASO % 0.8 % (0.0-1.0); EOS # 0.3 10^3/uL (0.0-0.5); EOS % 2.8 % (0.0-3.0); HEMATOCRIT 25.8 % (36.0-47.0); HEMOGLOBIN 8.5 g/dl (12.0-15.5); LYMPH # 1.6 10^3/uL (1.5-5.0); LYMPH % 15.8 % (24.0-44.0); MEAN CORPUSCULAR HEMOGLOBIN 32.1 pg (27.0-33.0); MEAN CORPUSCULAR HGB CONC 32.9 g/dl (32.0-36.5); MEAN CORPUSCULAR VOLUME 97.4 fl (80.0-96.0); MONO # 1.4 10^3/uL (0.0-0.8); MONO % 13.7 % (2.0-8.0); NEUTROPHILS # 6.8 10^3/uL (1.5-8.5); NEUTROPHILS % 66.6 % (36.0-66.0); PLATELET COUNT, AUTOMATED 130 10^3/uL (150-450); RED BLOOD COUNT 2.65 10^6/uL (4.00-5.40); WHITE BLOOD COUNT 10.2 10^3/uL (4.0-10.0)
[2021-08-22 05:22] LABS: BASO # 0.1 10^3/uL (0.0-0.2)
[2021-08-22 05:42] LABS: ALBUMIN 1.9 GM/DL (3.2-5.2); BILIRUBIN,TOTAL 1.4 MG/DL (0.2-1.0); CALCIUM LEVEL 8.4 MG/DL (8.8-10.2); CREATININE FOR GFR 1.92 MG/DL (0.55-1.30); MAGNESIUM LEVEL 2.1 MG/DL (1.8-2.4); POTASSIUM SERUM 3.7 MEQ/L (3.5-5.1); TOTAL PROTEIN 5.4 GM/DL (6.4-8.2)
[2021-08-22 08:00] VITALS: BP 134/61
[2021-08-22] MEDS: MIDODRINE 5 MG TAB PO SCH ×3 (10:21→16:00)
[2021-08-22] MEDS: rifAXIMin 550 MG TAB (XIFAXAN) PO SCH ×2 (10:21→20:29)
[2021-08-22] MEDS: SUCRALFATE 1 GM TAB PO SCH ×4 (10:21→20:30)
[2021-08-22] MEDS: MAGNESIUM OXIDE 400MG TAB (MAG-OX) PO SCH ×3 (10:21→20:30)
[2021-08-22] MEDS: GABAPENTIN 100 MG CAP PO SCH (10:21)
[2021-08-22] MEDS: LACTULOSE 20 GM/30 ML SYRUP UD PO SCH ×4 (10:21→20:31)
[2021-08-22] MEDS: HumaLOG INSULIN (NovoLOG) PER UNIT SC SCH ×4 (10:22→20:30)
[2021-08-22] MEDS: PANTOPRAZOLE 40MG VIAL (C9113 PER 1) IV SCH ×2 (10:22→20:28)
[2021-08-22] MEDS: LEVEMIR (INSULIN DETEMIR) 1 UNITS/0.01ML SC SCH ×2 (10:22→20:28)
--- NOTE | 2021-08-22 11:40 | IPNPDOC ---
Text Note Date of Service The patient was seen on 08/22/21. NOTE Subjective: Patient somnolent in the morning, not follows command Objective: GENERAL APPEARANCE: Somnolent female, ill looking HEENT: no scleral icterus, plus JVD, EOMI CARDIOVASCULAR: Irregularly irregular LUNGS: Diminished lung sounds bilaterally ABDOMEN: Distended, nontender MUSCULOSKELETAL: no cyanosis, +2 leg swelling bilaterally INTEGUMENT: no generalized pallor NEUROLOGICAL: Moves 4 limbs, not follows commands Assessment and plan Patient 66 years old female with past medical history of end-stage liver disease, chronic kidney disease, type 2 diabetes presented to the hospital with ascites and acute kidney failure. Patient was diagnosed with hepatorenal synd ge. Patient received dialysis session due to anuria. Subsequently she responded to Lasix drip. She had paracentesis, fluid was transudate. Patient had EGD, she was found to have Gastric antral vascular ectasia with bleeding. I contacted [facility] in the [place] to transfer care, patient is in the liver transplant list. No bed available for now Hepatic encephalopathy Continue treatment with lactulose via NG tube Acute oliguric kidney failure/hepatic renal syndrome/anasarca Secondary to hepatorenal syndrome Patient received dialysis She is making good urine output on the Lasix drip. Dialysis on hold per nephrology team Nephrology team follows her Diastolic CHF Continue Lasix drip Hyponatremia Secondary to volume overload due to hepatorenal syndrome Continue to monitor Blood loss anemia/GI bleed Stool positive for blood Patient has history of hemorrhoids, history of AVM and esophageal varices Hemoglobin stable status post 2 units of blood transfusion EGD was done in this admission and shows - Gastric antral vascular ectasia with bleeding. Treated with argon plasma coagulation (APC). - Multiple bleeding angiectasias in the duodenum. Treated with argon plasma coagulation (APC). Clip was placed. 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 Continue PPI and sucralfate Ascites/cirrhosis/CAMPBELL Patient had paracentesis, however she developed ascites again. Paracentesis was repeated on 08/20/2021. 2.7 L of transudative fluid was evacuated Patient is in a high risk of SBP, she will need to be on ciprofloxacin in the prophylaxis dose. Currently she covered with ceftriaxone IV Hyperkalemia Resolved Type 2 diabetes Continue insulin sliding scale Detemir twice daily Acute L1 compression fracture Patient received calcitonin for total 3 days Orthopedic team recommended physical therapy, bed elevation. TLSO brace but given her vascular ports this may be difficult to tolerate PT/OT Hypothyroidism Continue levothyroxine DVT: Sequentials VS,Fishbone, I+O VS, Fishbone, I+O Laboratory Tests 08/21/21 14:29 08/22/21 04:11 Vital Signs Date Time Temp Pulse Resp B/P (MAP) Pulse Ox O2 Delivery O2 Flow Rate FiO2 08/22/21 08:00 98.8 89 18 134/61 (85) 96 Room Air 08/19/21 15:00 96 08/17/21 14:15 2.0 I&O- Last 24 Hours up to 6 AM 08/22/21 05:59 Intake Total 560 ml Output Total 2975 ml Balance -2415 ml TRINI SMALL DO Aug 22, 2021 11:40
[2021-08-22 12:00] VITALS: BP 132/69
[2021-08-22] MEDS: cefTRIAXone SOD 2 GM in D5W MINI-BAG PLUS 50 ML IV SCH (14:41)
[2021-08-22] MEDS ORDERED: KCL 20MEQ IN 100ML SWI (KRUN) 20 MEQ in IV 1 EA IV ONE ×2 (15:00)
[2021-08-22] MEDS ORDERED: hydrALAZINE 20MG/ML 1ML VIAL (J0360 PER 20MG) IV PRN (15:55)
[2021-08-22 16:00] VITALS: BP 170/80
[2021-08-22] MEDS: FUROSEMIDE injection 250 MG in D5W 225 ML IV SCH (18:01)
[2021-08-22 20:00] VITALS: BP 134/54
[2021-08-22] MEDS: VITAMIN D 1,000 INTERNATIONAL UNITS TABLET PO SCH (20:29)
[2021-08-22] MEDS: ASCORBIC ACID 250 MG TAB PO SCH (20:30)
[2021-08-22] MEDS: SPIRONOLACTONE 50 MG TAB PO SCH (20:30)
[2021-08-22] MEDS: allopurinoL 100 MG TAB PO SCH (20:30)
--- NOTE | 2021-08-22 23:54 | IPNPDOC ---
Subjective CC/HPI The patient is a 66-year-old female admitted with a reason for visit of Acute On Chronic Kidney Injury, Hyperammonemia. Events since last encounter Pt was seen today in AM at bedside. She is still very obtunded. Not eating much. Meds being given via NGT. Renal function stable Cr 1.8-->1.9. UOP 2.4L/1.4L by the time I saw her in AM. She continues on Lasix infusion. General: Reports: ROS Unobtainable (Encephalopathic.) Objective Physical Examination General Exam: Other (Awake and encephalopathic); No: Alert EYE EXAM: Other Eye Symptoms (Pupils are reactive) ENT EXAM: Atraumatic, Mucous membr. moist/pink, Other ENT (Temporal wasting noted.NGT in situ) Neck Exam: Supple; No: JVD Chest Exam: Clear to auscultation, Normal air movement; No: Rales Heart Exam: Rate Normal, Normal S1, Normal S2; No: Murmurs, Rubs ABDOMEN EXAM: Normal bowel sounds, Soft; No: Tenderness Female Exam: No: Nl Ext Genitalia (Teixeira catheter noted) Extremity Exam: Edema (2+ edema of legs noted); No: Clubbing, Cyanosis Skin Exam: Nl turgor and temperature; No: Rash Neuro Exam: No: Normal Speech, Sensation Intact (Encephalopathy) Psych Exam: No: Mental status NL, Oriented x 3 Vital Signs/I&O Vital Signs Date Time Temp Pulse Resp B/P (MAP) Pulse Ox O2 Delivery O2 Flow Rate FiO2 08/22/21 20:00 98.4 89 19 134/54 (80) 98 Room Air 08/19/21 15:00 96 08/17/21 14:15 2.0 I&O- Last 24 Hours up to 6 AM 08/22/21 06:00 Intake Total 560 ml Output Total 2975 ml Balance -2415 ml Laboratory Data Labs 24H Laboratory Tests 2 08/22/21 04:11: Immature Granulocyte % (Auto) 0.3, Neutrophils (%) (Auto) 66.6H, Lymphocytes (%) (Auto) 15.8L, Monocytes (%) (Auto) 13.7H, Eosinophils (%) (Auto) 2.8, Basophils (%) (Auto) 0.8, Neutrophils # (Auto) 6.8, Lymphocytes # (Auto) 1.6, Monocytes # (Auto) 1.4H, Eosinophils # (Auto) 0.3, Basophils # (Auto) 0.1, Nucleated Red B lood Cells % (auto) 0.0, Anion Gap 8, Glomerular Filtration Rate 28.0L, Calcium Level 8.4L, Magnesium Level 2.1, Total Bilirubin 1.4H, Aspartate Amino Transf (AST/SGOT) 34, Alanine Aminotransferase (ALT/SGPT) 12, Alkaline Phosphatase 161H, Total Protein 5.4L, Albumin 1.9L, Albumin/Globulin Ratio 0.5L 08/22/21 10:54: Ammonia 42H 08/22/21 12:19: Bedside Glucose (Misc Panel) 116H 08/22/21 17:47: Bedside Glucose (Misc Panel) 115 08/22/21 20:27: Bedside Glucose (Misc Panel) 133H CBC/BMP Laboratory Tests 08/22/21 04:11 FSBS Laboratory Tests Test 08/22/21 12:19 08/22/21 17:47 08/22/21 20:27 Range/Units Bedside Glucose (Misc Panel) 116 115 133 80-115 MG/DL Current Medications Current Medications Medications (Trade) Dose Ordered Sig/Alicia Route PRN Reason Start Time Stop Time Status Last Admin Dose Admin Allopurinol (Zyloprim) 100 mg QHS PO 08/10/21 21:00 08/22/21 20:30 Ascorbic Acid (Vitamin C) 250 mg QHS PO 08/10/21 21:00 08/22/21 20:30 Calcitonin [place] (Miacalcin (Fortical)) 1 sprays DAILY NA 08/16/21 17:00 08/19/21 09:00 DC 08/18/21 10:30 Ceftriaxone Sodium 2 gm/ Dextrose 50 ml @ 100 mls/hr Q24H IV 08/10/21 17:00 08/11/21 06:51 DC 08/10/21 17:00 Ceftriaxone Sodium 2 gm/ Dextrose 50 ml @ 100 mls/hr Q24H IV 08/18/21 14:00 08/22/21 14:41 Ciprofloxacin (Cipro) 250 mg DAILY@06 PO 08/18/21 06:00 08/18/21 13:38 DC Ciprofloxacin (Cipro) 500 mg BID@06,18 PO 08/13/21 07:20 08/13/21 07:49 DC Ciprofloxacin (Cipro) 500 mg DAILY@0600 PO 08/14/21 06:00 08/15/21 07:18 DC 08/15/21 05:43 Dextrose (Dextrose 50%) 25 ml ASDIRECTED PRN IV SEE LABEL COMMENTS 08/10/21 16:20 Furosemide 250 mg/ Dextrose 250 ml @ 10 mls/hr Q24H IV 08/15/21 22:30 08/19/21 13:20 DC 08/18/21 21:35 Furosemide 250 mg/ Dextrose 250 ml @ 10 mls/hr Q24H IV 08/19/21 13:20 08/19/21 13:22 DC Furosemide 250 mg/ Dextrose 250 ml @ 10 mls/hr Q24H IV 08/19/21 21:00 08/22/21 18:01 Gabapentin (Neurontin) 100 mg BID PO 08/10/21 21:00 Hold 08/22/21 10:21 Glucagon (Glucagon) 1 mg ASDIRECTED PRN SC SEE LABEL COMMENTS 08/10/21 16:20 Glucose (Glucose) 16 GM ASDIRECTED PRN PO SEE LABEL COMMENTS 08/10/21 16:20 Heparin Sodium (Heparin (Flush)) 200 units ASDIRECTED PRN IV SEE LABEL COMMENTS 08/19/21 18:50 Heparin Sodium (Heparin (Flush)) 200 units PICC IV 08/20/21 06:00 08/22/21 18:02 Home Med (Home Med List Complete!) ASDIRECTED XX 08/10/21 17:35 08/10/21 17:37 DC Hydralazine HCl (Apresoline) 10 mg Q1H PRN IV htn 08/22/21 15:55 Insulin Detemir (Levemir Insulin) 10 units BID SC 08/17/21 21:00 08/18/21 15:22 DC Insulin Detemir (Levemir Insulin) 14 units BID SC 08/18/21 21:00 08/22/21 20:28 Insulin Human Lispro (HumaLOG INSULIN) SEE PROTOCOL TABLE AC SC 08/10/21 17:30 08/21/21 18:31 Insulin Human Lispro (HumaLOG INSULIN) SEE PROTOCOL TABLE QHS SC 08/10/21 21:00 08/15/21 21:42 Lactulose (Cephulac) 30 ml QID PO 08/11/21 21:00 08/14/21 18:27 DC 08/14/21 17:59 Lactulose (Cephulac) 40 ml QID PO 08/14/21 21:00 08/22/21 20:31 Levothyroxine Sodium (Synthroid) 25 mcg DAILY@0600 PO 08/11/21 06:00 08/22/21 05:11 Levothyroxine Sodium (Synthroid) 25 mcg QHS PO 08/10/21 21:00 08/10/21 22:25 DC Magnesium Oxide (Mag-Ox) 400 mg TID PO 08/10/21 21:00 08/22/21 20:30 Midodrine (Proamatine) 15 mg TID@0900,1200,1600 PO 08/11/21 09:00 08/22/21 12:42 Octreotide Acetate 1200 mcg/ Sodium Chloride 240 ml @ 10 mls/hr Q24H IV 08/18/21 16:00 08/21/21 09:00 DC 08/20/21 14:27 Omeprazole (PriLOSEC) 40 mg QHS PO 08/10/21 21:00 08/18/21 15:26 DC 08/17/21 20:35 Ondansetron HCl (ZOFRAN INJection) 4 mg Q4HP PRN IV NAUSEA OR VOMITING 08/19/21 18:10 08/19/21 20:10 DC Oxycodone HCl (Roxicodone, Oxyir) 5 mg Q4HP PRN PO PAIN LEVEL 5-10 08/14/21 09:50 08/14/21 12:51 DC 08/14/21 12:31 Oxycodone HCl (Roxicodone, Oxyir) 5 mg Q6HP PRN PO PAIN LEVEL 5-10 08/14/21 18:00 08/20/21 21:41 Pantoprazole Sodium (Protonix) 40 mg Q12H IV 08/18/21 21:00 08/22/21 20:28 Promethazine HCl (PHENERGAN INJection) 12.5 mg Q6HP PRN IV NAUSEA 08/15/21 23:55 08/16/21 00:03 Rifaximin (Xifaxan) 550 mg BID PO 08/10/21 21:00 08/22/21 20:29 Sodium Chloride 1,000 ml @ 120 mls/hr Q8H20M IV 08/11/21 14:30 08/11/21 22:49 DC 08/11/21 14:57 Sodium Chloride (Saline Lock Flush) 10 ml ASDIRECTED PRN IV SEE LABEL COMMENTS 08/19/21 18:50 Sodium Chloride (Saline Lock Flush) 10 ml PICC IV 08/20/21 06:00 08/22/21 18:02 Spironolactone (Aldactone) 50 mg QHS PO 08/13/21 21:00 08/22/21 20:30 Sucralfate (Carafate) 1 gm ACHS PO 08/10/21 21:00 08/22/21 20:30 Tizanidine HCl (Zanaflex) 4 mg TID PRN PO SPASMS 08/10/21 18:55 08/19/21 02:46 Torsemide (Demadex) 20 mg BID@0900,1700 PO 08/11/21 09:00 08/16/21 07:10 DC 08/14/21 17:59 Vitamin D (Vitamin D) 1,000 units QHS PO 08/10/21 21:00 08/22/21 20:29 Allergies Coded Allergies: No Known Drug Allergies (Verified Allergy, Unknown, 01/19/21) Assessment/Plan Date Seen The patient was seen on 08/22/21 in AM. Plan / VTE VTE Prophylaxis Ordered?: No Plan Orders past 48 Hours Orders Electrocardiogram Adult (08/21/21 09:01) Ammonia (08/21/21 09:01) Fingerstick Blood Sugar (08/21/21 17:47) Fingerstick Blood Sugar (08/21/21 20:30) Ammonia (08/22/21 10:48) Fingerstick Blood Sugar (08/22/21 12:19) Kcl 20meq In 100ml Swi (Krun) (Kcl 20meq (08/22/21 15:00) Hydralazine Hcl Inj (Apresoline) (08/22/21 15:55) Fingerstick Blood Sugar (08/22/21 17:47) Fingerstick Blood Sugar (08/22/21 20:27) Plan Text 1. Oliguric acute renal failure: She remains on an I.V. Lasix drip and I.V. albumin. Her urine output is >2L daily. No need of HD today. Cr is stable.Continue Midodrine. 2. Hepatic encephalopathy: Ammonia is 196-->42 now. She is on lactulose via NGT. 3. Cirrhosis with recurrent ascites:2.7L of fluid of removed 2 days ago. Further volume optimization with Lasix. 4. Upper GI Bleed: S/p EGD with laser+ clipping of multiple bleeding sites. Rest of management as per GI. 5. HFpEF, Anasarca: Responding to Lasix drip, continue current dose. 6.Nutrition: start Nepro via NGT. Discussed with Hospitalist. They will start feed once GI bleed resolves. WILFRID GUPTA MD Aug 22, 2021 23:53
[2021-08-23] VITALS (18 sets, daily range): BP systolic 83–156; BP diastolic 44–75
[2021-08-23 04:38] LABS: BASO # 0.1 10^3/uL (0.0-0.2); BASO % 0.8 % (0.0-1.0); EOS # 0.4 10^3/uL (0.0-0.5); EOS % 3.9 % (0.0-3.0); HEMATOCRIT 25.1 % (36.0-47.0); LYMPH # 1.4 10^3/uL (1.5-5.0); LYMPH % 15.9 % (24.0-44.0); MEAN CORPUSCULAR HEMOGLOBIN 31.6 pg (27.0-33.0); MEAN CORPUSCULAR HGB CONC 31.9 g/dl (32.0-36.5); MEAN CORPUSCULAR VOLUME 99.2 fl (80.0-96.0); MONO # 1.2 10^3/uL (0.0-0.8); NEUTROPHILS % 66.2 % (36.0-66.0); PLATELET COUNT, AUTOMATED 125 10^3/uL (150-450); RED BLOOD COUNT 2.53 10^6/uL (4.00-5.40)
[2021-08-23 05:04] LABS: ALBUMIN 1.8 GM/DL (3.2-5.2); BILIRUBIN,TOTAL 1.1 MG/DL (0.2-1.0); CALCIUM LEVEL 8.3 MG/DL (8.8-10.2); CREATININE FOR GFR 1.82 MG/DL (0.55-1.30); GLOMERULAR FILTRATION RATE 29.8 (>45); POTASSIUM SERUM 3.4 MEQ/L (3.5-5.1); TOTAL PROTEIN 5.4 GM/DL (6.4-8.2)
[2021-08-23] MEDS: LEVOTHYROXINE 25MCG TABLET (0.025MG) PO SCH (05:13)
[2021-08-23] MEDS: SODIUM CHLORIDE 0.9% INJ 10 ML SYR IV SCH ×2 (05:14→17:21)
[2021-08-23] MEDS: HumaLOG INSULIN (NovoLOG) PER UNIT SC SCH ×4 (07:30→21:00)
[2021-08-23] MEDS ORDERED: KCL 10MEQ/100ML SWI (KRUN) 10 MEQ in IV 1 EA IV ONE (08:00)
[2021-08-23] MEDS ORDERED: POTASSIUM CHLORIDE 10% LIQ 20 MEQ/15 ML UDC PO ONE (08:00)
[2021-08-23] MEDS: PANTOPRAZOLE 40MG VIAL (C9113 PER 1) IV SCH ×2 (08:59→23:18)
[2021-08-23] MEDS: LACTULOSE 20 GM/30 ML SYRUP UD PO SCH ×4 (08:59→23:20)
[2021-08-23] MEDS: rifAXIMin 550 MG TAB (XIFAXAN) PO SCH ×2 (09:00→23:20)
[2021-08-23] MEDS: SUCRALFATE 1 GM TAB PO SCH ×4 (09:00→23:20)
[2021-08-23] MEDS: MIDODRINE 5 MG TAB PO SCH ×3 (09:00→16:01)
[2021-08-23] MEDS: MAGNESIUM OXIDE 400MG TAB (MAG-OX) PO SCH ×3 (09:02→23:20)
--- NOTE | 2021-08-23 10:05 | IPNPDOC ---
Text Note Date of Service The patient was seen on 08/23/21. NOTE Subjective: Patient awake and alert in the morning. No any acute events. Ramon johnson was able to answer my questions Objective: GENERAL APPEARANCE: NAD HEENT: no scleral icterus, plus JVD, EOMI CARDIOVASCULAR: Irregularly irregular LUNGS: Diminished lung sounds bilaterally ABDOMEN: Distended, nontender MUSCULOSKELETAL: no cyanosis, +2 leg swelling bilaterally INTEGUMENT: no generalized pallor NEUROLOGICAL: Moves 4 limbs, follows commands Assessment and plan Patient 66 years old female with past medical history of end-stage liver disease, chronic kidney disease, type 2 diabetes presented to the hospital with ascites and acute kidney failure. Patient was diagnosed with hepatorenal syndrome. Patient received dialysis session due to anuria. Subsequently she responded to Lasix drip. She had paracentesis, fluid was transudate. Patient had EGD, she was found to have Gastric antral vascular ectasia with bleeding. Again, I contacted [facility] in the [place] to transfer care, they told me patient is not in the liver transplant list and patient need evaluation first in the outpatient settings. Family stated before that patient is in the list for liver transplantation. Hepatic encephalopathy Resolved today, ammonia level significantly improved Continue treatment with rifaximin and lactulose Will remove NG tube and start diabetes diet Acute oliguric kidney failure/hepatic renal syndrome/anasarca Secondary to hepatorenal syndrome Patient received dialysis She is making good urine output on the Lasix drip. Dialysis on hold per nephrology team Nephrology team follows her Diastolic CHF Continue Lasix drip Hyponatremia Resolved Secondary to volume overload due to hepatorenal syndrome Continue to monitor Blood loss anemia/GI bleed Stool positive for blood Patient has history of hemorrhoids, history of AVM and esophageal varices EGD was done in this admission and shows - Gastric antral vascular ectasia with bleeding. Treated with argon plasma coagulation (APC). - Multiple bleeding angiectasias in the duodenum. Treated with argon plasma coagulation (APC). Clip was placed. 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 Continue PPI and sucralfate Her hemoglobin dropped to 8. I talked to Dr. Chung, he recommended to continue current treatment. GI team will proceed with colonoscopy on We will give 2 units of blood Ascites/cirrhosis/CAMPBELL Patient had paracentesis, however she developed ascites again. Paracentesis was repeated on 08/20/2021. 2.7 L of transudative fluid was evacuated Patient is in a high risk of SBP, she will need to be on ciprofloxacin in the prophylaxis dose. Currently she covered with ceftriaxone IV Hyperkalemia Resolved Type 2 diabetes Continue insulin sliding scale Detemir twice daily Acute L1 compression fracture Patient received calcitonin for total 3 days Orthopedic team recommended physical therapy, bed elevation. TLSO brace but given her vascular ports this may be difficult to tolerate PT/OT Hypothyroidism Continue levothyroxine DVT: Sequentials VS,Fishbone, I+O VS, Fishbone, I+O Laboratory Tests 08/23/21 04:28 Vital Signs Date Time Temp Pulse Resp B/P (MAP) Pulse Ox O2 Delivery O2 Flow Rate FiO2 08/23/21 08:38 97.8 85 20 129/61 (83) 96 Room Air 08/19/21 15:00 96 08/17/21 14:15 2.0 I&O- Last 24 Hours up to 6 AM 08/23/21 06:00 Intake Total 460 ml Output Total 2100 ml Balance -1640 ml TRINI SMALL DO Aug 23, 2021 10:05
[2021-08-23] MEDS: LEVEMIR (INSULIN DETEMIR) 1 UNITS/0.01ML SC SCH ×2 (10:44→23:19)
[2021-08-23] MEDS: SODIUM CHLORIDE 0.9% INJ 10 ML SYR IV PRN ×3 (15:47→18:57)
[2021-08-23] MEDS: cefTRIAXone SOD 2 GM in D5W MINI-BAG PLUS 50 ML IV SCH (16:01)
[2021-08-23] MEDS: tiZANidine 4 MG TAB PO PRN (16:47)
[2021-08-23] MEDS: FUROSEMIDE injection 250 MG in D5W 225 ML IV SCH (17:19)
--- NOTE | 2021-08-23 18:57 | ECGEPIP ---
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
--- NOTE | 2021-08-23 19:18 | ECGEPIP ---
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
[2021-08-23 19:19] LABS: HEMATOCRIT 21.8 % (36.0-47.0)
[2021-08-23 19:29] LABS: HEMOGLOBIN 6.9 g/dl (12.0-15.5)
[2021-08-23] MEDS: allopurinoL 100 MG TAB PO SCH (21:00)
[2021-08-23] MEDS: ASCORBIC ACID 250 MG TAB PO SCH (21:00)
[2021-08-23] MEDS: VITAMIN D 1,000 INTERNATIONAL UNITS TABLET PO SCH (21:00)
--- NOTE | 2021-08-23 22:50 | IPNPDOC ---
Subjective CC/HPI The patient is a 66-year-old female admitted with a reason for visit of Acute On Chronic Kidney Injury, Hyperammonemia. Events since last encounter PT was seen at bedside in AM. She was much more awake and alert. NGT has been removed. She has started eating now. Renal function is stable Cr 1.9-->1.8. She continues on Lasix infusion. She is oriented x2. General: Denies: Chills, Night Sweats Constitutional: Denies: Chills, Fever Eyes: Denies: Pain, Vision change ENT: Denies: Head Aches, Ear Pain Skin: Denies: Rash, Lesions Pulmonary: Denies: Dyspnea, Cough Cardiovascular: Denies: Chest Pain, Palpitations Gastrointestinal: Denies: Nausea, Vomiting Genitourinary: Denies: Dysuria, Frequency Hematologic: Denies: Bruising, Bleeding Excessively Musculoskeletal: Denies: Neck Pain, Back Pain Neurological: Reports: Weakness, Numbness Psych: Reports: Depression Objective Physical Examination General Exam: Other (Awake and oriented x 2); No: Alert EYE EXAM: PERRLA, Other Eye Symptoms (Pupils are reactive) ENT EXAM: Atraumatic, Mucous membr. moist/pink, Other ENT (Temporal wasting.) Neck Exam: Supple; No: JVD Chest Exam: Clear to auscultation, Normal air movement; No: Rales Heart Exam: Rate Normal, Normal S1, Normal S2; No: Murmurs, Rubs ABDOMEN EXAM: Normal bowel sounds, Soft; No: Tenderness Female Exam: No: Nl Ext Genitalia (Teixeira catheter noted) Extremity Exam: Edema (1+ edema of legs noted); No: Clubbing, Cyanosis Skin Exam: Nl turgor and temperature; No: Rash Neuro Exam: Normal Speech, Strength at 5/5 X4 ext; No: Sensation Intact (Encephalopathy) Psych Exam: Mood NL; No: Mental status NL (More awake today), Oriented x 3 (x2) Vital Signs/I&O Vital Signs Date Time Temp Pulse Resp B/P (MAP) Pulse Ox O2 Delivery O2 Flow Rate FiO2 08/23/21 20:00 98.2 59 19 97/46 (63) 96 Room Air 08/19/21 15:00 96 08/17/21 14:15 2.0 I&O- Last 24 Hours up to 6 AM 08/23/21 06:00 Intake Total 460 ml Output Total 2100 ml Balance -1640 ml Laboratory Data Labs 24H Laboratory Tests 2 08/23/21 04:28: Immature Granulocyte % (Auto) 0.2, Neutrophils (%) (Auto) 66.2H, Lymphocytes (%) (Auto) 15.9L, Monocytes (%) (Auto) 13.0H, Eosinophils (%) (Auto) 3.9H, Basophils (%) (Auto) 0.8, Neutrophils # (Auto) 6.0, Lymphocytes # (Auto) 1.4L, Monocytes # (Auto) 1.2H, Eosinophils # (Auto) 0.4, Basophils # (Auto) 0.1, Nucleated Red Blood Cells % (auto) 0.0, Anion Gap 5L, Glomerular Filtration Rate 29.8L, Calcium Level 8.3L, Magnesium Level 2.0, Total Bilirubin 1.1H, Aspartate Amino Transf (AST/SGOT) 33, Alanine Aminotransferase (ALT/SGPT) 11L, Alkaline Phosphatase 157H, Total Protein 5.4L, Albumin 1.8L, Albumin/Globulin Ratio 0.5L 08/23/21 06:15: Bedside Glucose (Misc Panel) 116H 08/23/21 11:59: Bedside Glucose (Misc Panel) 215H 08/23/21 16:44: Bedside Glucose (Misc Panel) 201H 08/23/21 20:45: Bedside Glucose (Misc Panel) 124H CBC/BMP Laboratory Tests 08/23/21 04:28 08/23/21 18:55 FSBS Laboratory Tests Test 08/23/21 06:15 08/23/21 11:59 08/23/21 16:44 08/23/21 20:45 Range/Units Bedside Glucose (Misc Panel) 116 215 201 124 80-115 MG/DL Current Medications Current Medications Medications (Trade) Dose Ordered Sig/Alicia Route PRN Reason Start Time Stop Time Status Last Admin Dose Admin Allopurinol (Zyloprim) 100 mg QHS PO 08/10/21 21:00 08/22/21 20:30 Ascorbic Acid (Vitamin C) 250 mg QHS PO 08/10/21 21:00 08/22/21 20:30 Calcitonin [place] (Miacalcin (Fortical)) 1 sprays DAILY NA 08/16/21 17:00 08/19/21 09:00 DC 08/18/21 10:30 Ceftriaxone Sodium 2 gm/ Dextrose 50 ml @ 100 mls/hr Q24H IV 08/10/21 17:00 08/11/21 06:51 DC 08/10/21 17:00 Ceftriaxone Sodium 2 gm/ Dextrose 50 ml @ 100 mls/hr Q24H IV 08/18/21 14:00 08/23/21 23:59 08/23/21 16:01 Ciprofloxacin (Cipro) 250 mg DAILY@06 PO 08/18/21 06:00 08/18/21 13:38 DC Ciprofloxacin (Cipro) 250 mg DAILY@0600 PO 08/24/21 06:00 Ciprofloxacin (Cipro) 500 mg BID@06,18 PO 08/13/21 07:20 08/13/21 07:49 DC Ciprofloxacin (Cipro) 500 mg DAILY@0600 PO 08/14/21 06:00 08/15/21 07:18 DC 08/15/21 05:43 Dextrose (Dextrose 50%) 25 ml ASDIRECTED PRN IV SEE LABEL COMMENTS 08/10/21 16:20 Furosemide 250 mg/ Dextrose 250 ml @ 10 mls/hr Q24H IV 08/15/21 22:30 08/19/21 13:20 DC 08/18/21 21:35 Furosemide 250 mg/ Dextrose 250 ml @ 10 mls/hr Q24H IV 08/19/21 13:20 08/19/21 13:22 DC Furosemide 250 mg/ Dextrose 250 ml @ 10 mls/hr Q24H IV 08/19/21 21:00 08/23/21 17:19 Gabapentin (Neurontin) 100 mg BID PO 08/10/21 21:00 Hold 08/22/21 10:21 Glucagon (Glucagon) 1 mg ASDIRECTED PRN SC SEE LABEL COMMENTS 08/10/21 16:20 Glucose (Glucose) 16 GM ASDIRECTED PRN PO SEE LABEL COMMENTS 08/10/21 16:20 Heparin Sodium (Heparin (Flush)) 200 units ASDIRECTED PRN IV SEE LABEL COMMENTS 08/19/21 18:50 08/23/21 18:57 Heparin Sodium (Heparin (Flush)) 200 units PICC IV 08/20/21 06:00 08/23/21 05:14 Home Med (Home Med List Complete!) ASDIRECTED XX 08/10/21 17:35 08/10/21 17:37 DC Hydralazine HCl (Apresoline) 10 mg Q1H PRN IV htn 08/22/21 15:55 Insulin Detemir (Levemir Insulin) 10 units BID SC 08/23/21 09:00 08/23/21 10:44 Insulin Detemir (Levemir Insulin) 10 units BID SC 08/17/21 21:00 08/18/21 15:22 DC Insulin Detemir (Levemir Insulin) 14 units BID SC 08/18/21 21:00 08/23/21 09:11 DC 08/22/21 20:28 Insulin Human Lispro (HumaLOG INSULIN) SEE PROTOCOL TABLE AC SC 08/10/21 17:30 08/23/21 17:18 Insulin Human Lispro (HumaLOG INSULIN) SEE PROTOCOL TABLE QHS SC 08/10/21 21:00 08/15/21 21:42 Lactulose (Cephulac) 30 ml QID PO 08/11/21 21:00 08/14/21 18:27 DC 08/14/21 17:59 Lactulose (Cephulac) 40 ml QID PO 08/14/21 21:00 08/23/21 16:39 Levothyroxine Sodium (Synthroid) 25 mcg DAILY@0600 PO 08/11/21 06:00 08/23/21 05:13 Levothyroxine Sodium (Synthroid) 25 mcg QHS PO 08/10/21 21:00 08/10/21 22:25 DC Magnesium Oxide (Mag-Ox) 400 mg TID PO 08/10/21 21:00 08/23/21 16:01 Midodrine (Proamatine) 15 mg TID@0900,1200,1600 PO 08/11/21 09:00 08/23/21 16:01 Octreotide Acetate 1200 mcg/ Sodium Chloride 240 ml @ 10 mls/hr Q24H IV 08/18/21 16:00 08/21/21 09:00 DC 08/20/21 14:27 Omeprazole (PriLOSEC) 40 mg QHS PO 08/10/21 21:00 08/18/21 15:26 DC 08/17/21 20:35 Ondansetron HCl (ZOFRAN INJection) 4 mg Q4HP PRN IV NAUSEA OR VOMITING 08/19/21 18:10 08/19/21 20:10 DC Oxycodone HCl (Roxicodone, Oxyir) 5 mg Q4HP PRN PO PAIN LEVEL 5-10 08/14/21 09:50 08/14/21 12:51 DC 08/14/21 12:31 Oxycodone HCl (Roxicodone, Oxyir) 5 mg Q6HP PRN PO PAIN LEVEL 5-10 08/14/21 18:00 08/20/21 21:41 Pantoprazole Sodium (Protonix) 40 mg Q12H IV 08/18/21 21:00 08/23/21 08:59 Promethazine HCl (PHENERGAN INJection) 12.5 mg Q6HP PRN IV NAUSEA 08/15/21 23:55 08/16/21 00:03 Rifaximin (Xifaxan) 550 mg BID PO 08/10/21 21:00 08/23/21 09:00 Sodium Chloride 1,000 ml @ 120 mls/hr Q8H20M IV 08/11/21 14:30 08/11/21 22:49 DC 08/11/21 14:57 Sodium Chloride (Saline Lock Flush) 10 ml ASDIRECTED PRN IV SEE LABEL COMMENTS 08/19/21 18:50 08/23/21 18:57 Sodium Chloride (Saline Lock Flush) 10 ml PICC IV 08/20/21 06:00 08/23/21 05:14 Spironolactone (Aldactone) 50 mg QHS PO 08/13/21 21:00 08/22/21 20:30 Sucralfate (Carafate) 1 gm ACHS PO 08/10/21 21:00 08/23/21 16:39 Tizanidine HCl (Zanaflex) 4 mg TID PRN PO SPASMS 08/10/21 18:55 08/23/21 16:47 Torsemide (Demadex) 20 mg BID@0900,1700 PO 08/11/21 09:00 08/16/21 07:10 DC 08/14/21 17:59 Vitamin D (Vitamin D) 1,000 units QHS PO 08/10/21 21:00 08/22/21 20:29 Allergies Coded Allergies: No Known Drug Allergies (Verified Allergy, Unknown, 01/19/21) Assessment/Plan Date Seen The patient was seen on 08/23/21 in AM. Plan / VTE VTE Prophylaxis Ordered?: No Plan Orders past 48 Hours Orders Ammonia (08/22/21 10:48) Fingerstick Blood Sugar (08/22/21 12:19) Kcl 20meq In 100ml Swi (Krun) (Kcl 20meq (08/22/21 15:00) Hydralazine Hcl Inj (Apresoline) (08/22/21 15:55) Fingerstick Blood Sugar (08/22/21 17:47) Fingerstick Blood Sugar (08/22/21 20:27) Electrocardiogram Adult (08/23/21 07:00) Fingerstick Blood Sugar (08/23/21 06:15) Kcl 10meq/100ml Swi (Krun) (Kcl 10meq/10 (08/23/21 08:00) Potassium Chloride Liquid (Potassium Chl (08/23/21 08:00) Weight In Kg. (08/23/21 07:33) Intake & Output: Qmp Order (08/23/21 07:33) Transfuse Fresh Frozen Plasma (08/23/21 07:33) Frozen Plasma 24 (08/23/21 07:33) Insulin Detemir (Levemir Insulin) (08/23/21 09:00) * Nursing Order * (08/23/21 09:15) Consistent Carbohydrates (08/23/21 Breakfast) Fingerstick Blood Sugar (08/23/21 11:59) Ciprofloxacin (Cipro) (08/24/21 06:00) Hemoglobin & Hematocrit (08/23/21 19:00) Hemoglobin & Hematocrit (08/24/21 01:00) Hemoglobin & Hematocrit (08/24/21 07:00) Hemoglobin & Hematocrit (08/24/21 13:00) Hemoglobin & Hematocrit (08/24/21 19:00) Hemoglobin & Hematocrit (08/25/21 01:00) Hemoglobin & Hematocrit (08/25/21 07:00) Hemoglobin & Hematocrit (08/25/21 13:00) Fingerstick Blood Sugar (08/23/21 16:44) Transfuse Packed Cells (08/23/21 20:07) Packed Cells (08/23/21 20:07) Type & Screen (08/23/21 20:07) Fingerstick Blood Sugar (08/23/21 20:45) Plan Text 1. Oliguric acute renal failure: She remains on an I.V. Lasix drip and I.V. albumin. Her urine output is >2L daily. No need of HD today. Cr is stable.Continue Midodrine. 2. Hepatic encephalopathy: Ammonia is better. She is on lactulose. 3. Cirrhosis with recurrent ascites:2.7L of fluid of removed 3 days ago. Further volume optimization with Lasix. 4. Upper GI Bleed: S/p EGD with laser+ clipping of multiple bleeding sites. Rest of management as per GI.Getting FFP today. 5. HFpEF, Anasarca: Responding to Lasix drip, continue current dose. 6.Nutrition: Eating her breakfast when I saw her. WILFRID GUPTA MD Aug 23, 2021 22:50
[2021-08-23] MEDS: SPIRONOLACTONE 50 MG TAB PO SCH (23:20)
[2021-08-24] VITALS (10 sets, daily range): BP systolic 86–117; BP diastolic 49–55
[2021-08-24] MEDS: SODIUM CHLORIDE 0.9% INJ 10 ML SYR IV SCH ×2 (06:28→18:03)
[2021-08-24] MEDS: LEVOTHYROXINE 25MCG TABLET (0.025MG) PO SCH (06:29)
[2021-08-24] MEDS: CIPROFLOXACIN 250MG TAB PO SCH (06:30)
[2021-08-24 06:43] LABS: BASO # 0.1 10^3/uL (0.0-0.2); EOS # 0.3 10^3/uL (0.0-0.5); EOS % 4.6 % (0.0-3.0); HEMATOCRIT 26.8 % (36.0-47.0); HEMOGLOBIN 8.6 g/dl (12.0-15.5); LYMPH # 1.1 10^3/uL (1.5-5.0); LYMPH % 18.5 % (24.0-44.0); MEAN CORPUSCULAR HGB CONC 32.1 g/dl (32.0-36.5); MEAN CORPUSCULAR VOLUME 96.8 fl (80.0-96.0); MONO # 0.7 10^3/uL (0.0-0.8); MONO % 11.9 % (2.0-8.0); NEUTROPHILS # 3.7 10^3/uL (1.5-8.5); NEUTROPHILS % 63.7 % (36.0-66.0); RED BLOOD COUNT 2.77 10^6/uL (4.00-5.40); WHITE BLOOD COUNT 5.9 10^3/uL (4.0-10.0)
[2021-08-24 06:46] LABS: PLATELET COUNT, AUTOMATED 86 10^3/uL (150-450)
[2021-08-24 06:56] LABS: ALBUMIN 1.6 GM/DL (3.2-5.2); BILIRUBIN,TOTAL 1.1 MG/DL (0.2-1.0); CALCIUM LEVEL 7.8 MG/DL (8.8-10.2); CREATININE FOR GFR 1.67 MG/DL (0.55-1.30); GLOMERULAR FILTRATION RATE 32.9 (>45); MAGNESIUM LEVEL 1.8 MG/DL (1.8-2.4); POTASSIUM SERUM 3.6 MEQ/L (3.5-5.1); TOTAL PROTEIN 4.8 GM/DL (6.4-8.2)
[2021-08-24] MEDS: HumaLOG INSULIN (NovoLOG) PER UNIT SC SCH ×4 (08:57→21:00)
[2021-08-24] MEDS: LEVEMIR (INSULIN DETEMIR) 1 UNITS/0.01ML SC SCH (08:57)
[2021-08-24] MEDS: SUCRALFATE 1 GM TAB PO SCH ×4 (08:58→22:11)
[2021-08-24] MEDS: MAGNESIUM OXIDE 400MG TAB (MAG-OX) PO SCH ×3 (08:58→22:13)
[2021-08-24] MEDS: rifAXIMin 550 MG TAB (XIFAXAN) PO SCH ×2 (08:58→22:11)
[2021-08-24] MEDS: MIDODRINE 5 MG TAB PO SCH ×3 (08:58→18:00)
[2021-08-24] MEDS: PANTOPRAZOLE 40MG VIAL (C9113 PER 1) IV SCH ×2 (08:58→22:10)
[2021-08-24] MEDS: LACTULOSE 20 GM/30 ML SYRUP UD PO SCH ×4 (08:59→21:00)
[2021-08-24] MEDS: tiZANidine 4 MG TAB PO PRN (12:51)
[2021-08-24] MEDS: oxyCODONE 5MG TAB PO PRN (12:52)
[2021-08-24 14:07] LABS: HEMATOCRIT 29.7 % (36.0-47.0); HEMOGLOBIN 9.5 g/dl (12.0-15.5)
[2021-08-24] MEDS: TORSEMIDE (DEMADEX) 50 MG PER 1/2 TAB PO SCH (18:01)
[2021-08-24] MEDS ORDERED: POTASSIUM CHLORIDE 10MEQ SR TABLET PO ONE (18:15)
[2021-08-24 18:47] LABS: HEMATOCRIT 28.3 % (36.0-47.0)
--- NOTE | 2021-08-24 18:53 | IPNPDOC ---
Subjective CC/HPI The patient is a 66-year-old female admitted with a reason for visit of Acute On Chronic Kidney Injury, Hyperammonemia. Events since last encounter Pt was seen and examined at bedside in AM. She is much more awake today. she started eating more. Renal function is stable. Cr 1.8-->1.6 now. Baseline Cr is 1.5 as per previous records. She continues on IV Lasix. UOP 2.2L/1L since yesterday. General: Denies: Chills, Night Sweats Constitutional: Denies: Chills, Fever Eyes: Denies: Pain, Vision change ENT: Denies: Head Aches, Ear Pain Skin: Denies: Rash, Lesions Pulmonary: Denies: Dyspnea, Cough Cardiovascular: Denies: Chest Pain, Palpitations Gastrointestinal: Reports: Nausea; Denies: Vomiting Genitourinary: Reports: Dysuria, Other Symptoms (Teixeira) Hematologic: Denies: Bruising Musculoskeletal: Reports: Back Pain; Denies: Neck Pain Neurological: Reports: Weakness Psych: Reports: Mood Normal Objective Physical Examination General Exam: Alert, Other (Awake and oriented x 2) EYE EXAM: PERRLA, EOMI ENT EXAM: Atraumatic, Mucous membr. moist/pink, Other ENT (Temporal wasting.) Neck Exam: Supple; No: JVD Chest Exam: Clear to auscultation, Normal air movement; No: Rales Heart Exam: Rate Normal, Normal S1, Normal S2; No: Murmurs, Rubs ABDOMEN EXAM: Normal bowel sounds, Soft; No: Tenderness Female Exam: No: Nl Ext Genitalia (Teixeira catheter noted) Extremity Exam: Edema (1+ edema of legs noted); No: Clubbing, Cyanosis Skin Exam: Nl turgor and temperature; No: Rash Neuro Exam: Normal Speech, Strength at 5/5 X4 ext; No: Sensation Intact (Encephalopathy) Psych Exam: Mental status NL, Mood NL; No: Oriented x 3 (x2) Vital Signs/I&O Vital Signs Date Time Temp Pulse Resp B/P (MAP) Pulse Ox O2 Delivery O2 Flow Rate FiO2 08/24/21 16:00 97.3 58 17 95/53 (67) 94 Room Air 08/19/21 15:00 96 I&O- Last 24 Hours up to 6 AM 08/24/21 06:00 Intake Total 3521 ml Output Total 2250 ml Balance 1271 ml Laboratory Data Labs 24H Laboratory Tests 2 08/23/21 20:45: Bedside Glucose (Misc Panel) 124H 08/24/21 06:14: Immature Granulocyte % (Auto) 0.3, Neutrophils (%) (Auto) 63.7, Lymphocytes (%) (Auto) 18.5L, Monocytes (%) (Auto) 11.9H, Eosinophils (%) (Auto) 4.6H, Basophils (%) (Auto) 1.0, Neutrophils # (Auto) 3.7, Lymphocytes # (Auto) 1.1L, Monocytes # (Auto) 0.7, Eosinophils # (Auto) 0.3, Basophils # (Auto) 0.1, Nucleated Red Blood Cells % (auto) 0.0, Immature Platelet Fraction 3.5 08/24/21 06:15: Anion Gap 6L, Glomerular Filtration Rate 32.9L, Calcium Level 7.8L, Magnesium Level 1.8, Total Bilirubin 1.1H, Aspartate Amino Transf (AST/SGOT) 30, Alanine Aminotransferase (ALT/SGPT) 11L, Alkaline Phosphatase 138H, Total Protein 4.8L, Albumin 1.6L, Albumin/Globulin Ratio 0.5L 08/24/21 08:56: Bedside Glucose (Misc Panel) 111 08/24/21 12:39: Bedside Glucose (Misc Panel) 195H 08/24/21 16:51: Bedside Glucose (Misc Panel) 103 CBC/BMP Laboratory Tests 08/23/21 18:55 08/24/21 06:14 08/24/21 06:15 08/24/21 13:33 FSBS Laboratory Tests Test 08/23/21 20:45 08/24/21 08:56 08/24/21 12:39 08/24/21 16:51 Range/Units Bedside Glucose (Misc Panel) 124 111 195 103 80-115 MG/DL Current Medications Current Medications Medications (Trade) Dose Ordered Sig/Alicia Route PRN Reason Start Time Stop Time Status Last Admin Dose Admin Allopurinol (Zyloprim) 100 mg QHS PO 08/10/21 21:00 08/23/21 21:00 Ascorbic Acid (Vitamin C) 250 mg QHS PO 08/10/21 21:00 08/23/21 21:00 Calcitonin [place] (Miacalcin (Fortical)) 1 sprays DAILY NA 08/16/21 17:00 08/19/21 09:00 DC 08/18/21 10:30 Ceftriaxone Sodium 2 gm/ Dextrose 50 ml @ 100 mls/hr Q24H IV 08/10/21 17:00 08/11/21 06:51 DC 08/10/21 17:00 Ceftriaxone Sodium 2 gm/ Dextrose 50 ml @ 100 mls/hr Q24H IV 08/18/21 14:00 08/23/21 23:59 DC 08/23/21 16:01 Ciprofloxacin (Cipro) 250 mg DAILY@06 PO 08/18/21 06:00 08/18/21 13:38 DC Ciprofloxacin (Cipro) 250 mg DAILY@0600 PO 08/24/21 06:00 08/24/21 06:30 Ciprofloxacin (Cipro) 500 mg BID@06,18 PO 08/13/21 07:20 08/13/21 07:49 DC Ciprofloxacin (Cipro) 500 mg DAILY@0600 PO 08/14/21 06:00 08/15/21 07:18 DC 08/15/21 05:43 Dextrose (Dextrose 50%) 25 ml ASDIRECTED PRN IV SEE LABEL COMMENTS 08/10/21 16:20 Furosemide 250 mg/ Dextrose 250 ml @ 10 mls/hr Q24H IV 08/15/21 22:30 08/19/21 13:20 DC 08/18/21 21:35 Furosemide 250 mg/ Dextrose 250 ml @ 10 mls/hr Q24H IV 08/19/21 13:20 08/19/21 13:22 DC Furosemide 250 mg/ Dextrose 250 ml @ 10 mls/hr Q24H IV 08/19/21 21:00 08/24/21 17:00 DC 08/23/21 17:19 Gabapentin (Neurontin) 100 mg BID PO 08/10/21 21:00 Hold 08/22/21 10:21 Glucagon (Glucagon) 1 mg ASDIRECTED PRN SC SEE LABEL COMMENTS 08/10/21 16:20 Glucose (Glucose) 16 GM ASDIRECTED PRN PO SEE LABEL COMMENTS 08/10/21 16:20 Heparin Sodium (Heparin (Flush)) 200 units ASDIRECTED PRN IV SEE LABEL COMMENTS 08/19/21 18:50 08/23/21 18:57 Heparin Sodium (Heparin (Flush)) 200 units PICC IV 08/20/21 06:00 08/24/21 18:03 Home Med (Home Med List Complete!) ASDIRECTED XX 08/10/21 17:35 08/10/21 17:37 DC Hydralazine HCl (Apresoline) 10 mg Q1H PRN IV htn 08/22/21 15:55 Insulin Detemir (Levemir Insulin) 10 units BID SC 08/23/21 09:00 08/24/21 08:57 Insulin Detemir (Levemir Insulin) 10 units BID SC 08/17/21 21:00 08/18/21 15:22 DC Insulin Detemir (Levemir Insulin) 14 units BID SC 08/18/21 21:00 08/23/21 09:11 DC 08/22/21 20:28 Insulin Human Lispro (HumaLOG INSULIN) SEE PROTOCOL TABLE AC SC 08/10/21 17:30 08/24/21 12:53 Insulin Human Lispro (HumaLOG INSULIN) SEE PROTOCOL TABLE QHS SC 08/10/21 21:00 08/15/21 21:42 Lactulose (Cephulac) 30 ml QID PO 08/11/21 21:00 08/14/21 18:27 DC 08/14/21 17:59 Lactulose (Cephulac) 40 ml QID PO 08/14/21 21:00 08/24/21 18:02 Levothyroxine Sodium (Synthroid) 25 mcg DAILY@0600 PO 08/11/21 06:00 08/24/21 06:29 Levothyroxine Sodium (Synthroid) 25 mcg QHS PO 08/10/21 21:00 08/10/21 22:25 DC Magnesium Oxide (Mag-Ox) 400 mg TID PO 08/10/21 21:00 08/24/21 18:01 Midodrine (Proamatine) 15 mg TID@0900,1200,1600 PO 08/11/21 09:00 08/24/21 18:00 Octreotide Acetate 1200 mcg/ Sodium Chloride 240 ml @ 10 mls/hr Q24H IV 08/18/21 16:00 08/21/21 09:00 DC 08/20/21 14:27 Omeprazole (PriLOSEC) 40 mg QHS PO 08/10/21 21:00 08/18/21 15:26 DC 08/17/21 20:35 Ondansetron HCl (ZOFRAN INJection) 4 mg Q4HP PRN IV NAUSEA OR VOMITING 08/19/21 18:10 08/19/21 20:10 DC Oxycodone HCl (Roxicodone, Oxyir) 5 mg Q4HP PRN PO PAIN LEVEL 5-10 08/14/21 09:50 08/14/21 12:51 DC 08/14/21 12:31 Oxycodone HCl (Roxicodone, Oxyir) 5 mg Q6HP PRN PO PAIN LEVEL 5-10 08/14/21 18:00 08/24/21 12:52 Pantoprazole Sodium (Protonix) 40 mg Q12H IV 08/18/21 21:00 08/24/21 08:58 Promethazine HCl (PHENERGAN INJection) 12.5 mg Q6HP PRN IV NAUSEA 08/15/21 23:55 08/16/21 00:03 Rifaximin (Xifaxan) 550 mg BID PO 08/10/21 21:00 08/24/21 08:58 Sodium Chloride 1,000 ml @ 120 mls/hr Q8H20M IV 08/11/21 14:30 08/11/21 22:49 DC 08/11/21 14:57 Sodium Chloride (Saline Lock Flush) 10 ml ASDIRECTED PRN IV SEE LABEL COMMENTS 08/19/21 18:50 08/23/21 18:57 Sodium Chloride (Saline Lock Flush) 10 ml PICC IV 08/20/21 06:00 08/24/21 18:03 Spironolactone (Aldactone) 50 mg QHS PO 08/13/21 21:00 08/23/21 23:20 Sucralfate (Carafate) 1 gm ACHS PO 08/10/21 21:00 08/24/21 18:02 Tizanidine HCl (Zanaflex) 4 mg TID PRN PO SPASMS 08/10/21 18:55 08/24/21 12:51 Torsemide (Demadex) 20 mg BID@0900,1700 PO 08/11/21 09:00 08/16/21 07:10 DC 08/14/21 17:59 Torsemide (Demadex) 50 mg BID@09,17 PO 08/24/21 17:00 08/24/21 18:01 Vitamin D (Vitamin D) 1,000 units QHS PO 08/10/21 21:00 08/23/21 21:00 Allergies Coded Allergies: No Known Drug Allergies (Verified Allergy, Unknown, 01/19/21) Assessment/Plan Date Seen The patient was seen on 08/24/21 in AM. Plan / VTE VTE Prophylaxis Ordered?: No Plan Orders past 48 Hours Orders Fingerstick Blood Sugar (08/22/21 20:27) Electrocardiogram Adult (08/23/21 07:00) Fingerstick Blood Sugar (08/23/21 06:15) Kcl 10meq/100ml Swi (Krun) (Kcl 10meq/10 (08/23/21 08:00) Potassium Chloride Liquid (Potassium Chl (08/23/21 08:00) Weight In Kg. (08/23/21 07:33) Intake & Output: Qmp Order (08/23/21 07:33) Transfuse Fresh Frozen Plasma (08/23/21 07:33) Frozen Plasma 24 (08/23/21 07:33) Insulin Detemir (Levemir Insulin) (08/23/21 09:00) * Nursing Order * (08/23/21 09:15) Consistent Carbohydrates (08/23/21 Breakfast) Fingerstick Blood Sugar (08/23/21 11:59) Ciprofloxacin (Cipro) (08/24/21 06:00) Hemoglobin & Hematocrit (08/23/21 19:00) Hemoglobin & Hematocrit (08/24/21 13:00) Hemoglobin & Hematocrit (08/24/21 19:00) Hemoglobin & Hematocrit (08/25/21 01:00) Hemoglobin & Hematocrit (08/25/21 13:00) Fingerstick Blood Sugar (08/23/21 16:44) Transfuse Packed Cells (08/23/21 20:07) Packed Cells (08/23/21 20:07) Type & Screen (08/23/21 20:07) Fingerstick Blood Sugar (08/23/21 20:45) Immature Platelet Fraction (08/24/21 06:14) Fingerstick Blood Sugar (08/24/21 08:56) Torsemide (Demadex) (08/24/21 17:00) Fingerstick Blood Sugar (08/24/21 12:39) Basic Metabolic Profile (08/25/21 06:00) Complete Blood Count (08/25/21 06:00) Phosphorous Level (08/25/21 06:00) Magnesium Level (08/25/21 06:00) Fingerstick Blood Sugar (08/24/21 16:51) Potassium Chloride (Micro-K Extencaps) (08/24/21 18:15) Plan Text 1. Acute Renal Failure on CKD3: She remains on an I.V. Lasix drip.Cr is stable.Continue Midodrine. PRBC given yesterday which helped as well. 2. Hepatic encephalopathy: Ammonia is better. She is on lactulose. 3. Cirrhosis with recurrent ascites:2.7L of fluid of removed 4 days ago. Stop IV lasix. start oral torsemide now. 4. Upper GI Bleed: S/p EGD with laser+ clipping of multiple bleeding sites. 1 unit PRBC yesterday and one ordered today. 5. HFpEF, Anasarca: Responding to Lasix drip, Switch to oral diuretic now. 6.Nutrition: Started taking PO diet now. WILFRID GUPTA MD Aug 24, 2021 18:53
[2021-08-24] MEDS: VITAMIN D 1,000 INTERNATIONAL UNITS TABLET PO SCH (22:11)
[2021-08-24] MEDS: SPIRONOLACTONE 50 MG TAB PO SCH (22:11)
[2021-08-24] MEDS: allopurinoL 100 MG TAB PO SCH (22:12)
[2021-08-24] MEDS: ASCORBIC ACID 250 MG TAB PO SCH (22:13)
[2021-08-24] MEDS: OCTREOTIDE ACETATE 100MCG/ML VIAL **IV ADMINISTRATION ONLY SC SCH (22:19)
[2021-08-25] VITALS (7 sets, daily range): BP systolic 87–110; BP diastolic 47–57
[2021-08-25] MEDS: OCTREOTIDE ACETATE 100MCG/ML VIAL **IV ADMINISTRATION ONLY SC SCH ×3 (06:13→22:19)
[2021-08-25] MEDS: CIPROFLOXACIN 250MG TAB PO SCH (06:14)
[2021-08-25] MEDS: LEVOTHYROXINE 25MCG TABLET (0.025MG) PO SCH (06:14)
[2021-08-25] MEDS: SODIUM CHLORIDE 0.9% INJ 10 ML SYR IV SCH ×2 (06:14→18:21)
[2021-08-25 06:40] LABS: HEMATOCRIT 27.6 % (36.0-47.0); HEMOGLOBIN 8.7 g/dl (12.0-15.5); MEAN CORPUSCULAR HEMOGLOBIN 30.5 pg (27.0-33.0); MEAN CORPUSCULAR HGB CONC 31.5 g/dl (32.0-36.5); MEAN CORPUSCULAR VOLUME 96.8 fl (80.0-96.0); PLATELET COUNT, AUTOMATED 96 10^3/uL (150-450); RED BLOOD COUNT 2.85 10^6/uL (4.00-5.40); WHITE BLOOD COUNT 6.1 10^3/uL (4.0-10.0)
[2021-08-25 07:09] LABS: CALCIUM LEVEL 7.9 MG/DL (8.8-10.2); CREATININE FOR GFR 1.71 MG/DL (0.55-1.30); MAGNESIUM LEVEL 1.7 MG/DL (1.8-2.4); PHOSPHORUS LEVEL 2.3 MG/DL (2.5-4.9); POTASSIUM SERUM 4.4 MEQ/L (3.5-5.1)
[2021-08-25] MEDS: LACTULOSE 20 GM/30 ML SYRUP UD PO SCH ×4 (09:00→22:14)
[2021-08-25] MEDS: MAGNESIUM OXIDE 400MG TAB (MAG-OX) PO SCH ×3 (09:00→22:15)
[2021-08-25] MEDS: MIDODRINE 5 MG TAB PO SCH ×3 (09:01→17:03)
[2021-08-25] MEDS: PANTOPRAZOLE 40MG VIAL (C9113 PER 1) IV SCH ×2 (09:01→22:18)
[2021-08-25] MEDS: SUCRALFATE 1 GM TAB PO SCH ×4 (09:01→22:16)
[2021-08-25] MEDS: TORSEMIDE (DEMADEX) 50 MG PER 1/2 TAB PO SCH ×2 (09:01→17:03)
[2021-08-25] MEDS: rifAXIMin 550 MG TAB (XIFAXAN) PO SCH ×2 (09:01→22:16)
[2021-08-25] MEDS: LEVEMIR (INSULIN DETEMIR) 1 UNITS/0.01ML SC SCH (09:02)
[2021-08-25] MEDS: HumaLOG INSULIN (NovoLOG) PER UNIT SC SCH ×4 (09:02→22:22)
[2021-08-25] MEDS: oxyCODONE 5MG TAB PO PRN (10:16)
--- NOTE | 2021-08-25 11:32 | IPNPDOC ---
Subjective Date Seen The patient was seen on 08/25/21. Subjective Chief Complaint/HPI Patient was seen and examined at bedside this morning. She had no new complaints, and reported feeling "great". On 08/24 she had episode of bloody bowel movements, but had none overnight into this morning. Other systems 10 point review of system was negative except for what is noted in the HPI Objective Physical Examination Other physical findings General: Lying in bed, no acute distress Head/Neck/Throat: Trachea midline, mucous membranes moist Eyes: Sclera anicteric, no erythema or discharge appreciated bilaterally Thorax: Normal respiratory effort on room air, bibasilar crackles appreciated Cardiovascular: Irregularly irregular, normal S1, S2, 2+ lower extremity edema Abdomen: Bowel sounds present, soft/nontender/nondistended Genitourinary: No CVA tenderness, Ribera draining yellow urine. Musculoskeletal: Moving all extremities, no edema Skin: Warm, dry, generalized pallor Neurologic: AAOx3, speech fluent and goal-directed, no focal deficits, grossly intact Assessment /Plan Assessment #Hepatic encephalopathy -Resolved. Continue with rifaximin and lactulose titrating to 3 bowel movements per day #GI bleed -An upper endoscopy done showed Graves' disease with bleeding, continue with Protonix. Octreotide requested by gi services. -On 08/24 she had an episode of bloody bowel movements, GI following and plan for colonoscopy. -Continue to try H&H. Transfuse if hemoglobin less than 7. #Acute kidney failure -Secondary to hepatorenal syndrome. Patient required intermittent dialysis. She is now has acceptable urine output therefore further dialysis sessions are on hold as per nephrology team. -d/c ribera and trial of voiding. #Diastolic CHF -Continue with diuretics #Cirrhosis -Status post paracentesis x2. Considering she is high risk for SBP she was started empirically on ciprofloxacin. #Electrolyte abnormality -Hyperkalemia resolved #Type 2 diabetes mellitus -Detemir twice daily, insulin sliding scale, Accu-Cheks, hypoglycemic protocol #Acute L1 compression fracture -She received calcitonin for a total of 3 days -Orthopedic team recommended physical therapy #Hypothyroidism -Continue with levothyroxine #DVT prophylax -Sequential Update: Pt reported in the evening of 08/25 at approx 1800 she woke up with rt hand weakness. Upon exam there was right wrist drop which she was able to correct when asked to do but not entirely. Stat ct-scan ordered. Holding off on aspirin due to her gi bleed, will start statin therapy. Low suspicion for stroke, likely radial nerve palsy from position. Will continue to monitor, OT on board. Consider MRI in the am. Plan/VTE VTE Prophylaxis Ordered?: No VS, I&O, 24H, Fishbone Vital Signs/I&O Vital Signs Date Time Temp Pulse Resp B/P (MAP) Pulse Ox O2 Delivery O2 Flow Rate FiO2 08/25/21 10:16 18 08/25/21 08:32 98.3 56 88/52 (64) 94 Room Air 08/19/21 15:00 96 I&O- Last 24 Hours up to 6 AM 08/25/21 06:00 Intake Total 1710 ml Output Total 2150 ml Balance -440 ml Laboratory Data 24H LABS Laboratory Tests 2 08/24/21 12:39: Bedside Glucose (Misc Panel) 195H 08/24/21 16:51: Bedside Glucose (Misc Panel) 103 08/24/21 20:41: Bedside Glucose (Misc Panel) 142H 08/25/21 06:03: Nucleated Red Blood Cells % (auto) 0.0, Anion Gap 6L, Glomerular Filtration Rate 32.0L, Calcium Level 7.9L, Phosphorus Level 2.3L, Magnesium Level 1.7L CBC/BMP Laboratory Tests 08/24/21 13:33 08/24/21 18:16 08/25/21 06:03 Microbiology Microbiology 08/20/21 Fungal Smear, Received Pending 08/20/21 Fungal Culture, Received Pending 08/20/21 Gram Stain - Final, Complete 08/20/21 Body Fluid Culture - Final, Complete Bacillus Sp., Not Anthracis 08/20/21 Anaerobic Culture - Final, Complete 08/19/21 Blood Culture - Final, Complete NO GROWTH AFTER 5 DAYS 08/19/21 Blood Culture - Final, Complete NO GROWTH AFTER 5 DAYS FRANCES DEVRIES M.D. Aug 25, 2021 11:31
--- NOTE | 2021-08-25 11:33 | IPNPDOC ---
Subjective Date Seen The patient was seen on 08/24/21. Subjective Chief Complaint/HPI Patient was seen and examined at bedside this morning. She was awake, alert, oriented x3 reported feeling well and had no new complaints. She denied headaches, chest pain, abdominal pain, shortness of breath, palpitations, nausea, vomiting, problem with urination and bowel movements. Objective Physical Examination Other physical findings General: Lying in bed, no acute distress Head/Neck/Throat: Trachea midline, mucous membranes moist Eyes: Sclera anicteric, no erythema or discharge appreciated bilaterally Thorax: Normal respiratory effort on room air, bibasilar crackles appreciated Cardiovascular: Irregularly irregular, normal S1, S2, 2+ lower extremity edema Abdomen: Bowel sounds present, soft/nontender/nondistended Genitourinary: No CVA tenderness, Teixeira draining yellow urine Musculoskeletal: Moving all extremities, no edema Skin: Warm, dry, generalized pallor Neurologic: AAOx3, speech fluent and goal-directed, no focal deficits, grossly intact Assessment /Plan Assessment #Hepatic encephalopathy -Resolved. Continue with rifaximin and lactulose titrating to 3 bowel movements per day #GI bleed -An upper endoscopy done showed Graves' disease with bleeding, continue with Protonix -This afternoon she had an episode of bloody bowel movements, GI following and plan for colonoscopy. Continue to try H&H. Transfuse if hemoglobin less than 7. #Acute kidney failure Secondary to hepatorenal syndrome. Patient required intermittent dialysis. She is now has acceptable urine output therefore further dialysis sessions are on hold as per nephrology team. #Diastolic CHF -Continue with diuretics #Cirrhosis -Status post paracentesis x2. Considering she is high risk for SBP she was started empirically on ciprofloxacin. #Electrolyte abnormality -Hyperkalemia resolved #Type 2 diabetes mellitus -Detemir twice daily, insulin sliding scale, Accu-Cheks, hypoglycemic protocol #Acute L1 compression fracture -She received calcitonin for a total of 3 days -Orthopedic team recommended physical therapy #Hypothyroidism -Continue with levothyroxine #DVT prophylax -Sequential Plan/VTE VTE Prophylaxis Ordered?: No VS, I&O, 24H, Fishbone Vital Signs/I&O Vital Signs Date Time Temp Pulse Resp B/P (MAP) Pulse Ox O2 Delivery O2 Flow Rate FiO2 08/24/21 13:22 18 08/24/21 12:00 97.4 74 115/54 (74) 98 Room Air 08/19/21 15:00 96 I&O- Last 24 Hours up to 6 AM 08/24/21 05:59 Intake Total 3521 ml Output Total 2000 ml Balance 1521 ml Laboratory Data 24H LABS Laboratory Tests 2 08/23/21 16:44: Bedside Glucose (Misc Panel) 201H 08/23/21 20:45: Bedside Glucose (Misc Panel) 124H 08/24/21 06:14: Immature Granulocyte % (Auto) 0.3, Neutrophils (%) (Auto) 63.7, Lymphocytes (%) (Auto) 18.5L, Monocytes (%) (Auto) 11.9H, Eosinophils (%) (Auto) 4.6H, Basophils (%) (Auto) 1.0, Neutrophils # (Auto) 3.7, Lymphocytes # (Auto) 1.1L, Monocytes # (Auto) 0.7, Eosinophils # (Auto) 0.3, Basophils # (Auto) 0.1, Nucleated Red Blood Cells % (auto) 0.0, Immature Platelet Fraction 3.5 08/24/21 06:15: Anion Gap 6L, Glomerular Filtration Rate 32.9L, Calcium Level 7.8L, Magnesium Level 1.8, Total Bilirubin 1.1H, Aspartate Amino Transf (AST/SGOT) 30, Alanine Aminotransferase (ALT/SGPT) 11L, Alkaline Phosphatase 138H, Total Protein 4.8L, Albumin 1.6L, Albumin/Globulin Ratio 0.5L 08/24/21 08:56: Bedside Glucose (Misc Panel) 111 08/24/21 12:39: Bedside Glucose (Misc Panel) 195H CBC/BMP Laboratory Tests 08/23/21 18:55 08/24/21 06:14 08/24/21 06:15 08/24/21 13:33 Microbiology Microbiology 08/20/21 Fungal Smear, Received Pending 08/20/21 Fungal Culture, Received Pending 08/20/21 Gram Stain - Final, Complete 08/20/21 Body Fluid Culture - Final, Complete Bacillus Sp., Not Anthracis 08/20/21 Anaerobic Culture - Final, Complete 08/19/21 Blood Culture - Final, Complete NO GROWTH AFTER 5 DAYS 08/19/21 Blood Culture - Final, Complete NO GROWTH AFTER 5 DAYS FRANCES DERVIES M.D. Aug 24, 2021 14:26
[2021-08-25] MEDS: tiZANidine 4 MG TAB PO PRN (11:38)
[2021-08-25 14:12] LABS: HEMATOCRIT 30.2 % (36.0-47.0); HEMOGLOBIN 9.7 g/dl (12.0-15.5)
[2021-08-25] MEDS: PROMETHAZINE INJ 25 MG/ML VIAL (J2550) IV PRN (18:20)
[2021-08-25] MEDS ORDERED: ATORVASTATIN 20 MG TAB PO ONE (18:45)
--- NOTE | 2021-08-25 19:01 | REPVR ---
PROCEDURE INFORMATION: Exam: CT Head Without Contrast Exam date and time: 08/25/2021 6:05 PM Age: 66 years old Clinical indication: Weakness, extremity; Right; Additional info: New right hand weakness TECHNIQUE: Imaging protocol: Computed tomography of the head without contrast. Radiation optimization: All CT scans at this facility use at least one of these dose optimization techniques: automated exposure control; mA and/or kV adjustment per patient size (includes targeted exams where dose is matched to clinical indication); or iterative reconstruction. COMPARISON: CT Head without contrast 08/16/2021 1:41 PM FINDINGS: Brain: There is no evidence of intracranial bleed. 6 mm oval area of low density at the right external capsule region probably chronic ischemic change. Cerebral ventricles: Normal ventricles. Paranasal sinuses: Clear paranasal sinuses. Mastoid air cells: Clear mastoid air cells. Bones/joints: No evidence of acute fracture. Soft tissues: Unremarkable. IMPRESSION: Chronic ischemic changes. Electronically signed by: Law Zelaya On 08/25/2021 19:01:02 PM
--- NOTE | 2021-08-25 21:29 | IPNPDOC ---
Subjective CC/HPI The patient is a 66-year-old female admitted with a reason for visit of Acute On Chronic Kidney Injury, Hyperammonemia. Events since last encounter Pt is much more awake and alert. She was sitting in sofa and was able to com municate well. she started eating her meals. IV lasix was stopped and she has been started on torsemide. Renal function is stable with Cr 1.6-->1.7 now.UOP 2200/450 now. She reports mild edema of legs. General: Reports: Fatigue; Denies: Chills, Night Sweats Constitutional: Denies: Chills, Fever Eyes: Denies: Pain, Vision change ENT: Denies: Head Aches, Ear Pain Skin: Denies: Rash, Lesions Pulmonary: Denies: Dyspnea, Cough Cardiovascular: Denies: Chest Pain, Palpitations Gastrointestinal: Denies: Nausea, Vomiting Genitourinary: Denies: Dysuria Hematologic: Denies: Bruising Musculoskeletal: Denies: Neck Pain, Back Pain Neurological: Reports: Weakness Psych: Reports: Mood Normal Objective Physical Examination General Exam: Alert, Other (Awake and oriented x 2) EYE EXAM: PERRLA, EOMI ENT EXAM: Atraumatic, Mucous membr. moist/pink, Other ENT (Temporal wasting.) Neck Exam: Supple; No: JVD Chest Exam: Clear to auscultation, Normal air movement; No: Rales Heart Exam: Rate Normal, Normal S1, Normal S2; No: Murmurs, Rubs ABDOMEN EXAM: Normal bowel sounds, Soft; No: Tenderness Female Exam: No: Nl Ext Genitalia (Teixeira catheter noted) Extremity Exam: Edema (1+ edema of legs noted); No: Clubbing, Cyanosis Skin Exam: Nl turgor and temperature; No: Rash Neuro Exam: Normal Speech, Strength at 5/5 X4 ext Psych Exam: Mental status NL, Mood NL; No: Oriented x 3 (x2) Vital Signs/I&O Vital Signs Date Time Temp Pulse Resp B/P (MAP) Pulse Ox O2 Delivery O2 Flow Rate FiO2 08/25/21 21:18 96.9 57 16 97/49 (65) 96 Room Air 08/19/21 15:00 96 I&O- Last 24 Hours up to 6 AM 08/25/21 06:00 Intake Total 1710 ml Output Total 2150 ml Balance -440 ml Laboratory Data Labs 24H Laboratory Tests 2 08/25/21 06:03: Nucleated Red Blood Cells % (auto) 0.0, Anion Gap 6L, Glomerular Filtration Rate 32.0L, Calcium Level 7.9L, Phosphorus Level 2.3L, Magnesium Level 1.7L 08/25/21 11:42: Bedside Glucose (Misc Panel) 220H 08/25/21 17:10: Bedside Glucose (Misc Panel) 89 CBC/BMP Laboratory Tests 08/25/21 06:03 08/25/21 13:41 FSBS Laboratory Tests Test 08/25/21 11:42 08/25/21 17:10 Range/Units Bedside Glucose (Misc Panel) 220 89 80-115 MG/DL Current Medications Current Medications Medications (Trade) Dose Ordered Sig/Alicia Route PRN Reason Start Time Stop Time Status Last Admin Dose Admin Allopurinol (Zyloprim) 100 mg QHS PO 08/10/21 21:00 08/24/21 22:12 Ascorbic Acid (Vitamin C) 250 mg QHS PO 08/10/21 21:00 08/24/21 22:13 Atorvastatin Calcium (Lipitor) 40 mg QHS PO 08/25/21 21:00 Calcitonin [place] (Miacalcin (Fortical)) 1 sprays DAILY NA 08/16/21 17:00 08/19/21 09:00 DC 08/18/21 10:30 Ceftriaxone Sodium 2 gm/ Dextrose 50 ml @ 100 mls/hr Q24H IV 08/10/21 17:00 08/11/21 06:51 DC 08/10/21 17:00 Ceftriaxone Sodium 2 gm/ Dextrose 50 ml @ 100 mls/hr Q24H IV 08/18/21 14:00 08/23/21 23:59 DC 08/23/21 16:01 Ciprofloxacin (Cipro) 250 mg DAILY@06 PO 08/18/21 06:00 08/18/21 13:38 DC Ciprofloxacin (Cipro) 250 mg DAILY@0600 PO 08/24/21 06:00 08/25/21 06:14 Ciprofloxacin (Cipro) 500 mg BID@06,18 PO 08/13/21 07:20 08/13/21 07:49 DC Ciprofloxacin (Cipro) 500 mg DAILY@0600 PO 08/14/21 06:00 08/15/21 07:18 DC 08/15/21 05:43 Dextrose (Dextrose 50%) 25 ml ASDIRECTED PRN IV SEE LABEL COMMENTS 08/10/21 16:20 Furosemide 250 mg/ Dextrose 250 ml @ 10 mls/hr Q24H IV 08/15/21 22:30 08/19/21 13:20 DC 08/18/21 21:35 Furosemide 250 mg/ Dextrose 250 ml @ 10 mls/hr Q24H IV 08/19/21 13:20 08/19/21 13:22 DC Furosemide 250 mg/ Dextrose 250 ml @ 10 mls/hr Q24H IV 08/19/21 21:00 08/24/21 17:00 DC 08/23/21 17:19 Gabapentin (Neurontin) 100 mg BID PO 08/10/21 21:00 Hold 08/22/21 10:21 Glucagon (Glucagon) 1 mg ASDIRECTED PRN SC SEE LABEL COMMENTS 08/10/21 16:20 Glucose (Glucose) 16 GM ASDIRECTED PRN PO SEE LABEL COMMENTS 08/10/21 16:20 Heparin Sodium (Heparin (Flush)) 200 units ASDIRECTED PRN IV SEE LABEL COMMENTS 08/19/21 18:50 08/23/21 18:57 Heparin Sodium (Heparin (Flush)) 200 units PICC IV 08/20/21 06:00 08/25/21 18:21 Home Med (Home Med List Complete!) ASDIRECTED XX 08/10/21 17:35 08/10/21 17:37 DC Hydralazine HCl (Apresoline) 10 mg Q1H PRN IV htn 08/22/21 15:55 08/24/21 18:45 DC Insulin Detemir (Levemir Insulin) 10 units BID SC 08/23/21 09:00 08/24/21 18:45 DC 08/24/21 08:57 Insulin Detemir (Levemir Insulin) 10 units BID SC 08/17/21 21:00 08/18/21 15:22 DC Insulin Detemir (Levemir Insulin) 10 units DAILY SC 08/25/21 09:00 08/25/21 09:02 Insulin Detemir (Levemir Insulin) 14 units BID SC 08/18/21 21:00 08/23/21 09:11 DC 08/22/21 20:28 Insulin Human Lispro (HumaLOG INSULIN) SEE PROTOCOL TABLE AC SC 08/10/21 17:30 08/25/21 13:35 Insulin Human Lispro (HumaLOG INSULIN) SEE PROTOCOL TABLE QHS SC 08/10/21 21:00 08/15/21 21:42 Lactulose (Cephulac) 30 ml QID PO 08/11/21 21:00 08/14/21 18:27 DC 08/14/21 17:59 Lactulose (Cephulac) 40 ml QID PO 08/14/21 21:00 08/25/21 13:34 Levothyroxine Sodium (Synthroid) 25 mcg DAILY@0600 PO 08/11/21 06:00 08/25/21 06:14 Levothyroxine Sodium (Synthroid) 25 mcg QHS PO 08/10/21 21:00 08/10/21 22:25 DC Magnesium Oxide (Mag-Ox) 400 mg TID PO 08/10/21 21:00 08/25/21 17:13 Midodrine (Proamatine) 15 mg TID@0900,1200,1600 PO 08/11/21 09:00 08/25/21 17:03 Octreotide Acetate 1200 mcg/ Sodium Chloride 240 ml @ 10 mls/hr Q24H IV 08/18/21 16:00 08/21/21 09:00 DC 08/20/21 14:27 Octreotide Acetate (SandoSTATIN) 100 mcg Q8H SC 08/24/21 22:00 08/25/21 13:35 Omeprazole (PriLOSEC) 40 mg QHS PO 08/10/21 21:00 08/18/21 15:26 DC 08/17/21 20:35 Ondansetron HCl (ZOFRAN INJection) 4 mg Q4HP PRN IV NAUSEA OR VOMITING 08/19/21 18:10 08/19/21 20:10 DC Oxycodone HCl (Roxicodone, Oxyir) 5 mg Q4HP PRN PO PAIN LEVEL 5-10 08/14/21 09:50 08/14/21 12:51 DC 08/14/21 12:31 Oxycodone HCl (Roxicodone, Oxyir) 5 mg Q6HP PRN PO PAIN LEVEL 5-10 08/14/21 18:00 08/25/21 10:16 Pantoprazole Sodium (Protonix) 40 mg Q12H IV 08/18/21 21:00 08/25/21 09:01 Promethazine HCl (PHENERGAN INJection) 12.5 mg Q6HP PRN IV NAUSEA 08/15/21 23:55 08/25/21 18:20 Rifaximin (Xifaxan) 550 mg BID PO 08/10/21 21:00 08/25/21 09:01 Sodium Chloride 1,000 ml @ 120 mls/hr Q8H20M IV 08/11/21 14:30 08/11/21 22:49 DC 08/11/21 14:57 Sodium Chloride (Saline Lock Flush) 10 ml ASDIRECTED PRN IV SEE LABEL COMMENTS 08/19/21 18:50 08/23/21 18:57 Sodium Chloride (Saline Lock Flush) 10 ml PICC IV 08/20/21 06:00 08/25/21 18:21 Spironolactone (Aldactone) 50 mg QHS PO 08/13/21 21:00 08/24/21 22:11 Sucralfate (Carafate) 1 gm ACHS PO 08/10/21 21:00 08/25/21 11:38 Tizanidine HCl (Zanaflex) 4 mg TID PRN PO SPASMS 08/10/21 18:55 08/25/21 11:38 Torsemide (Demadex) 20 mg BID@0900,1700 PO 08/11/21 09:00 08/16/21 07:10 DC 08/14/21 17:59 Torsemide (Demadex) 50 mg BID@09,17 PO 08/24/21 17:00 08/25/21 17:03 Vitamin D (Vitamin D) 1,000 units QHS PO 08/10/21 21:00 08/24/21 22:11 Allergies Coded Allergies: No Known Drug Allergies (Verified Allergy, Unknown, 01/19/21) Assessment/Plan Date Seen The patient was seen on 08/25/21 in AM during rounds. Plan / VTE VTE Prophylaxis Ordered?: No Plan Orders past 48 Hours Orders Fingerstick Blood Sugar (08/24/21 08:56) Torsemide (Demadex) (08/24/21 17:00) Fingerstick Blood Sugar (08/24/21 12:39) Basic Metabolic Profile (08/25/21 06:00) Complete Blood Count (08/25/21 06:00) Phosphorous Level (08/25/21 06:00) Magnesium Level (08/25/21 06:00) Fingerstick Blood Sugar (08/24/21 16:51) Potassium Chloride (Micro-K Extencaps) (08/24/21 18:15) Octreotide Acetate (Sandostatin) (08/24/21 22:00) Insulin Detemir (Levemir Insulin) (08/25/21 09:00) Fingerstick Blood Sugar (08/24/21 20:41) * Nursing Order * (08/25/21 05:26) Discontinue Urinary Catheter (08/25/21 07:45) Transfer (In House) (08/25/21 07:45) Remote Telemetry 48 Hr Order (08/25/21 07:45) Fingerstick Blood Sugar (08/25/21 11:42) Ct Head Without Contrast (08/25/21 17:40) Fingerstick Blood Sugar (08/25/21 17:10) Atorvastatin (Lipitor) (08/25/21 18:45) Consistent Carbohydrates (08/25/21 Dinner) Atorvastatin (Lipitor) (08/25/21 21:00) Npo Diet For Test/Procedure (08/26/21 Breakfast) Mri-Brain Without Contrast (08/26/21 06:00) Mri-Spine,Cervical Without Con (08/26/21 06:00) Plan Text 1. Acute Renal Failure on CKD3: Last HD on 08/18/21.Continue Midodrine. Diuretics changed to PO. DC tunneled HD catheter. Request vascular help. 2. Hepatic encephalopathy: Ammonia is better. She is on lactulose. 3. Cirrhosis with recurrent ascites:2.7L of fluid of removed 5 days ago. S/P IV lasix drip. Continue oral torsemide now. 4. Upper GI Bleed: S/p EGD with laser+ clipping of multiple bleeding sites. transfuse PRN for Hb<8. 5. HFpEF, Anasarca: Responded to Lasix drip, Switched to oral diuretic today. continue for now due to persistent edema. 6.Nutrition: Started taking PO diet now. WILFRID GUPTA MD Aug 25, 2021 21:29
[2021-08-25] MEDS: SPIRONOLACTONE 50 MG TAB PO SCH (22:15)
[2021-08-25] MEDS: allopurinoL 100 MG TAB PO SCH (22:16)
[2021-08-25] MEDS: ASCORBIC ACID 250 MG TAB PO SCH (22:16)
[2021-08-25] MEDS: VITAMIN D 1,000 INTERNATIONAL UNITS TABLET PO SCH (22:16)
[2021-08-25] MEDS: ATORVASTATIN 20 MG TAB PO SCH (22:16)
[2021-08-26] VITALS (13 sets, daily range): BP systolic 78–125; BP diastolic 38–59
[2021-08-26] MEDS: OCTREOTIDE ACETATE 100MCG/ML VIAL **IV ADMINISTRATION ONLY SC SCH ×3 (05:08→21:05)
[2021-08-26] MEDS: LEVOTHYROXINE 25MCG TABLET (0.025MG) PO SCH (05:08)
[2021-08-26] MEDS: CIPROFLOXACIN 250MG TAB PO SCH (05:08)
[2021-08-26] MEDS: SODIUM CHLORIDE 0.9% INJ 10 ML SYR IV SCH ×2 (05:09→18:26)
[2021-08-26 05:29] LABS: BASO # 0.1 10^3/uL (0.0-0.2); BASO % 0.7 % (0.0-1.0); EOS # 0.3 10^3/uL (0.0-0.5); EOS % 4.1 % (0.0-3.0); HEMOGLOBIN 9.1 g/dl (12.0-15.5); LYMPH # 1.4 10^3/uL (1.5-5.0); LYMPH % 18.8 % (24.0-44.0); MEAN CORPUSCULAR HEMOGLOBIN 31.3 pg (27.0-33.0); MEAN CORPUSCULAR HGB CONC 32.5 g/dl (32.0-36.5); MEAN CORPUSCULAR VOLUME 96.2 fl (80.0-96.0); MONO # 0.9 10^3/uL (0.0-0.8); MONO % 12.1 % (2.0-8.0); NEUTROPHILS # 4.8 10^3/uL (1.5-8.5); NEUTROPHILS % 63.9 % (36.0-66.0); PLATELET COUNT, AUTOMATED 133 10^3/uL (150-450); RED BLOOD COUNT 2.91 10^6/uL (4.00-5.40); WHITE BLOOD COUNT 7.5 10^3/uL (4.0-10.0)
[2021-08-26 05:58] LABS: ALBUMIN 1.7 GM/DL (3.2-5.2); BILIRUBIN,TOTAL 1.1 MG/DL (0.2-1.0); CALCIUM LEVEL 8.1 MG/DL (8.8-10.2); CREATININE FOR GFR 1.97 MG/DL (0.55-1.30); GLOMERULAR FILTRATION RATE 27.2 (>45); POTASSIUM SERUM 4.8 MEQ/L (3.5-5.1); TOTAL PROTEIN 5.2 GM/DL (6.4-8.2)
[2021-08-26] MEDS: HumaLOG INSULIN (NovoLOG) PER UNIT SC SCH ×3 (07:30→18:00)
[2021-08-26] MEDS: SUCRALFATE 1 GM TAB PO SCH ×4 (07:30→21:09)
[2021-08-26] MEDS ORDERED: LACTULOSE 20 GM/30 ML SYRUP UD PO SCH (08:00)
[2021-08-26] MEDS ORDERED: LACTULOSE 20 GM/30 ML SYRUP UD PR ONE (08:25)
[2021-08-26] MEDS: MIDODRINE 5 MG TAB PO SCH ×3 (09:00→17:06)
[2021-08-26] MEDS: MAGNESIUM OXIDE 400MG TAB (MAG-OX) PO SCH ×3 (09:00→21:08)
[2021-08-26] MEDS: LEVEMIR (INSULIN DETEMIR) 1 UNITS/0.01ML SC SCH (09:00)
[2021-08-26] MEDS: TORSEMIDE (DEMADEX) 50 MG PER 1/2 TAB PO SCH (09:00)
[2021-08-26] MEDS ORDERED: NS 1,000 ML IV ONE (10:30)
[2021-08-26 10:55] LABS: HEMATOCRIT 27.7 % (36.0-47.0)
[2021-08-26 11:07] LABS: INR 1.43; PROTHROMBIN TIME 17.8 SECONDS (12.7-14.5)
[2021-08-26 11:08] LABS: PARTIAL THROMBOPLASTIN TIME 37.7 SECONDS (25.9-37.0)
--- NOTE | 2021-08-26 12:39 | REP ---
INDICATION: ng tube placement. COMPARISON: 07/27/2021 the latest prior also portable TECHNIQUE: Portable FINDINGS: The technique utilized in obtaining the radiograph has magnified the cardiac silhouette and accentuated the interstitial markings. The cardiomediastinal silhouette is unchanged. The left retrocardiac opacity seen on the prior exam has resolved. Since the last exam a right-sided PICC line catheter has been placed and the tip is obscured by superimposed external night monitor lead artifact and a recently placed double lumen central venous catheter. The tip is likely in the superior vena cava. The tip of the central venous catheter is in the region of the right atrium. Since the last examination a nasogastric tube has been placed the tip of which is in the stomach fundal region. There is no significant change in the osseous structures. IMPRESSION: There is no acute cardiopulmonary disease. Tube and lines as described above. <Electronically signed by Renzo Aragon > 08/26/21 [id number]
[2021-08-26] MEDS ORDERED: fentaNYL 100 MCG/2 ML INJECTION (J3010) IV PRN (12:45)
[2021-08-26] MEDS ORDERED: ONDANSETRON 4MG/2ML VIAL IV PRN (12:45)
[2021-08-26] MEDS ORDERED: PERCOCET 5MG/325MG TAB PO PRN (12:45)
[2021-08-26] MEDS ORDERED: LR 1,000 ML IV SCH (12:45)
[2021-08-26] MEDS ORDERED: LACTULOSE 20 GM/30 ML SYRUP UD NG SCH (13:00)
[2021-08-26] MEDS: PANTOPRAZOLE 40MG VIAL (C9113 PER 1) IV SCH ×2 (13:40→21:09)
[2021-08-26] MEDS: rifAXIMin 550 MG TAB (XIFAXAN) PO SCH ×2 (13:40→21:08)
--- NOTE | 2021-08-26 16:18 | IPNPDOC ---
Subjective Date Seen The patient was seen on 08/26/21. Subjective Chief Complaint/HPI Patient seen and examined at bedside this morning. She was obtunded and unable to contribute to review of system. Overnight, she began to have a change in mental status and repeat ammonia level was elevated. Objective Physical Examination Other physical findings General: Lying in bed, obtunded Head/Neck/Throat: Trachea midline, mucous membranes moist Eyes: Sclera anicteric, no erythema or discharge appreciated bilaterally Thorax: Normal respiratory effort on room air, bibasilar crackles appreciated Cardiovascular: Irregularly irregular, normal S1, S2, 2+ lower extremity edema Abdomen: Bowel sounds present, soft/nontender/nondistended Genitourinary: No CVA tenderness, Teixeira draining yellow urine Skin: Warm, dry, generalized pallor Neurologic: Obtunded Assessment /Plan Assessment #Hepatic encephalopathy -Complete change in mental status from yesterday, she was obtunded this morning. Repeat ammonia level was 315. Spoke to gastroenterology team and they are okay with an NG tube to be placed and for her lactulose to be resumed. -Titrate lactulose to 3 bowel movements per day, will increase to every 4 hours. Continue rifaximin. #GI bleed -An upper endoscopy done showed Graves' disease with bleeding, continue with Protonix. Octreotide was recommended by gastroenterology and was added on 08/24. -She has had multiple bowel movements that have been bharat/bloody. Plan was for colonoscopy today but she was unable to complete her prep overnight due to her mental status. Gastroenterology recommended for IR consult after she had several bowel movements several bharat in color, however there is no IR coverage this week. -She was transfused 1 unit of packed red blood cell as well as normal saline after blood pressure fell to 78/38. Repeat H&H has been stable. Her blood pressure has improved and she is now normotensive. #Acute kidney failure Secondary to hepatorenal syndrome. Patient required intermittent dialysis. She is now has acceptable urine output therefore further dialysis sessions are on hold as per nephrology team. #Diastolic CHF -Continue with diuretics #Cirrhosis -Status post paracentesis x2. Considering she is high risk for SBP she was started empirically on ciprofloxacin. #Electrolyte abnormality -Hyperkalemia resolved #Type 2 diabetes mellitus -Detemir twice daily, insulin sliding scale, Accu-Cheks, hypoglycemic protocol #Acute L1 compression fracture -She received calcitonin for a total of 3 days -Orthopedic team recommended physical therapy #Hypothyroidism -Continue with levothyroxine #DVT prophylax -Sequential Attempt to call patient's for updates, but there was no answer Plan/VTE VTE Prophylaxis Ordered?: No VS, I&O, 24H, Fishbone Vital Signs/I&O Vital Signs Date Time Temp Pulse Resp B/P (MAP) Pulse Ox O2 Delivery O2 Flow Rate FiO2 08/26/21 15:24 97.2 84 16 111/53 95 Room Air I&O- Last 24 Hours up to 6 AM 08/26/21 06:00 Intake Total 1300 ml Output Total 400 ml Balance 900 ml Laboratory Data 24H LABS Laboratory Tests 2 08/25/21 17:10: Bedside Glucose (Misc Panel) 89 08/25/21 22:20: Bedside Glucose (Misc Panel) 54L 08/25/21 22:45: Bedside Glucose (Misc Panel) 146H 08/26/21 00:48: Bedside Glucose (Misc Panel) 119H 08/26/21 05:00: Immature Granulocyte % (Auto) 0.4, Neutrophils (%) (Auto) 63.9, Lymphocytes (%) (Auto) 18.8L, Monocytes (%) (Auto) 12.1H, Eosinophils (%) (Auto) 4.1H, Basophils (%) (Auto) 0.7, Neutrophils # (Auto) 4.8, Lymphocytes # (Auto) 1.4L, Monocytes # (Auto) 0.9H, Eosinophils # (Auto) 0.3, Basophils # (Auto) 0.1, Nucleated Red Blood Cells % (auto) 0.0, Anion Gap 6L, Glomerular Filtration Rate 27.2L, Calcium Level 8.1L, Total Bilirubin 1.1H, Aspartate Amino Transf (AST/SGOT) 33, Alanine Aminotransferase (ALT/SGPT) 12, Alkaline Phosphatase 151H, Ammonia 315H, Total Protein 5.2L, Albumin 1.7L, Albumin/Globulin Ratio 0.5L 08/26/21 05:17: Bedside Glucose (Misc Panel) 105 08/26/21 10:45: Prothrombin Time 17.8H, Prothromb Time International Ratio 1.43, Activated Partial Thromboplast Time 37.7 08/26/21 12:12: Bedside Glucose (Misc Panel) 156H CBC/BMP Laboratory Tests 08/26/21 05:00 08/26/21 10:45 Microbiology Microbiology 08/20/21 Fungal Smear, Received Pending 08/20/21 Fungal Culture, Received Pending 08/20/21 Gram Stain - Final, Complete 08/20/21 Body Fluid Culture - Final, Complete Bacillus Sp., Not Anthracis 08/20/21 Anaerobic Culture - Final, Complete 08/19/21 Blood Culture - Final, Complete NO GROWTH AFTER 5 DAYS 08/19/21 Blood Culture - Final, Complete NO GROWTH AFTER 5 DAYS FRANCES DEVRIES M.D. Aug 26, 2021 16:17
[2021-08-26 17:21] LABS: HEMOGLOBIN 9.9 g/dl (12.0-15.5)
[2021-08-26] MEDS ORDERED: K-PHOS ORIGINAL (POT.ACID PHOSPHATE) 500MG TAB NG ONE (18:00)
[2021-08-26] MEDS: LACTULOSE 20 GM/30 ML SYRUP UD NG SCH ×2 (18:20→21:05)
[2021-08-26] MEDS: D5W/0.45% SODIUM CHLORIDE 1,000 ML IV SCH (18:20)
[2021-08-26] MEDS: ATORVASTATIN 20 MG TAB PO SCH (21:08)
[2021-08-26] MEDS: VITAMIN D 1,000 INTERNATIONAL UNITS TABLET PO SCH (21:08)
[2021-08-26] MEDS: allopurinoL 100 MG TAB PO SCH (21:08)
[2021-08-26] MEDS: ASCORBIC ACID 250 MG TAB PO SCH (21:08)
[2021-08-26 21:41] LABS: HEMATOCRIT 28.9 % (36.0-47.0); HEMOGLOBIN 9.5 g/dl (12.0-15.5)
--- NOTE | 2021-08-26 23:16 | IPNPDOC ---
Subjective CC/HPI The patient is a 66-year-old female admitted with a reason for visit of Acute On Chronic Kidney Injury, Hyperammonemia. Events since last encounter Pt was seen and examined at bedside. clinically worse since yesterday. I was told by nursing that she is having Melena. she is very encephalopathic today. She is not able to take anything PO. General: Reports: ROS Unobtainable (Metabolic encephalopathy. Unable to communicate.) Objective Physical Examination General Exam: Other (Hepatic encephalopathic.); No: Alert EYE EXAM: PERRLA, Sclera icteric ENT EXAM: Atraumatic, Mucous membr. moist/pink, Other ENT (Temporal wasting.) Neck Exam: Supple; No: JVD Chest Exam: Clear to auscultation, Normal air movement; No: Rales Heart Exam: Rate Normal, Normal S1, Normal S2; No: Murmurs, Rubs ABDOMEN EXAM: Normal bowel sounds, Soft, Other (Abdominal wall edema.); No: Tenderness Female Exam: No: Nl Ext Genitalia (Teixeira catheter noted) Extremity Exam: Edema (1+ edema of legs noted); No: Clubbing, Cyanosis Skin Exam: Nl turgor and temperature; No: Rash Neuro Exam: Strength at 5/5 X4 ext, Other (Encephalopathic.); No: Normal Speech Psych Exam: No: Mental status NL, Oriented x 3 (Encephalopathic.) Vital Signs/I&O Vital Signs Date Time Temp Pulse Resp B/P (MAP) Pulse Ox O2 Delivery O2 Flow Rate FiO2 08/26/21 20:00 98.8 78 16 106/53 (70) 98 Room Air I&O- Last 24 Hours up to 6 AM 08/26/21 06:00 Intake Total 1300 ml Output Total 400 ml Balance 900 ml Laboratory Data Labs 24H Laboratory Tests 2 08/26/21 00:48: Bedside Glucose (Misc Panel) 119H 08/26/21 05:00: Immature Granulocyte % (Auto) 0.4, Neutrophils (%) (Auto) 63.9, Lymphocytes (%) (Auto) 18.8L, Monocytes (%) (Auto) 12.1H, Eosinophils (%) (Auto) 4.1H, Basophils (%) (Auto) 0.7, Neutrophils # (Auto) 4.8, Lymphocytes # (Auto) 1.4L, Monocytes # (Auto) 0.9H, Eosinophils # (Auto) 0.3, Basophils # (Auto) 0.1, Nucleated Red Blood Cells % (auto) 0.0, Anion Gap 6L, Glomerular Filtration Rate 27.2L, Calcium Level 8.1L, Total Bilirubin 1.1H, Aspartate Amino Transf (AST/SGOT) 33, Alanine Aminotransferase (ALT/SGPT) 12, Alkaline Phosphatase 151H, Ammonia 315H, Total Protein 5.2L, Albumin 1.7L, Albumin/Globulin Ratio 0.5L 08/26/21 05:17: Bedside Glucose (Misc Panel) 105 08/26/21 10:45: Prothrombin Time 17.8H, Prothromb Time International Ratio 1.43, Activated Partial Thromboplast Time 37.7 08/26/21 12:12: Bedside Glucose (Misc Panel) 156H 08/26/21 18:17: Bedside Glucose (Misc Panel) 181H 08/26/21 21:16: Ammonia 70H CBC/BMP Laboratory Tests 08/26/21 05:00 08/26/21 10:45 08/26/21 16:51 08/26/21 21:16 FSBS Laboratory Tests Test 08/26/21 00:48 08/26/21 05:17 08/26/21 12:12 08/26/21 18:17 Range/Units Bedside Glucose (Misc Panel) 119 105 156 181 80-115 MG/DL Current Medications Current Medications Medications (Trade) Dose Ordered Sig/Alicia Route PRN Reason Start Time Stop Time Status Last Admin Dose Admin Allopurinol (Zyloprim) 100 mg QHS PO 08/10/21 21:00 08/26/21 21:08 Ascorbic Acid (Vitamin C) 250 mg QHS PO 08/10/21 21:00 08/26/21 21:08 Atorvastatin Calcium (Lipitor) 40 mg QHS PO 08/25/21 21:00 08/26/21 21:08 Calcitonin [place] (Miacalcin (Fortical)) 1 sprays DAILY NA 08/16/21 17:00 08/19/21 09:00 DC 08/18/21 10:30 Ceftriaxone Sodium 2 gm/ Dextrose 50 ml @ 100 mls/hr Q24H IV 08/10/21 17:00 08/11/21 06:51 DC 08/10/21 17:00 Ceftriaxone Sodium 2 gm/ Dextrose 50 ml @ 100 mls/hr Q24H IV 08/18/21 14:00 08/23/21 23:59 DC 08/23/21 16:01 Ciprofloxacin (Cipro) 250 mg DAILY@06 PO 08/18/21 06:00 08/18/21 13:38 DC Ciprofloxacin (Cipro) 250 mg DAILY@0600 PO 08/24/21 06:00 08/25/21 06:14 Ciprofloxacin (Cipro) 500 mg BID@06,18 PO 08/13/21 07:20 08/13/21 07:49 DC Ciprofloxacin (Cipro) 500 mg DAILY@0600 PO 08/14/21 06:00 08/15/21 07:18 DC 08/15/21 05:43 Dextrose (Dextrose 50%) 25 ml ASDIRECTED PRN IV SEE LABEL COMMENTS 08/10/21 16:20 08/25/21 22:23 Dextrose/Sodium Chloride 1,000 ml @ 60 mls/hr [id number] IV 08/26/21 16:25 08/26/21 18:20 Fentanyl Citrate (Sublimaze) 25 mcg Q5MP PRN IV PAIN LEVEL 8-10 08/26/21 12:45 08/26/21 14:45 Cancel Furosemide 250 mg/ Dextrose 250 ml @ 10 mls/hr Q24H IV 08/15/21 22:30 08/19/21 13:20 DC 08/18/21 21:35 Furosemide 250 mg/ Dextrose 250 ml @ 10 mls/hr Q24H IV 08/19/21 13:20 08/19/21 13:22 DC Furosemide 250 mg/ Dextrose 250 ml @ 10 mls/hr Q24H IV 08/19/21 21:00 08/24/21 17:00 DC 08/23/21 17:19 Gabapentin (Neurontin) 100 mg BID PO 08/10/21 21:00 Hold 08/22/21 10:21 Glucagon (Glucagon) 1 mg ASDIRECTED PRN SC SEE LABEL COMMENTS 08/10/21 16:20 Glucose (Glucose) 16 GM ASDIRECTED PRN PO SEE LABEL COMMENTS 08/10/21 16:20 Heparin Sodium (Heparin (Flush)) 200 units ASDIRECTED PRN IV SEE LABEL COMMENTS 08/19/21 18:50 08/23/21 18:57 Heparin Sodium (Heparin (Flush)) 200 units PICC IV 08/20/21 06:00 08/26/21 18:26 Home Med (Home Med List Complete!) ASDIRECTED XX 08/10/21 17:35 08/10/21 17:37 DC Hydralazine HCl (Apresoline) 10 mg Q1H PRN IV htn 08/22/21 15:55 08/24/21 18:45 DC Insulin Detemir (Levemir Insulin) 10 units BID SC 08/23/21 09:00 08/24/21 18:45 DC 08/24/21 08:57 Insulin Detemir (Levemir Insulin) 10 units BID SC 08/17/21 21:00 08/18/21 15:22 DC Insulin Detemir (Levemir Insulin) 10 units DAILY SC 08/25/21 09:00 08/26/21 16:23 DC 08/25/21 09:02 Insulin Detemir (Levemir Insulin) 14 units BID SC 08/18/21 21:00 08/23/21 09:11 DC 08/22/21 20:28 Insulin Human Lispro (HumaLOG INSULIN) SEE PROTOCOL TABLE AC MN 08/10/21 17:30 08/26/21 16:23 DC 08/25/21 13:35 Insulin Human Lispro (HumaLOG INSULIN) SEE PROTOCOL TABLE Q6H MN 08/26/21 18:00 Insulin Human Lispro (HumaLOG INSULIN) SEE PROTOCOL TABLE QHS MN 08/10/21 21:00 08/26/21 16:23 DC 08/15/21 21:42 Lactated Ringer's 1,000 ml @ 100 mls/hr Q10H IV 08/26/21 12:45 08/26/21 14:45 Cancel Lactulose (Cephulac) 30 ml Q1H PO 08/26/21 08:00 08/26/21 08:26 DC Lactulose (Cephulac) 30 ml QID PO 08/11/21 21:00 08/14/21 18:27 DC 08/14/21 17:59 Lactulose (Cephulac) 40 ml Q4H NG 08/26/21 17:00 08/26/21 21:05 Lactulose (Cephulac) 40 ml QID NG 08/26/21 13:00 08/26/21 16:17 DC 08/26/21 13:41 Lactulose (Cephulac) 40 ml QID PO 08/14/21 21:00 08/26/21 07:54 DC 08/25/21 22:14 Levothyroxine Sodium (Synthroid) 25 mcg DAILY@0600 PO 08/11/21 06:00 08/25/21 06:14 Levothyroxine Sodium (Synthroid) 25 mcg QHS PO 08/10/21 21:00 08/10/21 22:25 DC Magnesium Oxide (Mag-Ox) 400 mg TID PO 08/10/21 21:00 08/26/21 21:08 Midodrine (Proamatine) 15 mg TID@0900,1200,1600 PO 08/11/21 09:00 08/25/21 17:03 Octreotide Acetate 1200 mcg/ Sodium Chloride 240 ml @ 10 mls/hr Q24H IV 08/18/21 16:00 08/21/21 09:00 DC 08/20/21 14:27 Octreotide Acetate (SandoSTATIN) 100 mcg Q8H SC 08/24/21 22:00 08/26/21 21:05 Omeprazole (PriLOSEC) 40 mg QHS PO 08/10/21 21:00 08/18/21 15:26 DC 08/17/21 20:35 Ondansetron HCl (ZOFRAN INJection) 4 mg Q4HP PRN IV NAUSEA OR VOMITING 08/26/21 12:45 08/26/21 14:45 Cancel Ondansetron HCl (ZOFRAN INJection) 4 mg Q4HP PRN IV NAUSEA OR VOMITING 08/19/21 18:10 08/19/21 20:10 DC Oxycodone HCl (Roxicodone, Oxyir) 5 mg Q4HP PRN PO PAIN LEVEL 5-10 08/14/21 09:50 08/14/21 12:51 DC 08/14/21 12:31 Oxycodone HCl (Roxicodone, Oxyir) 5 mg Q6HP PRN PO PAIN LEVEL 5-10 08/14/21 18:00 08/25/21 10:16 Oxycodone/ Acetaminophen (Percocet 5mg/ 325mg Tablet) 1 tab ASDIRECTED PRN PO PAIN LEVEL 1-4 08/26/21 12:45 08/26/21 14:45 Cancel Pantoprazole Sodium (Protonix) 40 mg Q12H IV 08/18/21 21:00 08/26/21 21:09 Promethazine HCl (PHENERGAN INJection) 12.5 mg Q6HP PRN IV NAUSEA 08/15/21 23:55 08/25/21 18:20 Rifaximin (Xifaxan) 550 mg BID PO 08/10/21 21:00 08/26/21 21:08 Sodium Chloride 1,000 ml @ 120 mls/hr Q8H20M IV 08/11/21 14:30 08/11/21 22:49 DC 08/11/21 14:57 Sodium Chloride (Saline Lock Flush) 10 ml ASDIRECTED PRN IV SEE LABEL COMMENTS 08/19/21 18:50 08/23/21 18:57 Sodium Chloride (Saline Lock Flush) 10 ml PICC IV 08/20/21 06:00 08/26/21 18:26 Spironolactone (Aldactone) 50 mg QHS PO 08/13/21 21:00 08/26/21 12:39 DC 08/25/21 22:15 Sucralfate (Carafate) 1 gm ACHS PO 08/10/21 21:00 08/26/21 21:09 Tizanidine HCl (Zanaflex) 4 mg TID PRN PO SPASMS 08/10/21 18:55 08/25/21 11:38 Torsemide (Demadex) 20 mg BID@0900,1700 PO 08/11/21 09:00 08/16/21 07:10 DC 08/14/21 17:59 Torsemide (Demadex) 50 mg BID@09,17 PO 08/24/21 17:00 08/26/21 12:39 DC 08/25/21 17:03 Vitamin D (Vitamin D) 1,000 units QHS PO 08/10/21 21:00 08/26/21 21:08 Allergies Coded Allergies: No Known Drug Allergies (Verified Allergy, Unknown, 01/19/21) Assessment/Plan Date Seen The patient was seen on 08/26/21 in AM at bedside. Plan / VTE VTE Prophylaxis Ordered?: No Plan Orders past 48 Hours Orders * Nursing Order * (08/25/21 05:26) Discontinue Urinary Catheter (08/25/21 07:45) Transfer (In House) (08/25/21 07:45) Remote Telemetry 48 Hr Order (08/25/21 07:45) Fingerstick Blood Sugar (08/25/21 11:42) Ct Head Without Contrast (08/25/21 17:40) Fingerstick Blood Sugar (08/25/21 17:10) Atorvastatin (Lipitor) (08/25/21 18:45) Consistent Carbohydrates (08/25/21 Dinner) Atorvastatin (Lipitor) (08/25/21 21:00) Npo Diet For Test/Procedure (08/26/21 Breakfast) Surgical Consult (08/25/21 21:29) Fingerstick Blood Sugar (08/25/21 22:20) Fingerstick Blood Sugar (08/25/21 22:45) Cbc With Differential (08/26/21 06:00) Complete Comphrensive Metaboli (08/26/21 06:00) Fingerstick Blood Sugar (08/26/21 00:48) Ammonia (08/26/21 06:00) Fingerstick Blood Sugar (08/26/21 05:17) Lactulose Syrup (Cephulac) (08/26/21 08:00) Ammonia (08/27/21 00:00) Ammonia (08/27/21 12:00) Ammonia (08/28/21 00:00) Ammonia (08/28/21 12:00) Ammonia (08/29/21 00:00) Ammonia (08/29/21 12:00) Ammonia (08/30/21 00:00) Ammonia (08/30/21 12:00) Ammonia (08/31/21 00:00) Lactulose Syrup (Cephulac) (08/26/21 08:25) Transfer (In House) (08/26/21 08:41) Cbc With Differential (08/27/21 06:00) Cbc With Differential (08/28/21 06:00) Cbc With Differential (08/29/21 06:00) Cbc With Differential (08/30/21 06:00) Cbc With Differential (08/31/21 06:00) Cbc With Differential (09/01/21 06:00) Cbc With Differential (09/02/21 06:00) Complete Comphrensive Metaboli (08/27/21 06:00) Complete Comphrensive Metaboli (08/28/21 06:00) Complete Comphrensive Metaboli (08/29/21 06:00) Complete Comphrensive Metaboli (08/30/21 06:00) Complete Comphrensive Metaboli (08/31/21 06:00) Complete Comphrensive Metaboli (09/01/21 06:00) Complete Comphrensive Metaboli (09/02/21 06:00) Transfuse Packed Cells (08/26/21 10:27) Packed Cells (08/26/21 10:27) Ns (Nacl 0.9%) (08/26/21 10:30) Type & Screen (08/26/21 10:27) Hemoglobin & Hematocrit (08/26/21 12:00) Prothrombin Time Profile\Inr (08/26/21 12:00) Pt & Aptt (08/26/21 12:00) Insert Ng Tube (08/26/21 10:46) Portable Chest X-Ray (08/26/21 12:11) Fingerstick Blood Sugar (08/26/21 12:12) Urinary Catheter DOCUMENT BID (08/26/21 12:40) Lactulose Syrup (Cephulac) (08/26/21 13:00) Hemoglobin & Hematocrit (08/26/21 16:30) Lactulose Syrup (Cephulac) (08/26/21 17:00) Fsbs Q6h (Fingerstick) Q6H (08/26/21 16:18) Insulin Lispro (Humalog Insulin) (08/26/21 18:00) D5w/0.45% Sodium Chloride (Dextrose 5%/ (08/26/21 16:25) Potassium Phosphate Monobasic (K-Phos Or (08/26/21 18:00) Hemoglobin & Hematocrit (08/26/21 22:00) Ammonia (08/26/21 17:11) Fingerstick Blood Sugar (08/26/21 18:17) Magnesium Level (08/27/21 06:00) Phosphorous Level (08/27/21 06:00) Plan Text 1. Acute Renal Failure on CKD3: Last HD on 08/18/21.Continue Midodrine. Diuretics being stopped. 2. Hepatic encephalopathy: Worse today. she is likely having GI bleed again. NGT being ordered. Rectal lactulose given today. 3. Cirrhosis with recurrent ascites:S/P IV lasix drip. Oral torsemide stopped due to encephalopathy and decreased PO intake. 4. Upper GI Bleed: S/p EGD with laser+ clipping of multiple bleeding sites. transfuse PRN for Hb<8. 5. HFpEF, Anasarca: Responded to Lasix drip, Switched to oral diuretic but being stopped due to decreased PO intake. 6.Nutrition: Encephalopathic and not eating. Poor prognosis overall due to recurrent Hepatic encephalopathy, GI bleed sec to AVMs. Recurrent AIDA. WILFRID GUPTA MD Aug 26, 2021 23:16
[2021-08-27] VITALS: BP 106/53
[2021-08-27] MEDS: LACTULOSE 20 GM/30 ML SYRUP UD NG SCH ×6 (00:20→22:03)
[2021-08-27] MEDS: HumaLOG INSULIN (NovoLOG) PER UNIT SC SCH ×4 (00:29→16:50)
[2021-08-27 04:06] VITALS: BP 106/54
[2021-08-27 04:22] LABS: BASO # 0.1 10^3/uL (0.0-0.2); BASO % 0.6 % (0.0-1.0); EOS # 0.2 10^3/uL (0.0-0.5); EOS % 2.6 % (0.0-3.0); HEMATOCRIT 27.2 % (36.0-47.0); HEMOGLOBIN 8.9 g/dl (12.0-15.5); LYMPH # 1.4 10^3/uL (1.5-5.0); LYMPH % 17.1 % (24.0-44.0); MEAN CORPUSCULAR HEMOGLOBIN 31.1 pg (27.0-33.0); MEAN CORPUSCULAR HGB CONC 32.7 g/dl (32.0-36.5); MEAN CORPUSCULAR VOLUME 95.1 fl (80.0-96.0); MONO # 1.3 10^3/uL (0.0-0.8); MONO % 15.9 % (2.0-8.0); NEUTROPHILS # 5.2 10^3/uL (1.5-8.5); NEUTROPHILS % 63.4 % (36.0-66.0); PLATELET COUNT, AUTOMATED 142 10^3/uL (150-450); RED BLOOD COUNT 2.86 10^6/uL (4.00-5.40); WHITE BLOOD COUNT 8.1 10^3/uL (4.0-10.0)
[2021-08-27 04:54] LABS: ALBUMIN 1.6 GM/DL (3.2-5.2); BILIRUBIN,TOTAL 1.5 MG/DL (0.2-1.0); CREATININE FOR GFR 2.39 MG/DL (0.55-1.30); GLOMERULAR FILTRATION RATE 21.7 (>45); MAGNESIUM LEVEL 2.2 MG/DL (1.8-2.4); PHOSPHORUS LEVEL 2.9 MG/DL (2.5-4.9); POTASSIUM SERUM 4.3 MEQ/L (3.5-5.1); TOTAL PROTEIN 4.9 GM/DL (6.4-8.2)
[2021-08-27] MEDS: OCTREOTIDE ACETATE 100MCG/ML VIAL **IV ADMINISTRATION ONLY SC SCH ×3 (05:52→22:02)
[2021-08-27] MEDS: CIPROFLOXACIN 250MG TAB PO SCH (05:53)
[2021-08-27] MEDS: LEVOTHYROXINE 25MCG TABLET (0.025MG) PO SCH (05:53)
[2021-08-27] MEDS: SODIUM CHLORIDE 0.9% INJ 10 ML SYR IV SCH ×2 (05:54→16:52)
[2021-08-27 07:57] VITALS: BP 113/55
[2021-08-27] MEDS: MAGNESIUM OXIDE 400MG TAB (MAG-OX) PO SCH ×3 (08:12→21:00)
[2021-08-27] MEDS: rifAXIMin 550 MG TAB (XIFAXAN) PO SCH ×2 (08:12→22:00)
[2021-08-27] MEDS: PANTOPRAZOLE 40MG VIAL (C9113 PER 1) IV SCH ×2 (08:12→21:00)
[2021-08-27] MEDS: SUCRALFATE 1 GM TAB PO SCH ×4 (08:12→22:01)
[2021-08-27] MEDS: MIDODRINE 5 MG TAB PO SCH ×3 (08:12→16:51)
[2021-08-27] MEDS: GABAPENTIN 100 MG CAP PO SCH ×2 (09:47→22:01)
[2021-08-27] MEDS: tiZANidine 4 MG TAB PO PRN (09:47)
[2021-08-27] MEDS: D5W/0.45% SODIUM CHLORIDE 1,000 ML IV SCH (09:47)
[2021-08-27 12:00] VITALS: BP 100/54
[2021-08-27 16:00] VITALS: BP 101/54
--- NOTE | 2021-08-27 16:26 | IPNPDOC ---
Subjective Date Seen The patient was seen on 08/27/21. Subjective Chief Complaint/HPI Patient was seen and examined at bedside this morning. She was lethargic, alert and following commands but not oriented. When asked if she was having any pain she replied no. However, due to her lethargy she was unable to contribute to her review of systems entirely. Objective Physical Examination Other physical findings General: Lying in bed, obtunded Head/Neck/Throat: Trachea midline, mucous membranes moist Eyes: Sclera anicteric, no erythema or discharge appreciated bilaterally Thorax: Normal respiratory effort on room air, bibasilar crackles appreciated Cardiovascular: Irregularly irregular, normal S1, S2, 2+ lower extremity edema Abdomen: Bowel sounds present, soft/nontender/nondistended Genitourinary: No CVA tenderness, Teixeira draining yellow urine Skin: Warm, dry, generalized pallor Neurologic: Alert but lethargic, replies in one-word answers at times, following commands Assessment /Plan Assessment #Hepatic encephalopathy -Improvement in her mental status as ammonia is decreasing. -Titrate lactulose to 3 bowel movements per day, will increase to every 4 hours. Continue rifaximin. #GI bleed -An upper endoscopy done showed Graves' disease with bleeding, continue with Protonix. Octreotide was recommended by gastroenterology and was added on 08/24. -She has had multiple bowel movements that have been bharat/bloody. Plan was for colonoscopy on 08/26 but she was unable to complete her prep overnight due to her mental status. Gastroenterology recommended for IR consult after she had several bowel movements that were bharat in color during the day of 08/26, however there is no IR coverage this week. Gastroenterology plans to scope her 08/28. -H&H remained stable, blood pressure is acceptable. #Acute kidney failure Secondary to hepatorenal syndrome. Patient required intermittent dialysis. She is now has acceptable urine output therefore further dialysis sessions are on hold as per nephrology team. #Diastolic CHF -Diuretics were on hold due to her episode of hypotension. #Cirrhosis/End fiona liver disease -Status post paracentesis x2. Considering she is high risk for SBP she was started empirically on ciprofloxacin. -spoke to gi, there is no indication for immediate transfer at this time #Electrolyte abnormality -Hyperkalemia resolved #Type 2 diabetes mellitus -Detemir twice daily, insulin sliding scale, Accu-Cheks, hypoglycemic protocol #Acute L1 compression fracture -She received calcitonin for a total of 3 days -Orthopedic team recommended physical therapy #Hypothyroidism -Continue with levothyroxine #DVT prophylax -Sequential Plan/VTE VTE Prophylaxis Ordered?: No VS, I&O, 24H, Fishbone Vital Signs/I&O Vital Signs Date Time Temp Pulse Resp B/P (MAP) Pulse Ox O2 Delivery O2 Flow Rate FiO2 08/27/21 12:00 97.4 83 17 100/54 (69) 97 Room Air I&O- Last 24 Hours up to 6 AM0 08/27/21 05:59 Intake Total 2220 ml Output Total 1000 ml Balance 1220 ml Laboratory Data 24H LABS Laboratory Tests 2 08/26/21 18:17: Bedside Glucose (Misc Panel) 181H 08/26/21 21:16: Ammonia 70H 08/27/21 00:17: Bedside Glucose (Misc Panel) 240H 08/27/21 03:59: Immature Granulocyte % (Auto) 0.4, Neutrophils (%) (Auto) 63.4, Lymphocytes (%) (Auto) 17.1L, Monocytes (%) (Auto) 15.9H, Eosinophils (%) (Auto) 2.6, Basophils (%) (Auto) 0.6, Neutrophils # (Auto) 5.2, Lymphocytes # (Auto) 1.4L, Monocytes # (Auto) 1.3H, Eosinophils # (Auto) 0.2, Basophils # (Auto) 0.1, Nucleated Red Blood Cells % (auto) 0.0, Anion Gap 7L, Glomerular Filtration Rate 21.7L, Alfa cium Level 8.0L, Phosphorus Level 2.9#, Magnesium Level 2.2, Total Bilirubin 1.5H, Aspartate Amino Transf (AST/SGOT) 37, Alanine Aminotransferase (ALT/SGPT) 12, Alkaline Phosphatase 147H, Total Protein 4.9L, Albumin 1.6L, Albumin/Globulin Ratio 0.5L 08/27/21 04:25: Ammonia 61H 08/27/21 11:45: Bedside Glucose (Misc Panel) 206H 08/27/21 12:08: Ammonia 50H CBC/BMP Laboratory Tests 08/26/21 16:51 08/26/21 21:16 08/27/21 03:59 Microbiology Microbiology 08/20/21 Fungal Smear, Received Pending 08/20/21 Fungal Culture, Received Pending 08/20/21 Gram Stain - Final, Complete 08/20/21 Body Fluid Culture - Final, Complete Bacillus Sp., Not Anthracis 08/20/21 Anaerobic Culture - Final, Complete 08/19/21 Blood Culture - Final, Complete NO GROWTH AFTER 5 DAYS 08/19/21 Blood Culture - Final, Complete NO GROWTH AFTER 5 DAYS FRANCES DEVRIES M.D. Aug 27, 2021 16:26
[2021-08-27] MEDS: MIRALAX *UNIT DOSE* 17GM PACKET NG SCH (16:52)
[2021-08-27 20:00] VITALS: BP 110/57
[2021-08-27] MEDS: ATORVASTATIN 20 MG TAB PO SCH (22:00)
[2021-08-27] MEDS: allopurinoL 100 MG TAB PO SCH (22:01)
[2021-08-27] MEDS: VITAMIN D 1,000 INTERNATIONAL UNITS TABLET PO SCH (22:01)
[2021-08-27] MEDS: ASCORBIC ACID 250 MG TAB PO SCH (22:02)
--- NOTE | 2021-08-27 22:44 | REPVR ---
PROCEDURE INFORMATION: Exam: MR Head Without Contrast Exam date and time: 08/27/2021 9:03 PM Age: 66 years old Clinical indication: Weakness, extremity; Left; Additional info: Left hand weakness TECHNIQUE: Imaging protocol: MR of the head without contrast. COMPARISON: CT Head without contrast 08/25/2021 6:00 PM FINDINGS: No abnormal restriction of diffusion to indicate acute CVA. Midline structures and cerebellar tonsillar position appear normal. Ventricles, cisterns and sulci are symmetric and normal for age. No intracranial mass, midline shift or abnormal extra-axial fluid. No acute intracranial hemorrhage. Minimal punctate foci of increased T2 and flair signal in supratentorial white matter. Optic chiasm and pituitary infundibulum appear normal. Normal vascular flow voids in major intracranial arteries and dural venous sinuses. Paranasal sinuses are normally aerated. Mastoid air cells are normally aerated. Optic globes and orbits are unremarkable. IMPRESSION: No acute infarct, hemorrhage or mass effect. Mild pattern of likely chronic microangiopathic supratentorial small vessel changes. Electronically signed by: Marbin Villalobos On 08/27/2021 22:44:00 PM
[2021-08-28] VITALS: BP 93/46
[2021-08-28] MEDS: LACTULOSE 20 GM/30 ML SYRUP UD NG SCH ×6 (00:11→21:13)
[2021-08-28] MEDS: HumaLOG INSULIN (NovoLOG) PER UNIT SC SCH ×5 (00:11→21:00)
[2021-08-28] MEDS: D5W/0.45% SODIUM CHLORIDE 1,000 ML IV SCH (00:20)
--- NOTE | 2021-08-28 00:32 | IPNPDOC ---
Subjective CC/HPI The patient is a 66-year-old female admitted with a reason for visit of Acute On Chronic Kidney Injury, Hyperammonemia. Events since last encounter Pt was examined at bedside. She is still very obtunded and encephalopathic at this time. she was getting IVF hydration with D5 1/2 NS. She has an NGT now. Ammonia level is improving. Renal function worse with Cr 1.9-->2.3 now. Diuretics are on hold. General: Reports: ROS Unobtainable (Encephalopathic.) Objective Physical Examination General Exam: Other (Hepatic encephalopathic.); No: Alert EYE EXAM: PERRLA, Sclera icteric ENT EXAM: Atraumatic, Mucous membr. moist/pink, Other ENT (Temporal wasting. NGT noted) Neck Exam: Supple; No: JVD Chest Exam: Clear to auscultation, Normal air movement; No: Rales Heart Exam: Rate Normal, Normal S1, Normal S2; No: Murmurs, Rubs ABDOMEN EXAM: Normal bowel sounds, Soft, Other (Abdominal wall edema.); No: Tenderness Female Exam: No: Nl Ext Genitalia (Teixeira catheter noted) Extremity Exam: Edema (1+ edema of legs noted); No: Clubbing, Cyanosis Skin Exam: Nl turgor and temperature; No: Rash Neuro Exam: Strength at 5/5 X4 ext, Other (Encephalopathic.); No: Normal Speech Psych Exam: No: Mental status NL, Oriented x 3 (Encephalopathic.) Vital Signs/I&O Vital Signs Date Time Temp Pulse Resp B/P (MAP) Pulse Ox O2 Delivery O2 Flow Rate FiO2 08/27/21 20:00 97.9 62 18 110/57 (74) 97 Room Air I&O- Last 24 Hours up to 6 AM 08/27/21 06:00 Intake Total 2340 ml Output Total 1000 ml Balance 1340 ml Laboratory Data Labs 24H Laboratory Tests 2 08/27/21 00:17: Bedside Glucose (Misc Panel) 240H 08/27/21 03:59: Immature Granulocyte % (Auto) 0.4, Neutrophils (%) (Auto) 63.4, Lymphocytes (%) (Auto) 17.1L, Monocytes (%) (Auto) 15.9H, Eosinophils (%) (Auto) 2.6, Basophils (%) (Auto) 0.6, Neutrophils # (Auto) 5.2, Lymphocytes # (Auto) 1.4L, Monocytes # (Auto) 1.3H, Eosinophils # (Auto) 0.2, Basophils # (Auto) 0.1, Nucleated Red Blood Cells % (auto) 0.0, Anion Gap 7L, Glomerular Filtration Rate 21.7L, Calcium Level 8.0L, Phosphorus Level 2.9#, Magnesium Level 2.2, Total Bilirubin 1.5H, Aspartate Amino Transf (AST/SGOT) 37, Alanine Aminotransferase (ALT/SGPT) 12, Alkaline Phosphatase 147H, Total Protein 4.9L, Albumin 1.6L, Albumin/Glob ulin Ratio 0.5L 08/27/21 04:25: Ammonia 61H 08/27/21 11:45: Bedside Glucose (Misc Panel) 206H 08/27/21 12:08: Ammonia 50H 08/27/21 16:49: Bedside Glucose (Misc Panel) 172H CBC/BMP Laboratory Tests 08/27/21 03:59 FSBS Laboratory Tests Test 08/27/21 00:17 08/27/21 11:45 08/27/21 16:49 Range/Units Bedside Glucose (Misc Panel) 240 206 172 80-115 MG/DL Current Medications Current Medications Medications (Trade) Dose Ordered Sig/Alicia Route PRN Reason Start Time Stop Time Status Last Admin Dose Admin Allopurinol (Zyloprim) 100 mg QHS PO 08/10/21 21:00 08/27/21 22:01 Ascorbic Acid (Vitamin C) 250 mg QHS PO 08/10/21 21:00 08/27/21 22:02 Atorvastatin Calcium (Lipitor) 40 mg QHS PO 08/25/21 21:00 08/27/21 22:00 Calcitonin [place] (Miacalcin (Fortical)) 1 sprays DAILY NA 08/16/21 17:00 08/19/21 09:00 DC 08/18/21 10:30 Ceftriaxone Sodium 2 gm/ Dextrose 50 ml @ 100 mls/hr Q24H IV 08/10/21 17:00 08/11/21 06:51 DC 08/10/21 17:00 Ceftriaxone Sodium 2 gm/ Dextrose 50 ml @ 100 mls/hr Q24H IV 08/18/21 14:00 08/23/21 23:59 DC 08/23/21 16:01 Ciprofloxacin (Cipro) 250 mg DAILY@06 PO 08/18/21 06:00 08/18/21 13:38 DC Ciprofloxacin (Cipro) 250 mg DAILY@0600 PO 08/24/21 06:00 08/27/21 05:53 Ciprofloxacin (Cipro) 500 mg BID@06,18 PO 08/13/21 07:20 08/13/21 07:49 DC Ciprofloxacin (Cipro) 500 mg DAILY@0600 PO 08/14/21 06:00 08/15/21 07:18 DC 08/15/21 05:43 Dextrose (Dextrose 50%) 25 ml ASDIRECTED PRN IV SEE LABEL COMMENTS 08/10/21 16:20 08/25/21 22:23 Dextrose/Sodium Chloride 1,000 ml @ 60 mls/hr [id number] IV 08/26/21 16:25 08/27/21 09:47 Fentanyl Citrate (Sublimaze) 25 mcg Q5MP PRN IV PAIN LEVEL 8-10 08/26/21 12:45 08/26/21 14:45 Cancel Furosemide 250 mg/ Dextrose 250 ml @ 10 mls/hr Q24H IV 08/15/21 22:30 08/19/21 13:20 DC 08/18/21 21:35 Furosemide 250 mg/ Dextrose 250 ml @ 10 mls/hr Q24H IV 08/19/21 13:20 08/19/21 13:22 DC Furosemide 250 mg/ Dextrose 250 ml @ 10 mls/hr Q24H IV 08/19/21 21:00 08/24/21 17:00 DC 08/23/21 17:19 Gabapentin (Neurontin) 100 mg BID PO 08/10/21 21:00 08/27/21 22:01 Glucagon (Glucagon) 1 mg ASDIRECTED PRN SC SEE LABEL COMMENTS 08/10/21 16:20 Glucose (Glucose) 16 GM ASDIRECTED PRN PO SEE LABEL COMMENTS 08/10/21 16:20 Heparin Sodium (Heparin (Flush)) 200 units ASDIRECTED PRN IV SEE LABEL COMMENTS 08/19/21 18:50 08/23/21 18:57 Heparin Sodium (Heparin (Flush)) 200 units PICC IV 08/20/21 06:00 08/27/21 16:52 Home Med (Home Med List Complete!) ASDIRECTED XX 08/10/21 17:35 08/10/21 17:37 DC Hydralazine HCl (Apresoline) 10 mg Q1H PRN IV htn 08/22/21 15:55 08/24/21 18:45 DC Insulin Detemir (Levemir Insulin) 10 units BID SC 08/23/21 09:00 08/24/21 18:45 DC 08/24/21 08:57 Insulin Detemir (Levemir Insulin) 10 units BID SC 08/17/21 21:00 08/18/21 15:22 DC Insulin Detemir (Levemir Insulin) 10 units DAILY SC 08/25/21 09:00 08/26/21 16:23 DC 08/25/21 09:02 Insulin Detemir (Levemir Insulin) 14 units BID SC 08/18/21 21:00 08/23/21 09:11 DC 08/22/21 20:28 Insulin Human Lispro (HumaLOG INSULIN) SEE PROTOCOL TABLE AC MT 08/10/21 17:30 08/26/21 16:23 DC 08/25/21 13:35 Insulin Human Lispro (HumaLOG INSULIN) SEE PROTOCOL TABLE Q6H MT 08/26/21 18:00 08/27/21 16:50 Insulin Human Lispro (HumaLOG INSULIN) SEE PROTOCOL TABLE QHS MT 08/10/21 21:00 08/26/21 16:23 DC 08/15/21 21:42 Lactated Ringer's 1,000 ml @ 100 mls/hr Q10H IV 08/26/21 12:45 08/26/21 14:45 Cancel Lactulose (Cephulac) 30 ml Q1H PO 08/26/21 08:00 08/26/21 08:26 DC Lactulose (Cephulac) 30 ml QID PO 08/11/21 21:00 08/14/21 18:27 DC 08/14/21 17:59 Lactulose (Cephulac) 40 ml Q4H NG 08/26/21 17:00 08/27/21 22:03 Lactulose (Cephulac) 40 ml QID NG 08/26/21 13:00 08/26/21 16:17 DC 08/26/21 13:41 Lactulose (Cephulac) 40 ml QID PO 08/14/21 21:00 08/26/21 07:54 DC 08/25/21 22:14 Levothyroxine Sodium (Synthroid) 25 mcg DAILY@0600 PO 08/11/21 06:00 08/27/21 05:53 Levothyroxine Sodium (Synthroid) 25 mcg QHS PO 08/10/21 21:00 08/10/21 22:25 DC Magnesium Oxide (Mag-Ox) 400 mg TID PO 08/10/21 21:00 08/27/21 21:00 Midodrine (Proamatine) 15 mg TID@0900,1200,1600 PO 08/11/21 09:00 08/27/21 16:51 Octreotide Acetate 1200 mcg/ Sodium Chloride 240 ml @ 10 mls/hr Q24H IV 08/18/21 16:00 08/21/21 09:00 DC 08/20/21 14:27 Octreotide Acetate (SandoSTATIN) 100 mcg Q8H SC 08/24/21 22:00 08/27/21 22:02 Omeprazole (PriLOSEC) 40 mg QHS PO 08/10/21 21:00 08/18/21 15:26 DC 08/17/21 20:35 Ondansetron HCl (ZOFRAN INJection) 4 mg Q4HP PRN IV NAUSEA OR VOMITING 08/26/21 12:45 08/26/21 14:45 Cancel Ondansetron HCl (ZOFRAN INJection) 4 mg Q4HP PRN IV NAUSEA OR VOMITING 08/19/21 18:10 08/19/21 20:10 DC Oxycodone HCl (Roxicodone, Oxyir) 5 mg Q4HP PRN PO PAIN LEVEL 5-10 08/14/21 09:50 08/14/21 12:51 DC 08/14/21 12:31 Oxycodone HCl (Roxicodone, Oxyir) 5 mg Q6HP PRN PO PAIN LEVEL 5-10 08/14/21 18:00 08/25/21 10:16 Oxycodone/ Acetaminophen (Percocet 5mg/ 325mg Tablet) 1 tab ASDIRECTED PRN PO PAIN LEVEL 1-4 08/26/21 12:45 08/26/21 14:45 Cancel Pantoprazole Sodium (Protonix) 40 mg Q12H IV 08/18/21 21:00 08/27/21 21:00 Polyethylene Glycol (Miralax) 1 pkt BID NG 08/27/21 16:35 08/27/21 16:52 Promethazine HCl (PHENERGAN INJection) 12.5 mg Q6HP PRN IV NAUSEA 08/15/21 23:55 08/25/21 18:20 Rifaximin (Xifaxan) 550 mg BID PO 08/10/21 21:00 08/27/21 22:00 Sodium Chloride 1,000 ml @ 120 mls/hr Q8H20M IV 08/11/21 14:30 08/11/21 22:49 DC 08/11/21 14:57 Sodium Chloride (Saline Lock Flush) 10 ml ASDIRECTED PRN IV SEE LABEL COMMENTS 08/19/21 18:50 08/23/21 18:57 Sodium Chloride (Saline Lock Flush) 10 ml PICC IV 08/20/21 06:00 08/27/21 16:52 Spironolactone (Aldactone) 50 mg QHS PO 08/13/21 21:00 08/26/21 12:39 DC 08/25/21 22:15 Sucralfate (Carafate) 1 gm ACHS PO 08/10/21 21:00 08/27/21 22:01 Tizanidine HCl (Zanaflex) 4 mg TID PRN PO SPASMS 08/10/21 18:55 08/27/21 09:47 Torsemide (Demadex) 20 mg BID@0900,1700 PO 08/11/21 09:00 08/16/21 07:10 DC 08/14/21 17:59 Torsemide (Demadex) 50 mg BID@09,17 PO 08/24/21 17:00 08/26/21 12:39 DC 08/25/21 17:03 Vitamin D (Vitamin D) 1,000 units QHS PO 08/10/21 21:00 08/27/21 22:01 Allergies Coded Allergies: No Known Drug Allergies (Verified Allergy, Unknown, 01/19/21) Assessment/Plan Date Seen The patient was seen on 08/27/21 in AM at bedside. Plan / VTE VTE Prophylaxis Ordered?: No Plan Orders past 48 Hours Orders Cbc With Differential (08/26/21 06:00) Complete Comphrensive Metaboli (08/26/21 06:00) Fingerstick Blood Sugar (08/26/21 00:48) Ammonia (08/26/21 06:00) Fingerstick Blood Sugar (08/26/21 05:17) Lactulose Syrup (Cephulac) (08/26/21 08:00) Ammonia (08/27/21 00:00) Ammonia (08/27/21 12:00) Ammonia (08/28/21 00:00) Ammonia (08/28/21 12:00) Ammonia (08/29/21 00:00) Ammonia (08/29/21 12:00) Ammonia (08/30/21 00:00) Ammonia (08/30/21 12:00) Ammonia (08/31/21 00:00) Lactulose Syrup (Cephulac) (08/26/21 08:25) Transfer (In House) (08/26/21 08:41) Cbc With Differential (08/27/21 06:00) Cbc With Differential (08/28/21 06:00) Cbc With Differential (08/29/21 06:00) Cbc With Differential (08/30/21 06:00) Cbc With Differential (08/31/21 06:00) Cbc With Differential (09/01/21 06:00) Cbc With Differential (09/02/21 06:00) Complete Comphrensive Metaboli (08/27/21 06:00) Complete Comphrensive Metaboli (08/28/21 06:00) Complete Comphrensive Metaboli (08/29/21 06:00) Complete Comphrensive Metaboli (08/30/21 06:00) Complete Comphrensive Metaboli (08/31/21 06:00) Complete Comphrensive Metaboli (09/01/21 06:00) Complete Comphrensive Metaboli (09/02/21 06:00) Transfuse Packed Cells (08/26/21 10:27) Packed Cells (08/26/21 10:27) Ns (Nacl 0.9%) (08/26/21 10:30) Type & Screen (08/26/21 10:27) Hemoglobin & Hematocrit (08/26/21 12:00) Prothrombin Time Profile\Inr (08/26/21 12:00) Pt & Aptt (08/26/21 12:00) Insert Ng Tube (08/26/21 10:46) Portable Chest X-Ray (08/26/21 12:11) Fingerstick Blood Sugar (08/26/21 12:12) Urinary Catheter DOCUMENT BID (08/26/21 12:40) Lactulose Syrup (Cephulac) (08/26/21 13:00) Hemoglobin & Hematocrit (08/26/21 16:30) Lactulose Syrup (Cephulac) (08/26/21 17:00) Fsbs Q6h (Fingerstick) Q6H (08/26/21 16:18) Insulin Lispro (Humalog Insulin) (08/26/21 18:00) D5w/0.45% Sodium Chloride (Dextrose 5%/ (08/26/21 16:25) Potassium Phosphate Monobasic (K-Phos Or (08/26/21 18:00) Hemoglobin & Hematocrit (08/26/21 22:00) Ammonia (08/26/21 17:11) Fingerstick Blood Sugar (08/26/21 18:17) Magnesium Level (08/27/21 06:00) Phosphorous Level (08/27/21 06:00) Fingerstick Blood Sugar (08/27/21 00:17) Fingerstick Blood Sugar (08/27/21 11:45) Mri-Brain Without Contrast (08/27/21 16:23) Prothrombin Time Profile\Inr (08/28/21 06:00) Partial Thromboplastin Time (08/28/21 06:00) Polyethylene Glycol (Miralax) (08/27/21 16:35) Fingerstick Blood Sugar (08/27/21 16:49) Magnesium Level (08/28/21 06:00) Phosphorous Level (08/28/21 06:00) Plan Text 1. Acute Renal Failure on CKD3: Last HD on 08/18/21.Restarted Midodrine after NGT. Diuretics on hold due to decreased PO intake. IVF being given due to decreased PO intake. 2. Hepatic encephalopathy: Persistent. she is likely having GI bleed again. Ammonia improving. 3. Cirrhosis with recurrent ascites:S/P IV lasix drip. Oral torsemide stopped due to encephalopathy and decreased PO intake. 4. Upper GI Bleed: S/p EGD with laser+ clipping of multiple bleeding sites. transfuse PRN for Hb<8. 5. HFpEF, Anasarca: Responded to Lasix drip,Oral diuretic stopped due to encephalopathy. 6.Nutrition: Encephalopathic and not eating, currently on IVF. Stop IVF if tube feed is started. Poor overall prognosis due to recurrent GI bleed, Hepatic cirrhosis and ascites. Recurrent AIDA. WILFRID GUPTA MD Aug 27, 2021 23:17
[2021-08-28 04:00] VITALS: BP 97/57
[2021-08-28] MEDS: SODIUM CHLORIDE 0.9% INJ 10 ML SYR IV SCH ×2 (05:47→17:40)
[2021-08-28] MEDS: CIPROFLOXACIN 250MG TAB PO SCH (05:48)
[2021-08-28] MEDS: LEVOTHYROXINE 25MCG TABLET (0.025MG) PO SCH (05:48)
[2021-08-28] MEDS: OCTREOTIDE ACETATE 100MCG/ML VIAL **IV ADMINISTRATION ONLY SC SCH ×3 (05:48→21:12)
[2021-08-28 06:17] LABS: BASO # 0.1 10^3/uL (0.0-0.2); EOS # 0.5 10^3/uL (0.0-0.5); EOS % 8.1 % (0.0-3.0); HEMATOCRIT 26.4 % (36.0-47.0); HEMOGLOBIN 8.3 g/dl (12.0-15.5); LYMPH # 1.4 10^3/uL (1.5-5.0); LYMPH % 23.6 % (24.0-44.0); MEAN CORPUSCULAR HEMOGLOBIN 30.5 pg (27.0-33.0); MEAN CORPUSCULAR HGB CONC 31.4 g/dl (32.0-36.5); MEAN CORPUSCULAR VOLUME 97.1 fl (80.0-96.0); MONO # 0.9 10^3/uL (0.0-0.8); MONO % 15.2 % (2.0-8.0); NEUTROPHILS # 3.2 10^3/uL (1.5-8.5); NEUTROPHILS % 52.1 % (36.0-66.0); PLATELET COUNT, AUTOMATED 141 10^3/uL (150-450); RED BLOOD COUNT 2.72 10^6/uL (4.00-5.40); WHITE BLOOD COUNT 6.1 10^3/uL (4.0-10.0)
[2021-08-28 06:34] LABS: INR 1.66
[2021-08-28 06:35] LABS: PARTIAL THROMBOPLASTIN TIME 45.6 SECONDS (25.9-37.0)
[2021-08-28 07:15] LABS: ALBUMIN 1.5 GM/DL (3.2-5.2); BILIRUBIN,TOTAL 1.1 MG/DL (0.2-1.0); CALCIUM LEVEL 7.9 MG/DL (8.8-10.2); CREATININE FOR GFR 2.16 MG/DL (0.55-1.30); GLOMERULAR FILTRATION RATE 24.4 (>45); MAGNESIUM LEVEL 2.3 MG/DL (1.8-2.4); POTASSIUM SERUM 3.8 MEQ/L (3.5-5.1); TOTAL PROTEIN 4.8 GM/DL (6.4-8.2)
[2021-08-28 08:00] VITALS: BP 111/53
[2021-08-28] MEDS: PANTOPRAZOLE 40MG VIAL (C9113 PER 1) IV SCH ×2 (08:27→21:14)
[2021-08-28] MEDS: MAGNESIUM OXIDE 400MG TAB (MAG-OX) PO SCH ×3 (08:28→21:12)
[2021-08-28] MEDS: MIDODRINE 5 MG TAB PO SCH ×3 (08:28→16:25)
[2021-08-28] MEDS: MIRALAX *UNIT DOSE* 17GM PACKET NG SCH ×2 (08:28→21:13)
[2021-08-28] MEDS: SUCRALFATE 1 GM TAB PO SCH ×4 (08:28→21:13)
[2021-08-28] MEDS: rifAXIMin 550 MG TAB (XIFAXAN) PO SCH ×2 (08:28→21:13)
[2021-08-28] MEDS: GABAPENTIN 100 MG CAP PO SCH (08:29)
[2021-08-28 12:00] VITALS: BP 121/57
[2021-08-28] MEDS: tiZANidine 4 MG TAB PO PRN ×2 (13:16→23:15)
--- NOTE | 2021-08-28 15:35 | IPN ---
NEPHROLOGY PROGRESS NOTE DATE: 08/28/2021 SUBJECTIVE: Christina is seen and examined this morning at the bedside. She is looking a lot better today. She is oriented. She was on the phone with her significant other (Meryl) when I entered the room. She is oriented x3. She is tolerating a clear liquid diet. She is off of IV fluid. Her renal function has improved. Her urine output is also improving. She is afebrile and hemodynamically stable. OBJECTIVE: PHYSICAL EXAMINATION: VITAL SIGNS: Temperature 97.4, pulse 67, respiratory rate 18, blood pressure 121/57, saturating 97% on room air. INTAKE AND OUTPUT: Intake yesterday was 1.2 liters. None of it was oral. Urine output yesterday was one liter. Weight in the bed scale today is 85 kg which is increased from prior day. GENERAL APPEARANCE: The patient is seen sitting up in bed, drinking clear liquids, awake and alert, talking on the phone with her significant other, oriented x3. HEENT: Tongue is moist. NECK: Supple. HEART: Sounds are regular, S1, S2, no murmur. LUNGS: Clear to auscultation. No crackles or rales. ABDOMEN: Soft and nontender. There is some abdominal wall edema. GENITOURINARY: Teixeira catheter. EXTREMITIES: 1-2+ edema of the lower extremities. NEUROLOGICAL: She is oriented x3, interactive, cooperative with physical exam. SKIN: Shows some pallor as well. LABORATORY STUDIES: Sodium 138, potassium 3.8, bicarbonate 28, BUN 57, creatinine 2.1, down from 2.4 yesterday. T-bili 1.1, hemoglobin 8.3, platelet count 141. INPATIENT MEDICATIONS: The patient's medications were reviewed by myself. She is off of D-5W with half normal saline that was previously running at 60 mL per hour. She continues on Allopurinol, vitamin C, Atorvastatin, Ciprofloxacin 250 mg p.o. daily. I stopped the Gabapentin. She is on insulin sliding scale, Lactulose 40 mL q. 4 hourly, Levothyroxine 25 mcg p.o. daily, Magnesium 400 mg p.o. three times daily, Midodrine 15 mg p.o. three times daily, Octreotide 100 mcg subcutaneously q. 8 hourly, Oxycodone p.r.n., Protonix 40 mg IV twice daily, Miralax twice daily, Rifaximin 550 mg p.o. twice daily, Carafate one gram p.o. with meals and at bedtime, Zanaflex p.r.n., vitamin D 1,000 units p.o. q. h.s. PROBLEMS: 1. Acute kidney injury superimposed on chronic kidney disease stage 3 in the setting of cirrhosis, hypotension and severe recent GI bleed. She did require temporary hemodialysis last dialysis was on August 18. There was a plan to remove her permacath, however her creatinine mitchell the past few days, up to 2.4 yesterday when she was altered and now her mentation has improved. She is tolerating clear liquids. Her urine output has improved. Her creatinine is down to 2.1. If there is further improvement in creatinine tomorrow, we will arrange to have the permacath removed on Monday. Diuretics are still on hold at this time, but IV fluids have been stopped as the patient is now tolerating p.o. 2. Status post hepatic encephalopathy ammonia level is now less than 60. She was oriented x3 at the time of my visit. She is on a clear liquid diet. IV fluids have been stopped. She is on Lactulose and Rifaximin, managed by the Primary Team. 3. Recent upper GI bleed and history of recurrent GI bleeds she received a total of 9 units of packed blood cells on this admission. Last transfusion was on August 24 and hemoglobin has been 8's to 9's the past several days. She is on Protonix and Carafate and further management is as per GI. 4. Non alcoholic cirrhosis - The patient is being worked up for liver transplant outpatient. She has a home diuretic regimen of Torsemide and Spironolactone. Diuretics are presently held at this time and will be restarted when indicated. For now she continues on Midodrine and Octreotide. She did have a paracentesis with 2.7 liters removed on August 20. 5. Chronic hypotension in the setting of cirrhosis - The patient continues on high dose Midodrine 15 mg p.o. three times daily. 6. Fluid overload secondary to cirrhosis, ascites, diastolic congestive heart failure and hypoalbuminemia. Serum albumin is only 1.5. She did receive IV fluids the past couple of days while she was encephalopathic. She is on a clear liquid diet now. IV fluids have been stopped. If her renal function continues to improve, we will likely resume diuretics tomorrow. 7. Hypomagnesemia she is on a magnesium supplementation and magnesium levels are acceptable.
--- NOTE | 2021-08-28 15:58 | IPNPDOC ---
Subjective Date Seen The patient was seen on 08/28/21. Subjective Chief Complaint/HPI Patient was seen and examined at bedside this morning. She is awake alert and oriented x3. She had no new complaints, and there is resolution of her left wrist control. She denies headaches, blurry vision, shortness of breath, chest pain, abdominal pain, nausea, vomiting, problems with urination or bowel movements. Objective Physical Examination Other physical findings General: Lying in bed, obtunded Head/Neck/Throat: Trachea midline, mucous membranes moist Eyes: Sclera anicteric, no erythema or discharge appreciated bilaterally Thorax: Normal respiratory effort on room air, bibasilar crackles appreciated Cardiovascular: Irregularly irregular, normal S1, S2, 2+ lower extremity edema Abdomen: Bowel sounds present, soft/nontender/nondistended Genitourinary: No CVA tenderness, Teixeira draining yellow urine Skin: Warm, dry, generalized pallor Neurologic: Awake, alert, oriented x3. Strength in the upper and lower extremities is 5/5. Assessment /Plan Assessment #Hepatic encephalopathy -Improved. Titrate lactulose to 3 bowel movements per day. Continue rifaximin. #GI bleed -Status post 1 units of packed red blood cells. An upper endoscopy done showed Graves' disease with bleeding, continue with Protonix. Octreotide was recommended by gastroenterology and was added on 08/24. -She has had multiple bowel movements that have been bharat/bloody. Plan was for colonoscopy on 08/26 but she was unable to complete her prep overnight due to her mental status. Gastroenterology recommended for IR consult after she had several bowel movements that were bharat in color during the day of 08/26, however there is no IR coverage this week. Gastroenterology plans to scope her 08/30. -H&H remained stable, blood pressure is acceptable. #Acute on chronic kidney disease -Secondary to hepatorenal syndrome. Patient required intermittent dialysis (last dialysis session was 08/18). She has acceptable urine output therefore further dialysis sessions are on hold as per nephrology team. -Appreciate nephrology input #Diastolic CHF -Continue diuretics if renal function continues to improve. #Cirrhosis/End fiona liver disease -Status post paracentesis x2. Considering she is high risk for SBP she was started empirically on ciprofloxacin. -spoke to gi, there is no indication for immediate transfer at this time #Electrolyte abnormality -Hyperkalemia resolved #Type 2 diabetes mellitus -insulin sliding scale, Accu-Cheks, hypoglycemic protocol #Acute L1 compression fracture -She received calcitonin for a total of 3 days -Orthopedic team recommended physical therapy #Hypothyroidism -Continue with levothyroxine #DVT prophylax -Sequential Plan/VTE VTE Prophylaxis Ordered?: No VS, I&O, 24H, Fishbone Vital Signs/I&O Vital Signs Date Time Temp Pulse Resp B/P (MAP) Pulse Ox O2 Delivery O2 Flow Rate FiO2 08/28/21 12:00 97.4 67 18 121/57 (78) 97 Room Air I&O- Last 24 Hours up to 6 AM 08/28/21 05:59 Intake Total 1080 ml Output Total 350 ml Balance 730 ml Laboratory Data 24H LABS Laboratory Tests 2 08/27/21 16:49: Bedside Glucose (Misc Panel) 172H 08/27/21 23:57: Bedside Glucose (Misc Panel) 127H 08/28/21 05:17: Bedside Glucose (Misc Panel) 154H 08/28/21 06:00: Immature Granulocyte % (Auto) 0.0, Neutrophils (%) (Auto) 52.1, Lymphocytes (%) (Auto) 23.6L, Monocytes (%) (Auto) 15.2H, Eosinophils (%) (Auto) 8.1H, Basophils (%) (Auto) 1.0, Neutrophils # (Auto) 3.2, Lymphocytes # (Auto) 1.4L, Monocytes # (Auto) 0.9H, Eosinophils # (Auto) 0.5, Basophils # (Auto) 0.1, Nucleated Red Blood Cells % (auto) 0.0, Prothrombin Time 20.0H, Prothromb Time International Ratio 1.66, Activated Partial Thromboplast Time 45.6H, Anion Gap 7L, Glomerular Filtration Rate 24.4L, Calcium Level 7.9L, Phosphorus Level 3.0, Magnesium Level 2.3, Total Bilirubin 1.1H, Aspartate Amino Transf (AST/SGOT) 50H, Alanine Aminotransferase (ALT/SGPT) 16, Alkaline Phosphatase 152H, Ammonia 56H, Total Pr otein 4.8L, Albumin 1.5L, Albumin/Globulin Ratio 0.5L 08/28/21 12:30: Bedside Glucose (Misc Panel) 204H CBC/BMP Laboratory Tests 08/28/21 06:00 Microbiology Microbiology 08/20/21 Fungal Smear, Received Pending 08/20/21 Fungal Culture, Received Pending 08/20/21 Gram Stain - Final, Complete 08/20/21 Body Fluid Culture - Final, Complete Bacillus Sp., Not Anthracis 08/20/21 Anaerobic Culture - Final, Complete 08/19/21 Blood Culture - Final, Complete NO GROWTH AFTER 5 DAYS 08/19/21 Blood Culture - Final, Complete NO GROWTH AFTER 5 DAYS FRANCES DEVRIES M.D. Aug 28, 2021 15:58
[2021-08-28 16:00] VITALS: BP 95/53
[2021-08-28 20:00] VITALS: BP 100/56
[2021-08-28] MEDS: ASCORBIC ACID 250 MG TAB PO SCH (21:12)
[2021-08-28] MEDS: VITAMIN D 1,000 INTERNATIONAL UNITS TABLET PO SCH (21:12)
[2021-08-28] MEDS: allopurinoL 100 MG TAB PO SCH (21:13)
[2021-08-28] MEDS: ATORVASTATIN 20 MG TAB PO SCH (21:13)
[2021-08-29] VITALS (7 sets, daily range): BP systolic 91–110; BP diastolic 53–62
[2021-08-29] MEDS: LACTULOSE 20 GM/30 ML SYRUP UD NG SCH ×6 (00:55→20:37)
[2021-08-29] MEDS: CIPROFLOXACIN 250MG TAB PO SCH (05:12)
[2021-08-29] MEDS: OCTREOTIDE ACETATE 100MCG/ML VIAL **IV ADMINISTRATION ONLY SC SCH (05:12)
[2021-08-29] MEDS: SODIUM CHLORIDE 0.9% INJ 10 ML SYR IV SCH ×2 (05:12→17:40)
[2021-08-29] MEDS: LEVOTHYROXINE 25MCG TABLET (0.025MG) PO SCH (05:12)
[2021-08-29 05:49] LABS: HEMATOCRIT 24.5 % (36.0-47.0); HEMOGLOBIN 7.8 g/dl (12.0-15.5); MEAN CORPUSCULAR HGB CONC 31.8 g/dl (32.0-36.5); MEAN CORPUSCULAR VOLUME 97.2 fl (80.0-96.0); PLATELET COUNT, AUTOMATED 126 10^3/uL (150-450); RED BLOOD COUNT 2.52 10^6/uL (4.00-5.40); WHITE BLOOD COUNT 4.6 10^3/uL (4.0-10.0)
[2021-08-29 06:08] LABS: MAGNESIUM LEVEL 2.1 MG/DL (1.8-2.4); PHOSPHORUS LEVEL 2.7 MG/DL (2.5-4.9)
[2021-08-29 06:12] LABS: ALBUMIN 1.5 GM/DL (3.2-5.2); BILIRUBIN,TOTAL 0.9 MG/DL (0.2-1.0); CALCIUM LEVEL 7.6 MG/DL (8.8-10.2); CREATININE FOR GFR 1.94 MG/DL (0.55-1.30); GLOMERULAR FILTRATION RATE 27.7 (>45); POTASSIUM SERUM 3.6 MEQ/L (3.5-5.1); TOTAL PROTEIN 4.7 GM/DL (6.4-8.2)
[2021-08-29 06:19] LABS: INR 1.7; PROTHROMBIN TIME 20.4 SECONDS (12.7-14.5)
[2021-08-29 06:49] LABS: BASOPHILS 2 % (0-1); EOSINOPHILS 7 % (0-3); LYMPHOCYTES 20 % (16-44); MONOCYTES 9 % (0-5); NEUTROPHILS 59 % (28-66)
[2021-08-29 06:50] LABS: ANISOCYTOSIS 1+
[2021-08-29 06:51] LABS: PLATELET ESTIMATE DECREASED (NORMAL); SCHISTOCYTES 1+
[2021-08-29 06:52] LABS: SMUDGE CELLS 1+
[2021-08-29] MEDS: rifAXIMin 550 MG TAB (XIFAXAN) PO SCH ×2 (08:04→20:37)
[2021-08-29] MEDS: MIDODRINE 5 MG TAB PO SCH ×3 (08:04→15:04)
[2021-08-29] MEDS: MAGNESIUM OXIDE 400MG TAB (MAG-OX) PO SCH ×3 (08:05→20:38)
[2021-08-29] MEDS: tiZANidine 4 MG TAB PO PRN ×2 (08:05→21:59)
[2021-08-29] MEDS: PANTOPRAZOLE 40MG VIAL (C9113 PER 1) IV SCH ×2 (08:05→20:37)
[2021-08-29] MEDS: MIRALAX *UNIT DOSE* 17GM PACKET NG SCH ×2 (08:05→20:37)
[2021-08-29] MEDS: SUCRALFATE 1 GM TAB PO SCH ×4 (08:05→20:38)
[2021-08-29] MEDS: HumaLOG INSULIN (NovoLOG) PER UNIT SC SCH ×4 (08:06→20:46)
--- NOTE | 2021-08-29 11:24 | IPNPDOC ---
Subjective Date Seen The patient was seen on 08/29/21. Subjective Chief Complaint/HPI Patient was seen and examined at bedside this morning. She was in good spirits and had no new complaints. Other systems 10 point review of system was negative except for what is noted in the HPI Objective Physical Examination Other physical findings General: Lying in bed, obtunded Head/Neck/Throat: Trachea midline, mucous membranes moist Eyes: Sclera anicteric, no erythema or discharge appreciated bilaterally Thorax: Normal respiratory effort on room air, bibasilar crackles appreciated Cardiovascular: Irregularly irregular, normal S1, S2, 2+ lower extremity edema Abdomen: Bowel sounds present, soft/nontender/nondistended Genitourinary: No CVA tenderness, Teixeira draining yellow urine Skin: Warm, dry, generalized pallor Neurologic: Awake, alert, oriented x3. Strength in the upper and lower extremities is 5/5. Assessment /Plan Assessment #Hepatic encephalopathy -Improved. Titrate lactulose to 3 bowel movements per day. Continue rifaximin. #GI bleed -Status post 1 units of packed red blood cells. An upper endoscopy done showed Graves' disease with bleeding, continue with Protonix. Octreotide was recommended by gastroenterology and was added on 08/24, he has been greater than 72 hours now therefore will discontinue. -She has had multiple bowel movements that have been bharat/bloody. Plan was for colonoscopy on 08/26 but she was unable to complete her prep overnight due to her mental status. Gastroenterology recommended for IR consult after she had several bowel movements that were bharat in color during the day of 08/26, however there is no IR coverage this week. Gastroenterology plans to scope her 08/30. -H&H remained stable, blood pressure is acceptable. #Acute on chronic kidney disease -Secondary to hepatorenal syndrome. Patient required intermittent dialysis (last dialysis session was 08/18). She has acceptable urine output and renal function continues to improve. She will likely not require dialysis therefore permacath will be pulled. -Appreciate nephrology input #Diastolic CHF -Resume diuretics. Monitor I's/O and daily weights #Cirrhosis/End fiona liver disease -Status post paracentesis x2. Considering she is high risk for SBP she was started empirically on ciprofloxacin. -spoke to gi, there is no indication for immediate transfer at this time #Electrolyte abnormality -Hyperkalemia resolved #Type 2 diabetes mellitus -insulin sliding scale, Accu-Cheks, hypoglycemic protocol #Acute L1 compression fracture -She received calcitonin for a total of 3 days -Orthopedic team recommended physical therapy #Hypothyroidism -Continue with levothyroxine #DVT prophylax -Sequential Plan/VTE VTE Prophylaxis Ordered?: No VS, I&O, 24H, Fishbone Vital Signs/I&O Vital Signs Date Time Temp Pulse Resp B/P (MAP) Pulse Ox O2 Delivery O2 Flow Rate FiO2 08/29/21 07:51 97.0 51 18 91/53 (66) 95 Room Air I&O- Last 24 Hours up to 6 AM 08/29/21 06:00 Intake Total 1440 ml Output Total 1425 ml Balance 15 ml Laboratory Data 24H LABS Laboratory Tests 2 08/28/21 12:30: Bedside Glucose (Misc Panel) 204H 08/28/21 16:11: Bedside Glucose (Misc Panel) 255H 08/28/21 16:15: Ammonia 45H 08/28/21 21:07: Bedside Glucose (Misc Panel) 241H 08/28/21 23:56: Ammonia 41H 08/29/21 05:27: Neutrophils (%) (Auto) , Nucleated Red Blood Cells % (auto) 0.0, Neutrophils 59, Band Neutrophils 3, Lymphocytes (Manual) 20, Monocytes (Manual) 9H, Eosinophils (Manual) 7H, Basophils (Manual) 2H, Anisocytosis 1+, Schistocytes 1+, Smudge Cells 1+, Platelet Estimate DECREASED, Prothrombin Time 20.4H, Prothromb Time I nternational Ratio 1.70, Anion Gap 6L, Glomerular Filtration Rate 27.7L, Calcium Level 7.6L, Phosphorus Level 2.7, Magnesium Level 2.1, Total Bilirubin 0.9, Aspartate Amino Transf (AST/SGOT) 64H, Alanine Aminotransferase (ALT/SGPT) 19, Alkaline Phosphatase 155H, Total Protein 4.7L, Albumin 1.5L, Albumin/Globulin Ratio 0.5L 08/29/21 07:49: Bedside Glucose (Misc Panel) 160H CBC/BMP Laboratory Tests 08/29/21 05:27 Microbiology Microbiology 08/20/21 Fungal Smear, Received Pending 08/20/21 Fungal Culture, Received Pending 08/20/21 Gram Stain - Final, Complete 08/20/21 Body Fluid Culture - Final, Complete Bacillus Sp., Not Anthracis 08/20/21 Anaerobic Culture - Final, Complete 08/19/21 Blood Culture - Final, Complete NO GROWTH AFTER 5 DAYS 08/19/21 Blood Culture - Final, Complete NO GROWTH AFTER 5 DAYS FRANCES DEVRIES M.D. Aug 29, 2021 11:24
[2021-08-29] MEDS: oxyCODONE 5MG TAB PO PRN ×2 (12:28→22:00)
[2021-08-29] MEDS: SPIRONOLACTONE 25 MG TAB PO SCH (15:05)
--- NOTE | 2021-08-29 15:25 | IPN ---
NEPHROLOGY PROGRESS NOTE DATE: 08/29/2021 SUBJECTIVE: Christina is seen and examined this morning at the bedside. She remained oriented x3 at my visit today and was tolerating oral intake. Laboratory studies show improving renal function. She has also had improving urine output and the plan is to restart diuretics today. The patient has no complaints. OBJECTIVE: PHYSICAL EXAMINATION: VITAL SIGNS: Temperature 97.8, pulse 63, respiratory rate 18, blood pressure 104/53, saturating 95% on room air. INTAKE AND OUTPUT: Intake yesterday was 1.4 liters. Urine output yesterday was 1.4 liters. Bowel movements yesterday were four. Weight in the bed scale today is 87.5 kg which is increased over the past couple of days. GENERAL APPEARANCE: The patient is seen lying in bed with the head of the bed elevated, looks chronically ill, awake, alert, oriented x3, follows simple commands, cooperates with the physical exam, is in no acute distress. HEENT: The extraocular muscles are intact. There is conjunctival pallor. There is pallor of the skin generally. NECK: Jugular veins are mildly elevated. HEART: Sounds are regular, S1, S2. There is no murmur. There is 1-2+ edema of the lower extremities. There is distention of the abdomen. There is ascites in place. LUNGS: Sounds are clear superiorly and diminished at the bases with crackles at the base, but there is no accessory muscle use. The patient is comfortable on room air. GENITOURINARY: Indwelling Teixeira catheter. There is a dialysis catheter present in the right chest wall as well. NEUROLOGICAL: She is oriented x3, cooperative with the physical exam. She moves all four extremities. SKIN: Generalized pallor. LABORATORY STUDIES: White count 4.6, hemoglobin 7.8, platelet count 126. Sodium 137, potassium 3.6, bicarbonate 30, BUN 52, creatinine 1.9, magnesium 2.1, ammonia 69. INPATIENT MEDICATIONS: I started the patient on Lasix 40 mg IV twice daily and Spironolactone 25 mg once daily, first dose to be given today. Her insulin was adjusted by the Primary Team. The remainder medications are unchanged as compared to yesterday. PROBLEMS: 1. Acute kidney injury superimposed on chronic kidney disease stage 3b in the setting of cirrhosis, hypotension and severe recent GI bleeds. She did require temporary hemodialysis, however is now in renal recovery with improving urine output and creatinine is down to 1.9 on the latest labs. Permacath to be discontinued by Vascular Surgery. No further need of dialysis at this point. The patient is hypervolemic and we will get her back on diuretics. She is no longer encephalopathic. She is tolerating oral intake. 2. Non alcohol cirrhosis - The patient is being worked up for liver transplant as an outpatient. She has a home diuretic regimen of Torsemide and Spironolactone. Diuretics were held the past several days because of encephalopathy and other active issues. I am not resuming her on Spironolactone and IV Lasix and we will see how she responds to the diuretics. She continues on Midodrine and she does have some ascites re-accumulated on exam. She had a paracentesis on August 20 with 2.7 liters removed. 3. Recent upper GI bleed and history of recurrent GI bleeds she has received a total of 9 units packed red blood cells on this admission. Last transfusion was on August 24. Hemoglobin today is down to 7.8. I think some of it is hemodilutional given her fluid overload. She is on Protonix and Carafate and we will see if CBC improves with diuretic. Lasix and Spironolactone are being started today. 4. Status post hepatic encephalopathy latest ammonia level is 69. She was oriented at the time of my visit today. She is on Lactulose and Rifaximin managed by the Primary Team. 5. Chronic hypotension in the setting of cirrhosis she continues on Midodrine 15 mg p.o. three times daily. We will see how she tolerates the addition of IV Lasix and Spironolactone.The patient does take Midodrine 15 mg three times daily as an outpatient as well. 7. Fluid overload secondary to cirrhosis, ascites and diastolic congestive heart failure and hypoalbuminemia - The patient is being started on IV Lasix and Spironolactone today. Her most recent albumin level was 1.5. If her blood pressure becomes soft with the diuretics, she will be given more albumin. MTDD
[2021-08-29] MEDS ORDERED: GOLYTELY SOLN 4000 ML BTL PO ONE (17:00)
[2021-08-29] MEDS: FUROSEMIDE 40MG/4ML VIAL (J1940) IV SCH (17:40)
[2021-08-29] MEDS ORDERED: BISACODYL 5 MG TAB PO ONE (20:00)
[2021-08-29] MEDS: VITAMIN D 1,000 INTERNATIONAL UNITS TABLET PO SCH (20:37)
[2021-08-29] MEDS: ATORVASTATIN 20 MG TAB PO SCH (20:38)
[2021-08-29] MEDS: allopurinoL 100 MG TAB PO SCH (20:38)
[2021-08-29] MEDS: ASCORBIC ACID 250 MG TAB PO SCH (20:38)
[2021-08-30] VITALS (12 sets, daily range): BP systolic 88–107; BP diastolic 48–58
[2021-08-30] MEDS: LACTULOSE 20 GM/30 ML SYRUP UD NG SCH ×6 (00:13→21:51)
[2021-08-30] MEDS: CIPROFLOXACIN 250MG TAB PO SCH (05:04)
[2021-08-30] MEDS: LEVOTHYROXINE 25MCG TABLET (0.025MG) PO SCH (05:05)
[2021-08-30] MEDS: SODIUM CHLORIDE 0.9% INJ 10 ML SYR IV SCH ×2 (06:00→18:01)
[2021-08-30 06:04] LABS: HEMATOCRIT 25.7 % (36.0-47.0); HEMOGLOBIN 8.1 g/dl (12.0-15.5); MEAN CORPUSCULAR HEMOGLOBIN 30.7 pg (27.0-33.0); MEAN CORPUSCULAR HGB CONC 31.5 g/dl (32.0-36.5); MEAN CORPUSCULAR VOLUME 97.3 fl (80.0-96.0); PLATELET COUNT, AUTOMATED 123 10^3/uL (150-450); RED BLOOD COUNT 2.64 10^6/uL (4.00-5.40); WHITE BLOOD COUNT 4.4 10^3/uL (4.0-10.0)
[2021-08-30 06:33] LABS: ALBUMIN 1.5 GM/DL (3.2-5.2); CALCIUM LEVEL 7.8 MG/DL (8.8-10.2); CREATININE FOR GFR 1.94 MG/DL (0.55-1.30); GLOMERULAR FILTRATION RATE 27.7 (>45); MAGNESIUM LEVEL 2.2 MG/DL (1.8-2.4); PHOSPHORUS LEVEL 2.9 MG/DL (2.5-4.9); POTASSIUM SERUM 4.1 MEQ/L (3.5-5.1); TOTAL PROTEIN 4.9 GM/DL (6.4-8.2)
[2021-08-30 06:43] LABS: EOSINOPHILS 2 % (0-3); LYMPHOCYTES 34 % (16-44); MONOCYTES 4 % (0-5); NEUTROPHILS 60 % (28-66)
[2021-08-30 06:44] LABS: ANISOCYTOSIS 2+; PLATELET ESTIMATE NORMAL (NORMAL)
[2021-08-30] MEDS: HumaLOG INSULIN (NovoLOG) PER UNIT SC SCH ×4 (09:00→21:00)
[2021-08-30] MEDS: MIRALAX *UNIT DOSE* 17GM PACKET NG SCH ×3 (09:20→21:54)
[2021-08-30] MEDS: rifAXIMin 550 MG TAB (XIFAXAN) PO SCH ×2 (09:22→21:54)
[2021-08-30] MEDS: SUCRALFATE 1 GM TAB PO SCH ×4 (09:22→21:54)
[2021-08-30] MEDS: SPIRONOLACTONE 25 MG TAB PO SCH (09:23)
[2021-08-30] MEDS: MAGNESIUM OXIDE 400MG TAB (MAG-OX) PO SCH ×3 (09:23→21:54)
[2021-08-30] MEDS: MIDODRINE 5 MG TAB PO SCH ×3 (09:25→16:44)
[2021-08-30] MEDS: PANTOPRAZOLE 40MG VIAL (C9113 PER 1) IV SCH ×2 (09:27→21:54)
[2021-08-30] MEDS: FUROSEMIDE 40MG/4ML VIAL (J1940) IV SCH (09:32)
[2021-08-30] MEDS: tiZANidine 4 MG TAB PO PRN ×2 (11:13→21:52)
[2021-08-30] MEDS: oxyCODONE 5MG TAB PO PRN ×2 (11:13→21:52)
--- NOTE | 2021-08-30 11:44 | IPNPDOC ---
VS, I&O, 24H, [facility] Vital Signs/I&O Vital Signs Date Time Temp Pulse Resp B/P (MAP) Pulse Ox O2 Delivery O2 Flow Rate FiO2 08/30/21 11:13 96.1 60 18 96/55 98 Room Air I&O- Last 24 Hours up to 6 AM 08/30/21 06:00 Intake Total 1320 ml Output Total 650 ml Balance 670 ml Laboratory Data 24H LABS Laboratory Tests 2 08/29/21 12:02: Bedside Glucose (Misc Panel) 225H 08/29/21 12:05: Ammonia 69H 08/29/21 17:38: Bedside Glucose (Misc Panel) 195H 08/29/21 20:45: Bedside Glucose (Misc Panel) 233H 08/30/21 05:44: Neutrophils (%) (Auto) , Nucleated Red Blood Cells % (auto) 0.0, Neutrophils 60, Lymphocytes (Manual) 34, Monocytes (Manual) 4, Eosinophils (Manual) 2, Red Blood Cell Morphology , Anisocytosis 2+, Platelet Estimate NORMAL, Anion Gap 6L, Glomerular Filtration Rate 27.7L, Calcium Level 7.8L, Phosphorus Level 2.9, Magnesium Level 2.2, Total Bilirubin 1.0, Aspartate Amino Transf (AST/SGOT) 92H, Alanine Aminotransferase (ALT/SGPT) 28, Alkaline Phosphatase 177H, Ammonia 59H, Total Protein 4.9L, Albumin 1.5L, Albumin/Globulin Ratio 0.4L CBC/BMP Laboratory Tests 08/30/21 05:44 Microbiology Microbiology 08/20/21 Fungal Smear, Received Pending 08/20/21 Fungal Culture, Received Pending 08/20/21 Gram Stain - Final, Complete 08/20/21 Body Fluid Culture - Final, Complete Bacillus Sp., Not Anthracis 08/20/21 Anaerobic Culture - Final, Complete Attending Note Patient for Permacath removal tomorrow in IR. Please make NPO after midnight except meds. SHRADDHA GOMEZ MD Aug 30, 2021 11:44
--- NOTE | 2021-08-30 13:08 | REP ---
INDICATION: re-eval degree of ascites. COMPARISON: None. TECHNIQUE: Four quadrant ultrasound to assess for ascites FINDINGS: All 4 quadrants were scanned along with the midline showing mild to moderate ascites and particularly on the right. IMPRESSION: As above. <Electronically signed by Renzo Aragon > 08/30/21 [id number]
--- NOTE | 2021-08-30 14:34 | IPN ---
PROGRESS NOTE DATE: 08/30/2021 SUBJECTIVE: The patient is seen and examined this morning at the bedside. She remains oriented x3. She offers no complaints except that she is frustrated that she is NPO. She is pending colonoscopy. Nursing staff reports that she has had bharat and brown stools. She was started on diuretics yesterday but her urine output was poor. OBJECTIVE: VITAL SIGNS: Temperature 96.5, pulse 51, respiratory rate 17, blood pressure 96/52, saturating 98% on room air. INTAKE AND OUTPUT: Intake yesterday was 1.6 liters. Urine output yesterday was 750 mL. She had a total of eight bowel movements recorded yesterday. Weight in the bed scale today is not recorded. GENERAL: The patient is seen lying in bed, awake, alert, oriented x3, comfortable, in no distress, chronically ill-appearing. HEENT: The extraocular muscles are intact. There is conjunctival pallor and generalized pallor of the skin. NECK: Jugular veins are mildly elevated. HEART: Sounds are regular, S1, S2. There is no murmur. There is 1+ pitting edema of the lower extremities. ABDOMEN: Ascites present in the abdomen but it is not tense. LUNGS: Diminished breath sounds at the bases but there is no accessory muscle use. She is saturating well on room air. CHEST WALL: Dialysis catheter in right chest wall. GENITOURINARY: Indwelling Teixeira catheter. NEUROLOGICAL: She is oriented x3, cooperative with the physical exam. She moves all four extremities. LABS: Sodium 132, potassium 4.1, bicarbonate 28, BUN 46, creatinine 1.9, magnesium 2.2, ammonia level this morning 59, albumin 1.5, hemoglobin 8.1, platelets 123. INPATIENT MEDICATIONS: 1. Albumin as ordered every 6 hours for eight more doses. 2. She is currently having GoLYTELY bowel prep. Otherwise, there is no change in her medications as compared to yesterday. PROBLEMS: 1. AIDA on CKD stage 3b, borderline stage 4. The patient was started on diuretics yesterday. However, her urine output was suboptimal. Her creatinine is fairly plateau at 1.9. I would continue her on Lasix and Spironolactone but only once the colonoscopy is complete --she is NPO today and having bowel prep, we will hold the diuretics. She is going to have the PermCath removed tomorrow. 2. Fluid overload in the setting of cirrhosis with ascites, hypoalbuminemia (albumin 1.5) and diastolic congestive heart failure. The patient was started on IV Lasix and Spironolactone yesterday. Her urine output was suboptimal. She is NPO today and received bowel prep and planned for colonoscopy. Hold diuretics today. 3. Hypoalbuminemia, further albumin is ordered to help with oncotic pressure and renal perfusion. 4. Anemia in the setting of recent upper GI bleed in this patient with recurrent GI bleeds. I feel that transfusing her one unit of blood may also help with the renal perfusion and one unit PRBC is ordered after colonoscopy today. Nursing staff reports with the bowel prep the patient was having bharat stools. She is on Protonix and Carafate. 5. Non-alcoholic cirrhosis. She has being worked up for liver transplant as an outpatient. She has a home diuretic regimen of Torsemide and Spironolactone. Diuretics were held over the past several days because of encephalopathy and other active issues. Her diuretics were resumed yesterday. However, the patient is NPO today for bowel prep so we will again hold the diuretic. She does have hypervolemia on exam and she is on chronic high dose Midodrine (15 mg three times a day) because of chronic hypotension related to cirrhosis. Her last paracentesis was 10 days ago and we will have a repeat ultrasound to reevaluate the ascitic accumulation. 6. Status post hepatic encephalopathy. She is on Lactulose and Rifaximin managed by the primary team and was oriented today. 7. Chronic hypotension secondary to cirrhosis. Continue Midodrine 15 mg three times a day. She is also going to get albumin today which will hopefully help with blood pressure and renal perfusion. 8. Hypervolemic/hyponatremia, consequence of cirrhosis and hypervolemia. MTDD
--- NOTE | 2021-08-30 14:37 | IPNPDOC ---
Subjective Date Seen The patient was seen on 08/30/21. Subjective Chief Complaint/HPI Patient seen and examined at bedside this morning. She was in good spirits and had no new complaints. She was trying her best to drink the GoLYTELY for her colonoscopy today. She denied headaches, blurry vision, chest pain, palpitations, abdominal pain, nausea, vomiting, problem with urination and bowel movements. She denies focal weakness. Objective Physical Examination Other physical findings General: Lying in bed, obtunded Head/Neck/Throat: Trachea midline, mucous membranes moist Eyes: Sclera anicteric, no erythema or discharge appreciated bilaterally Thorax: Normal respiratory effort on room air, bibasilar crackles appreciated Cardiovascular: Irregularly irregular, normal S1, S2, 2+ lower extremity edema Abdomen: Bowel sounds present, soft/nontender/nondistended Genitourinary: No CVA tenderness, Teixeira draining yellow urine Skin: Warm, dry, generalized pallor Neurologic: Awake, alert, oriented x3. Assessment /Plan Assessment #Hepatic encephalopathy -Improved. Titrate lactulose to 3 bowel movements per day. Continue rifaximin. #GI bleed -Status post 1 units of packed red blood cells. An upper endoscopy done showed Graves' disease with bleeding, continue with Protonix. Octreotide was recommended by gastroenterology and was added on 08/24, he has been greater than 72 hours now therefore will discontinue. -She has had multiple bowel movements that have been bharat/bloody. Plan was for colonoscopy on 08/26 but she was unable to complete her prep overnight due to her mental status. Gastroenterology recommended for IR consult after she had several bowel movements that were bharat in color during the day of 08/26, however there is no IR coverage this week. Gastroenterology plans to scope her 08/30. -H&H remained stable, blood pressure is acceptable. #Acute on chronic kidney disease -Secondary to hepatorenal syndrome. -Patient required intermittent dialysis (last dialysis session was 08/18). She has acceptable urine output and renal function is stable. She will likely not require dialysis therefore permacath was pulled on 08/30. -Appreciate nephrology input #Diastolic CHF -Continue with diuretics with holding parameters. Monitor I's/O and daily weights #Cirrhosis/End fiona liver disease -Status post paracentesis x2. Considering she is high risk for SBP she was started empirically on ciprofloxacin. -spoke to gi, there is no indication for immediate transfer at this time #Chronic hypotension -Started on midodrine 15 mg 3 times daily. #Electrolyte abnormality -Hyperkalemia resolved #Type 2 diabetes mellitus -insulin sliding scale, Accu-Cheks, hypoglycemic protocol #Acute L1 compression fracture -She received calcitonin for a total of 3 days -Orthopedic team recommended physical therapy #Hypothyroidism -Continue with levothyroxine #DVT prophylax -Sequential Plan/VTE VTE Prophylaxis Ordered?: No VS, I&O, 24H, Fishbone Vital Signs/I&O Vital Signs Date Time Temp Pulse Resp B/P (MAP) Pulse Ox O2 Delivery O2 Flow Rate FiO2 08/30/21 13:25 96.0 50 18 107/50 98 Room Air I&O- Last 24 Hours up to 6 AM 08/30/21 06:00 Intake Total 1320 ml Output Total 650 ml Balance 670 ml Laboratory Data 24H LABS Laboratory Tests 2 08/29/21 17:38: Bedside Glucose (Misc Panel) 195H 08/29/21 20:45: Bedside Glucose (Misc Panel) 233H 08/30/21 05:44: Neutrophils (%) (Auto) , Nucleated Red Blood Cells % (auto) 0.0, Neutrophils 60, Lymphocytes (Manual) 34, Monocytes (Manual) 4, Eosinophils (Manual) 2, Red Blood Cell Morphology , Anisocytosis 2+, Platelet Estimate NORMAL, Anion Gap 6L, Glomerular Filtration Rate 27.7L, Calcium Level 7.8L, Phosphorus Level 2.9, Magnesium Level 2.2, Total Bilirubin 1.0, Aspartate Amino Transf (AST/SGOT) 92H, Alanine Aminotransferase (ALT/SGPT) 28, Alkaline Phosphatase 177H, Ammonia 59H, Total Protein 4.9L, Albumin 1.5L, Albumin/Globulin Ratio 0.4L 08/30/21 13:01: Coronavirus (COVID-19)(PCR) NEGATIVE 08/30/21 13:04: Bedside Glucose (Misc Panel) 199H CBC/BMP Laboratory Tests 08/30/21 05:44 Microbiology Microbiology 08/20/21 Fungal Smear, Received Pending 08/20/21 Fungal Culture, Received Pending 08/20/21 Gram Stain - Final, Complete 08/20/21 Body Fluid Culture - Final, Complete Bacillus Sp., Not Anthracis 08/20/21 Anaerobic Culture - Final, Complete FRANCES DEVRIES M.D. Aug 30, 2021 14:37
[2021-08-30] MEDS: SODIUM CHLORIDE 0.9% INJ 10 ML SYR IV PRN (15:34)
[2021-08-30] MEDS ORDERED: GOLYTELY SOLN 4000 ML BTL PO ONE (18:05)
[2021-08-30] MEDS: VITAMIN D 1,000 INTERNATIONAL UNITS TABLET PO SCH (21:53)
[2021-08-30] MEDS: ATORVASTATIN 20 MG TAB PO SCH (21:53)
[2021-08-30] MEDS: ASCORBIC ACID 250 MG TAB PO SCH (21:53)
[2021-08-30] MEDS: allopurinoL 100 MG TAB PO SCH (21:54)
[2021-08-31] VITALS (40 sets, daily range): BP systolic 80–124; BP diastolic 43–59
[2021-08-31] MEDS: LACTULOSE 20 GM/30 ML SYRUP UD NG SCH ×6 (01:00→21:38)
[2021-08-31] MEDS ORDERED: MIDODRINE 5 MG TAB PO ONE (01:45)
[2021-08-31 05:32] LABS: BASO % 1.3 % (0.0-1.0); EOS # 0.3 10^3/uL (0.0-0.5); HEMATOCRIT 26.4 % (36.0-47.0); HEMOGLOBIN 8.6 g/dl (12.0-15.5); LYMPH # 0.7 10^3/uL (1.5-5.0); LYMPH % 23.7 % (24.0-44.0); MEAN CORPUSCULAR HEMOGLOBIN 30.6 pg (27.0-33.0); MEAN CORPUSCULAR HGB CONC 32.6 g/dl (32.0-36.5); MONO # 0.4 10^3/uL (0.0-0.8); MONO % 14.1 % (2.0-8.0); NEUTROPHILS # 1.6 10^3/uL (1.5-8.5); NEUTROPHILS % 52.6 % (36.0-66.0); PLATELET COUNT, AUTOMATED 109 10^3/uL (150-450); RED BLOOD COUNT 2.81 10^6/uL (4.00-5.40); WHITE BLOOD COUNT 3.1 10^3/uL (4.0-10.0)
[2021-08-31] MEDS: CIPROFLOXACIN 250MG TAB PO SCH (05:53)
[2021-08-31] MEDS: LEVOTHYROXINE 25MCG TABLET (0.025MG) PO SCH (05:53)
[2021-08-31] MEDS: SODIUM CHLORIDE 0.9% INJ 10 ML SYR IV SCH ×2 (05:54→18:59)
[2021-08-31 05:57] LABS: ALBUMIN 1.9 GM/DL (3.2-5.2); BILIRUBIN,TOTAL 1.6 MG/DL (0.2-1.0); CALCIUM LEVEL 7.3 MG/DL (8.8-10.2); CREATININE FOR GFR 2.06 MG/DL (0.55-1.30); GLOMERULAR FILTRATION RATE 25.8 (>45); POTASSIUM SERUM 3.8 MEQ/L (3.5-5.1); TOTAL PROTEIN 5.2 GM/DL (6.4-8.2)
[2021-08-31] MEDS: MIRALAX *UNIT DOSE* 17GM PACKET NG SCH ×2 (09:04→21:00)
[2021-08-31] MEDS: MIDODRINE 5 MG TAB PO SCH ×3 (09:06→17:15)
[2021-08-31] MEDS: SUCRALFATE 1 GM TAB PO SCH ×4 (09:06→21:37)
[2021-08-31] MEDS: rifAXIMin 550 MG TAB (XIFAXAN) PO SCH ×2 (09:06→21:37)
[2021-08-31] MEDS: PANTOPRAZOLE 40MG VIAL (C9113 PER 1) IV SCH ×2 (09:07→21:37)
[2021-08-31] MEDS: MAGNESIUM OXIDE 400MG TAB (MAG-OX) PO SCH ×3 (09:07→21:37)
[2021-08-31] MEDS: HumaLOG INSULIN (NovoLOG) PER UNIT SC SCH ×4 (09:26→21:00)
[2021-08-31] MEDS: SODIUM CHLORIDE 0.9% INJ 10 ML SYR IV PRN ×2 (10:01→13:26)
[2021-08-31] MEDS: OCTREOTIDE ACETATE 100MCG/ML VIAL **IV ADMINISTRATION ONLY SC SCH ×2 (16:13→21:37)
[2021-08-31] MEDS ORDERED: NOREPINEPHRINE BITARTRATE 8 MG in D5W 492 ML IV SCH ×2 (17:00→18:00)
[2021-08-31] MEDS: FUROSEMIDE 40MG/4ML VIAL (J1940) IV SCH (17:14)
--- NOTE | 2021-08-31 18:39 | IPNPDOC ---
Date Seen The patient was seen on 08/31/21. Progress Note SUBJECTIVE: Worsening hypotension despite 3 albumin, worsening renal failure. She vomited multiple times over the evening trying to drink GoLYTELY for colonoscopy. Discussed with GI today and decision was made to potentially try again on 09/03/21 but she will need an NG tube placed prior. Due to persistent hypotension patient was moved to ICU and levophed was started. Discussed that he case in great detail with nephrology, who reached out to the patient's synchronizer in [place]. No callback was given to myself or her from their office. The patient denied chest pain, chest pain, palpitations, abdominal pain, nausea, vomiting, problem with urination and bowel movements. OBJECTIVE: Physical Examination VS: please see below General: Lying in bed, obtunded Head/Neck/Throat: Trachea midline, mucous membranes moist Eyes: Sclera anicteric, no erythema or discharge appreciated bilaterally Thorax: Normal respiratory effort on room air, bibasilar crackles appreciated Cardiovascular: Irregularly irregular, normal S1, S2, 2+-+3 lower extremity edema up to lower abd CHEST: permacath in right upper chest Abdomen: Bowel sounds present, soft/nontender/nondistended Genitourinary: No CVA tenderness, Teixeira draining yellow urine Skin: Warm, dry, generalized pallor Neurologic: Awake, alert, oriented x3. LABS: Please see below MICRO: Please see below ASSESSMENT: 66-year-old female with extensive past medical history including chronic renal disease, liver disease admitted for hepatic encephalopathy, GI bleed and worsening hepatorenal syndrome. PLAN: #Hypotension likely 2/2 to worsening hepatorenal syndrome -S/p 3 albumin today, total 11 this admission and midodrine TID, poor u/o -Starting on levophed today to see if this improves BP, renal o/p -Monitor in ICU #AIDA on CKD stage IIIB, borderline stage 4 -S/p intermittent dialysis early in admission -Cr worsened today, poor urine o/p in presence of hepatorenal syndrome -On levophed now to see if u/o increases -HOlding off on lasix gtt for now, c/w current regimen of lasix and spironolactone -Keeping permacath in event that she needs dialysis again -Nephro following closely #Non-alcoholic liver cirrhosis with hepatorenal syndrome -resolved hepatic encephalopathy, ammonia waxing and waning -Follows with Dr. Seymour, [facility], hepatology. Not on transplant list -Diuretics which were initially held, were resumed 08/29/21 and with little improvement of u/o. -S/p paracentesis x2 this admission, multiple albumin infusions -Repeat US done -MELD score increased. Prior hospitalist spoke with [facility] who spoke with synchronizer who did not recommend transfer at that time. Called Dr. Seymour, left message to call me back but never received call back today. -GI following here -Currently on levophed to see if this improves u/o -C/w other meds as ordered , empiric ciprofloxacin #Fluid overload in the setting of cirrhosis with ascites, hypoalbuminemia (albumin 1.5) and diastolic congestive heart failure. -Hoping to see pressors increase u/o -If not lasix gtt as mentioned above -Low salt diet, c/w diuretics above #GI bleed -H/H currently stable. S/p 10 PRBC this admission -No dark stools or BRBPR -Could not tolerate colonoscopy prep over past 2 days -Cancelled colonoscopy for now and will attempt again for 09/03/21, will need NG tube placed day prior to begin prep -An upper endoscopy done showed Graves' disease with bleeding -Protonix, carafate, S/p tx with octreotide -CBC daily, GI consulted and following #Anemia in the setting of recent upper GI bleed -H/H stable -See above -Protonix, carafate #Diastolic CHF -Continue with diuretics with holding parameters. Monitor I's/O and daily weights #Electrolyte abnormality (hyponatremia, hypochloridemia)likely 2/2 to hepatorenal syndrome -Monitor with daily labs -Nephro watching also #Type 2 diabetes mellitus -BS >300 -Started levemir. C/w insulin sliding scale, Accu-Cheks, hypoglycemic protocol #Acute L1 compression fracture -She received calcitonin for a total of 3 days -Orthopedic team recommended physical therapy #Hypothyroidism -Continue with levothyroxine #DVT prophylax -SCD RESOLVED: #Hepatic encephalopathy DISPOSITION: Attempted to contact synchronizer to see if he would recommend tx at this time, prior hospitalist states that it was not recommended 1.5 wks ago. Condition has worsened. Will call again in the AM to see if can get a hold of him. Compliance Examiner (Dr. Мария Gleason) also left message for Dr. Ruvalcaba to call her as well. Currently inpatient status. VS, I&O, 24H, Fishbone Vital Signs/I&O Vital Signs Date Time Temp Pulse Resp B/P (MAP) Pulse Ox O2 Delivery O2 Flow Rate FiO2 08/31/21 18:13 97.1 51 16 86/46 93 Room Air 2.0 96 I&O- Last 24 Hours up to 6 AM 08/31/21 06:00 Intake Total 5810.0 ml Output Total 575 ml Balance 5235.0 ml Laboratory Data 24H LABS Laboratory Tests 2 08/30/21 20:18: Bedside Glucose (Misc Panel) 255H 08/31/21 05:00: Immature Granulocyte % (Auto) 0.3, Neutrophils (%) (Auto) 52.6, Lymphocytes (%) (Auto) 23.7L, Monocytes (%) (Auto) 14.1H, Eosinophils (%) (Auto) 8.0H, Basophils (%) (Auto) 1.3H, Neutrophils # (Auto) 1.6, Lymphocytes # (Auto) 0.7L, Monocytes # (Auto) 0.4, Eosinophils # (Auto) 0.3, Basophils # (Auto) 0.0, Nucleated Red Blood Cells % (auto) 0.0, Anion Gap 7L, Glomerular Filtration Rate 25.8L, Calcium Level 7.3L, Phosphorus Level 3.0, Magnesium Level 2.0, Total Bilirubin 1.6#H, Aspartate Amino Transf (AST/SGOT) 71H, Alanine Aminotransferase (ALT/SGPT) 26, Alkaline Phosphatase 166H, Ammonia 91H, Total Protein 5.2L, Albumin 1.9#L, Albumin/Globulin Ratio 0.6L 08/31/21 09:19: Bedside Glucose (Misc Panel) 274H 08/31/21 12:30: Bedside Glucose (Misc Panel) 159H 08/31/21 17:24: Bedside Glucose (Misc Panel) 111 CBC/BMP Laboratory Tests 08/31/21 05:00 Meghana Negro MD Aug 31, 2021 18:39
[2021-08-31] MEDS ORDERED: LEVEMIR (INSULIN DETEMIR) 1 UNITS/0.01ML SC SCH (21:00)
[2021-08-31] MEDS: ASCORBIC ACID 250 MG TAB PO SCH (21:37)
[2021-08-31] MEDS: ATORVASTATIN 20 MG TAB PO SCH (21:38)
[2021-08-31] MEDS: allopurinoL 100 MG TAB PO SCH (21:38)
[2021-08-31] MEDS: VITAMIN D 1,000 INTERNATIONAL UNITS TABLET PO SCH (21:38)
[2021-08-31] MEDS: oxyCODONE 5MG TAB PO PRN (22:38)
[2021-08-31] MEDS: tiZANidine 4 MG TAB PO PRN (22:38)
[2021-08-31] MEDS ORDERED: FUROSEMIDE injection 250 MG in D5W 225 ML IV SCH ×2 (23:30)
[2021-09-01] VITALS (48 sets, daily range): BP systolic 88–113; BP diastolic 45–58
[2021-09-01] MEDS: LACTULOSE 20 GM/30 ML SYRUP UD NG SCH ×6 (01:08→21:03)
[2021-09-01] MEDS: CIPROFLOXACIN 500MG TABLET PO SCH (06:07)
[2021-09-01] MEDS: OCTREOTIDE ACETATE 100MCG/ML VIAL **IV ADMINISTRATION ONLY SC SCH (06:07)
[2021-09-01] MEDS: LEVOTHYROXINE 25MCG TABLET (0.025MG) PO SCH (06:07)
[2021-09-01] MEDS: SODIUM CHLORIDE 0.9% INJ 10 ML SYR IV SCH ×2 (06:07→17:27)
[2021-09-01 06:29] LABS: BASO % 0.4 % (0.0-1.0); EOS # 0.2 10^3/uL (0.0-0.5); EOS % 2.3 % (0.0-3.0); HEMATOCRIT 27.6 % (36.0-47.0); LYMPH # 1.1 10^3/uL (1.5-5.0); LYMPH % 11.5 % (24.0-44.0); MEAN CORPUSCULAR HEMOGLOBIN 30.9 pg (27.0-33.0); MEAN CORPUSCULAR HGB CONC 32.6 g/dl (32.0-36.5); MEAN CORPUSCULAR VOLUME 94.8 fl (80.0-96.0); MONO # 0.8 10^3/uL (0.0-0.8); MONO % 8.4 % (2.0-8.0); NEUTROPHILS # 7.7 10^3/uL (1.5-8.5); NEUTROPHILS % 76.9 % (36.0-66.0); PLATELET COUNT, AUTOMATED 156 10^3/uL (150-450); RED BLOOD COUNT 2.91 10^6/uL (4.00-5.40)
[2021-09-01 06:54] LABS: ALBUMIN 2.2 GM/DL (3.2-5.2); BILIRUBIN,TOTAL 1.8 MG/DL (0.2-1.0); CALCIUM LEVEL 7.9 MG/DL (8.8-10.2); CREATININE FOR GFR 2.61 MG/DL (0.55-1.30); GLOMERULAR FILTRATION RATE 19.6 (>45); POTASSIUM SERUM 3.9 MEQ/L (3.5-5.1); TOTAL PROTEIN 5.2 GM/DL (6.4-8.2)
[2021-09-01] MEDS: PANTOPRAZOLE 40MG VIAL (C9113 PER 1) IV SCH ×2 (08:13→21:04)
[2021-09-01] MEDS: rifAXIMin 550 MG TAB (XIFAXAN) PO SCH ×2 (08:14→21:03)
[2021-09-01] MEDS: SUCRALFATE 1 GM TAB PO SCH ×4 (08:14→21:03)
[2021-09-01] MEDS: MAGNESIUM OXIDE 400MG TAB (MAG-OX) PO SCH ×3 (08:14→21:03)
[2021-09-01] MEDS: MIDODRINE 5 MG TAB PO SCH ×3 (08:14→16:34)
[2021-09-01] MEDS: HumaLOG INSULIN (NovoLOG) PER UNIT SC SCH ×4 (08:15→21:00)
--- NOTE | 2021-09-01 11:57 | IPN ---
NEPHROLOGY PROGRESS NOTE DATE: 08/31/2021 SUBJECTIVE: Ms. Ngo is seen and examined this morning at the bedside. She has not been doing well. She could not tolerate the bowel prep for the colonoscopy. Her blood pressures have been poor. Systolic has been in the 80s and 90s overnight. Urine output is sluggish, only 675 mL in the past 24 hours and her ammonia level has risen to 91 today. She was oriented, but I found her slower to respond as compared to yesterday and she needed repeat prompting. Patient is hypervolemic on exam. PHYSICAL EXAMINATION: VITAL SIGNS: Temperature 97.1, pulse 50, respiratory rate 19, blood pressure 94/50, saturating 97% on room air. INTAKE AND OUTUPT: Intake yesterday was 3.6 liters. Urine output was 675 mL. Weight in the bed scale is 75 kg. GENERAL: Patient was seen lying in bed, drowsy but arousable, required repeated prompting, but then did answer questions appropriately, was somewhat slower to respond than yesterday. HEENT: Tongue is moist. NECK: Supple. Jugular veins are elevated. HEART SOUNDS: Bradycardic and regular. S1, S2. There is a tunneled hemodialysis catheter in the right chest wall. LUNGS: Diminished breath sounds at the bases, but no rales or wheeze. ABDOMEN: Soft. There is ascites that has accumulated and has increased. GENITOURINARY: Teixeira catheter with small amount of urine in the bag. EXTREMITIES: Show 1+ edema, a little bit more prominent than it was yesterday. SKIN: Generalized pallor. LABORATORY STUDIES: Sodium 128, potassium 3.8, bicarbonate 29, BUN 39, creatinine 2.0, glucose 333. Total bilirubin 1.6. Albumin yesterday was 1.5; albumin today is 1.9. INR yesterday was 1.7. Ammonia level today is 91. Urinalysis is negative. Hemoglobin 8.6, platelets 109, white count 3.1. IMAGING: Abdominal ultrasound done yesterday shows moderate ascites. INPATIENT MEDICATIONS: Patient is pending to start on Levophed infusion. She is on: - allopurinol 100 mg at bedtime - vitamin C - atorvastatin 40 mg by mouth at bedtime - ciprofloxacin 500 mg by mouth daily - insulin - lactulose 40 mL every 4 hours - Synthroid 25 mcg by mouth daily - magnesium 400 mg by mouth three times a day - midodrine 15 mg by mouth three times a day - octreotide 100 mcg subcutaneous every 8 hours - oxycodone as needed - Protonix 40 mg IV twice a day - rifaximin 550 mg by mouth twice a day - Carafate 1 gram by mouth with meals and at bedtime - Zanaflex as needed - vitamin D 1000 units by mouth at bedtime PROBLEMS: 1. Acute kidney injury superimposed on chronic kidney disease (CKD) stage III. The patient's renal function is worsening again. She is persistently hypotensive despite maximal dose midodrine and also despite aggressive albumin infusion and resumption of octreotide. She is sliding into hepatorenal syndrome. She has a rising MELD-Na score. I discussed with Dr. Negro. I advised getting central line access and starting the patient on Levophed infusion and to titrate Levophed for a mean arterial pressure (MAP) of 70. She needs better renal perfusion pressures to facilitate adequate urine output. Patient has been experiencing progressive and worsening sequelae of her cirrhosis over the past several months and has been on a downward trajectory and overall, I feel that her prognosis is very poor unless she gets a timely liver transplant. 2. Nonalcoholic steatohepatitis (CAMPBELL) cirrhosis. Patient's MEND-Na score today is 27, giving a 90 day mortality of 30%. She has been seeing Dr. Ruvalcaba, chiller tender, for evaluation for liver transplant as an outpatient. She was a compensated cirrhotic several months ago; however, since then, she has really decompensated and has had multiple admissions to different area hospitals for sequelae of end-stage liver disease, including admissions for her hepatic encephalopathy and recurrent GI bleed and hepatorenal syndrome. 3. Hypervolemic hyponatremia. Glucose is 333. Corrected sodium is around 130. It is secondary to fluid overload from decompensated cirrhosis. We will see how she does with the Levophed infusion. If she does not start to make more urine on her own, we will give a trial of diuretics. 4. Hepatic encephalopathy. Mentation today was slower as compared to yesterday. Ammonia level is up to 91 and she continues on high dose of lactulose and she is also on rifaximin. 5. Acute on chronic hypotension. It is secondary to her end-stage liver disease, cirrhosis and recent significant GI bleed earlier on this admission. Given her progressively poor urine output and her low blood pressure, patient is going to have transfer to intensive care unit (ICU) to start on Levophed pressor support. She has been on maximal midodrine. 6. Anemia secondary to recurrent GI bleed. Patient has had numerous hospitalizations for GI bleed now. She has been transfused multiple times on different hospitalizations and, on this admission, she has received already 10 units of packed red blood cells. She could not tolerate a bowel prep and there is a delay in plans for colonoscopy, but her hemoglobin has been stable, at least for the past week. She is on Protonix and Carafate. DISPOSITION: Overall, I am not optimistic about the patient's ferry terminal agent prognosis. As an outpatient, we have been encouraging her to follow up with hepatology to work on being evaluated for liver transplant. She has really gone downhill these last several months and may not survive this hospitalization. I did update the pt's again today. Dictation ends / verified / ml MTDD
[2021-09-01] MEDS: oxyCODONE 5MG TAB PO PRN ×2 (12:39→18:20)
--- NOTE | 2021-09-01 14:02 | IPNPDOC ---
Date Seen The patient was seen on 09/01/21. Progress Note SUBJECTIVE: Increase levophed to 5 MCG today due to persistent hypotension and decreased urine output. Nephrology discussed oliguria and worsening kidney numbers with patient and her today. It was discussed that eventually the patient will be needed to go back on CRRT likely next several days. I spoke with [facility] and the covering note specialist, Dr. Askew, who agreed the patient would likely be an appropriate transfer for further workup towards liver transplant. There is a process; however, and with her being on levophed, after the assessment is done by their team then she would need an accepting ICU attending. This process can take days and nephrology was updated. The patient herself has no acute complaints outside of abdominal discomfort which she's had for several days. She denied chest pain, chest pain, palpitations, abdominal pain, nausea, vomiting, problem with urination and bowel movements. OBJECTIVE: Physical Examination VS: please see below General: Lying in bed, obtunded Head/Neck/Throat: Trachea midline, mucous membranes moist Eyes: Sclera anicteric, no erythema or discharge appreciated bilaterally Thorax: Normal respiratory effort on room air, bibasilar crackles appreciated Cardiovascular: Irregularly irregular, normal S1, S2, 2+-+3 lower extremity edema up to lower abd CHEST: permacath in right upper chest Abdomen: Bowel sounds present, distended, tense abdomen Genitourinary: No CVA tenderness, Teixeira draining yellow urine Skin: Warm, dry, generalized pallor Neurologic: Awake, alert, oriented x3. LABS: Please see below MICRO: Please see below ASSESSMENT: 66-year-old female with extensive past medical history including chronic renal disease, liver disease admitted for hepatic encephalopathy, GI bleed and worsening hepatorenal syndrome. PLAN: #Hypotension likely 2/2 to worsening hepatorenal syndrome -Currently remains on levophed, increased to 5 mcg this AM to keep MAP > 70 mmHg -S/p 11 albumin this admission and midodrine TID, poor u/o despite this all -Monitor in ICU -According to nephrology, unlikely patient will come off this pressor support at this time. -Currently awaiting hepatology/liver transplant team assessment for possible transfer to [facility] #Non-alcoholic liver cirrhosis with worsening hepatorenal syndrome -Resolved hepatic encephalopathy, ammonia waxing and waning 70-90 -S/p paracentesis x2 this admission, multiple albumin infusions -MELD score increased -GI following here -Repeat US done today with increasing abdominal tenseness -C/w levophed, empiric ciprofloxacin, diuretics stopped today by nephrology, restarted octreotide IV per note specialist. Patient likely will be needing CRRT in next several days, family updated. -Prior hospitalist spoke with [facility] who spoke with note specialist who did not recommend transfer at that time. Called Dr. Seymour, left message to call me back but never received call back today 08/31/21. -Discussed case with note specialist/liver transplant team provider, Dr. Askew who is covering service for Dr. Heath, patient's note specialist who stated that patient sounds like a good transplant candidate currently. There is a process; however, and with her being on levophed, after the assessment is done by their team then she would need an accepting ICU attending. This process can take days and nephrology was updated. She recommended resuming octreotide IV and continuation of all of the above, including levophed if necessary. #AIDA on CKD stage IIIB, borderline stage 4 -S/p intermittent dialysis early in admission, lasix gtt and pressors to help with u/o-did not do much -Cr worsened today, poor urine o/p in presence of hepatorenal syndrome -On levophed now -Nephro following closely, likely CRRT in near future #Fluid overload in the setting of cirrhosis with ascites, hypoalbuminemia (albumin 1.5) and diastolic congestive heart failure. -Not much improvement with lasix gtt or improvement in u/o with pressors -Likely need CRRT in near future. -Low salt diet #GI bleed -H/H currently stable. S/p 10 PRBC this admission -No dark stools or BRBPR -Could not tolerate colonoscopy prep over past 2 days -Cancelled colonoscopy for now and plan was to attempt again for 09/03/21, needing NG tube placed day prior to begin prep HOWEVER with requiring pressors for BP support, will not be able to do at this time. No s/s of active bleeding currently so this can wait for now -An upper endoscopy done showed Graves' disease with bleeding -Protonix, carafate, S/p tx with octreotide -CBC daily, GI consulted and following #Anemia in the setting of recent upper GI bleed -H/H stable -See above -Protonix, carafate #Diastolic CHF -Denies chest pain, SOB. -Not in acute exacerbation -C/w current medications -Monitor I's/O and daily weights #Electrolyte abnormality (hyponatremia, hypochloridemia)likely 2/2 to hepatorenal syndrome -Monitor with daily labs -Nephro watching also #Type 2 diabetes mellitus -BS >300 -C/w insulin sliding scale, Accu-Cheks, hypoglycemic protocol #Acute L1 compression fracture -She received calcitonin for a total of 3 days -Orthopedic team recommended physical therapy #Hypothyroidism -Continue with levothyroxine #DVT prophylax -SCD RESOLVED: #Hepatic encephalopathy DISPOSITION: Attempted to contact note specialist on 08/31/21, no call back. As mentioned above under "SUBJECTIVE" trying to transfer out of facility to [facility] where she can be managed by liver transplant team but process is in place, just starting and could take several days. Currently inpatient status, ICU. Nephrology, GI consulted and following. TOTAL AMOUNT OF ICU TIME MANAGING PATIENT: 70 MINS VS, I&O, 24H, [facility] Vital Signs/I&O Vital Signs Date Time Temp Pulse Resp B/P (MAP) Pulse Ox O2 Delivery O2 Flow Rate FiO2 09/01/21 13:09 16 09/01/21 12:39 93 Room Air 09/01/21 11:15 93/49 (64) 09/01/21 08:00 97.5 58 08/31/21 18:13 2.0 96 I&O- Last 24 Hours up to 6 AM 09/01/21 06:00 Intake Total 713.2 ml Output Total 260 ml Balance 453.2 ml Laboratory Data 24H LABS Laboratory Tests 2 08/31/21 17:24: Bedside Glucose (Misc Panel) 111 08/31/21 21:59: Bedside Glucose (Misc Panel) 184H 09/01/21 06:03: Immature Granulocyte % (Auto) 0.5, Neutrophils (%) (Auto) 76.9H, Lymphocytes (%) (Auto) 11.5L, Monocytes (%) (Auto) 8.4H, Eosinophils (%) (Auto) 2.3, Basophils (%) (Auto) 0.4, Neutrophils # (Auto) 7.7, Lymphocytes # (Auto) 1.1L, Monocytes # (Auto) 0.8, Eosinophils # (Auto) 0.2, Basophils # (Auto) 0.0, Nucleated Red Blood Cells % (auto) 0.0, Anion Gap 11, Glomerular Filtration Rate 19.6L, Calcium Level 7.9L, Total Bilirubin 1.8H, Aspartate Amino Transf (AST/SGOT) 64H, Alanine Aminotransferase (ALT/SGPT) 23, Alkaline Phosphatase 177H, Total Protein 5.2L, Albumin 2.2L, Albumin/Globulin Ratio 0.7L 09/01/21 09:02: Ammonia 71H 09/01/21 12:25: Bedside Glucose (Misc Panel) 220H CBC/BMP Laboratory Tests 09/01/21 06:03 Meghana Negro MD Sep 01, 2021 14:02
[2021-09-01] MEDS: OCTREOTIDE ACETATE 100MCG/ML VIAL **IV ADMINISTRATION ONLY IV SCH ×2 (14:19→21:04)
[2021-09-01] MEDS: NOREPINEPHRINE BITARTRATE 16 MG in D5W 484 ML IV SCH (14:20)
[2021-09-01] MEDS: tiZANidine 4 MG TAB PO PRN (21:03)
[2021-09-01] MEDS: VITAMIN D 1,000 INTERNATIONAL UNITS TABLET PO SCH (21:03)
[2021-09-01] MEDS: allopurinoL 100 MG TAB PO SCH (21:03)
[2021-09-01] MEDS: ASCORBIC ACID 250 MG TAB PO SCH (21:04)
[2021-09-02] VITALS (39 sets, daily range): BP systolic 83–115; BP diastolic 43–60
[2021-09-02] MEDS: LACTULOSE 20 GM/30 ML SYRUP UD NG SCH ×6 (01:17→19:43)
[2021-09-02] MEDS: CIPROFLOXACIN 500MG TABLET PO SCH (05:39)
[2021-09-02] MEDS: SODIUM CHLORIDE 0.9% INJ 10 ML SYR IV SCH ×2 (05:39→18:20)
[2021-09-02] MEDS: LEVOTHYROXINE 25MCG TABLET (0.025MG) PO SCH (05:39)
[2021-09-02] MEDS: OCTREOTIDE ACETATE 100MCG/ML VIAL **IV ADMINISTRATION ONLY IV SCH ×3 (05:39→23:17)
[2021-09-02] MEDS: oxyCODONE 5MG TAB PO PRN ×2 (05:43→19:45)
[2021-09-02 06:05] LABS: BASO # 0.1 10^3/uL (0.0-0.2); BASO % 0.6 % (0.0-1.0); EOS # 0.4 10^3/uL (0.0-0.5); EOS % 3.1 % (0.0-3.0); HEMATOCRIT 28.7 % (36.0-47.0); HEMOGLOBIN 9.1 g/dl (12.0-15.5); LYMPH # 1.5 10^3/uL (1.5-5.0); LYMPH % 12.5 % (24.0-44.0); MEAN CORPUSCULAR HEMOGLOBIN 30.1 pg (27.0-33.0); MEAN CORPUSCULAR HGB CONC 31.7 g/dl (32.0-36.5); MONO # 1.5 10^3/uL (0.0-0.8); NEUTROPHILS # 8.8 10^3/uL (1.5-8.5); NEUTROPHILS % 71.5 % (36.0-66.0); PLATELET COUNT, AUTOMATED 152 10^3/uL (150-450); RED BLOOD COUNT 3.02 10^6/uL (4.00-5.40); WHITE BLOOD COUNT 12.2 10^3/uL (4.0-10.0)
[2021-09-02 06:39] LABS: ALBUMIN 2.1 GM/DL (3.2-5.2); BILIRUBIN,TOTAL 1.5 MG/DL (0.2-1.0); CALCIUM LEVEL 8.2 MG/DL (8.8-10.2); CREATININE FOR GFR 3.46 MG/DL (0.55-1.30); GLOMERULAR FILTRATION RATE 14.2 (>45); MAGNESIUM LEVEL 2.3 MG/DL (1.8-2.4); POTASSIUM SERUM 3.5 MEQ/L (3.5-5.1); TOTAL PROTEIN 5.5 GM/DL (6.4-8.2)
[2021-09-02] MEDS: HumaLOG INSULIN (NovoLOG) PER UNIT SC SCH ×4 (08:07→19:43)
[2021-09-02] MEDS: SUCRALFATE 1 GM TAB PO SCH ×4 (08:08→19:43)
[2021-09-02] MEDS: rifAXIMin 550 MG TAB (XIFAXAN) PO SCH ×2 (09:22→19:43)
[2021-09-02] MEDS: PANTOPRAZOLE 40MG VIAL (C9113 PER 1) IV SCH ×2 (09:22→19:43)
[2021-09-02] MEDS: MIDODRINE 5 MG TAB PO SCH (09:23)
[2021-09-02] MEDS: MAGNESIUM OXIDE 400MG TAB (MAG-OX) PO SCH (09:23)
[2021-09-02] MEDS: tiZANidine 4 MG TAB PO PRN ×2 (10:34→15:45)
--- NOTE | 2021-09-02 12:24 | IPN ---
NEPHROLOGY PROGRESS NOTE DATE: 09/02/2021 SUBJECTIVE: Ms. Ngo is seen and examined this morning at the bedside in the intensive care unit. She is not doing well. Her Levophed pressor support is presently running at 6 mcg. She remains in oliguric renal failure. Urine output in the past 24 hours was less than 500 mL. I have discussed with the primary team and with the patient's that she may not survive this admission and there is a consideration for continuous renal replacement therapy (CRRT) as a bridge to possible liver transplant evaluation. Christina complains of increasing abdominal distention. Denies shortness of breath at rest. PHYSICAL EXAMINATION: VITAL SIGNS: Temperature 97.7, pulse 59, respiratory rate 18, blood pressure 95/54 on 6 mcg of Levophed, saturating 97% on room air. INTAKE AND OUTPUT: Intake yesterday was 2.4 liters. Urine output was 400 mL. Weight in the bed scale today was not recorded. GENERAL: Patient is seen lying in bed in the intensive care unit awake, alert, oriented to person, place and situation. HEENT: Extraocular muscles are intact. Tongue is moist. NECK: Supple. Jugular veins are elevated. HEART SOUNDS: Mildly bradycardic and regular. There is a tunneled hemodialysis catheter in the right chest wall. LUNGS: Diminished breath sounds at the bases, but no accessory muscle use or tachypnea. ABDOMEN: Soft. There is moderate ascites that is appreciable. GENITOURINARY: Teixeira catheter with small amount of urine in the bag. EXTREMITIES: 2+ pitting edema has been increasing on a daily basis. SKIN: Shows generalized pallor. LABORATORY STUDIES: Sodium 131, potassium 3.9, bicarbonate 26, BUN 41, creatinine 2.6. Total bilirubin 1.8. Ammonia level 91 yesterday and 71 today. Albumin 2.2 Most recent INR 1.7. Hemoglobin 9.0, platelets 156. INPATIENT MEDICATIONS: She is on Levophed infusion at 6 mcg. - allopurinol 100 mg by mouth at bedtime, which I am stopping - vitamin C 250 mg by mouth at bedtime - ciprofloxacin 500 mg by mouth daily - insulin - lactulose 40 mL every 4 hours - levothyroxine 25 mcg by mouth daily - octreotide 100 mg every 8 hours - oxycodone as needed - Protonix 40 mg intravenous (IV) twice a day - Rifaximin 550 mg by mouth twice a day - Carafate 1 gram by mouth with meals and at bedtime - Zanaflex 4 mg by mouth as needed three times a day - vitamin D 1000 units by mouth at bedtime PROBLEMS: 1. Acute oliguric renal failure superimposed on chronic kidney disease (CKD) stage III in this patient with decompensated cirrhosis and significant hypotension and hepatorenal syndrome who is now on Levophed infusion and has an elevated MELD-Na score (27). I discussed with the patient's and Dr. Negro that she would only be a candidate for continuous renal replacement therapy (CRRT) if there is a plan to bridge her to a liver transplant. She has been seeing a system analyst (Dr. Ruvalcaba) as an outpatient for evaluation for liver transplantation. She is otherwise unlikely to survive this hospitalization. She has been experiencing progressive and worsening sequelae of her cirrhosis over the past several months and has been on a downward trajectory overall and, with the concomitant hepatorenal syndrome, not improving with Levophed. Her prognosis is dismal unless she is suitable for liver transplantation. Today there is no acute indication to start CRRT. We will continue with Levophed infusion and reevaluate for CRRT needs on a daily basis, and I expect that she will need dialysis within the coming 24-48 hours. 2. Nonalcoholic steatohepatitis (CAMPBELL) cirrhosis now complicated by hepatorenal syndrome, which has not improved despite Levophed infusion. She was a compensated cirrhotic several months ago. However, over the past several months, she has had multiple admissions to different area hospitals for sequelae of end-stage renal disease, including recurrent admissions for hepatic encephalopathy, recurrent gastrointestinal (GI) bleed and hepatorenal syndrome. At this point, she is critically ill and primary team is in conversation with [facility] and hopefully trying to facilitate a transfer. 3. Hepatic encephalopathy. Lactulose is adjusted by the primary service. Most recent ammonia level is in the 70s and she is also on rifaximin. 4. Acute on chronic hypotension. It is secondary to end-stage liver disease. At home, she is on midodrine 15 mg three times a day. On this admission, she came in with significant GI bleed requiring a total of 10 units packed red blood cells transfusion. She did briefly stabilize. However, over the past several days, has had progressively poor urine output and worsening hemodynamics and is now in the intensive care unit on Levophed pressor support to maintain a targeted mean arterial pressure (MAP) of 70. Despite the intervention, there is no improvement in her renal function. Continue pressor. DISPOSITION: I have discussed the patient's clinical condition at length with her , Meryl Mclain, and also had discussions with the primary team, Dr. Negro, and I express again that I do not feel that patient is likely to recover without evaluation for liver transplantation.
[2021-09-02] MEDS: NOREPINEPHRINE BITARTRATE 16 MG in D5W 484 ML IV SCH (14:07)
[2021-09-02] MEDS ORDERED: SODIUM CHLORIDE 0.9% INJ 10 ML SYR IV PRN (15:20)
--- NOTE | 2021-09-02 15:24 | IPNPDOC ---
Date Seen The patient was seen on 09/02/21. Progress Note SUBJECTIVE: Increase levophed to 11 MCG due to continued persistent hypotension and decreased urine output. Worsening renal failure, acidosis so CRRT planned today after diagnostic/therapeutic paracentesis. Denies chest pain, palpitations, abdominal pain, nausea, vomiting, problem with urination and bowel movements. OBJECTIVE: Physical Examination VS: please see below General: Lying in bed, obtunded Head/Neck/Throat: Trachea midline, mucous membranes moist Eyes: Sclera anicteric, no erythema or discharge appreciated bilaterally Thorax: Normal respiratory effort on room air, bibasilar crackles appreciated Cardiovascular: Irregularly irregular, normal S1, S2, 2+-+3 lower extremity e everardo up to lower abd CHEST: permacath in right upper chest Abdomen: Bowel sounds present, distended, more tense abdomen, tender to palpation Genitourinary: No CVA tenderness, Teixeira draining yellow urine Skin: Warm, dry, generalized pallor Neurologic: Awake, alert, oriented x3. LABS: Please see below MICRO: Please see below ASSESSMENT: 66-year-old female with extensive past medical history including chronic renal disease, liver disease admitted for hepatic encephalopathy, GI bleed and worsening hepatorenal syndrome. PLAN: #Hypotension likely 2/2 to worsening hepatorenal syndrome -On incr levophed to keep MAP > 70 mmHg -S/p 11 albumin this admission and midodrine TID, poor u/o despite this all -Monitor in ICU -According to nephrology, unlikely patient will come off this pressor support at this time. -Discussed case with no experience/liver transplant team provider, Dr. Askew who is covering service for Dr. Heath, patient's no experience who stated that patient sounds like a good transplant candidate currently. There is a process; however, and with her being on levophed, after the assessment is done by their team then she would need an accepting ICU attending. This process can take days and nephrology was updated. Hepatology/liver transplant team deemed appropriate and insurance issues were resolved earlier today. She will be calling transfer center to have them have ICU attending call me to put patient on list for transfer to ICU. Spoke with her 3:30 PM today. #Non-alcoholic liver cirrhosis with worsening hepatorenal syndrome -Resolved hepatic encephalopathy, ammonia waxing and waning 70-90 -S/p paracentesis x2 this admission, multiple albumin infusions -MELD score increased -GI following here -C/w levophed, empiric ciprofloxacin, diuretics stopped by nephrology, c/w octreotide IV per no experience. -STarting CRRT today -Paracentesis to occur before CRRT #AIDA on CKD stage IIIB, borderline stage 4 -S/p intermittent dialysis early in admission, lasix gtt and pressors to help with u/o-did not do much -Cr worsened today, poor urine o/p in presence of hepatorenal syndrome, worsening lactic acidosis -On levophed -Nephro following closely, CRRT to start today #Fluid overload in the setting of cirrhosis with ascites, hypoalbuminemia (albumin 1.5) and diastolic congestive heart failure. -Not much improvement with lasix gtt or improvement in u/o with pressors -CRRT -Low salt diet #GI bleed -H/H currently stable. S/p 10 PRBC this admission -No dark stools or BRBPR -Could not tolerate colonoscopy prep over past 2 days -Cancelled colonoscopy for now and plan was to attempt again for 09/03/21, needing NG tube placed day prior to begin prep HOWEVER with requiring pressors for BP support, will not be able to do at this time. No s/s of active bleeding currently so this can wait for now -An upper endoscopy done showed Graves' disease with bleeding -Protonix, carafate, octreotide -CBC daily, GI consulted and following #Anemia in the setting of recent upper GI bleed -H/H stable -See above -Protonix, carafate #Diastolic CHF -Denies chest pain, SOB. -Not in acute exacerbation -C/w current medications -Monitor I's/O and daily weights #Electrolyte abnormality (hyponatremia, hypochloridemia)likely 2/2 to hepatorenal syndrome -Monitor with daily labs -Nephro watching also #lactic acidosis 2/2 to worsening kidney failure -See above for treatment #Type 2 diabetes mellitus -BS >300 -C/w insulin sliding scale, Accu-Cheks, hypoglycemic protocol #Acute L1 compression fracture -She received calcitonin for a total of 3 days -Orthopedic team recommended physical therapy #Hypothyroidism -Continue with levothyroxine #DVT prophylax -SCD RESOLVED: #Hepatic encephalopathy DISPOSITION: Attempting to transfer out of facility to [facility] where she can be managed by liver transplant team but process is in place, just starting and could take several days. Currently inpatient status, ICU. Nephrology following. TOTAL AMOUNT OF ICU TIME MANAGING PATIENT: 70 MINS VS, I&O, 24H, [place] Vital Signs/I&O Vital Signs Date Time Temp Pulse Resp B/P (MAP) Pulse Ox O2 Delivery O2 Flow Rate FiO2 09/02/21 14:00 93 15 100/53 (69) 97 Room Air 09/02/21 12:30 98.2 08/31/21 18:13 2.0 96 I&O- Last 24 Hours up to 6 AM 09/02/21 06:00 Intake Total 1275.90 ml Output Total 60 ml Balance 1215.90 ml Laboratory Data 24H LABS Laboratory Tests 2 09/01/21 17:44: Bedside Glucose (Misc Panel) 181H 09/01/21 20:13: Ammonia 93H 09/01/21 21:17: Bedside Glucose (Misc Panel) 159H 09/02/21 05:45: Immature Granulocyte % (Auto) 0.3, Neutrophils (%) (Auto) 71.5H, Lymphocytes (%) (Auto) 12.5L, Monocytes (%) (Auto) 12.0H, Eosinophils (%) (Auto) 3.1H, Basophils (%) (Auto) 0.6, Neutrophils # (Auto) 8.8H, Lymphocytes # (Auto) 1.5, Monocytes # (Auto) 1.5H, Eosinophils # (Auto) 0.4, Basophils # (Auto) 0.1, Nucleated Red Blood Cells % (auto) 0.0, Anion Gap 13, Glomerular Filtration Rate 14.2L, Lactic Acid Level 4.3*H, Calcium Level 8.2L, Magnesium Level 2.3, Total Bilirubin 1.5H, Aspartate Amino Transf (AST/SGOT) 56H, Alanine Aminotransferase (ALT/SGPT) 26, Alkaline Phosphatase 198H, Total Protein 5.5L, Albumin 2.1L, Albumin/Globulin Ratio 0.6L 09/02/21 07:49: Ammonia 78H 09/02/21 07:53: Bedside Glucose (Misc Panel) 258H 09/02/21 10:58: Lactic Acid Followup at 4 Hours 5.4*H 09/02/21 12:11: Bedside Glucose (Misc Panel) 220H CBC/BMP Laboratory Tests 09/02/21 05:45 Meghana Negro MD Sep 02, 2021 15:24
[2021-09-02 15:47] LABS: HEMATOCRIT 28.3 % (36.0-47.0); MEAN CORPUSCULAR HEMOGLOBIN 30.3 pg (27.0-33.0); MEAN CORPUSCULAR HGB CONC 31.8 g/dl (32.0-36.5); MEAN CORPUSCULAR VOLUME 95.3 fl (80.0-96.0); PLATELET COUNT, AUTOMATED 138 10^3/uL (150-450); RED BLOOD COUNT 2.97 10^6/uL (4.00-5.40)
[2021-09-02 15:58] LABS: INR 2.31; PROTHROMBIN TIME 25.7 SECONDS (12.7-14.5)
[2021-09-02 15:59] LABS: PARTIAL THROMBOPLASTIN TIME 66.3 SECONDS (25.9-37.0)
[2021-09-02 16:04] LABS: CALCIUM LEVEL 8.6 MG/DL (8.8-10.2); CREATININE FOR GFR 3.69 MG/DL (0.55-1.30); GLOMERULAR FILTRATION RATE 13.2 (>45); MAGNESIUM LEVEL 2.4 MG/DL (1.8-2.4); POTASSIUM SERUM 3.3 MEQ/L (3.5-5.1)
--- NOTE | 2021-09-02 17:39 | REP ---
INDICATION: worsening ascites. COMPARISON: None. TECHNIQUE: Four quadrant ultrasound to assess for ascites FINDINGS: The prior exam of 08/30/2021 showed mild to moderate ascites mostly on the right-side. Today's exam was performed in the same fashion as the prior exam in shows mild to moderate ascites mostly in the right upper quadrant with a minimal amount in the right and left lower quadrants IMPRESSION: The amount of ascites present ultrasonographically is likely insufficient to perform paracentesis on. <Electronically signed by Renzo Aragon > 09/02/21 [id number]
--- NOTE | 2021-09-02 17:56 | ECHO ---
ECHOCARDIOGRAM DATE OF PROCEDURE: 09/01/2021 Age: 66 Gender: Female Height: 64 inches Weight: 207 pounds Body surface area: 1.99 m2 Inpatient, progressive care unit (PCU), room 3222 REFERRING PHYSICIAN: Dr. Boone Gleason INDICATION: Hypotension, congestive heart failure (CHF) MEASUREMENTS: 2D Measurements: RV - 4.6 cm LV - 4.0 cm Septum 1.3 cm Posterior wall 1.3 cm Aortic root 2.9 cm LA - 4.2 cm LVEF 80% Doppler Measurements: AV - 2.54 m/s LVOT - 1.38 m/s LVOT diameter 1.7 cm Mean AV gradient 13 mmHg Dimensionless index 0.62 MV-E 88, A 74, E/A ratio 1.2 Early mitral deceleration 342 msec E prime medial 7.3 A prime medial 5.6 E prime lateral 8 Average E/E prime ratio 11.5/PCWP - 16.2 mmHg PV - 1.2 m/s RVSP 45 mmHg IVC - 1.7 cm COMMENTS: Normal sinus rhythm without intraventricular conduction disturbance. Technically challenging study in light of the patient's body habitus, but diagnostically useful information was still obtained. M-mode and 2-dimensional echocardiography was performed with pulse, continuous wave, color flow, and tissue Doppler studies. Mild concentric left ventricular hypertrophy with hyperkinetic wall motion. Mildly dilated left atrium with grade 2 LV diastolic dysfunction but currently normal estimated mean left atrial pressure. Moderately dilated right heart chambers with normal wall motion and Doppler evidence of at least moderate pulmonary hypertension. Currently normal IVC size and collapse against an elevated central venous pressure. Normal aortic dimensions. Subtle aortic valvular sclerosis without functional abnormality. Subtle mitral annular thickening but normal leaflet thickness and excursion with no posterior systolic buckling, no than trace insufficiency. Normal-appearing tricuspid valve with mild to moderate insufficiency. No apparent intracardiac mass or pericardial effusion.
[2021-09-02] MEDS: ASCORBIC ACID 250 MG TAB PO SCH (19:43)
[2021-09-02] MEDS: VITAMIN D 1,000 INTERNATIONAL UNITS TABLET PO SCH (19:43)
--- NOTE | 2021-09-02 23:15 | IPN ---
NEPHROLOGY PROGRESS NOTE DATE: 09/02/2021 SUBJECTIVE: Miss Vasquez is seen and examined this morning at the bedside in the Intensive Care Unit. I also called her , Meryl, and updated her with her clinical condition. Christina continues to do very poorly. She is presently on eleven mcg of the Levophed infusion and continues to be in oligoanuric renal failure and has still not been formally accepted to any of the [facility] liver transplant centers, although Dr. Negro has been in close communication with [facility], where the patient's primary flaring machine operator is based out of. She is now with increasing lactic acidosis on laboratory study and the plan is to commence with CRRT this afternoon, hopefully as a bridge to a liver center. I did discuss with her that she is unlikely to come off of CRRT (or survive the hospitalization) if she does not receive a liver transplant. The patient herself reports some abdominal discomfort and distention. Otherwise she denies shortness of breath at rest and expresses apprehension about starting CRRT but otherwise has no new complaints. OBJECTIVE: PHYSICAL EXAMINATION: VITAL SIGNS: Temperature 96.8, pulse 90, respiratory rate 13, blood pressure 98/54, saturating 96% on room air. INTAKE AND OUTPUT: Intake yesterday was 1.4 liters. Urine output yesterday was 90 mL. There were six bowel movements. Weight in the bed scale is not recorded. GENERAL APPEARANCE: The patient was lying in bed in the Intensive Care Unit. Awake, alert and oriented to person and place. She is able to have a conversation. She answered simple questions appropriately. She understands the gist of what is going on. HEENT: The extraocular muscles are intact. Her tongue is moist. CHEST: There is a tunneled hemodialysis catheter in the right chest wall. HEART: Sounds are regular, S1, S2. LUNGS: Anterior auscultation only is clear. There are no crackles or rales. ABDOMEN: Distended but soft and she does not grimace to palpation. GENITOURINARY: Teixeira catheter with minimal urine in the bag. EXTREMITIES: There is increasing edema on a daily basis, at least 2+ now in both legs, coming up to the proximal hips. NEUROLOGICAL: The patient is awake, alert. She moves her extremities on command and she answered simple questions appropriately and she seems to understand what is going on. LABORATORY STUDIES: Sodium 129, potassium 3.3, bicarbonate 24, BUN 42, creatinine 3.6, glucose 188, lactic acid 5.4, magnesium 2.4. Ammonia was 78. Hemoglobin 9.0, platelet count 138, white count 14.0. INPATIENT MEDICATIONS: I discontinued her Allopurinol. I discontinued oral magnesium. I discontinued oral Midodrine. The patient is on Levophed infusion at 11 mcg. She is also on vitamin C, Ciprofloxacin 500 mg p.o. daily, insulin, Lactulose 40 mL q. 4 hourly, Synthroid 25 mcg daily, Oxycodone p.r.n., Protonix 40 mg IV twice daily, Phenergan p.r.n., Carafate one gram with meals and at bedtime, Zanaflex p.r.n., Vitamin D 1,000 units p.o. q. h.s. PROBLEMS: 1. Acute oligoanuric renal failure superimposed on chronic kidney disease stage 3 in this patient with decompensated CAMPBELL cirrhosis and worsening hypotension - renal failure is secondary to hepatorenal syndrome and the patient was started on Levophed but has had no improvement. We started the patient on CRRT this afternoon, hopefully as a bridge to liver transplantation. I do not think that she would be able to come off both pressor support otherwise. Nor do I expect the patient to have recovery of renal function unless she receives a liver transplant. Dr. Negro is in communication with the patient's primary flaring machine operator (she sees Dr. Ruvalcaba as an outpatient and has been undergoing evaluation for liver transplantation). Orders are written for CRRT and discussed with the ICU nurse. 2. Severe hypotension - The patient's pressor requirement has increased to Levophed at 11 mcg and pressor is being titrated to keep her MAP around 70. Lactic acidosis was rising and we will repeat once she is on CRRT. 3. Recent significant GI bleed - The patient was status post 10 units packed red blood cells on this admission. The vast majority of the transfusions were early on during the admission and in the past week she has only gotten one unit of blood and hemoglobin has been fairly stable at 9.0 on the latest labs. She is going to receive Heparin free continuous dialysis. She also continues on Protonix and Carafate. 4. Fluid overload in the setting of hepatorenal syndrome, cirrhosis, renal failure and diastolic congestive heart failure - The patient is in volume overload with increasing peripheral edema. She has been oligoanuric the past 3 days. She is still saturating well on room air. I do not plan on removing significant fluid with CRRT today. We will see how she does in terms of pressor requirements and we will reevaluate her for possible fluid removal tomorrow.
[2021-09-03] VITALS (36 sets, daily range): BP systolic 81–118; BP diastolic 40–75
[2021-09-03] MEDS: tiZANidine 4 MG TAB PO PRN ×3 (00:16→22:06)
[2021-09-03] MEDS: LACTULOSE 20 GM/30 ML SYRUP UD NG SCH ×6 (01:08→20:15)
[2021-09-03 04:08] LABS: HEMATOCRIT 27.6 % (36.0-47.0); HEMOGLOBIN 8.9 g/dl (12.0-15.5); MEAN CORPUSCULAR HEMOGLOBIN 30.4 pg (27.0-33.0); MEAN CORPUSCULAR HGB CONC 32.2 g/dl (32.0-36.5); MEAN CORPUSCULAR VOLUME 94.2 fl (80.0-96.0); PLATELET COUNT, AUTOMATED 100 10^3/uL (150-450); RED BLOOD COUNT 2.93 10^6/uL (4.00-5.40); WHITE BLOOD COUNT 11.1 10^3/uL (4.0-10.0)
[2021-09-03 04:26] LABS: CALCIUM LEVEL 7.8 MG/DL (8.8-10.2); CREATININE FOR GFR 2.77 MG/DL (0.55-1.30); GLOMERULAR FILTRATION RATE 18.3 (>45); MAGNESIUM LEVEL 2.2 MG/DL (1.8-2.4); POTASSIUM SERUM 3.3 MEQ/L (3.5-5.1)
[2021-09-03] MEDS ORDERED: CALCIUM GLUCONATE 1,000 MG, VIAL MATE ADAPTER 1 EACH in NS 100 ML IV SCH (04:35)
[2021-09-03] MEDS: KCL 20MEQ IN 100ML SWI (KRUN) 20 MEQ in IV 1 EA IV SCH ×4 (04:49→05:52)
[2021-09-03] MEDS: CIPROFLOXACIN 500MG TABLET PO SCH (04:54)
[2021-09-03] MEDS: LEVOTHYROXINE 25MCG TABLET (0.025MG) PO SCH (04:54)
[2021-09-03] MEDS: oxyCODONE 5MG TAB PO PRN ×3 (04:54→22:06)
[2021-09-03] MEDS: OCTREOTIDE ACETATE 100MCG/ML VIAL **IV ADMINISTRATION ONLY IV SCH ×3 (05:47→21:28)
[2021-09-03 06:11] LABS: HEMATOCRIT 27.1 % (36.0-47.0); HEMOGLOBIN 8.7 g/dl (12.0-15.5); MEAN CORPUSCULAR HEMOGLOBIN 30.3 pg (27.0-33.0); MEAN CORPUSCULAR HGB CONC 32.1 g/dl (32.0-36.5); MEAN CORPUSCULAR VOLUME 94.4 fl (80.0-96.0); RED BLOOD COUNT 2.87 10^6/uL (4.00-5.40); WHITE BLOOD COUNT 10.4 10^3/uL (4.0-10.0)
[2021-09-03 06:14] LABS: PLATELET COUNT, AUTOMATED 96 10^3/uL (150-450)
[2021-09-03 06:33] LABS: ALBUMIN 1.8 GM/DL (3.2-5.2); BILIRUBIN,TOTAL 1.6 MG/DL (0.2-1.0); CALCIUM LEVEL 7.5 MG/DL (8.8-10.2); CREATININE FOR GFR 2.71 MG/DL (0.55-1.30); GLOMERULAR FILTRATION RATE 18.8 (>45); POTASSIUM SERUM 3.6 MEQ/L (3.5-5.1); TOTAL PROTEIN 5.2 GM/DL (6.4-8.2)
[2021-09-03] MEDS ORDERED: SODIUM PHOSPHATE INJ 15 MMOL in D5W 250 ML IV ONE (07:30)
[2021-09-03] MEDS: PANTOPRAZOLE 40MG VIAL (C9113 PER 1) IV SCH ×2 (08:35→20:21)
[2021-09-03] MEDS: HumaLOG INSULIN (NovoLOG) PER UNIT SC SCH ×4 (08:36→21:00)
[2021-09-03] MEDS: SUCRALFATE 1 GM TAB PO SCH ×4 (08:37→20:15)
[2021-09-03] MEDS: rifAXIMin 550 MG TAB (XIFAXAN) PO SCH ×2 (08:37→20:15)
[2021-09-03] MEDS: NOREPINEPHRINE BITARTRATE 16 MG in D5W 484 ML IV SCH (12:11)
[2021-09-03] MEDS: LIDOCAINE 5% (LIDODERM) PATCH TD SCH (12:25)
--- NOTE | 2021-09-03 15:28 | IPNPDOC ---
Date Seen The patient was seen on 09/03/21. Progress Note SUBJECTIVE: Spoke with [facility] who states patient is on list for outside transfers, just currently no beds. Still on levophed, CRRT. Still has abdominal discomfort from distention. Denies chest pain, palpitations, nausea, vomiting, problem with urination and bowel movements. OBJECTIVE: Physical Examination VS: please see below General: Lying in bed, obtunded Head/Neck/Throat: Trachea midline, mucous membranes moist Eyes: Sclera anicteric, no erythema or discharge appreciated bilaterally Thorax: Normal respiratory effort on room air, bibasilar crackles appreciated Cardiovascular: Irregularly irregular, normal S1, S2, 2+-+3 lower extremity edema up to lower abd CHEST: permacath in right upper chest Abdomen: Bowel sounds present, distended, more tense abdomen, tender to palpation Genitourinary: No CVA tenderness, Teixeira draining yellow urine Skin: Warm, dry, generalized pallor Neurologic: Awake, alert, oriented x3. LABS: Please see below MICRO: Please see below ASSESSMENT: 66-year-old female with extensive past medical history including chronic renal disease, liver disease admitted for hepatic encephalopathy, GI bleed and worsening hepatorenal syndrome. PLAN: #Hypotension likely 2/2 to worsening hepatorenal syndrome -On levophed to keep MAP > 70 mmHg, 10 mcg -S/p 11 albumin this admission and midodrine TID, poor u/o despite this all -Monitor in ICU -According to nephrology, unlikely patient will come off this pressor support at this time. -Discussed case with telecom billing analyst/liver transplant team provider, Dr. Askew who is covering service for Dr. Heath, patient's telecom billing analyst who stated that patient sounds like a good transplant candidate currently. She is currently on a wait list for ICU bed at [facility] in [place]. There is a process and she would need an accepting ICU attending when that time comes. This process can take days and nephrology was updated. Hepatology/liver transplant team deemed appropriate and insurance issues were resolved. Will try calling transfer center again later to again see status on beds. -Patient was updated. If wait is deemed too long by transplant team, may need to expand search out to different transplant facility. #Non-alcoholic liver cirrhosis with worsening hepatorenal syndrome -Resolved hepatic encephalopathy, ammonia waxing and waning 70-90 -S/p paracentesis x2 this admission, multiple albumin infusions -MELD score 33, 52.6% mortality -GI has seen here -C/w levophed, empiric ciprofloxacin, octreotide IV per telecom billing analyst. -CRRT again today #AIDA on CKD stage IIIB, borderline stage 4 -S/p intermittent dialysis early in admission, lasix gtt and pressors to help with u/o-did not do much -Cr slightly iimproved today, poor urine o/p in presence of hepatorenal syndrome, worsening lactic acidosis -On levophed -Nephro following closely, CRRT #Fluid overload in the setting of cirrhosis with ascites, hypoalbuminemia (albumin 1.5) and diastolic congestive heart failure. -Not much improvement with lasix gtt or improvement in u/o with pressors -CRRT -Low salt diet #GI bleed -H/H currently stable. S/p 10 PRBC this admission -No dark stools or BRBPR -Could not tolerate colonoscopy prep over past 2 days -Cancelled colonoscopy for now and plan was to attempt again for 09/03/21, needing NG tube placed day prior to begin prep HOWEVER with requiring pressors for BP support, will not be able to do at this time. No s/s of active bleeding currently so this can wait for now -An upper endoscopy done showed Graves' disease with bleeding -Protonix, carafate, octreotide -CBC daily, GI consulted and following #Anemia in the setting of recent upper GI bleed -H/H stable -See above -Protonix, carafate #Thrombocytopenia -Worsening in presence of renal failure -Stopped heparin flushes -CBC daily #Diastolic CHF -Denies chest pain, SOB. -Not in acute exacerbation -C/w current medications -Monitor I's/O and daily weights #Electrolyte abnormality (hyponatremia, hypochloridemia)likely 2/2 to hepatorenal syndrome -Monitor with daily labs -Nephro watching also -CRRT may help correct these to some extent #Lactic acidosis 2/2 to worsening kidney failure -See above for treatment #Type 2 diabetes mellitus -BS slightly improved -C/w insulin sliding scale, Accu-Cheks, hypoglycemic protocol #Acute L1 compression fracture -She received calcitonin for a total of 3 days -Orthopedic team recommended physical therapy -Lidocaine patch added today #Hypothyroidism -Continue with levothyroxine #DVT prophylax -SCD RESOLVED: #Hepatic encephalopathy DISPOSITION: Attempting to transfer out of facility to [facility] where she can be managed by liver transplant team but process is in place, on list for ICU currently but bed situation is very tight. Currently inpatient status, ICU. Nephrology following. TOTAL AMOUNT OF ICU TIME MANAGING PATIENT: 70 MINS VS, I&O, 24H, [place] Vital Signs/I&O Vital Signs Date Time Temp Pulse Resp B/P (MAP) Pulse Ox O2 Delivery O2 Flow Rate FiO2 09/03/21 13:34 72 16 94/54 (67) 99 09/03/21 10:45 Room Air 09/03/21 04:00 96.8 08/31/21 18:13 2.0 96 I&O- Last 24 Hours up to 6 AM 09/03/21 06:00 Intake Total 2194.5 ml Output Total 33 ml Balance 2161.5 ml Laboratory Data 24H LABS Laboratory Tests 2 09/02/21 15:33: Nucleated Red Blood Cells % (auto) 0.0, Prothrombin Time 25.7H, Prothromb Time International Ratio 2.31, Activated Partial Thromboplast Time 66.3H, Anion Gap 11, Glomerular Filtration Rate 13.2L, Calcium Level 8.6L, Whole Blood Ionized Calcium 4.7, Magnesium Level 2.4 09/02/21 18:08: Bedside Glucose (Misc Panel) 173H 09/02/21 19:32: Bedside Glucose (Misc Panel) 162H 09/02/21 19:34: Ammonia 102H 09/03/21 03:52: Nucleated Red Blood Cells % (auto) 0.0, Anion Gap 8, Glomerular Filtration Rate 18.3L, Calcium Level 7.8L, Whole Blood Ionized Calcium 4.4L, Phosphorus Level 2.3#L, Magnesium Level 2.2 09/03/21 05:47: Nucleated Red Blood Cells % (auto) 0.0, Anion Gap 7L, Glomerular Filtration Rate 18.8L, Calcium Level 7.5L, Immature Platelet Fraction 5.4, Total Bilirubin 1.6H, Aspartate Amino Transf (AST/SGOT) 50H, Alanine Aminotransferase (ALT/SGPT) 22, Alkaline Phosphatase 204H, Ammonia 89H, Total Protein 5.2L, Albumin 1.8L, Albumin/Globulin Ratio 0.5L 09/03/21 08:03: Bedside Glucose (Misc Panel) 200H 09/03/21 11:56: Bedside Glucose (Misc Panel) 253H CBC/BMP Laboratory Tests 09/02/21 15:33 09/03/21 03:52 09/03/21 05:47 Meghana Negro MD Sep 03, 2021 15:28
[2021-09-03] MEDS ORDERED: VANCOMYCIN HCL 1,000 MG, VIAL MATE ADAPTER 1 EACH in NS 250 ML IV SCH (18:00)
[2021-09-03 19:01] LABS: HEMATOCRIT 27.2 % (36.0-47.0); HEMOGLOBIN 8.8 g/dl (12.0-15.5); MEAN CORPUSCULAR HEMOGLOBIN 30.8 pg (27.0-33.0); MEAN CORPUSCULAR HGB CONC 32.4 g/dl (32.0-36.5); MEAN CORPUSCULAR VOLUME 95.1 fl (80.0-96.0); RED BLOOD COUNT 2.86 10^6/uL (4.00-5.40); WHITE BLOOD COUNT 8.7 10^3/uL (4.0-10.0)
[2021-09-03 19:02] LABS: PLATELET COUNT, AUTOMATED 71 10^3/uL (150-450)
[2021-09-03 19:15] LABS: CALCIUM LEVEL 7.6 MG/DL (8.8-10.2); CREATININE FOR GFR 2.08 MG/DL (0.55-1.30); GLOMERULAR FILTRATION RATE 25.5 (>45); MAGNESIUM LEVEL 2.4 MG/DL (1.8-2.4); POTASSIUM SERUM 3.7 MEQ/L (3.5-5.1)
[2021-09-03] MEDS ORDERED: POTASSIUM PHOSPHATE INJ 15 MMOL in D5W 250 ML IV ONE (20:00)
[2021-09-03] MEDS ORDERED: CEFEPIME HCL 1 GM in D5W MINI-BAG PLUS 50 ML IV SCH (20:00)
[2021-09-03] MEDS: CEFEPIME HCL 2 GM in D5W MINI-BAG PLUS 50 ML IV SCH (20:15)
[2021-09-03] MEDS: ASCORBIC ACID 250 MG TAB PO SCH (20:15)
[2021-09-03] MEDS: VITAMIN D 1,000 INTERNATIONAL UNITS TABLET PO SCH (20:15)
[2021-09-03] MEDS ORDERED: **NOTE PATIENT COMMENT** MISC XX SCH (21:00)
--- NOTE | 2021-09-03 21:10 | IPN ---
NEPHROLOGY PROGRESS NOTE DATE: 09/03/2021 SUBJECTIVE: I saw Christina this morning at the bedside in the Intensive Care Unit. She continues to do poorly. She has been on CRRT and on Levophed pressor support currently at 10 mcg. She is in considerable fluid overload. We are going to try and remove fluids with her continuous dialysis today. There has still not been any finalized decision in terms of transplant to a liver center. She is becoming increasingly thrombocytopenic on laboratory studies, and I also noticed an increasing coagulopathy with rising INR. The patient denies abdominal pain, denies chest pain, denies shortness of breath at rest. OBJECTIVE: PHYSICAL EXAMINATION: VITAL SIGNS: Temperature 97.0, pulse 80, respiratory rate 12, blood pressure 98.53, saturating 98% on room air. INTAKE AND OUTPUT: Intake yesterday was 2 liters. Urine output was only 20 mL. There were four bowel movements. Weight in the bed scale today was 95.9 kg. GENERAL APPEARANCE: The patient is seen in the ICU lying in bed, head of the bed elevated. She appears chronically ill and fatigued but in no acute distress. HEENT: The extraocular muscles are intact. Sclerae are anicteric. Tongue is moist. NECK: Supple. Jugular veins are elevated. There is a tunneled hemodialysis catheter in the right chest wall which is presently in use. HEART: Sounds are regular, S1, S2. There is 3+ edema in the lower extremities which comes up to the hips and the abdominal flanks. LUNGS: Anterior auscultation only still fairly clear. No crackles. ABDOMEN: Soft and distended moderately. She does not grimace to palpation. GENITOURINARY: Teixeira catheter with minimal urine. EXTREMITIES: Cool to touch. SKIN: Generalized pallor. INPATIENT MEDICATIONS: The patient has received calcium gluconate supplementation, potassium chloride supplementation, potassium phosphate supplementation. She is on Vancomycin. She is on Cefepime. She is on Ciprofloxacin. The Primary Team has broadened her antimicrobial regimen. She continues on insulin, Lactulose, Levothyroxine, Oxycodone, Protonix, Rifaximin, Carafate, Zanaflex and vitamin D. PROBLEMS: 1. Oligoanuric renal failure in this patient with severe hypotension - most likely hepatorenal syndrome (although the Primary Team is also repeating infectious workup and has broadened her antimicrobials). The patient is on Levophed pressor support at 10 mcg. She remains oligoanuric. She is on CRRT. She is in considerable fluid overload. We are going to try and remove fluid with dialysis today. Parameters are written dependent on her pressor requirement. 2. Severe hypotension / shock superimposed on chronic hypotension - The patient is chronically on Midodrine 15 mg three times daily as an outpatient. Her chronic hypotension is secondary to cirrhosis. On this admission she initially had a significant GI bleed (requiring 10 units PRBC), but then did stabilize. However thereafter she became increasingly hypotensive and had oliguric renal failure which I felt was secondary to hepatorenal syndrome. She was started on CRRT as a bridge to transplant. We did get an echocardiogram to exclude any other cause of worsening hypotension. There was no pericardial effusion. The patient has known diastolic dysfunction. The Primary Team has also started her on broad spectrum antimicrobials and is repeating an infectious workup in order to cover for all possibilities of worsening shock. Continue pressor support and titrate Levophed for a MAP of 65. 3. Fluid overload in this patient with non-alcoholic steatohepatitis cirrhosis, oligoanuric renal failure and diastolic congestive heart failure - orders are written for fluid removal with CRRT today which will vary dependent on her pressor requirements. Although she is in considerable fluid overload, she is still saturating well on room air. 4. Worsening thrombocytopenia, worsening coagulopathy, ongoing oligoanuric renal failure, recurrent hepatic encephalopathy, history of recurrent GI bleeds all complicate the patient's care. 5. Disposition the patient's prognosis is very poor. I think it is unlikely she will survive this hospitalization. All efforts are being made to see if she would be a candidate for a liver transplant evaluation. BRIAN
[2021-09-04] VITALS (12 sets, daily range): BP systolic 82–106; BP diastolic 42–56
[2021-09-04] MEDS: LACTULOSE 20 GM/30 ML SYRUP UD NG SCH ×4 (00:04→12:19)
[2021-09-04 03:48] LABS: HEMATOCRIT 25.2 % (36.0-47.0); HEMOGLOBIN 8.1 g/dl (12.0-15.5); MEAN CORPUSCULAR HEMOGLOBIN 30.7 pg (27.0-33.0); MEAN CORPUSCULAR HGB CONC 32.1 g/dl (32.0-36.5); MEAN CORPUSCULAR VOLUME 95.5 fl (80.0-96.0); RED BLOOD COUNT 2.64 10^6/uL (4.00-5.40); WHITE BLOOD COUNT 7.5 10^3/uL (4.0-10.0)
[2021-09-04 03:51] LABS: PLATELET COUNT, AUTOMATED 71 10^3/uL (150-450)
[2021-09-04 04:20] LABS: ALBUMIN 1.8 GM/DL (3.2-5.2); BILIRUBIN,TOTAL 1.7 MG/DL (0.2-1.0); CALCIUM LEVEL 7.4 MG/DL (8.8-10.2); CREATININE FOR GFR 1.87 MG/DL (0.55-1.30); GLOMERULAR FILTRATION RATE 28.9 (>45); MAGNESIUM LEVEL 2.4 MG/DL (1.8-2.4); PHOSPHORUS LEVEL 2.5 MG/DL (2.5-4.9); TOTAL PROTEIN 5.2 GM/DL (6.4-8.2); VANCOMYCIN RANDOM 7.5 UG/ML
[2021-09-04] MEDS: OCTREOTIDE ACETATE 100MCG/ML VIAL **IV ADMINISTRATION ONLY IV SCH (05:09)
[2021-09-04] MEDS: LEVOTHYROXINE 25MCG TABLET (0.025MG) PO SCH (05:09)
[2021-09-04] MEDS: CIPROFLOXACIN 500MG TABLET PO SCH (05:09)
[2021-09-04] MEDS: oxyCODONE 5MG TAB PO PRN (05:14)
[2021-09-04] MEDS ORDERED: VANCOMYCIN HCL 1,000 MG, VIAL MATE ADAPTER 1 EACH in NS 250 ML IV SCH (06:00)
[2021-09-04] MEDS: PROMETHAZINE INJ 25 MG/ML VIAL (J2550) IV PRN (07:26)
[2021-09-04] MEDS: rifAXIMin 550 MG TAB (XIFAXAN) PO SCH (08:07)
[2021-09-04] MEDS: PANTOPRAZOLE 40MG VIAL (C9113 PER 1) IV SCH (08:07)
[2021-09-04] MEDS: SUCRALFATE 1 GM TAB PO SCH ×2 (08:07→12:00)
[2021-09-04] MEDS: HumaLOG INSULIN (NovoLOG) PER UNIT SC SCH ×2 (08:08→11:58)
[2021-09-04] MEDS: LIDOCAINE 5% (LIDODERM) PATCH TD SCH (08:08)
[2021-09-04] MEDS: CEFEPIME HCL 2 GM in D5W MINI-BAG PLUS 50 ML IV SCH (08:50)
[2021-09-04] MEDS: NOREPINEPHRINE BITARTRATE 16 MG in D5W 484 ML IV SCH ×3 (08:56→11:31)
[2021-09-04] MEDS ORDERED: VANCOMYCIN HCL 500 MG in D5W MINI-BAG PLUS 100 ML IV SCH (09:00)
[2021-09-04 10:54] LABS: HEMATOCRIT 25.5 % (36.0-47.0); HEMOGLOBIN 8.1 g/dl (12.0-15.5); MEAN CORPUSCULAR HEMOGLOBIN 30.3 pg (27.0-33.0); MEAN CORPUSCULAR HGB CONC 31.8 g/dl (32.0-36.5); MEAN CORPUSCULAR VOLUME 95.5 fl (80.0-96.0); RED BLOOD COUNT 2.67 10^6/uL (4.00-5.40); WHITE BLOOD COUNT 10.3 10^3/uL (4.0-10.0)
[2021-09-04 10:55] LABS: PLATELET COUNT, AUTOMATED 69 10^3/uL (150-450)
[2021-09-04] MEDS ORDERED: SODIUM CHLORIDE 0.9% INJ 10 ML SYR IV PRN (11:10)
[2021-09-04 11:21] LABS: CALCIUM LEVEL 7.6 MG/DL (8.8-10.2); CREATININE FOR GFR 1.65 MG/DL (0.55-1.30); GLOMERULAR FILTRATION RATE 33.3 (>45); MAGNESIUM LEVEL 2.5 MG/DL (1.8-2.4); POTASSIUM SERUM 4.3 MEQ/L (3.5-5.1)
[2021-09-04] MEDS: CALCIUM GLUCONATE 1,000 MG in NS 100 ML IV SCH ×2 (12:19→13:00)
[2021-09-04] MEDS ORDERED: SODIUM PHOSPHATE INJ 30 MMOL in D5W 500 ML IV ONE (14:00)
[2021-09-04] MEDS ORDERED: LORazepam 2 MG/ML VIAL IV PRN (15:10)
[2021-09-04] MEDS ORDERED: SCOPOLAMINE 1MG TRANSDERMAL PATCH TOP PRN (15:10)
[2021-09-04] MEDS ORDERED: ONDANSETRON 4MG/2ML VIAL IV PRN (15:10)
[2021-09-04] MEDS ORDERED: ACETAMINOPHEN 650 MG SUPP PR PRN (15:10)
--- NOTE | 2021-09-04 15:20 | IPNPDOC ---
Date Seen The patient was seen on 09/04/21. Progress Note SUBJECTIVE: The patient remained hypothermic, creatinine remained essentially similar to 09/03/2021 despite CRRT. The patient was increasingly confused and later somnolent when assessed by myself. Her son and healthcare proxy Juan came to see her today and level of care was advanced to comfort measures only. MOLST form was filled out at the bedside. OBJECTIVE: Physical Examination: VS: please see below General: Lying in bed, obtunded with mouth open Head/Neck/Throat: Trachea midline, mucous membranes dry Eyes: Sclera anicteric, no erythema or discharge appreciated bilaterally Thorax: Normal respiratory effort on room air, bibasilar crackles appreciated Cardiovascular: Irregularly irregular, normal S1, S2, 2+-+3 lower extremity edema up to lower abd CHEST: permacath in right upper chest Abdomen: Bowel sounds present,very distended, tense abdomen, tender to palpation Genitourinary: No CVA tenderness, Teixeira with minimal amount of laina urine Skin: Warm, dry, generalized pallor Neurologic: not responsive to verbal stimuli, only to painful ASSESSMENT: 66-year-old female with extensive past medical history including chronic renal disease, liver disease admitted for hepatic encephalopathy, GI bleed and worsening hepatorenal syndrome. MAde MATHEMATICS INSTRUCTOR today by HCP and son, Juan Ngo. DIAGNOSES AT TIME OF MAKING MATHEMATICS INSTRUCTOR: #Hypotension likely 2/2 to worsening hepatorenal syndrome #Encephalopathy 2/2 to hepatorenal syndrome #Hypothermia r/o sepsis/infection #Non-alcoholic liver cirrhosis with worsening hepatorenal syndrome, not a transplant candidate currently #AIDA on CKD stage stage 4 #Fluid overload in the setting of cirrhosis with ascites, hypoalbuminemia ( albumin 1.5) and diastolic congestive heart failure #GI bleed #Anemia in the setting of recent upper GI bleed #Thrombocytopenia #Diastolic CHF #Electrolyte abnormality (hyponatremia, hypochloridemia)likely 2/2 to hepatorenal syndrome #Lactic acidosis 2/2 to worsening kidney failure #Type 2 diabetes mellitus #Acute L1 compression fracture #Hypothyroidism DISPOSITION: Made MATHEMATICS INSTRUCTOR today by HCP. Nursing notified spouse Nena. Will likely turn off all support when family at bedside. TOTAL AMOUNT OF ICU TIME MANAGING PATIENT: 70 MINS VS, I&O, 24H, Fishbone Vital Signs/I&O Vital Signs Date Time Temp Pulse Resp B/P (MAP) Pulse Ox O2 Delivery O2 Flow Rate FiO2 09/04/21 11:00 95.5 72 12 87/52 (64) 96 Room Air 08/31/21 18:13 2.0 96 I&O- Last 24 Hours up to 6 AM 09/04/21 05:59 Intake Total 1944.7 ml Output Total 4 ml Balance 1940.7 ml Laboratory Data 24H LABS Laboratory Tests 2 09/03/21 16:51: Lactic Acid Level 3.3*H 09/03/21 17:54: Bedside Glucose (Misc Panel) 168H 09/03/21 18:27: Nucleated Red Blood Cells % (auto) 0.0, Anion Gap 7L, Glomerular Filtration Rate 25.5L, Calcium Level 7.6L, Whole Blood Ionized Calcium 4.6, Phosphorus Level 2.2L, Magnesium Level 2.4, Ammonia 85H 09/03/21 20:59: Bedside Glucose (Misc Panel) 155H 09/04/21 03:30: Nucleated Red Blood Cells % (auto) 0.0, Anion Gap 6L, Glomerular Filtration Rate 28.9L, Calcium Level 7.4L, Phosphorus Level 2.5, Magnesium Level 2.4, Total Bilirubin 1.7H, Aspartate Amino Transf (AST/SGOT) 51H, Alanine Aminotransferase (ALT/SGPT) 22, Alkaline Phosphatase 204H, Ammonia 47H, Total Protein 5.2L, Albumin 1.8L, Albumin/Globulin Ratio 0.5L, Random Vancomycin Level 7.5 09/04/21 04:40: Whole Blood Ionized Calcium 4.4L 09/04/21 08:33: Lactic Acid Level 3.7*H, Methicillin-Resist S.aureus DNA PCR NOT DETECTED 09/04/21 10:31: Nucleated Red Blood Cells % (auto) 0.0, Immature Platelet Fraction 5.6 09/04/21 10:32: Anion Gap 6L, Glomerular Filtration Rate 33.3L, Calcium Level 7.6L, Whole Blood Ionized Calcium 4.3L, Phosphorus Level 2.0L, Magnesium Level 2.5H 09/04/21 11:54: Bedside Glucose (Misc Panel) 167H CBC/BMP Laboratory Tests 09/03/21 18:27 09/04/21 03:30 09/04/21 10:31 09/04/21 10:32 Microbiology Microbiology 09/03/21 Blood Culture, Received Pending 09/03/21 Blood Culture, Received Pending Meghana Negro MD Sep 04, 2021 15:19
[2021-09-04] MEDS: MORPHINE 2 MG/ML 1ML VIAL (J2270) IV PRN ×3 (15:38→22:31)
--- NOTE | 2021-09-04 16:28 | IPN ---
CRITICAL CARE PROGRESS NOTE DATE: 09/04/2021 SUBJECTIVE: Ms. Ngo is seen this morning on her bedside. She remains on CRRT due to anuric renal failure and hypotension. Nursing staff reports that her blood pressure has been persistently low and now she is on 14 mcg of Levophed. Nursing staff also reports that she did eat some breakfast this morning, however currently she is difficult to arouse. She did have some loose stools, but urine output has been minimal. PHYSICAL EXAMINATION: VITAL SIGNS: Her rectal temperature 95.4 degrees Fahrenheit, heart rate 72 per minute, respiratory rate 12 per minute, blood pressure 86/51 mmHg with 14 mcg of Levophed and oxygen saturation 95% on room air. HEENT: Head is atraumatic. She has significant facial fat loss. Neck veins are difficult to be assessed. HEART: Heart sounds are regular and without a pericardial friction rub. LUNGS: Diminished breath sounds at bases. ABDOMEN: Obese, distended with large amount of ascites. Bowel sounds are present. EXTREMITIES: Without cyanosis or clubbing. Lower extremity edema is at least 4+. NEUROLOGIC: She is difficult to arouse. I was able to wake her up, however, she fell asleep very quickly. LABORATORY DATA: Today's labs show WBC 10.3, hemoglobin 8.1, hematocrit 25.5, platelets 69,000. Sodium 135, potassium 4.3, CO2 25, BUN 13, creatinine 1.65, glucose 188 and calcium 7.6. Phosphorus 2.0 and magnesium 2.5. Ionized calcium 4.3. PROBLEMS: 1. Anuric renal failure: She has hepatorenal syndrome. She is now hypotensive with possible sepsis. She is currently on CRRT and not doing very well. We will continue our efforts to maintain CRRT with pressors until family is able to make a decision about comfort care. Patient has poor prognosis and kidney function is not likely to improve as she has underlying cause as hepatic failure and is not felt to be suitable for liver transplant anymore due to requiring pressors and sepsis. 2. Cirrhosis of liver with recurrent ascites: Patient has massive ascites and significant peripheral edema. Her serum albumin level only 1.8. She is not felt to be suitable for liver transplant anymore due to requiring significant amount of pressors and possible sepsis. Unfortunately, her prognosis remains poor. 3. Anemia: She has a history of recent massive GI bleed. At present, anemia is stable and there is no urgent need for a transfusion. She is likely to require further transfusion though. 4. Sepsis: Patient is persistently hypotensive and requiring increasing dose of pressors. Even prior to this admission, she was on Midodrine. She is receiving antibiotics, however, her blood pressure remains low. Overall, her prognosis remains poor. I have discussed with the hospitalist service, who is going to discuss with patient's son later today and try to make a final decision about possible DNR and comfort care. I do not feel that patient is likely to recover from multi-organ failure and septic shock requiring high-dose pressors. NOTE: 36-minutes of critical care time spent, during which no procedures were performed.
[2021-09-04] MEDS ORDERED: MORPHINE 2 MG/ML 1ML VIAL (J2270) IV ONE (16:30)
[2021-09-04] MEDS: ATROPINE SULFATE 1% OP SOLN 2 ML BTL SL PRN ×2 (18:49→22:09)
[2021-09-05] MEDS: ATROPINE SULFATE 1% OP SOLN 2 ML BTL SL PRN ×2 (06:03→09:46)
[2021-09-05] MEDS: MORPHINE 2 MG/ML 1ML VIAL (J2270) IV PRN (09:46)
--- NOTE | 2021-09-05 18:16 | DS.PDOC ---
Discharge Summary General Date of Admission Aug 10, 2021 at 15:33 Date of Discharge 09/05/21 Attending Physician: Meghana Negro MD Discharge Summary THIS IS A SUMMARY HISTORY OF PRESENT ILLNESS: Patient is a 66-year-old female who presented to the emergency department today after her said that she was more confused than normal. Patient's been complaining of abdominal pain as well as chills. Patient states that she has pain in the lower right quadrant of her abdomen. Patient also says her abdomen feels more distended than it usually does. Patient had a scheduled blood transfusion yesterday as her hemoglobin in her nephrology office was quite low. Patient says that she has been feeling ill since then. Patient's been having chills. Patient denies any fevers. Patient was acting slightly more confused according to her who I spoke on the phone with so she was sent into the hospital. Patient was admitted to medicine service for further care. HOSPITAL COURSE: Please see under "Plan" below PAST MEDICAL HISTORY: 1. Akins cirrhosis. 2. Obesity. 3. History of hepatic encephalopathy. 4. Hypertension 5. Type 2 diabetes with neuropathy 6. Esophageal varices PAST SURGICAL HISTORY: 1. Bilateral cataract removal. 2. Tonsillectomy . 3. EGD with esophageal varices banding. 4. Cardiac stent 5. Cholecystectomy 6. Right TKA 7. Right ankle ORIF 8. Colonoscopy 9. Multiple paracentesis SOCIAL HISTORY: Patient denies smoking, drinking alcohol, or illicit drug use. FAMILY HISTORY: Mother had a history of atrial fibrillation and diabetes mellitus ALLERGIES: Please see below. SUBJECTIVE: The patient remained hypothermic, creatinine remained essentially similar to 09/03/2021 despite CRRT. The patient was increasingly confused and later somnolent when assessed by myself. Her son and healthcare proxy Juan came to see her today and level of care was advanced to comfort measures only. MOLST form was filled out at the bedside. OBJECTIVE: Physical Examination: VS:None General: Lying in bed, mouth open Head/Neck/Throat: Trachea midline, mucous membranes dry Eyes: Sclera anicteric, no erythema or discharge appreciated bilaterally Thorax: no respiratory effort Cardiovascular: Irregularly irregular, normal S1, S2, 2+-+3 lower extremity edema up to lower abd CHEST: permacath in right upper chest Abdomen: distended, tense abdomen Genitourinary: Teixeira with minimal amount of laina urine Skin: Warm, dry, generalized pallor Neurologic: not responsive ASSESSMENT: 66-year-old female with extensive past medical history including chronic renal disease, liver disease admitted for hepatic encephalopathy, GI bleed and worsening hepatorenal syndrome. MAde TITLE CURATIVE SPECIALIST today by HCP and son, Juan Ngo. DIAGNOSES AT TIME OF : #Hypotension likely 2/2 to worsening hepatorenal syndrome #Encephalopathy 2/2 to hepatorenal syndrome #Hypothermia r/o sepsis/infection #Non-alcoholic liver cirrhosis with worsening hepatorenal syndrome, not a transplant candidate currently #AIDA on CKD stage stage 4 #Fluid overload in the setting of cirrhosis with ascites, hypoalbuminemia (albumin 1.5) and diastolic congestive heart failure #GI bleed #Anemia in the setting of recent upper GI bleed #Thrombocytopenia #Diastolic CHF #Electrolyte abnormality (hyponatremia, hypochloridemia)likely 2/2 to hepatorenal syndrome #Lactic acidosis 2/2 to worsening kidney failure #Type 2 diabetes mellitus #Acute L1 compression fracture #Hypothyroidism TIME SPENT ON DISCHARGE: 35 minutes. Vital Signs/I&Os Vital Signs Date Time Temp Pulse Resp B/P (MAP) Pulse Ox O2 Delivery O2 Flow Rate FiO2 09/04/21 11:00 95.5 72 12 87/52 (64) 96 Room Air 08/31/21 18:13 2.0 96 I&O- Last 24 Hours up to 6 AM 09/05/21 06:00 Intake Total 441.2 ml Output Total 326 ml Balance 115.2 ml Microbiology Microbiology 09/03/21 Blood Culture - Preliminary, Resulted No growth after 24 hours . All specim... 09/03/21 Blood Culture - Preliminary, Resulted No growth after 24 hours . All specim... Discharge Medications Scheduled Allopurinol (Allopurinol) 100 Mg Tablet, 100 MG PO QHS, (Reported) Ascorbic Acid (Vitamin C) 250 Mg Tablet, 250 MG PO QHS, (Reported) Cholecalciferol (Vitamin D3) (Vitamin D3) 1,000 Unit Tablet, 1,000 UNITS PO QHS, (Reported) Gabapentin (Gabapentin) 100 Mg Capsule, 100 MG PO BID, (Reported) Insulin Human Lispro (Novolog) 100 U/Ml Inj, 1 DOSE SC AC, (Reported) PER SLIDING SCALE Lactulose (Constulose) 10 Gm/15 Ml Solution, 30 ML PO QID, (Reported) Levothyroxine Sodium (Levothyroxine Sodium) 25 Mcg Tablet, 25 MCG PO DAILY, (Reported) Magnesium Oxide (Magnesium Oxide) 400 Mg Tablet, 400 MG PO TID, (Reported) Midodrine HCl (Midodrine HCl) 10 Mg Tablet, 15 MG PO TID, (Reported) Omeprazole (Omeprazole) 40 Mg Capsule.dr, 40 MG PO QHS, (Reported) Rifaximin (Xifaxan) 550 Mg Tablet, 550 MG PO BID, (Reported) Spironolactone (Spironolactone) 50 Mg Tablet, 50 MG PO QHS, (Reported) Sucralfate (Sucralfate) 1 Gm Tablet, 1 GM PO ACHS, (Reported) Torsemide (Torsemide) 20 Mg Tablet, 20 MG PO BID, (Reported) Scheduled PRN Tizanidine HCl (Tizanidine HCl) 4 Mg Tablet, 4 MG PO TID PRN for SPASMS, (Reported) Allergies Coded Allergies: No Known Drug Allergies (Verified Allergy, Unknown, 01/19/21) Meghana Negro MD Sep 05, 2021 18:16
== END 2021-09-05 10:20 | disposition expired | DRG 673 ==
LOC: M ED 09:45 → M ED INP 15:33 → ENRESERV 19:50 → M MSPAV 21:51 → M PCU 08-19 13:14 → M MSPAV 09-04 18:17
PROVIDERS: ADMIT Family Medicine; ATTEND Internal Medicine
PROC: 0W9G3ZX Drainage of Peritoneal Cavity, Percutaneous Approach, Diagnostic (ICD-10-PCS; 2021-08-10)
PROC: 30233N1 Transfusion of Nonautologous Red Blood Cells into Peripheral Vein, Percutaneous Approach (ICD-10-PCS; 2021-08-12)
PROC: 30233J1 Transfusion of Nonautologous Serum Albumin into Peripheral Vein, Percutaneous Approach (ICD-10-PCS; 2021-08-16)
PROC: 02H633Z Insertion of Infusion Device into Right Atrium, Percutaneous Approach (ICD-10-PCS; 2021-08-17)
PROC: 0JH63XZ Insertion of Tunneled Vascular Access Device into Chest Subcutaneous Tissue and Fascia, Percutaneous Approach (ICD-10-PCS; principal; 2021-08-17 10:30)
PROC: 5A1D70Z Performance of Urinary Filtration, Intermittent, Less than 6 Hours Per Day (ICD-10-PCS; 2021-08-18)
PROC: 02HV33Z Insertion of Infusion Device into Superior Vena Cava, Percutaneous Approach (ICD-10-PCS; 2021-08-19)
PROC: 0W3P8ZZ Control Bleeding in Gastrointestinal Tract, Via Natural or Artificial Opening Endoscopic (ICD-10-PCS; 2021-08-19)
PROC: 0W9G3ZZ Drainage of Peritoneal Cavity, Percutaneous Approach (ICD-10-PCS; 2021-08-20)
PROC: 30233K1 Transfusion of Nonautologous Frozen Plasma into Peripheral Vein, Percutaneous Approach (ICD-10-PCS; 2021-08-23)
PROC: 5A1D90Z Performance of Urinary Filtration, Continuous, Greater than 18 hours Per Day (ICD-10-PCS; 2021-09-03)
DX: N17.9 Acute kidney failure, unspecified (principal); K76.7 Hepatorenal syndrome; K31.811 Angiodysplasia of stomach and duodenum with bleeding; A41.9 Sepsis, unspecified organism; R65.21 Severe sepsis with septic shock; I50.32 Chronic diastolic (congestive) heart failure; R18.8 Other ascites; E87.1 Hypo-osmolality and hyponatremia; D62 Acute posthemorrhagic anemia; E72.20 Disorder of urea cycle metabolism, unspecified; E87.2 Acidosis; D68.4 Acquired coagulation factor deficiency; A04.0 Enteropathogenic Escherichia coli infection; S32.010A Wedge compression fracture of first lumbar vertebra, initial encounter for closed fracture; Z51.5 Encounter for palliative care; Z66 Do not resuscitate; K75.81 Nonalcoholic steatohepatitis (NASH); K74.69 Other cirrhosis of liver; E66.9 Obesity, unspecified; I12.9 Hypertensive chronic kidney disease with stage 1 through stage 4 chronic kidney disease, or unspecified chronic kidney disease; N18.4 Chronic kidney disease, stage 4 (severe); K72.90 Hepatic failure, unspecified without coma; E11.22 Type 2 diabetes mellitus with diabetic chronic kidney disease; E11.65 Type 2 diabetes mellitus with hyperglycemia; K64.8 Other hemorrhoids; E88.09 Other disorders of plasma-protein metabolism, not elsewhere classified; K64.4 Residual hemorrhoidal skin tags; D69.59 Other secondary thrombocytopenia; I95.89 Other hypotension; R68.0 Hypothermia, not associated with low environmental temperature; E87.8 Other disorders of electrolyte and fluid balance, not elsewhere classified; E11.40 Type 2 diabetes mellitus with diabetic neuropathy, unspecified; Z98.41 Cataract extraction status, right eye; Z98.42 Cataract extraction status, left eye; Z95.5 Presence of coronary angioplasty implant and graft; Z96.651 Presence of right artificial knee joint; Z87.81 Personal history of (healed) traumatic fracture; E87.5 Hyperkalemia; Z20.822 Contact with and (suspected) exposure to COVID-19; Z79.4 Long term (current) use of insulin; Z79.899 Other long term (current) drug therapy; W18.09XA Striking against other object with subsequent fall, initial encounter; Y99.8 Other external cause status; Y92.231 Patient bathroom in hospital as the place of occurrence of the external cause; Y93.E8 Activity, other personal hygiene; Z68.30 Body mass index [BMI] 30.0-30.9, adult